=== PATIENT | female | born 1960 | race Caucasian/White ===

== ENCOUNTER 2020-03-07 19:37 | Emergency (ER) | payer MEDICAID, SELFPAY ==
[2020-03-07 19:43] VITALS: BP 114/60; PULSE 74; RESP 16; TEMP 37; O2SAT 99; BMI 37.4
--- NOTE | 2020-03-07 20:03 | ED_ITS ---
HPI - General Adult General Chief complaint: General Medical Stated complaint: SOB,HOT FLASHES,BACK PAIN Time Seen by Provider: 03/07/20 20:02 Source: patient Mode of arrival: ambulatory Limitations: no limitations History of Present Illness HPI narrative: patient with no significant past medical history no recent COVID exposure history of mild asthma and fibromyalgia without any cardiac issues complaining of shortness of breath for last Lovenox shortness of breath is very subjective saturating 98% at room air on arrival also complaining of upper back pain. Patient was in not any distress patient denies any cough /fever/chills Related Data Allergies Allergy/AdvReac Type Severity Reaction Status Date / Time morphine [MORPHINE] Allergy Intermediate PALPITATIONS, Unverified 01/27/20 16:39 tachicardia quetiapine [Seroquel] Allergy Unknown Verified 04/21/19 00:00 orphenadrine [ORPHENADRINE] AdvReac Intermediate RAPID Unverified 01/27/20 16:39 HEART RATE From SEROQUEL Allergy Intermediate ANXIOUS Uncoded 01/27/20 16:39 Pt states no food allergies Allergy Unknown Uncoded 09/29/18 00:00 Review of Systems Review of Systems: REVIEW OF SYSTEMS: Pertinent positives and negatives are stated above in the history. GEN: no fevers, chills, fatigue HEENT: no nasal congestion, sore throat, ear pain NEURO: no headache no focal weakness CV: no chest pain, palpitations, LE edema ABD: no abdominal pain, nausea, vomiting, diarrhea : no dysuria, urgency, frequency SKIN: no rash ROS otherwise negative x 10 PMFSH Past Medical History Medical History Asthma Depression Diabetes 1.5, managed as type 2 Fibromyalgia Surgical History Gastric bypass status for obesity Social History Social History Advance Directives: No Advance Directives Information Provided: No Physical Exam Vital Signs: Vital Signs: Vital Signs Temp Pulse Resp BP Pulse Ox 03/07/20 19:43 98.6 F 74 16 114/60 99 Body Mass Index 37.4 VITAL SIGNS: Reviewed. GENERAL: Well developed, well nourished, in no acute distress. HEAD: Normocephalic/atraumatic, Posterior oropharynx was without edema, erythema or exudate. EYES: PERRLA, EOMI intact without pain, no nystagmus/pallor/icterus noted EARS: Ext canals without abnormality, TMs non-bulging and non-erythematous NOSE: Nares patent bilateral OROPHARYNX: no oral lesions noted, posterior pharynx clear and non-erythematous without noted tonsillar enlargement/erythema/exudates NECK: Supple, no adenopathy LUNGS: Normal breath sounds. No adventitious sounds or accessory muscle use CARDIOVASCULAR: Regular rate and rhythm without noted murmurs, no JVD or lower extremity edema. ABDOMEN: Soft, non-tender, non-distended with bowel sounds. No rigidity. No guarding. No palpable masses or hernias noted MUSCULOSKELETAL: No tenderness, deformities, or effusions noted on gross inspection. EXTREMITIES: No cyanosis, clubbing or edema. SKIN: Inspection of the skin reveals no rashes, ulcerations, jaundice, pallor, or petechiae NEUROLOGIC: Alert and oriented x 3. Strength and sensation to light touch were grossly intact x 4. Course Course Course Narrative: patient lungs clear workup is negative chest x-ray negative for any fluid or infiltrate. COVID-19 was done will discharge patient home likely stable asthma with anxiety Medical Decision Making Lab Data Result diagrams: 03/07/20 21:26 03/07/20 21:26 Labs: Lab Results 03/07/20 03/07/20 03/07/20 Range/Units 21:26 21:26 21:27 WBC 7.6 (4.8-10.8) X10*3/uL RBC 4.14 L (4.20-5.50) X10*6/uL Hgb 11.1 L (12.0-16.0) g/dl Hct 35.8 L (37-47) % MCV 86.5 (80-98) fL MCH 26.8 L (27.0-33.0) pg MCHC 31.0 (31.0-35.0) g/dl RDW 15.3 (11.0-16.0) % Plt Count 209 (160-400) X10*3/uL MPV 10.3 (9.4-12.3) fL Immature Gran % (Auto) 0.7 H (0.0-0.4) % Neut % (Auto) 56.9 (45-73) % Lymph % (Auto) 32.9 (20-40) % [place] % (Auto) 7.7 (2-11) % Eos % (Auto) 1.5 (0-4) % Baso % (Auto) 0.3 (0-2) % Lymph # (Auto) 2.5 (1.2-4.9) X10*3/uL [place] # (Auto) 0.6 (0.1-1.2) X10*3/uL Eos # (Auto) 0.1 (0.0-0.4) X10*3/uL Baso # (Auto) 0.0 (0.0-0.2) X10*3/uL Abs Immat Gran (auto) 0.05 H (0.00-0.03) X10*3/uL Absolute Neuts (auto) 4.3 (2.0-8.3) X10*3/uL Absolute Nucleated RBC 0.000 (0.0-0.012) X10*3/uL Nucleated RBC % (auto) 0.0 (0.0-0.2) /100WBC Sodium 140 (135-145) mmol/L Potassium 4.8 (3.3-5.1) mmol/l Chloride 103 (96-108) mmol/L Carbon Dioxide 28 (22-29) mmol/L Anion Gap 14 (12-20) BUN 16 (9-16) mg/dL Creatinine 0.81 (0.5-1.4) mg/dL Estim Creat Clear Calc 89.6 Estimated GFR > 60 Random Glucose 85 (60-115) mg/dL Calcium 8.2 L (8.4-10.2) mg/dL B-Natriuretic Peptide < 10 (<100) pg/mL Discharge Plan Discharge Clinical Impression: Asthma Patient Disposition: Home, Self-Care Instructions: Asthma (ED) Additional Instructions: continue your inhaler and rest at home. We did COVID-19 testing new report will come and 2-3 days and will inform you, keep social distancing for now Interventions: ED Discharge Assessment Last Done: 03/07/20 22:18 Discharge Date/Time: 03/07/20 22:19
--- NOTE | 2020-03-07 20:11 | XR_ITS ---
EXAMINATION: XR CHEST CLINICAL INFORMATION: Shortness of breath COMPARISON: 02/08/2020 TECHNIQUE: Frontal view of the chest was obtained. FINDINGS: Again seen is some minimal atelectasis left lung base along with anterior cervical fusion. No other significant abnormality is noted involving the heart, lungs, mediastinum, bony thorax or soft tissues. XR/XR chest 1V IMPRESSION: No acute intrathoracic disease
[2020-03-07 21:34] LABS: MANUAL DIFF FLAG NO
[2020-03-07 21:35] LABS: Basophils Percent Auto 0.3 % (0-2); Eosinophils Absolute Auto 0.1 X10*3/uL (0.0-0.4); Eosinophils Percent Auto 1.5 % (0-4); Hematocrit 35.8 % (37-47); Hemoglobin 11.1 g/dl (12.0-16.0); Imm Gran Abs Auto 0.05 X10*3/uL (0.00-0.03); Imm Gran Pct Auto 0.7 % (0.0-0.4); Lymphocytes Absolute Auto 2.5 X10*3/uL (1.2-4.9); Lymphocytes Percent Auto 32.9 % (20-40); Mean Corpuscular Hemoglobin 26.8 pg (27.0-33.0); Mean Corpuscular Volume 86.5 fL (80-98); Mean Platelet Volume 10.3 fL (9.4-12.3); Monocytes Absolute Auto 0.6 X10*3/uL (0.1-1.2); Monocytes Percent Auto 7.7 % (2-11); Neutrophils Absolute Auto 4.3 X10*3/uL (2.0-8.3); Neutrophils Percent Auto 56.9 % (45-73); Platelet Count 209 X10*3/uL (160-400); Red Blood Count 4.14 X10*6/uL (4.20-5.50); Red Cell Distribution Width 15.3 % (11.0-16.0); White Blood Count 7.6 X10*3/uL (4.8-10.8)
[2020-03-07 21:59] LABS: Anion Gap 14 (12-20); Blood Urea Nitrogen 16 mg/dL (9-16); Calcium 8.2 mg/dL (8.4-10.2); Carbon Dioxide 28 mmol/L (22-29); Chloride 103 mmol/L (96-108); Creatinine Clr Calc Pharmacy 89.6; Estimated Glomerular Filt Rate > 60; Glucose Random 85 mg/dL (60-115); Potassium 4.8 mmol/l (3.3-5.1); Sodium 140 mmol/L (135-145)
[2020-03-07 22:08] LABS: B Type Natriuretic Peptide < 10 pg/mL (<100)
== END 2020-03-07 22:19 | disposition home or self-care (01) ==
PROVIDERS: Emergency Provider Internal Medicine
DX: J45.909 Unspecified asthma, uncomplicated (principal); M54.5 Low back pain; M79.7 Fibromyalgia; Z20.828 Contact with and (suspected) exposure to other viral communicable diseases; Z79.899 Other long term (current) drug therapy
CPT/HCPCS: 36415; 71045; 80048; 83880; 85025; 87635; 99283

== ENCOUNTER 2020-03-21 15:41 | Outpatient (REF) | payer MEDICAID, SELFPAY ==
--- NOTE | 2020-03-21 15:47 | MM_ITS ---
EXAMINATION: MM SCREENING DIGITAL BREAST TOMOSYNTHESIS, BILATERAL CLINICAL INFORMATION: Screening. Asymptomatic. The lifetime risk of breast cancer based on the Tyrer-Cuzick Model is 7%. COMPARISON: Mammography: 02/11/2019, 01/20/2018 TECHNIQUE: Digital breast tomosynthesis is performed in both the craniocaudal and mediolateral oblique views along with computer-aided detection (CAD). Synthesized 2D images are generated from the tomosynthesis. FINDINGS: The breasts are almost entirely fatty (ACR BI-RADS breast composition Category a). There are no significant masses, abnormal calcifications, or other abnormalities. The axilla and skin contours are unremarkable. No significant changes. MM/MM tomosynthesis screening BI IMPRESSION: No mammographic evidence of malignancy. ASSESSMENT: BI-RADS 1: Negative RECOMMENDATION: Routine annual mammography screening. This patient's information was entered into a reminder system with a target due date for their next mammogram.
== END 2020-03-21 15:42 | disposition home or self-care (01) ==
LOC: HO.MAMMO 15:41
PROVIDERS: PCP Internal Medicine; Visit Provider Internal Medicine
DX: Z12.31 Encounter for screening mammogram for malignant neoplasm of breast (principal)
CPT/HCPCS: 77063; 77067

== ENCOUNTER 2020-05-10 17:06 | Emergency (ER) | payer MEDICAID, SELFPAY ==
--- NOTE | 2020-05-10 19:22 | ED.GENADULT ---
HPI - General Adult General Chief complaint: Urogenital-Female Stated complaint: ?UTI Time Seen by Provider: 05/10/20 19:19 Source: patient Mode of arrival: ambulatory Limitations: no limitations History of Present Illness HPI narrative: 60-year-old female with past medical history of asthma, depression, diabetes, fibromyalgia here with urinary urgency and hesitancy for the last 2 weeks. Patient denies any fevers, chills, nausea, vomiting. She has some low back pain and some suprapubic pressure. No frequency or dysuria or hematuria. No vaginal discharge. Onset (ago): week(s) (2) Location: back Radiation: non-radiation Severity: mild Quality: other (pressure ) Pain Consistency: constant Relieving factors: other (urinating ) Associated symptoms: denies other symptoms Treatments prior to arrival: none Related Data Allergies Allergy/AdvReac Type Severity Reaction Status Date / Time morphine [MORPHINE] Allergy Intermediate PALPITATIONS, Verified 05/10/20 19:31 tachicardia quetiapine [Seroquel] Allergy Unknown Unknown Verified 05/10/20 19:31 orphenadrine [ORPHENADRINE] AdvReac Intermediate RAPID Verified 05/10/20 19:31 HEART RATE From SEROQUEL Allergy Intermediate ANXIOUS Uncoded 01/27/20 16:39 Review of Systems Review of Systems: Yes all other systems are reviewed and are negative Constitutional: Constitutional: Reports no additional constitutional complaints, Denies body ache(s), Denies chills, Denies fever(s), Denies headache(s) and Denies weakness Eyes: Eyes: Reports no additional eye complaints and Denies change in vision ENT: Reports system reviewed and no additional complaints, except as documented, Denies dizziness, Denies headache(s), Denies nasal congestion, Denies nasal discharge and Denies neck pain Cardiovascular: Cardiovascular: Reports no additional cardiovascular complaints, Denies chest pain, Denies leg edema and Denies dyspnea Respiratory: Respiratory: Reports no additional respiratory complaints, Denies cough and Denies dyspnea Gastrointestinal: Gastrointestinal: Reports no additional gastrointestinal complaints, Denies abdominal pain, Denies diarrhea, Denies nausea and Denies vomiting Genitourinary: Genitourinary: Reports no additional female genitourinary complaints, Denies dysuria, Denies pelvic pain, Denies flank pain, Denies urinary incontinence, Reports urinary hesitancy, Reports urinary urgency, Denies vaginal discharge, Denies vaginal odor and Denies vaginal pruritus Musculoskeletal: Musculoskeletal: Reports no additional musculoskeletal complaints, Reports back pain, Denies arthralgias, Denies joint swelling, Denies neck pain, Denies numbness and Denies tingling Integumentary/Breasts: Skin/Breast: Reports system reviewed and no additional complaints, except as docu and Denies rash Neurologic: Reports system reviewed and no additional complaints, except as documented, Denies Abnormal speech present, Denies dizziness, Denies headache(s), Denies numbness, Denies tingling and Denies weakness [facility] Past Medical History Attestation statement: The following information was validated with the patient. Source: old records reviewed and nursing notes reviewed Medical History Asthma Depression Diabetes 1.5, managed as type 2 Fibromyalgia Surgical History Gastric bypass status for obesity Social History Social History Alcohol intake: never Smoked in Last 30 Days: No Use of substances other than those prescribed or required for medical reasons: No Advance Directives: No Advance Directives Information Provided: Yes Physical Exam Vital Signs: Vital Signs: Last Vital Signs Temp 98.7 F 05/10/20 19:28 Pulse 81 05/10/20 19:28 Resp 18 05/10/20 19:28 BP 128/79 05/10/20 19:28 Pulse Ox 98 05/10/20 19:28 Body Mass Index 36.3 Const: General: cooperative, healthy appearing, comfortable and no acute distress Orientation/consciousness: patient oriented x3 Limitations: no limitations HENMT: Head: Yes normal to inspection Ears: hearing grossly normal bilaterally General nose exam: Normal external nose present Face and sinus: Yes normal facial exam Mouth: Normal oral and palatal mucosa present Throat: Yes posterior oropharynx normal Eyes: General: appearance normal, both eyes and all related structures Pupils: Equal, round and reactive pupils present Neck: Neck: Yes normal visual inspection Chest: Chest palpation & inspection: normal inspection of the chest Resp: Effort & Inspection: normal respiratory effort Auscultation: clear to auscultation bilaterally Cardio: Rate: regular rate Rhythm: regular rhythm Peripheral pulses: Peripheral pulses 2+ throughout GI: Inspection: Yes normal to inspection Palpation (GI): Soft to palpation and Tenderness to palpation present (GI) (Mild) suprapubicly Auscultation: normal bowel sounds Back/Spine/Pelvis: Other: Lower lumbar soft tissue tenderness. No midline tenderness, step-offs or deformities Thoracic/Lumbar Spine: thoracic and lumbar spine normal to inspection Skin: General skin exam: no rashes or lesions noted Neuro: General: patient oriented x3, no focal motor deficits and normal sensation to monofilament Cranial nerves: Yes Equal, round and reactive pupils present Cognition (Neuro): normal cognition Speech: No Abnormal speech present Gait exam (Neuro): Normal gait present Motor exam (neuro): 5/5 motor strength present throughout Extrem: General: Yes normal to inspection Course Course Course Narrative: 60-year-old female here with urinary urgency and hesitancy for the last 2 weeks with associated suprapubic pressure and low back pain. Will check UA, PVR. 1950-UA unremarkable. Discussed findings with patient. May be from weakened pelvic floor muscles, recommended f/u with [facility] outpatient. Reviewed worrisome signs and symptoms of when to return to the emergency department. Comfortable discharge home. Medical Decision Making Medical Records Medical records reviewed: Yes I reviewed the patient's medical records. Lab Data Lab results reviewed: Yes I reviewed the patient's lab results. Labs: Lab Results 05/10/20 Range/Units 19:32 Urine Color YELLOW Urine Appearance CLEAR Urine pH 8.0 (5.0-8.0) Ur Specific [place] 1.020 (1.005-1.025) Urine Protein NEG (NEG-TRACE) MG/DL Urine Glucose (UA) NEG (NEG) MG/DL Urine Ketones NEG (NEG) MG/DL Urine Blood NEG (NEG) Urine Nitrite NEG (NEG) Ur Leukocyte Esterase NEG (NEG) Discharge Plan Discharge Clinical Impression: Encounter for medical screening examination Patient Disposition: Home, Self-Care Instructions: Normal Exam (ED) Additional Instructions: Your urine did not show any signs of infection. Sometimes woman get older their pelvic muscles are not as strong and they can have a urinary symptoms of urgency and frequency and hesitancy. You should follow-up with your logistics lead doctor for further evaluation and you may need to see a specialist for this. Referrals: Elizabeth Dunn MD [Primary Care Provider] - 2 days Interventions: ED Discharge Assessment Last Done: 05/10/20 20:02 Discharge Date/Time: 05/10/20 20:03
[2020-05-10 19:28] VITALS: BP 128/79; PULSE 81; RESP 18; TEMP 37.1; O2SAT 98; BMI 36.3
[2020-05-10 19:41] LABS: Glucose Urine UA NEG (NEG); Leukocyte Esterase Urine NEG (NEG); Nitrite Urine NEG (NEG); Urine Blood NEG (NEG); Urine Ketones NEG (NEG); Urine Protein NEG (NEG-TRACE)
[2020-05-10 19:42] LABS: Appearance Urine CLEAR; Color Urine YELLOW
[2020-05-11 00:20] LABS: Glucose, Whole Blood 86 mg/dL (60-115)
== END 2020-05-10 20:03 | disposition home or self-care (01) ==
PROVIDERS: Nurse Practitioner Family; Emergency Provider Emergency Medicine; PCP Internal Medicine
DX: Z71.1 Person with feared health complaint in whom no diagnosis is made (principal); M54.5 Low back pain; E11.9 Type 2 diabetes mellitus without complications
CPT/HCPCS: 81003; 82947; 99283; 99284

== ENCOUNTER 2020-05-13 14:57 | Emergency (ER) | payer MEDICAID, SELFPAY ==
[2020-05-13 15:26] VITALS: BP 119/72; PULSE 95; RESP 20; TEMP 36.8; O2SAT 95; BMI 37.4
--- NOTE | 2020-05-13 17:45 | ED_ITS ---
HPI - Female Genitourinary General Chief complaint: Urogenital-Female Stated complaint: urinary problem Time Seen by Provider: 05/13/20 16:44 Source: patient Mode of arrival: ambulatory History of Present Illness HPI Narrative: 60-year-old female with past medical history of asthma, depression, diabetes, fibromyalgia presenting to ED c/o dysuria, lower abdominal/suprapubic discomfort and low back apin x2 weeks. Reports feels like she is unable to completely empty bladder and is only urinating a few drops. Was seen in ED on 05/10 for similar sx and had negative UA. Denies fever, N/V/D/C, hematuria, D/C, vaginal bleeding/discharge Related Data Previous Rx's Medication Instructions Recorded phenazopyridine [Pyridium] 200 mg PO TID #6 tab 05/13/20 Allergies Allergy/AdvReac Type Severity Reaction Status Date / Time morphine [MORPHINE] Allergy Intermediate PALPITATIONS, Verified 05/13/20 15:28 tachicardia quetiapine [Seroquel] Allergy Unknown Unknown Verified 05/13/20 15:28 orphenadrine [ORPHENADRINE] AdvReac Intermediate RAPID Verified 05/13/20 15:28 HEART RATE From SEROQUEL Allergy Intermediate ANXIOUS Uncoded 05/13/20 15:28 Review of Systems Review of Systems: Constitutional: No Weight loss, No Fever, + Chills Cardiovascular: No Chest Pain, No SOB Respiratory: No Cough, No Sputum Gastrointestinal: No Nausea, No Vomiting, No Diarrhea, No Constipation, + Abdominal pain Genitourinary: No irregular bleeding, No Dysuria, No Urinary Frequency, No Hematuria, + Flank Pain, + Urinary Flow Changes, No Hesitancy Musculoskeletal: No joint pain, No Myalgias, No Joint Swelling Skin: No Skin Lesions, No rash Yes all other systems are reviewed and are negative [facility] Past Medical History Attestation statement: The following information was validated with the patient. Medical History Asthma Depression Diabetes 1.5, managed as type 2 Fibromyalgia Surgical History Gastric bypass status for obesity Social History Social History Alcohol intake: never Smoking Status: Never smoker Use of substances other than those prescribed or required for medical reasons: No Advance Directives: No Advance Directives Information Provided: Yes Physical Exam Vital Signs: Vital Signs: Last Vital Signs Temp 98.3 F 05/13/20 18:00 Pulse 71 05/13/20 18:00 Resp 18 05/13/20 18:00 BP 111/72 05/13/20 18:00 Pulse Ox 96 05/13/20 18:00 Body Mass Index 37.4 Const: General: cooperative and healthy appearing Orientation/consciousness: patient oriented x3 Limitations: no limitations HENMT: Head: Yes normal to inspection Ears: hearing grossly normal bilaterally General nose exam: Normal external nose present Face and sinus: Yes normal facial exam Eyes: General: appearance normal, both eyes and all related structures EOM: EOMs intact bilaterally Neck: Neck: Yes normal visual inspection Resp: Effort & Inspection: normal respiratory effort Cardio: Rate: regular rate GI: Inspection: Yes normal to inspection Palpation (GI): Soft to palpation, nontender, no guarding and not rigid : General: Yes CVA tenderness on the right Skin: Rashes: no rashes Wounds: no wounds Neuro: General: patient oriented x3 Gait exam (Neuro): Normal gait present Extrem: General: Yes normal to inspection Course Course Course Narrative: * K+ 5.5 but slightly hemolyzed > will give 15gm Kayexalate * Labs otherwise unremarkable, UA negative * 2026--. Mild bilateral renal cortical thinning. No hydro. No renal, ureteral or urinary bladder calculi. Normal appendix. > lab results discussed with patient. Likely cystitis. Will initiate pyridium and have patient follow-up with PCP. Worrisome signs and symptoms discussed. She verbalized understanding and feels safe for discharge home MDM - Female Genitourinary Lab Data Result diagrams: 05/13/20 18:24 05/13/20 18:24 Labs: Lab Results 05/13/20 05/13/20 05/13/20 Range/Units 18:24 18:24 18:24 WBC 7.7 (4.8-10.8) X10*3/uL RBC 4.47 (4.20-5.50) X10*6/uL Hgb 12.1 (12.0-16.0) g/dl Hct 38.6 (37-47) % MCV 86.4 (80-98) fL MCH 27.1 (27.0-33.0) pg MCHC 31.3 (31.0-35.0) g/dl RDW 15.5 (11.0-16.0) % Plt Count 264 D (160-400) X10*3/uL MPV 10.8 (9.4-12.3) fL Immature Gran % (Auto) 0.7 H (0.0-0.4) % Neut % (Auto) 61.5 (45-73) % Lymph % (Auto) 28.9 (20-40) % [place] % (Auto) 7.6 (2-11) % Eos % (Auto) 1.0 (0-4) % Baso % (Auto) 0.3 (0-2) % Lymph # (Auto) 2.2 (1.2-4.9) X10*3/uL [place] # (Auto) 0.6 (0.1-1.2) X10*3/uL Eos # (Auto) 0.1 (0.0-0.4) X10*3/uL Baso # (Auto) 0.0 (0.0-0.2) X10*3/uL Abs Immat Gran (auto) 0.05 H (0.00-0.03) X10*3/uL Absolute Neuts (auto) 4.7 (2.0-8.3) X10*3/uL Absolute Nucleated RBC 0.000 (0.0-0.012) X10*3/uL Nucleated RBC % (auto) 0.0 (0.0-0.2) /100WBC Hold Blue Top SEE NOTE Sodium 138 (135-145) mmol/L Potassium 5.5 H (3.3-5.1) mmol/l Chloride 104 (96-108) mmol/L Carbon Dioxide 23 (22-29) mmol/L Anion Gap 17 (12-20) BUN 18 H (9-16) mg/dL Creatinine 0.86 (0.5-1.4) mg/dL Estim Creat Clear Calc 84.4 Estimated GFR > 60 Random Glucose 91 (60-115) mg/dL Calcium 8.5 (8.4-10.2) mg/dL Magnesium 2.3 (1.6-2.6) mg/dL Total Bilirubin < 0.2 (0.0-1.0) mg/dL Direct Bilirubin < 0.2 (0.0-0.5) mg/dL AST 20 (5-31) U/L ALT 16 (0-31) U/L Alkaline Phosphatase 53 (39-117) U/L Total Protein 7.3 (6.5-8.0) g/dL Albumin 4.2 (3.5-5.0) g/dL Lipase 30 (8-78) U/L Urine Color Urine Appearance Urine pH (5.0-8.0) Ur Specific [place] (1.005-1.025) Urine Protein (NEG-TRACE) MG/DL Urine Glucose (UA) (NEG) MG/DL Urine Ketones (NEG) MG/DL Urine Blood (NEG) Urine Nitrite (NEG) Ur Leukocyte Esterase (NEG) 05/13/20 05/13/20 Range/Units 18:24 19:21 WBC (4.8-10.8) X10*3/uL RBC (4.20-5.50) X10*6/uL Hgb (12.0-16.0) g/dl Hct (37-47) % MCV (80-98) fL MCH (27.0-33.0) pg MCHC (31.0-35.0) g/dl RDW (11.0-16.0) % Plt Count (160-400) X10*3/uL MPV (9.4-12.3) fL Immature Gran % (Auto) (0.0-0.4) % Neut % (Auto) (45-73) % Lymph % (Auto) (20-40) % [place] % (Auto) (2-11) % Eos % (Auto) (0-4) % Baso % (Auto) (0-2) % Lymph # (Auto) (1.2-4.9) X10*3/uL [place] # (Auto) (0.1-1.2) X10*3/uL Eos # (Auto) (0.0-0.4) X10*3/uL Baso # (Auto) (0.0-0.2) X10*3/uL Abs Immat Gran (auto) (0.00-0.03) X10*3/uL Absolute Neuts (auto) (2.0-8.3) X10*3/uL Absolute Nucleated RBC (0.0-0.012) X10*3/uL Nucleated RBC % (auto) (0.0-0.2) /100WBC Hold Blue Top Sodium (135-145) mmol/L Potassium (3.3-5.1) mmol/l Chloride (96-108) mmol/L Carbon Dioxide (22-29) mmol/L Anion Gap (12-20) BUN (9-16) mg/dL Creatinine (0.5-1.4) mg/dL Estim Creat Clear Calc Estimated GFR Random Glucose (60-115) mg/dL Calcium (8.4-10.2) mg/dL Magnesium (1.6-2.6) mg/dL Total Bilirubin (0.0-1.0) mg/dL Direct Bilirubin (0.0-0.5) mg/dL AST (5-31) U/L ALT (0-31) U/L Alkaline Phosphatase (39-117) U/L Total Protein (6.5-8.0) g/dL Albumin (3.5-5.0) g/dL Lipase Cancelled (8-78) U/L Urine Color YELLOW Urine Appearance CLEAR Urine pH 8.0 (5.0-8.0) Ur Specific [place] 1.020 (1.005-1.025) Urine Protein NEG (NEG-TRACE) MG/DL Urine Glucose (UA) NEG (NEG) MG/DL Urine Ketones NEG (NEG) MG/DL Urine Blood NEG (NEG) Urine Nitrite NEG (NEG) Ur Leukocyte Esterase NEG (NEG) Discharge Plan Discharge Clinical Impression: Cystitis Patient Disposition: Home, Self-Care Instructions: Interstitial Cystitis (ED) Additional Instructions: Your blood work, urine, and CT scan were reassuring You likely have cystitis Pyridium will help with the pain Follow-up with her doctor Pain persists or worsens, becomes unbearable, your unable to urinate, develops fever, nausea, or vomiting return to the ED Prescriptions: New phenazopyridine [Pyridium] 200 mg tablet 200 mg PO TID Qty: 6 RF: 0 Referrals: Elizabeth Dunn MD [Primary Care Provider] - 2 days
[2020-05-13 18:00] VITALS: BP 111/72; PULSE 71; RESP 18; TEMP 36.8; O2SAT 96
--- NOTE | 2020-05-13 18:27 | PC.NURSE ---
IV INSERTED, LABS DRAWN, PT REQ PAIN MEDICATION-WILL NOTIFY PROVIDER
[2020-05-13 18:32] LABS: Basophils Percent Auto 0.3 % (0-2); Eosinophils Absolute Auto 0.1 X10*3/uL (0.0-0.4); Hematocrit 38.6 % (37-47); Hemoglobin 12.1 g/dl (12.0-16.0); Imm Gran Abs Auto 0.05 X10*3/uL (0.00-0.03); Imm Gran Pct Auto 0.7 % (0.0-0.4); Lymphocytes Absolute Auto 2.2 X10*3/uL (1.2-4.9); Lymphocytes Percent Auto 28.9 % (20-40); MANUAL DIFF FLAG NO; Mean Corpuscular HGB Conc 31.3 g/dl (31.0-35.0); Mean Corpuscular Hemoglobin 27.1 pg (27.0-33.0); Mean Corpuscular Volume 86.4 fL (80-98); Mean Platelet Volume 10.8 fL (9.4-12.3); Monocytes Absolute Auto 0.6 X10*3/uL (0.1-1.2); Monocytes Percent Auto 7.6 % (2-11); Neutrophils Absolute Auto 4.7 X10*3/uL (2.0-8.3); Neutrophils Percent Auto 61.5 % (45-73); Platelet Count 264 X10*3/uL (160-400); Red Blood Count 4.47 X10*6/uL (4.20-5.50); Red Cell Distribution Width 15.5 % (11.0-16.0); White Blood Count 7.7 X10*3/uL (4.8-10.8)
[2020-05-13 18:57] LABS: Alanine Aminotransferase 16 U/L (0-31); Albumin Level 4.2 g/dL (3.5-5.0); Alkaline Phosphatase 53 U/L (39-117); Anion Gap 17 (12-20); Aspartate Amino Transferase 20 U/L (5-31); Bilirubin Direct < 0.2 mg/dL (0.0-0.5); Bilirubin Total < 0.2 mg/dL (0.0-1.0); Blood Urea Nitrogen 18 mg/dL (9-16); Calcium 8.5 mg/dL (8.4-10.2); Carbon Dioxide 23 mmol/L (22-29); Chloride 104 mmol/L (96-108); Creatinine Clr Calc Pharmacy 84.4; Estimated Glomerular Filt Rate > 60; Glucose Random 91 mg/dL (60-115); Lipase 30 U/L (8-78); Magnesium 2.3 mg/dL (1.6-2.6); Potassium 5.5 mmol/l (3.3-5.1); Sodium 138 mmol/L (135-145); Total Protein 7.3 g/dL (6.5-8.0)
--- NOTE | 2020-05-13 19:14 | CT_ITS ---
EXAMINATION: CT ABDOMEN AND PELVIS WITHOUT CONTRAST CLINICAL INFORMATION: Right flank pain and dysuria. COMPARISON: CT of the abdomen and pelvis dated 05/30/2016. TECHNIQUE: Multidetector volumetric imaging was performed from the superior aspect of the liver through the pubic symphysis. Sagittal and coronal reformatted images were obtained on the technologist's workstation. This CT examination was performed using dose optimization techniques as appropriate, variously including the following: *Automated exposure control *Adjustment of mA and/or kV according to patient size (this includes techniques or standardized protocols for targeted exams where dose is matched to indication/reason for exam; i.e. extremities or head) *Use of iterative reconstruction technique DLP: 744 mGy-cm FINDINGS: LINES AND TUBES: None. LOWER THORAX: Lung bases are clear. Heart is normal size. No pericardial effusion or thickening. HEPATOBILIARY: Liver is top normal in size measuring up to 18.5 cm craniocaudal.. Hepatic steatosis noted. Fatty sparing around the gallbladder. No focal hepatic lesions. The gallbladder is present and otherwise unremarkable. No biliary dilatation. SPLEEN: Punctate granulomata noted. PANCREAS: Mildly atrophic otherwise unremarkable. ADRENALS: Normal. KIDNEYS/URETERS: Mild bilateral cortical thinning. BLADDER: Normal.. PELVIC ORGANS: Uterus is absent. Vaginal cuff is normal. No adnexal mass. GI TRACT: Sequela of prior gastric bypass. No dilated or thick walled loops of bowel. The appendix is normal (3:54/89). PERITONEUM/RETROPERITONEUM AND MESENTERY: No free air or fluid. LYMPH NODES: No pathologically enlarged lymph nodes. VESSELS: Normal in caliber. BONES AND SOFT TISSUES: No aggressive osseous lesions. L2 level degenerative changes of the thoracal lumbar spine. L5-S1 degenerative disc disease. Right anterior thigh soft tissue nodule, nonspecific (3:81/89) measures up to 1.[address]/CT abdomen pelvis wo con IMPRESSION: Hepatic steatosis. Mild bilateral renal cortical thinning. No hydronephrosis. No renal, ureteral, or urinary bladder calculi. Normal appendix. Postsurgical changes of gastric bypass. Normal caliber small and large bowel.
[2020-05-13] MEDS: 0.9 % Sodium Chloride 1,000 ML 999 ML IVCONT (19:28)
[2020-05-13] MEDS: Acetaminophen 325 MG TABLET 650 MG PO (19:28)
[2020-05-13] MEDS: Sodium Polystyrene Sulfon/Sorb 15 GM/60 ML ORAL.SUSP PO (19:28)
--- NOTE | 2020-05-13 19:30 | PC.NURSE ---
pt medicated per order, urine obtained, pt requesting something to eat- per provider patient is to not eat- pt to go for ct scan- pt aware she is unable to eat at this time, will continue to monitor.
[2020-05-13 19:32] LABS: Glucose Urine UA NEG (NEG); Leukocyte Esterase Urine NEG (NEG); Nitrite Urine NEG (NEG); Urine Blood NEG (NEG); Urine Ketones NEG (NEG); Urine Protein NEG (NEG-TRACE)
[2020-05-13 19:33] LABS: Appearance Urine CLEAR; Color Urine YELLOW
--- NOTE | 2020-05-13 19:45 | PC.NURSE ---
pt to radiology
[2020-05-13 20:00] VITALS: BP 110/78; PULSE 74; RESP 18; TEMP 36.7; O2SAT 96
== END 2020-05-13 20:47 | disposition home or self-care (01) ==
PROVIDERS: Physician Assistant; Emergency Provider Emergency Medicine; PCP Internal Medicine
DX: N30.10 Interstitial cystitis (chronic) without hematuria (principal); E11.9 Type 2 diabetes mellitus without complications
CPT/HCPCS: 36415; 51798; 74176; 80048; 80076; 81003; 83690; 83735; 85025; 96360; 99284

== ENCOUNTER 2020-05-23 15:14 | Emergency (ER) | payer MEDICAID, SELFPAY ==
--- NOTE | 2020-05-23 17:58 | PC.NURSE ---
pt called x 2 in waiting room.
== END 2020-05-23 20:10 | disposition left against medical advice (07) ==
PROVIDERS: Emergency Provider Emergency Medicine
DX: G89.29 Other chronic pain (principal)
CPT/HCPCS: 99281

== ENCOUNTER 2020-06-26 07:12 | Outpatient (REF) | payer MEDICAID, SELFPAY ==
--- NOTE | ~2020-06-26 | MR_ITS ---
EXAMINATION: MR LUMBAR SPINE WITHOUT CONTRAST CLINICAL INFORMATION: Low back pain and left leg pain. COMPARISON: MRI scan of the lumbar spine 04/13/2014. TECHNIQUE: MRI of the lumbar spine was obtained using routine sequences without contrast. FINDINGS: VERTEBRAL BODIES AND PARASPINAL STRUCTURES: There is a mild levoscoliosis. There is a mild retrolisthesis of L5 on S1. There is narrowing of intervertebral disc height at L5-S1, which is worse compared to the prior study. There is loss of signal from this disc as well as from the disc at L4-L5. Vertebral body heights are maintained. No fractures are demonstrated. Overall, marrow signal is homogenous. The visualized retroperitoneal and pelvic structures are unremarkable. CONUS MEDULLARIS AND CAUDA EQUINA: Normal, terminating at the level of L1. The lower thoracic spinal cord appears normal. The cauda equina nerve roots and filum terminale appear normal. SPINAL LEVELS: L1-L2: There is moderate bilateral facet arthropathy. The study redemonstrates a small left paracentral disc protrusion which there is not significantly changed compared to prior imaging. There is mild distortion of the ventral thecal sac to the left of midline. There is no central stenosis. The neural foramina are patent bilaterally. L2-L3: There is moderate bilateral facet arthropathy. Disc contour is normal. There is no central stenosis or foraminal narrowing. L3-L4: There is moderate bilateral facet arthropathy. There is a diffuse disc bulge with inferior foraminal disc protrusions, without exiting nerve root impingement. There is no central stenosis. L4-L5: There is moderate bilateral facet arthropathy with ligamenta flava hypertrophy. There is a broad-based posterior disc protrusion extending into the inferior neural foramina bilaterally but without definite exiting nerve root impingement. The protrusion is slightly more prominent to the right of midline. The findings appear stable. L5-S1: There is moderate to severe bilateral facet arthropathy with ligamenta flava hypertrophy and facet joint effusions. There is a posterior disc protrusion extending into the neural foramina bilaterally, and there is impingement on the exiting right L5 nerve root, similar compared to prior imaging. There is a broad-based protruded component diffusely, slightly more prominent on the left and there is narrowing of the bilateral subarticular recesses. There is impingement on the traversing S1 nerve roots bilaterally. The protrusion is not as prominent compared to the prior study. There is no central stenosis. MR/MR lumbar spine wo con IMPRESSION: 1. There is facet arthropathy at L5-S1 is a posterior disc protrusion/extrusion. The protrusion extends into the right neural foramen and there is impingement on the exiting right L5 nerve root. The extruded component on the left is decreased compared to the prior study, the distal impingement on the traversing S1 nerve roots bilaterally. There is no central stenosis. 2. At L1-L2 there has been interval change in the small left paracentral disc protrusion. There is no central stenosis or foraminal narrowing. 3. Stable facet arthropathy and spondylosis at L4-L5 with a small right paracentral disc protrusion.
== END 2020-06-26 07:13 | disposition home or self-care (01) ==
LOC: HO.MRI 07:12
PROVIDERS: Visit Provider Nurse Practitioner Women's Health
DX: M54.16 Radiculopathy, lumbar region (principal)
CPT/HCPCS: 72148

== ENCOUNTER 2020-07-10 08:45 | Outpatient (REF) | payer MEDICAID, SELFPAY ==
--- NOTE | ~2020-07-10 | XR_ITS ---
EXAMINATION: XR HIP, LEFT CLINICAL INFORMATION: Pain left hip and groin region. COMPARISON: None TECHNIQUE: Two views of the left hip. FINDINGS: There is normal symmetry of SI joints and bilateral hip joints. No visible fracture involving the pelvic bones seen. There are multiple phleboliths in the left pelvis. AP and frog-leg views of left hip reveal no visible fracture, dislocation or subluxation. No bony erosive changes or loose bodies seen. The soft tissues are normal. XR/XR hip LT w PEL1V IMPRESSION: Unremarkable AP pelvis. Unremarkable left hip joint exam.
== END 2020-07-10 08:46 | disposition home or self-care (01) ==
LOC: HO.XRAY 08:45
PROVIDERS: Visit Provider Nurse Practitioner Women's Health
DX: M25.552 Pain in left hip (principal)
CPT/HCPCS: 73502

== ENCOUNTER → 2020-07-17 11:26 | Outpatient (BNVA) | payer MEDICAID, SELFPAY | PROVIDERS: Visit Provider Obstetrics & Gynecology | DX: R10.32 Left lower quadrant pain (principal) | CPT/HCPCS: 99212 ==

== ENCOUNTER 2020-10-07 13:24 | Emergency (ER) | payer MEDICAID, SELFPAY ==
[2020-10-07 13:29] VITALS: BP 124/61; PULSE 86; RESP 18; TEMP 36.1; O2SAT 97; BMI 30.4
--- NOTE | 2020-10-07 13:45 | PC.NURSE ---
speaks in full sentences. holding oral secretions without any issues.
--- NOTE | 2020-10-07 15:15 | ED_ITS ---
HPI - General Adult General Chief complaint: General Medical Stated complaint: REACTION TO COVID VACINE THROAT BURNING ITCHY Time Seen by Provider: 10/07/20 15:10 Source: patient Mode of arrival: ambulatory Limitations: no limitations History of Present Illness HPI narrative: 60-year-old female with a past medical history of, depression, diabetes here with itching rash since she received her COVID vaccine on September 15. Patient told me after she received the 1st vaccine she had no symptoms. She tells me since receiving the 2nd vaccine she feels like she has a rash on her arms and legs and general region which is very itchy. No pain. No fevers or chills. No difficulty breathing, sore throat, vomiting, diarrhea, abdominal cramping. Related Data Previous Rx's Medication Instructions Recorded phenazopyridine [Pyridium] 200 mg PO TID #6 tab 05/13/20 cetirizine 10 mg PO DAILY #30 tab 10/07/20 hydroxyzine HCl 25 mg PO TID PRN #10 tab 10/07/20 prednisone 40 mg PO DAILY #10 tab 10/07/20 Allergies Allergy/AdvReac Type Severity Reaction Status Date / Time morphine [MORPHINE] Allergy Intermediate PALPITATIONS, Verified 07/17/20 11:27 tachicardia quetiapine [Seroquel] Allergy Unknown Unknown Verified 07/17/20 11:27 orphenadrine [ORPHENADRINE] AdvReac Intermediate RAPID Verified 07/17/20 11:27 HEART RATE From SEROQUEL Allergy Intermediate ANXIOUS Uncoded 07/17/20 11:27 Review of Systems Review of Systems: Yes all other systems are reviewed and are negative Constitutional: Constitutional: Reports no additional constitutional complaints, Denies body ache(s), Denies chills, Denies fever(s), Denies headache (s) and Denies weakness Eyes: Eyes: Reports no additional eye complaints and Denies change in vision ENT: Reports system reviewed and no additional complaints, except as documented, Denies dizziness, Denies headache(s), Denies nasal congestion, Denies nasal discharge and Denies neck pain Cardiovascular: Cardiovascular: Reports no additional cardiovascular complaints, Denies chest pain, Denies leg edema and Denies dyspnea Respiratory: Respiratory: Reports no additional respiratory complaints, Denies cough and Denies dyspnea Gastrointestinal: Gastrointestinal: Reports no additional gastrointestinal complaints, Denies abdominal pain, Denies diarrhea, Denies nausea and Denies vomiting Genitourinary: Genitourinary: Reports no additional female genitourinary complaints and Denies urinary incontinence Musculoskeletal: Musculoskeletal: Reports no additional musculoskeletal complaints, Denies back pain, Denies arthralgias, Denies joint swelling, Denies neck pain, Denies numbness and Denies tingling Integumentary/Breasts: Skin/Breast: Reports system reviewed and no additional complaints, except as docu and Reports rash Neurologic: Reports system reviewed and no additional complaints, except as documented, Denies Abnormal speech present, Denies dizziness, Denies headache(s), Denies numbness, Denies tingling and Denies weakness PMFSH Past Medical History Attestation statement: The following information was validated with the patient. Source: old records reviewed and nursing notes reviewed Medical History Asthma Depression Diabetes 1.5, managed as type 2 Fibromyalgia Surgical History Gastric bypass status for obesity Social History Social History Alcohol intake: never Advance Directives: Yes Advance Directives Information Provided: Yes Advance Directives on File: No Gender identity: female Physical Exam Vital Signs: Vital Signs: Last Vital Signs Temp 96.9 F 10/07/20 13:29 Pulse 86 10/07/20 13:29 Resp 18 10/07/20 13:29 BP 124/61 10/07/20 13:29 Pulse Ox 97 10/07/20 13:29 Body Mass Index 30.4 Const: General: cooperative, healthy appearing, comfortable and no acute distress Orientation/consciousness: patient oriented x3 Limitations: no limitations HENMT: Head: Yes normal to inspection Ears: hearing grossly normal bilaterally and TM's normal bilaterally General nose exam: Normal external nose present Face and sinus: Yes normal facial exam Mouth: Normal oral and palatal mucosa present Throat: Yes posterior oropharynx normal, Yes tonsils normal and Yes uvula midline Eyes: General: appearance normal, both eyes and all related structures Pupils: Equal, round and reactive pupils present Neck: Neck: Yes normal visual inspection Chest: Chest palpation & inspection: normal inspection of the chest Resp: Effort & Inspection: normal respiratory effort Auscultation: clear to auscultation bilaterally Cardio: Rate: regular rate Rhythm: regular rhythm Peripheral pulses: Peripheral pulses 2+ throughout GI: Inspection: Yes normal to inspection Palpation (GI): Soft to palpation and nontender Auscultation: normal bowel sounds Back/Spine/Pelvis: Thoracic/Lumbar Spine: thoracic and lumbar spine normal to inspection Skin: Other: Urticarial rash noted over the forearms, thighs, genital region and over the cheeks. No angioedema. No stridor. General skin exam: no rashes or lesions noted Neuro: General: patient oriented x3, no focal motor deficits and normal sensation to monofilament Cranial nerves: Yes Equal, round and reactive pupils present Cognition (Neuro): normal cognition Speech: No Abnormal speech present Gait exam (Neuro): Normal gait present Motor exam (neuro): 5/5 motor strength present throughout Extrem: General: Yes normal to inspection Course Course Course Narrative: 60-year-old female here with urticarial rash x2 weeks. Patient tells me this began after receiving her 2nd COVID vaccine. She has no airway involvement. She appears well. Given p.o. prednisone, Pepcid and Benadryl with improvement. Will send home with course Reviewed worrisome signs and symptoms of when to return to the emergency department. Comfortable discharge home. Discharge Plan Discharge Clinical Impression: Allergic reaction Qualifiers: Encounter type: initial encounter Qualified Code(s): T78.40XA - Allergy, unspecified, initial encounter Patient Disposition: Home, Self-Care Instructions: Urticaria (ED) Prescriptions: New prednisone 20 mg tablet 40 mg PO DAILY Qty: 10 RF: 0 hydroxyzine HCl 25 mg tablet 25 mg PO TID PRN (Reason: itching) Qty: 10 RF: 0 cetirizine 10 mg tablet 10 mg PO DAILY Qty: 30 RF: 0 No Action phenazopyridine [Pyridium] 200 mg tablet 200 mg PO TID Qty: 6 RF: 0 Referrals: Elizabeth Dunn MD [Primary Care Provider] - 2 days
[2020-10-07] MEDS: Famotidine 20 MG TABLET PO (15:39)
[2020-10-07] MEDS: predniSONE 20 MG TABLET 60 MG PO (15:39)
[2020-10-07] MEDS: diphenhydrAMINE HCL 25 MG TABLET PO (15:39)
[2020-10-07 16:09] VITALS: BP 95/62; PULSE 75; RESP 18; TEMP 36.4; O2SAT 100
== END 2020-10-07 17:20 | disposition home or self-care (01) ==
PROVIDERS: Emergency Provider Emergency Medicine Emergency Medical Services; PCP Internal Medicine
DX: L25.1 Unspecified contact dermatitis due to drugs in contact with skin (principal); T88.1XXA Other complications following immunization, not elsewhere classified, initial encounter; T50.B95A Adverse effect of other viral vaccines, initial encounter; Y92.9 Unspecified place or not applicable; Z79.899 Other long term (current) drug therapy
CPT/HCPCS: 99283; Q0163

== ENCOUNTER 2020-10-12 10:45 | Outpatient (REF) | payer MEDICAID, SELFPAY ==
[2020-10-12 12:35] LABS: Blood Urea Nitrogen 53 mg/dL (9-16); Estimated Glomerular Filt Rate 38
== END 2020-10-12 10:46 | disposition home or self-care (01) ==
LOC: HO.LAB 10:45
PROVIDERS: PCP Internal Medicine; Visit Provider Nurse Practitioner Women's Health
DX: M48.02 Spinal stenosis, cervical region (principal)
CPT/HCPCS: 36415; 82565; 84520

== ENCOUNTER 2020-10-13 13:33 | Emergency (ER) | payer MEDICAID, SELFPAY ==
--- NOTE | ~2020-10-13 | XR_ITS ---
EXAMINATION: XR CHEST CLINICAL INFORMATION: Shortness of breath. COMPARISON: 03/07/2020 portable chest radiograph. TECHNIQUE: Frontal view of the chest was obtained. FINDINGS: No significant abnormality is noted involving the heart, lungs, mediastinum, bony thorax or soft tissues. XR/XR chest 1V IMPRESSION: No acute cardiopulmonary process.
[2020-10-13 13:44] VITALS: BP 103/65; BP 128/78; PULSE 88; PULSE 89; RESP 16; TEMP 37.1; O2SAT 100; O2SAT 97; BMI 31.4
--- NOTE | 2020-10-13 14:37 | ED.GENADULT ---
HPI - General Adult General Chief complaint: General Medical Stated complaint: NOT FEELING WELL SINCE THIS AM Time Seen by Provider: 10/13/20 14:37 Source: patient and EMS Mode of arrival: EMS Limitations: no limitations History of Present Illness HPI narrative: 60 y/o female with history of fibromyalgia, depression, diabetes who presents to the ED from home via EMS with reports of not feeling well. She states when she woke up this morning she had headache, intermittent blurred vision, upset stomach and hurting all over. Pain is mostly in her head and neck. Feels like her fibromyalgia flaring up as well as a migraine headache however she also reports fatigue. She has photophobia and dry mouth. She reports some mild MATUTE and fatgiue in her chest when she walks. She denies SOB, difficulty breathing, cough, fever, chills, vomiting or diarrhea. She usually takes oxycodne for her fibromylagia which is prescribed by [facility]. She had them at home but her stomach was upset so she didn't take it today. No sick contacts. MD complaint: headache and muscle pain Onset (ago): hour(s) Location: head, neck, chest, back and lower extremity Radiation: non-radiation Severity: moderate Severity scale (1-10): 8 Quality: aching Pain Consistency: constant Relieving factors: none Exacerbating factors: movement Associated symptoms: headaches, loss of appetite, malaise and weakness Treatments prior to arrival: none Related Data Previous Rx's Medication Instructions Recorded phenazopyridine [Pyridium] 200 mg PO TID #6 tab 05/13/20 cetirizine 10 mg PO DAILY #30 tab 10/07/20 hydroxyzine HCl 25 mg PO TID PRN #10 tab 10/07/20 prednisone 40 mg PO DAILY #10 tab 10/07/20 Allergies Allergy/AdvReac Type Severity Reaction Status Date / Time morphine [MORPHINE] Allergy Intermediate PALPITATIONS, Verified 07/17/20 11:27 tachicardia quetiapine [Seroquel] Allergy Unknown Unknown Verified 07/17/20 11:27 orphenadrine [ORPHENADRINE] AdvReac Intermediate RAPID Verified 07/17/20 11:27 HEART RATE From SEROQUEL Allergy Intermediate ANXIOUS Uncoded 07/17/20 11:27 Review of Systems Review of Systems: Constitutional: No Fever, No Chills ENT/Mouth: No sore throat, No Rhinorrhea, No Swallowing Difficulty Cardiovascular: + Chest Pain, No SOB, No Orthopnea, No Edema Respiratory: No Cough, No Sputum, No Wheezing, + dyspnea Gastrointestinal: + Nausea, No Vomiting, No Diarrhea, No abdominal Pain Genitourinary: No Dysuria, No Urinary Frequency, No Hematuria Musculoskeletal: No joint pain, No Myalgias Skin: No Skin Lesions, No rash Neuro: + Weakness, No Numbness, No Dizziness, + Headache Psych: No Anxiety/Panic, + Depression Heme/Lymph: No Bruising, No Lymphadenopathy Endocrine: No Polyuria, No Polydipsia PMFSH Past Medical History Attestation statement: The following information was validated with the patient. Medical History Asthma Depression Diabetes 1.5, managed as type 2 Fibromyalgia Surgical History Gastric bypass status for obesity Social History Social History Alcohol intake: never Patient Tobacco Use Status: Never used Tobacco Use of substances other than those prescribed or required for medical reasons: No Advance Directives: No Advance Directives Information Provided: Yes Patient : No Gender identity: female Physical Exam Vital Signs: Vital Signs: Last Vital Signs Temp 98.8 F 10/13/20 13:44 Pulse 88 10/13/20 13:44 Resp 16 10/13/20 13:44 BP 103/65 10/13/20 13:44 Pulse Ox 97 10/13/20 13:44 Body Mass Index 31.4 Appearance: Alert. Oriented X3. No acute distress. Eyes: Pupils equal, round and reactive to light. ENT: Pharynx normal. Neck: Normal inspection. Neck supple. CVS: Normal heart rate and rhythm. Pulses normal. Respiratory: No respiratory distress. Breath sounds normal. Abdomen: Soft and nontender. +BS x4. No CVA tenderness. Skin: Skin warm and dry. Normal skin color. Normal skin turgor. No rashes. Extremities: No lower extremity edema. Neuro: Oriented X 3. No motor deficit. No sensory deficit. Course Course Course Narrative: 60 y/o female with history of fibromyalgia, migraines, presenting with multiple complaints including headache, neck pain, blurry vision w/ photophobia, upset stomach, body aches and pains. Most likely migraine headache with fibromyalgia flare - will treat with IV reglan, benadryl and toradol for migraine. Will get basic labs, EKG and CXR given reports of mild MATUTE today and fatigue Reevaluation(s) Reevaluation #1: Her headache and body aches are improved. She is drinking hyacinth able without nausea. CXR negative. Lab work showing normal H/H with WBC 13K. No source of infection identified at this time. Showing MITALI with BUN/Cr 47/1.46 (53/1.41 yesterday). Her baseline BUN/Cr 18/0.86 back in May. She does not know why she had blood work done yesterday. UA is still pending. She denies back pain and denies any urinary symptoms. She reports eating and drinking normally. Will plan to hydrate with IVF and repeat chemistry after IVF resuscitation. Patient agreeable with plan. Signed out to Reanna AMOS who will f/u repeat labs. Medical Decision Making Lab Data Result diagrams: 10/13/20 15:00 10/13/20 16:05 Labs: Lab Results 10/13/20 10/13/20 10/13/20 Range/Units 15:00 15:00 15:00 WBC 13.1 H (4.8-10.8) X10*3/uL RBC 4.78 (4.20-5.50) X10*6/uL Hgb 13.1 (12.0-16.0) g/dl Hct 40.9 (37-47) % MCV 85.6 (80-98) fL MCH 27.4 (27.0-33.0) pg MCHC 32.0 (31.0-35.0) g/dl RDW 14.0 (11.0-16.0) % Plt Count 306 (160-400) X10*3/uL MPV 10.6 (9.4-12.3) fL Immature Gran % (Auto) 1.5 H (0.0-0.4) % Neut % (Auto) 57.5 (45-73) % Lymph % (Auto) 30.5 (20-40) % [place] % (Auto) 9.0 (2-11) % Eos % (Auto) 1.2 (0-4) % Baso % (Auto) 0.3 (0-2) % Lymph # (Auto) 4.0 (1.2-4.9) X10*3/uL [place] # (Auto) 1.2 (0.1-1.2) X10*3/uL Eos # (Auto) 0.2 (0.0-0.4) X10*3/uL Baso # (Auto) 0.0 (0.0-0.2) X10*3/uL Abs Immat Gran (auto) 0.19 H (0.00-0.03) X10*3/uL Absolute Neuts (auto) 7.5 (2.0-8.3) X10*3/uL Absolute Nucleated RBC 0.000 (0.0-0.012) X10*3/uL Nucleated RBC % (auto) 0.0 (0.0-0.2) /100WBC Hold Blue Top SEE NOTE Sodium (135-145) mmol/L Potassium (3.3-5.1) mmol/L Chloride (96-108) mmol/L Carbon Dioxide (22-29) mmol/L Anion Gap (12-20) BUN (9-16) mg/dL Creatinine (0.5-1.4) mg/dL Estim Creat Clear Calc Estimated GFR Random Glucose (60-115) mg/dL Calcium (8.4-10.2) mg/dL Magnesium (1.6-2.6) mg/dL Troponin I High Sens < 3.5 (<3.5-17.0) ng/L 10/13/20 Range/Units 16:05 WBC (4.8-10.8) X10*3/uL RBC (4.20-5.50) X10*6/uL Hgb (12.0-16.0) g/dl Hct (37-47) % MCV (80-98) fL MCH (27.0-33.0) pg MCHC (31.0-35.0) g/dl RDW (11.0-16.0) % Plt Count (160-400) X10*3/uL MPV (9.4-12.3) fL Immature Gran % (Auto) (0.0-0.4) % Neut % (Auto) (45-73) % Lymph % (Auto) (20-40) % [place] % (Auto) (2-11) % Eos % (Auto) (0-4) % Baso % (Auto) (0-2) % Lymph # (Auto) (1.2-4.9) X10*3/uL [place] # (Auto) (0.1-1.2) X10*3/uL Eos # (Auto) (0.0-0.4) X10*3/uL Baso # (Auto) (0.0-0.2) X10*3/uL Abs Immat Gran (auto) (0.00-0.03) X10*3/uL Absolute Neuts (auto) (2.0-8.3) X10*3/uL Absolute Nucleated RBC (0.0-0.012) X10*3/uL Nucleated RBC % (auto) (0.0-0.2) /100WBC Hold Blue Top Sodium 141 (135-145) mmol/L Potassium 5.0 (3.3-5.1) mmol/L Chloride 103 (96-108) mmol/L Carbon Dioxide 28 (22-29) mmol/L Anion Gap 15 (12-20) BUN 47 H (9-16) mg/dL Creatinine 1.46 H (0.5-1.4) mg/dL Estim Creat Clear Calc 45.4 Estimated GFR 37 Random Glucose 74 (60-115) mg/dL Calcium 9.9 D (8.4-10.2) mg/dL Magnesium 2.7 H (1.6-2.6) mg/dL Troponin I High Sens (<3.5-17.0) ng/L Discharge Plan Discharge Clinical Impression: MITALI (acute kidney injury) Prescriptions: No Action phenazopyridine [Pyridium] 200 mg tablet 200 mg PO TID Qty: 6 RF: 0 prednisone 20 mg tablet 40 mg PO DAILY Qty: 10 RF: 0 hydroxyzine HCl 25 mg tablet 25 mg PO TID PRN (Reason: itching) Qty: 10 RF: 0 cetirizine 10 mg tablet 10 mg PO DAILY Qty: 30 RF: 0
--- NOTE | 2020-10-13 14:48 | ECG_ITS ---
Test Reason : WEAKNESS Blood Pressure : / mmHG Vent. Rate : 079 BPM Atrial Rate : 079 BPM P-R Int : 164 ms QRS Dur : 088 ms QT Int : 382 ms P-R-T Axes : 062 -18 043 degrees QTc Int : 438 ms Normal sinus rhythm Minimal voltage criteria for LVH, may be normal variant Cannot rule out Anterior infarct , age undetermined Abnormal ECG When compared with ECG of 08-FEB-2020 13:20, No significant change was found Referred By: Lala Johnson Electronically Signed By:Kristofer Pitts
[2020-10-13 15:05] LABS: MANUAL DIFF FLAG NO
--- NOTE | 2020-10-13 15:06 | PC.NURSE ---
labs sent tadeo rn at bedside for iv attempt
[2020-10-13 15:07] LABS: Basophils Percent Auto 0.3 % (0-2); Eosinophils Absolute Auto 0.2 X10*3/uL (0.0-0.4); Eosinophils Percent Auto 1.2 % (0-4); Hematocrit 40.9 % (37-47); Hemoglobin 13.1 g/dl (12.0-16.0); Imm Gran Abs Auto 0.19 X10*3/uL (0.00-0.03); Imm Gran Pct Auto 1.5 % (0.0-0.4); Lymphocytes Percent Auto 30.5 % (20-40); Mean Corpuscular Hemoglobin 27.4 pg (27.0-33.0); Mean Corpuscular Volume 85.6 fL (80-98); Mean Platelet Volume 10.6 fL (9.4-12.3); Monocytes Absolute Auto 1.2 X10*3/uL (0.1-1.2); Neutrophils Absolute Auto 7.5 X10*3/uL (2.0-8.3); Neutrophils Percent Auto 57.5 % (45-73); Platelet Count 306 X10*3/uL (160-400); Red Blood Count 4.78 X10*6/uL (4.20-5.50); White Blood Count 13.1 X10*3/uL (4.8-10.8)
[2020-10-13] MEDS: 0.9 % Sodium Chloride 1,000 ML 999 ML IVCONT ×2 (15:34→16:51)
[2020-10-13] MEDS: Ketorolac Tromethamine 30 MG/ML VIAL IVPUSH (15:34)
[2020-10-13] MEDS: diphenhydrAMINE HCL 50 MG/ML VIAL 25 MG IVPUSH (15:34)
[2020-10-13] MEDS: Metoclopramide HCl 10 MG/2 ML VIAL IVPUSH (15:34)
[2020-10-13 15:40] LABS: Troponin-I High Sensitivity < 3.5 ng/L (<3.5-17.0)
[2020-10-13 16:34] LABS: Anion Gap 15 (12-20); Blood Urea Nitrogen 47 mg/dL (9-16); Calcium 9.9 mg/dL (8.4-10.2); Carbon Dioxide 28 mmol/L (22-29); Chloride 103 mmol/L (96-108); Creatinine Clr Calc Pharmacy 45.4; Estimated Glomerular Filt Rate 37; Glucose Random 74 mg/dL (60-115); Magnesium 2.7 mg/dL (1.6-2.6); Sodium 141 mmol/L (135-145)
[2020-10-13 18:23] LABS: COVID-19 Test Negative (Negative); IDNOW Serial# 9DD0AD1C
[2020-10-13 19:28] LABS: Glucose Urine UA NEG (NEG); Leukocyte Esterase Urine NEG (NEG); Nitrite Urine NEG (NEG); PH 5.5 (5.0-8.0); Specific Gravity - Urine >= 1.030 (1.005-1.025); Urine Blood NEG (NEG); Urine Ketones 15 MG/DL (NEG); Urine Protein NEG (NEG-TRACE)
[2020-10-13 19:37] LABS: Appearance Urine CLEAR; Color Urine YELLOW
[2020-10-13 20:13] LABS: Anion Gap 15 (12-20); Blood Urea Nitrogen 46 mg/dL (9-16); Calcium 9.2 mg/dL (8.4-10.2); Carbon Dioxide 25 mmol/L (22-29); Chloride 105 mmol/L (96-108); Estimated Glomerular Filt Rate 40; Glucose Random 73 mg/dL (60-115); Potassium 4.5 mmol/L (3.3-5.1); Sodium 140 mmol/L (135-145)
[2020-10-13 21:12] VITALS: BP 110/68; PULSE 74; RESP 16; O2SAT 97
== END 2020-10-13 22:13 | disposition home or self-care (01) ==
PROVIDERS: Physician Assistant; Emergency Provider Emergency Medicine Emergency Medical Services
DX: N17.9 Acute kidney failure, unspecified (principal); Z20.822 Contact with and (suspected) exposure to COVID-19; R07.9 Chest pain, unspecified; R51.9 Headache, unspecified; R53.83 Other fatigue; E11.9 Type 2 diabetes mellitus without complications
CPT/HCPCS: 36415; 71045; 80048; 81003; 83735; 84484; 85025; 87635; 93005; 96361; 96374; 96375; 99283; 99285; J1200; J1885; J2765

== ENCOUNTER 2020-10-15 11:22 | Emergency (ER) | payer MEDICAID, SELFPAY ==
--- NOTE | ~2020-10-15 | CT_ITS ---
EXAMINATION: CT HEAD WITHOUT CONTRAST CLINICAL INFORMATION: Headache. Dizziness. Rule out intracranial hemorrhage. COMPARISON: MRI brain 11/28/2017. TECHNIQUE: Contiguous axial imaging was performed from the skull base to vertex without intravenous administration of contrast. This CT examination was performed using dose optimization techniques as appropriate, variously including the following: *Automated exposure control *Adjustment of mA and/or kV according to patient size (this includes techniques or standardized protocols for targeted exams where dose is matched to indication/reason for exam; i.e. extremities or head) *Use of iterative reconstruction technique DLP: 629 mGy-cm FINDINGS: Mild diffuse commensurate prominence of ventricles and sulci is noted. No intracranial hemorrhage, tumors or acute infarcts are noted. Minimal periventricular and subcortical white matter patchy hypodensities are identified. The orbits and globes are normal in appearance. Mild hyperostosis frontalis interna is identified. No significant opacification of the visualized paranasal sinuses, mastoid air cells and middle ear cavities is identified. A possible subcentimeter mucosal retention cysts identified within the right frontal sinus. CT/CT head/brain wo con IMPRESSION: 1. No acute intracranial abnormalities. 2. Minimal white matter chronic small vessel ischemic changes grossly stable compared with MRI of the brain 11/28/2017.
[2020-10-15 11:25] VITALS: BP 105/65; BP 140/85; PULSE 112; PULSE 95; RESP 18; TEMP 36.6; O2SAT 97; O2SAT 98; BMI 30.4
--- NOTE | 2020-10-15 11:56 | ECG_ITS ---
Test Reason : HEADACHE Blood Pressure : / mmHG Vent. Rate : 078 BPM Atrial Rate : 078 BPM P-R Int : 172 ms QRS Dur : 090 ms QT Int : 396 ms P-R-T Axes : 062 -09 035 degrees QTc Int : 451 ms Normal sinus rhythm Normal ECG When compared with ECG of 13-OCT-2020 15:02, No significant change was found Referred By: Carmelita Rich Electronically Signed By:Kristofer Pitts
--- NOTE | 2020-10-15 11:56 | ED_ITS ---
HPI - Headache General Chief Complaint: Headache Stated Complaint: FREEMAN,ALL OVER BODYACHES,KIDNEY ISSUES Time Seen by Provider: 10/15/20 11:36 Source: patient and EMS Mode of arrival: EMS Limitations: no limitations History of Present Illness HPI Narrative: 60 y/o female with history of fibromyalgia, depression, diabetes, chronic migraines who presents to the ED from home via EMS with reports of not feeling well. She states when she woke up this morning she had an acute on chronic generalized FREEMAN, photophobia, generalized weakness, and low back pain. Feels like her fibromyalgia flaring up as well as a migraine headache. She usually takes oxycodone for her fibromylagia which is prescribed by [facility]. Takes topamax for migraines. Patient denies any nausea, vomiting, diarrhea, abdominal pain, chest pain, shortness of breath. She tells me she was seen here 2 days ago for similar complaints and felt improved on discharge. On review of the notes the patient received treatment for her migraine (reglan, benadryl, toradol, IV fluids). Patient has been she had some imaging done of her chest as well as labs. She tells me she was dehydrated and received IV fluids and was discharged home. Related Data Previous Rx's Medication Instructions Recorded phenazopyridine [Pyridium] 200 mg PO TID #6 tab 05/13/20 cetirizine 10 mg PO DAILY #30 tab 10/07/20 hydroxyzine HCl 25 mg PO TID PRN #10 tab 10/07/20 prednisone 40 mg PO DAILY #10 tab 10/07/20 Allergies Allergy/AdvReac Type Severity Reaction Status Date / Time morphine [MORPHINE] Allergy Intermediate PALPITATIONS, Verified 07/17/20 11:27 tachicardia quetiapine [Seroquel] Allergy Unknown Unknown Verified 07/17/20 11:27 orphenadrine [ORPHENADRINE] AdvReac Intermediate RAPID Verified 07/17/20 11:27 HEART RATE From SEROQUEL Allergy Intermediate ANXIOUS Uncoded 07/17/20 11:27 Review of Systems Review of Systems: Yes all other systems are reviewed and are negative Constitutional: Constitutional: Reports no additional constitutional complaints, Denies body ache(s), Denies chills, Reports fatigue, Denies fever(s), Reports headache(s) and Reports weakness Eyes: Eyes: Reports no additional eye complaints and Denies change in vision ENT: Reports system reviewed and no additional complaints, except as documented, Denies dizziness, Reports headache(s), Denies nasal congestion, Denies nasal discharge and Denies neck pain Comments: Photophobia Cardiovascular: Cardiovascular: Reports no additional cardiovascular complaints, Denies chest pain, Denies leg edema and Denies dyspnea Respiratory: Respiratory: Reports no additional respiratory complaints, Denies cough and Denies dyspnea Gastrointestinal: Gastrointestinal: Reports no additional gastrointestinal complaints, Denies abdominal pain, Denies diarrhea, Denies nausea and Denies vomiting Genitourinary: Genitourinary: Reports no additional female genitourinary complaints and Denies urinary incontinence Musculoskeletal: Musculoskeletal: Reports no additional musculoskeletal complaints, Reports back pain, Denies arthralgias, Denies joint swelling, Denies neck pain, Denies numbness and Denies tingling Integumentary/Breasts: Skin/Breast: Reports system reviewed and no additional complaints, except as docu and Denies rash Neurologic: Reports system reviewed and no additional complaints, except as documented, Denies Abnormal speech present, Denies dizziness, Reports headache(s), Denies numbness, Denies tingling and Reports weakness Endocrine: Endocrine: Reports fatigue PMFSH Past Medical History Attestation statement: The following information was validated with the patient. Source: old records reviewed and nursing notes reviewed Medical History Asthma Depression Diabetes 1.5, managed as type 2 Fibromyalgia Surgical History Gastric bypass status for obesity Social History Social History Alcohol intake: never Patient Tobacco Use Status: Never used Tobacco Advance Directives: No Advance Directives Information Provided: No Gender identity: female Physical Exam Vital Signs: Vital Signs: Last Vital Signs Temp 98 F 10/15/20 11:25 Pulse 95 10/15/20 11:25 Resp 18 10/15/20 11:25 BP 105/65 10/15/20 11:25 Pulse Ox 98 10/15/20 11:25 Body Mass Index 30.4 Const: General: cooperative, healthy appearing, comfortable and no acute distress Orientation/consciousness: patient oriented x3 Limitations: no li mitations HENMT: Head: Yes normal to inspection Ears: hearing grossly normal bilaterally and TM's normal bilaterally General nose exam: Normal external nose present Face and sinus: Yes normal facial exam Mouth: Normal oral and palatal mucosa present Throat: Yes posterior oropharynx normal, Yes tonsils normal and Yes uvula midline Eyes: General: appearance normal, both eyes and all related structures Pupils: Equal, round and reactive pupils present Neck: Neck: Yes normal visual inspection, Yes full ROM, Yes no lymphadenopathy and Yes no meningeal signs Chest: Chest palpation & inspection: normal inspection of the chest Resp: Effort & Inspection: normal respiratory effort Auscultation: clear to auscultation bilaterally Cardio: Rate: regular rate Rhythm: regular rhythm Peripheral pulses: Peripheral pulses 2+ throughout GI: Inspection: Yes normal to inspection Palpation (GI): Soft to palpation and nontender Auscultation: normal bowel sounds Back/Spine/Pelvis: Other: No lumbar tenderness, step-offs or deformities Thoracic/Lumbar Spine: thoracic and lumbar spine normal to inspection Sacroiliac joints: on the left (Mild) tender to palpation and by compression of iliac crest Skin: General skin exam: no rashes or lesions noted Neuro: General: patient oriented x3, no meningeal signs, no focal motor deficits and normal sensation to monofilament Cranial nerves: Yes CN's II-XII intact bilaterally, Yes Equal, round and reactive pupils present, Yes Bilaterally intact EOM present, Yes Nystagmus not present, Yes Normal facial strength present and Yes Midline tongue present Cognition (Neuro): normal cognition Speech: No Abnormal speech present Gait exam (Neuro): Normal gait present Motor exam (neuro): 5/5 motor strength present throughout Sensory Exam: Normal double simultaneous stimulation for sensation Extrem: General: Yes normal to inspection, Yes no pedal edema and Yes no calf tenderness Course Course Course Narrative: 60 y/o female with history of fibromyalgia, migraines, present ing with multiple complaints including headache w/ photophobia which feels like her migraine, generalized weakness/fatigue and low back pain which feels like her fibromyalgia flare despite home oxycodone. Most likely migraine headache with fibromyalgia flare - will treat with IV reglan, benadryl and toradol for migraine. Will get basic labs, EKG and CT head d/t recent visit in last 48 hrs. 1500-CT head negative, labs unremarkable. Urine negative for infection. Patient is feeling improved and is tolerating p.o. she was able to ambulate to the bathroom with no difficulty. Recommended she follow-up with her specialist. Reviewed worrisome signs and symptoms of when to return to the emergency department. Comfortable discharge home. MDM - Headache MDM Narrative Medical decision making narrative: Headache improved after receiving IV medications for migraine. Likely migraine with fibromyalgia flare. Differential Diagnosis Differential diagnosis: Likely migraine, tension headache and headache Medical Records Attestation: I reviewed the patient's medical records. Lab Data Attestation: I reviewed the patient's lab results. Result diagrams: 10/15/20 12:06 10/15/20 12:06 Labs: Lab Results 10/15/20 10/15/20 10/15/20 Range/Units 12:06 12:06 15:05 WBC 7.8 (4.8-10.8) X10*3/uL RBC 4.16 L (4.20-5.50) X10*6/uL Hgb 11.4 L (12.0-16.0) g/dl Hct 35.7 L (37-47) % MCV 85.8 (80-98) fL MCH 27.4 (27.0-33.0) pg MCHC 31.9 (31.0-35.0) g/dl RDW 14.0 (11.0-16.0) % Plt Count 266 (160-400) X10*3/uL MPV 10.6 (9.4-12.3) fL Immature Gran % (Auto) 1.4 H (0.0-0.4) % Neut % (Auto) 66.0 (45-73) % Lymph % (Auto) 21.2 (20-40) % [place] % (Auto) 9.3 (2-11) % Eos % (Auto) 1.8 (0-4) % Baso % (Auto) 0.3 (0-2) % Lymph # (Auto) 1.7 (1.2-4.9) X10*3/uL [place] # (Auto) 0.7 (0.1-1.2) X10*3/uL Eos # (Auto) 0.1 (0.0-0.4) X10*3/uL Baso # (Auto) 0.0 (0.0-0.2) X10*3/uL Abs Immat Gran (auto) 0.11 H (0.00-0.03) X10*3/uL Absolute Neuts (auto) 5.1 (2.0-8.3) X10*3/uL Absolute Nucleated RBC 0.000 (0.0-0.012) X10*3/uL Nucleated RBC % (auto) 0.0 (0.0-0.2) /100WBC Sodium 136 (135-145) mmol/L Potassium 4.8 (3.3-5.1) mmol/L Chloride 104 (96-108) mmol/L Carbon Dioxide 20 L (22-29) mmol/L Anion Gap 17 (12-20) BUN 31 H (9-16) mg/dL Creatinine 1.16 (0.5-1.4) mg/dL Estim Creat Clear Calc 56.2 Estimated GFR 48 Random Glucose 116 H D (60-115) mg/dL Calcium 8.7 (8.4-10.2) mg/dL Urine Color YELLOW Urine Appearance CLEAR Urine pH 6.0 (5.0-8.0) Ur Specific [place] 1.020 (1.005-1.025) Urine Protein NEG (NEG-TRACE) MG/DL Urine Glucose (UA) NEG (NEG) MG/DL Urine Ketones 15 (NEG) MG/DL Urine Blood NEG (NEG) Urine Nitrite NEG (NEG) Ur Leukocyte Esterase NEG (NEG) Imaging Data CT scan - head: Attestation: I personally reviewed and interpreted this imaging study as follows: Radiologist's impression: EXAMINATION: CT HEAD WITHOUT CONTRAST CLINICAL INFORMATION: Headache. Dizziness. Rule out intracranial hemorrhage. COMPARISON: MRI brain 11/28/2017. TECHNIQUE: Contiguous axial imaging was performed from the skull base to vertex without intravenous administration of contrast. This CT examination was performed using dose optimization techniques as appropriate, variously including the following: *Automated exposure control *Adjustment of mA and/or kV according to patient size (this includes techniques or standardized protocols for targeted exams where dose is matched to indication/reason for exam; i.e. extremities or head) *Use of iterative reconstruction technique DLP: 629 mGy-cm FINDINGS: Mild diffuse commensurate prominence of ventricles and sulci is noted. No intracranial hemorrhage, tumors or acute infarcts are noted. Minimal periventricular and subcortical white matter patchy hypodensities are identified. The orbits and globes are normal in appearance. Mild hyperostosis frontalis interna is identified. No significant opacification of the visualized paranasal sinuses, mastoid air cells and middle ear cavities is identified. A possible subcentimeter mucosal retention cysts identified within the right frontal sinus. CT/CT head/brain wo con IMPRESSION: 1. No acute intracranial abnormalities. 2. Minimal white matter chronic small vessel ischemic changes grossly stable compared with MRI of the brain 11/28/2017. ECG Data Attestation: I personally reviewed and interpreted this ECG as follows: ECG interpretation date: 10/15/20 ECG interpretation time: 12:38 Interpretation: Normal sinus rhythm with a rate of 78, normal MN, normal QRS, normal QTC Discharge Plan Discharge Clinical Impression: Migraine, Fibromyalgia Patient Disposition: Home, Self-Care Instructions: Migraine Headache (ED), Fibromyalgia (ED) Additional Instructions: Increase fluids, rest Follow-up with your neurologist, primary care doctor and fibromyalgia physician Your blood work, urine and CT head looked normal Prescriptions: No Action phenazopyridine [Pyridium] 200 mg tablet 200 mg PO TID Qty: 6 RF: 0 prednisone 20 mg tablet 40 mg PO DAILY Qty: 10 RF: 0 hydroxyzine HCl 25 mg tablet 25 mg PO TID PRN (Reason: itching) Qty: 10 RF: 0 cetirizine 10 mg tablet 10 mg PO DAILY Qty: 30 RF: 0 Referrals: [place] [Primary Care Provider] - 2 days Interventions: ED Discharge Assessment Last Done: 10/15/20 15:24 Discharge Date/Time: 10/15/20 15:41
[2020-10-15 12:10] LABS: MANUAL DIFF FLAG NO
[2020-10-15 12:11] LABS: Basophils Percent Auto 0.3 % (0-2); Eosinophils Absolute Auto 0.1 X10*3/uL (0.0-0.4); Eosinophils Percent Auto 1.8 % (0-4); Hematocrit 35.7 % (37-47); Hemoglobin 11.4 g/dl (12.0-16.0); Imm Gran Abs Auto 0.11 X10*3/uL (0.00-0.03); Imm Gran Pct Auto 1.4 % (0.0-0.4); Lymphocytes Absolute Auto 1.7 X10*3/uL (1.2-4.9); Lymphocytes Percent Auto 21.2 % (20-40); Mean Corpuscular HGB Conc 31.9 g/dl (31.0-35.0); Mean Corpuscular Hemoglobin 27.4 pg (27.0-33.0); Mean Corpuscular Volume 85.8 fL (80-98); Mean Platelet Volume 10.6 fL (9.4-12.3); Monocytes Absolute Auto 0.7 X10*3/uL (0.1-1.2); Monocytes Percent Auto 9.3 % (2-11); Neutrophils Absolute Auto 5.1 X10*3/uL (2.0-8.3); Platelet Count 266 X10*3/uL (160-400); Red Blood Count 4.16 X10*6/uL (4.20-5.50); White Blood Count 7.8 X10*3/uL (4.8-10.8)
[2020-10-15] MEDS: 0.9 % Sodium Chloride 1,000 ML 999 ML IV (12:15)
[2020-10-15] MEDS: diphenhydrAMINE HCL 50 MG/ML VIAL 25 MG IVPUSH (12:15)
[2020-10-15] MEDS: Metoclopramide HCl 10 MG/2 ML VIAL IVPUSH (12:15)
[2020-10-15] MEDS: Ketorolac Tromethamine 30 MG/ML VIAL IVPUSH (12:15)
[2020-10-15 12:34] LABS: Anion Gap 17 (12-20); Blood Urea Nitrogen 31 mg/dL (9-16); Calcium 8.7 mg/dL (8.4-10.2); Carbon Dioxide 20 mmol/L (22-29); Chloride 104 mmol/L (96-108); Creatinine Clr Calc Pharmacy 56.2; Estimated Glomerular Filt Rate 48; Glucose Random 116 mg/dL (60-115); Potassium 4.8 mmol/L (3.3-5.1); Sodium 136 mmol/L (135-145)
[2020-10-15 15:10] LABS: Glucose Urine UA NEG (NEG); Leukocyte Esterase Urine NEG (NEG); Nitrite Urine NEG (NEG); Urine Blood NEG (NEG); Urine Ketones 15 MG/DL (NEG); Urine Protein NEG (NEG-TRACE)
[2020-10-15 15:13] LABS: Appearance Urine CLEAR; Color Urine YELLOW
== END 2020-10-15 15:41 | disposition home or self-care (01) ==
PROVIDERS: Nurse Practitioner Family; Emergency Provider Emergency Medicine Emergency Medical Services
DX: G43.909 Migraine, unspecified, not intractable, without status migrainosus (principal); M79.7 Fibromyalgia; E13.9 Other specified diabetes mellitus without complications; J45.909 Unspecified asthma, uncomplicated; F32.9 Major depressive disorder, single episode, unspecified; Z79.891 Long term (current) use of opiate analgesic; Z79.899 Other long term (current) drug therapy
CPT/HCPCS: 36415; 70450; 80048; 81003; 85025; 93005; 96361; 96374; 96375; 99284; J1200; J1885; J2765

== ENCOUNTER 2020-10-15 23:34 | Emergency (ER) | payer MEDICAID, SELFPAY ==
[2020-10-16 01:16] VITALS: BMI 31.6
--- NOTE | 2020-10-16 01:26 | ED.HA ---
HPI - Headache General Chief Complaint: Headache Stated Complaint: MIGRAINE HEADACHE, SEEN TODAY FOR SAME Time Seen by Provider: 10/16/20 00:59 Source: patient Mode of arrival: ambulatory History of Present Illness HPI Narrative: 60-year-old female presents with complaints of persistent right-sided headache that is not associated with photosensitivity, fevers, chills, nausea and states that the pain that she feels on the right side of her head is preceded by a pulsing sensation in her ear and then followed by the pain. She denies any difficulty with opening or closing her mouth, denies visual disturbances, changes in medication, but states that both of her feet feel numb and her face feels swollen. Related Data Previous Rx's Medication Instructions Recorded phenazopyridine [Pyridium] 200 mg PO TID #6 tab 05/13/20 cetirizine 10 mg PO DAILY #30 tab 10/07/20 hydroxyzine HCl 25 mg PO TID PRN #10 tab 10/07/20 prednisone 40 mg PO DAILY #10 tab 10/07/20 Allergies Allergy/AdvReac Type Severity Reaction Status Date / Time morphine [MORPHINE] Allergy Intermediate PALPITATIONS, Verified 07/17/20 11:27 tachicardia quetiapine [Seroquel] Allergy Unknown Unknown Verified 07/17/20 11:27 orphenadrine [ORPHENADRINE] AdvReac Intermediate RAPID Verified 07/17/20 11:27 HEART RATE From SEROQUEL Allergy Intermediate ANXIOUS Uncoded 07/17/20 11:27 Review of Systems Review of Systems: Pertinent positives and negatives as stated in HPI 10 point review of systems is otherwise negative. [facility] Past Medical History Source: nursing notes reviewed Medical History Asthma Depression Diabetes 1.5, managed as type 2 Fibromyalgia Surgical History Gastric bypass status for obesity Social History Social History Alcohol intake: never Patient Tobacco Use Status: Never used Tobacco Use of substances other than those prescribed or required for medical reasons: No Advance Directives: No Advance Directives Information Provided: Yes Gender identity: female Physical Exam Vital Signs: Vital Signs: Last Vital Signs Temp 98.4 F 10/16/20 01:27 Pulse 68 10/16/20 01:27 Resp 16 10/16/20 01:27 BP 118/72 10/16/20 01:27 Pulse Ox 97 10/16/20 01:27 Body Mass Index 31.6 VITAL SIGNS: Reviewed. GENERAL: Well developed, well nourished, in no acute distress. HEAD: Normocephalic/atraumatic EYES: PERRLA, EOMI intact without pain, no nystagmus EARS: Ext canals without abnormality, TMs non-bulging and non-erythematous NOSE: Nares patent bilateral OROPHARYNX: no oral lesions noted, posterior pharynx clear and non-erythematous without noted tonsillar enlargement/erythema/exudates, no dental caries noted no gingival swelling NECK: Supple, no adenopathy LUNGS: Normal breath sounds. No adventitious sounds or accessory muscle use. SpO2<97> CARDIOVASCULAR: Regular rate and rhythm without noted murmurs, no JVD or lower extremity edema. ABDOMEN: Obese, Soft, non-tender, non-distended with bowel sounds. MUSCULOSKELETAL: No tenderness, deformities, or effusions noted on gross inspection. EXTREMITIES: No cyanosis, clubbing or edema. SKIN: Inspection of the skin reveals no rashes, jaundice, pallor, or petechiae. NEUROLOGIC: Alert and oriented x 4. Tremulous, Strength and sensation to light touch were grossly intact x 4, no pronator drift, no facial asymmetry. Course Course Course Narrative: This is a 60-year-old female who is presenting for the 3rd time since 10/13 with similar complaints and review of all lab work only significant for persistent BUN elevation, but there is a noted decrease in hemoglobin from 13.1-11.4. Taken in conjunction with patient's history of gastric bypass, a stool guaiac was sent although patient denies any obstructive like symptoms or abdominal pain. In addition, CT of the head from 10/15 was reviewed without acute findings. Given the nature of bilateral lower extremity numbness this is inconsistent with a focal neurologic deficit and would speak more to electrolyte/metabolic etiology. Patient does have a significant history of depression and fibromyalgia. There is a possibility this may be a trigeminal neuralgia versus less likely shingles, will consider ESR if administration of migraine cocktail does not result in improvement. Review of additional investigations negative for any acute findings to suggest giant cell arteritis and guaiac of stool to evaluate for noted drop in hemoglobin was guaiac-negative. Glucose point of care is within normal limits and on re-evaluation patient has had resolution of her headache. All labs and imaging since 10/13 were reviewed. She was discharged home in stable condition. MDM - Headache Lab Data Labs: Lab Results 10/16/20 10/16/20 10/16/20 Range/Units 01:25 01:42 02:04 ESR 12 (0-20) MM/HR POC Glucose 78 (60-115) mg/dL Stool Occult Blood NEGATIVE (NEGATIVE) Discharge Plan Discharge Clinical Impression: Headache Patient Disposition: Home, Self-Care Instructions: Acute Headache (ED) Additional Instructions: Resume all home medications as prescribed. Follow-up with your primary care provider in the morning for re-evaluation. Return to the ER for any worsening of symptoms. Prescriptions: No Action phenazopyridine [Pyridium] 200 mg tablet 200 mg PO TID Qty: 6 RF: 0 prednisone 20 mg tablet 40 mg PO DAILY Qty: 10 RF: 0 hydroxyzine HCl 25 mg tablet 25 mg PO TID PRN (Reason: itching) Qty: 10 RF: 0 cetirizine 10 mg tablet 10 mg PO DAILY Qty: 30 RF: 0 Referrals: Physician,Unknown [Primary Care Provider] - 2 days
[2020-10-16 01:27] VITALS: BP 118/72; PULSE 68; RESP 16; TEMP 36.9; O2SAT 97
[2020-10-16 01:28] LABS: Glucose, Whole Blood 78 mg/dL (60-115)
[2020-10-16 01:52] LABS: OBS Int Ctl Valid YES; OBS1 NEGATIVE (NEGATIVE)
[2020-10-16] MEDS: Metoclopramide HCl 10 MG/2 ML VIAL IVPUSH (01:53)
[2020-10-16] MEDS: Ketorolac Tromethamine 15 MG/ML VIAL IVPUSH (01:53)
[2020-10-16] MEDS: diphenhydrAMINE HCL 50 MG/ML VIAL 25 MG IVPUSH (01:54)
[2020-10-16] MEDS: 0.9 % Sodium Chloride 1,000 ML 999 ML IV (01:54)
[2020-10-16] MEDS: Acetaminophen 325 MG TABLET 975 MG PO (01:54)
[2020-10-16 02:44] LABS: Erythrocyte Sedimentation Rate 12 MM/HR (0-20)
== END 2020-10-16 04:09 | disposition home or self-care (01) ==
PROVIDERS: Emergency Provider Student in an Organized Health Care Education/Training Program
DX: R51.9 Headache, unspecified (principal); E13.9 Other specified diabetes mellitus without complications; R20.0 Anesthesia of skin; M79.7 Fibromyalgia; Z98.84 Bariatric surgery status
CPT/HCPCS: 36415; 82272; 82947; 85652; 96365; 96375; 99284; J1200; J1885; J2765

== ENCOUNTER 2020-10-20 10:16 | Emergency (ER) | payer MEDICAID, SELFPAY ==
[2020-10-20 10:19] VITALS: BP 122/77; PULSE 75; RESP 18; TEMP 36.6; O2SAT 98; BMI 32.1
--- NOTE | 2020-10-20 10:20 | ED_ITS ---
HPI - Headache General Chief Complaint: Headache Stated Complaint: headache Time Seen by Provider: 10/20/20 10:19 Source: patient, EMS and old records reviewed Mode of arrival: EMS Limitations: no limitations History of Present Illness HPI Narrative: 60 yo female with DM, asthma depression fibromyalgia is here with her 4th visit this month for headaches, negative head CT on 10/15, ESR 12 comes in again today with c/o persistent pain in that area and feeling chronic tingling in her extremities, I dont feel well states her topiramate for headaches is not improving MD elicited complaint: headache Pertinent past history: migraines Onset (ago): week(s) Onset description: gradually and while at rest Location: right and temporal Severity: severe Quality & Timing: throbbing Exacerbating factors: light, noise and other (touching area, chewing) Context: occurred at rest Associated symptoms: photophobia, rash (feels her face is swollen and she has small red bumps on her face) and tingling Treatments prior to arrival: none Related Data Previous Rx's Medication Instructions Recorded phenazopyridine [Pyridium] 200 mg PO TID #6 tab 05/13/20 cetirizine 10 mg PO DAILY #30 tab 10/07/20 hydroxyzine HCl 25 mg PO TID PRN #10 tab 10/07/20 prednisone 40 mg PO DAILY #10 tab 10/07/20 alodbpnvsa-srxdafkfbvudt-rvtt 1 tab PO Q6H PRN #20 tab 10/20/20 cyclobenzaprine 10 mg PO TID PRN #14 tab 10/20/20 ondansetron 4 mg PO Q8H PRN #20 tab 10/20/20 prednisone 40 mg PO DAILY 5 Days #10 tab 10/20/20 Allergies Allergy/AdvReac Type Severity Reaction Status Date / Time morphine [MORPHINE] Allergy Intermediate PALPITATIONS, Verified 07/17/20 11:27 tachicardia quetiapine [Seroquel] Allergy Unknown Unknown Verified 07/17/20 11:27 orphenadrine [ORPHENADRINE] AdvReac Intermediate RAPID Verified 07/17/20 11:27 HEART RATE From SEROQUEL Allergy Intermediate ANXIOUS Uncoded 07/17/20 11:27 Review of Systems Review of Systems: Constitutional : No Fever, No Chills, No Fatigue ENT/Mouth : No sore throat, No Rhinorrhea Eyes: No Eye Pain, pos Swelling, No Redness Cardiovascular : No Chest Pain, No SOB, No Dyspnea on Exertion Respiratory : No Cough, No Sputum Gastrointestinal : No Nausea, No Vomiting, No Diarrhea, No abdominal Pain Genitourinary : No Dysuria, No Urinary Frequency, No Hematuria, Musculoskeletal : No joint pain, No Myalgias, No Joint Swelling Skin : No Skin Lesions, pos rash Neuro : No Weakness, No Numbness, No Dizziness, positive Headache Psych : No Anxiety/Panic, No Depression Heme/Lymph: No Bruising, No Bleeding,No Lymphadenopathy Endocrine : No Polyuria, No Polydipsia All other systems reviewed and are negative [facility] Past Medical History Attestation statement: The following information was validated with the patient. Medical History Asthma Depression Diabetes 1.5, managed as type 2 Fibromyalgia Migraine Surgical History Gastric bypass status for obesity Social History Social History Alcohol intake: never Patient Tobacco Use Status: Never used Tobacco Advance Directives: No Advance Directives Information Provided: No Patient : No Gender identity: female Physical Exam Vital Signs: Vital Signs: Last Vital Signs Temp 98 F 10/20/20 10:19 Pulse 75 10/20/20 10:19 Resp 18 10/20/20 10:19 BP 122/77 10/20/20 10:19 Pulse Ox 98 10/20/20 10:19 Body Mass Index 32.1 Appearance: Alert. Oriented X3. No acute distress. Eyes: Pupils equal, round and reactive to light. ENT: Pharynx normal. R ear normal, small red bumps on R side of face, mild swelling noted on R upper cheek no erythema/warmth, ttp along R temporal artery Neck: Normal inspection. Neck supple. CVS: Normal heart rate and rhythm. Pulses normal. no meningeal signs Respiratory: No respiratory distress. Breath sounds normal. Abdomen: Soft and nontender. Skin: Skin warm and dry. Normal skin color. Normal skin turgor. Extremities: No lower extremity edema. No calf ttp Neuro: Oriented X 3. No motor deficit. No sensory deficit. Course Course Course Narrative: patient does feel a little better will DC home, labs stable MDM - Headache MDM Narrative Medical decision making narrative: 60 yo female with DM, asthma depression fibromyalgia is here with her 4th visit this month for headaches, negative head CT on 10/15, ESR 12 comes in again today with c/o persistent pain in that area and feeling chronic tingling in her extremities, I dont feel well states her topiramate for headaches is not improving at this time the patient will need labs, does not need repeat imaging just had unchanged CT scan of head, will attempt IV medications for pain, possible GCA will start on steroids and refer to gen surgery and PCP, dispo per results and improvement Lab Data Result diagrams: 10/20/20 10:35 10/20/20 10:35 Labs: Lab Results 10/20/20 10/20/20 Range/Units 10:35 10:35 WBC 10.1 (4.8-10.8) X10*3/uL RBC 4.22 (4.20-5.50) X10*6/uL Hgb 11.7 L (12.0-16.0) g/dl Hct 36.2 L (37-47) % MCV 85.8 (80-98) fL MCH 27.7 (27.0-33.0) pg MCHC 32.3 (31.0-35.0) g/dl RDW 14.6 (11.0-16.0) % Plt Count 276 (160-400) X10*3/uL MPV 10.6 (9.4-12.3) fL Immature Gran % (Auto) 1.0 H (0.0-0.4) % Neut % (Auto) 69.0 (45-73) % Lymph % (Auto) 20.7 (20-40) % Isabella % (Auto) 7.6 (2-11) % Eos % (Auto) 1.5 (0-4) % Baso % (Auto) 0.2 (0-2) % Lymph # (Auto) 2.1 (1.2-4.9) X10*3/uL Isabella # (Auto) 0.8 (0.1-1.2) X10*3/uL Eos # (Auto) 0.2 (0.0-0.4) X10*3/uL Baso # (Auto) 0.0 (0.0-0.2) X10*3/uL Abs Immat Gran (auto) 0.10 H (0.00-0.03) X10*3/uL Absolute Neuts (auto) 7.0 (2.0-8.3) X10*3/uL Absolute Nucleated RBC 0.000 (0.0-0.012) X10*3/uL Nucleated RBC % (auto) 0.0 (0.0-0.2) /100WBC Sodium 141 (135-145) mmol/L Potassium 4.3 (3.3-5.1) mmol/L Chloride 107 (96-108) mmol/L Carbon Dioxide 22 (22-29) mmol/L Anion Gap 16 (12-20) BUN 23 H (9-16) mg/dL Creatinine 1.07 (0.5-1.4) mg/dL Estim Creat Clear Calc 60.4 Estimated GFR 53 Random Glucose 91 (60-115) mg/dL Calcium 8.9 (8.4-10.2) mg/dL Magnesium 2.6 (1.6-2.6) mg/dL Discharge Plan Discharge Clinical Impression: Headache Qualifiers: Headache type: tension-type Headache chronicity pattern: acute headache Intractability: not intractable Qualified Code(s): G44.209 - Tension-type headache, unspecified, not intractable Patient Disposition: Home, Self-Care Instructions: Acute Headache (ED) Additional Instructions: return to ED for any worsening symptoms or concerns YOU NEED TO FOLLOW UP WITH YOUR DOCTOR ON FRIDAY TO MAKE SURE THIS ISN'T A BLOOD VESSEL THAT IS INFLAMMED Prescriptions: New cyclobenzaprine 10 mg tablet 10 mg PO TID PRN (Reason: muscle spasm) Qty: 14 RF: 0 prednisone 20 mg tablet 40 mg PO DAILY 5 Days Qty: 10 RF: 0 zfpkbndqye-eyekmakefjrpr-bmxr 50-325-40 mg tablet 1 tab PO Q6H PRN (Reason: pain) Qty: 20 RF: 0 ondansetron 4 mg tablet,disintegrating 4 mg PO Q8H PRN (Reason: nausea and vomiting) Qty: 20 RF: 0 No Action phenazopyridine [Pyridium] 200 mg tablet 200 mg PO TID Qty: 6 RF: 0 prednisone 20 mg tablet 40 mg PO DAILY Qty: 10 RF: 0 hydroxyzine HCl 25 mg tablet 25 mg PO TID PRN (Reason: itching) Qty: 10 RF: 0 cetirizine 10 mg tablet 10 mg PO DAILY Qty: 30 RF: 0 Referrals: [facility] [Primary Care Provider] - 2 days (FRIDAY)
[2020-10-20 10:42] LABS: MANUAL DIFF FLAG NO
[2020-10-20 10:44] LABS: Basophils Percent Auto 0.2 % (0-2); Eosinophils Absolute Auto 0.2 X10*3/uL (0.0-0.4); Eosinophils Percent Auto 1.5 % (0-4); Hematocrit 36.2 % (37-47); Hemoglobin 11.7 g/dl (12.0-16.0); Lymphocytes Absolute Auto 2.1 X10*3/uL (1.2-4.9); Lymphocytes Percent Auto 20.7 % (20-40); Mean Corpuscular HGB Conc 32.3 g/dl (31.0-35.0); Mean Corpuscular Hemoglobin 27.7 pg (27.0-33.0); Mean Corpuscular Volume 85.8 fL (80-98); Mean Platelet Volume 10.6 fL (9.4-12.3); Monocytes Absolute Auto 0.8 X10*3/uL (0.1-1.2); Monocytes Percent Auto 7.6 % (2-11); Platelet Count 276 X10*3/uL (160-400); Red Blood Count 4.22 X10*6/uL (4.20-5.50); Red Cell Distribution Width 14.6 % (11.0-16.0); White Blood Count 10.1 X10*3/uL (4.8-10.8)
[2020-10-20] MEDS: Metoclopramide HCl 10 MG/2 ML VIAL 5 MG IVPUSH (10:46)
[2020-10-20] MEDS: dexAMETHasone sod phosphate 4 MG/ML VIAL 6 MG IVPUSH (10:46)
[2020-10-20] MEDS: Magnesium Sulfate/H2O 2 GM/50 ML PIGGYBACK IV (10:47)
[2020-10-20] MEDS: diphenhydrAMINE HCL 50 MG/ML VIAL 25 MG IVPUSH (10:47)
[2020-10-20] MEDS: 0.9 % Sodium Chloride 1,000 ML 999 ML IVCONT (10:48)
[2020-10-20 11:33] LABS: Anion Gap 16 (12-20); Blood Urea Nitrogen 23 mg/dL (9-16); Calcium 8.9 mg/dL (8.4-10.2); Carbon Dioxide 22 mmol/L (22-29); Chloride 107 mmol/L (96-108); Creatinine Clr Calc Pharmacy 60.4; Estimated Glomerular Filt Rate 53; Glucose Random 91 mg/dL (60-115); Magnesium 2.6 mg/dL (1.6-2.6); Potassium 4.3 mmol/L (3.3-5.1); Sodium 141 mmol/L (135-145)
[2020-10-20 11:40] VITALS: BP 134/76; PULSE 70; RESP 18; O2SAT 98
== END 2020-10-20 11:46 | disposition home or self-care (01) ==
PROVIDERS: Emergency Provider Emergency Medicine
DX: G44.209 Tension-type headache, unspecified, not intractable (principal); R21 Rash and other nonspecific skin eruption; E11.9 Type 2 diabetes mellitus without complications; J45.909 Unspecified asthma, uncomplicated; Z98.84 Bariatric surgery status
CPT/HCPCS: 36415; 80048; 83735; 85025; 96361; 96365; 96366; 96375; 99283; 99284; J1100; J1200; J2765; J3475

== ENCOUNTER 2020-10-20 20:26 | Emergency (ER) | payer MEDICAID, SELFPAY ==
--- NOTE | 2020-10-20 | ECG_ITS ---
Test Reason : CHEST PAIN Blood Pressure : / mmHG Vent. Rate : 075 BPM Atrial Rate : 075 BPM P-R Int : 168 ms QRS Dur : 086 ms QT Int : 400 ms P-R-T Axes : 045 -12 038 degrees QTc Int : 446 ms Normal sinus rhythm Normal ECG When compared with ECG of 15-OCT-2020 12:38, No significant change was found Referred By: Generic ED Physician Electronically Signed By:JULIO C FULTON MD
[2020-10-20 20:28] VITALS: BMI 45.1
[2020-10-20 20:35] VITALS: BP 133/87; PULSE 95; RESP 18; TEMP 36.8; O2SAT 99
--- NOTE | 2020-10-20 20:44 | ED_ITS ---
HPI - Chest Pain General Chief Complaint: Chest Pain Stated Complaint: chest pain Time Seen by Provider: 10/20/20 20:44 Source: patient and EMS Mode of arrival: EMS Limitations: no limitations History of Present Illness HPI narrative: Patient been here 5 times in last 1 week for multiple complaints with history of fibromyalgia migraine comes by ambulance for chest pain which just started prior to arrival 1 nitro and 3424 mg of aspirin was given in a patient complaining of headache upper back pain patient also has seen her PCP in 2 times this week and was here last night for migraine headache. Chest pain is sharp feel like gas bubble no nausea no vomiting no radiation of pain to the shoulder or jaw patient had similar pain in the past with anxiety Related Data Previous Rx's Medication Instructions Recorded phenazopyridine [Pyridium] 200 mg PO TID #6 tab 05/13/20 cetirizine 10 mg PO DAILY #30 tab 10/07/20 hydroxyzine HCl 25 mg PO TID PRN #10 tab 10/07/20 prednisone 40 mg PO DAILY #10 tab 10/07/20 wkccrzdpuy-jarcgrhanwnxw-ktgy 1 tab PO Q6H PRN #20 tab 10/20/20 cyclobenzaprine 10 mg PO TID PRN #14 tab 10/20/20 ondansetron 4 mg PO Q8H PRN #20 tab 10/20/20 prednisone 40 mg PO DAILY 5 Days #10 tab 10/20/20 Allergies Allergy/AdvReac Type Severity Reaction Status Date / Time morphine [MORPHINE] Allergy Intermediate PALPITATIONS, Verified 07/17/20 11:27 tachicardia quetiapine [Seroquel] Allergy Unknown Unknown Verified 07/17/20 11:27 orphenadrine [ORPHENADRINE] AdvReac Intermediate RAPID Verified 07/17/20 11:27 HEART RATE From SEROQUEL Allergy Intermediate ANXIOUS Uncoded 07/17/20 11:27 Review of Systems Review of Systems: Constitutional : No Weight loss, No Fever, No Chills ENT/Mouth : No sore throat, No Rhinorrhea Eyes: No Eye Pain, No Swelling Cardiovascular :+Chest Pain, no palpitations Respiratory : No Cough, No Sputum, no shortness of breath Gastrointestinal : no Nausea, No Vomiting, No Diarrhea, No abdominal Pain, no black stools Genitourinary : No Dysuria, No Urinary Frequency Musculoskeletal : No joint pain, No Myalgias, No Joint Swelling Skin : No Skin Lesions, No rash Neuro : No Weakness, No Numbness, No Dizziness, + Headache Psych : No Anxiety/Panic, No Depression Heme/Lymph: No Bruising, No Lymphadenopathy Endocrine : No Polyuria, No Polydipsia All other systems reviewed and are negative [facility] Past Medical History Medical History Asthma Depression Diabetes 1.5, managed as type 2 Fibromyalgia Migraine Surgical History Gastric bypass status for obesity Social History Social History Alcohol intake: current Patient Tobacco Use Status: Never used Tobacco Use of substances other than those prescribed or required for medical reasons: No Any prior treatment program specific to substance use: No Advance Directives: No Advance Directives Information Provided: No Patient : No Gender identity: female Physical Exam Vital Signs: Vital Signs: Last Vital Signs Temp 98.2 F 10/20/20 22:11 Pulse 82 10/20/20 22:11 Resp 18 10/20/20 22:11 BP 137/79 10/20/20 22:11 Pulse Ox 98 10/20/20 22:11 Body Mass Index 45.1 Appearance: Alert. Oriented X3. . Anxious with multiple complaints Eyes: PERRLA, No Nystagmus ENT: Pharynx normal. Oral Mucosa moist Neck: Normal inspection. Neck supple. CVS: Normal heart rate and rhythm. Pulses normal. Respiratory: No respiratory distress. Equal air entry bilateral, no wheezing/rales/rhonchi chest wall tenderness+ Abdomen: Soft and nontender. Bowel sounds are present, no mass palpable, no CVA tenderness Skin: Skin warm and dry. Normal skin color. Normal skin turgor. Extremities: No lower extremity edema. No calf tenderness Neuro: Oriented X 3. No motor deficit. No sensory deficit.No cerebellar signs , cranial nerves II-XII intact MDM - Chest Pain MDM Narrative Medical decision making narrative: Patient with atypical chest pain with fibromyalgia with history of similar pains in the past with workup negative EKG and normal . Patient's symptoms likely from anxiety and fibromyalgia no indication for further workup as the pain is very atypical and has been here 5 times in last 1 week. Will discharge patient home advised to follow with PCP Lab Data Attestation: I reviewed the patient's lab results. ECG Data ECG #1: Attestation: I personally reviewed and interpreted this ECG as follows: Interpretation: Normal sinus rhythm heart rate 75 beats per minute normal intervals normal axis no acute ST-T changes in impression normal EKG Scores Heart Score History: -0- slightly suspicious ECG: -0- normal Age: -1- >45 - <65 Risk factory: -0- no risk factors known Troponin: -0- < or = normal limit Score: 1 Risk: 1.7% Discharge Plan Discharge Clinical Impression: Atypical chest pain, Headache, Anxiety Patient Disposition: Home, Self-Care Instructions: Chest Pain (ED), Anxiety (ED), General Headache (ED) Additional Instructions: Follow with PCP/neurologist as scheduled Prescriptions: No Action cyclobenzaprine 10 mg tablet 10 mg PO TID PRN (Reason: muscle spasm) Qty: 14 RF: 0 prednisone 20 mg tablet 40 mg PO DAILY 5 Days Qty: 10 RF: 0 mwmvffcizl-quonufupwkihz-fbfc 50-325-40 mg tablet 1 tab PO Q6H PRN (Reason: pain) Qty: 20 RF: 0 ondansetron 4 mg tablet,disintegrating 4 mg PO Q8H PRN (Reason: nausea and vomiting) Qty: 20 RF: 0 phenazopyridine [Pyridium] 200 mg tablet 200 mg PO TID Qty: 6 RF: 0 prednisone 20 mg tablet 40 mg PO DAILY Qty: 10 RF: 0 hydroxyzine HCl 25 mg tablet 25 mg PO TID PRN (Reason: itching) Qty: 10 RF: 0 cetirizine 10 mg tablet 10 mg PO DAILY Qty: 30 RF: 0 Interventions: ED Discharge Assessment Last Done: 10/20/20 22:18 Discharge Date/Time: 10/20/20 22:19
[2020-10-20] MEDS: Magnesium Hydrox/Alum Hydrox 30 ML ORAL.SUSP PO (21:26)
--- NOTE | 2020-10-20 21:44 | PC.NURSE ---
coffee given per md order, pt stated 'i dont need this i'm not shaking =
[2020-10-20 22:11] VITALS: BP 137/79; PULSE 82; RESP 18; TEMP 36.8; O2SAT 98
== END 2020-10-20 22:19 | disposition home or self-care (01) ==
PROVIDERS: Emergency Provider Internal Medicine
DX: R07.89 Other chest pain (principal); R51.9 Headache, unspecified; F41.9 Anxiety disorder, unspecified; M79.7 Fibromyalgia; E13.9 Other specified diabetes mellitus without complications; Z79.899 Other long term (current) drug therapy; Z98.84 Bariatric surgery status
CPT/HCPCS: 93005; 96374; 99284; 99285; J3030

== ENCOUNTER 2020-10-25 10:59 | Emergency (ER) | payer MEDICAID, SELFPAY ==
[2020-10-25 11:05] VITALS: BP 129/73; PULSE 87; RESP 20; O2SAT 96; BMI 31.8
[2020-10-25] MEDS: diphenhydrAMINE HCL 50 MG/ML VIAL IVPUSH (12:37)
[2020-10-25] MEDS: Ketorolac Tromethamine 30 MG/ML VIAL IVPUSH (12:38)
[2020-10-25] MEDS: 0.9 % Sodium Chloride 1,000 ML 999 ML IVCONT (12:41)
[2020-10-25] MEDS: Metoclopramide HCl 10 MG/2 ML VIAL IVPUSH (12:46)
[2020-10-25 12:50] VITALS: BP 134/80; PULSE 76; RESP 17; O2SAT 98
--- NOTE | 2020-10-25 12:51 | ED_ITS ---
HPI - Headache General Chief Complaint: Headache Stated Complaint: HEADACHE FOR WEEKS Time Seen by Provider: 10/25/20 11:14 Source: patient Mode of arrival: ambulatory Limitations: no limitations History of Present Illness HPI Narrative: 60-year-old female with a past medical history of diabetes, asthma, fibromyalgia and Depression presenting to the ED with complaints of a right-sided headache that is throbbing in sensation with associated photophobia that started on 10/13/2020 and has been persistent since then despite multiple ER visits. She had a negative CT scan on 10/15/2020. Her ESR was 12. This will be the patient's 5th visit since 10/13/2020 this month. She has been taking the prescribed medication fear a set and she denies any symptomatic relief. She was also prescribed topiramate and reported that also was not helping. MD elicited complaint: headache Onset (ago): day(s) (10 days) Onset description: gradually and while at rest Location: right Severity: severe Pain scale (0-10): 10 Quality & Timing: throbbing Exacerbating factors: light, noise and other (Touching area of headache on r side and chewing) Relieving factors: nothing Context: occurred at rest Associated symptoms: nausea, photophobia and other (She also reports she feels like her face/anterior neck is swollen) Treatments prior to arrival: other (Fioricet no symptomatic relief) Related Data Previous Rx's Medication Instructions Recorded phenazopyridine [Pyridium] 200 mg PO TID #6 tab 05/13/20 cetirizine 10 mg PO DAILY #30 tab 10/07/20 hydroxyzine HCl 25 mg PO TID PRN #10 tab 10/07/20 prednisone 40 mg PO DAILY #10 tab 10/07/20 cafpvtazbf-cqmkhgkqfdzcc-sknn 1 tab PO Q6H PRN #20 tab 10/20/20 cyclobenzaprine 10 mg PO TID PRN #14 tab 10/20/20 ondansetron 4 mg PO Q8H PRN #20 tab 10/20/20 prednisone 40 mg PO DAILY 5 Days #10 tab 10/20/20 diphenhydramine HCl [Benadryl] 50 mg PO Q6-8H PRN #14 cap 10/25/20 metoclopramide HCl [Reglan] 10 mg PO Q6H PRN #30 tab 10/25/20 Allergies Allergy/AdvReac Type Severity Reaction Status Date / Time morphine [MORPHINE] Allergy Intermediate PALPITATIONS, Verified 07/17/20 11:27 tachicardia quetiapine [Seroquel] Allergy Unknown Unknown Verified 07/17/20 11:27 orphenadrine [ORPHENADRINE] AdvReac Intermediate RAPID Verified 07/17/20 11:27 HEART RATE From SEROQUEL Allergy Intermediate ANXIOUS Uncoded 07/17/20 11:27 Review of Systems Review of Systems: Constitutional : No changes in activity, No lethargy, No recent prior head injury, No agitation, No increased fussiness ENT/Mouth : No Ear Pain, No Nasal discharge/drainage Eyes: No Eye Pain, No Swelling, No Redness, No Foreign Body, No Vision Changes Cardiovascular : No Chest Pain, No SOB Respiratory : No Cough Gastrointestinal : Positive Nausea, No Vomiting, No abdominal Pain Genitourinary : No Dysuria, No Urinary Frequency, No Urinary Incontinence, No Urgency, No Flank Pain Musculoskeletal : No joint pain, No neck stiffness, No back pain/injury Skin : No lacerations Neuro : Positive headache, No unsteady gait, No Paresthesias, No Loss of Consciousness, No altered mental status, No dizziness Denies past medical history of HIV, recent trauma, coagulopathy, recent spinal/ epidural procedure, new medication, URI symptoms, close contacts with similar symptoms, tick bite, or known CO2 exposure. Yes all other systems are reviewed and are negative PMFSH Past Medical History Attestation statement: The following information was validated with the patient. Medical History Asthma Depression Diabetes 1.5, managed as type 2 Fibromyalgia Migraine Surgical History Gastric bypass status for obesity Social History Social History Alcohol intake: never Patient Tobacco Use Status: Never used Tobacco Use of substances other than those prescribed or required for medical reasons: No Advance Directives: No Advance Directives Information Provided: No Gender identity: female Physical Exam Vital Signs: Vital Signs: Last Vital Signs Pulse 76 10/25/20 12:50 Resp 17 10/25/20 12:50 BP 134/80 10/25/20 12:50 Pulse Ox 98 10/25/20 12:50 Body Mass Index 31.8 Vital signs have been reviewed as normal and appeared to be correct. Blood pressure normal. Heart rate normal. Respiration rate normal. Temperature normal. Oxygen saturation normal. Appearance: Alert. Oriented X3. No acute distress. Head: Normal external exam. Normocephalic. Atraumatic. Able to rotate head bilaterally. Eyes: PERRLA. EOMI. No nystagmus noted. Conjunctiva and sclera normal. Eyelids normal. Corneal reflex normal. ENT: EAC normal. TM's Normal. Hearing normal. Pharynx normal. Uvula midline. tongue midline. Moist mucous membranes. No trismus noted. No drooling noted. No muffled voice noted. Neck: Normal inspection. Neck supple. FROM. No adenopathy. Thyroid Normal. No meningeal signs. No neck mass noted. CVS: Normal heart rate and rhythm. Heart sound normal. No murmurs noted. Pulses normal throughout. Respiratory: No respiratory distress. Painless inspiration. Breath sounds normal. No wheezes/rales/rhonchi noted. Chest nontender. No accessory muscle usage noted or decreased air movement noted. Back: Full range of motion noted. Skin: Skin warm and dry. Normal skin color. Normal skin turgor. No rashes/lesions/lacerations noted. Extremities: Extremities exhibit normal range of motion. Extremities nontender. Able to shrug shoulders bilaterally and keep up against resistance. Neuro: Oriented X 3. No motor deficit. No sensory deficit. Reflexes normal. Moving all extremities. No focal motor deficits. Cranial nerves II-XI intact bilaterally. Facial strength normal. Normal cognition. Speech normal. Gait normal. Strength 5/5 throughout. No pronator drift. No tremor noted. No fasciculations noted. Muscle tone normal throughout. No asterixis noted. Gcnuiv-re-exei test normal. Heel to rosenberg test normal. Tandem gait normal. Does not sway with eyes open. Romberg test negative. Rapid alternating movement upper extremity normal. Rapid alternating movement lower extremity normal. Hand drop from overhead-Mrs. face. No rigidity noted. NIHSS score 0. Course Course Course Narrative: - Patient afebrile, resting comfortably in no distress. Non- toxic appearing. Patient denies any recent trauma/injury to head. Neurological exam shows no deficits. BP WNL. Denies any changes in vision. Patient ambulates without difficulty. Given the history, and physical - most likely diagnosis: Migraine FREEMAN. Therefore no imaging indicated at this time and patient had a negative CT on 10/15/2020. Will treat pain, and nausea. Will d/c with migraine medicaiton and advised to follow - up with PCP. Patient demonstrated good understanding of signs and symptoms to return to ED for further testing should sx worsen. gradual onset FREEMAN with photo/phonophobia, nausea. Pt states classic of previous migraine HAs. SAH: unlikely given gradual onset and similar to previous episodes Intracranial bleed: unlikely given neg trauma, neg anticoagulation Meningitis: unlikely given pt afebrile, neg stiff neck, no immune compromise. Exam without signs of meningismus Temporal arteritis: Unlikely given Neg jaw claudication, no temporal tenderness or nodularity on exam. Cerebral venous thrombosis: unlikely given no h/o hypercoaguable state, no chronic head/neck infection. MDM - Headache Medical Records Attestation: I reviewed the patient's medical records. Lab Data Attestation: I reviewed the patient's lab results. Result diagrams: 10/25/20 12:34 10/25/20 12:34 Labs: Lab Results 10/25/20 10/25/20 10/25/20 Range/Units 12:34 12:34 12:34 WBC 13.5 H (4.8-10.8) X10*3/uL RBC 4.15 L (4.20-5.50) X10*6/uL Hgb 11.6 L (12.0-16.0) g/dl Hct 35.2 L (37-47) % MCV 84.8 (80-98) fL MCH 28.0 (27.0-33.0) pg MCHC 33.0 (31.0-35.0) g/dl RDW 15.0 (11.0-16.0) % Plt Count 265 (160-400) X10*3/uL MPV 10.5 (9.4-12.3) fL Immature Gran % (Auto) 0.7 H (0.0-0.4) % Neut % (Auto) 69.8 (45-73) % Lymph % (Auto) 21.7 (20-40) % [place] % (Auto) 6.5 (2-11) % Eos % (Auto) 1.1 (0-4) % Baso % (Auto) 0.2 (0-2) % Lymph # (Auto) 2.9 (1.2-4.9) X10*3/uL [place] # (Auto) 0.9 (0.1-1.2) X10*3/uL Eos # (Auto) 0.2 (0.0-0.4) X10*3/uL Baso # (Auto) 0.0 (0.0-0.2) X10*3/uL Abs Immat Gran (auto) 0.09 H (0.00-0.03) X10*3/uL Absolute Neuts (auto) 9.4 H (2.0-8.3) X10*3/uL Absolute Nucleated RBC 0.000 (0.0-0.012) X10*3/uL Nucleated RBC % (auto) 0.0 (0.0-0.2) /100WBC ESR 13 (0-20) MM/HR PT (10.8-13.0) SEC INR (0.9-1.1) Sodium 139 (135-145) mmol/L Potassium 4.0 (3.3-5.1) mmol/L Chloride 105 (96-108) mmol/L Carbon Dioxide 23 (22-29) mmol/L Anion Gap 15 (12-20) BUN 29 H (9-16) mg/dL Creatinine 1.00 (0.5-1.4) mg/dL Estim Creat Clear Calc 66.7 Estimated GFR 57 Random Glucose 78 (60-115) mg/dL Calcium 9.3 (8.4-10.2) mg/dL Magnesium 2.4 (1.6-2.6) mg/dL Total Bilirubin 0.4 (0.0-1.0) mg/dL AST 31 D (5-31) U/L ALT 29 (0-31) U/L Alkaline Phosphatase 57 (39-117) U/L C-Reactive Protein 0.62 H (< or = 0.50) mg/dL Total Protein 6.8 (6.5-8.0) g/dL Albumin 4.2 (3.5-5.0) g/dL Ethyl Alcohol mg/dL 10/25/20 10/25/20 Range/Units 12:34 12:36 WBC (4.8-10.8) X10*3/uL RBC (4.20-5.50) X10*6/uL Hgb (12.0-16.0) g/dl Hct (37-47) % MCV (80-98) fL MCH (27.0-33.0) pg MCHC (31.0-35.0) g/dl RDW (11.0-16.0) % Plt Count (160-400) X10*3/uL MPV (9.4-12.3) fL Immature Gran % (Auto) (0.0-0.4) % Neut % (Auto) (45-73) % Lymph % (Auto) (20-40) % [place] % (Auto) (2-11) % Eos % (Auto) (0-4) % Baso % (Auto) (0-2) % Lymph # (Auto) (1.2-4.9) X10*3/uL [place] # (Auto) (0.1-1.2) X10*3/uL Eos # (Auto) (0.0-0.4) X10*3/uL Baso # (Auto) (0.0-0.2) X10*3/uL Abs Immat Gran (auto) (0.00-0.03) X10*3/uL Absolute Neuts (auto) (2.0-8.3) X10*3/uL Absolute Nucleated RBC (0.0-0.012) X10*3/uL Nucleated RBC % (auto) (0.0-0.2) /100WBC ESR (0-20) MM/HR PT 11.7 (10.8-13.0) SEC INR 1.0 (0.9-1.1) Sodium (135-145) mmol/L Potassium (3.3-5.1) mmol/L Chloride (96-108) mmol/L Carbon Dioxide (22-29) mmol/L Anion Gap (12-20) BUN (9-16) mg/dL Creatinine (0.5-1.4) mg/dL Estim Creat Clear Calc Estimated GFR Random Glucose (60-115) mg/dL Calcium (8.4-10.2) mg/dL Magnesium (1.6-2.6) mg/dL Total Bilirubin (0.0-1.0) mg/dL AST (5-31) U/L ALT (0-31) U/L Alkaline Phosphatase (39-117) U/L C-Reactive Protein (< or = 0.50) mg/dL Total Protein (6.5-8.0) g/dL Albumin (3.5-5.0) g/dL Ethyl Alcohol < 10 mg/dL Discharge Plan Discharge Clinical Impression: Migraine Patient Disposition: Home, Self-Care Instructions: Migraine Headache (ED) Prescriptions: New metoclopramide HCl [Reglan] 10 mg tablet 10 mg PO Q6H PRN (Reason: nausea and vomiting) Qty: 30 RF: 0 diphenhydramine HCl [Benadryl] 25 mg capsule 50 mg PO Q6-8H PRN (Reason: sleep) Qty: 14 RF: 0 No Action cyclobenzaprine 10 mg tablet 10 mg PO TID PRN (Reason: muscle spasm) Qty: 14 RF: 0 prednisone 20 mg tablet 40 mg PO DAILY 5 Days Qty: 10 RF: 0 jufjejwezh-ktwblxxayhylh-yvku 50-325-40 mg tablet 1 tab PO Q6H PRN (Reason: pain) Qty: 20 RF: 0 ondansetron 4 mg tablet,disintegrating 4 mg PO Q8H PRN (Reason: nausea and vomiting) Qty: 20 RF: 0 phenazopyridine [Pyridium] 200 mg tablet 200 mg PO TID Qty: 6 RF: 0 prednisone 20 mg tablet 40 mg PO DAILY Qty: 10 RF: 0 hydroxyzine HCl 25 mg tablet 25 mg PO TID PRN (Reason: itching) Qty: 10 RF: 0 cetirizine 10 mg tablet 10 mg PO DAILY Qty: 30 RF: 0 Referrals: [facility] [Primary Care Provider] - 2 days Print Language: Zambian
[2020-10-25 12:55] LABS: MANUAL DIFF FLAG NO
[2020-10-25 13:00] LABS: Basophils Percent Auto 0.2 % (0-2); Eosinophils Absolute Auto 0.2 X10*3/uL (0.0-0.4); Eosinophils Percent Auto 1.1 % (0-4); Hematocrit 35.2 % (37-47); Hemoglobin 11.6 g/dl (12.0-16.0); Imm Gran Abs Auto 0.09 X10*3/uL (0.00-0.03); Imm Gran Pct Auto 0.7 % (0.0-0.4); Lymphocytes Absolute Auto 2.9 X10*3/uL (1.2-4.9); Lymphocytes Percent Auto 21.7 % (20-40); Mean Corpuscular Volume 84.8 fL (80-98); Mean Platelet Volume 10.5 fL (9.4-12.3); Monocytes Absolute Auto 0.9 X10*3/uL (0.1-1.2); Monocytes Percent Auto 6.5 % (2-11); Neutrophils Absolute Auto 9.4 X10*3/uL (2.0-8.3); Neutrophils Percent Auto 69.8 % (45-73); Platelet Count 265 X10*3/uL (160-400); Red Blood Count 4.15 X10*6/uL (4.20-5.50); White Blood Count 13.5 X10*3/uL (4.8-10.8)
[2020-10-25 13:08] LABS: Prothrombin Time 11.7 SEC (10.8-13.0)
[2020-10-25 13:32] LABS: Ethanol < 10 mg/dL
[2020-10-25 13:34] LABS: Alanine Aminotransferase 29 U/L (0-31); Albumin Level 4.2 g/dL (3.5-5.0); Alkaline Phosphatase 57 U/L (39-117); Anion Gap 15 (12-20); Aspartate Amino Transferase 31 U/L (5-31); Bilirubin Total 0.4 mg/dL (0.0-1.0); Blood Urea Nitrogen 29 mg/dL (9-16); C Reactive Protein 0.62 mg/dL (< or = 0.50); Calcium 9.3 mg/dL (8.4-10.2); Carbon Dioxide 23 mmol/L (22-29); Chloride 105 mmol/L (96-108); Creatinine Clr Calc Pharmacy 66.7; Estimated Glomerular Filt Rate 57; Glucose Random 78 mg/dL (60-115); Magnesium 2.4 mg/dL (1.6-2.6); Sodium 139 mmol/L (135-145); Total Protein 6.8 g/dL (6.5-8.0)
[2020-10-25 13:41] LABS: Erythrocyte Sedimentation Rate 13 MM/HR (0-20)
[2020-10-25 13:47] LABS: Influenza A PCR NEGATIVE (Negative); Influenza B PCR NEGATIVE (Negative); Resp Syncy Virus RNA Qual PCR NEGATIVE (Negative); SARS COV2 PCR INHOUSE NEGATIVE (Negative)
== END 2020-10-25 14:11 | disposition home or self-care (01) ==
PROVIDERS: Physician Assistant Medical; Emergency Provider Emergency Medicine
DX: G43.009 Migraine without aura, not intractable, without status migrainosus (principal); E13.9 Other specified diabetes mellitus without complications; J45.909 Unspecified asthma, uncomplicated; Z79.899 Other long term (current) drug therapy; Z20.822 Contact with and (suspected) exposure to COVID-19; Z98.84 Bariatric surgery status
CPT/HCPCS: 0241U; 36415; 80053; 82077; 83735; 85025; 85610; 85652; 86140; 96361; 96374; 96375; 99284; 99285; J1100; J1200; J1885; J2765

== ENCOUNTER 2020-10-31 14:40 | Outpatient (REF) | payer MEDICAID, SELFPAY ==
--- NOTE | ~2020-10-31 | MR_ITS ---
EXAMINATION: MR CERVICAL SPINE WITHOUT CONTRAST CLINICAL INFORMATION: Headaches. Neck pain. Bilateral arm numbness with finger numbness. Prior surgery. COMPARISON: Most recent cervical spine radiographs dated 06/28/2015. Cervical spine MRI dated 02/10/2015. TECHNIQUE: MRI of the cervical spine was obtained using routine sequences without contrast. FINDINGS: VERTEBRAL BODIES AND PARASPINAL SOFT TISSUES: Anterior stabilization hardware with associated metallic artifact at C6-C7. No significant marrow edema to suggest hardware complication. Evaluation of the immediately adjacent osseous structures somewhat limited due to metallic artifact. Mild straightening of the normal cervical lordosis, which may be positional or related to muscular spasm. No acute fracture or subluxation. No loss of vertebral body height. No abnormal marrow edema to suggest acute osseous injury. No abnormal signal within the visualized cord. The paraspinal soft tissues are unremarkable. CERVICOMEDULLARY JUNCTION AND VISUALIZED POSTERIOR FOSSA: Unremarkable. SPINAL LEVELS: C2-C3: Shallow posterior central disc protrusion. No significant neural foraminal stenosis. C3-C4: Posterior central disc protrusion which nearly completely effaces the ventral thecal sac. No significant neural foraminal stenosis. Findings are unchanged. C4-C5: Broad-based disc-osteophyte complex with a shallow posterior central disc protrusion which completely effaces the ventral thecal sac. Bilateral facet arthropathy with no neural foraminal stenosis. Findings are unchanged. C5-C6: Broad-based disc-osteophyte complex which completely effaces the ventral thecal sac and minimally indents the adjacent cord. Bilateral facet arthropathy without significant neural foraminal stenosis. Disc bulge has slightly increased when compared to the prior examination. C6-C7: No significant disc bulge. No central canal or neural foraminal stenosis. C7-T1: No significant disc bulge. No central canal or neural foraminal stenosis. MR/MR cervical spine wo con IMPRESSION: 1. Anterior stabilization hardware at C6-C7 without evidence of hardware complication. Previously seen disc bulge has resolved. 2. Broad-based disc-osteophyte complex at C5-C6 which has increased in prominence when compared to the prior examination. This completely effaces the ventral thecal sac and minimally indents the adjacent cord. Bilateral facet arthropathy without significant neural foraminal stenosis. 3. Broad-based disc-osteophyte complex at C4-C5 with a shallow posterior central disc protrusion which completely effaces the ventral thecal sac. Bilateral facet arthropathy without significant central canal stenosis. Findings are unchanged. 4. Posterior central disc protrusion at C3-C4 which nearly completely effaces the ventral thecal sac. No significant neural foraminal stenosis. Findings are unchanged when compared to the prior examination.
== END 2020-10-31 14:41 | disposition home or self-care (01) ==
LOC: HO.MRI 14:40
PROVIDERS: PCP Internal Medicine; Visit Provider Nurse Practitioner Women's Health
DX: M48.02 Spinal stenosis, cervical region (principal)
CPT/HCPCS: 72141

== ENCOUNTER 2020-11-10 16:35 | Emergency (ER) | payer MEDICAID, SELFPAY ==
[2020-11-10 16:51] VITALS: BP 164/78; PULSE 83; RESP 16; TEMP 36.8; O2SAT 99; BMI 31.1
--- NOTE | 2020-11-10 18:27 | ED.GENADULT ---
HPI - General Adult General Chief complaint: General Medical Stated complaint: rash Time Seen by Provider: 11/10/20 17:27 Source: patient Mode of arrival: ambulatory Limitations: no limitations History of Present Illness HPI narrative: 60 y/o female with history of fibromyalgia, asthma, depression presenting with ongoing itchy red rash that has been present all over her body for about 1-2 weeks along with new onset small bruising all over that she noticed yesterday. She reports small scattered bruises on her arms and legs and does not recall any trauma. She is not on anticoagulation or aspirin. She denies any new soaps, detergents, lotions or creams. She has been taking benadryl without improvement in the rash or the itching. No wheezing, SOB or facial swelling. She reports her cheeks are newly reddened and flushed. She denies fever, chills, N/V/D, joint pain, muscle pain. MD complaint: rash and ecchymosis Onset (ago): day(s) Location: head, face, left, right, upper extremity and lower extremity Radiation: non-radiation Severity: moderate Quality: aching and other (itchy) Pain Consistency: intermittent Relieving factors: cold therapy and medication Exacerbating factors: none Treatments prior to arrival: none Related Data Previous Rx's Medication Instructions Recorded phenazopyridine [Pyridium] 200 mg PO TID #6 tab 05/13/20 cetirizine 10 mg PO DAILY #30 tab 10/07/20 hydroxyzine HCl 25 mg PO TID PRN #10 tab 10/07/20 prednisone 40 mg PO DAILY #10 tab 10/07/20 dsrhcdbumr-gfftoiozccnuj-zwnz 1 tab PO Q6H PRN #20 tab 10/20/20 cyclobenzaprine 10 mg PO TID PRN #14 tab 10/20/20 ondansetron 4 mg PO Q8H PRN #20 tab 10/20/20 prednisone 40 mg PO DAILY 5 Days #10 tab 10/20/20 diphenhydramine HCl [Benadryl] 50 mg PO Q6-8H PRN #14 cap 10/25/20 metoclopramide HCl [Reglan] 10 mg PO Q6H PRN #30 tab 10/25/20 prednisone 10 mg PO PER PKG DIR #48 ea 11/10/20 Allergies Allergy/AdvReac Type Severity Reaction Status Date / Time morphine [MORPHINE] Allergy Intermediate PALPITATIONS, Verified 07/17/20 11:27 tachicardia quetiapine [Seroquel] Allergy Unknown Unknown Verified 07/17/20 11:27 orphenadrine [ORPHENADRINE] AdvReac Intermediate RAPID Verified 07/17/20 11:27 HEART RATE From SEROQUEL Allergy Intermediate ANXIOUS Uncoded 07/17/20 11:27 Review of Systems Review of Systems: Constitutional: No Fever, No Chills ENT/Mouth: No sore throat, No Rhinorrhea, No Swallowing Difficulty Eyes: No Eye Pain, No Swelling, No Redness Cardiovascular: No Chest Pain, No SOB Respiratory: No Cough, No Sputum Gastrointestinal: No Nausea, No Vomiting, No Diarrhea, No abdominal Pain Musculoskeletal: No joint pain, No Myalgias Skin: No Skin Lesions, + rash Neuro: No Weakness, No Numbness, No Dizziness, No Headache Psych: + Anxiety/Panic, No Depression Heme/Lymph: No Bruising, No Lymphadenopathy PMFSH Past Medical History Attestation statement: The following information was validated with the patient. Medical History Asthma Depression Diabetes 1.5, managed as type 2 Fibromyalgia Migraine Surgical History Gastric bypass status for obesity Social History Social History Alcohol intake: never Patient Tobacco Use Status: Never used Tobacco Advance Directives: No Advance Directives Information Provided: Yes Gender identity: female Physical Exam Vital Signs: Vital Signs: Last Vital Signs Temp 98.2 F 11/10/20 16:51 Pulse 83 11/10/20 16:51 Resp 16 11/10/20 16:51 BP 164/78 H 11/10/20 16:51 Pulse Ox 99 11/10/20 16:51 Body Mass Index 31.1 Appearance: Alert. Oriented X3. No acute distress. Eyes: Pupils equal, round and reactive to light. ENT: Pharynx normal. Neck: Normal inspection. Neck supple. CVS: Normal heart rate and rhythm. Pulses normal. Respiratory: No respiratory distress. Breath sounds normal. Abdomen: Soft and nontender. +BS x4 Skin: Skin warm and dry. Normal skin color. Normal skin turgor. scattered erythematous maclopapular rash on right forearm, left inner thigh, left knee, bilateral cheeks, right neck. no purpura. Extremities: scattered small ecchymosis on bilateral upper and lower extremities in various stages of healing. Neuro: Oriented X 3. No motor deficit. No sensory deficit. Course Course Course Narrative: 60 y/o female presenting with pruritic rash x1-2 weeks unclear etiology. No relief with Benadryl. Ecchymosis is small, scattered and appears to be various ages. No palpable purpura. Does not appear to be vasculitis. Will check coags, plaetlets and basic labs. Prednisone ordered for rash. Reevaluation(s) Reevaluation #1: Labs are normal. Unclear etiology of ecchymosis but all areas are very small and do not seem to be clinically significant. Will prescribe prednisone taper and have her f/u with her PCP on Friday. Patient agrees with plan. Medical Decision Making Lab Data Result diagrams: 11/10/20 18:34 11/10/20 18:34 Labs: Lab Results 11/10/20 11/10/20 11/10/20 Range/Units 18:34 18:34 18:34 WBC 8.1 (4.8-10.8) X10*3/uL RBC 4.14 L (4.20-5.50) X10*6/uL Hgb 11.6 L (12.0-16.0) g/dl Hct 35.7 L (37-47) % MCV 86.2 (80-98) fL MCH 28.0 (27.0-33.0) pg MCHC 32.5 (31.0-35.0) g/dl RDW 15.6 (11.0-16.0) % Plt Count 280 (160-400) X10*3/uL MPV 10.4 (9.4-12.3) fL Immature Gran % (Auto) 0.5 H (0.0-0.4) % Neut % (Auto) 60.5 (45-73) % Lymph % (Auto) 29.5 (20-40) % [place] % (Auto) 7.4 (2-11) % Eos % (Auto) 1.9 (0-4) % Baso % (Auto) 0.2 (0-2) % Lymph # (Auto) 2.4 (1.2-4.9) X10*3/uL [place] # (Auto) 0.6 (0.1-1.2) X10*3/uL Eos # (Auto) 0.2 (0.0-0.4) X10*3/uL Baso # (Auto) 0.0 (0.0-0.2) X10*3/uL Abs Immat Gran (auto) 0.04 H (0.00-0.03) X10*3/uL Absolute Neuts (auto) 4.9 (2.0-8.3) X10*3/uL Absolute Nucleated RBC 0.000 (0.0-0.012) X10*3/uL Nucleated RBC % (auto) 0.0 (0.0-0.2) /100WBC PT 11.8 (9.9-13.0) SEC INR 1.0 (0.9-1.1) APTT 33.1 (24.1-38.0) SEC Sodium 142 (135-145) mmol/L Potassium 4.2 (3.3-5.1) mmol/L Chloride 109 H (96-108) mmol/L Carbon Dioxide 23 (22-29) mmol/L Anion Gap 14 (12-20) BUN 23 H (9-16) mg/dL Creatinine 1.05 (0.5-1.4) mg/dL Estim Creat Clear Calc 62.7 Estimated GFR 54 Random Glucose 94 (60-115) mg/dL Calcium 9.5 (8.4-10.2) mg/dL Discharge Plan Discharge Clinical Impression: Rash, Ecchymosis Patient Disposition: Home, Self-Care Instructions: Dermatitis (ED), Ecchymosis (ED) Additional Instructions: Your lab workup was unremarkable. Take the prescribed prednisone taper as directed starting tomorrow. Take Benadryl 50 mg every 6 hours as needed for itching. Follow up with your doctor on Friday. If you develop new or worsening symptoms call 911 or come back to the ER for further evaluation. Prescriptions: New prednisone 10 mg tablets,dose pack 10 mg PO PER PKG DIR Qty: 48 RF: 0 No Action cyclobenzaprine 10 mg tablet 10 mg PO TID PRN (Reason: muscle spasm) Qty: 14 RF: 0 prednisone 20 mg tablet 40 mg PO DAILY 5 Days Qty: 10 RF: 0 avyxlurbpd-zakwmyzykadfb-muey 50-325-40 mg tablet 1 tab PO Q6H PRN (Reason: pain) Qty: 20 RF: 0 ondansetron 4 mg tablet,disintegrating 4 mg PO Q8H PRN (Reason: nausea and vomiting) Qty: 20 RF: 0 phenazopyridine [Pyridium] 200 mg tablet 200 mg PO TID Qty: 6 RF: 0 prednisone 20 mg tablet 40 mg PO DAILY Qty: 10 RF: 0 hydroxyzine HCl 25 mg tablet 25 mg PO TID PRN (Reason: itching) Qty: 10 RF: 0 cetirizine 10 mg tablet 10 mg PO DAILY Qty: 30 RF: 0 metoclopramide HCl [Reglan] 10 mg tablet 10 mg PO Q6H PRN (Reason: nausea and vomiting) Qty: 30 RF: 0 diphenhydramine HCl [Benadryl] 25 mg capsule 50 mg PO Q6-8H PRN (Reason: sleep) Qty: 14 RF: 0
[2020-11-10 18:42] LABS: MANUAL DIFF FLAG NO
[2020-11-10 18:48] LABS: Basophils Percent Auto 0.2 % (0-2); Eosinophils Absolute Auto 0.2 X10*3/uL (0.0-0.4); Eosinophils Percent Auto 1.9 % (0-4); Hematocrit 35.7 % (37-47); Hemoglobin 11.6 g/dl (12.0-16.0); Imm Gran Abs Auto 0.04 X10*3/uL (0.00-0.03); Imm Gran Pct Auto 0.5 % (0.0-0.4); Lymphocytes Absolute Auto 2.4 X10*3/uL (1.2-4.9); Lymphocytes Percent Auto 29.5 % (20-40); Mean Corpuscular HGB Conc 32.5 g/dl (31.0-35.0); Mean Corpuscular Volume 86.2 fL (80-98); Mean Platelet Volume 10.4 fL (9.4-12.3); Monocytes Absolute Auto 0.6 X10*3/uL (0.1-1.2); Monocytes Percent Auto 7.4 % (2-11); Neutrophils Absolute Auto 4.9 X10*3/uL (2.0-8.3); Neutrophils Percent Auto 60.5 % (45-73); Platelet Count 280 X10*3/uL (160-400); Red Blood Count 4.14 X10*6/uL (4.20-5.50); Red Cell Distribution Width 15.6 % (11.0-16.0); White Blood Count 8.1 X10*3/uL (4.8-10.8)
[2020-11-10 18:57] LABS: Prothrombin Time 11.8 SEC (9.9-13.0)
[2020-11-10 19:00] LABS: Partial Thromboplastin Time 33.1 SEC (24.1-38.0)
[2020-11-10 19:04] LABS: Anion Gap 14 (12-20); Blood Urea Nitrogen 23 mg/dL (9-16); Calcium 9.5 mg/dL (8.4-10.2); Carbon Dioxide 23 mmol/L (22-29); Chloride 109 mmol/L (96-108); Creatinine Clr Calc Pharmacy 62.7; Estimated Glomerular Filt Rate 54; Glucose Random 94 mg/dL (60-115); Potassium 4.2 mmol/L (3.3-5.1); Sodium 142 mmol/L (135-145)
[2020-11-10] MEDS: diphenhydrAMINE HCL 25 MG TABLET 50 MG PO (19:11)
[2020-11-10] MEDS: predniSONE 20 MG TABLET 60 MG PO (19:11)
== END 2020-11-10 20:05 | disposition home or self-care (01) ==
PROVIDERS: Physician Assistant; Emergency Provider Internal Medicine; PCP Internal Medicine
DX: R21 Rash and other nonspecific skin eruption (principal); S40.022A Contusion of left upper arm, initial encounter; S40.021A Contusion of right upper arm, initial encounter; S80.12XA Contusion of left lower leg, initial encounter; S80.11XA Contusion of right lower leg, initial encounter; X58.XXXA Exposure to other specified factors, initial encounter; E11.9 Type 2 diabetes mellitus without complications; Y93.9 Activity, unspecified; Y92.9 Unspecified place or not applicable; Y99.9 Unspecified external cause status; Z98.84 Bariatric surgery status
CPT/HCPCS: 36415; 80048; 85025; 85610; 85730; 99283; 99284; Q0163

== ENCOUNTER 2020-11-15 11:50 | Outpatient (REF) | payer MEDICAID, SELFPAY ==
[2020-11-15 14:10] LABS: Alanine Aminotransferase 25 U/L (0-31); Albumin Level 4.2 g/dL (3.5-5.0); Alkaline Phosphatase 68 U/L (39-117); Anion Gap 17 (12-20); Aspartate Amino Transferase 28 U/L (5-31); Bilirubin Total 0.4 mg/dL (0.0-1.0); Blood Urea Nitrogen 15 mg/dL (9-16); Calcium 9.2 mg/dL (8.4-10.2); Carbon Dioxide 23 mmol/L (22-29); Chloride 106 mmol/L (96-108); Estimated Glomerular Filt Rate > 60; Glucose Random 81 mg/dL (60-115); Potassium 4.6 mmol/L (3.3-5.1); Sodium 141 mmol/L (135-145); Total Protein 6.8 g/dL (6.5-8.0)
[2020-11-15 14:34] LABS: Free T4 (Free Thyroxine) 0.91 ng/dL (0.71-1.85); Thyroid Stimulating Hormone 0.81 uIU/mL (0.32-4.0)
== END 2020-11-15 11:51 | disposition home or self-care (01) ==
LOC: HO.LAB 11:50
PROVIDERS: PCP Internal Medicine; Visit Provider Nurse Practitioner Women's Health
DX: G89.4 Chronic pain syndrome (principal)
CPT/HCPCS: 36415; 80053; 84439; 84443

== ENCOUNTER → 2020-12-11 09:49 | Outpatient (BNVA) | payer MEDICAID, SELFPAY | PROVIDERS: PCP Internal Medicine; Referring Provider Internal Medicine; Visit Provider Nurse Practitioner Family | DX: Z12.11 Encounter for screening for malignant neoplasm of colon (principal) | CPT/HCPCS: 99202 ==

== ENCOUNTER 2020-12-28 18:38 | Emergency (ER) | payer MEDICAID, SELFPAY | END 2020-12-28 22:24 | disposition left against medical advice (07) | PROVIDERS: Emergency Provider Emergency Medicine | DX: R51.9 Headache, unspecified (principal) ==

== ENCOUNTER 2021-01-03 10:05 | Outpatient (REF) | payer MEDICAID, SELFPAY ==
--- NOTE | ~2021-01-03 | MR_ITS ---
EXAMINATION: MR ANGIOGRAPHY BRAIN WITHOUT CONTRAST CLINICAL INFORMATION: Cerebral aneurysm. Right-sided headache. Pulsatile symptoms on the right side. COMPARISON: Brain MRI from 11/28/2017. TECHNIQUE: 3D [id number] MR angiography was performed through the brain without the use of intravenous gadolinium and axial source images were reviewed along with rotating MIPs. FINDINGS: Normal flow-related signal within the anterior circulation without evidence of focal stenosis or occlusion of the intradural internal carotid, middle cerebral, or anterior cerebral arteries. The A1 segment of the right anterior cerebral artery is diminutive. Normal flow-related signal within the posterior circulation without evidence of focal stenosis or occlusion of the intradural vertebral, basilar, superior cerebellar, or posterior cerebral arteries. The P1 segment of the left posterior cerebral artery is diminutive. Robust flow across the left-sided posterior communicating artery consistent with origin of the left posterior cerebral artery. No demonstrated intradural aneurysms. Mild chronic white matter disease. No additional significant abnormalities on limited evaluation of the intracranial structures. MR/MR angio head wo con IMPRESSION: MRA of the head without proximal occlusion or flow-limiting stenosis. No demonstrated intracranial aneurysm.
== END 2021-01-03 10:06 | disposition home or self-care (01) ==
LOC: HO.MRI 10:05
PROVIDERS: Visit Provider Psychiatry & Neurology Neurology
DX: I67.1 Cerebral aneurysm, nonruptured (principal)
CPT/HCPCS: 70544

== ENCOUNTER 2021-01-05 11:50 | Day surgery (SDC) | payer MEDICAID, SELFPAY ==
[2021-01-01 11:20] VITALS: BMI 29.6
--- NOTE | 2021-01-04 08:52 | HO.ANESPROP2 ---
HPI - Anesthesia Eval Consult details Narrative: 60yo F for Colonoscopy ? daily prednisone PMFSH Active Problems Active Problems: All Active Problems (Updated 11/11/20 @ 00:01 by Raymon Alaniz) Migraine (Acute) Fibromyalgia (Acute) Diabetes 1.5, managed as type 2 (Acute) Depression (Acute) Asthma (Acute) Past Medical History Medical History Asthma Depression Diabetes 1.5, managed as type 2 Fibromyalgia Migraine Surgical History Surgical History (Updated 01/01/21 @ 11:12 by Kaitlynn Ford RN) Gastric bypass status for obesity H/O colonoscopy History of pubovaginal sling Hx of bilateral breast reduction surgery Hx of oophorectomy Social History Social History Alcohol intake: never Patient Tobacco Use Status: Never used Tobacco Use of substances other than those prescribed or required for medical reasons: No Are you DNR?: No Advance Directives: No Advance Directives Information Provided: Yes Recently lost weight without trying: No Nutrition Risks: No Nutritional Risk Gender identity: Female Meds Allergies Allergy/AdvReac Type Severity Reaction Status Date / Time morphine [MORPHINE] Allergy Intermediate PALPITATIONS, Verified 12/11/20 10:10 tachicardia quetiapine [Seroquel] Allergy Unknown Unknown Verified 12/11/20 10:10 orphenadrine [ORPHENADRINE] AdvReac Intermediate RAPID Verified 12/11/20 10:10 HEART RATE Home Medications Medication Instructions Recorded Confirmed Last Taken Type albuterol sulfate 90 mcg/actuation 2 PO Q4-6H PRN 01/01/21 Unknown History aerosol inhaler amlodipine 5 mg tablet 1 tab PO DAILY 01/01/21 01/01/21 01/05/21 History aripiprazole 20 mg tablet 1 tab PO DAILY 01/01/21 01/01/21 Unknown History clonazepam 1 mg tablet (Klonopin) 1 tab PO TID PRN 01/01/21 01/01/21 Unknown History fluticasone propionate 110 2 PO BID 01/01/21 Unknown History mcg/actuation HFA aerosol inhaler (Flovent HFA) fluticasone propionate 50 1 - 2 spray INTRANASAL DAILY PRN 01/01/21 01/01/21 Unknown History mcg/actuation nasal spray,suspension gabapentin 300 mg capsule 1 cap PO BEDTIME 01/01/21 01/01/21 Unknown History hydrochlorothiazide 12.5 mg tablet 1 tab PO DAILY 01/01/21 01/01/21 Unknown History lisinopril 30 mg tablet 1 tab PO DAILY 01/01/21 01/01/21 Unknown History metformin 500 mg tablet,extended 1 tab PO BID 01/01/21 01/01/21 Unknown History release 24 hr topiramate 25 mg tablet 1 tab PO BID 01/01/21 01/01/21 01/05/21 History trazodone 100 mg tablet 3 tab PO BEDTIME 01/01/21 01/01/21 Unknown History venlafaxine 150 mg 2 cap PO QAM 01/01/21 01/01/21 01/05/21 History capsule,extended release 24 hr Exam Exam Date and Time: January 04, 2021 0878 Height,Weight and Vital Signs: Height 5 ft 5 in Weight 80.796 kg Pertinent Lab Results Pertinent Lab Results: Laboratory Tests 11/10/20 11/15/20 18:34 12:04 WBC 8.1 Hgb 11.6 L Hct 35.7 L Plt Count 280 Sodium 141 Potassium 4.6 Chloride 106 Carbon Dioxide 23 BUN 15 Creatinine 0.85 Assessment and Plan Assessment Anesthesia Assessment: Chart Reviewed
[2021-01-05 13:08] VITALS: BMI 28.9
[2021-01-05 13:17] VITALS: BP 111/74; PULSE 71; RESP 16; TEMP 36.2; O2SAT 98
[2021-01-05 13:28] LABS: Glucose, Whole Blood 80 mg/dL (60-115)
[2021-01-05] MEDS: Lactated Ringers 1,000 ML 100 ML IVCONT (13:42)
--- NOTE | 2021-01-05 14:19 | MHC.SHP ---
Pre-Procedural Eval Section A Date of Service: 01/05/21 The patient is an INPATIENT: No Changes since office visit: Yes Patient answered all questions; No Cold of Flu in the past 2 weeks, No New Medical Problems and No Changes in Medication The History & Physical has been completed within 30 days and I have reviewed it.: Yes Section B Chief Complaint: screening Allergies: Allergies Allergy/AdvReac Type Severity Reaction Status Date / Time morphine [MORPHINE] Allergy Intermediate PALPITATIONS, Verified 12/11/20 10:10 tachicardia quetiapine [Seroquel] Allergy Unknown Unknown Verified 12/11/20 10:10 orphenadrine [ORPHENADRINE] AdvReac Intermediate RAPID Verified 12/11/20 10:10 HEART RATE Plan I have reviewed the history and physical and performed a pertinent physical examination on my patient. No changes have occurred unless specified.
--- NOTE | 2021-01-05 14:23 | P.BOP_ITS ---
Brief Operative Note Date of Service: 01/05/21 Pre-op diagnosis: Colon cancer screening, chronic constipation Post-op diagnosis: other (Diverticulosis, fair prep) Procedure: COLONOSCOPY TILL CECUM Consent: Indications for the procedure and potential complications of bleeding, perforation, reaction to medications and missed diagnosis were discussed with the patient and informed consent was obtained. Instrument: Olympus PCF H 190 L variable stiffness pediatric colonoscope Monitoring: Vital signs and clinical assessment, intermittent blood pressure monitoring, continuous EKG monitoring, Pulse oximetry and Carbon Dioxide monitoring were done throughout the procedure. Colon withdrawl time was 18 minutes. Procedure: The patient was placed in the left lateral decubitis position and pre-procedure medications were administered. After a digital rectal examination of the ano-rectum, the video colonoscope was inserted into the rectum and advanced through the colon to the cecum. The colonoscope was slowly withdrawn in a retrograde panoramic fashion and the colon mucosa was carefully examined including a retroflexed view of the rectum. Findings and interventions are described below. Procedure Difficulty: LLQ pressure applied to intubate the cecum Findings: Terminal Ileum: Not evaluated Cecum: Normal Ascending Colon: Normal Transverse Colon: Normal Descending Colon: Normal Sigmoid Colon: Moderate diverticulosis Rectum: Normal Ano-rectum: Hypertrophied anal papillae Colon preparation: Fair despite copious irrigation Impression and Post Procedure Diagnosis: Colonoscopy Findings: No polyps were detected. Prep was fair with scattered semi-solid stool wich could not be suctioned Moderate diverticulosis seen in the sigmoid colon Plan: Patient has an appointment on 01/22/21 in the GI Clinic with Ernestina Garza FNP-BC . Repeat Colonoscopy in 1-2 yrs due to fair prep. Adult colonoscope for future colonoscopies. Above findings were reviewed with the patient and diverticulosis handouts were given in the discharge area Surgeon: nÁgel Lopez MD Anesthesia: MAC (Cyndi Reed CRNA) Was an Television Announcer used for this Procedure?: Yes Television Announcer: Elsa Breen Estimated blood loss (mL): 0 Pathology: none sent Condition: stable Disposition: PACU
[2021-01-05 15:11] VITALS: BP 106/69; PULSE 68; RESP 16; TEMP 36.9; O2SAT 96
[2021-01-05 15:26] VITALS: BP 136/90; PULSE 70; RESP 18; TEMP 36.9; O2SAT 98
--- NOTE | 2021-01-06 14:51 | W.PM.OPN ---
Operative Note Operative Note Date of Service: 01/05/21 Narrative: Pre-op diagnosis:?Colon cancer screening, chronic constipation Post-op diagnosis:?other (Diverticulosis, fair prep) Procedure:? COLONOSCOPY TILL CECUM Consent: Indications for the procedure and potential complications of bleeding, perforation, reaction to medications and missed diagnosis were discussed with the patient and informed consent was obtained. Instrument: Olympus PCF H 190 L variable stiffness pediatric colonoscope Monitoring: Vital signs and clinical assessment, intermittent blood pressure monitoring, continuous EKG monitoring, Pulse oximetry and Carbon Dioxide monitoring were done throughout the procedure. Colon withdrawl time was 18? minutes. Procedure: The patient was placed in the left lateral decubitis position and pre-procedure medications were administered. After a digital rectal examination of the ano-rectum, the video colonoscope was inserted into the rectum and advanced through the colon to the cecum. The colonoscope was slowly withdrawn in a retrograde panoramic fashion and the colon mucosa was carefully examined including a retroflexed view of the rectum. Findings and interventions are described below. Procedure Difficulty:? LLQ pressure applied to intubate the cecum Findings: Terminal Ileum: Not evaluated Cecum:? Normal Ascending Colon:? Normal Transverse Colon:? Normal Descending Colon:? Normal Sigmoid Colon:? Moderate diverticulosis Rectum:? Normal Ano-rectum:? Hypertrophied anal papillae Colon preparation: ? Fair despite copious irrigation Impression and Post Procedure Diagnosis: Colonoscopy Findings: No polyps were detected. Prep was fair with scattered semi-solid stool wich could not be suctioned Moderate diverticulosis seen in the sigmoid colon Plan: Patient has an appointment on 01/22/21 in the GI Clinic with ? Ernestina Garza, DRILL[employer] ENGINEER[employer]STA . Repeat Colonoscopy in 1-2 yrs due to fair prep.? Adult colonoscope for future colonoscopies. Above findings were reviewed with the patient and? diverticulosis handouts were given in the discharge area Surgeon:?Ángel Lopez MD Anesthesia:?MAC (Cyndi Reed CRNA) Was an Control Systems Specialist used for this Procedure?:?Yes Control Systems Specialist:?Elsa Breen Estimated blood loss (mL):?0 Pathology:?none sent Condition:?stable Disposition:?PACU
== END 2021-01-05 16:10 | disposition home or self-care (01) ==
PROVIDERS: PCP Internal Medicine; Visit Provider Internal Medicine Gastroenterology
PROC: 0DJD8ZZ Inspection of Lower Intestinal Tract, Via Natural or Artificial Opening Endoscopic (ICD-10-PCS; CPT 45378; principal; 2021-01-05 13:30)
DX: Z12.11 Encounter for screening for malignant neoplasm of colon (principal); K57.30 Diverticulosis of large intestine without perforation or abscess without bleeding; K59.09 Other constipation; E13.9 Other specified diabetes mellitus without complications
CPT/HCPCS: 45378; 82947

== ENCOUNTER → 2021-01-22 11:26 | Outpatient (BNVA) | payer MEDICAID, SELFPAY | PROVIDERS: Visit Provider Nurse Practitioner Family ==

== ENCOUNTER 2021-01-28 16:21 | Emergency (ER) | payer MEDICAID, SELFPAY ==
[2021-01-28 16:28] VITALS: BP 132/82; PULSE 75; O2SAT 95
[2021-01-28 16:33] VITALS: BP 126/78; PULSE 69; RESP 16; TEMP 36.5; O2SAT 98; BMI 27.3
--- NOTE | 2021-01-28 18:24 | ED.HA ---
HPI - Headache General Chief Complaint: Headache Stated Complaint: headache Time Seen by Provider: 01/28/21 18:09 Source: patient Mode of arrival: ambulatory Limitations: no limitations History of Present Illness HPI Narrative: 60-year-old female with a past medical history of diabetes, asthma, fibromyalgia and Depression presenting to the ED with complaints of a generalized headache that is throbbing in sensation with associated photophobia that started on 01/22/2021. h/o multiple ED visits for same. Normally treated with IV medication with improvement of symptoms. Negative CT scan on 10/15/2020.? No reports of new injury or fall or trauma. She is on Topamax. With Fioricet p.r.n.. Followed by Neurology. No nausea, vomiting, dizziness, vision changes. Feels very typical to her previous migraines Related Data Home Medications Medication Instructions Recorded Confirmed albuterol sulfate 90 mcg/actuation 2 PO Q4-6H PRN 01/01/21 aerosol inhaler amlodipine 5 mg tablet 1 tab PO DAILY 01/01/21 01/01/21 aripiprazole 20 mg tablet 1 tab PO DAILY 01/01/21 01/01/21 clonazepam 1 mg tablet (Klonopin) 1 tab PO TID PRN 01/01/21 01/01/21 fluticasone propionate 110 2 PO BID 01/01/21 mcg/actuation HFA aerosol inhaler (Flovent HFA) fluticasone propionate 50 1 - 2 spray INTRANASAL DAILY PRN 01/01/21 01/01/21 mcg/actuation nasal spray,suspension gabapentin 300 mg capsule 1 cap PO BEDTIME 01/01/21 01/01/21 hydrochlorothiazide 12.5 mg tablet 1 tab PO DAILY 01/01/21 01/01/21 lisinopril 30 mg tablet 1 tab PO DAILY 01/01/21 01/01/21 metformin 500 mg tablet,extended 1 tab PO BID 01/01/21 01/01/21 release 24 hr topiramate 25 mg tablet 1 tab PO BID 01/01/21 01/01/21 trazodone 100 mg tablet 3 tab PO BEDTIME 01/01/21 01/01/21 venlafaxine 150 mg 2 cap PO QAM 01/01/21 01/01/21 capsule,extended release 24 hr Previous Rx's Medication Instructions Recorded phenazopyridine 200 mg tablet 200 mg PO TID #6 tab 05/13/20 (Pyridium) cetirizine 10 mg tablet 10 mg PO DAILY #30 tab 10/07/20 hydroxyzine HCl 25 mg tablet 25 mg PO TID PRN #10 tab 10/07/20 prednisone 20 mg tablet 40 mg PO DAILY #10 tab 10/07/20 hjhjbobtcw-mlgyexmabfdxk-ihelcetx 1 tab PO Q6H PRN #20 tab 10/20/20 50 mg-325 mg-40 mg tablet cyclobenzaprine 10 mg tablet 10 mg PO TID PRN #14 tab 10/20/20 ondansetron 4 mg disintegrating 4 mg PO Q8H PRN #20 tab 10/20/20 tablet prednisone 20 mg tablet 40 mg PO DAILY 5 Days #10 tab 10/20/20 diphenhydramine HCl 25 mg capsule 50 mg PO Q6-8H PRN #14 cap 10/25/20 (Benadryl) metoclopramide HCl 10 mg tablet 10 mg PO Q6H PRN #30 tab 10/25/20 (Reglan) prednisone 10 mg tablets in a dose 10 mg PO PER PKG DIR #48 ea 11/10/20 pack sennosides 8.6 mg tablet (Natural 8.6 mg PO BEDTIME #30 tab 01/22/21 Senna Laxative) Allergies Allergy/AdvReac Type Severity Reaction Status Date / Time morphine [MORPHINE] Allergy Intermediate PALPITATIONS, Verified 01/22/21 11:28 tachicardia quetiapine [Seroquel] Allergy Unknown Unknown Verified 01/22/21 11:28 orphenadrine [ORPHENADRINE] AdvReac Intermediate RAPID Verified 01/22/21 11:28 HEART RATE Review of Systems Review of Systems: Yes all other systems are reviewed and are negative Constitutional: Constitutional: Reports no additional constitutional complaints, Denies body ache(s), Denies chills, Denies fever(s), Reports headache(s) and Denies weakness Eyes: Eyes: Reports no additional eye complaints, Denies change in vision and Reports photophobia ENT: Reports system reviewed and no additional complaints, except as documented, Denies dizziness, Reports headache(s), Denies nasal congestion, Denies nasal discharge and Denies neck pain Cardiovascular: Cardiovascular: Reports no additional cardiovascular complaints, Denies chest pain, Denies leg edema and Denies dyspnea Respiratory: Respiratory: Reports no additional respiratory complaints, Denies cough and Denies dyspnea Gastrointestinal: Gastrointestinal: Reports no additional gastrointestinal complaints, Denies abdominal pain, Denies diarrhea, Denies nausea and Denies vomiting Genitourinary: Genitourinary: Reports no additional female genitourinary complaints and Denies urinary incontinence Musculoskeletal: Musculoskeletal: Reports no additional musculoskeletal complaints, Denies back pain, Denies arthralgias, Denies joint swelling, Denies neck pain, Denies numbness and Denies tingling Integumentary/Breasts: Skin/Breast: Reports system reviewed and no additional complaints, except as docu and Denies rash Neurologic: Reports system reviewed and no additional complaints, except as documented, Denies Abnormal speech present, Denies dizziness, Reports headache(s), Denies numbness, Denies tingling and Denies weakness PMFSH Past Medical History Attestation statement: The following information was validated with the patient. Source: old records reviewed and nursing notes reviewed Medical History Asthma Chronic idiopathic constipation Depression Diabetes 1.5, managed as type 2 Diverticulosis Fibromyalgia Migraine Surgical History Gastric bypass status for obesity H/O colonoscopy History of pubovaginal sling Hx of bilateral breast reduction surgery Hx of oophorectomy Social History Social History Alcohol intake: never Patient Tobacco Use Status: Never used Tobacco Advance Directives: No Advance Directives Information Provided: No Gender identity: Female Physical Exam Vital Signs: Vital Signs: Last Vital Signs Temp 97 F 01/28/21 19:02 Pulse 82 01/28/21 19:02 Resp 18 01/28/21 19:02 BP 107/64 01/28/21 19:02 Pulse Ox 98 01/28/21 19:02 Body Mass Index 27.3 Const: General: cooperative, healthy appearing, comfortable and no acute distress Orientation/consciousness: patient oriented x3 Limitations: no limitations HENMT: Head: Yes normal to inspection Ears: hearing grossly normal bilaterally General nose exam: Normal external nose present Face and sinus: Yes normal facial exam Mouth: Normal oral and palatal mucosa present Throat: Yes posterior oropharynx normal Eyes: General: appearance normal, both eyes and all related structures Pupils: Equal, round and reactive pupils present Direct Ophthalmoscopy: photophobia Neck: Neck: Yes normal visual inspection Chest: Chest palpation & inspection: normal inspection of the chest Resp: Effort & Inspection: normal respiratory effort Auscultation: clear to auscultation bilaterally Cardio: Rate: regular rate Rhythm: regular rhythm Peripheral pulses: Peripheral pulses 2+ throughout GI: Inspection: Yes normal to inspection Palpation (GI): Soft to palpation and nontender Auscultation: normal bowel sounds Back/Spine/Pelvis: Thoracic/Lumbar Spine: thoracic and lumbar spine normal to inspection Skin: General skin exam: no rashes or lesions noted Neuro: General: patient oriented x3, no focal motor deficits and normal sensation to monofilament Cranial nerves: Yes CN's II-XII intact bilaterally, Yes Equal, round and reactive pupils present, Yes Bilaterally intact EOM present, Yes Nystagmus not present, Yes Normal facial strength present and Yes Midline tongue present Cognition (Neuro): normal cognition Speech: No Abnormal speech present Gait exam (Neuro): Normal gait present Motor exam (neuro): 5/5 motor strength present throughout Sensory Exam: Normal double simultaneous stimulation for sensation Coordination: [id number] test normal, jhjl-qn-[id number] test normal and tandem gait normal Extrem: General: Yes normal to inspection, Yes no pedal edema and Yes no calf tenderness Course Course Course Narrative: Generalized headache with photophobia x6 days with history of migraine and feels similar. Normal neuro exam. Hemodynamically stable. Patient tells me normally she has improvement with IV medications. Will give normal saline bolus, IV Reglan and Benadryl. 2000-headache resolved. Patient tolerating p.o.. Recommend she follow up with her neurologist as she has been here in the ER multiple times for the same thing. Reviewed worrisome signs and symptoms of when to return to the emergency department. Comfortable discharge home. MDM - Headache MDM Narrative Medical decision making narrative: gradual onset FREEMAN with photo/phonophobia, nausea. Pt states classic of previous migraine HAs. SAH: unlikely given gradual onset and similar to previous episodes Intracranial bleed: unlikely given neg trauma, neg anticoagulation Meningitis: unlikely given pt afebrile, neg stiff neck, no immune compromise. Exam without signs of meningismus Temporal arteritis: Unlikely given Neg jaw claudication, no temporal tenderness or nodularity on exam. Cerebral venous thrombosis: unlikely given no h/o hypercoaguable state, no chronic head/neck infection. Differential Diagnosis Differential diagnosis: Likely migraine Medical Records Attestation: I reviewed the patient's medical records. Lab Data Attestation: I reviewed the patient's lab results. Discharge Plan Discharge Clinical Impression: Migraine Patient Disposition: Home, Self-Care Instructions: Migraine Headache (ED) Additional Instructions: You have had multiple visits for migraine headaches. You should call your neurologist tomorrow for follow-up appointment Prescriptions: No Action cyclobenzaprine 10 mg tablet 10 mg PO TID PRN (Reason: muscle spasm) Qty: 14 RF: 0 prednisone 20 mg tablet 40 mg PO DAILY 5 Days Qty: 10 RF: 0 qolryixyux-ghvwqoauvaknh-hnhz 50-325-40 mg tablet 1 tab PO Q6H PRN (Reason: pain) Qty: 20 RF: 0 ondansetron 4 mg tablet,disintegrating 4 mg PO Q8H PRN (Reason: nausea and vomiting) Qty: 20 RF: 0 metformin 500 mg tablet extended release 24 hr 1 tab PO BID RF: 0 clonazepam [Klonopin] 1 mg tablet 1 tab PO TID PRN (Reason: Anxiety) RF: 0 venlafaxine 150 mg capsule,extended release 24hr 2 cap PO QAM RF: 0 topiramate 25 mg tablet 1 tab PO BID RF: 0 amlodipine 5 mg tablet 1 tab PO DAILY RF: 0 trazodone 100 mg tablet 3 tab PO BEDTIME RF: 0 lisinopril 30 mg tablet 1 tab PO DAILY RF: 0 gabapentin 300 mg capsule 1 cap PO BEDTIME RF: 0 albuterol sulfate 90 mcg/actuation HFA aerosol inhaler 2 PO Q4-6H PRN (Reason: Wheezing) RF: 0 fluticasone propionate 50 mcg/actuation spray,suspension 1 - 2 spray intranasal DAILY PRN (Reason: Nasal Congestion) RF: 0 Flovent HFA 110 mcg/actuation HFA aerosol inhaler 2 PO BID RF: 0 aripiprazole 20 mg tablet 1 tab PO DAILY RF: 0 hydrochlorothiazide 12.5 mg tablet 1 tab PO DAILY RF: 0 phenazopyridine [Pyridium] 200 mg tablet 200 mg PO TID Qty: 6 RF: 0 prednisone 20 mg tablet 40 mg PO DAILY Qty: 10 RF: 0 hydroxyzine HCl 25 mg tablet 25 mg PO TID PRN (Reason: itching) Qty: 10 RF: 0 cetirizine 10 mg tablet 10 mg PO DAILY Qty: 30 RF: 0 metoclopramide HCl [Reglan] 10 mg tablet 10 mg PO Q6H PRN (Reason: nausea and vomiting) Qty: 30 RF: 0 diphenhydramine HCl [Benadryl] 25 mg capsule 50 mg PO Q6-8H PRN (Reason: sleep) Qty: 14 RF: 0 prednisone 10 mg tablets,dose pack 10 mg PO PER PKG DIR Qty: 48 RF: 0 sennosides [Natural Senna Laxative] 8.6 mg tablet 8.6 mg PO BEDTIME Qty: 30 RF: 3 Referrals: Yuli Gottlieb MD [Physician] - 2 days
[2021-01-28] MEDS: 0.9 % Sodium Chloride 2,000 ML 999 ML IV (18:57)
[2021-01-28] MEDS: diphenhydrAMINE HCL 50 MG/ML VIAL 25 MG IVPUSH (18:59)
[2021-01-28] MEDS: Metoclopramide HCl 10 MG/2 ML VIAL IVPUSH (19:00)
[2021-01-28 19:02] VITALS: BP 107/64; PULSE 82; RESP 18; TEMP 36.1; O2SAT 98
== END 2021-01-28 20:15 | disposition home or self-care (01) ==
PROVIDERS: Emergency Provider Internal Medicine
DX: G43.909 Migraine, unspecified, not intractable, without status migrainosus (principal); M79.7 Fibromyalgia; Z79.899 Other long term (current) drug therapy
CPT/HCPCS: 96361; 96374; 96375; 99283; 99284; J1200; J2765

== ENCOUNTER 2021-01-30 12:36 | Emergency (ER) | payer MEDICAID, SELFPAY ==
--- NOTE | ~2021-01-30 | CT_ITS ---
EXAMINATION: CT HEAD WITHOUT CONTRAST CLINICAL INFORMATION: Headache COMPARISON: CT head October 2020 TECHNIQUE: Contiguous axial imaging was performed from the skull base to vertex without intravenous administration of contrast. This CT examination was performed using dose optimization techniques as appropriate, variously including the following: *Automated exposure control *Adjustment of mA and/or kV according to patient size (this includes techniques or standardized protocols for targeted exams where dose is matched to indication/reason for exam; i.e. extremities or head) *Use of iterative reconstruction technique DLP: 636 mGy-cm FINDINGS: There is no evidence of acute intracranial hemorrhage or territorial infarction. No abnormal mass effect or midline shift is seen. [place] to white matter differentiation is well preserved. No extra-axial fluid collections are identified. The ventricles are normal in size. There is no abnormal attenuation within the brain parenchyma. The osseous structures and soft tissues are normal. Small left maxillary polyp measuring 5 mm. This is unchanged. CT/CT head/brain wo con IMPRESSION: No acute intracranial pathology.
[2021-01-30 12:46] VITALS: BP 128/59; BP 134/69; PULSE 86; PULSE 89; RESP 20; TEMP 36.8; O2SAT 98; O2SAT 99; BMI 26.6
[2021-01-30 13:01] LABS: Hematocrit 37.3 % (37-47); Hemoglobin 12.3 g/dl (12.0-16.0); Mean Corpuscular Volume 84.8 fL (80-98); Mean Platelet Volume 10.4 fL (9.4-12.3); Platelet Count 252 X10*3/uL (160-400); Red Cell Distribution Width 13.9 % (11.0-16.0)
[2021-01-30 13:29] LABS: Anion Gap 17 (12-20); Blood Urea Nitrogen 16 mg/dL (9-16); Carbon Dioxide 19 mmol/L (22-29); Chloride 109 mmol/L (96-108); Creatinine Clr Calc Pharmacy 68.8; Estimated Glomerular Filt Rate > 60; Glucose Random 117 mg/dL (60-115); Potassium 4.9 mmol/L (3.3-5.1); Sodium 140 mmol/L (135-145)
[2021-01-30] MEDS: Ketorolac Tromethamine 15 MG/ML VIAL 30 MG IVPUSH (15:54)
[2021-01-30] MEDS: diphenhydrAMINE HCL 50 MG/ML VIAL IVPUSH (15:54)
[2021-01-30] MEDS: Metoclopramide HCl 10 MG/2 ML VIAL IVPUSH (15:54)
[2021-01-30] MEDS: dexAMETHasone sod phosphate 4 MG/ML VIAL 8 MG IVPUSH (15:54)
[2021-01-30] MEDS: Butalb/Acetamin/Caff 50/325/40 TABLET 2 TAB PO (15:55)
[2021-01-30] MEDS: Magnesium Sulfate/D5W 1 GM/100 ML PIGGYBACK IV (15:55)
--- NOTE | 2021-01-30 16:14 | ED.HA ---
HPI - Headache General Chief Complaint: Headache Stated Complaint: TENSION HEADACHE X'S 1 WEEK Time Seen by Provider: 01/30/21 15:24 Source: patient Mode of arrival: ambulatory Limitations: no limitations History of Present Illness HPI Narrative: Patient presents to the ED for migraine exacerbation. Patient states headache with photophobia. Patient states having these symptoms for weeks. Patient states she has migraines exacerbation on and off every week. Patient denies any recent head trauma or any blood thinners. Patient has been to the ER multiple times for same complaint. Patient has had normal CT scan in October. Also on January 03 patient had a normal MRA all having similar symptoms she had today. Patient denies any chest pain or shortness of breath. Patient states any slurred speech, loss of vision, or paralysis of extremities. Patient states having these headaches for months. Patient being follow-up with neurology who diagnosed as migraine. Patient was prescribed prednisone by her neruologist she states does not help. Related Data Home Medications Medication Instructions Recorded Confirmed albuterol sulfate 90 mcg/actuation 2 PO Q4-6H PRN 01/01/21 aerosol inhaler amlodipine 5 mg tablet 1 tab PO DAILY 01/01/21 01/01/21 aripiprazole 20 mg tablet 1 tab PO DAILY 01/01/21 01/01/21 clonazepam 1 mg tablet (Klonopin) 1 tab PO TID PRN 01/01/21 01/01/21 fluticasone propionate 110 2 PO BID 01/01/21 mcg/actuation HFA aerosol inhaler (Flovent HFA) fluticasone propionate 50 1 - 2 spray INTRANASAL DAILY PRN 01/01/21 01/01/21 mcg/actuation nasal spray,suspension gabapentin 300 mg capsule 1 cap PO BEDTIME 01/01/21 01/01/21 hydrochlorothiazide 12.5 mg tablet 1 tab PO DAILY 01/01/21 01/01/21 lisinopril 30 mg tablet 1 tab PO DAILY 01/01/21 01/01/21 metformin 500 mg tablet,extended 1 tab PO BID 01/01/21 01/01/21 release 24 hr topiramate 25 mg tablet 1 tab PO BID 01/01/21 01/01/21 trazodone 100 mg tablet 3 tab PO BEDTIME 01/01/21 01/01/21 venlafaxine 150 mg 2 cap PO QAM 01/01/21 01/01/21 capsule,extended release 24 hr Previous Rx's Medication Instructions Recorded phenazopyridine 200 mg tablet 200 mg PO TID #6 tab 05/13/20 (Pyridium) cetirizine 10 mg tablet 10 mg PO DAILY #30 tab 10/07/20 hydroxyzine HCl 25 mg tablet 25 mg PO TID PRN #10 tab 10/07/20 prednisone 20 mg tablet 40 mg PO DAILY #10 tab 10/07/20 bpwxzgpdth-opkfhzhjxkcew-lpymhwir 1 tab PO Q6H PRN #20 tab 10/20/20 50 mg-325 mg-40 mg tablet cyclobenzaprine 10 mg tablet 10 mg PO TID PRN #14 tab 10/20/20 ondansetron 4 mg disintegrating 4 mg PO Q8H PRN #20 tab 10/20/20 tablet prednisone 20 mg tablet 40 mg PO DAILY 5 Days #10 tab 10/20/20 diphenhydramine HCl 25 mg capsule 50 mg PO Q6-8H PRN #14 cap 10/25/20 (Benadryl) metoclopramide HCl 10 mg tablet 10 mg PO Q6H PRN #30 tab 10/25/20 (Reglan) prednisone 10 mg tablets in a dose 10 mg PO PER PKG DIR #48 ea 11/10/20 pack sennosides 8.6 mg tablet (Natural 8.6 mg PO BEDTIME #30 tab 01/22/21 Senna Laxative) Allergies Allergy/AdvReac Type Severity Reaction Status Date / Time morphine [MORPHINE] Allergy Intermediate PALPITATIONS, Verified 01/22/21 11:28 tachicardia quetiapine [Seroquel] Allergy Unknown Unknown Verified 01/22/21 11:28 orphenadrine [ORPHENADRINE] AdvReac Intermediate RAPID Verified 01/22/21 11:28 HEART RATE Review of Systems Constitutional: Constitutional: Reports as per HPI, Reports no additional constitutional complaints and Reports headache(s) Eyes: Eyes: Reports as per HPI and Reports no additional eye complaints Comments: Photophobia ENT: Reports system reviewed and no additional complaints, except as documented, Reports as per HPI and Reports headache(s) Cardiovascular: Cardiovascular: Reports as per HPI and Reports no additional cardiovascular complaints Respiratory: Respiratory: Reports as per HPI and Reports no additional respiratory complaints Gastrointestinal: Gastrointestinal: Reports as per HPI and Reports no additional gastrointestinal complaints Genitourinary: Genitourinary: Reports no additional female genitourinary complaints and Reports as per HPI Musculoskeletal: Musculoskeletal: Reports no additional musculoskeletal complaints and Reports as per HPI Neurologic: Reports system reviewed and no additional complaints, except as documented, Reports as per HPI and Reports headache(s) Psychiatric: Psychiatric: Reports no additional psychiatric complaints and Reports as per HPI [facility] Past Medical History Medical History Asthma Chronic idiopathic constipation Depression Diabetes 1.5, managed as type 2 Diverticulosis Fibromyalgia Migraine Surgical History Gastric bypass status for obesity H/O colonoscopy History of pubovaginal sling Hx of bilateral breast reduction surgery Hx of oophorectomy Social History Social History Alcohol intake: never Patient Tobacco Use Status: Never used Tobacco Advance Directives: No Advance Directives Information Provided: No Patient : No Gender identity: Female Physical Exam Vital Signs: Vital Signs: Last Vital Signs Temp 98.2 F 01/30/21 12:46 Pulse 76 01/30/21 16:16 Resp 15 01/30/21 19:42 BP 139/82 01/30/21 16:16 Pulse Ox 100 01/30/21 16:16 Body Mass Index 26.6 Const: General: cooperative and healthy appearing Orientation/consciousness: patient oriented x3 HENMT: Head: Yes normal to inspection, Yes No palpable skull fracture present, Yes normocephalic, Yes atraumatic and No abrasion Eyes: Other: Photophobia General: appearance normal, both eyes and all related structures Neck: Neck: Yes normal visual inspection, Yes full ROM, Yes no lymphadenopathy, Yes no meningeal signs, Yes trachea midline, Yes supple and No tender Chest: Chest palpation & inspection: normal inspection of the chest and normal palpation of entire chest wall Resp: Effort & Inspection: normal respiratory effort and able to speak in complete sentences Auscultation: clear to auscultation bilaterally Cardio: Jugular venous distension: no JVD Heart sounds: S1 normal heart sound present and S2 normal heart sound present GI: Inspection: Yes normal to inspection and No abdominal wall ecchymosis Palpation (GI): Soft to palpation, not firm, nontender, no guarding and not rigid : General: No CVA tenderness and Yes no CVA tenderness Back/Spine/Pelvis: Back: no CVA tenderness, No CVA tenderness, No ecchymosis and No back tenderness Skin: General skin exam: no rashes or lesions noted and elasticity normal Neuro: Other: Negative facial droop. Negative slurred speech. All extremities equal strength 5+. Negative pronator drift. Gdxwgp-wn-twvg or rapid hand movement intact. Negative Romberg General: patient oriented x3, gait normal, moves all extremities, Normal light touch and pain sensation, no meningeal signs and CN's II-XI intact bilaterally Cranial nerves: Yes CN's II-XII intact bilaterally Extrem: General: Yes normal to inspection and Yes full ROM Psych: Appearance: grossly normal, well kempt and not disheveled Course Course Course Narrative: Labs are normal. . Will give migraine cocktail. Patient has upcoming appointment with neurologist. Reevaluation(s) Reevaluation #1: Patient labs negative for elevated white blood cell count. Patient still having headache after migraine cocktail was sent for repeat head CT scan. Time: 17:30 Reevaluation #2: Head CT scan came back normal. After Imitrex and Dilaudid patient's migraine improved and resolved. Patient to be discharged and follow-up with Neurology. Do Not suspect a meningitis. Not suspecting cavernous sinus thrombosis. Not suspecting temporal arthritis. Case discussed with Isauro messina who agree with plan. Time: 21:22 MDM - Headache MDM Narrative Medical decision making narrative: Intractable migraine exacerbation Lab Data Result diagrams: 01/30/21 12:55 01/30/21 12:55 Labs: Lab Results 01/30/21 01/30/21 Range/Units 12:55 12:55 WBC 10.0 (4.8-10.8) X10*3/uL RBC 4.40 (4.20-5.50) X10*6/uL Hgb 12.3 (12.0-16.0) g/dl Hct 37.3 (37-47) % MCV 84.8 (80-98) fL MCH 28.0 (27.0-33.0) pg MCHC 33.0 (31.0-35.0) g/dl RDW 13.9 (11.0-16.0) % Plt Count 252 (160-400) X10*3/uL MPV 10.4 (9.4-12.3) fL Absolute Nucleated RBC 0.000 (0.0-0.012) X10*3/uL Nucleated RBC % (auto) 0.0 (0.0-0.2) /100WBC Sodium 140 (135-145) mmol/L Potassium 4.9 (3.3-5.1) mmol/L Chloride 109 H (96-108) mmol/L Carbon Dioxide 19 L (22-29) mmol/L Anion Gap 17 (12-20) BUN 16 (9-16) mg/dL Creatinine 0.89 (0.5-1.4) mg/dL Estim Creat Clear Calc 68.8 Estimated GFR > 60 Random Glucose 117 H (60-115) mg/dL Calcium 9.0 (8.4-10.2) mg/dL Discharge Plan Discharge Clinical Impression: Migraine Patient Disposition: Home, Self-Care Instructions: Migraine Headache (ED) Additional Instructions: Please follow-up with your neurologist for better control of your migraine. Return to ED for any chest pain, shortness of breath, neck stiffness, slurred speech, loss of vision, paralysis of extremities, worsening headache, or any other concerning symptoms. Prescriptions: No Action cyclobenzaprine 10 mg tablet 10 mg PO TID PRN (Reason: muscle spasm) Qty: 14 RF: 0 prednisone 20 mg tablet 40 mg PO DAILY 5 Days Qty: 10 RF: 0 vkjxpimeeb-ellstqucljzgf-xqwt 50-325-40 mg tablet 1 tab PO Q6H PRN (Reason: pain) Qty: 20 RF: 0 ondansetron 4 mg tablet,disintegrating 4 mg PO Q8H PRN (Reason: nausea and vomiting) Qty: 20 RF: 0 metformin 500 mg tablet extended release 24 hr 1 tab PO BID RF: 0 clonazepam [Klonopin] 1 mg tablet 1 tab PO TID PRN (Reason: Anxiety) RF: 0 venlafaxine 150 mg capsule,extended release 24hr 2 cap PO QAM RF: 0 topiramate 25 mg tablet 1 tab PO BID RF: 0 amlodipine 5 mg tablet 1 tab PO DAILY RF: 0 trazodone 100 mg tablet 3 tab PO BEDTIME RF: 0 lisinopril 30 mg tablet 1 tab PO DAILY RF: 0 gabapentin 300 mg capsule 1 cap PO BEDTIME RF: 0 albuterol sulfate 90 mcg/actuation HFA aerosol inhaler 2 PO Q4-6H PRN (Reason: Wheezing) RF: 0 fluticasone propionate 50 mcg/actuation spray,suspension 1 - 2 spray intranasal DAILY PRN (Reason: Nasal Congestion) RF: 0 Flovent HFA 110 mcg/actuation HFA aerosol inhaler 2 PO BID RF: 0 aripiprazole 20 mg tablet 1 tab PO DAILY RF: 0 hydrochlorothiazide 12.5 mg tablet 1 tab PO DAILY RF: 0 phenazopyridine [Pyridium] 200 mg tablet 200 mg PO TID Qty: 6 RF: 0 prednisone 20 mg tablet 40 mg PO DAILY Qty: 10 RF: 0 hydroxyzine HCl 25 mg tablet 25 mg PO TID PRN (Reason: itching) Qty: 10 RF: 0 cetirizine 10 mg tablet 10 mg PO DAILY Qty: 30 RF: 0 metoclopramide HCl [Reglan] 10 mg tablet 10 mg PO Q6H PRN (Reason: nausea and vomiting) Qty: 30 RF: 0 diphenhydramine HCl [Benadryl] 25 mg capsule 50 mg PO Q6-8H PRN (Reason: sleep) Qty: 14 RF: 0 prednisone 10 mg tablets,dose pack 10 mg PO PER PKG DIR Qty: 48 RF: 0 sennosides [Natural Senna Laxative] 8.6 mg tablet 8.6 mg PO BEDTIME Qty: 30 RF: 3 Referrals: Elizabeth Dunn MD [Primary Care Provider] - 2 days (Intractable migraine.) Interventions: ED Discharge Assessment Last Done: 01/30/21 21:32 Discharge Date/Time: 01/30/21 21:33 Print Language: Guatemalan
[2021-01-30 16:16] VITALS: BP 139/82; PULSE 76; RESP 18; O2SAT 100
[2021-01-30 19:42] VITALS: RESP 15
[2021-01-30] MEDS: HYDROmorphone HCl 0.5 MG/0.5 ML SYRINGE IVPUSH (19:42)
[2021-01-30] MEDS: diphenhydrAMINE HCL 50 MG/ML VIAL 25 MG IVPUSH (21:04)
== END 2021-01-30 21:33 | disposition home or self-care (01) ==
PROVIDERS: Emergency Provider Emergency Medicine Emergency Medical Services; PCP Internal Medicine
DX: G43.909 Migraine, unspecified, not intractable, without status migrainosus (principal); Z79.899 Other long term (current) drug therapy
CPT/HCPCS: 36415; 70450; 80048; 85027; 96365; 96366; 96372; 96375; 96376; 99284; J1100; J1170; J1200; J1885; J2765; J3030; J3475

== ENCOUNTER 2021-02-19 15:04 | Emergency (ER) | payer MEDICAID, SELFPAY ==
[2021-02-19 15:18] VITALS: BP 100/51; PULSE 84; RESP 18; TEMP 36.9; O2SAT 100; BMI 28.3
[2021-02-19 15:35] LABS: Appearance Urine HAZY; Color Urine DK YELLOW; Glucose Urine UA NEG (NEG); Leukocyte Esterase Urine NEG (NEG); Nitrite Urine NEG (NEG); PH 5.5 (5.0-8.0); Specific Gravity - Urine >= 1.030 (1.005-1.025); Urine Blood NEG (NEG); Urine Ketones 5 MG/DL (NEG); Urine Protein NEG (NEG-TRACE)
== END 2021-02-19 20:40 | disposition left against medical advice (07) ==
PROVIDERS: Emergency Provider Emergency Medicine; PCP Internal Medicine
DX: R10.9 Unspecified abdominal pain (principal)
CPT/HCPCS: 81003; 99283

== ENCOUNTER 2021-02-21 09:00 | Outpatient (REF) | payer MEDICAID, SELFPAY | END 2021-02-21 09:01 | disposition home or self-care (01) | LOC: HO.LAB 09:00 | PROVIDERS: PCP Internal Medicine; Visit Provider Internal Medicine Nephrology | DX: N39.0 Urinary tract infection, site not specified (principal) | CPT/HCPCS: 87086 ==

== ENCOUNTER 2021-02-21 12:20 | Emergency (ER) | payer MEDICAID, SELFPAY ==
--- NOTE | ~2021-02-21 | CT_ITS ---
EXAMINATION: CT ABDOMEN AND PELVIS WITHOUT CONTRAST CLINICAL INFORMATION: Right flank pain and history of kidney stones COMPARISON: Previous CT of the abdomen and pelvis May 2019 TECHNIQUE: Multidetector volumetric imaging was performed from the superior aspect of the liver through the pubic symphysis. Sagittal and coronal reformatted images were obtained on the technologist's workstation. This CT examination was performed using dose optimization techniques as appropriate, variously including the following: *Automated exposure control *Adjustment of mA and/or kV according to patient size (this includes techniques or standardized protocols for targeted exams where dose is matched to indication/reason for exam; i.e. extremities or head) *Use of iterative reconstruction technique DLP: 598 mGy-cm FINDINGS: LUNG BASES: There is scarring or subsegmental atelectasis at the left lung base. LIVER, GALLBLADDER, AND BILIARY TREE: The liver is normal in size, shape, and attenuation. No focal hepatic lesion or biliary ductal dilatation is present. The gallbladder is unremarkable with no evidence of radiopaque gallstones, gallbladder wall thickening, or obvious pericholecystic inflammatory changes. PANCREAS: Unremarkable. SPLEEN: There are small calcifications in the spleen probably related to old granulomatous disease. ADRENAL GLANDS: Unremarkable. KIDNEYS AND URETERS: The kidneys are normal in size, shape, and attenuation. No hydronephrosis, hydroureter, or calculi seen. No perinephric stranding. BLADDER: Unremarkable. GASTROINTESTINAL TRACT: There are postsurgical changes to the stomach following gastric bypass. There is stool throughout the colon suggestive of constipation. Small and large bowel is otherwise unremarkable. The appendix is unremarkable. ABDOMINAL WALL: No significant hernia is appreciated. LYMPH NODES: Normal. VASCULAR: Unremarkable. PELVIC VISCERA: The uterus appears to have been removed. No pelvic mass is seen. OSSEOUS STRUCTURES: There are degenerative changes of the spine. CT/CT abdomen pelvis wo con IMPRESSION: No renal stone or hydronephrosis is seen. Stool throughout the colon suggestive of constipation. Postsurgical changes from gastric bypass.
[2021-02-21 12:31] VITALS: BP 121/74; BP 130/76; PULSE 75; PULSE 91; TEMP 36.5; O2SAT 100; O2SAT 99; BMI 28.3
[2021-02-21 12:59] LABS: MANUAL DIFF FLAG NO
[2021-02-21 13:03] LABS: Appearance Urine CLEAR; Color Urine YELLOW; Glucose Urine UA NEG (NEG); Leukocyte Esterase Urine NEG (NEG); Nitrite Urine NEG (NEG); PH 7.5 (5.0-8.0); Urine Blood NEG (NEG); Urine Ketones NEG (NEG); Urine Protein NEG (NEG-TRACE)
[2021-02-21 13:06] LABS: Basophils Percent Auto 0.1 % (0-2); Eosinophils Absolute Auto 0.1 X10*3/uL (0.0-0.4); Hematocrit 34.6 % (37-47); Hemoglobin 11.2 g/dl (12.0-16.0); Imm Gran Abs Auto 0.06 X10*3/uL (0.00-0.03); Imm Gran Pct Auto 0.8 % (0.0-0.4); Lymphocytes Absolute Auto 2.3 X10*3/uL (1.2-4.9); Lymphocytes Percent Auto 28.5 % (20-40); Mean Corpuscular HGB Conc 32.4 g/dl (31.0-35.0); Mean Corpuscular Hemoglobin 27.4 pg (27.0-33.0); Mean Corpuscular Volume 84.6 fL (80-98); Mean Platelet Volume 10.8 fL (9.4-12.3); Monocytes Absolute Auto 0.7 X10*3/uL (0.1-1.2); Neutrophils Absolute Auto 4.8 X10*3/uL (2.0-8.3); Neutrophils Percent Auto 60.6 % (45-73); Platelet Count 260 X10*3/uL (160-400); Red Blood Count 4.09 X10*6/uL (4.20-5.50); Red Cell Distribution Width 14.7 % (11.0-16.0); White Blood Count 7.9 X10*3/uL (4.8-10.8)
--- NOTE | 2021-02-21 13:37 | ED.ABDPAIN ---
HPI - Abdominal Pain General Chief Complaint: Abdominal Pain Stated Complaint: LOW BACK PAIN THIS AM,NO INJURY Time Seen by Provider: 02/21/21 12:34 Source: patient Mode of arrival: ambulatory Limitations: no limitations History of Present Illness HPI narrative: Patient history of chronic back pain nonobstructive kidney stone comes here by ambulance for 5 days of right-sided back pain got worse today patient moaning in pain when arrived in the ER slightly nauseated no vomiting no hematuria no dysuria no fever or chills no abdominal pain no diarrhea, patient is on Percocet 10/325 for as long time for chronic back pain Related Data Home Medications Medication Instructions Recorded Confirmed albuterol sulfate 90 mcg/actuation 2 PO Q4-6H PRN 01/01/21 aerosol inhaler amlodipine 5 mg tablet 1 tab PO DAILY 01/01/21 01/01/21 aripiprazole 20 mg tablet 1 tab PO DAILY 01/01/21 01/01/21 clonazepam 1 mg tablet (Klonopin) 1 tab PO TID PRN 01/01/21 01/01/21 fluticasone propionate 110 2 PO BID 01/01/21 mcg/actuation HFA aerosol inhaler (Flovent HFA) fluticasone propionate 50 1 - 2 spray INTRANASAL DAILY PRN 01/01/21 01/01/21 mcg/actuation nasal spray,suspension gabapentin 300 mg capsule 1 cap PO BEDTIME 01/01/21 01/01/21 hydrochlorothiazide 12.5 mg tablet 1 tab PO DAILY 01/01/21 01/01/21 lisinopril 30 mg tablet 1 tab PO DAILY 01/01/21 01/01/21 metformin 500 mg tablet,extended 1 tab PO BID 01/01/21 01/01/21 release 24 hr topiramate 25 mg tablet 1 tab PO BID 01/01/21 01/01/21 trazodone 100 mg tablet 3 tab PO BEDTIME 01/01/21 01/01/21 venlafaxine 150 mg 2 cap PO QAM 01/01/21 01/01/21 capsule,extended release 24 hr Previous Rx's Medication Instructions Recorded phenazopyridine 200 mg tablet 200 mg PO TID #6 tab 05/13/20 (Pyridium) cetirizine 10 mg tablet 10 mg PO DAILY #30 tab 10/07/20 hydroxyzine HCl 25 mg tablet 25 mg PO TID PRN #10 tab 10/07/20 prednisone 20 mg tablet 40 mg PO DAILY #10 tab 10/07/20 eumtebnovx-wpppddtvarzfb-ftxumnxg 1 tab PO Q6H PRN #20 tab 10/20/20 50 mg-325 mg-40 mg tablet cyclobenzaprine 10 mg tablet 10 mg PO TID PRN #14 tab 10/20/20 ondansetron 4 mg disintegrating 4 mg PO Q8H PRN #20 tab 10/20/20 tablet prednisone 20 mg tablet 40 mg PO DAILY 5 Days #10 tab 10/20/20 diphenhydramine HCl 25 mg capsule 50 mg PO Q6-8H PRN #14 cap 10/25/20 (Benadryl) metoclopramide HCl 10 mg tablet 10 mg PO Q6H PRN #30 tab 10/25/20 (Reglan) prednisone 10 mg tablets in a dose 10 mg PO PER PKG DIR #48 ea 11/10/20 pack sennosides 8.6 mg tablet (Natural 8.6 mg PO BEDTIME #30 tab 01/22/21 Senna Laxative) Allergies Allergy/AdvReac Type Severity Reaction Status Date / Time morphine [MORPHINE] Allergy Intermediate PALPITATIONS, Verified 01/22/21 11:28 tachicardia quetiapine [Seroquel] Allergy Unknown Unknown Verified 01/22/21 11:28 orphenadrine [ORPHENADRINE] AdvReac Intermediate RAPID Verified 01/22/21 11:28 HEART RATE Review of Systems Review of Systems Yes all other systems are reviewed and are negative Physical Exam Vital Signs: Vital Signs: Last Vital Signs Temp 97.7 F 02/21/21 12:31 Pulse 75 02/21/21 12:31 Resp 18 02/21/21 13:45 BP 130/76 02/21/21 12:31 Pulse Ox 100 02/21/21 12:31 Body Mass Index 28.3 Appearance: Alert. Oriented X3. In moderate distress ENT: Pharynx normal. Oral Mucosa moist Neck: Normal inspection. Neck supple. CVS: Normal heart rate and rhythm. Pulses normal. Respiratory: No respiratory distress. Equal air entry bilateral, no wheezing/rales/rhonchi Abdomen: Soft and nontender. Bowel sounds are present, no mass palpable, diffuse tenderness right lower back no midline tenderness Skin: Skin warm and dry. Normal skin color. Normal skin turgor. Extremities: No lower extremity edema. No calf tenderness Neuro: Oriented X 3. MDM - Abdominal Pain MDM Narrative Medical decision making narrative: Patient has diffuse right-sided back pain workup is negative for kidney stone or infection patient does have history of fibromyalgia and chronic pain from feeling much better after the larger will discharge patient home Patient on Percocet 10/08496 tablets a month and has a pain contract with his PCP patient advised not to take any other pain medication when she is on contract Lab Data Attestation: I reviewed the patient's lab results. Result diagrams: 02/21/21 12:56 02/21/21 12:56 Labs: Lab Results 02/21/21 02/21/21 02/21/21 Range/Units 12:56 12:56 12:56 WBC 7.9 (4.8-10.8) X10*3/uL RBC 4.09 L (4.20-5.50) X10*6/uL Hgb 11.2 L (12.0-16.0) g/dl Hct 34.6 L (37-47) % MCV 84.6 (80-98) fL MCH 27.4 (27.0-33.0) pg MCHC 32.4 (31.0-35.0) g/dl RDW 14.7 (11.0-16.0) % Plt Count 260 (160-400) X10*3/uL MPV 10.8 (9.4-12.3) fL Immature Gran % (Auto) 0.8 H (0.0-0.4) % Neut % (Auto) 60.6 (45-73) % Lymph % (Auto) 28.5 (20-40) % [place] % (Auto) 9.0 (2-11) % Eos % (Auto) 1.0 (0-4) % Baso % (Auto) 0.1 (0-2) % Lymph # (Auto) 2.3 (1.2-4.9) X10*3/uL [place] # (Auto) 0.7 (0.1-1.2) X10*3/uL Eos # (Auto) 0.1 (0.0-0.4) X10*3/uL Baso # (Auto) 0.0 (0.0-0.2) X10*3/uL Abs Immat Gran (auto) 0.06 H (0.00-0.03) X10*3/uL Absolute Neuts (auto) 4.8 (2.0-8.3) X10*3/uL Absolute Nucleated RBC 0.000 (0.0-0.012) X10*3/uL Nucleated RBC % (auto) 0.0 (0.0-0.2) /100WBC Sodium Cancelled Potassium Cancelled Chloride Cancelled Carbon Dioxide Cancelled Anion Gap Cancelled BUN Cancelled Creatinine Cancelled Estim Creat Clear Calc Cancelled Estimated GFR Cancelled Random Glucose Cancelled Calcium Cancelled Urine Color YELLOW Urine Appearance CLEAR Urine pH 7.5 (5.0-8.0) Ur Specific [place] 1.010 (1.005-1.025) Urine Protein NEG (NEG-TRACE) MG/DL Urine Glucose (UA) NEG (NEG) MG/DL Urine Ketones NEG (NEG) MG/DL Urine Blood NEG (NEG) Urine Nitrite NEG (NEG) Ur Leukocyte Esterase NEG (NEG) Discharge Plan Discharge Clinical Impression: Back pain Qualifiers: Back pain location: low back pain Chronicity: acute Back pain laterality: right Sciatica presence: without sciatica Qualified Code(s): M54.50 - Low back pain, unspecified Patient Disposition: Home, Self-Care Instructions: Back Pain (ED) Additional Instructions: You have pain medication contract with your PCP take your Percocet as prescribed by him Prescriptions: No Action cyclobenzaprine 10 mg tablet 10 mg PO TID PRN (Reason: muscle spasm) Qty: 14 RF: 0 prednisone 20 mg tablet 40 mg PO DAILY 5 Days Qty: 10 RF: 0 ovhqtrgubh-vawznhgfrhdmi-oqat 50-325-40 mg tablet 1 tab PO Q6H PRN (Reason: pain) Qty: 20 RF: 0 ondansetron 4 mg tablet,disintegrating 4 mg PO Q8H PRN (Reason: nausea and vomiting) Qty: 20 RF: 0 metformin 500 mg tablet extended release 24 hr 1 tab PO BID RF: 0 clonazepam [Klonopin] 1 mg tablet 1 tab PO TID PRN (Reason: Anxiety) RF: 0 venlafaxine 150 mg capsule,extended release 24hr 2 cap PO QAM RF: 0 topiramate 25 mg tablet 1 tab PO BID RF: 0 amlodipine 5 mg tablet 1 tab PO DAILY RF: 0 trazodone 100 mg tablet 3 tab PO BEDTIME RF: 0 lisinopril 30 mg tablet 1 tab PO DAILY RF: 0 gabapentin 300 mg capsule 1 cap PO BEDTIME RF: 0 albuterol sulfate 90 mcg/actuation HFA aerosol inhaler 2 PO Q4-6H PRN (Reason: Wheezing) RF: 0 fluticasone propionate 50 mcg/actuation spray,suspension 1 - 2 spray intranasal DAILY PRN (Reason: Nasal Congestion) RF: 0 Flovent HFA 110 mcg/actuation HFA aerosol inhaler 2 PO BID RF: 0 aripiprazole 20 mg tablet 1 tab PO DAILY RF: 0 hydrochlorothiazide 12.5 mg tablet 1 tab PO DAILY RF: 0 phenazopyridine [Pyridium] 200 mg tablet 200 mg PO TID Qty: 6 RF: 0 prednisone 20 mg tablet 40 mg PO DAILY Qty: 10 RF: 0 hydroxyzine HCl 25 mg tablet 25 mg PO TID PRN (Reason: itching) Qty: 10 RF: 0 cetirizine 10 mg tablet 10 mg PO DAILY Qty: 30 RF: 0 metoclopramide HCl [Reglan] 10 mg tablet 10 mg PO Q6H PRN (Reason: nausea and vomiting) Qty: 30 RF: 0 diphenhydramine HCl [Benadryl] 25 mg capsule 50 mg PO Q6-8H PRN (Reason: sleep) Qty: 14 RF: 0 prednisone 10 mg tablets,dose pack 10 mg PO PER PKG DIR Qty: 48 RF: 0 sennosides [Natural Senna Laxative] 8.6 mg tablet 8.6 mg PO BEDTIME Qty: 30 RF: 3 PMFSH Past Medical History Medical History Asthma Chronic idiopathic constipation Depression Diabetes 1.5, managed as type 2 Diverticulosis Fibromyalgia Migraine Surgical History Gastric bypass status for obesity H/O colonoscopy History of pubovaginal sling Hx of bilateral breast reduction surgery Hx of oophorectomy Social History Social History Alcohol intake: current Alcohol intake frequency: holidays/special occasions only Patient Tobacco Use Status: Never used Tobacco Use of substances other than those prescribed or required for medical reasons: No Advance Directives: No Advance Directives Information Provided: Yes Patient : No Gender identity: Female
[2021-02-21 13:45] VITALS: RESP 18
[2021-02-21] MEDS: 0.9 % Sodium Chloride 1,000 ML 999 ML IVCONT (13:45)
[2021-02-21] MEDS: ondansetron HCL 4 MG/2 ML VIAL IVPUSH (13:45)
[2021-02-21] MEDS: HYDROmorphone HCl 2 MG/ML VIAL IVPUSH (13:45)
== END 2021-02-21 14:38 | disposition home or self-care (01) ==
PROVIDERS: Emergency Provider Internal Medicine
DX: M54.50 Low back pain, unspecified (principal); G89.29 Other chronic pain; Z79.891 Long term (current) use of opiate analgesic; Z87.442 Personal history of urinary calculi
CPT/HCPCS: 36415; 74176; 80048; 81003; 85025; 96361; 96374; 96375; 99284; J1170; J2405

== ENCOUNTER 2021-03-10 22:04 | Emergency (ER) | payer MEDICAID, SELFPAY ==
[2021-03-10 22:22] VITALS: BP 124/77; PULSE 68; RESP 16; TEMP 36.4; O2SAT 99; BMI 28.3
--- NOTE | 2021-03-10 23:26 | ED.FEMALEGU ---
HPI - Female Genitourinary General Chief complaint: Urogenital-Female Stated complaint: unable to urinate Time Seen by Provider: 03/10/21 23:07 Source: patient Mode of arrival: ambulatory History of Present Illness HPI Narrative: 61-year-old female presents with history of kidney stones and states that since he has seen last she has had increasing difficulty with urine passage that has not been associated with fever, chills, abdominal pain/diarrhea and denies any pain/burning in states she not had a bowel movement in several days. Patient denies saddle anesthesia, lower extremity numbness/weakness/tingling. Related Data Home Medications Medication Instructions Recorded Confirmed albuterol sulfate 90 mcg/actuation 2 PO Q4-6H PRN 01/01/21 aerosol inhaler amlodipine 5 mg tablet 1 tab PO DAILY 01/01/21 01/01/21 aripiprazole 20 mg tablet 1 tab PO DAILY 01/01/21 01/01/21 clonazepam 1 mg tablet (Klonopin) 1 tab PO TID PRN 01/01/21 01/01/21 fluticasone propionate 110 2 PO BID 01/01/21 mcg/actuation HFA aerosol inhaler (Flovent HFA) fluticasone propionate 50 1 - 2 spray INTRANASAL DAILY PRN 01/01/21 01/01/21 mcg/actuation nasal spray,suspension gabapentin 300 mg capsule 1 cap PO BEDTIME 01/01/21 01/01/21 hydrochlorothiazide 12.5 mg tablet 1 tab PO DAILY 01/01/21 01/01/21 lisinopril 30 mg tablet 1 tab PO DAILY 01/01/21 01/01/21 metformin 500 mg tablet,extended 1 tab PO BID 01/01/21 01/01/21 release 24 hr topiramate 25 mg tablet 1 tab PO BID 01/01/21 01/01/21 trazodone 100 mg tablet 3 tab PO BEDTIME 01/01/21 01/01/21 venlafaxine 150 mg 2 cap PO QAM 01/01/21 01/01/21 capsule,extended release 24 hr Previous Rx's Medication Instructions Recorded phenazopyridine 200 mg tablet 200 mg PO TID #6 tab 05/13/20 (Pyridium) cetirizine 10 mg tablet 10 mg PO DAILY #30 tab 10/07/20 hydroxyzine HCl 25 mg tablet 25 mg PO TID PRN #10 tab 10/07/20 prednisone 20 mg tablet 40 mg PO DAILY #10 tab 10/07/20 pcyslcozqf-vsshjjltbvhps-ttqzpokc 1 tab PO Q6H PRN #20 tab 10/20/20 50 mg-325 mg-40 mg tablet cyclobenzaprine 10 mg tablet 10 mg PO TID PRN #14 tab 10/20/20 ondansetron 4 mg disintegrating 4 mg PO Q8H PRN #20 tab 10/20/20 tablet prednisone 20 mg tablet 40 mg PO DAILY 5 Days #10 tab 10/20/20 diphenhydramine HCl 25 mg capsule 50 mg PO Q6-8H PRN #14 cap 10/25/20 (Benadryl) metoclopramide HCl 10 mg tablet 10 mg PO Q6H PRN #30 tab 10/25/20 (Reglan) prednisone 10 mg tablets in a dose 10 mg PO PER PKG DIR #48 ea 11/10/20 pack sennosides 8.6 mg tablet (Natural 8.6 mg PO BEDTIME #30 tab 01/22/21 Senna Laxative) nitrofurantoin 100 mg PO Q12H 5 Days #10 cap 03/11/21 monohydrate/macrocrystals 100 mg capsule (Macrobid) Allergies Allergy/AdvReac Type Severity Reaction Status Date / Time morphine [MORPHINE] Allergy Intermediate PALPITATIONS, Verified 01/22/21 11:28 tachicardia quetiapine [Seroquel] Allergy Unknown Unknown Verified 01/22/21 11:28 orphenadrine [ORPHENADRINE] AdvReac Intermediate RAPID Verified 01/22/21 11:28 HEART RATE Review of Systems Review of Systems: Pertinent positives and negatives as stated in HPI 10 point review of symptoms is negative. [facility] Past Medical History Source: nursing notes reviewed Medical History Asthma Chronic idiopathic constipation Depression Diabetes 1.5, managed as type 2 Diverticulosis Fibromyalgia Migraine Surgical History Gastric bypass status for obesity H/O colonoscopy History of pubovaginal sling Hx of bilateral breast reduction surgery Hx of oophorectomy Social History Social History Alcohol intake: current Alcohol intake frequency: holidays/special occasions only Patient Tobacco Use Status: Never used Tobacco Advance Directives: No Advance Directives Information Provided: Yes Patient : No Gender identity: Female Physical Exam Vital Signs: Vital Signs: Last Vital Signs Temp 97.5 F 03/10/21 22:22 Pulse 68 03/11/21 00:43 Resp 16 03/11/21 00:43 BP 129/73 03/11/21 00:43 Pulse Ox 99 03/11/21 00:43 Body Mass Index 28.3 VITAL SIGNS: Reviewed. GENERAL: Well developed, well nourished, in no acute distress. HEAD: Normocephalic/atraumatic EYES: PERRLA, EOMI OROPHARYNX: no oral lesions noted, posterior pharynx clear LUNGS: Normal breath sounds. No adventitious sounds or accessory muscle use. SpO2<99> CARDIOVASCULAR: Regular rate and rhythm without noted murmurs ABDOMEN: Soft, suprapubic discomfort,, non-distended with bowel sounds, no CVA tenderness SKIN: Inspection of the skin reveals no rashes NEUROLOGIC: Alert and oriented x 4. Strength and sensation to light touch were grossly intact x 4. Course Course Course Narrative: This is a 61-year-old female with history and clinical presentation suggestive of possible constipation affecting bladder elimination, however on bladder scan patient is noted to have only 50 see ease of urine which contradicts her reports of adequate oral intake in the setting of inability to urinate. Will evaluate with basic labs, urinalysis, and facilitate the process with IV fluid resuscitation. On review of all investigations since patient has a UTI and received initial antibiotics here in the emergency room and will be discharged with remaining course. MDM - Female Genitourinary Lab Data Result diagrams: 03/10/21 23:50 03/10/21 23:50 Labs: Lab Results 03/10/21 03/10/21 03/11/21 Range/Units 23:50 23:50 00:44 WBC 8.6 (4.8-10.8) X10*3/uL RBC 3.84 L (4.20-5.50) X10*6/uL Hgb 10.6 L (12.0-16.0) g/dl Hct 33.5 L (37.0-47.0) % MCV 87.2 (80.0-98.0) fL MCH 27.6 (27.0-33.0) pg MCHC 31.6 (31.0-35.0) g/dl RDW 14.9 (11.0-16.0) % Plt Count 277 (160-400) X10*3/uL MPV 10.3 (9.4-12.3) fL Immature Gran % (Auto) 1.0 H (0.0-0.4) % Neut % (Auto) 61.3 (45-73) % Lymph % (Auto) 27.2 (20-40) % Perkins % (Auto) 9.0 (2-11) % Eos % (Auto) 1.4 (0-4) % Baso % (Auto) 0.1 (0-2) % Lymph # (Auto) 2.3 (1.2-4.9) X10*3/uL Perkins # (Auto) 0.8 (0.1-1.2) X10*3/uL Eos # (Auto) 0.1 (0.0-0.4) X10*3/uL Baso # (Auto) 0.0 (0.0-0.2) X10*3/uL Abs Immat Gran (auto) 0.09 H (0.00-0.03) X10*3/uL Absolute Neuts (auto) 5.26 (2.0-8.3) x10*3/uL Absolute Nucleated RBC 0.000 (0.0-0.012) X10*3/uL Nucleated RBC % (auto) 0.0 (0.0-0.2) /100WBC Sodium 137 (135-145) mmol/L Potassium 4.7 (3.3-5.1) mmol/L Chloride 105 (96-108) mmol/L Carbon Dioxide 22 (22-29) mmol/L Anion Gap 15 (12-20) BUN 21 H (9-16) mg/dL Creatinine 0.77 (0.5-1.4) mg/dL Estim Creat Clear Calc 80.8 Estimated GFR > 60 Random Glucose 62 (60-115) mg/dL Calcium 8.4 D (8.4-10.2) mg/dL Total Bilirubin < 0.2 (0.0-1.0) mg/dL AST 20 (5-31) U/L ALT 12 (0-31) U/L Alkaline Phosphatase 56 (39-117) U/L Total Protein 6.4 L (6.5-8.0) g/dL Albumin 3.8 (3.5-5.0) g/dL Urine Color YELLOW Urine Appearance CLEAR Urine pH 6.0 (5.0-8.0) Ur Specific [place] >= 1.030 H (1.005-1.025) Urine Protein NEG (NEG-TRACE) MG/DL Urine Glucose (UA) NEG (NEG) MG/DL Urine Ketones 5 (NEG) MG/DL Urine Blood NEG (NEG) Urine Nitrite NEG (NEG) Ur Leukocyte Esterase 1+ H (NEG) Urine RBC 1-4 (0) /HPF Urine WBC 10-14 H (0-4) /HPF Ur Squamous Epith Cells 1+ /LPF Urine Bacteria 2+ /LPF Discharge Plan Discharge Clinical Impression: Dysuria, UTI (urinary tract infection) Patient Disposition: Home, Self-Care Instructions: Urinary Tract Infection in Women (ED) Additional Instructions: 1. Complete entire course of antibiotics. 2. Follow-up with your primary care provider on Friday morning for re-evaluation further outpatient management. Return to the ER for acute worsening of symptoms. Prescriptions: New nitrofurantoin monohyd/m-cryst [Macrobid] 100 mg capsule 100 mg PO Q12H 5 Days Qty: 10 RF: 0 No Action cyclobenzaprine 10 mg tablet 10 mg PO TID PRN (Reason: muscle spasm) Qty: 14 RF: 0 prednisone 20 mg tablet 40 mg PO DAILY 5 Days Qty: 10 RF: 0 ogzfhofcdm-uvayuuzvtargp-zdge 50-325-40 mg tablet 1 tab PO Q6H PRN (Reason: pain) Qty: 20 RF: 0 ondansetron 4 mg tablet,disintegrating 4 mg PO Q8H PRN (Reason: nausea and vomiting) Qty: 20 RF: 0 metformin 500 mg tablet extended release 24 hr 1 tab PO BID RF: 0 clonazepam [Klonopin] 1 mg tablet 1 tab PO TID PRN (Reason: Anxiety) RF: 0 venlafaxine 150 mg capsule,extended release 24hr 2 cap PO QAM RF: 0 topiramate 25 mg tablet 1 tab PO BID RF: 0 amlodipine 5 mg tablet 1 tab PO DAILY RF: 0 trazodone 100 mg tablet 3 tab PO BEDTIME RF: 0 lisinopril 30 mg tablet 1 tab PO DAILY RF: 0 gabapentin 300 mg capsule 1 cap PO BEDTIME RF: 0 albuterol sulfate 90 mcg/actuation HFA aerosol inhaler 2 PO Q4-6H PRN (Reason: Wheezing) RF: 0 fluticasone propionate 50 mcg/actuation spray,suspension 1 - 2 spray intranasal DAILY PRN (Reason: Nasal Congestion) RF: 0 Flovent HFA 110 mcg/actuation HFA aerosol inhaler 2 PO BID RF: 0 aripiprazole 20 mg tablet 1 tab PO DAILY RF: 0 hydrochlorothiazide 12.5 mg tablet 1 tab PO DAILY RF: 0 phenazopyridine [Pyridium] 200 mg tablet 200 mg PO TID Qty: 6 RF: 0 prednisone 20 mg tablet 40 mg PO DAILY Qty: 10 RF: 0 hydroxyzine HCl 25 mg tablet 25 mg PO TID PRN (Reason: itching) Qty: 10 RF: 0 cetirizine 10 mg tablet 10 mg PO DAILY Qty: 30 RF: 0 metoclopramide HCl [Reglan] 10 mg tablet 10 mg PO Q6H PRN (Reason: nausea and vomiting) Qty: 30 RF: 0 diphenhydramine HCl [Benadryl] 25 mg capsule 50 mg PO Q6-8H PRN (Reason: sleep) Qty: 14 RF: 0 prednisone 10 mg tablets,dose pack 10 mg PO PER PKG DIR Qty: 48 RF: 0 sennosides [Natural Senna Laxative] 8.6 mg tablet 8.6 mg PO BEDTIME Qty: 30 RF: 3 Referrals: [facility] [Primary Care Provider] - 2 days
[2021-03-10] MEDS: 0.9 % Sodium Chloride 1,000 ML 999 ML IV (23:53)
[2021-03-11 00:02] LABS: MANUAL DIFF FLAG NO
[2021-03-11 00:03] LABS: Basophils Percent Auto 0.1 % (0-2); Eosinophils Absolute Auto 0.1 X10*3/uL (0.0-0.4); Eosinophils Percent Auto 1.4 % (0-4); Hematocrit 33.5 % (37.0-47.0); Hemoglobin 10.6 g/dl (12.0-16.0); Imm Gran Abs Auto 0.09 X10*3/uL (0.00-0.03); Lymphocytes Absolute Auto 2.3 X10*3/uL (1.2-4.9); Lymphocytes Percent Auto 27.2 % (20-40); Mean Corpuscular HGB Conc 31.6 g/dl (31.0-35.0); Mean Corpuscular Hemoglobin 27.6 pg (27.0-33.0); Mean Corpuscular Volume 87.2 fL (80.0-98.0); Mean Platelet Volume 10.3 fL (9.4-12.3); Monocytes Absolute Auto 0.8 X10*3/uL (0.1-1.2); Neutrophils Absolute Auto 5.26 x10*3/uL (2.0-8.3); Neutrophils Percent Auto 61.3 % (45-73); Platelet Count 277 X10*3/uL (160-400); Red Blood Count 3.84 X10*6/uL (4.20-5.50); Red Cell Distribution Width 14.9 % (11.0-16.0); White Blood Count 8.6 X10*3/uL (4.8-10.8)
--- NOTE | 2021-03-11 00:06 | PC.NURSE ---
Iv placed, labs drawn and sent. medicated per Jul.
[2021-03-11 00:24] LABS: Potassium 4.7 mmol/L (3.3-5.1)
[2021-03-11 00:25] LABS: Alanine Aminotransferase 12 U/L (0-31); Albumin Level 3.8 g/dL (3.5-5.0); Alkaline Phosphatase 56 U/L (39-117); Anion Gap 15 (12-20); Aspartate Amino Transferase 20 U/L (5-31); Bilirubin Total < 0.2 mg/dL (0.0-1.0); Blood Urea Nitrogen 21 mg/dL (9-16); Calcium 8.4 mg/dL (8.4-10.2); Carbon Dioxide 22 mmol/L (22-29); Chloride 105 mmol/L (96-108); Creatinine Clr Calc Pharmacy 80.8; Estimated Glomerular Filt Rate > 60; Glucose Random 62 mg/dL (60-115); Sodium 137 mmol/L (135-145); Total Protein 6.4 g/dL (6.5-8.0)
[2021-03-11 00:43] VITALS: BP 129/73; PULSE 68; RESP 16; O2SAT 99
[2021-03-11 00:52] LABS: Appearance Urine CLEAR; Color Urine YELLOW; Glucose Urine UA NEG (NEG); Leukocyte Esterase Urine 1+ (NEG); Nitrite Urine NEG (NEG); Specific Gravity - Urine >= 1.030 (1.005-1.025); UACC Culture Trigger YES; Urine Blood NEG (NEG); Urine Ketones 5 MG/DL (NEG); Urine Protein NEG (NEG-TRACE)
[2021-03-11 00:58] LABS: Bacteria Urine 2+ /LPF; Squamous Epithelial Cell Urine 1+ /LPF
[2021-03-11] MEDS: cefTRIAXone sodium 1 GM in 0.9 % Sodium Chloride 50 ML IV (02:07)
--- NOTE | 2021-03-11 03:14 | PC.NURSE ---
pt was a&O, denies any sob or chest pain. ua collected and sent. pt medicated per jul. reviewed discharge instruction and medication at discharge. Iv removed.
== END 2021-03-11 03:16 | disposition home or self-care (01) ==
PROVIDERS: Emergency Provider Student in an Organized Health Care Education/Training Program
DX: R30.0 Dysuria (principal); N39.0 Urinary tract infection, site not specified; Z79.899 Other long term (current) drug therapy
CPT/HCPCS: 36415; 51798; 80053; 81001; 85025; 87086; 96361; 96365; 99285; J0696

== ENCOUNTER 2021-03-21 10:24 | Emergency (ER) | payer MEDICAID, SELFPAY ==
--- NOTE | ~2021-03-21 | CT_ITS ---
EXAMINATION: CT HEAD WITHOUT CONTRAST CLINICAL INFORMATION: Right ear pain. Evaluate for mastoiditis. COMPARISON: 10/15/2020 and 01/30/2021 TECHNIQUE: Contiguous axial imaging was performed from the skull base to vertex without intravenous administration of contrast. This CT examination was performed using dose optimization techniques as appropriate, variously including the following: *Automated exposure control *Adjustment of mA and/or kV according to patient size (this includes techniques or standardized protocols for targeted exams where dose is matched to indication/reason for exam; i.e. extremities or head) *Use of iterative reconstruction technique DLP: 653 mGy-cm FINDINGS: The brain parenchyma has normal attenuation. The hitchcock-white matter differentiation is well preserved. No evidence of an acute major vascular territory infarction. No intracranial hemorrhage, extra-axial fluid collection, focal mass effect or midline shift. The ventricles have normal size and configuration; no hydrocephalus. The brainstem and cerebellum have a normal appearance. The cerebellar tonsils are in normal position. The calvarium is intact. There is hyperostosis frontalis interna. A small mucus retention cyst or polyp of the left maxillary sinus is unchanged compared to 10/15/2020 and 01/30/2021. Small amount of mucus is present in the right frontal sinus. Otherwise, the visualized paranasal sinuses, mastoid air cells and middle ear cavities are well aerated. There is no mastoid erosion or overlying soft tissue swelling. The internal and external auditory canals are unremarkable. The orbits and globes are normal. The temporomandibular joints are normal. CT/CT head/brain wo con IMPRESSION: * No acute intracranial pathology compared to 01/30/2021. * The mastoid air cells are normal. No mastoid effusion or erosion. No evidence of mastoiditis.
[2021-03-21 10:46] VITALS: BP 114/62; PULSE 72; RESP 20; TEMP 36.2; O2SAT 99; BMI 27.4
--- NOTE | 2021-03-21 11:18 | ED.EAR ---
HPI - Ear Problem General Chief complaint: Ear Problems Stated complaint: ear pain Time Seen by Provider: 03/21/21 11:10 Source: patient and family (Spouse) Mode of arrival: ambulatory Limitations: no limitations History of Present Illness HPI Narrative: 61-year-old female came in for evaluation of right ear pain and sore throat. 61-year-old female with history of fibromyalgia and migraine came in for acute on chronic right ear pain, patient was seen and evaluated by a neurologist had a recent MRI of the brain which showed no intracranial aneurysm he common today for evaluation of acute on chronic right ear pain, pain is dull aching, intermittent, severe 02/18, causing patient to feel dizzy, associated with sore throat, patient declined any fever or chills, no sick contact. Patient declined any photophobia, no fever, no neck stiffness. Related Data Home Medications Medication Instructions Recorded Confirmed albuterol sulfate 90 mcg/actuation 2 PO Q4-6H PRN 01/01/21 aerosol inhaler amlodipine 5 mg tablet 1 tab PO DAILY 01/01/21 01/01/21 aripiprazole 20 mg tablet 1 tab PO DAILY 01/01/21 01/01/21 clonazepam 1 mg tablet (Klonopin) 1 tab PO TID PRN 01/01/21 01/01/21 fluticasone propionate 110 2 PO BID 01/01/21 mcg/actuation HFA aerosol inhaler (Flovent HFA) fluticasone propionate 50 1 - 2 spray INTRANASAL DAILY PRN 01/01/21 01/01/21 mcg/actuation nasal spray,suspension gabapentin 300 mg capsule 1 cap PO BEDTIME 01/01/21 01/01/21 hydrochlorothiazide 12.5 mg tablet 1 tab PO DAILY 01/01/21 01/01/21 lisinopril 30 mg tablet 1 tab PO DAILY 01/01/21 01/01/21 metformin 500 mg tablet,extended 1 tab PO BID 01/01/21 01/01/21 release 24 hr topiramate 25 mg tablet 1 tab PO BID 01/01/21 01/01/21 trazodone 100 mg tablet 3 tab PO BEDTIME 01/01/21 01/01/21 venlafaxine 150 mg 2 cap PO QAM 01/01/21 01/01/21 capsule,extended release 24 hr Previous Rx's Medication Instructions Recorded phenazopyridine 200 mg tablet 200 mg PO TID #6 tab 05/13/20 (Pyridium) cetirizine 10 mg tablet 10 mg PO DAILY #30 tab 10/07/20 hydroxyzine HCl 25 mg tablet 25 mg PO TID PRN #10 tab 10/07/20 prednisone 20 mg tablet 40 mg PO DAILY #10 tab 10/07/20 dfznjxnyqr-ikugfainmiyxd-ohrrroor 1 tab PO Q6H PRN #20 tab 10/20/20 50 mg-325 mg-40 mg tablet cyclobenzaprine 10 mg tablet 10 mg PO TID PRN #14 tab 10/20/20 ondansetron 4 mg disintegrating 4 mg PO Q8H PRN #20 tab 10/20/20 tablet prednisone 20 mg tablet 40 mg PO DAILY 5 Days #10 tab 10/20/20 diphenhydramine HCl 25 mg capsule 50 mg PO Q6-8H PRN #14 cap 10/25/20 (Benadryl) metoclopramide HCl 10 mg tablet 10 mg PO Q6H PRN #30 tab 10/25/20 (Reglan) prednisone 10 mg tablets in a dose 10 mg PO PER PKG DIR #48 ea 11/10/20 pack sennosides 8.6 mg tablet (Natural 8.6 mg PO BEDTIME #30 tab 01/22/21 Senna Laxative) nitrofurantoin 100 mg PO Q12H 5 Days #10 cap 03/11/21 monohydrate/macrocrystals 100 mg capsule (Macrobid) Allergies Allergy/AdvReac Type Severity Reaction Status Date / Time morphine [MORPHINE] Allergy Intermediate PALPITATIONS, Verified 01/22/21 11:28 tachicardia quetiapine [Seroquel] Allergy Unknown Unknown Verified 01/22/21 11:28 orphenadrine [ORPHENADRINE] AdvReac Intermediate RAPID Verified 01/22/21 11:28 HEART RATE Review of Systems Review of Systems: All other systems are reviewed and are negative Constitutional: Reports as per HPI and Reports no additional constitutional complaints Eyes: Reports as per HPI and Reports no additional eye complaints Reports system reviewed and no additional complaints, except as documented Cardiovascular: Reports as per HPI and Reports no additional cardiovascular complaints Respiratory: Reports as per HPI and Reports no additional respiratory complaints Gastrointestinal: Reports as per HPI and Reports no additional gastrointestinal complaints Genitourinary: Reports no additional female genitourinary complaints Musculoskeletal: Reports no additional musculoskeletal complaints Skin/Breast: Reports system reviewed and no additional complaints, except as docu Psychiatric: Reports no additional psychiatric complaints Endocrine: Reports no additional endocrine complaints Hematologic/Lymphatic: Reports no additional hematologic/lymphatic complaints Allergic/Immunologic: Reports no additional allergic/immunologic complaints Reports system reviewed and no additional complaints, except as documented and Reports Abnormal speech present [facility] Past Medical History Medical History Asthma Chronic idiopathic constipation Depression Diabetes 1.5, managed as type 2 Diverticulosis Fibromyalgia Migraine Surgical History Gastric bypass status for obesity H/O colonoscopy History of pubovaginal sling Hx of bilateral breast reduction surgery Hx of oophorectomy Social History Social History Alcohol intake: current Alcohol intake frequency: does not drink Patient Tobacco Use Status: Never used Tobacco Advance Directives: No Gender identity: Female Physical Exam Vital Signs: Vital Signs: Last Vital Signs Temp 97.9 F 03/21/21 12:58 Pulse 65 03/21/21 12:58 Resp 18 03/21/21 12:58 BP 152/79 H 03/21/21 12:58 Pulse Ox 100 03/21/21 12:58 Body Mass Index 27.4 Vital signs have been reviewed as appeared to be correct. Blood pressure normal. Heart rate normal. Respiration rate normal. Temperature normal. Oxygen saturation normal. Appearance: Alert. Oriented X3. Mild acute distress due to right ear pain. Head: Normal external exam. Normocephalic. Atraumatic. No Ortega signs noted. No raccoon eyes noted Eyes: PERRLA. EOMI. Conjunctiva and sclera normal. Eyelids normal. ENT: TM's Normal. Pharynx normal. Uvula midline. Moist mucous membranes. No trismus noted. No drooling noted. No muffled voice noted. Neck: Normal inspection. Neck supple. FROM. No adenopathy. Thyroid Normal. No meningeal signs. No neck mass noted. CVS: Normal heart rate and rhythm. Heart sound normal. No murmurs noted. Pulses normal throughout. Respiratory: No respiratory distress. Painless inspiration. Breath sounds normal. No wheezes/rales/rhonchi noted. Chest nontender. No accessory muscle usage noted or decreased air movement noted. Abdomen: Soft and nontender. Bowel sounds normal in all 4 quadrants. No distention noted. No organomegaly noted. No visible injury noted. Back: No CVA tenderness. Full range of motion noted. Skin: Skin warm and dry. Normal skin color. Normal skin turgor. No rashes/lesions/lacerations noted. Extremities: No lower extremity edema. Extremities exhibit normal range of motion. Extremities nontender. Neuro: Oriented X 3. Cranial nerve exam: II-XII are grossly intact No motor deficit. No sensory deficit. Reflexes normal. Course Course Course Narrative: Assessment and plan. 61 years old female came in for evaluation of her right ear pain, patient been having acute on chronic right ear pain, exam no obvious infection, no trauma, pain under better control with Toradol/Dilaudid. Patient was instructed to follow up with her neurologist and see her PCP for ENT referral. MDM - Ear Medical Records Attestation: I reviewed the patient's medical records. Lab Data Attestation: I reviewed the patient's lab results. Labs: Lab Results 03/21/21 Range/Units 11:48 Influenza Type A (PCR) NEGATIVE (Negative) Influenza Type B (PCR) NEGATIVE (Negative) RSV RNA Qual (PCR) NEGATIVE (Negative) SARS-CoV-2 RNA (RT-PCR) NEGATIVE (Negative) Imaging Data head ct: Radiologist's impression: *? No acute intracranial pathology compared to 01/30/2021. *? The mastoid air cells are normal. No mastoid effusion or erosion. No evidence of mastoiditis. Discharge Plan Discharge Clinical Impression: Acute ear pain Patient Disposition: Home, Self-Care Instructions: Earache (ED) Additional Instructions: Ask your doctor to get an ENT doctor referral. Prescriptions: No Action cyclobenzaprine 10 mg tablet 10 mg PO TID PRN (Reason: muscle spasm) Qty: 14 RF: 0 prednisone 20 mg tablet 40 mg PO DAILY 5 Days Qty: 10 RF: 0 iwecvizqxd-ofpsiynimghjk-akff 50-325-40 mg tablet 1 tab PO Q6H PRN (Reason: pain) Qty: 20 RF: 0 ondansetron 4 mg tablet,disintegrating 4 mg PO Q8H PRN (Reason: nausea and vomiting) Qty: 20 RF: 0 metformin 500 mg tablet extended release 24 hr 1 tab PO BID RF: 0 clonazepam [Klonopin] 1 mg tablet 1 tab PO TID PRN (Reason: Anxiety) RF: 0 venlafaxine 150 mg capsule,extended release 24hr 2 cap PO QAM RF: 0 topiramate 25 mg tablet 1 tab PO BID RF: 0 amlodipine 5 mg tablet 1 tab PO DAILY RF: 0 trazodone 100 mg tablet 3 tab PO BEDTIME RF: 0 lisinopril 30 mg tablet 1 tab PO DAILY RF: 0 gabapentin 300 mg capsule 1 cap PO BEDTIME RF: 0 albuterol sulfate 90 mcg/actuation HFA aerosol inhaler 2 PO Q4-6H PRN (Reason: Wheezing) RF: 0 fluticasone propionate 50 mcg/actuation spray,suspension 1 - 2 spray intranasal DAILY PRN (Reason: Nasal Congestion) RF: 0 Flovent HFA 110 mcg/actuation HFA aerosol inhaler 2 PO BID RF: 0 aripiprazole 20 mg tablet 1 tab PO DAILY RF: 0 hydrochlorothiazide 12.5 mg tablet 1 tab PO DAILY RF: 0 phenazopyridine [Pyridium] 200 mg tablet 200 mg PO TID Qty: 6 RF: 0 prednisone 20 mg tablet 40 mg PO DAILY Qty: 10 RF: 0 hydroxyzine HCl 25 mg tablet 25 mg PO TID PRN (Reason: itching) Qty: 10 RF: 0 cetirizine 10 mg tablet 10 mg PO DAILY Qty: 30 RF: 0 metoclopramide HCl [Reglan] 10 mg tablet 10 mg PO Q6H PRN (Reason: nausea and vomiting) Qty: 30 RF: 0 diphenhydramine HCl [Benadryl] 25 mg capsule 50 mg PO Q6-8H PRN (Reason: sleep) Qty: 14 RF: 0 prednisone 10 mg tablets,dose pack 10 mg PO PER PKG DIR Qty: 48 RF: 0 nitrofurantoin monohyd/m-cryst [Macrobid] 100 mg capsule 100 mg PO Q12H 5 Days Qty: 10 RF: 0 sennosides [Natural Senna Laxative] 8.6 mg tablet 8.6 mg PO BEDTIME Qty: 30 RF: 3 Referrals: Elizabeth Dunn MD [Primary Care Provider] - 2 days
[2021-03-21 11:30] VITALS: RESP 16
[2021-03-21] MEDS: HYDROmorphone HCl 1 MG/ML SYRINGE IM (11:30)
[2021-03-21] MEDS: Meclizine HCl 25 MG TABLET PO (11:36)
[2021-03-21] MEDS: Ketorolac Tromethamine 60 MG/2 ML VIAL IM (11:36)
[2021-03-21 12:41] LABS: Influenza A PCR NEGATIVE (Negative); Influenza B PCR NEGATIVE (Negative); Resp Syncy Virus RNA Qual PCR NEGATIVE (Negative); SARS COV2 PCR INHOUSE NEGATIVE (Negative)
[2021-03-21 12:58] VITALS: BP 152/79; PULSE 65; RESP 18; TEMP 36.6; O2SAT 100
== END 2021-03-21 13:32 | disposition home or self-care (01) ==
PROVIDERS: Emergency Provider Emergency Medicine; PCP Internal Medicine
DX: H92.01 Otalgia, right ear (principal); E13.9 Other specified diabetes mellitus without complications; Z20.822 Contact with and (suspected) exposure to COVID-19
CPT/HCPCS: 0241U; 36415; 70450; 96372; 99284; J1170; J1885

== ENCOUNTER 2021-04-14 21:43 | Emergency (ER) | payer MEDICAID, SELFPAY ==
--- NOTE | ~2021-04-14 | XR_ITS ---
EXAMINATION: XR CHEST CLINICAL INFORMATION: COVID COMPARISON: 10/13/2020 TECHNIQUE: Frontal view of the chest was obtained. FINDINGS: Normal symmetric lung volumes. No parenchymal consolidation. No pleural effusion. No pneumothorax. Cardiomediastinal silhouette and pulmonary vascularity are within normal limits. Aorta is atherosclerotic. No acute osseous abnormalities. XR/XR chest 1V IMPRESSION: No acute pulmonary parenchymal abnormalities.
[2021-04-14 21:57] VITALS: BP 126/77; PULSE 66; RESP 16; TEMP 36.8; O2SAT 100; BMI 26.2
[2021-04-14 22:18] LABS: COVID-19 Test Positive (Negative)
--- NOTE | 2021-04-15 00:04 | ED.GENADULT ---
HPI - General Adult General Chief complaint: Abdominal Pain Stated complaint: home Time Seen by Provider: 04/15/21 00:04 Source: patient Mode of arrival: ambulatory Limitations: no limitations History of Present Illness HPI narrative: Patient already been vaccinated with 2 shots of COVID complaining of congestion headache body ache for last 1 week multiple complaining coughing not feel sick saturating 100% on room air Related Data Home Medications Medication Instructions Recorded Confirmed albuterol sulfate 90 mcg/actuation 2 PO Q4-6H PRN 01/01/21 aerosol inhaler amlodipine 5 mg tablet 1 tab PO DAILY 01/01/21 01/01/21 aripiprazole 20 mg tablet 1 tab PO DAILY 01/01/21 01/01/21 clonazepam 1 mg tablet (Klonopin) 1 tab PO TID PRN 01/01/21 01/01/21 fluticasone propionate 110 2 PO BID 01/01/21 mcg/actuation HFA aerosol inhaler (Flovent HFA) fluticasone propionate 50 1 - 2 spray INTRANASAL DAILY PRN 01/01/21 01/01/21 mcg/actuation nasal spray,suspension gabapentin 300 mg capsule 1 cap PO BEDTIME 01/01/21 01/01/21 hydrochlorothiazide 12.5 mg tablet 1 tab PO DAILY 01/01/21 01/01/21 lisinopril 30 mg tablet 1 tab PO DAILY 01/01/21 01/01/21 metformin 500 mg tablet,extended 1 tab PO BID 01/01/21 01/01/21 release 24 hr topiramate 25 mg tablet 1 tab PO BID 01/01/21 01/01/21 trazodone 100 mg tablet 3 tab PO BEDTIME 01/01/21 01/01/21 venlafaxine 150 mg 2 cap PO QAM 01/01/21 01/01/21 capsule,extended release 24 hr Previous Rx's Medication Instructions Recorded phenazopyridine 200 mg tablet 200 mg PO TID #6 tab 05/13/20 (Pyridium) cetirizine 10 mg tablet 10 mg PO DAILY #30 tab 10/07/20 hydroxyzine HCl 25 mg tablet 25 mg PO TID PRN #10 tab 10/07/20 prednisone 20 mg tablet 40 mg PO DAILY #10 tab 10/07/20 tuygnfzgaw-cnmerfynhzuue-jfukllkj 1 tab PO Q6H PRN #20 tab 10/20/20 50 mg-325 mg-40 mg tablet cyclobenzaprine 10 mg tablet 10 mg PO TID PRN #14 tab 10/20/20 ondansetron 4 mg disintegrating 4 mg PO Q8H PRN #20 tab 10/20/20 tablet prednisone 20 mg tablet 40 mg PO DAILY 5 Days #10 tab 10/20/20 diphenhydramine HCl 25 mg capsule 50 mg PO Q6-8H PRN #14 cap 10/25/20 (Benadryl) metoclopramide HCl 10 mg tablet 10 mg PO Q6H PRN #30 tab 10/25/20 (Reglan) prednisone 10 mg tablets in a dose 10 mg PO PER PKG DIR #48 ea 11/10/20 pack sennosides 8.6 mg tablet (Natural 8.6 mg PO BEDTIME #30 tab 01/22/21 Senna Laxative) nitrofurantoin 100 mg PO Q12H 5 Days #10 cap 03/11/21 monohydrate/macrocrystals 100 mg capsule (Macrobid) codeine 10 mg-guaifenesin 100 mg/5 10 ml PO Q4-6H PRN #237 ml 04/15/21 mL oral liquid dexamethasone 6 mg tablet 6 mg PO DAILY #7 tab 04/15/21 (Decadron) Allergies Allergy/AdvReac Type Severity Reaction Status Date / Time morphine [MORPHINE] Allergy Intermediate PALPITATIONS, Verified 01/22/21 11:28 tachicardia quetiapine [Seroquel] Allergy Unknown Unknown Verified 01/22/21 11:28 orphenadrine [ORPHENADRINE] AdvReac Intermediate RAPID Verified 01/22/21 11:28 HEART RATE Review of Systems Review of Systems: Yes all other systems are reviewed and are negative [facility] Past Medical History Medical History Asthma Chronic idiopathic constipation Depression Diabetes 1.5, managed as type 2 Diverticulosis Fibromyalgia Migraine Surgical History Gastric bypass status for obesity H/O colonoscopy History of pubovaginal sling Hx of bilateral breast reduction surgery Hx of oophorectomy Social History Social History Alcohol intake: current Alcohol intake frequency: does not drink Patient Tobacco Use Status: Never used Tobacco Advance Directives: No Advance Directives Information Provided: Yes Patient : No Gender identity: Female Physical Exam Vital Signs: Vital Signs: Last Vital Signs Temp 98.8 F 04/15/21 01:08 Pulse 96 04/15/21 01:08 Resp 18 04/15/21 01:08 BP 134/78 04/15/21 01:08 Pulse Ox 98 04/15/21 01:08 BMI result Body Mass Index 26.2 Appearance: Alert. Oriented X3. No acute distress. Occasional cough Eyes: No pallor icterus ENT: Pharynx normal. Oral Mucosa moist Neck: Normal inspection. Neck supple. CVS: Normal heart rate and rhythm. Pulses normal. Respiratory: No respiratory distress. Equal air entry bilateral, no wheezing/rales/rhonchi Abdomen: Soft and nontender. Bowel sounds are present, no mass palpable, no CVA tenderness Skin: Skin warm and dry. Normal skin color. Normal skin turgor. Extremities: No lower extremity edema. No calf tenderness Neuro: Oriented X 3. Medical Decision Making MDM Narrative Medical decision making narrative: Patient post vaccinated against COVID COVID test came positive chest x-ray negative for infiltrate will give patient Decadron cough syrup advised to follow with PCP saturating 100% at room air Lab Data Lab results reviewed: Yes I reviewed the patient's lab results. Labs: Lab Results 04/14/21 Range/Units 22:01 COVID-19 (IGOR) Positive A (Negative) COVID-19 Clin Com See Note Discharge Plan Discharge Clinical Impression: COVID-19 Patient Disposition: Home, Self-Care Instructions: COVID-19 (Coronavirus Disease 2019) (ED) Additional Instructions: Keep social distancing and isolation as advised Medication is prescribed Tylenol/Motrin for fever body aches Report to ER/PCP if increased shortness of breath Prescriptions: New dexamethasone [Decadron] 6 mg tablet 6 mg PO DAILY Qty: 7 RF: 0 codeine-guaifenesin 10-100 mg/5 mL liquid 10 ml PO Q4-6H PRN (Reason: cough) Qty: 237 RF: 0 No Action cyclobenzaprine 10 mg tablet 10 mg PO TID PRN (Reason: muscle spasm) Qty: 14 RF: 0 prednisone 20 mg tablet 40 mg PO DAILY 5 Days Qty: 10 RF: 0 ougudckeds-yeffbmjvnxhjk-ubaa 50-325-40 mg tablet 1 tab PO Q6H PRN (Reason: pain) Qty: 20 RF: 0 ondansetron 4 mg tablet,disintegrating 4 mg PO Q8H PRN (Reason: nausea and vomiting) Qty: 20 RF: 0 metformin 500 mg tablet extended release 24 hr 1 tab PO BID RF: 0 clonazepam [Klonopin] 1 mg tablet 1 tab PO TID PRN (Reason: Anxiety) RF: 0 venlafaxine 150 mg capsule,extended release 24hr 2 cap PO QAM RF: 0 topiramate 25 mg tablet 1 tab PO BID RF: 0 amlodipine 5 mg tablet 1 tab PO DAILY RF: 0 trazodone 100 mg tablet 3 tab PO BEDTIME RF: 0 lisinopril 30 mg tablet 1 tab PO DAILY RF: 0 gabapentin 300 mg capsule 1 cap PO BEDTIME RF: 0 albuterol sulfate 90 mcg/actuation HFA aerosol inhaler 2 PO Q4-6H PRN (Reason: Wheezing) RF: 0 fluticasone propionate 50 mcg/actuation spray,suspension 1 - 2 spray intranasal DAILY PRN (Reason: Nasal Congestion) RF: 0 Flovent HFA 110 mcg/actuation HFA aerosol inhaler 2 PO BID RF: 0 aripiprazole 20 mg tablet 1 tab PO DAILY RF: 0 hydrochlorothiazide 12.5 mg tablet 1 tab PO DAILY RF: 0 phenazopyridine [Pyridium] 200 mg tablet 200 mg PO TID Qty: 6 RF: 0 prednisone 20 mg tablet 40 mg PO DAILY Qty: 10 RF: 0 hydroxyzine HCl 25 mg tablet 25 mg PO TID PRN (Reason: itching) Qty: 10 RF: 0 cetirizine 10 mg tablet 10 mg PO DAILY Qty: 30 RF: 0 metoclopramide HCl [Reglan] 10 mg tablet 10 mg PO Q6H PRN (Reason: nausea and vomiting) Qty: 30 RF: 0 diphenhydramine HCl [Benadryl] 25 mg capsule 50 mg PO Q6-8H PRN (Reason: sleep) Qty: 14 RF: 0 prednisone 10 mg tablets,dose pack 10 mg PO PER PKG DIR Qty: 48 RF: 0 nitrofurantoin monohyd/m-cryst [Macrobid] 100 mg capsule 100 mg PO Q12H 5 Days Qty: 10 RF: 0 sennosides [Natural Senna Laxative] 8.6 mg tablet 8.6 mg PO BEDTIME Qty: 30 RF: 3 Interventions: ED Discharge Assessment Last Done: 04/15/21 01:06 Discharge Date/Time: 04/15/21 01:36
[2021-04-15] MEDS: dexAMETHasone 2 MG TABLET 10 MG PO (00:25)
[2021-04-15] MEDS: guaiFEN/Codeine SF 200/20/10ML 10 ML LIQUID PO (01:05)
[2021-04-15 01:08] VITALS: BP 134/78; PULSE 96; RESP 18; TEMP 37.1; O2SAT 98
== END 2021-04-15 01:36 | disposition home or self-care (01) ==
PROVIDERS: Emergency Provider Internal Medicine
DX: U07.1 COVID-19 (principal); R51.9 Headache, unspecified; E13.9 Other specified diabetes mellitus without complications
CPT/HCPCS: 36415; 71045; 87635; 99283; J8540

== ENCOUNTER 2021-04-20 19:40 | Emergency (ER) | payer MEDICAID, SELFPAY ==
[2021-04-20 20:05] VITALS: BP 114/68; BP 122/80; PULSE 71; PULSE 82; RESP 20; TEMP 36.6; O2SAT 98; BMI 26.1
--- NOTE | 2021-04-20 22:00 | PC.NURSE ---
I assumed care of this patient upon her arrival via EMS. per EMS the pt was awake, alert, ambulatory independently and safely and was able to ambulate down many steps at her residence. On my initial assessment the pt was reluctant to open her eyes to talk to me, reluctant to participate in an initial interview and assessment in order to gauge why she is in the E.D. stating that she was too weak. However, shortly after I witnessed the pt standing up and walking to a bathroom seemingly without any difficulty or weakness. Her gait was steady. Respirations non-labored, RR 16, no cyanosis, speaking in full sentences, room air sat 98%, no distress. I did not witness, but the pt was witnessed by other staff leaving the E.D.
== END 2021-04-20 21:52 | disposition left against medical advice (07) ==
PROVIDERS: Emergency Provider Emergency Medicine Emergency Medical Services
DX: U07.1 COVID-19 (principal); R06.02 Shortness of breath
CPT/HCPCS: 99282

== ENCOUNTER 2021-05-09 11:55 | Outpatient (REF) | payer MEDICAID, SELFPAY ==
--- NOTE | ~2021-05-09 | MM_ITS ---
EXAMINATION: MM SCREENING DIGITAL BREAST TOMOSYNTHESIS, BILATERAL CLINICAL INFORMATION: Screening. Asymptomatic. The lifetime risk of breast cancer based on the Tyrer-Cuzick Model is 4%. COMPARISON: Mammography: 03/21/2020, 02/11/2019, 01/20/2018 TECHNIQUE: Digital breast tomosynthesis is performed in both the craniocaudal and mediolateral oblique views along with computer-aided detection (CAD). Synthesized 2D images are generated from the tomosynthesis. FINDINGS: The breasts are almost entirely fatty (ACR BI-RADS breast composition Category a). There are no significant masses, abnormal calcifications, or other abnormalities. Background stromal markings are stable. The axilla and skin contours are unremarkable. MM/MM tomosynthesis screening BI IMPRESSION: No mammographic evidence of malignancy. ASSESSMENT: BI-RADS 1: Negative RECOMMENDATION: Routine annual mammography screening. This patient's information was entered into a reminder system with a target due date for their next mammogram.
== END 2021-05-09 11:56 | disposition home or self-care (01) ==
LOC: HO.MAMMO 11:55
PROVIDERS: Visit Provider Internal Medicine
DX: Z12.31 Encounter for screening mammogram for malignant neoplasm of breast (principal)
CPT/HCPCS: 77063; 77067

== ENCOUNTER 2021-05-14 13:51 | Emergency (ER) | payer MEDICAID, SELFPAY ==
--- NOTE | ~2021-05-14 | XR_ITS ---
EXAMINATION: XR CHEST CLINICAL INFORMATION: Dyspnea. COMPARISON: Chest x-ray 04/15/2021 TECHNIQUE: Frontal portable view of the chest was obtained. 5:38 PM FINDINGS: Lung volume is low. Lungs are clear. No pulmonary vascular congestion. There is no pleural effusion. The heart size is normal. The cardiac and mediastinal contours are normal. There are multilevel degenerative changes of dorsal spine. Orthopedic plate and screw at lower cervical spine. Large degenerative spur of the left humeral head at the glenohumeral joint XR/XR chest 1V IMPRESSION: No acute abnormality of chest.
[2021-05-14 15:11] VITALS: BP 125/76; PULSE 74; RESP 14; TEMP 36.6; O2SAT 100; BMI 26.6
--- NOTE | 2021-05-14 15:15 | ECG_ITS ---
Test Reason : DIZZINESS Blood Pressure : / mmHG Vent. Rate : 067 BPM Atrial Rate : 067 BPM P-R Int : 178 ms QRS Dur : 090 ms QT Int : 418 ms P-R-T Axes : 052 -12 052 degrees QTc Int : 441 ms Normal sinus rhythm Low voltage QRS Cannot rule out Anterior infarct , age undetermined Abnormal ECG When compared with ECG of 20-OCT-2020 20:43, No significant change was found Referred By: Generic ED Physician Electronically Signed By:JULIO C FULTON MD
--- NOTE | 2021-05-14 17:29 | ED_ITS ---
HPI - Dizziness General Chief Complaint: Dizziness Stated Complaint: cough,sob Time Seen by Provider: 05/14/21 17:27 Source: patient Mode of arrival: ambulatory Limitations: no limitations History of Present Illness MD elicited complaint: dizziness (body aches, feels short of breath, chills) Pertinent past history: other (chronic headaches) Onset (ago): hour(s) (started this AM several hours ago) Timing: gradual onset Severity: moderate Description: lightheadedness Context: recent illness (dx with COVID / vaccinated x 2 overall notes she does not feel well) History of similar symptoms: Yes Exacerbating factors: movement/ambulation Relieving factors: nothing Associated symptoms: nausea, malaise, weakness and chills Related Data Home Medications Medication Instructions Recorded Confirmed albuterol sulfate 90 mcg/actuation 2 PO Q4-6H PRN 01/01/21 aerosol inhaler amlodipine 5 mg tablet 1 tab PO DAILY 01/01/21 01/01/21 aripiprazole 20 mg tablet 1 tab PO DAILY 01/01/21 01/01/21 clonazepam 1 mg tablet (Klonopin) 1 tab PO TID PRN 01/01/21 01/01/21 fluticasone propionate 110 2 PO BID 01/01/21 mcg/actuation HFA aerosol inhaler (Flovent HFA) fluticasone propionate 50 1 - 2 spray INTRANASAL DAILY PRN 01/01/21 01/01/21 mcg/actuation nasal spray,suspension gabapentin 300 mg capsule 1 cap PO BEDTIME 01/01/21 01/01/21 hydrochlorothiazide 12.5 mg tablet 1 tab PO DAILY 01/01/21 01/01/21 lisinopril 30 mg tablet 1 tab PO DAILY 01/01/21 01/01/21 metformin 500 mg tablet,extended 1 tab PO BID 01/01/21 01/01/21 release 24 hr topiramate 25 mg tablet 1 tab PO BID 01/01/21 01/01/21 trazodone 100 mg tablet 3 tab PO BEDTIME 01/01/21 01/01/21 venlafaxine 150 mg 2 cap PO QAM 01/01/21 01/01/21 capsule,extended release 24 hr Previous Rx's Medication Instructions Recorded phenazopyridine 200 mg tablet 200 mg PO TID #6 tab 05/13/20 (Pyridium) cetirizine 10 mg tablet 10 mg PO DAILY #30 tab 10/07/20 hydroxyzine HCl 25 mg tablet 25 mg PO TID PRN #10 tab 10/07/20 prednisone 20 mg tablet 40 mg PO DAILY #10 tab 10/07/20 ojnycjcdff-errlmgrisjzcd-yogheiuu 1 tab PO Q6H PRN #20 tab 10/20/20 50 mg-325 mg-40 mg tablet cyclobenzaprine 10 mg tablet 10 mg PO TID PRN #14 tab 10/20/20 ondansetron 4 mg disintegrating 4 mg PO Q8H PRN #20 tab 10/20/20 tablet prednisone 20 mg tablet 40 mg PO DAILY 5 Days #10 tab 10/20/20 diphenhydramine HCl 25 mg capsule 50 mg PO Q6-8H PRN #14 cap 10/25/20 (Benadryl) metoclopramide HCl 10 mg tablet 10 mg PO Q6H PRN #30 tab 10/25/20 (Reglan) prednisone 10 mg tablets in a dose 10 mg PO PER PKG DIR #48 ea 11/10/20 pack sennosides 8.6 mg tablet (Natural 8.6 mg PO BEDTIME #30 tab 01/22/21 Senna Laxative) nitrofurantoin 100 mg PO Q12H 5 Days #10 cap 03/11/21 monohydrate/macrocrystals 100 mg capsule (Macrobid) codeine 10 mg-guaifenesin 100 mg/5 10 ml PO Q4-6H PRN #237 ml 04/15/21 mL oral liquid dexamethasone 6 mg tablet 6 mg PO DAILY #7 tab 04/15/21 (Decadron) Allergies Allergy/AdvReac Type Severity Reaction Status Date / Time morphine [MORPHINE] Allergy Intermediate PALPITATIONS, Verified 01/22/21 11:28 tachicardia quetiapine [Seroquel] Allergy Unknown Unknown Verified 01/22/21 11:28 orphenadrine [ORPHENADRINE] AdvReac Intermediate RAPID Verified 01/22/21 11:28 HEART RATE Review of Systems Review of Systems: Constitutional : No Fever, pos Chills, pos Fatigue ENT/Mouth : No sore throat, No Rhinorrhea Eyes: No Eye Pain, No Swelling, No Redness Cardiovascular : No Chest Pain, pos SOB, No Dyspnea on Exertion Respiratory : pos Cough, No Sputum Gastrointestinal : pos Nausea, No Vomiting, No Diarrhea, No abdominal Pain Genitourinary : No Dysuria, No Urinary Frequency, No Hematuria, Musculoskeletal : No joint pain, No Myalgias, No Joint Swelling Skin : No Skin Lesions, No rash Neuro : pos Weakness, No Numbness, pos Dizziness, positive Headache Psych : No Anxiety/Panic, No Depression Heme/Lymph: No Bruising, No Bleeding,No Lymphadenopathy Endocrine : No Polyuria, No Polydipsia All other systems reviewed and are negative REPLACED BY [facility] Past Medical History Medical History Asthma Chronic idiopathic constipation Depression Diabetes 1.5, managed as type 2 Diverticulosis Fibromyalgia Migraine Surgical History Gastric bypass status for obesity H/O colonoscopy History of pubovaginal sling Hx of bilateral breast reduction surgery Hx of oophorectomy Social History Social History Alcohol intake: current Alcohol intake frequency: does not drink Patient Tobacco Use Status: Never used Tobacco Advance Directives: No Advance Directives Information Provided: No Gender identity: Female Physical Exam Vital Signs: Vital Signs: Last Vital Signs Temp 97.9 F 05/14/21 15:11 Pulse 74 05/14/21 15:11 Resp 14 05/14/21 15:11 BP 125/76 05/14/21 15:11 Pulse Ox 100 05/14/21 15:11 BMI result Body Mass Index 26.6 Appearance: Alert. Oriented X3. No acute distress. Eyes: Pupils equal, round and reactive to light. ENT: Pharynx normal. Neck: Normal inspection. Neck supple. CVS: Normal heart rate and rhythm. Pulses normal. Respiratory: No respiratory distress. Breath sounds normal. Chest: ttp along chest wall Abdomen: Soft and nontender. Skin: Skin warm and dry. Normal skin color. Normal skin turgor. Extremities: trace pitting 1+ lower extremity edema. No calf ttp Neuro: Oriented X 3. No motor deficit. No sensory deficit. Course Course Course Narrative: no acute findings, stable for DC at this time MDM - Dizziness MDM Narrative Medical decision making narrative: 61 yo female wtih hx of migraines, COVID 19 - vaccine x 2 + test on 04/14 comes in with multiple symptoms including chills, cough, her whole body hurts at this time will obtain labs, treat symptoms, typical migraine for the patient no hypoxia/tachycardia to suggest VTE no signs of DVT doubt PE at this time Lab Data Result diagrams: 05/14/21 17:52 05/14/21 17:52 Labs: Lab Results 05/14/21 05/14/21 05/14/21 Range/Units 17:52 17:52 17:52 WBC 6.8 (4.8-10.8) X10*3/uL RBC 3.61 L (4.20-5.50) X10*6/uL Hgb 10.2 L (12.0-16.0) g/dl Hct 32.2 L (37.0-47.0) % MCV 89.2 (80.0-98.0) fL MCH 28.3 (27.0-33.0) pg MCHC 31.7 (31.0-35.0) g/dl RDW 15.5 (11.0-16.0) % Plt Count 289 (160-400) X10*3/uL MPV 9.2 L (9.4-12.3) fL Immature Gran % (Auto) 0.4 (0.0-0.4) % Neut % (Auto) 46.4 (45-73) % Lymph % (Auto) 41.4 H (20-40) % [place] % (Auto) 9.4 (2-11) % Eos % (Auto) 2.3 (0-4) % Baso % (Auto) 0.1 (0-2) % Lymph # (Auto) 2.8 (1.2-4.9) X10*3/uL [place] # (Auto) 0.6 (0.1-1.2) X10*3/uL Eos # (Auto) 0.2 (0.0-0.4) X10*3/uL Baso # (Auto) 0.0 (0.0-0.2) X10*3/uL Abs Immat Gran (auto) 0.03 (0.00-0.03) X10*3/uL Absolute Neuts (auto) 3.2 (2.0-8.3) x10*3/uL Absolute Nucleated RBC 0.000 (0.0-0.012) X10*3/uL Nucleated RBC % (auto) 0.0 (0.0-0.2) /100WBC Sodium 143 (135-145) mmol/L Potassium 5.1 (3.3-5.1) mmol/L Chloride 107 (96-108) mmol/L Carbon Dioxide 29 (22-29) mmol/L Anion Gap 12 (12-20) BUN 17 H (9-16) mg/dL Creatinine 0.77 (0.5-1.4) mg/dL Estim Creat Clear Calc 78.5 Estimated GFR > 60 Random Glucose 77 (60-115) mg/dL Calcium 9.6 D 9.6 (8.4-10.2) mg/dL Magnesium 2.1 (1.6-2.6) mg/dL Total Bilirubin 0.2 (0.0-1.0) mg/dL Direct Bilirubin < 0.2 (0.0-0.5) mg/dL AST 19 (5-31) U/L ALT 14 (0-31) U/L Alkaline Phosphatase 56 (39-117) U/L Total Creatine Kinase 120 (26-140) U/L Troponin I High Sens (<3.5-17.0) ng/L B-Natriuretic Peptide (<100) pg/mL Total Protein 6.7 (6.5-8.0) g/dL Albumin 4.0 (3.5-5.0) g/dL Lipase 30 (8-78) U/L COVID-19 (IGOR) (Negative) COVID-19 Clin Com 05/14/21 05/14/21 Range/Units 17:52 17:52 WBC (4.8-10.8) X10*3/uL RBC (4.20-5.50) X10*6/uL Hgb (12.0-16.0) g/dl Hct (37.0-47.0) % MCV (80.0-98.0) fL MCH (27.0-33.0) pg MCHC (31.0-35.0) g/dl RDW (11.0-16.0) % Plt Count (160-400) X10*3/uL MPV (9.4-12.3) fL Immature Gran % (Auto) (0.0-0.4) % Neut % (Auto) (45-73) % Lymph % (Auto) (20-40) % [place] % (Auto) (2-11) % Eos % (Auto) (0-4) % Baso % (Auto) (0-2) % Lymph # (Auto) (1.2-4.9) X10*3/uL [place] # (Auto) (0.1-1.2) X10*3/uL Eos # (Auto) (0.0-0.4) X10*3/uL Baso # (Auto) (0.0-0.2) X10*3/uL Abs Immat Gran (auto) (0.00-0.03) X10*3/uL Absolute Neuts (auto) (2.0-8.3) x10*3/uL Absolute Nucleated RBC (0.0-0.012) X10*3/uL Nucleated RBC % (auto) (0.0-0.2) /100WBC Sodium (135-145) mmol/L Potassium (3.3-5.1) mmol/L Chloride (96-108) mmol/L Carbon Dioxide (22-29) mmol/L Anion Gap (12-20) BUN (9-16) mg/dL Creatinine (0.5-1.4) mg/dL Estim Creat Clear Calc Estimated GFR Random Glucose (60-115) mg/dL Calcium (8.4-10.2) mg/dL Magnesium (1.6-2.6) mg/dL Total Bilirubin (0.0-1.0) mg/dL Direct Bilirubin (0.0-0.5) mg/dL AST (5-31) U/L ALT (0-31) U/L Alkaline Phosphatase (39-117) U/L Total Creatine Kinase (26-140) U/L Troponin I High Sens < 3.5 (<3.5-17.0) ng/L B-Natriuretic Peptide 39 (<100) pg/mL Total Protein (6.5-8.0) g/dL Albumin (3.5-5.0) g/dL Lipase (8-78) U/L COVID-19 (IGOR) Negative (Negative) COVID-19 Clin Com See Note ECG Data Attestation: I personally reviewed and interpreted this ECG as follows: ECG interpretation date: 05/14/21 ECG interpretation time: 17:30 Interpretation: Rate: 67 Rhythm: NSR [place]: left Normal P waves. Normal JOEL. Normal QRS complex. Poor R wave progression ST T wave : normal no JEMMA qTC: normal prior studies: no acute ischemia The study has been interpreted contemporaneously by me. . Discharge Plan Discharge Clinical Impression: Migraine, Myalgia Patient Disposition: Home, Self-Care Instructions: Migraine Headache (ED), Musculoskeletal Pain (ED) Additional Instructions: return to ED for any worsening symptoms or concerns COVID test negative today labs, EKG, CXR normal Prescriptions: No Action cyclobenzaprine 10 mg tablet 10 mg PO TID PRN (Reason: muscle spasm) Qty: 14 RF: 0 prednisone 20 mg tablet 40 mg PO DAILY 5 Days Qty: 10 RF: 0 eqnfgvqhuk-nkctthyjykdzc-aenj 50-325-40 mg tablet 1 tab PO Q6H PRN (Reason: pain) Qty: 20 RF: 0 ondansetron 4 mg tablet,disintegrating 4 mg PO Q8H PRN (Reason: nausea and vomiting) Qty: 20 RF: 0 metformin 500 mg tablet extended release 24 hr 1 tab PO BID RF: 0 clonazepam [Klonopin] 1 mg tablet 1 tab PO TID PRN (Reason: Anxiety) RF: 0 venlafaxine 150 mg capsule,extended release 24hr 2 cap PO QAM RF: 0 topiramate 25 mg tablet 1 tab PO BID RF: 0 amlodipine 5 mg tablet 1 tab PO DAILY RF: 0 trazodone 100 mg tablet 3 tab PO BEDTIME RF: 0 lisinopril 30 mg tablet 1 tab PO DAILY RF: 0 gabapentin 300 mg capsule 1 cap PO BEDTIME RF: 0 albuterol sulfate 90 mcg/actuation HFA aerosol inhaler 2 PO Q4-6H PRN (Reason: Wheezing) RF: 0 fluticasone propionate 50 mcg/actuation spray,suspension 1 - 2 spray intranasal DAILY PRN (Reason: Nasal Congestion) RF: 0 Flovent HFA 110 mcg/actuation HFA aerosol inhaler 2 PO BID RF: 0 aripiprazole 20 mg tablet 1 tab PO DAILY RF: 0 hydrochlorothiazide 12.5 mg tablet 1 tab PO DAILY RF: 0 phenazopyridine [Pyridium] 200 mg tablet 200 mg PO TID Qty: 6 RF: 0 prednisone 20 mg tablet 40 mg PO DAILY Qty: 10 RF: 0 hydroxyzine HCl 25 mg tablet 25 mg PO TID PRN (Reason: itching) Qty: 10 RF: 0 cetirizine 10 mg tablet 10 mg PO DAILY Qty: 30 RF: 0 metoclopramide HCl [Reglan] 10 mg tablet 10 mg PO Q6H PRN (Reason: nausea and vomiting) Qty: 30 RF: 0 diphenhydramine HCl [Benadryl] 25 mg capsule 50 mg PO Q6-8H PRN (Reason: sleep) Qty: 14 RF: 0 prednisone 10 mg tablets,dose pack 10 mg PO PER PKG DIR Qty: 48 RF: 0 nitrofurantoin monohyd/m-cryst [Macrobid] 100 mg capsule 100 mg PO Q12H 5 Days Qty: 10 RF: 0 dexamethasone [Decadron] 6 mg tablet 6 mg PO DAILY Qty: 7 RF: 0 codeine-guaifenesin 10-100 mg/5 mL liquid 10 ml PO Q4-6H PRN (Reason: cough) Qty: 237 RF: 0 sennosides [Natural Senna Laxative] 8.6 mg tablet 8.6 mg PO BEDTIME Qty: 30 RF: 3 Referrals: Elizabeth Dunn MD [Primary Care Provider] - 2 days (if not better)
[2021-05-14 17:58] LABS: Basophils Percent Auto 0.1 % (0-2); Eosinophils Absolute Auto 0.2 X10*3/uL (0.0-0.4); Eosinophils Percent Auto 2.3 % (0-4); Hematocrit 32.2 % (37.0-47.0); Hemoglobin 10.2 g/dl (12.0-16.0); Imm Gran Abs Auto 0.03 X10*3/uL (0.00-0.03); Imm Gran Pct Auto 0.4 % (0.0-0.4); Lymphocytes Absolute Auto 2.8 X10*3/uL (1.2-4.9); Lymphocytes Percent Auto 41.4 % (20-40); MANUAL DIFF FLAG NO; Mean Corpuscular HGB Conc 31.7 g/dl (31.0-35.0); Mean Corpuscular Hemoglobin 28.3 pg (27.0-33.0); Mean Corpuscular Volume 89.2 fL (80.0-98.0); Mean Platelet Volume 9.2 fL (9.4-12.3); Monocytes Absolute Auto 0.6 X10*3/uL (0.1-1.2); Monocytes Percent Auto 9.4 % (2-11); Neutrophils Absolute Auto 3.2 x10*3/uL (2.0-8.3); Neutrophils Percent Auto 46.4 % (45-73); Platelet Count 289 X10*3/uL (160-400); Red Blood Count 3.61 X10*6/uL (4.20-5.50); Red Cell Distribution Width 15.5 % (11.0-16.0); White Blood Count 6.8 X10*3/uL (4.8-10.8)
[2021-05-14] MEDS: Metoclopramide HCl 10 MG/2 ML VIAL 5 MG IVPUSH (18:13)
[2021-05-14] MEDS: diphenhydrAMINE HCL 50 MG/ML VIAL 25 MG IVPUSH (18:13)
[2021-05-14 18:17] LABS: Calcium 9.6 mg/dL (8.4-10.2)
[2021-05-14 18:18] LABS: COVID-19 Test Negative (Negative)
[2021-05-14 18:22] LABS: Alanine Aminotransferase 14 U/L (0-31); Alkaline Phosphatase 56 U/L (39-117); Anion Gap 12 (12-20); Aspartate Amino Transferase 19 U/L (5-31); Bilirubin Direct < 0.2 mg/dL (0.0-0.5); Bilirubin Total 0.2 mg/dL (0.0-1.0); Blood Urea Nitrogen 17 mg/dL (9-16); Calcium 9.6 mg/dL (8.4-10.2); Carbon Dioxide 29 mmol/L (22-29); Chloride 107 mmol/L (96-108); Creatinine Clr Calc Pharmacy 78.5; Estimated Glomerular Filt Rate > 60; Glucose Random 77 mg/dL (60-115); Lipase 30 U/L (8-78); Magnesium 2.1 mg/dL (1.6-2.6); Potassium 5.1 mmol/L (3.3-5.1); Sodium 143 mmol/L (135-145); Total Protein 6.7 g/dL (6.5-8.0)
[2021-05-14 18:26] LABS: B Type Natriuretic Peptide 39 pg/mL (<100); Troponin-I High Sensitivity < 3.5 ng/L (<3.5-17.0)
[2021-05-14 19:05] VITALS: BP 135/74; PULSE 66; RESP 16; O2SAT 98
== END 2021-05-14 19:07 | disposition home or self-care (01) ==
PROVIDERS: Emergency Provider Emergency Medicine; PCP Internal Medicine
DX: G43.909 Migraine, unspecified, not intractable, without status migrainosus (principal); M79.10 Myalgia, unspecified site; Z20.822 Contact with and (suspected) exposure to COVID-19; R06.02 Shortness of breath; E13.9 Other specified diabetes mellitus without complications
CPT/HCPCS: 36415; 71045; 80048; 80076; 82310; 82550; 83690; 83735; 83880; 84484; 85025; 87635; 93005; 96374; 96375; 99283; 99284; J1200; J2765

== ENCOUNTER 2021-05-23 09:41 | Emergency (ER) | payer MEDICAID, SELFPAY ==
--- NOTE | 2021-05-23 | ECG_ITS ---
Test Reason : chest pain / falls Blood Pressure : / mmHG Vent. Rate : 071 BPM Atrial Rate : 071 BPM P-R Int : 166 ms QRS Dur : 086 ms QT Int : 428 ms P-R-T Axes : 058 -18 035 degrees QTc Int : 465 ms Normal sinus rhythm Septal infarct (cited on or before 14-MAY-2021) Abnormal ECG When compared with ECG of 14-MAY-2021 15:19, Questionable change in initial forces of Septal leads Referred By: Generic ED Physician Electronically Signed By:GEOFFREY BISHOP
--- NOTE | ~2021-05-23 | CT_ITS ---
EXAMINATION: CT HEAD WITHOUT CONTRAST CLINICAL INFORMATION: Dizziness and fall COMPARISON: 03/21/2021 TECHNIQUE: Contiguous axial imaging was performed from the skull base to vertex without intravenous administration of contrast. This CT examination was performed using dose optimization techniques as appropriate, variously including the following: *Automated exposure control *Adjustment of mA and/or kV according to patient size (this includes techniques or standardized protocols for targeted exams where dose is matched to indication/reason for exam; i.e. extremities or head) *Use of iterative reconstruction technique DLP: 641 mGy-cm FINDINGS: There is no evidence of acute intracranial hemorrhage or territorial infarction. No abnormal mass effect or midline shift is seen. [place] to white matter differentiation is well preserved. No extra-axial fluid collections are identified. The ventricles are normal in size. There is no abnormal attenuation within the brain parenchyma. Cavernous carotid calcifications. The osseous structures and soft tissues are normal. The mastoid air cells and visualized portions of the paranasal sinuses are well aerated. CT/CT head/brain wo con IMPRESSION: No acute intracranial pathology.
[2021-05-23 10:07] VITALS: BP 140/76; PULSE 88; RESP 19; TEMP 36.1; O2SAT 99; BMI 26.6
[2021-05-23 20:46] VITALS: BP 144/85; PULSE 73; RESP 16; TEMP 36.7; O2SAT 98
--- NOTE | 2021-05-23 22:52 | PC.NURSE ---
patient now complaining of chest pain, will order ekg
[2021-05-23 23:27] VITALS: BP 156/86; PULSE 70; RESP 24; O2SAT 100
[2021-05-23 23:30] LABS: Basophils Percent Auto 0.3 % (0-2); Eosinophils Absolute Auto 0.1 X10*3/uL (0.0-0.4); Eosinophils Percent Auto 1.4 % (0-4); Hematocrit 35.6 % (37.0-47.0); Hemoglobin 11.6 g/dl (12.0-16.0); Imm Gran Abs Auto 0.05 X10*3/uL (0.00-0.03); Imm Gran Pct Auto 0.6 % (0.0-0.4); Lymphocytes Absolute Auto 2.9 X10*3/uL (1.2-4.9); Lymphocytes Percent Auto 36.7 % (20-40); MANUAL DIFF FLAG NO; Mean Corpuscular HGB Conc 32.6 g/dl (31.0-35.0); Mean Corpuscular Hemoglobin 28.4 pg (27.0-33.0); Mean Platelet Volume 9.6 fL (9.4-12.3); Monocytes Absolute Auto 0.8 X10*3/uL (0.1-1.2); Monocytes Percent Auto 9.5 % (2-11); Neutrophils Absolute Auto 4.1 x10*3/uL (2.0-8.3); Neutrophils Percent Auto 51.5 % (45-73); Platelet Count 286 X10*3/uL (160-400); Red Blood Count 4.09 X10*6/uL (4.20-5.50); Red Cell Distribution Width 14.9 % (11.0-16.0); White Blood Count 7.9 X10*3/uL (4.8-10.8)
[2021-05-23 23:50] LABS: COVID-19 Test Negative (Negative); IDNOW Serial# 9DD0AD1C
[2021-05-23 23:53] LABS: Alanine Aminotransferase 24 U/L (0-31); Albumin Level 4.1 g/dL (3.5-5.0); Alkaline Phosphatase 67 U/L (39-117); Anion Gap 13 (12-20); Aspartate Amino Transferase 27 U/L (5-31); Bilirubin Total 0.4 mg/dL (0.0-1.0); Blood Urea Nitrogen 21 mg/dL (9-16); Calcium 9.6 mg/dL (8.4-10.2); Carbon Dioxide 23 mmol/L (22-29); Chloride 106 mmol/L (96-108); Creatinine Clr Calc Pharmacy 80.6; Estimated Glomerular Filt Rate > 60; Glucose Random 89 mg/dL (60-115); Sodium 138 mmol/L (135-145); Total Protein 7.3 g/dL (6.5-8.0)
[2021-05-23 23:59] LABS: Troponin-I High Sensitivity < 3.5 ng/L (<3.5-17.0)
--- NOTE | 2021-05-24 00:20 | PC.NURSE ---
Pt in [place] complaining i can't breath . checked her O2 100 on RA.
--- NOTE | 2021-05-24 02:27 | ED.FALL ---
HPI - Fall General Chief Complaint: Fall Stated Complaint: fall head neck shoulder inj Time Seen by Provider: 05/24/21 02:27 Source: patient Mode of arrival: ambulatory Limitations: no limitations History of Present Illness HPI Narrative: Patient with recent falls and hit her head, so she was sent in by her primary. Patient fell yesterday. she states she is feeling dizzy MD complaint: fall Onset (ago): week(s) Fall from: standing Place fall occurred: home Loss of consciousness: none Severity: mild Related Data Home Medications Medication Instructions Recorded Confirmed albuterol sulfate 90 mcg/actuation 2 PO Q4-6H PRN 01/01/21 aerosol inhaler amlodipine 5 mg tablet 1 tab PO DAILY 01/01/21 01/01/21 aripiprazole 20 mg tablet 1 tab PO DAILY 01/01/21 01/01/21 clonazepam 1 mg tablet (Klonopin) 1 tab PO TID PRN 01/01/21 01/01/21 fluticasone propionate 110 2 PO BID 01/01/21 mcg/actuation HFA aerosol inhaler (Flovent HFA) fluticasone propionate 50 1 - 2 spray INTRANASAL DAILY PRN 01/01/21 01/01/21 mcg/actuation nasal spray,suspension gabapentin 300 mg capsule 1 cap PO BEDTIME 01/01/21 01/01/21 hydrochlorothiazide 12.5 mg tablet 1 tab PO DAILY 01/01/21 01/01/21 lisinopril 30 mg tablet 1 tab PO DAILY 01/01/21 01/01/21 metformin 500 mg tablet,extended 1 tab PO BID 01/01/21 01/01/21 release 24 hr topiramate 25 mg tablet 1 tab PO BID 01/01/21 01/01/21 trazodone 100 mg tablet 3 tab PO BEDTIME 01/01/21 01/01/21 venlafaxine 150 mg 2 cap PO QAM 01/01/21 01/01/21 capsule,extended release 24 hr Previous Rx's Medication Instructions Recorded phenazopyridine 200 mg tablet 200 mg PO TID #6 tab 05/13/20 (Pyridium) cetirizine 10 mg tablet 10 mg PO DAILY #30 tab 10/07/20 hydroxyzine HCl 25 mg tablet 25 mg PO TID PRN #10 tab 10/07/20 prednisone 20 mg tablet 40 mg PO DAILY #10 tab 10/07/20 ljrjtjopug-cglvfgbiayhvs-mcvvwwhl 1 tab PO Q6H PRN #20 tab 10/20/20 50 mg-325 mg-40 mg tablet cyclobenzaprine 10 mg tablet 10 mg PO TID PRN #14 tab 10/20/20 ondansetron 4 mg disintegrating 4 mg PO Q8H PRN #20 tab 10/20/20 tablet prednisone 20 mg tablet 40 mg PO DAILY 5 Days #10 tab 10/20/20 diphenhydramine HCl 25 mg capsule 50 mg PO Q6-8H PRN #14 cap 10/25/20 (Benadryl) metoclopramide HCl 10 mg tablet 10 mg PO Q6H PRN #30 tab 10/25/20 (Reglan) prednisone 10 mg tablets in a dose 10 mg PO PER PKG DIR #48 ea 11/10/20 pack sennosides 8.6 mg tablet (Natural 8.6 mg PO BEDTIME #30 tab 01/22/21 Senna Laxative) nitrofurantoin 100 mg PO Q12H 5 Days #10 cap 03/11/21 monohydrate/macrocrystals 100 mg capsule (Macrobid) codeine 10 mg-guaifenesin 100 mg/5 10 ml PO Q4-6H PRN #237 ml 04/15/21 mL oral liquid dexamethasone 6 mg tablet 6 mg PO DAILY #7 tab 04/15/21 (Decadron) acetaminophen 500 mg tablet 1,000 mg PO Q6H PRN #30 tab 05/24/21 (Tylenol Extra Strength) gabapentin 300 mg capsule 300 mg PO BID #30 cap 05/24/21 Allergies Allergy/AdvReac Type Severity Reaction Status Date / Time morphine [MORPHINE] Allergy Intermediate PALPITATIONS, Verified 01/22/21 11:28 tachicardia quetiapine [Seroquel] Allergy Unknown Unknown Verified 01/22/21 11:28 orphenadrine [ORPHENADRINE] AdvReac Intermediate RAPID Verified 01/22/21 11:28 HEART RATE Review of Systems Neurologic: Denies Sensory deficit (Neuro) [facility] Past Medical History Medical History Asthma Chronic idiopathic constipation Depression Diabetes 1.5, managed as type 2 Diverticulosis Fibromyalgia Migraine Surgical History Gastric bypass status for obesity H/O colonoscopy History of pubovaginal sling Hx of bilateral breast reduction surgery Hx of oophorectomy Social History Social History Alcohol intake: current Alcohol intake frequency: does not drink Patient Tobacco Use Status: Never used Tobacco Advance Directives: No Gender identity: Female Physical Exam Vital Signs: Vital Signs: Last Vital Signs Temp 98.1 F 05/23/21 20:46 Pulse 70 05/23/21 23:27 Resp 24 H 05/23/21 23:27 BP 156/86 H 05/23/21 23:27 Pulse Ox 100 05/23/21 23:27 BMI result Body Mass Index 26.6 Const: Other: anxious tearful with pain out of proportion to physical findings Nutritional Appearance: average body habitus Orientation/consciousness: oriented to person and patient oriented x3 Limitations: no limitations HENMT: Head: Yes normal to inspection Ears: external ears normal General nose exam: Normal external nose present Mouth: Normal oral and palatal mucosa present and oropharynx normal Throat: Yes posterior oropharynx normal Eyes: General: appearance normal, both eyes and all related structures Neck: Other: supple Neck: Yes normal visual inspection Chest: Chest palpation & inspection: normal inspection of the chest Resp: Auscultation: clear to auscultation bilaterally Cardio: Jugular venous distension: no JVD Rate: regular rate Rhythm: regular rhythm Heart sounds: S1 normal heart sound present and S2 normal heart sound present GI: Inspection: Yes normal to inspection Palpation (GI): Soft to palpation, nontender and No hepatosplenomegaly present Auscultation: normal bowel sounds : General: Yes no CVA tenderness Back/Spine/Pelvis: Back: no CVA tenderness Skin: General skin exam: no rashes or lesions noted Neuro: General: oriented to person and patient oriented x3 Cranial nerves: Yes CN's II-XII intact bilaterally Motor exam (neuro): 5/5 motor strength present throughout Sensory Exam: No Sensory deficit (Neuro) Extrem: General: Yes normal to inspection Psych: Other: extremely anxious Course Reevaluation(s) Reevaluation #1: patient with pain out of proportion to physical findings will increase gabapentin to 300mg twice a day. Patient also to take tylenol for her head contusion Time: 03:29 MDM - Fall Lab Data Result diagrams: 05/23/21 23:24 05/23/21 23:24 Labs: Lab Results 05/23/21 05/23/21 05/23/21 Range/Units 23:24 23:24 23:24 WBC 7.9 (4.8-10.8) X10*3/uL RBC 4.09 L (4.20-5.50) X10*6/uL Hgb 11.6 L (12.0-16.0) g/dl Hct 35.6 L (37.0-47.0) % MCV 87.0 (80.0-98.0) fL MCH 28.4 (27.0-33.0) pg MCHC 32.6 (31.0-35.0) g/dl RDW 14.9 (11.0-16.0) % Plt Count 286 (160-400) X10*3/uL MPV 9.6 (9.4-12.3) fL Immature Gran % (Auto) 0.6 H (0.0-0.4) % Neut % (Auto) 51.5 (45-73) % Lymph % (Auto) 36.7 (20-40) % [place] % (Auto) 9.5 (2-11) % Eos % (Auto) 1.4 (0-4) % Baso % (Auto) 0.3 (0-2) % Lymph # (Auto) 2.9 (1.2-4.9) X10*3/uL [place] # (Auto) 0.8 (0.1-1.2) X10*3/uL Eos # (Auto) 0.1 (0.0-0.4) X10*3/uL Baso # (Auto) 0.0 (0.0-0.2) X10*3/uL Abs Immat Gran (auto) 0.05 H (0.00-0.03) X10*3/uL Absolute Neuts (auto) 4.1 (2.0-8.3) x10*3/uL Absolute Nucleated RBC 0.000 (0.0-0.012) X10*3/uL Nucleated RBC % (auto) 0.0 (0.0-0.2) /100WBC Sodium 138 (135-145) mmol/L Potassium 4.0 D (3.3-5.1) mmol/L Chloride 106 (96-108) mmol/L Carbon Dioxide 23 (22-29) mmol/L Anion Gap 13 (12-20) BUN 21 H (9-16) mg/dL Creatinine 0.75 (0.5-1.4) mg/dL Estim Creat Clear Calc 80.6 Estimated GFR > 60 Random Glucose 89 (60-115) mg/dL Calcium 9.6 (8.4-10.2) mg/dL Total Bilirubin 0.4 (0.0-1.0) mg/dL AST 27 D (5-31) U/L ALT 24 (0-31) U/L Alkaline Phosphatase 67 (39-117) U/L Troponin I High Sens < 3.5 (<3.5-17.0) ng/L Total Protein 7.3 (6.5-8.0) g/dL Albumin 4.1 (3.5-5.0) g/dL COVID-19 ([facility]) (Negative) COVID-19 Clin Com 05/23/21 Range/Units 23:30 WBC (4.8-10.8) X10*3/uL RBC (4.20-5.50) X10*6/uL Hgb (12.0-16.0) g/dl Hct (37.0-47.0) % MCV (80.0-98.0) fL MCH (27.0-33.0) pg MCHC (31.0-35.0) g/dl RDW (11.0-16.0) % Plt Count (160-400) X10*3/uL MPV (9.4-12.3) fL Immature Gran % (Auto) (0.0-0.4) % Neut % (Auto) (45-73) % Lymph % (Auto) (20-40) % [place] % (Auto) (2-11) % Eos % (Auto) (0-4) % Baso % (Auto) (0-2) % Lymph # (Auto) (1.2-4.9) X10*3/uL [place] # (Auto) (0.1-1.2) X10*3/uL Eos # (Auto) (0.0-0.4) X10*3/uL Baso # (Auto) (0.0-0.2) X10*3/uL Abs Immat Gran (auto) (0.00-0.03) X10*3/uL Absolute Neuts (auto) (2.0-8.3) x10*3/uL Absolute Nucleated RBC (0.0-0.012) X10*3/uL Nucleated RBC % (auto) (0.0-0.2) /100WBC Sodium (135-145) mmol/L Potassium (3.3-5.1) mmol/L Chloride (96-108) mmol/L Carbon Dioxide (22-29) mmol/L Anion Gap (12-20) BUN (9-16) mg/dL Creatinine (0.5-1.4) mg/dL Estim Creat Clear Calc Estimated GFR Random Glucose (60-115) mg/dL Calcium (8.4-10.2) mg/dL Total Bilirubin (0.0-1.0) mg/dL AST (5-31) U/L ALT (0-31) U/L Alkaline Phosphatase (39-117) U/L Troponin I High Sens (<3.5-17.0) ng/L Total Protein (6.5-8.0) g/dL Albumin (3.5-5.0) g/dL COVID-19 ([facility]) Negative (Negative) COVID-19 Clin Com See Note Imaging Data CT scan - head: Radiologist's impression: FINDINGS: There is no evidence of acute intracranial hemorrhage or territorial infarction. No abnormal mass effect or midline shift is seen. [place] to white matter differentiation is well preserved. No extra-axial fluid collections are identified. The ventricles are normal in size. There is no abnormal attenuation within the brain parenchyma. Cavernous carotid calcifications. The osseous structures and soft tissues are normal. The mastoid air cells and visualized portions of the paranasal sinuses are well aerated. ? CT/CT head/brain wo con IMPRESSION: No acute intracranial pathology. Discharge Plan Discharge Clinical Impression: Contusion of head Qualifiers: Encounter type: initial encounter Contusion of head detail: scalp Qualified Code(s): S00.03XA - Contusion of scalp, initial encounter Patient Disposition: Home, Self-Care Instructions: Contusion in Adults (ED) Prescriptions: New gabapentin 300 mg capsule 300 mg PO BID Qty: 30 RF: 0 acetaminophen [Tylenol Extra Strength] 500 mg tablet 1,000 mg PO Q6H PRN (Reason: pain) Qty: 30 RF: 0 No Action cyclobenzaprine 10 mg tablet 10 mg PO TID PRN (Reason: muscle spasm) Qty: 14 RF: 0 prednisone 20 mg tablet 40 mg PO DAILY 5 Days Qty: 10 RF: 0 fplqgmwlcd-oxuhdsxrilzuc-epfo 50-325-40 mg tablet 1 tab PO Q6H PRN (Reason: pain) Qty: 20 RF: 0 ondansetron 4 mg tablet,disintegrating 4 mg PO Q8H PRN (Reason: nausea and vomiting) Qty: 20 RF: 0 metformin 500 mg tablet extended release 24 hr 1 tab PO BID RF: 0 clonazepam [Klonopin] 1 mg tablet 1 tab PO TID PRN (Reason: Anxiety) RF: 0 venlafaxine 150 mg capsule,extended release 24hr 2 cap PO QAM RF: 0 topiramate 25 mg tablet 1 tab PO BID RF: 0 amlodipine 5 mg tablet 1 tab PO DAILY RF: 0 trazodone 100 mg tablet 3 tab PO BEDTIME RF: 0 lisinopril 30 mg tablet 1 tab PO DAILY RF: 0 gabapentin 300 mg capsule 1 cap PO BEDTIME RF: 0 albuterol sulfate 90 mcg/actuation HFA aerosol inhaler 2 PO Q4-6H PRN (Reason: Wheezing) RF: 0 fluticasone propionate 50 mcg/actuation spray,suspension 1 - 2 spray intranasal DAILY PRN (Reason: Nasal Congestion) RF: 0 Flovent HFA 110 mcg/actuation HFA aerosol inhaler 2 PO BID RF: 0 aripiprazole 20 mg tablet 1 tab PO DAILY RF: 0 hydrochlorothiazide 12.5 mg tablet 1 tab PO DAILY RF: 0 phenazopyridine [Pyridium] 200 mg tablet 200 mg PO TID Qty: 6 RF: 0 prednisone 20 mg tablet 40 mg PO DAILY Qty: 10 RF: 0 hydroxyzine HCl 25 mg tablet 25 mg PO TID PRN (Reason: itching) Qty: 10 RF: 0 cetirizine 10 mg tablet 10 mg PO DAILY Qty: 30 RF: 0 metoclopramide HCl [Reglan] 10 mg tablet 10 mg PO Q6H PRN (Reason: nausea and vomiting) Qty: 30 RF: 0 diphenhydramine HCl [Benadryl] 25 mg capsule 50 mg PO Q6-8H PRN (Reason: sleep) Qty: 14 RF: 0 prednisone 10 mg tablets,dose pack 10 mg PO PER PKG DIR Qty: 48 RF: 0 nitrofurantoin monohyd/m-cryst [Macrobid] 100 mg capsule 100 mg PO Q12H 5 Days Qty: 10 RF: 0 dexamethasone [Decadron] 6 mg tablet 6 mg PO DAILY Qty: 7 RF: 0 codeine-guaifenesin 10-100 mg/5 mL liquid 10 ml PO Q4-6H PRN (Reason: cough) Qty: 237 RF: 0 sennosides [Natural Senna Laxative] 8.6 mg tablet 8.6 mg PO BEDTIME Qty: 30 RF: 3 Referrals: Elizabeth Dunn MD [Primary Care Provider] - 5 days
[2021-05-24] MEDS: Ketorolac Tromethamine 60 MG/2 ML VIAL IM (02:56)
--- NOTE | 2021-05-24 02:57 | PC.NURSE ---
pt arrived in the ed by wheelchair, once in bed pt was moaning and covering her head with her hands. pt has been medicated for the pain to the right side of her head. pt is alert oriented and follows commands.
[2021-05-24] MEDS: Acetaminophen 325 MG TABLET 975 MG PO (03:41)
[2021-05-24] MEDS: Gabapentin 300 MG CAPSULE PO (03:41)
[2021-05-24 03:46] VITALS: BP 147/81; PULSE 72; RESP 20; O2SAT 100
== END 2021-05-24 03:49 | disposition home or self-care (01) ==
PROVIDERS: Emergency Provider Emergency Medicine; PCP Internal Medicine
DX: S00.03XA Contusion of scalp, initial encounter (principal); W17.89XA Other fall from one level to another, initial encounter; Z20.822 Contact with and (suspected) exposure to COVID-19; E13.9 Other specified diabetes mellitus without complications; J45.909 Unspecified asthma, uncomplicated; Y93.9 Activity, unspecified; Y92.039 Unspecified place in apartment as the place of occurrence of the external cause; Y99.9 Unspecified external cause status
CPT/HCPCS: 36415; 70450; 80053; 84484; 85025; 87635; 93005; 96372; 99284; J1885

== ENCOUNTER 2021-06-04 18:28 | Emergency (ER) | payer MEDICAID, SELFPAY ==
--- NOTE | ~2021-06-04 | US_ITS ---
EXAMINATION: US VENOUS ULTRASOUND WITH DOPPLER LOWER EXTREMITY, BILATERAL CLINICAL INFORMATION: Bilateral lower extremity pain COMPARISON: None TECHNIQUE: Ultrasound of the deep veins is performed from the hip to the calf with compression sonography and color and pulse Doppler assessment. Spectral analysis with color-flow imaging is performed. FINDINGS: RIGHT: There is normal venous compression and respiratory variation and augmented flow. The visualized common femoral vein, superficial femoral vein, profunda femoral vein, popliteal vein, and the trifurcation region shows no evidence of deep venous thrombosis. There is no significant popliteal fossa cyst. LEFT: There is normal venous compression and respiratory variation and augmented flow. The visualized common femoral vein, superficial femoral vein, profunda femoral vein, popliteal vein, and the trifurcation region shows no evidence of deep venous thrombosis. There is no significant popliteal fossa cyst. If the patient's symptoms persist, followup ultrasound in 5 days 7 days might be of value to exclude proximal propagation from a non-visualized calf vein. US/US venous duplex LE BI IMPRESSION: No DVT demonstrated in either lower extremity.
--- NOTE | ~2021-06-04 | CT_ITS ---
EXAMINATION: CT ABDOMEN AND PELVIS WITHOUT CONTRAST CLINICAL INFORMATION: Left flank pain. COMPARISON: 02/21/2021 TECHNIQUE: Multidetector volumetric imaging was performed from the superior aspect of the liver through the pubic symphysis. Sagittal and coronal reformatted images were obtained on the technologist's workstation. This CT examination was performed using dose optimization techniques as appropriate, variously including the following: *Automated exposure control *Adjustment of mA and/or kV according to patient size (this includes techniques or standardized protocols for targeted exams where dose is matched to indication/reason for exam; i.e. extremities or head) *Use of iterative reconstruction technique DLP: 589 mGy-cm FINDINGS: LUNG BASES: There is dependent atelectasis in the lower lobes with linear pleural brachial scarring at the left lung base. LIVER, GALLBLADDER, AND BILIARY TREE: The liver is normal in size, shape, and attenuation. No focal hepatic lesion or biliary ductal dilatation is present. The gallbladder is unremarkable with no evidence of radiopaque gallstones, gallbladder wall thickening, or obvious pericholecystic inflammatory changes. PANCREAS: Unremarkable. SPLEEN: Punctate calcifications in the splenic parenchyma are consistent with granulomas. ADRENAL GLANDS: Unremarkable. KIDNEYS AND URETERS: The kidneys are normal in size, shape, and attenuation. No hydronephrosis, hydroureter, or calculi seen. Multiple small subcentimeter cystic foci are present in the parapelvic regions bilaterally, left side greater than right, favored to correspond to parapelvic cysts. No follow-up imaging recommendation. Mild perinephric stranding bilaterally. BLADDER: Unremarkable. GASTROINTESTINAL TRACT: Postsurgical changes of prior antecolic, antigastric Sanket-en-Y gastric bypass. There is bowel wall thickening and surrounding fat stranding at the gastrojejunal anastomosis anteriorly, concerning for local inflammation. Ulceration is possible. No surrounding fluid collections or extraluminal gas to indicate full-thickness perforation. There is a small rounded 1.2 cm structure in this region which may correspond to a reactive lymph node. The excluded stomach is decompressed. Small bowel is normal in caliber. There is a moderate to large volume of stool throughout the colon. ABDOMINAL WALL: No significant hernia is appreciated. LYMPH NODES: As noted above, there is a borderline enlarged lymph node adjacent to the gastrojejunal anastomosis. This was present on the prior study and may correspond to a reactive node. No additional adenopathy. VASCULAR: Minimal calcific atherosclerosis in the abdominal aorta. No aneurysmal dilatation. PELVIC VISCERA: Unremarkable. OSSEOUS STRUCTURES: Severe degenerative disc disease at L5-S1. Diffuse eval skeletal hyperostosis in the thoracic spine. Mild to moderate osteoarthritis in the hips and SI joints. CT/CT abdomen pelvis wo con IMPRESSION: 1. Inflammation around the jejunal portion of the gastrojejunal anastomosis, possibly due to ulceration. No evidence of perforation or abscess formation. 2. Moderate to large volume of stool throughout the colon as can be seen with constipation. Fleischner guidelines were followed.
[2021-06-04 18:55] VITALS: BP 120/69; BP 126/70; PULSE 58; PULSE 65; RESP 20; TEMP 36.6; O2SAT 100; BMI 28.3
--- NOTE | 2021-06-04 19:31 | ED_ITS ---
HPI - General Adult General Chief complaint: Abdominal Pain Stated complaint: bilat LL edema, back pain, urine problems Time Seen by Provider: 06/04/21 19:07 Source: patient Mode of arrival: ambulatory Limitations: no limitations History of Present Illness HPI narrative: patient comes to the emergency room complaining of left flank pain, mild left-sided abdominal pain, and bilateral leg swelling. Patient also complaining of urinary retention. On arrival, bladder scan was done in triage, shows 128 mL of urine. Patient states that it feels that she has her bladder completely full. Also, patient complaining of bilateral leg swelling that started yesterday, bilateral leg pain. Related Data Home Medications Medication Instructions Recorded Confirmed albuterol sulfate 90 mcg/actuation 2 PO Q4-6H PRN 01/01/21 aerosol inhaler amlodipine 5 mg tablet 1 tab PO DAILY 01/01/21 01/01/21 aripiprazole 20 mg tablet 1 tab PO DAILY 01/01/21 01/01/21 clonazepam 1 mg tablet (Klonopin) 1 tab PO TID PRN 01/01/21 01/01/21 fluticasone propionate 110 2 PO BID 01/01/21 mcg/actuation HFA aerosol inhaler (Flovent HFA) fluticasone propionate 50 1 - 2 spray INTRANASAL DAILY PRN 01/01/21 01/01/21 mcg/actuation nasal spray,suspension gabapentin 300 mg capsule 1 cap PO BEDTIME 01/01/21 01/01/21 hydrochlorothiazide 12.5 mg tablet 1 tab PO DAILY 01/01/21 01/01/21 lisinopril 30 mg tablet 1 tab PO DAILY 01/01/21 01/01/21 metformin 500 mg tablet,extended 1 tab PO BID 01/01/21 01/01/21 release 24 hr topiramate 25 mg tablet 1 tab PO BID 01/01/21 01/01/21 trazodone 100 mg tablet 3 tab PO BEDTIME 01/01/21 01/01/21 venlafaxine 150 mg 2 cap PO QAM 01/01/21 01/01/21 capsule,extended release 24 hr Previous Rx's Medication Instructions Recorded phenazopyridine 200 mg tablet 200 mg PO TID #6 tab 05/13/20 (Pyridium) cetirizine 10 mg tablet 10 mg PO DAILY #30 tab 05/29/21 hydroxyzine HCl 25 mg tablet 25 mg PO TID PRN #10 tab 10/07/20 prednisone 20 mg tablet 40 mg PO DAILY #10 tab 10/07/20 gmvswtoptr-eybwhibnfhrdd-nuglsyzv 1 tab PO Q6H PRN #20 tab 10/20/20 50 mg-325 mg-40 mg tablet cyclobenzaprine 10 mg tablet 10 mg PO TID PRN #14 tab 10/20/20 ondansetron 4 mg disintegrating 4 mg PO Q8H PRN #20 tab 10/20/20 tablet prednisone 20 mg tablet 40 mg PO DAILY 5 Days #10 tab 10/20/20 diphenhydramine HCl 25 mg capsule 50 mg PO Q6-8H PRN #14 cap 10/25/20 (Benadryl) metoclopramide HCl 10 mg tablet 10 mg PO Q6H PRN #30 tab 10/25/20 (Reglan) prednisone 10 mg tablets in a dose 10 mg PO PER PKG DIR #48 ea 11/10/20 pack sennosides 8.6 mg tablet (Natural 8.6 mg PO BEDTIME #30 tab 01/22/21 Senna Laxative) nitrofurantoin 100 mg PO Q12H 5 Days #10 cap 03/11/21 monohydrate/macrocrystals 100 mg capsule (Macrobid) codeine 10 mg-guaifenesin 100 mg/5 10 ml PO Q4-6H PRN #237 ml 04/15/21 mL oral liquid dexamethasone 6 mg tablet 6 mg PO DAILY #7 tab 04/15/21 (Decadron) acetaminophen 500 mg tablet 1,000 mg PO Q6H PRN #30 tab 05/24/21 (Tylenol Extra Strength) gabapentin 300 mg capsule 300 mg PO BID #30 cap 05/24/21 furosemide 20 mg tablet (Lasix) 10 mg PO BID #8 tab 06/04/21 Allergies Allergy/AdvReac Type Severity Reaction Status Date / Time morphine [MORPHINE] Allergy Intermediate PALPITATIONS, Verified 01/22/21 11:28 tachicardia quetiapine [Seroquel] Allergy Unknown Unknown Verified 01/22/21 11:28 orphenadrine [ORPHENADRINE] AdvReac Intermediate RAPID Verified 01/22/21 11:28 HEART RATE PMFSH Past Medical History Medical History Anxiety Asthma Chronic idiopathic constipation Depression Diabetes 1.5, managed as type 2 Diverticulosis Fibromyalgia Migraine Surgical History Gastric bypass status for obesity H/O colonoscopy History of pubovaginal sling Hx of bilateral breast reduction surgery Hx of oophorectomy Social History Social History Alcohol intake: current Alcohol intake frequency: does not drink Patient Tobacco Use Status: Never used Tobacco Advance Directives: No Advance Directives Information Provided: Yes Patient : No Gender identity: Female Physical Exam Vital Signs: Vital Signs: Last Vital Signs Temp 97.8 F 06/04/21 18:55 Pulse 58 06/04/21 18:55 Resp 20 06/04/21 18:55 BP 120/69 06/04/21 18:55 Pulse Ox 100 06/04/21 18:55 BMI result Body Mass Index 28.3 Const: Other: Appearance: Alert. Oriented X3. Very anxious Eyes: Pupils equal, round and reactive to light. ENT: Pharynx normal. Neck: Normal inspection. Neck supple. No lymph nodes noted. No crepitus CVS: Normal heart rate and rhythm. Pulses normal. Normal S1 and S2 Respiratory: No respiratory distress. Breath sounds normal. No Wheezing. No rales Abdomen: Soft , very mild discomfort on palpation over the left upper and lower quadrant. Back: Pain to palpation in upper back, middle and lower back. Positive CVA tenderness and the left side. Skin: Skin warm and dry. Normal skin color. Normal skin turgor. Extremities: No lower extremity edema. No lower extremity edema. No Lacerations. No Rash Neuro: Oriented X 3. No motor deficit. No sensory deficit. Moving all extermities. No slurred speech. Course Course Course Narrative: US negative for DVT Abdominal CT pending, UA pending S/o given to Dr. Strong Medical Decision Making Lab Data Result diagrams: 06/04/21 19:49 06/04/21 19:49 Labs: Lab Results 06/04/21 06/04/21 06/04/21 Range/Units 19:49 19:49 19:49 WBC 9.0 (4.8-10.8) X10*3/uL RBC 3.32 L (4.20-5.50) X10*6/uL Hgb 9.4 L (12.0-16.0) g/dl Hct 29.2 L (37.0-47.0) % MCV 88.0 (80.0-98.0) fL MCH 28.3 (27.0-33.0) pg MCHC 32.2 (31.0-35.0) g/dl RDW 14.6 (11.0-16.0) % Plt Count 297 (160-400) X10*3/uL MPV 9.7 (9.4-12.3) fL Immature Gran % (Auto) 0.6 H (0.0-0.4) % Neut % (Auto) 54.3 (45-73) % Lymph % (Auto) 35.6 (20-40) % [place] % (Auto) 8.1 (2-11) % Eos % (Auto) 1.3 (0-4) % Baso % (Auto) 0.1 (0-2) % Lymph # (Auto) 3.2 (1.2-4.9) X10*3/uL [place] # (Auto) 0.7 (0.1-1.2) X10*3/uL Eos # (Auto) 0.1 (0.0-0.4) X10*3/uL Baso # (Auto) 0.0 (0.0-0.2) X10*3/uL Abs Immat Gran (auto) 0.05 H (0.00-0.03) X10*3/uL Absolute Neuts (auto) 4.9 (2.0-8.3) x10*3/uL Absolute Nucleated RBC 0.000 (0.0-0.012) X10*3/uL Nucleated RBC % (auto) 0.0 (0.0-0.2) /100WBC Sodium 141 (135-145) mmol/L Potassium 4.2 (3.3-5.1) mmol/L Chloride 108 (96-108) mmol/L Carbon Dioxide 25 (22-29) mmol/L Anion Gap 12 (12-20) BUN 19 H (9-16) mg/dL Creatinine 0.74 (0.5-1.4) mg/dL Estim Creat Clear Calc 84.1 Estimated GFR > 60 Random Glucose 71 (60-115) mg/dL Calcium 9.1 (8.4-10.2) mg/dL Total Bilirubin 0.2 (0.0-1.0) mg/dL Direct Bilirubin < 0.2 (0.0-0.5) mg/dL AST 19 (5-31) U/L ALT 13 (0-31) U/L Alkaline Phosphatase 57 (39-117) U/L B-Natriuretic Peptide 42 (<100) pg/mL Total Protein 6.4 L (6.5-8.0) g/dL Albumin 3.7 (3.5-5.0) g/dL Imaging Data Venous US: Radiologist's impression: RIGHT: There is normal venous compression and respiratory variation and augmented flow. The visualized common femoral vein, superficial femoral vein, profunda femoral vein, popliteal vein, and the trifurcation region shows no evidence of deep venous thrombosis. ? There is no significant popliteal fossa cyst. LEFT: There is normal venous compression and respiratory variation and augmented flow. The visualized common femoral vein, superficial femoral vein, profunda femoral vein, popliteal vein, and the trifurcation region shows no evidence of deep venous thrombosis. ? There is no significant popliteal fossa cyst. If the patient's symptoms persist, followup ultrasound in 5 days 7 days might be of value to exclude proximal propagation from a non-visualized calf vein. US/US venous duplex LE BI IMPRESSION: No DVT demonstrated in either lower extremity. Discharge Plan Discharge Clinical Impression: Leg edema, Acute flank pain Patient Disposition: Still a Patient Prescriptions: New furosemide [Lasix] 20 mg tablet 10 mg PO BID Qty: 8 RF: 0 No Action cyclobenzaprine 10 mg tablet 10 mg PO TID PRN (Reason: muscle spasm) Qty: 14 RF: 0 prednisone 20 mg tablet 40 mg PO DAILY 5 Days Qty: 10 RF: 0 jtksgwhcjd-qizlttvqjllvb-qocu 50-325-40 mg tablet 1 tab PO Q6H PRN (Reason: pain) Qty: 20 RF: 0 ondansetron 4 mg tablet,disintegrating 4 mg PO Q8H PRN (Reason: nausea and vomiting) Qty: 20 RF: 0 metformin 500 mg tablet extended release 24 hr 1 tab PO BID RF: 0 clonazepam [Klonopin] 1 mg tablet 1 tab PO TID PRN (Reason: Anxiety) RF: 0 venlafaxine 150 mg capsule,extended release 24hr 2 cap PO QAM RF: 0 topiramate 25 mg tablet 1 tab PO BID RF: 0 amlodipine 5 mg tablet 1 tab PO DAILY RF: 0 trazodone 100 mg tablet 3 tab PO BEDTIME RF: 0 lisinopril 30 mg tablet 1 tab PO DAILY RF: 0 gabapentin 300 mg capsule 1 cap PO BEDTIME RF: 0 albuterol sulfate 90 mcg/actuation HFA aerosol inhaler 2 PO Q4-6H PRN (Reason: Wheezing) RF: 0 fluticasone propionate 50 mcg/actuation spray,suspension 1 - 2 spray intranasal DAILY PRN (Reason: Nasal Congestion) RF: 0 Flovent HFA 110 mcg/actuation HFA aerosol inhaler 2 PO BID RF: 0 aripiprazole 20 mg tablet 1 tab PO DAILY RF: 0 hydrochlorothiazide 12.5 mg tablet 1 tab PO DAILY RF: 0 phenazopyridine [Pyridium] 200 mg tablet 200 mg PO TID Qty: 6 RF: 0 prednisone 20 mg tablet 40 mg PO DAILY Qty: 10 RF: 0 hydroxyzine HCl 25 mg tablet 25 mg PO TID PRN (Reason: itching) Qty: 10 RF: 0 cetirizine 10 mg tablet 10 mg PO DAILY Qty: 30 RF: 0 metoclopramide HCl [Reglan] 10 mg tablet 10 mg PO Q6H PRN (Reason: nausea and vomiting) Qty: 30 RF: 0 diphenhydramine HCl [Benadryl] 25 mg capsule 50 mg PO Q6-8H PRN (Reason: sleep) Qty: 14 RF: 0 prednisone 10 mg tablets,dose pack 10 mg PO PER PKG DIR Qty: 48 RF: 0 nitrofurantoin monohyd/m-cryst [Macrobid] 100 mg capsule 100 mg PO Q12H 5 Days Qty: 10 RF: 0 dexamethasone [Decadron] 6 mg tablet 6 mg PO DAILY Qty: 7 RF: 0 codeine-guaifenesin 10-100 mg/5 mL liquid 10 ml PO Q4-6H PRN (Reason: cough) Qty: 237 RF: 0 gabapentin 300 mg capsule 300 mg PO BID Qty: 30 RF: 0 acetaminophen [Tylenol Extra Strength] 500 mg tablet 1,000 mg PO Q6H PRN (Reason: pain) Qty: 30 RF: 0 sennosides [Natural Senna Laxative] 8.6 mg tablet 8.6 mg PO BEDTIME Qty: 30 RF: 3
--- NOTE | 2021-06-04 19:45 | PC.NURSE ---
iv inserted, labs drawn, ivf started, pt medicated for pain, will continue to monitor
[2021-06-04] MEDS: 0.9 % Sodium Chloride 1,000 ML 999 ML IVCONT (19:51)
[2021-06-04] MEDS: traMADoL HCL 50 MG TABLET PO (19:55)
[2021-06-04 19:58] LABS: MANUAL DIFF FLAG NO
[2021-06-04 20:01] LABS: Basophils Percent Auto 0.1 % (0-2); Eosinophils Absolute Auto 0.1 X10*3/uL (0.0-0.4); Eosinophils Percent Auto 1.3 % (0-4); Hematocrit 29.2 % (37.0-47.0); Hemoglobin 9.4 g/dl (12.0-16.0); Imm Gran Abs Auto 0.05 X10*3/uL (0.00-0.03); Imm Gran Pct Auto 0.6 % (0.0-0.4); Lymphocytes Absolute Auto 3.2 X10*3/uL (1.2-4.9); Lymphocytes Percent Auto 35.6 % (20-40); Mean Corpuscular HGB Conc 32.2 g/dl (31.0-35.0); Mean Corpuscular Hemoglobin 28.3 pg (27.0-33.0); Mean Platelet Volume 9.7 fL (9.4-12.3); Monocytes Absolute Auto 0.7 X10*3/uL (0.1-1.2); Monocytes Percent Auto 8.1 % (2-11); Neutrophils Absolute Auto 4.9 x10*3/uL (2.0-8.3); Neutrophils Percent Auto 54.3 % (45-73); Platelet Count 297 X10*3/uL (160-400); Red Blood Count 3.32 X10*6/uL (4.20-5.50); Red Cell Distribution Width 14.6 % (11.0-16.0)
[2021-06-04 20:18] LABS: Alanine Aminotransferase 13 U/L (0-31); Albumin Level 3.7 g/dL (3.5-5.0); Alkaline Phosphatase 57 U/L (39-117); Anion Gap 12 (12-20); Aspartate Amino Transferase 19 U/L (5-31); Bilirubin Direct < 0.2 mg/dL (0.0-0.5); Bilirubin Total 0.2 mg/dL (0.0-1.0); Blood Urea Nitrogen 19 mg/dL (9-16); Calcium 9.1 mg/dL (8.4-10.2); Carbon Dioxide 25 mmol/L (22-29); Chloride 108 mmol/L (96-108); Creatinine Clr Calc Pharmacy 84.1; Estimated Glomerular Filt Rate > 60; Glucose Random 71 mg/dL (60-115); Potassium 4.2 mmol/L (3.3-5.1); Sodium 141 mmol/L (135-145); Total Protein 6.4 g/dL (6.5-8.0)
[2021-06-04 20:21] LABS: B Type Natriuretic Peptide 42 pg/mL (<100)
[2021-06-04 21:08] VITALS: BP 119/75; PULSE 69; RESP 20; TEMP 36.6; O2SAT 99
[2021-06-04 21:29] LABS: Appearance Urine CLEAR; Color Urine YELLOW; Glucose Urine UA NEG (NEG); Leukocyte Esterase Urine NEG (NEG); Nitrite Urine NEG (NEG); Specific Gravity - Urine <= 1.005 (1.005-1.025); Urine Blood NEG (NEG); Urine Ketones NEG (NEG); Urine Protein NEG (NEG-TRACE)
[2021-06-04 21:31] LABS: Amphetamine Screen Urine Not Detected (Not Detect); Barbiturates, Urine Not Detected (Not Detect); Benzodiazepines Screen Urine Not Detected (Not Detect); Cannabinoid Screen Urine Not Detected (Not Detect); Cocaine Screen Urine Not Detected (Not Detect); Fentanyl, urine Not Detected (Not Detect); Opiate Screen Urine Not Detected (Not Detect); Phencyclidine Screen Urine Not Detected (Not Detect)
--- NOTE | 2021-06-04 22:01 | PC.NURSE ---
patient a&ox3, pt continues to c/o 02/18 pain, urine obtained
[2021-06-04] MEDS: Lidocaine 4 % Patch ADH..PATCH 1 PATCH TRANSDERMA (22:27)
== END 2021-06-04 23:10 | disposition home or self-care (01) ==
PROVIDERS: Emergency Medicine; Emergency Provider Student in an Organized Health Care Education/Training Program
DX: R10.9 Unspecified abdominal pain (principal); R60.0 Localized edema; M79.662 Pain in left lower leg; M79.661 Pain in right lower leg; E13.9 Other specified diabetes mellitus without complications; J45.909 Unspecified asthma, uncomplicated
CPT/HCPCS: 36415; 51798; 74176; 80048; 80076; 80307; 81003; 83880; 85025; 93970; 96360; 99284; 99285

== ENCOUNTER → 2021-06-13 12:23 | Outpatient (BNVA) | payer MEDICAID, SELFPAY | PROVIDERS: PCP Internal Medicine; Referring Provider Internal Medicine; Visit Provider Nurse Practitioner Family | DX: K59.04 Chronic idiopathic constipation (principal); K57.90 Diverticulosis of intestine, part unspecified, without perforation or abscess without bleeding; R10.10 Upper abdominal pain, unspecified | CPT/HCPCS: 99212 ==

== ENCOUNTER 2021-06-26 13:05 | Outpatient (REF) | payer MEDICAID, SELFPAY ==
--- NOTE | ~2021-06-26 | MR_ITS ---
EXAMINATION: MR ANGIOGRAPHY BRAIN WITHOUT CONTRAST CLINICAL INFORMATION: 61-year-old with right-sided tinnitus and bilateral sensorineural hearing loss. COMPARISON: 01/03/2021 MRA. TECHNIQUE: 3-D [id number] MR angiography of the intracranial circulation was done with multiplanar reformatted reconstructions. FINDINGS: There is normal flow-related enhancement within the anterior circulation with normal caliber and configuration to the intracranial internal carotid arteries bilaterally stable in appearance from previous exam. Redemonstrated is a hypoplastic right A1 segment with a normal caliber to the left A1 segment and both A2 segments. The anterior communicating artery is unremarkable and unchanged. The M1 segments are normal in caliber and the M2 branches demonstrate normal caliber and configuration. The intradural vertebral arteries demonstrate normal flow-related enhancement and a relatively codominant. The left posterior inferior cerebellar artery is visualized and appears normal in caliber. The basilar artery is normal in caliber and configuration. The posterior cerebral arteries and the superior cerebellar arteries are patent and normal in caliber with a origin of the left NURSING ADMINISTRATOR noted with a hypoplastic left P1 segment, which is an anatomic variant unchanged in appearance. Right posterior communicating artery is not visualized. No intracranial aneurysms or high flow vascular malformations are identified. Note that noncontrast MRA is not sensitive for the detection of dural arteriovenous fistulas. MR/MR angio head wo con IMPRESSION: 1. No intracranial aneurysm or high flow arteriovenous malformation. No interval change from previous study. 2. Consider CT angiography for better assessment to exclude dural arteriovenous fistula if clinically warranted.
== END 2021-06-26 13:06 | disposition home or self-care (01) ==
LOC: HO.MRI 13:05
PROVIDERS: Visit Provider Otolaryngology
DX: H93.11 Tinnitus, right ear (principal)
CPT/HCPCS: 70544

== ENCOUNTER 2021-07-06 14:52 | Outpatient (REF) | payer MEDICAID, SELFPAY ==
--- NOTE | ~2021-07-06 | US_ITS ---
EXAMINATION: US EXTRACRANIAL CAROTID DUPLEX, BILATERAL CLINICAL INFORMATION: Tinnitus right ear COMPARISON: MRA head on 06/26/21 TECHNIQUE: Real-time ultrasound and Doppler techniques (integrating B-mode 2-D vascular images, Doppler spectral analysis and color-flow Doppler imaging) were utilized to interrogate the extracranial carotid arteries, the vertebral arteries and proximal subclavian arteries bilaterally. The degree of stenosis is determined by criteria similar to NASCET. FINDINGS: Right Side: 1. There is no significant atherosclerotic plaque seen in the bifurcation/proximal ICA region. 2. The common carotid artery PSV proximally is 73 cm/s and distally 76 cm/s. 3. The proximal internal carotid artery velocities are 44 cm/s systolic and 10 cm/s diastolic. 4. The proximal external carotid artery PSV is 108 cm/s. 5. The vertebral artery shows antegrade flow. 6. The subclavian artery waveforms are normal. Left Side: 1. There is no significant atherosclerotic plaque seen in the bifurcation/proximal ICA region. 2. The common carotid artery PSV proximally is 117 cm/s and distally 91 cm/s. 3. The proximal internal carotid artery velocities are 46 cm/s systolic and 14 cm/s diastolic. 4. The proximal external carotid artery PSV is 87 cm/s. 5. The vertebral artery shows antegrade flow. 6. The subclavian artery waveforms are normal. US/US carotid duplex BI IMPRESSION: 1. RIGHT: Normal right internal carotid artery without atherosclerotic plaque or hemodynamically significant stenosis. 2. LEFT: Normal left internal carotid artery without atherosclerotic plaque or hemodynamically significant stenosis.
== END 2021-07-06 14:53 | disposition home or self-care (01) ==
LOC: HO.US 14:52
PROVIDERS: PCP Internal Medicine; Visit Provider Otolaryngology
DX: H90.3 Sensorineural hearing loss, bilateral (principal); H93.11 Tinnitus, right ear
CPT/HCPCS: 93880

== ENCOUNTER 2021-07-18 12:49 | Emergency (ER) | payer MEDICAID, SELFPAY ==
--- NOTE | 2021-07-18 | ECG_ITS ---
Test Reason : dizziness Blood Pressure : / mmHG Vent. Rate : 061 BPM Atrial Rate : 061 BPM P-R Int : 196 ms QRS Dur : 100 ms QT Int : 432 ms P-R-T Axes : 060 -20 031 degrees QTc Int : 434 ms Normal sinus rhythm Incomplete right bundle branch block Cannot rule out Anterior infarct (cited on or before 14-MAY-2021) Abnormal ECG When compared with ECG of 23-MAY-2021 23:02, Incomplete right bundle branch block is now Present Questionable change in initial forces of Anteroseptal leads Referred By: Kaden Felton Electronically Signed By:JULIO C FULTON MD
[2021-07-18 13:04] VITALS: BP 128/76; BP 140/87; PULSE 59; PULSE 62; RESP 16; TEMP 36.6; O2SAT 100; O2SAT 98; BMI 31.4
--- NOTE | 2021-07-18 13:37 | ED.HA ---
HPI - Headache General Chief Complaint: Dizziness Stated Complaint: DIZZY,R WEAKNESS,FREEMAN X'S 2 WEEKS PER EMS Time Seen by Provider: 07/18/21 13:19 Source: patient Mode of arrival: EMS Limitations: altered mental status History of Present Illness HPI Narrative: 61-year-old female history of migraines presents emergency room complaining of right-sided headache pain behind her right eye and facial pain for the past day. Patient had MRI and CT scans last year for the same thing. Patient was placed on prednisone by her neurologist with resolution of her symptoms patient was seen here got Reglan Benadryl and Tylenol with resolution of her symptoms as well. Patient was supposed to see a specialist today and was sent here. Patient denies fevers chills neck stiffness nausea vomiting or diarrhea. Patient states she is sleepy. Related Data Home Medications Medication Instructions Recorded Confirmed albuterol sulfate 90 mcg/actuation 2 PO Q4-6H PRN 01/01/21 aerosol inhaler amlodipine 5 mg tablet 1 tab PO DAILY 01/01/21 01/01/21 aripiprazole 20 mg tablet 1 tab PO DAILY 01/01/21 01/01/21 clonazepam 1 mg tablet (Klonopin) 1 tab PO TID PRN 01/01/21 01/01/21 fluticasone propionate 50 1 - 2 spray INTRANASAL DAILY PRN 01/01/21 01/01/21 mcg/actuation nasal spray,suspension gabapentin 300 mg capsule 1 cap PO BEDTIME 01/01/21 01/01/21 hydrochlorothiazide 12.5 mg tablet 1 tab PO DAILY 01/01/21 01/01/21 lisinopril 30 mg tablet 1 tab PO DAILY 01/01/21 01/01/21 metformin 500 mg tablet,extended 1 tab PO BID 01/01/21 01/01/21 release 24 hr trazodone 100 mg tablet 3 tab PO BEDTIME 01/01/21 01/01/21 venlafaxine 150 mg 2 cap PO QAM 01/01/21 01/01/21 capsule,extended release 24 hr amitriptyline 100 mg tablet 100 mg PO BEDTIME 06/13/21 oxycodone-acetaminophen 10 mg-325 1 tab PO 06/13/21 mg tablet Previous Rx's Medication Instructions Recorded acetaminophen 500 mg tablet 1,000 mg PO Q6H PRN #30 tab 05/24/21 (Tylenol Extra Strength) gabapentin 300 mg capsule 300 mg PO BID #30 cap 05/24/21 linaclotide 145 mcg capsule 145 mcg PO DAILY #30 cap 06/13/21 (Linzess) methylcellulose (laxative) 500 mg 500 mg PO DAILY #30 tab 06/13/21 tablet (Citrucel) Allergies Allergy/AdvReac Type Severity Reaction Status Date / Time morphine [MORPHINE] Allergy Intermediate PALPITATIONS, Verified 06/13/21 12:28 tachicardia quetiapine [Seroquel] Allergy Unknown Unknown Verified 06/13/21 12:28 orphenadrine [ORPHENADRINE] AdvReac Intermediate RAPID Verified 06/13/21 12:28 HEART RATE Review of Systems Review of Systems: Review of systems: General: Patient denies any fever chills recent illness or falls Musculoskeletal: Denies back pain or body aches or other injuries HEENT: denies headache, runny nose, ear pain Respiratory: denies shortness of breath, cough Cardiovascular: no chest pain or palpitations : denies dysuria, frequency Abdomen: no nausea vomiting denies abdominal pain Extremities: no swelling, no pain Skin: no diaphoresis Yes all other systems are reviewed and are negative PMFSH Past Medical History Medical History Anxiety Asthma Chronic idiopathic constipation Depression Diabetes 1.5, managed as type 2 Diverticulosis Fibromyalgia Migraine Surgical History Gastric bypass status for obesity H/O colonoscopy History of pubovaginal sling Hx of bilateral breast reduction surgery Hx of oophorectomy Social History Social History Alcohol intake: current Alcohol intake frequency: does not drink Patient Tobacco Use Status: Never used Tobacco Use of substances other than those prescribed or required for medical reasons: No Advance Directives: No Patient : No Gender identity: Female Physical Exam Vital Signs: Vital Signs: Last Vital Signs Temp 97.8 F 07/18/21 13:04 Pulse 68 07/18/21 14:04 Resp 17 07/18/21 14:04 BP 158/89 H 07/18/21 14:04 Pulse Ox 99 07/18/21 14:04 BMI result Body Mass Index 31.4 Neurological exam: CN II- XII tested. Patient is alert and oriented to person place and time. Patient has no dysphagia or dysarthia, denies good vision in all four vision castro no nystagmus on exam, good strength to upper and lower extremities with normal reflexes to brachioradialis, wrist, patella and achilles. Negative romberg, good finger to nose and heel to rosenberg. General: Well-appearing well-nourished in no signs of distress HEENT: Normocephalic atraumatic Neck: No signs of JVD, no masses no tenderness or lymphadenopathy Cardiovascular: Regular rate and rhythm Respiratory: Clear to auscultation bilaterally Abdomen: Soft nontender no masses Extremities: Normal pedal pulses no signs of edema Skin: Dry warm no rashes Back: No tenderness full ROM MDM - Headache MDM Narrative Medical decision making narrative: Migraine patient's history migraine sounds exactly like her previous migraines she is a very poor historian and states this is different some weight but review of her records shows that this exam is a previous headaches she has not taken anything for her headaches and has not followed up with a neurologist for long time. Patient did have MRI and CT scans last year. I will treat the patient with Reglan Benadryl and Decadron as well as Tylenol. Patient was placed on prednisone by her neurologist in the past. 1434 patient is not feeling better patient did tolerate orally I will discharge the patient home. Per the daughter who is not in the room states that she has been not eating or drinking much I feel comfortable seeing the patient on patients have a planned follow-up with her doctor. ECG Data Attestation: I personally reviewed and interpreted this ECG as follows: ECG interpretation date: 07/18/21 ECG interpretation time: 13:37 Prior ECG tracings: not available for review Interpretation: Rate 61 normal size with normal overall as QTC is 432. Discharge Plan Discharge Clinical Impression: Migraine Patient Disposition: Home, Self-Care Instructions: Migraine Headache (ED) Additional Instructions: Please remember to eat and drink sufficiently if you have any other concerns please do not hesitate to come back to the emergency department. Prescriptions: No Action metformin 500 mg tablet extended release 24 hr 1 tab PO BID 0RF clonazepam [Klonopin] 1 mg tablet 1 tab PO TID PRN (Reason: Anxiety) 0RF venlafaxine 150 mg capsule,extended release 24hr 2 cap PO QAM 0RF amlodipine 5 mg tablet 1 tab PO DAILY 0RF trazodone 100 mg tablet 3 tab PO BEDTIME 0RF lisinopril 30 mg tablet 1 tab PO DAILY 0RF gabapentin 300 mg capsule 1 cap PO BEDTIME 0RF albuterol sulfate 90 mcg/actuation HFA aerosol inhaler 2 PO Q4-6H PRN (Reason: Wheezing) 0RF fluticasone propionate 50 mcg/actuation spray,suspension 1 - 2 spray intranasal DAILY PRN (Reason: Nasal Congestion) 0RF aripiprazole 20 mg tablet 1 tab PO DAILY 0RF hydrochlorothiazide 12.5 mg tablet 1 tab PO DAILY 0RF gabapentin 300 mg capsule 300 mg PO BID Qty: 30 0RF acetaminophen [Tylenol Extra Strength] 500 mg tablet 1,000 mg PO Q6H PRN (Reason: pain) Qty: 30 0RF oxycodone-acetaminophen 10-325 mg tablet 1 tab PO 0RF amitriptyline 100 mg tablet 100 mg PO BEDTIME 0RF Linzess 145 mcg capsule 145 mcg PO DAILY Qty: 30 2RF Citrucel 500 mg tablet 500 mg PO DAILY Qty: 30 2RF Rx Instructions: take it with full glass of water
[2021-07-18] MEDS: dexAMETHasone sod phosphate 10 MG/ML VIAL IVPUSH (13:59)
[2021-07-18] MEDS: 0.9 % Sodium Chloride 1,000 ML 999 ML IV (13:59)
[2021-07-18] MEDS: diphenhydrAMINE HCL 50 MG/ML VIAL 25 MG IVPUSH (13:59)
[2021-07-18] MEDS: Metoclopramide HCl 10 MG/2 ML VIAL IVPUSH (13:59)
[2021-07-18] MEDS: Acetaminophen 325 MG TABLET 975 MG PO (13:59)
[2021-07-18 14:04] VITALS: BP 158/89; PULSE 68; RESP 17; O2SAT 99
== END 2021-07-18 15:05 | disposition home or self-care (01) ==
PROVIDERS: Emergency Provider Student in an Organized Health Care Education/Training Program
DX: G43.909 Migraine, unspecified, not intractable, without status migrainosus (principal); R42 Dizziness and giddiness; Z79.899 Other long term (current) drug therapy
CPT/HCPCS: 93005; 96361; 96374; 96375; 99284; 99285; J1100; J1200; J2765

== ENCOUNTER 2021-08-10 22:21 | Emergency (ER) | payer MEDICAID, SELFPAY ==
--- NOTE | ~2021-08-10 | XR_ITS ---
EXAMINATION: XR FOOT, LEFT CLINICAL INFORMATION: Great toe swelling. COMPARISON: None TECHNIQUE: AP, lateral, and oblique views of the left foot. XR/XR foot LT 2V FINDINGS/IMPRESSION: There is a minimally displaced acute fracture involving the lateral base of the great toe distal phalanx without intra-articular extension. No additional acute fractures. Small tibiotalar marginal osteophytes. Small plantar posterior calcaneal enthesophytes.
[2021-08-11 00:08] VITALS: BP 139/80; PULSE 70; RESP 16; TEMP 36.5; O2SAT 100; BMI 26.8
--- NOTE | 2021-08-11 05:13 | ED.GENADULT ---
HPI - General Adult General Chief complaint: General Medical Stated complaint: Toe pain and swelling Time Seen by Provider: 08/11/21 05:11 Source: patient Mode of arrival: ambulatory History of Present Illness HPI narrative: 61-year-old female diabetic, fibromyalgia, depression, asthma presents with left great toe swelling, redness, warmth and patient reports subjective fevers and chills. She states that approximately 1 week ago after leaving [employer] she noticed that her left great toe is discolored but otherwise denies any traumatic injury to her knowledge to include no skin breaks. Related Data Home Medications Medication Instructions Recorded Confirmed albuterol sulfate 90 mcg/actuation 2 PO Q4-6H PRN 01/01/21 aerosol inhaler amlodipine 5 mg tablet 1 tab PO DAILY 01/01/21 01/01/21 aripiprazole 20 mg tablet 1 tab PO DAILY 01/01/21 01/01/21 clonazepam 1 mg tablet (Klonopin) 1 tab PO TID PRN 01/01/21 01/01/21 fluticasone propionate 50 1 - 2 spray INTRANASAL DAILY PRN 01/01/21 01/01/21 mcg/actuation nasal spray,suspension gabapentin 300 mg capsule 1 cap PO BEDTIME 01/01/21 01/01/21 hydrochlorothiazide 12.5 mg tablet 1 tab PO DAILY 01/01/21 01/01/21 lisinopril 30 mg tablet 1 tab PO DAILY 01/01/21 01/01/21 metformin 500 mg tablet,extended 1 tab PO BID 01/01/21 01/01/21 release 24 hr trazodone 100 mg tablet 3 tab PO BEDTIME 01/01/21 01/01/21 venlafaxine 150 mg 2 cap PO QAM 01/01/21 01/01/21 capsule,extended release 24 hr amitriptyline 100 mg tablet 100 mg PO BEDTIME 06/13/21 oxycodone-acetaminophen 10 mg-325 1 tab PO 06/13/21 mg tablet Previous Rx's Medication Instructions Recorded acetaminophen 500 mg tablet 1,000 mg PO Q6H PRN #30 tab 05/24/21 (Tylenol Extra Strength) gabapentin 300 mg capsule 300 mg PO BID #30 cap 05/24/21 linaclotide 145 mcg capsule 145 mcg PO DAILY #30 cap 06/13/21 (Linzess) methylcellulose (laxative) 500 mg 500 mg PO DAILY #30 tab 02/02/22 tablet (Citrucel) Allergies Allergy/AdvReac Type Severity Reaction Status Date / Time morphine [MORPHINE] Allergy Intermediate PALPITATIONS, Verified 06/13/21 12:28 tachicardia quetiapine [Seroquel] Allergy Unknown Unknown Verified 06/13/21 12:28 orphenadrine [ORPHENADRINE] AdvReac Intermediate RAPID Verified 06/13/21 12:28 HEART RATE Review of Systems Review of Systems: Pertinent positives and negatives as stated in HPI 10 point review of systems is otherwise negative. [facility] Past Medical History Source: nursing notes reviewed Medical History Anxiety Asthma Chronic idiopathic constipation Depression Diabetes 1.5, managed as type 2 Diverticulosis Fibromyalgia Migraine Surgical History Gastric bypass status for obesity H/O colonoscopy History of pubovaginal sling Hx of bilateral breast reduction surgery Hx of oophorectomy Social History Social History Alcohol intake: never Patient Tobacco Use Status: Never used Tobacco Use of substances other than those prescribed or required for medical reasons: No Advance Directives: No Advance Directives Information Provided: No Gender identity: Female Physical Exam ED Vital Signs: Vital Signs - 24 hr 08/11/21 00:08 08/11/21 05:20 08/11/21 06:17 Temperature 97.7 F Pulse Rate 70 64 63 Respiratory Rate 16 18 20 Blood Pressure 139/80 135/70 125/73 Pulse Oximetry 100 100 100 BMI result Body Mass Index 26.8 VITAL SIGNS: Reviewed. GENERAL: Well developed, well nourished, in no acute distress. HEAD: Normocephalic/atraumatic EYES: PERRLA, EOMI EARS: Ext canals without abnormality OROPHARYNX: no oral lesions noted, posterior pharynx clear LUNGS: Normal breath sounds. No adventitious sounds or accessory muscle use. SpO2<100> CARDIOVASCULAR: Regular rate and rhythm without noted murmurs, no JVD or lower extremity edema. ABDOMEN: Soft, non-tender, non-distended with bowel sounds. MUSCULOSKELETAL: No tenderness, deformities, or effusions noted on gross inspection. EXTREMITIES: No cyanosis, clubbing or edema; LEFT GREAT TOE: There is noted significant swelling, erythema, warmth to the toe without obvious abscess and no history of gout, palpable DP/PT with good capillary refill SKIN: Inspection of the skin reveals no rashes NEUROLOGIC: Alert and oriented x 4. Strength and sensation to light touch were grossly intact x 4. Course Course Course Narrative: 61-year-old female with history and clinical presentation consistent with infection of the left great toe especially given patient's history of diabetes and doubt gout. Review of all investigations consistent with fracture of the toe. All results shared with the patient at bedside, she was placed in a postop shoe and on re-evaluation his pain has improved. Medical Decision Making Lab Data Result diagrams: 08/11/21 05:29 08/11/21 05:29 Labs: Lab Results 08/11/21 08/11/21 08/11/21 Range/Units 05:29 05:29 05:29 WBC 7.3 (4.8-10.8) X10*3/uL RBC 3.88 L (4.20-5.50) X10*6/uL Hgb 10.6 L (12.0-16.0) g/dl Hct 33.9 L (37.0-47.0) % MCV 87.4 (80.0-98.0) fL MCH 27.3 (27.0-33.0) pg MCHC 31.3 (31.0-35.0) g/dl RDW 14.0 (11.0-16.0) % Plt Count 236 (160-400) X10*3/uL MPV 10.4 (9.4-12.3) fL Immature Gran % (Auto) 0.4 (0.0-0.4) % Neut % (Auto) 59.1 (45-73) % Lymph % (Auto) 28.1 (20-40) % [place] % (Auto) 10.4 (2-11) % Eos % (Auto) 1.9 (0-4) % Baso % (Auto) 0.1 (0-2) % Lymph # (Auto) 2.1 (1.2-4.9) X10*3/uL [place] # (Auto) 0.8 (0.1-1.2) X10*3/uL Eos # (Auto) 0.1 (0.0-0.4) X10*3/uL Baso # (Auto) 0.0 (0.0-0.2) X10*3/uL Abs Immat Gran (auto) 0.03 (0.00-0.03) X10*3/uL Absolute Neuts (auto) 4.3 (2.0-8.3) x10*3/uL Absolute Nucleated RBC 0.000 (0.0-0.012) X10*3/uL Nucleated RBC % (auto) 0.0 (0.0-0.2) /100WBC Sodium 138 (135-145) mmol/L Potassium 4.4 (3.3-5.1) mmol/L Chloride 103 (96-108) mmol/L Carbon Dioxide 27 (22-29) mmol/L Anion Gap 12 (12-20) BUN 21 H (9-16) mg/dL Creatinine 0.84 (0.5-1.4) mg/dL Estim Creat Clear Calc 72.2 Estimated GFR > 60 Random Glucose 87 (60-115) mg/dL Lactic Acid 1.0 (0.5-2.0) mmol/L Calcium 9.1 (8.4-10.2) mg/dL Total Bilirubin 0.3 (0.0-1.0) mg/dL AST 21 (5-31) U/L ALT 21 (0-31) U/L Alkaline Phosphatase 64 (39-117) U/L C-Reactive Protein 0.31 (< or = 0.50) mg/dL Total Protein 7.1 (6.5-8.0) g/dL Albumin 4.1 (3.5-5.0) g/dL Discharge Plan Discharge Clinical Impression: Closed fracture of left great toe Patient Disposition: Home, Self-Care Instructions: Toe Fracture (ED) Additional Instructions: 1. Tylenol 1000 mg, orally, every 6 hours as needed for pain control. Do not exceed 4000 mg within 24 hours. 2. Keep foot elevated when possible and apply ice to unexposed skin for 10-15 minutes, 3 to 4 times a day. 3. Please follow-up with your primary care provider on Friday morning for re-evaluation. Return to the ER for worsening symptoms. Prescriptions: No Action metformin 500 mg tablet extended release 24 hr 1 tab PO BID 0RF clonazepam [Klonopin] 1 mg tablet 1 tab PO TID PRN (Reason: Anxiety) 0RF venlafaxine 150 mg capsule,extended release 24hr 2 cap PO QAM 0RF amlodipine 5 mg tablet 1 tab PO DAILY 0RF trazodone 100 mg tablet 3 tab PO BEDTIME 0RF lisinopril 30 mg tablet 1 tab PO DAILY 0RF gabapentin 300 mg capsule 1 cap PO BEDTIME 0RF albuterol sulfate 90 mcg/actuation HFA aerosol inhaler 2 PO Q4-6H PRN (Reason: Wheezing) 0RF fluticasone propionate 50 mcg/actuation spray,suspension 1 - 2 spray intranasal DAILY PRN (Reason: Nasal Congestion) 0RF aripiprazole 20 mg tablet 1 tab PO DAILY 0RF hydrochlorothiazide 12.5 mg tablet 1 tab PO DAILY 0RF gabapentin 300 mg capsule 300 mg PO BID Qty: 30 0RF acetaminophen [Tylenol Extra Strength] 500 mg tablet 1,000 mg PO Q6H PRN (Reason: pain) Qty: 30 0RF oxycodone-acetaminophen 10-325 mg tablet 1 tab PO 0RF amitriptyline 100 mg tablet 100 mg PO BEDTIME 0RF Linzess 145 mcg capsule 145 mcg PO DAILY Qty: 30 2RF Citrucel 500 mg tablet 500 mg PO DAILY Qty: 30 2RF Rx Instructions: take it with full glass of water Referrals: Elizabeth Dunn MD [Primary Care Provider] - 2 days (Left great toe fracture)
[2021-08-11 05:20] VITALS: BP 135/70; PULSE 64; RESP 18; O2SAT 100
[2021-08-11 05:39] LABS: Basophils Percent Auto 0.1 % (0-2); Eosinophils Absolute Auto 0.1 X10*3/uL (0.0-0.4); Eosinophils Percent Auto 1.9 % (0-4); Hematocrit 33.9 % (37.0-47.0); Hemoglobin 10.6 g/dl (12.0-16.0); Imm Gran Abs Auto 0.03 X10*3/uL (0.00-0.03); Imm Gran Pct Auto 0.4 % (0.0-0.4); Lymphocytes Absolute Auto 2.1 X10*3/uL (1.2-4.9); Lymphocytes Percent Auto 28.1 % (20-40); MANUAL DIFF FLAG NO; Mean Corpuscular HGB Conc 31.3 g/dl (31.0-35.0); Mean Corpuscular Hemoglobin 27.3 pg (27.0-33.0); Mean Corpuscular Volume 87.4 fL (80.0-98.0); Mean Platelet Volume 10.4 fL (9.4-12.3); Monocytes Absolute Auto 0.8 X10*3/uL (0.1-1.2); Monocytes Percent Auto 10.4 % (2-11); Neutrophils Absolute Auto 4.3 x10*3/uL (2.0-8.3); Neutrophils Percent Auto 59.1 % (45-73); Platelet Count 236 X10*3/uL (160-400); Red Blood Count 3.88 X10*6/uL (4.20-5.50); White Blood Count 7.3 X10*3/uL (4.8-10.8)
[2021-08-11] MEDS: Ketorolac Tromethamine 30 MG/ML VIAL 15 MG IVPUSH (05:43)
[2021-08-11] MEDS: Acetaminophen 325 MG TABLET 975 MG PO (05:43)
[2021-08-11 05:58] LABS: Alanine Aminotransferase 21 U/L (0-31); Albumin Level 4.1 g/dL (3.5-5.0); Alkaline Phosphatase 64 U/L (39-117); Anion Gap 12 (12-20); Aspartate Amino Transferase 21 U/L (5-31); Bilirubin Total 0.3 mg/dL (0.0-1.0); Blood Urea Nitrogen 21 mg/dL (9-16); C Reactive Protein 0.31 mg/dL (< or = 0.50); Calcium 9.1 mg/dL (8.4-10.2); Carbon Dioxide 27 mmol/L (22-29); Chloride 103 mmol/L (96-108); Creatinine Clr Calc Pharmacy 72.2; Estimated Glomerular Filt Rate > 60; Glucose Random 87 mg/dL (60-115); Potassium 4.4 mmol/L (3.3-5.1); Sodium 138 mmol/L (135-145); Total Protein 7.1 g/dL (6.5-8.0)
[2021-08-11 06:17] VITALS: BP 125/73; PULSE 63; RESP 20; O2SAT 100
--- NOTE | 2021-08-11 06:34 | PC.NURSE ---
I assumed nursing care of Lelo on her arrival to bed 6 from the waiting room. She presents for evaluation of L foot redness/pain/swelling x 2-3 days. She is alert, oriented x 3, calm and cooperative and makes eye contact with RN. Respirations are non-labored, speech clear and appropriate, room air sat's WNL, RR WNL. There is obvious redness and mild swelling noted to left foot, mostly in the area of her L great toe. She denies any injury. She denies Hx of these symptoms. IV access/labs have been obtained. Pt has been administered ordered Tylenol and Toradol, Xray has been obtained of LLE and the pt is awaiting MD dispo. She verbalizes an understanding of this. Will continue to monitor Lelo.
== END 2021-08-11 07:42 | disposition home or self-care (01) ==
PROVIDERS: Emergency Provider Student in an Organized Health Care Education/Training Program; PCP Internal Medicine
DX: S92.422A Displaced fracture of distal phalanx of left great toe, initial encounter for closed fracture (principal); X58.XXXA Exposure to other specified factors, initial encounter; E13.9 Other specified diabetes mellitus without complications; Y93.9 Activity, unspecified; Y92.9 Unspecified place or not applicable; Y99.9 Unspecified external cause status
CPT/HCPCS: 36415; 73620; 80053; 83605; 85025; 86140; 87040; 96374; 99284; J1885

== ENCOUNTER 2021-09-03 08:36 | Outpatient (REF) | payer MEDICAID, SELFPAY ==
--- NOTE | ~2021-09-03 | XR_ITS ---
EXAMINATION: XR FOOT, LEFT CLINICAL INFORMATION: Left foot pain. COMPARISON: 08/11/2021 TECHNIQUE: 3 views of the left foot. FINDINGS: There is osteopenia of visualized bones. There is again noted to be some interval healing of a nondisplaced fracture base of the 1st distal phalanx. No new fractures appreciated. Calcaneal spurs at sites of insertion of the Achilles and plantar tendons evident. XR/XR foot LT min 3V IMPRESSION: Evidence for some degree of healing without change in alignment of fracture base of the 1st distal phalanx. Diffuse osteopenia. Calcaneal spurs.
== END 2021-09-03 08:37 | disposition home or self-care (01) ==
LOC: HO.HOSX 08:36
PROVIDERS: Visit Provider Physician Assistant
DX: M79.605 Pain in left leg (principal); S92.402A Displaced unspecified fracture of left great toe, initial encounter for closed fracture
CPT/HCPCS: 73630; 99202

== ENCOUNTER → 2021-09-05 12:47 | Outpatient (BNVA) | payer MEDICAID, SELFPAY | PROVIDERS: PCP Internal Medicine; Referring Provider Internal Medicine; Visit Provider Nurse Practitioner Family | DX: K59.04 Chronic idiopathic constipation (principal); K57.90 Diverticulosis of intestine, part unspecified, without perforation or abscess without bleeding; Z79.899 Other long term (current) drug therapy | CPT/HCPCS: 99212 ==

== ENCOUNTER 2021-10-21 16:45 | Emergency (ER) | payer MEDICAID, SELFPAY ==
[2021-10-21 16:50] VITALS: BP 125/69; PULSE 79; RESP 20; TEMP 36; O2SAT 100; BMI 26.6
[2021-10-21 17:12] LABS: MANUAL DIFF FLAG NO
[2021-10-21 17:13] LABS: Appearance Urine CLEAR; Color Urine YELLOW; Glucose Urine UA NEG (NEG); Leukocyte Esterase Urine NEG (NEG); Nitrite Urine NEG (NEG); PH 5.5 (5.0-8.0); Specific Gravity - Urine >= 1.030 (1.005-1.025); Urine Blood NEG (NEG); Urine Ketones 5 MG/DL (NEG); Urine Protein NEG (NEG-TRACE)
[2021-10-21 17:14] LABS: Basophils Percent Auto 0.3 % (0-2); Eosinophils Absolute Auto 0.2 X10*3/uL (0.0-0.4); Eosinophils Percent Auto 2.3 % (0-4); Hematocrit 34.4 % (37.0-47.0); Hemoglobin 10.9 g/dl (12.0-16.0); Imm Gran Abs Auto 0.04 X10*3/uL (0.00-0.03); Imm Gran Pct Auto 0.5 % (0.0-0.4); Lymphocytes Absolute Auto 2.5 X10*3/uL (1.2-4.9); Lymphocytes Percent Auto 31.9 % (20-40); Mean Corpuscular HGB Conc 31.7 g/dl (31.0-35.0); Mean Corpuscular Hemoglobin 27.5 pg (27.0-33.0); Mean Corpuscular Volume 86.9 fL (80.0-98.0); Monocytes Absolute Auto 0.6 X10*3/uL (0.1-1.2); Monocytes Percent Auto 7.2 % (2-11); Neutrophils Absolute Auto 4.6 x10*3/uL (2.0-8.3); Neutrophils Percent Auto 57.8 % (45-73); Platelet Count 254 X10*3/uL (160-400); Red Blood Count 3.96 X10*6/uL (4.20-5.50); Red Cell Distribution Width 15.2 % (11.0-16.0); White Blood Count 7.9 X10*3/uL (4.8-10.8)
[2021-10-21 17:20] LABS: Amorphous Sediment Urine TRACE /LPF; Bacteria Urine TRACE /LPF; RBC Urine 0-2 /HPF (0); Squamous Epithelial Cell Urine 1+ /LPF
[2021-10-21 17:27] LABS: Anion Gap 14 (12-20); Blood Urea Nitrogen 23 mg/dL (9-16); Carbon Dioxide 24 mmol/L (22-29); Chloride 107 mmol/L (96-108); Creatinine Clr Calc Pharmacy 54.9; Estimated Glomerular Filt Rate 51; Glucose Random 107 mg/dL (60-115); Potassium 4.3 mmol/L (3.3-5.1); Sodium 141 mmol/L (135-145)
[2021-10-21 19:59] VITALS: BP 123/74; PULSE 67; RESP 18; TEMP 36.6; O2SAT 99
--- NOTE | 2021-10-21 21:01 | ED.FEMALEGU ---
HPI - Female Genitourinary General Chief complaint: Urogenital-Female Stated complaint: Trouble Urinating Swollen Feet Time Seen by Provider: 10/21/21 21:01 Source: patient Mode of arrival: ambulatory Limitations: no limitations History of Present Illness HPI Narrative: Patient has history of fibromyalgia multiple complaints been to ER multiple times for leg swellings previous BNP was normal complaining of increased swelling of the legs specially in the evening no shortness of breath also complaining of difficulty urination without any pain or fever or chills no nausea no vomiting no chest pain Related Data Home Medications Medication Instructions Recorded Confirmed albuterol sulfate 90 mcg/actuation 2 PO Q4-6H PRN Wheezing 01/01/21 09/03/21 aerosol inhaler amlodipine 5 mg tablet 1 tab PO DAILY 01/01/21 09/03/21 aripiprazole 20 mg tablet 1 tab PO DAILY 01/01/21 09/03/21 clonazepam 1 mg tablet (Klonopin) 1 tab PO TID PRN Anxiety 01/01/21 09/03/21 fluticasone propionate 50 1 - 2 spray intranasal DAILY PRN 01/01/21 09/03/21 mcg/actuation nasal Nasal Congestion spray,suspension gabapentin 300 mg capsule 1 cap PO BEDTIME 01/01/21 09/03/21 hydrochlorothiazide 12.5 mg tablet 1 tab PO DAILY 01/01/21 09/03/21 lisinopril 30 mg tablet 1 tab PO DAILY 01/01/21 09/03/21 metformin 500 mg tablet,extended 1 tab PO BID 01/01/21 09/03/21 release 24 hr trazodone 100 mg tablet 3 tab PO BEDTIME 01/01/21 09/03/21 venlafaxine 150 mg 2 cap PO QAM 01/01/21 09/03/21 capsule,extended release 24 hr oxycodone-acetaminophen 10 mg-325 1 tab PO 06/13/21 09/03/21 mg tablet Previous Rx's Medication Instructions Recorded acetaminophen 500 mg tablet 1,000 mg PO Q6H PRN pain #30 tabs 05/24/21 (Tylenol Extra Strength) gabapentin 300 mg capsule 300 mg PO BID #30 caps 05/24/21 docusate sodium 100 mg capsule 100 mg PO BEDTIME #90 caps 09/05/21 linaclotide 290 mcg capsule 290 mcg PO QAM #30 caps 09/05/21 (Linzescatracho) hydrochlorothiazide 25 mg tablet 25 mg PO QAM #30 tabs 10/21/21 oxycodone 5 mg tablet 5 mg PO Q6H PRN Pain (Scale Score 10/21/21 7-10) #20 tabs Allergies Allergy/AdvReac Type Severity Reaction Status Date / Time morphine [MORPHINE] Allergy Intermediate PALPITATIONS, Verified 09/05/21 12:54 tachicardia quetiapine [Seroquel] Allergy Unknown Unknown Verified 09/05/21 12:54 orphenadrine [ORPHENADRINE] AdvReac Intermediate RAPID Verified 09/05/21 12:54 HEART RATE Review of Systems Review of Systems: Yes all other systems are reviewed and are negative PMFSH Past Medical History Medical History Anxiety Asthma Chronic idiopathic constipation Depression Diabetes 1.5, managed as type 2 Diverticulosis Fibromyalgia Migraine Surgical History Gastric bypass status for obesity H/O colonoscopy History of pubovaginal sling Hx of bilateral breast reduction surgery Hx of oophorectomy Social History Social History Alcohol intake: never Patient Tobacco Use Status: Never used Tobacco Advance Directives: No Gender identity: Female Physical Exam Vital Signs: Vital Signs: Last Vital Signs Temp 98 F 10/21/21 19:59 Pulse 67 10/21/21 19:59 Resp 18 10/21/21 19:59 BP 123/74 10/21/21 19:59 Pulse Ox 99 10/21/21 19:59 O2 Del Method 10/21/21 19:59 BMI result Body Mass Index 26.6 Appearance: Alert. Oriented X3. No acute distress. Eyes: PERRLA, No Nystagmus ENT: Pharynx normal. Oral Mucosa moist Neck: Normal inspection. Neck supple. CVS: Normal heart rate and rhythm. Pulses normal. Respiratory: No respiratory distress. Equal air entry bilateral, no wheezing/rales/rhonchi Abdomen: Soft and nontender. Bowel sounds are present, no mass palpable, no CVA tenderness Skin: Skin warm and dry. Normal skin color. Normal skin turgor. Extremities: 2+ pitting lower extremity edema. No calf tenderness left sciatic notch tenderness Neuro: Oriented X 3. No motor deficit. No sensory deficit.No cerebellar signs , cranial nerves II-XII intact MDM - Female Genitourinary MDM Narrative Medical decision making narrative: Patient dependent leg edema lungs clear discharge patient home on hydrochlorothiazide and oxycodone for the pain Lab Data Attestation: I reviewed the patient's lab results. Result diagrams: 10/21/21 17:07 10/21/21 17:07 Labs: Lab Results 10/21/21 10/21/21 10/21/21 Range/Units 17:07 17:07 17:07 WBC 7.9 (4.8-10.8) X10*3/uL RBC 3.96 L (4.20-5.50) X10*6/uL Hgb 10.9 L (12.0-16.0) g/dl Hct 34.4 L (37.0-47.0) % MCV 86.9 (80.0-98.0) fL MCH 27.5 (27.0-33.0) pg MCHC 31.7 (31.0-35.0) g/dl RDW 15.2 (11.0-16.0) % Plt Count 254 (160-400) X10*3/uL MPV 10.0 (9.4-12.3) fL Immature Gran % (Auto) 0.5 H (0.0-0.4) % Neut % (Auto) 57.8 (45-73) % Lymph % (Auto) 31.9 (20-40) % [place] % (Auto) 7.2 (2-11) % Eos % (Auto) 2.3 (0-4) % Baso % (Auto) 0.3 (0-2) % Lymph # (Auto) 2.5 (1.2-4.9) X10*3/uL [place] # (Auto) 0.6 (0.1-1.2) X10*3/uL Eos # (Auto) 0.2 (0.0-0.4) X10*3/uL Baso # (Auto) 0.0 (0.0-0.2) X10*3/uL Abs Immat Gran (auto) 0.04 H (0.00-0.03) X10*3/uL Absolute Neuts (auto) 4.6 (2.0-8.3) x10*3/uL Absolute Nucleated RBC 0.000 (0.0-0.012) X10*3/uL Nucleated RBC % (auto) 0.0 (0.0-0.2) /100WBC Sodium 141 (135-145) mmol/L Potassium 4.3 (3.3-5.1) mmol/L Chloride 107 (96-108) mmol/L Carbon Dioxide 24 (22-29) mmol/L Anion Gap 14 (12-20) BUN 23 H (9-16) mg/dL Creatinine 1.10 (0.5-1.4) mg/dL Estim Creat Clear Calc 54.9 Estimated GFR 51 Random Glucose 107 (60-115) mg/dL Calcium 9.0 (8.4-10.2) mg/dL Urine Color YELLOW Urine Appearance CLEAR Urine pH 5.5 (5.0-8.0) Ur Specific [place] >= 1.030 H (1.005-1.025) Urine Protein NEG (NEG-TRACE) MG/DL Urine Glucose (UA) NEG (NEG) MG/DL Urine Ketones 5 (NEG) MG/DL Urine Blood NEG (NEG) Urine Nitrite NEG (NEG) Ur Leukocyte Esterase NEG (NEG) Urine RBC 0-2 (0) /HPF Urine WBC 1-4 (0-4) /HPF Ur Squamous Epith Cells 1+ /LPF Amorphous Sediment TRACE /LPF Urine Bacteria TRACE /LPF Discharge Plan Discharge Clinical Impression: Edema, Sciatica of left side Patient Disposition: Home, Self-Care Instructions: Sciatica (ED), Leg Edema (ED) Additional Instructions: Take pain medications prescribed Water pill every day in the morning for leg swelling Keep your leg elevated Follow with PCP Prescriptions: New oxycodone 5 mg tablet 5 mg PO Q6H PRN (Reason: Pain (Scale Score 7-10)) Qty: 20 0RF Rx Instructions: Partial Fill upon patient request. hydrochlorothiazide 25 mg tablet 25 mg PO QAM Qty: 30 0RF No Action metformin 500 mg tablet extended release 24 hr 1 tab PO BID clonazepam [Klonopin] 1 mg tablet 1 tab PO TID PRN (Reason: Anxiety) venlafaxine 150 mg capsule,extended release 24hr 2 cap PO QAM amlodipine 5 mg tablet 1 tab PO DAILY trazodone 100 mg tablet 3 tab PO BEDTIME lisinopril 30 mg tablet 1 tab PO DAILY gabapentin 300 mg capsule 1 cap PO BEDTIME albuterol sulfate 90 mcg/actuation HFA aerosol inhaler 2 PO Q4-6H PRN (Reason: Wheezing) fluticasone propionate 50 mcg/actuation spray,suspension 1 - 2 spray intranasal DAILY PRN (Reason: Nasal Congestion) aripiprazole 20 mg tablet 1 tab PO DAILY hydrochlorothiazide 12.5 mg tablet 1 tab PO DAILY gabapentin 300 mg capsule 300 mg PO BID Qty: 30 0RF acetaminophen [Tylenol Extra Strength] 500 mg tablet 1,000 mg PO Q6H PRN (Reason: pain) Qty: 30 0RF oxycodone-acetaminophen 10-325 mg tablet 1 tab PO docusate sodium 100 mg capsule 100 mg PO BEDTIME Qty: 90 3RF Linzess 290 mcg capsule 290 mcg PO QAM Qty: 30 4RF
[2021-10-21 21:27] VITALS: BP 128/66; PULSE 78; RESP 18; TEMP 36.6; O2SAT 99
[2021-10-21] MEDS: oxyCODONE HCl Immed Release 5 MG TABLET PO (21:36)
== END 2021-10-21 21:40 | disposition home or self-care (01) ==
PROVIDERS: Emergency Provider Internal Medicine; PCP Internal Medicine
DX: R60.0 Localized edema (principal); M54.32 Sciatica, left side; E13.9 Other specified diabetes mellitus without complications; J45.909 Unspecified asthma, uncomplicated
CPT/HCPCS: 36415; 80048; 81001; 85025; 99283; 99284

== ENCOUNTER 2021-10-31 18:26 | Emergency (ER) | payer MEDICAID, SELFPAY ==
--- NOTE | ~2021-10-31 | CT_ITS ---
EXAMINATION: CT HEAD WITHOUT CONTRAST CLINICAL INFORMATION: Aphasia. COMPARISON: CT head from 05/24/2021. TECHNIQUE: Contiguous axial imaging was performed from the skull base to vertex without intravenous administration of contrast. This CT examination was performed using dose optimization techniques as appropriate, variously including the following: *Automated exposure control. *Adjustment of mA and/or kV according to patient size (this includes techniques or standardized protocols for targeted exams where dose is matched to indication/reason for exam; i.e. extremities or head). *Use of iterative reconstruction technique. DLP: 598 mGy-cm FINDINGS: There is no evidence of acute intracranial hemorrhage or edematous territorial infarction. A few foci of hypoattenuation in the periventricular and deep white matter are consistent with mild microangiopathy. Nation-white matter differentiation is preserved. The ventricles are normal in size and configuration. No evidence for obstructive hydrocephalus. No abnormal mass effect or midline shift. No extra-axial fluid collections. Calcific atherosclerotic disease of the intracranial internal carotid arteries. No hyperdense vessel sign. No acute soft tissue or osseous abnormalities. Mild mucosal thickening of the paranasal sinuses. The mastoid air cells and middle ear cavities are clear. CT/CT head/brain wo con IMPRESSION: No evidence of acute intracranial hemorrhage or edematous territorial infarction.
[2021-10-31 18:52] VITALS: BP 128/68; PULSE 75; RESP 14; O2SAT 100; BMI 25.4
[2021-10-31 19:13] VITALS: BP 128/70; PULSE 90; RESP 22; O2SAT 99
--- NOTE | 2021-10-31 19:14 | ED.AMS ---
HPI - Altered Mental Status General Chief Complaint: Altered Mental Status Stated Complaint: AMS Time Seen by Provider: 10/31/21 18:49 Source: EMS and old records reviewed Mode of arrival: EMS Limitations: altered mental status History of Present Illness HPI narrative: 61-year-old female with a history of depression, fibromyalgia, migraines who presents to the ER via EMS with altered mental status. Patient is unable to provide any history at this time. Per EMS patient's neighbors went over to borrow a can consumer sales representative and found her sitting on the couch, nonverbal and staring off into space. She would not respond to them. 911 was called and on EMS arrival patient again was not verbal or responding to them. She was awake and staring at the ground or up into the air. She is brought to the hospital for further evaluation. Patient's neighbors denied any history of substance abuse or mental illness other than depression. they reported to EMS that at baseline she is a fully functional person, alert and oriented. MD complaint: altered mental status Onset (ago): unknown Timing confirmed by: other ( Neighbor) Severity: severe Consistency of symptoms: constant Related Data Home Medications Medication Instructions Recorded Confirmed albuterol sulfate 90 mcg/actuation 2 PO Q4-6H PRN Wheezing 01/01/21 09/03/21 aerosol inhaler amlodipine 5 mg tablet 1 tab PO DAILY 01/01/21 09/03/21 aripiprazole 20 mg tablet 1 tab PO DAILY 01/01/21 09/03/21 clonazepam 1 mg tablet (Klonopin) 1 tab PO TID PRN Anxiety 01/01/21 09/03/21 fluticasone propionate 50 1 - 2 spray intranasal DAILY PRN 01/01/21 09/03/21 mcg/actuation nasal Nasal Congestion spray,suspension gabapentin 300 mg capsule 1 cap PO BEDTIME 01/01/21 09/03/21 hydrochlorothiazide 12.5 mg tablet 1 tab PO DAILY 01/01/21 09/03/21 lisinopril 30 mg tablet 1 tab PO DAILY 01/01/21 09/03/21 metformin 500 mg tablet,extended 1 tab PO BID 01/01/21 09/03/21 release 24 hr trazodone 100 mg tablet 3 tab PO BEDTIME 01/01/21 09/03/21 venlafaxine 150 mg 2 cap PO QAM 01/01/21 09/03/21 capsule,extended release 24 hr oxycodone-acetaminophen 10 mg-325 1 tab PO 06/13/21 09/03/21 mg tablet Previous Rx's Medication Instructions Recorded acetaminophen 500 mg tablet 1,000 mg PO Q6H PRN pain #30 tabs 05/24/21 (Tylenol Extra Strength) gabapentin 300 mg capsule 300 mg PO BID #30 caps 05/24/21 docusate sodium 100 mg capsule 100 mg PO BEDTIME #90 caps 09/05/21 linaclotide 290 mcg capsule 290 mcg PO QAM #30 caps 09/05/21 (Linzess) hydrochlorothiazide 25 mg tablet 25 mg PO QAM #30 tabs 10/21/21 oxycodone 5 mg tablet 5 mg PO Q6H PRN Pain (Scale Score 10/21/21 7-10) #20 tabs Allergies Allergy/AdvReac Type Severity Reaction Status Date / Time morphine [MORPHINE] Allergy Intermediate PALPITATIONS, Verified 09/05/21 12:54 tachicardia quetiapine [Seroquel] Allergy Unknown Unknown Verified 09/05/21 12:54 orphenadrine [ORPHENADRINE] AdvReac Intermediate RAPID Verified 09/05/21 12:54 HEART RATE Review of Systems Review of Systems: Yes Unobtainable due to mental status PMFSH Past Medical History Medical History Anxiety Asthma Chronic idiopathic constipation Depression Diabetes 1.5, managed as type 2 Diverticulosis Fibromyalgia Migraine Surgical History Gastric bypass status for obesity H/O colonoscopy History of pubovaginal sling Hx of bilateral breast reduction surgery Hx of oophorectomy Social History Social History Alcohol intake: never Patient Tobacco Use Status: Never used Tobacco Advance Directives: No Advance Directives Information Provided: Yes Gender identity: Female Physical Exam ED Vital Signs: Vital Signs - 24 hr 10/31/21 18:52 10/31/21 19:13 10/31/21 20:28 Temperature 98.6 F Pulse Rate 75 90 68 Respiratory Rate 14 22 H 16 Blood Pressure 128/68 128/70 106/60 Pulse Oximetry 100 99 100 Oxygen Delivery Method Room Air Room Air Room Air BMI result Body Mass Index 25.4 Appearance: middle-aged female sitting on the stretcher awake, staring up to the ceiling. Does not respond to verbal stimuli. Eyes: Pupils equal, round and reactive to light. ENT: Pharynx normal. Neck: Normal inspection. Neck supple. CVS: Normal heart rate and rhythm. Pulses normal. Respiratory: No respiratory distress. Breath sounds normal. Abdomen: Soft and nontender. +BS x4 Skin: Skin warm and dry. Normal skin color. Normal skin turgor. No rashes. Extremities: Atraumatic x4, lower extremity edema, no evidence of track gauthier. Neuro: awake, responds to noxious stimuli, does not follow commands, moves all 4 extremities spontaneously. yells and grunts but does not speak words Course Course Course Narrative: 61-year-old female with a history of fibromyalgia, depression, asthma who presents to the ER with altered mentation. She was found by her neighbors to be not responding. On arrival to the ER she is awake and alert but not responding to verbal stimuli. To noxious stimuli she hollers and curls up into a ball. She moves all extremities and appears to be nonfocal. She has been cooperative. She is not verbalizing anything. Will get CT head, metabolic workup and U tox. Reevaluation(s) Reevaluation #1: CT head is unremarkable. After her initial combative behavior patient became more calm and cooperative. On re-evaluation she is suddenly conversant in speaking. She reports that her daughter no longer wants her. she would not elaborate. Suspect stress as a major trigger to her altered mentation today. Patient's glucose was also noted to be 55 on serum chemistry. She is awake and alert and eating crackers and drinking juice. Repeat fingerstick pending. Reevaluation #2: Fingerstick 115. She is talking with her significant other, smiling and happy. She is stable for discharge home. MDM - Altered Mental Status Lab Data Result diagrams: 10/31/21 20:03 10/31/21 19:57 Labs: Lab Results 10/31/21 10/31/21 10/31/21 Range/Units 19:57 19:58 20:03 WBC 7.2 (4.8-10.8) X10*3/uL RBC 3.91 L (4.20-5.50) X10*6/uL Hgb 10.7 L (12.0-16.0) g/dl Hct 33.2 L (37.0-47.0) % MCV 84.9 (80.0-98.0) fL MCH 27.4 (27.0-33.0) pg MCHC 32.2 (31.0-35.0) g/dl RDW 15.1 (11.0-16.0) % Plt Count 282 (160-400) X10*3/uL MPV 9.8 (9.4-12.3) fL Immature Gran % (Auto) 0.4 (0.0-0.4) % Neut % (Auto) 49.7 (45-73) % Lymph % (Auto) 37.5 (20-40) % Boyd % (Auto) 8.8 (2-11) % Eos % (Auto) 3.2 (0-4) % Baso % (Auto) 0.4 (0-2) % Lymph # (Auto) 2.7 (1.2-4.9) X10*3/uL Boyd # (Auto) 0.6 (0.1-1.2) X10*3/uL Eos # (Auto) 0.2 (0.0-0.4) X10*3/uL Baso # (Auto) 0.0 (0.0-0.2) X10*3/uL Abs Immat Gran (auto) 0.03 (0.00-0.03) X10*3/uL Absolute Neuts (auto) 3.6 (2.0-8.3) x10*3/uL Absolute Nucleated RBC 0.000 (0.0-0.012) X10*3/uL Nucleated RBC % (auto) 0.0 (0.0-0.2) /100WBC VBG pH (7.32-7.43) VBG pCO2 mmHg VBG pO2 mmHg VBG HCO3 (22-26) mmol/L VBG O2 Saturation % VBG Base Excess mmol/L Sodium 137 (135-145) mmol/L Potassium 4.6 (3.3-5.1) mmol/L Chloride 105 (96-108) mmol/L Carbon Dioxide 21 L (22-29) mmol/L Anion Gap 16 (12-20) BUN 22 H (9-16) mg/dL Creatinine 0.78 (0.5-1.4) mg/dL Estim Creat Clear Calc 78.6 Estimated GFR > 60 POC Glucose (60-115) mg/dL Random Glucose 55 L* (60-115) mg/dL Calcium 8.8 (8.4-10.2) mg/dL Magnesium 2.3 (1.6-2.6) mg/dL Total Bilirubin 0.2 (0.0-1.0) mg/dL Direct Bilirubin < 0.2 (0.0-0.5) mg/dL AST 26 (5-31) U/L ALT 20 (0-31) U/L Alkaline Phosphatase 67 (39-117) U/L Ammonia (13-55) umol/L Total Protein 7.3 (6.5-8.0) g/dL Albumin 4.0 (3.5-5.0) g/dL TSH (0.32-4.0) uIU/mL Urine Color Urine Appearance Urine pH (5.0-8.0) Ur Specific [place] (1.005-1.025) Urine Protein (NEG-TRACE) MG/DL Urine Glucose (UA) (NEG) MG/DL Urine Ketones (NEG) MG/DL Urine Blood (NEG) Urine Nitrite (NEG) Ur Leukocyte Esterase (NEG) Urine Opiates Screen (Not Detect) Urine Fentanyl Screen (Not Detect) Ur Barbiturates Screen (Not Detect) Ur Phencyclidine Scrn (Not Detect) Ur Amphetamines Screen (Not Detect) U Benzodiazepines Scrn (Not Detect) Urine Cocaine Screen (Not Detect) U Marijuana (THC) Screen (Not Detect) Ethyl Alcohol < 10 mg/dL COVID-19 ([facility]OR) (Negative) COVID-19 Clin Com 10/31/21 10/31/21 10/31/21 Range/Units 20:03 20:03 20:03 WBC (4.8-10.8) X10*3/uL RBC (4.20-5.50) X10*6/uL Hgb (12.0-16.0) g/dl Hct (37.0-47.0) % MCV (80.0-98.0) fL MCH (27.0-33.0) pg MCHC (31.0-35.0) g/dl RDW (11.0-16.0) % Plt Count (160-400) X10*3/uL MPV (9.4-12.3) fL Immature Gran % (Auto) (0.0-0.4) % Neut % (Auto) (45-73) % Lymph % (Auto) (20-40) % Boyd % (Auto) (2-11) % Eos % (Auto) (0-4) % Baso % (Auto) (0-2) % Lymph # (Auto) (1.2-4.9) X10*3/uL Boyd # (Auto) (0.1-1.2) X10*3/uL Eos # (Auto) (0.0-0.4) X10*3/uL Baso # (Auto) (0.0-0.2) X10*3/uL Abs Immat Gran (auto) (0.00-0.03) X10*3/uL Absolute Neuts (auto) (2.0-8.3) x10*3/uL Absolute Nucleated RBC (0.0-0.012) X10*3/uL Nucleated RBC % (auto) (0.0-0.2) /100WBC VBG pH (7.32-7.43) VBG pCO2 mmHg VBG pO2 mmHg VBG HCO3 (22-26) mmol/L VBG O2 Saturation % VBG Base Excess mmol/L Sodium (135-145) mmol/L Potassium (3.3-5.1) mmol/L Chloride (96-108) mmol/L Carbon Dioxide (22-29) mmol/L Anion Gap (12-20) BUN (9-16) mg/dL Creatinine (0.5-1.4) mg/dL Estim Creat Clear Calc Estimated GFR POC Glucose (60-115) mg/dL Random Glucose (60-115) mg/dL Calcium (8.4-10.2) mg/dL Magnesium (1.6-2.6) mg/dL Total Bilirubin (0.0-1.0) mg/dL Direct Bilirubin (0.0-0.5) mg/dL AST (5-31) U/L ALT (0-31) U/L Alkaline Phosphatase (39-117) U/L Ammonia 19 (13-55) umol/L Total Protein (6.5-8.0) g/dL Albumin (3.5-5.0) g/dL TSH 1.94 (0.32-4.0) uIU/mL Urine Color Urine Appearance Urine pH (5.0-8.0) Ur Specific [place] (1.005-1.025) Urine Protein (NEG-TRACE) MG/DL Urine Glucose (UA) (NEG) MG/DL Urine Ketones (NEG) MG/DL Urine Blood (NEG) Urine Nitrite (NEG) Ur Leukocyte Esterase (NEG) Urine Opiates Screen (Not Detect) Urine Fentanyl Screen (Not Detect) Ur Barbiturates Screen (Not Detect) Ur Phencyclidine Scrn (Not Detect) Ur Amphetamines Screen (Not Detect) U Benzodiazepines Scrn (Not Detect) Urine Cocaine Screen (Not Detect) U Marijuana (THC) Screen (Not Detect) Ethyl Alcohol mg/dL COVID-19 ([facility]OR) Negative (Negative) COVID-19 Clin Com See Note 10/31/21 10/31/21 10/31/21 Range/Units 20:10 20:41 21:24 WBC (4.8-10.8) X10*3/uL RBC (4.20-5.50) X10*6/uL Hgb (12.0-16.0) g/dl Hct (37.0-47.0) % MCV (80.0-98.0) fL MCH (27.0-33.0) pg MCHC (31.0-35.0) g/dl RDW (11.0-16.0) % Plt Count (160-400) X10*3/uL MPV (9.4-12.3) fL Immature Gran % (Auto) (0.0-0.4) % Neut % (Auto) (45-73) % Lymph % (Auto) (20-40) % Boyd % (Auto) (2-11) % Eos % (Auto) (0-4) % Baso % (Auto) (0-2) % Lymph # (Auto) (1.2-4.9) X10*3/uL Boyd # (Auto) (0.1-1.2) X10*3/uL Eos # (Auto) (0.0-0.4) X10*3/uL Baso # (Auto) (0.0-0.2) X10*3/uL Abs Immat Gran (auto) (0.00-0.03) X10*3/uL Absolute Neuts (auto) (2.0-8.3) x10*3/uL Absolute Nucleated RBC (0.0-0.012) X10*3/uL Nucleated RBC % (auto) (0.0-0.2) /100WBC VBG pH 7.43 (7.32-7.43) VBG pCO2 36 mmHg VBG pO2 56 mmHg VBG HCO3 24 (22-26) mmol/L VBG O2 Saturation 85.0 % VBG Base Excess 0.6 mmol/L Sodium (135-145) mmol/L Potassium (3.3-5.1) mmol/L Chloride (96-108) mmol/L Carbon Dioxide (22-29) mmol/L Anion Gap (12-20) BUN (9-16) mg/dL Creatinine (0.5-1.4) mg/dL Estim Creat Clear Calc Estimated GFR POC Glucose 47 L* 115 (60-115) mg/dL Random Glucose (60-115) mg/dL Calcium (8.4-10.2) mg/dL Magnesium (1.6-2.6) mg/dL Total Bilirubin (0.0-1.0) mg/dL Direct Bilirubin (0.0-0.5) mg/dL AST (5-31) U/L ALT (0-31) U/L Alkaline Phosphatase (39-117) U/L Ammonia (13-55) umol/L Total Protein (6.5-8.0) g/dL Albumin (3.5-5.0) g/dL TSH (0.32-4.0) uIU/mL Urine Color Urine Appearance Urine pH (5.0-8.0) Ur Specific [place] (1.005-1.025) Urine Protein (NEG-TRACE) MG/DL Urine Glucose (UA) (NEG) MG/DL Urine Ketones (NEG) MG/DL Urine Blood (NEG) Urine Nitrite (NEG) Ur Leukocyte Esterase (NEG) Urine Opiates Screen (Not Detect) Urine Fentanyl Screen (Not Detect) Ur Barbiturates Screen (Not Detect) Ur Phencyclidine Scrn (Not Detect) Ur Amphetamines Screen (Not Detect) U Benzodiazepines Scrn (Not Detect) Urine Cocaine Screen (Not Detect) U Marijuana (THC) Screen (Not Detect) Ethyl Alcohol mg/dL COVID-19 ([facility]OR) (Negative) COVID-19 Clin Com 10/31/21 10/31/21 Range/Units 21:39 21:39 WBC (4.8-10.8) X10*3/uL RBC (4.20-5.50) X10*6/uL Hgb (12.0-16.0) g/dl Hct (37.0-47.0) % MCV (80.0-98.0) fL MCH (27.0-33.0) pg MCHC (31.0-35.0) g/dl RDW (11.0-16.0) % Plt Count (160-400) X10*3/uL MPV (9.4-12.3) fL Immature Gran % (Auto) (0.0-0.4) % Neut % (Auto) (45-73) % Lymph % (Auto) (20-40) % Boyd % (Auto) (2-11) % Eos % (Auto) (0-4) % Baso % (Auto) (0-2) % Lymph # (Auto) (1.2-4.9) X10*3/uL Boyd # (Auto) (0.1-1.2) X10*3/uL Eos # (Auto) (0.0-0.4) X10*3/uL Baso # (Auto) (0.0-0.2) X10*3/uL Abs Immat Gran (auto) (0.00-0.03) X10*3/uL Absolute Neuts (auto) (2.0-8.3) x10*3/uL Absolute Nucleated RBC (0.0-0.012) X10*3/uL Nucleated RBC % (auto) (0.0-0.2) /100WBC VBG pH (7.32-7.43) VBG pCO2 mmHg VBG pO2 mmHg VBG HCO3 (22-26) mmol/L VBG O2 Saturation % VBG Base Excess mmol/L Sodium (135-145) mmol/L Potassium (3.3-5.1) mmol/L Chloride (96-108) mmol/L Carbon Dioxide (22-29) mmol/L Anion Gap (12-20) BUN (9-16) mg/dL Creatinine (0.5-1.4) mg/dL Estim Creat Clear Calc Estimated GFR POC Glucose (60-115) mg/dL Random Glucose (60-115) mg/dL Calcium (8.4-10.2) mg/dL Magnesium (1.6-2.6) mg/dL Total Bilirubin (0.0-1.0) mg/dL Direct Bilirubin (0.0-0.5) mg/dL AST (5-31) U/L ALT (0-31) U/L Alkaline Phosphatase (39-117) U/L Ammonia (13-55) umol/L Total Protein (6.5-8.0) g/dL Albumin (3.5-5.0) g/dL TSH (0.32-4.0) uIU/mL Urine Color YELLOW Urine Appearance CLEAR Urine pH 5.5 (5.0-8.0) Ur Specific [place] 1.020 (1.005-1.025) Urine Protein NEG (NEG-TRACE) MG/DL Urine Glucose (UA) NEG (NEG) MG/DL Urine Ketones NEG (NEG) MG/DL Urine Blood NEG (NEG) Urine Nitrite NEG (NEG) Ur Leukocyte Esterase NEG (NEG) Urine Opiates Screen Not Detected (Not Detect) Urine Fentanyl Screen Not Detected (Not Detect) Ur Barbiturates Screen Not Detected (Not Detect) Ur Phencyclidine Scrn Not Detected (Not Detect) Ur Amphetamines Screen Not Detected (Not Detect) U Benzodiazepines Scrn Not Detected (Not Detect) Urine Cocaine Screen Not Detected (Not Detect) U Marijuana (THC) Screen Not Detected (Not Detect) Ethyl Alcohol mg/dL COVID-19 ([facility]) (Negative) COVID-19 Clin Com Critical Care Time Critical Care Time Critical Care Time: Yes Total Critical Care Time: 35 Attestation: I have personally provided critical care time exclusive of time spent on separately billable procedures. Time includes review of lab data, radiology results, frequent bedside reassessments, and monitoring for potential decompensation. Intervention performed as documented. Discharge Plan Discharge Clinical Impression: Hypoglycemia, Depression Patient Disposition: Home, Self-Care Instructions: Stress (ED), Hypoglycemia in a Person with Diabetes (ED) Additional Instructions: Your lab workup today showed you had a glucose in the 40-50 range. Make sure that your eating and drinking appropriately and taking her medications as prescribed. Monitor your glucose 4 times a day, before meals and at bedtime. Follow-up with your doctor this week. If you develop new or worsening symptoms call 911 or come back to the ER for further evaluation. Prescriptions: No Action metformin 500 mg tablet extended release 24 hr 1 tab PO BID clonazepam [Klonopin] 1 mg tablet 1 tab PO TID PRN (Reason: Anxiety) venlafaxine 150 mg capsule,extended release 24hr 2 cap PO QAM amlodipine 5 mg tablet 1 tab PO DAILY trazodone 100 mg tablet 3 tab PO BEDTIME lisinopril 30 mg tablet 1 tab PO DAILY gabapentin 300 mg capsule 1 cap PO BEDTIME albuterol sulfate 90 mcg/actuation HFA aerosol inhaler 2 PO Q4-6H PRN (Reason: Wheezing) fluticasone propionate 50 mcg/actuation spray,suspension 1 - 2 spray intranasal DAILY PRN (Reason: Nasal Congestion) aripiprazole 20 mg tablet 1 tab PO DAILY hydrochlorothiazide 12.5 mg tablet 1 tab PO DAILY oxycodone 5 mg tablet 5 mg PO Q6H PRN (Reason: Pain (Scale Score 7-10)) Qty: 20 0RF Rx Instructions: Partial Fill upon patient request. hydrochlorothiazide 25 mg tablet 25 mg PO QAM Qty: 30 0RF gabapentin 300 mg capsule 300 mg PO BID Qty: 30 0RF acetaminophen [Tylenol Extra Strength] 500 mg tablet 1,000 mg PO Q6H PRN (Reason: pain) Qty: 30 0RF oxycodone-acetaminophen 10-325 mg tablet 1 tab PO docusate sodium 100 mg capsule 100 mg PO BEDTIME Qty: 90 3RF Linzess 290 mcg capsule 290 mcg PO QAM Qty: 30 4RF Print Language: [place] Citizen
--- NOTE | 2021-10-31 19:25 | PC.NURSE ---
pt lying on bed moving extremities vigorously, pt crying and refusing to answer questions at this time.
[2021-10-31 20:09] LABS: Venous Blood Gas Refer to POC result
[2021-10-31 20:11] LABS: Basophils Percent Auto 0.4 % (0-2); Eosinophils Absolute Auto 0.2 X10*3/uL (0.0-0.4); Eosinophils Percent Auto 3.2 % (0-4); Hematocrit 33.2 % (37.0-47.0); Hemoglobin 10.7 g/dl (12.0-16.0); Imm Gran Abs Auto 0.03 X10*3/uL (0.00-0.03); Imm Gran Pct Auto 0.4 % (0.0-0.4); Lymphocytes Absolute Auto 2.7 X10*3/uL (1.2-4.9); Lymphocytes Percent Auto 37.5 % (20-40); MANUAL DIFF FLAG NO; Mean Corpuscular HGB Conc 32.2 g/dl (31.0-35.0); Mean Corpuscular Hemoglobin 27.4 pg (27.0-33.0); Mean Corpuscular Volume 84.9 fL (80.0-98.0); Mean Platelet Volume 9.8 fL (9.4-12.3); Monocytes Absolute Auto 0.6 X10*3/uL (0.1-1.2); Monocytes Percent Auto 8.8 % (2-11); Neutrophils Absolute Auto 3.6 x10*3/uL (2.0-8.3); Neutrophils Percent Auto 49.7 % (45-73); Platelet Count 282 X10*3/uL (160-400); Red Blood Count 3.91 X10*6/uL (4.20-5.50); Red Cell Distribution Width 15.1 % (11.0-16.0); White Blood Count 7.2 X10*3/uL (4.8-10.8)
[2021-10-31 20:14] LABS: VBG Base Excess 0.6 mmol/L; VBG HCO3 24 mmol/L (22-26); VBG pCO2 36 mmHg; VBG pH 7.43 (7.32-7.43); VBG pO2 56 mmHg
[2021-10-31 20:25] LABS: Ammonia 19 umol/L (13-55)
[2021-10-31 20:28] VITALS: BP 106/60; PULSE 68; RESP 16; TEMP 37; O2SAT 100
[2021-10-31 20:28] LABS: COVID-19 Test Negative (Negative); IDNOW Serial# 55D5AD1C
[2021-10-31 20:32] LABS: Ethanol < 10 mg/dL
[2021-10-31 20:36] LABS: Alanine Aminotransferase 20 U/L (0-31); Alkaline Phosphatase 67 U/L (39-117); Anion Gap 16 (12-20); Aspartate Amino Transferase 26 U/L (5-31); Bilirubin Direct < 0.2 mg/dL (0.0-0.5); Bilirubin Total 0.2 mg/dL (0.0-1.0); Blood Urea Nitrogen 22 mg/dL (9-16); Calcium 8.8 mg/dL (8.4-10.2); Carbon Dioxide 21 mmol/L (22-29); Chloride 105 mmol/L (96-108); Creatinine Clr Calc Pharmacy 78.6; Estimated Glomerular Filt Rate > 60; Glucose Random 55 mg/dL (60-115); Magnesium 2.3 mg/dL (1.6-2.6); Potassium 4.6 mmol/L (3.3-5.1); Sodium 137 mmol/L (135-145); Total Protein 7.3 g/dL (6.5-8.0)
[2021-10-31 20:46] LABS: TSH reflex Free T4 1.94 uIU/mL (0.32-4.0)
[2021-10-31 20:49] LABS: Glucose, Whole Blood 47 mg/dL (60-115)
--- NOTE | 2021-10-31 21:31 | PC.NURSE ---
pt awake, able to tolerate food & drink, pt informs MD that she was upset earlier because her daughter said, she didn't want her and that's why she wasn't responding to anyone
[2021-10-31 21:43] LABS: Glucose, Whole Blood 115 mg/dL (60-115)
[2021-10-31 21:47] LABS: Appearance Urine CLEAR; Color Urine YELLOW; Glucose Urine UA NEG (NEG); Leukocyte Esterase Urine NEG (NEG); Nitrite Urine NEG (NEG); PH 5.5 (5.0-8.0); Urine Blood NEG (NEG); Urine Ketones NEG (NEG); Urine Protein NEG (NEG-TRACE)
[2021-10-31 22:02] LABS: Amphetamine Screen Urine Not Detected (Not Detect); Barbiturates, Urine Not Detected (Not Detect); Benzodiazepines Screen Urine Not Detected (Not Detect); Cannabinoid Screen Urine Not Detected (Not Detect); Cocaine Screen Urine Not Detected (Not Detect); Fentanyl, urine Not Detected (Not Detect); Opiate Screen Urine Not Detected (Not Detect); Phencyclidine Screen Urine Not Detected (Not Detect)
[2021-10-31 22:12] LABS: Glucose, Whole Blood 206 mg/dL (60-115)
== END 2021-10-31 22:14 | disposition home or self-care (01) ==
PROVIDERS: Physician Assistant; Emergency Provider Internal Medicine
DX: E13.649 Other specified diabetes mellitus with hypoglycemia without coma (principal); R41.82 Altered mental status, unspecified; G43.909 Migraine, unspecified, not intractable, without status migrainosus; F33.1 Major depressive disorder, recurrent, moderate; Z79.899 Other long term (current) drug therapy; Z20.822 Contact with and (suspected) exposure to COVID-19
CPT/HCPCS: 36415; 70450; 80048; 80076; 80307; 81003; 82077; 82140; 82803; 82947; 83735; 84443; 85025; 87635; 99284

== ENCOUNTER 2021-11-05 09:59 | Outpatient (REF) | payer MEDICAID, SELFPAY ==
--- NOTE | ~2021-11-05 | XR_ITS ---
EXAMINATION: XR SHOULDER, RIGHT CLINICAL INFORMATION: Pain following arthritis injection 2 weeks ago COMPARISON: Previous x-ray June 2014 TECHNIQUE: AP external rotation, Grashey, scapular Y, and axillary views of the right shoulder. FINDINGS: Bone alignment is normal. No fracture or dislocation is seen. 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 Soft tissues are unremarkable. There are postsurgical changes to the cervical spine. XR/XR shoulder RT min 2V IMPRESSION: Degenerative changes.
== END 2021-11-05 10:00 | disposition home or self-care (01) ==
LOC: HO.XRAY 09:59
PROVIDERS: PCP Internal Medicine; Visit Provider Nurse Practitioner Women's Health
DX: M25.511 Pain in right shoulder (principal)
CPT/HCPCS: 73030

== ENCOUNTER 2021-11-10 11:30 | Emergency (ER) | payer MEDICAID, SELFPAY ==
[2021-11-10 11:37] VITALS: BP 114/75; PULSE 79; RESP 18; TEMP 36.6; O2SAT 98; BMI 25.7
--- NOTE | 2021-11-10 11:52 | ED_ITS ---
HPI - Female Genitourinary General Chief complaint: Urogenital-Female Stated complaint: itchiness all over body Time Seen by Provider: 11/10/21 11:52 Source: patient Mode of arrival: ambulatory Limitations: no limitations History of Present Illness HPI Narrative: Patient is a 61 year old female presenting to the emergency department today with itching all over, anxiety, and some pain with urination. Patient states that she is feeling itchy all over and she is very anxious about it. Patient states that she also had a moment when her urination hurt but feels OK now. Patient denies any dizziness, lightheadedness, abdominal pain, nausea, vomiting, fever, chills, blurry vision, double vision, loss of vision, chest pain, difficulty breathing, shortness of breath, back pain, night sweats, pain with u rination, increased urinary frequency, increased urinary urgency, blood in her urine or stool, syncope or a near syncopal episode, recent trauma or falls, bowel incontinence, bladder incontinence, bowel retention, bladder retention, or any other complaints at this time. MD elicited complaint: dysuria Onset (ago): day(s) Severity: mild Severity scale (1-10): 1 Vaginal discharge: none Vaginal bleeding: none Urinary symptoms: Dysuria Exacerbating factors: none Relieving factors: none Associated symptoms: denies other symptoms Treatment prior to arrival: none Related Data Home Medications Medication Instructions Recorded Confirmed albuterol sulfate 90 mcg/actuation 2 PO Q4-6H PRN Wheezing 01/01/21 09/03/21 aerosol inhaler amlodipine 5 mg tablet 1 tab PO DAILY 01/01/21 09/03/21 aripiprazole 20 mg tablet 1 tab PO DAILY 01/01/21 09/03/21 clonazepam 1 mg tablet (Klonopin) 1 tab PO TID PRN Anxiety 01/01/21 09/03/21 fluticasone propionate 50 1 - 2 spray intranasal DAILY PRN 01/01/21 09/03/21 mcg/actuation nasal Nasal Congestion spray,suspension gabapentin 300 mg capsule 1 cap PO BEDTIME 01/01/21 09/03/21 hydrochlorothiazide 12.5 mg tablet 1 tab PO DAILY 01/01/21 09/03/21 lisinopril 30 mg tablet 1 tab PO DAILY 01/01/21 09/03/21 metformin 500 mg tablet,extended 1 tab PO BID 01/01/21 09/03/21 release 24 hr trazodone 100 mg tablet 3 tab PO BEDTIME 01/01/21 09/03/21 venlafaxine 150 mg 2 cap PO QAM 01/01/21 09/03/21 capsule,extended release 24 hr oxycodone-acetaminophen 10 mg-325 1 tab PO 06/13/21 09/03/21 mg tablet Previous Rx's Medication Instructions Recorded acetaminophen 500 mg tablet 1,000 mg PO Q6H PRN pain #30 tabs 05/24/21 (Tylenol Extra Strength) gabapentin 300 mg capsule 300 mg PO BID #30 caps 05/24/21 docusate sodium 100 mg capsule 100 mg PO BEDTIME #90 caps 09/05/21 linaclotide 290 mcg capsule 290 mcg PO QAM #30 caps 09/05/21 (Linzess) hydrochlorothiazide 25 mg tablet 25 mg PO QAM #30 tabs 10/21/21 oxycodone 5 mg tablet 5 mg PO Q6H PRN Pain (Scale Score 10/21/21 7-10) #20 tabs Allergies Allergy/AdvReac Type Severity Reaction Status Date / Time morphine [MORPHINE] Allergy Intermediate PALPITATIONS, Verified 09/05/21 12:54 tachicardia quetiapine [Seroquel] Allergy Unknown Unknown Verified 09/05/21 12:54 orphenadrine [ORPHENADRINE] AdvReac Intermediate RAPID Verified 09/05/21 12:54 HEART RATE Review of Systems Constitutional: Constitutional: Reports no additional constitutional co mplaints, Denies chills, Denies fever(s) and Denies night sweats Eyes: Eyes: Reports no additional eye complaints, Denies blurry vision, Denies change in vision, Denies diplopia, Denies eye discharge, Denies loss of vision and Denies eye pain ENT: Denies dizziness Cardiovascular: Cardiovascular: Reports no additional cardiovascular complaints, Denies chest pain, Denies lightheadedness, Denies Loss of Consciousness and Denies dyspnea Respiratory: Respiratory: Reports no additional respiratory complaints and Denies dyspnea Gastrointestinal: Gastrointestinal: Reports no additional gastrointestinal complaints, Denies abdominal pain, Denies melena, Denies hematochezia, Denies change in bowel habits and Denies change in stool character Genitourinary: Genitourinary: Denies hematuria, Denies urinary frequency, Reports dysuria, Denies urinary incontinence, Denies urinary hesitancy and Denies urinary urgency Musculoskeletal: Musculoskeletal: Reports no additional musculoskeletal complaints, Denies numbness and Denies tingling Neurologic: Denies dizziness, Denies loss of vision, Denies numbness and Denies tingling Psychiatric: Psychiatric: Reports no additional psychiatric complaints Endocrine: Endocrine: Reports no additional endocrine complaints Hematologic/Lymphatic: Hematologic/Lymphatic: Reports no additional hematologic/lymphatic complaints Allergic/Immunologic: Allergic/Immunologic: Reports no additional allergic/immunologic complaints [facility] Past Medical History Attestation statement: The following information was validated with the patient. Source: old records reviewed Medical History Anxiety Asthma Chronic idiopathic constipation Depression Diabetes 1.5, managed as type 2 Diverticulosis Fibromyalgia Migraine Surgical History Gastric bypass status for obesity H/O colonoscopy History of pubovaginal sling Hx of bilateral breast reduction surgery Hx of oophorectomy Social History Social History Alcohol intake: never Patient Tobacco Use Status: Never used Tobacco Advance Directives: No Advance Directives Information Provided: No Gender identity: Female Physical Exam Vital Signs: Vital Signs: Last Vital Signs Temp 98 F 11/10/21 11:37 Pulse 79 11/10/21 11:37 Resp 18 11/10/21 11:37 BP 114/75 11/10/21 11:37 Pulse Ox 98 11/10/21 11:37 O2 Del Method 11/10/21 11:37 BMI result Body Mass Index 25.7 Const: General: cooperative, no acute distress, alert and awake Nutritional Appearance: well nourished Orientation/consciousness: patient oriented x3 Limitations: no limitations HEENT: Head: Yes normal to inspection and Yes atraumatic Ears: hearing grossly normal bilaterally and external ears normal General nose exam: Normal external nose present, no nasal discharge noted and no epistaxis Face and sinus: Yes normal facial exam, No abrasion and No laceration Mouth: Normal oral and palatal mucosa present, no drooling and no muffled voice Eyes: General: appearance normal, both eyes and all related structures Periorbital: periorbital findings normal Eyelids: Yes eyelids normal Conjunctivae: conjunctivae normal Pupils: Equal, round and reactive pupils present EOM: EOMs intact bilaterally Neck: Neck: Yes normal visual inspection, Yes full ROM and Yes no lymphadenopathy Chest: Chest palpation & inspection: normal inspection of the chest Resp: Effort & Inspection: normal respiratory effort and able to speak in complete sentences Auscultation: clear to auscultation bilaterally Cardio: Rate: regular rate Rhythm: regular rhythm GI: Inspection: Yes normal to inspection Neuro: General: patient oriented x3 and moves all extremities Cranial nerves: Yes Equal, round and reactive pupils present Cognition (Neuro): normal cognition Motor exam (neuro): 5/5 motor strength present throughout Sensory Exam: Normal double simultaneous stimulation for sensation Coordination: [id number] test normal Extrem: General: Yes normal to inspection, Yes full ROM and Yes capillary refill normal Psych: Appearance: grossly normal Mental Status: mental status grossly normal Affect: Anxious affect present Attitude: cooperative Thought process: Normal thought process present Thought content: Normal thought content present Insight: Good insight present (Psych) MDM - Female Genitourinary MDM Narrative Medical decision making narrative: Patient is a 61 year old female presenting to the emergency department today with dysuria, itching all over, and anxiety. Patient's physical exam showed an anxious individual. Patient's blood work was unremarkable. Patient's urine showed no acute process. explained my physical exam findings as well as all test results to the patient. I answered all questions asked by the patient. Patient received IM Solu-Medrol and PO Ativan which she stated helped her symptoms significantly. I stressed the importance of the patient taking her medication as prescribed. I stressed the importance of the patient following up with her primary care provider. I stressed the importance of the patient retur bell to the emergency department immediately if her symptoms were to worsen or if she were to develop any dizziness, shortness of breath, difficulty breathing, chest pain, blurry vision, loss of vision, nausea, vomiting, abdominal pain, fever, chills, back pain, or any other complaints. Patient verbalized agreement and understanding with this treatment plan and discharge. Differential Diagnosis Differential diagnosis: Likely urinary tract infection Medical Records Attestation: I reviewed the patient's medical records. Lab Data Attestation: I reviewed the patient's lab results. Result diagrams: 11/10/21 12:31 07/02/22 12:31 Labs: Lab Results 11/10/21 11/10/21 11/10/21 Range/Units 11:58 11:58 12:31 WBC 7.3 (4.8-10.8) X10*3/uL RBC 3.78 L (4.20-5.50) X10*6/uL Hgb 10.4 L (12.0-16.0) g/dl Hct 31.7 L (37.0-47.0) % MCV 83.9 (80.0-98.0) fL MCH 27.5 (27.0-33.0) pg MCHC 32.8 (31.0-35.0) g/dl RDW 14.8 (11.0-16.0) % Plt Count 274 (160-400) X10*3/uL MPV 10.2 (9.4-12.3) fL Immature Gran % (Auto) 0.4 (0.0-0.4) % Neut % (Auto) 53.0 (45-73) % Lymph % (Auto) 35.5 (20-40) % [place] % (Auto) 9.3 (2-11) % Eos % (Auto) 1.4 (0-4) % Baso % (Auto) 0.4 (0-2) % Lymph # (Auto) 2.6 (1.2-4.9) X10*3/uL [place] # (Auto) 0.7 (0.1-1.2) X10*3/uL Eos # (Auto) 0.1 (0.0-0.4) X10*3/uL Baso # (Auto) 0.0 (0.0-0.2) X10*3/uL Abs Immat Gran (auto) 0.03 (0.00-0.03) X10*3/uL Absolute Neuts (auto) 3.9 (2.0-8.3) x10*3/uL Absolute Nucleated RBC 0.000 (0.0-0.012) X10*3/uL Nucleated RBC % (auto) 0.0 (0.0-0.2) /100WBC Sodium (135-145) mmol/L Potassium (3.3-5.1) mmol/L Chloride (96-108) mmol/L Carbon Dioxide (22-29) mmol/L Anion Gap (12-20) BUN (9-16) mg/dL Creatinine (0.5-1.4) mg/dL Estim Creat Clear Calc Estimated GFR Random Glucose (60-115) mg/dL Uric Acid (2.4-5.7) mg/dL Calcium (8.4-10.2) mg/dL Total Bilirubin (0.0-1.0) mg/dL AST (5-31) U/L ALT (0-31) U/L Alkaline Phosphatase (39-117) U/L Total Creatine Kinase (26-140) U/L Total Protein (6.5-8.0) g/dL Albumin (3.5-5.0) g/dL Urine Color YELLOW Urine Appearance HAZY Urine pH 5.5 (5.0-8.0) Ur Specific [place] >= 1.030 H (1.005-1.025) Urine Protein NEG (NEG-TRACE) MG/DL Urine Glucose (UA) NEG (NEG) MG/DL Urine Ketones 5 (NEG) MG/DL Urine Blood NEG (NEG) Urine Nitrite NEG (NEG) Ur Leukocyte Esterase NEG (NEG) Urine Opiates Screen Not Detected (Not Detect) Urine Fentanyl Screen POSITIVE H (Not Detect) Ur Barbiturates Screen POSITIVE H (Not Detect) Ur Phencyclidine Scrn Not Detected (Not Detect) Ur Amphetamines Screen POSITIVE H (Not Detect) U Benzodiazepines Scrn Not Detected (Not Detect) Urine Cocaine Screen Not Detected (Not Detect) U Marijuana (THC) Screen Not Detected (Not Detect) 11/10/21 Range/Units 12:31 WBC (4.8-10.8) X10*3/uL RBC (4.20-5.50) X10*6/uL Hgb (12.0-16.0) g/dl Hct (37.0-47.0) % MCV (80.0-98.0) fL MCH (27.0-33.0) pg MCHC (31.0-35.0) g/dl RDW (11.0-16.0) % Plt Count (160-400) X10*3/uL MPV (9.4-12.3) fL Immature Gran % (Auto) (0.0-0.4) % Neut % (Auto) (45-73) % Lymph % (Auto) (20-40) % [place] % (Auto) (2-11) % Eos % (Auto) (0-4) % Baso % (Auto) (0-2) % Lymph # (Auto) (1.2-4.9) X10*3/uL [place] # (Auto) (0.1-1.2) X10*3/uL Eos # (Auto) (0.0-0.4) X10*3/uL Baso # (Auto) (0.0-0.2) X10*3/uL Abs Immat Gran (auto) (0.00-0.03) X10*3/uL Absolute Neuts (auto) (2.0-8.3) x10*3/uL Absolute Nucleated RBC (0.0-0.012) X10*3/uL Nucleated RBC % (auto) (0.0-0.2) /100WBC Sodium 138 (135-145) mmol/L Potassium 4.3 (3.3-5.1) mmol/L Chloride 106 (96-108) mmol/L Carbon Dioxide 20 L (22-29) mmol/L Anion Gap 16 (12-20) BUN 28 H (9-16) mg/dL Creatinine 0.92 (0.5-1.4) mg/dL Estim Creat Clear Calc 64.8 Estimated GFR > 60 Random Glucose 63 (60-115) mg/dL Uric Acid 4.7 (2.4-5.7) mg/dL Calcium 9.2 (8.4-10.2) mg/dL Total Bilirubin 0.3 (0.0-1.0) mg/dL AST 3 L D (5-31) U/L ALT 15 (0-31) U/L Alkaline Phosphatase 61 (39-117) U/L Total Creatine Kinase 127 (26-140) U/L Total Protein 6.8 (6.5-8.0) g/dL Albumin 4.1 (3.5-5.0) g/dL Urine Color Urine Appearance Urine pH (5.0-8.0) Ur Specific [place] (1.005-1.025) Urine Protein (NEG-TRACE) MG/DL Urine Glucose (UA) (NEG) MG/DL Urine Ketones (NEG) MG/DL Urine Blood (NEG) Urine Nitrite (NEG) Ur Leukocyte Esterase (NEG) Urine Opiates Screen (Not Detect) Urine Fentanyl Screen (Not Detect) Ur Barbiturates Screen (Not Detect) Ur Phencyclidine Scrn (Not Detect) Ur Amphetamines Screen (Not Detect) U Benzodiazepines Scrn (Not Detect) Urine Cocaine Screen (Not Detect) U Marijuana (THC) Screen (Not Detect) Discharge Plan Discharge Clinical Impression: Itching Patient Disposition: Home, Self-Care Instructions: Itchy Skin (ED) Additional Instructions: Follow up with your primary care provider. Return to the emergency department immediately if your symptoms worsen or if you develop any dizziness, shortness of breath, difficulty breathing, chest pain, blurry vision, loss of vision, nausea, vomiting, abdominal pain, fever, chills, back pain, or any other complaints. Prescriptions: No Action metformin 500 mg tablet extended release 24 hr 1 tab PO BID clonazepam [Klonopin] 1 mg tablet 1 tab PO TID PRN (Reason: Anxiety) venlafaxine 150 mg capsule,extended release 24hr 2 cap PO QAM amlodipine 5 mg tablet 1 tab PO DAILY trazodone 100 mg tablet 3 tab PO BEDTIME lisinopril 30 mg tablet 1 tab PO DAILY gabapentin 300 mg capsule 1 cap PO BEDTIME albuterol sulfate 90 mcg/actuation HFA aerosol inhaler 2 PO Q4-6H PRN (Reason: Wheezing) fluticasone propionate 50 mcg/actuation spray,suspension 1 - 2 spray intranasal DAILY PRN (Reason: Nasal Congestion) aripiprazole 20 mg tablet 1 tab PO DAILY hydrochlorothiazide 12.5 mg tablet 1 tab PO DAILY oxycodone 5 mg tablet 5 mg PO Q6H PRN (Reason: Pain (Scale Score 7-10)) Qty: 20 0RF Rx Instructions: Partial Fill upon patient request. hydrochlorothiazide 25 mg tablet 25 mg PO QAM Qty: 30 0RF gabapentin 300 mg capsule 300 mg PO BID Qty: 30 0RF acetaminophen [Tylenol Extra Strength] 500 mg tablet 1,000 mg PO Q6H PRN (Reason: pain) Qty: 30 0RF oxycodone-acetaminophen 10-325 mg tablet 1 tab PO docusate sodium 100 mg capsule 100 mg PO BEDTIME Qty: 90 3RF Linzess 290 mcg capsule 290 mcg PO QAM Qty: 30 4RF Referrals: Elizabeth Dunn MD [Primary Care Provider] - Interventions: ED Discharge Assessment Last Done: 11/10/21 15:26 Discharge Date/Time: 11/10/21 14:25 Print Language: Gibraltarian
[2021-11-10] MEDS: methylPREDNISolone Sod Succ 125 MG/2 ML VIAL 60 MG IM (12:03)
[2021-11-10 12:07] LABS: Appearance Urine HAZY; Color Urine YELLOW; Glucose Urine UA NEG (NEG); Leukocyte Esterase Urine NEG (NEG); Nitrite Urine NEG (NEG); PH 5.5 (5.0-8.0); Specific Gravity - Urine >= 1.030 (1.005-1.025); Urine Blood NEG (NEG); Urine Ketones 5 MG/DL (NEG); Urine Protein NEG (NEG-TRACE)
[2021-11-10] MEDS: LORazepam 1 MG TABLET 2 MG PO (12:11)
[2021-11-10 12:40] LABS: Amphetamine Screen Urine POSITIVE (Not Detect); Barbiturates, Urine POSITIVE (Not Detect); Benzodiazepines Screen Urine Not Detected (Not Detect); Cannabinoid Screen Urine Not Detected (Not Detect); Cocaine Screen Urine Not Detected (Not Detect); Fentanyl, urine POSITIVE (Not Detect); Opiate Screen Urine Not Detected (Not Detect); Phencyclidine Screen Urine Not Detected (Not Detect)
[2021-11-10 12:40] LABS: MANUAL DIFF FLAG NO
[2021-11-10 12:41] LABS: Basophils Percent Auto 0.4 % (0-2); Eosinophils Absolute Auto 0.1 X10*3/uL (0.0-0.4); Eosinophils Percent Auto 1.4 % (0-4); Hematocrit 31.7 % (37.0-47.0); Hemoglobin 10.4 g/dl (12.0-16.0); Imm Gran Abs Auto 0.03 X10*3/uL (0.00-0.03); Imm Gran Pct Auto 0.4 % (0.0-0.4); Lymphocytes Absolute Auto 2.6 X10*3/uL (1.2-4.9); Lymphocytes Percent Auto 35.5 % (20-40); Mean Corpuscular HGB Conc 32.8 g/dl (31.0-35.0); Mean Corpuscular Hemoglobin 27.5 pg (27.0-33.0); Mean Corpuscular Volume 83.9 fL (80.0-98.0); Mean Platelet Volume 10.2 fL (9.4-12.3); Monocytes Absolute Auto 0.7 X10*3/uL (0.1-1.2); Monocytes Percent Auto 9.3 % (2-11); Neutrophils Absolute Auto 3.9 x10*3/uL (2.0-8.3); Platelet Count 274 X10*3/uL (160-400); Red Blood Count 3.78 X10*6/uL (4.20-5.50); Red Cell Distribution Width 14.8 % (11.0-16.0); White Blood Count 7.3 X10*3/uL (4.8-10.8)
[2021-11-10 13:04] LABS: Alanine Aminotransferase 15 U/L (0-31); Albumin Level 4.1 g/dL (3.5-5.0); Alkaline Phosphatase 61 U/L (39-117); Anion Gap 16 (12-20); Aspartate Amino Transferase 3 U/L (5-31); Bilirubin Total 0.3 mg/dL (0.0-1.0); Blood Urea Nitrogen 28 mg/dL (9-16); Calcium 9.2 mg/dL (8.4-10.2); Carbon Dioxide 20 mmol/L (22-29); Chloride 106 mmol/L (96-108); Creatinine Clr Calc Pharmacy 64.8; Estimated Glomerular Filt Rate > 60; Glucose Random 63 mg/dL (60-115); Potassium 4.3 mmol/L (3.3-5.1); Sodium 138 mmol/L (135-145); Total Protein 6.8 g/dL (6.5-8.0); Uric Acid 4.7 mg/dL (2.4-5.7)
== END 2021-11-10 14:25 | disposition home or self-care (01) ==
PROVIDERS: Physician Assistant Medical; Emergency Provider Emergency Medicine Emergency Medical Services; PCP Internal Medicine
DX: L29.9 Pruritus, unspecified (principal); F41.9 Anxiety disorder, unspecified; E13.9 Other specified diabetes mellitus without complications; Z79.899 Other long term (current) drug therapy
CPT/HCPCS: 36415; 80053; 80307; 81003; 82550; 84550; 85025; 96372; 99281; 99283; 99284; J2930

== ENCOUNTER 2021-11-10 18:42 | Emergency (ER) | payer MEDICAID, SELFPAY ==
[2021-11-10 19:06] VITALS: BP 119/90; PULSE 86; RESP 18; TEMP 36.5; O2SAT 97; BMI 25.7
== END 2021-11-11 00:15 | disposition left against medical advice (07) ==
PROVIDERS: Emergency Provider Emergency Medicine; PCP Internal Medicine
DX: L29.9 Pruritus, unspecified (principal); E13.9 Other specified diabetes mellitus without complications
CPT/HCPCS: 99281

== ENCOUNTER 2021-11-12 13:44 | Emergency (ER) | payer MEDICAID, SELFPAY ==
[2021-11-12 16:00] VITALS: BP 95/54; PULSE 80; RESP 18; TEMP 36.7; O2SAT 100; BMI 25.7
--- NOTE | 2021-11-12 16:29 | ED.GENADULT ---
HPI - General Adult General Chief complaint: General Medical Stated complaint: full body itch Time Seen by Provider: 11/12/21 13:45 Source: patient Mode of arrival: ambulatory Limitations: no limitations History of Present Illness HPI narrative: 61 yold female with pmh DM, Migraine, Depression, Asthma, Substance abuse presents to the ED for generalized itchiness with no rash. Patient was seen in the ED two days ago and recieved treatment in the ED, but was not discharged with any meds. patient states no rash, tongue swelling, lip swelling, sensation of throat closing, fever, chills, flank pain, weakness, chest pain or, shortness of breath. Related Data Home Medications Medication Instructions Recorded Confirmed albuterol sulfate 90 mcg/actuation 2 PO Q4-6H PRN Wheezing 01/01/21 09/03/21 aerosol inhaler amlodipine 5 mg tablet 1 tab PO DAILY 01/01/21 09/03/21 aripiprazole 20 mg tablet 1 tab PO DAILY 01/01/21 09/03/21 clonazepam 1 mg tablet (Klonopin) 1 tab PO TID PRN Anxiety 01/01/21 09/03/21 fluticasone propionate 50 1 - 2 spray intranasal DAILY PRN 01/01/21 09/03/21 mcg/actuation nasal Nasal Congestion spray,suspension gabapentin 300 mg capsule 1 cap PO BEDTIME 01/01/21 09/03/21 hydrochlorothiazide 12.5 mg tablet 1 tab PO DAILY 01/01/21 09/03/21 lisinopril 30 mg tablet 1 tab PO DAILY 01/01/21 09/03/21 metformin 500 mg tablet,extended 1 tab PO BID 01/01/21 09/03/21 release 24 hr trazodone 100 mg tablet 3 tab PO BEDTIME 01/01/21 09/03/21 venlafaxine 150 mg 2 cap PO QAM 01/01/21 09/03/21 capsule,extended release 24 hr oxycodone-acetaminophen 10 mg-325 1 tab PO 06/13/21 09/03/21 mg tablet Previous Rx's Medication Instructions Recorded acetaminophen 500 mg tablet 1,000 mg PO Q6H PRN pain #30 tabs 05/24/21 (Tylenol Extra Strength) gabapentin 300 mg capsule 300 mg PO BID #30 caps 05/24/21 docusate sodium 100 mg capsule 100 mg PO BEDTIME #90 caps 09/05/21 linaclotide 290 mcg capsule 290 mcg PO QAM #30 caps 09/05/21 (Linzess) hydrochlorothiazide 25 mg tablet 25 mg PO QAM #30 tabs 10/21/21 oxycodone 5 mg tablet 5 mg PO Q6H PRN Pain (Scale Score 10/21/21 7-10) #20 tabs famotidine 20 mg tablet (Pepcid) 20 mg PO BID 7 days #14 tabs 11/12/21 hydroxyzine HCl 25 mg tablet 25 mg PO TID PRN itching 7 days 11/12/21 #21 tabs prednisone 20 mg tablet 40 mg PO DAILY 5 days #10 tabs 11/12/21 Allergies Allergy/AdvReac Type Severity Reaction Status Date / Time morphine [MORPHINE] Allergy Intermediate PALPITATIONS, Verified 11/12/21 15:59 tachicardia quetiapine [Seroquel] Allergy Unknown Unknown Verified 11/12/21 15:59 orphenadrine [ORPHENADRINE] AdvReac Intermediate RAPID Verified 11/12/21 15:59 HEART RATE Review of Systems Review of Systems: generalized pruritis Yes all other systems are reviewed and are negative [facility] Past Medical History Medical History Anxiety Asthma Chronic idiopathic constipation Depression Diabetes 1.5, managed as type 2 Diverticulosis Fibromyalgia Migraine Surgical History Gastric bypass status for obesity H/O colonoscopy History of pubovaginal sling Hx of bilateral breast reduction surgery Hx of oophorectomy Social History Social History Alcohol intake: never Patient Tobacco Use Status: Never used Tobacco Advance Directives: No Advance Directives Information Provided: No Gender identity: Female Physical Exam ED Vital Signs: Vital Signs - 24 hr 11/12/21 16:00 11/12/21 17:07 Temperature 98.1 F Pulse Rate 80 62 Respiratory Rate 18 16 Blood Pressure 95/54 L 102/58 L Pulse Oximetry 100 97 Oxygen Delivery Method Room Air Room Air BMI result Body Mass Index 25.7 Const General: cooperative, healthy appearing, comfortable, no acute distress, well developed, alert, awake and Physically active Orientation/consciousness: oriented to time and patient oriented x3 [facility] Head: Yes normal to inspection, Yes No palpable skull fracture present, Yes normocephalic, Yes atraumatic and No abrasion Face and sinus: Yes normal facial exam, Yes sinuses nontender and Yes face symmetric Throat: Yes posterior oropharynx normal, Yes tonsils normal and Yes uvula midline Eyes General: appearance normal, both eyes and all related structures Neck Neck: Yes normal visual inspection, Yes full ROM, Yes no lymphadenopathy, Yes no meningeal signs, Yes trachea midline, Yes supple, No anterior neck swelling and No tender Chest Chest palpation & inspection: normal inspection of the chest and normal palpation of entire chest wall Resp Effort & Inspection: normal respiratory effort and able to speak in complete sentences Auscultation: clear to auscultation bilaterally Cardio Jugular venous distension: no JVD Heart sounds: S1 normal heart sound present and S2 normal heart sound present GI Inspection: Yes normal to inspection and No abdominal wall ecchymosis Palpation (GI): Soft to palpation, not firm, nontender, no guarding and not rigid General: No CVA tenderness and Yes no CVA tenderness Back/Spine/Pelvis Back: no CVA tenderness, No CVA tenderness and No back tenderness Skin Other: negative for any rash General skin exam: no rashes or lesions noted and elasticity normal Neuro General: oriented to time, patient oriented x3, gait normal, tone normal, no meningeal signs and CN's II-XI intact bilaterally Cranial nerves: Yes CN's II-XII intact bilaterally Extrem General: Yes normal to inspection and Yes full ROM Psych Appearance: grossly normal, well kempt and not disheveled Course Course Course Narrative: Negative for any rash Reevaluation(s) Reevaluation #1: Patient was seen her two days ago with normal labs. Patient was not prescribed wtih any meds. patient discharged with presnidone, atarax, and pepcid. Patient may be suffering from formication due to drug abuse ( methamphetmine, heroin, and cocoaine. Physical exam negative for any facial swelling, lip swelling, tongue swelling, or body rash. Time: 16:36 Medical Decision Making MDM Narrative Medical decision making narrative: pruritis Discharge Plan Discharge Clinical Impression: Itching Patient Disposition: Home, Self-Care Instructions: Itchy Skin (ED) Additional Instructions: Please follow up with PCP. Return to the ED for any throat swelling, lip swelling, tongue swelling, fever, rash, chest pain, shortness of breath, or any other concerning symptoms. Prescriptions: New prednisone 20 mg tablet 40 mg PO DAILY 5 Days Qty: 10 0RF famotidine [Pepcid] 20 mg tablet 20 mg PO BID 7 Days Qty: 14 0RF hydroxyzine HCl 25 mg tablet 25 mg PO TID PRN (Reason: itching) 7 Days Qty: 21 0RF No Action metformin 500 mg tablet extended release 24 hr 1 tab PO BID clonazepam [Klonopin] 1 mg tablet 1 tab PO TID PRN (Reason: Anxiety) venlafaxine 150 mg capsule,extended release 24hr 2 cap PO QAM amlodipine 5 mg tablet 1 tab PO DAILY trazodone 100 mg tablet 3 tab PO BEDTIME lisinopril 30 mg tablet 1 tab PO DAILY gabapentin 300 mg capsule 1 cap PO BEDTIME albuterol sulfate 90 mcg/actuation HFA aerosol inhaler 2 PO Q4-6H PRN (Reason: Wheezing) fluticasone propionate 50 mcg/actuation spray,suspension 1 - 2 spray intranasal DAILY PRN (Reason: Nasal Congestion) aripiprazole 20 mg tablet 1 tab PO DAILY hydrochlorothiazide 12.5 mg tablet 1 tab PO DAILY oxycodone 5 mg tablet 5 mg PO Q6H PRN (Reason: Pain (Scale Score 7-10)) Qty: 20 0RF Rx Instructions: Partial Fill upon patient request. hydrochlorothiazide 25 mg tablet 25 mg PO QAM Qty: 30 0RF gabapentin 300 mg capsule 300 mg PO BID Qty: 30 0RF acetaminophen [Tylenol Extra Strength] 500 mg tablet 1,000 mg PO Q6H PRN (Reason: pain) Qty: 30 0RF oxycodone-acetaminophen 10-325 mg tablet 1 tab PO docusate sodium 100 mg capsule 100 mg PO BEDTIME Qty: 90 3RF Linzess 290 mcg capsule 290 mcg PO QAM Qty: 30 4RF Interventions: ED Discharge Assessment Last Done: 11/12/21 17:10 Discharge Date/Time: 11/12/21 17:11 Print Language: Vietnamese
[2021-11-12 17:07] VITALS: BP 102/58; PULSE 62; RESP 16; O2SAT 97
== END 2021-11-12 17:11 | disposition home or self-care (01) ==
PROVIDERS: Emergency Provider Emergency Medicine; PCP Internal Medicine
DX: L29.9 Pruritus, unspecified (principal); E11.9 Type 2 diabetes mellitus without complications; F19.10 Other psychoactive substance abuse, uncomplicated
CPT/HCPCS: 99283

== ENCOUNTER 2021-11-24 02:48 | Emergency (ER) | payer MEDICAID, SELFPAY ==
[2021-11-24 02:53] VITALS: BP 127/72; PULSE 73; RESP 16; TEMP 36.9; O2SAT 100; BMI 25.7
[2021-11-24 05:18] VITALS: BP 134/79; PULSE 69; RESP 18; O2SAT 100
[2021-11-24 07:26] LABS: Glucose, Whole Blood 68 mg/dL (60-115)
--- NOTE | 2021-11-24 07:26 | PC.NURSE ---
Pt POC checked in triage at request of pt, POC 68, orange juice given. Pt appears anxious, had emesis bag and attempted to make herself vomit. Pt taken back to main ED at this time.
--- NOTE | 2021-11-24 07:48 | ED.GENADULT ---
HPI - General Adult General Chief complaint: Skin/Abscess/Foreign Body Stated complaint: itching all over body Time Seen by Provider: 11/24/21 07:48 Source: patient Mode of arrival: ambulatory Limitations: no limitations History of Present Illness HPI narrative: 61-year-old female presented to the emergency department for itching all over, patient appears very anxious, patient declined any new change in her daily routine no new medication was started decline using any drugs recently, patient was seen and evaluated for similar presentation twice in the last week. Declined any rash. Patient during the exam is speaking in full sentence appear very anxious. Patient declined any SI or HI or hallucination. Related Data Home Medications Medication Instructions Recorded Confirmed albuterol sulfate 90 mcg/actuation 2 PO Q4-6H PRN Wheezing 01/01/21 09/03/21 aerosol inhaler amlodipine 5 mg tablet 1 tab PO DAILY 01/01/21 09/03/21 aripiprazole 20 mg tablet 1 tab PO DAILY 01/01/21 09/03/21 clonazepam 1 mg tablet (Klonopin) 1 tab PO TID PRN Anxiety 01/01/21 09/03/21 fluticasone propionate 50 1 - 2 spray intranasal DAILY PRN 01/01/21 09/03/21 mcg/actuation nasal Nasal Congestion spray,suspension gabapentin 300 mg capsule 1 cap PO BEDTIME 01/01/21 09/03/21 hydrochlorothiazide 12.5 mg tablet 1 tab PO DAILY 01/01/21 09/03/21 lisinopril 30 mg tablet 1 tab PO DAILY 01/01/21 09/03/21 metformin 500 mg tablet,extended 1 tab PO BID 01/01/21 09/03/21 release 24 hr trazodone 100 mg tablet 3 tab PO BEDTIME 01/01/21 09/03/21 venlafaxine 150 mg 2 cap PO QAM 01/01/21 09/03/21 capsule,extended release 24 hr oxycodone-acetaminophen 10 mg-325 1 tab PO 06/13/21 09/03/21 mg tablet Previous Rx's Medication Instructions Recorded acetaminophen 500 mg tablet 1,000 mg PO Q6H PRN pain #30 tabs 05/24/21 (Tylenol Extra Strength) gabapentin 300 mg capsule 300 mg PO BID #30 caps 05/24/21 docusate sodium 100 mg capsule 100 mg PO BEDTIME #90 caps 09/05/21 linaclotide 290 mcg capsule 290 mcg PO QAM #30 caps 09/05/21 (Linzess) hydrochlorothiazide 25 mg tablet 25 mg PO QAM #30 tabs 10/21/21 oxycodone 5 mg tablet 5 mg PO Q6H PRN Pain (Scale Score 10/21/21 7-10) #20 tabs famotidine 20 mg tablet (Pepcid) 20 mg PO BID 7 days #14 tabs 11/12/21 hydroxyzine HCl 25 mg tablet 25 mg PO TID PRN itching 7 days 11/12/21 #21 tabs prednisone 20 mg tablet 40 mg PO DAILY 5 days #10 tabs 11/12/21 Allergies Allergy/AdvReac Type Severity Reaction Status Date / Time morphine [MORPHINE] Allergy Intermediate PALPITATIONS, Verified 11/12/21 15:59 tachicardia quetiapine [Seroquel] Allergy Unknown Unknown Verified 11/12/21 15:59 orphenadrine [ORPHENADRINE] AdvReac Intermediate RAPID Verified 11/12/21 15:59 HEART RATE Review of Systems Review of Systems: All other systems are reviewed and are negative Constitutional: Reports as per HPI and Reports no additional constitutional complaints Eyes: Reports as per HPI and Reports no additional eye complaints Reports system reviewed and no additional complaints, except as documented Cardiovascular: Reports as per HPI and Reports no additional cardiovascular complaints Respiratory: Reports as per HPI and Reports no additional respiratory complaints Gastrointestinal: Reports as per HPI and Reports no additional gastrointestinal complaints Genitourinary: Reports no additional female genitourinary complaints Musculoskeletal: Reports no additional musculoskeletal complaints Skin/Breast: Reports system reviewed and no additional complaints, except as docu Psychiatric: Reports no additional psychiatric complaints Endocrine: Reports no additional endocrine complaints Hematologic/Lymphatic: Reports no additional hematologic/lymphatic complaints Allergic/Immunologic: Reports no additional allergic/immunologic complaints Reports system reviewed and no additional complaints, except as documented and Reports Abnormal speech present [facility] Past Medical History Medical History Anxiety Asthma Chronic idiopathic constipation Depression Diabetes 1.5, managed as type 2 Diverticulosis Fibromyalgia Migraine Surgical History Gastric bypass status for obesity H/O colonoscopy History of pubovaginal sling Hx of bilateral breast reduction surgery Hx of oophorectomy Social History Social History Alcohol intake: never Patient Tobacco Use Status: Never used Tobacco Smoked in Last 30 Days: No Use of substances other than those prescribed or required for medical reasons: No Advance Directives: No Advance Directives Information Provided: Yes Gender identity: Female Physical Exam ED Vital Signs: Vital Signs - 24 hr 11/24/21 02:53 11/24/21 05:18 11/24/21 07:56 Temperature 98.4 F 98.1 F Pulse Rate 73 69 67 Respiratory Rate 16 18 24 H Blood Pressure 127/72 134/79 128/72 Pulse Oximetry 100 100 100 Oxygen Delivery Method Room Air Room Air Room Air 11/24/21 08:57 Temperature Pulse Rate 70 Respiratory Rate 30 H Blood Pressure 114/67 Pulse Oximetry 100 Oxygen Delivery Method Room Air BMI result Body Mass Index 25.7 Vital signs have been reviewed as appeared to be correct. Blood pressure normal. Heart rate normal. Respiration rate normal. Temperature normal. Oxygen saturation normal. Appearance: Alert. Anxious. No acute distress. Head: Normal external exam. Normocephalic. Atraumatic. No Ortega signs noted. No raccoon eyes noted Eyes: PERRLA. EOMI. Conjunctiva and sclera normal. Eyelids normal. ENT: TM's Normal. Pharynx normal. Uvula midline. Moist mucous membranes. No trismus noted. No drooling noted. No muffled voice noted. Neck: Normal inspection. Neck supple. FROM. No adenopathy. Thyroid Normal. No meningeal signs. No neck mass noted. CVS: Normal heart rate and rhythm. Heart sound normal. No murmurs noted. Pulses normal throughout. Respiratory: No respiratory distress. Painless inspiration. Breath sounds normal. No wheezes/rales/rhonchi noted. Chest nontender. No accessory muscle usage noted or decreased air movement noted. Abdomen: Soft and nontender. Bowel sounds normal in all 4 quadrants. No distention noted. No organomegaly noted. No visible injury noted. Back: No CVA tenderness. Full range of motion noted. Skin: Skin warm and dry. Normal skin color. Normal skin turgor. No rashes/lesions/lacerations noted. Extremities: No lower extremity edema. Extremities exhibit normal range of motion. Extremities nontender. Neuro: Oriented X 3. Anxious Cranial nerve exam: II-XII are grossly intact No motor deficit. No sensory deficit. Reflexes normal. Course Course Course Narrative: 61-year-old female appear very anxious came in complaining of itching, patient has no psychiatric symptoms at this point no SI or HI or hallucination, patient's symptoms improved after was given Ativan in the ED. Her reassessing the patient has a patent airway, no stridor, no rash or hives. Patient now is asking for foods with good appetite will discharge the patient to follow-up with PCP. Medical Decision Making Lab Data Lab results reviewed: Yes I reviewed the patient's lab results. Result diagrams: 11/24/21 08:01 11/24/21 08:01 Labs: Lab Results 11/24/21 11/24/21 11/24/21 Range/Units 07: 08:01 08:01 WBC 10.6 (4.8-10.8) X10*3/uL RBC 4.04 L (4.20-5.50) X10*6/uL Hgb 11.0 L (12.0-16.0) g/dl Hct 33.9 L (37.0-47.0) % MCV 83.9 (80.0-98.0) fL MCH 27.2 (27.0-33.0) pg MCHC 32.4 (31.0-35.0) g/dl RDW 14.7 (11.0-16.0) % Plt Count 268 (160-400) X10*3/uL MPV 9.7 (9.4-12.3) fL Immature Gran % (Auto) 0.7 H (0.0-0.4) % Neut % (Auto) 56.9 (45-73) % Lymph % (Auto) 31.4 (20-40) % Mills % (Auto) 9.0 (2-11) % Eos % (Auto) 1.8 (0-4) % Baso % (Auto) 0.2 (0-2) % Lymph # (Auto) 3.3 (1.2-4.9) X10*3/uL Mills # (Auto) 1.0 (0.1-1.2) X10*3/uL Eos # (Auto) 0.2 (0.0-0.4) X10*3/uL Baso # (Auto) 0.0 (0.0-0.2) X10*3/uL Abs Immat Gran (auto) 0.07 H (0.00-0.03) X10*3/uL Absolute Neuts (auto) 6.0 (2.0-8.3) x10*3/uL Absolute Nucleated RBC 0.000 (0.0-0.012) X10*3/uL Nucleated RBC % (auto) 0.0 (0.0-0.2) /100WBC Sodium 135 (135-145) mmol/L Potassium 4.6 (3.3-5.1) mmol/L Chloride 104 (96-108) mmol/L Carbon Dioxide 23 (22-29) mmol/L Anion Gap 13 (12-20) BUN 21 H (9-16) mg/dL Creatinine 0.79 (0.5-1.4) mg/dL Estim Creat Clear Calc 75.4 Estimated GFR > 60 POC Glucose 68 (60-115) mg/dL Random Glucose 89 (60-115) mg/dL Calcium 9.0 (8.4-10.2) mg/dL Total Bilirubin 0.3 (0.0-1.0) mg/dL Direct Bilirubin < 0.2 (0.0-0.5) mg/dL AST 19 D (5-31) U/L ALT 19 (0-31) U/L Alkaline Phosphatase 59 (39-117) U/L Total Protein 6.8 (6.5-8.0) g/dL Albumin 4.2 (3.5-5.0) g/dL Lipase 31 (8-78) U/L Discharge Plan Discharge Clinical Impression: Anxiety Patient Disposition: Home, Self-Care Prescriptions: No Action metformin 500 mg tablet extended release 24 hr 1 tab PO BID clonazepam [Klonopin] 1 mg tablet 1 tab PO TID PRN (Reason: Anxiety) venlafaxine 150 mg capsule,extended release 24hr 2 cap PO QAM amlodipine 5 mg tablet 1 tab PO DAILY trazodone 100 mg tablet 3 tab PO BEDTIME lisinopril 30 mg tablet 1 tab PO DAILY gabapentin 300 mg capsule 1 cap PO BEDTIME albuterol sulfate 90 mcg/actuation HFA aerosol inhaler 2 PO Q4-6H PRN (Reason: Wheezing) fluticasone propionate 50 mcg/actuation spray,suspension 1 - 2 spray intranasal DAILY PRN (Reason: Nasal Congestion) aripiprazole 20 mg tablet 1 tab PO DAILY hydrochlorothiazide 12.5 mg tablet 1 tab PO DAILY oxycodone 5 mg tablet 5 mg PO Q6H PRN (Reason: Pain (Scale Score 7-10)) Qty: 20 0RF Rx Instructions: Partial Fill upon patient request. hydrochlorothiazide 25 mg tablet 25 mg PO QAM Qty: 30 0RF gabapentin 300 mg capsule 300 mg PO BID Qty: 30 0RF acetaminophen [Tylenol Extra Strength] 500 mg tablet 1,000 mg PO Q6H PRN (Reason: pain) Qty: 30 0RF prednisone 20 mg tablet 40 mg PO DAILY 5 Days Qty: 10 0RF famotidine [Pepcid] 20 mg tablet 20 mg PO BID 7 Days Qty: 14 0RF hydroxyzine HCl 25 mg tablet 25 mg PO TID PRN (Reason: itching) 7 Days Qty: 21 0RF oxycodone-acetaminophen 10-325 mg tablet 1 tab PO docusate sodium 100 mg capsule 100 mg PO BEDTIME Qty: 90 3RF Linzess 290 mcg capsule 290 mcg PO QAM Qty: 30 4RF Referrals: Elizabeth Dunn MD [Primary Care Provider] -
[2021-11-24] MEDS: diphenhydrAMINE HCL 25 MG TABLET 50 MG PO (07:54)
[2021-11-24 07:56] VITALS: BP 128/72; PULSE 67; RESP 24; TEMP 36.7; O2SAT 100
[2021-11-24 08:04] LABS: MANUAL DIFF FLAG NO
[2021-11-24 08:05] LABS: Basophils Percent Auto 0.2 % (0-2); Eosinophils Absolute Auto 0.2 X10*3/uL (0.0-0.4); Eosinophils Percent Auto 1.8 % (0-4); Hematocrit 33.9 % (37.0-47.0); Imm Gran Abs Auto 0.07 X10*3/uL (0.00-0.03); Imm Gran Pct Auto 0.7 % (0.0-0.4); Lymphocytes Absolute Auto 3.3 X10*3/uL (1.2-4.9); Lymphocytes Percent Auto 31.4 % (20-40); Mean Corpuscular HGB Conc 32.4 g/dl (31.0-35.0); Mean Corpuscular Hemoglobin 27.2 pg (27.0-33.0); Mean Corpuscular Volume 83.9 fL (80.0-98.0); Mean Platelet Volume 9.7 fL (9.4-12.3); Neutrophils Percent Auto 56.9 % (45-73); Platelet Count 268 X10*3/uL (160-400); Red Blood Count 4.04 X10*6/uL (4.20-5.50); Red Cell Distribution Width 14.7 % (11.0-16.0); White Blood Count 10.6 X10*3/uL (4.8-10.8)
[2021-11-24 08:27] LABS: Alanine Aminotransferase 19 U/L (0-31); Albumin Level 4.2 g/dL (3.5-5.0); Alkaline Phosphatase 59 U/L (39-117); Anion Gap 13 (12-20); Aspartate Amino Transferase 19 U/L (5-31); Bilirubin Direct < 0.2 mg/dL (0.0-0.5); Bilirubin Total 0.3 mg/dL (0.0-1.0); Blood Urea Nitrogen 21 mg/dL (9-16); Carbon Dioxide 23 mmol/L (22-29); Chloride 104 mmol/L (96-108); Creatinine Clr Calc Pharmacy 75.4; Estimated Glomerular Filt Rate > 60; Glucose Random 89 mg/dL (60-115); Lipase 31 U/L (8-78); Potassium 4.6 mmol/L (3.3-5.1); Sodium 135 mmol/L (135-145); Total Protein 6.8 g/dL (6.5-8.0)
[2021-11-24] MEDS: LORazepam 1 MG TABLET PO (08:56)
[2021-11-24 08:57] VITALS: BP 114/67; PULSE 70; RESP 30; O2SAT 100
--- NOTE | 2021-11-24 09:10 | PC.NURSE ---
patient came out of room yelling I cant breathe . patient assisted back to bed, vitals updated, o2 sating at 100%. patient hyperventilating. MD made aware. order for Ativan PO. patient able to swallow without difficulty. Md in to see patient. Patient resting at this time. able to somewhat calm down, encouraged patient to try and slow her breathing.
[2021-11-24 11:23] LABS: Appearance Urine CLEAR; Color Urine YELLOW; Glucose Urine UA NEG (NEG); Leukocyte Esterase Urine NEG (NEG); Nitrite Urine NEG (NEG); Urine Blood NEG (NEG); Urine Ketones NEG (NEG); Urine Protein NEG (NEG-TRACE)
[2021-11-24 11:25] LABS: UPreg QC Valid YES; Urine Pregnancy NEGATIVE (NEGATIVE)
[2021-11-24 11:34] LABS: Amphetamine Screen Urine Not Detected (Not Detect); Barbiturates, Urine Not Detected (Not Detect); Benzodiazepines Screen Urine Not Detected (Not Detect); Cannabinoid Screen Urine Not Detected (Not Detect); Cocaine Screen Urine Not Detected (Not Detect); Fentanyl, urine Not Detected (Not Detect); Opiate Screen Urine Not Detected (Not Detect); Phencyclidine Screen Urine Not Detected (Not Detect)
== END 2021-11-24 10:57 | disposition home or self-care (01) ==
PROVIDERS: Emergency Provider Emergency Medicine; PCP Internal Medicine
DX: F41.9 Anxiety disorder, unspecified (principal); E13.9 Other specified diabetes mellitus without complications; Z79.899 Other long term (current) drug therapy
CPT/HCPCS: 36415; 80048; 80076; 80307; 81003; 81025; 82947; 83690; 85025; 99283; 99284; Q0163

== ENCOUNTER → 2021-12-04 09:53 | Outpatient (BNVA) | payer MEDICAID, SELFPAY | PROVIDERS: PCP Internal Medicine; Visit Provider Internal Medicine Rheumatology | DX: M25.511 Pain in right shoulder (principal); M79.7 Fibromyalgia; M79.89 Other specified soft tissue disorders; M19.011 Primary osteoarthritis, right shoulder | CPT/HCPCS: 99202 ==

== ENCOUNTER → 2021-12-05 12:53 | Outpatient (BNVA) | payer MEDICAID, SELFPAY | PROVIDERS: PCP Internal Medicine; Visit Provider Nurse Practitioner Family | DX: K59.04 Chronic idiopathic constipation (principal); R10.12 Left upper quadrant pain; Z79.899 Other long term (current) drug therapy | CPT/HCPCS: 99212 ==

== ENCOUNTER → 2021-12-27 10:45 | Outpatient (BNVA) | payer MEDICAID, SELFPAY | PROVIDERS: PCP Internal Medicine | DX: R39.14 Feeling of incomplete bladder emptying (principal) | CPT/HCPCS: 51798; 99202 ==

== ENCOUNTER → 2022-01-07 12:34 | Outpatient (BNVA) | payer MEDICAID, SELFPAY | PROVIDERS: PCP Internal Medicine; Visit Provider Orthopaedic Surgery | DX: M19.011 Primary osteoarthritis, right shoulder (principal); M79.7 Fibromyalgia | CPT/HCPCS: 99212 ==

== ENCOUNTER 2022-01-23 14:55 | Emergency (ER) | payer MEDICAID, SELFPAY ==
[2022-01-23 15:08] VITALS: BP 96/68; PULSE 66; RESP 18; TEMP 36.8; O2SAT 100; BMI 22.7
--- NOTE | 2022-01-23 15:11 | ECG_ITS ---
Test Reason : dizziness Blood Pressure : / mmHG Vent. Rate : 072 BPM Atrial Rate : 072 BPM P-R Int : 198 ms QRS Dur : 104 ms QT Int : 428 ms P-R-T Axes : 049 -21 041 degrees QTc Int : 468 ms Normal sinus rhythm Low voltage QRS Incomplete right bundle branch block Cannot rule out Anterior infarct (cited on or before 14-MAY-2021) Abnormal ECG When compared with ECG of 18-JUL-2021 13:26, No significant change was found Referred By: Generic ED Physician Electronically Signed By:KALYANI PANDA
[2022-01-23 16:00] LABS: Hematocrit 32.6 % (37.0-47.0); Hemoglobin 10.3 g/dl (12.0-16.0); Mean Corpuscular HGB Conc 31.6 g/dl (31.0-35.0); Mean Corpuscular Hemoglobin 27.4 pg (27.0-33.0); Mean Corpuscular Volume 86.7 fL (80.0-98.0); Platelet Count 263 X10*3/uL (160-400); Red Blood Count 3.76 X10*6/uL (4.20-5.50); Red Cell Distribution Width 14.5 % (11.0-16.0)
[2022-01-23 16:15] LABS: Anion Gap 16 (12-20); Blood Urea Nitrogen 25 mg/dL (9-16); Calcium 9.1 mg/dL (8.4-10.2); Carbon Dioxide 26 mmol/L (22-29); Chloride 103 mmol/L (96-108); Creatinine Clr Calc Pharmacy 74.5; Estimated Glomerular Filt Rate > 60; Glucose Random 128 mg/dL (60-115); Potassium 4.7 mmol/L (3.3-5.1); Sodium 140 mmol/L (135-145)
[2022-01-23 16:24] LABS: Troponin-I High Sensitivity < 3.5 ng/L (<3.5-17.0)
[2022-01-23 20:03] VITALS: BP 107/71; PULSE 62; RESP 17; O2SAT 100
--- NOTE | 2022-01-23 21:09 | ED_ITS ---
HPI - Recheck/Abnormal Lab/Rx General Chief Complaint: Recheck/Abnormal Lab/Rx Stated Complaint: Low Blood Pressure Low Sugar Time Seen by Provider: 01/23/22 20:55 History of Present Illness HPI narrative: Patient is a 61-year-old female with a history migraine headache fibromyalgia depression. Presented today feeling weak generalized malaise. Patient denies any new medication denies taking overdose of any of her medications. There has been no bloody stool. No coughing or congestion or upper respiratory symptoms. Noted to have a low blood pressure. Patient denies any focal weakness. Patient from home. Positive decreased p.o. intake. Positive headache similar to previous bouts of migraine. Related Data Home Medications Medication Instructions Recorded Confirmed albuterol sulfate 90 mcg/actuation 2 PO Q4-6H PRN Wheezing 01/01/21 12/04/21 aerosol inhaler amlodipine 5 mg tablet 1 tab PO DAILY 01/01/21 12/04/21 aripiprazole 20 mg tablet 1 tab PO DAILY 01/01/21 12/04/21 clonazepam 1 mg tablet (Klonopin) 1 tab PO TID PRN Anxiety 01/01/21 12/04/21 fluticasone propionate 50 1 - 2 spray intranasal DAILY PRN 01/01/21 12/04/21 mcg/actuation nasal Nasal Congestion spray,suspension hydrochlorothiazide 12.5 mg tablet 1 tab PO DAILY 01/01/21 09/03/21 lisinopril 30 mg tablet 1 tab PO DAILY 01/01/21 12/04/21 metformin 500 mg tablet,extended 1 tab PO BID 01/01/21 12/04/21 release 24 hr trazodone 100 mg tablet 3 tab PO BEDTIME 01/01/21 12/04/21 venlafaxine 150 mg 2 cap PO QAM 01/01/21 12/04/21 capsule,extended release 24 hr oxycodone-acetaminophen 10 mg-325 1 tab PO 06/13/21 09/03/21 mg tablet amitriptyline 100 mg tablet 100 mg PO BEDTIME 12/05/21 gabapentin 100 mg capsule 100 mg PO BEDTIME itch 12/05/21 melatonin 5 mg tablet 5 mg PO BEDTIME PRN 12/05/21 triamcinolone acetonide 0.1 % appl topical BID 12/05/21 topical cream acetaminophen 650 mg 650 mg PO Q6H PRN fever 12/27/21 tablet,extended release blood sugar diagnostic (FreeStyle #10 ea 12/27/21 Lite Strips) [id number] 1 cap PO Q6H PRN 12/27/21 50 mg-325 mg-40 mg capsule cyclobenzaprine 10 mg tablet 10 mg PO BID 12/27/21 linaclotide 290 mcg capsule 290 mcg PO QAM 12/27/21 (Linzess) Previous Rx's Medication Instructions Recorded acetaminophen 500 mg tablet 1,000 mg PO Q6H PRN pain #30 tabs 05/24/21 (Tylenol Extra Strength) gabapentin 300 mg capsule 300 mg PO BID #30 caps 05/24/21 docusate sodium 100 mg capsule 100 mg PO BEDTIME #90 caps 09/05/21 oxycodone 5 mg tablet 5 mg PO Q6H PRN Pain (Scale Score 10/21/21 7-10) #20 tabs famotidine 20 mg tablet (Pepcid) 20 mg PO BID 7 days #14 tabs 11/12/21 hydroxyzine HCl 25 mg tablet 25 mg PO TID PRN itching 7 days 11/12/21 #21 tabs prucalopride 2 mg tablet 2 mg PO DAILY 30 days #30 tabs 12/25/21 Allergies Allergy/AdvReac Type Severity Reaction Status Date / Time morphine [MORPHINE] Allergy Intermediate PALPITATIONS, Verified 01/07/22 13:02 tachicardia quetiapine [Seroquel] Allergy Unknown Unknown Verified 01/07/22 13:02 orphenadrine [ORPHENADRINE] AdvReac Intermediate RAPID Verified 01/07/22 13:02 HEART RATE Review of Systems Review of Systems: No coughing or congestion or respiratory symptoms. No diaphoresis. All system reviewed otherwise negative Yes all other systems are reviewed and are negative PMFSH Past Medical History Attestation statement: The following information was validated with the patient. Medical History Anxiety Asthma Chronic idiopathic constipation Depression Diabetes 1.5, managed as type 2 Diverticulosis Fibromyalgia Migraine Surgical History Gastric bypass status for obesity H/O colonoscopy History of pubovaginal sling Hx of bilateral breast reduction surgery Hx of oophorectomy Social History Social History Household Members Other:: lives alone Housing: Condominium Alcohol intake: never Patient Tobacco Use Status: Never used Tobacco Advance Directives: No Advance Directives Information Provided: No service: No Current occupational status: disabled Gender identity: Female Physical Exam Vital Signs: Vital Signs: Last Vital Signs Temp 97.7 F 01/23/22 21:58 Pulse 57 01/23/22 22:12 Resp 16 01/23/22 21:58 BP 102/68 01/23/22 22:12 Pulse Ox 98 01/23/22 21:58 O2 Del Method 01/23/22 21:58 BMI result Body Mass Index 22.7 Appearance: Alert. Oriented X3. No acute distress. Eyes: Pupils equal, round and reactive to light. ENT: Pharynx normal. Neck: Normal inspection. Neck supple. No lymph nodes noted. No crepitus CVS: Normal heart rate and rhythm. Pulses normal. Normal S1 and S2 Respiratory: No respiratory distress. Breath sounds normal. No Wheezing. No rales Abdomen: Soft and nontender. No rigidity. No distention. good BS x4 Skin: Skin warm and dry. Normal skin color. Normal skin turgor. Extremities: No lower extremity edema. Neurovascular intact to all extremities. No Lacerations. No Rash Neuro: Oriented X 3. No motor deficit. No sensory deficit. Moving all extermities. No slurred speech MDM - Recheck/Abnormal Lab/Rx MDM Narrative Medical decision making narrative: Patient's symptoms improved with IV fluids. Electrolytes unremarkable. Hemoglobin normal. Headache resolved after NSAIDs. Will discharge patient h ome. In stable condition. Medical Records Attestation: I reviewed the patient's medical records. Lab Data Attestation: I reviewed the patient's lab results. Result diagrams: 01/23/22 15:55 01/23/22 15:55 Labs: Lab Results 01/23/22 01/23/22 01/23/22 Range/Units 15:54 15:55 15:55 WBC 8.0 (4.8-10.8) X10*3/uL RBC 3.76 L (4.20-5.50) X10*6/uL Hgb 10.3 L (12.0-16.0) g/dl Hct 32.6 L (37.0-47.0) % MCV 86.7 (80.0-98.0) fL MCH 27.4 (27.0-33.0) pg MCHC 31.6 (31.0-35.0) g/dl RDW 14.5 (11.0-16.0) % Plt Count 263 (160-400) X10*3/uL MPV 10.0 (9.4-12.3) fL Absolute Nucleated RBC 0.000 (0.0-0.012) X10*3/uL Nucleated RBC % (auto) 0.0 (0.0-0.2) /100WBC Sodium 140 (135-145) mmol/L Potassium 4.7 (3.3-5.1) mmol/L Chloride 103 (96-108) mmol/L Carbon Dioxide 26 (22-29) mmol/L Anion Gap 16 (12-20) BUN 25 H (9-16) mg/dL Creatinine 0.85 (0.5-1.4) mg/dL Estim Creat Clear Calc 74.5 Estimated GFR > 60 Random Glucose 128 H (60-115) mg/dL Calcium 9.1 (8.4-10.2) mg/dL Troponin I High Sens < 3.5 (<3.5-17.0) ng/L Discharge Plan Discharge Clinical Impression: Migraine, Acute dehydration Patient Disposition: Home, Self-Care Instructions: Migraine Headache (ED), Dehydration (ED) Prescriptions: No Action Motegrity 2 mg tablet 2 mg PO DAILY 30 Days Qty: 30 3RF metformin 500 mg tablet extended release 24 hr 1 tab PO BID clonazepam [Klonopin] 1 mg tablet 1 tab PO TID PRN (Reason: Anxiety) venlafaxine 150 mg capsule,extended release 24hr 2 cap PO QAM amlodipine 5 mg tablet 1 tab PO DAILY trazodone 100 mg tablet 3 tab PO BEDTIME lisinopril 30 mg tablet 1 tab PO DAILY albuterol sulfate 90 mcg/actuation HFA aerosol inhaler 2 PO Q4-6H PRN (Reason: Wheezing) fluticasone propionate 50 mcg/actuation spray,suspension 1 - 2 spray intranasal DAILY PRN (Reason: Nasal Congestion) aripiprazole 20 mg tablet 1 tab PO DAILY hydrochlorothiazide 12.5 mg tablet 1 tab PO DAILY oxycodone 5 mg tablet 5 mg PO Q6H PRN (Reason: Pain (Scale Score 7-10)) Qty: 20 0RF Rx Instructions: Partial Fill upon patient request. gabapentin 300 mg capsule 300 mg PO BID Qty: 30 0RF acetaminophen [Tylenol Extra Strength] 500 mg tablet 1,000 mg PO Q6H PRN (Reason: pain) Qty: 30 0RF famotidine [Pepcid] 20 mg tablet 20 mg PO BID 7 Days Qty: 14 0RF hydroxyzine HCl 25 mg tablet 25 mg PO TID PRN (Reason: itching) 7 Days Qty: 21 0RF gabapentin 100 mg capsule 100 mg PO BEDTIME amitriptyline 100 mg tablet 100 mg PO BEDTIME triamcinolone acetonide 0.1 % cream topical BID melatonin 5 mg tablet 5 mg PO BEDTIME PRN oxycodone-acetaminophen 10-325 mg tablet 1 tab PO docusate sodium 100 mg capsule 100 mg PO BEDTIME Qty: 90 3RF acetaminophen 650 mg tablet extended release 650 mg PO Q6H PRN (Reason: fever) cyclobenzaprine 10 mg tablet 10 mg PO BID piilurxehb-plvtttbkrylle-tham 50-325-40 mg capsule 1 cap PO Q6H PRN Linzess 290 mcg capsule 290 mcg PO QAM (DME) FreeStyle Lite Strips Strip See Rx Instructions Not Applicable BID Qty: 10 Rx Instructions: As directed Referrals: Elizabeth Dunn MD [Primary Care Provider] -
[2022-01-23] MEDS: Ketorolac Tromethamine 30 MG/ML VIAL IVPUSH (21:44)
[2022-01-23] MEDS: 0.9 % Sodium Chloride 1,000 ML 999 ML IV (21:45)
[2022-01-23 21:58] VITALS: BP 111/62; PULSE 55; RESP 16; TEMP 36.5; O2SAT 98
[2022-01-23 22:10] VITALS: BP 115/70; PULSE 53
[2022-01-23 22:11] VITALS: BP 122/70; PULSE 52
[2022-01-23 22:12] VITALS: BP 102/68; PULSE 57
[2022-01-24] VITALS: BP 104/57; PULSE 64; RESP 16; TEMP 36.6; O2SAT 98
== END 2022-01-24 00:13 | disposition home or self-care (01) ==
PROVIDERS: Emergency Provider Emergency Medicine Emergency Medical Services; PCP Internal Medicine
DX: G43.909 Migraine, unspecified, not intractable, without status migrainosus (principal); E86.0 Dehydration; R42 Dizziness and giddiness; R79.89 Other specified abnormal findings of blood chemistry; Z79.899 Other long term (current) drug therapy
CPT/HCPCS: 36415; 80048; 84484; 85027; 93005; 96374; 99284; J1885

== ENCOUNTER 2022-01-24 11:31 | Emergency (ER) | payer MEDICAID, SELFPAY ==
[2022-01-24 11:36] VITALS: BP 112/70; PULSE 66; RESP 18; TEMP 36.8; O2SAT 98; BMI 25.6
[2022-01-24 13:02] LABS: MANUAL DIFF FLAG NO
[2022-01-24 13:03] LABS: Basophils Percent Auto 0.4 % (0-2); Eosinophils Absolute Auto 0.2 X10*3/uL (0.0-0.4); Eosinophils Percent Auto 2.7 % (0-4); Hematocrit 32.8 % (37.0-47.0); Hemoglobin 10.1 g/dl (12.0-16.0); Imm Gran Abs Auto 0.06 X10*3/uL (0.00-0.03); Imm Gran Pct Auto 0.8 % (0.0-0.4); Lymphocytes Absolute Auto 2.1 X10*3/uL (1.2-4.9); Lymphocytes Percent Auto 28.2 % (20-40); Mean Corpuscular HGB Conc 30.8 g/dl (31.0-35.0); Mean Corpuscular Hemoglobin 26.9 pg (27.0-33.0); Mean Corpuscular Volume 87.2 fL (80.0-98.0); Mean Platelet Volume 9.8 fL (9.4-12.3); Monocytes Absolute Auto 0.8 X10*3/uL (0.1-1.2); Monocytes Percent Auto 10.6 % (2-11); Neutrophils Absolute Auto 4.2 x10*3/uL (2.0-8.3); Neutrophils Percent Auto 57.3 % (45-73); Platelet Count 248 X10*3/uL (160-400); Red Blood Count 3.76 X10*6/uL (4.20-5.50); Red Cell Distribution Width 14.4 % (11.0-16.0); White Blood Count 7.3 X10*3/uL (4.8-10.8)
[2022-01-24 13:07] LABS: Appearance Urine Clear; Color Urine Yellow; Glucose Urine UA Negative (Negative); Leukocyte Esterase Urine Large (3+) (Negative); Nitrite Urine Negative (Negative); PH 5.5 (5.0-9.0); Specific Gravity - Urine 1.015 (1.005-1.025); UMIC TRIGGER UACC YES; Urine Blood Negative (Negative); Urine Ketones Negative (Negative); Urine Protein Negative (Neg-Trace)
[2022-01-24 13:11] LABS: Bacteria Urine None Seen (None Seen); Hyaline Casts Urine 0-2 /LPF (0-2); RBC Urine 0-2 /HPF (0-2); UACC Culture Trigger YES
[2022-01-24 13:17] LABS: Anion Gap 14 (12-20); Blood Urea Nitrogen 28 mg/dL (9-16); Calcium 8.9 mg/dL (8.4-10.2); Carbon Dioxide 27 mmol/L (22-29); Chloride 103 mmol/L (96-108); Creatinine Clr Calc Pharmacy 75.1; Estimated Glomerular Filt Rate > 60; Glucose Random 81 mg/dL (60-115); Potassium 5.6 mmol/L (3.3-5.1); Sodium 138 mmol/L (135-145)
[2022-01-24 18:49] VITALS: BP 120/65; PULSE 59; RESP 16; TEMP 36.4; O2SAT 100
== END 2022-01-24 21:44 | disposition left against medical advice (07) ==
LOC: HO.ED 21:36
PROVIDERS: Emergency Provider Emergency Medicine; PCP Internal Medicine
DX: R42 Dizziness and giddiness (principal); Z79.899 Other long term (current) drug therapy
CPT/HCPCS: 36415; 80048; 81001; 85025; 87086; 87147; 99282; 99283

== ENCOUNTER → 2022-01-31 13:09 | Outpatient (BNVA) | payer MEDICAID, SELFPAY | PROVIDERS: PCP Internal Medicine; Visit Provider Surgery Vascular Surgery | DX: I83.11 Varicose veins of right lower extremity with inflammation (principal) | CPT/HCPCS: 99202 ==

== ENCOUNTER 2022-02-04 09:35 | Outpatient (REF) | payer MEDICAID, SELFPAY ==
[2022-02-04 10:24] LABS: Anion Gap 16 (12-20); Blood Urea Nitrogen 23 mg/dL (9-16); Carbon Dioxide 26 mmol/L (22-29); Chloride 103 mmol/L (96-108); Estimated Glomerular Filt Rate > 60; Potassium 4.9 mmol/L (3.3-5.1); Sodium 140 mmol/L (135-145)
[2022-02-12 11:51] LABS: Cortisol, Free 0.15 mcg/dL
== END 2022-02-04 09:36 | disposition home or self-care (01) ==
LOC: HO.LAB 09:35
PROVIDERS: PCP Internal Medicine; Visit Provider Internal Medicine Nephrology
DX: I10 Essential (primary) hypertension (principal)
CPT/HCPCS: 36415; 80051; 82310; 82530; 82565; 84520

== ENCOUNTER 2022-02-13 05:29 | Emergency (ER) | payer MEDICAID, SELFPAY ==
--- NOTE | ~2022-02-13 | XR_ITS ---
EXAMINATION: 1. RADIOGRAPHS RIGHT SHOULDER 2. RADIOGRAPHS RIGHT ELBOW CLINICAL INFORMATION: Pain COMPARISON: Right shoulder x-rays 11/05/2021 TECHNIQUE: 4 views of the right shoulder and 3 views of the right elbow were obtained. FINDINGS: Right shoulder: Visualized portion of proximal right humerus demonstrate no fracture. Humeral head demonstrates good articulation with the glenoid fossa. Mild to moderate degenerative changes of the glenohumeral and acromioclavicular joint. Visualized right-sided ribs and lung parenchyma are unremarkable. Degenerative and postsurgical changes of the visualized spine. Right elbow: No fracture or dislocation of the right elbow. No gross elbow joint effusion. Soft tissue swelling overlies the olecranon process. There is a small osteophyte off the olecranon process. No radiopaque foreign body. XR/XR elbow RT min 3V IMPRESSION: -Degenerative changes of the right shoulder and elbow without fracture or dislocation. -Soft tissue swelling overlying the olecranon process, nonspecific and possibly partially related to patient body habitus.
--- NOTE | ~2022-02-13 | XR_ITS ---
EXAMINATION: 1. RADIOGRAPHS RIGHT SHOULDER 2. RADIOGRAPHS RIGHT ELBOW CLINICAL INFORMATION: Pain COMPARISON: Right shoulder x-rays 11/05/2021 TECHNIQUE: 4 views of the right shoulder and 3 views of the right elbow were obtained. FINDINGS: Right shoulder: Visualized portion of proximal right humerus demonstrate no fracture. Humeral head demonstrates good articulation with the glenoid fossa. Mild to moderate degenerative changes of the glenohumeral and acromioclavicular joint. Visualized right-sided ribs and lung parenchyma are unremarkable. Degenerative and postsurgical changes of the visualized spine. Right elbow: No fracture or dislocation of the right elbow. No gross elbow joint effusion. Soft tissue swelling overlies the olecranon process. There is a small osteophyte off the olecranon process. No radiopaque foreign body. XR/XR shoulder RT min 2V IMPRESSION: -Degenerative changes of the right shoulder and elbow without fracture or dislocation. -Soft tissue swelling overlying the olecranon process, nonspecific and possibly partially related to patient body habitus.
[2022-02-13 05:46] VITALS: BP 115/59; PULSE 64; RESP 20; TEMP 36.8; O2SAT 96; BMI 25.4
--- NOTE | 2022-02-13 07:32 | ED.EXTPRO ---
HPI - Extremity Problem General Chief complaint: Extremity Injury, Upper Stated complaint: shoulder pain, arm swelling, got injection from dr Time Seen by Provider: 02/13/22 07:32 Source: patient and old records reviewed Mode of arrival: ambulatory Limitations: no limitations History of Present Illness HPI Narrative: 61 yo female with hx of fibromyalgia, depression, asthma, migraines here with c/o R shoulder pain that is chronic and she normally receives shots in the joint. Comes to the ED with c/o pain in the shoulder since injection 2 months ago - requesting xrays of R arm. Also requesting pain medications because the 7.5mg of oxycodone she is on is not helping. She notes no new injuries but it is getting harder for her to put her clothes on as well as doing chores around the house. She has appointment with pain management in 6 days on 02/19 Complaint: extremity pain Onset (ago): month(s) (2) Pain Consistency: constant Location: right and upper extremity Quality: aching and constant Radiation: distal Relieving factors: immobilization Exacerbating factors: range of motion and palpation Associated symptoms: denies other symptoms Context: other (after procedure 2 months ago) Related Data Home Medications Medication Instructions Recorded Confirmed albuterol sulfate 90 mcg/actuation 2 PO Q4-6H PRN Wheezing 01/01/21 12/04/21 aerosol inhaler amlodipine 5 mg tablet 1 tab PO DAILY 01/01/21 12/04/21 aripiprazole 20 mg tablet 1 tab PO DAILY 01/01/21 12/04/21 clonazepam 1 mg tablet (Klonopin) 1 tab PO TID PRN Anxiety 01/01/21 12/04/21 fluticasone propionate 50 1 - 2 spray intranasal DAILY PRN 01/01/21 12/04/21 mcg/actuation nasal Nasal Congestion spray,suspension hydrochlorothiazide 12.5 mg tablet 1 tab PO DAILY 01/01/21 09/03/21 lisinopril 30 mg tablet 1 tab PO DAILY 01/01/21 12/04/21 metformin 500 mg tablet,extended 1 tab PO BID 01/01/21 12/04/21 release 24 hr trazodone 100 mg tablet 3 tab PO BEDTIME 01/01/21 12/04/21 venlafaxine 150 mg 2 cap PO QAM 01/01/21 12/04/21 capsule,extended release 24 hr oxycodone-acetaminophen 10 mg-325 1 tab PO 06/13/21 09/03/21 mg tablet amitriptyline 100 mg tablet 100 mg PO BEDTIME 12/05/21 gabapentin 100 mg capsule 100 mg PO BEDTIME itch 12/05/21 melatonin 5 mg tablet 5 mg PO BEDTIME PRN 12/05/21 triamcinolone acetonide 0.1 % appl topical BID 12/05/21 topical cream acetaminophen 650 mg 650 mg PO Q6H PRN fever 12/27/21 tablet,extended release blood sugar diagnostic (FreeStyle #10 ea 12/27/21 Lite Strips) dkycrgrdrt-apmlojzjsarav-hdgesxts 1 cap PO Q6H PRN 12/27/21 50 mg-325 mg-40 mg capsule cyclobenzaprine 10 mg tablet 10 mg PO BID 12/27/21 linaclotide 290 mcg capsule 290 mcg PO QAM 12/27/21 (Linzess) Previous Rx's Medication Instructions Recorded acetaminophen 500 mg tablet 1,000 mg PO Q6H PRN pain #30 tabs 05/24/21 (Tylenol Extra Strength) gabapentin 300 mg capsule 300 mg PO BID #30 caps 05/24/21 docusate sodium 100 mg capsule 100 mg PO BEDTIME #90 caps 09/05/21 oxycodone 5 mg tablet 5 mg PO Q6H PRN Pain (Scale Score 10/21/21 7-10) #20 tabs famotidine 20 mg tablet (Pepcid) 20 mg PO BID 7 days #14 tabs 11/12/21 hydroxyzine HCl 25 mg tablet 25 mg PO TID PRN itching 7 days 11/12/21 #21 tabs prucalopride 2 mg tablet 2 mg PO DAILY 30 days #30 tabs 12/25/21 diclofenac sodium 1 % topical gel 2 g topical QID #100 grams 02/13/22 (Voltaren Arthritis Pain) lidocaine 5 % topical patch 1 patch topical DAILY #30 ea 02/13/22 Allergies Allergy/AdvReac Type Severity Reaction Status Date / Time morphine [MORPHINE] Allergy Intermediate PALPITATIONS, Verified 02/13/22 05:46 tachicardia quetiapine [Seroquel] Allergy Unknown Unknown Verified 02/13/22 05:46 orphenadrine [ORPHENADRINE] AdvReac Intermediate RAPID Verified 02/13/22 05:46 HEART RATE Review of Systems Review of Systems: Constitutional : No Fever, No Chills ENT/Mouth : No Ear Pain, No Hoarseness, No sore throat Eyes: No Eye Pain, No Swelling, No Redness, No Foreign Body Cardiovascular : No Chest Pain, No SOB Respiratory : No Cough, No Dyspnea Gastrointestinal : No Nausea, No Vomiting, No Diarrhea, No abdominal Pain Genitourinary : No Dysuria, No Hematuria Musculoskeletal : positive joint pain, pos Myalgias, No Joint Swelling Skin : No Skin lacerations, No rash Neuro : No Weakness, No Numbness, No Loss of Consciousness, No Dizziness, No Headache PMFSH Past Medical History Attestation statement: The following information was validated with the patient. Medical History Anxiety Asthma Chronic idiopathic constipation Depression Diabetes 1.5, managed as type 2 Diverticulosis Fibromyalgia Migraine Surgical History Gastric bypass status for obesity H/O colonoscopy History of pubovaginal sling Hx of bilateral breast reduction surgery Hx of oophorectomy Social History Social History Household Members Other:: lives alone Housing: Condominium Alcohol intake: never Patient Tobacco Use Status: Never used Tobacco Advance Directives: No Advance Directives Information Provided: No service: No Current occupational status: disabled Gender identity: Female Physical Exam Vital Signs: Vital Signs: Last Vital Signs Temp 98.2 F 02/13/22 05:46 Pulse 64 02/13/22 05:46 Resp 20 02/13/22 05:46 BP 115/59 L 02/13/22 05:46 Pulse Ox 96 02/13/22 05:46 O2 Del Method 02/13/22 05:46 BMI result Body Mass Index 25.4 Appearance: Alert. Oriented X3. No acute distress. Eyes: Pupils equal, round and reactive to light. ENT: Pharynx normal. Neck: Normal inspection. Neck supple. CVS: Pulses normal. Respiratory: No respiratory distress. Abdomen: atraumatic Skin: Skin warm and dry. Normal skin color. Extremities: No lower extremity edema. R shoulder elbow ttp no swelling / erythema/ warmth distal NV intact Neuro: Oriented X 3. No motor deficit. No sensory deficit. Course Course Course Narrative: xrays no acute findings stable for DC MDM - Extremity (Nontraumatic) MDM Narrative Medical decision making narrative: 61 yo female with hx of fibromyalgia, depression, asthma, migraines here with c/o R shoulder pain that is chronic here without signs of infection and she is NV intact - patinet requesting xrays though low suspicion for fracture. Requesting injections of pain medications though I am going to stick with oral pain medications here but no Rx. She is on chronic oxycodone. She has pain clinic appointment on 02/19. Discharge Plan Discharge Clinical Impression: Arthralgia Qualifiers: Joint pain location: shoulder Laterality: right Qualified Code(s): M25.511 - Pain in right shoulder Patient Disposition: Home, Self-Care Instructions: Arthralgia (ED), Arm Pain (ED) Additional Instructions: return to ED for any worsening symptoms or concerns PLEASE FOLLOW UP WITH YOUR PAIN DOCTOR ON 02/19 SCHEDULED Right shoulder: Visualized portion of proximal right humerus demonstrate no fracture. Humeral head demonstrates good articulation with the glenoid fossa. Mild to moderate degenerative changes of the glenohumeral and acromioclavicular joint. Visualized right-sided ribs and lung parenchyma are unremarkable. Degenerative and postsurgical changes of the visualized spine. Right elbow: No fracture or dislocation of the right elbow. No gross elbow joint effusion. Soft tissue swelling overlies the olecranon process. There is a small osteophyte off the olecranon process. No radiopaque foreign body. XR/XR elbow RT min 3V IMPRESSION: -Degenerative changes of the right shoulder and elbow without fracture or dislocation. -Soft tissue swelling overlying the olecranon process, nonspecific and possibly partially related to patient body habitus. Prescriptions: New lidocaine 5 % adhesive patch,medicated 1 patch topical DAILY Qty: 30 0RF Rx Instructions: leave on most painful area for up to 12 hrs diclofenac sodium [Voltaren Arthritis Pain] 1 % gel 2 g topical QID Qty: 100 0RF Rx Instructions: apply to single elbow, wrist or hand; for hand includes palm/fingers/back of hand No Action Motegrity 2 mg tablet 2 mg PO DAILY 30 Days Qty: 30 3RF metformin 500 mg tablet extended release 24 hr 1 tab PO BID clonazepam [Klonopin] 1 mg tablet 1 tab PO TID PRN (Reason: Anxiety) venlafaxine 150 mg capsule,extended release 24hr 2 cap PO QAM amlodipine 5 mg tablet 1 tab PO DAILY trazodone 100 mg tablet 3 tab PO BEDTIME lisinopril 30 mg tablet 1 tab PO DAILY albuterol sulfate 90 mcg/actuation HFA aerosol inhaler 2 PO Q4-6H PRN (Reason: Wheezing) fluticasone propionate 50 mcg/actuation spray,suspension 1 - 2 spray intranasal DAILY PRN (Reason: Nasal Congestion) aripiprazole 20 mg tablet 1 tab PO DAILY hydrochlorothiazide 12.5 mg tablet 1 tab PO DAILY oxycodone 5 mg tablet 5 mg PO Q6H PRN (Reason: Pain (Scale Score 7-10)) Qty: 20 0RF Rx Instructions: Partial Fill upon patient request. gabapentin 300 mg capsule 300 mg PO BID Qty: 30 0RF acetaminophen [Tylenol Extra Strength] 500 mg tablet 1,000 mg PO Q6H PRN (Reason: pain) Qty: 30 0RF famotidine [Pepcid] 20 mg tablet 20 mg PO BID 7 Days Qty: 14 0RF hydroxyzine HCl 25 mg tablet 25 mg PO TID PRN (Reason: itching) 7 Days Qty: 21 0RF gabapentin 100 mg capsule 100 mg PO BEDTIME amitriptyline 100 mg tablet 100 mg PO BEDTIME triamcinolone acetonide 0.1 % cream topical BID melatonin 5 mg tablet 5 mg PO BEDTIME PRN oxycodone-acetaminophen 10-325 mg tablet 1 tab PO docusate sodium 100 mg capsule 100 mg PO BEDTIME Qty: 90 3RF acetaminophen 650 mg tablet extended release 650 mg PO Q6H PRN (Reason: fever) cyclobenzaprine 10 mg tablet 10 mg PO BID iapsluaupl-hmrnvvlmxzdsy-dxup 50-325-40 mg capsule 1 cap PO Q6H PRN Linzess 290 mcg capsule 290 mcg PO QAM (DME) FreeStyle Lite Strips Strip See Rx Instructions Not Applicable BID Qty: 10 Rx Instructions: As directed
--- OUTSIDE RECORDS SUMMARY | 2022-02-13 07:32 | XMS_ITS | Continuity of Care Document ---
:1960 Author Organization [facility] Address [address] [place] [address]- Care Team Providers Name Role Phone Not on Staff, PCP Primary Care Physician Unavailable [place] [facility] [place] 10[place]25/20 [facility] [address] [place] [id number]- Discharge Disposition: A-D/C Walkout Attending Physician: Not on Staff, Attending MD Admitting Physician: Not on Staff, Admitting MD Referring Physician: Not on Staff, Referring MD Allergies, Adverse Reactions, Alerts Substance Reaction Severity Status morphine Active Immunizations Given and Recorded Vaccine Date Status Refusal Reason Diphth-Tetanus Toxoids Adsorbed(oldterm) 07/20/08 Given Medications albuterol 90 mcg/inh inhalation aerosol with adapter 2, puffs, Inhalation, 4 times a day, Scheduled / PRN, 0, 0, 09/30/05 20:47:25, as needed for wheezing, 65 Start Date: 09/30/05 Status: Orderedcalcium and vitamin D combination 600 mg-125 u oral tablet 1, tablet, By Mouth, 3 times a day, 0, 0, 08/20/07 3:18:34, Print SHADI Number, 68, Constant Indicator Start Date: 08/20/07 Status: OrderedColace sodium 100 mg oral capsule 1 capsule = 100 mg, By Mouth, 2 times a day, PRN Constipation, # 20 capsule, 0 Refills, Maintenance,Capsule Start Date: 11/19/11 Stop Date: 11/29/11 Status: OrderedColace sodium 100 mg oral capsule 100, mg, 1, capsule, By Mouth, 2 times a day, 42, capsule, 3, 3, 12/31/07 14:17:02, Print SHADI Number, ADS OPPTHS, [facility] [address] [place] [address], [id number], Constant Indicator Start Date: 12/31/07 Stop Date: 03/24/08 Status: OrderedDarvocet N 100 napsylate 650 mg-100 mg oral tablet See Instructions, Scheduled / PRN, 40, 0, 0, 08/21/07 14:03:20, as needed for pain, one to two tab By Mouth Every 4-6 hours, Print SHADI Number Start Date: 08/21/07 Status: OrderedDiazepam Tablet See Instructions, Scheduled / PRN, 0, 0, 08/20/07 3:12:38, as needed for anxiety, 5 mg By Mouth q 8 hrs, Print SHADI Number Start Date: 08/20/07 Status: OrderedEffexor XR 150 mg oral capsule, extended release 150, mg, 1, capsule, By Mouth, Daily, 0, 0, 09/30/05 20:42:57, [id number], Constant Indicator Start Date: 09/30/05 Status: OrderedKeflex monohydrate 500 mg oral capsule 500, mg, 1, capsule, By Mouth, 4 times a day, 6, days, 24, capsule, 0, 0, 08/21/07 14:04:31, Print SHADI Number, 08/27/07 14:04:31, 65, Constant Indicator Start Date: 08/21/07 Stop Date: 08/27/07 Status: OrderedLidoderm 5% film 1 patch, Topically, Daily, # 7 patch, 0 Refills, Maintenance, 04/05/14 19:46:53 Start Date: 04/05/14 Stop Date: 04/12/14 Status: Orderedmagnesium citrate 8.85% oral liquid 150 mL, By Mouth, Once, Drink 150 mL and may repeat if necessary, # 300 mL, 0 Refills, Maintenance, Liquid Start Date: 11/19/11 Status: Orderedmultivitamin Multiple Vitamins oral tablet 1, tablet, By Mouth, Daily, 0, 0, 08/20/07 3:17:30, Print SHADI Number, [id number], Constant Indicator Start Date: 08/20/07 Status: OrderedNexium Capsule 40, mg, By Mouth, Daily, 30, 2, 2, 12/31/07 14:16:35, Print SHADI Number, ADS OPPTHS, [facility] [address] [address], [id number], Constant Indicator Start Date: 12/31/07 Stop Date: 03/30/08 Status: OrderedPrilosec OTC 20 mg oral enteric coated tablet 20, mg, 1, tablet, By Mouth, 2 times a day, 56, 2, 2, 01/01/08 15:12:16, Print SHADI Number, ADS OPPT, [address] [address], [id number], Constant Indicator Start Date: 01/01/08 Status: Orderedsenna 600 mg oral tablet See Instructions, 30, 0, 0, 12/31/07 14:17:32, 1 tab PO daily as needed for constipation/bloating, Print SHADI Number, ADS OPPT, [address] [id number], Constant Indicator Start Date: 12/31/07 Status: OrderedTylenol with Codeine #3 300 mg-30 mg oral tablet 1, tablet, By Mouth, Every 6 hours, Scheduled / PRN, 12, tablet, 0, 0, 12/31/07 14:18:57, as needed for pain, Print SHADI Number, ADS OPPT, [address], [id number], 54 Start Date: 12/31/07 Stop Date: 01/03/08 Status: OrderedVicodin ES 750 mg-7.5 mg oral tablet 1, tablet, By Mouth, 2 times a day, Scheduled / PRN, 20, tablet, 0, 0, 12/31/07 15:21:40, as needed for pain, Print SHADI Number, ADS OPPT, [address], [id number], [id number] Start Date: 12/31/07 Stop Date: 01/10/08 Status: Ordered Problem List Condition Effective Dates Status Health Status Informant Panniculectomy(Confirmed) 08/13/07 Active ; Results Radiology Reports Exam Date Time Procedure Performing Provider Status 10/24/20 5:00 PM Chest 2 Views Frontal and Lat Valery Montes; Auth (Verified) Notes:(Chest 2 Views Frontal and Lat) Reason For Exam: Chest Pain;Other:RESULT: Chest 2 Views Frontal and Lat Chest 2 Views Frontal and Lat Hx of Present Illness: pt sts I have been having problems with my head for two years, since the beginning of this monthn I feel cracking in my head, I feel a heart beat in my head and my eyes are blurry sts she has gone to multiple times and sts she gets treated for; Reason: Other:; Chest Pain; Clinical Question(s): Other: COMPARISON: None. FINDINGS: LINES AND TUBES: None. LUNGS AND PLEURA: Improved aeration of left lung. No remaining opacity. Clear lungs. Normal pulmonary vascularity. No pleural effusion. No pneumothorax. HEART, MEDIASTINUM AND [place]ER[place]: Heart is normal in size. Normal upper mediastinal and hilar contour. BONES AND SOFT TISSUES: No acute abnormality. Lower cervical fusion hardware is noted. IMPRESSION: No acute abnormality. WSN: [id number] Ordering Physician: Kelvin Chicas Dictated By: Ryan Moss MD Dictated Date/Time: 10/24/20 5:01 pm Reviewed By: Ryan Moss MD Signed By: Ryan Moss MD Signed Date/Time: 10/24/20 5:01 pm Transcribed By: TATYANA Transcribed Date/Time: 10/24/20 5:01 pm Vital Signs Most recent to oldest 1 2 3 [Reference Range]: Oxygen Saturation [94-100 %] 98 % 100 % 100 % (10/25/20 6:23 AM) (10/25/20 3:41 AM) (10/25/20 12: 41 AM) Pulse Rate [55-90 bpm] 78 bpm 76 bpm 78 bpm (10/25/20 6:23 AM) (10/25/20 3:41 AM) (10/25/20 12: 41 AM) Blood Pressure [90-138/55-84 152/94 mm Hg 151/104 mm Hg 131 /92 mm Hg mm Hg] *H* *H* (10/25/20 12:41 A M) (10/25/20 6:23 AM) (10/25/20 3:41 AM) Respiratory Rate [16-30 18 br/min 18 br/min 18 br/mi n br/min] (10/25/20 6:23 AM) (10/25/20 3:41 AM) (10/25/20 12: 41 AM) Temperature [96.8-100.4 DegF] 97.3 DegF 98.4 DegF 98 .5 DegF (10/25/20 6:23 AM) (10/25/20 3:41 AM) (10/25/20 12: 41 AM) Mode of Delivery (Oxygen) Room air Room air Room a ir (10/25/20 6:23 AM) (10/25/20 3:41 AM) (10/25/20 12: 41 AM) Blood pressure sites Arm, left Arm, left Arm, left (10/25/20 3:41 AM) (10/25/20 12:41 AM) (10/24/20 9: 38 PM) Temperature Route Oral Oral Oral (10/25/20 6:23 AM) (10/25/20 3:41 AM) (10/25/20 12: 41 AM) Social History Social History Type Response Smoking Status Never smoker; Tobacco user i n household: Yes entered on: 04/05/14 Sex
[2022-02-13] MEDS: diazePAM 2 MG TABLET PO (08:05)
[2022-02-13] MEDS: oxyCODONE HCl Immed Release 5 MG TABLET PO (08:05)
[2022-02-13] MEDS: Lidocaine 4 % Patch ADH..PATCH 1 PATCH TRANSDERMA (08:06)
== END 2022-02-13 09:00 | disposition home or self-care (01) ==
PROVIDERS: Emergency Provider Emergency Medicine
DX: M25.511 Pain in right shoulder (principal)
CPT/HCPCS: 73030; 73080; 99283

== ENCOUNTER 2022-02-21 11:16 | Outpatient (REF) | payer MEDICAID, SELFPAY ==
[2022-02-21 11:38] LABS: MANUAL DIFF FLAG NO
[2022-02-21 12:06] LABS: Basophils Percent Auto 0.2 % (0-2); Eosinophils Absolute Auto 0.1 X10*3/uL (0.0-0.4); Eosinophils Percent Auto 0.8 % (0-4); Hematocrit 33.5 % (37.0-47.0); Hemoglobin 10.5 g/dl (12.0-16.0); Imm Gran Abs Auto 0.04 X10*3/uL (0.00-0.03); Imm Gran Pct Auto 0.4 % (0.0-0.4); Lymphocytes Absolute Auto 2.1 X10*3/uL (1.2-4.9); Lymphocytes Percent Auto 19.8 % (20-40); Mean Corpuscular HGB Conc 31.3 g/dl (31.0-35.0); Mean Corpuscular Hemoglobin 26.9 pg (27.0-33.0); Mean Corpuscular Volume 85.9 fL (80.0-98.0); Mean Platelet Volume 10.2 fL (9.4-12.3); Monocytes Absolute Auto 0.9 X10*3/uL (0.1-1.2); Monocytes Percent Auto 8.7 % (2-11); Neutrophils Absolute Auto 7.5 x10*3/uL (2.0-8.3); Neutrophils Percent Auto 70.1 % (45-73); Platelet Count 255 X10*3/uL (160-400); Red Cell Distribution Width 14.4 % (11.0-16.0); White Blood Count 10.7 X10*3/uL (4.8-10.8)
[2022-02-21 12:20] LABS: Anion Gap 15 (12-20); Blood Urea Nitrogen 26 mg/dL (9-16); Calcium 9.1 mg/dL (8.4-10.2); Carbon Dioxide 26 mmol/L (22-29); Chloride 107 mmol/L (96-108); Estimated Glomerular Filt Rate > 60; Potassium 4.7 mmol/L (3.3-5.1); Sodium 143 mmol/L (135-145)
[2022-02-21 13:32] LABS: Appearance Urine Clear; Color Urine Dark Yellow; Glucose Urine UA Negative (Negative); Leukocyte Esterase Urine Trace (Negative); Nitrite Urine Negative (Negative); Specific Gravity - Urine >= 1.030 (1.005-1.025); UMIC TRIGGER UA YES; Urine Blood Negative (Negative); Urine Ketones Trace mg/dL (Negative); Urine Protein Trace mg/dL (Neg-Trace)
[2022-02-21 13:36] LABS: Bacteria Urine None Seen (None Seen); Hyaline Casts Urine 0-2 /LPF (0-2); RBC Urine 0-2 /HPF (0-2)
[2022-02-21 14:02] LABS: Creatinine Urine 299.61 mg/dL; Protein/Creatinine Ratio, Ur 0.07 (<0.2); Total Protein Urine Random 20 mg/dL (<12)
== END 2022-02-21 11:17 | disposition home or self-care (01) ==
LOC: HO.LAB 11:16
PROVIDERS: Absent Provider Internal Medicine Hypertension Specialist; PCP Internal Medicine; Visit Provider Internal Medicine Nephrology
DX: N39.0 Urinary tract infection, site not specified (principal); N17.9 Acute kidney failure, unspecified
CPT/HCPCS: 36415; 80051; 81001; 82310; 82565; 84156; 84520; 85025; 87086

== ENCOUNTER → 2022-03-11 14:11 | Outpatient (BNVA) | payer MEDICAID, SELFPAY | PROVIDERS: PCP Internal Medicine; Visit Provider Nurse Practitioner Family | DX: K59.04 Chronic idiopathic constipation (principal); K57.90 Diverticulosis of intestine, part unspecified, without perforation or abscess without bleeding; R10.32 Left lower quadrant pain | CPT/HCPCS: 99212 ==

== ENCOUNTER 2022-03-20 08:49 | Outpatient (REF) | payer MEDICAID, SELFPAY ==
--- NOTE | ~2022-03-20 | CT_ITS ---
EXAMINATION: CT ABDOMEN AND PELVIS WITH CONTRAST CLINICAL INFORMATION: Unspecified abdominal pain. COMPARISON: CT abdomen and pelvis 06/04/2021. TECHNIQUE: Multidetector volumetric images were obtained from the superior aspect of the liver through the pubic symphysis following administration 85 mL of Omnipaque 350 intravenous contrast. Sagittal and coronal reformatted images were obtained on the technologist's workstation. Oral contrast: No This CT examination was performed using dose optimization techniques as appropriate, variously including the following: *Automated exposure control *Adjustment of mA and/or kV according to patient size (this includes techniques or standardized protocols for targeted exams where dose is matched to indication/reason for exam; i.e. extremities or head) *Use of iterative reconstruction technique DLP: 404 mGy-cm. FINDINGS: LUNG BASES: There are atelectatic changes or scarring both lung bases. Heart size is normal. LIVER, GALLBLADDER, AND BILIARY TREE: The liver is normal in size, shape, and attenuation. No focal hepatic lesion or biliary ductal dilatation is present. The gallbladder is unremarkable with no evidence of radiopaque gallstones, gallbladder wall thickening, or obvious pericholecystic inflammatory changes. PANCREAS: Unremarkable. SPLEEN: Unremarkable. ADRENAL GLANDS: Unremarkable. KIDNEYS AND URETERS: The kidneys are normal in size, shape, and attenuation. No hydronephrosis, hydroureter, or calculi seen. No perinephric stranding. BLADDER: Unremarkable. GASTROINTESTINAL TRACT: There is moderate stool seen in the colon consistent with constipation. In the left upper quadrant, there is a small bowel loop within the small bowel loops suggestive of intussusception on axial image 38/3 and coronal image 24/4 through 28/4. ABDOMINAL WALL: No significant hernia is appreciated. LYMPH NODES: Normal. VASCULAR: Unremarkable. PELVIC VISCERA: Unremarkable. OSSEOUS STRUCTURES: There are degenerative disc changes L5-S1 disc level with vacuum disc phenomena. There is ventral and posterior spondylosis throughout lumbar and lower dorsal spine There is no aggressive lytic or sclerotic process seen. CT/CT abdomen pelvis w IV con IMPRESSION: 1. Left upper quadrant small bowel intussusception. No proximal bowel obstruction. 2. Moderate constipation. 3. No acute intra-abdominal process seen. 4. Degenerative disc changes L5-S1 disc level with vacuum disc phenomena and ventral and posterior spondylosis throughout lumbar and lower dorsal spine. Fleischner guidelines were followed.
[2022-03-20] MEDS: iohexoL 350 MG/ML 100 ML INFUS..BTL 85 ML IV (11:23)
[2022-03-20] MEDS: Barium Sulfate Oral (Mocha) 450 ML ORAL.SUSP 900 ML PO (11:23)
== END 2022-03-20 08:50 | disposition home or self-care (01) ==
LOC: HO.CT 08:49
PROVIDERS: PCP Internal Medicine; Visit Provider Nurse Practitioner Family
DX: R10.9 Unspecified abdominal pain (principal)
CPT/HCPCS: 74177; Q9967

== ENCOUNTER 2022-03-29 03:10 | Emergency (ER) | payer MEDICAID, SELFPAY ==
--- NOTE | ~2022-03-29 | XR_ITS ---
EXAMINATION: XR CHEST, 2 VIEWS CLINICAL INFORMATION: productive cough COMPARISON: 05/14/2021 TECHNIQUE: PA and lateral views of the chest were obtained. FINDINGS: Lungs are clear. No consolidation, pneumothorax, or pleural effusion. Cardiac and mediastinal contours are normal. Pulmonary vasculature is unremarkable. Trachea is midline. Marked degenerative disc disease in the thoracic spine. Osteoarthritis is present in the acromioclavicular and glenohumeral joints. ACDF hardware in the cervical spine. XR/XR chest 2V IMPRESSION: No acute cardiopulmonary findings.
[2022-03-29 03:17] VITALS: BP 130/87; PULSE 73; RESP 16; TEMP 36.7; O2SAT 97; BMI 26.1
--- NOTE | 2022-03-29 04:11 | ED.URI ---
HPI - URI/Sore Throat General Chief Complaint: Upper Respiratory Symptoms Stated Complaint: Cough Time Seen by Provider: 03/29/22 03:43 Source: patient Mode of arrival: ambulatory Limitations: no limitations History of Present Illness HPI Narrative: Patient with history of asthma having coughing last 3 - 4 days with mucopurulent phlegm no fever no chills pain in the right side of the chest taking deep breath Related Data Home Medications Medication Instructions Recorded Confirmed albuterol sulfate 90 mcg/actuation 2 PO Q4-6H PRN Wheezing 01/01/21 12/04/21 aerosol inhaler clonazepam 1 mg tablet (Klonopin) 1 tab PO TID PRN Anxiety 01/01/21 12/04/21 fluticasone propionate 50 1 - 2 spray intranasal DAILY PRN 01/01/21 12/04/21 mcg/actuation nasal Nasal Congestion spray,suspension hydrochlorothiazide 12.5 mg tablet 1 tab PO DAILY 01/01/21 09/03/21 metformin 500 mg tablet,extended 1 tab PO BID 01/01/21 12/04/21 release 24 hr venlafaxine 150 mg 2 cap PO QAM 01/01/21 12/04/21 capsule,extended release 24 hr melatonin 5 mg tablet 5 mg PO BEDTIME PRN 12/05/21 triamcinolone acetonide 0.1 % appl topical BID 12/05/21 topical cream acetaminophen 650 mg 650 mg PO Q6H PRN fever 12/27/21 tablet,extended release blood sugar diagnostic (FreeStyle #10 ea 12/27/21 Lite Strips) hzxidfooge-uqbsiyrkxgkhy-rptstlkl 1 cap PO Q6H PRN 12/27/21 50 mg-325 mg-40 mg capsule ferrous sulfate 325 mg (65 mg 325 mg PO Q OTHER DAY 03/11/22 iron) tablet,delayed release gabapentin 300 mg capsule 600 mg PO BEDTIME 03/11/22 oxycodone-acetaminophen 7.5 mg-325 1 tab PO severe pain 03/11/22 mg tablet trazodone 100 mg tablet 200 mg PO BEDTIME 03/11/22 Previous Rx's Medication Instructions Recorded famotidine 20 mg tablet (Pepcid) 20 mg PO BID 7 days #14 tabs 11/12/21 prucalopride 2 mg tablet 2 mg PO DAILY 30 days #30 tabs 12/25/21 diclofenac sodium 1 % topical gel 2 g topical QID #100 grams 02/13/22 (Voltaren Arthritis Pain) lidocaine 5 % topical patch 1 patch topical DAILY #30 ea 02/13/22 bisacodyl 5 mg tablet,delayed 10 mg PO BEDTIME #180 tabs 03/11/22 release (Dulcolax (bisacodyl)) docusate sodium 100 mg capsule 100 mg PO BEDTIME #90 caps 03/11/22 polyethylene glycol 3350 17 17 g PO DAILY #510 grams 03/11/22 gram/dose oral powder (Miralax) benzonatate 200 mg capsule 200 mg PO TID PRN cough #30 caps 03/29/22 doxycycline hyclate 100 mg tablet 100 mg PO BID #20 tabs 03/29/22 tramadol 50 mg tablet 50 mg PO Q6H PRN pain #20 tabs 03/29/22 Allergies Allergy/AdvReac Type Severity Reaction Status Date / Time morphine [MORPHINE] Allergy Intermediate PALPITATIONS, Verified 03/29/22 03:17 tachicardia quetiapine [Seroquel] Allergy Unknown Unknown Verified 03/29/22 03:17 orphenadrine [ORPHENADRINE] AdvReac Intermediate RAPID Verified 03/29/22 03:17 HEART RATE Review of Systems Review of Systems: Yes all other systems are reviewed and are negative PMFSH Past Medical History Medical History Anxiety Asthma Chronic idiopathic constipation Depression Diabetes 1.5, managed as type 2 Diverticulosis Fibromyalgia Migraine Surgical History Gastric bypass status for obesity H/O colonoscopy History of pubovaginal sling Hx of bilateral breast reduction surgery Hx of oophorectomy Family History Family History Mother Colon cancer Social History Social History Household Members Other:: lives alone Housing: Condominium Alcohol intake: never Patient Tobacco Use Status: Never used Tobacco Advance Directives: No Advance Directives Information Provided: Yes service: No Current occupational status: disabled Gender identity: Female Physical Exam Vital Signs: Vital Signs: Last Vital Signs Temp 98.1 F 03/29/22 03:17 Pulse 73 03/29/22 03:17 Resp 16 03/29/22 03:17 BP 130/87 03/29/22 03:17 Pulse Ox 97 03/29/22 03:17 O2 Del Method 03/29/22 03:17 BMI result Body Mass Index 26.1 Appearance: Alert. Oriented X3. No acute distress. ENT: Pharynx normal. Oral Mucosa moist Neck: Normal inspection. Neck supple. CVS: Normal heart rate and rhythm. Pulses normal. Respiratory: No respiratory distress. Equal air entry bilateral, no wheezing/rales/rhonchi prolonged expiration dry cough Abdomen: Soft and nontender. Bowel sounds are present, no mass palpable, no CVA tenderness Skin: Skin warm and dry. Normal skin color. Normal skin turgor. Extremities: No lower extremity edema. No calf tenderness Neuro: Oriented X 3. Medications Administered Discontinued Medications Generic Name Dose Route Start Last Admin Trade Name Freq PRN Reason Stop Dose Admin Benzonatate 200 mg 03/29/22 04:14 03/29/22 04:20 Benzonatate 100 Mg Capsule PO 03/29/22 04:15 200 mg ONCE ONE Administration Doxycycline Monohydrate 100 mg 03/29/22 04:14 03/29/22 04:20 Doxycycline Monohydrate 100 Mg Capsule PO 03/29/22 04:15 100 mg ONCE ONE Administration Tramadol HCl 50 mg 03/29/22 04:14 03/29/22 04:20 Tramadol Hcl 50 Mg Tablet PO 03/29/22 04:15 50 mg ONCE ONE Administration MDM - URI/Sore Throat MDM Narrative Medical decision making narrative: Patient likely with bronchitis no wheezing noticed saturating 98% at room air chest x-ray negative, will give doxycycline Differential Diagnosis Differential diagnosis: Likely upper respiratory infection Lab Data Attestation: I reviewed the patient's lab results. Labs: Lab Results 03/29/22 Range/Units 04:20 COVID-19 (IGOR) Negative (Negative) COVID-19 Clin Com See Note Discharge Plan Discharge Clinical Impression: Bronchitis Patient Disposition: Home, Self-Care Instructions: Acute Bronchitis (ED) Additional Instructions: Take antibiotic as prescribed Follow-up with PCP as needed Pain medication as prescribed Use your inhaler every 4-6 hours as needed Prescriptions: New benzonatate 200 mg capsule 200 mg PO TID PRN (Reason: cough) Qty: 30 0RF tramadol 50 mg tablet 50 mg PO Q6H PRN (Reason: pain) Qty: 20 0RF doxycycline hyclate 100 mg tablet 100 mg PO BID Qty: 20 0RF No Action Motegrity 2 mg tablet 2 mg PO DAILY 30 Days Qty: 30 3RF metformin 500 mg tablet extended release 24 hr 1 tab PO BID clonazepam [Klonopin] 1 mg tablet 1 tab PO TID PRN (Reason: Anxiety) venlafaxine 150 mg capsule,extended release 24hr 2 cap PO QAM albuterol sulfate 90 mcg/actuation HFA aerosol inhaler 2 PO Q4-6H PRN (Reason: Wheezing) fluticasone propionate 50 mcg/actuation spray,suspension 1 - 2 spray intranasal DAILY PRN (Reason: Nasal Congestion) hydrochlorothiazide 12.5 mg tablet 1 tab PO DAILY trazodone 100 mg tablet 200 mg PO BEDTIME lidocaine 5 % adhesive patch,medicated 1 patch topical DAILY Qty: 30 0RF Rx Instructions: leave on most painful area for up to 12 hrs diclofenac sodium [Voltaren Arthritis Pain] 1 % gel 2 g topical QID Qty: 100 0RF Rx Instructions: apply to single elbow, wrist or hand; for hand includes palm/fingers/back of hand famotidine [Pepcid] 20 mg tablet 20 mg PO BID 7 Days Qty: 14 0RF triamcinolone acetonide 0.1 % cream topical BID melatonin 5 mg tablet 5 mg PO BEDTIME PRN acetaminophen 650 mg tablet extended release 650 mg PO Q6H PRN (Reason: fever) cztiztomsa-fctgncbujvrqu-higg 50-325-40 mg capsule 1 cap PO Q6H PRN (DME) FreeStyle Lite Strips Strip See Rx Instructions Not Applicable BID Qty: 10 Rx Instructions: As directed gabapentin 300 mg capsule 600 mg PO BEDTIME oxycodone-acetaminophen 7.5-325 mg tablet 1 tab PO ferrous sulfate 325 mg (65 mg iron) tablet,delayed release (DR/EC) 325 mg PO Q OTHER DAY docusate sodium 100 mg capsule 100 mg PO BEDTIME Qty: 90 3RF bisacodyl [Dulcolax (bisacodyl)] 5 mg tablet,delayed release (DR/EC) 10 mg PO BEDTIME Qty: 180 4RF polyethylene glycol 3350 [Miralax] 17 gram/dose powder 17 g PO DAILY Qty: 510 2RF
[2022-03-29] MEDS: Doxycycline Monohydrate 100 MG CAPSULE PO (04:20)
[2022-03-29] MEDS: Benzonatate 100 MG CAPSULE 200 MG PO (04:20)
[2022-03-29] MEDS: traMADoL HCL 50 MG TABLET PO (04:20)
[2022-03-29 04:44] LABS: COVID-19 Test Negative (Negative); IDNOW Serial# 16C4AD1C
== END 2022-03-29 05:51 | disposition home or self-care (01) ==
PROVIDERS: Emergency Provider Internal Medicine; PCP Internal Medicine
DX: J40 Bronchitis, not specified as acute or chronic (principal); J45.909 Unspecified asthma, uncomplicated; R05.9 Cough, unspecified; Z20.822 Contact with and (suspected) exposure to COVID-19; Z79.899 Other long term (current) drug therapy
CPT/HCPCS: 71046; 87635; 99283

== ENCOUNTER 2022-04-16 12:50 | Emergency (ER) | payer MEDICAID, SELFPAY ==
--- NOTE | ~2022-04-16 | XR_ITS ---
EXAMINATION: XR ABDOMEN KUB CLINICAL INDICATION: Left abdominal pain COMPARISON: CT dated 03/20/2022 TECHNIQUE: 2 views of the abdomen. FINDINGS: The bowel gas pattern is normal with no evidence of ileus or obstruction. Moderate stool throughout the colon No unusual soft tissue calcifications are noted. The bones are unremarkable. XR/XR KUB IMPRESSION: No obstruction. Moderate constipation.
--- NOTE | ~2022-04-16 | CT_ITS ---
EXAMINATION: CT ABDOMEN AND PELVIS WITH CONTRAST CLINICAL INFORMATION: Diffuse abdominal pain COMPARISON: Multiple prior CT scans of the abdomen and pelvis the most recent of which was 03/20/2022 TECHNIQUE: Multidetector volumetric images were obtained from the superior aspect of the liver through the pubic symphysis following administration 85 mL of Omnipaque 350 intravenous contrast. Sagittal and coronal reformatted images were obtained on the technologist's workstation. Oral contrast: No This CT examination was performed using dose optimization techniques as appropriate, variously including the following: *Automated exposure control *Adjustment of mA and/or kV according to patient size (this includes techniques or standardized protocols for targeted exams where dose is matched to indication/reason for exam; i.e. extremities or head) *Use of iterative reconstruction technique DLP: 596 mGy-cm FINDINGS: LUNG BASES: Groundglass changes and atelectasis are seen. A worrisome mass, consolidation or pleural effusion is not seen. LIVER, GALLBLADDER, AND BILIARY TREE: The liver is normal in size, shape, and attenuation. Minimally prominent bile ducts noted in the liver. No focal hepatic lesion or gross biliary ductal dilatation is present. The gallbladder is contracted compared to the prior study but otherwise unremarkable with no evidence of radiopaque gallstones, gallbladder wall thickening, or obvious pericholecystic inflammatory changes. PANCREAS: Unremarkable. SPLEEN: Calcified splenic granulomas are seen. ADRENAL GLANDS: Unremarkable. KIDNEYS AND URETERS: The kidneys are normal in size and attenuation. There is lobulation. No hydronephrosis, hydroureter, or calculi seen. No perinephric stranding. BLADDER: Unremarkable. GASTROINTESTINAL TRACT: Prior bariatric surgery with bypass . Some moderate stool burden is present in the colon unchanged. The small and large bowel are otherwise unremarkable without evidence of obstruction. The previously seen intussusception in March is no longer present. The appendix is unremarkable. ABDOMINAL WALL: No significant hernia is appreciated. LYMPH NODES: Normal. VASCULAR: Unremarkable. PELVIC VISCERA: Unremarkable. OSSEOUS STRUCTURES: Unremarkable. CT/CT abdomen pelvis w IV con IMPRESSION: A cause for the patient's diffuse abdominal pain has not been found. Fleischner guidelines were followed.
[2022-04-16 13:57] VITALS: BP 143/70; PULSE 70; RESP 16; O2SAT 100; BMI 28.0
--- NOTE | 2022-04-16 13:58 | ED_ITS ---
HPI - General Adult General Chief complaint: Abdominal Pain <Haley Strong MD - Last Filed: 04/16/22 14:00> Stated complaint: abd pain <Haley Strong MD - Last Filed: 04/16/22 14:00> Time Seen by Provider: 04/16/22 18:42 <Haley Strong MD - Last Filed: 04/16/22 14:00> Source: patient <CAMELIA Lucas - Last Filed: 04/16/22 21:37> Mode of arrival: ambulatory <CAMELIA Lucas - Last Filed: 04/16/22 21:37> Limitations: no limitations <CAMELIA Lucas Last Filed: 04/16/22 21:37> History of Present Illness HPI narrative: This is a 62-year-old female history of anxiety, asthma, chronic idiopathic constipation, depression, diabetes, diverticulosis, fibromyalgia and migraines presenting to the emergency department complaints of abdominal pain and constipation x2 weeks.? Patient reports that she has not had a bowel movement for 2 weeks and she has been eating and drinking per usual.? She reports she is passing gas however.? She tells me that she went to see her GI doctor today who advised her to come in to be evaluated.? Patient reporting abdominal pain diffuse in nature worse in the left lower quadrant.? Patient reports she thinks she had a fever yesterday however unsure.? Patient denies chest pain, shortness of breath, nausea, vomiting, headache, vision changes, difficulties with urination.? Patient does have a history of gastric bypass as well as pubovaginal sling and oophorectomy <CAMELIA Lucas - Last Filed: 04/16/22 21:37> Related Data Home medications: Home Medications Medication Instructions Recorded Confirmed albuterol sulfate 90 mcg/actuation 2 PO Q4-6H PRN Wheezing 01/01/21 12/04/21 aerosol inhaler clonazepam 1 mg tablet (Klonopin) 1 tab PO TID PRN Anxiety 01/01/21 12/04/21 fluticasone propionate 50 1 - 2 spray intranasal DAILY PRN 01/01/21 12/04/21 mcg/actuation nasal Nasal Congestion spray,suspension hydrochlorothiazide 12.5 mg tablet 1 tab PO DAILY 01/01/21 09/03/21 metformin 500 mg tablet,extended 1 tab PO BID 01/01/21 12/04/21 release 24 hr venlafaxine 150 mg 2 cap PO QAM 01/01/21 12/04/21 capsule,extended release 24 hr melatonin 5 mg tablet 5 mg PO BEDTIME PRN 12/05/21 triamcinolone acetonide 0.1 % appl topical BID 12/05/21 topical cream acetaminophen 650 mg 650 mg PO Q6H PRN fever 12/27/21 tablet,extended release blood sugar diagnostic (FreeStyle #10 ea 12/27/21 Lite Strips) npmbdkfsrz-lfbkyrnrqgeaj-xomliews 1 cap PO Q6H PRN 12/27/21 50 mg-325 mg-40 mg capsule ferrous sulfate 325 mg (65 mg 325 mg PO Q OTHER DAY 03/11/22 iron) tablet,delayed release gabapentin 300 mg capsule 600 mg PO BEDTIME 03/11/22 oxycodone-acetaminophen 7.5 mg-325 1 tab PO severe pain 03/11/22 mg tablet trazodone 100 mg tablet 200 mg PO BEDTIME 03/11/22 Previous Rx's Medication Instructions Recorded famotidine 20 mg tablet (Pepcid) 20 mg PO BID 7 days #14 tabs 11/12/21 prucalopride 2 mg tablet 2 mg PO DAILY 30 days #30 tabs 12/25/21 diclofenac sodium 1 % topical gel 2 g topical QID #100 grams 02/13/22 (Voltaren Arthritis Pain) lidocaine 5 % topical patch 1 patch topical DAILY #30 ea 02/13/22 bisacodyl 5 mg tablet,delayed 10 mg PO BEDTIME #180 tabs 03/11/22 release (Dulcolax (bisacodyl)) docusate sodium 100 mg capsule 100 mg PO BEDTIME #90 caps 03/11/22 polyethylene glycol 3350 17 17 g PO DAILY #510 grams 03/11/22 gram/dose oral powder (Miralax) benzonatate 200 mg capsule 200 mg PO TID PRN cough #30 caps 03/29/22 doxycycline hyclate 100 mg tablet 100 mg PO BID #20 tabs 03/29/22 tramadol 50 mg tablet 50 mg PO Q6H PRN pain #20 tabs 03/29/22 lactulose 10 gram/15 mL oral 20 g (30 mL) PO BID #473 mL 04/09/22 solution <Haley Strong MD - Last Filed: 04/16/22 14:00> Allergies/adverse reactions: Allergies Allergy/AdvReac Type Severity Reaction Status Date / Time morphine [MORPHINE] Allergy Intermediate PALPITATIONS, Verified 03/29/22 03:17 tachicardia quetiapine [Seroquel] Allergy Unknown Unknown Verified 03/29/22 03:17 orphenadrine [ORPHENADRINE] AdvReac Intermediate RAPID Verified 03/29/22 03:17 HEART RATE <Hlaey Strong MD - Last Filed: 04/16/22 14:00> Review of Systems Review of Systems: Constitutional : No Weight loss, No Fever, No Chills, No Fatigue, No Malaise ENT/Mouth : No sore throat, No Rhinorrhea Eyes: No Eye Pain, No Swelling, No Redness Cardiovascular : No Chest Pain, No SOB, No Dyspnea on Exertion, No Orthopnea, No Edema, No Palpitations Respiratory : No Cough, No Sputum, No Wheezing Gastrointestinal : No Nausea, No Vomiting, No Diarrhea, + Constipation, + abdominal Pain, No Hematochezia, No Melena Genitourinary : No Dysuria, No Urinary Frequency, No Hematuria, Musculoskeletal : No joint pain, No Myalgias, No Joint Swelling Skin : No Skin Lesions, No rash Neuro : No Weakness, No Numbness, No Dizziness, No Headache Psych : No Anxiety/Panic, No Depression <CAMELIA Lucas - Last Filed: 04/16/22 21:37> Yes all other systems are reviewed and are negative <CAMELIA Lucas - Last Filed: 04/16/22 21:37> [facility] Past Medical History Attestation statement: The following information was validated with the patient. <CAMELIA Lucas - Last Filed: 04/16/22 21:37> Source: old records reviewed and nursing notes reviewed <CAMELIA Lucas - Last Filed: 04/16/22 21:37> Medical History: Medical History Anxiety Asthma Chronic idiopathic constipation Depression Diabetes 1.5, managed as type 2 Diverticulosis Fibromyalgia Migraine <Haley Strong MD - Last Filed: 04/16/22 14:00> Surgical History: Surgical History Gastric bypass status for obesity H/O colonoscopy History of pubovaginal sling Hx of bilateral breast reduction surgery Hx of oophorectomy <Haley Strong MD - Last Filed: 04/16/22 14:00> Family History Family History: Family History Mother Colon cancer <Haley Strong MD - Last Filed: 04/16/22 14:00> Social History Social History: Social History Household Members Other:: lives alone Housing: Condominium Alcohol intake: never Patient Tobacco Use Status: Never used Tobacco Advance Directives: No Advance Directives Information Provided: No service: No Current occupational status: disabled Gender identity: Female <Haley Strong MD - Last Filed: 04/16/22 14:00> Physical Exam ED Vital Signs: Vital Signs - 24 hr 04/16/22 13:57 04/16/22 19:23 Temperature 98.1 F Pulse Rate 70 79 Respiratory Rate 16 16 Blood Pressure 143/70 H 126/70 Pulse Oximetry 100 99 Oxygen Delivery Method Room Air Room Air BMI result Body Mass Index 28.0 <Haley Strong MD - Last Filed: 04/16/22 14:00> Vital Signs - 24 hr 04/16/22 13:57 04/16/22 19:23 Temperature 98.1 F Pulse Rate 70 79 Respiratory Rate 16 16 Blood Pressure 143/70 H 126/70 Pulse Oximetry 100 99 Oxygen Delivery Method Room Air Room Air BMI result Body Mass Index 28.0 <CAMELIA Lucas - Last Filed: 04/16/22 21:37> Appearance: Alert.? Oriented X3.? No acute distress.? Head:? Normocephalic, atraumatic, no step-offs or deformities Eyes: Pupils equal, round and reactive to light.? ENT: Pharynx normal.? Neck: Normal inspection.? Neck supple.? CVS: Normal heart rate and rhythm.? Pulses normal.? Respiratory: No respiratory distress.? Breath sounds normal.? Abdomen: Soft and diffusely tender abdomen with normoactive bowel sounds.? Skin: Skin warm and dry.? Normal skin color.? Normal skin turgor.? Extremities: No lower extremity edema.? No calf ttp.? 5/5 strength to bilateral upper and lower extremities Back:? No midline tenderness, no C-spine tenderness, full range of motion, no CVA tenderness bilaterally Neuro: Oriented X 3.? No motor deficit.? No sensory deficit. CN 2-12 intact <CAMELIA Lucas - Last Filed: 04/16/22 21:37> Course Course Course Narrative: 62F 2 weeks left sided abd pain without dysuria/diarrhea/vomiting/fevers/chills but has had nausea. VS Reviewed GEN: NAD EARS: wnl THROAT: wnl LUNGS: CTAB CVS: RRR ABD: left sided abd pain without rebound/ND <Haley Strong MD - Last Filed: 04/16/22 14:00> Reevaluation(s) Reevaluation #1: CBC demonstrating a normocytic anemia which is patient's baseline.? No leukocytosis.? Chemistry with no acute findings requiring intervention.? UA clean.? KUB revealed no obstruction with moderate constipation.? Colace and senna ordered at this time.? CT of the abdomen pelvis with no acute findings to explain patient's diffuse abdominal pain. <CAMELIA Lucas - Last Filed: 04/16/22 21:37> Time: 21:33 <CAMELIA Lucas - Last Filed: 04/16/22 21:37> Medications Administered Discontinued Medications Generic Name Dose Route Start Last Admin Trade Name Freq PRN Reason Stop Dose Admin Iohexol 100 ml 04/16/22 19:45 04/16/22 19:45 Iohexol 350 Mg/Ml 100 Ml Infus..Btl IV 04/16/22 19:46 85 ml ONCE ONE Administration <Haley Strong MD - Last Filed: 04/16/22 14:00> Medications Administered Discontinued Medications Generic Name Dose Route Start Last Admin Trade Name Freq PRN Reason Stop Dose Admin Iohexol 100 ml 04/16/22 19:45 04/16/22 19:45 Iohexol 350 Mg/Ml 100 Ml Infus..Btl IV 04/16/22 19:46 85 ml ONCE ONE Administration <CAMELIA Lucas - Last Filed: 04/16/22 21:37> Medical Decision Making Medical Decision Making [facility] Narrative: 62-year-old female presents with constipation, abdominal pain worse in the left lower quadrant. Physical examination with diffuse abdominal tenderness with normoactive bowel sounds, pain worse in the left lower quadrant.? Regular rate and rhythm.? Lungs clear.? Abdomen soft.? Neuro nonfocal.? Vital signs stable. Likely chronic constipation.? Other differentials include small-bowel obstruction, diverticulitis.? Unlikely acute abdomen, large bowel obstruction. Plan labs, imaging, urine. <CAMELIA Lucas - Last Filed: 04/16/22 21:37> Critical Care Time Critical Care Time Critical Care Time: No <CAMELIA Lucas - Last Filed: 04/16/22 21:37> Discharge Plan Discharge Clinical Impression: Chronic idiopathic constipation <Haley Strong MD - Last Filed: 04/16/22 14:00> Patient Disposition: Home, Self-Care <Haley Strong MD - Last Filed: 04/16/22 14:00> Instructions: Constipation (ED), High Fiber Diet (ED) <Haley Strong MD - Last Filed: 04/16/22 14:00> Additional Instructions: Take your medications as prescribed. If you were prescribed antibiotics today, it is important that you take your medication to their entirety, do not skip any doses, do not finish them early. Follow-up with your primary care provider this week. Return to the emergency department with new or worsening symptoms. Such as fevers, chills, chest pain, shortness of breath, nausea, vomiting, dizziness, headache, vision changes, lethargy In case of emergency call 911 Take medications that were prescribed to by her GI doctor. <Haley Strong MD - Last Filed: 04/16/22 14:00> Prescriptions: No Action Motegrity 2 mg tablet 2 mg PO DAILY 30 Days Qty: 30 3RF lactulose 10 gram/15 mL solution 20 g PO BID Qty: 473 2RF metformin 500 mg tablet extended release 24 hr 1 tab PO BID clonazepam [Klonopin] 1 mg tablet 1 tab PO TID PRN (Reason: Anxiety) venlafaxine 150 mg capsule,extended release 24hr 2 cap PO QAM albuterol sulfate 90 mcg/actuation HFA aerosol inhaler 2 PO Q4-6H PRN (Reason: Wheezing) fluticasone propionate 50 mcg/actuation spray,suspension 1 - 2 spray intranasal DAILY PRN (Reason: Nasal Congestion) hydrochlorothiazide 12.5 mg tablet 1 tab PO DAILY trazodone 100 mg tablet 200 mg PO BEDTIME lidocaine 5 % adhesive patch,medicated 1 patch topical DAILY Qty: 30 0RF Rx Instructions: leave on most painful area for up to 12 hrs diclofenac sodium [Voltaren Arthritis Pain] 1 % gel 2 g topical QID Qty: 100 0RF Rx Instructions: apply to single elbow, wrist or hand; for hand includes palm/fingers/back of hand benzonatate 200 mg capsule 200 mg PO TID PRN (Reason: cough) Qty: 30 0RF tramadol 50 mg tablet 50 mg PO Q6H PRN (Reason: pain) Qty: 20 0RF doxycycline hyclate 100 mg tablet 100 mg PO BID Qty: 20 0RF famotidine [Pepcid] 20 mg tablet 20 mg PO BID 7 Days Qty: 14 0RF triamcinolone acetonide 0.1 % cream topical BID melatonin 5 mg tablet 5 mg PO BEDTIME PRN acetaminophen 650 mg tablet extended release 650 mg PO Q6H PRN (Reason: fever) hfgbvywwmp-zvkkklayubdzu-ivih 50-325-40 mg capsule 1 cap PO Q6H PRN (DME) FreeStyle Lite Strips Strip See Rx Instructions Not Applicable BID Qty: 10 Rx Instructions: As directed gabapentin 300 mg capsule 600 mg PO BEDTIME oxycodone-acetaminophen 7.5-325 mg tablet 1 tab PO ferrous sulfate 325 mg (65 mg iron) tablet,delayed release (DR/EC) 325 mg PO Q OTHER DAY docusate sodium 100 mg capsule 100 mg PO BEDTIME Qty: 90 3RF bisacodyl [Dulcolax (bisacodyl)] 5 mg tablet,delayed release (DR/EC) 10 mg PO BEDTIME Qty: 180 4RF polyethylene glycol 3350 [Miralax] 17 gram/dose powder 17 g PO DAILY Qty: 510 2RF <Haley Strong MD - Last Filed: 04/16/22 14:00> Referrals: [facility] [place] [facility] [Provider Group] - 1 day lEizabeth Dunn MD [Primary Care Provider] - 2 days <Haley Strong MD - Last Filed: 04/16/22 14:00> Stand Alone Forms: Work/School Release <Haley Strong MD - Last Filed: 04/16/22 14:00>
[2022-04-16 14:29] LABS: MANUAL DIFF FLAG NO
[2022-04-16 14:31] LABS: Basophils Percent Auto 0.3 % (0-2); Eosinophils Absolute Auto 0.2 X10*3/uL (0.0-0.4); Eosinophils Percent Auto 2.2 % (0-4); Hematocrit 33.4 % (37.0-47.0); Hemoglobin 10.5 g/dl (12.0-16.0); Imm Gran Abs Auto 0.04 X10*3/uL (0.00-0.03); Imm Gran Pct Auto 0.5 % (0.0-0.4); Lymphocytes Absolute Auto 2.6 X10*3/uL (1.2-4.9); Lymphocytes Percent Auto 29.5 % (20-40); Mean Corpuscular HGB Conc 31.4 g/dl (31.0-35.0); Mean Corpuscular Volume 85.9 fL (80.0-98.0); Mean Platelet Volume 10.2 fL (9.4-12.3); Monocytes Absolute Auto 0.8 X10*3/uL (0.1-1.2); Monocytes Percent Auto 8.7 % (2-11); Neutrophils Absolute Auto 5.2 x10*3/uL (2.0-8.3); Neutrophils Percent Auto 58.8 % (45-73); Platelet Count 270 X10*3/uL (160-400); Red Blood Count 3.89 X10*6/uL (4.20-5.50); Red Cell Distribution Width 14.8 % (11.0-16.0); White Blood Count 8.8 X10*3/uL (4.8-10.8)
[2022-04-16 14:45] LABS: Alanine Aminotransferase 18 U/L (0-31); Albumin Level 3.9 g/dL (3.5-5.0); Alkaline Phosphatase 69 U/L (39-117); Anion Gap 13 (12-20); Aspartate Amino Transferase 23 U/L (5-31); Bilirubin Total < 0.2 mg/dL (0.0-1.0); Blood Urea Nitrogen 18 mg/dL (9-16); Calcium 8.7 mg/dL (8.4-10.2); Carbon Dioxide 27 mmol/L (22-29); Chloride 106 mmol/L (96-108); Creatinine Clr Calc Pharmacy 70.9; Estimated Glomerular Filt Rate > 60; Glucose Random 151 mg/dL (60-115); Potassium 4.5 mmol/L (3.3-5.1); Sodium 141 mmol/L (135-145); Total Protein 6.7 g/dL (6.5-8.0)
[2022-04-16 14:54] LABS: Appearance Urine Clear; Color Urine Yellow; Glucose Urine UA Negative (Negative); Leukocyte Esterase Urine Trace (Negative); Nitrite Urine Negative (Negative); UMIC TRIGGER UACC YES; Urine Blood Negative (Negative); Urine Ketones Negative (Negative); Urine Protein Negative (Neg-Trace)
[2022-04-16 14:58] LABS: Bacteria Urine None Seen (None Seen); Hyaline Casts Urine 0-2 /LPF (0-2); RBC Urine 0-2 /HPF (0-2); Squamous Epithelial Cell Urine 0-2 /HPF (0-2); WBC Urine 0-5 /HPF (0-5)
--- NOTE | 2022-04-16 19:17 | ED.ABDPAIN ---
HPI - Abdominal Pain General Chief Complaint: Abdominal Pain Stated Complaint: abd pain Time Seen by Provider: 04/16/22 18:42 Source: patient Mode of arrival: ambulatory Limitations: no limitations History of Present Illness HPI narrative: This is a 62-year-old female history of anxiety, asthma, chronic idiopathic constipation, depression, diabetes, diverticulosis, fibromyalgia and migraines presenting to the emergency department complaints of abdominal pain and constipation x2 weeks. Patient reports that she has not had a bowel movement for 2 weeks and she has been eating and drinking per usual. She reports she is passing gas however. She tells me that she went to see her GI doctor today who advised her to come in to be evaluated. Patient reporting abdominal pain diffuse in nature worse in the left lower quadrant. Patient reports she thinks she had a fever yesterday however unsure. Patient denies chest pain, shortness of breath, nausea, vomiting, headache, vision changes, difficulties with urination. Patient does have a history of gastric bypass as well as pubovaginal sling and oophorectomy Related Data Home Medications Medication Instructions Recorded Confirmed albuterol sulfate 90 mcg/actuation 2 PO Q4-6H PRN Wheezing 01/01/21 12/04/21 aerosol inhaler clonazepam 1 mg tablet (Klonopin) 1 tab PO TID PRN Anxiety 01/01/21 12/04/21 fluticasone propionate 50 1 - 2 spray intranasal DAILY PRN 01/01/21 12/04/21 mcg/actuation nasal Nasal Congestion spray,suspension hydrochlorothiazide 12.5 mg tablet 1 tab PO DAILY 01/01/21 09/03/21 metformin 500 mg tablet,extended 1 tab PO BID 01/01/21 12/04/21 release 24 hr venlafaxine 150 mg 2 cap PO QAM 01/01/21 12/04/21 capsule,extended release 24 hr melatonin 5 mg tablet 5 mg PO BEDTIME PRN 12/05/21 triamcinolone acetonide 0.1 % appl topical BID 12/05/21 topical cream acetaminophen 650 mg 650 mg PO Q6H PRN fever 12/27/21 tablet,extended release blood sugar diagnostic (FreeStyle #10 ea 12/27/21 Lite Strips) emnmmyiauc-rvkfqhoklehym-yrtnohep 1 cap PO Q6H PRN 12/27/21 50 mg-325 mg-40 mg capsule ferrous sulfate 325 mg (65 mg 325 mg PO Q OTHER DAY 03/11/22 iron) tablet,delayed release gabapentin 300 mg capsule 600 mg PO BEDTIME 03/11/22 oxycodone-acetaminophen 7.5 mg-325 1 tab PO severe pain 03/11/22 mg tablet trazodone 100 mg tablet 200 mg PO BEDTIME 03/11/22 Previous Rx's Medication Instructions Recorded famotidine 20 mg tablet (Pepcid) 20 mg PO BID 7 days #14 tabs 11/12/21 prucalopride 2 mg tablet 2 mg PO DAILY 30 days #30 tabs 12/25/21 diclofenac sodium 1 % topical gel 2 g topical QID #100 grams 02/13/22 (Voltaren Arthritis Pain) lidocaine 5 % topical patch 1 patch topical DAILY #30 ea 02/13/22 bisacodyl 5 mg tablet,delayed 10 mg PO BEDTIME #180 tabs 03/11/22 release (Dulcolax (bisacodyl)) docusate sodium 100 mg capsule 100 mg PO BEDTIME #90 caps 03/11/22 polyethylene glycol 3350 17 17 g PO DAILY #510 grams 03/11/22 gram/dose oral powder (Miralax) benzonatate 200 mg capsule 200 mg PO TID PRN cough #30 caps 03/29/22 doxycycline hyclate 100 mg tablet 100 mg PO BID #20 tabs 03/29/22 tramadol 50 mg tablet 50 mg PO Q6H PRN pain #20 tabs 03/29/22 lactulose 10 gram/15 mL oral 20 g (30 mL) PO BID #473 mL 04/09/22 solution Allergies Allergy/AdvReac Type Severity Reaction Status Date / Time morphine [MORPHINE] Allergy Intermediate PALPITATIONS, Verified 03/29/22 03:17 tachicardia quetiapine [Seroquel] Allergy Unknown Unknown Verified 03/29/22 03:17 orphenadrine [ORPHENADRINE] AdvReac Intermediate RAPID Verified 03/29/22 03:17 HEART RATE Review of Systems Review of Systems Constitutional : No Weight loss, No Fever, No Chills, No Fatigue, No Malaise ENT/Mouth : No sore throat, No Rhinorrhea Eyes: No Eye Pain, No Swelling, No Redness Cardiovascular : No Chest Pain, No SOB, No Dyspnea on Exertion, No Orthopnea, No Edema, No Palpitations Respiratory : No Cough, No Sputum, No Wheezing Gastrointestinal : No Nausea, No Vomiting, No Diarrhea, + Constipation, + abdominal Pain, No Hematochezia, No Melena Genitourinary : No Dysuria, No Urinary Frequency, No Hematuria, Musculoskeletal : No joint pain, No Myalgias, No Joint Swelling Skin : No Skin Lesions, No rash Neuro : No Weakness, No Numbness, No Dizziness, No Headache Psych : No Anxiety/Panic, No Depression All other systems reviewed and are negative Yes all other systems are reviewed and are negative [facility] Past Medical History Attestation statement: The following information was validated with the patient. Source: old records reviewed and nursing notes reviewed Medical History Anxiety Asthma Chronic idiopathic constipation Depression Diabetes 1.5, managed as type 2 Diverticulosis Fibromyalgia Migraine Surgical History Gastric bypass status for obesity H/O colonoscopy History of pubovaginal sling Hx of bilateral breast reduction surgery Hx of oophorectomy Family History Family History Mother Colon cancer Social History Social History Household Members Other:: lives alone Housing: Condominium Alcohol intake: never Patient Tobacco Use Status: Never used Tobacco Advance Directives: No Advance Directives Information Provided: No service: No Current occupational status: disabled Gender identity: Female Physical Exam ED Vital Signs: Vital Signs - 24 hr 04/16/22 13:57 04/16/22 19:23 Temperature 98.1 F Pulse Rate 70 79 Respiratory Rate 16 16 Blood Pressure 143/70 H 126/70 Pulse Oximetry 100 99 Oxygen Delivery Method Room Air Room Air BMI result Body Mass Index 28.0 vss Appearance: Alert.? Oriented X3.? No acute distress.? Head: Normocephalic, atraumatic, no step-offs or deformities Eyes: Pupils equal, round and reactive to light.? ENT: Pharynx normal.? Neck: Normal inspection.? Neck supple.? CVS: Normal heart rate and rhythm.? Pulses normal.? Respiratory: No respiratory distress.? Breath sounds normal.? Abdomen: Soft and diffusely tender abdomen with normoactive bowel sounds.? Skin: Skin warm and dry.? Normal skin color.? Normal skin turgor.? Extremities: No lower extremity edema.? No calf ttp. 5/5 strength to bilateral upper and lower extremities Back: No midline tenderness, no C-spine tenderness, full range of motion, no CVA tenderness bilaterally Neuro: Oriented X 3.? No motor deficit.? No sensory deficit. CN 2-12 intact Course Reevaluation(s) Reevaluation #1: CBC demonstrating a normocytic anemia which is patient's baseline. No leukocytosis. Chemistry with no acute findings requiring intervention. UA clean. KUB revealed no obstruction with moderate constipation. Colace and senna ordered at this time. CT of the abdomen pelvis with no acute findings to explain patient's diffuse abdominal pain. Time: 21:33 Medical Decision Making Medical Decision Making [facility] Narrative: 190 62-year-old female presents with constipation, abdominal pain worse in the left lower quadrant. Physical examination with diffuse abdominal tenderness with normoactive bowel sounds, pain worse in the left lower quadrant. Regular rate and rhythm. Lungs clear. Abdomen soft. Neuro nonfocal. Vital signs stable. Likely chronic constipation. Other differentials include small-bowel obstruction, diverticulitis. Unlikely acute abdomen, large bowel obstruction. Plan labs, imaging, urine. Medications Administered Discontinued Medications Generic Name Dose Route Start Last Admin Trade Name Freq PRN Reason Stop Dose Admin Iohexol 100 ml 04/16/22 19:45 04/16/22 19:45 Iohexol 350 Mg/Ml 100 Ml Infus..Btl IV 04/16/22 19:46 85 ml ONCE ONE Administration Critical Care Time Critical Care Time Critical Care Time: No Discharge Plan Discharge Clinical Impression: Chronic idiopathic constipation Patient Disposition: Home, Self-Care Additional Instructions: Take your medications as prescribed. If you were prescribed antibiotics today, it is important that you take your medication to their entirety, do not skip any doses, do not finish them early. Follow-up with your primary care provider this week. Return to the emergency department with new or worsening symptoms. Such as fevers, chills, chest pain, shortness of breath, nausea, vomiting, dizziness, headache, vision changes, lethargy In case of emergency call 911 Take medications that were prescribed to by her GI doctor. Prescriptions: No Action Motegrity 2 mg tablet 2 mg PO DAILY 30 Days Qty: 30 3RF lactulose 10 gram/15 mL solution 20 g PO BID Qty: 473 2RF metformin 500 mg tablet extended release 24 hr 1 tab PO BID clonazepam [Klonopin] 1 mg tablet 1 tab PO TID PRN (Reason: Anxiety) venlafaxine 150 mg capsule,extended release 24hr 2 cap PO QAM albuterol sulfate 90 mcg/actuation HFA aerosol inhaler 2 PO Q4-6H PRN (Reason: Wheezing) fluticasone propionate 50 mcg/actuation spray,suspension 1 - 2 spray intranasal DAILY PRN (Reason: Nasal Congestion) hydrochlorothiazide 12.5 mg tablet 1 tab PO DAILY trazodone 100 mg tablet 200 mg PO BEDTIME lidocaine 5 % adhesive patch,medicated 1 patch topical DAILY Qty: 30 0RF Rx Instructions: leave on most painful area for up to 12 hrs diclofenac sodium [Voltaren Arthritis Pain] 1 % gel 2 g topical QID Qty: 100 0RF Rx Instructions: apply to single elbow, wrist or hand; for hand includes palm/fingers/back of hand benzonatate 200 mg capsule 200 mg PO TID PRN (Reason: cough) Qty: 30 0RF tramadol 50 mg tablet 50 mg PO Q6H PRN (Reason: pain) Qty: 20 0RF doxycycline hyclate 100 mg tablet 100 mg PO BID Qty: 20 0RF famotidine [Pepcid] 20 mg tablet 20 mg PO BID 7 Days Qty: 14 0RF triamcinolone acetonide 0.1 % cream topical BID melatonin 5 mg tablet 5 mg PO BEDTIME PRN acetaminophen 650 mg tablet extended release 650 mg PO Q6H PRN (Reason: fever) tlxrtymhob-hvhbfhqykydpe-yshk 50-325-40 mg capsule 1 cap PO Q6H PRN (DME) FreeStyle Lite Strips Strip See Rx Instructions Not Applicable BID Qty: 10 Rx Instructions: As directed gabapentin 300 mg capsule 600 mg PO BEDTIME oxycodone-acetaminophen 7.5-325 mg tablet 1 tab PO ferrous sulfate 325 mg (65 mg iron) tablet,delayed release (DR/EC) 325 mg PO Q OTHER DAY docusate sodium 100 mg capsule 100 mg PO BEDTIME Qty: 90 3RF bisacodyl [Dulcolax (bisacodyl)] 5 mg tablet,delayed release (DR/EC) 10 mg PO BEDTIME Qty: 180 4RF polyethylene glycol 3350 [Miralax] 17 gram/dose powder 17 g PO DAILY Qty: 510 2RF Referrals: [facility] – [place] [facility] [Provider Group] - 1 day Elizabeth Dunn MD [Primary Care Provider] - 2 days Stand Alone Forms: Work/School Release
[2022-04-16 19:23] VITALS: BP 126/70; PULSE 79; RESP 16; TEMP 36.7; O2SAT 99
[2022-04-16] MEDS: iohexoL 350 MG/ML 100 ML INFUS..BTL IV (19:45)
[2022-04-16] MEDS: Simethicone 80 MG TAB.CHEW 160 MG PO (21:47)
[2022-04-16 22:04] LABS: Lipase 32 U/L (8-78)
== END 2022-04-16 21:59 | disposition home or self-care (01) ==
PROVIDERS: Physician Assistant; Student in an Organized Health Care Education/Training Program; Emergency Provider Internal Medicine; PCP Internal Medicine
DX: K59.00 Constipation, unspecified (principal); R10.13 Epigastric pain; Z79.899 Other long term (current) drug therapy
CPT/HCPCS: 36415; 74018; 74177; 80053; 81001; 83690; 85025; 99283; 99284; Q9967

== ENCOUNTER → 2022-04-17 13:00 | Outpatient (BNVA) | payer MEDICAID, SELFPAY | PROVIDERS: PCP Internal Medicine; Visit Provider Nurse Practitioner Family | DX: K59.04 Chronic idiopathic constipation (principal); K57.90 Diverticulosis of intestine, part unspecified, without perforation or abscess without bleeding; R10.32 Left lower quadrant pain; Z98.84 Bariatric surgery status | CPT/HCPCS: 99212 ==

== ENCOUNTER 2022-05-03 10:18 | Outpatient (REF) | payer MEDICAID, SELFPAY | END 2022-05-03 10:19 | disposition home or self-care (01) | LOC: HO.US 10:18 | PROVIDERS: Visit Provider Internal Medicine Hypertension Specialist | DX: N39.0 Urinary tract infection, site not specified (principal) | CPT/HCPCS: 76775 ==

== ENCOUNTER 2022-05-10 10:02 | Outpatient (REF) | payer MEDICAID, SELFPAY ==
--- NOTE | ~2022-05-10 | MM_ITS ---
EXAMINATION: MM SCREENING DIGITAL BREAST TOMOSYNTHESIS, BILATERAL CLINICAL INFORMATION: Screening. Asymptomatic. The lifetime risk of breast cancer based on the Tyrer-Cuzick Model is 4%. COMPARISON: Mammography: 05/09/2021, 03/21/2020, 02/11/2019 TECHNIQUE: Digital breast tomosynthesis is performed in both the craniocaudal and mediolateral oblique views along with computer-aided detection (CAD). Synthesized 2D images are generated from the tomosynthesis. FINDINGS: There are scattered areas of fibroglandular density (ACR BI-RADS breast composition Category b). There are no significant masses, abnormal calcifications, or other abnormalities. Parenchymal pattern is similar to prior studies. There is no developing density or architectural abnormality. The axilla and skin contours are unremarkable. No significant changes. MM/MM tomosynthesis screening BI IMPRESSION: No mammographic evidence of malignancy. ASSESSMENT: BI-RADS 1: Negative RECOMMENDATION: Routine annual mammography screening. This patient's information was entered into a reminder system with a target due date for their next mammogram.
--- NOTE | ~2022-05-10 | US_ITS ---
EXAMINATION: US LOWER EXTREMITY VENOUS (REFLUX EXAM), BILATERAL CLINICAL INDICATION: Varicose veins COMPARISON: Bilateral lower extremity duplex on 06/04/2021 TECHNIQUE: Color flow triplex imaging and compression Doppler was performed to evaluate both the deep and the superficial systems bilaterally. To evaluate the superficial system, the examination was performed in the upright position. Color-flow Doppler ultrasound and compression ultrasound were utilized. In addition, maneuvers were utilized to demonstrate reflux. FINDINGS: 1. DEEP VENOUS ULTRASOUND OF THE RIGHT LOWER EXTREMITY: Common Femoral Vein: Compressible, normal respiratory variation and augmented flow. Femoral Vein: Compressible, normal color flow and augmentation. Popliteal Vein: Compressible, normal augmentation. Deep Reflux: There is no evidence of reflux in the deep system in either the common femoral vein or the popliteal vein. There is no evidence of a Watts's cyst. 2. SUPERFICIAL ULTRASOUND WITH DOPPLER OF RIGHT LOWER EXTREMITY: GREAT SAPHENOUS VEIN: Saphenofemoral Junction: 0.8 cm; Reflux: 0 ms Proximal Thigh: 0.6 cm; Reflux: 0 ms Mid Thigh: 0.2 cm; Reflux: 0 ms Above Knee: 0.3 cm; Reflux: 0 ms At Knee: 0.4 cm; Reflux: 0 ms Below Knee: 0.3 cm; Reflux: 0 ms Mid Calf: 0.2 cm; Reflux: 0 ms Ankle: 0.3 cm; Reflux: 0 ms DUPLICATED MEDIAL GREAT SAPHENOUS VEIN: Diameter: None Imaged Reflux: NA DUPLICATED LATERAL GREAT SAPHENOUS VEIN: Diameter: 0.3 cm at the saphenofemoral junction Reflux: NA Diameter: 0.2 at the mid thigh Reflux: NA SMALL SAPHENOUS VEIN: Proximal: 0.2 cm; Reflux: 0 ms Distal: 0.3 cm; Reflux: 0 ms VEIN OF GIACOMINI: None Imaged. PERFORATORS: Location: None Imaged Size: NA Reflux: NA VARICOSITIES: Location: None Imaged Size: NA Reflux: NA 3. DEEP VENOUS ULTRASOUND OF THE LEFT LOWER EXTREMITY: Common Femoral Vein: Compressible, normal respiratory variation and augmented flow. Femoral Vein: Compressible, normal color flow and augmentation. Popliteal Vein: Compressible, normal augmentation. Deep Reflux: There is no evidence of reflux in the deep system in either the common femoral vein or the popliteal vein. There is no evidence of a Watts's cyst. 4. SUPERFICIAL ULTRASOUND WITH DOPPLER OF LEFT LOWER EXTREMITY: GREAT SAPHENOUS VEIN: Saphenofemoral Junction: 0.7 cm; Reflux: 0 ms Proximal Thigh: 0.4 cm; Reflux: 0 ms Mid Thigh: 0.2 cm; Reflux: 0 ms Above Knee: 0.3 cm; Reflux: 0 ms At Knee: 0.3 cm; Reflux: 0 ms Below Knee: 0.2 cm; Reflux: 0 ms Mid Calf: 0.3 cm; Reflux: 0 ms Ankle: 0.2 cm; Reflux: 0 ms DUPLICATED MEDIAL GREAT SAPHENOUS VEIN: Diameter: 0.4cm at the saphenofemoral junction Reflux: NA Diameter: 0.2cm at the mid thigh Reflux: NA DUPLICATED LATERAL GREAT SAPHENOUS VEIN: Diameter: None Imaged Reflux: NA SMALL SAPHENOUS VEIN: Proximal: 0.2 cm; Reflux: 0 ms Distal: 0.3 cm; Reflux: 0 ms VEIN OF GIACOMINI: None Imaged. PERFORATORS: Location: None Imaged Size: NA Reflux: NA VARICOSITIES: Location: None Imaged Size: NA Reflux: NA US/US venous duplex LE BI IMPRESSION: 1. No evidence of DVT or deep venous reflux. 2. No significant reflux in the bilateral great saphenous veins or small saphenous veins.
== END 2022-05-10 10:03 | disposition home or self-care (01) ==
LOC: HO.US 10:02
PROVIDERS: Visit Provider Surgery Vascular Surgery
DX: I83.11 Varicose veins of right lower extremity with inflammation (principal); Z12.31 Encounter for screening mammogram for malignant neoplasm of breast
CPT/HCPCS: 77063; 77067; 93970

== ENCOUNTER → 2022-05-14 10:43 | Outpatient (BNVA) | payer MEDICAID, SELFPAY | PROVIDERS: PCP Internal Medicine; Visit Provider Surgery Vascular Surgery | DX: M79.606 Pain in leg, unspecified (principal); E11.9 Type 2 diabetes mellitus without complications | CPT/HCPCS: 99212 ==

== ENCOUNTER → 2022-05-15 12:56 | Outpatient (BNVA) | payer MEDICAID, SELFPAY | PROVIDERS: PCP Internal Medicine; Visit Provider Urology | DX: R39.11 Hesitancy of micturition (principal); G89.29 Other chronic pain; Z96.0 Presence of urogenital implants | CPT/HCPCS: 51798; 99212 ==

== ENCOUNTER 2022-05-15 21:02 | Emergency (ER) | payer MEDICAID, SELFPAY ==
[2022-05-15 21:25] VITALS: BP 143/67; PULSE 68; RESP 20; TEMP 36.6; O2SAT 98; BMI 26.2
[2022-05-15 21:48] LABS: MANUAL DIFF FLAG NO
[2022-05-15 21:55] LABS: Basophils Percent Auto 0.3 % (0-2); Eosinophils Absolute Auto 0.3 X10*3/uL (0.0-0.4); Eosinophils Percent Auto 3.7 % (0-4); Hematocrit 32.4 % (37.0-47.0); Hemoglobin 10.5 g/dl (12.0-16.0); Imm Gran Abs Auto 0.04 X10*3/uL (0.00-0.03); Imm Gran Pct Auto 0.6 % (0.0-0.4); Lymphocytes Absolute Auto 2.2 X10*3/uL (1.2-4.9); Lymphocytes Percent Auto 30.4 % (20-40); Mean Corpuscular HGB Conc 32.4 g/dl (31.0-35.0); Mean Corpuscular Hemoglobin 26.4 pg (27.0-33.0); Mean Corpuscular Volume 81.6 fL (80.0-98.0); Monocytes Absolute Auto 0.7 X10*3/uL (0.1-1.2); Monocytes Percent Auto 9.8 % (2-11); Neutrophils Percent Auto 55.2 % (45-73); Platelet Count 300 X10*3/uL (160-400); Red Blood Count 3.97 X10*6/uL (4.20-5.50); Red Cell Distribution Width 14.2 % (11.0-16.0); White Blood Count 7.2 X10*3/uL (4.8-10.8)
[2022-05-15 22:24] LABS: Anion Gap 16 (12-20); Blood Urea Nitrogen 22 mg/dL (9-16); Calcium 9.2 mg/dL (8.4-10.2); Carbon Dioxide 24 mmol/L (22-29); Chloride 103 mmol/L (96-108); Creatinine Clr Calc Pharmacy 78.1; Estimated Glomerular Filt Rate > 60; Glucose Random 79 mg/dL (60-115); Potassium 4.8 mmol/L (3.3-5.1); Sodium 138 mmol/L (135-145)
[2022-05-16 02:07] VITALS: BP 122/69; PULSE 65; RESP 19; TEMP 36.8; O2SAT 98
[2022-05-16 02:09] VITALS: BP 122/69; PULSE 65; RESP 19; TEMP 36.7; O2SAT 98
--- NOTE | 2022-05-16 02:59 | ED.EXTPRO ---
HPI - Extremity Problem General Chief complaint: Extremity Problem Stated complaint: diabetic, feet swollen, severe pain Time Seen by Provider: 05/16/22 02:50 Source: patient Mode of arrival: ambulatory Limitations: no limitations History of Present Illness HPI Narrative: 62 year old female known history of diabetes and fibromyalgia presented with bilateral feet pain for the past 2 days patient feels like pins and needle in both feet up to both ankles patient did not take her fibromyalgia medication for the past 3 days. No trauma, no fever, no chills, no SOB, no chest pain. Related Data Home Medications Medication Instructions Recorded Confirmed albuterol sulfate 90 mcg/actuation 2 PO Q4-6H PRN Wheezing 01/01/21 05/15/22 aerosol inhaler clonazepam 1 mg tablet (Klonopin) 1 tab PO TID PRN Anxiety 01/01/21 05/15/22 fluticasone propionate 50 1 - 2 spray intranasal DAILY PRN 01/01/21 05/15/22 mcg/actuation nasal Nasal Congestion spray,suspension hydrochlorothiazide 12.5 mg tablet 1 tab PO DAILY 01/01/21 05/15/22 metformin 500 mg tablet,extended 1 tab PO BID 01/01/21 05/15/22 release 24 hr venlafaxine 150 mg 2 cap PO QAM 01/01/21 05/15/22 capsule,extended release 24 hr melatonin 5 mg tablet 5 mg PO BEDTIME PRN 12/05/21 05/15/22 triamcinolone acetonide 0.1 % appl topical BID 12/05/21 05/15/22 topical cream acetaminophen 650 mg 650 mg PO Q6H PRN fever 12/27/21 05/15/22 tablet,extended release blood sugar diagnostic (FreeStyle #10 ea 12/27/21 05/15/22 Lite Strips) [id number]-zyiyndxygfbub-vahezfxx 1 cap PO Q6H PRN 12/27/21 05/15/22 50 mg-325 mg-40 mg capsule ferrous sulfate 325 mg (65 mg 325 mg PO Q OTHER DAY 03/11/22 05/15/22 iron) tablet,delayed release gabapentin 300 mg capsule 600 mg PO BEDTIME 03/11/22 05/15/22 oxycodone-acetaminophen 7.5 mg-325 1 tab PO severe pain 03/11/22 05/15/22 mg tablet trazodone 100 mg tablet 200 mg PO BEDTIME 03/11/22 05/15/22 Previous Rx's Medication Instructions Recorded famotidine 20 mg tablet (Pepcid) 20 mg PO BID 7 days #14 tabs 11/12/21 diclofenac sodium 1 % topical gel 2 g topical QID #100 grams 02/13/22 (Voltaren Arthritis Pain) lidocaine 5 % topical patch 1 patch topical DAILY #30 ea 02/13/22 bisacodyl 5 mg tablet,delayed 10 mg PO BEDTIME #180 tabs 03/11/22 release (Dulcolax (bisacodyl)) docusate sodium 100 mg capsule 100 mg PO BEDTIME #90 caps 03/11/22 polyethylene glycol 3350 17 17 g PO DAILY #510 grams 03/11/22 gram/dose oral powder (Miralax) benzonatate 200 mg capsule 200 mg PO TID PRN cough #30 caps 03/29/22 doxycycline hyclate 100 mg tablet 100 mg PO BID #20 tabs 03/29/22 tramadol 50 mg tablet 50 mg PO Q6H PRN pain #20 tabs 03/29/22 lactulose 10 gram/15 mL oral 20 g (30 mL) PO BID #473 mL 04/09/22 solution prucalopride 2 mg tablet 2 mg PO DAILY 30 days #30 tabs 04/17/22 simethicone 125 mg capsule (Gas 125 mg PO TID-QID PRN abdominal 04/17/22 Relief (simethicone)) distention #120 caps gabapentin 600 mg tablet 600 mg PO DAILY #14 tabs 05/16/22 (Neurontin) Allergies Allergy/AdvReac Type Severity Reaction Status Date / Time morphine [MORPHINE] Allergy Intermediate PALPITATIONS, Verified 05/15/22 21:27 tachicardia quetiapine [Seroquel] Allergy Unknown Unknown Verified 05/15/22 21:27 orphenadrine [ORPHENADRINE] AdvReac Intermediate RAPID Verified 05/15/22 21:27 HEART RATE Review of Systems Review of Systems: All other systems are reviewed and are negative Constitutional: Reports as per HPI and Reports no additional constitutional complaints Eyes: Reports as per HPI and Reports no additional eye complaints Reports system reviewed and no additional complaints, except as documented Cardiovascular: Reports as per HPI and Reports no additional cardiovascular complaints Respiratory: Reports as per HPI and Reports no additional respiratory complaints Gastrointestinal: Reports as per HPI and Reports no additional gastrointestinal complaints Genitourinary: Reports no additional female genitourinary complaints Musculoskeletal: Reports no additional musculoskeletal complaints Skin/Breast: Reports system reviewed and no additional complaints, except as docu Psychiatric: Reports no additional psychiatric complaints Endocrine: Reports no additional endocrine complaints Hematologic/Lymphatic: Reports no additional hematologic/lymphatic complaints Allergic/Immunologic: Reports no additional allergic/immunologic complaints Reports system reviewed and no additional complaints, except as documented and Reports Abnormal speech present [facility] Past Medical History Medical History Anxiety Asthma Chronic idiopathic constipation Depression Diabetes 1.5, managed as type 2 Diverticulosis Fibromyalgia Migraine Surgical History Gastric bypass status for obesity H/O colonoscopy History of pubovaginal sling Hx of bilateral breast reduction surgery Hx of oophorectomy Family History Family History Mother Colon cancer Social History Social History Household Members Other:: lives alone Housing: Condominium Alcohol intake: never Patient Tobacco Use Status: Never used Tobacco Smoked in Last 30 Days: No Use of substances other than those prescribed or required for medical reasons: No Advance Directives: No Advance Directives Information Provided: Yes Patient : No service: No Current occupational status: disabled Gender identity: Female Physical Exam Vital Signs: Vital Signs: Last Vital Signs Temp 98.1 F 05/16/22 04:57 Pulse 66 05/16/22 04:57 Resp 18 05/16/22 04:57 BP 125/72 05/16/22 04:57 Pulse Ox 99 05/16/22 04:57 O2 Del Method 05/16/22 04:57 BMI result Body Mass Index 26.2 vital signs have been reviewed as appeared to be correct. Blood pressure normal. Heart rate normal. Respiration rate normal. Temperature normal. Oxygen saturation normal. Appearance: Alert. Oriented X3. No acute distress. Head: Normal external exam. Normocephalic. Atraumatic. No Ortega signs noted. No raccoon eyes noted Eyes: PERRLA. EOMI. Conjunctiva and sclera normal. Eyelids normal. ENT: TM's Normal. Pharynx normal. Uvula midline. Moist mucous membranes. No trismus noted. No drooling noted. No muffled voice noted. Neck: Normal inspection. Neck supple. FROM. No adenopathy. Thyroid Normal. No meningeal signs. No neck mass noted. CVS: Normal heart rate and rhythm. Heart sound normal. No murmurs noted. Pulses normal throughout. Respiratory: No respiratory distress. Painless inspiration. Breath sounds normal. No wheezes/rales/rhonchi noted. Chest nontender. No accessory muscle usage noted or decreased air movement noted. Abdomen: Soft and nontender. Bowel sounds normal in all 4 quadrants. No distention noted. No organomegaly noted. No visible injury noted. Back: No CVA tenderness. Full range of motion noted. Skin: Skin warm and dry. Normal skin color. Normal skin turgor. No rashes/lesions/lacerations noted. Extremities: No lower extremity edema. Extremities exhibit normal range of motion. Extremities nontender. Neurovascularly intact, no ischemic change, increase pencil needle feeling with touching both feet, intact DP/PT pulses Neuro: Oriented X 3. Cranial nerve exam: II-XII are grossly intact No motor deficit. No sensory deficit. Reflexes normal. Course Course Course Narrative: Longstanding diabetes and fibromyalgia presented with bilateral feet pain due to max of fibromyalgia and peripheral neuropathy will try Neurontin/ oxycodone while in the ED. clinical scenario do not indicate DVT. Reevaluation(s) Reevaluation #1: patient feels better after given Dilaudid/Toradol IM, repeat neurovascular exam to both feet is unremarkable feet are both warm no ischemic change good DP/ PT pulsation. Time: 06:22 Medications Administered Discontinued Medications Generic Name Dose Route Start Last Admin Trade Name Freq PRN Reason Stop Dose Admin Gabapentin 600 mg 05/16/22 02:58 05/16/22 03:04 Gabapentin 600 Mg Tablet PO 05/16/22 02:59 600 mg ONCE ONE Administration Hydromorphone HCl 2 mg 05/16/22 05:53 05/16/22 06:03 Hydromorphone Hcl 2 Mg/Ml Vial IM 05/16/22 05:54 2 mg ONCE ONE Administration Protocol Ketorolac Tromethamine 60 mg 05/16/22 05:53 05/16/22 06:03 Ketorolac Tromethamine 60 Mg/2 Ml Vial IM 05/16/22 05:54 60 mg ONCE ONE Administration Oxycodone HCl 5 mg 05/16/22 02:58 05/16/22 03:04 Oxycodone Hcl Immed Release 5 Mg Tablet PO 05/16/22 02:59 5 mg ONCE ONE Administration Medical Decision Making Differential Diagnosis Differential Diagnoses: The differential diagnosis associated with the presentation includes ( Diabetic peripheral neuropathy, fibromyalgia, trauma, fracture or dislocation) Lab Data MDM Lab Attestation statement: I reviewed the patient's lab results. Result Diagrams: 05/15/22 21:44 05/15/22 21:44 Labs: Lab Results 05/15/22 05/15/22 Range/Units 21:44 21:44 WBC 7.2 (4.8-10.8) X10*3/uL RBC 3.97 L (4.20-5.50) X10*6/uL Hgb 10.5 L (12.0-16.0) g/dl Hct 32.4 L (37.0-47.0) % MCV 81.6 (80.0-98.0) fL MCH 26.4 L (27.0-33.0) pg MCHC 32.4 (31.0-35.0) g/dl RDW 14.2 (11.0-16.0) % Plt Count 300 (160-400) X10*3/uL MPV 10.0 (9.4-12.3) fL Immature Gran % (Auto) 0.6 H (0.0-0.4) % Neut % (Auto) 55.2 (45-73) % Lymph % (Auto) 30.4 (20-40) % [place] % (Auto) 9.8 (2-11) % Eos % (Auto) 3.7 (0-4) % Baso % (Auto) 0.3 (0-2) % Lymph # (Auto) 2.2 (1.2-4.9) X10*3/uL [place] # (Auto) 0.7 (0.1-1.2) X10*3/uL Eos # (Auto) 0.3 (0.0-0.4) X10*3/uL Baso # (Auto) 0.0 (0.0-0.2) X10*3/uL Abs Immat Gran (auto) 0.04 H (0.00-0.03) X10*3/uL Absolute Neuts (auto) 4.0 (2.0-8.3) x10*3/uL Absolute Nucleated RBC 0.000 (0.0-0.012) X10*3/uL Nucleated RBC % (auto) 0.0 (0.0-0.2) /100WBC Sodium 138 (135-145) mmol/L Potassium 4.8 (3.3-5.1) mmol/L Chloride 103 (96-108) mmol/L Carbon Dioxide 24 (22-29) mmol/L Anion Gap 16 (12-20) BUN 22 H (9-16) mg/dL Creatinine 0.76 (0.5-1.4) mg/dL Estim Creat Clear Calc 78.1 Estimated GFR > 60 Random Glucose 79 (60-115) mg/dL Calcium 9.2 (8.4-10.2) mg/dL Discharge Plan Discharge Clinical Impression: Fibromyalgia, Diabetes mellitus with peripheral autonomic neuropathy Patient Disposition: Home, Self-Care Instructions: Diabetic Peripheral Neuropathy (ED) Prescriptions: New gabapentin [Neurontin] 600 mg tablet 600 mg PO DAILY Qty: 14 0RF No Action lactulose 10 gram/15 mL solution 20 g PO BID Qty: 473 2RF metformin 500 mg tablet extended release 24 hr 1 tab PO BID clonazepam [Klonopin] 1 mg tablet 1 tab PO TID PRN (Reason: Anxiety) venlafaxine 150 mg capsule,extended release 24hr 2 cap PO QAM albuterol sulfate 90 mcg/actuation HFA aerosol inhaler 2 PO Q4-6H PRN (Reason: Wheezing) fluticasone propionate 50 mcg/actuation spray,suspension 1 - 2 spray intranasal DAILY PRN (Reason: Nasal Congestion) hydrochlorothiazide 12.5 mg tablet 1 tab PO DAILY trazodone 100 mg tablet 200 mg PO BEDTIME lidocaine 5 % adhesive patch,medicated 1 patch topical DAILY Qty: 30 0RF Rx Instructions: leave on most painful area for up to 12 hrs diclofenac sodium [Voltaren Arthritis Pain] 1 % gel 2 g topical QID Qty: 100 0RF Rx Instructions: apply to single elbow, wrist or hand; for hand includes palm/fingers/back of hand benzonatate 200 mg capsule 200 mg PO TID PRN (Reason: cough) Qty: 30 0RF tramadol 50 mg tablet 50 mg PO Q6H PRN (Reason: pain) Qty: 20 0RF doxycycline hyclate 100 mg tablet 100 mg PO BID Qty: 20 0RF famotidine [Pepcid] 20 mg tablet 20 mg PO BID 7 Days Qty: 14 0RF triamcinolone acetonide 0.1 % cream topical BID melatonin 5 mg tablet 5 mg PO BEDTIME PRN acetaminophen 650 mg tablet extended release 650 mg PO Q6H PRN (Reason: fever) aqmosikyeo-wbdlkrhabifvi-zejr 50-325-40 mg capsule 1 cap PO Q6H PRN (DME) FreeStyle Lite Strips Strip See Rx Instructions Not Applicable BID Qty: 10 Rx Instructions: As directed gabapentin 300 mg capsule 600 mg PO BEDTIME oxycodone-acetaminophen 7.5-325 mg tablet 1 tab PO ferrous sulfate 325 mg (65 mg iron) tablet,delayed release (DR/EC) 325 mg PO Q OTHER DAY docusate sodium 100 mg capsule 100 mg PO BEDTIME Qty: 90 3RF bisacodyl [Dulcolax (bisacodyl)] 5 mg tablet,delayed release (DR/EC) 10 mg PO BEDTIME Qty: 180 4RF polyethylene glycol 3350 [Miralax] 17 gram/dose powder 17 g PO DAILY Qty: 510 2RF simethicone [Gas Relief (simethicone)] 125 mg capsule 125 mg PO TID-QID PRN (Reason: abdominal distention) Qty: 120 2RF prucalopride 2 mg tablet 2 mg PO DAILY 30 Days Qty: 30 3RF Referrals: Elizabeth Dunn MD [Primary Care Provider] -
[2022-05-16] MEDS: Gabapentin 600 MG TABLET PO (03:04)
[2022-05-16] MEDS: oxyCODONE HCl Immed Release 5 MG TABLET PO (03:04)
--- NOTE | 2022-05-16 03:06 | PC.NURSE ---
pt medicated according to mar. pt reports 02/18 ain at this time. pt provided with warm blanket as she reports being very cold at this time. pt also requested lights in room be turned down. pt states no additional requests at this time
[2022-05-16 04:57] VITALS: BP 125/72; PULSE 66; RESP 18; TEMP 36.7; O2SAT 99
[2022-05-16] MEDS: HYDROmorphone HCl 2 MG/ML VIAL IM (06:03)
[2022-05-16] MEDS: Ketorolac Tromethamine 60 MG/2 ML VIAL IM (06:03)
--- NOTE | 2022-05-16 07:08 | PC.NURSE ---
pt discharged via wheelchair to husbands car by this rn. pt reportsdecreased pain 6/10 at this time. pt provided with discharge packet. pt verbalized understanding of discharge plan
== END 2022-05-16 07:10 | disposition home or self-care (01) ==
PROVIDERS: Emergency Provider Emergency Medicine; PCP Internal Medicine
DX: M79.7 Fibromyalgia (principal); E13.43 Other specified diabetes mellitus with diabetic autonomic (poly)neuropathy; Z79.84 Long term (current) use of oral hypoglycemic drugs; Z79.899 Other long term (current) drug therapy
CPT/HCPCS: 36415; 80048; 85025; 96372; 99284; J1170; J1885

== ENCOUNTER 2022-05-18 15:51 | Emergency (ER) | payer MEDICAID, SELFPAY ==
[2022-05-18 16:00] VITALS: BP 124/74; PULSE 74; O2SAT 99
[2022-05-18 16:11] VITALS: BP 115/84; PULSE 71; RESP 18; TEMP 37.2; O2SAT 98; BMI 26.6
--- NOTE | 2022-05-18 16:11 | ED.GENADULT ---
HPI - General Adult General Chief complaint: General Medical <CAMELIA Garcia - Last Filed: 05/18/22 16:13> Stated complaint: body aches <CAMELIA Garcia - Last Filed: 05/18/22 16:13> Time Seen by Provider: 05/18/22 17:09 <CAMELIA Garcia - Last Filed: 05/18/22 16:13> Source: patient and EMS <CAMELIA Mcgowan - Last Filed: 05/18/22 18:39> Mode of arrival: EMS <CAMELIA Mcgowan - Last Filed: 05/18/22 18:39> History of Present Illness HPI narrative: 62-year-old female with a past medical history of anxiety, asthma, chronic constipation, depression, diabetes, diverticulosis, migraines, fibromyalgia, presenting to the ED complaining of diffuse chills. Reports her hands, feet, chest, and mouth feel cold. Admits to similar symptoms was evaluated in our ED 2 days ago, taking gabapentin without relief. Denies chest pain, shortness of breath, abdominal pain, nausea/vomiting, fever <CAMELIA Mcgowan - Last Filed: 05/18/22 18:39> Onset (ago): day(s) <CAMELIA Mcgowan - Last Filed: 05/18/22 18:39> Related Data Home medications: Home Medications Medication Instructions Recorded Confirmed albuterol sulfate 90 mcg/actuation 2 PO Q4-6H PRN Wheezing 01/01/21 05/15/22 aerosol inhaler clonazepam 1 mg tablet (Klonopin) 1 tab PO TID PRN Anxiety 01/01/21 05/15/22 fluticasone propionate 50 1 - 2 spray intranasal DAILY PRN 01/01/21 05/15/22 mcg/actuation nasal Nasal Congestion spray,suspension hydrochlorothiazide 12.5 mg tablet 1 tab PO DAILY 01/01/21 05/15/22 metformin 500 mg tablet,extended 1 tab PO BID 01/01/21 05/15/22 release 24 hr venlafaxine 150 mg 2 cap PO QAM 01/01/21 05/15/22 capsule,extended release 24 hr melatonin 5 mg tablet 5 mg PO BEDTIME PRN 12/05/21 05/15/22 triamcinolone acetonide 0.1 % appl topical BID 12/05/21 05/15/22 topical cream acetaminophen 650 mg 650 mg PO Q6H PRN fever 12/27/21 05/15/22 tablet,extended release blood sugar diagnostic (FreeStyle #10 ea 12/27/21 05/15/22 Lite Strips) ysbvaopbmo-ezzoegiitujzu-mrbkrqer 1 cap PO Q6H PRN 12/27/21 05/15/22 50 mg-325 mg-40 mg capsule ferrous sulfate 325 mg (65 mg 325 mg PO Q OTHER DAY 03/11/22 05/15/22 iron) tablet,delayed release gabapentin 300 mg capsule 600 mg PO BEDTIME 03/11/22 05/15/22 oxycodone-acetaminophen 7.5 mg-325 1 tab PO severe pain 03/11/22 05/15/22 mg tablet trazodone 100 mg tablet 200 mg PO BEDTIME 03/11/22 05/15/22 Previous Rx's Medication Instructions Recorded famotidine 20 mg tablet (Pepcid) 20 mg PO BID 7 days #14 tabs 11/12/21 diclofenac sodium 1 % topical gel 2 g topical QID #100 grams 02/13/22 (Voltaren Arthritis Pain) lidocaine 5 % topical patch 1 patch topical DAILY #30 ea 02/13/22 bisacodyl 5 mg tablet,delayed 10 mg PO BEDTIME #180 tabs 03/11/22 release (Dulcolax (bisacodyl)) docusate sodium 100 mg capsule 100 mg PO BEDTIME #90 caps 03/11/22 polyethylene glycol 3350 17 17 g PO DAILY #510 grams 03/11/22 gram/dose oral powder (Miralax) benzonatate 200 mg capsule 200 mg PO TID PRN cough #30 caps 03/29/22 doxycycline hyclate 100 mg tablet 100 mg PO BID #20 tabs 03/29/22 tramadol 50 mg tablet 50 mg PO Q6H PRN pain #20 tabs 03/29/22 lactulose 10 gram/15 mL oral 20 g (30 mL) PO BID #473 mL 04/09/22 solution prucalopride 2 mg tablet 2 mg PO DAILY 30 days #30 tabs 04/17/22 simethicone 125 mg capsule (Gas 125 mg PO TID-QID PRN abdominal 04/17/22 Relief (simethicone)) distention #120 caps gabapentin 600 mg tablet 600 mg PO DAILY #14 tabs 05/16/22 (Neurontin) diclofenac sodium 1 % topical gel 2 g topical QID #100 grams 05/18/22 (Arthritis Pain (diclofenac)) <CAMELIA Garcia - Last Filed: 05/18/22 16:13> Allergies/adverse reactions: Allergies Allergy/AdvReac Type Severity Reaction Status Date / Time morphine [MORPHINE] Allergy Intermediate PALPITATIONS, Verified 05/15/22 21:27 tachicardia quetiapine [Seroquel] Allergy Unknown Unknown Verified 05/15/22 21:27 orphenadrine [ORPHENADRINE] AdvReac Intermediate RAPID Verified 05/15/22 21:27 HEART RATE <CAMELIA Garcia - Last Filed: 05/18/22 16:13> Review of Systems Review of Systems: Constitutional: No Fever, + Chills ENT/Mouth: No Ear Pain, No Nasal Congestion, No sore throat, No Rhinorrhea, No Swallowing Difficulty Cardiovascular: No Chest Pain, No SOB Respiratory: No Cough, No Sputum, No Wheezing Gastrointestinal: No Nausea, No Vomiting, No Diarrhea, No Constipation, No Abdominal pain Genitourinary: No Dysuria, No Urinary Frequency, No Hematuria, No Flank Pain Musculoskeletal: No joint pain, No Myalgias, No Joint Swelling Skin: No Skin Lesions, No rash Neuro: No Weakness, No Numbness, No Paresthesias <CAMELIA Mcgowan - Last Filed: 05/18/22 18:39> Yes all other systems are reviewed and are negative <CAMELIA Mcgowan - Last Filed: 05/18/22 18:39> Constitutional: Constitutional: Reports as per HPI <CAMELIA Mcgowan Last Filed: 05/18/22 18:39> PMFSH Past Medical History Attestation statement: The following information was validated with the patient. <CAMELIA Mcgowan - Last Filed: 05/18/22 18:39> Medical History: Medical History Anxiety Asthma Chronic idiopathic constipation Depression Diabetes 1.5, managed as type 2 Diverticulosis Fibromyalgia Migraine <CAMELIA Garcia Last Filed: 05/18/22 16:13> Surgical History: Surgical History Gastric bypass status for obesity H/O colonoscopy History of pubovaginal sling Hx of bilateral breast reduction surgery Hx of oophorectomy <CAMELIA Garcia - Last Filed: 05/18/22 16:13> Family History Family History: Family History Mother Colon cancer <CAMELIA Garcia - Last Filed: 05/18/22 16:13> Social History Social History: Social History Household Members Other:: lives alone Housing: Condominium Alcohol intake: never Patient Tobacco Use Status: Never used Tobacco Advance Directives: No Advance Directives Information Provided: No service: No Current occupational status: disabled Gender identity: Female <CAMELIA Garcia - Last Filed: 05/18/22 16:13> Physical Exam ED Vital Signs: Vital Signs - 24 hr 05/18/22 16:11 Temperature 98.9 F Pulse Rate 71 Respiratory Rate 18 Blood Pressure 115/84 Pulse Oximetry 98 Oxygen Delivery Method Room Air BMI result Body Mass Index 26.6 <CAMELIA Garcia - Last Filed: 05/18/22 16:13> Vital Signs - 24 hr 05/18/22 16:11 Temperature 98.9 F Pulse Rate 71 Respiratory Rate 18 Blood Pressure 115/84 Pulse Oximetry 98 Oxygen Delivery Method Room Air BMI result Body Mass Index 26.6 <CAMELIA Mcgowan - Last Filed: 05/18/22 18:39> Const General: cooperative, healthy appearing, no acute distress, alert and awake <CAMELIA Mcgowan - Last Filed: 05/18/22 18:39> Orientation/consciousness: patient oriented x3 <CAMELIA Mcgowan - Last Filed: 05/18/22 18:39> Limitations: no limitations <CAMELIA Mcgowan Last Filed: 05/18/22 18:39> HENMT Head: Yes normal to inspection and Yes atraumatic <CAMELIA Mcgowan - Last Filed: 05/18/22 18:39> Ears: hearing grossly normal bilaterally <CAMELIA Mcgowan - Last Filed: 05/18/22 18:39> General nose exam: Normal external nose present <CAMELIA Mcgowan - Last Filed: 05/18/22 18:39> Face and sinus: Yes normal facial exam <CAMELIA Mcgowan - Last Filed: 05/18/22 18:39> Eyes General: appearance normal, both eyes and all related structures <CAMELIA Mcgowan - Last Filed: 05/18/22 18:39> Pupils: Equal, round and reactive pupils present <CAMELIA Mcgowan - Last Filed: 05/18/22 18:39> EOM: EOMs intact bilaterally <CAMELIA Mcgowan - Last Filed: 05/18/22 18:39> Neck Neck: Yes normal visual inspection and Yes no meningeal signs <CAMELIA Mcgowan - Last Filed: 05/18/22 18:39> Resp Effort & Inspection: normal respiratory effort and no respiratory distress <CAMELIA Mcgowan - Last Filed: 05/18/22 18:39> Auscultation: clear to auscultation bilaterally, no rales, no rhonchi and no wheezes <CAMELIA Mcgowan - Last Filed: 05/18/22 18:39> Cardio Rate: regular rate <CAMELIA Mcgowan - Last Filed: 05/18/22 18:39> Heart sounds: S1 normal heart sound present and S2 normal heart sound present <CAMELIA Mcgowan - Last Filed: 05/18/22 18:39> GI Inspection: Yes normal to inspection <CAMELIA Mcgowan - Last Filed: 05/18/22 18:39> Palpation (GI): Soft to palpation, nontender, no guarding and not rigid <CAMELIA Mcgowan - Last Filed: 05/18/22 18:39> Skin Rashes: no rashes <CAMELIA Mcgowan - Last Filed: 05/18/22 18:39> Wounds: no wounds <CAMELIA Mcgowan - Last Filed: 05/18/22 18:39> Neuro General: patient oriented x3, tone normal, moves all extremities, no meningeal signs, no focal motor deficits and CN's II-XI intact bilaterally <CAMELIA Mcgowan Last Filed: 05/18/22 18:39> Cranial nerves: Yes Equal, round and reactive pupils present <CAMELIA Mcgowan Last Filed: 05/18/22 18:39> Gait exam (Neuro): Normal gait present <CAMELIA Mcgowan Last Filed: 05/18/22 18:39> Extrem General: Yes normal to inspection <CAMELIA Mcgowan Last Filed: 05/18/22 18:39> Course Course Course Narrative: RME performed by Jaylene Bailon PA-C. Patient is a 62 year old female presenting to the emergency department with the feeling of coldness everywhere. Patient states that everything hurts. Patient states that she was feeling this same way and was here just a few days ago, filled her Gabapentin prescription, but that isn't helping. Labs ordered. Patient placed back in waiting room pending room availability and results. <CAMELIA Garcia Last Filed: 05/18/22 16:13> RME performed by Jaylene Bailon PA-C. Patient is a 62 year old female presenting to the emergency department with the feeling of coldness everywhere. Patient states that everything hurts. Patient states that she was feeling this same way and was here just a few days ago, filled her Gabapentin prescription, but that isn't helping. Labs ordered. Patient placed back in waiting room pending room availability and results. -[id number]--no leukocytosis. H&H stable. Labs otherwise reassuring -UA not infected -COVID-19/influenza/RSV negative Results discussed with patient including worrisome signs and symptoms and strict return precautions, and when to return to the emergency department. They verbalized understanding and feel safe for discharge at this time. <CAMELIA Mcgowan Last Filed: 05/18/22 18:39> Medications Administered Discontinued Medications Generic Name Dose Route Start Last Admin Trade Name Freq PRN Reason Stop Dose Admin Ketorolac Tromethamine 30 mg 05/18/22 17:27 05/18/22 17:39 Ketorolac Tromethamine 30 Mg/Ml Vial IM 05/18/22 17:28 30 mg ONCE ONE Administration <CAMELIA Garcia Last Filed: 05/18/22 16:13> Medications Administered Discontinued Medications Generic Name Dose Route Start Last Admin Trade Name Bola PRN Reason Stop Dose Admin Ketorolac Tromethamine 30 mg 05/18/22 17:27 05/18/22 17:39 Ketorolac Tromethamine 30 Mg/Ml Vial IM 05/18/22 17:28 30 mg ONCE ONE Administration <CAMELIA Mcgowan - Last Filed: 05/18/22 18:39> Medical Decision Making Medical Decision Making MDM Narrative: 62-year-old female with a past medical history of anxiety, asthma, chronic constipation, depression, diabetes, diverticulosis, migraines, fibromyalgia, presenting to the ED complaining of diffuse chills. On exam vital signs stable, NAD, nontoxic appearing, ambulating with steady gait, abdomen soft/nontender. Concern for fibromyalgia flare vs viral syndrome vs arthralgia/neuropathy. Low suspicion for ACS/PE, vasculitis or infectious etiology Plan: Labs, UA, COVID-19/influenza/RSV testing, IM Toradol Please refer to course for remaining clinical decision making, interpretation of labs/imaging results, and discussions with consultants and/or family members. <CAMELIA Mcgowan - Last Filed: 05/18/22 18:39> Differential Diagnosis Differential Diagnoses: The differential diagnosis associated with the presentation includes <CAMELIA Mcgowan - Last Filed: 05/18/22 18:39> as above <CAMELIA Mcgowan - Last Filed: 05/18/22 18:39> Lab Data [facility] Lab Attestation statement: I reviewed the patient's lab results. <CAMELIA Mcgowan - Last Filed: 05/18/22 18:39> Result Diagrams: 05/18/22 16:46 05/18/22 16:46 <CAMELIA Garcia - Last Filed: 05/18/22 16:13> Labs: Lab Results 05/18/22 05/18/22 05/18/22 Range/Units 16:46 16:46 16:46 WBC 7.0 (4.8-10.8) X10*3/uL RBC 4.04 L (4.20-5.50) X10*6/uL Hgb 10.6 L (12.0-16.0) g/dl Hct 34.0 L (37.0-47.0) % MCV 84.2 (80.0-98.0) fL MCH 26.2 L (27.0-33.0) pg MCHC 31.2 (31.0-35.0) g/dl RDW 14.4 (11.0-16.0) % Plt Count 275 (160-400) X10*3/uL MPV 9.8 (9.4-12.3) fL Immature Gran % (Auto) 0.4 (0.0-0.4) % Neut % (Auto) 60.8 (45-73) % Lymph % (Auto) 25.4 (20-40) % [place] % (Auto) 8.5 (2-11) % Eos % (Auto) 4.6 H (0-4) % Baso % (Auto) 0.3 (0-2) % Lymph # (Auto) 1.8 (1.2-4.9) X10*3/uL [place] # (Auto) 0.6 (0.1-1.2) X10*3/uL Eos # (Auto) 0.3 (0.0-0.4) X10*3/uL Baso # (Auto) 0.0 (0.0-0.2) X10*3/uL Abs Immat Gran (auto) 0.03 (0.00-0.03) X10*3/uL Absolute Neuts (auto) 4.2 (2.0-8.3) x10*3/uL Absolute Nucleated RBC 0.000 (0.0-0.012) X10*3/uL Nucleated RBC % (auto) 0.0 (0.0-0.2) /100WBC Sodium 140 (135-145) mmol/L Potassium 4.7 (3.3-5.1) mmol/L Chloride 107 (96-108) mmol/L Carbon Dioxide 25 (22-29) mmol/L Anion Gap 13 (12-20) BUN 16 (9-16) mg/dL Creatinine 0.79 (0.5-1.4) mg/dL Estim Creat Clear Calc 75.6 Estimated GFR > 60 Random Glucose 155 H (60-115) mg/dL Calcium 9.0 (8.4-10.2) mg/dL Magnesium 1.9 (1.6-2.6) mg/dL Total Bilirubin < 0.2 (0.0-1.0) mg/dL AST 21 (5-31) U/L ALT 16 (0-31) U/L Alkaline Phosphatase 69 (39-117) U/L Total Protein 6.3 L (6.5-8.0) g/dL Albumin 3.7 (3.5-5.0) g/dL Urine Color Urine Appearance Urine pH (5.0-9.0) Ur Specific [place] (1.005-1.025) Urine Protein (Neg-Trace) mg/dL Urine Glucose (UA) (Negative) mg/dL Urine Ketones (Negative) mg/dL Urine Blood (Negative) Urine Nitrite (Negative) Ur Leukocyte Esterase (Negative) Urine RBC (0-2) /HPF Urine WBC (0-5) /HPF Ur Squamous Epith Cells (0-2) /HPF Urine Bacteria (None Seen) Hyaline Casts (0-2) /LPF Influenza Type A (PCR) NEGATIVE (Negative) Influenza Type B (PCR) NEGATIVE (Negative) RSV RNA Qual (PCR) NEGATIVE (Negative) SARS-CoV-2 RNA (RT-PCR) NEGATIVE (Negative) 05/18/22 Range/Units 17:27 WBC (4.8-10.8) X10*3/uL RBC (4.20-5.50) X10*6/uL Hgb (12.0-16.0) g/dl Hct (37.0-47.0) % MCV (80.0-98.0) fL MCH (27.0-33.0) pg MCHC (31.0-35.0) g/dl RDW (11.0-16.0) % Plt Count (160-400) X10*3/uL MPV (9.4-12.3) fL Immature Gran % (Auto) (0.0-0.4) % Neut % (Auto) (45-73) % Lymph % (Auto) (20-40) % [place] % (Auto) (2-11) % Eos % (Auto) (0-4) % Baso % (Auto) (0-2) % Lymph # (Auto) (1.2-4.9) X10*3/uL [place] # (Auto) (0.1-1.2) X10*3/uL Eos # (Auto) (0.0-0.4) X10*3/uL Baso # (Auto) (0.0-0.2) X10*3/uL Abs Immat Gran (auto) (0.00-0.03) X10*3/uL Absolute Neuts (auto) (2.0-8.3) x10*3/uL Absolute Nucleated RBC (0.0-0.012) X10*3/uL Nucleated RBC % (auto) (0.0-0.2) /100WBC Sodium (135-145) mmol/L Potassium (3.3-5.1) mmol/L Chloride (96-108) mmol/L Carbon Dioxide (22-29) mmol/L Anion Gap (12-20) BUN (9-16) mg/dL Creatinine (0.5-1.4) mg/dL Estim Creat Clear Calc Estimated GFR Random Glucose (60-115) mg/dL Calcium (8.4-10.2) mg/dL Magnesium (1.6-2.6) mg/dL Total Bilirubin (0.0-1.0) mg/dL AST (5-31) U/L ALT (0-31) U/L Alkaline Phosphatase (39-117) U/L Total Protein (6.5-8.0) g/dL Albumin (3.5-5.0) g/dL Urine Color Yellow Urine Appearance Clear Urine pH 5.0 (5.0-9.0) Ur Specific [place] 1.020 (1.005-1.025) Urine Protein Negative (Neg-Trace) mg/dL Urine Glucose (UA) Negative (Negative) mg/dL Urine Ketones Negative (Negative) mg/dL Urine Blood Negative (Negative) Urine Nitrite Negative (Negative) Ur Leukocyte Esterase Trace H (Negative) Urine RBC 0-2 (0-2) /HPF Urine WBC 0-5 (0-5) /HPF Ur Squamous Epith Cells 0-2 (0-2) /HPF Urine Bacteria None Seen (None Seen) Hyaline Casts 0-2 (0-2) /LPF Influenza Type A (PCR) (Negative) Influenza Type B (PCR) (Negative) RSV RNA Qual (PCR) (Negative) SARS-CoV-2 RNA (RT-PCR) (Negative) <CAMELIA Garcia - Last Filed: 05/18/22 16:13> Lab Results 05/18/22 05/18/22 05/18/22 Range/Units 16:46 16:46 16:46 WBC 7.0 (4.8-10.8) X10*3/uL RBC 4.04 L (4.20-5.50) X10*6/uL Hgb 10.6 L (12.0-16.0) g/dl Hct 34.0 L (37.0-47.0) % MCV 84.2 (80.0-98.0) fL MCH 26.2 L (27.0-33.0) pg MCHC 31.2 (31.0-35.0) g/dl RDW 14.4 (11.0-16.0) % Plt Count 275 (160-400) X10*3/uL MPV 9.8 (9.4-12.3) fL Immature Gran % (Auto) 0.4 (0.0-0.4) % Neut % (Auto) 60.8 (45-73) % Lymph % (Auto) 25.4 (20-40) % [place] % (Auto) 8.5 (2-11) % Eos % (Auto) 4.6 H (0-4) % Baso % (Auto) 0.3 (0-2) % Lymph # (Auto) 1.8 (1.2-4.9) X10*3/uL [place] # (Auto) 0.6 (0.1-1.2) X10*3/uL Eos # (Auto) 0.3 (0.0-0.4) X10*3/uL Baso # (Auto) 0.0 (0.0-0.2) X10*3/uL Abs Immat Gran (auto) 0.03 (0.00-0.03) X10*3/uL Absolute Neuts (auto) 4.2 (2.0-8.3) x10*3/uL Absolute Nucleated RBC 0.000 (0.0-0.012) X10*3/uL Nucleated RBC % (auto) 0.0 (0.0-0.2) /100WBC Sodium 140 (135-145) mmol/L Potassium 4.7 (3.3-5.1) mmol/L Chloride 107 (96-108) mmol/L Carbon Dioxide 25 (22-29) mmol/L Anion Gap 13 (12-20) BUN 16 (9-16) mg/dL Creatinine 0.79 (0.5-1.4) mg/dL Estim Creat Clear Calc 75.6 Estimated GFR > 60 Random Glucose 155 H (60-115) mg/dL Calcium 9.0 (8.4-10.2) mg/dL Magnesium 1.9 (1.6-2.6) mg/dL Total Bilirubin < 0.2 (0.0-1.0) mg/dL AST 21 (5-31) U/L ALT 16 (0-31) U/L Alkaline Phosphatase 69 (39-117) U/L Total Protein 6.3 L (6.5-8.0) g/dL Albumin 3.7 (3.5-5.0) g/dL Urine Color Urine Appearance Urine pH (5.0-9.0) Ur Specific [place] (1.005-1.025) Urine Protein (Neg-Trace) mg/dL Urine Glucose (UA) (Negative) mg/dL Urine Ketones (Negative) mg/dL Urine Blood (Negative) Urine Nitrite (Negative) Ur Leukocyte Esterase (Negative) Urine RBC (0-2) /HPF Urine WBC (0-5) /HPF Ur Squamous Epith Cells (0-2) /HPF Urine Bacteria (None Seen) Hyaline Casts (0-2) /LPF Influenza Type A (PCR) NEGATIVE (Negative) Influenza Type B (PCR) NEGATIVE (Negative) RSV RNA Qual (PCR) NEGATIVE (Negative) SARS-CoV-2 RNA (RT-PCR) NEGATIVE (Negative) 05/18/22 Range/Units 17:27 WBC (4.8-10.8) X10*3/uL RBC (4.20-5.50) X10*6/uL Hgb (12.0-16.0) g/dl Hct (37.0-47.0) % MCV (80.0-98.0) fL MCH (27.0-33.0) pg MCHC (31.0-35.0) g/dl RDW (11.0-16.0) % Plt Count (160-400) X10*3/uL MPV (9.4-12.3) fL Immature Gran % (Auto) (0.0-0.4) % Neut % (Auto) (45-73) % Lymph % (Auto) (20-40) % [place] % (Auto) (2-11) % Eos % (Auto) (0-4) % Baso % (Auto) (0-2) % Lymph # (Auto) (1.2-4.9) X10*3/uL [place] # (Auto) (0.1-1.2) X10*3/uL Eos # (Auto) (0.0-0.4) X10*3/uL Baso # (Auto) (0.0-0.2) X10*3/uL Abs Immat Gran (auto) (0.00-0.03) X10*3/uL Absolute Neuts (auto) (2.0-8.3) x10*3/uL Absolute Nucleated RBC (0.0-0.012) X10*3/uL Nucleated RBC % (auto) (0.0-0.2) /100WBC Sodium (135-145) mmol/L Potassium (3.3-5.1) mmol/L Chloride (96-108) mmol/L Carbon Dioxide (22-29) mmol/L Anion Gap (12-20) BUN (9-16) mg/dL Creatinine (0.5-1.4) mg/dL Estim Creat Clear Calc Estimated GFR Random Glucose (60-115) mg/dL Calcium (8.4-10.2) mg/dL Magnesium (1.6-2.6) mg/dL Total Bilirubin (0.0-1.0) mg/dL AST (5-31) U/L ALT (0-31) U/L Alkaline Phosphatase (39-117) U/L Total Protein (6.5-8.0) g/dL Albumin (3.5-5.0) g/dL Urine Color Yellow Urine Appearance Clear Urine pH 5.0 (5.0-9.0) Ur Specific [place] 1.020 (1.005-1.025) Urine Protein Negative (Neg-Trace) mg/dL Urine Glucose (UA) Negative (Negative) mg/dL Urine Ketones Negative (Negative) mg/dL Urine Blood Negative (Negative) Urine Nitrite Negative (Negative) Ur Leukocyte Esterase Trace H (Negative) Urine RBC 0-2 (0-2) /HPF Urine WBC 0-5 (0-5) /HPF Ur Squamous Epith Cells 0-2 (0-2) /HPF Urine Bacteria None Seen (None Seen) Hyaline Casts 0-2 (0-2) /LPF Influenza Type A (PCR) (Negative) Influenza Type B (PCR) (Negative) RSV RNA Qual (PCR) (Negative) SARS-CoV-2 RNA (RT-PCR) (Negative) <CAMELIA Mcgowan - Last Filed: 05/18/22 18:39> Discharge Plan Discharge Clinical Impression: Chills, Arthralgia <CAMELIA Garcia - Last Filed: 05/18/22 16:13> Patient Disposition: Home, Self-Care <CAMELIA Garcia - Last Filed: 05/18/22 16:13> Instructions: Arthralgia (ED) <CAMELIA Garcia - Last Filed: 05/18/22 16:13> Additional Instructions: Your blood work was reassuring. Her urine is not infected. Continue home prescribed medications including newly prescribed gabapentin. In addition take ibuprofen and Tylenol as needed Diclofenac as a topical anti-inflammatory cream, use as needed to painful areas Follow-up with her doctors If symptoms persist or worsen return to the emergency department Millan an?lisis de gabby fue tranquilizador. Millan orina no est? infectada. Contin?e con los medicamentos recetados en el hogar, incluida la gabapentina reci?n recetada. Adem?s, tome ibuprofeno y Tylenol seg?n sea necesario. Diclofenaco harper crema antiinflamatoria t?pica, ?selo seg?n sea necesario en las ?reas doloridas Seguimiento con salvador m?dicos. Si los s?ntomas persisten o empeoran, regrese al servicio de urgencias. <CAMELIA Garcia - Last Filed: 05/18/22 16:13> Prescriptions: New diclofenac sodium [Arthritis Pain (diclofenac)] 1 % gel 2 g topical QID Qty: 100 0RF Rx Instructions: apply to single elbow, wrist or hand; for hand includes palm/fingers/back of hand No Action lactulose 10 gram/15 mL solution 20 g PO BID Qty: 473 2RF metformin 500 mg tablet extended release 24 hr 1 tab PO BID clonazepam [Klonopin] 1 mg tablet 1 tab PO TID PRN (Reason: Anxiety) venlafaxine 150 mg capsule,extended release 24hr 2 cap PO QAM albuterol sulfate 90 mcg/actuation HFA aerosol inhaler 2 PO Q4-6H PRN (Reason: Wheezing) fluticasone propionate 50 mcg/actuation spray,suspension 1 - 2 spray intranasal DAILY PRN (Reason: Nasal Congestion) hydrochlorothiazide 12.5 mg tablet 1 tab PO DAILY trazodone 100 mg tablet 200 mg PO BEDTIME lidocaine 5 % adhesive patch,medicated 1 patch topical DAILY Qty: 30 0RF Rx Instructions: leave on most painful area for up to 12 hrs diclofenac sodium [Voltaren Arthritis Pain] 1 % gel 2 g topical QID Qty: 100 0RF Rx Instructions: apply to single elbow, wrist or hand; for hand includes palm/fingers/back of hand benzonatate 200 mg capsule 200 mg PO TID PRN (Reason: cough) Qty: 30 0RF tramadol 50 mg tablet 50 mg PO Q6H PRN (Reason: pain) Qty: 20 0RF doxycycline hyclate 100 mg tablet 100 mg PO BID Qty: 20 0RF famotidine [Pepcid] 20 mg tablet 20 mg PO BID 7 Days Qty: 14 0RF gabapentin [Neurontin] 600 mg tablet 600 mg PO DAILY Qty: 14 0RF triamcinolone acetonide 0.1 % cream topical BID melatonin 5 mg tablet 5 mg PO BEDTIME PRN acetaminophen 650 mg tablet extended release 650 mg PO Q6H PRN (Reason: fever) [id number]-[id number] 50-325-40 mg capsule 1 cap PO Q6H PRN (DME) FreeStyle Lite Strips Strip See Rx Instructions Not Applicable BID Qty: 10 Rx Instructions: As directed gabapentin 300 mg capsule 600 mg PO BEDTIME oxycodone-acetaminophen 7.5-325 mg tablet 1 tab PO ferrous sulfate 325 mg (65 mg iron) tablet,delayed release (DR/EC) 325 mg PO Q OTHER DAY docusate sodium 100 mg capsule 100 mg PO BEDTIME Qty: 90 3RF bisacodyl [Dulcolax (bisacodyl)] 5 mg tablet,delayed release (DR/EC) 10 mg PO BEDTIME Qty: 180 4RF polyethylene glycol 3350 [Miralax] 17 gram/dose powder 17 g PO DAILY Qty: 510 2RF simethicone [Gas Relief (simethicone)] 125 mg capsule 125 mg PO TID-QID PRN (Reason: abdominal distention) Qty: 120 2RF prucalopride 2 mg tablet 2 mg PO DAILY 30 Days Qty: 30 3RF <CAMELIA Garcia - Last Filed: 05/18/22 16:13> Referrals: [facility] [Primary Care Provider] - <CAMELIA Garcia - Last Filed: 05/18/22 16:13> Interventions: ED Discharge Assessment Last Done: 05/18/22 18:02 <CAMELIA Garcia - Last Filed: 05/18/22 16:13> Discharge Date/Time: 05/18/22 18:04 <CAMELIA Garcia - Last Filed: 05/18/22 16:13> Print Language: Uzbek <CAMELIA Garcia - Last Filed: 05/18/22 16:13>
[2022-05-18 16:51] LABS: MANUAL DIFF FLAG NO
[2022-05-18 16:54] LABS: Basophils Percent Auto 0.3 % (0-2); Eosinophils Absolute Auto 0.3 X10*3/uL (0.0-0.4); Eosinophils Percent Auto 4.6 % (0-4); Hemoglobin 10.6 g/dl (12.0-16.0); Imm Gran Abs Auto 0.03 X10*3/uL (0.00-0.03); Imm Gran Pct Auto 0.4 % (0.0-0.4); Lymphocytes Absolute Auto 1.8 X10*3/uL (1.2-4.9); Lymphocytes Percent Auto 25.4 % (20-40); Mean Corpuscular HGB Conc 31.2 g/dl (31.0-35.0); Mean Corpuscular Hemoglobin 26.2 pg (27.0-33.0); Mean Corpuscular Volume 84.2 fL (80.0-98.0); Mean Platelet Volume 9.8 fL (9.4-12.3); Monocytes Absolute Auto 0.6 X10*3/uL (0.1-1.2); Monocytes Percent Auto 8.5 % (2-11); Neutrophils Absolute Auto 4.2 x10*3/uL (2.0-8.3); Neutrophils Percent Auto 60.8 % (45-73); Platelet Count 275 X10*3/uL (160-400); Red Blood Count 4.04 X10*6/uL (4.20-5.50); Red Cell Distribution Width 14.4 % (11.0-16.0)
[2022-05-18 17:11] LABS: Alanine Aminotransferase 16 U/L (0-31); Albumin Level 3.7 g/dL (3.5-5.0); Alkaline Phosphatase 69 U/L (39-117); Anion Gap 13 (12-20); Aspartate Amino Transferase 21 U/L (5-31); Bilirubin Total < 0.2 mg/dL (0.0-1.0); Blood Urea Nitrogen 16 mg/dL (9-16); Carbon Dioxide 25 mmol/L (22-29); Chloride 107 mmol/L (96-108); Creatinine Clr Calc Pharmacy 75.6; Estimated Glomerular Filt Rate > 60; Glucose Random 155 mg/dL (60-115); Magnesium 1.9 mg/dL (1.6-2.6); Potassium 4.7 mmol/L (3.3-5.1); Sodium 140 mmol/L (135-145); Total Protein 6.3 g/dL (6.5-8.0)
[2022-05-18 17:29] LABS: Influenza A PCR NEGATIVE (Negative); Influenza B PCR NEGATIVE (Negative); Resp Syncy Virus RNA Qual PCR NEGATIVE (Negative); SARS COV2 PCR INHOUSE NEGATIVE (Negative)
[2022-05-18 17:34] LABS: Appearance Urine Clear; Color Urine Yellow; Glucose Urine UA Negative (Negative); Leukocyte Esterase Urine Trace (Negative); Nitrite Urine Negative (Negative); UMIC TRIGGER UACC YES; Urine Blood Negative (Negative); Urine Ketones Negative (Negative); Urine Protein Negative (Neg-Trace)
[2022-05-18 17:39] LABS: Bacteria Urine None Seen (None Seen); Hyaline Casts Urine 0-2 /LPF (0-2); RBC Urine 0-2 /HPF (0-2); Squamous Epithelial Cell Urine 0-2 /HPF (0-2); WBC Urine 0-5 /HPF (0-5)
[2022-05-18] MEDS: Ketorolac Tromethamine 30 MG/ML VIAL IM (17:39)
== END 2022-05-18 18:04 | disposition home or self-care (01) ==
PROVIDERS: Physician Assistant; Physician Assistant Medical; Emergency Provider Emergency Medicine
DX: R68.83 Chills (without fever) (principal); M25.50 Pain in unspecified joint; M79.10 Myalgia, unspecified site; Z20.822 Contact with and (suspected) exposure to COVID-19; Z20.828 Contact with and (suspected) exposure to other viral communicable diseases
CPT/HCPCS: 0241U; 80053; 81001; 83735; 85025; 96372; 99283; 99284; J1885

== ENCOUNTER 2022-05-27 15:57 | Emergency (ER) | payer MEDICAID, SELFPAY ==
--- NOTE | ~2022-05-27 | CT_ITS ---
EXAMINATION: CT ABDOMEN AND PELVIS WITH CONTRAST CLINICAL INFORMATION: LLQ pain, bloody stool, hx diverticulosis COMPARISON: 04/16/2022 TECHNIQUE: Multidetector volumetric imaging was performed from the superior aspect of the liver through the pubic symphysis following administration of 85 mL Omnipaque 300 intravenous contrast. Sagittal and coronal reformatted images were obtained on the technologist workstation.. This CT examination was performed using dose optimization techniques as appropriate, variously including the following: *Automated exposure control *Adjustment of mA and/or kV according to patient size (this includes techniques or standardized protocols for targeted exams where dose is matched to indication/reason for exam; i.e. extremities or head) *Use of iterative reconstruction technique DLP: 572 mGy-cm FINDINGS: LUNG BASES: Minimal dependent atelectasis. LIVER, GALLBLADDER, AND BILIARY TREE: The liver is normal in size, shape, and attenuation. No focal hepatic lesion or biliary ductal dilatation is present. The gallbladder is unremarkable with no evidence of radiopaque gallstones, gallbladder wall thickening, or obvious pericholecystic inflammatory changes. PANCREAS: Unremarkable. SPLEEN: Incidental tiny splenic granulomas incidentally noted ADRENAL GLANDS: Unremarkable. KIDNEYS AND URETERS: The kidneys are normal in size, shape, and attenuation. No hydronephrosis, hydroureter, or calculi seen. No perinephric stranding. BLADDER: Unremarkable. GASTROINTESTINAL TRACT: Moderate amount stool seen throughout the colon but no colonic wall thickening or pericolonic inflammatory changes. Normal-appearing appendix in the right lower quadrant. Patient status post Sanket-en-Y gastric bypass. The excluded portion of stomach is decompressed and unremarkable. ABDOMINAL WALL: No significant hernia is appreciated. LYMPHOVASCULAR STRUCTURES: No lymphadenopathy. The aorta is unremarkable. PELVIC VISCERA: Surgically absent OSSEOUS STRUCTURES: Degenerative changes in the spine and hips. CT/CT abdomen pelvis w IV con IMPRESSION: Chronic appearing and postoperative changes as described. I do not appreciate any acute intra-abdominal process when compared to 04/16/2022 study.
[2022-05-27 16:03] VITALS: BP 119/58; PULSE 60; RESP 18; TEMP 36.8; O2SAT 100; BMI 26.6
--- NOTE | 2022-05-27 16:17 | ED.ABDPAIN ---
HPI - Abdominal Pain General Chief Complaint: Abdominal Pain Stated Complaint: Blood in Stool/Abd Pain Time Seen by Provider: 05/27/22 16:06 Source: patient Mode of arrival: EMS Limitations: no limitations History of Present Illness HPI narrative: Patient is a 62-year-old female who presents to the emergency department for evaluation of abdominal pain. She reports left upper left lower quadrant abdominal pain with onset of symptoms approximately 1 week ago. She has had associated nausea with this without vomiting. Reports history of chronic constipation; last bowel movement was 2 days ago. During this time she noticed bright red blood with her bowel movement, has not had any bleeding since then. Denies fevers, chills, diarrhea. Denies hematuria, urinary frequency, dysuria. Related Data Home Medications Medication Instructions Recorded Confirmed albuterol sulfate 90 mcg/actuation 2 PO Q4-6H PRN Wheezing 01/01/21 05/15/22 aerosol inhaler clonazepam 1 mg tablet (Klonopin) 1 tab PO TID PRN Anxiety 01/01/21 05/15/22 fluticasone propionate 50 1 - 2 spray intranasal DAILY PRN 01/01/21 05/15/22 mcg/actuation nasal Nasal Congestion spray,suspension hydrochlorothiazide 12.5 mg tablet 1 tab PO DAILY 01/01/21 05/15/22 metformin 500 mg tablet,extended 1 tab PO BID 01/01/21 05/15/22 release 24 hr venlafaxine 150 mg 2 cap PO QAM 01/01/21 05/15/22 capsule,extended release 24 hr melatonin 5 mg tablet 5 mg PO BEDTIME PRN 12/05/21 05/15/22 triamcinolone acetonide 0.1 % appl topical BID 12/05/21 05/15/22 topical cream acetaminophen 650 mg 650 mg PO Q6H PRN fever 12/27/21 05/15/22 tablet,extended release blood sugar diagnostic (FreeStyle #10 ea 12/27/21 05/15/22 Lite Strips) jrtyvwzyrp-eaxzyzqatacjv-waszzflp 1 cap PO Q6H PRN 12/27/21 05/15/22 50 mg-325 mg-40 mg capsule ferrous sulfate 325 mg (65 mg 325 mg PO Q OTHER DAY 03/11/22 05/15/22 iron) tablet,delayed release gabapentin 300 mg capsule 600 mg PO BEDTIME 03/11/22 05/15/22 oxycodone-acetaminophen 7.5 mg-325 1 tab PO severe pain 03/11/22 05/15/22 mg tablet trazodone 100 mg tablet 200 mg PO BEDTIME 03/11/22 05/15/22 Previous Rx's Medication Instructions Recorded famotidine 20 mg tablet (Pepcid) 20 mg PO BID 7 days #14 tabs 11/12/21 diclofenac sodium 1 % topical gel 2 g topical QID #100 grams 02/13/22 (Voltaren Arthritis Pain) lidocaine 5 % topical patch 1 patch topical DAILY #30 ea 02/13/22 bisacodyl 5 mg tablet,delayed 10 mg PO BEDTIME #180 tabs 03/11/22 release (Dulcolax (bisacodyl)) docusate sodium 100 mg capsule 100 mg PO BEDTIME #90 caps 03/11/22 polyethylene glycol 3350 17 17 g PO DAILY #510 grams 03/11/22 gram/dose oral powder (Miralax) benzonatate 200 mg capsule 200 mg PO TID PRN cough #30 caps 03/29/22 doxycycline hyclate 100 mg tablet 100 mg PO BID #20 tabs 03/29/22 tramadol 50 mg tablet 50 mg PO Q6H PRN pain #20 tabs 03/29/22 lactulose 10 gram/15 mL oral 20 g (30 mL) PO BID #473 mL 04/09/22 solution prucalopride 2 mg tablet 2 mg PO DAILY 30 days #30 tabs 04/17/22 simethicone 125 mg capsule (Gas 125 mg PO TID-QID PRN abdominal 04/17/22 Relief (simethicone)) distention #120 caps gabapentin 600 mg tablet 600 mg PO DAILY #14 tabs 05/16/22 (Neurontin) diclofenac sodium 1 % topical gel 2 g topical QID #100 grams 05/18/22 (Arthritis Pain (diclofenac)) Allergies Allergy/AdvReac Type Severity Reaction Status Date / Time morphine [MORPHINE] Allergy Intermediate PALPITATIONS, Verified 05/15/22 21:27 tachicardia quetiapine [Seroquel] Allergy Unknown Unknown Verified 05/15/22 21:27 orphenadrine [ORPHENADRINE] AdvReac Intermediate RAPID Verified 05/15/22 21:27 HEART RATE Review of Systems Review of Systems Constitutional : No Weight loss, No Fever, No Chills ENT/Mouth :? No sore throat, No Rhinorrhea Eyes: No Swelling, No Redness Cardiovascular : No Chest Pain, No SOB, No Edema Respiratory : No Cough, No Sputum, No Wheezing Gastrointestinal : Positive Nausea, no Vomiting, no Diarrhea, positive abdominal pain, positive Hematochezia, No Melena Genitourinary : No Dysuria, No Urinary Frequency, No Hematuria, No Urgency? Musculoskeletal : No joint pain, No Myalgias, No Joint Swelling Skin : No Skin Lesions, No rash Neuro : No Weakness, No Numbness, No Dizziness, No Headache Psych : No Anxiety/Panic, No Depression Heme/Lymph: No Bruising, No Lymphadenopathy Endocrine : No Polyuria, No Polydipsia Yes all other systems are reviewed and are negative [facility] Past Medical History Attestation statement: The following information was validated with the patient. Source: old records reviewed Medical History Anxiety Asthma Chronic idiopathic constipation Depression Diabetes 1.5, managed as type 2 Diverticulosis Fibromyalgia Migraine Surgical History Gastric bypass status for obesity H/O colonoscopy History of pubovaginal sling Hx of bilateral breast reduction surgery Hx of oophorectomy Family History Family History Mother Colon cancer Social History Social History Household Members Other:: lives alone Housing: Condominium Alcohol intake: unknown Patient Tobacco Use Status: Never used Tobacco Smoked in Last 30 Days: No Use of substances other than those prescribed or required for medical reasons: Unknown Advance Directives: No Advance Directives Information Provided: No Patient : No service: No Current occupational status: disabled Gender identity: Female Physical Exam ED Vital Signs: Vital Signs - 24 hr 05/27/22 16:03 Temperature 98.2 F Pulse Rate 60 Respiratory Rate 18 Blood Pressure 119/58 L Pulse Oximetry 100 Oxygen Delivery Method Room Air BMI result Body Mass Index 26.6 Appearance: Alert.?Oriented to person, place and time. No acute distress.?Normal affect. Eyes: Pupils equal, round and reactive to light.? ENT: Pharynx normal.?? Neck: Normal inspection.? Neck supple.?? CVS: Heart sounds normal. Normal heart rate and rhythm.? Pulses normal.?? Respiratory: No respiratory distress.? Lung sounds clear to auscultation bilaterally?? Abdomen: Soft with left upper and left lower quadrant abdominal tenderness upon palpation. No rigidity. No guarding. No rebound tenderness.. Normoactive bowel sounds. ?? Skin: Skin warm and dry.? Normal skin color.? Extremities: No lower extremity edema.? Neuro: Moves all extremities spontaneously. Sensation intact bilaterally. Ambulates with normal steady gait. Course Reevaluation(s) Reevaluation #1: CBC is without leukocytosis, a microcytic anemia consistent with baseline not needing transfusion criteria, Unchanged when compared to prior results from 10 days ago. CMP is overall unremarkable, lipase within normal limits, No abnormal renal function, not consistent with hepatic or biliary dysfunction. Urinalysis without evidence of infection or microscopic hematuria. CT of the abdomen and pelvis without acute intra-abdominal pathology, there is however at a moderate amount of stool throughout the colon without any thickening or pericolonic inflammatory changes. Not consistent with acute diverticulitis. Rectal examination without evidence of hemorrhoids or anal fissures. Declines digital rectal examination. Reviewed notes from Gastroenterology, last seen by Estefany Garza April 2022 for chronic idiopathic constipation, at the time patient had been non compliant with bowel regimen, receive new prescription for simethicone and improved callus pried. At this time, advised increased fluid intake, increased fiber, compliance with bowel regimen as indicated by Gastroenterology, and outpatient follow-up for persistent constipation. Reviewed worrisome signs and symptoms that would warrant re-evaluation in the emergency department. Patient is stable for discharge home. Time: 17:41 Medical Decision Making Medical Decision Making MDM Narrative: Patient is a 62-year-old female with a past medical history of anxiety, depression, asthma, constipation, diabetes, diverticulosis, fibromyalgia, migraines who presents emergency department for evaluation of abdominal pain. Reports a single episode of hematochezia that occurred 2 days ago while straining with bowel movement, has not had any episodes since then. Reports history of chronic constipation for which she is [place] [facility] [place]. abdominal examination was notable for tenderness to the left upper and lower quadrant upon palpation, there is however no rigidity or guarding, low suspicion for acute abdomen. Given history of diverticulosis will obtain CT of the abdomen and pelvis to evaluate for diverticulitis, colitis, bowel obstruction. Low suspicion for appendicitis. Will obtain CBC to evaluate for leukocytosis/ anemia, CMP and lipase to evaluate for abnormal electrolytes /abnormal renal function/ abnormal hepatic/biliary function, and Urinalysis. Patient to receive 1 L normal saline IV fluid, ondansetron IV for nausea, ketorolac IV for abdominal pain. Disposition pending results. Differential Diagnosis Differential Diagnoses: The differential diagnosis associated with the presentation includes ( As noted above) Lab Data MDM Lab Attestation statement: I reviewed the patient's lab results. 05/27/22 16:38 05/27/22 16:37 Labs: Lab Results 05/27/22 05/27/22 05/27/22 Range/Units 16:36 16:36 16:37 WBC (4.8-10.8) X10*3/uL RBC (4.20-5.50) X10*6/uL Hgb (12.0-16.0) g/dl Hct (37.0-47.0) % MCV (80.0-98.0) fL MCH (27.0-33.0) pg MCHC (31.0-35.0) g/dl RDW (11.0-16.0) % Plt Count (160-400) X10*3/uL MPV (9.4-12.3) fL Immature Gran % (Auto) (0.0-0.4) % Neut % (Auto) (45-73) % Lymph % (Auto) (20-40) % Mcmullen % (Auto) (2-11) % Eos % (Auto) (0-4) % Baso % (Auto) (0-2) % Lymph # (Auto) (1.2-4.9) X10*3/uL [place]ullen # (Auto) (0.1-1.2) X10*3/uL Eos # (Auto) (0.0-0.4) X10*3/uL Baso # (Auto) (0.0-0.2) X10*3/uL Abs Immat Gran (auto) (0.00-0.03) X10*3/uL Absolute Neuts (auto) (2.0-8.3) x10*3/uL Absolute Nucleated RBC (0.0-0.012) X10*3/uL Nucleated RBC % (auto) (0.0-0.2) /100WBC Sodium 140 (135-145) mmol/L Potassium 4.6 (3.3-5.1) mmol/L Chloride 103 (96-108) mmol/L Carbon Dioxide 27 (22-29) mmol/L Anion Gap 15 (12-20) BUN 20 H (9-16) mg/dL Creatinine 0.73 (0.5-1.4) mg/dL Estim Creat Clear Calc 81.8 Estimated GFR > 60 Random Glucose 80 (60-115) mg/dL Calcium 9.0 (8.4-10.2) mg/dL Total Bilirubin < 0.2 (0.0-1.0) mg/dL AST 33 H (5-31) U/L ALT 23 (0-31) U/L Alkaline Phosphatase 62 (39-117) U/L Total Protein 6.6 (6.5-8.0) g/dL Albumin 3.7 (3.5-5.0) g/dL Lipase 49 (8-78) U/L Urine Color Yellow Urine Appearance Clear Urine pH 8.0 (5.0-9.0) Ur Specific [place] 1.025 (1.005-1.025) Urine Protein Negative (Neg-Trace) mg/dL Urine Glucose (UA) Negative (Negative) mg/dL Urine Ketones Negative (Negative) mg/dL Urine Blood Negative (Negative) Urine Nitrite Negative (Negative) Ur Leukocyte Esterase Negative (Negative) COVID-19 (IGOR) Negative (Negative) COVID-19 Clin Com See Note 05/27/22 Range/Units 16:38 WBC 8.9 (4.8-10.8) X10*3/uL RBC 4.09 L (4.20-5.50) X10*6/uL Hgb 10.6 L (12.0-16.0) g/dl Hct 33.6 L (37.0-47.0) % MCV 82.2 (80.0-98.0) fL MCH 25.9 L (27.0-33.0) pg MCHC 31.5 (31.0-35.0) g/dl RDW 14.6 (11.0-16.0) % Plt Count 288 (160-400) X10*3/uL MPV 9.5 (9.4-12.3) fL Immature Gran % (Auto) 0.9 H (0.0-0.4) % Neut % (Auto) 54.1 (45-73) % Lymph % (Auto) 32.8 (20-40) % [place]ullen % (Auto) 9.3 (2-11) % Eos % (Auto) 2.7 (0-4) % Baso % (Auto) 0.2 (0-2) % Lymph # (Auto) 2.9 (1.2-4.9) X10*3/uL [place] # (Auto) 0.8 (0.1-1.2) X10*3/uL Eos # (Auto) 0.2 (0.0-0.4) X10*3/uL Baso # (Auto) 0.0 (0.0-0.2) X10*3/uL Abs Immat Gran (auto) 0.08 H (0.00-0.03) X10*3/uL Absolute Neuts (auto) 4.8 (2.0-8.3) x10*3/uL Absolute Nucleated RBC 0.000 (0.0-0.012) X10*3/uL Nucleated RBC % (auto) 0.0 (0.0-0.2) /100WBC Sodium (135-145) mmol/L Potassium (3.3-5.1) mmol/L Chloride (96-108) mmol/L Carbon Dioxide (22-29) mmol/L Anion Gap (12-20) BUN (9-16) mg/dL Creatinine (0.5-1.4) mg/dL Estim Creat Clear Calc Estimated GFR Random Glucose (60-115) mg/dL Calcium (8.4-10.2) mg/dL Total Bilirubin (0.0-1.0) mg/dL AST (5-31) U/L ALT (0-31) U/L Alkaline Phosphatase (39-117) U/L Total Protein (6.5-8.0) g/dL Albumin (3.5-5.0) g/dL Lipase (8-78) U/L Urine Color Urine Appearance Urine pH (5.0-9.0) Ur Specific [place] (1.005-1.025) Urine Protein (Neg-Trace) mg/dL Urine Glucose (UA) (Negative) mg/dL Urine Ketones (Negative) mg/dL Urine Blood (Negative) Urine Nitrite (Negative) Ur Leukocyte Esterase (Negative) COVID-19 (IGOR) (Negative) COVID-19 Clin Com Radiology Impression Discussion of test interpretation with radiology: I have reviewed the radiologist's reading. Radiologist Impression: CT/CT abdomen pelvis w IV con IMPRESSION: Chronic appearing and postoperative changes as described. I do not appreciate any acute intra-abdominal process when compared to 04/16/2022 study. External Record Review External record reviewed: Outpatient record ( Gastroenterology as noted in course) Prescription Management I considered prescription management with: Antibiotic ( considered antibiotics for management of acute diverticulitis, however serum labs and CT of the abdomen and pelvis not consistent, no antibiotics indicated at this time.) Medications Administered Discontinued Medications Generic Name Dose Route Start Last Admin Trade Name Freq PRN Reason Stop Dose Admin Sodium Chloride 1,000 mls @ 999 mls/hr 05/27/22 16:30 05/27/22 17:36 Ns IV 05/27/22 17:30 Infused .Q1H1M HARLEY Infusion Iohexol 100 ml 05/27/22 17:14 05/27/22 17:15 Iohexol 350 Mg/Ml 100 Ml Infus..Btl IV 05/27/22 17:15 85 ml ONCE ONE Administration Ketorolac Tromethamine 30 mg 05/27/22 16:23 05/27/22 16:43 Ketorolac Tromethamine 30 Mg/Ml Vial IVPUSH 05/27/22 16:24 30 mg ONCE ONE Administration Ondansetron HCl 4 mg 05/27/22 16:23 05/27/22 16:43 Ondansetron Hcl 4 Mg/2 Ml Vial IVPUSH 05/27/22 16:24 4 mg ONCE ONE Administration Discharge Plan Discharge Clinical Impression: Chronic idiopathic constipation Patient Disposition: Home, Self-Care Instructions: Constipation (ED) Additional Instructions: Your blood work today was overall normal, the CT of your abdomen does not reveal any abnormalities. Continue taking simethicone and prucalopride as advised by your waybill clerk. You should contact their office to arrange for follow-up visit regarding chronic constipation. You may return back to emergency department with any new or worsening symptoms or concerns. Prescriptions: No Action lactulose 10 gram/15 mL solution 20 g PO BID Qty: 473 2RF metformin 500 mg tablet extended release 24 hr 1 tab PO BID clonazepam [Klonopin] 1 mg tablet 1 tab PO TID PRN (Reason: Anxiety) venlafaxine 150 mg capsule,extended release 24hr 2 cap PO QAM albuterol sulfate 90 mcg/actuation HFA aerosol inhaler 2 PO Q4-6H PRN (Reason: Wheezing) fluticasone propionate 50 mcg/actuation spray,suspension 1 - 2 spray intranasal DAILY PRN (Reason: Nasal Congestion) hydrochlorothiazide 12.5 mg tablet 1 tab PO DAILY trazodone 100 mg tablet 200 mg PO BEDTIME lidocaine 5 % adhesive patch,medicated 1 patch topical DAILY Qty: 30 0RF Rx Instructions: leave on most painful area for up to 12 hrs diclofenac sodium [Voltaren Arthritis Pain] 1 % gel 2 g topical QID Qty: 100 0RF Rx Instructions: apply to single elbow, wrist or hand; for hand includes palm/fingers/back of hand benzonatate 200 mg capsule 200 mg PO TID PRN (Reason: cough) Qty: 30 0RF tramadol 50 mg tablet 50 mg PO Q6H PRN (Reason: pain) Qty: 20 0RF doxycycline hyclate 100 mg tablet 100 mg PO BID Qty: 20 0RF diclofenac sodium [Arthritis Pain (diclofenac)] 1 % gel 2 g topical QID Qty: 100 0RF Rx Instructions: apply to single elbow, wrist or hand; for hand includes palm/fingers/back of hand famotidine [Pepcid] 20 mg tablet 20 mg PO BID 7 Days Qty: 14 0RF gabapentin [Neurontin] 600 mg tablet 600 mg PO DAILY Qty: 14 0RF triamcinolone acetonide 0.1 % cream topical BID melatonin 5 mg tablet 5 mg PO BEDTIME PRN acetaminophen 650 mg tablet extended release 650 mg PO Q6H PRN (Reason: fever) ddoidjcwof-taskxmvxjlage-wujs 50-325-40 mg capsule 1 cap PO Q6H PRN (DME) FreeStyle Lite Strips Strip See Rx Instructions Not Applicable BID Qty: 10 Rx Instructions: As directed gabapentin 300 mg capsule 600 mg PO BEDTIME oxycodone-acetaminophen 7.5-325 mg tablet 1 tab PO ferrous sulfate 325 mg (65 mg iron) tablet,delayed release (DR/EC) 325 mg PO Q OTHER DAY docusate sodium 100 mg capsule 100 mg PO BEDTIME Qty: 90 3RF bisacodyl [Dulcolax (bisacodyl)] 5 mg tablet,delayed release (DR/EC) 10 mg PO BEDTIME Qty: 180 4RF polyethylene glycol 3350 [Miralax] 17 gram/dose powder 17 g PO DAILY Qty: 510 2RF simethicone [Gas Relief (simethicone)] 125 mg capsule 125 mg PO TID-QID PRN (Reason: abdominal distention) Qty: 120 2RF prucalopride 2 mg tablet 2 mg PO DAILY 30 Days Qty: 30 3RF Referrals: [facility] [Primary Care Provider] - Ernestina Garza, CRITICAL CARE PHYSICIAN ASSISTANT-BC [Nurse Practitioner] - Interventions: ED Discharge Assessment Last Done: 05/27/22 17:55 Discharge Date/Time: 05/27/22 18:02
--- NOTE | 2022-05-27 16:18 | PC.NURSE ---
Provider at bedside for eval.
[2022-05-27] MEDS: 0.9 % Sodium Chloride 1,000 ML 999 ML IV (16:40)
[2022-05-27 16:43] LABS: MANUAL DIFF FLAG NO
[2022-05-27] MEDS: ondansetron HCL 4 MG/2 ML VIAL IVPUSH (16:43)
[2022-05-27] MEDS: Ketorolac Tromethamine 30 MG/ML VIAL IVPUSH (16:43)
[2022-05-27 16:45] LABS: Basophils Percent Auto 0.2 % (0-2); Eosinophils Absolute Auto 0.2 X10*3/uL (0.0-0.4); Eosinophils Percent Auto 2.7 % (0-4); Hematocrit 33.6 % (37.0-47.0); Hemoglobin 10.6 g/dl (12.0-16.0); Imm Gran Abs Auto 0.08 X10*3/uL (0.00-0.03); Imm Gran Pct Auto 0.9 % (0.0-0.4); Lymphocytes Absolute Auto 2.9 X10*3/uL (1.2-4.9); Lymphocytes Percent Auto 32.8 % (20-40); Mean Corpuscular HGB Conc 31.5 g/dl (31.0-35.0); Mean Corpuscular Hemoglobin 25.9 pg (27.0-33.0); Mean Corpuscular Volume 82.2 fL (80.0-98.0); Mean Platelet Volume 9.5 fL (9.4-12.3); Monocytes Absolute Auto 0.8 X10*3/uL (0.1-1.2); Monocytes Percent Auto 9.3 % (2-11); Neutrophils Absolute Auto 4.8 x10*3/uL (2.0-8.3); Neutrophils Percent Auto 54.1 % (45-73); Platelet Count 288 X10*3/uL (160-400); Red Blood Count 4.09 X10*6/uL (4.20-5.50); Red Cell Distribution Width 14.6 % (11.0-16.0); White Blood Count 8.9 X10*3/uL (4.8-10.8)
[2022-05-27 16:46] LABS: Appearance Urine Clear; Color Urine Yellow; Glucose Urine UA Negative (Negative); Leukocyte Esterase Urine Negative (Negative); Nitrite Urine Negative (Negative); Specific Gravity - Urine 1.025 (1.005-1.025); Urine Blood Negative (Negative); Urine Ketones Negative (Negative); Urine Protein Negative (Neg-Trace)
[2022-05-27 17:01] LABS: Alanine Aminotransferase 23 U/L (0-31); Albumin Level 3.7 g/dL (3.5-5.0); Alkaline Phosphatase 62 U/L (39-117); Anion Gap 15 (12-20); Aspartate Amino Transferase 33 U/L (5-31); Bilirubin Total < 0.2 mg/dL (0.0-1.0); Blood Urea Nitrogen 20 mg/dL (9-16); Carbon Dioxide 27 mmol/L (22-29); Chloride 103 mmol/L (96-108); Creatinine Clr Calc Pharmacy 81.8; Estimated Glomerular Filt Rate > 60; Glucose Random 80 mg/dL (60-115); Lipase 49 U/L (8-78); Potassium 4.6 mmol/L (3.3-5.1); Sodium 140 mmol/L (135-145); Total Protein 6.6 g/dL (6.5-8.0)
[2022-05-27 17:05] LABS: COVID-19 Test Negative (Negative); IDNOW Serial# 16C4AD1C
[2022-05-27] MEDS: iohexoL 350 MG/ML 100 ML INFUS..BTL IV (17:15)
== END 2022-05-27 18:02 | disposition home or self-care (01) ==
PROVIDERS: Nurse Practitioner Family; Emergency Provider Emergency Medicine Emergency Medical Services
DX: K59.04 Chronic idiopathic constipation (principal); R10.12 Left upper quadrant pain; R10.32 Left lower quadrant pain; K92.1 Melena; D50.9 Iron deficiency anemia, unspecified; Z20.822 Contact with and (suspected) exposure to COVID-19; E13.9 Other specified diabetes mellitus without complications; Z98.84 Bariatric surgery status; Z79.84 Long term (current) use of oral hypoglycemic drugs; Z79.899 Other long term (current) drug therapy
CPT/HCPCS: 74177; 80053; 81003; 83690; 85025; 87635; 96361; 96374; 96375; 99284; J1885; J2405; Q9967

== ENCOUNTER 2022-06-06 18:32 | Outpatient (REF) | payer MEDICAID, SELFPAY ==
--- NOTE | ~2022-06-06 | MR_ITS ---
EXAMINATION: MR LUMBAR SPINE WITHOUT CONTRAST CLINICAL INFORMATION: 62-year-old with lumbar radiculopathy. Self-reported low back and bilateral leg pain with pitching of the left buttock. COMPARISON: 06/26/2020 MRI. TECHNIQUE: MRI of the lumbar spine was obtained using routine sequences without contrast. FINDINGS: CORONAL ALIGNMENT: Trace upper lumbar levocurvature noted stable in appearance. SAGITTAL ALIGNMENT: Mild retrolisthesis at L5-S1 is stable. Otherwise normal lumbar lordotic curvature. LUMBOSACRAL JUNCTION: Normal. There are 5 afh-kur-ewluhpa lumbar-type vertebral bodies. There are 5 vdw-xuw-tpyttpe lumbar-type vertebral bodies. VERTEBRAL BODIES: Stable vertebral body heights. No interval compression fractures. DISC SPACES AND ENDPLATES: Severe disc space height loss at L5-S1, with disc desiccation, Schmorl's nodes and spondylosis stable in appearance. Remaining lumbar intervertebral discs demonstrate normal height and signal stable in appearance, with mild anterolateral spondylosis at multiple levels between T11-T12 and L5-S1 inclusive unchanged. SPINAL CANAL: No abnormal developmental findings. BONE MARROW: Minor type I degenerative marrow signal changes are noted along the endplates at L5-S1 since the previous exam. No suspicious marrow-replacing process or other bone marrow edema. CONUS MEDULLARIS: Terminates at L1. Morphology and signal is normal. INTRADURAL NERVE ROOTS: Within normal limits. L5-S1: Retrolisthesis, diffuse disc bulging and a central extruded disc herniation with mild caudal migration stable in appearance. There is encroachment on the ventral thecal sac asymmetric to the left unchanged in appearance. There is ligamentum flavum thickening and mild left-sided facet arthropathy stable in appearance. There is narrowing of the subarticular zones, left more than right with encroachment on the traversing S1 nerve roots, left more than right stable in appearance. Mild central canal stenosis is stable. Mild foraminal narrowing is noted bilaterally stable in appearance, with disc bulging and right lateral disc osteophyte complex contacting the exiting L5 nerve roots bilaterally, right more than left unchanged in appearance. L4-L5: There is disc bulging and a superimposed small central disc protrusion stable in appearance, with mild flattening of the ventral dural sac. There is mild ligamentum flavum thickening and mild facet arthropathy without significant spinal canal stenosis. No significant neural foraminal stenosis and no neural impingement. L3-L4: Minor annular bulging and a superimposed tiny central disc protrusion are stable with mild facet arthrosis unchanged in appearance without significant canal or neural foraminal stenosis. L2-L3: Very small inferior foraminal disc protrusion noted on the left stable in appearance without neural impingement. Mild facet arthropathy noted bilaterally unchanged with no significant canal or neural foraminal stenosis. L1-L2: Central to left paramedian disc protrusion noted with mild indentation of the ventral thecal sac asymmetric to the left largely unchanged in appearance with mild ligamentum flavum thickening without significant canal or neural foraminal stenosis unchanged. Small central disc protrusion at T12-L1 stable in appearance without cord impingement or significant canal stenosis. PARAVERTEBRAL AND INCLUDED EXTRASPINAL SOFT TISSUES: The visualized paravertebral soft tissues and included retroperitoneal structures are unremarkable within the limitations of the exam. MR/MR lumbar spine wo con IMPRESSION: 1. Stable mild retrolisthesis at L5-S1 with stable discogenic degenerative changes and spondylosis at this level with stable disc bulging and central extruded disc herniation with stable narrowing of the subarticular zones, left more than right with encroachment on the traversing S1 nerve roots, left more than right stable in appearance. 2. Stable disc bulging and small central disc protrusion at L4-L5 without significant spinal canal or neural foraminal stenosis. 3. Stable minor disc bulging and tiny central disc protrusion at L3-L4 and stable central to left paramedian disc protrusion at L1-L2. Stable small inferior foraminal disc protrusion on the left at L2-L3 and stable small central disc protrusion at T12-L1 without cord impingement. 4. Stable multilevel bilateral facet arthropathy with stable mild central canal stenosis at L5-S1. Stable mild foraminal narrowing bilaterally at L5-S1 with disc-osteophyte complex and disc bulging contacting the exiting L5 nerve roots bilaterally, right more than left stable in appearance.
== END 2022-06-06 18:33 | disposition home or self-care (01) ==
LOC: HO.MRI 18:32
PROVIDERS: Visit Provider Nurse Practitioner Women's Health
DX: M54.16 Radiculopathy, lumbar region (principal)
CPT/HCPCS: 72148

== ENCOUNTER 2022-06-21 10:16 | Outpatient (REF) | payer MEDICAID, SELFPAY ==
[2022-06-21 10:37] LABS: MANUAL DIFF FLAG NO
[2022-06-21 11:49] LABS: Basophils Percent Auto 0.2 % (0-2); Eosinophils Absolute Auto 0.2 X10*3/uL (0.0-0.4); Hematocrit 31.1 % (37.0-47.0); Hemoglobin 9.7 g/dl (12.0-16.0); Imm Gran Abs Auto 0.06 X10*3/uL (0.00-0.03); Imm Gran Pct Auto 0.7 % (0.0-0.4); Lymphocytes Absolute Auto 1.8 X10*3/uL (1.2-4.9); Lymphocytes Percent Auto 22.5 % (20-40); Mean Corpuscular HGB Conc 31.2 g/dl (31.0-35.0); Mean Corpuscular Volume 83.4 fL (80.0-98.0); Mean Platelet Volume 10.5 fL (9.4-12.3); Monocytes Absolute Auto 0.8 X10*3/uL (0.1-1.2); Monocytes Percent Auto 10.3 % (2-11); Neutrophils Absolute Auto 5.1 x10*3/uL (2.0-8.3); Neutrophils Percent Auto 63.3 % (45-73); Platelet Count 261 X10*3/uL (160-400); Red Blood Count 3.73 X10*6/uL (4.20-5.50); Red Cell Distribution Width 15.7 % (11.0-16.0); White Blood Count 8.1 X10*3/uL (4.8-10.8)
[2022-06-21 12:29] LABS: Alanine Aminotransferase 16 U/L (0-31); Alkaline Phosphatase 71 U/L (39-117); Anion Gap 17 (12-20); Aspartate Amino Transferase 21 U/L (5-31); Bilirubin Direct < 0.2 mg/dL (0.0-0.5); Bilirubin Total 0.2 mg/dL (0.0-1.0); Blood Urea Nitrogen 30 mg/dL (9-16); C Reactive Protein 0.13 mg/dL (< or = 0.50); Calcium 9.2 mg/dL (8.4-10.2); Carbon Dioxide 24 mmol/L (22-29); Chloride 104 mmol/L (96-108); Estimated Glomerular Filt Rate > 60; Glucose Random 66 mg/dL (60-115); Potassium 4.7 mmol/L (3.3-5.1); Sodium 140 mmol/L (135-145); Total Protein 6.8 g/dL (6.5-8.0)
[2022-06-21 12:33] LABS: Erythrocyte Sedimentation Rate 14 MM/HR (0-20)
[2022-06-25 15:48] LABS: Anti Nuclear Antibody Screen NEGATIVE (NEGATIVE)
== END 2022-06-21 10:17 | disposition home or self-care (01) ==
LOC: HO.LAB 10:16
PROVIDERS: PCP Internal Medicine; Visit Provider Nurse Practitioner Women's Health
DX: R21 Rash and other nonspecific skin eruption (principal)
CPT/HCPCS: 36415; 80053; 82248; 85025; 85652; 86038; 86039; 86140

== ENCOUNTER 2022-07-26 11:02 | Outpatient (REF) | payer MEDICAID, SELFPAY ==
[2022-07-26 11:28] LABS: MANUAL DIFF FLAG NO
[2022-07-26 11:53] LABS: Basophils Percent Auto 0.5 % (0-2); Eosinophils Absolute Auto 0.2 X10*3/uL (0.0-0.4); Eosinophils Percent Auto 3.3 % (0-4); Hematocrit 31.7 % (37.0-47.0); Hemoglobin 9.8 g/dl (12.0-16.0); Imm Gran Abs Auto 0.08 X10*3/uL (0.00-0.03); Imm Gran Pct Auto 1.2 % (0.0-0.4); Lymphocytes Absolute Auto 1.9 X10*3/uL (1.2-4.9); Lymphocytes Percent Auto 27.9 % (20-40); Mean Corpuscular HGB Conc 30.9 g/dl (31.0-35.0); Mean Corpuscular Hemoglobin 25.5 pg (27.0-33.0); Mean Corpuscular Volume 82.6 fL (80.0-98.0); Mean Platelet Volume 10.2 fL (9.4-12.3); Monocytes Absolute Auto 0.6 X10*3/uL (0.1-1.2); Monocytes Percent Auto 8.7 % (2-11); Neutrophils Absolute Auto 3.9 x10*3/uL (2.0-8.3); Neutrophils Percent Auto 58.4 % (45-73); Platelet Count 310 X10*3/uL (160-400); Red Blood Count 3.84 X10*6/uL (4.20-5.50); Red Cell Distribution Width 15.5 % (11.0-16.0); White Blood Count 6.7 X10*3/uL (4.8-10.8)
[2022-07-26 12:32] LABS: Alanine Aminotransferase 16 U/L (0-31); Albumin Level 4.1 g/dL (3.5-5.0); Alkaline Phosphatase 79 U/L (39-117); Anion Gap 12 (12-20); Aspartate Amino Transferase 24 U/L (5-31); Bilirubin Direct < 0.2 mg/dL (0.0-0.5); Bilirubin Total 0.2 mg/dL (0.0-1.0); Blood Urea Nitrogen 20 mg/dL (9-16); Calcium 8.7 mg/dL (8.4-10.2); Carbon Dioxide 26 mmol/L (22-29); Chloride 105 mmol/L (96-108); Estimated Glomerular Filt Rate > 60; Glucose Random 73 mg/dL (60-115); Rheumatoid Factor < 13.0 IU/mL (<15.0); Sodium 138 mmol/L (135-145); Total Protein 6.9 g/dL (6.5-8.0)
[2022-07-26 12:41] LABS: Erythrocyte Sedimentation Rate 23 MM/HR (0-20)
[2022-07-30 13:54] LABS: Cyclic Citrullinated Peptide <16 UNITS
[2022-07-30 14:39] LABS: Anti Nuclear Antibody Screen NEGATIVE (NEGATIVE)
== END 2022-07-26 11:03 | disposition home or self-care (01) ==
LOC: HO.LAB 11:02
PROVIDERS: PCP Internal Medicine; Visit Provider Nurse Practitioner Women's Health
DX: R21 Rash and other nonspecific skin eruption (principal)
CPT/HCPCS: 36415; 80053; 82248; 85025; 85652; 86038; 86039; 86200; 86431

== ENCOUNTER 2022-08-27 09:29 | Outpatient (REF) | payer MEDICAID, SELFPAY ==
--- NOTE | ~2022-08-27 | MR_ITS ---
EXAMINATION: MR CERVICAL SPINE WITHOUT CONTRAST CLINICAL INFORMATION: Radiculopathy. COMPARISON: MRI scan of the cervical spine 10/31/2020. TECHNIQUE: MRI of the cervical spine was obtained using routine sequences without contrast. FINDINGS: VERTEBRAL BODIES AND PARASPINAL SOFT TISSUES: There is a mild dextroscoliosis. The study redemonstrates the sequelae of the ACDF at C6-C7. There is slight reversal of the cervical lordosis in the upper cervical region. There is narrowing of intervertebral disc height at C3-C4. There is loss of signal from the disc at C5-C6, demonstrated on prior imaging. Vertebral body heights are maintained, and no fractures are demonstrated. Overall, marrow signal is homogenous. The paravertebral structures are unremarkable. CERVICOMEDULLARY JUNCTION AND VISUALIZED POSTERIOR FOSSA: The craniocervical and posterior fossa structures are normal. Accounting for artifact, spinal cord signal appears normal. SPINAL LEVELS: C2-C3: There is mild right facet arthropathy. There is a small disc protrusion posteriorly in the midline. There is no cord compression or central stenosis. The neural foramina are patent bilaterally. C3-C4: The facet joints appear normal bilaterally. There is a moderate posterior soft disc protrusion which distorts the ventral thecal sac, not significantly changed compared to prior imaging. There is mild effacement of CSF ventral to the spinal cord but there is no cord compression or central stenosis. The neural foramina are patent bilaterally. C4-C5: The facet joints appear normal. There is a central and right paracentral soft disc protrusion which is slightly more prominent compared to prior imaging with flattening of the ventral spinal cord and effacement of CSF around the cord. There is mild central stenosis. There are uncovertebral osteophytes and there is mild bilateral foraminal narrowing. C5-C6: The facet joints appear normal. There is a central and right-sided disc protrusion, which is slightly more prominent compared to prior imaging, with effacement of CSF ventral to the cord. There is no cord compression or central stenosis. There is mild bilateral foraminal narrowing. C6-C7: The facet joints appear normal. Posterior vertebral body contours appear uniform and there is no significant mass effect on the thecal sac there is no cord compression or central stenosis., And there is no central stenosis or cord compression. The neural foramina appear patent bilaterally. C7-T1: The facet joints appear normal. There is a small disc protrusion posteriorly in the midline, slightly more prominent compared to prior imaging. There is no cord compression or central stenosis. The neural foramina are patent bilaterally. T1-T2: On the sagittal images there is a small posterior disc protrusion centrally and to the left of midline without mass effect on the thecal sac. The neural foramina are patent bilaterally. MR/MR cervical spine wo con IMPRESSION: 1. The study redemonstrates the sequelae of the ACDF at C6-C7. 2. At C4-C5 there is a central and right paracentral soft disc protrusion which is slightly more prominent compared to prior imaging. There is mild central stenosis. There is mild bilateral foraminal narrowing. 3. At C5-C6 there is a central and right-sided disc protrusion, slightly more prominent compared to prior imaging. There is no cord compression or central stenosis. There is mild bilateral foraminal narrowing. 4. At C3-C4 there is a moderate posterior soft disc protrusion without cord compression or central stenosis. The neural foramina are patent bilaterally. 5. At C7-T1 there is a small disc protrusion posteriorly in the midline, slightly more prominent compared to prior imaging. There is no cord compression or central stenosis and the neural foramina are patent bilaterally.
== END 2022-08-27 09:30 | disposition home or self-care (01) ==
LOC: HO.MRI 09:29
PROVIDERS: PCP Internal Medicine; Visit Provider Nurse Practitioner Women's Health
DX: M54.12 Radiculopathy, cervical region (principal)
CPT/HCPCS: 72141

== ENCOUNTER 2022-09-19 14:52 | Emergency (ER) | payer MEDICAID, SELFPAY ==
[2022-09-19 15:37] VITALS: BP 131/77; PULSE 69; RESP 18; TEMP 36.3; O2SAT 94; BMI 26.6
--- NOTE | 2022-09-19 15:38 | ED_ITS ---
HPI - General Adult General Chief complaint: Extremity Problem Stated complaint: leg pain in both legs Time Seen by Provider: 09/19/22 18:23 Source: patient Mode of arrival: ambulatory Limitations: no limitations History of Present Illness HPI narrative: 62-year-old female who presents emergency department for evaluation of bilateral lower extremity pain, weakness feeling hot and cold and sciatic pain. The patie nt states that she has been feeling weak and tired for approximately 1 month. She states that she has fibromyalgia and she is having increased pain in all of her extremities. She also has sciatica has increased pain in her left leg for the past 3 days. She states that her lower extremities are swollen and painful. The patient denies chest pain, shortness of breath, nausea, vomiting, dark sto ols, black stools, diarrhea. The patient states she has had a hysterectomy and does not have menstrual bleeding. The patient states that her mother of colon cancer and was diagnosed with colon cancer at age 56. Patient states she had a colonoscopy 2 years prior but this was nondiagnostic since she did not have a good prep. Related Data Home Medications Medication Instructions Recorded Confirmed albuterol sulfate 90 mcg/actuation 2 PO Q4-6H PRN Wheezing 01/01/21 05/15/22 aerosol inhaler clonazepam 1 mg tablet (Klonopin) 1 tab PO TID PRN Anxiety 01/01/21 05/15/22 fluticasone propionate 50 1 - 2 spray intranasal DAILY PRN 01/01/21 05/15/22 mcg/actuation nasal Nasal Congestion spray,suspension hydrochlorothiazide 12.5 mg tablet 1 tab PO DAILY 01/01/21 05/15/22 metformin 500 mg tablet,extended 1 tab PO BID 01/01/21 05/15/22 release 24 hr venlafaxine 150 mg 2 cap PO QAM 01/01/21 05/15/22 capsule,extended release 24 hr melatonin 5 mg tablet 5 mg PO BEDTIME PRN 12/05/21 05/15/22 triamcinolone acetonide 0.1 % appl topical BID 12/05/21 05/15/22 topical cream acetaminophen 650 mg 650 mg PO Q6H PRN fever 12/27/21 05/15/22 tablet,extended release blood sugar diagnostic (FreeStyle #10 ea 12/27/21 05/15/22 Lite Strips) [id number]-bpmgsbeebxvbo-[id number] 1 cap PO Q6H PRN 12/27/21 05/15/22 50 mg-325 mg-40 mg capsule ferrous sulfate 325 mg (65 mg 325 mg PO Q OTHER DAY 03/11/22 05/15/22 iron) tablet,delayed release gabapentin 300 mg capsule 600 mg PO BEDTIME 03/11/22 05/15/22 oxycodone-acetaminophen 7.5 mg-325 1 tab PO severe pain 03/11/22 05/15/22 mg tablet trazodone 100 mg tablet 200 mg PO BEDTIME 03/11/22 05/15/22 Previous Rx's Medication Instructions Recorded famotidine 20 mg tablet (Pepcid) 20 mg PO BID 7 days #14 tabs 11/12/21 diclofenac sodium 1 % topical gel 2 g topical QID #100 grams 02/13/22 (Voltaren Arthritis Pain) lidocaine 5 % topical patch 1 patch topical DAILY #30 ea 02/13/22 bisacodyl 5 mg tablet,delayed 10 mg PO BEDTIME #180 tabs 03/11/22 release (Dulcolax (bisacodyl)) docusate sodium 100 mg capsule 100 mg PO BEDTIME #90 caps 03/11/22 polyethylene glycol 3350 17 17 g PO DAILY #510 grams 03/11/22 gram/dose oral powder (Miralax) benzonatate 200 mg capsule 200 mg PO TID PRN cough #30 caps 03/29/22 doxycycline hyclate 100 mg tablet 100 mg PO BID #20 tabs 03/29/22 tramadol 50 mg tablet 50 mg PO Q6H PRN pain #20 tabs 03/29/22 lactulose 10 gram/15 mL oral 20 g (30 mL) PO BID #473 mL 04/09/22 solution prucalopride 2 mg tablet 2 mg PO DAILY 30 days #30 tabs 04/17/22 simethicone 125 mg capsule (Gas 125 mg PO TID-QID PRN abdominal 04/17/22 Relief (simethicone)) distention #120 caps gabapentin 600 mg tablet 600 mg PO DAILY #14 tabs 05/16/22 (Neurontin) diclofenac sodium 1 % topical gel 2 g topical QID #100 grams 05/18/22 (Arthritis Pain (diclofenac)) ferrous sulfate 325 mg (65 mg 325 mg PO TID #90 tabs 09/19/22 iron) tablet oxycodone 5 mg tablet 5 mg PO Q6H PRN pain #14 tabs 09/19/22 Allergies Allergy/AdvReac Type Severity Reaction Status Date / Time morphine [MORPHINE] Allergy Intermediate PALPITATIONS, Verified 09/19/22 15:41 tachicardia quetiapine [Seroquel] Allergy Unknown Unknown Verified 09/19/22 15:41 orphenadrine [ORPHENADRINE] AdvReac Intermediate RAPID Verified 09/19/22 15:41 HEART RATE Review of Systems Review of Systems: Yes all other systems are reviewed and are negative [facility] Past Medical History Medical History Anxiety Asthma Chronic idiopathic constipation Depression Diabetes 1.5, managed as type 2 Diverticulosis Fibromyalgia Migraine Surgical History Gastric bypass status for obesity H/O colonoscopy History of pubovaginal sling Hx of bilateral breast reduction surgery Hx of oophorectomy Family History Family History Mother Colon cancer Social History Social History Household Members Other:: lives alone Housing: Condominium Alcohol intake: unknown Patient Tobacco Use Status: Never used Tobacco Advance Directives: No Advance Directives Information Provided: No service: No Current occupational status: disabled Gender identity: Female Physical Exam ED Vital Signs: Vital Signs - 24 hr 09/19/22 15:37 Temperature 97.3 F Pulse Rate 69 Respiratory Rate 18 Blood Pressure 131/77 Pulse Oximetry 94 Oxygen Delivery Method Room Air BMI result Body Mass Index 26.6 Const General: cooperative and no acute distress Orientation/consciousness: oriented to person and oriented to place Limitations: no limitations HENMT Head: Yes normal to inspection, Yes normocephalic and Yes atraumatic Ears: external ears normal General nose exam: Normal external nose present Face and sinus: Yes normal facial exam Mouth: Normal oral and palatal mucosa present Throat: Yes posterior oropharynx normal Eyes General: appearance normal, both eyes and all related structures Pupils: Equal, round and reactive pupils present Neck Neck: Yes normal visual inspection, Yes no lymphadenopathy, Yes trachea midline and Yes supple Chest Chest palpation & inspection: normal inspection of the chest and normal palpation of entire chest wall Resp Effort & Inspection: normal respiratory effort and able to speak in complete sentences Auscultation: clear to auscultation bilaterally Cardio Rate: regular rate Rhythm: regular rhythm Heart sounds: S1 normal heart sound present, S2 normal heart sound present and no murmurs GI Inspection: Yes normal to inspection Palpation (GI): Soft to palpation, nontender and no guarding Auscultation: normal bowel sounds General: Yes no CVA tenderness Back/Spine/Pelvis Back: no CVA tenderness Skin General skin exam: no rashes or lesions noted Neuro General: oriented to person and oriented to place Cranial nerves: Yes CN's II-XII intact bilaterally and Yes Equal, round and reactive pupils present Cognition (Neuro): normal cognition Motor exam (neuro): 5/5 motor strength present throughout Extrem General: Yes normal to inspection Psych Appearance: grossly normal Speech and movement: Normal speech and movement present Affect: normal affect Attitude: cooperative Thought process: Normal thought process present Thought content: Normal thought content present Course Course Course Narrative: This is an RME: Additional HPI, ROS, PE not included below will be deferred to primary provider. 62 year old, female with PMH of chronic pain, varicose veins, fibromyalgia, type 2 diabetes and leg edema presents to the ED wit bilateral painful leg swelling X 3 days. Patient reports bilatearl legs feel heavy. Denies trauma, CP, SOB, dyspnea. PE: Bilateral non-pitting edema Plan: Basic labs Medical Decision Making Medical Decision Making MDM Narrative: 62-year-old female who presents emergency department for evaluation of fatigue x1 month, lower extremity swelling, feeling hot and cold and left sided sciatica pain x3 days. Patient's vital signs were normal. Physical examination was unremarkable, the patient does not have pitting edema. 1926: My independent interpretation of patient's Laboratory evaluation did reveal microcytic anemia with an H&H of 9.7 and 31.1-patient has had anemia in the past but she is now microcytic which is new. Patient's CMP was unremarkable. At this time I believe the patient's swelling and pain is chronic pain. I will give the patient a limited prescription for oxycodone for her sciatic pain. The patient will be started on ferrous sulfate 325 3 times a day for 1 month. Given her mother's history of colon cancer at 54 years old, the patient needs to follow-up with her PCP to get by a workup for her microcytic anemia and I did discuss this with her. Differential Diagnosis Differential Diagnoses: The differential diagnosis associated with the presentat ion includes Differential diagnosis includes was not limited to pitting edema, nonpitting edema, liver failure, kidney failure, chronic pain, fibromyalgia flare up, sciatica, electrolyte abnormality, anemia, colon cancer Admission/Observation Consideration of admission/observation: Escalation of care including admission/observation considered Lab Data [facility] Lab Attestation statement: I reviewed the patient's lab results. See MDM 09/19/22 15:54 09/19/22 15:54 Labs: Lab Results 09/19/22 09/19/22 09/19/22 Range/Units 15:54 15:54 15:54 WBC 7.3 (4.8-10.8) X10*3/uL RBC 3.90 L (4.20-5.50) X10*6/uL Hgb 9.7 L (12.0-16.0) g/dl Hct 31.1 L (37.0-47.0) % MCV 79.7 L (80.0-98.0) fL MCH 24.9 L (27.0-33.0) pg MCHC 31.2 (31.0-35.0) g/dl RDW 15.8 (11.0-16.0) % Plt Count 281 (160-400) X10*3/uL MPV 10.1 (9.4-12.3) fL Immature Gran % (Auto) 0.7 H (0.0-0.4) % Neut % (Auto) 55.3 (45-73) % Lymph % (Auto) 30.3 (20-40) % Kaufman % (Auto) 9.4 (2-11) % Eos % (Auto) 3.7 (0-4) % Baso % (Auto) 0.6 (0-2) % Lymph # (Auto) 2.2 (1.2-4.9) X10*3/uL Kaufman # (Auto) 0.7 (0.1-1.2) X10*3/uL Eos # (Auto) 0.3 (0.0-0.4) X10*3/uL Baso # (Auto) 0.0 (0.0-0.2) X10*3/uL Abs Immat Gran (auto) 0.05 H (0.00-0.03) X10*3/uL Absolute Neuts (auto) 4.0 (2.0-8.3) x10*3/uL Absolute Nucleated RBC 0.000 (0.0-0.012) X10*3/uL Nucleated RBC % (auto) 0.0 (0.0-0.2) /100WBC Sodium 141 (135-145) mmol/L Potassium 5.1 (3.3-5.1) mmol/L Chloride 105 (96-108) mmol/L Carbon Dioxide 28 (22-29) mmol/L Anion Gap 13 (12-20) BUN 16 (9-16) mg/dL Creatinine 0.79 (0.5-1.4) mg/dL Estim Creat Clear Calc 75.6 Estimated GFR > 60 Random Glucose 78 (60-115) mg/dL Calcium 9.1 (8.4-10.2) mg/dL Magnesium 2.5 (1.6-2.6) mg/dL Total Bilirubin 0.2 (0.0-1.0) mg/dL AST 23 (5-31) U/L ALT 14 (0-31) U/L Alkaline Phosphatase 82 (39-117) U/L B-Natriuretic Peptide 85 (<100) pg/mL Total Protein 7.1 (6.5-8.0) g/dL Albumin 4.0 (3.5-5.0) g/dL Discharge Plan Discharge Clinical Impression: Sciatica of left side, Fibromyalgia syndrome, Microcytic anemia, Non-pitting edema Patient Disposition: Home, Self-Care Instructions: Sciatica (ED), Iron Deficiency Anemia (ED) Additional Instructions: Your blood work showed a microcytic anemia suggesting that you may have iron deficiency is the cause of your anemia I did add an iron profile to her blood work. This will not come back today need to check this with your provider. I am starting you on ferrous sulfate 325 mg 3 times a day for 1 month. You will need to get a refill of this prescription from your provider you may need to be on it for 3-6 months. Given your mother's history of colon cancer at age 54, you need to get a colonoscopy to make sure that you do not have colon cancer as the cause of your iron deficient anemia. You may also need an endoscopy but you can discuss this with GI provider. Take Tylenol (acetaminophen) 500 mg pills, 2 pills every 4-6 hours as needed for pain. For pain not relieved by Tylenol, take oxycodone 5 mg pills, 1 pill every 4 hours as needed for pain. Do not drive or work while taking this medication since they can cause sleepiness. Oxycodone is a narcotic medication that can be addicting. If you are concerned about addiction you can ask the pharmacist for less pills or do not get this prescription filled. Follow-up with your doctor in 2 days. Please return to the emergency department if your symptoms get worse or if you develop any symptoms that are concerning to you. Prescriptions: New oxycodone 5 mg tablet 5 mg PO Q6H PRN (Reason: pain) Qty: 14 0RF Rx Instructions: Patient may request partial refill; Partial Fill upon patient request. ferrous sulfate 325 mg (65 mg iron) tablet 325 mg PO TID Qty: 90 0RF No Action lactulose 10 gram/15 mL solution 20 g PO BID Qty: 473 2RF metformin 500 mg tablet extended release 24 hr 1 tab PO BID clonazepam [Klonopin] 1 mg tablet 1 tab PO TID PRN (Reason: Anxiety) venlafaxine 150 mg capsule,extended release 24hr 2 cap PO QAM albuterol sulfate 90 mcg/actuation HFA aerosol inhaler 2 PO Q4-6H PRN (Reason: Wheezing) fluticasone propionate 50 mcg/actuation spray,suspension 1 - 2 spray intranasal DAILY PRN (Reason: Nasal Congestion) hydrochlorothiazide 12.5 mg tablet 1 tab PO DAILY trazodone 100 mg tablet 200 mg PO BEDTIME lidocaine 5 % adhesive patch,medicated 1 patch topical DAILY Qty: 30 0RF Rx Instructions: leave on most painful area for up to 12 hrs diclofenac sodium [Voltaren Arthritis Pain] 1 % gel 2 g topical QID Qty: 100 0RF Rx Instructions: apply to single elbow, wrist or hand; for hand includes palm/fingers/back of hand benzonatate 200 mg capsule 200 mg PO TID PRN (Reason: cough) Qty: 30 0RF tramadol 50 mg tablet 50 mg PO Q6H PRN (Reason: pain) Qty: 20 0RF doxycycline hyclate 100 mg tablet 100 mg PO BID Qty: 20 0RF diclofenac sodium [Arthritis Pain (diclofenac)] 1 % gel 2 g topical QID Qty: 100 0RF Rx Instructions: apply to single elbow, wrist or hand; for hand includes palm/fingers/back of hand famotidine [Pepcid] 20 mg tablet 20 mg PO BID 7 Days Qty: 14 0RF gabapentin [Neurontin] 600 mg tablet 600 mg PO DAILY Qty: 14 0RF triamcinolone acetonide 0.1 % cream topical BID melatonin 5 mg tablet 5 mg PO BEDTIME PRN acetaminophen 650 mg tablet extended release 650 mg PO Q6H PRN (Reason: fever) [id number]-fviwpzilafrnk-tarp 50-325-40 mg capsule 1 cap PO Q6H PRN (DME) FreeStyle Lite Strips Strip See Rx Instructions Not Applicable BID Qty: 10 Rx Instructions: As directed gabapentin 300 mg capsule 600 mg PO BEDTIME oxycodone-acetaminophen 7.5-325 mg tablet 1 tab PO ferrous sulfate 325 mg (65 mg iron) tablet,delayed release (DR/EC) 325 mg PO Q OTHER DAY docusate sodium 100 mg capsule 100 mg PO BEDTIME Qty: 90 3RF bisacodyl [Dulcolax (bisacodyl)] 5 mg tablet,delayed release (DR/EC) 10 mg PO BEDTIME Qty: 180 4RF polyethylene glycol 3350 [Miralax] 17 gram/dose powder 17 g PO DAILY Qty: 510 2RF simethicone [Gas Relief (simethicone)] 125 mg capsule 125 mg PO TID-QID PRN (Reason: abdominal distention) Qty: 120 2RF prucalopride 2 mg tablet 2 mg PO DAILY 30 Days Qty: 30 3RF
[2022-09-19 16:26] LABS: MANUAL DIFF FLAG NO
[2022-09-19 16:28] LABS: Basophils Percent Auto 0.6 % (0-2); Eosinophils Absolute Auto 0.3 X10*3/uL (0.0-0.4); Eosinophils Percent Auto 3.7 % (0-4); Hematocrit 31.1 % (37.0-47.0); Hemoglobin 9.7 g/dl (12.0-16.0); Imm Gran Abs Auto 0.05 X10*3/uL (0.00-0.03); Imm Gran Pct Auto 0.7 % (0.0-0.4); Lymphocytes Absolute Auto 2.2 X10*3/uL (1.2-4.9); Lymphocytes Percent Auto 30.3 % (20-40); Mean Corpuscular HGB Conc 31.2 g/dl (31.0-35.0); Mean Corpuscular Hemoglobin 24.9 pg (27.0-33.0); Mean Corpuscular Volume 79.7 fL (80.0-98.0); Mean Platelet Volume 10.1 fL (9.4-12.3); Monocytes Absolute Auto 0.7 X10*3/uL (0.1-1.2); Monocytes Percent Auto 9.4 % (2-11); Neutrophils Percent Auto 55.3 % (45-73); Platelet Count 281 X10*3/uL (160-400); Red Cell Distribution Width 15.8 % (11.0-16.0); White Blood Count 7.3 X10*3/uL (4.8-10.8)
[2022-09-19 16:45] LABS: Alanine Aminotransferase 14 U/L (0-31); Alkaline Phosphatase 82 U/L (39-117); Anion Gap 13 (12-20); Aspartate Amino Transferase 23 U/L (5-31); Bilirubin Total 0.2 mg/dL (0.0-1.0); Blood Urea Nitrogen 16 mg/dL (9-16); Calcium 9.1 mg/dL (8.4-10.2); Carbon Dioxide 28 mmol/L (22-29); Chloride 105 mmol/L (96-108); Creatinine Clr Calc Pharmacy 75.6; Estimated Glomerular Filt Rate > 60; Glucose Random 78 mg/dL (60-115); Magnesium 2.5 mg/dL (1.6-2.6); Potassium 5.1 mmol/L (3.3-5.1); Sodium 141 mmol/L (135-145); Total Protein 7.1 g/dL (6.5-8.0)
[2022-09-19 16:50] LABS: B Type Natriuretic Peptide 85 pg/mL (<100)
[2022-09-19 19:43] VITALS: BP 171/94; PULSE 70; RESP 18; TEMP 36.7; O2SAT 98
--- NOTE | 2022-09-19 19:52 | PC.NURSE ---
pt ambulatory at discharge. skin pwd. pt provided with discharge packet. pt verbalized understanding of discharge plan. pt denied need for bridal service sales and management
[2022-09-19 20:06] LABS: Iron 54 mcg/dL (30-160); Percent Iron Saturation 15 % (15-50); Total Iron Binding Capacity 362 mcg/dL (228-428); Unsaturated Iron Binding 308 ug/dL
== END 2022-09-19 19:53 | disposition home or self-care (01) ==
PROVIDERS: Physician Assistant; Emergency Provider Emergency Medicine Emergency Medical Services; PCP Internal Medicine
DX: M54.42 Lumbago with sciatica, left side (principal); M79.7 Fibromyalgia; D50.9 Iron deficiency anemia, unspecified; R60.0 Localized edema; R06.02 Shortness of breath; Z79.899 Other long term (current) drug therapy
CPT/HCPCS: 36415; 80053; 83540; 83735; 83880; 85025; 99283; 99284

== ENCOUNTER 2022-10-01 21:32 | Emergency (ER) | payer MEDICAID, SELFPAY ==
--- NOTE | ~2022-10-01 | XR_ITS ---
EXAMINATION: XR FOOT, LEFT CLINICAL INFORMATION: Pain. COMPARISON: Left leg 09/03/2021 TECHNIQUE: AP, lateral, and oblique views of the left foot. FINDINGS: There is osteopenia. No acute abnormality. No fracture or dislocation. No focal bone lesion or abnormal periosteal reaction. Small plantar calcaneal spur. Small spur at the posterior calcaneus XR/XR foot LT min 3V IMPRESSION: 1. No acute abnormality. 2. Osteopenia. 3. Small plantar calcaneal spur.
[2022-10-01 21:41] VITALS: BP 149/78; PULSE 73; RESP 20; TEMP 37; O2SAT 99; BMI 29.6
== END 2022-10-02 04:39 | disposition left against medical advice (07) ==
LOC: HO.ED 10-02 04:41
PROVIDERS: Emergency Provider Emergency Medicine
DX: M79.672 Pain in left foot (principal)
CPT/HCPCS: 73630; 99281; 99283

== ENCOUNTER → 2022-10-29 09:30 | Outpatient (BNVA) | payer MEDICAID, SELFPAY | PROVIDERS: PCP Internal Medicine; Visit Provider Nurse Practitioner Family | DX: K59.04 Chronic idiopathic constipation (principal); K57.90 Diverticulosis of intestine, part unspecified, without perforation or abscess without bleeding; R10.13 Epigastric pain | CPT/HCPCS: 99212 ==

== ENCOUNTER 2022-10-29 14:39 | Emergency (ER) | payer MEDICAID, SELFPAY ==
--- NOTE | ~2022-10-29 | CT_ITS ---
EXAMINATION: CT ABDOMEN AND PELVIS WITH CONTRAST CLINICAL INFORMATION: Obstruction. COMPARISON: CT scan abdomen pelvis 05/27/2022 TECHNIQUE: Multidetector volumetric images were obtained from the superior aspect of the liver through the pubic symphysis following administration 85 mL of Omnipaque 350 intravenous contrast. Sagittal and coronal reformatted images were obtained on the technologist's workstation. Oral contrast: No This CT examination was performed using dose optimization techniques as appropriate, variously including the following: *Automated exposure control *Adjustment of mA and/or kV according to patient size (this includes techniques or standardized protocols for targeted exams where dose is matched to indication/reason for exam; i.e. extremities or head) *Use of iterative reconstruction technique DLP: 1139 mGy-cm FINDINGS: LUNG BASES: The visualized lung bases are unremarkable. LIVER, GALLBLADDER, AND BILIARY TREE: The liver is normal in size, shape, and attenuation. No focal hepatic lesion or biliary ductal dilatation is present. The gallbladder is unremarkable with no evidence of radiopaque gallstones, gallbladder wall thickening, or obvious pericholecystic inflammatory changes. PANCREAS: Unremarkable. SPLEEN: Unremarkable. ADRENAL GLANDS: Unremarkable. KIDNEYS AND URETERS: The kidneys are normal in size, shape, and attenuation. No hydronephrosis, hydroureter, or calculi seen. No perinephric stranding. BLADDER: Unremarkable. GASTROINTESTINAL TRACT: Status post gastric bypass surgery. There is no acute abnormality of the bowel. No bowel obstruction. No bowel wall thickening or edema. Large volume of stool in the colon. Stool present from cecum through the pelvis. The appendix is normal. The small bowel loops are normal. ABDOMINAL WALL: No significant hernia is appreciated. LYMPH NODES: Normal. VASCULAR: Unremarkable. PELVIC VISCERA: Status post hysterectomy. OSSEOUS STRUCTURES: Multilevel degenerative spondylosis spine. No acute osseous abnormality. CT/CT abdomen pelvis w IV con IMPRESSION: No acute abnormality CT scan abdomen pelvis. Large volume of stool in the colon. No acute abnormality of the bowel. Fleischner guidelines were followed.
[2022-10-29 14:48] VITALS: BP 140/83; PULSE 78; RESP 18; TEMP 36.4; O2SAT 98; BMI 29.6
--- NOTE | 2022-10-29 14:50 | ED_ITS ---
HPI - General Adult General Chief complaint: Abdominal Pain Stated complaint: sent by gastro, constipated Time Seen by Provider: 10/29/22 18:24 Source: patient Mode of arrival: ambulatory Limitations: no limitations History of Present Illness HPI narrative: Patient comes in the emergency room from Gastroenterology. Patient complaining of diffuse abdominal pain, distention, constipation for 2 weeks. Patient also complaining of nausea, no vomiting. Patient states the constipation is chronic. Denies fever chills, no URI or UTI symptoms. Reviewing patient's medications, patient takes oxycodone and iron sulfate Related Data Home Medications Medication Instructions Recorded Confirmed albuterol sulfate 90 mcg/actuation 2 PO Q4-6H PRN Wheezing 01/01/21 05/15/22 aerosol inhaler clonazepam 1 mg tablet (Klonopin) 1 tab PO TID PRN Anxiety 01/01/21 05/15/22 fluticasone propionate 50 1 - 2 spray intranasal DAILY PRN 01/01/21 05/15/22 mcg/actuation nasal Nasal Congestion spray,suspension hydrochlorothiazide 12.5 mg tablet 1 tab PO DAILY 01/01/21 05/15/22 metformin 500 mg tablet,extended 1 tab PO BID 01/01/21 05/15/22 release 24 hr venlafaxine 150 mg 2 cap PO QAM 01/01/21 05/15/22 capsule,extended release 24 hr melatonin 5 mg tablet 5 mg PO BEDTIME PRN 12/05/21 05/15/22 triamcinolone acetonide 0.1 % appl topical BID 12/05/21 05/15/22 topical cream acetaminophen 650 mg 650 mg PO Q6H PRN fever 12/27/21 05/15/22 tablet,extended release blood sugar diagnostic (FreeStyle #10 ea 12/27/21 05/15/22 Lite Strips) drzwbdadwe-lredptdlmzdmo-pjxnfxrs 1 cap PO Q6H PRN 12/27/21 05/15/22 50 mg-325 mg-40 mg capsule gabapentin 300 mg capsule 600 mg PO BEDTIME 03/11/22 05/15/22 oxycodone-acetaminophen 7.5 mg-325 1 tab PO severe pain 03/11/22 05/15/22 mg tablet trazodone 100 mg tablet 200 mg PO BEDTIME 03/11/22 05/15/22 Previous Rx's Medication Instructions Recorded diclofenac sodium 1 % topical gel 2 g topical QID #100 grams 02/13/22 (Voltaren Arthritis Pain) lidocaine 5 % topical patch 1 patch topical DAILY #30 ea 02/13/22 polyethylene glycol 3350 17 17 g PO DAILY #510 grams 03/11/22 gram/dose oral powder (Miralax) benzonatate 200 mg capsule 200 mg PO TID PRN cough #30 caps 03/29/22 lactulose 10 gram/15 mL oral 20 g (30 mL) PO BID #473 mL 04/09/22 solution simethicone 125 mg capsule (Gas 125 mg PO TID-QID PRN abdominal 04/17/22 Relief (simethicone)) distention #120 caps gabapentin 600 mg tablet 600 mg PO DAILY #14 tabs 05/16/22 (Neurontin) diclofenac sodium 1 % topical gel 2 g topical QID #100 grams 05/18/22 (Arthritis Pain (diclofenac)) diphenhydramine HCl 25 mg tablet 50 mg PO QID PRN Itchiness #30 tabs 09/19/22 (Benadryl Allergy) ferrous sulfate 325 mg (65 mg 325 mg PO TID #90 tabs 09/19/22 iron) tablet oxycodone 5 mg tablet 5 mg PO Q6H PRN pain #14 tabs 09/19/22 linaclotide 145 mcg capsule 145 mcg PO DAILY #30 caps 10/29/22 (Linzess) sodium phosphates 19 gram-7 118 ml CA DAILY PRN constipation 10/29/22 gram/118 mL enema (Fleet Enema) #133 mL Allergies Allergy/AdvReac Type Severity Reaction Status Date / Time morphine [MORPHINE] Allergy Intermediate PALPITATIONS, Verified 10/29/22 14:51 tachicardia quetiapine [Seroquel] Allergy Unknown Unknown Verified 10/29/22 14:51 orphenadrine [ORPHENADRINE] AdvReac Intermediate RAPID Verified 10/29/22 14:51 HEART RATE Review of Systems Review of Systems: Constitutional : No Weight loss, No Fever, No Chills, No Night Sweats, No Fatigue, No Malaise ENT/Mouth : No Hearing loss, No Ear Pain, No Nasal Congestion, No Sinus Pain, No Hoarseness, No sore throat, No Rhinorrhea, No Swallowing Difficulty Eyes: No Eye Pain, No Swelling, No Redness, No Foreign Body, No Discharge, No Vision Changes Cardiovascular : No Chest Pain, No SOB, No Dyspnea on Exertion, No Orthopnea, No Edema, No Palpitations Respiratory : No Cough, No Sputum, No Wheezing, No Smoke Exposure, No Dyspnea Gastrointestinal : Complaining of nausea, no vomiting or diarrhea, complaining of constipation and abdominal distension Genitourinary : no irregular bleeding, No Dysuria, No Urinary Frequency, No Hematuria, No Urinary Incontinence, No Urgency, No Flank Pain, No Urinary Flow Changes, No Hesitancy Musculoskeletal : No joint pain, No Myalgias, No Joint Swelling Skin : No Skin Lesions, No rash Neuro : No Weakness, No Numbness, No Paresthesias, No Loss of Consciousness, No Dizziness, No Headache Psych : No Anxiety/Panic, No Depression, No SI/HI/AH/VH, No Social Issues, Heme/Lymph: No Bruising, No Bleeding,No Lymphadenopathy Endocrine : No Polyuria, No Polydipsia, No Temperature Intolerance PMFSH Past Medical History Medical History Anxiety Asthma Chronic idiopathic constipation Depression Diabetes 1.5, managed as type 2 Diverticulosis Fibromyalgia Migraine Surgical History Gastric bypass status for obesity H/O colonoscopy History of pubovaginal sling Hx of bilateral breast reduction surgery Hx of oophorectomy Family History Family History Mother Colon cancer Social History Social History Household Members Other:: lives alone Housing: Condominium Alcohol intake: unknown Patient Tobacco Use Status: Never used Tobacco Advance Directives: No Advance Directives Information Provided: No service: No Current occupational status: disabled Gender identity: Female Physical Exam ED Vital Signs: Vital Signs - 24 hr 10/29/22 14:48 10/29/22 17:11 10/29/22 18:07 Temperature 97.6 F 98 F Pulse Rate 78 69 85 Respiratory Rate 18 18 18 Blood Pressure 140/83 H 131/79 130/72 Pulse Oximetry 98 97 100 Oxygen Delivery Method Room Air Room Air Room Air 10/29/22 20:03 Temperature 98.4 F Pulse Rate 74 Respiratory Rate 12 Blood Pressure 136/81 Pulse Oximetry 99 Oxygen Delivery Method Room Air BMI result Body Mass Index 29.6 Const Other: Appearance: Alert. Oriented X3. No acute distress. Well-appearing Eyes: Pupils equal, round and reactive to light. ENT: Pharynx normal. Neck: Normal inspection. Neck supple. No lymph nodes noted. No crepitus CVS: Normal heart rate and rhythm. Pulses normal. Normal S1 and S2 Respiratory: No respiratory distress. Breath sounds normal. No Wheezing. No rales Abdomen: Soft and nontender. Mild distension, no rebound, no guarding Skin: Skin warm and dry. Normal skin color. Normal skin turgor. Extremities: No lower extremity edema. No Lacerations. No Rash Neuro: Oriented X 3. No motor deficit. No sensory deficit. Moving all extremities. No slurred speech. CN 2 through 12 grossly intact Psych: calm, cooperative, normal affect Course Course Course Narrative: RME- 62 year old female presnts for evaluation for constipation x 2 weeks. She has no had a bowel movement in 2 weeks. She reports was sent here by gastroenterology however we did not receive an expect and has a history of chronic constipation. Per GI notes, the patient is noncompliant with bowel regimine. Plan for labs and CT, UA Medications Administered Discontinued Medications Generic Name Dose Route Start Last Admin Trade Name Freq PRN Reason Stop Dose Admin Sodium Chloride 1,000 mls @ 999 mls/hr 10/29/22 18:47 10/29/22 18:57 Ns IVCONT 10/29/22 19:47 999 mls/hr .Q1H1M ONE Administration Iohexol 100 ml 10/29/22 18:57 10/29/22 18:58 Iohexol 350 Mg/Ml 100 Ml Infus..Btl IV 10/29/22 18:58 85 ml ONCE ONE Administration Ondansetron HCl 4 mg 10/29/22 18:47 10/29/22 18:57 Ondansetron Hcl 4 Mg/2 Ml Vial IVPUSH 10/29/22 18:48 Not Given ONCE ONE Medical Decision Making Medical Decision Making [facility] Narrative: -patient's labs and imaging pending -patient likely constipated secondary to p.o. intake of oxycodone and iron sulfate -patient's lactic acid improved with fluids, sepsis not suspected. -I discussed the CT scan with the patient, no acute findings, patient ready for discharge. 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 10/29/22 16:04 10/29/22 16:04 Labs: Lab Results 10/29/22 10/29/22 10/29/22 Range/Units 15:59 16:03 16:04 WBC 9.8 (4.8-10.8) X10*3/uL RBC 4.29 (4.20-5.50) X10*6/uL Hgb 10.5 L (12.0-16.0) g/dl Hct 34.4 L (37.0-47.0) % MCV 80.2 (80.0-98.0) fL MCH 24.5 L (27.0-33.0) pg MCHC 30.5 L (31.0-35.0) g/dl RDW 16.9 H (11.0-16.0) % Plt Count 338 (160-400) X10*3/uL MPV 9.7 (9.4-12.3) fL Immature Gran % (Auto) 1.0 H (0.0-0.4) % Neut % (Auto) 69.1 (45-73) % Lymph % (Auto) 20.5 (20-40) % [place] % (Auto) 7.4 (2-11) % Eos % (Auto) 1.8 (0-4) % Baso % (Auto) 0.2 (0-2) % Lymph # (Auto) 2.0 (1.2-4.9) X10*3/uL [place] # (Auto) 0.7 (0.1-1.2) X10*3/uL Eos # (Auto) 0.2 (0.0-0.4) X10*3/uL Baso # (Auto) 0.0 (0.0-0.2) X10*3/uL Abs Immat Gran (auto) 0.10 H (0.00-0.03) X10*3/uL Absolute Neuts (auto) 6.8 (2.0-8.3) x10*3/uL Absolute Nucleated RBC 0.000 (0.0-0.012) X10*3/uL Nucleated RBC % (auto) 0.0 (0.0-0.2) /100WBC PT (10.0-13.1) SEC INR (0.9-1.1) APTT (26.0-36.4) SEC Sodium (135-145) mmol/L Potassium (3.3-5.1) mmol/L Chloride (96-108) mmol/L Carbon Dioxide (22-29) mmol/L Anion Gap (12-20) BUN (9-16) mg/dL Creatinine (0.5-1.4) mg/dL Estim Creat Clear Calc Estimated GFR Random Glucose (60-115) mg/dL Lactic Acid 2.8 H* (0.5-2.0) mmol/L Lactic Acid F/U @ 2Hr (0.5-2.0) mmol/L Lactic Acid F/U @ 4Hr (0.5-2.0) mmol/L Calcium (8.4-10.2) mg/dL Total Bilirubin (0.0-1.0) mg/dL Direct Bilirubin (0.0-0.5) mg/dL AST (5-31) U/L ALT (0-31) U/L Alkaline Phosphatase (39-117) U/L Total Protein (6.5-8.0) g/dL Albumin (3.5-5.0) g/dL Lipase (8-78) U/L Urine Color Yellow Urine Appearance Clear Urine pH 5.0 (5.0-9.0) Ur Specific [place] 1.025 (1.005-1.025) Urine Protein Negative (Neg-Trace) mg/dL Urine Glucose (UA) Negative (Negative) mg/dL Urine Ketones Negative (Negative) mg/dL Urine Blood Negative (Negative) Urine Nitrite Negative (Negative) Ur Leukocyte Esterase Small (1+) H (Negative) Urine RBC 0-2 (0-2) /HPF Urine WBC 0-5 (0-5) /HPF Ur Squamous Epith Cells 0-2 (0-2) /HPF Urine Bacteria None Seen (None Seen) Hyaline Casts 3-5 (0-2) /LPF 06/10/29/22 10/29/22 Range/Units 16:04 16:04 18:37 WBC (4.8-10.8) X10*3/uL RBC (4.20-5.50) X10*6/uL Hgb (12.0-16.0) g/dl Hct (37.0-47.0) % MCV (80.0-98.0) fL MCH (27.0-33.0) pg MCHC (31.0-35.0) g/dl RDW (11.0-16.0) % Plt Count (160-400) X10*3/uL MPV (9.4-12.3) fL Immature Gran % (Auto) (0.0-0.4) % Neut % (Auto) (45-73) % Lymph % (Auto) (20-40) % [place] % (Auto) (2-11) % Eos % (Auto) (0-4) % Baso % (Auto) (0-2) % Lymph # (Auto) (1.2-4.9) X10*3/uL [place] # (Auto) (0.1-1.2) X10*3/uL Eos # (Auto) (0.0-0.4) X10*3/uL Baso # (Auto) (0.0-0.2) X10*3/uL Abs Immat Gran (auto) (0.00-0.03) X10*3/uL Absolute Neuts (auto) (2.0-8.3) x10*3/uL Absolute Nucleated RBC (0.0-0.012) X10*3/uL Nucleated RBC % (auto) (0.0-0.2) /100WBC PT 9.4 L (10.0-13.1) SEC INR 0.8 L (0.9-1.1) APTT 28.3 (26.0-36.4) SEC Sodium 139 (135-145) mmol/L Potassium 4.6 (3.3-5.1) mmol/L Chloride 103 (96-108) mmol/L Carbon Dioxide 26 (22-29) mmol/L Anion Gap 15 (12-20) BUN 26 H (9-16) mg/dL Creatinine 0.82 (0.5-1.4) mg/dL Estim Creat Clear Calc 76.6 Estimated GFR > 60 Random Glucose 93 (60-115) mg/dL Lactic Acid (0.5-2.0) mmol/L Lactic Acid F/U @ 2Hr 3.2 H* (0.5-2.0) mmol/L Lactic Acid F/U @ 4Hr (0.5-2.0) mmol/L Calcium 9.4 (8.4-10.2) mg/dL Total Bilirubin 0.2 (0.0-1.0) mg/dL Direct Bilirubin (0.0-0.5) mg/dL AST 20 (5-31) U/L ALT 15 (0-31) U/L Alkaline Phosphatase 86 (39-117) U/L Total Protein 7.7 (6.5-8.0) g/dL Albumin 4.2 (3.5-5.0) g/dL Lipase 26 (8-78) U/L Urine Color Urine Appearance Urine pH (5.0-9.0) Ur Specific [place] (1.005-1.025) Urine Protein (Neg-Trace) mg/dL Urine Glucose (UA) (Negative) mg/dL Urine Ketones (Negative) mg/dL Urine Blood (Negative) Urine Nitrite (Negative) Ur Leukocyte Esterase (Negative) Urine RBC (0-2) /HPF Urine WBC (0-5) /HPF Ur Squamous Epith Cells (0-2) /HPF Urine Bacteria (None Seen) Hyaline Casts (0-2) /LPF 10/29/22 10/29/22 10/29/22 Range/Units 19:42 19:42 20:56 WBC 8.2 (4.8-10.8) X10*3/uL RBC 3.96 L (4.20-5.50) X10*6/uL Hgb 9.8 L (12.0-16.0) g/dl Hct 31.2 L (37.0-47.0) % MCV 78.8 L (80.0-98.0) fL MCH 24.7 L (27.0-33.0) pg MCHC 31.4 (31.0-35.0) g/dl RDW 16.8 H (11.0-16.0) % Plt Count 315 (160-400) X10*3/uL MPV 9.6 (9.4-12.3) fL Immature Gran % (Auto) 1.1 H (0.0-0.4) % Neut % (Auto) 60.3 (45-73) % Lymph % (Auto) 27.4 (20-40) % [place] % (Auto) 8.3 (2-11) % Eos % (Auto) 2.5 (0-4) % Baso % (Auto) 0.4 (0-2) % Lymph # (Auto) 2.2 (1.2-4.9) X10*3/uL [place] # (Auto) 0.7 (0.1-1.2) X10*3/uL Eos # (Auto) 0.2 (0.0-0.4) X10*3/uL Baso # (Auto) 0.0 (0.0-0.2) X10*3/uL Abs Immat Gran (auto) 0.09 H (0.00-0.03) X10*3/uL Absolute Neuts (auto) 4.9 (2.0-8.3) x10*3/uL Absolute Nucleated RBC 0.000 (0.0-0.012) X10*3/uL Nucleated RBC % (auto) 0.0 (0.0-0.2) /100WBC PT (10.0-13.1) SEC INR (0.9-1.1) APTT (26.0-36.4) SEC Sodium 140 (135-145) mmol/L Potassium 4.4 (3.3-5.1) mmol/L Chloride 103 (96-108) mmol/L Carbon Dioxide 26 (22-29) mmol/L Anion Gap 15 (12-20) BUN 24 H (9-16) mg/dL Creatinine 0.76 (0.5-1.4) mg/dL Estim Creat Clear Calc 82.6 Estimated GFR > 60 Random Glucose 73 (60-115) mg/dL Lactic Acid (0.5-2.0) mmol/L Lactic Acid F/U @ 2Hr (0.5-2.0) mmol/L Lactic Acid F/U @ 4Hr 1.3 (0.5-2.0) mmol/L Calcium 9.1 (8.4-10.2) mg/dL Total Bilirubin 0.2 (0.0-1.0) mg/dL Direct Bilirubin < 0.2 (0.0-0.5) mg/dL AST 16 (5-31) U/L ALT 12 (0-31) U/L Alkaline Phosphatase 75 (39-117) U/L Total Protein 6.9 (6.5-8.0) g/dL Albumin 3.7 (3.5-5.0) g/dL Lipase 25 (8-78) U/L Urine Color Urine Appearance Urine pH (5.0-9.0) Ur Specific [place] (1.005-1.025) Urine Protein (Neg-Trace) mg/dL Urine Glucose (UA) (Negative) mg/dL Urine Ketones (Negative) mg/dL Urine Blood (Negative) Urine Nitrite (Negative) Ur Leukocyte Esterase (Negative) Urine RBC (0-2) /HPF Urine WBC (0-5) /HPF Ur Squamous Epith Cells (0-2) /HPF Urine Bacteria (None Seen) Hyaline Casts (0-2) /LPF Radiology Impression Discussion of test interpretation with radiology: I have reviewed the radiologist's reading. Radiologist Impression: FINDINGS: LUNG BASES: The visualized lung bases are unremarkable.? LIVER, GALLBLADDER, AND BILIARY TREE: The liver is normal in size, shape, and attenuation. No focal hepatic lesion or biliary ductal dilatation is present. The gallbladder is unremarkable with no evidence of radiopaque gallstones, gallbladder wall thickening, or obvious pericholecystic inflammatory changes.? PANCREAS: Unremarkable.? SPLEEN: Unremarkable.? ADRENAL GLANDS: Unremarkable.? KIDNEYS AND URETERS: The kidneys are normal in size, shape, and attenuation. No hydronephrosis, hydroureter, or calculi seen. No perinephric stranding. ? BLADDER: Unremarkable.? GASTROINTESTINAL TRACT: Status post gastric bypass surgery. There is no acute abnormality of the bowel. No bowel obstruction. No bowel wall thickening or edema. Large volume of stool in the colon. Stool present from cecum through the pelvis. The appendix is normal. The small bowel loops are normal.? ABDOMINAL WALL: No significant hernia is appreciated.? LYMPH NODES: Normal. VASCULAR: Unremarkable. PELVIC VISCERA: Status post hysterectomy.? OSSEOUS STRUCTURES: Multilevel degenerative spondylosis spine. No acute osseous abnormality.? CT/CT abdomen pelvis w IV con IMPRESSION: No acute abnormality CT scan abdomen pelvis. Large volume of stool in the colon. No acute abnormality of the bowel. ? Fleischner guidelines were followed. Discharge Plan Discharge Clinical Impression: Constipation Patient Disposition: Home, Self-Care Instructions: Constipation (ED) Additional Instructions: Please follow-up with your primary care physician tomorrow. If you have any worsening or new symptoms, please return to the emergency room or call 911 Prescriptions: [place] Enema 19-7 gram/118 mL enema 118 ml CA DAILY PRN (Reason: constipation) Qty: 133 2RF No Action lactulose 10 gram/15 mL solution 20 g PO BID Qty: 473 2RF metformin 500 mg tablet extended release 24 hr 1 tab PO BID clonazepam [Klonopin] 1 mg tablet 1 tab PO TID PRN (Reason: Anxiety) venlafaxine 150 mg capsule,extended release 24hr 2 cap PO QAM albuterol sulfate 90 mcg/actuation HFA aerosol inhaler 2 PO Q4-6H PRN (Reason: Wheezing) fluticasone propionate 50 mcg/actuation spray,suspension 1 - 2 spray intranasal DAILY PRN (Reason: Nasal Congestion) hydrochlorothiazide 12.5 mg tablet 1 tab PO DAILY trazodone 100 mg tablet 200 mg PO BEDTIME lidocaine 5 % adhesive patch,medicated 1 patch topical DAILY Qty: 30 0RF Rx Instructions: leave on most painful area for up to 12 hrs diclofenac sodium [Voltaren Arthritis Pain] 1 % gel 2 g topical QID Qty: 100 0RF Rx Instructions: apply to single elbow, wrist or hand; for hand includes palm/fingers/back of hand benzonatate 200 mg capsule 200 mg PO TID PRN (Reason: cough) Qty: 30 0RF diclofenac sodium [Arthritis Pain (diclofenac)] 1 % gel 2 g topical QID Qty: 100 0RF Rx Instructions: apply to single elbow, wrist or hand; for hand includes palm/fingers/back of hand gabapentin [Neurontin] 600 mg tablet 600 mg PO DAILY Qty: 14 0RF oxycodone 5 mg tablet 5 mg PO Q6H PRN (Reason: pain) Qty: 14 0RF Rx Instructions: Patient may request partial refill; Partial Fill upon patient request. ferrous sulfate 325 mg (65 mg iron) tablet 325 mg PO TID Qty: 90 0RF diphenhydramine HCl [Benadryl Allergy] 25 mg tablet 50 mg PO QID PRN (Reason: Itchiness) Qty: 30 0RF triamcinolone acetonide 0.1 % cream topical BID melatonin 5 mg tablet 5 mg PO BEDTIME PRN acetaminophen 650 mg tablet extended release 650 mg PO Q6H PRN (Reason: fever) cxkdbahjjn-joytlmtsjipzq-fghb 50-325-40 mg capsule 1 cap PO Q6H PRN (DME) FreeStyle Lite Strips Strip See Rx Instructions Not Applicable BID Qty: 10 Rx Instructions: As directed gabapentin 300 mg capsule 600 mg PO BEDTIME oxycodone-acetaminophen 7.5-325 mg tablet 1 tab PO polyethylene glycol 3350 [Miralax] 17 gram/dose powder 17 g PO DAILY Qty: 510 2RF simethicone [Gas Relief (simethicone)] 125 mg capsule 125 mg PO TID-QID PRN (Reason: abdominal distention) Qty: 120 2RF Linzess 145 mcg capsule 145 mcg PO DAILY Qty: 30 2RF
--- NOTE | 2022-10-29 16:08 | MHC.EDTECH ---
PATIENT BLOOD DRAWN AND URINE SAMPLE COLLECTED AND SENT TO LAB .
[2022-10-29 16:23] LABS: MANUAL DIFF FLAG NO
[2022-10-29 16:25] LABS: Basophils Percent Auto 0.2 % (0-2); Eosinophils Absolute Auto 0.2 X10*3/uL (0.0-0.4); Eosinophils Percent Auto 1.8 % (0-4); Hematocrit 34.4 % (37.0-47.0); Hemoglobin 10.5 g/dl (12.0-16.0); Lymphocytes Percent Auto 20.5 % (20-40); Mean Corpuscular HGB Conc 30.5 g/dl (31.0-35.0); Mean Corpuscular Hemoglobin 24.5 pg (27.0-33.0); Mean Corpuscular Volume 80.2 fL (80.0-98.0); Mean Platelet Volume 9.7 fL (9.4-12.3); Monocytes Absolute Auto 0.7 X10*3/uL (0.1-1.2); Monocytes Percent Auto 7.4 % (2-11); Neutrophils Absolute Auto 6.8 x10*3/uL (2.0-8.3); Neutrophils Percent Auto 69.1 % (45-73); Platelet Count 338 X10*3/uL (160-400); Red Blood Count 4.29 X10*6/uL (4.20-5.50); Red Cell Distribution Width 16.9 % (11.0-16.0); White Blood Count 9.8 X10*3/uL (4.8-10.8)
[2022-10-29 16:26] LABS: Appearance Urine Clear; Color Urine Yellow; Glucose Urine UA Negative (Negative); Leukocyte Esterase Urine Small (1+) (Negative); Nitrite Urine Negative (Negative); Specific Gravity - Urine 1.025 (1.005-1.025); UMIC TRIGGER UACC YES; Urine Blood Negative (Negative); Urine Ketones Negative (Negative); Urine Protein Negative (Neg-Trace)
[2022-10-29 16:38] LABS: Bacteria Urine None Seen (None Seen); RBC Urine 0-2 /HPF (0-2); Squamous Epithelial Cell Urine 0-2 /HPF (0-2); UACC Culture Trigger YES; WBC Urine 0-5 /HPF (0-5)
[2022-10-29 16:39] LABS: INTERNATIONAL NORM RATIO 0.8 (0.9-1.1); Prothrombin Time 9.4 SEC (10.0-13.1)
[2022-10-29 16:41] LABS: Partial Thromboplastin Time 28.3 SEC (26.0-36.4)
[2022-10-29 16:43] LABS: Lactic Acid 2.8 mmol/L (0.5-2.0)
[2022-10-29 16:44] LABS: Alanine Aminotransferase 15 U/L (0-31); Albumin Level 4.2 g/dL (3.5-5.0); Alkaline Phosphatase 86 U/L (39-117); Anion Gap 15 (12-20); Aspartate Amino Transferase 20 U/L (5-31); Bilirubin Total 0.2 mg/dL (0.0-1.0); Blood Urea Nitrogen 26 mg/dL (9-16); Calcium 9.4 mg/dL (8.4-10.2); Carbon Dioxide 26 mmol/L (22-29); Chloride 103 mmol/L (96-108); Creatinine Clr Calc Pharmacy 76.6; Estimated Glomerular Filt Rate > 60; Glucose Random 93 mg/dL (60-115); Lipase 26 U/L (8-78); Potassium 4.6 mmol/L (3.3-5.1); Sodium 139 mmol/L (135-145); Total Protein 7.7 g/dL (6.5-8.0)
[2022-10-29 17:11] VITALS: BP 131/79; PULSE 69; RESP 18; TEMP 36.6; O2SAT 97
[2022-10-29 18:07] VITALS: BP 130/72; PULSE 85; RESP 18; O2SAT 100
[2022-10-29 18:17] LABS: Reflex Lactate? Lactic Acid Added
[2022-10-29 18:55] LABS: ~Lactic Acid-LAB USE ONLY 3.2 mmol/L (0.5-2.0)
[2022-10-29] MEDS: 0.9 % Sodium Chloride 1,000 ML 999 ML IVCONT (18:57)
[2022-10-29] MEDS: iohexoL 350 MG/ML 100 ML INFUS..BTL IV (18:58)
[2022-10-29 19:47] LABS: MANUAL DIFF FLAG NO
[2022-10-29 19:54] LABS: Basophils Percent Auto 0.4 % (0-2); Eosinophils Absolute Auto 0.2 X10*3/uL (0.0-0.4); Eosinophils Percent Auto 2.5 % (0-4); Hematocrit 31.2 % (37.0-47.0); Hemoglobin 9.8 g/dl (12.0-16.0); Imm Gran Abs Auto 0.09 X10*3/uL (0.00-0.03); Imm Gran Pct Auto 1.1 % (0.0-0.4); Lymphocytes Absolute Auto 2.2 X10*3/uL (1.2-4.9); Lymphocytes Percent Auto 27.4 % (20-40); Mean Corpuscular HGB Conc 31.4 g/dl (31.0-35.0); Mean Corpuscular Hemoglobin 24.7 pg (27.0-33.0); Mean Corpuscular Volume 78.8 fL (80.0-98.0); Mean Platelet Volume 9.6 fL (9.4-12.3); Monocytes Absolute Auto 0.7 X10*3/uL (0.1-1.2); Monocytes Percent Auto 8.3 % (2-11); Neutrophils Absolute Auto 4.9 x10*3/uL (2.0-8.3); Neutrophils Percent Auto 60.3 % (45-73); Platelet Count 315 X10*3/uL (160-400); Red Blood Count 3.96 X10*6/uL (4.20-5.50); Red Cell Distribution Width 16.8 % (11.0-16.0); White Blood Count 8.2 X10*3/uL (4.8-10.8)
[2022-10-29 20:03] VITALS: BP 136/81; PULSE 74; RESP 12; TEMP 36.9; O2SAT 99
[2022-10-29 20:04] LABS: Alanine Aminotransferase 12 U/L (0-31); Albumin Level 3.7 g/dL (3.5-5.0); Alkaline Phosphatase 75 U/L (39-117); Anion Gap 15 (12-20); Aspartate Amino Transferase 16 U/L (5-31); Bilirubin Direct < 0.2 mg/dL (0.0-0.5); Bilirubin Total 0.2 mg/dL (0.0-1.0); Blood Urea Nitrogen 24 mg/dL (9-16); Calcium 9.1 mg/dL (8.4-10.2); Carbon Dioxide 26 mmol/L (22-29); Chloride 103 mmol/L (96-108); Creatinine Clr Calc Pharmacy 82.6; Estimated Glomerular Filt Rate > 60; Glucose Random 73 mg/dL (60-115); Lipase 25 U/L (8-78); Potassium 4.4 mmol/L (3.3-5.1); Sodium 140 mmol/L (135-145); Total Protein 6.9 g/dL (6.5-8.0)
[2022-10-29 20:39] LABS: Reflex Lactate? 2 Y
[2022-10-29 21:14] LABS: ~Lactic Acid-LAB USE ONLY 1.3 mmol/L (0.5-2.0)
== END 2022-10-29 21:47 | disposition home or self-care (01) ==
PROVIDERS: Physician Assistant; Emergency Provider Emergency Medicine; PCP Internal Medicine
DX: K59.00 Constipation, unspecified (principal); Z98.84 Bariatric surgery status; Z79.899 Other long term (current) drug therapy
CPT/HCPCS: 36415; 74177; 80048; 80053; 80076; 81001; 83605; 83690; 85025; 85610; 85730; 87086; 99284; Q9967

== ENCOUNTER 2022-12-09 11:02 | Day surgery (SDC) | payer MEDICAID, SELFPAY ==
[2022-12-05 12:16] VITALS: BMI 29.3
--- NOTE | 2022-12-06 10:51 | P.CONAN_ITS ---
Documented by User: Bri Arita NP 12/06/22 10:52 HPI - Anesthesia Eval Consult details Narrative: 62yo F for Upper Endoscopy and Colonoscopy PMF Active Problems Active Problems: All Active Problems (Updated 10/30/22 @ 00:02 by Raymon Alaniz) History of pubovaginal sling (Acute) Chronic pain (Acute) Hesitancy of micturition (Acute) Leg pain (Acute) Varicose veins of right lower extremity with inflammation (Acute) Feeling of incomplete bladder emptying (Acute) Symptom of leg swelling (Acute) Shoulder pain, right (Acute) Osteoarthritis of right glenohumeral joint (Acute) COVID-19 (Acute) Diverticulosis (Acute) Chronic idiopathic constipation (Acute) Migraine (Acute) Fibromyalgia (Acute) Diabetes 1.5, managed as type 2 (Acute) Depression (Acute) Asthma (Acute) Past Medical History Medical History Anxiety Asthma Chronic idiopathic constipation Depression Diabetes 1.5, managed as type 2 Diverticulosis Fibromyalgia Migraine Family History Family History Mother Colon cancer Surgical History Surgical History Gastric bypass status for obesity H/O colonoscopy History of pubovaginal sling Hx of bilateral breast reduction surgery Hx of oophorectomy Social History Social History Household Members Other:: lives alone Housing: Condominium Alcohol intake: unknown Patient Tobacco Use Status: Never used Tobacco Are you DNR?: No Advance Directives: No Advance Directives Information Provided: Yes Nutrition Risks: No Nutritional Risk service: No Current occupational status: disabled Gender identity: Female Meds Allergies Allergy/AdvReac Type Severity Reaction Status Date / Time morphine [MORPHINE] Allergy Intermediate PALPITATIONS, Verified 10/29/22 14:51 tachicardia quetiapine [Seroquel] Allergy Unknown Unknown Verified 10/29/22 14:51 orphenadrine [ORPHENADRINE] AdvReac Intermediate RAPID Verified 10/29/22 14:51 HEART RATE Home Medications Medication Instructions Recorded Confirmed Last Taken Type albuterol sulfate 90 mcg/actuation 2 PO Q4-6H PRN Wheezing 01/01/21 05/15/22 Unknown History aerosol inhaler clonazepam 1 mg tablet (Klonopin) 1 tab PO TID PRN Anxiety 01/01/21 05/15/22 Unknown History fluticasone propionate 50 1 - 2 spray intranasal DAILY PRN 01/01/21 05/15/22 Unknown History mcg/actuation nasal Nasal Congestion spray,suspension hydrochlorothiazide 12.5 mg tablet 1 tab PO DAILY 01/01/21 05/15/22 Unknown History metformin 500 mg tablet,extended 1 tab PO BID 01/01/21 05/15/22 Unknown History release 24 hr venlafaxine 150 mg 2 cap PO QAM 01/01/21 05/15/22 01/05/21 History capsule,extended release 24 hr melatonin 5 mg tablet 5 mg PO BEDTIME PRN 12/05/21 05/15/22 Unknown History triamcinolone acetonide 0.1 % appl topical BID 12/05/21 05/15/22 Unknown History topical cream acetaminophen 650 mg 650 mg PO Q6H PRN fever 12/27/21 05/15/22 Unknown History tablet,extended release blood sugar diagnostic (FreeStyle #10 ea 12/27/21 05/15/22 Unknown History Lite Strips) [id number] 1 cap PO Q6H PRN 12/27/21 05/15/22 Unknown History 50 mg-325 mg-40 mg capsule gabapentin 300 mg capsule 600 mg PO BEDTIME 03/11/22 05/15/22 Unknown History oxycodone-acetaminophen 7.5 mg-325 1 tab PO severe pain 03/11/22 05/15/22 Unknown History mg tablet trazodone 100 mg tablet 200 mg PO BEDTIME 03/11/22 05/15/22 Unknown History Exam Exam Date and Time: December 06, 2022 1051 Height,Weight and Vital Signs: Height 5 ft 5 in Weight 79.832 kg Pertinent Lab Results Pertinent Lab Results: Laboratory Tests 10/29/22 10/29/22 19:42 19:42 WBC 8.2 Hgb 9.8 L Hct 31.2 L Plt Count 315 Sodium 140 Potassium 4.4 Chloride 103 Carbon Dioxide 26 BUN 24 H Creatinine 0.76 Narrative Narrative: EKG 01/2022 Vent. Rate : 072 BPM ? ? Atrial Rate : 072 BPM ?? P-R Int : 198 ms? QRS Dur : 104 ms ? ? QT Int : 428 ms ? ? ? P-R-T Axes : 049 -21 041 degrees ?? QTc Int : 468 ms ? Normal sinus rhythm Low voltage QRS Incomplete right bundle branch block Cannot rule out Anterior infarct (cited on or before 14-MAY-2021) Abnormal ECG When compared with ECG of 18-JUL-2021 13:26, No significant change was found Assessment and Plan Assessment Anesthesia Assessment: Chart Reviewed Documented by User: Fernanda Mitchell MD 12/09/22 13:30 [facility] Past Medical History Medical History Anxiety Asthma Chronic idiopathic constipation Depression Diabetes 1.5, managed as type 2 Diverticulosis Fibromyalgia Migraine Family History Family History Mother Colon cancer Family history of problems with anesthesia: No Surgical History Surgical History Gastric bypass status for obesity H/O colonoscopy History of pubovaginal sling Hx of bilateral breast reduction surgery Hx of oophorectomy History of Problems with Anesthesia: No Social History Social History Household Members Other:: lives alone Housing: Condominium Alcohol intake: unknown Patient Tobacco Use Status: Never used Tobacco Are you DNR?: No Advance Directives: No Advance Directives Information Provided: Yes Nutrition Risks: No Nutritional Risk service: No Current occupational status: disabled Gender identity: Female Meds Allergies Allergy/AdvReac Type Severity Reaction Status Date / Time morphine [MORPHINE] Allergy Intermediate PALPITATIONS, Verified 10/29/22 14:51 tachicardia quetiapine [Seroquel] Allergy Unknown Unknown Verified 10/29/22 14:51 orphenadrine [ORPHENADRINE] AdvReac Intermediate RAPID Verified 10/29/22 14:51 HEART RATE Home Medications Medication Instructions Recorded Confirmed Last Taken Type albuterol sulfate 90 mcg/actuation 2 PO Q4-6H PRN Wheezing 01/01/21 05/15/22 Unknown History aerosol inhaler clonazepam 1 mg tablet (Klonopin) 1 tab PO TID PRN Anxiety 01/01/21 05/15/22 Unknown History fluticasone propionate 50 1 - 2 spray intranasal DAILY PRN 01/01/21 05/15/22 Unknown History mcg/actuation nasal Nasal Congestion spray,suspension hydrochlorothiazide 12.5 mg tablet 1 tab PO DAILY 01/01/21 05/15/22 Unknown History metformin 500 mg tablet,extended 1 tab PO BID 01/01/21 05/15/22 Unknown History release 24 hr venlafaxine 150 mg 2 cap PO QAM 01/01/21 05/15/22 01/05/21 History capsule,extended release 24 hr melatonin 5 mg tablet 5 mg PO BEDTIME PRN 12/05/21 05/15/22 Unknown History triamcinolone acetonide 0.1 % appl topical BID 12/05/21 05/15/22 Unknown History topical cream acetaminophen 650 mg 650 mg PO Q6H PRN fever 12/27/21 05/15/22 Unknown History tablet,extended release blood sugar diagnostic (FreeStyle #10 ea 12/27/21 05/15/22 Unknown History Lite Strips) [id number]-kqeacvkipfdsu-pivcyolw 1 cap PO Q6H PRN 12/27/21 05/15/22 Unknown History 50 mg-325 mg-40 mg capsule gabapentin 300 mg capsule 600 mg PO BEDTIME 03/11/22 05/15/22 Unknown History oxycodone-acetaminophen 7.5 mg-325 1 tab PO severe pain 03/11/22 05/15/22 Unknown History mg tablet trazodone 100 mg tablet 200 mg PO BEDTIME 03/11/22 05/15/22 Unknown History Exam Airway Mallampati Class: II TM Dist: >3cm Neck ROM: Full Heart: rrr Lungs: cta Assessment and Plan Assessment Anesthesia Assessment: Anesthesia Plan Discussed Final Anesthetic Review Family History of Problems with Anesthesia: No History of Problems with Anesthesia: No NPO: Yes ASA Class: III Final Preanesthetic Review: No Changes in Pt Med Stat, Meds/Allgs Chart Reviewed and Consent Obtained/Reviewed Patient Risk: Intermediate Procedure Risk: Intermediate Anesthetic Plan Anesthetic Plan: MAC: Disposition: Standard PACU
[2022-12-09] MEDS: Lactated Ringers 1,000 ML 100 ML IVCONT (12:48)
[2022-12-09 13:08] VITALS: BP 122/69; PULSE 64; RESP 18; TEMP 36.8; O2SAT 97
[2022-12-09 13:25] LABS: Glucose, Whole Blood 70 mg/dL (60-115)
--- NOTE | 2022-12-09 13:31 | MHC.SHP ---
Pre-Procedural Eval Section A Date of Service: 12/09/22 The patient is an INPATIENT: No The History & Physical has been completed within 30 days and I have reviewed it.: No Section B Chief Complaint: screening, const, abd pain, FH of colon cancer Relevant Family History (Specify if Yes): Yes Relevant Social History: None Present Medications: see Short Stay Collaborative assessment Medical History: Significant History (Asthma Chronic idiopathic constipation Depression Diabetes 1.5, managed as type 2 Diverticulosis Fibromyalgia Migraine) History of Previous Operations: Relevant previous surgery/procedure and date(s) (Gastric bypass status for obesity H/O colonoscopy History of pubovaginal sling Hx of bilateral breast reduction surgery Hx of oophorectomy) Allergies: Allergies Allergy/AdvReac Type Severity Reaction Status Date / Time morphine [MORPHINE] Allergy Intermediate PALPITATIONS, Verified 10/29/22 14:51 tachicardia quetiapine [Seroquel] Allergy Unknown Unknown Verified 10/29/22 14:51 orphenadrine [ORPHENADRINE] AdvReac Intermediate RAPID Verified 10/29/22 14:51 HEART RATE Review of Systems Sugical H&P ROS: Negative: Constitution, Cardiovascular and Respiratory and Yes, Specify: Gastrointestinal (abd pain, constipation) Exam Surgical H&P Exam: Normal: Heart, Normal: Lungs, Normal: Extremities and Normal: Abdomen Plan Diagnosis/Plan: Unchanged I have reviewed the history and physical and performed a pertinent physical examination on my patient. No changes have occurred unless specified. Time Spent With Patient Time: Total time managing care of this patient today ____ minutes.
--- NOTE | 2022-12-09 13:34 | PC.NURSE ---
Addendum entered by Phillip Real 12/09/22 15:35: Patient POC [address] Hastings made aware. Patient eating muffin and zoey crackers as well as drinking juice. Dr. Hastings at bedside. States no need to check patient POC prior to discharge. Original Note: patient POC was 70. patient c/o headache and feeling a little tired. states lowest poc at home has been 80. Dr. Mitchell ordered 5% dextrose 50ml piggy back. will re-assess poc
[2022-12-09 14:02] LABS: Glucose, Whole Blood 88 mg/dL (60-115)
--- NOTE | 2022-12-09 14:14 | P.OP_ITS ---
Operative Note Operative Note Date of Service: 12/09/22 Narrative: FLEXIBLE TRANSORAL UPPER GASTROINTESTINAL ENDOSCOPY WITH BIOPSIES AND COLONOSCOPY TILL CECUM WITH SNARE POLYPECTOMY Pre-op diagnosis: screening, constipation, abd pain, anemia, hx of gastric bypass surgery Post-op diagnosis:?gastric bypass surgery status, gastritis, colon polyps, diverticulosis, hemorrhoids Endoscopist:? Ángel Lopez MD Anesthesia:?MAC UPPER ENDOSCOPY Consent: Indications for the procedure and potential complications of bleeding, perforation, reaction to medications and missed diagnosis were discussed with the patient and informed consent was obtained. Instrument: Olympus GIF H 190 mid size upper endoscope Monitoring: Vital signs and clinical assessment, continuous EKG monitoring, Pulse oximetry, Carbon Dioxide monitoring and blood pressure monitoring were done throughout the procedure. Procedure: The patient was placed in the left lateral decubitis position and pre-procedure medications were administered and a bite block was placed. The endoscope was inserted into the mouth and advanced under direct vision to the third part of duodenum. A careful inspection was made as the upper endoscope was withdrawn including a retroflexed examination of the proximal stomach; Findings and interventions are described below. Findings: Larynx: Normal Esophagus: GE junction at 35 cms. No esophagitis or Cruz's. Stomach: Mild gastric erythema in the gastric pouch. Biopsies were obtained. Normal anastomosis at 38 cms with some anca and a suture. The suture was removed with the help of a biopsy forcep. Grade 2 flap valve on retroflexed examination of the cardia. Duodenum: Normal bulb and descending duodenum Intervention: Biopsies as noted above COLONOSCOPY PROCEDURE NOTE Consent: Indications for the procedure and potential complications of bleeding, perforation, reaction to medications and missed diagnosis were discussed with the patient and informed consent was obtained. Instrument: Olympus PCF H 190 L variable stiffness pediatric colonoscope Monitoring: Vital signs and clinical assessment, intermittent blood pressure monitoring, continuous EKG monitoring, Pulse oximetry and Carbon Dioxide monitoring were done throughout the procedure. Colon withdrawl time was 22 minutes. Procedure: The patient was placed in the left lateral decubitis position and pre-procedure medications were administered. After a digital rectal examination of the ano-rectum, the video colonoscope was inserted into the rectum and advanced through the colon to the cecum. The colonoscope was slowly withdrawn in a retrograde panoramic fashion and the colon mucosa was carefully examined including a retroflexed view of the rectum. Findings and interventions are described below. Procedure Difficulty: : Colon was long and tortuous, there was spasm and recurrent loop formation. LLQ pressure was applied to intubate the cecum Findings: Terminal Ileum: Not evaluated Cecum: Normal Ascending Colon: A 10 mm sessile polyp in the proximal AC - removed with a hot snare Transverse Colon: Two 15 to 18 mm sessile polyps - removed with a hot snare Descending Colon: Normal Sigmoid Colon: Moderate diverticulosis Rectum: Normal Ano-rectum: Small internal hemorrhoids Colon preparation: Good after some irrigation Impression and Post Procedure Diagnosis: Endoscopy Findings: STOMACH: Mild gastric erythema in the gastric pouch. Biopsies were obtained. Normal anastomosis at 38 cms with some anca and a suture. The suture was removed with the help of a biopsy forcep. Colonoscopy Findings: Three medium sized polyps removed Moderate diverticulosis seen in the sigmoid colon Small hemorrhoids on retroflexed exam. Plan: Await pathology results Patient has an appointment on 12/24/22 in the [facility] with Ernestina Garza FNP- [facility]. Repeat Colonoscopy interval based on path results - in 3 years if polyps are adenomatous and 10 years if polyps are hyperplastic. Above findings were reviewed with the patient and colon polyps and diverticulosis handouts were given in the discharge area BIOPSIES SHOWED: A.? Small bowel, biopsy:? Small intestinal mucosa within normal limits. B.? Stomach, polyps, biopsy:? Oxyntic mucosa with mild chronic inactive inflammation; no Helicobacter organisms seen. C.? Colon, ascending, polypectomy:? Fragments of sessile serrated lesion/polyp; negative for cytologic dysplasia. D.? Colon, transverse, polypectomies (2):? Fragments of tubular adenomata; negative for high-grade dysplasia or carcinoma.
[2022-12-09 15:09] VITALS: BP 145/81; PULSE 67; RESP 16; TEMP 36.1; O2SAT 100
[2022-12-09 15:24] VITALS: BP 134/60; PULSE 62; RESP 14; O2SAT 97
[2022-12-09 15:29] LABS: Glucose, Whole Blood 63 mg/dL (60-115)
[2022-12-09 15:39] VITALS: BP 155/70; PULSE 78; RESP 13; O2SAT 98
[2022-12-09 15:54] VITALS: BP 119/60; PULSE 62; RESP 14; TEMP 36.1; O2SAT 98
== END 2022-12-09 16:00 | disposition home or self-care (01) ==
PROVIDERS: PCP Internal Medicine; Visit Provider Internal Medicine Gastroenterology
PROC: (CPT 45385; principal; 2022-12-09 13:50)
DX: K59.04 Chronic idiopathic constipation (principal); D12.2 Benign neoplasm of ascending colon; D12.3 Benign neoplasm of transverse colon; K57.30 Diverticulosis of large intestine without perforation or abscess without bleeding; K64.8 Other hemorrhoids; K29.70 Gastritis, unspecified, without bleeding; Z98.84 Bariatric surgery status; R10.13 Epigastric pain; E11.9 Type 2 diabetes mellitus without complications; M79.7 Fibromyalgia; Z79.891 Long term (current) use of opiate analgesic; Z79.899 Other long term (current) drug therapy; Z79.84 Long term (current) use of oral hypoglycemic drugs
CPT/HCPCS: 45385; 43239; 82947; 88305; 88342

== ENCOUNTER → 2022-12-09 11:02 | Outpatient (BNV) | payer MEDICAID, SELFPAY | PROVIDERS: PCP Internal Medicine; Visit Provider Internal Medicine Gastroenterology | DX: Z12.11 Encounter for screening for malignant neoplasm of colon (principal); K59.04 Chronic idiopathic constipation; Z98.84 Bariatric surgery status; K29.70 Gastritis, unspecified, without bleeding; K57.30 Diverticulosis of large intestine without perforation or abscess without bleeding; K64.8 Other hemorrhoids; D12.2 Benign neoplasm of ascending colon; D12.3 Benign neoplasm of transverse colon | CPT/HCPCS: 43239; 45385 ==

== ENCOUNTER 2022-12-10 23:15 | Inpatient (IN) | payer OTHER, MEDICAID, SELFPAY ==
[2022-12-10 23:20] VITALS: BP 146/77; BP 163/90; PULSE 68; PULSE 80; RESP 20; TEMP 36.8; O2SAT 100; O2SAT 98; BMI 32.8
--- NOTE | 2022-12-10 23:56 | PC.NURSE ---
Poison Control contacted. Per Poison Control, to obtain labs and EKG and once completed, to monitor for 6 hours.
--- NOTE | 2022-12-11 | ECG_ITS ---
Test Reason : OD Blood Pressure : / mmHG Vent. Rate : 065 BPM Atrial Rate : 065 BPM P-R Int : 198 ms QRS Dur : 090 ms QT Int : 420 ms P-R-T Axes : 065 -02 042 degrees QTc Int : 436 ms Normal sinus rhythm Normal ECG No significant changes when compared with the previous EKG of 23 jan 2022 Referred By: Martín Shah Electronically Signed By:GEOFFREY BISHOP
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
[2022-12-11 00:56] LABS: Basophils Percent Auto 0.3 % (0-2); Eosinophils Absolute Auto 0.2 X10*3/uL (0.0-0.4); Eosinophils Percent Auto 2.3 % (0-4); Hematocrit 29.2 % (37.0-47.0); Hemoglobin 8.9 g/dl (12.0-16.0); Imm Gran Abs Auto 0.05 X10*3/uL (0.00-0.03); Imm Gran Pct Auto 0.7 % (0.0-0.4); Lymphocytes Absolute Auto 2.4 X10*3/uL (1.2-4.9); Lymphocytes Percent Auto 35.2 % (20-40); MANUAL DIFF FLAG NO; Mean Corpuscular HGB Conc 30.5 g/dl (31.0-35.0); Mean Corpuscular Hemoglobin 24.5 pg (27.0-33.0); Mean Corpuscular Volume 80.2 fL (80.0-98.0); Mean Platelet Volume 9.5 fL (9.4-12.3); Monocytes Absolute Auto 0.8 X10*3/uL (0.1-1.2); Monocytes Percent Auto 11.3 % (2-11); Neutrophils Absolute Auto 3.5 x10*3/uL (2.0-8.3); Neutrophils Percent Auto 50.2 % (45-73); Platelet Count 238 X10*3/uL (160-400); Red Blood Count 3.64 X10*6/uL (4.20-5.50); Red Cell Distribution Width 16.6 % (11.0-16.0); White Blood Count 6.9 X10*3/uL (4.8-10.8)
--- NOTE | 2022-12-11 00:58 | MHC.EDTECH ---
Patient was changed into hospital attire, Patient was placed on the monitoring coordinator EKG was taken and labs were drawn and sent to lab. Security at bedside,belongings list done, All valuables locked up Security counted 190.00 dollars Luna,this tech witnessed and is in purse and locked in locker 8 in the pod. RN aware
[2022-12-11 01:09] VITALS: BP 137/70; PULSE 61; RESP 16; TEMP 36.4; O2SAT 99
--- NOTE | 2022-12-11 01:10 | MHC.EDTECH ---
Patient was assisted to commode,Patient had a xlg amount of soft brown stool, Urine was obtained and sent to lab. Patient was cleaned and placed back into [facility]. 1-1 sitter at bedside for safety
[2022-12-11 01:15] LABS: Acetaminophen LAB < 17 mcg/mL (<30); Alanine Aminotransferase 19 U/L (0-31); Albumin Level 3.6 g/dL (3.5-5.0); Alkaline Phosphatase 67 U/L (39-117); Anion Gap 15 (12-20); Aspartate Amino Transferase 31 U/L (5-31); Bilirubin Total 0.1 mg/dL (0.0-1.0); Blood Urea Nitrogen 16 mg/dL (9-16); Calcium 8.6 mg/dL (8.4-10.2); Carbon Dioxide 25 mmol/L (22-29); Chloride 107 mmol/L (96-108); Creatinine Clr Calc Pharmacy 90.5; Estimated Glomerular Filt Rate > 60; Ethanol < 10 mg/dL; Glucose Random 88 mg/dL (60-115); Potassium 4.9 mmol/L (3.3-5.1); Salicylate < 5.0 mg/dL (15-30); Sodium 142 mmol/L (135-145); Total Protein 6.6 g/dL (6.5-8.0)
[2022-12-11 01:31] LABS: Amphetamine Screen Urine Not Detected (Not Detect); Barbiturates, Urine Not Detected (Not Detect); Benzodiazepines Screen Urine POSITIVE (Not Detect); Cannabinoid Screen Urine Not Detected (Not Detect); Cocaine Screen Urine Not Detected (Not Detect); Fentanyl, urine Not Detected (Not Detect); Opiate Screen Urine Not Detected (Not Detect); Phencyclidine Screen Urine Not Detected (Not Detect)
[2022-12-11 02:08] VITALS: BP 144/67; PULSE 63; RESP 16; TEMP 36.4; O2SAT 98
--- NOTE | 2022-12-11 02:59 | PC.NURSE ---
hitesh from care team informed this rn that pt admits to both SI and HI. pt reports HI towards would not elaborate on plan. per careteam staff pt reports seeing imaginary 7 year old girl in room
--- NOTE | 2022-12-11 03:39 | MHC.EDTECH ---
Patient told this race and sports book writer that she couldn't sleep. RN aware. She was offered the TV remote which she accepted and is currently laying in bed 6, watching TV
--- NOTE | 2022-12-11 04:02 | MHC.EDTECH ---
T/W went into pt's room to get the remote and the patient was sleeping.
[2022-12-11 06:00] VITALS: BP 119/63; PULSE 64; TEMP 36.1; O2SAT 97
--- NOTE | 2022-12-11 06:08 | PC.NURSE ---
Patient was up most part of the night, watching TV in room and common area, behavior non concerning, poison control cleared patient, EKG negative, med rec completed/pending provider's approval, asymptomatic of Benzo withdrawal at this time, disposition per care team section 12 inpatient bed search, labs completed/resulted, VSS, will continue to monitor.
[2022-12-11 06:49] LABS: COVID-19 Test Negative (Negative); IDNOW Serial# BCCEAD1C
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
[2022-12-11 10:37] LABS: Appearance Urine Clear; Color Urine Yellow; Glucose Urine UA Negative (Negative); Leukocyte Esterase Urine Small (1+) (Negative); Nitrite Urine Negative (Negative); Specific Gravity - Urine <= 1.005 (1.005-1.025); UMIC TRIGGER UACC YES; Urine Blood Negative (Negative); Urine Ketones Negative (Negative); Urine Protein Negative (Neg-Trace)
[2022-12-11 10:47] LABS: Bacteria Urine None Seen (None Seen); Hyaline Casts Urine 0-2 /LPF (0-2); RBC Urine 0-2 /HPF (0-2); Squamous Epithelial Cell Urine 0-2 /HPF (0-2); UACC Culture Trigger YES; WBC Urine 0-5 /HPF (0-5)
[2022-12-11] MEDS: Ondansetron ODT 4 MG TAB.RAPDIS TRANSLINGU (14:08)
--- NOTE | 2022-12-11 14:09 | PC.NURSE ---
Patient signed a 3 day on admission, provider notified
[2022-12-11 14:11] VITALS: BMI 32.0
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
[2022-12-11 20:30] VITALS: BP 150/68; PULSE 76; RESP 16; TEMP 36.3; O2SAT 98
[2022-12-11] MEDS: oxyCODONE HCl Immed Release 5 MG TABLET 10 MG PO (21:20)
[2022-12-11] MEDS: clonazePAM 1 MG TABLET PO (21:20)
[2022-12-11] MEDS: metFORMIN HCl ER 500 MG TAB.ER.24H PO (21:20)
[2022-12-11] MEDS: traZODone HCL 100 MG TABLET 300 MG PO (21:20)
[2022-12-11 22:44] LABS: Glucose, Whole Blood 110 mg/dL (60-115)
[2022-12-11] MEDS: Albuterol Sulfate 90 MCG 8 GM INHALER 2 PUFF INHALE (22:50)
[2022-12-12 07:00] VITALS: BMI 32.2
[2022-12-12 08:15] VITALS: BP 123/58; PULSE 85; RESP 18; TEMP 36.3; O2SAT 100
[2022-12-12] MEDS: clonazePAM 1 MG TABLET PO ×2 (08:25→21:25)
[2022-12-12] MEDS: Ferrous Sulfate 324 MG TABLET.DR PO (08:25)
[2022-12-12] MEDS: Albuterol Sulfate 90 MCG 8 GM INHALER 2 PUFF INHALE ×2 (08:25→21:25)
[2022-12-12] MEDS: Acetaminophen 325 MG TABLET 650 MG PO (08:25)
[2022-12-12] MEDS: metFORMIN HCl ER 500 MG TAB.ER.24H PO ×2 (08:26→21:37)
[2022-12-12] MEDS: Lidocaine 4 % Patch ADH..PATCH 1 PATCH TRANSDERMA (08:28)
[2022-12-12 09:15] LABS: MANUAL DIFF FLAG NO
[2022-12-12 09:24] LABS: Basophils Percent Auto 0.3 % (0-2); Eosinophils Absolute Auto 0.2 X10*3/uL (0.0-0.4); Eosinophils Percent Auto 2.3 % (0-4); Hematocrit 32.1 % (37.0-47.0); Hemoglobin 9.6 g/dl (12.0-16.0); Imm Gran Abs Auto 0.05 X10*3/uL (0.00-0.03); Imm Gran Pct Auto 0.7 % (0.0-0.4); Lymphocytes Absolute Auto 1.7 X10*3/uL (1.2-4.9); Lymphocytes Percent Auto 24.2 % (20-40); Mean Corpuscular HGB Conc 29.9 g/dl (31.0-35.0); Mean Corpuscular Hemoglobin 24.4 pg (27.0-33.0); Mean Corpuscular Volume 81.7 fL (80.0-98.0); Mean Platelet Volume 10.2 fL (9.4-12.3); Monocytes Absolute Auto 0.5 X10*3/uL (0.1-1.2); Monocytes Percent Auto 7.5 % (2-11); Neutrophils Absolute Auto 4.5 x10*3/uL (2.0-8.3); Platelet Count 276 X10*3/uL (160-400); Red Blood Count 3.93 X10*6/uL (4.20-5.50); Red Cell Distribution Width 16.7 % (11.0-16.0); White Blood Count 6.9 X10*3/uL (4.8-10.8)
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
[2022-12-12] MEDS: oxyCODONE HCl Immed Release 5 MG TABLET 10 MG PO ×2 (09:37→21:25)
[2022-12-12 09:41] LABS: Estimated Average Glucose 117 mg/dL; Hemoglobin A1c % 5.7 %
[2022-12-12 09:48] LABS: Alanine Aminotransferase 19 U/L (0-31); Albumin Level 3.9 g/dL (3.5-5.0); Alkaline Phosphatase 71 U/L (39-117); Anion Gap 15 (12-20); Aspartate Amino Transferase 19 U/L (5-31); Bilirubin Total 0.2 mg/dL (0.0-1.0); Blood Urea Nitrogen 19 mg/dL (9-16); Calcium 8.8 mg/dL (8.4-10.2); Carbon Dioxide 25 mmol/L (22-29); Chloride 106 mmol/L (96-108); Cholesterol 240 mg/dL; Creatinine Clr Calc Pharmacy 79.7; Estimated Glomerular Filt Rate > 60; Glucose Fasting 178 mg/dL (60-99); HDL Cholesterol 104 mg/dL; LDL Cholesterol Calculated 109 mg/dl; Potassium 4.6 mmol/L (3.3-5.1); Sodium 141 mmol/L (135-145); Triglycerides 135 mg/dL
[2022-12-12 10:13] LABS: Folate 15.4 ng/mL (> or = 4.0); Vitamin B12 267 pg/mL (200-900)
[2022-12-12] MEDS: Omeprazole 20 MG CAPSULE.DR PO (15:22)
[2022-12-12] MEDS: Venlafaxine HCl ER 75 MG CAP.ER.24H PO (15:22)
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
[2022-12-12] MEDS: hydrOXYzine HCL 25 MG TABLET PO (17:22)
[2022-12-12 21:07] VITALS: BP 159/78; PULSE 73; RESP 18; TEMP 36.9; O2SAT 95
[2022-12-12] MEDS: Milk of Magnesia 30 ML ORAL.SUSP PO (21:24)
[2022-12-12] MEDS: traZODone HCL 100 MG TABLET 300 MG PO (21:25)
[2022-12-12] MEDS: ARIPiprazole 10 MG TABLET PO (21:25)
[2022-12-13 08:00] VITALS: BP 135/63; PULSE 73; RESP 18; TEMP 36.8; O2SAT 94
[2022-12-13] MEDS: Omeprazole 20 MG CAPSULE.DR PO ×2 (08:38→15:48)
[2022-12-13] MEDS: Ferrous Sulfate 324 MG TABLET.DR PO (08:39)
[2022-12-13] MEDS: clonazePAM 1 MG TABLET PO ×2 (08:39→21:53)
[2022-12-13] MEDS: Venlafaxine HCl ER 75 MG CAP.ER.24H PO (08:39)
[2022-12-13] MEDS: metFORMIN HCl ER 500 MG TAB.ER.24H PO ×2 (08:39→21:53)
[2022-12-13] MEDS: Milk of Magnesia 30 ML ORAL.SUSP PO (13:21)
[2022-12-13] MEDS: oxyCODONE HCl Immed Release 5 MG TABLET 10 MG PO (14:21)
[2022-12-13] MEDS: Acetaminophen 325 MG TABLET 650 MG PO (14:21)
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
[2022-12-13 21:35] VITALS: BP 143/62; PULSE 83; RESP 16; TEMP 36.4; O2SAT 96
[2022-12-13] MEDS: traZODone HCL 100 MG TABLET 300 MG PO (21:53)
[2022-12-13] MEDS: ARIPiprazole 10 MG TABLET PO (21:53)
[2022-12-14] MEDS: hydrOXYzine HCL 25 MG TABLET PO ×2 (02:00→16:23)
[2022-12-14 08:15] VITALS: BP 128/60; PULSE 73; RESP 18; TEMP 36.6; O2SAT 94
[2022-12-14] MEDS: Omeprazole 20 MG CAPSULE.DR PO ×2 (08:43→16:03)
[2022-12-14] MEDS: Venlafaxine HCl ER 75 MG CAP.ER.24H PO (08:43)
[2022-12-14] MEDS: clonazePAM 1 MG TABLET PO ×2 (08:43→21:52)
[2022-12-14] MEDS: metFORMIN HCl ER 500 MG TAB.ER.24H PO ×2 (08:43→21:52)
[2022-12-14] MEDS: Ferrous Sulfate 324 MG TABLET.DR PO (08:44)
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
[2022-12-14 21:41] VITALS: BP 136/84; PULSE 80; RESP 16; TEMP 36.3; O2SAT 97
[2022-12-14] MEDS: traZODone HCL 100 MG TABLET 300 MG PO (21:51)
[2022-12-14] MEDS: oxyCODONE HCl Immed Release 5 MG TABLET 10 MG PO (21:52)
[2022-12-14] MEDS: ARIPiprazole 10 MG TABLET PO (21:52)
[2022-12-14] MEDS: Acetaminophen 325 MG TABLET 650 MG PO (21:53)
[2022-12-14] MEDS: Milk of Magnesia 30 ML ORAL.SUSP PO (21:57)
[2022-12-15 08:00] VITALS: BP 127/60; PULSE 77; RESP 18; TEMP 36.4; O2SAT 97
[2022-12-15 08:16] LABS: Glucose, Whole Blood 231 mg/dL (60-115)
[2022-12-15] MEDS: clonazePAM 1 MG TABLET PO ×2 (08:58→20:49)
[2022-12-15] MEDS: Omeprazole 20 MG CAPSULE.DR PO ×2 (08:58→16:57)
[2022-12-15] MEDS: Ferrous Sulfate 324 MG TABLET.DR PO (08:59)
[2022-12-15] MEDS: metFORMIN HCl ER 500 MG TAB.ER.24H PO ×2 (08:59→20:48)
[2022-12-15] MEDS: Venlafaxine HCl ER 75 MG CAP.ER.24H PO (08:59)
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
[2022-12-15] MEDS: Lactulose 20 GM/30 ML SOLUTION 30 GM PO (11:22)
[2022-12-15] MEDS: Milk of Magnesia 30 ML ORAL.SUSP PO (16:53)
[2022-12-15 20:10] VITALS: BP 144/66; PULSE 87; RESP 18; TEMP 36.6; O2SAT 98
[2022-12-15] MEDS: traZODone HCL 100 MG TABLET 300 MG PO (20:45)
[2022-12-15] MEDS: oxyCODONE HCl Immed Release 5 MG TABLET 10 MG PO (20:46)
[2022-12-15] MEDS: ARIPiprazole 10 MG TABLET PO (20:47)
[2022-12-16] MEDS: Omeprazole 20 MG CAPSULE.DR PO ×2 (06:50→16:14)
[2022-12-16 08:02] LABS: Glucose, Whole Blood 187 mg/dL (60-115)
[2022-12-16] MEDS: clonazePAM 1 MG TABLET PO (08:17)
[2022-12-16] MEDS: Ferrous Sulfate 324 MG TABLET.DR PO (08:17)
[2022-12-16] MEDS: Venlafaxine HCl ER 75 MG CAP.ER.24H PO (08:17)
[2022-12-16] MEDS: Lidocaine 4 % Patch ADH..PATCH 1 PATCH TRANSDERMA (08:17)
[2022-12-16] MEDS: Lactulose 20 GM/30 ML SOLUTION 30 GM PO (08:17)
[2022-12-16] MEDS: metFORMIN HCl ER 500 MG TAB.ER.24H PO ×2 (08:17→21:46)
[2022-12-16 08:25] VITALS: BP 136/64; PULSE 79; RESP 18; TEMP 36.4; O2SAT 95
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
[2022-12-16] MEDS: oxyCODONE HCl Immed Release 5 MG TABLET 10 MG PO (14:30)
[2022-12-16 20:00] VITALS: BP 130/82; PULSE 78; RESP 16; TEMP 36.6; O2SAT 99
[2022-12-16] MEDS: traZODone HCL 100 MG TABLET 300 MG PO (21:46)
[2022-12-16] MEDS: ARIPiprazole 10 MG TABLET PO (21:47)
[2022-12-16] MEDS: hydrOXYzine HCL 25 MG TABLET PO (21:47)
[2022-12-17] MEDS: Omeprazole 20 MG CAPSULE.DR PO (06:33)
[2022-12-17 08:20] LABS: Glucose, Whole Blood 174 mg/dL (60-115)
[2022-12-17 08:34] VITALS: BP 123/61; PULSE 100; RESP 18; TEMP 36.4; O2SAT 100
[2022-12-17] MEDS: metFORMIN HCl ER 500 MG TAB.ER.24H PO (08:36)
[2022-12-17] MEDS: Venlafaxine HCl ER 37.5 MG CAP.ER.24H 112.5 MG PO (08:36)
[2022-12-17] MEDS: Lidocaine 4 % Patch ADH..PATCH 1 PATCH TRANSDERMA (08:36)
[2022-12-17] MEDS: Ferrous Sulfate 324 MG TABLET.DR PO (08:36)
[2022-12-17] MEDS: Lactulose 20 GM/30 ML SOLUTION 30 GM PO (08:36)
== END 2022-12-17 12:03 | disposition home or self-care (01) | DRG 751 ==
LOC: HO.ED 12-11 09:18 → HO.PADLT16 12-11 12:29
PROVIDERS: Internal Medicine; Admitting Provider Social Worker; Emergency Provider Emergency Medicine; PCP Internal Medicine; Visit Provider Psychiatry & Neurology Psychiatry
DX: F33.1 Major depressive disorder, recurrent, moderate (principal); R45.851 Suicidal ideations; R45.850 Homicidal ideations; K59.04 Chronic idiopathic constipation; E13.9 Other specified diabetes mellitus without complications; M79.7 Fibromyalgia; Z20.822 Contact with and (suspected) exposure to COVID-19; Z98.84 Bariatric surgery status; Z79.84 Long term (current) use of oral hypoglycemic drugs; Z79.899 Other long term (current) drug therapy
CPT/HCPCS: 36415; 80053; 80061; 80143; 80179; 80307; 81001; 82607; 82746; 82947; 83036; 84443; 85025; 87086; 87635; 93005; 99285; S9485

== ENCOUNTER → 2022-12-11 00:40 | Outpatient (BNV) | payer MEDICAID, SELFPAY | PROVIDERS: Admitting Provider Social Worker; Emergency Provider Emergency Medicine; PCP Internal Medicine; Visit Provider Internal Medicine | DX: F33.1 Major depressive disorder, recurrent, moderate (principal) | CPT/HCPCS: 93010 ==

== ENCOUNTER → 2022-12-11 12:19 | Outpatient (BNV) | payer MEDICAID, SELFPAY | PROVIDERS: Admitting Provider Social Worker; Emergency Provider Emergency Medicine; PCP Internal Medicine; Visit Provider Internal Medicine Gastroenterology | DX: K59.04 Chronic idiopathic constipation (principal); R11.2 Nausea with vomiting, unspecified | CPT/HCPCS: 99222; 99232 ==

== ENCOUNTER → 2022-12-11 12:19 | Outpatient (BNV) | payer OTHER, SELFPAY | PROVIDERS: Admitting Provider Social Worker; Emergency Provider Emergency Medicine; PCP Internal Medicine; Visit Provider Social Worker | DX: F33.1 Major depressive disorder, recurrent, moderate (principal) | CPT/HCPCS: 99231; 99232; 99233 ==

== ENCOUNTER 2023-01-02 09:32 | Outpatient (REF) | payer MEDICAID, SELFPAY ==
--- NOTE | ~2023-01-02 | XR_ITS ---
EXAMINATION: XR LUMBOSACRAL SPINE WITH OBLIQUES CLINICAL INFORMATION: Lumbar intervertebral disc degeneration. COMPARISON: Portions of the MRI lumbar spine dated 06/06/2022; lumbar spine radiographs dated 02/18/2009. TECHNIQUE: AP, both oblique, and lateral views of the lumbar spine. Lateral view of the lumbosacral junction. FINDINGS: There is bony demineralization. Vertebral body heights are normal. At L5-S1, there is marked disc space narrowing, with a 5 mm retrolisthesis. The remaining disc spaces are well-maintained. No acute fracture or spondylolisthesis is seen. There is multi-level thoracolumbar spondylosis. The posterior elements are intact. There is facet arthropathy at L5-S1. No spondylolysis defect is seen on the oblique views. Pelvic phleboliths and surgical clips are noted. XR/XR lumbar spine 4V min IMPRESSION: 1. At L5-S1, there is marked degenerative disc disease and bilateral facet arthropathy. 2. There is multi-level thoracolumbar spondylosis.
== END 2023-01-02 09:33 | disposition home or self-care (01) ==
LOC: HO.XRAY 09:32
PROVIDERS: PCP Internal Medicine; Visit Provider Nurse Practitioner Family
DX: M96.1 Postlaminectomy syndrome, not elsewhere classified (principal); G89.4 Chronic pain syndrome; M51.36 Other intervertebral disc degeneration, lumbar region; M54.16 Radiculopathy, lumbar region
CPT/HCPCS: 72110; 99204

== ENCOUNTER 2023-01-02 09:35 | Outpatient (AMB) | payer MEDICAID, SELFPAY ==
--- NOTE | 2023-01-02 09:33 | A.OFFVIS_ITS ---
Intake Vital Signs 01/02/23 09:38 Height 5 ft 5 in Weight 203 lb BMI 33.8 BP 137/84 Blood Pressure Location Rt brachial Position Sitting Pulse 75 Pulse Source Pulse Oximeter Pulse Oximetry (%) 95 Oxygen Delivery Method Room Air Intake Visit Reasons: Chronic Pain - Procedures Only Intake Note: Pain today 8/10. 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 Accompanied by: Self / Same As Patient Allergies morphine [MORPHINE] Allergy (Intermediate, Verified 01/02/23 09:38) PALPITATIONS, tachicardia quetiapine [Seroquel] Allergy (Unknown, Verified 01/02/23 09:38) Unknown orphenadrine [ORPHENADRINE] Adverse Reaction (Intermediate, Verified 01/02/23 09:38) RAPID HEART RATE HPI Chronic Pain - Procedures Only HPI Details Patient is a pleasant 62 years old female with prior history of fibromyalgia, lumbar degenerative disc disease, history of ACDF at C6-C7, chronic pain syndrome, osteoarthritis, depression, anxiety, migraine, presents today with widespread body pain, lower back, bilateral legs and hands pain. Her main concern is low back pain with radiation to both legs and feet posteriorly with numbness and tingling but no weakness. Denies any recent trauma, injury or falls. She has been followed by [facility] in the past for injections. Pain affects her daily activities, functioning, mobility, sleep, mood and quality of life. Pain is worse in the morning with intensity rated at 8-10/10 and average pain in the past 2 weeks rated at 8/10. Her diabetes is well managed with most recent A1C 5.7. She lives alone. Denies any fever, weight loss, abdominal or groin pain, foot drop, bladder or bowel incontinence or saddle anesthesia. Location Lower back that radiates down bilateral legs Duration Chronic pain syndrome, multiple pain generators, many years Characteristics of symptom or complaint Aching, sharp, pressure, stabbing, numbness and tingling, shooting Aggravating or associated factors Prolonged walking, sitting, standing, bending, stairs, changing positions Relieving factors Oxycodone, activity modifications, goes to ER frequently for pain Treatment PT- made pain worse, shoulder cortisone injections PFSH Medical History Anxiety Asthma Chronic idiopathic constipation Depression Diabetes 1.5, managed as type 2 Diverticulosis Fibromyalgia Migraine Surgical History Gastric bypass status for obesity H/O colonoscopy History of pubovaginal sling Hx of bilateral breast reduction surgery Hx of oophorectomy Family History Mother Colon cancer Social History Household Members: Spouse and Children Household Members Other:: lives alone Housing: Apartment Do you presently have visiting nurse or other home services: No Alcohol intake: unknown Patient Tobacco Use Status: Never used Tobacco service: No Current occupational status: disabled Sexual orientation: Straight/Heterosexual Gender identity: Female Review of Systems Const All systems reviewed & are unremarkable except as noted in HPI and below Physical Exam Vital Signs: Last Vital Signs Pulse 75 01/02/23 09:38 BP 137/84 01/02/23 09:38 Pulse Ox 95 01/02/23 09:38 Oxygen Delivery Method Room Air 01/02/23 09:38 BMI result Body Mass Index 33.8 General: Appears afebrile. Alert and oriented. Anxious. Mood and affect appropriate. Fully engaged in exam. Follows and participates in conversation appropriately. Respiratory effort is unlabored. Able to transition from sit to stand unassisted. Back/Spine/Pelvis Other: Patient is able to walk and stand on heels and tip toes with mild difficulties standing due to increase in pain. Antalgic gait. No limping. Can flex forward to 70-80 degrees and extend to 5-10 degrees before experiencing lumbar pain. Demonstrates 5/5 strength of quadriceps bilaterally as well as flexion/dorsiflexion of bilateral feet against resistance. 2+ pedal pulses bilaterally. Seated straight leg rise with dorsiflexion positive bilaterally, right>left. +1 patellar and achilles reflexes bilaterally. Facet loading test positive bilaterally. Madison sign, Tarun?s tests reproduce stretching pain in lateral hip, but not in lower back or groin. No groin pain with I/E hip rotations. Valsalva maneuver negative. Multiple tender points 16/16 upper and lower extremities and torso consistent with fibromyalgia. Cervical Spine: cervical ROM normal, Cervical spine scars present and No Cervical spine tenderness Thoracic/Lumbar Spine: thoracic and lumbar spine normal to inspection, No Thoracic/lumbar spine scar(s), Lasegue's sign positive bilateral and diffuse, pain with thoraco-lumbar ROM, paraspinal muscle tenderness, thoraco-lumbar ROM limited, No thoracic spinal tenderness, lumbar spinal tenderness (L4-S1) and straight leg raise positive bilateral at 50 degrees Pelvis: buttock tenderness bilaterally Sacroiliac joints: bilaterally tender to palpation Psych Appearance: grossly normal and well kempt Mental Status: mental status grossly normal Speech and movement: Normal speech and movement present Affect: normal affect Attitude: cooperative Thought process: Circumstantial thought process present Thought content: Normal thought content present, suicidality (none), no h allucinations and Depressive thoughts present Results Reviewed Results Reviewed: XR LUMBOSACRAL SPINE WITH OBLIQUES 01/02/23 CLINICAL INFORMATION: Lumbar intervertebral disc degeneration. COMPARISON: Portions of the MRI lumbar spine dated 06/06/2022; lumbar spine radiographs dated 02/18/2009. FINDINGS: There is bony demineralization. Vertebral body heights are normal. At L5-S1, there is marked disc space narrowing, with a 5 mm retrolisthesis. The remaining disc spaces are well-maintained. No acute fracture or spondylolisthesis is seen. There is multi-level thoracolumbar spondylosis. The posterior elements are intact. There is facet arthropathy at L5-S1. No spondylolysis defect is seen on the oblique views. Pelvic phleboliths and surgical clips are noted. IMPRESSION: 1. At L5-S1, there is marked degenerative disc disease and bilateral facet arthropathy. 2. There is multi-level thoracolumbar spondylosis. MR LUMBAR SPINE WITHOUT CONTRAST 06/06/22 CLINICAL INFORMATION: 62-year-old with lumbar radiculopathy. Self-reported low back and bilateral leg pain with pitching of the left buttock. COMPARISON: 06/26/2020 MRI. FINDINGS: CORONAL ALIGNMENT: Trace upper lumbar levocurvature noted stable in appearance. SAGITTAL ALIGNMENT: Mild retrolisthesis at L5-S1 is stable. Otherwise normal lumbar lordotic curvature. LUMBOSACRAL JUNCTION: Normal. There are 5 [id number] lumbar-type vertebral bodies. There are 5 [id number] lumbar-type vertebral bodies. VERTEBRAL BODIES: Stable vertebral body heights. No interval compression fractures. DISC SPACES AND ENDPLATES: Severe disc space height loss at L5-S1, with disc desiccation, Schmorl's nodes and spondylosis stable in appearance. Remaining lumbar intervertebral discs demonstrate normal height and signal stable in appearance, with mild anterolateral spondylosis at multiple levels between T11-T12 and L5-S1 inclusive unchanged. SPINAL CANAL: No abnormal developmental findings. BONE MARROW: Minor type I degenerative marrow signal changes are noted along the endplates at L5-S1 since the previous exam. No suspicious marrow-replacing process or other bone marrow edema. CONUS MEDULLARIS: Terminates at L1. Morphology and signal is normal. INTRADURAL NERVE ROOTS: Within normal limits. L5-S1: Retrolisthesis, diffuse disc bulging and a central extruded disc herniation with mild caudal migration stable in appearance. There is encroachment on the ventral thecal sac asymmetric to the left unchanged in appearance. There is ligamentum flavum thickening and mild left-sided facet arthropathy stable in appearance. There is narrowing of the subarticular zones, left more than right with encroachment on the traversing S1 nerve roots, left more than right stable in appearance. Mild central canal stenosis is stable. Mild foraminal narrowing is noted bilaterally stable in appearance, with disc bulging and right lateral disc osteophyte complex contacting the exiting L5 nerve roots bilaterally, right more than left unchanged in appearance. L4-L5: There is disc bulging and a superimposed small central disc protrusion stable in appearance, with mild flattening of the ventral dural sac. There is mild ligamentum flavum thickening and mild facet arthropathy without significant spinal canal stenosis. No significant neural foraminal stenosis and no neural impingement. L3-L4: Minor annular bulging and a superimposed tiny central disc protrusion are stable with mild facet arthrosis unchanged in appearance without significant canal or neural foraminal stenosis. L2-L3: Very small inferior foraminal disc protrusion noted on the left stable in appearance without neural impingement. Mild facet arthropathy noted bilaterally unchanged with no significant canal or neural foraminal stenosis. L1-L2: Central to left paramedian disc protrusion noted with mild indentation of the ventral thecal sac asymmetric to the left largely unchanged in appearance with mild ligamentum flavum thickening without significant canal or neural foraminal stenosis unchanged. Small central disc protrusion at T12-L1 stable in appearance without cord impingement or significant canal stenosis. PARAVERTEBRAL AND INCLUDED EXTRASPINAL SOFT TISSUES: The visualized paravertebral soft tissues and included retroperitoneal structures are unremarkable within the limitations of the exam. IMPRESSION: 1. Stable mild retrolisthesis at L5-S1 with stable discogenic degenerative changes and spondylosis at this level with stable disc bulging and central extruded disc herniation with stable narrowing of the subarticular zones, left more than right with encroachment on the traversing S1 nerve roots, left more than right stable in appearance. 2. Stable disc bulging and small central disc protrusion at L4-L5 without significant spinal canal or neural foraminal stenosis. 3. Stable minor disc bulging and tiny central disc protrusion at L3-L4 and stable central to left paramedian disc protrusion at L1-L2. Stable small inferior foraminal disc protrusion on the left at L2-L3 and stable small central disc protrusion at T12-L1 without cord impingement. 4. Stable multilevel bilateral facet arthropathy with stable mild central canal stenosis at L5-S1. Stable mild foraminal narrowing bilaterally at L5-S1 with disc-osteophyte complex and disc bulging contacting the exiting L5 nerve roots bilaterally, right more than left stable in appearance. Assessment & Plan Assessment & Plan (1) Post laminectomy syndrome: Code(s): M96.1 - Postlaminectomy syndrome, not elsewhere classified (2) Chronic pain syndrome: Code(s): G89.4 - Chronic pain syndrome (3) Lumbar degenerative disc disease: Code(s): M51.36 - Other intervertebral disc degeneration, lumbar region (4) Lumbar radiculopathy: Code(s): M54.16 - Radiculopathy, lumbar region Plan 1. Lumbar spine imaging was obtained after visit and noted above. 2. Discussed treatment options for both her axial low back as well as radicular pain. For ongoing radicular pain, will proceed with Bilateral L5-S1 TFESI with local and fluoroscopy. Counseled patient on vigilance in checking and treatment of hyperglycemia following steroid injection. For axial low back pain will tentatively plan for Diagnostic bilateral L3-L4 DR L5 medial branch blocks with local and fluoroscopy. If she has significant relief from the diagnostic blocks for her axial low back pain, will consider either therapeutic injections or RFA depending on her preference. Patient declined PNS trial with Sprint. The risks, consequences, alternatives, and benefits of various treatment options were discussed with the patient in great detail, including conservative management, injections and procedures. Patient is aware she will be contacted to schedule this procedure. 3. Script provided for gabapentin 300 mg at bedtime. Side effects and precautions were reviewed with patient. All questions were answered and the patient is in agreement of plan. Follow-up after injections and sooner as needed. Orders: Orders XR lumbar spine 4V min 01/02/23 M51.36 - Other intervertebral disc degeneration, lumbar region, M54.16 - Radiculopathy, lumbar region, M96.1 - Postlaminectomy syndrome, not elsewhere classified Medications: New gabapentin 300 mg PO BEDTIME 30 days 30 caps 0RF pain G89.4 - Chronic pain syndrome, M51.36 - Other intervertebral disc degeneration, lumbar region, M54.16 - Radiculopathy, lumbar region, M96.1 - Postlaminectomy syndrome, not elsewhere classified Coding Level of Care Code New Pt Level 4 (13263) Diagnoses Post laminectomy syndrome M96.1 Chronic pain syndrome G89.4 Lumbar degenerative disc disease M51.36 Lumbar radiculopathy M54.16
[2023-01-02 09:38] VITALS: BP 137/84; PULSE 75; O2SAT 95; BMI 33.8
== END 2023-01-02 10:07 | disposition home or self-care (01) ==
PROVIDERS: PCP Internal Medicine; Visit Provider Nurse Practitioner Family
DX: M96.1 Postlaminectomy syndrome, not elsewhere classified (principal); G89.4 Chronic pain syndrome; M51.36 Other intervertebral disc degeneration, lumbar region; M54.16 Radiculopathy, lumbar region
CPT/HCPCS: 99204

== ENCOUNTER 2023-01-05 11:17 | Emergency (ER) | payer MEDICAID, SELFPAY ==
[2023-01-05 11:33] VITALS: BP 137/74; PULSE 76; RESP 16; TEMP 37.4; O2SAT 94; BMI 33.9
--- NOTE | 2023-01-05 11:35 | ED_ITS ---
HPI - Back Pain/Injury General Chief Complaint: Back Pain/Injury Stated Complaint: Lower back pain Time Seen by Provider: 01/05/23 11:42 Source: patient Mode of arrival: ambulatory Limitations: no limitations History of Present Illness HPI Narrative: Patient is a 62-year-old female with history of chronic back pain presenting to the emergency department with complaint of worsening pain since yesterday. States that she had an x-ray several days ago but does not know the results. Denies any recent fall or other trauma. Denies fevers. Denies any urinary symptoms. Denies abdominal pain. Denies saddle anesthesia or bowel or bladder incontinence. Reports pain radiates down bilateral legs and has intermittent numbness/tingling to right leg. States that she recently saw pain management and was told that she would be getting injections to help manage her pain but does not have the appointment scheduled yet. She was recently prescribed both Percocets and gabapentin. She states that she is out of the Percocet and is currently taking the gabapentin. Is not taking any Tylenol. MD elicited complaint: back pain Pertinent past history: prior back pain Onset (ago): hour(s) Timing: constant Severity: severe Similar Symptoms Previously: Yes Quality: aching Radiation: left upper leg Exacerbating factors: walking Relieving factors: supine Associated symptoms: numbness Treatments prior to arrival: other medications Work related injury: No Related Data Home Medications Medication Instructions Recorded Confirmed ferrous sulfate 325 mg (65 mg 325 mg PO DAILY 12/11/22 12/11/22 iron) tablet,delayed release hydrochlorothiazide 12.5 mg tablet 12.5 mg PO DAILY 12/11/22 12/11/22 lidocaine 5 % topical patch 1 patch topical DAILY 12/11/22 12/11/22 melatonin 5 mg tablet 5 mg PO BEDTIME PRN Insomnia 12/11/22 12/11/22 metformin 500 mg tablet,extended 500 mg PO BID 12/11/22 12/11/22 release 24 hr trazodone 100 mg tablet 300 mg PO BEDTIME 12/11/22 12/11/22 oxycodone-acetaminophen 10 mg-325 0 tab PO 01/02/23 mg tablet Previous Rx's Medication Instructions Recorded albuterol sulfate 90 mcg/actuation 2 puff PO Q4-6H PRN Wheezing 30 12/16/22 aerosol inhaler days #1 inhaler aripiprazole 10 mg tablet 10 mg PO DAILY 30 days #30 tabs 12/16/22 clonazepam 1 mg tablet 1 mg PO BID 30 days #60 tabs 12/16/22 lidocaine 5 % topical cream 1 appl topical BID PRN chronic 12/16/22 pain 30 days #15 grams linaclotide 145 mcg capsule 145 mcg PO DAILY 30 days #30 caps 12/16/22 (Linzess) omeprazole 20 mg capsule,delayed 20 mg PO BID@0630,1630 30 days #60 12/16/22 release caps venlafaxine 37.5 mg 112.5 mg PO DAILY 30 days #90 caps 12/16/22 capsule,extended release 24 hr (Effexor XR) gabapentin 300 mg capsule 300 mg PO BEDTIME pain 30 days #30 01/02/23 caps Allergies Allergy/AdvReac Type Severity Reaction Status Date / Time morphine [MORPHINE] Allergy Intermediate PALPITATIONS, Verified 01/05/23 11:39 tachicardia quetiapine [Seroquel] Allergy Unknown Unknown Verified 01/05/23 11:39 orphenadrine [ORPHENADRINE] AdvReac Intermediate RAPID Verified 01/05/23 11:39 HEART RATE Review of Systems Review of Systems: As per HPI. Yes all other systems are reviewed and are negative Constitutional: Constitutional: Reports as per HPI PMF Past Medical History Medical History Anxiety Asthma Chronic idiopathic constipation Depression Diabetes 1.5, managed as type 2 Diverticulosis Fibromyalgia Migraine Surgical History Gastric bypass status for obesity H/O colonoscopy History of pubovaginal sling Hx of bilateral breast reduction surgery Hx of oophorectomy Family History Family History Mother Colon cancer Social History Social History Household Members: Spouse and Children Household Members Other:: lives alone Housing: Apartment Do you presently have visiting nurse or other home services: No Alcohol intake: unknown Patient Tobacco Use Status: Never used Tobacco Advance Directives: No Advance Directives Information Provided: No service: No Current occupational status: disabled Sexual orientation: Straight/Heterosexual Gender identity: Female Physical Exam Vital Signs: Vital Signs: Last Vital Signs Temp 99.3 F 01/05/23 11:33 Pulse 76 01/05/23 11:33 Resp 16 01/05/23 11:33 BP 137/74 01/05/23 11:33 Pulse Ox 94 01/05/23 11:33 O2 Del Method Room Air 01/05/23 11:33 BMI result Body Mass Index 33.9 Vital signs have been reviewed and appear to be correct. Blood pressure normal. Heart rate normal. Respiratory rate normal. Temperature normal. Oxygen saturation normal. Const: General: cooperative, healthy appearing and no acute distress Orientation/consciousness: oriented to person, oriented to place, oriented to time and patient oriented x3 Limitations: no limitations HEENT: Head: Yes normocephalic and Yes atraumatic Ears: external ears normal General nose exam: Normal external nose present Face and sinus: Yes face symmetric Mouth: oropharynx normal and moist mucous membranes Throat: Yes uvula midline Eyes: Pupils: Equal, round and reactive pupils present Neck: Neck: Yes normal visual inspection, Yes no meningeal signs and Yes supple Resp: Effort & Inspection: normal respiratory effort and able to speak in complete sentences Auscultation: clear to auscultation bilaterally Cardio: Rate: regular rate Rhythm: regular rhythm Heart sounds: S1 normal heart sound present and S2 normal heart sound present GI: Palpation (GI): Soft to palpation and nontender Auscultation: normoactive bowel sounds : General: Yes no CVA tenderness Back/Spine/Pelvis: Back: no CVA tenderness Cervical Spine: cervical ROM normal, Cervical spine scars present and No Cervical spine tenderness Thoracic/Lumbar Spine: thoracic and lumbar spine normal to inspection, No thoraco-lumbar ROM normal (limited), No Lasegue's sign negative, pain with thoraco-lumbar ROM, paraspinal muscle tenderness, No thoracic spinal tenderness, lumbar spinal tenderness at L4 and at L5 and straight leg raise positive bilateral Sacroiliac joints: bilaterally tender to palpation Skin: General skin exam: elasticity normal and turgor normal Neuro: General: oriented to person, oriented to place, oriented to time, patient oriented x3, gait normal, tone normal, moves all extremities, Normal light touch and pain sensation, no meningeal signs, no focal motor deficits and CN's II-XI intact bilaterally Cranial nerves: Yes Equal, round and reactive pupils present Cognition (Neuro): normal cognition Gait exam (Neuro): Normal gait present Motor exam (neuro): 5/5 motor strength present throughout Sensory Exam: Normal double simultaneous stimulation for sensation Extrem: General: Yes full ROM, Yes no pedal edema and Yes no calf tenderness Psych: Mental Status: mental status grossly normal Affect: normal affect Thought process: Normal thought process present Course Course Course Narrative: This is an RME: Additional HPI, ROS, PE not included below will be deferred to primary provider. Patient is a 62-year-old female who presents to the emergency department for evaluation of acute on chronic lower back pain. Right more than left-sided lower extremity numbness/weakness which she has experienced in the past with exacerbation of her pain. Severe pain this morning upon awakening without any precipitating injury. Denies bladder bowel dysfunction. Reporting rashes advised Percocet to manage her pain, reports approximately 1 month ago th is dosage was decreased, she has since ran out and therefore did not have it available to take today. She is awaiting an appointment with pain management to be scheduled for injections. Plan: Urinalysis, placed in [facility] pending bed availability for pain management Medical Decision Making Medical Decision Making MDM Narrative: Patient is a 62-year-old female with history of chronic back pain presenting to the emergency department with complaint of worsening pain since yesterday. On exam patient is awake, A+Ox3, VS WNL, afebrile, normal neurological exam without focal deficits, lumbar tenderness at L4/5 and bilateral SI joint tenderness,5/5 strength bilateral lower extremities, DTRs 2+ throughout, ambulating with steady gait. Given reported symptoms and physical exam findings, initial differential includes lumbar strain, lumbar radiculopathy, degenerative disc disease. No red flag findings concerning for cauda equina, cord compression, spinal epidural abscess. Discussed results of recent lumbar x-ray with patient. Do not feel repeat imaging is indicated at this time as patient denies any fall or other trauma since that x-ray. Discussed with patient that she should be communicating with pain management regarding her symptoms, advised patient use Tylenol in addition to her prescribed gabapentin as well as apply ice to the affected areas for 10-15 minutes at a time several times daily. Advised patient to contact pain management to discuss possible increase of gabapentin dose. Discussed with patient that additional prescribing of opiate pain medications will be avoided at this time. Patient verbalized understanding of and agreement with plan. Return precautions discussed at bedside. Differential Diagnosis Differential Diagnoses: The differential diagnosis associated with the presentation includes As per MDM. External Record Review External record reviewed: Inpatient record, Office record and Outpatient record Chronic Conditions Patient?s care impacted by: Diabetes Discharge Plan Discharge Clinical Impression: Chronic low back pain Patient Disposition: Home, Self-Care Instructions: Chronic Pain (ED) Additional Instructions: You were evaluated in the emergency department today for chronic back pain. Your evaluation did not show signs of medical conditions requiring emergent intervention at this time. We recommended that you use Tylenol in addition to the gabapentin you were recently prescribed. You can also apply ice to the affected area for 10-15 minutes at a time several times daily, using caution not to apply ice directly to skin. Please contact your pain management doctor to discuss possibility of increasing your gabapentin dose. Return to the emergency department if you experience worsening back pain, difficulty walking, fevers, numbness, tingling, incontinence, groin numbness or tingling, or any other concerning symptoms. Prescriptions: No Action metformin 500 mg tablet extended release 24 hr 500 mg PO BID melatonin 5 mg tablet 5 mg PO BEDTIME PRN (Reason: Insomnia) trazodone 100 mg tablet 300 mg PO BEDTIME lidocaine 5 % adhesive patch,medicated 1 patch topical DAILY Rx Instructions: ON FOR 12 HOURS THEN REMOVE FOR 12 HOURS hydrochlorothiazide 12.5 mg tablet 12.5 mg PO DAILY ferrous sulfate 325 mg (65 mg iron) tablet,delayed release (DR/EC) 325 mg PO DAILY omeprazole 20 mg Capsule,Delayed Release(Dr/Ec) 20 mg PO BID@0630,1630 30 Days Qty: 60 0RF venlafaxine [Effexor XR] 37.5 mg capsule,extended release 24hr 112.5 mg PO DAILY 30 Days Qty: 90 0RF lidocaine 5 % cream 1 appl topical BID PRN (Reason: chronic pain) 30 Days Qty: 15 0RF clonazepam 1 mg tablet 1 mg PO BID 30 Days Qty: 60 0RF albuterol sulfate 90 mcg/actuation HFA aerosol inhaler 2 puff PO Q4-6H PRN (Reason: Wheezing) 30 Days Qty: 1 0RF aripiprazole 10 mg tablet 10 mg PO DAILY 30 Days Qty: 30 0RF Linzess 145 mcg capsule 145 mcg PO DAILY 30 Days Qty: 30 0RF oxycodone-acetaminophen 10-325 mg tablet 0 tab PO gabapentin 300 mg capsule 300 mg PO BEDTIME 30 Days Qty: 30 0RF
== END 2023-01-05 12:52 | disposition home or self-care (01) ==
PROVIDERS: Emergency Provider Emergency Medicine; PCP Internal Medicine
DX: G89.29 Other chronic pain (principal); M54.50 Low back pain, unspecified
CPT/HCPCS: 99282

== ENCOUNTER 2023-01-08 13:13 | Outpatient (AMB) | payer MEDICAID, SELFPAY ==
--- NOTE | 2023-01-08 13:45 | A.OFFVIS_ITS ---
Intake Vital Signs 01/08/23 13:46 Height 5 ft 5 in Weight 195 lb 12.328 oz BMI 32.6 BP 109/68 Blood Pressure Location Lt brachial Position Sitting Pulse 69 Intake Visit Reasons: follow up Intake Note: Lelo presents in office as a est.patient for a f/u PT CC: pt reports having no concerns pt denies any other GI Issues Anesthesiologist Attending Required: No Accompanied by: Self / Same As Patient Allergies morphine [MORPHINE] Allergy (Intermediate, Verified 01/08/23 13:45) PALPITATIONS, tachicardia quetiapine [Seroquel] Allergy (Unknown, Verified 01/08/23 13:45) Unknown orphenadrine [ORPHENADRINE] Adverse Reaction (Intermediate, Verified 01/08/23 13:45) RAPID HEART RATE HPI follow up HPI Details LAST VISIT Chronic idiopathic constipation Long discussion with patient about good bowel habits. Patient has not been taking any medications and she has a long history of constipation and using medication that slows down her bowel. Discussed with patient that she needs to be on permanent and daily medication therapy to help her evacuate better. Discussed with her the importance of doing so in order to prevent diverticulitis or bowel obstruction Diverticulosis History of diverticulosis patient was instructed to move her bowels better and take the medication prescribed to her. Epigastric discomfort Patient reports epigastric discomfort after meals. Patient denies acid reflux. Occasional burning without dyspepsia, dysphagia or odynophagia. Will send patient for upper endoscopy. Screen for colon cancer Discussed with patient the importance of moving her bowels. I will see her in 4 weeks before she goes for colonoscopy to make sure that her prep will be done correctly. Patient is agreeable to this plan and verbalizes understanding of instructions. She was given the opportunity to ask questions and all questions answered. ? Thank you for allowing me to participate in her care Plan Medications New linaclotide (Linzess) 145 mcg PO DAILY 30 caps 2RF Discontinued doxycycline hyclate Discontinued Reason: Patient no longer taking 100 mg PO BID 20 tabs 0RF tramadol Discontinued Reason: Patient no longer taking 50 mg PO Q6H PRN 20 tabs 0RF pain famotidine (Pepcid) Discontinued Reason: Patient no longer taking 20 mg PO BID 7 days 14 tabs 0RF bisacodyl (Dulcolax (bisacodyl)) Discontinued Reason: Patient no longer taking 10 mg (2 x 5 mg) PO BEDTIME 180 tabs 4RF prucalopride Discontinued Reason: Patient no longer taking 2 mg PO DAILY 30 days 30 tabs 3RF docusate sodium Discontinued Reason: Patient no longer taking 100 mg PO BEDTIME 90 caps 3RF K59.00 UPPER ENDOSCOPY COLONOSCOPY Findings: Larynx:? Normal Esophagus:?GE junction at 35 cms. No esophagitis or Cruz's. Stomach:?Mild gastric erythema in the gastric pouch.? Biopsies were obtained. Normal anastomosis at 38 cms with some anca and a suture. The suture was removed with the help of a biopsy forcep. Grade 2 flap valve on retroflexed examination of the cardia. Duodenum:?Normal bulb and descending duodenum Intervention:?Biopsies as noted above Findings: Terminal Ileum: Not evaluated Cecum:? Normal Ascending Colon:??A 10 mm sessile polyp in the proximal AC - removed with a hot snare Transverse Colon:??Two 15 to 18 mm sessile polyps - removed with a hot snare Descending Colon:? Normal Sigmoid Colon:??Moderate diverticulosis Rectum:??Normal Ano-rectum:??Small internal hemorrhoids Colon preparation:? Good after some irrigation Impression and Post Procedure Diagnosis: Endoscopy Findings: STOMACH: Mild gastric erythema in the gastric pouch.? Biopsies were obtained. Normal anastomosis at 38 cms with some anca and a suture. The suture was removed with the help of a biopsy forcep. Colonoscopy Findings: Three medium sized polyps removed Moderate diverticulosis seen in the sigmoid colon Small hemorrhoids on retroflexed exam. Plan: Repeat Colonoscopy interval based on path results - in 3 years if polyps are adenomatous and 10 years if polyps are hyperplastic. Above findings were reviewed with the patient and colon polyps and diverticulosis handouts were given in the discharge area BIOPSIES SHOWED: A.? Small bowel, biopsy:? Small intestinal mucosa within normal limits. B.? Stomach, polyps, biopsy:? Oxyntic mucosa with mild chronic inactive inflammation; no Helicobacter organisms seen. C.? Colon, ascending, polypectomy:? Fragments of sessile serrated lesion/polyp; negative for cytologic dysplasia. D.? Colon, transverse, polypectomies (2):? Fragments of tubular adenomata; negative for high-grade dysplasia or carcinoma. TODAY'S VISIT: Patient is here today for follow-up and to discuss colonoscopy and upper endoscopy results. Patient denies any ill effects from the prep, anesthesia procedure itself. Patient reports to be feeling better. Patient is taking Linzess every day and is moving her bowels better. Patient recently admitted with overdose to hospital. GI provider consult recommend that PPI. Patient has been taking PPI only while she was in the hospital and not after discharge.. Patient denies any dyspepsia, dysphagia or odynophagia. Denies any melena, hematochezia, unintentional weight loss or ribbon like stools. Patient reports to be feeling better. Reports that she is going to pain management to help with lower back pain. [facility] Medical History Anxiety Asthma Chronic idiopathic constipation Depression Diabetes 1.5, managed as type 2 Diverticulosis Fibromyalgia Migraine Surgical History Gastric bypass status for obesity H/O colonoscopy History of pubovaginal sling Hx of bilateral breast reduction surgery Hx of oophorectomy Family History Mother Colon cancer Social History Household Members: Spouse and Children Household Members Other:: lives alone Housing: Apartment Do you presently have visiting nurse or other home services: No Alcohol intake: unknown Patient Tobacco Use Status: Never used Tobacco service: No Current occupational status: disabled Sexual orientation: Straight/Heterosexual Gender identity: Female Review of Systems Const Denies weight gain and Denies weight loss ENT Reports no additional complaints, Denies dysphagia and Denies odynophagia Card Reports no additional complaints Resp Reports no additional complaints GI Denies abdominal pain, Denies belching, Denies melena, Denies bloating, Denies change in bowel habits, Denies dysphagia, Denies excessive flatus, Denies dyspepsia, Denies heartburn, Denies diarrhea, Denies loose stools, Denies nausea, Denies odynophagia and Denies vomiting Reports no additional complaints Musc Reports no additional complaints and Reports back pain Neuro Reports no additional complaints Psych Reports no additional complaints Endo Reports no additional complaints Physical Exam Vital Signs: Last Vital Signs Pulse 69 01/08/23 13:46 BP 109/68 01/08/23 13:46 BMI result Body Mass Index 32.6 Const General: healthy appearing, no acute distress and well developed Nutritional Appearance: obese Orientation/consciousness: patient oriented x3 HEENT Head: Yes normal to inspection, Yes normocephalic and Yes atraumatic Face and sinus: Yes normal facial exam Mouth: Normal oral and palatal mucosa present Throat: Yes posterior oropharynx normal, Yes tonsils normal and Yes uvula midline Eyes General: appearance normal, both eyes and all related structures Neck Neck: Yes normal visual inspection, Yes full ROM and Yes trachea midline Thyroid: Thyroid normal Resp Effort & Inspection: normal respiratory effort, able to speak in complete sentences, no tracheal deviation and symmetric chest movement Auscultation: clear to auscultation bilaterally Cardio Rate: regular rate Heart sounds: S1 normal heart sound present and S2 normal heart sound present GI Inspection: Yes normal to inspection, No distended and Yes obesity Palpation (GI): Soft to palpation, not firm, nontender and No hepatosplenomegaly present Auscultation: normal bowel sounds General: Yes no CVA tenderness Back/Spine/Pelvis Back: no CVA tenderness Skin General skin exam: elasticity normal, turgor normal and dry skin Neuro General: patient oriented x3 Psych Appearance: grossly normal Mental Status: mental status grossly normal Speech and movement: Normal speech and movement present Assessment & Plan Assessment & Plan (1) Chronic idiopathic constipation: Code(s): K59.04 - Chronic idiopathic constipation Plan: Continue Linzess. Patient was encouraged to increase fluid intake and activity to promote better bowel motility. (2) GERD (gastroesophageal reflux disease): Code(s): K21.9 - Gastro-esophageal reflux disease without esophagitis Qualifiers: Esophagitis presence: without esophagitis Qualified Code(s): K21.9 - Gastro-esophageal reflux disease without esophagitis Plan: Upper endoscopy showed gastric irritation no esophagitis or varices. Patient can continue taking her PPI twice a day. Avoid dietary triggers and late night snacking. Staying upright for minimum 3 hours after meals discussed with patient (3) Tubular adenoma: Code(s): D36.9 - Benign neoplasm, unspecified site Plan: Tubular adenoma found without high-grade dysplasia or carcinoma. Colonoscopy in 3 years, sooner if clinically necessary (4) Status post colonoscopy: Code(s): Z98.890 - Other specified postprocedural states Plan: Patient denies any ill effects from the prep, anesthesia or procedure itself. Reports that she is doing well. Moving her bowels well. Tubular adenoma found without high-grade dysplasia or carcinoma. Moderate diverticulosis to sigmoid colon. Patient was encouraged to keep taking her Linzess. High-fiber diet discussed with patient. List of food high in fiber given to patient. I will see her in 4 months, sooner on as needed basis. Patient is agreeable to this plan and verbalizes understanding of instructions. She was given the opportunity to ask questions and all questions answered. Thank you for allowing me to participate in her care Medications: Changed From omeprazole 20 mg PO BID@0630,1630 30 days 60 caps 0RF To omeprazole 20 mg PO BID 180 caps 3RF 90 days From linaclotide 145 mcg PO DAILY 30 days 30 caps 0RF To linaclotide (Linzess) 145 mcg PO DAILY 90 caps 3RF 90 days Coding Level of Care Code Est Pt Level 4 (58637) Diagnoses Chronic idiopathic constipation K59.04 Gastroesophageal reflux disease without esophagitis K21.9 Esophagitis presence: without esophagitis Tubular adenoma D36.9 Status post colonoscopy Z98.890 Time Spent (min) 35 Comment 20 minutes spent with patient and additional 15 minutes spent reviewing her records
[2023-01-08 13:46] VITALS: BP 109/68; PULSE 69; BMI 32.6
== END 2023-01-08 14:06 | disposition home or self-care (01) ==
PROVIDERS: PCP Internal Medicine; Visit Provider Nurse Practitioner Family
DX: K59.04 Chronic idiopathic constipation (principal); K21.9 Gastro-esophageal reflux disease without esophagitis; D36.9 Benign neoplasm, unspecified site; Z98.890 Other specified postprocedural states
CPT/HCPCS: 99214

== ENCOUNTER → 2023-01-08 13:13 | Outpatient (BNVA) | payer MEDICAID, SELFPAY | PROVIDERS: PCP Internal Medicine; Visit Provider Nurse Practitioner Family | DX: K59.04 Chronic idiopathic constipation (principal); K21.9 Gastro-esophageal reflux disease without esophagitis; K57.30 Diverticulosis of large intestine without perforation or abscess without bleeding; Z98.890 Other specified postprocedural states | CPT/HCPCS: 99212 ==

== ENCOUNTER 2023-01-28 06:14 | Outpatient (REF) | payer MEDICAID, SELFPAY ==
--- NOTE | ~2023-01-28 | FL_ITS ---
EXAMINATION: XR FLUOROSCOPY WITH IMAGES CLINICAL INFORMATION: Radiculopathy, lumbar region. COMPARISON: None available. TECHNIQUE: Fluoroscopy Supervised By: Dr. Joao Valentine. Fluoroscopy Time: 0.5 minutes. Cumulative Dose: 8.31 mGy. DAP: 0.144 Gycm2. Images: 3. FINDINGS: Images demonstrate needle placement and contrast injection adjacent to the bilateral lateral L5 vertebrae. FL/FL guidance in treatment room IMPRESSION: Fluoroscopy guidance for pain management procedure
== END 2023-01-28 06:15 | disposition home or self-care (01) ==
LOC: CF 06:14
PROVIDERS: Visit Provider Anesthesiology
DX: M54.16 Radiculopathy, lumbar region (principal); M96.1 Postlaminectomy syndrome, not elsewhere classified; M51.36 Other intervertebral disc degeneration, lumbar region; G89.4 Chronic pain syndrome
CPT/HCPCS: 64483; J3301

== ENCOUNTER 2023-01-28 09:56 | Outpatient (AMB) | payer MEDICAID, SELFPAY ==
[2023-01-28 10:03] VITALS: BP 118/82; PULSE 92; RESP 16; O2SAT 96; BMI 32.4
--- NOTE | 2023-01-28 10:03 | A.OFFVIS_ITS ---
Intake Vital Signs 01/28/23 10:03 01/28/23 10:58 Height 5 ft 5 in 5 ft 5 in Weight 195 lb 195 lb BMI 32.4 32.4 BP 118/82 126/86 Blood Pressure Location Lt brachial Lt brachial Position Sitting Sitting Respiration 16 16 Pulse 92 85 Pulse Source Pulse Oximeter Pulse Oximeter Pulse Oximetry (%) 96 96 Oxygen Delivery Method Room Air Room Air Comment pre-op post-op Intake Visit Reasons: Bilateral L5-S1 TFESI/ LOCAL Allergies morphine [MORPHINE] Allergy (Intermediate, Verified 01/28/23 10:05) PALPITATIONS, tachicardia quetiapine [Seroquel] Allergy (Unknown, Verified 01/28/23 10:05) Unknown orphenadrine [ORPHENADRINE] Adverse Reaction (Intermediate, Verified 01/28/23 10:05) RAPID HEART RATE PFSH Medical History Anxiety Asthma Chronic idiopathic constipation Depression Diabetes 1.5, managed as type 2 Diverticulosis Fibromyalgia Migraine Surgical History Gastric bypass status for obesity H/O colonoscopy History of pubovaginal sling Hx of bilateral breast reduction surgery Hx of oophorectomy Family History Mother Colon cancer Social History Household Members: Spouse and Children Household Members Other:: lives alone Housing: Apartment Do you presently have visiting nurse or other home services: No Alcohol intake: unknown Patient Tobacco Use Status: Never used Tobacco service: No Current occupational status: disabled Sexual orientation: Straight/Heterosexual Gender identity: Female Physical Exam Vital Signs: Last Vital Signs Pulse 85 01/28/23 10:58 Resp 16 01/28/23 10:58 BP 126/86 01/28/23 10:58 Pulse Ox 96 01/28/23 10:58 Oxygen Delivery Method Room Air 01/28/23 10:58 BMI result Body Mass Index 32.4 Assessment & Plan Assessment & Plan (1) Post laminectomy syndrome: Code(s): M96.1 - Postlaminectomy syndrome, not elsewhere classified (2) Chronic pain syndrome: Code(s): G89.4 - Chronic pain syndrome (3) Lumbar degenerative disc disease: Code(s): M51.36 - Other intervertebral disc degeneration, lumbar region (4) Lumbar radiculopathy: Code(s): M54.16 - Radiculopathy, lumbar region Plan: Bilateral L5- S1 Transforaminal epidural steroid injection Informed consent was thoroughly explained to the patient before the procedure. The patient came to the operating room. She was positioned prone on operating table with a pillow under her abdomen. Time-out was performed delineating correct site and side of the procedure, nature of the injection, name and date of of the patient. The lower back of the patient was prepped with ChloraPrep and draped with sterile utility towels. C-arm was brought over the operating field and sq picture of L5 vertebra was demonstrated on the screen. First the left side was chosen as the side of the injection. Tilting machine ipsilateral to the left at the level of L5 the most prominent picture of the left S1 superior articular process was obtained on the screen. At the projection of the lateral border of the SAP S1 to the skin small amount of lidocaine 1% 3-4 cc was injected to anesthetize the skin and s/q tissues. After that 5 in 22 gauge Quincke point needle was inserted through the skin wheal and was advanced to were the L5-S1 foramina on anterior posterior and oblique views intermittently.When needle tip contacted the bone the needle was deviated laterally and after that medially to advance it below the SAP and into the L5- S1 foramina. When tip of the needle entered foramina projection on AP view injection of the contrast was performed demonstrating epidural and perineural spread of the contrast. After that injection of the treatment medicine 2 cc of preservative-free lidocaine 1% mixed with Kenalog 40 mg was injected into the foramina. Injection of the contrast and injection of the treatment medicine was observed live on the screen. No intrathecal and no intravascular spread of the contrast was noted. The needle was removed and the procedure was repeated on the right side in the mirroring fashion. After completion of the procedure the needle was removed bandaid was applied the patient tolerated procedure well. Plan 1. Lumbar spine imaging was obtained after visit and noted above. 2. Discussed treatment options for both her axial low back as well as radicular pain. For ongoing radicular pain, will proceed with Bilateral L5-S1 TFESI with local and fluoroscopy. Counseled patient on vigilance in checking and treatment of hyperglycemia following steroid injection. For axial low back pain will tentatively plan for Diagnostic bilateral L3-L4 DR L5 medial branch blocks with local and fluoroscopy. If she has significant relief from the diagnostic blocks for her axial low back pain, will consider either therapeutic injections or RFA depending on her preference. Patient dec lined PNS trial with Sprint. The risks, consequences, alternatives, and benefits of various treatment options were discussed with the patient in great detail, including conservative management, injections and procedures. Patient is aware she will be contacted to schedule this procedure. 3. Script provided for gabapentin 300 mg at bedtime. Side effects and precautions were reviewed with patient. All questions were answered and the patient is in agreement of plan. Follow-up after injections and sooner as needed. Orders: Orders FL guidance in treatment room Today M54.16 - Radiculopathy, lumbar region Coding Level of Care Code Procedure Only Diagnoses Post laminectomy syndrome M96.1 Chronic pain syndrome G89.4 Lumbar degenerative disc disease M51.36 Lumbar radiculopathy M54.16
[2023-01-28 10:58] VITALS: BP 126/86; PULSE 85; RESP 16; O2SAT 96; BMI 32.4
== END 2023-01-28 10:59 | disposition home or self-care (01) ==
LOC: HO.PMCPRC 09:56
PROVIDERS: PCP Internal Medicine; Visit Provider Anesthesiology
DX: G89.4 Chronic pain syndrome (principal); M96.1 Postlaminectomy syndrome, not elsewhere classified; M54.16 Radiculopathy, lumbar region; M51.36 Other intervertebral disc degeneration, lumbar region
CPT/HCPCS: 64483

== ENCOUNTER 2023-02-27 13:18 | Outpatient (AMB) | payer MEDICAID, SELFPAY ==
[2023-02-27 13:33] VITALS: BP 140/70; PULSE 86; O2SAT 99; BMI 32.4
--- NOTE | 2023-02-27 13:33 | MHC.OFFVIS ---
Intake Vital Signs 02/27/23 13:33 Height 5 ft 5 in Weight 195 lb BMI 32.4 BP 140/70 H Blood Pressure Location Lt brachial Position Sitting Pulse 86 Pulse Source Pulse Oximeter Pulse Oximetry (%) 99 Oxygen Delivery Method Room Air Intake Visit Reasons: Bilateral L5-S1 TFESI 01/28/23/CONF Intake Note: Pain today 02/18 [employer] Required: No Accompanied by: Self / Same As Patient Allergies morphine [MORPHINE] Allergy (Intermediate, Verified 02/27/23 13:33) PALPITATIONS, tachicardia quetiapine [Seroquel] Allergy (Unknown, Verified 02/27/23 13:33) Unknown orphenadrine [ORPHENADRINE] Adverse Reaction (Intermediate, Verified 02/27/23 13:33) RAPID HEART RATE HPI HPI Comments History of Present Illness Details Patient presents today to assess response to Bilateral L5-S1 TFESI on 01/28/[address] Valentine. Patient reports 0% pain relief since injections without any improvement in her functioning, mobility or better sleep. She reports worsening low back pain with radiation to both of her legs (worse on the right) with weakness, numbness and tingling. Pain spreads across her lumbar and sacral regions. Bending, lifting and walking aggravates her pain. She continues to take gabapentin, lidocaine patches, Tylenol, and ice/heat therapy with minimal benefit. Resting and repositioning also temporarily alleviate her symptoms. Patient reports it has been painful to look after herself. Pain prevents her from doing lifting, vacuuming, standing to cook meals or wash dishes or other usual homeking chores. She is interested to proceed with Neurosurgical evaluation. We will update her lumbar spine MRIs. Patient is not interested to proceed with lumbar medial branch blocks at this time due to significant pain. Denies any fever, weight loss, abdominal or groin pain, bladder or bowel dysfunction or saddle anesthesia. Past Procedures: 01/28/23: Bilateral L5-S1 TFESI-0% pain relief PRIOR: Patient is a pleasant 62 years old female with prior history of fibromyalgia, lumbar degenerative disc disease, history of ACDF at C6-C7, chronic pain syndrome, osteoarthritis, depression, anxiety, migraine, presents today with widespread body pain, lower back, bilateral legs and hands pain. Her main concern is low back pain with radiation to both legs and feet posteriorly with numbness and tingling but no weakness. Denies any recent trauma, injury or falls. She has been followed by [facility] in the past for injections. Pain affects her daily activities, functioning, mobility, sleep, mood and quality of life. Pain is worse in the morning with intensity rated at 8-10/10 and average pain in the past 2 weeks rated at 8/10. Her diabetes is well managed with most recent A1C 5.7. She lives alone. Denies any fever, weight loss, abdominal or groin pain, foot drop, bladder or bowel incontinence or saddle anesthesia. Location Lower back that radiates down bilateral legs Duration Chronic pain syndrome, multiple pain generators, many years Characteristics of symptom or complaint Aching, sharp, pressure, stabbing, numbness and tingling, shooting Aggravating or associated factors Prolonged walking, sitting, standing, bending, stairs, changing positions Relieving factors Oxycodone, activity modifications, goes to ER frequently for pain Treatment PT- made pain worse, shoulder cortisone injections PFSH Medical History Anxiety Diverticulosis Chronic idiopathic constipation Migraine Asthma Depression Diabetes 1.5, managed as type 2 Fibromyalgia Surgical History Hx of oophorectomy Hx of bilateral breast reduction surgery H/O colonoscopy History of pubovaginal sling Gastric bypass status for obesity Family History Mother Colon cancer Social History Household Members: Spouse and Children Household Members Other:: lives alone Housing: Apartment Do you presently have visiting nurse or other home services: No Alcohol intake: unknown Patient Tobacco Use Status: Never used Tobacco service: No Current occupational status: disabled Sexual orientation: Straight/Heterosexual Gender identity: Female Review of Systems Const All systems reviewed & are unremarkable except as noted in HPI and below Physical Exam Vital Signs: Last Vital Signs Pulse 86 02/27/23 13:33 BP 140/70 H 02/27/23 13:33 Pulse Ox 99 02/27/23 13:33 Oxygen Delivery Method Room Air 02/27/23 13:33 BMI result Body Mass Index 32.4 General: Appears afebrile. Alert and oriented. Anxious. Mood and affect appropriate. Follows and participates in conversation appropriately. Respiratory effort is unlabored. No cough. Able to transition from sit to stand unassisted. Slow, antalgic gait. Does not use assistive devices. Back/Spine/Pelvis Other: Limited lumbar ROM due to pain. Lumbar flexion and extension reproduce significant pain. Seated straight leg rise with dorsiflexion positive bilaterally, right>left. +1 patellar and diminished achilles reflexes bilaterally. Multiple tender points 16/16 upper and lower extremities. Cervical Spine: cervical muscular tenderness, pain with cervical ROM, Cervical spine scars present and No Cervical spine tenderness Thoracic/Lumbar Spine: thoracic and lumbar spine normal to inspection, No Thoracic/lumbar spine scar(s), Lasegue's sign positive bilateral and diffuse, pain with thoraco-lumbar ROM, paraspinal muscle tenderness, thoraco-lumbar ROM limited, No thoracic spinal tenderness and lumbar spinal tenderness (L4-S1) Pelvis: buttock tenderness bilaterally Sacroiliac joints: bilaterally tender to palpation Results Reviewed Results Reviewed: XR LUMBOSACRAL SPINE WITH OBLIQUES 01/02/23 CLINICAL INFORMATION: Lumbar intervertebral disc degeneration. COMPARISON: Portions of the MRI lumbar spine dated 06/06/2022; lumbar spine radiographs dated 02/18/2009. FINDINGS: There is bony demineralization. Vertebral body heights are normal. At L5-S1, there is marked disc space narrowing, with a 5 mm retrolisthesis. The remaining disc spaces are well-maintained. No acute fracture or spondylolisthesis is seen. There is multi-level thoracolumbar spondylosis. The posterior elements are intact. There is facet arthropathy at L5-S1. No spondylolysis defect is seen on the oblique views. Pelvic phleboliths and surgical clips are noted. IMPRESSION: 1. At L5-S1, there is marked degenerative disc disease and bilateral facet arthropathy. 2. There is multi-level thoracolumbar spondylosis. MR LUMBAR SPINE WITHOUT CONTRAST 06/06/22 CLINICAL INFORMATION: 62-year-old with lumbar radiculopathy. Self-reported low back and bilateral leg pain with pitching of the left buttock. COMPARISON: 06/26/2020 MRI. FINDINGS: CORONAL ALIGNMENT: Trace upper lumbar levocurvature noted stable in appearance. SAGITTAL ALIGNMENT: Mild retrolisthesis at L5-S1 is stable. Otherwise normal lumbar lordotic curvature. LUMBOSACRAL JUNCTION: Normal. There are 5 [id number]-xtdvaht lumbar-type vertebral bodies. There are 5 [id number]-swhbdhc lumbar-type vertebral bodies. VERTEBRAL BODIES: Stable vertebral body heights. No interval compression fractures. DISC SPACES AND ENDPLATES: Severe disc space height loss at L5-S1, with disc desiccation, Schmorl's nodes and spondylosis stable in appearance. Remaining lumbar intervertebral discs demonstrate normal height and signal stable in appearance, with mild anterolateral spondylosis at multiple levels between T11-T12 and L5-S1 inclusive unchanged. SPINAL CANAL: No abnormal developmental findings. BONE MARROW: Minor type I degenerative marrow signal changes are noted along the endplates at L5-S1 since the previous exam. No suspicious marrow-replacing process or other bone marrow edema. CONUS MEDULLARIS: Terminates at L1. Morphology and signal is normal. INTRADURAL NERVE ROOTS: Within normal limits. L5-S1: Retrolisthesis, diffuse disc bulging and a central extruded disc herniation with mild caudal migration stable in appearance. There is encroachment on the ventral thecal sac asymmetric to the left unchanged in appearance. There is ligamentum flavum thickening and mild left-sided facet arthropathy stable in appearance. There is narrowing of the subarticular zones, left more than right with encroachment on the traversing S1 nerve roots, left more than right stable in appearance. Mild central canal stenosis is stable. Mild foraminal narrowing is noted bilaterally stable in appearance, with disc bulging and right lateral disc osteophyte complex contacting the exiting L5 nerve roots bilaterally, right more than left unchanged in appearance. L4-L5: There is disc bulging and a superimposed small central disc protrusion stable in appearance, with mild flattening of the ventral dural sac. There is mild ligamentum flavum thickening and mild facet arthropathy without significant spinal canal stenosis. No significant neural foraminal stenosis and no neural impingement. L3-L4: Minor annular bulging and a superimposed tiny central disc protrusion are stable with mild facet arthrosis unchanged in appearance without significant canal or neural foraminal stenosis. L2-L3: Very small inferior foraminal disc protrusion noted on the left stable in appearance without neural impingement. Mild facet arthropathy noted bilaterally unchanged with no significant canal or neural foraminal stenosis. L1-L2: Central to left paramedian disc protrusion noted with mild indentation of the ventral thecal sac asymmetric to the left largely unchanged in appearance with mild ligamentum flavum thickening without significant canal or neural foraminal stenosis unchanged. Small central disc protrusion at T12-L1 stable in appearance without cord impingement or significant canal stenosis. PARAVERTEBRAL AND INCLUDED EXTRASPINAL SOFT TISSUES: The visualized paravertebral soft tissues and included retroperitoneal structures are unremarkable within the limitations of the exam. IMPRESSION: 1. Stable mild retrolisthesis at L5-S1 with stable discogenic degenerative changes and spondylosis at this level with stable disc bulging and central extruded disc herniation with stable narrowing of the subarticular zones, left more than right with encroachment on the traversing S1 nerve roots, left more than right stable in appearance. 2. Stable disc bulging and small central disc protrusion at L4-L5 without significant spinal canal or neural foraminal stenosis. 3. Stable minor disc bulging and tiny central disc protrusion at L3-L4 and stable central to left paramedian disc protrusion at L1-L2. Stable small inferior foraminal disc protrusion on the left at L2-L3 and stable small central disc protrusion at T12-L1 without cord impingement. 4. Stable multilevel bilateral facet arthropathy with stable mild central canal stenosis at L5-S1. Stable mild foraminal narrowing bilaterally at L5-S1 with disc-osteophyte complex and disc bulging contacting the exiting L5 nerve roots bilaterally, right more than left stable in appearance. Assessment & Plan Assessment & Plan (1) Lumbar radiculopathy: Code(s): M54.16 - Radiculopathy, lumbar region (2) Lumbar degenerative disc disease: Code(s): M51.36 - Other intervertebral disc degeneration, lumbar region (3) Lumbar spinal stenosis: Code(s): M48.061 - Spinal stenosis, lumbar region without neurogenic claudication (4) Muscle spasm of back: Code(s): M62.830 - Muscle spasm of back (5) Chronic pain syndrome: Code(s): G89.4 - Chronic pain syndrome Plan Patient is status post Bilateral L5-S1 TFESI on 01/28/23 with no pain relief and worsening of low back pain with bilateral radiculopathy, worse on the right. Due to significant pain, she would like to pause further interventional treatments for axial low back pain at this time. We will update her MRI of the lumbar spine to assess for neural integrity and compression and follow up on previous lumbar spine MRI findings as noted above and proceed with Neurosurgical Evaluation. Scripts provided for Medrol Joe and methocarbamol for significant pain, side effects and precautions, including closely monitoring her blood sugars with oral steroid were discussed with patient. All questions were answered and the patient is in agreement of plan. Follow-up after Neurosurgical evaluation and sooner as needed. Orders: Orders MR lumbar spine wo con Today M48.061 - Spinal stenosis, lumbar region without neurogenic claudication, M51.36 - Other intervertebral disc degeneration, lumbar region, M54.16 - Radiculopathy, lumbar region Referrals Neurosurgery Referral M48.061 - Spinal stenosis, lumbar region without neurogenic claudication, M51.36 - Other intervertebral disc degeneration, lumbar region, M54.16 - Radiculopathy, lumbar region Medications: New methocarbamol 750 mg PO BID PRN 60 tabs 0RF muscle spasm M48.061 - Spinal stenosis, lumbar region without neurogenic claudication, M51.36 - Other intervertebral disc degeneration, lumbar region, M62.830 - Muscle spasm of back methylprednisolone (Medrol (Joe)) PO PER PKG DIR 21 ea 0RF lidocaine 5% ON FOR 12 HOURS THEN REMOVE FOR 12 HOURS 1 patch topical DAILY 30 ea 0RF pain M48.061 - Spinal stenosis, lumbar region without neurogenic claudication, M51.36 - Other intervertebral disc degeneration, lumbar region, M54.16 - Radiculopathy, lumbar region Coding Level of Care Code Est Pt Level 4 (52262) Diagnoses Lumbar radiculopathy M54.16 Lumbar degenerative disc disease M51.36 Lumbar spinal stenosis M48.061 Muscle spasm of back M62.830 Chronic pain syndrome G89.4
== END 2023-02-27 13:46 | disposition home or self-care (01) ==
PROVIDERS: PCP Internal Medicine; Visit Provider Nurse Practitioner Family
DX: M54.16 Radiculopathy, lumbar region (principal); M51.36 Other intervertebral disc degeneration, lumbar region; M48.061 Spinal stenosis, lumbar region without neurogenic claudication; M62.830 Muscle spasm of back; G89.4 Chronic pain syndrome
CPT/HCPCS: 99214

== ENCOUNTER → 2023-02-27 13:18 | Outpatient (BNVA) | payer MEDICAID, SELFPAY | PROVIDERS: PCP Internal Medicine; Visit Provider Nurse Practitioner Family | DX: M54.16 Radiculopathy, lumbar region (principal); M51.36 Other intervertebral disc degeneration, lumbar region; M48.061 Spinal stenosis, lumbar region without neurogenic claudication; M62.830 Muscle spasm of back; G89.4 Chronic pain syndrome | CPT/HCPCS: 99212 ==

== ENCOUNTER 2023-04-04 15:58 | Outpatient (REF) | payer MEDICAID, SELFPAY ==
--- NOTE | ~2023-04-04 | MR_ITS ---
EXAMINATION: MR LUMBAR SPINE WITHOUT CONTRAST CLINICAL INFORMATION: Spinal stenosis, lumbar region without neurogenic claudication COMPARISON: MRI lumbar spine on 06/06/2022 TECHNIQUE: MRI of the lumbar spine was obtained using routine sequences without contrast. FINDINGS: Mild retrolisthesis at L5-S1 no abnormal bone marrow signal. The vertebral body heights are preserved. Multilevel disc desiccation with moderate to severe disc height loss at L5-S1. The visualized spinal cord is normal in caliber. No abnormal cord signal. The conus medullaris terminates at L1. T12-L1: Diffuse disc bulge. No significant spinal canal or neural foraminal narrowing. L1-L2: Left paracentral disc protrusion. No significant spinal canal or foraminal narrowing. L2-L3: No significant spinal canal or neural foraminal narrowing. L3-L4: Tiny disc bulge. No significant spinal canal or neural foraminal narrowing. L4-L5: Diffuse disc bulge with superimposed central disc protrusion. Ligamentum flavum hypertrophy and bilateral facet arthrosis. No significant spinal canal or neural foraminal narrowing. The disc however abuts the exiting left L4 nerve roots. L5-S1: Diffuse disc bulge with superimposed central disc extrusion which migrates inferiorly along the S1 superior endplate, unchanged from prior. Bilateral facet arthrosis. Mild spinal canal stenosis, similar to prior. Mild bilateral neural foraminal narrowing with the disc abutting the exiting L5 nerve roots bilaterally. The paravertebral soft tissues are unremarkable. MR/MR lumbar spine wo con IMPRESSION: 1. Multilevel lumbar spondylosis as described above which has not significantly progressed compared to MRI from 06/06/2022. 2. At L4-L5, the disc abuts the exiting left L4 nerve root. 3. At L5-S1, there is a central disc extrusion causing mild spinal canal stenosis and mild bilateral neural foraminal narrowing with the disc abutting the exiting L5 nerve roots bilaterally.
== END 2023-04-04 15:59 | disposition home or self-care (01) ==
LOC: HO.MRI 15:58
PROVIDERS: PCP Internal Medicine; Visit Provider Nurse Practitioner Family
DX: M48.061 Spinal stenosis, lumbar region without neurogenic claudication (principal); M51.36 Other intervertebral disc degeneration, lumbar region; M54.16 Radiculopathy, lumbar region
CPT/HCPCS: 72148

== ENCOUNTER 2023-04-09 09:10 | Outpatient (AMB) | payer MEDICAID, SELFPAY ==
--- NOTE | 2023-04-09 09:27 | A.SPINEOV_ITS ---
Intake Intake Visit Reasons: Low back pain Intake Note: Mr. Rob Santiago is here today c/o low back pain. [place] done @ [facility] [place] 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: No Allergies morphine [MORPHINE] Allergy (Intermediate, Verified 02/27/23 13:33) PALPITATIONS, tachicardia quetiapine [Seroquel] Allergy (Unknown, Verified 02/27/23 13:33) Unknown orphenadrine [ORPHENADRINE] Adverse Reaction (Intermediate, Verified 02/27/23 13:33) RAPID HEART RATE Assessment & Plan Assessment & Plan (1) Lumbar degenerative disc disease: Code(s): M51.36 - Other intervertebral disc degeneration, lumbar region (2) Lumbar radiculopathy: Code(s): M54.16 - Radiculopathy, lumbar region Plan Dear colleague Thank you for referring Lelo Santiago to the office today with a chief complaint of intractable low back pain and bilateral lumbar radiculopathy. HPI: This 63-year-old female is suffering from progressive intractable low back pain and radiating pain down both legs with the right side is more affected than the left side. The pain has been going on for more than a year and progressive in the last 6 months. Pain is located across the lumbar sacral spine and radiates into her buttocks down to the front of her legs into her feet. She tried physical therapy and cortisone injections without effect. [id number] medications provided no relief. The best position is laying down. Changing positions walking standing or prolonged sitting aggravates her symptoms. PMH: Depression, hypertension, well-controlled diabetes Medications: Albuterol, aripiprazole, clonazepam, gabapentin, hydrochlorothiazide, lidocaine patch, metformin, methocarbamol, omeprazole, oxycodone, trazodone, Effexor Allergies: Morphine, Seroquel, orphenadrine Social history: . Lives with the . Nonsmoker. Disabled from depression Physical Exam: Pleasant female in obvious agony. She ambulates with a cane. Change position is painful. There is pain on palpation in the lumbosacral area. Flexion-extension is restricted and painful. Straight leg raise produces pain in the lower spine. There are no motor or sensory deficits. Radiological Studies: MRI done at [facility] shows normal anatomy of the lumbar spine with the exception of the L5-S1 segment that shows severe degenerative disc disease with severe bilateral L5 foraminal stenosis and compression of the left S1 nerve root due to a disc bulge. Impression/Plan: This 63-year-old female suffering from intractable low back pain not responding to conservative management. The MRI shows severe degenerative disc disease L5-S1 which could be the source of her pain. The pain is disabling and limiting her function. Therefore I offered her a lumbar fusion. The best approach would be an anterior lumbar interbody fusion or an alternative the oblique lumbar interbody fusion. The approach will be decided by , the approach surgeon. She is tentatively scheduled for 07/01/2023. She will get preoperative clearance by a prior care physician. Thank you for allowing me to participate in your patients care. total time spent was 50 minutes in counseling ,coordination of plan, personal review of imaging, surgical decision making and subsequent plan Andrés Leon MD, PhD Spine Fellowship Trained Neurosurgeon Director, [facility] Coding Level of Care Code New Pt Level 4 (12094) Diagnoses Lumbar degenerative disc disease M51.36 Lumbar radiculopathy M54.16
== END 2023-04-09 09:52 | disposition home or self-care (01) ==
PROVIDERS: PCP Internal Medicine; Referring Provider Nurse Practitioner Family; Visit Provider Neurological Surgery
DX: M51.36 Other intervertebral disc degeneration, lumbar region (principal); M54.16 Radiculopathy, lumbar region
CPT/HCPCS: 99204

== ENCOUNTER → 2023-04-09 09:10 | Outpatient (BNVA) | payer MEDICAID, SELFPAY | PROVIDERS: PCP Internal Medicine; Referring Provider Nurse Practitioner Family; Visit Provider Neurological Surgery | DX: M51.36 Other intervertebral disc degeneration, lumbar region (principal); M54.16 Radiculopathy, lumbar region | CPT/HCPCS: 99202 ==

== ENCOUNTER → 2023-07-21 12:30 | Outpatient (BNV) | payer MEDICAID, SELFPAY | PROVIDERS: PCP Internal Medicine; Visit Provider Physician Assistant | DX: Z48.89 Encounter for other specified surgical aftercare (principal) | CPT/HCPCS: 99024 ==

== ENCOUNTER → 2023-07-21 12:30 | Day surgery (SDC) | payer MEDICAID, SELFPAY ==
[2023-07-09 12:38] VITALS: BP 160/79; PULSE 79; RESP 18; O2SAT 97; BMI 37.6
--- NOTE | 2023-07-09 13:07 | HO.ANESPROP2 ---
HPI - Anesthesia Eval Consult details Narrative: 63yo F for L5-S1 Oblique Lumbar Interbody Fusion, L5-S1 Ant Lumbar Interbody Fusion, 07/21/23 No recent illness Asthma stable. Flovent daily. Albuterol ~ 1 x monthly DM. FBS ~ 95 HTN. BP up DOS. Pt did not take HCTZ. Educated on daily rx PMFSH Active Problems Active Problems: All Active Problems (Updated 07/09/23 @ 12:22 by Tonya Yao RN) Muscle spasm of back (Acute) Lumbar spinal stenosis (Acute) Lumbar degenerative disc disease (Acute) Lumbar radiculopathy (Acute) Post laminectomy syndrome (Acute) Chronic pain syndrome (Acute) MDD (major depressive disorder), recurrent episode, moderate (Acute) Chronic pain (Acute) Hesitancy of micturition (Acute) Leg pain (Acute) Varicose veins of right lower extremity with inflammation (Acute) Feeling of incomplete bladder emptying (Acute) Symptom of leg swelling (Acute) Shoulder pain, right (Acute) Osteoarthritis of right glenohumeral joint (Acute) COVID-19 (Acute) History of pubovaginal sling (Acute) Diverticulosis (Acute) Chronic idiopathic constipation (Acute) Migraine (Acute) Fibromyalgia (Acute) Diabetes 1.5, managed as type 2 (Acute) Depression (Acute) Asthma (Acute) Past Medical History Medical History (Updated 07/09/23 @ 12:22 by Tonya Yao RN) Weakness Arthritis History of brain inflammation Protrusion of lumbar intervertebral disc Tinnitus Venous insufficiency Osteoarthritis Loss of hair History of headache Fibromyositis Fatigue Hyperlipidemia HTN (hypertension) Continuous opioid dependence Sinusitis Anemia Anxiety Diverticulosis Chronic idiopathic constipation Migraine Asthma Depression Diabetes 1.5, managed as type 2 Fibromyalgia Family History Family History Mother Colon cancer Family history of problems with anesthesia: No Surgical History Surgical History (Updated 07/09/23 @ 12:05 by Tonya Yao RN) S/P panniculectomy Hx of hysterectomy Hx of oophorectomy Hx of bilateral breast reduction surgery H/O colonoscopy History of pubovaginal sling Gastric bypass status for obesity History of Problems with Anesthesia: No Social History Social History Household Members: Spouse and Children Household Members Other:: lives alone Housing: Apartment Are you a primary care director rn to a significant other at home: No Do you presently have 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 If so, by whom?: No Advance Directives: No Advance Directives Information Provided: No Advance Directives on File: No Recently lost weight without trying: No Eating poorly because of decreased appetite: No Nutrition Risks: No Nutritional Risk Patient : No : No Poor oral hygiene: No service: No Current occupational status: disabled Sexual orientation: Straight/Heterosexual Gender identity: Female Meds Allergies Allergy/AdvReac Type Severity Reaction Status Date / Time morphine [MORPHINE] Allergy Intermediate PALPITATIONS, Verified 02/27/23 13:33 tachicardia quetiapine [Seroquel] Allergy Unknown Unknown Verified 02/27/23 13:33 orphenadrine [ORPHENADRINE] AdvReac Intermediate RAPID Verified 02/27/23 13:33 HEART RATE Home Medications Medication Instructions Recorded Confirmed Last Taken Type ferrous sulfate 325 mg (65 mg 325 mg PO QWEEK 12/11/22 07/09/23 Unknown History iron) tablet,delayed release hydrochlorothiazide 12.5 mg tablet 12.5 mg PO DAILY 12/11/22 07/09/23 Unknown History melatonin 5 mg tablet 5 mg PO BEDTIME PRN Insomnia 12/11/22 07/09/23 Unknown History metformin 500 mg tablet,extended 500 mg PO BID 12/11/22 07/09/23 Unknown History release 24 hr trazodone 100 mg tablet 300 mg PO BEDTIME 12/11/22 07/09/23 Unknown History fluticasone propionate 110 2 puff inhalation BID 07/09/23 07/09/23 Unknown History mcg/actuation HFA aerosol inhaler gabapentin 300 mg capsule 300 mg PO TID pain 07/09/23 07/09/23 Unknown History venlafaxine 37.5 mg 75 mg PO DAILY 07/09/23 07/09/23 Unknown History capsule,extended release 24 hr (Effexor XR) Exam Height,Weight and Vital Signs: Height 5 ft 5 in Weight 102.512 kg Last Vital Signs Pulse 79 07/09/23 12:38 Resp 18 07/09/23 12:38 BP 160/79 H 07/09/23 12:38 Pulse Ox 97 07/09/23 12:38 O2 Del Method Room Air 07/09/23 12:38 Pertinent Lab Results Pertinent Lab Results: Lab Results 07/09/23 07/09/23 Range/Units 13:38 13:56 WBC 9.1 (4.8-10.8) X10*3/uL RBC 4.23 (4.20-5.50) X10*6/uL Hgb 10.6 L (12.0-16.0) g/dl Hct 34.2 L (37.0-47.0) % MCV 80.9 (80.0-98.0) fL MCH 25.1 L (27.0-33.0) pg MCHC 31.0 (31.0-35.0) g/dl RDW 16.0 (11.0-16.0) % Plt Count 272 (160-400) X10*3/uL MPV 10.3 (9.4-12.3) fL Absolute Nucleated RBC 0.000 (0.0-0.012) X10*3/uL Nucleated RBC % (auto) 0.0 (0.0-0.2) /100WBC Sodium 140 (135-145) mmol/L Potassium 4.6 (3.3-5.1) mmol/L Chloride 105 (96-108) mmol/L Carbon Dioxide 28 (22-29) mmol/L Anion Gap 12 (12-20) BUN 25 H (9-16) mg/dL Creatinine 0.78 (0.5-1.4) mg/dL Estim Creat Clear Calc 89.8 Estimated GFR > 60 Random Glucose 91 (60-115) mg/dL Calcium 9.4 D (8.4-10.2) mg/dL Blood Type B Positive Antibody Screen NEGATIVE Narrative Narrative: EKG 07/2023 from outside facility NSR @ 80 Airway Mallampati Class: III TM Dist: >3cm Neck ROM: Full Loose/Missing/Broken Teeth: Yes (1 x missing upper left) Heart: RRR Lungs: CTAB Assessment and Plan Assessment Anesthesia Assessment: Anesthesia Plan Discussed and PAT Visit Final Anesthetic Review Family History of Problems with Anesthesia: No History of Problems with Anesthesia: No
[2023-07-09 15:12] LABS: Hematocrit 34.2 % (37.0-47.0); Hemoglobin 10.6 g/dl (12.0-16.0); Mean Corpuscular Hemoglobin 25.1 pg (27.0-33.0); Mean Corpuscular Volume 80.9 fL (80.0-98.0); Mean Platelet Volume 10.3 fL (9.4-12.3); Platelet Count 272 X10*3/uL (160-400); Red Blood Count 4.23 X10*6/uL (4.20-5.50); White Blood Count 9.1 X10*3/uL (4.8-10.8)
[2023-07-09 17:38] LABS: Anion Gap 12 (12-20); Blood Urea Nitrogen 25 mg/dL (9-16); Calcium 9.4 mg/dL (8.4-10.2); Carbon Dioxide 28 mmol/L (22-29); Chloride 105 mmol/L (96-108); Creatinine Clr Calc Pharmacy 89.8; Estimated Glomerular Filt Rate > 60; Glucose Random 91 mg/dL (60-115); Potassium 4.6 mmol/L (3.3-5.1); Sodium 140 mmol/L (135-145)
--- NOTE | 2023-07-21 07:09 | P.HPSUR_ITS ---
Pre-Procedural Eval Section A - 24 Hr Update-Section A only Date of Service: 07/21/23 The patient is an INPATIENT: No Changes since office visit: No Cold of Flu in the past 2 weeks, No New Medical Problems, No Changes in Medication and No Patient answered all questions The patient has been examined within 24 hours of the surgical procedure. The History & Physical has been completed within 30 days and I have reviewed it.: No Section B - Complete if H&P > 30 days Chief Complaint: Radiculopathy, lumbar region,intervertebral disc Allergies: Allergies Allergy/AdvReac Type Severity Reaction Status Date / Time morphine [MORPHINE] Allergy Intermediate PALPITATIONS, Verified 02/27/23 13:33 tachicardia quetiapine [Seroquel] Allergy Unknown Unknown Verified 02/27/23 13:33 orphenadrine [ORPHENADRINE] AdvReac Intermediate RAPID Verified 02/27/23 13:33 HEART RATE Review of Systems Sugical H&P ROS: Negative: Constitution, Cardiovascular, Respiratory, Neurological, Psychiatric, Hem-Onc, Allergic/Immunologic, Gastrointestinal, Genitourinary, Musculoskeletal, Integumentary, Endocrine and Eyes/E ars/Nose/Throat Exam Surgical H&P Exam: Not Evaluated: HEENT, Not Evaluated: Heart, Not Evaluated: Lungs, Not Evaluated: Extremities, Not Evaluated: Abdomen, Not Evaluated: Skin and Not Evaluated: Neurological Plan Diagnosis/Plan: Unchanged L5-S1 transkambin oblique lateral lumbar interbody fusion Time Spent With Patient Time: Total time managing care of this patient today _6___ minutes.
[2023-07-21 12:46] VITALS: BMI 37.3
[2023-07-21] MEDS: Lactated Ringers 1,000 ML 100 ML IVCONT (12:59)
[2023-07-21] MEDS: methocarbamoL 750 MG TABLET PO (12:59)
[2023-07-21] MEDS: Gabapentin 300 MG CAPSULE PO (13:00)
--- NOTE | 2023-07-21 13:10 | PHA.MEDREC ---
Pharmacy Consult ? Medication Reconciliation Pharmacy has reviewed the medication reconciliation completed by nursing.
[2023-07-21 14:30] LABS: Glucose, Whole Blood 88 mg/dL (60-115)
--- NOTE | 2023-07-21 14:52 | PC.NURSE ---
pt told by CAMELIA that case is cancelled due to extended case in or and to reschedule for 0800 tomorrow morning.. given applejuice and zoey crackers x 4 with resolution of feeling shakey with blood sugar 88. tolerated 100%. iv removed and dsd applied with no oozing. pt going to coffee shop and denies dizziness/lightheadedness. iitially reported to dr. Cabrera, with orders received. for replacement of dextrose, but then made aware of pt OR cancellation. returned acetaminophen iv and cefazolin.
[2023-07-22 07:43] LABS: Glucose, Whole Blood 107 mg/dL (60-115)
--- NOTE | 2023-07-31 15:58 | HO.NEURO.PN ---
Neurosurgery Operative Note Date of Service: 07/31/23 Narrative: Lelo is a 63-year-old female who is s/p L4-5 transkambin lumbar interbody fusion on 07/22/23. She was discharged from the hospital to a acute inpatient rehab facility, however left against medical advice because she reports not receiving pain medication despite being sent there with a prescription of oxycodone. She has presented to the emergency department twice this week, without reaching out to our office or attempting to make an appointment with our service. She reports that she feels neurologically the same as she did before surgery. He has some increased low back pain which she reports she has not been able to manage with at home medications. No new weakness or numbness reported. On exam she was sitting upright in bed, A&OX4 in NAD. Patient is afebrile, vitals are stable, no leukocytosis. She continues to vocalize significant low back pain. Her incision sites have some swelling but look great. No notable ecchymosis, erythema, or flutuance. Posterior incisions are without dressings, far lateral incision has surgical dressing till in place. No active serosanguineous drainage. No signs of hematoma. 63 y/o female with a Hx of intractable low back pain presents to the ED after she failed acute rehabilitation post-surgery. She has no new neurological deficits. She is neurologically at her baseline. She complains of symptoms that are very similar to those she had prior to surgery. Her wound looks fine. I called in oxycodone 5 mg to the [facility] pharmacy alongside Tylenol 1000 mg q.i.d. and related to the PA her attending her care that we would like her to picker feeder these medications prior to her discharge. I also had our surgical services assistant add Lelo to my schedule for 10:00 tomorrow. We will continue our evaluation of her in clinic and obtain x-rays at her visit. This was discussed with Dr. Leon who understands this assessment and is in agreement with the plan outlined in this note. Pj Leon MD,PhD [facility]
== END ==
LOC: HO.SSSA 15:32 → HO.SSS 07-22 08:01
PROVIDERS: Nurse Practitioner; PCP Internal Medicine; Visit Provider Neurological Surgery
DX: M51.36 Other intervertebral disc degeneration, lumbar region (principal); M54.16 Radiculopathy, lumbar region; Z53.8 Procedure and treatment not carried out for other reasons
CPT/HCPCS: 36415; 80048; 82947; 85027; 86850; 86900; 86901; J0131; J0690; J1100; J1170; J1885; J2704; J3010

== ENCOUNTER 2023-07-22 09:11 | Inpatient (IN) | payer MEDICAID, SELFPAY ==
[2023-07-22] VITALS (15 sets, daily range): BP systolic 115–166; BP diastolic 59–104; PULSE 71–107; RESP 12–21; TEMP 36.1–36.3; O2SAT 93–97; BMI 38.3; BMI 41.3
--- NOTE | ~2023-07-22 | FL_ITS ---
EXAMINATION: XR FLUOROSCOPY WITH IMAGES CLINICAL INFORMATION: L5-S1 Trans-Kambin lumbar interbody fusion. COMPARISON: MRI lumbar spine 04/04/2023. TECHNIQUE: Fluoroscopy Supervised By: Dr. Leon. Fluoroscopy Time: 1.85 minutes. Cumulative Dose: 194.43 mGy. DAP: 59 Gycm2. Images: 3. FINDINGS: Images show sequential placement of posterior pedicular screws at L5-S1 with an interbody device. FL/FL guidance in OR IMPRESSION: Fluoroscopy and spot films provided during L5-S1 fusion.
--- NOTE | 2023-07-22 06:59 | P.HPSUR_ITS ---
Pre-Procedural Eval Section A - 24 Hr Update-Section A only Date of Service: 07/22/23 The patient is an INPATIENT: No Changes since office visit: No Cold of Flu in the past 2 weeks, No New Medical Problems, No Changes in Medication and No Patient answered all questions The patient has been examined within 24 hours of the surgical procedure. The History & Physical has been completed within 30 days and I have reviewed it.: No Section B - Complete if H&P > 30 days Chief Complaint: Other intervertebral disc degeneration, lumbar reg Allergies: Allergies Allergy/AdvReac Type Severity Reaction Status Date / Time morphine [MORPHINE] Allergy Intermediate PALPITATIONS, Verified 02/27/23 13:33 tachicardia quetiapine [Seroquel] Allergy Unknown Unknown Verified 02/27/23 13:33 orphenadrine [ORPHENADRINE] AdvReac Intermediate RAPID Verified 02/27/23 13:33 HEART RATE Review of Systems Sugical H&P ROS: Negative: Constitution, Cardiovascular, Respiratory, Neurological, Psychiatric, Hem-Onc, Allergic/Immunologic, Gastrointestinal, Genitourinary, Musculoskeletal, Integumentary, Endocrine and Eyes /Ears/Nose/Throat Exam Surgical H&P Exam: Not Evaluated: HEENT, Not Evaluated: Heart, Not Evaluated: Lungs, Not Evaluated: Extremities, Not Evaluated: Abdomen, Not Evaluated: Skin and Not Evaluated: Neurological Plan Diagnosis/Plan: Unchanged L5-S1 transkambin obliquelateral lumbar interbody fusion Time Spent With Patient Time: Total time managing care of this patient today __2_ minutes.
[2023-07-22 08:39] LABS: Glucose, Whole Blood 117 mg/dL (60-115)
--- NOTE | 2023-07-22 09:25 | HO.ANESPROP2 ---
[facility] Active Problems Active Problems: All Active Problems (Updated 07/09/23 @ 12:22 by Tonya Yao RN) Muscle spasm of back (Acute) Lumbar spinal stenosis (Acute) Lumbar degenerative disc disease (Acute) Lumbar radiculopathy (Acute) Post laminectomy syndrome (Acute) Chronic pain syndrome (Acute) MDD (major depressive disorder), recurrent episode, moderate (Acute) Chronic pain (Acute) Hesitancy of micturition (Acute) Leg pain (Acute) Varicose veins of right lower extremity with inflammation (Acute) Feeling of incomplete bladder emptying (Acute) Symptom of leg swelling (Acute) Shoulder pain, right (Acute) Osteoarthritis of right glenohumeral joint (Acute) COVID-19 (Acute) History of pubovaginal sling (Acute) Diverticulosis (Acute) Chronic idiopathic constipation (Acute) Migraine (Acute) Fibromyalgia (Acute) Diabetes 1.5, managed as type 2 (Acute) Depression (Acute) Asthma (Acute) Past Medical History Medical History (Updated 07/09/23 @ 12:22 by Tonya Yao RN) Weakness Arthritis History of brain inflammation Protrusion of lumbar intervertebral disc Tinnitus Venous insufficiency Osteoarthritis Loss of hair History of headache Fibromyositis Fatigue Hyperlipidemia HTN (hypertension) Continuous opioid dependence Sinusitis Anemia Anxiety Diverticulosis Chronic idiopathic constipation Migraine Asthma Depression Diabetes 1.5, managed as type 2 Fibromyalgia Family History Family History Mother Colon cancer Family history of problems with anesthesia: No Surgical History Surgical History S/P panniculectomy Hx of hysterectomy Hx of oophorectomy Hx of bilateral breast reduction surgery H/O colonoscopy History of pubovaginal sling Gastric bypass status for obesity History of Problems with Anesthesia: No Social History Social History Household Members: Spouse and Children Household Members Other:: lives alone Housing: Apartment Are you a primary care management associate to a significant other at home: No 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) Alcohol intake: unknown Comment: IV infiltrated Patient Tobacco Use Status: Never used Tobacco Use of substances other than those prescribed or required for medical reasons: No Are you DNR?: No Advance Directives: No Advance Directives Information Provided: No service: No Current occupational status: disabled Sexual orientation: Straight/Heterosexual Gender identity: Female Meds Allergies Allergy/AdvReac Type Severity Reaction Status Date / Time morphine [MORPHINE] Allergy Intermediate PALPITATIONS, Verified 07/22/23 08:08 tachicardia quetiapine [Seroquel] Allergy Intermediate Aggitation Verified 07/22/23 08:08 orphenadrine [ORPHENADRINE] AdvReac Intermediate RAPID Verified 07/22/23 08:08 HEART RATE Active Medications: Current Medications Cefazolin Sodium/Dextrose (Ancef) 2 gm in 50 mls @ 100 mls/hr IV PREOP ONE Stop: 07/22/23 09:39 Home Medications Medication Instructions Recorded Confirmed Last Taken Type ferrous sulfate 325 mg (65 mg 325 mg PO QWEEK 12/11/22 07/22/23 06/23/23 History iron) tablet,delayed release melatonin 5 mg tablet 5 mg PO BEDTIME PRN Insomnia 12/11/22 07/22/23 07/08/23 History metformin 500 mg tablet,extended 500 mg PO BID 12/11/22 07/22/23 07/22/23 History release 24 hr trazodone 100 mg tablet 300 mg PO BEDTIME 12/11/22 07/22/23 07/21/23 History fluticasone propionate 110 2 puff inhalation BID 07/09/23 07/22/23 07/15/23 History mcg/actuation HFA aerosol inhaler gabapentin 300 mg capsule 300 mg PO TID pain 07/09/23 07/22/23 07/21/23 History hydrochlorothiazide 50 mg tablet 50 mg QAM 07/21/23 07/22/23 07/22/23 History venlafaxine 150 mg 300 mg PO DAILY 07/21/23 07/22/23 07/22/23 History capsule,extended release 24 hr Exam Height,Weight and Vital Signs: Height 5 ft 5 in Weight 104.417 kg Last Vital Signs Temp 97.4 F 07/22/23 08:16 Pulse 73 07/22/23 08:16 Resp 16 07/22/23 08:16 BP 143/91 H 07/22/23 08:16 Pulse Ox 96 07/22/23 08:16 O2 Del Method Room Air 07/22/23 08:16 Pertinent Lab Results Pertinent Lab Results: Laboratory Tests 07/22/23 08:28 POC Glucose 117 H Airway Mallampati Class: III TM Dist: <=3cm Neck ROM: Full Loose/Missing/Broken Teeth: No Heart: rrr Lungs: cta b/l Assessment and Plan Final Anesthetic Review Family History of Problems with Anesthesia: No History of Problems with Anesthesia: No NPO: Yes ASA Class: III Final Preanesthetic Review: No Changes in Pt Med Stat, Meds/Allgs Chart Reviewed, Consent Obtained/Reviewed and Anes Risks/Benef Reviewed Patient Risk: Intermediate Procedure Risk: Intermediate Anesthetic Plan Anesthetic Plan: GA (with neuro monitoring) Disposition: Standard PACU
[2023-07-22] MEDS: Gabapentin 300 MG CAPSULE PO ×3 (09:26→20:08)
[2023-07-22] MEDS: methocarbamoL 750 MG TABLET PO (09:26)
--- NOTE | 2023-07-22 12:01 | W.PM.OPN ---
Operative Note Operative Note Date of Service: 07/22/23 Narrative: Preoperative diagnosis: 1) L5-S1 degenerative disc disease;; back pain lumbar radiculopathy Postprocedure diagnosis: 1) same as above Procedure: 1) L5-S1 oblique lateral lumbar interbody fusion with discectomy, preparation of the endplates and placement of a titanium bullet cage packed with allograft, anterior to the transverse process in modified prone position, with intraoperative biplanar fluoroscopy imaging and electrophysiological monitoring 2) L5-S1 posterior minimally invasive pedicle screw placement and posterior lateral instrumentation and fusion with intraoperative biplanar fluoroscopic imaging and electrophysiological monitoring 3 injection of 10 cc for erector spinae block bilaterally Consent Informed Consent was obtained for this operation. I have explained the nature, purpose and benefits of the operation. I have discussed the risks and benefit of the operation including possible complications or adverse events with patient/family. Alternative(s) were discussed with the patient with their relative benefits and risks as well as the consequences of not accepting the operation were included in obtaining consent. Surgeon: GREGORY ALVAREZ MD, PHD Procedure Assisted By: des King Description of Procedure: This is a complex surgery on the lumbar spine and an occupational therapy assistant as needed for safety of the surgery for setup of instrumentation, retraction and closing. History: This 63-year-old obese female is suffering from intractable low back and lumbar radiculopathy due to L5-S1 degenerative disc disease with bilateral foraminal narrowing. The patient was offered an oblique lumbar lateral interbody fusion followed by a posterior lateral instrumented fusion L5-S1. The procedure and complications were explained and the patient was consented. Procedure: The patient was brought to the operating room and endotracheally intubated. The patient was positioned on the Franky spine table in a modified prone position for ease of access from the left side.. 2C arms were installed for fluoroscopy. Prepping and draping was done followed by timeout. The landmarks, including spinal processes, transverse processes, disc space, endplates and pedicles are identified and marked. The following steps are taken for each specified level: L5-S1 level: Cage size 10 mm high and 30 mm long titanium . The patient was turned using the rotation of the surgical table so a near direct anterior lateral approach to the lumbar spine could be achieved. A small incision was then made superior to the mid iliac crest and then using biplanar fluoroscopy visualization, under electrophysiological monitoring and stimulation, we introduced an electrophysiological probe through the retroperitoneal space into the desired disc anterior to the transverse process and then passed it into the disc space after finding a silent window. The sleeve was retained and the probe was removed, then the K wire was passed sequentially into the disc space. A dilating tube was then passed along the same route. Following this, a working channel, a working channel was then passed sequentially into the disc space. The working channel was manually held in position while a series of disc cleaning tools were passed through the channel to remove the affected disc under clear and direct biplanar fluoroscopic visualization, decompress the nerve roots and equal corticated vertebral endplates at this segment. Arthrodesis of the intervertebral space via an anterior retroperitoneal exposure was achieved through Kambin's Beecher and lateral extraforaminal space. Allograft was added into the anterior disc space. The working channel was then removed. A titanium interbody cage tightly packed with allograft was then inserted into the midportion of the intervertebral disc space over a K-wire under biplanar fluoroscopic visualization and intraoperative neuro monitoring. The inter pedicular and intradiscal space was significantly enlarged and disc height was restored to worked normal anatomy there for releasing pressure on the nerve roots visual largely the spinal canal and lateral recess as well as foramen were bilateral decompressed and all bones were confined to the borders of the disc space . The following steps are then taken for each specified level: L5 S1 level: Bilateral L5 screws screws with a diameter of 6.5 x 45 mm and bilateral S1 screws with a diameter of 6.5 x 40 mm. The posterolateral fusion is initiated after the patient is rotated to a true prone position. The entry point to the pedicle is identified in the AP and lateral views and then the skin incision is injected with local anesthetic. We entered the pedicle with the pediguard tap after which a K-wire was introduced into the vertebral body. Additionally, I used a small periosteal decorticator along the screws to refresh the surface of the bone and facet and I put some amount of allograft for additional stability for the posterolateral fusion. Over the K-wire we insert pedicle screws bilaterally. After the screws were placed, we put the champ in place and under fluoroscopic imaging, we locked the champ in place and removed the screw tops and then each incision has been closed with 0 Vicryl for the fascia and a 3-0 Vicryl for the subdermal layer. Steri-Strips were used to approximate the incisions. An OpSite with Tegaderm was used to cover the incision. Final x-rays and AP and lateral projection showed good position of the interbody device and instrumentation. All sponge and needle counts were correct. The patient was extubated and transported in a stable condition to the recovery room. 2-0 Vicryl This procedure was done with the aid of a physician occupational therapy assistant as a qualified resident was not available. Anesthesia: General Estimated Blood Loss (ml): 10 mL Specimen: None Duration of Surgery: 45 minutes Postoperative Plan: Admit to inpatient
--- NOTE | 2023-07-22 14:25 | HO.POSTANES ---
Post Anesthesia Evaluation Post Anesthesia Evaluation Date of Service: 07/22/23 Vital Signs: Vital Signs Temp Pulse Resp BP Pulse Ox O2 Del Method O2 Flow Rate 07/22/23 13:15 88 17 165/90 H 97 Simple Mask 6 07/22/23 13:05 85 17 166/86 H 97 Simple Mask 07/22/23 13:00 77 18 145/77 H 97 Simple Mask 6 07/22/23 12:45 79 21 H 135/74 96 Simple Mask 15 07/22/23 12:40 82 21 H 115/71 95 Simple Mask 15 07/22/23 12:35 83 21 H 122/75 95 Simple Mask 15 07/22/23 12:34 97 F 71 21 H 135/79 95 Simple Mask 15 07/22/23 08:16 97.4 F 73 16 143/91 H 96 Room Air Anesthesia: General Endotracheal-GETA Mental Status: Awake Pain Control: Satisfactory (pain difficult to control) Nausea/Vomiting: None Hydration: Adequate Anesthesia-Related Issues: No Anes. Related Issues
[2023-07-22] MEDS: 0.9 % Sodium Chloride 1,000 ML 75 ML IVCONT (15:58)
[2023-07-22] MEDS: Omeprazole 20 MG CAPSULE.DR PO (16:00)
[2023-07-22] MEDS: ceFAZolin Sodium/Dextrose,Iso 2 GM/50 ML PIGGYBACK IV ×2 (16:01→23:26)
[2023-07-22 16:13] LABS: Glucose, Whole Blood 148 mg/dL (60-115)
[2023-07-22] MEDS: Acetaminophen 1,000 MG/100 ML PIGGYBACK 400 MG IV ×2 (17:39→23:38)
[2023-07-22] MEDS: Fluticasone Propionate 100 MCG BLST.W.DEV 2 PUFF INHALE (19:37)
[2023-07-22 20:00] LABS: Glucose, Whole Blood 261 mg/dL (60-115)
[2023-07-22] MEDS: clonazePAM 1 MG TABLET PO (20:08)
[2023-07-22] MEDS: traZODone HCL 100 MG TABLET 300 MG PO (20:09)
[2023-07-22] MEDS: metFORMIN HCl ER 500 MG TAB.ER.24H PO (20:09)
[2023-07-22] MEDS: Docusate Sodium 100 MG CAPSULE PO (20:09)
[2023-07-22] MEDS: oxyCODONE HCl Immed Release 5 MG TABLET 10 MG PO (20:09)
[2023-07-23] MEDS: 0.9 % Sodium Chloride 1,000 ML 75 ML IVCONT (02:55)
[2023-07-23 03:21] VITALS: BP 119/65; PULSE 81; RESP 18; TEMP 36.3; O2SAT 96
[2023-07-23] MEDS: oxyCODONE HCl Immed Release 5 MG TABLET 10 MG PO ×4 (04:10→14:39)
[2023-07-23] MEDS: ceFAZolin Sodium/Dextrose,Iso 2 GM/50 ML PIGGYBACK IV (04:42)
[2023-07-23] MEDS: Acetaminophen 1,000 MG/100 ML PIGGYBACK 400 MG IV ×2 (05:58→11:02)
[2023-07-23] MEDS: Omeprazole 20 MG CAPSULE.DR PO (05:58)
--- NOTE | 2023-07-23 07:07 | PC.NURSE ---
pt is still c/o left leg mild weakness
[2023-07-23 07:14] VITALS: BP 129/73; PULSE 79; RESP 18; TEMP 36; O2SAT 94
[2023-07-23 07:21] LABS: Glucose, Whole Blood 79 mg/dL (60-115)
[2023-07-23] MEDS: clonazePAM 1 MG TABLET PO (07:27)
[2023-07-23] MEDS: Gabapentin 300 MG CAPSULE PO ×2 (07:27→14:40)
[2023-07-23] MEDS: Docusate Sodium 100 MG CAPSULE PO (07:27)
[2023-07-23] MEDS: Venlafaxine HCl ER 150 MG CAP.ER.24H 300 MG PO (07:27)
[2023-07-23] MEDS: ARIPiprazole 10 MG TABLET PO (07:27)
[2023-07-23] MEDS: hydroCHLOROthiazide 50 MG TABLET PO (07:27)
[2023-07-23] MEDS: metFORMIN HCl ER 500 MG TAB.ER.24H PO (07:28)
[2023-07-23] MEDS: Fluticasone Propionate 100 MCG BLST.W.DEV 2 PUFF INHALE (07:50)
[2023-07-23 07:52] VITALS: PULSE 84; RESP 18; O2SAT 98
--- NOTE | 2023-07-23 09:00 | HO.POSTANES ---
Post Anesthesia Evaluation Post Anesthesia Evaluation Date of Service: 07/23/23 Vital Signs: Vital Signs Temp Pulse Resp BP Pulse Ox O2 Del Method 07/23/23 07:52 84 18 07/23/23 07:14 96.8 F 79 18 129/73 94 Room Air 07/23/23 03:21 97.3 F 81 18 119/65 96 Room Air 07/22/23 23:26 96.9 F 83 18 115/59 L 93 Room Air Anesthesia: General Endotracheal-GETA Mental Status: Awake Pain Control: Satisfactory (Pain still difficult to control) Nausea/Vomiting: None Hydration: Adequate Anesthesia-Related Issues: No Anes. Related Issues
--- NOTE | 2023-07-23 09:06 | PM.DS ---
DS: Providers Provider Date of Service: 07/23/23 Date of admission: 07/22/23 09:11 Primary care physician: Elizabeth Goncalves MD DS: Summary Time Attestation Discharge Coordination Time (in mins): 25 Quality: Safe Use of Opioids Does Pt have an Active Cancer Diagnosis on the Problem List?: No Quality: Stroke Does the patient have a stroke diagnosis?: No Physical Exam Vital Signs: Vital Signs: Last Vital Signs Temp 96.8 F 07/23/23 07:14 Pulse 84 07/23/23 07:52 Resp 18 07/23/23 07:52 BP 129/73 07/23/23 07:14 Pulse Ox 94 07/23/23 07:14 O2 Del Method Room Air 07/23/23 07:14 O2 Flow Rate 2 07/22/23 19:02 BMI result Body Mass Index 41.3 DS: Data Data Completed and Pending Labs on day of discharge: Laboratory Results - last 24 hr 07/22/23 07/22/23 07/23/23 16:09 19:52 07:08 POC Glucose 148 H 261 H 79 Discharge Plan Discharge Anticipated Discharge Date/Time: 07/23/23 09:06 Patient Disposition: Xfer Inpatient Rehab Fac Discharge Diagnosis: S/P L4-5 Transkambin Referrals: Elizabeth Dunn MD [Primary Care Provider] - 1 Week Discharge Medications: Continued metformin 500 mg tablet extended release 24 hr 500 mg PO BID melatonin 5 mg tablet 5 mg PO BEDTIME PRN (Reason: Insomnia) trazodone 100 mg tablet 300 mg PO BEDTIME ferrous sulfate 325 mg (65 mg iron) tablet,delayed release (DR/EC) 325 mg PO QWEEK lidocaine 5 % cream 1 appl topical BID PRN (Reason: chronic pain) 30 Days Qty: 15 0RF clonazepam 1 mg tablet 1 mg PO BID 30 Days Qty: 60 0RF albuterol sulfate 90 mcg/actuation HFA aerosol inhaler 2 puff PO Q4-6H PRN (Reason: Wheezing) 30 Days Qty: 1 0RF aripiprazole 10 mg tablet 10 mg PO DAILY 30 Days Qty: 30 0RF gabapentin 300 mg capsule 300 mg PO TID fluticasone propionate 110 mcg/actuation Hfa Aerosol Inhaler 2 puff INHALATION BID hydrochlorothiazide 50 mg tablet 50 mg QAM venlafaxine 150 mg capsule,extended release 24hr 300 mg PO DAILY omeprazole 20 mg capsule,delayed release(DR/EC) 20 mg PO BID 90 Days Qty: 180 3RF Linzess 145 mcg capsule 145 mcg PO DAILY 90 Days Qty: 90 3RF methocarbamol 750 mg tablet 750 mg PO BID PRN (Reason: muscle spasm) Qty: 60 0RF lidocaine 5 % adhesive patch,medicated 1 patch topical DAILY Qty: 30 0RF Rx Instructions: ON FOR 12 HOURS THEN REMOVE FOR 12 HOURS Discharge Orders: Discharge Order (Routine); Ordered 07/23/23 Ordered By: Pj Jacobson Diet: Advance to usual diet Activity on Discharge: As tolerated Stand Alone Forms: Patient Portal Discharge page Activity Restrictions/Additional Instructions: After your spinal surgery we ask you to observe the following restrictions/guidelines: Activity: With lumbar fusion surgery it is normal to have days in the first couple of weeks where you have increased leg pain. This usually lasts 1-2 days and self resolves with the continuation of medication. Attempt to stay mobile and continue activity as tolerated. It is normal to feel some discomfort as you increase your activity, but that will improve with time. We ask you avoid heavy lifting or activities that cause pain. As a general rule, 8lbs is a safe limit for lifting right after surgery. Walk as much as you feel comfortable but not to exhaustion. You will feel extra tired the first few days after surgery. Stay well hydrated. It is OK to walk up and down stairs You may return to driving when you are off narcotics (such as vicodin, oxycodone, dilaudid, etc), and you are back to normal functional capacity. If you have any concerns please check with office before driving. Return to work is specific to each patient and each surgery, so please speak with your doctor/PA at first follow up. Please bring paperwork such as FMLA at that time if you need it filled out. Medications: It is recommended that you take Tylenol 500 mg every 4 hours for the 1st week postoperatively, ?alongside ibuprofen 600 mg every 8 hours. We will give you a short supply of narcotics after surgery (usually one weeks worth). ??Please use this for breakthrough pain that is refractory to the Tylenol / ibuprofen. If you need more please call the office but do not use more than prescribed. You will need to give our office 48 hours notice if you need narcotics refilled and we do not fill narcotics on weekends or evenings. If you are on a narcotic, it is a good idea to take a stool softener such as colace or senna to avoid constipation If you take blood thinner such as aspirin, Plavix, Coumadin, Effient, Eliquis etc for conditions such as Afib, DVT, Pulmonary embolus, coronary disease, stents etc please speak with your surgeon about specific details as to when you can resume these medications. You can resume NSAIDs on post op day 1 (eg: Motrin, Naproxen, etc). Follow up: Please call the office, , after surgery to arrange a 3 week follow up for wound check. Wound Care: You may remove your dressing on the first day after surgery. ?You may ?leave open to air. Please do not remove the steri strips underneath. they will fall off on their own in one week. IT IS NORMAL FOR THE WOUND TO OOZE OR BE BLOODY FOR A FEW DAYS AFTER SURGERY. ?IF THIS HAPPENS JUST PLACE NEW DRESSING OVER IT TO AVOID STAINING CLOTHES. You may shower on post op day # 1 We ask that you do not let the water soak the wound. If it does get wet, just towel dry lightly. Please do not scrub your incision or place any type of chemical/ointment on the wound. No tub baths, pools or jacuzzis for one month. If you have any leaking or redness from your wound, or fevers, please call office Care Plan Goals: Return to normal activity as tolerated Health Concerns: None Plan of Treatment: Discharged to inpatient rehabilitation facility per Physical therapy recommendations. Follow-up in clinic in 2-3 weeks. Assessment: POD: 1 Procedure: L5-S1 Transkambin Lumbar Fusion Patient reports she has been up out of bed but only was able to make it to her bedside commode. She feels her symptoms are much better than pre-operatively. She still reports mild-moderate pain radiating into her L lower extremity / foot, which was a pre-operative finding. She has good relief with pain medication. She is otherwise doing well ans is tolerating diet. Afebrile, vital signs stable. No new neurological deficits. Lelo has 4/5 strength with dorsiflexion / plantar flexion on the L side, but this is likely pain limiting. She is able to engage her bilateral feet and perform passive ROM. The rest of her lower extremity testing was 5/5. Back dressings have some staining without signs of hematoma. No active sanguineous drainage. Area is dry. Plan: PT evalauted the patient today and recommended rehab transfer. I discussed this with the attending neurosurgeon who is agreeable with this. I wrote Lelo a paper Rx for Oxycodone and provided it to her nurse to take with her to Rehab.
[2023-07-23 09:29] LABS: Estimated Glomerular Filt Rate > 60
--- NOTE | 2023-07-23 10:18 | MHC.CM.PN ---
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
[2023-07-23 11:23] LABS: Glucose, Whole Blood 86 mg/dL (60-115)
[2023-07-23] MEDS: methocarbamoL 750 MG TABLET PO (11:59)
[2023-07-23 12:00] VITALS: BP 137/63; PULSE 85; RESP 18; TEMP 36; O2SAT 96
--- NOTE | 2023-07-23 12:54 | HO.NEUROPN_ITS ---
Neurosurgery Operative Note Date of Service: 07/23/23 Narrative: POD: 1 Procedure: L5-S1 Transkambin Lumbar Fusion Patient reports she has been up out of bed but only was able to make it to her bedside commode. She feels her symptoms are much better than pre-operatively. She still reports mild-moderate pain radiating into her L lower extremity / foot, which was a pre-operative finding. She has good relief with pain medication. She is otherwise doing well ans is tolerating diet. Afebrile, vital signs stable. No new neurological deficits. Lelo has 4/5 strength with dorsiflexion / plantar flexion on the L side, but this is likely pain limiting. She is able to engage her bilateral feet and perform passive ROM. The rest of her lower extremity testing was 5/5. Back dressings have some staining without signs of hematoma. No active sanguineous drainage. Area is dry. Plan: PT evalauted the patient today and recommended rehab transfer. I discussed this with the attending neurosurgeon who is agreeable with this. I wrote Lelo a paper Rx for Oxycodone and provided it to her nurse to take with her to Rehab. Expected rehab stay <30 days for postoperative healing. Pj Leon MD,PhD [facility]
[2023-07-23 15:00] VITALS: BP 147/78; PULSE 86; RESP 17; TEMP 36.3; O2SAT 96
== END 2023-07-23 16:07 | DRG 304 ==
LOC: HO.SSSA 09:23 → HO.S3 13:24
PROVIDERS: Neurological Surgery; Physician Assistant; Admitting Provider Physician Assistant; PCP Internal Medicine; Visit Provider Physician Assistant
PROC: 0SG30A0 Fusion of Lumbosacral Joint with Interbody Fusion Device, Anterior Approach, Anterior Column, Open Approach (ICD-10-PCS; principal; 2023-07-22 10:50)
DX: M51.16 Intervertebral disc disorders with radiculopathy, lumbar region (principal); F11.20 Opioid dependence, uncomplicated; Z98.84 Bariatric surgery status; Z79.51 Long term (current) use of inhaled steroids; Z79.84 Long term (current) use of oral hypoglycemic drugs; Z79.899 Other long term (current) drug therapy
CPT/HCPCS: 36415; 82565; 82947; 97162; C1713; C9290; J0131; J0665; J0690; L8699

== ENCOUNTER → 2023-07-22 09:11 | Outpatient (BNV) | payer MEDICAID, SELFPAY | PROVIDERS: Admitting Provider Physician Assistant; PCP Internal Medicine; Visit Provider Neurological Surgery | DX: M51.16 Intervertebral disc disorders with radiculopathy, lumbar region (principal) | CPT/HCPCS: 20930; 22558; 22612; 22840; 22853; 63056; 99024; 99499 ==

== ENCOUNTER 2023-07-29 16:47 | Emergency (ER) | payer MEDICAID, SELFPAY ==
--- NOTE | ~2023-07-29 | XR_ITS ---
EXAMINATION: XR ABDOMEN KUB CLINICAL INDICATION: Constipation COMPARISON: CT abdomen pelvis 10/29/2022 and KUB 04/16/2022 TECHNIQUE: AP view of the abdomen. FINDINGS: The bowel gas pattern is normal with no evidence of ileus or obstruction. Moderate stool is present and is present in the colon, but less than on 04/16/2022. No unusual soft tissue calcifications are noted. The bones are unremarkable. XR/XR KUB IMPRESSION: Unremarkable examination.
[2023-07-29 16:59] VITALS: BP 172/98; PULSE 88; O2SAT 96
[2023-07-29 17:06] VITALS: BP 122/68; PULSE 83; RESP 16; TEMP 36.7; O2SAT 95; BMI 38.6
--- NOTE | 2023-07-29 17:30 | ED.GENADULT ---
HPI - General Adult General Chief complaint: Back Pain/Injury Stated complaint: back pain since rehab from 1 week ago Time Seen by Provider: 07/29/23 16:56 Source: patient, RN notes reviewed and old records reviewed Mode of arrival: EMS Limitations: no limitations History of Present Illness HPI narrative: 63-year-old female past medical history significant for chronic back pain, depression, fibromyalgia, diabetes, asthma presents for evaluation of back pain Patient had an L5-S1 fusion on 07/22/[address] Leon She states that she has had worsening pain to the surgical sites ever since then She was in the hospital for 1 day then discharged to rehab She was discharged home yesterday She reports that she has been taking Tylenol which has not been helping her pain Denies any fevers, chills She states that her pain radiates down her left side and leg Denies any numbness, tingling, bladder or bowel incontinence She reports that she is able to walk with a walker No other complaints or concerns at this time Related Data Home Medications Medication Instructions Recorded Confirmed ferrous sulfate 325 mg (65 mg 325 mg PO QWEEK 12/11/22 07/22/23 iron) tablet,delayed release melatonin 5 mg tablet 5 mg PO BEDTIME PRN Insomnia 12/11/22 07/22/23 metformin 500 mg tablet,extended 500 mg PO BID 12/11/22 07/22/23 release 24 hr trazodone 100 mg tablet 300 mg PO BEDTIME 12/11/22 07/22/23 fluticasone propionate 110 2 puff inhalation BID 07/09/23 07/22/23 mcg/actuation HFA aerosol inhaler gabapentin 300 mg capsule 300 mg PO TID pain 07/09/23 07/22/23 hydrochlorothiazide 50 mg tablet 50 mg QAM 07/21/23 07/22/23 venlafaxine 150 mg 300 mg PO DAILY 07/21/23 07/22/23 capsule,extended release 24 hr Previous Rx's Medication Instructions Recorded albuterol sulfate 90 mcg/actuation 2 puff PO Q4-6H PRN Wheezing 30 12/16/22 aerosol inhaler days #1 inhaler aripiprazole 10 mg tablet 10 mg PO DAILY 30 days #30 tabs 12/16/22 clonazepam 1 mg tablet 1 mg PO BID 30 days #60 tabs 12/16/22 lidocaine 5 % topical cream 1 appl topical BID PRN chronic 12/16/22 pain 30 days #15 grams linaclotide 145 mcg capsule 145 mcg PO DAILY 90 days #90 caps 01/08/23 (Linzess) omeprazole 20 mg capsule,delayed 20 mg PO BID 90 days #180 caps 01/08/23 release lidocaine 5 % topical patch 1 patch topical DAILY pain #30 ea 02/27/23 methocarbamol 750 mg tablet 750 mg PO BID PRN muscle spasm #60 02/27/23 tabs polyethylene glycol 3350 17 17 g PO DAILY #238 grams 07/29/23 gram/dose oral powder (Miralax) tramadol 50 mg tablet 50 mg PO Q6H PRN pain #12 tabs 07/29/23 Allergies Allergy/AdvReac Type Severity Reaction Status Date / Time morphine [MORPHINE] Allergy Intermediate PALPITATIONS, Verified 07/22/23 08:08 tachicardia quetiapine [Seroquel] Allergy Intermediate Aggitation Verified 07/22/23 08:08 orphenadrine [ORPHENADRINE] AdvReac Intermediate RAPID Verified 07/22/23 08:08 HEART RATE Review of Systems Constitutional: Constitutional: Denies body ache(s), Denies chills, Denies fever(s) and Denies headache(s) Eyes: Eyes: Denies blurry vision ENT: Denies headache(s) and Denies sore throat Cardiovascular: Cardiovascular: Denies chest pain and Denies dyspnea Respiratory: Respiratory: Denies cough and Denies dyspnea Gastrointestinal: Gastrointestinal: Denies abdominal pain, Denies nausea and Denies vomiting Musculoskeletal: Musculoskeletal: Reports back pain and Denies tingling Integumentary/Breasts: Skin/Breast: Denies rash Neurologic: Denies headache(s), Reports radicular pain and Denies tingling PMFSH Past Medical History Medical History (Updated 07/29/23 @ 17:35 by Tylor Covarrubias) Weakness Arthritis History of brain inflammation Protrusion of lumbar intervertebral disc Tinnitus Venous insufficiency Osteoarthritis Loss of hair History of headache Fibromyositis Fatigue Hyperlipidemia HTN (hypertension) Continuous opioid dependence Sinusitis Anemia Anxiety Diverticulosis Chronic idiopathic constipation Migraine Asthma Depression Diabetes 1.5, managed as type 2 Fibromyalgia Surgical History S/P panniculectomy Hx of hysterectomy Hx of oophorectomy Hx of bilateral breast reduction surgery H/O colonoscopy History of pubovaginal sling Gastric bypass status for obesity Family History Family History Mother Colon cancer Social History Social History Household Members: Spouse Household Members Other:: lives alone Housing: House Are you a primary child care centre director to a significant other at home: No Do you presently have visiting nurse or other home services: No Alcohol intake: unknown Comment: IV infiltrated Patient Tobacco Use Status: Never used Tobacco Smoked in Last 30 Days: No Second Hand Smoke Exposure: No Use of substances other than those prescribed or required for medical reasons: No Advance Directives: No Advance Directives Information Provided: No service: No Current occupational status: disabled Sexual orientation: Straight/Heterosexual Gender identity: Female Physical Exam ED Vital Signs: Vital Signs - 24 hr 07/29/23 17:06 Temperature 98.1 F Pulse Rate 83 Respiratory Rate 16 Blood Pressure 122/68 Pulse Oximetry 95 Oxygen Delivery Method Room Air BMI result Body Mass Index 38.6 Const General: healthy appearing, comfortable, no acute distress, alert and awake Nutritional Appearance: well nourished Orientation/consciousness: patient oriented x3 HENMT Head: Yes normocephalic and Yes atraumatic Eyes Eyelids: Yes eyelids normal Conjunctivae: conjunctivae normal Sclerae: sclerae normal Corneas: corneas normal Pupils: Equal, round and reactive pupils present EOM: EOMs intact bilaterally Neck Neck: Yes full ROM Resp Effort & Inspection: normal respiratory effort, able to speak in complete sentences and not labored GI Inspection: No distended Palpation (GI): Soft to palpation, not firm, nontender, no guarding and not rigid Back/Spine/Pelvis Other: Surgical sites to the lower back to lab Steri-Strips in place. There is no surrounding erythema, no drainage from the wounds. The area is tender to palpation without any edema or evidence of hematoma/abscess. Patient is able to flex and extend the lower extremities bilaterally. Skin General skin exam: elasticity normal Neuro General: patient oriented x3 Cranial nerves: Yes Equal, round and reactive pupils present and Yes Bilaterally intact EOM present Cognition (Neuro): normal cognition Motor exam (neuro): 5/5 motor strength present throughout and no tremor noted Extrem Other: Moving all extremities well without any obvious deformities Course Reevaluation(s) Reevaluation #1: Patient's workup largely unremarkable, no white count, slight elevation of inflammatory markers likely related to a recent surgery. I have low suspicion for infectious process. I did reach out to the patient's neuro spine team, Pj Jacobson as she was operated on 1 week ago the patient will likely remain a case management patient for physical therapy evaluation Time: 19:00 Reevaluation #2: Discussed with neurosurgery PA Pj Jacobson who feels no further workup is indicated as there is a low suspicion for infection. No further workup necessary for pain alone. He would like the patient to call the office tomorrow to schedule an appointment which I discussed with the patient. In the meantime, the patient in the ED overnight for consideration of rehab placement. Physician observation has started. The patient was prescribed Tylenol q.6 hours for pain. She can not take ibuprofen due to history of bariatric surgery Time: 19:25 Reevaluation #3: The patient met with the the case management team and would like to be discharged home. I agreed to give her a short course of tramadol to take in addition to her Tylenol but will not prescribe any other narcotics. I encouraged her to take MiraLax daily to help with her discomfort. Again, the patient will follow-up with her neurosurgical team Time: 19:51 Medications Administered Discontinued Medications Generic Name Dose Route Start Last Admin Trade Name Freq PRN Reason Stop Dose Admin Oxycodone HCl 5 mg 07/29/23 17:20 07/29/23 17:31 Oxycodone Hcl Immed Release 5 Mg Tablet PO 07/29/23 17:21 5 mg ONCE ONE Administration Medical Decision Making Medical Decision Making [facility] Narrative: 63-year-old female with history of chronic back pain presents for evaluation of worsening back pain postprocedure. Her exam is reassuring, the surgical sites do not appear infected. She has no fevers or chills to suggest spinal abscess. Plan for basic labs. Consider advanced imaging if the patient has a significantly elevated white count. Her vital signs are stable, low suspicion for infection. If medically cleared, the patient can be referred to physical therapy/case management. Differential Diagnosis Differential Diagnoses: The differential diagnosis associated with the presentation includes Chronic back pain Postop pain Radiculopathy Spinal abscess less likely Lab Data MDM Lab Attestation statement: I reviewed the patient's lab results. Patient has no leukocytosis. A mild anemia consistent with a baseline. She has a very slight elevation of her inflammatory markers consistent with a recent surgery. Not consistent with infection as the patient has no fever, no leukocytosis and vitals are otherwise stable. 07/29/23 17:36 07/29/23 17:36 Labs: Lab Results 07/29/23 Range/Units 17:36 WBC 8.8 (4.8-10.8) X10*3/uL RBC 3.88 L (4.20-5.50) X10*6/uL Hgb 9.8 L (12.0-16.0) g/dl Hct 31.1 L (37.0-47.0) % MCV 80.2 (80.0-98.0) fL MCH 25.3 L (27.0-33.0) pg MCHC 31.5 (31.0-35.0) g/dl RDW 16.1 H (11.0-16.0) % Plt Count 241 (160-400) X10*3/uL MPV 9.8 (9.4-12.3) fL Immature Gran % (Auto) 2.5 H (0.0-0.4) % Neut % (Auto) 63.8 (45-73) % Lymph % (Auto) 23.0 (20-40) % [place] % (Auto) 8.6 (2-11) % Eos % (Auto) 1.9 (0-4) % Baso % (Auto) 0.2 (0-2) % Lymph # (Auto) 2.0 (1.2-4.9) X10*3/uL [place] # (Auto) 0.8 (0.1-1.2) X10*3/uL Eos # (Auto) 0.2 (0.0-0.4) X10*3/uL Baso # (Auto) 0.0 (0.0-0.2) X10*3/uL Abs Immat Gran (auto) 0.22 H (0.00-0.03) X10*3/uL Absolute Neuts (auto) 5.6 (2.0-8.3) x10*3/uL Absolute Nucleated RBC 0.020 H (0.0-0.012) X10*3/uL Nucleated RBC % (auto) 0.2 (0.0-0.2) /100WBC ESR 42 H (0-20) MM/HR Sodium 139 (135-145) mmol/L Potassium 4.2 (3.3-5.1) mmol/L Chloride 104 (96-108) mmol/L Carbon Dioxide 27 (22-29) mmol/L Anion Gap 12 (12-20) BUN 18 H (9-16) mg/dL Creatinine 0.83 (0.5-1.4) mg/dL Estim Creat Clear Calc 85.7 Estimated GFR > 60 Random Glucose 142 H (60-115) mg/dL Calcium 9.1 (8.4-10.2) mg/dL Total Bilirubin 0.1 (0.0-1.0) mg/dL AST 12 (5-31) U/L ALT 8 (0-31) U/L Alkaline Phosphatase 76 (39-117) U/L C-Reactive Protein 1.64 H (< or = 0.50) mg/dL Total Protein 7.0 (6.5-8.0) g/dL Albumin 3.7 (3.5-5.0) g/dL Lipase 24 (8-78) U/L Discharge Plan Discharge Clinical Impression: Chronic back pain Patient Disposition: Home, Self-Care Instructions: Acute Low Back Pain (ED) Additional Instructions: It is expected to have continued pain for up to a few weeks after surgery Take Tylenol every 6 hours for your pain. You may use tramadol as needed for severe or breakthrough pain I recommend that you get up and walk using a walker at least every 4 hours Return for new or worsening symptoms, especially develop a fever Call the office of Dr. Leon tomorrow morning to schedule an appointment for later this week Make sure when you call tomorrow tell them that you were seen in the ER today Prescriptions: New tramadol 50 mg tablet 50 mg PO Q6H PRN (Reason: pain) Qty: 12 0RF polyethylene glycol 3350 [Miralax] 17 gram/dose powder 17 g PO DAILY Qty: 238 0RF No Action metformin 500 mg tablet extended release 24 hr 500 mg PO BID melatonin 5 mg tablet 5 mg PO BEDTIME PRN (Reason: Insomnia) trazodone 100 mg tablet 300 mg PO BEDTIME ferrous sulfate 325 mg (65 mg iron) tablet,delayed release (DR/EC) 325 mg PO QWEEK lidocaine 5 % cream 1 appl topical BID PRN (Reason: chronic pain) 30 Days Qty: 15 0RF clonazepam 1 mg tablet 1 mg PO BID 30 Days Qty: 60 0RF albuterol sulfate 90 mcg/actuation HFA aerosol inhaler 2 puff PO Q4-6H PRN (Reason: Wheezing) 30 Days Qty: 1 0RF aripiprazole 10 mg tablet 10 mg PO DAILY 30 Days Qty: 30 0RF gabapentin 300 mg capsule 300 mg PO TID fluticasone propionate 110 mcg/actuation Hfa Aerosol Inhaler 2 puff INHALATION BID hydrochlorothiazide 50 mg tablet 50 mg QAM venlafaxine 150 mg capsule,extended release 24hr 300 mg PO DAILY omeprazole 20 mg capsule,delayed release(DR/EC) 20 mg PO BID 90 Days Qty: 180 3RF Linzess 145 mcg capsule 145 mcg PO DAILY 90 Days Qty: 90 3RF methocarbamol 750 mg tablet 750 mg PO BID PRN (Reason: muscle spasm) Qty: 60 0RF lidocaine 5 % adhesive patch,medicated 1 patch topical DAILY Qty: 30 0RF Rx Instructions: ON FOR 12 HOURS THEN REMOVE FOR 12 HOURS Referrals: Andrés Leon MD, PhD [Physician] - (post op pain after fusion 07/22/23)
[2023-07-29] MEDS: oxyCODONE HCl Immed Release 5 MG TABLET PO (17:31)
[2023-07-29 17:44] LABS: MANUAL DIFF FLAG NO
[2023-07-29 17:47] LABS: Basophils Percent Auto 0.2 % (0-2); Eosinophils Absolute Auto 0.2 X10*3/uL (0.0-0.4); Eosinophils Percent Auto 1.9 % (0-4); Hematocrit 31.1 % (37.0-47.0); Hemoglobin 9.8 g/dl (12.0-16.0); Imm Gran Abs Auto 0.22 X10*3/uL (0.00-0.03); Imm Gran Pct Auto 2.5 % (0.0-0.4); Mean Corpuscular HGB Conc 31.5 g/dl (31.0-35.0); Mean Corpuscular Hemoglobin 25.3 pg (27.0-33.0); Mean Corpuscular Volume 80.2 fL (80.0-98.0); Mean Platelet Volume 9.8 fL (9.4-12.3); Monocytes Absolute Auto 0.8 X10*3/uL (0.1-1.2); Monocytes Percent Auto 8.6 % (2-11); NRBC Pct Auto 0.2 /100WBC (0.0-0.2); Neutrophils Absolute Auto 5.6 x10*3/uL (2.0-8.3); Neutrophils Percent Auto 63.8 % (45-73); Platelet Count 241 X10*3/uL (160-400); Red Blood Count 3.88 X10*6/uL (4.20-5.50); Red Cell Distribution Width 16.1 % (11.0-16.0); White Blood Count 8.8 X10*3/uL (4.8-10.8)
[2023-07-29 18:00] LABS: Alanine Aminotransferase 8 U/L (0-31); Albumin Level 3.7 g/dL (3.5-5.0); Alkaline Phosphatase 76 U/L (39-117); Anion Gap 12 (12-20); Aspartate Amino Transferase 12 U/L (5-31); Bilirubin Total 0.1 mg/dL (0.0-1.0); Blood Urea Nitrogen 18 mg/dL (9-16); C Reactive Protein 1.64 mg/dL (< or = 0.50); Calcium 9.1 mg/dL (8.4-10.2); Carbon Dioxide 27 mmol/L (22-29); Chloride 104 mmol/L (96-108); Creatinine Clr Calc Pharmacy 85.7; Estimated Glomerular Filt Rate > 60; Glucose Random 142 mg/dL (60-115); Lipase 24 U/L (8-78); Potassium 4.2 mmol/L (3.3-5.1); Sodium 139 mmol/L (135-145)
[2023-07-29 18:19] LABS: Erythrocyte Sedimentation Rate 42 MM/HR (0-20)
--- NOTE | 2023-07-29 18:29 | PC.NURSE ---
Patient intermittently restless on the stretcher, continued c/o pain, patient informed she has to give some time for pain medication to work.
[2023-07-29] MEDS: traMADoL HCL 50 MG TABLET PO (20:06)
[2023-07-29 20:28] VITALS: BP 153/80; PULSE 91; RESP 18; TEMP -17.7; TEMP 0; O2SAT 94
--- NOTE | 2023-07-29 20:42 | MHC.CM.ED ---
CM met with patient at the request of Kishore DENISE. Pt had recent lumbar fusion on 07/[address] Leon and was discharged on 07/22 to [facility]. Pt was discharged home yesterday. A&Ox4. Lives with family. Has walker. Pt has [employer] 3 hours/day daily. Lives with her . Pt is agreeable to calling tomorrow for f/u appointment on or Friday. Is agreeable to trying tramadol every 6 hours and tylenol around the clock. Encouraged patient to both ambulate and rest, alternating. Pt is agreeable to going home. Pt did not think rehab was much help, stating that she was doing most of the rehab herself. Provider aware of patient decision.
== END 2023-07-29 20:30 | disposition home or self-care (01) ==
PROVIDERS: Physician Assistant; Emergency Provider Internal Medicine
DX: M54.59 Other low back pain (principal); M79.7 Fibromyalgia; M79.605 Pain in left leg; R10.32 Left lower quadrant pain; Z79.899 Other long term (current) drug therapy
CPT/HCPCS: 36415; 74018; 80053; 83690; 85025; 85652; 86140; 99284

== ENCOUNTER 2023-07-31 13:23 | Emergency (ER) | payer MEDICAID, SELFPAY ==
[2023-07-31 13:36] VITALS: BP 120/47; BP 152/96; PULSE 84; PULSE 85; RESP 20; TEMP 36.8; O2SAT 95; O2SAT 96; BMI 37.4
--- NOTE | 2023-07-31 13:46 | ED.BACK ---
HPI - Back Pain/Injury General Chief Complaint: Back Pain/Injury Stated Complaint: BACK PAIN Time Seen by Provider: 07/31/23 13:43 Source: patient and EMS Mode of arrival: EMS Limitations: no limitations History of Present Illness HPI Narrative: 63 yo female with history of lumbar DDD, lumbar radiculopathy, chronic pain syndrome, s/p L5-S1 Transkambin Lumbar Fusion on07/21 who was discharged to rehab w/ oxycodone presents back to the ER today for ongoing back pain. It is 02/18 and no medications are working. She was seen here in the ER on 07/28 and was discharged with tramadol. She states it does not work, last took it this morning. She states the oxycodone she was prescribed also did not help her pain. She does not know when she has a follow up appointment with Dr. Leon. The pain is severe, sharp and in her lower back. It is radiating down her left leg which is new since surgery. She is able to walk. No weakness. No numbness or tingling. MD elicited complaint: back pain Pertinent past history: prior back pain and back surgery Onset (ago): week(s) Timing: constant Severity: severe Pain scale (0-10): 10 Quality: sharp Location: lumbar spine Radiation: right upper leg Exacerbating factors: movement Relieving factors: none Associated symptoms: difficulty walking Treatments prior to arrival: acetaminophen and prescription analgesics Work related injury: No Related Data Home Medications Medication Instructions Recorded Confirmed ferrous sulfate 325 mg (65 mg 325 mg PO QWEEK 12/11/22 07/22/23 iron) tablet,delayed release melatonin 5 mg tablet 5 mg PO BEDTIME PRN Insomnia 12/11/22 07/22/23 metformin 500 mg tablet,extended 500 mg PO BID 12/11/22 07/22/23 release 24 hr trazodone 100 mg tablet 300 mg PO BEDTIME 12/11/22 07/22/23 fluticasone propionate 110 2 puff inhalation BID 07/09/23 07/22/23 mcg/actuation HFA aerosol inhaler gabapentin 300 mg capsule 300 mg PO TID pain 07/09/23 07/22/23 hydrochlorothiazide 50 mg tablet 50 mg QAM 07/21/23 07/22/23 venlafaxine 150 mg 300 mg PO DAILY 07/21/23 07/22/23 capsule,extended release 24 hr Previous Rx's Medication Instructions Recorded albuterol sulfate 90 mcg/actuation 2 puff PO Q4-6H PRN Wheezing 30 12/16/22 aerosol inhaler days #1 inhaler aripiprazole 10 mg tablet 10 mg PO DAILY 30 days #30 tabs 12/16/22 clonazepam 1 mg tablet 1 mg PO BID 30 days #60 tabs 12/16/22 lidocaine 5 % topical cream 1 appl topical BID PRN chronic 12/16/22 pain 30 days #15 grams linaclotide 145 mcg capsule 145 mcg PO DAILY 90 days #90 caps 01/08/23 (Linzess) omeprazole 20 mg capsule,delayed 20 mg PO BID 90 days #180 caps 01/08/23 release lidocaine 5 % topical patch 1 patch topical DAILY pain #30 ea 02/27/23 methocarbamol 750 mg tablet 750 mg PO BID PRN muscle spasm #60 02/27/23 tabs polyethylene glycol 3350 17 17 g PO DAILY #238 grams 07/29/23 gram/dose oral powder (Miralax) tramadol 50 mg tablet 50 mg PO Q6H PRN pain #12 tabs 07/29/23 acetaminophen 500 mg tablet 1,000 mg (2 x 500 mg) PO Q6H PRN 07/31/23 moderate pain (scale score 5-6) #60 tabs oxycodone 5 mg tablet 5 mg PO Q6H PRN severe pain (scale 07/31/23 score 7-10) #30 tabs Allergies Allergy/AdvReac Type Severity Reaction Status Date / Time morphine [MORPHINE] Allergy Intermediate PALPITATIONS, Verified 07/31/23 13:36 tachicardia quetiapine [Seroquel] Allergy Intermediate Aggitation Verified 07/31/23 13:36 orphenadrine [ORPHENADRINE] AdvReac Intermediate RAPID Verified 07/31/23 13:36 HEART RATE Review of Systems Review of Systems: Yes all other systems are reviewed and are negative [facility] Past Medical History Medical History (Updated 07/31/23 @ 15:44 by CAMELIA Camarillo) Weakness Arthritis History of brain inflammation Protrusion of lumbar intervertebral disc Tinnitus Venous insufficiency Osteoarthritis Loss of hair History of headache Fibromyositis Fatigue Hyperlipidemia HTN (hypertension) Continuous opioid dependence Sinusitis Anemia Anxiety Diverticulosis Chronic idiopathic constipation Migraine Asthma Depression Diabetes 1.5, managed as type 2 Fibromyalgia Surgical History S/P panniculectomy Hx of hysterectomy Hx of oophorectomy Hx of bilateral breast reduction surgery H/O colonoscopy History of pubovaginal sling Gastric bypass status for obesity Family History Family History Mother Colon cancer Social History Social History Household Members: Spouse Household Members Other:: lives alone Housing: House Are you a primary technical healthcare consultant to a significant other at home: No Do you presently have visiting nurse or other home services: No Alcohol intake: unknown Comment: IV infiltrated Patient Tobacco Use Status: Never used Tobacco Second Hand Smoke Exposure: No service: No Current occupational status: disabled Sexual orientation: Straight/Heterosexual Gender identity: Female Physical Exam Vital Signs: Vital Signs: Last Vital Signs Temp 98.1 F 07/31/23 15:57 Pulse 88 07/31/23 15:57 Resp 20 07/31/23 15:57 BP 124/53 L 07/31/23 15:57 Pulse Ox 97 07/31/23 15:57 O2 Del Method Room Air 07/31/23 15:57 BMI result Body Mass Index 37.4 Appearance: Alert. Oriented X3. moaning in pain Head: normocephalic, atraumatic. Eyes: Pupils equal, round and reactive to light. ENT: Pharynx normal. No tonsillar swelling or exudate. Neck: Normal inspection. Neck supple. CVS: Normal heart rate and rhythm. Pulses normal. Respiratory: No respiratory distress. Breath sounds normal. Abdomen: Soft and nontender. +BS x4 Back: surgical scars lumbar area c/w recent surgery, no surrounding erythema or warmth, no drainage. tender throughout. Skin: Skin warm and dry. Normal skin color. Normal skin turgor. No rashes. Extremities: No lower extremity edema. No joint swelling. small area of ecchymosis in left calf Neuro/psych: Oriented X 3. slow but steady gait. Course Reevaluation(s) Reevaluation #1: pain improved. VSS. tolerated dilaudid well stable for d/c Time: 15:40 Medications Administered Discontinued Medications Generic Name Dose Route Start Last Admin Trade Name Nathanielq PRN Reason Stop Dose Admin Hydromorphone HCl 2 mg 07/31/23 14:57 07/31/23 15:19 Hydromorphone Hcl 2 Mg/Ml Vial IM 07/31/23 14:58 2 mg ONCE ONE Administration Protocol Medical Decision Making Medical Decision Making MDM Narrative: 63 yo female with history of lumbar DDD, lumbar radiculopathy, chronic pain syndrome, s/p L5-S1 Transkambin Lumbar Fusion on 07/21 who was discharged to rehab w/ oxycodone presents back to the ER today for ongoing back pain, 02/18 and refractory to oxycodone and tramadol. no improvement with tylenol. patient moaning in pain and appeared very uncomfortable. case d/w Dr. Holder - NAVID wynne given with improvement in pain. case d/w Pj DENISE who came to evaluate the patient in the ER. he discussed at length pain management plan and made an appointment with her in the clinic tomorrow at 10am. meds sent to [facility] pharmacy for bead picker today. patient will pick them up before going home. Differential Diagnosis Differential Diagnoses: The differential diagnosis associated with the presentation includes post op pain, infection, hardware malfunction Admission/Observation Consideration of admission/observation: Escalation of care including admission/observation considered 2nd visit for poor pain control. Consult Healthcare Provider Management of the patient was discussed with: Energy Conservation Technician Dr. Carolyn paganted for recommendations - CAMELIA Oliva came to see the patient in the ER Independent Historian Clinical information obtained from an independent historian. History obtained from or confirmed by: EMS External Record Review External record reviewed: Inpatient record, Outpatient record and Prior outpatient labs Tests considered The following testing was considered but not selected: considered xray to assess hardware Prescription Management I considered prescription management with: Pain Medication Chronic Conditions Patient?s care impacted by: Other (chronic pain syndrome) Critical Care Time Critical Care Time Critical Care Time: Yes Total Critical Care Time: 31 Attestation: I have personally provided critical care time exclusive of time spent on separately billable procedures. Time includes review of inpatient stay, radiology results, discussion with consultants, and monitoring for potential decompensation. Intervention performed as documented. Discharge Plan Discharge Clinical Impression: Postoperative back pain Patient Disposition: Home, Self-Care Instructions: Pain Management After Surgery (DC) Additional Instructions: Follow up with Neurosurgery Clinic tomorrow at 10AM! Take the medications as prescribed Prescriptions: No Action oxycodone 5 mg tablet 5 mg PO Q6H PRN (Reason: severe pain (scale score 7-10)) Qty: 30 0RF Rx Instructions: Partial Fill upon patient request. acetaminophen 500 mg tablet 1,000 mg PO Q6H PRN (Reason: moderate pain (scale score 5-6)) Qty: 60 0RF metformin 500 mg tablet extended release 24 hr 500 mg PO BID melatonin 5 mg tablet 5 mg PO BEDTIME PRN (Reason: Insomnia) trazodone 100 mg tablet 300 mg PO BEDTIME ferrous sulfate 325 mg (65 mg iron) tablet,delayed release (DR/EC) 325 mg PO QWEEK lidocaine 5 % cream 1 appl topical BID PRN (Reason: chronic pain) 30 Days Qty: 15 0RF clonazepam 1 mg tablet 1 mg PO BID 30 Days Qty: 60 0RF albuterol sulfate 90 mcg/actuation HFA aerosol inhaler 2 puff PO Q4-6H PRN (Reason: Wheezing) 30 Days Qty: 1 0RF aripiprazole 10 mg tablet 10 mg PO DAILY 30 Days Qty: 30 0RF gabapentin 300 mg capsule 300 mg PO TID fluticasone propionate 110 mcg/actuation Hfa Aerosol Inhaler 2 puff INHALATION BID hydrochlorothiazide 50 mg tablet 50 mg QAM venlafaxine 150 mg capsule,extended release 24hr 300 mg PO DAILY tramadol 50 mg tablet 50 mg PO Q6H PRN (Reason: pain) Qty: 12 0RF polyethylene glycol 3350 [Miralax] 17 gram/dose powder 17 g PO DAILY Qty: 238 0RF omeprazole 20 mg capsule,delayed release(DR/EC) 20 mg PO BID 90 Days Qty: 180 3RF Linzess 145 mcg capsule 145 mcg PO DAILY 90 Days Qty: 90 3RF methocarbamol 750 mg tablet 750 mg PO BID PRN (Reason: muscle spasm) Qty: 60 0RF lidocaine 5 % adhesive patch,medicated 1 patch topical DAILY Qty: 30 0RF Rx Instructions: ON FOR 12 HOURS THEN REMOVE FOR 12 HOURS Referrals: Andrés Leon MD, PhD [Physician] - Interventions: ED Discharge Assessment Last Done: 07/31/23 15:57 Discharge Date/Time: 07/31/23 15:57
--- NOTE | 2023-07-31 14:54 | PC.NURSE ---
patient c/o feeling like she is suffocating, this nurse obtained O2 sat which was 96%, pt speaking in full sentences and ambulating in room.
[2023-07-31 14:55] VITALS: RESP 20; O2SAT 96
[2023-07-31] MEDS: HYDROmorphone HCl 2 MG/ML VIAL IM (15:19)
--- NOTE | 2023-07-31 15:21 | PC.NURSE ---
patient medicated for 10/10 back pain
--- NOTE | 2023-07-31 15:56 | PC.NURSE ---
patient a&ox3, neurosurgery office came to see pt and pt will go to clinic tom at 10 am, pt states she feels more comfortable but her pain is 9/10, vss, pt to discharge home
[2023-07-31 15:57] VITALS: BP 124/53; PULSE 88; RESP 20; TEMP 36.7; O2SAT 97
== END 2023-07-31 15:57 | disposition home or self-care (01) ==
PROVIDERS: Emergency Provider Emergency Medicine; PCP Internal Medicine
DX: M54.50 Low back pain, unspecified (principal); R26.2 Difficulty in walking, not elsewhere classified; Z79.899 Other long term (current) drug therapy
CPT/HCPCS: 96372; 99282; 99284; J1170

== ENCOUNTER 2023-08-01 09:07 | Outpatient (AMB) | payer MEDICAID, SELFPAY ==
--- NOTE | 2023-08-01 09:31 | A.SPINEOV_ITS ---
Intake Intake Visit Reasons: Per Pj Intake Note: Ms. Rivas is here today for ER F/u Paddock Judge Required: No Allergies morphine [MORPHINE] Allergy (Intermediate, Verified 07/31/23 13:36) PALPITATIONS, tachicardia quetiapine [Seroquel] Allergy (Intermediate, Verified 07/31/23 13:36) Aggitation orphenadrine [ORPHENADRINE] Adverse Reaction (Intermediate, Verified 07/31/23 13:36) RAPID HEART RATE Assessment & Plan Assessment & Plan (1) Postoperative back pain: Code(s): G89.18 - Other acute postprocedural pain; M54.9 - Dorsalgia, unspecified Plan Lelo comes in today for an evaluation post emergency department. Yesterday after I evaluated her in the emergency department I had her added to my schedule for this morning. She returned home last night and unfortunately did not brain picker her medications that were called into [facility] [place] [facility] pharmacy. I informed her that the medications were at [facility] [facility] pharmacy, and also wrote down on a piece of paper that the medications were at this pharmacy to be picked up as soon as she left the emergency department. She states she has been in pain since yesterday. I explained to the patient that her medications were at the pharmacy across the street that she needs to go and pick them up immediately after this appointment and begin taking them. I also had one of our macanese speaking staff relay this information to the individual who accompanied her to this visit today, whom only spoke macanese. He relayed understanding of how important this is in order for her to have pain control and not need to seek emergency services. I ordered a set of standing x-rays for Lelo today and reviewed them/compared them to fluoroscopy from surgery. She has stable instrumentation that shows no changes from surgery. I strongly recommend that Lelo follow up with her primary care physician regarding her recent episodes of forgetfulness since her surgery. It seems that she has been relayed information by both this telegraphic typewriter repairer and emergency department staff multiple times, and has had a difficult time retaining the information and executing the plans. She left acute rehab after 3 days which she should have been inpatient at for 3-4 weeks, she never picked up any pain medications post- operatively, and she has been to the emergency department x 2 in the last few days via EMS. I will be cc'ing her primary care physician to this office note. Lelo is otherwise doing well and reports low back pain is her only concern. She has no new neurological deficits and her incision sites are healing well. I relayed this plan to the attending neurosurgeon Dr. Leon who is in agreement. Pj Leon MD,PhD [facility] Orders: Orders XR lumbar spine 4V min Today G89.18 - Other acute postprocedural pain, M54.9 - Dorsalgia, unspecified Coding Level of Care Code Global (13365) Diagnoses Postoperative back pain G89.18; M54.9
== END 2023-08-01 09:46 | disposition home or self-care (01) ==
PROVIDERS: PCP Internal Medicine; Visit Provider Physician Assistant
DX: G89.18 Other acute postprocedural pain (principal); M54.9 Dorsalgia, unspecified
CPT/HCPCS: 99024

== ENCOUNTER 2023-08-01 09:07 | Outpatient (REF) | payer MEDICAID, SELFPAY ==
--- NOTE | ~2023-08-01 | XR_ITS ---
EXAMINATION: XR LUMBOSACRAL SPINE WITH OBLIQUES CLINICAL INFORMATION: Postprocedural pain COMPARISON: 07/22/2023 TECHNIQUE: AP, both oblique, and lateral views of the lumbar spine. Lateral view of the lumbosacral junction. FINDINGS: Surgical hardware present and secures L5-S1. Hardware intact. Alignment is preserved. Flexion and extension views are obtained which show no subluxation or instability. XR/XR lumbar spine 4V min IMPRESSION: Postsurgical appearance as described. Hardware is intact.
== END 2023-08-01 09:08 | disposition home or self-care (01) ==
LOC: HO.HOSX 09:07
PROVIDERS: PCP Internal Medicine; Visit Provider Physician Assistant
DX: G89.18 Other acute postprocedural pain (principal); M54.9 Dorsalgia, unspecified
CPT/HCPCS: 72110; 99212

== ENCOUNTER 2023-08-04 17:12 | Inpatient (IN) | payer MEDICAID, OTHER, SELFPAY ==
--- NOTE | ~2023-08-04 | US_ITS ---
EXAMINATION: US VENOUS ULTRASOUND WITH DOPPLER LOWER EXTREMITY, LEFT CLINICAL INFORMATION: Back surgery 2 weeks ago. Left calf pain and tenderness COMPARISON: Bilateral lower leg ultrasound venous study 05/10/2022 TECHNIQUE: Ultrasound of the deep veins is performed from the hip to the calf with compression sonography and color and pulse Doppler assessment. Spectral analysis with color-flow imaging is performed. FINDINGS: There is normal venous compression and respiratory variation and augmented flow. The visualized common femoral vein, superficial femoral vein, profunda femoral vein, popliteal vein, and the trifurcation region shows no evidence of deep venous thrombosis. There is no significant popliteal fossa cyst. If the patient's symptoms persist, followup ultrasound in 5 days 7 days might be of value to exclude proximal propagation from a non-visualized calf vein. US/US venous duplex LE IMPRESSION: No DVT demonstrated in the left lower extremity.
[2023-08-04 17:55] VITALS: BP 142/88; PULSE 82; RESP 18; TEMP 36.6; O2SAT 97; BMI 33.3
--- NOTE | 2023-08-04 18:15 | ED.GENADULT ---
HPI - General Adult General Chief complaint: Psychiatric Symptoms Stated complaint: BACK & L KNEE PAIN S/P BACK SYRGERY,HALLUCINATIONS Time Seen by Provider: 08/04/23 18:13 Source: patient Mode of arrival: EMS Limitations: no limitations History of Present Illness HPI narrative: Patient is a 63-year-old female who presents emergency department for evaluation of acute on chronic lower back pain radiating to her left leg predominantly below the left knee and into the foot. Reports her pain is 10/10. She last took oxycodone yesterday afternoon 16:30 reports no improvement in pain. She was also recently seen in the emergency department received prescription for tramadol which she stated did not help her pain. She reports that she has not yet called her back surgeon to discuss this, she reports that she presented to her primary care doctor's office today without any scheduled appointment and was upset that they would not see her despite her severe pain. She reports that prior to surgery she did not have pain to the lateral leg. Denies fevers, chills, numbness or tingling to extremities, bladder bowel dysfunction, inability to ambulate, chest pain, shortness of breath denies personal history of DVT PE. She reports that she had her granddaughter look her leg today expresses concern that her left foot was swollen when compared to the right. Additionally, she is having auditory and visual hallucinations. She states that this has happened once before she believes this was a little over 6 months ago and she was seen in the hospital at that time does not recall why this was happening. She reports she is hearing voices that ?are trying to come through me like you are at a parking lot of people are talking? she then states she is having visual hallucinations of people trying to shove her and then they just disappear . She denies any command component to these hallucinations. She denies SI/HI. She denies any recreational drug or alcohol usage. Related Data Home Medications Medication Instructions Recorded Confirmed metformin 500 mg tablet,extended 500 mg PO BID 12/11/22 08/05/23 release 24 hr trazodone 100 mg tablet 300 mg PO BEDTIME 12/11/22 08/05/23 gabapentin 300 mg capsule 300 mg PO TID pain 07/09/23 08/05/23 hydrochlorothiazide 50 mg tablet 50 mg QAM 07/21/23 08/05/23 venlafaxine 150 mg 225 mg PO DAILY 07/21/23 08/05/23 capsule,extended release 24 hr Previous Rx's Medication Instructions Recorded albuterol sulfate 90 mcg/actuation 2 puff PO Q4-6H PRN Wheezing 30 12/16/22 aerosol inhaler days #1 inhaler aripiprazole 10 mg tablet 10 mg PO DAILY 30 days #30 tabs 12/16/22 clonazepam 1 mg tablet 1 mg PO BID 30 days #60 tabs 12/16/22 polyethylene glycol 3350 17 17 g PO DAILY #238 grams 07/29/23 gram/dose oral powder (Miralax) Allergies Allergy/AdvReac Type Severity Reaction Status Date / Time morphine [MORPHINE] Allergy Intermediate PALPITATIONS, Verified 07/31/23 13:36 tachicardia quetiapine [Seroquel] Allergy Intermediate Aggitation Verified 07/31/23 13:36 orphenadrine [ORPHENADRINE] AdvReac Intermediate RAPID Verified 07/31/23 13:36 HEART RATE Review of Systems Review of Systems: Yes all other systems are reviewed and are negative PMFSH Past Medical History Attestation statement: The following information was validated with the patient. Source: old records reviewed Medical History Weakness Arthritis History of brain inflammation Protrusion of lumbar intervertebral disc Tinnitus Venous insufficiency Osteoarthritis Loss of hair History of headache Fibromyositis Fatigue Hyperlipidemia HTN (hypertension) Continuous opioid dependence Sinusitis Anemia Anxiety Diverticulosis Chronic idiopathic constipation Migraine Asthma Depression Diabetes 1.5, managed as type 2 Fibromyalgia Surgical History S/P panniculectomy Hx of hysterectomy Hx of oophorectomy Hx of bilateral breast reduction surgery H/O colonoscopy History of pubovaginal sling Gastric bypass status for obesity Family History Family History Mother Colon cancer Social History Social History Household Members: Spouse Household Members Other:: lives alone Housing: House Are you a primary veterinarian laboratory animal care to a significant other at home: No Do you presently have visiting nurse or other home services: No Alcohol intake: unknown Comment: IV infiltrated Patient Tobacco Use Status: Never used Tobacco Second Hand Smoke Exposure: No Advance Directives: No Advance Directives Information Provided: No service: No Current occupational status: disabled Sexual orientation: Straight/Heterosexual Gender identity: Female Physical Exam ED Vital Signs: Vital Signs - 24 hr 08/04/23 17:55 08/04/23 21:51 Temperature 97.8 F 98.6 F Pulse Rate 82 82 Respiratory Rate 18 16 Blood Pressure 142/88 H 144/58 H Pulse Oximetry 97 94 Oxygen Delivery Method Room Air Room Air BMI result Body Mass Index 33.3 Appearance: Alert.?Oriented to person, place and time. Yelling in pain. Eyes: Pupils equal, round and reactive to light.? ENT: Pharynx normal.?? Neck: Normal inspection.? Neck supple.?? CVS: Heart sounds normal. Normal heart rate and rhythm.? Pulses normal.?? Respiratory: No respiratory distress.? Lung sounds clear to auscultation bilaterally?? Abdomen: Soft and non-tender. Normoactive bowel sounds. Back: Healing surgical scar with the lumbar region consistent with recent surgery. No warmth, active drainage, erythema, edema. Tenderness upon palpation throughout the lower lumbar region. Skin: Skin warm and dry.? Normal skin color.? Normal skin turgor.?? Extremities: No lower extremity edema.? Left calf tenderness upon palpation. 2+ DP/PT pulse bilaterally. Neuro: Moves all extremities spontaneously. Sensation intact bilaterally. No focal neuro deficits. Ambulates with slow but steady gait. Course Reevaluation(s) Reevaluation #1: CBC is without leukocytosis, microcytic anemia consistent with baseline. No electrolyte derangement, no MITALI. Urinalysis is without evidence of infection. Ultrasound is without evidence of DVT. Pain is currently 3/10. Resting on stretcher without complication. No focal neurological deficits upon examination, clinically have low suspicion for cauda equina syndrome. Suspect pain secondary to lumbar radiculopathy versus chronic pain syndrome versus anticipated postoperative pain. She will be referred for evaluation to care team for evaluation of her auditory hallucinations and delusions. She is stable at this time. Time: 21:54 Reevaluation #2: Physician observation continued. Uneventful night. Vital signs stable. No complaints from nursing overnight. Med reconciliation reviewed and done. Pending disposition. Will continue to monitor. Medications Administered Generic Name Dose Route Start Last Admin Trade Name Freq PRN Reason Stop Dose Admin Gabapentin 300 mg 08/05/23 00:00 08/05/23 00:21 Gabapentin 300 Mg Capsule PO 300 mg BID HARLEY Administration Oxycodone HCl 5 mg 08/04/23 23:55 08/05/23 00:21 Oxycodone Hcl Immed Release 5 Mg Tablet PO 5 mg Q6H PRN Administration Pain, Severe (Pain Scale 7-10) Trazodone HCl 300 mg 08/05/23 21:00 08/05/23 01:24 Trazodone Hcl 100 Mg Tablet PO 300 mg BEDTIME HARLEY Administration Discontinued Medications Generic Name Dose Route Start Last Admin Trade Name Freq PRN Reason Stop Dose Admin Hydromorphone HCl 2 mg 08/04/23 18:46 08/04/23 19:56 Hydromorphone Hcl 2 Mg/Ml Vial IM 08/04/23 18:47 2 mg ONCE ONE Administration Protocol Medical Decision Making Medical Decision Making MDM Narrative: Patient is a 63-year-old female with past medical history of lumbar DDD, lumbar radiculopathy, chronic pain syndrome, s/p L5-S1 Lumbar Fusion on 07/22/23. 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 Unfortunately she left inpatient rehab early, only completed 3 days rather than the recommended 3-4 weeks postoperatively. Upon review of clinic note, she was having episodes of forgetfulness since her surgery was advised to follow-up with her primary care provider. She is responded previously well to hydromorphone IM will trial a single dose here and re-evaluate. She will likely require to be placed in physician observation so that care team evaluation can ensue regarding her auditory hallucinations and delusions. Differential Diagnosis Differential Diagnoses: The differential diagnosis associated with the presentation includes (Postoperative pain, hardware malfunction, DVT) Admission/Observation Consideration of admission/observation: Escalation of care including admission/observation considered (Multiple prior visits for poor pain control) Consult Healthcare Provider Management of the patient was discussed with: Financial Representative (Spoke with neuro spine surgeon Dr. Leon - his office will reach out to patient directly to discuss further management) and Behavioral Health Provider (See narrative above) Lab Data MDM Lab Attestation statement: I reviewed the patient's lab results. (See course narrative) 08/04/23 19:51 08/04/23 19:51 Labs: Lab Results 08/04/23 08/04/23 Range/Units 18:29 19:51 WBC 8.2 (4.8-10.8) X10*3/uL RBC 3.64 L (4.20-5.50) X10*6/uL Hgb 9.1 L (12.0-16.0) g/dl Hct 29.8 L (37.0-47.0) % MCV 81.9 (80.0-98.0) fL MCH 25.0 L (27.0-33.0) pg MCHC 30.5 L (31.0-35.0) g/dl RDW 16.1 H (11.0-16.0) % Plt Count 261 (160-400) X10*3/uL MPV 9.6 (9.4-12.3) fL Immature Gran % (Auto) 0.9 H (0.0-0.4) % Neut % (Auto) 66.2 (45-73) % Lymph % (Auto) 23.6 (20-40) % [place] % (Auto) 6.8 (2-11) % Eos % (Auto) 2.3 (0-4) % Baso % (Auto) 0.2 (0-2) % Lymph # (Auto) 1.9 (1.2-4.9) X10*3/uL [place] # (Auto) 0.6 (0.1-1.2) X10*3/uL Eos # (Auto) 0.2 (0.0-0.4) X10*3/uL Baso # (Auto) 0.0 (0.0-0.2) X10*3/uL Abs Immat Gran (auto) 0.07 H (0.00-0.03) X10*3/uL Absolute Neuts (auto) 5.5 (2.0-8.3) x10*3/uL Absolute Nucleated RBC 0.000 (0.0-0.012) X10*3/uL Nucleated RBC % (auto) 0.0 (0.0-0.2) /100WBC PT 11.0 L (11.1-13.3) SEC INR 0.9 (0.9-1.1) Sodium 140 (135-145) mmol/L Potassium 3.9 (3.3-5.1) mmol/L Chloride 101 (96-108) mmol/L Carbon Dioxide 30 H (22-29) mmol/L Anion Gap 13 (12-20) BUN 17 H (9-16) mg/dL Creatinine 0.79 (0.5-1.4) mg/dL Estim Creat Clear Calc 83.1 Estimated GFR > 60 Random Glucose 99 (60-115) mg/dL Calcium 8.8 (8.4-10.2) mg/dL Total Bilirubin 0.2 (0.0-1.0) mg/dL AST 12 (5-31) U/L ALT 9 (0-31) U/L Alkaline Phosphatase 113 (39-117) U/L Total Protein 6.9 (6.5-8.0) g/dL Albumin 3.8 (3.5-5.0) g/dL Urine Color Yellow Urine Appearance Clear Urine pH 5.0 (5.0-9.0) Ur Specific [place] 1.025 (1.005-1.025) Urine Protein Negative (Neg-Trace) mg/dL Urine Glucose (UA) Negative (Negative) mg/dL Urine Ketones Negative (Negative) mg/dL Urine Blood Negative (Negative) Urine Nitrite Negative (Negative) Ur Leukocyte Esterase Negative (Negative) Urine RBC 0-2 (0-2) /HPF Urine WBC 0-5 (0-5) /HPF Ur Squamous Epith Cells 0-2 (0-2) /HPF Urine Bacteria None Seen (None Seen) Hyaline Casts 3-5 (0-2) /LPF Urine Opiates Screen POSITIVE H (Not Detect) Urine Fentanyl Screen Not Detected (Not Detect) Ur Barbiturates Screen Not Detected (Not Detect) Ur Phencyclidine Scrn Not Detected (Not Detect) Ur Amphetamines Screen Not Detected (Not Detect) U Benzodiazepines Scrn Not Detected (Not Detect) Urine Cocaine Screen Not Detected (Not Detect) U Marijuana (THC) Screen Not Detected (Not Detect) Independent Interpretation I performed an independent interpretation of an: Ultrasound (No DVT) Radiology Impression Discussion of test interpretation with radiology: I have reviewed the radiologist's reading. Radiologist Impression: US/US venous duplex LE LT IMPRESSION: No DVT demonstrated in the left lower extremity. Independent Historian Clinical information obtained from an independent historian. History obtained from or confirmed by: EMS External Record Review External record reviewed: Inpatient record, Outpatient record and Prior outpatient radiology Critical Care Time Critical Care Time Critical Care Time: Yes Total Critical Care Time: 40 Attestation: I personally attest to this critical care time spent taking care of the patient exclusive of all other billable procedures was approximately 40 minutes including initial evaluation of patient, ordering tests, IV pain medications and orders, medical consultation, documentation, re-evaluation. Discharge Plan Discharge Clinical Impression: Postoperative back pain, Lumbar radiculopathy, Auditory hallucinations Patient Disposition: Still a Patient Prescriptions: No Action metformin 500 mg tablet extended release 24 hr 500 mg PO BID trazodone 100 mg tablet 300 mg PO BEDTIME clonazepam 1 mg tablet 1 mg PO BID 30 Days Qty: 60 0RF albuterol sulfate 90 mcg/actuation HFA aerosol inhaler 2 puff PO Q4-6H PRN (Reason: Wheezing) 30 Days Qty: 1 0RF aripiprazole 10 mg tablet 10 mg PO DAILY 30 Days Qty: 30 0RF gabapentin 300 mg capsule 300 mg PO TID hydrochlorothiazide 50 mg tablet 50 mg QAM venlafaxine 150 mg capsule,extended release 24hr 225 mg PO DAILY polyethylene glycol 3350 [Miralax] 17 gram/dose powder 17 g PO DAILY Qty: 238 0RF Interventions: [place]-Suicide Risk Severity Scale Last Done: 08/05/23 00:28
[2023-08-04 18:49] LABS: Appearance Urine Clear; Color Urine Yellow; Glucose Urine UA Negative (Negative); Leukocyte Esterase Urine Negative (Negative); Nitrite Urine Negative (Negative); Specific Gravity - Urine 1.025 (1.005-1.025); Urine Blood Negative (Negative); Urine Ketones Negative (Negative); Urine Protein Negative (Neg-Trace)
[2023-08-04 18:54] LABS: Bacteria Urine None Seen (None Seen); RBC Urine 0-2 /HPF (0-2); Squamous Epithelial Cell Urine 0-2 /HPF (0-2); WBC Urine 0-5 /HPF (0-5)
[2023-08-04 18:58] LABS: Amphetamine Screen Urine Not Detected (Not Detect); Barbiturates, Urine Not Detected (Not Detect); Benzodiazepines Screen Urine Not Detected (Not Detect); Cannabinoid Screen Urine Not Detected (Not Detect); Cocaine Screen Urine Not Detected (Not Detect); Fentanyl, urine Not Detected (Not Detect); Opiate Screen Urine POSITIVE (Not Detect); Phencyclidine Screen Urine Not Detected (Not Detect)
[2023-08-04] MEDS: HYDROmorphone HCl 2 MG/ML VIAL IM (19:56)
[2023-08-04 19:57] LABS: MANUAL DIFF FLAG NO
[2023-08-04 20:05] LABS: Basophils Percent Auto 0.2 % (0-2); Eosinophils Absolute Auto 0.2 X10*3/uL (0.0-0.4); Eosinophils Percent Auto 2.3 % (0-4); Hematocrit 29.8 % (37.0-47.0); Hemoglobin 9.1 g/dl (12.0-16.0); INTERNATIONAL NORM RATIO 0.9 (0.9-1.1); Imm Gran Abs Auto 0.07 X10*3/uL (0.00-0.03); Imm Gran Pct Auto 0.9 % (0.0-0.4); Lymphocytes Absolute Auto 1.9 X10*3/uL (1.2-4.9); Lymphocytes Percent Auto 23.6 % (20-40); Mean Corpuscular HGB Conc 30.5 g/dl (31.0-35.0); Mean Corpuscular Volume 81.9 fL (80.0-98.0); Mean Platelet Volume 9.6 fL (9.4-12.3); Monocytes Absolute Auto 0.6 X10*3/uL (0.1-1.2); Monocytes Percent Auto 6.8 % (2-11); Neutrophils Absolute Auto 5.5 x10*3/uL (2.0-8.3); Neutrophils Percent Auto 66.2 % (45-73); Platelet Count 261 X10*3/uL (160-400); Red Blood Count 3.64 X10*6/uL (4.20-5.50); Red Cell Distribution Width 16.1 % (11.0-16.0); White Blood Count 8.2 X10*3/uL (4.8-10.8)
[2023-08-04 20:12] LABS: Alanine Aminotransferase 9 U/L (0-31); Albumin Level 3.8 g/dL (3.5-5.0); Alkaline Phosphatase 113 U/L (39-117); Anion Gap 13 (12-20); Aspartate Amino Transferase 12 U/L (5-31); Bilirubin Total 0.2 mg/dL (0.0-1.0); Blood Urea Nitrogen 17 mg/dL (9-16); Calcium 8.8 mg/dL (8.4-10.2); Carbon Dioxide 30 mmol/L (22-29); Chloride 101 mmol/L (96-108); Creatinine Clr Calc Pharmacy 83.1; Estimated Glomerular Filt Rate > 60; Glucose Random 99 mg/dL (60-115); Potassium 3.9 mmol/L (3.3-5.1); Sodium 140 mmol/L (135-145); Total Protein 6.9 g/dL (6.5-8.0)
[2023-08-04 21:51] VITALS: BP 144/58; PULSE 82; RESP 16; TEMP 37; O2SAT 94
[2023-08-05] MEDS: oxyCODONE HCl Immed Release 5 MG TABLET PO ×4 (00:21→20:23)
[2023-08-05] MEDS: Gabapentin 300 MG CAPSULE PO ×3 (00:21→20:23)
[2023-08-05] MEDS: traZODone HCL 100 MG TABLET 300 MG PO ×2 (01:24→20:19)
[2023-08-05 08:04] VITALS: BP 149/70; PULSE 83; RESP 17; TEMP 36.6; O2SAT 96
[2023-08-05] MEDS: Albuterol Sulfate 90 MCG 8 GM INHALER 2 PUFF INHALE (08:05)
[2023-08-05] MEDS: polyethylene glycoL 3350 17 GM POWD.PACK PO (08:05)
[2023-08-05] MEDS: Venlafaxine HCl ER 75 MG CAP.ER.24H 225 MG PO (08:11)
[2023-08-05] MEDS: clonazePAM 1 MG TABLET PO ×2 (08:11→20:23)
[2023-08-05] MEDS: ARIPiprazole 10 MG TABLET PO (08:11)
[2023-08-05] MEDS: hydroCHLOROthiazide 25 MG TABLET 50 MG PO (08:11)
[2023-08-05] MEDS: metFORMIN HCl ER 500 MG TAB.ER.24H PO ×2 (08:11→17:05)
--- NOTE | 2023-08-05 10:37 | PC.NURSE ---
Patient assisted to bathroom to shower/brush teeth and change clothes. Following ED RN prompts appropriately at this time.
[2023-08-05 15:31] VITALS: BP 141/86; PULSE 81; RESP 18; TEMP 36.7; O2SAT 97
--- NOTE | 2023-08-05 15:50 | PM.PSYCN ---
History of Present Illness Date of Service: 08/05/23 Chief Complaint: BACK & L KNEE PAIN S/P BACK SYRGERY,HALLUCINATIONS Reason for Consult: CTSP due to recent onset AVH HPI Narrative: [place] [facility] [place]/o back pain radiating down her leg; she was s/p L5-S1 fusion earlier this month. during medical eval she reported AVH and once medically cleared was transferred to the pod for psych eval. she informed CARE team staff that she had not slept much to speak of for 6-7 nights and that she has not been eating. she has had severe leg pain since the surgery and has been unable to get satisfaction from her PCP (after having left rehab after 3-4 days rather than the recommended 3-4 weeks. she reported her pain was very inadequately treated at the rehab). she reports AVH happen only when she is trying to sleep at night. they are scary, but she is clearly aware they are hallucinations, at least in retrospect. she reported these phenomena occurring once previously in her life for a brief period, also after having had a surgery. on interview with MD, pt repeated the above. she added her insomnia is due largely to depression rather than pain, although pain is a component. she is requesting admission for help with her mood and sleep. she believes she is depressed, but she does note that prior to her recent surgery, when she was not in pain, her mood was fine. only since she began to experience severe pain has her mood worsened and her insomnia developed. informs pt on a mental health unit her pain will not be aggressively managed, which she says she understands. she is looking for some relief through sleep and help with her depression. suggests a brief hospital stay to manage her HS meds for sleep may be reasonable under the circumstances, but that it should be kept short due to the pain's appearing to be the driving factor in her mental health and insomnia concerns. Past Psychiatric History: has outpt care with med prescriber. h/o M3 stay in 2022 for depression. [facility] Medical History Weakness Arthritis History of brain inflammation Protrusion of lumbar intervertebral disc Tinnitus Venous insufficiency Osteoarthritis Loss of hair History of headache Fibromyositis Fatigue Hyperlipidemia HTN (hypertension) Continuous opioid dependence Sinusitis Anemia Anxiety Diverticulosis Chronic idiopathic constipation Migraine Asthma Depression Diabetes 1.5, managed as type 2 Fibromyalgia Surgical History S/P panniculectomy Hx of hysterectomy Hx of oophorectomy Hx of bilateral breast reduction surgery H/O colonoscopy History of pubovaginal sling Gastric bypass status for obesity Family History: deferred Social History: Pt originally from [place]. She has been for more than 40 years. She has two adult children- son and daughter. Pt receives social security. lives in a townhouse with her in [place]. Substance History: opiates - utox POS, but Rxed opiates. utox otherwise NEG no other reported substance use. Trauma History: not disclosed. Diagnostics Vital Signs (24Hr): Vital Signs - 24 hr 08/04/23 17:55 08/04/23 21:51 08/05/23 08:04 Temperature 97.8 F 98.6 F 98 F Pulse Rate 82 82 83 Respiratory Rate 18 16 17 Blood Pressure 142/88 H 144/58 H 149/70 H Pulse Oximetry 97 94 96 Oxygen Delivery Method Room Air Room Air Room Air 08/05/23 15:31 Temperature 98.1 F Pulse Rate 81 Respiratory Rate 18 Blood Pressure 141/86 H Pulse Oximetry 97 Oxygen Delivery Method Room Air BMI result Body Mass Index 33.3 Labs 08/04/23 19:51 08/04/23 19:51 Labs: Laboratory Results - last 48 hr 08/04/23 08/04/23 18:29 19:51 WBC 8.2 RBC 3.64 L Hgb 9.1 L Hct 29.8 L MCV 81.9 MCH 25.0 L MCHC 30.5 L RDW 16.1 H Plt Count 261 MPV 9.6 Immature Gran % (Auto) 0.9 H Neut % (Auto) 66.2 Lymph % (Auto) 23.6 [place] % (Auto) 6.8 Eos % (Auto) 2.3 Baso % (Auto) 0.2 Lymph # (Auto) 1.9 [place] # (Auto) 0.6 Eos # (Auto) 0.2 Baso # (Auto) 0.0 Abs Immat Gran (auto) 0.07 H Absolute Neuts (auto) 5.5 Absolute Nucleated RBC 0.000 Nucleated RBC % (auto) 0.0 PT 11.0 L INR 0.9 Sodium 140 Potassium 3.9 Chloride 101 Carbon Dioxide 30 H Anion Gap 13 BUN 17 H Creatinine 0.79 Estim Creat Clear Calc 83.1 Estimated GFR > 60 Random Glucose 99 Calcium 8.8 Total Bilirubin 0.2 AST 12 ALT 9 Alkaline Phosphatase 113 Total Protein 6.9 Albumin 3.8 Urine Color Yellow Urine Appearance Clear Urine pH 5.0 Ur Specific [place] 1.025 Urine Protein Negative Urine Glucose (UA) Negative Urine Ketones Negative Urine Blood Negative Urine Nitrite Negative Ur Leukocyte Esterase Negative Urine RBC 0-2 Urine WBC 0-5 Ur Squamous Epith Cells 0-2 Urine Bacteria None Seen Hyaline Casts 3-5 Urine Opiates Screen POSITIVE H Urine Fentanyl Screen Not Detected Ur Barbiturates Screen Not Detected Ur Phencyclidine Scrn Not Detected Ur Amphetamines Screen Not Detected U Benzodiazepines Scrn Not Detected Urine Cocaine Screen Not Detected U Marijuana (THC) Screen Not Detected Imaging Radiology Impressions: ITS Impressions Venous Duplex 08/04/23 18:58 IMPRESSION: No DVT demonstrated in the left lower extremity. Mental Status Exam Mental Status Exam Narrative: In today's visit she is alert, pleasant and interactive. Speech is normal. Good eye contact. Appropriate affect/constricted. No psychosis. No SI. Cognitively is grossly intact. Judgment is intact. Medications Medications Current Medications Albuterol Sulfate (Albuterol Sulfate 90 Mcg 8 Gm Inhaler) 2 puff INHALE Q4H PRN PRN Reason: Wheezing Last Admin: 08/05/23 08:05 Dose: 2 puff Aripiprazole (Aripiprazole 10 Mg Tablet) 10 mg PO DAILY [facility] Last Admin: 08/05/23 08:11 Dose: 10 mg Clonazepam (Clonazepam 1 Mg Tablet) 1 mg PO BID [facility] Last Admin: 08/05/23 08:11 Dose: 1 mg Gabapentin (Gabapentin 300 Mg Capsule) 300 mg PO BID [facility] Last Admin: 08/05/23 08:11 Dose: 300 mg Hydrochlorothiazide (Hydrochlorothiazide 25 Mg Tablet) 50 mg PO DAILY [facility]; Protocol Last Admin: 08/05/23 08:11 Dose: 50 mg Metformin HCl (Metformin Hcl Er 500 Mg Tab.Er.24h) 500 mg PO BIDWM [facility] Last Admin: 08/05/23 08:11 Dose: 500 mg Oxycodone HCl (Oxycodone Hcl Immed Release 5 Mg Tablet) 5 mg PO Q6H PRN PRN Reason: Pain, Severe (Pain Scale 7-10) Last Admin: 08/05/23 14:12 Dose: 5 mg Polyethylene Glycol (Polyethylene Glycol 3350 17 Gm Powd.Pack) 17 gm PO DAILY [facility] Last Admin: 08/05/23 08:05 Dose: 17 gm Trazodone HCl (Trazodone Hcl 100 Mg Tablet) 300 mg PO BEDTIME [facility] Last Admin: 08/05/23 01:24 Dose: 300 mg Venlafaxine HCl (Venlafaxine Hcl Er 75 Mg Cap.Er.24h) 225 mg PO DAILY [facility] Last Admin: 08/05/23 08:11 Dose: 225 mg Allergies Allergies Allergy/AdvReac Type Severity Reaction Status Date / Time morphine [MORPHINE] Allergy Intermediate PALPITATIONS, Verified 07/31/23 13:36 tachicardia quetiapine [Seroquel] Allergy Intermediate Aggitation Verified 07/31/23 13:36 orphenadrine [ORPHENADRINE] AdvReac Intermediate RAPID Verified 07/31/23 13:36 HEART RATE Assessment & Plan Assessment & Plan (1) MDD (major depressive disorder), recurrent episode, moderate: Status: Acute Code(s): F33.1 - Major depressive disorder, recurrent, moderate (2) Auditory hallucinations: Status: Acute Code(s): R44.0 - Auditory hallucinations (3) Postoperative back pain: Status: Acute Code(s): G89.18 - Other acute postprocedural pain; M54.9 - Dorsalgia, unspecified Plan pt's AVH at night when trying to fall asleep may be related to pain, exhaustion from lack of sleep for a week, depression with psychotic Fx, or overuse of opioid pain medications. she is requesting admission for help with sleep and mood, which is not unreasonable to the extent her insomnia is related to depression as opposed to pain; she reports she cannot sleep mostly due to depression. plan to admit pt for help with insomnia/mood. brief stay is recommended as pt's main issue appears to be post-operative pain, which will not be aggressively managed on the inpatient mental health unit. Total time managing care of this patient today __55__ minutes.
[2023-08-05 18:39] LABS: Glucose, Whole Blood 179 mg/dL (60-115)
[2023-08-05] MEDS: Acetaminophen 325 MG TABLET 975 MG PO (18:40)
[2023-08-05] MEDS: Cyclobenzaprine HCl 10 MG TABLET PO (18:42)
[2023-08-05 19:32] VITALS: BP 121/66; PULSE 86; RESP 17; TEMP 36.9; O2SAT 96
[2023-08-06 00:18] VITALS: BP 149/79; PULSE 81; RESP 17; TEMP 36.6; O2SAT 93
[2023-08-06] MEDS: oxyCODONE HCl Immed Release 5 MG TABLET PO ×4 (04:09→22:12)
--- NOTE | 2023-08-06 06:30 | PC.NURSE ---
Patient slept through the night, no distress observed/reported at this time but reports left leg pain 12/19 which is managed by Oxy 5 mg every six hours, medication compliant, no behavior issues, disposition per care team is voluntary inpatient bed search, VSS, will continue to monitor
--- NOTE | 2023-08-06 07:58 | ECG_ITS ---
Test Reason : qtc check Blood Pressure : / mmHG Vent. Rate : 075 BPM Atrial Rate : 075 BPM P-R Int : 182 ms QRS Dur : 086 ms QT Int : 390 ms P-R-T Axes : 048 -12 023 degrees QTc Int : 435 ms Normal sinus rhythm Minimal voltage criteria for LVH, may be normal variant ( R in aVL ) Borderline ECG When compared with ECG of 11-DEC-2022 00:40, No significant change was found Referred By: Ata Roman Electronically Signed By:Kristofer Pitts
[2023-08-06 07:59] VITALS: BP 128/71; PULSE 82; RESP 18; TEMP 36.4; O2SAT 94
[2023-08-06] MEDS: Gabapentin 300 MG CAPSULE PO (08:33)
[2023-08-06] MEDS: hydroCHLOROthiazide 25 MG TABLET 50 MG PO (08:33)
[2023-08-06] MEDS: metFORMIN HCl ER 500 MG TAB.ER.24H PO ×2 (08:33→16:20)
[2023-08-06] MEDS: Venlafaxine HCl ER 75 MG CAP.ER.24H 225 MG PO (08:33)
[2023-08-06] MEDS: Acetaminophen 325 MG TABLET 975 MG PO (08:33)
[2023-08-06] MEDS: ARIPiprazole 10 MG TABLET PO (08:33)
[2023-08-06] MEDS: clonazePAM 1 MG TABLET PO ×2 (08:33→21:20)
[2023-08-06] MEDS: polyethylene glycoL 3350 17 GM POWD.PACK PO (08:33)
[2023-08-06 09:11] LABS: COVID-19 Test Negative (Negative); IDNOW Serial# 152EDE1D
[2023-08-06] MEDS: Lidocaine 4 % Patch ADH..PATCH 1 PATCH TRANSDERMA (10:45)
[2023-08-06 12:50] VITALS: BP 133/63; PULSE 81; RESP 18; TEMP 36.4; O2SAT 96
--- NOTE | 2023-08-06 13:44 | HO.PSYADMNOT ---
HPI Date of Service: 08/06/23 Chief Complaint: Depression Sources of Information: patient interviewed, chart reviewed and crisis/core team assessment reviewed HPI Subjective Notes: [place] Warning and Conditional Voluntary Narrative: Mrs. Rivas is a 63 year-old woman with hx of MDD who self presented to [facility] reporting increase pain lower back pain radiating to left leg. She reports pain worse after back surgery. Note that pt was sent to short term rehab after surgery and left AMA due to her complaining of uncontrollable pain. Per ortho provider, CAMELIA on 07/30- he recommended tylenol 1000mg po QID, oxycodone 5mg qid. On the unit, pt reports she has not slept for several days. She reports increase anxious and depressed mood secondary to lack of sleep and pain radiating to left leg after surgery. She denies SI/HI. No VH/AH. She had reported seeing some faces at night after surgery but reports she has not seen things that other's can't see. Past Psychiatric History: OP: Dr. Slaas, [facility] h/o stay in 2022 for depression. Medical Evaluation Reviewed: Yes [facility] Medical History Weakness Arthritis History of brain inflammation Protrusion of lumbar intervertebral disc Tinnitus Venous insufficiency Osteoarthritis Loss of hair History of headache Fibromyositis Fatigue Hyperlipidemia HTN (hypertension) Continuous opioid dependence Sinusitis Anemia Anxiety Diverticulosis Chronic idiopathic constipation Migraine Asthma Depression Diabetes 1.5, managed as type 2 Fibromyalgia Surgical History S/P panniculectomy Hx of hysterectomy Hx of oophorectomy Hx of bilateral breast reduction surgery H/O colonoscopy History of pubovaginal sling Gastric bypass status for obesity Family History: deferred Social History: Pt originally from [place]. She has been for more than 40 years. She has two adult children- son and daughter. Pt receives social security. lives in a townhouse with her in [place]. Trauma History: not disclosed. Diagnostics Vital Signs (24Hr): Vital Signs - 24 hr 08/05/23 15:31 08/05/23 19:32 08/06/23 00:18 Temperature 98.1 F 98.4 F 97.9 F Pulse Rate 81 86 81 Respiratory Rate 18 17 17 Blood Pressure 141/86 H 121/66 149/79 H Pulse Oximetry 97 96 93 Oxygen Delivery Method Room Air Room Air Room Air 08/06/23 07:59 Temperature 97.5 F Pulse Rate 82 Respiratory Rate 18 Blood Pressure 128/71 Pulse Oximetry 94 Oxygen Delivery Method Room Air BMI result Body Mass Index 33.3 Labs 08/04/23 19:51 08/07/23 07:57 Labs: Laboratory Results - last 48 hr 08/04/23 08/04/23 08/05/23 18:29 19:51 18:36 WBC 8.2 RBC 3.64 L Hgb 9.1 L Hct 29.8 L MCV 81.9 MCH 25.0 L MCHC 30.5 L RDW 16.1 H Plt Count 261 MPV 9.6 Immature Gran % (Auto) 0.9 H Neut % (Auto) 66.2 Lymph % (Auto) 23.6 [place] % (Auto) 6.8 Eos % (Auto) 2.3 Baso % (Auto) 0.2 Lymph # (Auto) 1.9 [place] # (Auto) 0.6 Eos # (Auto) 0.2 Baso # (Auto) 0.0 Abs Immat Gran (auto) 0.07 H Absolute Neuts (auto) 5.5 Absolute Nucleated RBC 0.000 Nucleated RBC % (auto) 0.0 PT 11.0 L INR 0.9 Sodium 140 Potassium 3.9 Chloride 101 Carbon Dioxide 30 H Anion Gap 13 BUN 17 H Creatinine 0.79 Estim Creat Clear Calc 83.1 Estimated GFR > 60 POC Glucose 179 H Random Glucose 99 Calcium 8.8 Total Bilirubin 0.2 AST 12 ALT 9 Alkaline Phosphatase 113 Total Protein 6.9 Albumin 3.8 Urine Color Yellow Urine Appearance Clear Urine pH 5.0 Ur Specific [place] 1.025 Urine Protein Negative Urine Glucose (UA) Negative Urine Ketones Negative Urine Blood Negative Urine Nitrite Negative Ur Leukocyte Esterase Negative Urine RBC 0-2 Urine WBC 0-5 Ur Squamous Epith Cells 0-2 Urine Bacteria None Seen Hyaline Casts 3-5 Urine Opiates Screen POSITIVE H Urine Fentanyl Screen Not Detected Ur Barbiturates Screen Not Detected Ur Phencyclidine Scrn Not Detected Ur Amphetamines Screen Not Detected U Benzodiazepines Scrn Not Detected Urine Cocaine Screen Not Detected U Marijuana (THC) Screen Not Detected COVID-19 (IGOR) COVID-19 Clin Com 08/06/23 08:20 WBC RBC Hgb Hct MCV MCH MCHC RDW Plt Count MPV Immature Gran % (Auto) Neut % (Auto) Lymph % (Auto) [place] % (Auto) Eos % (Auto) Baso % (Auto) Lymph # (Auto) [place] # (Auto) Eos # (Auto) Baso # (Auto) Abs Immat Gran (auto) Absolute Neuts (auto) Absolute Nucleated RBC Nucleated RBC % (auto) PT INR Sodium Potassium Chloride Carbon Dioxide Anion Gap BUN Creatinine Estim Creat Clear Calc Estimated GFR POC Glucose Random Glucose Calcium Total Bilirubin AST ALT Alkaline Phosphatase Total Protein Albumin Urine Color Urine Appearance Urine pH Ur Specific [place] Urine Protein Urine Glucose (UA) Urine Ketones Urine Blood Urine Nitrite Ur Leukocyte Esterase Urine RBC Urine WBC Ur Squamous Epith Cells Urine Bacteria Hyaline Casts Urine Opiates Screen Urine Fentanyl Screen Ur Barbiturates Screen Ur Phencyclidine Scrn Ur Amphetamines Screen U Benzodiazepines Scrn Urine Cocaine Screen U Marijuana (THC) Screen COVID-19 (IGOR) Negative COVID-19 Clin Com See Note Imaging Radiology Impressions: ITS Impressions Venous Duplex 08/04/23 18:58 IMPRESSION: No DVT demonstrated in the left lower extremity. Meds/Allergies Meds Home Medications Medication Instructions Recorded Confirmed Type metformin 500 mg tablet,extended 500 mg PO BID 12/11/22 08/05/23 History release 24 hr trazodone 100 mg tablet 300 mg PO BEDTIME 12/11/22 08/05/23 History gabapentin 300 mg capsule 300 mg PO TID pain 07/09/23 08/05/23 History hydrochlorothiazide 50 mg tablet 50 mg QAM 07/21/23 08/05/23 History venlafaxine 150 mg 225 mg PO DAILY 07/21/23 08/05/23 History capsule,extended release 24 hr Allergies Allergies Allergy/AdvReac Type Severity Reaction Status Date / Time morphine [MORPHINE] Allergy Intermediate PALPITATIONS, Verified 07/31/23 13:36 tachicardia quetiapine [Seroquel] Allergy Intermediate Aggitation Verified 07/31/23 13:36 orphenadrine [ORPHENADRINE] AdvReac Intermediate RAPID Verified 07/31/23 13:36 HEART RATE Mental Status Exam Mental Status Exam Narrative: Appearance: wearing hospital gown, fair hygiene, in NAD Behavior: cooperative Psychomotor: no agitation or retardation noted Speech: clear, normal rate/rhythm/volume, spontaneous TP: linear TC: feeling overwhelmed about leg pain Mood: depressed SI: denies HI: denies VH/AH: none Delusions: none Insight/judgment: fair x 2. Memory/cog: alert, oriented x 3. Assessment & Plan Assessment & Plan (1) MDD (major depressive disorder), recurrent episode, moderate: Status: Acute Code(s): F33.1 - Major depressive disorder, recurrent, moderate Plan Mrs. Rivas is a 63 year-old woman with hx of MDD who initially self presented to [facility] reporting increase pain on back pain radiating to left leg. Pt had back surgery recently and was sent to short term rehab which she left AMA. She was seen on 07/30 by ortho PA, who recommended tylenol 1000mg po QID and oxycodone 5mg po qid. We discussed risks, benefits and alternative treatment options, increase gabapentin at night 600mg po qhs and 300mg po daily. continue effexor. No signs of psychosis. PLAN 1. Admit to S1, CV, 15 minutes checks 2. increase gabapentin 600mg po qhs, 300mg po daily. continue effexor 225mg po daily 3. obtain collateral information 4. aftercare planning. Patient educated on: diagnosis Reason for continued inpatient stay Substantial Risk for: inability to function Statement Statement: I have reviewed the history and physical and performed a pertinent examination on my patient. No changes have occurred unless specified. If the History and Physical was not performed prior to admission, the Hospitalist's service will be consulted for completing the admission physical. Time Spent With Patient Time: Total time managing care of this patient today ____ minutes.
[2023-08-06 14:05] VITALS: BMI 36.5
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
[2023-08-06 18:00] VITALS: BP 139/79; PULSE 84; RESP 18; TEMP 36.6; O2SAT 96
[2023-08-06] MEDS: traZODone HCL 100 MG TABLET 150 MG PO (21:21)
[2023-08-06] MEDS: Gabapentin 300 MG CAPSULE 600 MG PO (21:21)
[2023-08-07] MEDS: traZODone HCL 50 MG TABLET PO (01:25)
[2023-08-07] MEDS: Acetaminophen 325 MG TABLET 975 MG PO ×3 (01:30→17:56)
[2023-08-07] MEDS: oxyCODONE HCl Immed Release 5 MG TABLET PO ×4 (04:50→23:59)
[2023-08-07 07:00] VITALS: BMI 36.8
[2023-08-07 07:41] VITALS: BP 144/76; PULSE 77; RESP 18; TEMP 36.3; O2SAT 95
[2023-08-07] MEDS: Gabapentin 300 MG CAPSULE PO (08:08)
[2023-08-07] MEDS: hydroCHLOROthiazide 25 MG TABLET 50 MG PO (08:08)
[2023-08-07] MEDS: polyethylene glycoL 3350 17 GM POWD.PACK PO (08:08)
[2023-08-07] MEDS: Venlafaxine HCl ER 75 MG CAP.ER.24H 225 MG PO (08:08)
[2023-08-07] MEDS: ARIPiprazole 10 MG TABLET PO (08:09)
[2023-08-07] MEDS: metFORMIN HCl ER 500 MG TAB.ER.24H PO ×2 (08:09→16:29)
[2023-08-07] MEDS: clonazePAM 1 MG TABLET PO ×2 (08:09→20:41)
[2023-08-07 08:16] LABS: Estimated Average Glucose 148 mg/dL; Hemoglobin A1c % 6.8 % (<6.0)
[2023-08-07 08:33] LABS: Alanine Aminotransferase 9 U/L (0-31); Albumin Level 3.8 g/dL (3.5-5.0); Alkaline Phosphatase 118 U/L (39-117); Anion Gap 14 (12-20); Aspartate Amino Transferase 12 U/L (5-31); Bilirubin Total 0.3 mg/dL (0.0-1.0); Blood Urea Nitrogen 18 mg/dL (9-16); Calcium 8.9 mg/dL (8.4-10.2); Carbon Dioxide 29 mmol/L (22-29); Chloride 100 mmol/L (96-108); Cholesterol 200 mg/dL (<200); Creatinine Clr Calc Pharmacy 75.1; Estimated Glomerular Filt Rate > 60; Glucose Fasting 147 mg/dL (60-99); HDL Cholesterol 62 mg/dL (>40); LDL Cholesterol Calculated 113 mg/dL (<100); Potassium 4.3 mmol/L (3.3-5.1); Sodium 139 mmol/L (135-145); Total Protein 6.9 g/dL (6.5-8.0); Triglycerides 128 mg/dL (<150)
[2023-08-07 08:48] LABS: Thyroid Stimulating Hormone 2.56 uIU/mL (0.32-4.0)
[2023-08-07 08:54] LABS: Vitamin B12 362 pg/mL (200-900)
--- NOTE | 2023-08-07 12:25 | PC.NURSE ---
Reported no BM > 1 week. Michelle Chavira NP notified.
--- NOTE | 2023-08-07 13:10 | PC.NURSE ---
Lelo reported no BM > 1 week, milk of magnesia offered and Lelo declined. Michelle Chavira NP notified. Reports severe pain (01/19) despite Tylenol 975mg and Oxycodone 5mg; Michelle Chavira NP notified.
--- NOTE | 2023-08-07 13:46 | MHC.CLN ---
PT REPORTED 14-23# WT LOSS ON NURSING ADMISSION ASSESSMENT REVIEW OF PREVIOUS WT HX REVEALS 99.6KG (08/06/23 89.5KG (12/10/22) PT WITH 11 % SIGNIFICANT WT GAIN X 6 MONTHS PT IS OBESE FOR HT CONTINUE CURRENT CARE PLAN
[2023-08-07] MEDS: Sennosides/Docusate Sodium TABLET 2 TAB PO ×2 (14:04→20:40)
[2023-08-07] MEDS: Lactulose 20 GM/30 ML SOLUTION PO ×2 (14:04→20:41)
[2023-08-07 20:25] VITALS: BP 161/74; PULSE 81; RESP 18; TEMP 36.2; O2SAT 96
[2023-08-07] MEDS: Gabapentin 300 MG CAPSULE 600 MG PO (20:40)
[2023-08-07] MEDS: traZODone HCL 100 MG TABLET 150 MG PO (20:41)
[2023-08-08] MEDS: Acetaminophen 325 MG TABLET 975 MG PO ×2 (02:22→13:38)
[2023-08-08] MEDS: oxyCODONE HCl Immed Release 5 MG TABLET PO ×3 (05:59→18:41)
--- NOTE | 2023-08-08 06:32 | PC.NURSE ---
Patient reported constipation and last Bowel movement was on 07/21/23 two days before her back surgery. Lactulose 30 mg BID initiated yesterday received two dose already. Abdomen soft and non-tender on palpation, bowel sounds positive in all four quadrants, the bowel movement issue may be due to Oxycodone intake for pain management and poor appetite. Will continue to monitor
[2023-08-08 08:45] VITALS: BP 134/73; PULSE 82; RESP 18; TEMP 36.4; O2SAT 95
[2023-08-08] MEDS: Venlafaxine HCl ER 75 MG CAP.ER.24H 225 MG PO (08:53)
[2023-08-08] MEDS: Gabapentin 300 MG CAPSULE PO (08:54)
[2023-08-08] MEDS: hydroCHLOROthiazide 25 MG TABLET 50 MG PO (08:55)
[2023-08-08] MEDS: polyethylene glycoL 3350 17 GM POWD.PACK PO (08:55)
[2023-08-08] MEDS: ARIPiprazole 10 MG TABLET PO (08:55)
[2023-08-08] MEDS: Sennosides/Docusate Sodium TABLET 2 TAB PO ×2 (08:55→21:23)
[2023-08-08] MEDS: Lactulose 20 GM/30 ML SOLUTION PO (08:55)
[2023-08-08] MEDS: metFORMIN HCl ER 500 MG TAB.ER.24H PO ×2 (08:55→17:07)
[2023-08-08] MEDS: clonazePAM 1 MG TABLET PO ×2 (08:55→21:23)
--- NOTE | 2023-08-08 09:14 | HO.PSYCHPN ---
Subjective Subjective Date of Service: 08/07/23 Reason For Visit: Depression Subjective Notes: Conditional Voluntary Interim History: Nursing reports pt slept 8hrs. She reports her sleep was not as restful. Pt asked to let staff know at night that she is having difficulty sleeping otherwise report will not be accurate. She reports less depressed mood. She also reports her main concern is back pain radiating left leg. She has been visible on the unit. social with select peers. Review of Systems Review of Systems Yes all other systems are reviewed and are negative Mental Status Exam Mental Status Exam Narrative: Appearance: wearing hospital gown, fair hygiene, in NAD Behavior: cooperative Psychomotor: no agitation or retardation noted Speech: clear, normal rate/rhythm/volume, spontaneous TP: linear TC: feeling overwhelmed about leg pain Mood: depressed SI: denies HI: denies VH/AH: none Delusions: none Insight/judgment: fair x 2. Memory/cog: alert, oriented x 3. Diagnostics Vital Signs (24Hr): Vital Signs - 24 hr 08/07/23 20:25 08/08/23 08:45 Temperature 97.1 F 97.5 F Pulse Rate 81 82 Respiratory Rate 18 18 Blood Pressure 161/74 H 134/73 Pulse Oximetry 96 95 Oxygen Delivery Method Room Air Room Air BMI result Body Mass Index 36.8 Labs 08/04/23 19:51 08/07/23 07:57 Labs: Laboratory Results - last 48 hr 08/07/23 07:57 Sodium 139 Potassium 4.3 Chloride 100 Carbon Dioxide 29 Anion Gap 14 BUN 18 H Creatinine 0.92 Estim Creat Clear Calc 75.1 Estimated GFR > 60 Fasting Glucose 147 H Estimat Average Glucose 148 Hemoglobin A1c % 6.8 H Calcium 8.9 Total Bilirubin 0.3 AST 12 ALT 9 Alkaline Phosphatase 118 H Total Protein 6.9 Albumin 3.8 Triglycerides 128 Cholesterol 200 H LDL Cholesterol, Calc 113 H HDL Cholesterol 62 Vitamin B12 362 TSH 2.56 Imaging Radiology Impressions: ITS Impressions Venous Duplex 08/04/23 18:58 IMPRESSION: No DVT demonstrated in the left lower extremity. Medications Medications Current Medications Acetaminophen (Acetaminophen 325 Mg Tablet) 975 mg PO Q8H PRN PRN Reason: Pain, Moderate(Pain Scale 4-6) Last Admin: 08/08/23 02:22 Dose: 975 mg Al Hydroxide/Mg Hydroxide (Magnesium Hydrox/Alum Hydrox 30 Ml Oral.Susp) 30 ml PO Q6H PRN PRN Reason: Heartburn/Nausea Albuterol Sulfate (Albuterol Sulfate 90 Mcg 8 Gm Inhaler) 2 puff INHALE Q4H PRN PRN Reason: Wheezing Last Admin: 08/05/23 08:05 Dose: 2 puff Aripiprazole (Aripiprazole 10 Mg Tablet) 10 mg PO DAILY [facility] Last Admin: 08/08/23 08:55 Dose: 10 mg Clonazepam (Clonazepam 1 Mg Tablet) 1 mg PO BID [facility] Last Admin: 08/08/23 08:55 Dose: 1 mg Gabapentin (Gabapentin 300 Mg Capsule) 600 mg PO BEDTIME [facility] Last Admin: 08/07/23 20:40 Dose: 600 mg Gabapentin (Gabapentin 300 Mg Capsule) 300 mg PO DAILY [facility] Last Admin: 08/08/23 08:54 Dose: 300 mg Hydrochlorothiazide (Hydrochlorothiazide 25 Mg Tablet) 50 mg PO DAILY [facility]; Protocol Last Admin: 08/08/23 08:55 Dose: 50 mg Lactulose (Lactulose 20 Gm/30 Ml Solution) 20 gm PO BID [facility] Last Admin: 08/08/23 08:55 Dose: 20 gm Magnesium Hydroxide (Milk Of Magnesia 30 Ml Oral.Susp) 30 ml PO DAILY PRN PRN Reason: Constipation Metformin HCl (Metformin Hcl Er 500 Mg Tab.Er.24h) 500 mg PO BIDWM [facility] Last Admin: 08/08/23 08:55 Dose: 500 mg Oxycodone HCl (Oxycodone Hcl Immed Release 5 Mg Tablet) 5 mg PO Q6H PRN PRN Reason: Pain, Severe (Pain Scale 7-10) Last Admin: 08/08/23 05:59 Dose: 5 mg Polyethylene Glycol (Polyethylene Glycol 3350 17 Gm Powd.Pack) 17 gm PO DAILY [facility] Last Admin: 08/08/23 08:55 Dose: 17 gm Senna/Docusate Sodium (Sennosides/Docusate Sodium Tablet) 2 tab PO BID [facility] Last Admin: 08/08/23 08:55 Dose: 2 tab Trazodone HCl (Trazodone Hcl 100 Mg Tablet) 150 mg PO BEDTIME [facility] Last Admin: 08/07/23 20:41 Dose: 150 mg Trazodone HCl (Trazodone Hcl 50 Mg Tablet) 50 mg PO BEDTIME PRN PRN Reason: Insomnia Last Admin: 08/07/23 01:25 Dose: 50 mg Venlafaxine HCl (Venlafaxine Hcl Er 75 Mg Cap.Er.24h) 225 mg PO DAILY [facility] Last Admin: 08/08/23 08:53 Dose: 225 mg Allergies Allergies Allergy/AdvReac Type Severity Reaction Status Date / Time morphine [MORPHINE] Allergy Intermediate PALPITATIONS, Verified 07/31/23 13:36 tachicardia quetiapine [Seroquel] Allergy Intermediate Aggitation Verified 07/31/23 13:36 orphenadrine [ORPHENADRINE] AdvReac Intermediate RAPID Verified 07/31/23 13:36 HEART RATE Assessment & Plan Assessment & Plan (1) MDD (major depressive disorder), recurrent episode, moderate: Status: Acute Code(s): F33.1 - Major depressive disorder, recurrent, moderate Plan Mrs. Rivas is a 63 year-old woman with hx of MDD who initially self presented to [facility] ED reporting increase pain on back pain radiating to left leg. Pt had back surgery recently and was sent to short term rehab which she left AMA. She was seen on 07/30 by ortho PA, who recommended tylenol 1000mg po QID and oxycodone 5mg po qid. We discussed risks, benefits and alternative treatment options, increase gabapentin at night 600mg po qhs and 300mg po daily. continue effexor. No signs of psychosis. PLAN 1. Admit to S1, CV, 15 minutes checks 2. continue gabapentin 600mg po qhs, 300mg po daily. continue effexor 225mg po daily 3. obtain collateral information 4. aftercare planning. Reason for continued inpatient stay Substantial Risk for: inability to function Time Spent With Patient Time: Total time managing care of this patient today ____ minutes.
--- NOTE | 2023-08-08 09:21 | HO.PSYCHPN ---
Subjective Subjective Date of Service: 08/08/23 Reason For Visit: Depression Subjective Notes: Conditional Voluntary Interim History: Pt reports poor sleep last night. She reports she can't sleep as pain is unmanageable. She denies SI/HI. Pt informed that she has upcoming appointment with ortho for follow up. She asks this automobile and property underwriter if I could order MRI which I told her her ortho provider will decide on type of image. She was last seen by them on 07/30 after surgery. Review of Systems Review of Systems Yes all other systems are reviewed and are negative Mental Status Exam Mental Status Exam Narrative: Appearance: wearing hospital gown, fair hygiene, in NAD Behavior: cooperative Psychomotor: no agitation or retardation noted Speech: clear, normal rate/rhythm/volume, spontaneous TP: linear TC: feeling overwhelmed about leg pain Mood: depressed SI: denies HI: denies VH/AH: none Delusions: none Insight/judgment: fair x 2. Memory/cog: alert, oriented x 3. Diagnostics Vital Signs (24Hr): Vital Signs - 24 hr 08/07/23 20:25 08/08/23 08:45 Temperature 97.1 F 97.5 F Pulse Rate 81 82 Respiratory Rate 18 18 Blood Pressure 161/74 H 134/73 Pulse Oximetry 96 95 Oxygen Delivery Method Room Air Room Air BMI result Body Mass Index 36.8 Labs 08/04/23 19:51 08/07/23 07:57 Labs: Laboratory Results - last 48 hr 08/07/23 07:57 Sodium 139 Potassium 4.3 Chloride 100 Carbon Dioxide 29 Anion Gap 14 BUN 18 H Creatinine 0.92 Estim Creat Clear Calc 75.1 Estimated GFR > 60 Fasting Glucose 147 H Estimat Average Glucose 148 Hemoglobin A1c % 6.8 H Calcium 8.9 Total Bilirubin 0.3 AST 12 ALT 9 Alkaline Phosphatase 118 H Total Protein 6.9 Albumin 3.8 Triglycerides 128 Cholesterol 200 H LDL Cholesterol, Calc 113 H HDL Cholesterol 62 Vitamin B12 362 TSH 2.56 Imaging Radiology Impressions: ITS Impressions Venous Duplex 08/04/23 18:58 IMPRESSION: No DVT demonstrated in the left lower extremity. Medications Medications Current Medications Acetaminophen (Acetaminophen 325 Mg Tablet) 975 mg PO Q8H PRN PRN Reason: Pain, Moderate(Pain Scale 4-6) Last Admin: 08/08/23 02:22 Dose: 975 mg Al Hydroxide/Mg Hydroxide (Magnesium Hydrox/Alum Hydrox 30 Ml Oral.Susp) 30 ml PO Q6H PRN PRN Reason: Heartburn/Nausea Albuterol Sulfate (Albuterol Sulfate 90 Mcg 8 Gm Inhaler) 2 puff INHALE Q4H PRN PRN Reason: Wheezing Last Admin: 08/05/23 08:05 Dose: 2 puff Aripiprazole (Aripiprazole 10 Mg Tablet) 10 mg PO DAILY [facility] Last Admin: 08/08/23 08:55 Dose: 10 mg Clonazepam (Clonazepam 1 Mg Tablet) 1 mg PO BID [facility] Last Admin: 08/08/23 08:55 Dose: 1 mg Gabapentin (Gabapentin 300 Mg Capsule) 600 mg PO BEDTIME [facility] Last Admin: 08/07/23 20:40 Dose: 600 mg Gabapentin (Gabapentin 300 Mg Capsule) 300 mg PO DAILY [facility] Last Admin: 08/08/23 08:54 Dose: 300 mg Hydrochlorothiazide (Hydrochlorothiazide 25 Mg Tablet) 50 mg PO DAILY [facility]; Protocol Last Admin: 08/08/23 08:55 Dose: 50 mg Lactulose (Lactulose 20 Gm/30 Ml Solution) 20 gm PO BID [facility] Last Admin: 08/08/23 08:55 Dose: 20 gm Magnesium Hydroxide (Milk Of Magnesia 30 Ml Oral.Susp) 30 ml PO DAILY PRN PRN Reason: Constipation Metformin HCl (Metformin Hcl Er 500 Mg Tab.Er.24h) 500 mg PO BIDWM [facility] Last Admin: 08/08/23 08:55 Dose: 500 mg Oxycodone HCl (Oxycodone Hcl Immed Release 5 Mg Tablet) 5 mg PO Q6H PRN PRN Reason: Pain, Severe (Pain Scale 7-10) Last Admin: 08/08/23 05:59 Dose: 5 mg Polyethylene Glycol (Polyethylene Glycol 3350 17 Gm Powd.Pack) 17 gm PO DAILY [facility] Last Admin: 08/08/23 08:55 Dose: 17 gm Senna/Docusate Sodium (Sennosides/Docusate Sodium Tablet) 2 tab PO BID [facility] Last Admin: 08/08/23 08:55 Dose: 2 tab Trazodone HCl (Trazodone Hcl 100 Mg Tablet) 150 mg PO BEDTIME [facility] Last Admin: 08/07/23 20:41 Dose: 150 mg Trazodone HCl (Trazodone Hcl 50 Mg Tablet) 50 mg PO BEDTIME PRN PRN Reason: Insomnia Last Admin: 08/07/23 01:25 Dose: 50 mg Venlafaxine HCl (Venlafaxine Hcl Er 75 Mg Cap.Er.24h) 225 mg PO DAILY [facility] Last Admin: 08/08/23 08:53 Dose: 225 mg Allergies Allergies Allergy/AdvReac Type Severity Reaction Status Date / Time morphine [MORPHINE] Allergy Intermediate PALPITATIONS, Verified 07/31/23 13:36 tachicardia quetiapine [Seroquel] Allergy Intermediate Aggitation Verified 07/31/23 13:36 orphenadrine [ORPHENADRINE] AdvReac Intermediate RAPID Verified 07/31/23 13:36 HEART RATE Assessment & Plan Assessment & Plan (1) MDD (major depressive disorder), recurrent episode, moderate: Status: Acute Code(s): F33.1 - Major depressive disorder, recurrent, moderate Plan Mrs. Rivas is a 63 year-old woman with hx of MDD who initially self presented to [facility] reporting increase pain on back pain radiating to left leg. Pt had back surgery recently and was sent to short term rehab which she left AMA. She was seen on 07/30 by ortho PA, who recommended tylenol 1000mg po QID and oxycodone 5mg po qid. We discussed risks, benefits and alternative treatment options, increase gabapentin at night 600mg po qhs and 300mg po daily. continue effexor. No signs of psychosis. PLAN 1. Admit to S1, CV, 15 minutes checks 2. continue gabapentin 600mg po qhs, 300mg po daily. continue effexor 225mg po daily 3. obtain collateral information 4. aftercare planning. Reason for continued inpatient stay Substantial Risk for: inability to function Time Spent With Patient Time: Total time managing care of this patient today ____ minutes.
[2023-08-08 18:00] VITALS: BP 128/57; PULSE 85; RESP 18; TEMP 37; O2SAT 95
[2023-08-08] MEDS: Gabapentin 300 MG CAPSULE 600 MG PO (21:23)
[2023-08-08] MEDS: traZODone HCL 100 MG TABLET 150 MG PO (21:24)
[2023-08-09] MEDS: Acetaminophen 325 MG TABLET 975 MG PO ×2 (02:13→20:01)
[2023-08-09] MEDS: oxyCODONE HCl Immed Release 5 MG TABLET PO ×3 (02:14→20:01)
[2023-08-09] MEDS: traZODone HCL 50 MG TABLET PO (02:15)
[2023-08-09 08:00] VITALS: BP 132/65; PULSE 84; RESP 18; TEMP 36.8; O2SAT 99
[2023-08-09] MEDS: metFORMIN HCl ER 500 MG TAB.ER.24H PO ×2 (08:40→16:37)
[2023-08-09] MEDS: Sennosides/Docusate Sodium TABLET 2 TAB PO ×2 (08:40→19:59)
[2023-08-09] MEDS: hydroCHLOROthiazide 25 MG TABLET 50 MG PO (08:40)
[2023-08-09] MEDS: Venlafaxine HCl ER 75 MG CAP.ER.24H 225 MG PO (08:41)
[2023-08-09] MEDS: polyethylene glycoL 3350 17 GM POWD.PACK PO (08:41)
[2023-08-09] MEDS: ARIPiprazole 10 MG TABLET PO (08:41)
[2023-08-09] MEDS: Gabapentin 300 MG CAPSULE PO (08:41)
[2023-08-09] MEDS: clonazePAM 1 MG TABLET PO ×2 (08:41→19:59)
--- NOTE | 2023-08-09 09:06 | HO.PSYCHPN ---
Subjective Subjective Date of Service: 08/09/23 Reason For Visit: Depression Subjective Notes: Conditional Voluntary Interim History: The nursing staff reported the patient slept for 5 hours she slept well asking for pain medication. She denies auditory hallucinations. On interview the patient denies new symptoms, redirectable. Complaints of chronic back pain. Mental Status Exam Mental Status Exam Patient Appearance: Appropriate Patient Orientation: Person Level of Consciousness: Awake Patient Behavior: Guarded and Passive Mood Description: Calm Affect Description: Constricted Patient Cognition Impaired: Yes Ability to Follow Directions: Good Speech Pattern: Clear Hallucinations: None Delusions: Not Present Thought Process: Distracted Thought Content: positive for [place] and positive for Circumstantial Judgement: Fair Diagnostics Vital Signs (24Hr): Vital Signs - 24 hr 08/08/23 18:00 Temperature 98.6 F Pulse Rate 85 Respiratory Rate 18 Blood Pressure 128/57 L Pulse Oximetry 95 Oxygen Delivery Method Room Air BMI result Body Mass Index 36.8 Labs 08/04/23 19:51 08/07/23 07:57 Imaging Radiology Impressions: ITS Impressions Venous Duplex 08/04/23 18:58 IMPRESSION: No DVT demonstrated in the left lower extremity. Medications Medications Current Medications Acetaminophen (Acetaminophen 325 Mg Tablet) 975 mg PO Q8H PRN PRN Reason: Pain, Moderate(Pain Scale 4-6) Last Admin: 08/09/23 02:13 Dose: 975 mg Al Hydroxide/Mg Hydroxide (Magnesium Hydrox/Alum Hydrox 30 Ml Oral.Susp) 30 ml PO Q6H PRN PRN Reason: Heartburn/Nausea Albuterol Sulfate (Albuterol Sulfate 90 Mcg 8 Gm Inhaler) 2 puff INHALE Q4H PRN PRN Reason: Wheezing Last Admin: 08/05/23 08:05 Dose: 2 puff Aripiprazole (Aripiprazole 10 Mg Tablet) 10 mg PO DAILY [facility] Last Admin: 08/09/23 08:41 Dose: 10 mg Clonazepam (Clonazepam 1 Mg Tablet) 1 mg PO BID [facility] Last Admin: 08/09/23 08:41 Dose: 1 mg Gabapentin (Gabapentin 300 Mg Capsule) 600 mg PO BEDTIME [facility] Last Admin: 08/08/23 21:23 Dose: 600 mg Gabapentin (Gabapentin 300 Mg Capsule) 300 mg PO DAILY [facility] Last Admin: 08/09/23 08:41 Dose: 300 mg Hydrochlorothiazide (Hydrochlorothiazide 25 Mg Tablet) 50 mg PO DAILY [facility]; Protocol Last Admin: 08/09/23 08:40 Dose: 50 mg Magnesium Hydroxide (Milk Of Magnesia 30 Ml Oral.Susp) 30 ml PO DAILY PRN PRN Reason: Constipation Metformin HCl (Metformin Hcl Er 500 Mg Tab.Er.24h) 500 mg PO BIDWM [facility] Last Admin: 08/09/23 08:40 Dose: 500 mg Oxycodone HCl (Oxycodone Hcl Immed Release 5 Mg Tablet) 5 mg PO Q6H PRN PRN Reason: Pain, Severe (Pain Scale 7-10) Last Admin: 08/09/23 02:14 Dose: 5 mg Polyethylene Glycol (Polyethylene Glycol 3350 17 Gm Powd.Pack) 17 gm PO DAILY [facility] Last Admin: 08/09/23 08:41 Dose: 17 gm Senna/Docusate Sodium (Sennosides/Docusate Sodium Tablet) 2 tab PO BID [facility] Last Admin: 08/09/23 08:40 Dose: 2 tab Trazodone HCl (Trazodone Hcl 100 Mg Tablet) 150 mg PO BEDTIME [facility] Last Admin: 08/08/23 21:24 Dose: 150 mg Trazodone HCl (Trazodone Hcl 50 Mg Tablet) 50 mg PO BEDTIME PRN PRN Reason: Insomnia Last Admin: 08/09/23 02:15 Dose: 50 mg Venlafaxine HCl (Venlafaxine Hcl Er 75 Mg Cap.Er.24h) 225 mg PO DAILY [facility] Last Admin: 08/09/23 08:41 Dose: 225 mg Allergies Allergies Allergy/AdvReac Type Severity Reaction Status Date / Time morphine [MORPHINE] Allergy Intermediate PALPITATIONS, Verified 07/31/23 13:36 tachicardia quetiapine [Seroquel] Allergy Intermediate Aggitation Verified 07/31/23 13:36 orphenadrine [ORPHENADRINE] AdvReac Intermediate RAPID Verified 07/31/23 13:36 HEART RATE Assessment & Plan Assessment & Plan (1) MDD (major depressive disorder), recurrent episode, moderate: Status: Acute Code(s): F33.1 - Major depressive disorder, recurrent, moderate Plan Mrs. Rivas is a 63 year-old woman with hx of MDD who initially self presented to [facility] reporting increase pain on back pain radiating to left leg. Pt had back surgery recently and was sent to short term rehab which she left AMA. She was seen on 07/30 by vania DENISE, who recommended tylenol 1000mg po QID and oxycodone 5mg po qid. We discussed risks, benefits and alternative treatment options, increase gabapentin at night 600mg po qhs and 300mg po daily. continue effexor. No signs of psychosis. PLAN 1. Admit to S1, CV, 15 minutes checks 2. continue gabapentin 600mg po qhs, 300mg po daily. continue effexor 225mg po daily 3. obtain collateral information 4. aftercare planning. Reason for continued inpatient stay Substantial Risk for: inability to function, rapid decompensation and med/psych decompensation Time Spent With Patient Time: Total time managing care of this patient today __20__ minutes.
--- NOTE | 2023-08-09 13:04 | HO.PM.IMCN ---
History of Present Illness Data of Consult Service Date: 08/09/23 Requesting physician: Teto Osborn Primary Care Provider: Unknown Physician HPI Reason for consult: back pain 63-year-old female who is s/p L4-5 transkambin lumbar interbody fusion on 07/22/23. She was discharged from the hospital to a acute inpatient rehab facility, however left against medical advice because she reports not receiving pain medication despite being sent there with a prescription of oxycodone. She has presented to the emergency department twice and has since been seen by neurosurgery in clinic. Per neuro spine note, patient has been forgetful since surgery and never picked up her pain medications. She is now admitted to geriatic psychiatry with consult placed to hospitalist service for evaluation of low back pain. On review of chart/STORY TELLER it appears she should be taking tylenol/ibuprofen and using oxycodone 5mg prn per general surgery. Today she is reporting severe low back pain rated as a 10/10, improved to an 8/10 following narcotic administration. The pain radiates into the LLE, similar to symptoms prior to surgery. No weakness/paresthesias. Ambulates with a walker. No saddle anesthesia, acute bowel/bladder dysfunction. Review of Systems Review of Systems: Yes all other systems are reviewed and are negative [facility] Medical History Weakness Arthritis History of brain inflammation Protrusion of lumbar intervertebral disc Tinnitus Venous insufficiency Osteoarthritis Loss of hair History of headache Fibromyositis Fatigue Hyperlipidemia HTN (hypertension) Continuous opioid dependence Sinusitis Anemia Anxiety Diverticulosis Chronic idiopathic constipation Migraine Asthma Depression Diabetes 1.5, managed as type 2 Fibromyalgia Family History Mother Colon cancer Surgical History S/P panniculectomy Hx of hysterectomy Hx of oophorectomy Hx of bilateral breast reduction surgery H/O colonoscopy History of pubovaginal sling Gastric bypass status for obesity Social History Household Members: Spouse and Children Household Members Other:: lives alone Housing: House Are you a primary family day care provider to a significant other at home: No Do you presently have visiting nurse or other home services: Yes ([employer]) Alcohol intake: unknown Comment: IV infiltrated Patient Tobacco Use Status: Never used Tobacco Smoked in Last 30 Days: No Second Hand Smoke Exposure: No Use of substances other than those prescribed or required for medical reasons: No Currently Displaying Signs/Symptoms of Drug Intoxication Withdrawal: No Any prior treatment program specific to substance use: No Have you been hit, kicked, punched, or otherwise hurt by someone within the past year? If so, by whom?: No Do you feel safe in your current relationship?: Yes Is there a partner from a previous relationship who is making you feel unsafe now?: No Are you made to feel afraid or neglected: No Jehov[employer] Witness Healthcare Practices: Holiness Zoroastrianism Advance Directives: No Advance Directives Information Provided: No Do you have thoughts of harming others: None Do you have a plan to hurt others: No Plan Recently lost weight without trying: Yes How much weight loss: 14-23 pounds Eating poorly because of decreased appetite: Yes Nutrition screen score: 5 Nutrition Risks: No Nutritional Risk Patient : No : No Poor oral hygiene: No service: No Current occupational status: disabled Sexual orientation: Straight/Heterosexual Gender identity: Female Meds Allergies Allergy/AdvReac Type Severity Reaction Status Date / Time morphine [MORPHINE] Allergy Intermediate PALPITATIONS, Verified 07/31/23 13:36 tachicardia quetiapine [Seroquel] Allergy Intermediate Aggitation Verified 07/31/23 13:36 orphenadrine [ORPHENADRINE] AdvReac Intermediate RAPID Verified 07/31/23 13:36 HEART RATE Active Medications: Current Medications Acetaminophen (Acetaminophen 325 Mg Tablet) 975 mg PO Q8H PRN PRN Reason: Pain, Moderate(Pain Scale 4-6) Last Admin: 08/09/23 02:13 Dose: 975 mg Al Hydroxide/Mg Hydroxide (Magnesium Hydrox/Alum Hydrox 30 Ml Oral.Susp) 30 ml PO Q6H PRN PRN Reason: Heartburn/Nausea Albuterol Sulfate (Albuterol Sulfate 90 Mcg 8 Gm Inhaler) 2 puff INHALE Q4H PRN PRN Reason: Wheezing Last Admin: 08/05/23 08:05 Dose: 2 puff Aripiprazole (Aripiprazole 10 Mg Tablet) 10 mg PO DAILY [facility] Last Admin: 08/09/23 08:41 Dose: 10 mg Clonazepam (Clonazepam 1 Mg Tablet) 1 mg PO BID [facility] Last Admin: 08/09/23 08:41 Dose: 1 mg Gabapentin (Gabapentin 300 Mg Capsule) 600 mg PO BEDTIME [facility] Last Admin: 08/08/23 21:23 Dose: 600 mg Gabapentin (Gabapentin 300 Mg Capsule) 300 mg PO DAILY [facility] Last Admin: 08/09/23 08:41 Dose: 300 mg Hydrochlorothiazide (Hydrochlorothiazide 25 Mg Tablet) 50 mg PO DAILY [facility]; Protocol Last Admin: 08/09/23 08:40 Dose: 50 mg Magnesium Hydroxide (Milk Of Magnesia 30 Ml Oral.Susp) 30 ml PO DAILY PRN PRN Reason: Constipation Metformin HCl (Metformin Hcl Er 500 Mg Tab.Er.24h) 500 mg PO BIDWM [facility] Last Admin: 08/09/23 08:40 Dose: 500 mg Oxycodone HCl (Oxycodone Hcl Immed Release 5 Mg Tablet) 5 mg PO Q6H PRN PRN Reason: Pain, Severe (Pain Scale 7-10) Last Admin: 08/09/23 10:16 Dose: 5 mg Polyethylene Glycol (Polyethylene Glycol 3350 17 Gm Powd.Pack) 17 gm PO DAILY [facility] Last Admin: 08/09/23 08:41 Dose: 17 gm Senna/Docusate Sodium (Sennosides/Docusate Sodium Tablet) 2 tab PO BID [facility] Last Admin: 08/09/23 08:40 Dose: 2 tab Trazodone HCl (Trazodone Hcl 100 Mg Tablet) 150 mg PO BEDTIME [facility] Last Admin: 08/08/23 21:24 Dose: 150 mg Trazodone HCl (Trazodone Hcl 50 Mg Tablet) 50 mg PO BEDTIME PRN PRN Reason: Insomnia Last Admin: 08/09/23 02:15 Dose: 50 mg Venlafaxine HCl (Venlafaxine Hcl Er 75 Mg Cap.Er.24h) 225 mg PO DAILY [facility] Last Admin: 08/09/23 08:41 Dose: 225 mg Home Medications Medication Instructions Recorded Confirmed Last Taken Type metformin 500 mg tablet,extended 500 mg PO BID 12/11/22 08/05/23 08/04/23 08:00 History release 24 hr trazodone 100 mg tablet 300 mg PO BEDTIME 12/11/22 08/05/23 08/03/23 20:00 History gabapentin 300 mg capsule 300 mg PO TID pain 07/09/23 08/05/23 08/04/23 08:00 History hydrochlorothiazide 50 mg tablet 50 mg QAM 07/21/23 08/05/23 08/04/23 08:00 History venlafaxine 150 mg 225 mg PO DAILY 07/21/23 08/05/23 08/04/23 08:00 History capsule,extended release 24 hr Physical Exam Vital Signs and Narrative: Vital Signs: Last Vital Signs Temp 98.2 F 08/09/23 08:00 Pulse 84 08/09/23 08:00 Resp 18 08/09/23 08:00 BP 132/65 08/09/23 08:00 Pulse Ox 99 08/09/23 08:00 O2 Del Method Room Air 08/09/23 08:00 BMI result Body Mass Index 36.8 Constitutional - Awake and Alert, No apparent distress, resting comfortably in bed Extremities - no calf tenderness bilaterally, no swelling Skin - Warm/Dry MSK - no midline tenderness to palpation, no paraspinal ttp. There is tenderness over the left buttock/si joint. Negative straight leg raises. Neurological - Alert & oriented x3, 5/5 strength BUE and BLE, sensation in tact, symmetric patellar reflexes Psychological - Appropriate affect Results Labs 08/04/23 19:51 08/07/23 07:57 Assessment and Plan (1) Lumbar radiculopathy: Status: Acute Plan 63-year-old female who is s/p L4-5 transkambin lumbar interbody fusion on 07/22/23. She was discharged from the hospital to a acute inpatient rehab facility, however left against medical advice because she reports not receiving pain medication despite being sent there with a prescription of oxycodone. She has presented to the emergency department twice this week, without reaching out to our office or attempting to make an appointment with our service. #Low back pain with LLE radiculopathy -no alarm symptoms to warrant urgent imaging -Continue with plan as outlined by neurosurgery including tylenol/ibuprofen and oxycodone 5mg prn -Recommned reaching out to Dr. Leon/Reilly for further recommendations including if prednisone taper (in place of ibuprofen) would be appropropriate for patient. Would not administer ibuprofen and prednisone at the same time. Would defer administration/adjustment of narcotic medications to psychiatry/neurosurgery -hear/ice. encourage oob Thank you for allowing me to participate in this consult. Signing off at this time. Please do not hesitate to call for further questions or for any acute medical issues
[2023-08-09 18:00] VITALS: BP 152/70; PULSE 79; RESP 18; TEMP 36.4; O2SAT 96
[2023-08-09] MEDS: traZODone HCL 100 MG TABLET 150 MG PO (19:59)
[2023-08-09] MEDS: Gabapentin 300 MG CAPSULE 600 MG PO (19:59)
[2023-08-10] MEDS: traZODone HCL 50 MG TABLET PO ×2 (00:34→21:41)
[2023-08-10] MEDS: oxyCODONE HCl Immed Release 5 MG TABLET PO ×5 (03:21→21:41)
[2023-08-10] MEDS: Acetaminophen 325 MG TABLET 975 MG PO ×3 (03:21→21:41)
[2023-08-10 05:57] VITALS: BP 140/79; PULSE 70; RESP 18; TEMP 36.6; O2SAT 93
[2023-08-10 08:00] VITALS: BP 138/84; PULSE 76; RESP 16; TEMP 36; O2SAT 96
[2023-08-10] MEDS: clonazePAM 1 MG TABLET PO ×2 (08:12→20:39)
[2023-08-10] MEDS: Venlafaxine HCl ER 75 MG CAP.ER.24H 225 MG PO (08:12)
[2023-08-10] MEDS: Gabapentin 300 MG CAPSULE PO (08:12)
[2023-08-10] MEDS: ARIPiprazole 10 MG TABLET PO (08:13)
[2023-08-10] MEDS: hydroCHLOROthiazide 25 MG TABLET 50 MG PO (08:13)
[2023-08-10] MEDS: metFORMIN HCl ER 500 MG TAB.ER.24H PO ×2 (08:13→16:45)
[2023-08-10] MEDS: Sennosides/Docusate Sodium TABLET 2 TAB PO ×2 (08:13→20:40)
--- NOTE | 2023-08-10 11:48 | HO.PSYCHPN ---
Subjective Subjective Date of Service: 08/10/23 Reason For Visit: Depression Subjective Notes: Conditional Voluntary Interim History: The nursing staff reported the patient had been complaining of pain. The hospitalist rechecked and given some extra oxycodone last night. She slept 7 hours. On interview the patient reports that she has pain in her back. No new symptoms no evidence of psychosis at this moment. Mental Status Exam Mental Status Exam Patient Appearance: Appropriate Patient Orientation: Person Level of Consciousness: Awake Patient Behavior: Guarded and Passive Mood Description: Withdrawn Affect Description: Constricted Patient Cognition Impaired: Yes Ability to Follow Directions: Good Speech Pattern: Clear Hallucinations: None Delusions: Not Present Thought Process: Distracted and Slowed Thinking Thought Content: positive for [place] and positive for Poverty of Content Judgement: Fair Diagnostics Vital Signs (24Hr): Vital Signs - 24 hr 08/09/23 18:00 08/10/23 05:57 08/10/23 08:00 Temperature 97.6 F 97.9 F 96.8 F Pulse Rate 79 70 76 Respiratory Rate 18 18 16 Blood Pressure 152/70 H 140/79 H 138/84 Pulse Oximetry 96 93 96 Oxygen Delivery Method Room Air Room Air Room Air BMI result Body Mass Index 36.8 Labs 08/04/23 19:51 08/07/23 07:57 Imaging Radiology Impressions: ITS Impressions Venous Duplex 08/04/23 18:58 IMPRESSION: No DVT demonstrated in the left lower extremity. Medications Medications Current Medications Acetaminophen (Acetaminophen 325 Mg Tablet) 975 mg PO Q8H PRN PRN Reason: Pain, Moderate(Pain Scale 4-6) Last Admin: 08/10/23 03:21 Dose: 975 mg Al Hydroxide/Mg Hydroxide (Magnesium Hydrox/Alum Hydrox 30 Ml Oral.Susp) 30 ml PO Q6H PRN PRN Reason: Heartburn/Nausea Albuterol Sulfate (Albuterol Sulfate 90 Mcg 8 Gm Inhaler) 2 puff INHALE Q4H PRN PRN Reason: Wheezing Last Admin: 08/05/23 08:05 Dose: 2 puff Aripiprazole (Aripiprazole 10 Mg Tablet) 10 mg PO DAILY [facility] Last Admin: 08/10/23 08:13 Dose: 10 mg Clonazepam (Clonazepam 1 Mg Tablet) 1 mg PO BID [facility] Last Admin: 08/10/23 08:12 Dose: 1 mg Gabapentin (Gabapentin 300 Mg Capsule) 600 mg PO BEDTIME [facility] Last Admin: 08/09/23 19:59 Dose: 600 mg Gabapentin (Gabapentin 300 Mg Capsule) 300 mg PO DAILY [facility] Last Admin: 08/10/23 08:12 Dose: 300 mg Hydrochlorothiazide (Hydrochlorothiazide 25 Mg Tablet) 50 mg PO DAILY [facility]; Protocol Last Admin: 08/10/23 08:13 Dose: 50 mg Magnesium Hydroxide (Milk Of Magnesia 30 Ml Oral.Susp) 30 ml PO DAILY PRN PRN Reason: Constipation Metformin HCl (Metformin Hcl Er 500 Mg Tab.Er.24h) 500 mg PO BIDWM [facility] Last Admin: 08/10/23 08:13 Dose: 500 mg Oxycodone HCl (Oxycodone Hcl Immed Release 5 Mg Tablet) 5 mg PO Q6H PRN PRN Reason: Pain, Severe (Pain Scale 7-10) Last Admin: 08/10/23 09:21 Dose: 5 mg Polyethylene Glycol (Polyethylene Glycol 3350 17 Gm Powd.Pack) 17 gm PO DAILY [facility] Last Admin: 08/10/23 08:18 Dose: Not Given Senna/Docusate Sodium (Sennosides/Docusate Sodium Tablet) 2 tab PO BID [facility] Last Admin: 08/10/23 08:13 Dose: 2 tab Trazodone HCl (Trazodone Hcl 100 Mg Tablet) 150 mg PO BEDTIME [facility] Last Admin: 08/09/23 19:59 Dose: 150 mg Trazodone HCl (Trazodone Hcl 50 Mg Tablet) 50 mg PO BEDTIME PRN PRN Reason: Insomnia Last Admin: 08/10/23 00:34 Dose: 50 mg Venlafaxine HCl (Venlafaxine Hcl Er 75 Mg Cap.Er.24h) 225 mg PO DAILY [facility] Last Admin: 08/10/23 08:12 Dose: 225 mg Allergies Allergies Allergy/AdvReac Type Severity Reaction Status Date / Time morphine [MORPHINE] Allergy Intermediate PALPITATIONS, Verified 07/31/23 13:36 tachicardia quetiapine [Seroquel] Allergy Intermediate Aggitation Verified 07/31/23 13:36 orphenadrine [ORPHENADRINE] AdvReac Intermediate RAPID Verified 07/31/23 13:36 HEART RATE Assessment & Plan Assessment & Plan (1) Lumbar radiculopathy: Status: Acute Code(s): M54.16 - Radiculopathy, lumbar region Plan 63-year-old female who is s/p L4-5 transkambin lumbar interbody fusion on 07/22/23. She was discharged from the hospital to a acute inpatient rehab facility, however left against medical advice because she reports not receiving pain medication despite being sent there with a prescription of oxycodone. She has presented to the emergency department twice this week, without reaching out to our office or attempting to make an appointment with our service. #Low back pain with LLE radiculopathy -no alarm symptoms to warrant urgent imaging -Continue with plan as outlined by neurosurgery including tylenol/ibuprofen and oxycodone 5mg prn -Recommned reaching out to Dr. Leon/Reilly for further recommendations including if prednisone taper (in place of ibuprofen) would be appropropriate for patient. Would not administer ibuprofen and prednisone at the same time. Would defer administration/adjustment of narcotic medications to psychiatry/neurosurgery -hear/ice. encourage oob Plan 1. Continue with same treatment. 2. We will try to contact his surgeon during the week and figure it out aftercare. Reason for continued inpatient stay Substantial Risk for: inability to function, rapid decompensation and med/psych decompensation Time Spent With Patient Time: Total time managing care of this patient today _20___ minutes.
[2023-08-10 18:00] VITALS: BP 140/70; PULSE 81; RESP 18; TEMP 37; O2SAT 96
[2023-08-10] MEDS: Gabapentin 300 MG CAPSULE 600 MG PO (20:40)
[2023-08-10] MEDS: traZODone HCL 100 MG TABLET 150 MG PO (20:40)
[2023-08-10] MEDS: Magnesium Hydrox/Alum Hydrox 30 ML ORAL.SUSP PO (21:13)
[2023-08-11] MEDS: oxyCODONE HCl Immed Release 5 MG TABLET PO ×3 (04:34→21:18)
[2023-08-11] MEDS: Acetaminophen 325 MG TABLET 975 MG PO ×2 (06:35→16:23)
[2023-08-11 07:45] VITALS: BP 147/65; PULSE 78; RESP 18; TEMP 36.4; O2SAT 96
[2023-08-11] MEDS: hydroCHLOROthiazide 25 MG TABLET 50 MG PO (08:53)
[2023-08-11] MEDS: Venlafaxine HCl ER 75 MG CAP.ER.24H 225 MG PO (08:53)
[2023-08-11] MEDS: ARIPiprazole 10 MG TABLET PO (08:54)
[2023-08-11] MEDS: Sennosides/Docusate Sodium TABLET 2 TAB PO ×2 (08:54→20:34)
[2023-08-11] MEDS: metFORMIN HCl ER 500 MG TAB.ER.24H PO ×2 (08:54→16:33)
[2023-08-11] MEDS: polyethylene glycoL 3350 17 GM POWD.PACK PO (08:55)
[2023-08-11] MEDS: clonazePAM 1 MG TABLET PO ×2 (08:55→20:34)
[2023-08-11] MEDS: Gabapentin 300 MG CAPSULE PO (08:55)
--- NOTE | 2023-08-11 09:48 | HO.PSYCHPN ---
Subjective Subjective Date of Service: 08/11/23 Reason For Visit: Depression Subjective Notes: Conditional Voluntary Interim History: Pt reports some difficulty sleeping related to leg pain. Seen by hospitalist who recommends following up with ortho. Pt denies SI/HI. She is taking medications as prescribed. She has been visible on the unit and social with select peers. No behavioral concerns Plan to d/c tomorrow. follow up appointments with psych, ortho have been done. [facility] referral. Mental Status Exam Mental Status Exam Narrative: Appearance: wearing hospital gown, fair hygiene, in NAD Behavior: cooperative Psychomotor: no agitation or retardation noted Speech: clear, normal rate/rhythm/volume, spontaneous TP: linear TC: feeling overwhelmed about leg pain Mood: better SI: denies HI: denies VH/AH: none Delusions: none Insight/judgment: fair x 2. Memory/cog: alert, oriented x 3. Diagnostics Vital Signs (24Hr): Vital Signs - 24 hr 08/10/23 18:00 08/11/23 07:45 Temperature 98.6 F 97.6 F Pulse Rate 81 78 Respiratory Rate 18 18 Blood Pressure 140/70 H 147/65 H Pulse Oximetry 96 96 Oxygen Delivery Method Room Air Room Air BMI result Body Mass Index 36.8 Labs 08/04/23 19:51 08/07/23 07:57 Imaging Radiology Impressions: ITS Impressions Venous Duplex 08/04/23 18:58 IMPRESSION: No DVT demonstrated in the left lower extremity. Medications Medications Current Medications Acetaminophen (Acetaminophen 325 Mg Tablet) 975 mg PO Q8H PRN PRN Reason: Pain, Moderate(Pain Scale 4-6) Last Admin: 08/11/23 06:35 Dose: 975 mg Al Hydroxide/Mg Hydroxide (Magnesium Hydrox/Alum Hydrox 30 Ml Oral.Susp) 30 ml PO Q6H PRN PRN Reason: Heartburn/Nausea Last Admin: 08/10/23 21:13 Dose: 30 ml Albuterol Sulfate (Albuterol Sulfate 90 Mcg 8 Gm Inhaler) 2 puff INHALE Q4H PRN PRN Reason: Wheezing Last Admin: 08/05/23 08:05 Dose: 2 puff Aripiprazole (Aripiprazole 10 Mg Tablet) 10 mg PO DAILY [facility] Last Admin: 08/11/23 08:54 Dose: 10 mg Clonazepam (Clonazepam 1 Mg Tablet) 1 mg PO BID [facility] Last Admin: 08/11/23 08:55 Dose: 1 mg Gabapentin (Gabapentin 300 Mg Capsule) 600 mg PO BEDTIME [facility] Last Admin: 08/10/23 20:40 Dose: 600 mg Gabapentin (Gabapentin 300 Mg Capsule) 300 mg PO DAILY [facility] Last Admin: 08/11/23 08:55 Dose: 300 mg Hydrochlorothiazide (Hydrochlorothiazide 25 Mg Tablet) 50 mg PO DAILY [facility]; Protocol Last Admin: 08/11/23 08:53 Dose: 50 mg Magnesium Hydroxide (Milk Of Magnesia 30 Ml Oral.Susp) 30 ml PO DAILY PRN PRN Reason: Constipation Metformin HCl (Metformin Hcl Er 500 Mg Tab.Er.24h) 500 mg PO BIDWM [facility] Last Admin: 08/11/23 08:54 Dose: 500 mg Oxycodone HCl (Oxycodone Hcl Immed Release 5 Mg Tablet) 5 mg PO Q6H PRN PRN Reason: Pain, Severe (Pain Scale 7-10) Last Admin: 08/11/23 04:34 Dose: 5 mg Polyethylene Glycol (Polyethylene Glycol 3350 17 Gm Powd.Pack) 17 gm PO DAILY [facility] Last Admin: 08/11/23 08:55 Dose: 17 gm Senna/Docusate Sodium (Sennosides/Docusate Sodium Tablet) 2 tab PO BID [facility] Last Admin: 08/11/23 08:54 Dose: 2 tab Trazodone HCl (Trazodone Hcl 100 Mg Tablet) 150 mg PO BEDTIME [facility] Last Admin: 08/10/23 20:40 Dose: 150 mg Trazodone HCl (Trazodone Hcl 50 Mg Tablet) 50 mg PO BEDTIME PRN PRN Reason: Insomnia Last Admin: 08/10/23 21:41 Dose: 50 mg Venlafaxine HCl (Venlafaxine Hcl Er 75 Mg Cap.Er.24h) 225 mg PO DAILY [facility] Last Admin: 08/11/23 08:53 Dose: 225 mg Allergies Allergies Allergy/AdvReac Type Severity Reaction Status Date / Time morphine [MORPHINE] Allergy Intermediate PALPITATIONS, Verified 07/31/23 13:36 tachicardia quetiapine [Seroquel] Allergy Intermediate Aggitation Verified 07/31/23 13:36 orphenadrine [ORPHENADRINE] AdvReac Intermediate RAPID Verified 07/31/23 13:36 HEART RATE Assessment & Plan Assessment & Plan (1) MDD (major depressive disorder), recurrent episode, moderate: Status: Acute Code(s): F33.1 - Major depressive disorder, recurrent, moderate Plan 63-year-old female who is s/p L4-5 transkambin lumbar interbody fusion on 07/22/23. She was discharged from the hospital to a acute inpatient rehab facility, however left against medical advice because she reports not receiving pain medication despite being sent there with a prescription of oxycodone. She has presented to the emergency department twice this week, without reaching out to our office or attempting to make an appointment with our service. #Low back pain with LLE radiculopathy -no alarm symptoms to warrant urgent imaging -Continue with plan as outlined by neurosurgery including tylenol/ibuprofen and oxycodone 5mg prn -Recommned reaching out to Dr. Leon/Reilly for further recommendations including if prednisone taper (in place of ibuprofen) would be appropropriate for patient. Would not administer ibuprofen and prednisone at the same time. Would defer administration/adjustment of narcotic medications to psychiatry/neurosurgery -hear/ice. encourage oob PSYCH 1. plan to d/c tomorrow. Reason for continued inpatient stay Substantial Risk for: inability to function Time Spent With Patient Time: Total time managing care of this patient today ____ minutes.
[2023-08-11] MEDS: Gabapentin 300 MG CAPSULE 600 MG PO (20:34)
[2023-08-11 20:37] VITALS: BP 150/65; PULSE 78; RESP 16; TEMP 36.5; O2SAT 97
[2023-08-11] MEDS: traZODone HCL 100 MG TABLET 150 MG PO (21:19)
[2023-08-11] MEDS: Albuterol Sulfate 90 MCG 8 GM INHALER 2 PUFF INHALE (22:27)
[2023-08-11] MEDS: traZODone HCL 50 MG TABLET PO (22:27)
[2023-08-12] MEDS: Acetaminophen 325 MG TABLET 975 MG PO ×2 (02:52→11:23)
[2023-08-12] MEDS: traZODone HCL 50 MG TABLET PO (02:52)
[2023-08-12] MEDS: oxyCODONE HCl Immed Release 5 MG TABLET PO ×2 (03:42→11:22)
[2023-08-12 08:33] VITALS: BP 151/68; PULSE 73; RESP 18; TEMP 35.9
[2023-08-12] MEDS: Venlafaxine HCl ER 75 MG CAP.ER.24H 225 MG PO (08:36)
[2023-08-12] MEDS: clonazePAM 1 MG TABLET PO (08:37)
[2023-08-12] MEDS: Gabapentin 300 MG CAPSULE PO (08:37)
[2023-08-12] MEDS: hydroCHLOROthiazide 25 MG TABLET 50 MG PO (08:37)
[2023-08-12] MEDS: metFORMIN HCl ER 500 MG TAB.ER.24H PO (08:37)
[2023-08-12] MEDS: Sennosides/Docusate Sodium TABLET 2 TAB PO (08:37)
[2023-08-12] MEDS: polyethylene glycoL 3350 17 GM POWD.PACK PO (08:37)
--- NOTE | 2023-08-12 08:51 | P.DS_ITS ---
DS: Providers Provider Date of Service: 08/12/23 Date of admission: 08/06/23 12:07 Date of discharge: 08/12/23 Primary care physician: Unknown Physician Consults: 08/09/23 10:40 Consult to Hospitalist Routine Comment: Consulting Provider: Hospitalist Reason For Exam: severe back pain, surgery 2 days ago DS: Diagnosis Discharge Diagnosis (1) MDD (major depressive disorder), recurrent episode, moderate: Status: Acute DS: Medications Discharge Medications Home Medications: Previous Rx's Medication Instructions Recorded clonazepam 1 mg tablet 1 mg PO BID 30 days #60 tabs 12/16/22 acetaminophen 500 mg capsule 1,000 mg (2 x 500 mg) PO TID PRN 08/12/23 pain #90 caps albuterol sulfate 90 mcg/actuation 1 inh inhalation QID PRN shortness 08/12/23 aerosol inhaler of breath or wheezing #6.7 grams gabapentin 300 mg capsule 300 mg PO DAILY #30 caps 08/12/23 gabapentin 600 mg tablet 600 mg PO BEDTIME #30 tabs 08/12/23 hydrochlorothiazide 50 mg tablet 50 mg PO DAILY #30 tabs 08/12/23 metformin 500 mg tablet,extended 500 mg PO BIDWM #60 tabs 08/12/23 release 24 hr oxycodone 5 mg tablet 5 mg PO Q6H PRN Pain, Severe (Pain 08/12/23 Scale 7-10) #0 tabs polyethylene glycol 3350 17 gram 17 g PO DAILY #30 ea 08/12/23 oral powder packet sennosides 8.6 mg-docusate sodium 2 tab PO BID #120 tabs 08/12/23 50 mg tablet (Senna Plus) trazodone 150 mg tablet 150 mg PO BEDTIME #30 tabs 08/12/23 venlafaxine 225 mg tablet,extended 225 mg PO DAILY #30 tabs 08/12/23 release 24 hr Mental Status Exam Mental Status Exam Narrative: Appearance: wearing hospital gown, fair hygiene, in NAD Behavior: cooperative Psychomotor: no agitation or retardation noted Speech: clear, normal rate/rhythm/volume, spontaneous TP: linear TC: feeling overwhelmed about leg pain Mood: better SI: denies HI: denies VH/AH: none Delusions: none Insight/judgment: fair x 2. Memory/cog: alert, oriented x 3. Data Data Completed and Pending Completed studies during hospitalization [Text1]: 08/05/23 08/06/23 08/07/23 18:36 08:20 07:57 Sodium 139 Potassium 4.3 Chloride 100 Carbon Dioxide 29 Anion Gap 14 BUN 18 H Creatinine 0.92 Estim Creat Clear Calc 75.1 Estimated GFR > 60 POC Glucose 179 H Fasting Glucose 147 H Estimat Average Glucose 148 Hemoglobin A1c % 6.8 H Calcium 8.9 Total Bilirubin 0.3 AST 12 ALT 9 Alkaline Phosphatase 118 H Total Protein 6.9 Albumin 3.8 Triglycerides 128 Cholesterol 200 H LDL Cholesterol, Calc 113 H HDL Cholesterol 62 Vitamin B12 362 TSH 2.56 COVID-19 (IGOR) Negative COVID-19 Clin Com See Note Imaging Diagnostic Imaging Impressions Venous Duplex 08/04/23 18:58 IMPRESSION: No DVT demonstrated in the left lower extremity. DS: Summary Hospital Course Hospital Course: Mrs. Rivas is a 63 year-old woman with hx of MDD who self presented to [facility] reporting increase pain lower back pain radiating to left leg. She reports pain worse after back surgery. Note that pt was sent to short term rehab after surgery and left AMA due to her complaining of uncontrollable pain. Per ortho provider, PA on 07/30- he recommended tylenol 1000mg po QID, oxycodone 5mg qid. On the unit, pt reports she has not slept for several days. She reports increase anxious and depressed mood secondary to lack of sleep and pain radiating to left leg after surgery. She denies SI/HI. No VH/AH. She had reported seeing some faces at night after surgery but reports she has not seen things that other's can't see. Past Psychiatric History: OP: Dr. Salas, [facility] h/o M3 stay in 2022 for depression. Medical Evaluation Reviewed: Yes HOSPITAL COURSE On the unit, Mrs. Rivas was admitted on a CV and placed on 15 minutes checks for safety. Pt reported main concern was related to pain radiating to left leg after surgery. Pt was last seen by ortho PA on 07/30 recommendation to continue oxycodone 5mg po qid, tylenol 1000mg TID, NSAID. Pt reported pain continued to be high. She was seen by hospitalist who did not consider additional imaging at this time was warranted. She denied SI/HI. She did not show any signs of psychosis or delusions while on the unit. Her sleep was intermittent. No behavioral concerns. Pt adviced to follow up with Ortho, next appointment is scheduled for 08/12. She is also adviced to follow up with PCP. Status at Discharge Functional status at discharge: uses cane/walker Overall status at discharge: patient is progressing back to baseline Time Spent with Patient Time attestation: Total time managing care of this patient today _35___ minutes. Time spent: Greater than 30 minutes Discharge Plan Discharge Anticipated Discharge Date/Time: 08/12/23 08:35 Patient Disposition: Home, Self-Care Discharge Diagnosis: MDD, recurrent, moderate Referrals: Dr. Frazier: [facility] [Other] - 08/28/23 12:00 pm (Hospital Discharge Appointment Scheduled appointment with psychiatric medication provider.) Andrew Marquezafane: [facility] [Other] - 08/14/23 12:00 pm (Hospital Discharge Appointment with Therapist Appointment is by telephone ) [facility] [Other] - 1 Week (Patient should follow-up with telephonic nurse case manager from [facility] for evaluation for services in home Home care services ) [facility] [Other] - 1 Week (Nurse will reach out to you tomorrow 4.324 to set up intake.) Orthopedic follow up [Other] - 08/13/23 10:00 am Physician,Dinah J [Primary Care Provider] - 08/20/23 2:15 pm (Your follow up has been scheduled for Friday08/20/23 at 2:15pm at the [facility] ) Discharge Medications: New albuterol sulfate 90 mcg/actuation HFA aerosol inhaler 1 inh inhalation QID PRN (Reason: shortness of breath or wheezing) Qty: 6.7 0RF trazodone 150 mg tablet 150 mg PO BEDTIME Qty: 30 0RF venlafaxine 225 mg tablet extended release 24hr 225 mg PO DAILY Qty: 30 0RF acetaminophen 500 mg capsule 1,000 mg PO TID PRN (Reason: pain) Qty: 90 0RF gabapentin 600 mg tablet 600 mg PO BEDTIME Qty: 30 0RF gabapentin 300 mg Capsule 300 mg PO DAILY Qty: 30 0RF oxycodone 5 mg Tablet 5 mg PO Q6H PRN (Reason: Pain, Severe (Pain Scale 7-10)) Qty: 0 0RF Rx Instructions: Partial Fill upon patient request. hydrochlorothiazide 50 mg tablet 50 mg PO DAILY Qty: 30 0RF polyethylene glycol 3350 17 gram powder in packet 17 g PO DAILY Qty: 30 0RF sennosides-docusate sodium [Senna Plus] 8.6-50 mg Tablet 2 tab PO BID Qty: 120 0RF metformin 500 mg Tablet Extended Release 24 Hr 500 mg PO BIDWM Qty: 60 0RF Continued clonazepam 1 mg tablet 1 mg PO BID 30 Days Qty: 60 0RF Discontinued metformin 500 mg tablet extended release 24 hr 500 mg PO BID trazodone 100 mg tablet 300 mg PO BEDTIME albuterol sulfate 90 mcg/actuation HFA aerosol inhaler 2 puff PO Q4-6H PRN (Reason: Wheezing) 30 Days Qty: 1 0RF aripiprazole 10 mg tablet 10 mg PO DAILY 30 Days Qty: 30 0RF gabapentin 300 mg capsule 300 mg PO TID hydrochlorothiazide 50 mg tablet 50 mg QAM venlafaxine 150 mg capsule,extended release 24hr 225 mg PO DAILY polyethylene glycol 3350 [Miralax] 17 gram/dose powder 17 g PO DAILY Qty: 238 0RF Discharge Orders: Discharge Order (Routine); Ordered 08/12/23 Ordered By: Michelle Chavira Diet: Diabetic diet Activity on Discharge: Walk with crutches Stand Alone Forms: Patient Portal Discharge page, Community Support Care Plan Goals: 1. Maintain mood 2. No SI/HI 3. no aggression towards self or others Health Concerns: Follow up with Ortho Follow up with PCP Plan of Treatment: 1. Take medications as prescribed 2. Go to nearest ED or call 911 in event of mergency Assessment: Pt's affect brighten's at times. No SI/HI. No signs of psychosis or delusions. S leep disrupted at times due to pain. Visible, social with peers. No behavioral concerns. Discharge Date/Time: 08/12/23 11:30
--- NOTE | 2023-08-12 11:56 | PC.NURSE ---
Pt. A & O X 4. Reports she has depression related to her pain, which she consistently reports as 9/10, but denies all other psych sx. Discharge instructions and medications reviewed with pt., who verbalized understanding. Pt. medicated with APAP and roxicodone prior to discharge. Pt. escorted off unit accompanied by this RN via WC and to [facility] awaiting at [facility] at 11:30.
== END 2023-08-12 11:30 | disposition home or self-care (01) | DRG 751 ==
LOC: HO.ED 08-05 01:33 → HO.PGERI 08-06 12:14
PROVIDERS: Nurse Practitioner Family; Admitting Provider Social Worker; Emergency Provider Emergency Medicine Emergency Medical Services; Visit Provider Social Worker
DX: F33.1 Major depressive disorder, recurrent, moderate (principal); E13.9 Other specified diabetes mellitus without complications; F11.20 Opioid dependence, uncomplicated; G89.18 Other acute postprocedural pain; Z20.822 Contact with and (suspected) exposure to COVID-19; Z98.84 Bariatric surgery status; Z23 Encounter for immunization; Z98.1 Arthrodesis status; Z91.199 Patient's noncompliance with other medical treatment and regimen due to unspecified reason; Z79.84 Long term (current) use of oral hypoglycemic drugs; Z79.899 Other long term (current) drug therapy
CPT/HCPCS: 36415; 80053; 80061; 80307; 81001; 82607; 82947; 83036; 84443; 85025; 85610; 87635; 90686; 93005; 93971; 99285; J1170; S9485

== ENCOUNTER → 2023-08-04 18:03 | Outpatient (BNV) | payer OTHER, SELFPAY | PROVIDERS: Emergency Provider Emergency Medicine Emergency Medical Services; Visit Provider Psychiatry & Neurology Psychiatry | DX: F33.3 Major depressive disorder, recurrent, severe with psychotic symptoms (principal); M54.16 Radiculopathy, lumbar region | CPT/HCPCS: 99231; 99232; 99283 ==

== ENCOUNTER → 2023-08-06 07:58 | Outpatient (BNV) | payer MEDICAID, SELFPAY | PROVIDERS: Admitting Provider Social Worker; Emergency Provider Emergency Medicine Emergency Medical Services; Visit Provider Internal Medicine Cardiovascular Disease | DX: R94.31 Abnormal electrocardiogram [ECG] [EKG] (principal) | CPT/HCPCS: 93010 ==

== ENCOUNTER → 2023-08-06 12:07 | Outpatient (BNV) | payer MEDICAID, SELFPAY | PROVIDERS: Admitting Provider Social Worker; Emergency Provider Emergency Medicine Emergency Medical Services; Visit Provider Physician Assistant | DX: M54.16 Radiculopathy, lumbar region (principal) | CPT/HCPCS: 99222 ==

== ENCOUNTER 2023-08-13 09:41 | Outpatient (AMB) | payer MEDICAID, SELFPAY ==
--- NOTE | 2023-08-13 09:57 | A.SPINEOV_ITS ---
Intake Intake Visit Reasons: 1st post op Intake Note: Ms. Rivas is here today for 1sy post-op. Customer Solutions Supervisor Required: No Allergies morphine [MORPHINE] Allergy (Intermediate, Verified 07/31/23 13:36) PALPITATIONS, tachicardia quetiapine [Seroquel] Allergy (Intermediate, Verified 07/31/23 13:36) Aggitation orphenadrine [ORPHENADRINE] Adverse Reaction (Intermediate, Verified 07/31/23 13:36) RAPID HEART RATE Do you need a note to return to daycare/school/sports/work: No Assessment & Plan Assessment & Plan (1) Lumbar radiculopathy: Code(s): M54.16 - Radiculopathy, lumbar region Plan Lelo is a 63-year-old female who is s/p L4-5 transkambin lumbar interbody fu [place] on 07/22/23. To recap, she had a complicated postoperative course but has been doing much better. Last time I saw her she was in a significant amount of pain, and had not picked up any of her postoperative pain medications from her pharmacy. After our visit she went directly over to the pharmacy at [facility] and picked up her pain medications. Since then, she has been doing much better but is still experiencing quite a bit of pain. She again is accompanied by her significant other today who helps her complete her ADLs. She is walking much better and is now utilizing a cane instead of a wheelchair. Overall she looks like she is in good spirits and doing better than she was when I previously saw her. She has been to see her primary care physician who is managing her other medical comorbidities. No new neurologic deficits. The patient is able to ambulate well with the assistance of a cane. Her incision sites appear dry, clean, and well healing. I refilled Lelo's oxycodone, and also prescribed her a course of Robaxin in order to help achieve better pain control. I informed her that all she needs to do is call the office in order to obtain refills on her medications. We will see the patient again in 6 weeks for a follow-up visit with x-rays. Pj Leon MD,PhD [facility] Medications: New methocarbamol 750 mg PO TID 30 tabs 0RF moderate pain & muscle spasms methocarbamol 750 mg PO TID 30 tabs 0RF moderate pain & muscle spasms Coding Level of Care Code Global (04069) Diagnoses Lumbar radiculopathy M54.16
== END 2023-08-13 10:25 | disposition home or self-care (01) ==
PROVIDERS: PCP Internal Medicine; Visit Provider Physician Assistant
DX: M54.16 Radiculopathy, lumbar region (principal)
CPT/HCPCS: 99024

== ENCOUNTER → 2023-08-13 09:41 | Outpatient (BNVA) | payer MEDICAID, SELFPAY | PROVIDERS: PCP Internal Medicine; Visit Provider Physician Assistant | DX: Z47.89 Encounter for other orthopedic aftercare (principal); M54.16 Radiculopathy, lumbar region; Z98.890 Other specified postprocedural states | CPT/HCPCS: 99212 ==

== ENCOUNTER 2023-09-25 08:48 | Outpatient (REF) | payer MEDICAID, SELFPAY ==
--- NOTE | ~2023-09-25 | XR_ITS ---
EXAMINATION: XR LUMBOSACRAL SPINE CLINICAL INFORMATION: Radiculopathy, lumbar region COMPARISON: Lumbar spine 08/01/2023 TECHNIQUE: 4 views of the lumbar spine, inclusive of flexion and extension views, were obtained. FINDINGS: There 5 nonrib-bearing lumbar-type vertebral bodies. The height of vertebral bodies is well-maintained. Surgical hardware is present and secures L5-S1. There are bilateral transpedicular screws and metallic interbody spacer at L5-S1. Hardware is intact. Alignment is preserved. Flexion and extension views show no subluxation or instability. XR/XR lumbar spine 4V min IMPRESSION: Postsurgical appearance as described. Hardware is intact.
== END 2023-09-25 08:49 | disposition home or self-care (01) ==
LOC: HO.HOSX 08:48
PROVIDERS: Visit Provider Physician Assistant
DX: Z48.89 Encounter for other specified surgical aftercare (principal); M54.16 Radiculopathy, lumbar region; Z98.1 Arthrodesis status
CPT/HCPCS: 72110; 99212

== ENCOUNTER 2023-09-25 09:01 | Outpatient (AMB) | payer MEDICAID, SELFPAY ==
--- NOTE | 2023-09-25 09:21 | HO.SPINEOV ---
Intake Visit Reasons: 2nd post op with Xrays Intake Note: Ms. Rivas is here today for 2nd post-op appointment with x-rays. Plastic Surgery Technician Required: Yes Plastic Surgery Technician Name: Tablet Allergies morphine [MORPHINE] Allergy (Intermediate, Verified 09/25/23 09:22) PALPITATIONS, tachicardia quetiapine [Seroquel] Allergy (Intermediate, Verified 09/25/23 09:22) Aggitation orphenadrine [ORPHENADRINE] Adverse Reaction (Intermediate, Verified 09/25/23 09:22) RAPID HEART RATE Assessment & Plan Assessment & Plan (1) S/P lumbar fusion: Code(s): Z98.1 - Arthrodesis status Category: Medical Plan Procedure: L4-5 transkambin lumbar interbody fusion Lelo comes in today for her 2nd postoperative visit. She states she is finally starting to feel better since the surgery. She is able to ambulate on her own with the assistance of a cane, and is not accompanied by anyone assisting her with ambulation today. She appears well put together, and states she feels much better overall. She is able to ambulate around her home, and do stairs although does still have some difficulty. She states she is still taking the muscle relaxer and Tylenol that were prescribed to her. She asked for additional refills on this medication, and it as it is helping her with her muscle spasms and the continued mild left-sided radiculopathy which he states is still shooting down towards her left foot. Her x-ray imaging was reviewed with her which shows stable placement of surgical construct with no changes from fluoroscopy. No new neurological deficits. Patient is able to ambulate well with assistance of a cane, rises from a seated position without difficulty. I would like to send Lelo for a course of 6 weeks of physical therapy as she continues to have some difficulties with ambulation despite her gradual progress. I refilled her Tylenol and methocarbamol at her request as she is benefitting from these medications and their nonnarcotic. I would like to follow up with her again after physical therapy. Pj Leon MD,PhD [facility] Orders: Orders XR lumbar spine 4V min Today M54.16 - Radiculopathy, lumbar region PT Evaluation and Treatment Today Z98.1 - Arthrodesis status Medications: Refilled methocarbamol 750 mg PO TID 30 tabs 0RF moderate pain & muscle spasms acetaminophen 1,000 mg (2 x 500 mg) PO TID PRN 90 caps 0RF pain Coding Level of Care Code Global (61694) Diagnoses S/P lumbar fusion Z98.1
== END 2023-09-25 10:03 | disposition home or self-care (01) ==
PROVIDERS: PCP Internal Medicine; Visit Provider Physician Assistant
DX: Z98.1 Arthrodesis status (principal)
CPT/HCPCS: 99024

== ENCOUNTER 2023-11-01 18:10 | Emergency (ER) | payer MEDICAID, SELFPAY ==
[2023-11-01 18:22] VITALS: BP 173/99; PULSE 100; RESP 19; TEMP 36.6; O2SAT 98; BMI 33.3
--- NOTE | 2023-11-01 18:23 | ED_ITS ---
HPI - General Adult General Chief complaint: Extremity Injury, Lower Stated complaint: left leg swelling,numbness since surgery 08/02 Time Seen by Provider: 11/01/23 19:03 Source: patient and outpatient therapist Mode of arrival: ambulatory Limitations: language barrier History of Present Illness ED Provider: becca HPI narrative: Patient is a 63-year-old Ivorian speaking female with history of chronic pain syndrome, arthritis, HTN, HLD, DM, fibromyalgia presenting to the ED with complaint of left leg pain, swelling and tingling since lumbar fusion in July of this year. Was previously told it was a pinched nerve. PCP has been attempting to get a referral to a specialist for the past month and a half but patient does not have an appointment with specialist yet. Had lumbar x-ray on 09/24 which showed hardware intact. Denies any fall or other trauma. Denies saddle anesthesia or bowel/bladder incontinence or urinary retention. Denies fevers. Has been taking oxycodone and Tylenol at home with little relief. States she was referred for physical therapy but did not go because she was in pain. MD complaint: left leg pain Onset (ago): month(s) Location: back, left and lower extremity Radiation: distal Severity: severe Quality: burning Pain Consistency: constant Relieving factors: none Associated symptoms: other (numbness/tingling) Treatments prior to arrival: other Related Data Previous Rx's ?Medication ?Instructions ?Recorded clonazepam 1 mg tablet 1 mg PO BID 30 days #60 tabs 12/16/22 albuterol sulfate 90 mcg/actuation 1 inh inhalation QID PRN shortness 08/12/23 aerosol inhaler of breath or wheezing #6.7 grams gabapentin 300 mg capsule 300 mg PO DAILY #30 caps 08/12/23 gabapentin 600 mg tablet 600 mg PO BEDTIME #30 tabs 08/12/23 hydrochlorothiazide 50 mg tablet 50 mg PO DAILY #30 tabs 08/12/23 metformin 500 mg tablet,extended 500 mg PO BIDWM #60 tabs 08/12/23 release 24 hr polyethylene glycol 3350 17 gram 17 g PO DAILY #30 ea 08/12/23 oral powder packet sennosides 8.6 mg-docusate sodium 2 tab PO BID #120 tabs 08/12/23 50 mg tablet (Senna Plus) trazodone 150 mg tablet 150 mg PO BEDTIME #30 tabs 08/12/23 venlafaxine 225 mg tablet,extended 225 mg PO DAILY #30 tabs 08/12/23 release 24 hr lidocaine 5 % topical patch 1 patch topical DAILY #30 ea 09/02/23 acetaminophen 500 mg capsule 1,000 mg (2 x 500 mg) PO TID PRN 09/25/23 pain #90 caps methocarbamol 750 mg tablet 750 mg PO TID moderate pain & 09/25/23 muscle spasms #30 tabs prednisone 20 mg tablet 40 mg (2 x 20 mg) PO DAILY #10 tabs 11/01/23 Allergies Allergy/AdvReac Type Severity Reaction Status Date / Time morphine [MORPHINE] Allergy Intermediate PALPITATIONS, Verified 11/01/23 18:25 tachicardia quetiapine [Seroquel] Allergy Intermediate Aggitation Verified 11/01/23 18:25 orphenadrine [ORPHENADRINE] AdvReac Intermediate RAPID Verified 11/01/23 18:25 HEART RATE Review of Systems Review of Systems: As per HPI. Yes all other systems are reviewed and are negative Constitutional: Constitutional: Reports as per HPI PMFSH Past Medical History Medical History Weakness Arthritis History of brain inflammation Protrusion of lumbar intervertebral disc Tinnitus Venous insufficiency Osteoarthritis Loss of hair History of headache Fibromyositis Fatigue Hyperlipidemia HTN (hypertension) Continuous opioid dependence Sinusitis Anemia Anxiety Diverticulosis Chronic idiopathic constipation Migraine Asthma Depression Diabetes 1.5, managed as type 2 Fibromyalgia Surgical History S/P panniculectomy Hx of hysterectomy Hx of oophorectomy Hx of bilateral breast reduction surgery H/O colonoscopy History of pubovaginal sling Gastric bypass status for obesity Family History Family History Mother Colon cancer Social History Social History Household Members: Spouse and Children Household Members Other:: lives alone Housing: House Are you a primary rn home care to a significant other at home: No Do you presently have visiting nurse or other home services: Yes ([employer]) Alcohol intake: never Comment: IV infiltrated Patient Tobacco Use Status: Never used Tobacco Smoked in Last 30 Days: No Second Hand Smoke Exposure: No Use of substances other than those prescribed or required for medical reasons: No Advance Directives: No Advance Directives Information Provided: No Do you have a plan to hurt others: No Plan Patient : No service: No Current occupational status: disabled Sexual orientation: Straight/Heterosexual Gender identity: Female Physical Exam ED Vital Signs: Vital Signs - 24 hr 11/01/23 18:22 11/01/23 20:20 Temperature 98 F 98.1 F Pulse Rate 100 80 Respiratory Rate 19 18 Blood Pressure 173/99 H 139/80 Pulse Oximetry 98 97 Oxygen Delivery Method Room Air Room Air BMI result Body Mass Index 33.3 Vital signs have been reviewed and appear to be correct. Blood pressure elevat ed. Heart rate normal. Respiratory rate normal. Temperature normal. Oxygen saturation normal. Const General: cooperative, healthy appearing and no acute distress Orientation/consciousness: oriented to person, oriented to place, oriented to time and patient oriented x3 Limitations: no limitations HENMT Head: Yes normocephalic and Yes atraumatic Ears: external ears normal General nose exam: Normal external nose present Face and sinus: Yes face symmetric Mouth: oropharynx normal and moist mucous membranes Throat: Yes uvula midline Eyes Pupils: Equal, round and reactive pupils present Neck Neck: Yes normal visual inspection, Yes no meningeal signs and Yes supple Resp Effort & Inspection: normal respiratory effort and able to speak in complete sentences Auscultation: clear to auscultation bilaterally Cardio Rate: regular rate Rhythm: regular rhythm Heart sounds: S1 normal heart sound present and S2 normal heart sound present GI Palpation (GI): Soft to palpation and nontender Auscultation: normoactive bowel sounds General: Yes no CVA tenderness Back/Spine/Pelvis Back: no CVA tenderness Thoracic/Lumbar Spine: Thoracic/lumbar spine scar(s), thoraco-lumbar ROM normal, straight leg raise negative bilaterally, No thoracic spinal tenderness and No lumbar spinal tenderness Skin General skin exam: elasticity normal and turgor normal Neuro General: oriented to person, oriented to place, oriented to time, patient oriented x3, gait normal, tone normal, moves all extremities, Normal light touch and pain sensation, no meningeal signs, no focal motor deficits, CN's II-XI intact bilaterally and deep tendon reflexes 2+ bilaterally Cranial nerves: Yes Equal, round and reactive pupils present Cognition (Neuro): normal cognition Motor exam (neuro): 5/5 motor strength present throughout, no tremor noted, Normal motor muscle tone present throughout and Motor abnormalities not present Sensory Exam: Normal double simultaneous stimulation for sensation Extrem General: Yes full ROM, Yes no pedal edema and Yes no calf tenderness Psych Mental Status: mental status grossly normal Affect: normal affect Thought process: Normal thought process present Medications Administered Discontinued Medications Generic Name Dose Route Start Last Admin Trade Name Bola PRN Reason Stop Dose Admin Ketorolac Tromethamine 30 mg 11/01/23 20:01 11/01/23 20:32 Ketorolac Tromethamine 30 Mg/Ml Vial IM 11/01/23 20:02 30 mg ONCE ONE Administration Prednisone 50 mg 11/01/23 20:01 11/01/23 20:33 Prednisone 10 Mg Tablet PO 11/01/23 20:02 50 mg ONCE ONE Administration Medical Decision Making Medical Decision Making [facility] Narrative: Patient is a 63-year-old Ivorian speaking female with history of chronic pain syndrome, arthritis, HTN, HLD, DM, fibromyalgia presenting to the ED with complaint of left leg pain, swelling and tingling since lumbar fusion in July of this year. On exam patient is awake, A+Ox3, BP elevated, VS otherwise WNL, afebrile, normal neurological exam without focal deficits, physical exam findings as above. Given reported symptoms and physical exam findings, initial differential includes lumbar radiculopathy, chronic back pain. No red flag findings concerning for SEA, cauda equina, cord compression. X-ray of lumbar spine from 09/24 notable for postsurgical changes, hardware intact. Discussed with patient that her PCP ordered outpatient PT to improve her pain and functioning, so she should attempt to schedule an appointment there. Offered PT eval and case management involvement here but patient states she would not be willing to go to short term rehab. Given that symptoms have been ongoing since her surgery and she does not have any new symptoms, do not feel additional imaging is indicated at this time. Discussed with patient that we can try a short course of steroids to decrease inflammation but that she will need to monitor her blood glucose levels closely as this can elevate her levels. Ronnie ibrahim is agreeable to this. Will medicate with Toradol and prednisone in the ED. Will discharge home on short course of prednisone and instructed patient to follow-up with her primary care provider and schedule her physical therapy treatment as ordered by her PCP. Return precautions discussed at bedside. Patient verbalized understanding of and agreement with plan. Differential Diagnosis Differential Diagnoses: The differential diagnosis associated with the presentation includes As per MDM. External Record Review External record reviewed: Inpatient record, Office record and Outpatient record Prescription Management I considered prescription management with: Other Discharge Plan Discharge Clinical Impression: Chronic pain Patient Disposition: Home, Self-Care Instructions: Pain Management (ED), Chronic Pain (ED), Lumbar Radiculopathy (ED) Additional Instructions: You were evaluated in the emergency department for lower back and leg pain which has been ongoing since your surgery in July. You are being treated with a short course of steroids to decrease inflammation. This medication can increase your blood sugar level, you should monitor this closely. We recommend that you schedule your physical therapy as ordered by your primary care provider. Follow up with your primary care provider this week. Return to the emergency department if you develop worsening pain, fever, if you accidentally go to the bathroom on yourself, or if you have numbness/tingling to your groin. Prescriptions: New prednisone 20 mg tablet 40 mg PO DAILY Qty: 10 0RF No Action lidocaine 5 % adhesive patch,medicated 1 patch topical DAILY Qty: 30 0RF Rx Instructions: leave on most painful area for up to 12 hrs, do not put directly over incisions clonazepam 1 mg tablet 1 mg PO BID 30 Days Qty: 60 0RF albuterol sulfate 90 mcg/actuation HFA aerosol inhaler 1 inh inhalation QID PRN (Reason: shortness of breath or wheezing) Qty: 6.7 0RF trazodone 150 mg tablet 150 mg PO BEDTIME Qty: 30 0RF venlafaxine 225 mg tablet extended release 24hr 225 mg PO DAILY Qty: 30 0RF gabapentin 600 mg tablet 600 mg PO BEDTIME Qty: 30 0RF gabapentin 300 mg Capsule 300 mg PO DAILY Qty: 30 0RF hydrochlorothiazide 50 mg tablet 50 mg PO DAILY Qty: 30 0RF polyethylene glycol 3350 17 gram powder in packet 17 g PO DAILY Qty: 30 0RF sennosides-docusate sodium [Senna Plus] 8.6-50 mg Tablet 2 tab PO BID Qty: 120 0RF metformin 500 mg Tablet Extended Release 24 Hr 500 mg PO BIDWM Qty: 60 0RF methocarbamol 750 mg tablet 750 mg PO TID Qty: 30 0RF acetaminophen 500 mg capsule 1,000 mg PO TID PRN (Reason: pain) Qty: 90 0RF Print Language: Ivorian
[2023-11-01 20:20] VITALS: BP 139/80; PULSE 80; RESP 18; TEMP 36.7; O2SAT 97
[2023-11-01] MEDS: Ketorolac Tromethamine 30 MG/ML VIAL IM (20:32)
[2023-11-01] MEDS: predniSONE 10 MG TABLET 50 MG PO (20:33)
[2023-11-01 21:00] VITALS: BP 139/80; PULSE 80; RESP 18; TEMP 36.7; O2SAT 97
== END 2023-11-01 21:01 | disposition home or self-care (01) ==
PROVIDERS: Emergency Provider Student in an Organized Health Care Education/Training Program
DX: G89.29 Other chronic pain (principal); M54.16 Radiculopathy, lumbar region; M79.605 Pain in left leg; E11.9 Type 2 diabetes mellitus without complications; E78.5 Hyperlipidemia, unspecified; Z79.84 Long term (current) use of oral hypoglycemic drugs
CPT/HCPCS: 96372; 99284; J1885

== ENCOUNTER 2023-11-12 17:35 | Emergency (ER) | payer MEDICAID, SELFPAY ==
--- NOTE | ~2023-11-12 | US_ITS ---
EXAMINATION: US VENOUS ULTRASOUND WITH DOPPLER LOWER EXTREMITY, LEFT CLINICAL INFORMATION: Leg pain. COMPARISON: Venous duplex Doppler left lower extremity August 04, 2023 TECHNIQUE: Ultrasound of the deep veins is performed from the hip to the calf with compression sonography and color and pulse Doppler assessment. Spectral analysis with color-flow imaging is performed. FINDINGS: There is normal venous compression and respiratory variation and augmented flow. The visualized common femoral vein, superficial femoral vein, profunda femoral vein, popliteal vein, and the trifurcation region shows no evidence of deep venous thrombosis. There is no significant popliteal fossa cyst. If the patient's symptoms persist, followup ultrasound in 5 days 7 days might be of value to exclude proximal propagation from a non-visualized calf vein. US/US venous duplex LE IMPRESSION: No DVT demonstrated in the left lower extremity.
--- NOTE | ~2023-11-12 | US_ITS ---
EXAMINATION: NONINVASIVE ASSESSMENT OF THE ARTERIES OF THE LEFT LOWER EXTREMITY Neftali Moncada MD CLINICAL INFORMATION: Left lower extremity numbness, pain and discoloration TECHNIQUE: Left lower extremity duplex ultrasound was performed with velocity measurements and waveform analysis in the common femoral arteries, profunda femoris arteries, proximal mid and distal superficial femoral arteries, popliteal arteries and tibial vessels. This study was performed only at rest. COMPARISON: None FINDINGS: Velocities in cm/sec and phasicity as well as the presence of plaque are reported below. LEFT LEG: Minimal plaque is seen. Triphasic flow is noted throughout with the exception of the profunda femoris where flow was biphasic. No stenoses are seen. Common Femoral: 100 Profunda Femoris: 67 Proximal SFA: 140 Mid SFA: 1:15 Distal SFA: 87 Popliteal: 75 Standard tibial: 76 Anterior tibial: 62 Dorsalis pedis: 37 Peroneal: 22 US/US arterial duplex LE LT IMPRESSION: No evidence of hemodynamically significant lower extremity arterial disease by waveform or duplex Doppler criteria at rest.
[2023-11-12 17:43] VITALS: BP 126/80; BP 144/87; PULSE 93; PULSE 94; RESP 16; TEMP 36.7; O2SAT 96; BMI 33.3
--- NOTE | 2023-11-12 17:47 | ED_ITS ---
HPI - General Adult General Chief complaint: Extremity Problem Stated complaint: left leg pain x3 months following back surgery Time Seen by Provider: 11/12/23 21:16 Source: patient, RN notes reviewed and animal nurse Mode of arrival: ambulatory Limitations: language barrier History of Present Illness ED Provider: Sailaja Cameron PA-C HPI narrative: This is a 63-year-old Emirati-speaking female, with a history of chronic pain syndrome, arthritis, HTN, HLD, DM, fibromyalgia, who presents emergency department with complaints of chronic left leg pain x3 months. She has had no recent trauma or injury. She states that she is currently being managed by the transportation maintenance specialist, seen several weeks ago and was referred to physical therapy. She states that she has had ongoing left leg pain without any relief despite using prescribed muscle relaxants, and Tylenol. She denies any recent trauma or injury to her back or leg. She denies any urinary or bowel incontinence or retention. No saddle anesthesia. Denies any fevers, chills, chest pain, shortness of breath, abdominal pain, nausea, vomiting or diarrhea. No urinary symptoms. No other complaints or concerns at this time. MD complaint: Left leg pain Onset (ago): year(s) Relieving factors: none Exacerbating factors: none Associated symptoms: denies other symptoms Treatments prior to arrival: none Related Data Previous Rx's ?Medication ?Instructions ?Recorded clonazepam 1 mg tablet 1 mg PO BID 30 days #60 tabs 12/16/22 albuterol sulfate 90 mcg/actuation 1 inh inhalation QID PRN shortness 08/12/23 aerosol inhaler of breath or wheezing #6.7 grams gabapentin 300 mg capsule 300 mg PO DAILY #30 caps 08/12/23 gabapentin 600 mg tablet 600 mg PO BEDTIME #30 tabs 08/12/23 hydrochlorothiazide 50 mg tablet 50 mg PO DAILY #30 tabs 08/12/23 metformin 500 mg tablet,extended 500 mg PO BIDWM #60 tabs 08/12/23 release 24 hr polyethylene glycol 3350 17 gram 17 g PO DAILY #30 ea 08/12/23 oral powder packet sennosides 8.6 mg-docusate sodium 2 tab PO BID #120 tabs 08/12/23 50 mg tablet (Senna Plus) trazodone 150 mg tablet 150 mg PO BEDTIME #30 tabs 08/12/23 venlafaxine 225 mg tablet,extended 225 mg PO DAILY #30 tabs 08/12/23 release 24 hr lidocaine 5 % topical patch 1 patch topical DAILY #30 ea 09/02/23 acetaminophen 500 mg capsule 1,000 mg (2 x 500 mg) PO TID PRN 09/25/23 pain #90 caps methocarbamol 750 mg tablet 750 mg PO TID moderate pain & 09/25/23 muscle spasms #30 tabs prednisone 20 mg tablet 40 mg (2 x 20 mg) PO DAILY #10 tabs 11/01/23 lidocaine 5 % topical patch 1 patch topical DAILY #30 ea 11/13/23 oxycodone 5 mg tablet 5 mg PO Q6H PRN pain #7 tabs 11/13/23 Allergies Allergy/AdvReac Type Severity Reaction Status Date / Time morphine [MORPHINE] Allergy Intermediate PALPITATIONS, Verified 11/12/23 17:47 tachicardia quetiapine [Seroquel] Allergy Intermediate Aggitation Verified 11/12/23 17:47 orphenadrine [ORPHENADRINE] AdvReac Intermediate RAPID Verified 11/12/23 17:47 HEART RATE Review of Systems Review of Systems: Yes all other systems are reviewed and are negative Constitutional: Constitutional: Reports as per HPI [facility] Past Medical History Medical History Weakness Arthritis History of brain inflammation Protrusion of lumbar intervertebral disc Tinnitus Venous insufficiency Osteoarthritis Loss of hair History of headache Fibromyositis Fatigue Hyperlipidemia HTN (hypertension) Continuous opioid dependence Sinusitis Anemia Anxiety Diverticulosis Chronic idiopathic constipation Migraine Asthma Depression Diabetes 1.5, managed as type 2 Fibromyalgia Surgical History S/P panniculectomy Hx of hysterectomy Hx of oophorectomy Hx of bilateral breast reduction surgery H/O colonoscopy History of pubovaginal sling Gastric bypass status for obesity Family History Family History Mother Colon cancer Social History Social History Household Members: Spouse and Children Household Members Other:: lives alone Housing: House Are you a primary child care centre manager to a significant other at home: No Do you presently have visiting nurse or other home services: Yes (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) Alcohol intake: never Comment: IV infiltrated Patient Tobacco Use Status: Never used Tobacco Second Hand Smoke Exposure: No Advance Directives: No Advance Directives Information Provided: No service: No Current occupational status: disabled Sexual orientation: Straight/Heterosexual Gender identity: Female Physical Exam ED Vital Signs: Vital Signs - 24 hr 11/12/23 17:43 11/12/23 20:53 11/13/23 00:00 Temperature 98.1 F 98.1 F 97.9 F Pulse Rate 93 78 74 Respiratory Rate 16 18 18 Blood Pressure 144/87 H 124/76 135/75 Pulse Oximetry 96 97 95 Oxygen Delivery Method Room Air Room Air Room Air 11/13/23 01:31 Temperature 97.9 F Pulse Rate 74 Respiratory Rate 18 Blood Pressure 135/75 Pulse Oximetry 95 Oxygen Delivery Method BMI result Body Mass Index 33.3 Const General: cooperative, comfortable and no acute distress Orientation/consciousness: patient oriented x3 Limitations: no limitations HENMT Head: Yes normal to inspection, Yes normocephalic and Yes atraumatic Ears: hearing grossly normal bilaterally General nose exam: Normal external nose present Face and sinus: Yes normal facial exam Mouth: Normal oral and palatal mucosa present, oropharynx normal and moist mucous membranes Throat: Yes posterior oropharynx normal Eyes General: appearance normal, both eyes and all related structures Eyelids: Yes eyelids normal Conjunctivae: conjunctivae normal Sclerae: sclerae normal Pupils: Equal, round and reactive pupils present EOM: EOMs intact bilaterally Neck Neck: Yes normal visual inspection, Yes full ROM and Yes no lymphadenopathy Lymphatic: no lymphadenopathy noted Chest Chest palpation & inspection: normal inspection of the chest Resp Effort & Inspection: normal respiratory effort and able to speak in complete sentences Auscultation: clear to auscultation bilaterally, no crackles, no rales, no rhonchi and no wheezes Cardio Rate: regular rate Rhythm: regular rhythm Heart sounds: S1 normal heart sound present and S2 normal heart sound present GI Inspection: Yes normal to inspection Back/Spine/Pelvis Other: No midline spine tenderness, no overlying skin changes or warmth. Left SI joint, nontender. She does have tenderness palpation along the left anterior thigh, no obvious swelling, hematoma or edema noted. Strong DP pulse. Skin General skin exam: no rashes or lesions noted Trauma: no lacerations or abrasions Wounds: no wounds Neuro General: patient oriented x3 and moves all extremities Cranial nerves: Yes Equal, round and reactive pupils present Extrem Other: Mild left calf tenderness palpation. No overlying skin changes. Strong DP pulse. General: Yes normal to inspection Right upper extremity: normal to inspection Left upper extremity: normal to inspection Right lower extremity: normal to inspection Left lower extremity: normal to inspection Course Course Course Narrative: This is an RME done by CAMELIA Damon: Additional HPI, ROS, PE not included below will be deferred to primary provider. 63 yo f presents w/ LLE pain, numbness, swelling X 3 months s/p surgery of spine. Appearance: Alert.? Oriented X3.? No acute cardiopulmonary distress distress.? Head: Normocephalic, atraumatic, no step-offs or deformities CVS: Pulses normal.? Respiratory: No respiratory distress.? Abdomen: Soft and nontender.? Skin: ? Normal skin color. Extremities: 5/5 strength to bilateral upper and lower extremities 1+ non pitting edema to LLE no edema to RLE Back: No midline tenderness, no C-spine tenderness, full range of motion, No CVA tenderness bilaterally Neuro: Oriented X 3.? No motor deficit.? No sensory deficit. Medications Administered Discontinued Medications Generic Name Dose Route Start Last Admin Trade Name Freq PRN Reason Stop Dose Admin Lidocaine 1 patch 11/13/23 01:00 11/13/23 01:29 Lidocaine 4 % Patch Adh..Patch TRANSDERMA 11/13/23 01:01 1 patch ONCE ONE Administration Protocol Oxycodone HCl 5 mg 11/12/23 22:33 11/12/23 22:37 Oxycodone Hcl Immed Release 5 Mg Tablet PO 11/12/23 22:34 5 mg ONCE ONE Administration Medical Decision Making Medical Decision Making [facility] Narrative: This is a 63-year-old Emirati-speaking female, with a history of chronic pain syndrome, arthritis, HTN, HLD, DM, fibromyalgia, who presents emergency department with complaints of chronic left leg pain x3 months. On arrival, clair ent nontoxic appearing, vital signs within normal limits. She appears to be under no acute distress. She has mild tenderness palpation along the left anterior thigh. This is similar presentation to what she has had in the past. Patient has been seen numerous x4 back pain, and leg pain. She has also been followed by the transportation maintenance specialist, last seen on September 25, 2023 and was referred to physical therapy, discharged on muscle relaxants and Tylenol. She has been using these modalities of pain control however this has not been managing her pain. She states that the pain has only worsened. She was seen several weeks ago in the emergency department and was treated with a course of prednisone. She states that this provided her good relief however given that she has a history of diabetes, as well as recent steroid use, I am deferring to another repeat steroid pack as this is ill advised. She has no red flag back symptoms on examination. Ultrasound of the left lower extremity arterial and venous duplex was obtained, ordered out in triage, these were unremarkable. Discussed this with patient. Given strict return precautions. She was medicated with oxycodone 5 mg by mouth, which provided her with good relief. She is comfortable for discharge home she is ambulatory in the emergency department with steady gait. At this time I feel it is appropriate for discharge home with close follow-up with the transportation maintenance specialist. She is agreeable. Discharged with only short prescription of oxycodone, also Lidoderm patches. Capillary return precautions. Patient stable for discharge. Differential Diagnosis Differential Diagnoses: The differential diagnosis associated with the presentation includes Chronic pain, sciatica, lumbar radiculopathy, degenerative disc disease, DVT Admission/Observation Consideration of admission/observation: Escalation of care including admission/observation considered Lab Data MDM Lab Attestation statement: I reviewed the patient's lab results. Labs: Lab Results 11/12/23 Range/Units 20:15 POC Glucose 88 (60-115) mg/dL Radiology Impression Discussion of test interpretation with radiology: I have reviewed the radiologist's reading. Radiologist Impression: US/US venous duplex LE LT IMPRESSION: No DVT demonstrated in the left lower extremity. Dictated By: Rick Denny MD US/US arterial duplex LE LT IMPRESSION: No evidence of hemodynamically significant lower extremity arterial disease by waveform or duplex Doppler criteria at rest. Dictated By: Neftali Moncada MD Discharge Plan Discharge Clinical Impression: Chronic back pain Patient Disposition: Home, Self-Care Instructions: Chronic Pain (ED), Narcotic Safety (ED), Chronic Back Pain (DC) Additional Instructions: You were seen in the emergency department due to chronic back pain. You need to follow-up with your transportation maintenance specialist for better management of your pain. Call on Friday to make an appointment. I can only prescribed you several tablets stronger pain medication to better manage her pain. Continue using your muscle relaxants and Tylenol as prescribed. Oxycodone only for severe pain only. Your ultrasound did not show any abnormalities. If any new or worsening symptoms occur including but not limited to worsening pain, shortness breath, chest pain, please return for re-evaluation. Prescriptions: New lidocaine 5 % adhesive patch,medicated 1 patch topical DAILY Qty: 30 0RF Rx Instructions: leave on most painful area for up to 12 hrs oxycodone 5 mg tablet 5 mg PO Q6H PRN (Reason: pain) Qty: 7 0RF Rx Instructions: Partial Fill upon patient request. No Action lidocaine 5 % adhesive patch,medicated 1 patch topical DAILY Qty: 30 0RF Rx Instructions: leave on most painful area for up to 12 hrs, do not put directly over incisions clonazepam 1 mg tablet 1 mg PO BID 30 Days Qty: 60 0RF albuterol sulfate 90 mcg/actuation HFA aerosol inhaler 1 inh inhalation QID PRN (Reason: shortness of breath or wheezing) Qty: 6.7 0RF trazodone 150 mg tablet 150 mg PO BEDTIME Qty: 30 0RF venlafaxine 225 mg tablet extended release 24hr 225 mg PO DAILY Qty: 30 0RF gabapentin 600 mg tablet 600 mg PO BEDTIME Qty: 30 0RF gabapentin 300 mg Capsule 300 mg PO DAILY Qty: 30 0RF hydrochlorothiazide 50 mg tablet 50 mg PO DAILY Qty: 30 0RF polyethylene glycol 3350 17 gram powder in packet 17 g PO DAILY Qty: 30 0RF sennosides-docusate sodium [Senna Plus] 8.6-50 mg Tablet 2 tab PO BID Qty: 120 0RF metformin 500 mg Tablet Extended Release 24 Hr 500 mg PO BIDWM Qty: 60 0RF prednisone 20 mg tablet 40 mg PO DAILY Qty: 10 0RF methocarbamol 750 mg tablet 750 mg PO TID Qty: 30 0RF acetaminophen 500 mg capsule 1,000 mg PO TID PRN (Reason: pain) Qty: 90 0RF Interventions: ED Discharge Assessment Last Done: 11/13/23 01:31 Discharge Date/Time: 11/13/23 01:36 Print Language: Emirati
[2023-11-12 20:19] LABS: Glucose, Whole Blood 88 mg/dL (60-115)
[2023-11-12 20:53] VITALS: BP 124/76; PULSE 78; RESP 18; TEMP 36.7; O2SAT 97
[2023-11-12] MEDS: oxyCODONE HCl Immed Release 5 MG TABLET PO (22:37)
[2023-11-13] VITALS: BP 135/75; PULSE 74; RESP 18; TEMP 36.6; O2SAT 95
[2023-11-13] MEDS: Lidocaine 4 % Patch ADH..PATCH 1 PATCH TRANSDERMA (01:29)
[2023-11-13 01:31] VITALS: BP 135/75; PULSE 74; RESP 18; TEMP 36.6; O2SAT 95
== END 2023-11-13 01:36 | disposition home or self-care (01) ==
PROVIDERS: Emergency Provider Emergency Medicine; PCP Internal Medicine
DX: M79.606 Pain in leg, unspecified (principal); G89.4 Chronic pain syndrome; M54.9 Dorsalgia, unspecified; I10 Essential (primary) hypertension; E13.9 Other specified diabetes mellitus without complications; J45.909 Unspecified asthma, uncomplicated; Z79.899 Other long term (current) drug therapy
CPT/HCPCS: 82947; 93926; 93971; 99283; 99284

== ENCOUNTER 2023-12-22 13:00 | Outpatient (RCR) | payer MEDICAID, SELFPAY ==
--- NOTE | 2023-11-20 13:01 | MHC.PT.EP ---
[facility] [place] Office [place] Office [place] [facility] [address] [place] [address] [phone] F: [phone] F: [phone] F: [phone] F: [phone] Physical Therapy Plan of Care Date of Evaluation: 11/19/23 Date of Surgery: 07/22/23 Diagnosis: Arthrodesis status s/p L5-S1 lumbar fusion on 07/22/23 Assessment: Pt is a pleasant 63yo F who is s/p L5-S1 fusion with Dr. Leon on 07/22/23. Pt presents to PT with current impairments in pain, decreased ROM, posterior chain tightness, decreased LE strength L>R, decreased balance/proprioception, and impaired gait. She is limited functionally by prolonged standing, walking, sleeping (unable to lay on left side), and stair navigation. She is an excellent candidate for skilled PT in order to address current impairments to facilitate return to PLOF. She is recommended to be seen 2x/week for 5 weeks and will be reassessed at that time Frequency and Duration: The patient will be seen 2x/week for 5 weeks Short Term Goals: Pt will be I with HEP to promote self management of symptoms Pt will improve L quad strength to at least 4/5 Nursing Home Goals: Pt will ambulate > 200' independently without AD on multidirectional path with safe, steady gait Pt will ascend/descend 1 flight of stairs independently with reciprocal pattern safely Treatment Plan: Modalities to reduce pain, spasms and effusion. Manual therapy to restore motion and function. Therapeutic exercise to improve strength and flexibility. Neuromuscular re-education for posture and balance. Therapeutic activities to return to functional activities of daily living. Electronically signed by: Geovanna Rueda, PT, DPT Please sign and return to therapist. Thank you for your referral.
--- NOTE | 2024-03-01 09:32 | MHC.PT.DC ---
[facility] [place] Office [place] Office [place] Office [address] Jerson [place] [address] [phone] F: [phone] F: [phone] F: [phone] F: [phone] Physical Therapy Discharge Report Diagnosis: Arthrodesis status s/p L5-S1 lumbar fusion on 07/22/23 Date of Surgery: 07/22/23 Date of Evaluation: 11/19/23 Date of Discharge: 03/01/24 Treatments to Date: 5 Cancellations to Date: 4 No Shows to Date: 3 Discharge Status: Visit Non-compliance Discharge Summary: Pt was seen for PT from 11/19/23-12/22/23. Her last attended appointment was 12/22/23. She had multiple cancellations and 3 no-show appointments since SOC. She is being D/C from skilled PT per [facility] attendance policy and visit non-compliance. Pt current level of function unknown at this time Electronically signed by: Geovanna Rueda, PT, DPT Please sign and return to therapist. Thank you for your referral.
== END 2024-03-01 09:32 | disposition home or self-care (01) ==
LOC: HO.PT 13:00
PROVIDERS: PCP Internal Medicine; Visit Provider Physician Assistant
DX: Z98.1 Arthrodesis status (principal)
CPT/HCPCS: 97110; 97162; 97530

== ENCOUNTER 2023-12-25 15:10 | Outpatient (REF) | payer MEDICAID, SELFPAY | END 2023-12-25 15:11 | disposition home or self-care (01) | LOC: HO.MAMMO 15:10 | PROVIDERS: PCP Internal Medicine; Visit Provider Internal Medicine | DX: Z13.89 Encounter for screening for other disorder (principal) ==

== ENCOUNTER 2024-01-05 08:13 | Outpatient (REF) | payer MEDICAID, SELFPAY ==
[2024-01-05 11:56] LABS: MANUAL DIFF FLAG NO
[2024-01-05 12:07] LABS: Basophils Percent Auto 0.1 % (0-2); Eosinophils Absolute Auto 0.2 X10*3/uL (0.0-0.4); Eosinophils Percent Auto 2.3 % (0-4); Hematocrit 34.1 % (37.0-47.0); Hemoglobin 10.4 g/dl (12.0-16.0); Imm Gran Abs Auto 0.06 X10*3/uL (0.00-0.03); Imm Gran Pct Auto 0.8 % (0.0-0.4); Lymphocytes Percent Auto 28.6 % (20-40); Mean Corpuscular HGB Conc 30.5 g/dl (31.0-35.0); Mean Corpuscular Hemoglobin 24.6 pg (27.0-33.0); Mean Corpuscular Volume 80.6 fL (80.0-98.0); Mean Platelet Volume 10.8 fL (9.4-12.3); Monocytes Absolute Auto 0.4 X10*3/uL (0.1-1.2); Monocytes Percent Auto 5.9 % (2-11); Neutrophils Absolute Auto 4.4 x10*3/uL (2.0-8.3); Neutrophils Percent Auto 62.3 % (45-73); Platelet Count 239 X10*3/uL (160-400); Red Blood Count 4.23 X10*6/uL (4.20-5.50); Red Cell Distribution Width 17.5 % (11.0-16.0); White Blood Count 7.1 X10*3/uL (4.8-10.8)
[2024-01-05 12:42] LABS: Creatinine Urine 223.33 mg/dL
[2024-01-05 12:43] LABS: Alanine Aminotransferase 17 U/L (0-31); Albumin Level 3.9 g/dL (3.5-5.0); Alkaline Phosphatase 77 U/L (39-117); Anion Gap 17 (12-20); Aspartate Amino Transferase 21 U/L (5-31); Bilirubin Total 0.2 mg/dL (0.0-1.0); Blood Urea Nitrogen 17 mg/dL (9-16); Calcium 8.8 mg/dL (8.4-10.2); Carbon Dioxide 24 mmol/L (22-29); Chloride 102 mmol/L (96-108); Cholesterol 240 mg/dL (<200); Estimated Glomerular Filt Rate 55; Glucose Random 223 mg/dL (60-115); HDL Cholesterol 66 mg/dL (>40); LDL Cholesterol Calculated 138 mg/dL (<100); Potassium 3.5 mmol/L (3.3-5.1); Sodium 139 mmol/L (135-145); TSH reflex Free T4 5.05 uIU/mL (0.32-4.0); Total Protein 7.3 g/dL (6.5-8.0); Triglycerides 180 mg/dL (<150)
[2024-01-05 13:52] LABS: Reflex LDLD? No
[2024-01-05 14:28] LABS: Free T4 (Free Thyroxine) 0.77 ng/dL (0.71-1.85)
== END 2024-01-05 08:14 | disposition home or self-care (01) ==
LOC: HO.HHCL 08:13
PROVIDERS: Visit Provider Internal Medicine
DX: Z01.818 Encounter for other preprocedural examination (principal); E11.9 Type 2 diabetes mellitus without complications
CPT/HCPCS: 36415; 80053; 80061; 82043; 82570; 84439; 84443; 85025

== ENCOUNTER 2024-01-23 14:09 | Outpatient (AMB) | payer MEDICAID, SELFPAY ==
--- NOTE | 2024-01-23 14:12 | A.OFFVIS_ITS ---
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 She was last seen in our office in 2022 and underwent L4-5 transkambin lumbar interbody f usion on 07/22/[address] Leon. Patient was seen by Neurosurgeon in September and was referred for physical therapy. Patient reports she had to stopped PT on 12/22/23 due to increased pain. She reports low back pain radiating to her left buttock and into left lower extremity. Patient reports left toes numbness since surgery with associated swelling. She has not followed up with Dr. Leon since September. Reports increased low back pain and left knee pain with walking, climbing stairs, bending or changing positions. She has been managing symptoms with Tylenol, lidocaine patches, methocarbamol and gabapentin with continued symptoms. Denies any fever or chills, weight loss, weakness, bladder or bowel dysfunction or saddle anesthesia. PRIOR 02/27/23: Patient presents today to assess response to Bilateral L5-S1 TFESI on 01/28/[address] Valentine. Patient reports 0% pain relief since injections without any improvement in her functioning, mobility or better sleep. She reports worsening low back pain with radiation to both of her legs (worse on the right) with weakness, numbness and tingling. Pain spreads across her lumbar and sacral regions. Bending, lifting and walking aggravates her pain. She continues to take gabapentin, lidocaine patches, Tylenol, and ice/heat therapy with minimal benefit. Resting and repositioning also temporarily alleviate her symptoms. Patient reports it has been painful to look after herself. Pain prevents her from doing lifting, vacuuming, standing to cook meals or wash dishes or other usual homeking chores. She is interested to proceed with Neurosurgical evaluation. We will update her lumbar spine MRIs. Patient is not interested to proceed with lumbar medial branch blocks at this time due to significant pain. Denies any fever, weight loss, abdominal or groin pain, bladder or bowel dysfunction or saddle anesthesia. Past Procedures: 01/28/23: Bilateral L5-S1 TFESI-0% pain relief PRIOR: Patient is a pleasant 62 years old female with prior history of fibromyalgia, lumbar degenerative disc disease, history of ACDF at C6-C7, chronic pain syndrome, osteoarthritis, depression, anxiety, migraine, presents today with widespread body pain, lower back, bilateral legs and hands pain. Her main concern is low back pain with radiation to both legs and feet posteriorly with numbness and tingling but no weakness. Denies any recent trauma, injury or falls. She has been followed by [facility] in the past for injections. Pain affects her daily activities, functioning, mobility, sleep, mood and quality of life. Pain is worse in the morning with intensity rated at 8-10/10 and average pain in the past 2 weeks rated at 8/10. Her diabetes is well managed with most recent A1C 5.7. She lives alone. Denies any fever, weight loss, abdominal or groin pain, foot drop, bladder or bowel incontinence or saddle anesthesia. Location Lower back that radiates down bilateral legs Duration Chronic pain syndrome, multiple pain generators, many years Characteristics of symptom or complaint Aching, sharp, pressure, stabbing, numbness and tingling, shooting Aggravating or associated factors Prolonged walking, sitting, standing, bending, stairs, changing positions Relieving factors Oxycodone, activity modifications, goes to ER frequently for pain Treatment PT- made pain worse, shoulder cortisone injections [facility] Medical History Weakness Arthritis History of brain inflammation Protrusion of lumbar intervertebral disc Tinnitus Venous insufficiency Osteoarthritis Loss of hair History of headache Fibromyositis Fatigue Hyperlipidemia HTN (hypertension) Continuous opioid dependence Sinusitis Anemia Anxiety Diverticulosis Chronic idiopathic constipation Migraine Asthma Depression Diabetes 1.5, managed as type 2 Fibromyalgia Surgical History S/P panniculectomy Hx of hysterectomy Hx of oophorectomy Hx of bilateral breast reduction surgery H/O colonoscopy History of pubovaginal sling Gastric bypass status for obesity Family History Mother Colon cancer Social History Household Members: Spouse and Children Household Members Other:: lives alone Housing: House Are you a primary managed care coordinator to a significant other at home: No Do you presently have visiting nurse or other home services: Yes ([employer]) Alcohol intake: never Comment: IV infiltrated Patient Tobacco Use Status: Never used Tobacco Second Hand Smoke Exposure: No Advance Directives: No Advance Directives Information Provided: No Do you have a plan to hurt others: No Plan Patient : No service: No Current occupational status: disabled Sexual orientation: Straight/Heterosexual Gender identity: Female Review of Systems Const All systems reviewed & are unremarkable except as noted in HPI and below Physical Exam Vital Signs: Last Vital Signs Pulse 86 01/23/24 14:15 BP 138/84 01/23/24 14:15 Pulse Ox 99 01/23/24 14:15 Oxygen Delivery Method Room Air 01/23/24 14:15 BMI result Body Mass Index 33.3 General: Appears afebrile. Alert and oriented. Mood and affect appropriate. Follows and participates in conversation appropriately. Respiratory effort is unlabored. No cough. Able to transition from sit to stand unassisted. Mildly antalgic gait. Uses cane with ambulation. General: Yes no CVA tenderness Back/Spine/Pelvis Other: Limited lumbar ROM due to pain. Lumbar flexion and extension reproduce significant pain. Well healed lumbar spine scars. Seated straight leg rise with dorsiflexion negative bilaterally. TTP over paraspinals from L4-S1. +1 patellar and diminished achilles reflexes bilaterally. +Moderate TTP in projection of SIJ areas. +Tarun?s, Stinchfield, Pelvic Compression and Gaenslen?s test positive on the left. Multiple tender points 16/16 upper and lower extremities. Back: no CVA tenderness Cervical Spine: cervical muscular tenderness, pain with cervical ROM, Cervical spine scars present and No Cervical spine tenderness Thoracic/Lumbar Spine: thoracic and lumbar spine normal to inspection, Thoracic/lumbar spine scar(s), Lasegue's sign negative, straight leg raise negative bilaterally, pain with thoraco-lumbar ROM, paraspinal muscle tenderness, thoraco-lumbar ROM limited, No thoracic spinal tenderness and lumbar spinal tenderness (L4-S1) Pelvis: buttock tenderness on the left Sacroiliac joints: bilaterally (left>right) tender to palpation Results Reviewed Results Reviewed: US venous duplex LE LT 11/12/23 IMPRESSION: No DVT demonstrated in the left lower extremity. XR LUMBOSACRAL SPINE 09/25/23 CLINICAL INFORMATION: Radiculopathy, lumbar region COMPARISON: Lumbar spine 08/01/2023 FINDINGS: There 5 nonrib-bearing lumbar-type vertebral bodies. The height of vertebral bodies is well-maintained. Surgical hardware is present and secures L5-S1. There are bilateral transpedicular screws and metallic interbody spacer at L5-S1. Hardware is intact. Alignment is preserved. Flexion and extension views show no subluxation or instability. IMPRESSION: Postsurgical appearance as described. Hardware is intact. XR LUMBOSACRAL SPINE WITH OBLIQUES 01/02/23 CLINICAL INFORMATION: Lumbar intervertebral disc degeneration. COMPARISON: Portions of the MRI lumbar spine dated 06/06/2022; lumbar spine radiographs dated 02/18/2009. FINDINGS: There is bony demineralization. Vertebral body heights are normal. At L5-S1, there is marked disc space narrowing, with a 5 mm retrolisthesis. The remaining disc spaces are well-maintained. No acute fracture or spondylolisthesis is seen. There is multi-level thoracolumbar spondylosis. The posterior elements are intact. There is facet arthropathy at L5-S1. No spondylolysis defect is seen on the oblique views. Pelvic phleboliths and surgical clips are noted. IMPRESSION: 1. At L5-S1, there is marked degenerative disc disease and bilateral facet arthropathy. 2. There is multi-level thoracolumbar spondylosis. MR LUMBAR SPINE WITHOUT CONTRAST 06/06/22 CLINICAL INFORMATION: 62-year-old with lumbar radiculopathy. Self-reported low back and bilateral leg pain with pitching of the left buttock. COMPARISON: 06/26/2020 MRI. FINDINGS: CORONAL ALIGNMENT: Trace upper lumbar levocurvature noted stable in appearance. SAGITTAL ALIGNMENT: Mild retrolisthesis at L5-S1 is stable. Otherwise normal lumbar lordotic curvature. LUMBOSACRAL JUNCTION: Normal. There are 5 [id number]-[id number] lumbar-type vertebral bodies. There are 5 [id number]-odedpyr lumbar-type vertebral bodies. VERTEBRAL BODIES: Stable vertebral body heights. No interval compression fractures. DISC SPACES AND ENDPLATES: Severe disc space height loss at L5-S1, with disc desiccation, Schmorl's nodes and spondylosis stable in appearance. Remaining lumbar intervertebral discs demonstrate normal height and signal stable in appearance, with mild anterolateral spondylosis at multiple levels between T11-T12 and L5-S1 inclusive unchanged. SPINAL CANAL: No abnormal developmental findings. BONE MARROW: Minor type I degenerative marrow signal changes are noted along the endplates at L5-S1 since the previous exam. No suspicious marrow-replacing process or other bone marrow edema. CONUS MEDULLARIS: Terminates at L1. Morphology and signal is normal. INTRADURAL NERVE ROOTS: Within normal limits. L5-S1: Retrolisthesis, diffuse disc bulging and a central extruded disc herniation with mild caudal migration stable in appearance. There is encroachment on the ventral thecal sac asymmetric to the left unchanged in appearance. There is ligamentum flavum thickening and mild left-sided facet arthropathy stable in appearance. There is narrowing of the subarticular zones, left more than right with encroachment on the traversing S1 nerve roots, left more than right stable in appearance. Mild central canal stenosis is stable. Mild foraminal narrowing is noted bilaterally stable in appearance, with disc bulging and right lateral disc osteophyte complex contacting the exiting L5 nerve roots bilaterally, right more than left unchanged in appearance. L4-L5: There is disc bulging and a superimposed small central disc protrusion stable in appearance, with mild flattening of the ventral dural sac. There is mild ligamentum flavum thickening and mild facet arthropathy without significant spinal canal stenosis. No significant neural foraminal stenosis and no neural impingement. L3-L4: Minor annular bulging and a superimposed tiny central disc protrusion are stable with mild facet arthrosis unchanged in appearance without significant canal or neural foraminal stenosis. L2-L3: Very small inferior foraminal disc protrusion noted on the left stable in appearance without neural impingement. Mild facet arthropathy noted bilaterally unchanged with no significant canal or neural foraminal stenosis. L1-L2: Central to left paramedian disc protrusion noted with mild indentation of the ventral thecal sac asymmetric to the left largely unchanged in appearance with mild ligamentum flavum thickening without significant canal or neural foraminal stenosis unchanged. Small central disc protrusion at T12-L1 stable in appearance without cord impingement or significant canal stenosis. PARAVERTEBRAL AND INCLUDED EXTRASPINAL SOFT TISSUES: The visualized paravertebral soft tissues and included retroperitoneal structures are unremarkable within the limitations of the exam. IMPRESSION: 1. Stable mild retrolisthesis at L5-S1 with stable discogenic degenerative changes and spondylosis at this level with stable disc bulging and central extruded disc herniation with stable narrowing of the subarticular zones, left more than right with encroachment on the traversing S1 nerve roots, left more than right stable in appearance. 2. Stable disc bulging and small central disc protrusion at L4-L5 without significant spinal canal or neural foraminal stenosis. 3. Stable minor disc bulging and tiny central disc protrusion at L3-L4 and stable central to left paramedian disc protrusion at L1-L2. Stable small inferior foraminal disc protrusion on the left at L2-L3 and stable small central disc protrusion at T12-L1 without cord impingement. 4. Stable multilevel bilateral facet arthropathy with stable mild central canal stenosis at L5-S1. Stable mild foraminal narrowing bilaterally at L5-S1 with disc-osteophyte complex and disc bulging contacting the exiting L5 nerve roots bilaterally, right more than left stable in appearance. Assessment & Plan Assessment & Plan (1) S/P lumbar fusion: Code(s): Z98.1 - Arthrodesis status Category: Surgical (2) Post laminectomy syndrome: Code(s): M96.1 - Postlaminectomy syndrome, not elsewhere classified Category: Medical (3) Low back pain with left-sided sciatica: Code(s): M54.42 - Lumbago with sciatica, left side Category: Medical (4) Lumbar degenerative disc disease: Code(s): M51.36 - Other intervertebral disc degeneration, lumbar region Category: Medical Plan MRI of the cervical and lumbar spine to assess for hardware status s/p L5-S1 fusion in July, assess for neural integrity and compression and follow up on previous MRI findings. Patient recently completed physical therapy with worsening of her symptoms. She is encouraged to follow-up with Dr. Leon office as well. Short script for oxycodone provided for [id number] pain only while patient awaits MRI. Reviewed side effects and precautions with patient. All questions and concerns have Sprint patient agreed with this. Follow-up for MRI results and sooner as needed. Orders: Orders MR lumbar spine wo/w con 01/23/24 M51.36 - Other intervertebral disc degeneration, lumbar region, M54.42 - Lumbago with sciatica, left side, M96.1 - Postlaminectomy syndrome, not elsewhere classified, Z98.1 - Arthrodesis status Medications: Changed From oxycodone Partial Fill upon patient request. 5 mg PO Q6H PRN 7 tabs 0RF pain M51.36 - Other intervertebral disc degeneration, lumbar region, M54.42 - Lumbago with sciatica, left side, M96.1 - Postlaminectomy syndrome, not elsewhere classified, Z98.1 - Arthrodesis status To oxycodone Partial Fill upon patient request. 5 mg PO Q8H 7 days PRN 20 tabs 0RF pain (scale score 7-10) M51.36 - Other intervertebral disc degeneration, lumbar region, M54.42 - Lumbago with sciatica, left side, M96.1 - Postlaminectomy syndrome, not elsewhere classified, Z98.1 - Arthrodesis status Coding Level of Care Code Est Pt Level 4 (87191) Complex EM visit Add On G2211 Diagnoses S/P lumbar fusion Z98.1 Post laminectomy syndrome M96.1 Low back pain with left-sided sciatica M54.42 Lumbar degenerative disc disease M51.36
[2024-01-23 14:15] VITALS: BP 138/84; PULSE 86; O2SAT 99; BMI 33.3
== END 2024-01-23 14:37 | disposition home or self-care (01) ==
PROVIDERS: PCP Internal Medicine; Visit Provider Nurse Practitioner Family
DX: Z98.1 Arthrodesis status (principal); M96.1 Postlaminectomy syndrome, not elsewhere classified; M54.42 Lumbago with sciatica, left side; M51.36 Other intervertebral disc degeneration, lumbar region
CPT/HCPCS: 99214

== ENCOUNTER → 2024-01-23 14:09 | Outpatient (BNVA) | payer MEDICAID, SELFPAY | PROVIDERS: PCP Internal Medicine; Visit Provider Nurse Practitioner Family | DX: M96.1 Postlaminectomy syndrome, not elsewhere classified (principal); M54.42 Lumbago with sciatica, left side; M51.36 Other intervertebral disc degeneration, lumbar region; Z98.1 Arthrodesis status | CPT/HCPCS: 99212 ==

== ENCOUNTER 2024-01-25 21:05 | Emergency (ER) | payer MEDICAID, SELFPAY ==
--- NOTE | 2024-01-25 | ECG_ITS ---
Test Reason : CHEST TIGHTNESS Blood Pressure : / mmHG Vent. Rate : 088 BPM Atrial Rate : 088 BPM P-R Int : 180 ms QRS Dur : 092 ms QT Int : 380 ms P-R-T Axes : 060 -16 048 degrees QTc Int : 459 ms Normal sinus rhythm Minimal voltage criteria for LVH, may be normal variant ( R in aVL ) Cannot rule out Anterior infarct , age undetermined Abnormal ECG When compared with ECG of 06-AUG-2023 15:12, Anterior infarct is now Present Referred By: Martín Shah Electronically Signed By:KALYANI PANDA
[2024-01-25 21:30] VITALS: BP 143/74; PULSE 89; RESP 18; TEMP 36.6; O2SAT 99; BMI 33.3
[2024-01-25 21:36] LABS: MANUAL DIFF FLAG NO
[2024-01-25 21:38] LABS: Basophils Percent Auto 0.2 % (0-2); Eosinophils Absolute Auto 0.1 X10*3/uL (0.0-0.4); Eosinophils Percent Auto 1.3 % (0-4); Hematocrit 31.6 % (37.0-47.0); Hemoglobin 9.9 g/dl (12.0-16.0); Imm Gran Abs Auto 0.06 X10*3/uL (0.00-0.03); Imm Gran Pct Auto 0.6 % (0.0-0.4); Lymphocytes Percent Auto 21.8 % (20-40); Mean Corpuscular HGB Conc 31.3 g/dl (31.0-35.0); Mean Corpuscular Hemoglobin 24.6 pg (27.0-33.0); Mean Corpuscular Volume 78.4 fL (80.0-98.0); Mean Platelet Volume 10.3 fL (9.4-12.3); Monocytes Absolute Auto 0.6 X10*3/uL (0.1-1.2); Neutrophils Absolute Auto 6.5 x10*3/uL (2.0-8.3); Neutrophils Percent Auto 70.1 % (45-73); Platelet Count 257 X10*3/uL (160-400); Red Blood Count 4.03 X10*6/uL (4.20-5.50); Red Cell Distribution Width 16.7 % (11.0-16.0); White Blood Count 9.3 X10*3/uL (4.8-10.8)
[2024-01-25 21:56] LABS: Alanine Aminotransferase 15 U/L (0-31); Albumin Level 3.9 g/dL (3.5-5.0); Alkaline Phosphatase 79 U/L (39-117); Anion Gap 17 (12-20); Aspartate Amino Transferase 18 U/L (5-31); Bilirubin Total 0.1 mg/dL (0.0-1.0); Blood Urea Nitrogen 17 mg/dL (9-16); Carbon Dioxide 25 mmol/L (22-29); Chloride 102 mmol/L (96-108); Creatinine Clr Calc Pharmacy 76.4; Estimated Glomerular Filt Rate > 60; Glucose Random 248 mg/dL (60-115); Magnesium 1.9 mg/dL (1.6-2.6); Sodium 140 mmol/L (135-145); Total Protein 7.3 g/dL (6.5-8.0)
[2024-01-25 22:07] LABS: Troponin-I High Sensitivity < 2.7 ng/L (<3.5-17.0)
--- NOTE | 2024-01-25 22:59 | ED_ITS ---
HPI - Chest Pain General Chief Complaint: Chest Pain Stated Complaint: Chest tightness Time Seen by Provider: 01/25/24 22:53 Source: patient Mode of arrival: ambulatory Limitations: no limitations History of Present Illness ED Provider: jason RODGERS narrative: Patient's history of anxiety been here multiple times comes here for off and on chest pain for a month got worse 18:00 today no radiation of the pain no shortness a breath patient ambulating steady gait and saturating 99% at room air Related Data Home Medications ?Medication ?Instructions ?Recorded ?Confirmed aripiprazole 10 mg tablet 10 mg PO DAILY 01/23/24 ferrous sulfate 325 mg (65 mg 325 mg PO DAILY 01/23/24 iron) tablet,delayed release trazodone 100 mg tablet 300 mg PO BEDTIME 01/23/24 venlafaxine 150 mg 300 mg PO QAM 01/23/24 capsule,extended release 24 hr Previous Rx's ?Medication ?Instructions ?Recorded clonazepam 1 mg tablet 1 mg PO BID 30 days #60 tabs 12/16/22 albuterol sulfate 90 mcg/actuation 1 inh inhalation QID PRN shortness 08/12/23 aerosol inhaler of breath or wheezing #6.7 grams gabapentin 300 mg capsule 300 mg PO DAILY #30 caps 08/12/23 gabapentin 600 mg tablet 600 mg PO BEDTIME #30 tabs 08/12/23 hydrochlorothiazide 50 mg tablet 50 mg PO DAILY #30 tabs 08/12/23 metformin 500 mg tablet,extended 500 mg PO BIDWM #60 tabs 08/12/23 release 24 hr polyethylene glycol 3350 17 gram 17 g PO DAILY #30 ea 08/12/23 oral powder packet sennosides 8.6 mg-docusate sodium 2 tab PO BID #120 tabs 08/12/23 50 mg tablet (Senna Plus) lidocaine 5 % topical patch 1 patch topical DAILY #30 ea 09/02/23 acetaminophen 500 mg capsule 1,000 mg (2 x 500 mg) PO TID PRN 09/25/23 pain #90 caps methocarbamol 750 mg tablet 750 mg PO TID moderate pain & 09/25/23 muscle spasms #30 tabs prednisone 20 mg tablet 40 mg (2 x 20 mg) PO DAILY #10 tabs 11/01/23 lidocaine 5 % topical patch 1 patch topical DAILY #30 ea 11/13/23 oxycodone 5 mg tablet 5 mg PO Q8H PRN pain (scale score 01/23/24 7-10) 7 days #20 tabs Allergies Allergy/AdvReac Type Severity Reaction Status Date / Time morphine [MORPHINE] Allergy Intermediate PALPITATIONS, Verified 01/25/24 21:31 tachicardia quetiapine [Seroquel] Allergy Intermediate Aggitation Verified 01/25/24 21:31 orphenadrine [ORPHENADRINE] AdvReac Intermediate RAPID Verified 01/25/24 21:31 HEART RATE Review of Systems 2 Review of Systems: Yes all other systems are reviewed and are negative [facility] Past Medical History Medical History Weakness Arthritis History of brain inflammation Protrusion of lumbar intervertebral disc Tinnitus Venous insufficiency Osteoarthritis Loss of hair History of headache Fibromyositis Fatigue Hyperlipidemia HTN (hypertension) Continuous opioid dependence Sinusitis Anemia Anxiety Diverticulosis Chronic idiopathic constipation Migraine Asthma Depression Diabetes 1.5, managed as type 2 Fibromyalgia Surgical History S/P panniculectomy Hx of hysterectomy Hx of oophorectomy Hx of bilateral breast reduction surgery H/O colonoscopy History of pubovaginal sling Gastric bypass status for obesity Family History Family History Mother Colon cancer Social History Social History Household Members: Spouse and Children Household Members Other:: lives alone Housing: House Are you a primary sub acute care nurse to a significant other at home: No Do you presently have visiting nurse or other home services: Yes ([employer]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) Alcohol intake: never Comment: IV infiltrated Patient Tobacco Use Status: Never used Tobacco Second Hand Smoke Exposure: No Advance Directives: No Advance Directives Information Provided: No Do you have a plan to hurt others: No Plan Patient : No service: No Current occupational status: disabled Sexual orientation: Straight/Heterosexual Gender identity: Female Physical Exam 2 Vital Signs: Vital Signs: Last Vital Signs Temp 98.2 F 01/26/24 00:18 Pulse 89 01/26/24 00:18 Resp 18 01/26/24 00:18 BP 148/82 H 01/26/24 00:18 Pulse Ox 96 01/26/24 00:18 O2 Del Method Room Air 01/25/24 21:30 BMI result Body Mass Index 33.3 Appearance: Alert. Oriented X3. No acute distress. Anxious Eyes: No pallor ENT: Pharynx normal. Oral Mucosa moist Neck: Normal inspection. Neck supple. CVS: Normal heart rate and rhythm. Pulses normal. Respiratory: No respiratory distress. Equal air entry bilateral, no wheezing/rales/rhonchi Abdomen: Soft and nontender. Bowel sounds are present, no mass palpable, no CVA tenderness Skin: Skin warm and dry. Normal skin color. Normal skin turgor. Extremities: No lower extremity edema. No calf tenderness Neuro: Oriented X 3. No motor deficit. No sensory deficit.No cerebellar signs , cranial nerves II-XII intact Medications Administered Discontinued Medications Generic Name Dose Route Start Last Admin Trade Name Freq PRN Reason Stop Dose Admin Oxycodone HCl 5 mg 01/25/24 23:31 01/25/24 23:48 Oxycodone Hcl Immed Release 5 Mg Tablet PO 01/25/24 23:32 5 mg ONCE ONE Administration Medical Decision Making Medical Decision Making [facility] Narrative: Patient's history of fibromyalgia with a typical chest pain for over a month with normal cardiac enzymes no acute ischemic changes in the EKG will discharge patient home 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 01/25/24 21:30 01/25/24 21:30 Labs: Lab Results 01/25/24 Range/Units 21:30 WBC 9.3 (4.8-10.8) X10*3/uL RBC 4.03 L (4.20-5.50) X10*6/uL Hgb 9.9 L (12.0-16.0) g/dl Hct 31.6 L (37.0-47.0) % MCV 78.4 L (80.0-98.0) fL MCH 24.6 L (27.0-33.0) pg MCHC 31.3 (31.0-35.0) g/dl RDW 16.7 H (11.0-16.0) % Plt Count 257 (160-400) X10*3/uL MPV 10.3 (9.4-12.3) fL Immature Gran % (Auto) 0.6 H (0.0-0.4) % Neut % (Auto) 70.1 (45-73) % Lymph % (Auto) 21.8 (20-40) % [place] % (Auto) 6.0 (2-11) % Eos % (Auto) 1.3 (0-4) % Baso % (Auto) 0.2 (0-2) % Lymph # (Auto) 2.0 (1.2-4.9) X10*3/uL [place] # (Auto) 0.6 (0.1-1.2) X10*3/uL Eos # (Auto) 0.1 (0.0-0.4) X10*3/uL Baso # (Auto) 0.0 (0.0-0.2) X10*3/uL Abs Immat Gran (auto) 0.06 H (0.00-0.03) X10*3/uL Absolute Neuts (auto) 6.5 (2.0-8.3) x10*3/uL Absolute Nucleated RBC 0.000 (0.0-0.012) X10*3/uL Nucleated RBC % (auto) 0.0 (0.0-0.2) /100WBC Sodium 140 (135-145) mmol/L Potassium 4.0 (3.3-5.1) mmol/L Chloride 102 (96-108) mmol/L Carbon Dioxide 25 (22-29) mmol/L Anion Gap 17 (12-20) BUN 17 H (9-16) mg/dL Creatinine 0.86 (0.5-1.4) mg/dL Estim Creat Clear Calc 76.4 Estimated GFR > 60 Random Glucose 248 H (60-115) mg/dL Calcium 9.0 (8.4-10.2) mg/dL Magnesium 1.9 (1.6-2.6) mg/dL Total Bilirubin 0.1 (0.0-1.0) mg/dL AST 18 (5-31) U/L ALT 15 (0-31) U/L Alkaline Phosphatase 79 (39-117) U/L Troponin I High Sens < 2.7 (<3.5-17.0) ng/L Total Protein 7.3 (6.5-8.0) g/dL Albumin 3.9 (3.5-5.0) g/dL Independent Interpretation I performed an independent interpretation of an: EKG Interpretation: Normal sinus rhythm heart rate 88 beats per minute LVH poor progression of R- wave no acute STT wave changes no acute ischemia Discharge Plan Discharge Clinical Impression: Fibromyalgia, Chest pain Patient Disposition: Home, Self-Care Instructions: Chest Pain (ED), Fibromyalgia (ED) Additional Instructions: Take pain medication as prescribed by your PCP yesterday Your chest pain is not from heart likely musculoskeletal and from fibromyalgia Prescriptions: No Action lidocaine 5 % adhesive patch,medicated 1 patch topical DAILY Qty: 30 0RF Rx Instructions: leave on most painful area for up to 12 hrs, do not put directly over incisions clonazepam 1 mg tablet 1 mg PO BID 30 Days Qty: 60 0RF albuterol sulfate 90 mcg/actuation HFA aerosol inhaler 1 inh inhalation QID PRN (Reason: shortness of breath or wheezing) Qty: 6.7 0RF gabapentin 600 mg tablet 600 mg PO BEDTIME Qty: 30 0RF gabapentin 300 mg Capsule 300 mg PO DAILY Qty: 30 0RF hydrochlorothiazide 50 mg tablet 50 mg PO DAILY Qty: 30 0RF polyethylene glycol 3350 17 gram powder in packet 17 g PO DAILY Qty: 30 0RF sennosides-docusate sodium [Senna Plus] 8.6-50 mg Tablet 2 tab PO BID Qty: 120 0RF metformin 500 mg Tablet Extended Release 24 Hr 500 mg PO BIDWM Qty: 60 0RF prednisone 20 mg tablet 40 mg PO DAILY Qty: 10 0RF lidocaine 5 % adhesive patch,medicated 1 patch topical DAILY Qty: 30 0RF Rx Instructions: leave on most painful area for up to 12 hrs methocarbamol 750 mg tablet 750 mg PO TID Qty: 30 0RF acetaminophen 500 mg capsule 1,000 mg PO TID PRN (Reason: pain) Qty: 90 0RF aripiprazole 10 mg tablet 10 mg PO DAILY venlafaxine 150 mg capsule,extended release 24hr 300 mg PO QAM trazodone 100 mg tablet 300 mg PO BEDTIME ferrous sulfate 325 mg (65 mg iron) tablet,delayed release (DR/EC) 325 mg PO DAILY oxycodone 5 mg tablet 5 mg PO Q8H PRN (Reason: pain (scale score 7-10)) 7 Days Qty: 20 0RF Rx Instructions: Partial Fill upon patient request. Interventions: ED Discharge Assessment Last Done: 01/26/24 00:18 Discharge Date/Time: 01/25/24 23:51 Print Language: Bulgarian
[2024-01-25] MEDS: oxyCODONE HCl Immed Release 5 MG TABLET PO (23:48)
[2024-01-25 23:49] VITALS: BP 148/82; PULSE 89; RESP 18; TEMP 36.8; O2SAT 96
[2024-01-26 00:18] VITALS: BP 148/82; PULSE 89; RESP 18; TEMP 36.8; O2SAT 96
== END 2024-01-25 23:51 | disposition home or self-care (01) ==
PROVIDERS: Emergency Provider Internal Medicine; PCP Internal Medicine
DX: R07.89 Other chest pain (principal); M79.7 Fibromyalgia; Z79.899 Other long term (current) drug therapy
CPT/HCPCS: 36415; 80053; 83735; 84484; 85025; 93005; 99284

== ENCOUNTER 2024-01-27 14:21 | Outpatient (AMB) | payer MEDICAID, SELFPAY ==
--- NOTE | 2024-01-27 14:27 | A.SPINEOV_ITS ---
Intake Visit Reasons: follow up after PT Intake Note: Mrs. Rob Santiago is here today to f/u after PT. 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 She reports that she recently quit physical therapy as she felt it was not particularly helpful and was only causing her pain. She has been reportedly doing the exercises at home. In addition to this she has been following up with our colleagues in pain management whom she reports have sent her for a repeat MRI and are considering cortisone injections in the lumbar spine. I encouraged her to continue pursuing this with our service as I do not believe there are any subsequent surgeries that could help relieve her pain. We discussed postoperative healing course and realistic outcomes of surgery. It is well documented that it can take up to a year to completely heal from this type of surgery. She was encouraged to continue working with pain management, doing her physical therapy exercises, and working with her primary care provider as needed. I do not believe there is any surgical intervention that is warranted or required at this time. Pj Leon MD,PhD [facility] Coding Level of Care Code Global (25987) Diagnoses S/P lumbar fusion Z98.1
== END 2024-01-27 14:40 | disposition home or self-care (01) ==
PROVIDERS: PCP Internal Medicine; Visit Provider Physician Assistant
DX: Z98.1 Arthrodesis status (principal)
CPT/HCPCS: 99213

== ENCOUNTER → 2024-01-27 14:21 | Outpatient (BNVA) | payer MEDICAID, SELFPAY | PROVIDERS: PCP Internal Medicine; Visit Provider Physician Assistant | DX: Z47.89 Encounter for other orthopedic aftercare (principal); Z98.1 Arthrodesis status | CPT/HCPCS: 99212 ==

== ENCOUNTER 2024-02-10 13:47 | Outpatient (REF) | payer MEDICAID, SELFPAY ==
--- NOTE | ~2024-02-10 | US_ITS ---
EXAMINATION: MM DIAGNOSTIC DIGITAL BREAST TOMOSYNTHESIS, BILATERAL US BREAST LIMITED, RIGHT MAMMOGRAPHY: CLINICAL INFORMATION: Diagnostic exam the right breast pain lower outer quadrant radiating to nipple. Patient also due for yearly. COMPARISON: Mammography: 05/10/2022, 05/09/2021 03/21/2020, and more remote exams. TECHNIQUE: Digital breast tomosynthesis is performed in both the craniocaudal and mediolateral oblique views along with computer-aided detection (CAD). Synthesized 2D images are generated from the tomosynthesis. FINDINGS: The breasts are almost entirely fatty (ACR BI-RADS breast composition Category a). There are no suspicious masses, suspicious grouped calcifications, or areas of architectural distortion in either breast. The parenchymal pattern is stable from prior exams. There is no skin or axillary abnormality. There is no mammographic correlate to the region of breast pain lower outer quadrant. ULTRASOUND: CLINICAL INFORMATION: As above. COMPARISON: None relevant. TECHNIQUE: Targeted sonographic evaluation right breast was performed using a high frequency linear transducer. Attention was given to the lower outer quadrant, to include the area of breast pain. Selected archived documentation. FINDINGS: RIGHT BREAST: There is predominantly fatty breast tissue. No suspicious mass is seen. There is no pathologic acoustic shadowing. No cystic abnormalities. No architectural abnormality. There is no sonographic correlate to the region of right breast pain lower outer quadrant. US/US breast RT limited mamm only IMPRESSION: There are no findings suspicious for malignancy in either breast. Region of right breast pain lower outer quadrant shows no mammographic or sonographic correlate. Recommend clinical management and follow-up. Otherwise, recommend the patient return to routine annual screening. OVERALL ASSESSMENT: Mammography: BI-RADS 1 - Negative Ultrasound: BI-RADS 1 - Negative RECOMMENDATION: 1. Patient should be managed based on the clinical impression. 2. Otherwise, routine annual screening mammography. This patient's information was entered into a reminder system with a target due date for their next mammogram. Electronically signed by: Kory Johnson MD 02/10/2024 05:24 PM EDT
== END 2024-02-10 13:48 | disposition home or self-care (01) ==
LOC: HO.MAMMO 13:47
PROVIDERS: PCP Internal Medicine; Visit Provider Internal Medicine
DX: N64.4 Mastodynia (principal)
CPT/HCPCS: 76642; 77062; 77066

== ENCOUNTER → 2024-02-10 14:30 | Outpatient (BNV) | payer MEDICAID, SELFPAY | PROVIDERS: PCP Internal Medicine; Visit Provider Radiology Diagnostic Radiology | DX: N64.4 Mastodynia (principal) | CPT/HCPCS: 76642; 77062; 77066 ==

== ENCOUNTER 2024-02-28 15:14 | Outpatient (REF) | payer MEDICAID, SELFPAY ==
--- NOTE | ~2024-02-28 | MR_ITS ---
EXAMINATION: MR LUMBAR SPINE WITHOUT AND WITH CONTRAST CLINICAL INFORMATION: Arthrodesis status COMPARISON: MRI lumbar spine on 04/04/2023 TECHNIQUE: MRI of the lumbar spine was obtained using routine sequences with and without contrast. Intravenous contrast: Gadavist 10 mL FINDINGS: Mild retrolisthesis at L5-S1. Sequelae of posterior spinal fusion at L5/S1. Otherwise, no acute bone marrow abnormality or suspicious enhancement. The vertebral body heights are otherwise preserved. Multilevel disc desiccation without significant disc height loss. Multilevel endplate osteophytosis. The visualized spinal cord is normal in caliber. No abnormal cord signal or enhancement. The conus medullaris terminates at L1-2. T12-L1: Diffuse disc bulge and bilateral facet arthrosis. No significant spinal canal or neural foraminal narrowing. L1-2: Diffuse disc bulge and bilateral facet arthrosis. No significant spinal canal or neural foraminal narrowing. L2-3: Bilateral facet arthrosis. No significant spinal canal or neural foraminal narrowing. L3-4: Shallow disc bulge. No significant spinal canal or neural foraminal narrowing. L4-5: Diffuse disc bulge with superimposed central disc protrusion. Annular fissure, ligamentum flavum hypertrophy, and bilateral facet arthrosis. No significant spinal canal or neural foraminal narrowing however the disc abuts the exiting L4 nerve roots bilaterally, unchanged. L5-S1: Postsurgical changes. There is a residual central/left paracentral disc protrusion. No significant residual spinal canal stenosis. The left neural foramen is patent. Evaluation of the right neural foramen is significantly obscured by artifact however there is suggestion of persistent mild neural foraminal narrowing. The paravertebral soft tissues are unremarkable. MR/MR lumbar spine wo/w con IMPRESSION: -Postsurgical changes from posterior spinal fusion at L5-S1. There is a residual central/left paracentral disc protrusion at this level without significant residual spinal canal stenosis. Suggestion of persistent mild right neural foraminal narrowing that evaluation is limited by artifact. -At L4-L5, there is a disc bulge with superimposed central disc protrusion which abuts the exiting L4 nerve roots bilaterally, unchanged compared to MRI from 04/04/2023. Electronically signed by: Jason Hatch MD 02/29/2024 10:03 AM EDT
[2024-02-28] MEDS: gadobutroL 10 ML VIAL IVPUSH (16:43)
== END 2024-02-28 15:15 | disposition home or self-care (01) ==
LOC: HO.MRI 15:14
PROVIDERS: PCP Internal Medicine; Visit Provider Nurse Practitioner Family
DX: M96.1 Postlaminectomy syndrome, not elsewhere classified (principal); M54.42 Lumbago with sciatica, left side; Z98.1 Arthrodesis status; M51.369 Other intervertebral disc degeneration, lumbar region without mention of lumbar back pain or lower extremity pain
CPT/HCPCS: 72158; A9585

== ENCOUNTER 2024-03-01 06:12 | Emergency (ER) | payer MEDICAID, SELFPAY ==
[2024-03-01 06:16] VITALS: BP 155/68; PULSE 98; RESP 18; TEMP 36.1; O2SAT 95; BMI 34.9
--- NOTE | 2024-03-01 06:57 | ED.BACK ---
HPI - Back Pain/Injury General Chief Complaint: Back Pain/Injury Stated Complaint: lower back and bilateral leg pain Time Seen by Provider: 03/01/24 06:27 Source: patient and RN notes reviewed Mode of arrival: ambulatory Limitations: no limitations History of Present Illness ED Provider: Sailaja Cameron PA-C HPI Narrative: This is a 64-year-old female, with a history of chronic pain syndrome, arthritis, hypertension, hyperlipidemia, diabetes, fibromyalgia, who presents emergency department with complaints of chronic left-sided back pain and leg pain. Patient reports no recent trauma or injury. She has been seen by the culinary specialist in the past has utilize physical therapy which she is no longer doing. She also states that she is currently being followed by the plate painter apprentice. She states that she had an MRI on Friday that was ordered by her plate painter apprentice and is awaiting the results. She is unsure when she has another appointment with a plate painter apprentice. She states that oxycodone helps with her pain however states that she ran out of this medication and has been taking ibuprofen/naproxen for her symptoms which has provided her with little relief. She denies any urinary or bowel retention or incontinence. No saddle anesthesia. Pain worsens with movement of her left leg and back. No history of IVDA. She denies any fevers, chills, chest pain, shortness of breath, abdominal pain, nausea, vomiting or diarrhea. No urinary frequency, urgency, dysuria. Denies any other complaints or concerns at this time. MD elicited complaint: back pain Pertinent past history: prior back pain Onset (ago): year(s) Timing: constant Severity: moderate Similar Symptoms Previously: Yes Quality: burning and aching Location: lumbar spine and left lower back Radiation: left leg below the knee Exacerbating factors: movement and walking Relieving factors: immobilization and medication Associated symptoms: denies other symptoms Related Data Home Medications ?Medication ?Instructions ?Recorded ?Confirmed aripiprazole 10 mg tablet 10 mg PO DAILY 01/23/24 ferrous sulfate 325 mg (65 mg 325 mg PO DAILY 01/23/24 iron) tablet,delayed release trazodone 100 mg tablet 300 mg PO BEDTIME 01/23/24 venlafaxine 150 mg 300 mg PO QAM 01/23/24 capsule,extended release 24 hr Previous Rx's ?Medication ?Instructions ?Recorded clonazepam 1 mg tablet 1 mg PO BID 30 days #60 tabs 12/16/22 albuterol sulfate 90 mcg/actuation 1 inh inhalation QID PRN shortness 08/12/23 aerosol inhaler of breath or wheezing #6.7 grams gabapentin 300 mg capsule 300 mg PO DAILY #30 caps 08/12/23 gabapentin 600 mg tablet 600 mg PO BEDTIME #30 tabs 08/12/23 hydrochlorothiazide 50 mg tablet 50 mg PO DAILY #30 tabs 08/12/23 metformin 500 mg tablet,extended 500 mg PO BIDWM #60 tabs 08/12/23 release 24 hr polyethylene glycol 3350 17 gram 17 g PO DAILY #30 ea 08/12/23 oral powder packet sennosides 8.6 mg-docusate sodium 2 tab PO BID #120 tabs 08/12/23 50 mg tablet (Senna Plus) lidocaine 5 % topical patch 1 patch topical DAILY #30 ea 09/02/23 acetaminophen 500 mg capsule 1,000 mg (2 x 500 mg) PO TID PRN 09/25/23 pain #90 caps methocarbamol 750 mg tablet 750 mg PO TID moderate pain & 09/25/23 muscle spasms #30 tabs prednisone 20 mg tablet 40 mg (2 x 20 mg) PO DAILY #10 tabs 11/01/23 lidocaine 5 % topical patch 1 patch topical DAILY #30 ea 11/13/23 oxycodone 5 mg tablet 5 mg PO Q8H PRN pain (scale score 01/23/24 7-10) 7 days #20 tabs ketorolac 10 mg tablet 10 mg PO Q8H 3 days #9 tabs 03/01/24 lidocaine 5 % topical patch 1 patch topical DAILY #30 ea 03/01/24 (Lidoderm) Allergies Allergy/AdvReac Type Severity Reaction Status Date / Time morphine [MORPHINE] Allergy Intermediate PALPITATIONS, Verified 03/01/24 06:19 tachicardia quetiapine [Seroquel] Allergy Intermediate Aggitation Verified 03/01/24 06:19 orphenadrine [ORPHENADRINE] AdvReac Intermediate RAPID Verified 03/01/24 06:19 HEART RATE Review of Systems Review of Systems: Yes all other systems are reviewed and are negative Constitutional: Constitutional: Reports as per [facility] Past Medical History Medical History Weakness Arthritis History of brain inflammation Protrusion of lumbar intervertebral disc Tinnitus Venous insufficiency Osteoarthritis Loss of hair History of headache Fibromyositis Fatigue Hyperlipidemia HTN (hypertension) Continuous opioid dependence Sinusitis Anemia Anxiety Diverticulosis Chronic idiopathic constipation Migraine Asthma Depression Diabetes 1.5, managed as type 2 Fibromyalgia Surgical History S/P panniculectomy Hx of hysterectomy Hx of oophorectomy Hx of bilateral breast reduction surgery H/O colonoscopy History of pubovaginal sling Gastric bypass status for obesity Family History Family History Mother Colon cancer Social History Social History Household Members: Spouse and Children Household Members Other:: lives alone Housing: House Are you a primary rn acute care to a significant other at home: No Do you presently have 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) Alcohol intake: never Comment: IV infiltrated Patient Tobacco Use Status: Never used Tobacco Smoked in Last 30 Days: No Second Hand Smoke Exposure: No Use of substances other than those prescribed or required for medical reasons: No Advance Directives: No Advance Directives Information Provided: Yes Patient : No service: No Current occupational status: disabled Sexual orientation: Straight/Heterosexual Gender identity: Female Physical Exam Vital Signs: Vital Signs: Last Vital Signs Temp 96.9 F 03/01/24 06:16 Pulse 98 03/01/24 06:16 Resp 18 03/01/24 06:16 BP 155/68 H 03/01/24 06:16 Pulse Ox 95 03/01/24 06:16 O2 Del Method Room Air 03/01/24 06:16 BMI result Body Mass Index 34.9 Const: General: cooperative, comfortable and no acute distress Orientation/consciousness: patient oriented x3 Limitations: no limitations HEENT: Head: Yes normal to inspection, Yes normocephalic and Yes atraumatic Ears: hearing grossly normal bilaterally General nose exam: Normal external nose present Face and sinus: Yes normal facial exam Mouth: Normal oral and palatal mucosa present, oropharynx normal and moist mucous membranes Throat: Yes posterior oropharynx normal Eyes: General: appearance normal, both eyes and all related structures Eyelids: Yes eyelids normal Conjunctivae: conjunctivae normal Sclerae: sclerae normal Pupils: Equal, round and reactive pupils present EOM: EOMs intact bilaterally Neck: Neck: Yes normal visual inspection, Yes full ROM and Yes no lymphadenopathy Lymphatic: no lymphadenopathy noted Chest: Chest palpation & inspection: normal inspection of the chest Resp: Effort & Inspection: normal respiratory effort and able to speak in complete sentences Auscultation: clear to auscultation bilaterally, no crackles, no rales, no rhonchi and no wheezes Cardio: Rate: regular rate Rhythm: regular rhythm Heart sounds: S1 normal heart sound present and S2 normal heart sound present GI: Inspection: Yes normal to inspection Back/Spine/Pelvis: Other: No midline spine tenderness, she has tenderness palpation along the left low back, extending down into the left leg. No calf tenderness. No swelling. Distal sensation circulation intact DTRs are 2+. Strong DP pulse. Extremity is well perfused. Skin: General skin exam: no rashes or lesions noted Trauma: no lacerations or abrasions Wounds: no wounds Neuro: General: patient oriented x3 and moves all extremities Cranial nerves: Yes Equal, round and reactive pupils present Extrem: General: Yes normal to inspection Right upper extremity: normal to inspection Left upper extremity: normal to inspection Right lower extremity: normal to inspection Left lower extremity: normal to inspection Course Reevaluation(s) Reevaluation #1: Patient re-evaluated, feeling better after receiving Toradol injection. Patient will follow-up with her plate painter apprentice. Advised to call today. Time: 08:53 Medications Administered Discontinued Medications Generic Name Dose Route Start Last Admin Trade Name Freq PRN Reason Stop Dose Admin Ketorolac Tromethamine 30 mg 03/01/24 07:01 03/01/24 07:13 Ketorolac Tromethamine 30 Mg/Ml Vial IM 03/01/24 07:02 30 mg ONCE ONE Administration Lidocaine 1 patch 03/01/24 07:01 03/01/24 07:13 Lidocaine 4 % Patch Adh..Patch TRANSDERMA 03/01/24 07:02 1 patch ONCE ONE Administration Protocol Medical Decision Making Medical Decision Making MDM Narrative: This is a 64-year-old female presents emergency department with complaints of chronic left low back pain. She had lumbar spine surgery in July 30, 2023 and has had ongoing pain and symptoms in her low back and leg. She is followed up with Dr. Sanchez, as well as the plate painter apprentice. She had an MRI performed on Friday in his awaiting the test results. She ran out of her oxycodone and reports that she has had no improvement of her symptoms. This patient presents with back pain most consistent with chronic low back pain with associated left-sided lumbar radiculopathy.. Differential diagnoses includes lumbago versus musculoskeletal spasm / strain versus sciatica. No back pain red flags on history or physical. Presentation not consistent with malignancy (lack of history of malignancy, lack of B symptoms), fracture (no trauma, no bony tenderness to palpation), cauda equina syndrome (no bowel or urinary incontinence/retention, no saddle anesthesia, no distal weakness), pulmonary embolism, renal colic, pyelonephritis (afebrile, no CVAT, no urinary symptoms). She has had no new trauma or injury. Given that she has no red flag back symptoms or changes in her chronic pain, repeat of diagnostic imaging not indicated at this time. MRI revealing postsurgical changes from posterior spinal fusion and L5-S1. There is residual central/left paracentral disc protrusion at this level without significant residual spinal canal stenosis. This is suggested to have persistent mild right neural foraminal narrowing that evaluation is limited by artifact. L4-L5 disc bulging with superimposed central disc protrusion which abuts the exiting L4 nerve roots bilaterally. Unchanged compared to MRI from 04/04/2023. Patient will be medicated with Toradol and Lidoderm patches. We will continue to monitor for symptomatic improvement. Stressed the importance of following up with her pain management and culinary specialist. We will continue to closely monitor Differential Diagnosis Differential Diagnoses: The differential diagnosis associated with the presentation includes See above Radiology Impression Radiologist Impression: MR report from 02/27 MR/MR lumbar spine wo/w con IMPRESSION: -Postsurgical changes from posterior spinal fusion at L5-S1. There is a residual central/left paracentral disc protrusion at this level without significant residual spinal canal stenosis. Suggestion of persistent mild right neural foraminal narrowing that evaluation is limited by artifact. -At L4-L5, there is a disc bulge with superimposed central disc protrusion which abuts the exiting L4 nerve roots bilaterally, unchanged compared to MRI from 04/04/2023. Electronically signed by: Jason Hatch MD 02/29/2024 10:03 AM EDT RP Dictated By: Jason Hatch MD Signed By: <Electronically signed by External Record Review External record reviewed: Prior outpatient radiology See above Prescription Management I considered prescription management with: Pain Medication Discharge Plan Discharge Clinical Impression: Chronic back pain Patient Disposition: Home, Self-Care Instructions: Chronic Pain (ED), Chronic Back Pain (DC) Additional Instructions: You were seen in the emergency department due to chronic back pain. You need to follow-up with your plate painter apprentice, call today to make an appointment. You may take Toradol as needed for pain. Please do not mix this was naproxen or ibuprofen. If you develop any abdominal pain, discontinued Toradol. Use Lidoderm patches as needed for pain. If any new or worsening symptoms occur including but not limited to worsening pain, numbness/tingling into your groin, chest pain, shortness breath, please seek emergent care. Prescriptions: New ketorolac 10 mg tablet 10 mg PO Q8H 3 Days Qty: 9 0RF lidocaine [Lidoderm] 5 % adhesive patch,medicated 1 patch topical DAILY Qty: 30 0RF Rx Instructions: leave on most painful area for up to 12 hrs No Action lidocaine 5 % adhesive patch,medicated 1 patch topical DAILY Qty: 30 0RF Rx Instructions: leave on most painful area for up to 12 hrs, do not put directly over incisions clonazepam 1 mg tablet 1 mg PO BID 30 Days Qty: 60 0RF albuterol sulfate 90 mcg/actuation HFA aerosol inhaler 1 inh inhalation QID PRN (Reason: shortness of breath or wheezing) Qty: 6.7 0RF gabapentin 600 mg tablet 600 mg PO BEDTIME Qty: 30 0RF gabapentin 300 mg Capsule 300 mg PO DAILY Qty: 30 0RF hydrochlorothiazide 50 mg tablet 50 mg PO DAILY Qty: 30 0RF polyethylene glycol 3350 17 gram powder in packet 17 g PO DAILY Qty: 30 0RF sennosides-docusate sodium [Senna Plus] 8.6-50 mg Tablet 2 tab PO BID Qty: 120 0RF metformin 500 mg Tablet Extended Release 24 Hr 500 mg PO BIDWM Qty: 60 0RF prednisone 20 mg tablet 40 mg PO DAILY Qty: 10 0RF lidocaine 5 % adhesive patch,medicated 1 patch topical DAILY Qty: 30 0RF Rx Instructions: leave on most painful area for up to 12 hrs methocarbamol 750 mg tablet 750 mg PO TID Qty: 30 0RF acetaminophen 500 mg capsule 1,000 mg PO TID PRN (Reason: pain) Qty: 90 0RF aripiprazole 10 mg tablet 10 mg PO DAILY venlafaxine 150 mg capsule,extended release 24hr 300 mg PO QAM trazodone 100 mg tablet 300 mg PO BEDTIME ferrous sulfate 325 mg (65 mg iron) tablet,delayed release (DR/EC) 325 mg PO DAILY oxycodone 5 mg tablet 5 mg PO Q8H PRN (Reason: pain (scale score 7-10)) 7 Days Qty: 20 0RF Rx Instructions: Partial Fill upon patient request. Print Language: Japanese
[2024-03-01] MEDS: Ketorolac Tromethamine 30 MG/ML VIAL IM (07:13)
[2024-03-01] MEDS: Lidocaine 4 % Patch ADH..PATCH 1 PATCH TRANSDERMA (07:13)
[2024-03-01 09:16] VITALS: BP 129/78; PULSE 80; RESP 20; TEMP 36.5; O2SAT 95
== END 2024-03-01 09:17 | disposition home or self-care (01) ==
PROVIDERS: Emergency Provider Emergency Medicine; PCP Internal Medicine
DX: M79.605 Pain in left leg (principal); M54.9 Dorsalgia, unspecified; G89.29 Other chronic pain; E13.9 Other specified diabetes mellitus without complications; I10 Essential (primary) hypertension
CPT/HCPCS: 96372; 99284; J1885

== ENCOUNTER 2024-03-15 10:15 | Outpatient (AMB) | payer MEDICAID, SELFPAY ==
--- NOTE | 2024-03-15 10:37 | MHC.OFFVIS ---
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 Denies any recent cough, cold, infection, fever or other significant changes in medical history since last office visit. PRIOR: Patient presents today for follow-up for chronic low back pain. She was last seen in our office in 2022 and underwent L4-5 transkambin lumbar interbody fusion on 07/22/[address] Leon. Patient was seen by Neurosurgeon in September and was referred for physical therapy. Patient reports she had to stopped PT on 12/22/23 due to increased pain. She reports low back pain radiating to her left buttock and into left lower extremity. Patient reports left toes numbness since surgery with associated swelling. She has not followed up with Dr. Leon since September. Reports increased low back pain and left knee pain with walking, climbing stairs, bending or changing positions. She has been managing symptoms with Tylenol, lidocaine patches, methocarbamol and gabapentin with continued symptoms. Denies any fever or chills, weight loss, weakness, bladder or bowel dysfunction or saddle anesthesia. PRIOR 02/27/23: Patient presents today to assess response to Bilateral L5-S1 TFESI on 01/28/[address] Valentine. Patient reports 0% pain relief since injections without any improvement in her functioning, mobility or better sleep. She reports worsening low back pain with radiation to both of her legs (worse on the right) with weakness, numbness and tingling. Pain spreads across her lumbar and sacral regions. Bending, lifting and walking aggravates her pain. She continues to take gabapentin, lidocaine patches, Tylenol, and ice/heat therapy with minimal benefit. Resting and repositioning also temporarily alleviate her symptoms. Patient reports it has been painful to look after herself. Pain prevents her from doing lifting, vacuuming, standing to cook meals or wash dishes or other usual homeking chores. She is interested to proceed with Neurosurgical evaluation. We will update her lumbar spine MRIs. Patient is not interested to proceed with lumbar medial branch blocks at this time due to significant pain. Denies any fever, weight loss, abdominal or groin pain, bladder or bowel dysfunction or saddle anesthesia. Past Procedures: 01/28/23: Bilateral L5-S1 TFESI-0% pain relief PRIOR: Patient is a pleasant 62 years old female with prior history of fibromyalgia, lumbar degenerative disc disease, history of ACDF at C6-C7, chronic pain syndrome, osteoarthritis, depression, anxiety, migraine, presents today with widespread body pain, lower back, bilateral legs and hands pain. Her main concern is low back pain with radiation to both legs and feet posteriorly with numbness and tingling but no weakness. Denies any recent trauma, injury or falls. She has been followed by [facility] in the past for injections. Pain affects her daily activities, functioning, mobility, sleep, mood and quality of life. Pain is worse in the morning with intensity rated at 8-10/10 and average pain in the past 2 weeks rated at 8/10. Her diabetes is well managed with most recent A1C 5.7. She lives alone. Denies any fever, weight loss, abdominal or groin pain, foot drop, bladder or bowel incontinence or saddle anesthesia. Location Lower back that radiates down bilateral legs Duration Chronic pain syndrome, multiple pain generators, many years Characteristics of symptom or complaint Aching, sharp, pressure, stabbing, numbness and tingling, shooting Aggravating or associated factors Prolonged walking, sitting, standing, bending, stairs, changing positions Relieving factors Oxycodone, activity modifications, goes to ER frequently for pain Treatment PT- made pain worse, shoulder cortisone injections [facility] Medical History Weakness Arthritis History of brain inflammation Protrusion of lumbar intervertebral disc Tinnitus Venous insufficiency Osteoarthritis Loss of hair History of headache Fibromyositis Fatigue Hyperlipidemia HTN (hypertension) Continuous opioid dependence Sinusitis Anemia Anxiety Diverticulosis Chronic idiopathic constipation Migraine Asthma Depression Diabetes 1.5, managed as type 2 Fibromyalgia Surgical History S/P panniculectomy Hx of hysterectomy Hx of oophorectomy Hx of bilateral breast reduction surgery H/O colonoscopy History of pubovaginal sling Gastric bypass status for obesity Family History Mother Colon cancer Social History Household Members: Spouse and Children Household Members Other:: lives alone Housing: House Are you a primary healthcare sales representative to a significant other at home: No Do you presently have visiting 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 Alert and oriented. Mood and affect appropriate. Follows and participates in conversation appropriately. Respiratory effort is unlabored. No cough. Able to transition from sit to stand unassisted. Mildly antalgic gait. Uses cane with ambulation. General: Yes no CVA tenderness Back/Spine/Pelvis Other: Limited lumbar ROM due to pain. Lumbar flexion and extension reproduce significant pain. Well healed lumbar spine scars. Straight leg rise with dorsiflexion positive bilaterally. TTP over paraspinals from L4-S1. +1 patellar and diminished achilles reflexes bilaterally. +Moderate TTP in projection of SIJ areas. +Tarun?s, Stinchfield, Pelvic Compression and Gaenslen?s test positive on the left. Multiple tender points 16/16 upper and lower extremities. Back: no CVA tenderness Cervical Spine: cervical muscular tenderness, pain with cervical ROM, Cervical spine scars present and No Cervical spine tenderness Thoracic/Lumbar Spine: thoracic and lumbar spine normal to inspection, Thoracic/lumbar spine scar(s), Lasegue's sign positive bilateral and diffuse, pain with thoraco-lumbar ROM, paraspinal muscle tenderness, thoraco-lumbar ROM limited, No thoracic spinal tenderness, lumbar spinal tenderness (L4-S1) and straight leg raise positive bilateral at 60 degrees Pelvis: buttock tenderness on the left Sacroiliac joints: bilaterally (left>right) tender to palpation Extrem General: Yes capillary refill normal, Yes no clubbing, cyanosis or edema and Yes no calf tenderness Results Reviewed Results Reviewed: MR LUMBAR SPINE WITHOUT AND WITH CONTRAST 02/28/24 CLINICAL INFORMATION: Arthrodesis status COMPARISON: MRI lumbar spine on 04/04/2023 TECHNIQUE: MRI of the lumbar spine was obtained using routine sequences with and without contrast. Intravenous contrast: Gadavist 10 mL FINDINGS: Mild retrolisthesis at L5-S1. Sequelae of posterior spinal fusion at L5/S1. Otherwise, no acute bone marrow abnormality or suspicious enhancement. The vertebral body heights are otherwise preserved. Multilevel disc desiccation without significant disc height loss. Multilevel endplate osteophytosis. The visualized spinal cord is normal in caliber. No abnormal cord signal or enhancement. The conus medullaris terminates at L1-2. T12-L1: Diffuse disc bulge and bilateral facet arthrosis. No significant spinal canal or neural foraminal narrowing. L1-2: Diffuse disc bulge and bilateral facet arthrosis. No significant spinal canal or neural foraminal narrowing. L2-3: Bilateral facet arthrosis. No significant spinal canal or neural foraminal narrowing. L3-4: Shallow disc bulge. No significant spinal canal or neural foraminal narrowing. L4-5: Diffuse disc bulge with superimposed central disc protrusion. Annular fissure, ligamentum flavum hypertrophy, and bilateral facet arthrosis. No significant spinal canal or neural foraminal narrowing however the disc abuts the exiting L4 nerve roots bilaterally, unchanged. L5-S1: Postsurgical changes. There is a residual central/left paracentral disc protrusion. No significant residual spinal canal stenosis. The left neural foramen is patent. Evaluation of the right neural foramen is significantly obscured by artifact however there is suggestion of persistent mild neural foraminal narrowing. The paravertebral soft tissues are unremarkable. IMPRESSION: -Postsurgical changes from posterior spinal fusion at L5-S1. There is a residual central/left paracentral disc protrusion at this level without significant residual spinal canal stenosis. Suggestion of persistent mild right neural foraminal narrowing that evaluation is limited by artifact. -At L4-L5, there is a disc bulge with superimposed central disc protrusion which abuts the exiting L4 nerve roots bilaterally, unchanged compared to MRI from 04/04/2023. Assessment & Plan Assessment & Plan (1) S/P lumbar fusion: Code(s): Z98.1 - Arthrodesis status Category: Surgical (2) Post laminectomy syndrome: Code(s): M96.1 - Postlaminectomy syndrome, not elsewhere classified Category: Medical (3) Low back pain with left-sided sciatica: Code(s): M54.42 - Lumbago with sciatica, left side Category: Medical (4) Lumbar degenerative disc disease: Code(s): M51.36 - Other intervertebral disc degeneration, lumbar region Category: Medical Plan Patient is s/p L5-S1 fusion in July 2023 and recently attempted physical therapy but had to stop due to increase in pain. Lumbar spine MRI results were discussed with patient today. She continues to suffer with low back pain with bilateral radiculopathy, worse on the left. We will proceed with Caudal KEVIN with catheter under sedation and fluoroscopy. Expectations, risks and benefits were reviewed. Patient is aware she will be contacted to schedule this procedure. She is aware of hyperglycemic effects of steroids. Short script for oxycodone renewed today for severe pain only while patient awaits injections. Continue to monitor for any side effects. All questions and concerns have been answered and patient agreed with the treatment plan. Follow-up after injections and sooner as needed. Medications: Changed From oxycodone Partial Fill upon patient request. 5 mg PO Q8H 10 days PRN 30 tabs 0RF pain (scale score 7-10) M51.36 - Other intervertebral disc degeneration, lumbar region, M54.42 - Lumbago with sciatica, left side, M96.1 - Postlaminectomy syndrome, not elsewhere classified, Z98.1 - Arthrodesis status To oxycodone Partial Fill upon patient request. 5 mg PO Q8H PRN 21 tabs 0RF pain (scale score 7-10) 7 days M51.36 - Other intervertebral disc degeneration, lumbar region, M54.42 - Lumbago with sciatica, left side, M96.1 - Postlaminectomy syndrome, not elsewhere classified, Z98.1 - Arthrodesis status Coding Level of Care Code Est Pt Level 4 (03726) Complex EM visit Add On G2211 Diagnoses S/P lumbar fusion Z98.1 Post laminectomy syndrome M96.1 Low back pain with left-sided sciatica M54.42 Lumbar degenerative disc disease M51.36
[2024-03-15 10:44] VITALS: BP 134/70; PULSE 83; O2SAT 98; BMI 35.5
== END 2024-03-15 11:10 | disposition home or self-care (01) ==
LOC: HO.PMC 10:15
PROVIDERS: PCP Internal Medicine; Visit Provider Nurse Practitioner Family
DX: Z98.1 Arthrodesis status (principal); M96.1 Postlaminectomy syndrome, not elsewhere classified; M54.42 Lumbago with sciatica, left side; M51.369 Other intervertebral disc degeneration, lumbar region without mention of lumbar back pain or lower extremity pain
CPT/HCPCS: 99214

== ENCOUNTER → 2024-03-15 10:15 | Outpatient (BNVA) | payer MEDICAID, SELFPAY | PROVIDERS: PCP Internal Medicine; Visit Provider Nurse Practitioner Family | DX: M96.1 Postlaminectomy syndrome, not elsewhere classified (principal); M54.42 Lumbago with sciatica, left side; M51.360 Other intervertebral disc degeneration, lumbar region with discogenic back pain only; Z98.1 Arthrodesis status | CPT/HCPCS: 99212 ==

== ENCOUNTER 2024-04-12 09:19 | Outpatient (AMB) | payer MEDICAID, SELFPAY ==
--- NOTE | 2024-04-12 09:40 | MHC.OFFVIS ---
Intake Visit Reasons: Pelvic pain Public Works Inspector Required: Yes Public Works Inspector Language: Assembly Instructions Writer Services: Public Works Inspector Present (in person) Public Works Inspector Name: Graciela Devine RA Information Interpreted: non-clinical & clinical Caterpillar Operator: Caterpillar Operator Present (MILAGROS Enriquez) Accompanied by: Self / Same As Patient Allergies morphine [MORPHINE] Allergy (Intermediate, Verified 04/12/24 09:45) PALPITATIONS, tachicardia quetiapine [Seroquel] Allergy (Intermediate, Verified 04/12/24 09:45) Aggitation orphenadrine [ORPHENADRINE] Adverse Reaction (Intermediate, Verified 04/12/24 09:45) RAPID HEART RATE HPI Comments Details: The patient is presenting with bilateral lower quadrant pain started few months ago. It's intermittent in nature lasting few seconds and occurs 3x/day. it is not associated with any vaginal discharge or bleeding, no constipation, dysuria, frequency incontinence, no n/v, no feverishness PFSH Medical History Weakness Arthritis History of brain inflammation Protrusion of lumbar intervertebral disc Tinnitus Venous insufficiency Osteoarthritis Loss of hair History of headache Fibromyositis Fatigue Hyperlipidemia HTN (hypertension) Continuous opioid dependence Sinusitis Anemia Anxiety Diverticulosis Chronic idiopathic constipation Migraine Asthma Depression Diabetes 1.5, managed as type 2 Fibromyalgia Surgical History S/P panniculectomy Hx of hysterectomy Hx of oophorectomy Hx of bilateral breast reduction surgery H/O colonoscopy History of pubovaginal sling Gastric bypass status for obesity Family History Mother Colon cancer Social History Household Members: Spouse and Children Household Members Other:: lives alone Housing: House Are you a primary healthcare interpreter to a significant other at home: No Do you presently have visiting nurse or 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) Alcohol intake: never Comment: IV infiltrated Patient Tobacco Use Status: Never used Tobacco Second Hand Smoke Exposure: No service: No Current occupational status: disabled Sexual orientation: Straight/Heterosexual Gender identity: Female Review of Systems Const All systems reviewed & are unremarkable except as noted in HPI and below Physical Exam General: Yes no CVA tenderness External Female Exam: normal external appearance and normal appearance of the urethra Speculum Exam - Vagina: other (Suboptimal exam, difficult vaginal exam because of long-term abstinence) Speculum Exam - Cervix: normal appearance of the cervix, normal palpation, no lesions, no masses and nontender Bimanual exam- vagina & uterus: normal bimanual exam, uterine size normal, normal palpation, uterine shape normal, No Cervical tenderness present and non-tender Bimanual Exam- Adnexa, other: normal adnexae Back/Spine/Pelvis Back: no CVA tenderness Assessment & Plan Assessment & Plan (1) Pelvic pain: Code(s): R10.2 - Pelvic and perineal pain Category: Medical Plan: Urine dip done in the office showed trace of microscopic hematuria. pelvic ultrasound ordered. Discussed with the patient the differential diagnosis of pelvic pain including but not limited to adnexal, uterine masses, pelvic infections (PID), GI the (Irritable bowel syndrome, diverticulitis, others), musculoskeletal, myofascial pain abdominal wall , adhesions, endometriosis, psychological and others causes. Will check results and treat accordingly. All questions answered, the patient verbalized understanding. Instructed the patient to schedule follow-up appointment in 2 weeks (2) Microscopic hematuria: Code(s): R31.29 - Other microscopic hematuria Category: Medical Plan: Urine dip showed microscopic hematuria, urine culture sent. Will repeat urine dip in 2 weeks. Discussed with the patient the possible causes of microscopic hematuria including but not limited to: interstitial cystitis, polyps, stones, masses, urethral inflammatory processes and others. If Urine Culture is negative and repeat urine dip in 2 weeks shows persistent microscopic hematuria, will proceed with CT abdomen/pelvis and urology referral. Instructions given the patient to schedule a 2 week urine dip follow-up appointment. All questions answered and the patient verbalized understanding. Orders: Orders US pelvic and transvaginal Today R10.2 - Pelvic and perineal pain Coding Level of Care Code New Pt Level 3 (35341) Diagnoses Pelvic pain R10.2 Microscopic hematuria R31.29
== END 2024-04-12 10:42 | disposition home or self-care (01) ==
LOC: HO.HWS 09:19
PROVIDERS: PCP Internal Medicine; Visit Provider Obstetrics & Gynecology
DX: R10.2 Pelvic and perineal pain (principal); R31.29 Other microscopic hematuria
CPT/HCPCS: 99203

== ENCOUNTER 2024-04-12 09:19 | Outpatient (REF) | payer MEDICAID, SELFPAY | END 2024-04-12 09:20 | disposition home or self-care (01) | LOC: HO.LNP 09:19 | PROVIDERS: PCP Internal Medicine; Visit Provider Obstetrics & Gynecology | DX: R10.2 Pelvic and perineal pain (principal); R31.29 Other microscopic hematuria | CPT/HCPCS: 81002; 87086; 99202 ==

== ENCOUNTER 2024-04-16 12:53 | Outpatient (REF) | payer MEDICAID, SELFPAY ==
--- NOTE | ~2024-04-16 | US_ITS ---
EXAMINATION: US PELVIS CLINICAL INFORMATION: Pelvic and perineal pain, question cystectomy RIGHT, per patient half of RIGHT ovary removed, status post hysterectomy per prior report of 02/14/2016. COMPARISON: Pelvic ultrasound February 14, 2016. TECHNIQUE: Ultrasound of the pelvis is performed using both transabdominal and transvaginal transducers along with Doppler. Transvaginal imaging is performed due to inadequate visualization transabdominally. FINDINGS: Limited visualization due to bowel gas and body habitus. The uterus is surgically absent. 0.5 x 0.4 cm echogenic focus with shadowing in the vaginal cuff area. Ultrasound of 11/15/2014 demonstrated a 0.5 x 0.2 x 0.4 cm echogenic focus in the vaginal cuff region. Bilateral ovaries were not visualized. No significant free fluid. US/US pelvic and transvaginal IMPRESSION: 1. Uterus surgically absent. Long vaginal stripe is visualized. 2. A 0.5 x 0.4 cm echogenic focus with shadowing in the vaginal cuff area. Ultrasound of 11/15/2014 demonstrated a 0.5 x 0.2 x 0.4 cm echogenic focus in the vaginal cuff region. 3. Bilateral ovaries were not visualized. Limited visualization due to bowel gas and body habitus. Electronically signed by: Hali Heredia MD 05/17/2024 07:31 AM DIEUDONNE
== END 2024-04-16 12:54 | disposition home or self-care (01) ==
LOC: HO.US 12:53
PROVIDERS: PCP Internal Medicine; Visit Provider Obstetrics & Gynecology
DX: R10.2 Pelvic and perineal pain (principal)
CPT/HCPCS: 76830; 76856

== ENCOUNTER 2024-04-23 05:43 | Day surgery (SDC) | payer MEDICAID, SELFPAY ==
--- NOTE | 2024-04-21 12:29 | P.CONAN_ITS ---
Documented by User: Bri Arita NP 04/22/24 10:25 HPI - Anesthesia Eval Consult details Narrative: 64yo F for Caudal Epidural Steroid Injection with Catheter s/p TLIF 07/2023 with GA-ETT 7.5 01/[place] [facility] [place] [facility] [place]. ED report states multiple visits with CP r/t anxiety. EKG reviewed by Normal sinus rhythm heart rate 88 beats per minute LVH poor progression of R-wave no acute STT wave changes no acute ischemia D/C instructions: Your chest pain is not from heart likely musculoskeletal and from fibromyalgia PMFSH Active Problems Active Problems: All Active Problems Microscopic hematuria (Acute) Pelvic pain (Acute) Low back pain with left-sided sciatica (Acute) S/P lumbar fusion (Acute) Muscle spasm of back (Acute) Lumbar spinal stenosis (Acute) Lumbar degenerative disc disease (Acute) Lumbar radiculopathy (Acute) Post laminectomy syndrome (Acute) Chronic pain syndrome (Acute) MDD (major depressive disorder), recurrent episode, moderate (Acute) Chronic pain (Acute) Hesitancy of micturition (Acute) Leg pain (Acute) Varicose veins of right lower extremity with inflammation (Acute) Feeling of incomplete bladder emptying (Acute) Symptom of leg swelling (Acute) Shoulder pain, right (Acute) Osteoarthritis of right glenohumeral joint (Acute) COVID-19 (Acute) History of pubovaginal sling (Acute) Diverticulosis (Acute) Chronic idiopathic constipation (Acute) Migraine (Acute) Fibromyalgia (Acute) Diabetes 1.5, managed as type 2 (Acute) Depression (Acute) Asthma (Acute) Past Medical History Medical History (Updated 04/12/24 @ 10:13 by Reynaldo Jeffers MD) Weakness Arthritis History of brain inflammation Protrusion of lumbar intervertebral disc Tinnitus Venous insufficiency Osteoarthritis Loss of hair History of headache Fibromyositis Fatigue Hyperlipidemia HTN (hypertension) Continuous opioid dependence Sinusitis Anemia Anxiety Diverticulosis Chronic idiopathic constipation Migraine Asthma Depression Diabetes 1.5, managed as type 2 Fibromyalgia Family History Family History Mother Colon cancer Family history of problems with anesthesia: No Surgical History Surgical History (Updated 04/21/24 @ 12:29 by Kaitlynn Ford RN) History of back surgery History of esophagogastroduodenoscopy (EGD) S/P panniculectomy Hx of hysterectomy Hx of oophorectomy Hx of bilateral breast reduction surgery H/O colonoscopy History of pubovaginal sling Gastric bypass status for obesity History of Problems with Anesthesia: No Social History Social History Household Members: Spouse and Children Household Members Other:: lives alone Housing: House Are you a primary career technical education instructor to a significant other at home: No Do you presently have 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) Alcohol intake: never Comment: IV infiltrated Patient Tobacco Use Status: Never used Tobacco Second Hand Smoke Exposure: No Use of substances other than those prescribed or required for medical reasons: No Are you DNR?: No Advance Directives: No Advance Directives Information Provided: Yes service: No Current occupational status: disabled Sexual orientation: Straight/Heterosexual Gender identity: Female Meds Allergies Allergy/AdvReac Type Severity Reaction Status Date / Time morphine [MORPHINE] Allergy Intermediate PALPITATIONS, Verified 04/23/24 06:24 tachicardia quetiapine [Seroquel] Allergy Intermediate Aggitation Verified 04/23/24 06:24 orphenadrine [ORPHENADRINE] AdvReac Intermediate RAPID Verified 04/23/24 06:24 HEART RATE Home Medications ?Medication ?Instructions ?Recorded ?Confirmed ?Last Taken ?Type aripiprazole 10 mg tablet 10 mg PO DAILY 01/23/24 04/23/24 Unknown History ferrous sulfate 325 mg (65 mg 325 mg PO DAILY 01/23/24 04/23/24 Unknown History iron) tablet,delayed release trazodone 100 mg tablet 300 mg PO BEDTIME 01/23/24 04/23/24 Unknown History venlafaxine 150 mg 300 mg PO QAM 01/23/24 04/23/24 Unknown History capsule,extended release 24 hr Exam Pertinent Lab Results Pertinent Lab Results: Laboratory Tests 01/25/24 21:30 WBC 9.3 Hgb 9.9 L Hct 31.6 L Plt Count 257 Sodium 140 Potassium 4.0 Chloride 102 Carbon Dioxide 25 BUN 17 H Creatinine 0.86 Narrative Narrative: EKG 01/2024 Vent. Rate : 088 BPM Atrial Rate : 088 BPM P-R Int : 180 ms QRS Dur : 092 ms QT Int : 380 ms P-R-T Axes : 060 -16 048 degrees QTc Int : 459 ms Normal sinus rhythm Minimal voltage criteria for LVH, may be normal variant ( R in aVL ) Cannot rule out Anterior infarct , age undetermined Abnormal ECG When compared with ECG of 06-AUG-2023 15:12, Anterior infarct is now Present Assessment and Plan Assessment Anesthesia Assessment: Chart Reviewed Final Anesthetic Review Family History of Problems with Anesthesia: No History of Problems with Anesthesia: No Documented by User: Fernanda Mitchell MD 04/23/24 07:19 [facility] Past Medical History Medical History (Updated 04/12/24 @ 10:13 by Reynaldo Jeffers MD) Weakness Arthritis History of brain inflammation Protrusion of lumbar intervertebral disc Tinnitus Venous insufficiency Osteoarthritis Loss of hair History of headache Fibromyositis Fatigue Hyperlipidemia HTN (hypertension) Continuous opioid dependence Sinusitis Anemia Anxiety Diverticulosis Chronic idiopathic constipation Migraine Asthma Depression Diabetes 1.5, managed as type 2 Fibromyalgia Family History Family History Mother Colon cancer Surgical History Surgical History (Updated 04/21/24 @ 12:29 by Kaitlynn Ford RN) History of back surgery History of esophagogastroduodenoscopy (EGD) S/P panniculectomy Hx of hysterectomy Hx of oophorectomy Hx of bilateral breast reduction surgery H/O colonoscopy History of pubovaginal sling Gastric bypass status for obesity Social History Social History Household Members: Spouse and Children Household Members Other:: lives alone Housing: House Are you a primary career technical education instructor to a significant other at home: No Do you presently have 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) Alcohol intake: never Comment: IV infiltrated Patient Tobacco Use Status: Never used Tobacco Second Hand Smoke Exposure: No Use of substances other than those prescribed or required for medical reasons: No Are you DNR?: No Advance Directives: No Advance Directives Information Provided: Yes service: No Current occupational status: disabled Sexual orientation: Straight/Heterosexual Gender identity: Female Meds Allergies Allergy/AdvReac Type Severity Reaction Status Date / Time morphine [MORPHINE] Allergy Intermediate PALPITATIONS, Verified 04/23/24 06:24 tachicardia quetiapine [Seroquel] Allergy Intermediate Aggitation Verified 04/23/24 06:24 orphenadrine [ORPHENADRINE] AdvReac Intermediate RAPID Verified 04/23/24 06:24 HEART RATE Home Medications ?Medication ?Instructions ?Recorded ?Confirmed ?Last Taken ?Type aripiprazole 10 mg tablet 10 mg PO DAILY 01/23/24 04/23/24 Unknown History ferrous sulfate 325 mg (65 mg 325 mg PO DAILY 01/23/24 04/23/24 Unknown History iron) tablet,delayed release trazodone 100 mg tablet 300 mg PO BEDTIME 01/23/24 04/23/24 Unknown History venlafaxine 150 mg 300 mg PO QAM 01/23/24 04/23/24 Unknown History capsule,extended release 24 hr Exam Airway Mallampati Class: II (small mouth opening ) TM Dist: >3cm Neck ROM: Full Heart: rrr Lungs: cta Assessment and Plan Assessment Anesthesia Assessment: Anesthesia Plan Discussed Final Anesthetic Review NPO: Yes ASA Class: II Final Preanesthetic Review: No Changes in Pt Med Stat, Meds/Allgs Chart Reviewed and Consent Obtained/Reviewed Patient Risk: Low Procedure Risk: Low Anesthetic Plan Anesthetic Plan: MAC: Disposition: Standard PACU
[2024-04-21 12:35] VITALS: BMI 35.5
[2024-04-23 06:21] VITALS: BMI 33.9
[2024-04-23 06:42] VITALS: BP 128/85; PULSE 66; RESP 16; TEMP 36.1; O2SAT 96
[2024-04-23 06:44] LABS: Glucose, Whole Blood 107 mg/dL (60-115)
[2024-04-23] MEDS: Lactated Ringers 1,000 ML 100 ML IVCONT (06:51)
--- NOTE | 2024-04-23 07:26 | MHC.SHP ---
Pre-Procedural Eval Section A - 24 Hr Update-Section A only Date of Service: 04/23/24 The patient is an INPATIENT: No Changes since office visit: Yes Patient answered all questions The patient has been examined within 24 hours of the surgical procedure. The History & Physical has been completed within 30 days and I have reviewed it.: No Section B - Complete if H&P > 30 days Chief Complaint: Other intervertebral disc degeneration, lumbar Details of Present Illness: postlaminectomy syndrome, radiculopathy lumbar Relevant Family History (Specify if Yes): No Relevant Social History: None Present Medications: see Short Stay Collaborative assessment Medical History: Significant History History of Previous Operations: Relevant previous surgery/procedure and date(s) Allergies: Allergies Allergy/AdvReac Type Severity Reaction Status Date / Time morphine [MORPHINE] Allergy Intermediate PALPITATIONS, Verified 04/23/24 06:24 tachicardia quetiapine [Seroquel] Allergy Intermediate Aggitation Verified 04/23/24 06:24 orphenadrine [ORPHENADRINE] AdvReac Intermediate RAPID Verified 04/23/24 06:24 HEART RATE Review of Systems Sugical H&P ROS: Negative: Cardiovascular, Respiratory, Neurological, Psychiatric, Hem-Onc, Allergic/Immunologic, Gastrointestinal, Genitourinary, Musculoskeletal, Integumentary, Endocrine and Eyes/Ears/Nose/Throat and Yes, Specify: Constitution (trivial obesity) Exam Surgical H&P Exam: Normal: HEENT, Normal: Heart, Normal: Lungs, Normal: Extremities, Normal: Abdomen, Normal: Skin and Normal: Neurological Plan Diagnosis/Plan: Unchanged I have reviewed the history and physical and performed a pertinent physical examination on my patient. No changes have occurred unless specified. Time Spent With Patient Time: Total time managing care of this patient today ____ minutes.
[2024-04-23 08:03] VITALS: BP 120/71; PULSE 73; RESP 16; TEMP 36.7; O2SAT 94
[2024-04-23 08:08] VITALS: BP 132/74; PULSE 72; RESP 16; O2SAT 94
--- NOTE | 2024-04-23 08:10 | PM.OP ---
Brief Operative Note Date of Service: 04/23/24 Pre-op diagnosis: Postlaminectomy syndrome, radiculopathy lumbar. Post-op diagnosis: same Procedure: Caudal epidural steroid injection with catheter. Implants: None Surgeon: Joao Valentine MD Anesthesia: MAC Was an Technical Support Intern used for this Procedure?: No Estimated blood loss (mL): 0 Condition: stable Disposition: PACU
--- NOTE | 2024-04-23 08:11 | W.PM.OPN ---
Operative Note Operative Note Date of Service: 04/23/24 Narrative: caudal epidural steroid injection with catheter. Informed consent was thoroughly explained to the patient before the procedure. The patient came to the operating room. She was positioned prone on operating table with a pillow under her abdomen. Time-out was performed delineating correct site and side of the procedure, nature of the injection, name and date of of the patient. [employer] monitors were applied and patient was moderately to deeply sedated. The lower back of the patient was prepped with ChloraPrep and draped with sterile utility towels. C-arm was brought over the operating field and sq picture of Sacral bone was demonstrated on the screen. the sacral hiatus was chosen the side of the injection. 3 cm below the level of the sacral hiatus on AP view injection of the local anesthetic lidocaine 2% was performed forming skin wheal. After that 18 gauge 10 cm Touhy needle was inserted through the skin and advanced to were the sacral hiatus on anterior posterior and lateral views. When tip of the needle was demonstrated inside the caudal canal on lateral view injection of the contrast was performed demonstrating epidurogram. After that 22 gauge epidural catheter was inserted through the needle and advanced cranially until resistance was met. Injection of the contrast into the epidural catheter showed spread of the contrast in S1-S2 area. After that 30 cc of the preservative-free normal saline was performed into the catheter. After that 4 cc of lidocaine 2% mixed with Kenalog 30 mg was injected into the epidural catheter. Upon completion of the injection epidural catheter and epidural needle were removed en-mass, the tip of the catheter was intact. The patient tolerated procedure well. She was taken outside of the operating room to recovery room where she recovered uneventfully.
[2024-04-23 08:13] VITALS: BP 126/66; PULSE 72; RESP 16; O2SAT 94
[2024-04-23 08:18] VITALS: BP 124/69; PULSE 67; RESP 16; TEMP 36.1; O2SAT 97
--- NOTE | 2024-04-23 08:18 | W.PM.OPN ---
Operative Note Operative Note Date of Service: 04/23/24
[2024-04-23 08:33] VITALS: BP 119/69; PULSE 66; RESP 16; TEMP 36.1; O2SAT 97
== END 2024-04-23 09:00 | disposition home or self-care (01) ==
PROVIDERS: PCP Internal Medicine; Visit Provider Anesthesiology
PROC: 3E0R3GC Introduction of Other Therapeutic Substance into Spinal Canal, Percutaneous Approach (ICD-10-PCS; CPT 62322; principal; 2024-04-23 07:30)
DX: M51.360 Other intervertebral disc degeneration, lumbar region with discogenic back pain only (principal); M96.1 Postlaminectomy syndrome, not elsewhere classified; M54.16 Radiculopathy, lumbar region; G89.4 Chronic pain syndrome; R20.0 Anesthesia of skin; M79.7 Fibromyalgia; I10 Essential (primary) hypertension; F32.A Depression, unspecified; F41.9 Anxiety disorder, unspecified; E13.9 Other specified diabetes mellitus without complications; Z79.84 Long term (current) use of oral hypoglycemic drugs; Z79.891 Long term (current) use of opiate analgesic; Z99.89 Dependence on other enabling machines and devices; Z88.5 Allergy status to narcotic agent; Z88.8 Allergy status to other drugs, medicaments and biological substances; Z98.84 Bariatric surgery status; Z98.890 Other specified postprocedural states
CPT/HCPCS: 62323; 82947; J2003; J2250; J2704; J2795; J3010; J3301; Q9967

== ENCOUNTER → 2024-04-23 05:43 | Outpatient (BNV) | payer MEDICAID, SELFPAY | PROVIDERS: PCP Internal Medicine; Visit Provider Anesthesiology | DX: M96.1 Postlaminectomy syndrome, not elsewhere classified (principal) | CPT/HCPCS: 62323 ==

== ENCOUNTER 2024-04-26 13:03 | Outpatient (AMB) | payer MEDICAID, SELFPAY ==
--- NOTE | 2024-04-26 13:27 | A.OFFVIS_ITS ---
Intake Visit Reasons: urine dip Service Tech/Welder Required: Yes Service Tech/Welder Language: Pouring Crane Operator Services: Service Tech/Welder Present (in person) Service Tech/Welder Name: MILAGROS Enriquez Filter Cleaner: Filter Cleaner Present (Graciela MILAGROS Devine) Accompanied by: Self / Same As Patient Allergies morphine [MORPHINE] Allergy (Intermediate, Verified 04/26/24 13:27) PALPITATIONS, tachicardia quetiapine [Seroquel] Allergy (Intermediate, Verified 04/26/24 13:27) Aggitation orphenadrine [ORPHENADRINE] Adverse Reaction (Intermediate, Verified 04/26/24 13:27) RAPID HEART RATE HPI Comments Details: Presenting for repeat urine dip. Last visit urine dip was positive urine culture was negative. The patient is complaining of incontinence for the last 3 months. Ultrasound done, no report available yet [facility] Medical History Weakness Arthritis History of brain inflammation Protrusion of lumbar intervertebral disc Tinnitus Venous insufficiency Osteoarthritis Loss of hair History of headache Fibromyositis Fatigue Hyperlipidemia HTN (hypertension) Continuous opioid dependence Sinusitis Anemia Anxiety Diverticulosis Chronic idiopathic constipation Migraine Asthma Depression Diabetes 1.5, managed as type 2 Fibromyalgia Surgical History History of back surgery History of esophagogastroduodenoscopy (EGD) S/P panniculectomy Hx of hysterectomy Hx of oophorectomy Hx of bilateral breast reduction surgery H/O colonoscopy History of pubovaginal sling Gastric bypass status for obesity Family History Mother Colon cancer Social History Household Members: Spouse and Children Household Members Other:: lives alone Housing: House Are you a primary personal carer to a significant other at home: No Do you presently have visiting nurse 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) Alcohol intake: never Comment: IV infiltrated Patient Tobacco Use Status: Never used Tobacco Second Hand Smoke Exposure: No service: No Current occupational status: disabled Sexual orientation: Straight/Heterosexual Gender identity: Female Review of Systems Const All systems reviewed & are unremarkable except as noted in HPI and below Reports as per HPI and Reports no additional complaints GI Reports no additional complaints Reports no additional complaints Assessment & Plan Assessment & Plan (1) Microscopic hematuria: Code(s): R31.29 - Other microscopic hematuria Category: Medical Plan: Repeat urine dip showed no evidence of urine microscopic hematuria, the patient was reassured. All questions answered, the patient verbalized understanding (2) Urinary incontinence: Code(s): R32 - Unspecified urinary incontinence Category: Medical Plan: Discussed with the patient the different types of Urine incontinence, stress urinary incontinence, intrinsic sphincter deficiency, overactive bladder and its work up. We will refer to Urology. All questions answered, the patient verbalized understanding. (3) Pelvic pain: Code(s): R10.2 - Pelvic and perineal pain Category: Medical Plan: Explained to the patient the pelvic ultrasound report is not available yet, Instructions given the patient to schedule ultrasound follow-up appointment within 2 weeks. All questions answered, the patient verbalized understanding Orders: Referrals Urology Referral R32 - Unspecified urinary incontinence Coding Level of Care Code Est Pt Level 3 (22557) Diagnoses Microscopic hematuria R31.29 Urinary incontinence R32 Pelvic pain R10.2
== END 2024-04-26 13:32 | disposition home or self-care (01) ==
LOC: HO.HWS 13:03
PROVIDERS: PCP Internal Medicine; Visit Provider Obstetrics & Gynecology
DX: R31.29 Other microscopic hematuria (principal); R32 Unspecified urinary incontinence; R10.2 Pelvic and perineal pain
CPT/HCPCS: 99213

== ENCOUNTER → 2024-04-26 13:03 | Outpatient (BNVA) | payer MEDICAID, SELFPAY | PROVIDERS: PCP Internal Medicine; Visit Provider Obstetrics & Gynecology | DX: R31.29 Other microscopic hematuria (principal); R32 Unspecified urinary incontinence; R10.2 Pelvic and perineal pain | CPT/HCPCS: 99212 ==

== ENCOUNTER 2024-05-13 16:23 | Emergency (ER) | payer MEDICAID, SELFPAY ==
[2024-05-13 16:37] VITALS: BP 149/83; PULSE 77; RESP 19; TEMP 36.6; O2SAT 99; BMI 34.9
--- NOTE | 2024-05-13 16:44 | ED_ITS ---
HPI - General Adult General Chief complaint: General Medical Stated complaint: ?uti History of Present Illness HPI narrative: Patient left before completion of treatment by ED provider. Related Data Home Medications ?Medication ?Instructions ?Recorded ?Confirmed aripiprazole 10 mg tablet 10 mg PO DAILY 01/23/24 04/23/24 ferrous sulfate 325 mg (65 mg 325 mg PO DAILY 01/23/24 04/23/24 iron) tablet,delayed release trazodone 100 mg tablet 300 mg PO BEDTIME 01/23/24 04/23/24 venlafaxine 150 mg 300 mg PO QAM 01/23/24 04/23/24 capsule,extended release 24 hr Previous Rx's ?Medication ?Instructions ?Recorded clonazepam 1 mg tablet 1 mg PO BID 30 days #60 tabs 12/16/22 albuterol sulfate 90 mcg/actuation 1 inh inhalation QID PRN shortness 08/12/23 aerosol inhaler of breath or wheezing #6.7 grams gabapentin 300 mg capsule 300 mg PO DAILY #30 caps 08/12/23 gabapentin 600 mg tablet 600 mg PO BEDTIME #30 tabs 08/12/23 hydrochlorothiazide 50 mg tablet 50 mg PO DAILY #30 tabs 08/12/23 metformin 500 mg tablet,extended 500 mg PO BIDWM #60 tabs 08/12/23 release 24 hr polyethylene glycol 3350 17 gram 17 g PO DAILY #30 ea 08/12/23 oral powder packet sennosides 8.6 mg-docusate sodium 2 tab PO BID #120 tabs 08/12/23 50 mg tablet (Senna Plus) acetaminophen 500 mg capsule 1,000 mg (2 x 500 mg) PO TID PRN 09/25/23 pain #90 caps methocarbamol 750 mg tablet 750 mg PO TID moderate pain & 09/25/23 muscle spasms #30 tabs lidocaine 5 % topical patch 1 patch topical DAILY #30 ea 11/13/23 ketorolac 10 mg tablet 10 mg PO Q8H 3 days #9 tabs 03/01/24 lidocaine 5 % topical patch 1 patch topical DAILY #30 ea 03/01/24 (Lidoderm) Allergies Allergy/AdvReac Type Severity Reaction Status Date / Time morphine [MORPHINE] Allergy Intermediate PALPITATIONS, Verified 05/13/24 16:39 tachicardia quetiapine [Seroquel] Allergy Intermediate Aggitation Verified 05/13/24 16:39 orphenadrine [ORPHENADRINE] AdvReac Intermediate RAPID Verified 05/13/24 16:39 HEART RATE [facility] Past Medical History Medical History Weakness Arthritis History of brain inflammation Protrusion of lumbar intervertebral disc Tinnitus Venous insufficiency Osteoarthritis Loss of hair History of headache Fibromyositis Fatigue Hyperlipidemia HTN (hypertension) Continuous opioid dependence Sinusitis Anemia Anxiety Diverticulosis Chronic idiopathic constipation Migraine Asthma Depression Diabetes 1.5, managed as type 2 Fibromyalgia Surgical History History of back surgery History of esophagogastroduodenoscopy (EGD) S/P panniculectomy Hx of hysterectomy Hx of oophorectomy Hx of bilateral breast reduction surgery H/O colonoscopy History of pubovaginal sling Gastric bypass status for obesity Family History Family History Mother Colon cancer Social History Social History Household Members: Spouse and Children Household Members Other:: lives alone Housing: House Are you a primary insurance healthcare consultant to a significant other at home: No Do you 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) Alcohol intake: never Comment: IV infiltrated Patient Tobacco Use Status: Never used Tobacco Second Hand Smoke Exposure: No Advance Directives: No Advance Directives Information Provided: No Do you have a plan to hurt others: No Plan service: No Current occupational status: disabled Sexual orientation: Straight/Heterosexual Gender identity: Female Physical Exam ED Vital Signs: Vital Signs - 24 hr 05/13/24 16:37 Temperature 98 F Pulse Rate 77 Respiratory Rate 19 Blood Pressure 149/83 H Pulse Oximetry 99 Oxygen Delivery Method Room Air BMI result Body Mass Index 34.9 Course Course Course Narrative: RME: 64 yold female presents to the ED for low back pain, increase urinary frequency, and headache for one month. Patient denies any slurred speech, facial droop, paralysis of extremities, nausea, or vomiting. NIH score is 0. Labs UA ordered. Medical Decision Making Lab Data 05/13/24 17:28 05/13/24 17:28 Labs: Lab Results 05/13/24 Range/Units 17:28 WBC 10.2 (4.8-10.8) X10*3/uL RBC 4.64 (4.20-5.50) X10*6/uL Hgb 11.3 L (12.0-16.0) g/dl Hct 36.1 L (37.0-47.0) % MCV 77.8 L (80.0-98.0) fL MCH 24.4 L (27.0-33.0) pg MCHC 31.3 (31.0-35.0) g/dl RDW 18.3 H (11.0-16.0) % Plt Count 294 (160-400) X10*3/uL MPV 9.8 (9.4-12.3) fL Immature Gran % (Auto) 0.6 H (0.0-0.4) % Neut % (Auto) 67.0 (45-73) % Lymph % (Auto) 23.3 (20-40) % [place] % (Auto) 7.2 (2-11) % Eos % (Auto) 1.7 (0-4) % Baso % (Auto) 0.2 (0-2) % Lymph # (Auto) 2.4 (1.2-4.9) X10*3/uL [place] # (Auto) 0.7 (0.1-1.2) X10*3/uL Eos # (Auto) 0.2 (0.0-0.4) X10*3/uL Baso # (Auto) 0.0 (0.0-0.2) X10*3/uL Abs Immat Gran (auto) 0.06 H (0.00-0.03) X10*3/uL Absolute Neuts (auto) 6.8 (2.0-8.3) x10*3/uL Absolute Nucleated RBC 0.000 (0.0-0.012) X10*3/uL Nucleated RBC % (auto) 0.0 (0.0-0.2) /100WBC Sodium 138 (135-145) mmol/L Potassium 4.4 (3.3-5.1) mmol/L Chloride 104 (96-108) mmol/L Carbon Dioxide 26 (22-29) mmol/L Anion Gap 12 (12-20) BUN 21 H (9-16) mg/dL Creatinine 1.01 (0.5-1.4) mg/dL Estim Creat Clear Calc 65.9 Estimated GFR 56 Random Glucose 84 (60-115) mg/dL Calcium 8.7 (8.4-10.2) mg/dL Total Bilirubin 0.1 (0.0-1.0) mg/dL Direct Bilirubin < 0.2 (0.0-0.5) mg/dL AST 22 (5-31) U/L ALT 13 (0-31) U/L Alkaline Phosphatase 84 (39-117) U/L Total Protein 7.5 (6.5-8.0) g/dL Albumin 3.9 (3.5-5.0) g/dL Lipase 34 (8-78) U/L Urine Color Yellow Urine Appearance Clear Urine pH 5.0 (5.0-9.0) Ur Specific [place] >= 1.030 H (1.005-1.025) Urine Protein Negative (Neg-Trace) mg/dL Urine Glucose (UA) Negative (Negative) mg/dL Urine Ketones Trace (Negative) mg/dL Urine Blood Negative (Negative) Urine Nitrite Negative (Negative) Ur Leukocyte Esterase Trace H (Negative) Urine RBC 0-2 (0-2) /HPF Urine WBC 6-10 H (0-5) /HPF Ur Squamous Epith Cells 6-10 (0-2) /HPF Urine Bacteria Trace (None Seen) Hyaline Casts 0-2 (0-2) /LPF Discharge Plan Discharge Clinical Impression: Low back pain with left-sided sciatica Patient Disposition: Left W/O Completing Treatment Prescriptions: No Action clonazepam 1 mg tablet 1 mg PO BID 30 Days Qty: 60 0RF albuterol sulfate 90 mcg/actuation HFA aerosol inhaler 1 inh inhalation QID PRN (Reason: shortness of breath or wheezing) Qty: 6.7 0RF gabapentin 600 mg tablet 600 mg PO BEDTIME Qty: 30 0RF gabapentin 300 mg Capsule 300 mg PO DAILY Qty: 30 0RF hydrochlorothiazide 50 mg tablet 50 mg PO DAILY Qty: 30 0RF polyethylene glycol 3350 17 gram powder in packet 17 g PO DAILY Qty: 30 0RF sennosides-docusate sodium [Senna Plus] 8.6-50 mg Tablet 2 tab PO BID Qty: 120 0RF metformin 500 mg Tablet Extended Release 24 Hr 500 mg PO BIDWM Qty: 60 0RF lidocaine 5 % adhesive patch,medicated 1 patch topical DAILY Qty: 30 0RF Rx Instructions: leave on most painful area for up to 12 hrs ketorolac 10 mg tablet 10 mg PO Q8H 3 Days Qty: 9 0RF lidocaine [Lidoderm] 5 % adhesive patch,medicated 1 patch topical DAILY Qty: 30 0RF Rx Instructions: leave on most painful area for up to 12 hrs methocarbamol 750 mg tablet 750 mg PO TID Qty: 30 0RF acetaminophen 500 mg capsule 1,000 mg PO TID PRN (Reason: pain) Qty: 90 0RF aripiprazole 10 mg tablet 10 mg PO DAILY venlafaxine 150 mg capsule,extended release 24hr 300 mg PO QAM trazodone 100 mg tablet 300 mg PO BEDTIME ferrous sulfate 325 mg (65 mg iron) tablet,delayed release (DR/EC) 325 mg PO DAILY Discharge Date/Time: 05/13/24 20:56
[2024-05-13 17:33] LABS: MANUAL DIFF FLAG NO
[2024-05-13 17:34] LABS: Basophils Percent Auto 0.2 % (0-2); Eosinophils Absolute Auto 0.2 X10*3/uL (0.0-0.4); Eosinophils Percent Auto 1.7 % (0-4); Hematocrit 36.1 % (37.0-47.0); Hemoglobin 11.3 g/dl (12.0-16.0); Imm Gran Abs Auto 0.06 X10*3/uL (0.00-0.03); Imm Gran Pct Auto 0.6 % (0.0-0.4); Lymphocytes Absolute Auto 2.4 X10*3/uL (1.2-4.9); Lymphocytes Percent Auto 23.3 % (20-40); Mean Corpuscular HGB Conc 31.3 g/dl (31.0-35.0); Mean Corpuscular Hemoglobin 24.4 pg (27.0-33.0); Mean Corpuscular Volume 77.8 fL (80.0-98.0); Mean Platelet Volume 9.8 fL (9.4-12.3); Monocytes Absolute Auto 0.7 X10*3/uL (0.1-1.2); Monocytes Percent Auto 7.2 % (2-11); Neutrophils Absolute Auto 6.8 x10*3/uL (2.0-8.3); Platelet Count 294 X10*3/uL (160-400); Red Blood Count 4.64 X10*6/uL (4.20-5.50); Red Cell Distribution Width 18.3 % (11.0-16.0); White Blood Count 10.2 X10*3/uL (4.8-10.8)
[2024-05-13 17:36] LABS: Appearance Urine Clear; Color Urine Yellow; Glucose Urine UA Negative (Negative); Leukocyte Esterase Urine Trace (Negative); Nitrite Urine Negative (Negative); Specific Gravity - Urine >= 1.030 (1.005-1.025); UMIC TRIGGER UACC YES; Urine Blood Negative (Negative); Urine Ketones Trace mg/dL (Negative); Urine Protein Negative (Neg-Trace)
[2024-05-13 17:49] LABS: Alanine Aminotransferase 13 U/L (0-31); Albumin Level 3.9 g/dL (3.5-5.0); Alkaline Phosphatase 84 U/L (39-117); Anion Gap 12 (12-20); Aspartate Amino Transferase 22 U/L (5-31); Bilirubin Direct < 0.2 mg/dL (0.0-0.5); Bilirubin Total 0.1 mg/dL (0.0-1.0); Blood Urea Nitrogen 21 mg/dL (9-16); Calcium 8.7 mg/dL (8.4-10.2); Carbon Dioxide 26 mmol/L (22-29); Chloride 104 mmol/L (96-108); Creatinine Clr Calc Pharmacy 65.9; Estimated Glomerular Filt Rate 56; Glucose Random 84 mg/dL (60-115); Lipase 34 U/L (8-78); Potassium 4.4 mmol/L (3.3-5.1); Sodium 138 mmol/L (135-145); Total Protein 7.5 g/dL (6.5-8.0)
[2024-05-13 18:14] LABS: Bacteria Urine Trace (None Seen); Hyaline Casts Urine 0-2 /LPF (0-2); RBC Urine 0-2 /HPF (0-2); UACC Culture Trigger YES
--- NOTE | 2024-05-13 20:55 | PC.NURSE ---
charge gang weigher called patient multiple times without answer since 1899
== END 2024-05-13 20:56 | disposition left against medical advice (07) ==
PROVIDERS: Emergency Provider Emergency Medicine; PCP Internal Medicine
DX: M54.42 Lumbago with sciatica, left side (principal); Z79.899 Other long term (current) drug therapy
CPT/HCPCS: 36415; 80048; 80076; 81001; 83690; 85025; 87086; 99282; 99283

== ENCOUNTER 2024-05-28 10:11 | Outpatient (REF) | payer MEDICAID, SELFPAY ==
--- NOTE | ~2024-05-28 | XR_ITS ---
EXAMINATION: XR FOOT 3 OR MORE VIEWS LEFT HISTORY: M79.672 - Pain in left foot COMPARISON: Comparison is made with the prior examination dated 10/01/2022. FINDINGS: Three views of the left foot are submitted. The bones are osteopenic. There is no fracture or dislocation. There is mild narrowing of the DIP and PIP joints. There is a small plantar calcaneal spur. The soft tissues are unremarkable. XR/XR foot LT min 3V IMPRESSION: Mild narrowing of the DIP and PIP joints. Small plantar calcaneal spur. Electronically signed by: Fracisco Dockery MD 05/31/2024 03:32 PM [facility]NE
== END 2024-05-28 10:12 | disposition home or self-care (01) ==
LOC: HO.XRAY 10:11
PROVIDERS: PCP Internal Medicine; Visit Provider Nurse Practitioner Family
DX: M79.672 Pain in left foot (principal); M96.1 Postlaminectomy syndrome, not elsewhere classified; R20.0 Anesthesia of skin; R20.2 Paresthesia of skin; M54.16 Radiculopathy, lumbar region; Z98.1 Arthrodesis status; M54.42 Lumbago with sciatica, left side; M51.369 Other intervertebral disc degeneration, lumbar region without mention of lumbar back pain or lower extremity pain
CPT/HCPCS: 73630; 99212

== ENCOUNTER 2024-05-28 10:11 | Outpatient (AMB) | payer MEDICAID, SELFPAY ==
--- NOTE | 2024-05-28 10:16 | MHC.OFFVIS ---
Vital Signs 05/28/24 10:19 Height 5 ft 5 in Weight 218 lb 4 oz BMI 36.3 BP 145/73 H Blood Pressure Location Lt brachial Position Sitting Pulse 79 Pulse Source Pulse Oximeter Pulse Oximetry (%) 97 Oxygen Delivery Method Room Air Intake Visit Reasons: S/p Caudal KEVIN w/ Catheter 04/23/24 Intake Note: Pain 9/10 Mri Technologist Required: Yes Mri Technologist Language: Dental Amalgam Processor Name: Nasreen Accompanied by: Self / Same As Patient Allergies morphine [MORPHINE] Allergy (Intermediate, Verified 05/28/24 10:20) PALPITATIONS, tachicardia quetiapine [Seroquel] Allergy (Intermediate, Verified 05/28/24 10:20) Aggitation orphenadrine [ORPHENADRINE] Adverse Reaction (Intermediate, Verified 05/28/24 10:20) RAPID HEART RATE HPI Comments Details: Patient presents today for follow-up to assess response to Caudal KEVIN with catheter on 04/23/[address] Valentine. Patient reports % pain relief since procedure lower back and partial lower extremity with improvement daily activities, mobility and sleep. She continues to report radicular symptoms in the left side extending from her left buttock into her collateral cuff significant foot pain with numbness and tingling and swelling in the ankle and pedal areas. Denies any recent trauma, injury or falls. EMR review noted ER visit on 05/13/24 for UTI, low back pain and headache however patient left without treatment. Pain in the left foot is rated 9/10 and back pain is 0/10. Denies any recent cough, cold, infection, fever, headache, bladder or bowel dysfunction, saddle anesthesia or other significant changes in medical history since last office visit. PRIOR: Patient presents today for follow-up for chronic low back pain. She was last seen in our office in 2022 and underwent L4-5 transkambin lumbar interbody fusion on 07/22/[address] Leon. Patient was seen by Neurosurgeon in September and was referred for physical therapy. Patient reports she had to stopped PT on 12/22/23 due to increased pain. She reports low back pain radiating to her left buttock and into left lower extremity. Patient reports left toes numbness since surgery with associated swelling. She has not followed up with Dr. Leon since September. Reports increased low back pain and left knee pain with walking, climbing stairs, bending or changing positions. She has been managing symptoms with Tylenol, lidocaine patches, methocarbamol and gabapentin with continued symptoms. Denies any fever or chills, weight loss, weakness, bladder or bowel dysfunction or saddle anesthesia. PRIOR 02/27/23: Patient presents today to assess response to Bilateral L5-S1 TFESI on 01/28/[address] Valentine. Patient reports 0% pain relief since injections without any improvement in her functioning, mobility or better sleep. She reports worsening low back pain with radiation to both of her legs (worse on the right) with weakness, numbness and tingling. Pain spreads across her lumbar and sacral regions. Bending, lifting and walking aggravates her pain. She continues to take gabapentin, lidocaine patches, Tylenol, and ice/heat therapy with minimal benefit. Resting and repositioning also temporarily alleviate her symptoms. Patient reports it has been painful to look after herself. Pain prevents her from doing lifting, vacuuming, standing to cook meals or wash dishes or other usual homeking chores. She is interested to proceed with Neurosurgical evaluation. We will update her lumbar spine MRIs. Patient is not interested to proceed with lumbar medial branch blocks at this time due to significant pain. Denies any fever, weight loss, abdominal or groin pain, bladder or bowel dysfunction or saddle anesthesia. Past Procedures: 01/28/23: Bilateral L5-S1 TFESI-0% pain relief PRIOR: Patient is a pleasant 62 years old female with prior history of fibromyalgia, lumbar degenerative disc disease, history of ACDF at C6-C7, chronic pain syndrome, osteoarthritis, depression, anxiety, migraine, presents today with widespread body pain, lower back, bilateral legs and hands pain. Her main concern is low back pain with radiation to both legs and feet posteriorly with numbness and tingling but no weakness. Denies any recent trauma, injury or falls. She has been followed by [facility] in the past for injections. Pain affects her daily activities, functioning, mobility, sleep, mood and quality of life. Pain is worse in the morning with intensity rated at 8-10/10 and average pain in the past 2 weeks rated at 8/10. Her diabetes is well managed with most recent A1C 5.7. She lives alone. Denies any fever, weight loss, abdominal or groin pain, foot drop, bladder or bowel incontinence or saddle anesthesia. Location Lower back that radiates down bilateral legs Duration Chronic pain syndrome, multiple pain generators, many years Characteristics of symptom or complaint Aching, sharp, pressure, stabbing, numbness and tingling, shooting Aggravating or associated factors Prolonged walking, sitting, standing, bending, stairs, changing positions Relieving factors Oxycodone, activity modifications, goes to ER frequently for pain Treatment PT- made pain worse, shoulder cortisone injections PFSH Medical History Weakness Arthritis History of brain inflammation Protrusion of lumbar intervertebral disc Tinnitus Venous insufficiency Osteoarthritis Loss of hair History of headache Fibromyositis Fatigue Hyperlipidemia HTN (hypertension) Continuous opioid dependence Sinusitis Anemia Anxiety Diverticulosis Chronic idiopathic constipation Migraine Asthma Depression Diabetes 1.5, managed as type 2 Fibromyalgia Surgical History History of back surgery History of esophagogastroduodenoscopy (EGD) S/P panniculectomy Hx of hysterectomy Hx of oophorectomy Hx of bilateral breast reduction surgery H/O colonoscopy History of pubovaginal sling Gastric bypass status for obesity Family History Mother Colon cancer Social History Household Members: Spouse and Children Household Members Other:: lives alone Housing: House Are you a primary memory care program resident to a significant other at home: No Do you presently have visiting nurse or other home services: Yes ([employer]) Alcohol intake: never Comment: IV infiltrated Patient Tobacco Use Status: Never used Tobacco Second Hand Smoke Exposure: No service: No Current occupational status: disabled Sexual orientation: Straight/Heterosexual Gender identity: Female Review of Systems Const All systems reviewed & are unremarkable except as noted in HPI and below Physical Exam Vital Signs: Last Vital Signs Pulse 79 05/28/24 10:19 BP 145/73 H 05/28/24 10:19 Pulse Ox 97 05/28/24 10:19 Oxygen Delivery Method Room Air 05/28/24 10:19 BMI result Body Mass Index 36.3 General: Appears afebrile. Alert and oriented. Mood and affect appropriate. Follows and participates in conversation appropriately. Respiratory effort is unlabored. No cough. Able to transition from sit to stand unassisted. Mildly antalgic gait. Uses cane with ambulation. General: Yes no CVA tenderness Back/Spine/Pelvis Other: Lumbar flexion and extension reproduce mild pain. Well healed lumbar spine scars. Straight leg rise with dorsiflexion positive on the left. TTP over paraspinals from L4-S1. +1 patellar and diminished achilles reflexes bilaterally. +Moderate TTP in projection of SIJ areas. +Tarun?s, Stinchfield, Pelvic Compression and Gaenslen?s test positive on the left. Multiple tender points 16/16 upper and lower extremities. Back: no CVA tenderness Cervical Spine: cervical muscular tenderness, pain with cervical ROM, Cervical spine scars present and No Cervical spine tenderness Thoracic/Lumbar Spine: thoracic and lumbar spine normal to inspection, Thoracic/lumbar spine scar(s), Lasegue's sign positive on the left and localized, paraspinal muscle tenderness, thoraco-lumbar ROM limited, No thoracic spinal tenderness, lumbar spinal tenderness (L4-S1) and straight leg raise positive bilateral at 60 degrees Pelvis: buttock tenderness on the left Sacroiliac joints: bilaterally (left>right) tender to palpation Extrem General: Yes capillary refill normal, Yes no calf tenderness, No clubbing, No cyanosis and Yes pedal edema (left foot ankle and pedal nonpitting +1 edema) Left lower extremity: foot Details: normal capillary refill, normal to inspection, tenderness Location: of the dorsal foot, toes with normal ROM and edema Location: diffusely; no unusual warmth, no ecchymosis and no crepitus Results Reviewed Results Reviewed: MR LUMBAR SPINE WITHOUT AND WITH CONTRAST 02/28/24 CLINICAL INFORMATION: Arthrodesis status COMPARISON: MRI lumbar spine on 04/04/2023 TECHNIQUE: MRI of the lumbar spine was obtained using routine sequences with and without contrast. Intravenous contrast: Gadavist 10 mL FINDINGS: Mild retrolisthesis at L5-S1. Sequelae of posterior spinal fusion at L5/S1. Otherwise, no acute bone marrow abnormality or suspicious enhancement. The vertebral body heights are otherwise preserved. Multilevel disc desiccation without significant disc height loss. Multilevel endplate osteophytosis. The visualized spinal cord is normal in caliber. No abnormal cord signal or enhancement. The conus medullaris terminates at L1-2. T12-L1: Diffuse disc bulge and bilateral facet arthrosis. No significant spinal canal or neural foraminal narrowing. L1-2: Diffuse disc bulge and bilateral facet arthrosis. No significant spinal canal or neural foraminal narrowing. L2-3: Bilateral facet arthrosis. No significant spinal canal or neural foraminal narrowing. L3-4: Shallow disc bulge. No significant spinal canal or neural foraminal narrowing. L4-5: Diffuse disc bulge with superimposed central disc protrusion. Annular fissure, ligamentum flavum hypertrophy, and bilateral facet arthrosis. No significant spinal canal or neural foraminal narrowing however the disc abuts the exiting L4 nerve roots bilaterally, unchanged. L5-S1: Postsurgical changes. There is a residual central/left paracentral disc protrusion. No significant residual spinal canal stenosis. The left neural foramen is patent. Evaluation of the right neural foramen is significantly obscured by artifact however there is suggestion of persistent mild neural foraminal narrowing. The paravertebral soft tissues are unremarkable. IMPRESSION: -Postsurgical changes from posterior spinal fusion at L5-S1. There is a residual central/left paracentral disc protrusion at this level without significant residual spinal canal stenosis. Suggestion of persistent mild right neural foraminal narrowing that evaluation is limited by artifact. -At L4-L5, there is a disc bulge with superimposed central disc protrusion which abuts the exiting L4 nerve roots bilaterally, unchanged compared to MRI from 04/04/2023. Assessment & Plan Assessment & Plan (1) Left foot pain: Code(s): M79.672 - Pain in left foot Category: Medical (2) Post laminectomy syndrome: Code(s): M96.1 - Postlaminectomy syndrome, not elsewhere classified Category: Medical (3) Numbness and tingling of left lower extremity: Code(s): R20.0 - Anesthesia of skin; R20.2 - Paresthesia of skin Category: Medical (4) Lumbar radiculopathy: Code(s): M54.16 - Radiculopathy, lumbar region Category: Medical (5) S/P lumbar fusion: Code(s): Z98.1 - Arthrodesis status Category: Surgical (6) Low back pain with left-sided sciatica: Code(s): M54.42 - Lumbago with sciatica, left side Category: Medical (7) Lumbar degenerative disc disease: Code(s): M51.36 - Other intervertebral disc degeneration, lumbar region Category: Medical Plan Patient 1 month status post caudal KEVIN with catheter with significant improvement in her back symptoms but continues to experience radicular symptoms in the left lower extremity and significant left foot pain with swelling. We will proceed with left foot x-ray and neurodiagnostic studies to further evaluate this. Patient reports left foot numbness since L5-S1 fusion in July 2023. Short script for oxycodone sent today for severe pain only. Continue to monitor for any side effects. All questions and concerns have been answered and patient agreed with the treatment plan. Follow-up for xray/EMG results and sooner as needed. Orders: Orders XR foot LT min 3V Today M79.672 - Pain in left foot NE nerve conduction velocity Today M54.16 - Radiculopathy, lumbar region, M96.1 - Postlaminectomy syndrome, not elsewhere classified, R20.0 - Anesthesia of skin, R20.2 - Paresthesia of skin NE electromyogram (EMG) Today M79.672 - Pain in left foot, M96.1 - Postlaminectomy syndrome, not elsewhere classified, R20.0 - Anesthesia of skin, R20.2 - Paresthesia of skin Medications: New oxycodone Partial Fill upon patient request. 5 mg PO Q8H 3 days PRN 20 tabs 0RF pain M54.16 - Radiculopathy, lumbar region, M79.672 - Pain in left foot, M96.1 - Postlaminectomy syndrome, not elsewhere classified Coding Level of Care Code Est Pt Level 4 (70894) Complex EM visit Add On G2211 Diagnoses Left foot pain M79.672 Post laminectomy syndrome M96.1 Numbness and tingling of left lower extremity R20.0; R20.2 Lumbar radiculopathy M54.16 S/P lumbar fusion Z98.1 Low back pain with left-sided sciatica M54.42 Lumbar degenerative disc disease M51.36
[2024-05-28 10:19] VITALS: BP 145/73; PULSE 79; O2SAT 97; BMI 36.3
== END 2024-05-28 10:31 | disposition home or self-care (01) ==
PROVIDERS: PCP Internal Medicine; Visit Provider Nurse Practitioner Family
DX: M79.672 Pain in left foot (principal); M96.1 Postlaminectomy syndrome, not elsewhere classified; R20.0 Anesthesia of skin; R20.2 Paresthesia of skin; M54.16 Radiculopathy, lumbar region; Z98.1 Arthrodesis status; M54.42 Lumbago with sciatica, left side; M51.369 Other intervertebral disc degeneration, lumbar region without mention of lumbar back pain or lower extremity pain
CPT/HCPCS: 99214

== ENCOUNTER → 2024-05-28 11:00 | Outpatient (BNV) | payer MEDICAID, SELFPAY | PROVIDERS: PCP Internal Medicine; Visit Provider Radiology Diagnostic Radiology | DX: M77.32 Calcaneal spur, left foot (principal) | CPT/HCPCS: 73630 ==

== ENCOUNTER 2024-07-01 14:28 | Emergency (ER) | payer MEDICAID, SELFPAY ==
--- NOTE | ~2024-07-01 | XR_ITS ---
EXAMINATION: XR CHEST CLINICAL INFORMATION: cough x 2 weeks COMPARISON: None available. TECHNIQUE: 2 views of the chest were obtained. FINDINGS: The cardiac, hilar, and mediastinal contours are normal. The lungs demonstrating mild linear atelectasis or scarring right midlung. Lungs otherwise clear. There is no pneumothorax or pleural effusion. There is no focal osseous or soft tissue abnormality. Cervical fusion device noted. Degenerative changes in the spine left greater than right shoulder joints. XR/XR chest 2V IMPRESSION: No active disease. Electronically signed by: Kory Johnson MD 07/01/2024 04:15 PM EST
[2024-07-01 14:34] VITALS: BP 167/86; PULSE 79; O2SAT 98
[2024-07-01 15:25] VITALS: BP 149/74; PULSE 83; RESP 18; TEMP 36.1; O2SAT 93; BMI 35.1
--- NOTE | 2024-07-01 15:27 | ED_ITS ---
HPI - General Adult General Chief complaint: Upper Respiratory Symptoms Stated complaint: FLU-LIKE X 2 WEEKS Related Data Home Medications ?Medication ?Instructions ?Recorded ?Confirmed aripiprazole 10 mg tablet 10 mg PO DAILY 01/23/24 04/23/24 ferrous sulfate 325 mg (65 mg 325 mg PO DAILY 01/23/24 04/23/24 iron) tablet,delayed release trazodone 100 mg tablet 300 mg PO BEDTIME 01/23/24 04/23/24 venlafaxine 150 mg 300 mg PO QAM 01/23/24 04/23/24 capsule,extended release 24 hr semaglutide (weight loss) 0.25 0.25 mg subcut QWEEK 05/28/24 mg/0.5 mL subcutaneous pen injector (Charles) Previous Rx's ?Medication ?Instructions ?Recorded clonazepam 1 mg tablet 1 mg PO BID 30 days #60 tabs 12/16/22 albuterol sulfate 90 mcg/actuation 1 inh inhalation QID PRN shortness 08/12/23 aerosol inhaler of breath or wheezing #6.7 grams gabapentin 300 mg capsule 300 mg PO DAILY #30 caps 08/12/23 gabapentin 600 mg tablet 600 mg PO BEDTIME #30 tabs 08/12/23 hydrochlorothiazide 50 mg tablet 50 mg PO DAILY #30 tabs 08/12/23 metformin 500 mg tablet,extended 500 mg PO BIDWM #60 tabs 08/12/23 release 24 hr polyethylene glycol 3350 17 gram 17 g PO DAILY #30 ea 08/12/23 oral powder packet sennosides 8.6 mg-docusate sodium 2 tab PO BID #120 tabs 08/12/23 50 mg tablet (Senna Plus) acetaminophen 500 mg capsule 1,000 mg (2 x 500 mg) PO TID PRN 09/25/23 pain #90 caps methocarbamol 750 mg tablet 750 mg PO TID moderate pain & 09/25/23 muscle spasms #30 tabs lidocaine 5 % topical patch 1 patch topical DAILY #30 ea 11/13/23 ketorolac 10 mg tablet 10 mg PO Q8H 3 days #9 tabs 03/01/24 lidocaine 5 % topical patch 1 patch topical DAILY #30 ea 03/01/24 (Lidoderm) oxycodone 5 mg tablet 5 mg PO Q8H PRN pain 3 days #20 05/28/24 tabs Allergies Allergy/AdvReac Type Severity Reaction Status Date / Time morphine [MORPHINE] Allergy Intermediate PALPITATIONS, Verified 07/01/24 15:30 tachicardia quetiapine [Seroquel] Allergy Intermediate Aggitation Verified 07/01/24 15:30 orphenadrine [ORPHENADRINE] AdvReac Intermediate RAPID Verified 07/01/24 15:30 HEART RATE PMFSH Past Medical History Medical History Weakness Arthritis History of brain inflammation Protrusion of lumbar intervertebral disc Tinnitus Venous insufficiency Osteoarthritis Loss of hair History of headache Fibromyositis Fatigue Hyperlipidemia HTN (hypertension) Continuous opioid dependence Sinusitis Anemia Anxiety Diverticulosis Chronic idiopathic constipation Migraine Asthma Depression Diabetes 1.5, managed as type 2 Fibromyalgia Surgical History History of back surgery History of esophagogastroduodenoscopy (EGD) S/P panniculectomy Hx of hysterectomy Hx of oophorectomy Hx of bilateral breast reduction surgery H/O colonoscopy History of pubovaginal sling Gastric bypass status for obesity Family History Family History Mother Colon cancer Social History Social History Household Members: Spouse and Children Household Members Other:: lives alone Housing: House Are you a primary veterinarian laboratory animal care to a significant other at home: No Do you presently have visiting nurse or other home services: Yes ([employer] OFFICER) Alcohol intake: never Comment: IV infiltrated Patient Tobacco Use Status: Never used Tobacco Second Hand Smoke Exposure: No Advance Directives: Yes Advance Directives on File: Yes Advance Directives Date on File: 07/24/23 service: No Current occupational status: disabled Sexual orientation: Straight/Heterosexual Gender identity: Female Physical Exam ED Vital Signs: BMI result Body Mass Index 35.1 Course Course Course Narrative: This is a rapid medical exam performed by Roberto Michael NP: Additional HPI, ROS, PE not included below will be deferred to primary provider. Patient is a 64-year-old female with history of HTN, HLD, fibromyositis, anemia, asthma, migraines, fibromyalgia, DM presenting wiht 16 days of productive cough, fatigue, body aches, chills, headaches, dizziness. Plan: viral swabs, labs, CXR Medical Decision Making Lab Data 07/01/24 15:34 07/01/24 15:34 Labs: Lab Results 07/01/24 Range/Units 15:34 WBC 8.4 (4.8-10.8) X10*3/uL RBC 4.40 (4.20-5.50) X10*6/uL Hgb 10.7 L (12.0-16.0) g/dl Hct 34.6 L (37.0-47.0) % MCV 78.6 L (80.0-98.0) fL MCH 24.3 L (27.0-33.0) pg MCHC 30.9 L (31.0-35.0) g/dl RDW 17.4 H (11.0-16.0) % Plt Count 227 (160-400) X10*3/uL MPV 9.8 (9.4-12.3) fL Immature Gran % (Auto) 3.6 H (0.0-0.4) % Neut % (Auto) 59.5 (45-73) % Lymph % (Auto) 27.2 (20-40) % [place] % (Auto) 7.5 (2-11) % Eos % (Auto) 1.8 (0-4) % Baso % (Auto) 0.4 (0-2) % Lymph # (Auto) 2.3 (1.2-4.9) X10*3/uL [place] # (Auto) 0.6 (0.1-1.2) X10*3/uL Eos # (Auto) 0.2 (0.0-0.4) X10*3/uL Baso # (Auto) 0.0 (0.0-0.2) X10*3/uL Abs Immat Gran (auto) 0.30 H (0.00-0.03) X10*3/uL Absolute Neuts (auto) 5.0 (2.0-8.3) x10*3/uL Absolute Nucleated RBC 0.000 (0.0-0.012) X10*3/uL Nucleated RBC % (auto) 0.0 (0.0-0.2) /100WBC Sodium 144 (135-145) mmol/L Potassium 4.7 (3.3-5.1) mmol/L Chloride 105 (96-108) mmol/L Carbon Dioxide 30 H (22-29) mmol/L Anion Gap 14 (12-20) BUN 15 (9-16) mg/dL Creatinine 0.83 (0.5-1.4) mg/dL Estim Creat Clear Calc 80.3 Estimated GFR > 60 Random Glucose 98 (60-115) mg/dL Calcium 8.9 (8.4-10.2) mg/dL Total Bilirubin 0.1 (0.0-1.0) mg/dL AST 36 H (5-31) U/L ALT 26 (0-31) U/L Alkaline Phosphatase 78 (39-117) U/L Total Protein 8.0 (6.5-8.0) g/dL Albumin 3.9 (3.5-5.0) g/dL Influenza Type A (PCR) NEGATIVE (Negative) Influenza Type B (PCR) NEGATIVE (Negative) RSV RNA Qual (PCR) POSITIVE A (Negative) SARS-CoV-2 RNA (RT-PCR) NEGATIVE (Negative) Discharge Plan Discharge Clinical Impression: Cough, RSV infection Patient Disposition: Left W/O Completing Treatment Prescriptions: No Action clonazepam 1 mg tablet 1 mg PO BID 30 Days Qty: 60 0RF albuterol sulfate 90 mcg/actuation HFA aerosol inhaler 1 inh inhalation QID PRN (Reason: shortness of breath or wheezing) Qty: 6.7 0RF gabapentin 600 mg tablet 600 mg PO BEDTIME Qty: 30 0RF gabapentin 300 mg Capsule 300 mg PO DAILY Qty: 30 0RF hydrochlorothiazide 50 mg tablet 50 mg PO DAILY Qty: 30 0RF polyethylene glycol 3350 17 gram powder in packet 17 g PO DAILY Qty: 30 0RF sennosides-docusate sodium [Senna Plus] 8.6-50 mg Tablet 2 tab PO BID Qty: 120 0RF metformin 500 mg Tablet Extended Release 24 Hr 500 mg PO BIDWM Qty: 60 0RF lidocaine 5 % adhesive patch,medicated 1 patch topical DAILY Qty: 30 0RF Rx Instructions: leave on most painful area for up to 12 hrs ketorolac 10 mg tablet 10 mg PO Q8H 3 Days Qty: 9 0RF lidocaine [Lidoderm] 5 % adhesive patch,medicated 1 patch topical DAILY Qty: 30 0RF Rx Instructions: leave on most painful area for up to 12 hrs Wegovy 0.25 mg/0.5 mL pen injector 0.25 mg subcut QWEEK oxycodone 5 mg tablet 5 mg PO Q8H PRN (Reason: pain) 3 Days Qty: 20 0RF Rx Instructions: Partial Fill upon patient request. methocarbamol 750 mg tablet 750 mg PO TID Qty: 30 0RF acetaminophen 500 mg capsule 1,000 mg PO TID PRN (Reason: pain) Qty: 90 0RF aripiprazole 10 mg tablet 10 mg PO DAILY venlafaxine 150 mg capsule,extended release 24hr 300 mg PO QAM trazodone 100 mg tablet 300 mg PO BEDTIME ferrous sulfate 325 mg (65 mg iron) tablet,delayed release (DR/EC) 325 mg PO DAILY Discharge Date/Time: 07/01/24 20:28
[2024-07-01 15:38] LABS: MANUAL DIFF FLAG NO
[2024-07-01 15:45] LABS: Basophils Percent Auto 0.4 % (0-2); Eosinophils Absolute Auto 0.2 X10*3/uL (0.0-0.4); Eosinophils Percent Auto 1.8 % (0-4); Hematocrit 34.6 % (37.0-47.0); Hemoglobin 10.7 g/dl (12.0-16.0); Imm Gran Pct Auto 3.6 % (0.0-0.4); Lymphocytes Absolute Auto 2.3 X10*3/uL (1.2-4.9); Lymphocytes Percent Auto 27.2 % (20-40); Mean Corpuscular HGB Conc 30.9 g/dl (31.0-35.0); Mean Corpuscular Hemoglobin 24.3 pg (27.0-33.0); Mean Corpuscular Volume 78.6 fL (80.0-98.0); Mean Platelet Volume 9.8 fL (9.4-12.3); Monocytes Absolute Auto 0.6 X10*3/uL (0.1-1.2); Monocytes Percent Auto 7.5 % (2-11); Neutrophils Percent Auto 59.5 % (45-73); Platelet Count 227 X10*3/uL (160-400); Red Cell Distribution Width 17.4 % (11.0-16.0); White Blood Count 8.4 X10*3/uL (4.8-10.8)
[2024-07-01 16:01] LABS: Alanine Aminotransferase 26 U/L (0-31); Albumin Level 3.9 g/dL (3.5-5.0); Anion Gap 14 (12-20); Aspartate Amino Transferase 36 U/L (5-31); Bilirubin Total 0.1 mg/dL (0.0-1.0); Blood Urea Nitrogen 15 mg/dL (9-16); Calcium 8.9 mg/dL (8.4-10.2); Carbon Dioxide 30 mmol/L (22-29); Chloride 105 mmol/L (96-108); Creatinine Clr Calc Pharmacy 80.3; Estimated Glomerular Filt Rate > 60; Glucose Random 98 mg/dL (60-115); Potassium 4.7 mmol/L (3.3-5.1); Sodium 144 mmol/L (135-145)
[2024-07-01 16:26] LABS: Influenza A PCR NEGATIVE (Negative); Influenza B PCR NEGATIVE (Negative); Resp Syncy Virus RNA Qual PCR POSITIVE (Negative); SARS COV2 PCR INHOUSE NEGATIVE (Negative)
[2024-07-01 16:37] LABS: Alkaline Phosphatase 78 U/L (39-117)
--- OUTSIDE RECORDS SUMMARY | 2024-07-01 20:28 | XMS_ITS | Encounter Summary ---
Author Organization [employer] [facility] Address [address] [place] [address] [address] [place] [address] Care Team Providers Care Sprayer Insecticide Name Role Phone Elizabeth Dunn MD Primary Care Provide r Encounter Details Date Type Department Care Team (Late st Contact Info) Description 05/17/[address] [facility] [address] [place] [address] Linda Romero, EnaD [address] [place] [address] Social History Tobacco Use Types Packs/Day Years Used Date Smoking Tobacco: Never Assessed Comments Unknown Sex and Gender Information Value Date Recorded Sex Assigned at Female 03/11/2022 10:14 AM EDT Legal Sex Female 10:14 AM EDT Gender Identity Female 03/11/2022 10:14 AM EDT Sexual Orientation Straight 03/11/2022 10 :14 AM EDT documented as of this encounter Plan of Treatment Upcoming Encounters Date Type Department Care Team (Late st Contact Info) Description 07/15/2024 2:[address] [facility] [address] [place] [address] Elizabeth Dunn MD [address] [place] [address] documented as of this encounter Visit Diagnoses Not on filedocumented in this encounter Care Teams Sprayer Insecticide Relationship Specialty Start Date End Date Elizabeth Dunn MD [address] [place] [address] PCP - General Family Medicine 03/17/18 Thao Barnhart [employer] Mechanical Instrument Maker 02/07/23 documented as of this encounter
--- OUTSIDE RECORDS SUMMARY | 2024-07-01 20:28 | XMS_ITS | Clinical Summary ---
Author Organization [facility], Address [address] [place] [address] Phone Care Team Providers Care Telecommunication Equipment Repairer Name Role Phone Elizabeth Dunn MD Primary Care Provide r Allergies Active Allergy Reactions Criticality Noted Date Comments Barium Iodid 04/25/2017 Pt unsure Morphine Other (see comments) 01/17/2021 Orphenadrine High 10/29/2022 Other reaction(s): RAPID HEART RATE Quetiapine 01/18/2021 Medications clonazePAM (KlonoPIN) 1 MG dispersible tablet Take 1 tablet by mouth 1 (one) time each day Active traZODone (DESYREL) 100 MG tablet Take 200 mg by mouth 1 (one) time each day Active venlafaxine XR (EFFEXOR-XR) 150 MG 24 hr capsule Take 2 capsules by mouth 1 (one) time each day Active cyclobenzaprine (FLEXERIL) 5 MG tablet Take 5 mg by mouth 3 (three) times a day if needed for muscle spasms Active fluticasone HFA (FLOVENT HFA) 110 MCG/ACT inhaler Inhale 1 puff 2 (two) times a day Rinse mouth with water after use to reduce aftertaste and incidence of candidiasis. Do not swallow. Active metFORMIN (GLUCOPHAGE) 500 MG tablet Take 500 mg by mouth 2 (two) times a day with meals Active albuterol HFA (PROVENTIL HFA;VENTOLIN HFA) 108 (90 Base) MCG/ACT inhaler Inhale 2 puffs every 6 (six) hours if needed for wheezing Active Melatonin 5 MG tablet Take 1 tablet by mouth at night if needed Active hydroCHLOROthiaz uzair 12.5 MG tablet Take 1 tablet by mouth 1 (one) time each day 2 Active gabapentin (NEURONTIN) 300 MG capsule Take 1 capsule by mouth in the morning and 1 capsule in the evening and 1 capsule before bedtime. 2 Active amitriptyline (ELAVIL) 150 MG tablet TOME NEVAEH TABLETA TODOS LOS D AL ACOSTARSE FOR 30 DAYS Active ARIPiprazole (ABILIFY) 10 MG tablet TOME NEVAEH TABLETA TODOS LOS D Active Butrans 5 MCG/HR patch weekly PLACE 1 PATCH ON THE SKIN 1 (ONE) TIME PER WEEK. FOR CHRONIC PAIN. APPLY TO UPPER OR LOWER BACK Active Diclofenac Sodium 1 % gel Apply on affected area twice a day 3 Active lidocaine (LIDODERM) 5 % patch APLIQUE UN PARCHE EN LA MA JESSICA REMOVE AND DISARD PATCH WITHIN 12 HOURS OR SEG N LO INDICADO Active linaCLOtide (Linzess) 145 MCG capsule Take 1 capsule by mouth in the morning. 3 Active Active Problems Problem Noted Date Diagnosed Date Hypotension, not otherwise specified 01/23/2022 Hypertension 01/18/2021 Acute nontraumatic kidney injury 01/17/2021 Resolved Problems Problem Noted Date Diagnosed Date Resolved Date Chronic back pain 01/17/2021 01/17/2021 Fibromyalgia 01/17/2021 01/17/2021 Depressive disorder 01/17/2021 01/18/20 21 Diabetes mellitus 01/17/2021 01/17/2021 Edema 01/17/2021 01/17/2021 Hyperlipidemia 01/17/2021 01/17/2021 Obesity 01/17/2021 01/17/2021 Osteoarthritis 01/17/2021 01/17/2021 Posttraumatic stress disorder 01/17/2021 01/17/2021 Immunizations Name Administration Dates Next Due DT 07/20/2008 Family History Medical History Relation Comments Diabetes Father Heart disease Father Hypertension Father Cancer Mother Hypertension Mother Relation Status Comments Father Mother Social History Tobacco Use Types Packs/Day Years Used Date Smoking Tobacco: Never Smokeless Tobacco: Never Tobacco Cessation:Counseling Given: Not Answered Alcohol Use Standard Drinks/Week Comments No 0 (1 standard drink = 0.6 oz pur e alcohol) Comments Unknown Sex and Gender Information Value Date Recorded Sex Assigned at Not on file Legal Sex Female 4:49 PM EST Gender Identity Not on file Sexual Orientation Not on file Last Filed Vital Signs Vital Sign Reading Time Taken Comments Blood Pressure 137/88 07/15/2023 2:36 PM EST Pulse 77 07/15/2023 2:36 PM EST Temperature 36.1 ??C (97 ??F) 07/15/2023 2:36 PM EST Respiratory Rate - - Oxygen Saturation 96% 07/15/2023 2:36 PM EST Inhaled Oxygen Concentration - - Weight 95.3 kg (210 lb) 07/15/2023 2:36 PM EST Height 165.1 cm (5' 5 ) 07/15/2023 2:36 PM EST Body Mass Index 34.95 07/15/2023 2:36 PM EST Plan of Treatment Health Maintenance Due Date Last Done Comments Breast Cancer Screening 1962 Colorectal Cancer Screening: Annual FOBT 2011 Colorectal Cancer Screening: Colonoscopy 2011 Colorectal Cancer Screening: Sigmoidoscopy 2011 Pneumococcal Vaccine: Pediatrics (0 to 5 Years) and At-Risk Patients (6 to 64 Years) (3 of 3 - PCV) 04/14/2015 04/14/2014, 03/12/2000 Diabetes: Ophthalmology Exam 07/15/2023 Diabetes: Pedal Pulse Checked 07/15/2023 Diabetes: Sensory Foot Exam 07/15/2023 Diabetes: Visual Foot Exam 07/15/2023 Diabetes: Hemoglobin A1C 07/21/2023 04/21/2023, 05/13 Influenza Vaccine (#1) 2024 , 03/14/2021, 03/02/2020, Additional history exists Hepatitis B Vaccine Aged Out No longe r eligible based on patient's age to complete this topic Procedures Procedure Name Priority Date/Time Associated Diagnosis Comments EXT RESULT ENTRY Routine 05/31/2020 from Last 3 Months or Most Recently Relevant to Health Maintenance Results * (ABNORMAL) EXT RESULT ENTRY (05/31/2020) WBC 8.2 3.3 - 10.0 10*3/ML Red Blood Cell Count 4.23 Hemoglobin 11.7(A) 12.0 - 16.0 Hematocrit 36.5 36.0 - 46.0 Platelets 221 150 - 399 10*3/UL MCV 86.3 82.0 - 108.0 Vitamin D, 25-OH, Total 13 ng/mL Hemoglobin A1C 5.7 4.0 - 6.0 Triglycerides 270(A) 40 - 160 Cholesterol 229(A) 0 - 200 HDL 61 35 - 70 MG/DL LDL Calculated 126 0 - 160 mg/dL 05/31/2020 us Historical Provider LAB BLOOD ORDERABLES Sandy l Result from Last 3 Months or Most Recently Relevant to Health Maintenance Insurance [place]ICAID [place] Member Subscriber Plan / Payer (Ef fective 2020-Present) Name:Rob, Lelo Relation to Subscriber:Self Name:Lelo Rivas Payer ID:Not on file Group ID:Not on file Type:Not on file Address: [place] [id number] MEDICAID [place] Care Teams Telecommunication Equipment Repairer Relationship Specialty Start Date End Date Elizabeth Dunn MD [address] [place] [phone] PCP - General Internal Medicine 11/17/20
--- OUTSIDE RECORDS SUMMARY | 2024-07-01 20:28 | XMS_ITS | Encounter Summary ---
Author Organization [employer] Address [address] [facility] [address] [place] [address] Care Team Providers Care Nurse Case Management Name Role Phone Elizabeth Dunn MD Primary Care Provide r Encounter Details Date Type Department Care Team (Late st Contact Info) Description 03/26/2024 Orders Only [facility] [address] [place] [address] Elizabeth Dunn MD [address] [place] [address] Social History Tobacco Use Types Packs/Day Years Used Date Smoking Tobacco: Never Passive Smoke Exposure: Never Smokeless Tobacco: Never Alcohol Use Standard Drinks/Week Comments Never 0 (1 standard drink = 0.6 oz pur e alcohol) Depression Answer Date Recorded Patient Health Questionnaire-9 Score 0 08/20/2023 Patient Health Questionnaire-9 Score 0 08/20/2023 Last PHQ-9: Questionnaire Data Not on file 0 08/20/2023 Housing Stability Answer Date Recorded What is your housing situation today? I have katia manriquez 08/20/[address] you li ve. Do you have problems with any of the following? None of the above 08/20/2023 Food Insecurity Answer Date Recorded Within the past 12 months, y ou worried that your food would run out before you got money to buy more: Never True 08/20/2023 Within the past 12 months,th e food you bought just didn't last and you didn't have enough money to get more: Never True 02/2024 Transportation Answer Date Recorded In the past 12 months, has l ack of transportation kept you from medical appts, meetings, work or from getting things needed for daily living? No 08/20/2023 Utilities Answer Date Recorded In the past 12 months, has t he electric, gas, oil or water company threatened to shut off services in your home? No 08/20/2023 Depression Answer Date Recorded Patient Health Questionnaire-2 Score 0 08/20/2023 Comments Unknown Sex and Gender Information Value Date Recorded Sex Assigned at Female 03/11/2022 10:14 AM EDT Legal Sex Female 10:14 AM EDT Gender Identity Female 03/11/2022 10:14 AM EDT Sexual Orientation Straight 03/11/2022 10 :14 AM EDT documented as of this encounter Plan of Treatment Upcoming Encounters Date Type Department Care Team (Late st Contact Info) Description 07/15/2024 2:30 PM EST Telemedicine [facility] [address] [place] [id number] Elizabeth Dunn MD [address] [place] [phone] documented as of this encounter Visit Diagnoses Not on filedocumented in this encounter Additional Health Concerns Assessment Noted Time PHQ-9 Depression Total Score: 0 08/20/19 24 2:32 PM EDT documented as of this encounter Care Teams Nurse Case Management Relationship Specialty Start Date End Date Elizabeth Dunn MD [address] [place] [phone] PCP - General Family Medicine 03/17/18 Thao Barnhart Flare StitcherTeacher 02/07/23 documented as of this encounter
--- OUTSIDE RECORDS SUMMARY | 2024-07-01 20:28 | XMS_ITS | Clinical Summary ---
Author Organization [address] [facility] Address [address] [place] [address] Phone Care Team Providers Care Airplane Gastank Liner Assembler Name Role Phone Elizabeth Dunn MD Primary Care Provide r Allergies No known active allergies Medications hydroCHLOROthia zide (HYDRODIURIL) 50 mg tablet Take 1 tablet (50 mg total) by mouth 1 (one) time each day. Active lidocaine (LIDODERM) 5 % patch Apply 1 patch topically 1 (one) time each day. Remove & discard patch within 12 hours or as directed by MD. Active venlafaxine XR (EFFEXOR-XR) 150 mg 24 hr capsule Take 1 capsule (150 mg total) by mouth 1 (one) time each day. Do not crush or chew. Active traZODone (DESYREL) 150 mg tablet Take 1 tablet (150 mg total) by mouth at bedtime. Active metFORMIN (GLUCOPHAGE) 500 mg tablet Take 1 tablet (500 mg total) by mouth 2 (two) times a day with meals. Active melatonin 3 mg tablet Take by mouth. Activ e linaCLOtide (Linzess) 145 mcg capsule Take 1 capsule (145 mcg total) by mouth 1 (one) time each day. 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 Hypertension 03/18/2024 Hyperlipidemia 03/18/2024 Fatigue 03/18/2024 Dizziness 03/18/2024 Chronic left-sided low back pain with left-sided sciatica 03/18/2024 Social History Tobacco Use Types Packs/Day Years Used Date Smoking Tobacco: Never Assessed Comments Unknown Sex and Gender Information Value Date Recorded Sex Assigned at Not on file Legal Sex Female 3:12 PM EST Gender Identity Not on file Sexual Orientation Not on file Last Filed Vital Signs Vital Sign Reading Time Taken Comments Blood Pressure - - Pulse - - Temperature - - Respiratory Rate - - Oxygen Saturation - - Inhaled Oxygen Concentration - - Weight 99.9 kg (220 lb 3.2 oz) 03/23/2024 2:22 P M EST Height 165.1 cm (5' 5 ) 03/23/2024 2:22 PM EST Body Mass Index 36.64 03/23/2024 2:22 PM EST Plan of Treatment Health Maintenance Due Date Last Done Comments Breast Cancer Screening 1962 Diabetes: Annual Foot Exam 02/15/1972 Diabetes: Annual Retina Eye Exam 02/15/1972 Cervical Cancer Screening: Pap Smear 1983 Pneumococcal Vaccine: 50+ Years (2 of 2 - PCV) 04/14/2015 04/14/2014, 03/12/2000 Pneumococcal Vaccine: Pediatrics (0 to 5 Years) and At-Risk Patients (6 to 64 Years) (2 of 2 - PCV) 04/14/2015 04/14/2014, 03/12/2000 RSV Immunization Patients 60+ Years Old (1 - Risk 60-74 years 1-dose series) 2022 COVID-19 Vaccine ( season) 2024 08/02/2022, 12/07/2021, 05/25/2021, Additional history exists Influenza Vaccine (#1) 2024 , 04/21/2023, 03/14/2021, Additional history exists Cholesterol Screening (Lipid Panel) 02/13/2024 Colorectal Cancer Screening: Colonoscopy 02/13/2024 Hepatitis C Screening 02/13/2024 Social Influencers of Health Screening 02/13/2024 Diabetes: Annual Urine Albumin-Creatinine Ratio (uACR) 03/18/2024 Diabetes: Blood Sugar Control Test (HGBA1C) 06/10/2024 12/09/2023 Depression Screening 08/19/2024 08/20/2023 Diabetes: Annual GFR (Glomerular Filtration Rate) 01/24/2025 01/25/2024, 01/05/2024 Hypertension/CHF/CAD Annual BMP Blood Test 01/24/2025 01/25/2024, 01/05/2024 DTaP,Tdap,and Td Vaccines (5 - Td or Tdap) 12/23/2032 12/23/2022, 06/20/2011, 07/20/2008, Additional history exists HIV Screening Completed 10/23/2020 Zoster Vaccines Completed 02/24/2023, 12/23/2022 HIB Vaccines Aged Out No longer eligi ble based on patient's age to complete this topic HPV Vaccines Aged Out No longer eligi ble based on patient's age to complete this topic Hepatitis A Vaccines Aged Out No long er eligible based on patient's age to complete this topic Hepatitis B Vaccines Aged Out No long er eligible based on patient's age to complete this topic IPV Vaccines Aged Out No longer eligi ble based on patient's age to complete this topic MMR Vaccines Aged Out No longer eligi ble based on patient's age to complete this topic Meningococcal ACWY Vaccine Aged Out N o longer eligible based on patient's age to complete this topic Meningococcal B Vacine Aged Out No lo nger eligible based on patient's age to complete this topic RSV Immunization Patients Under 20 months Aged Out No longer eligible based on patient's age to complete this topic Varicella Vaccines Aged Out No longer eligible based on patient's age to complete this topic [place] Care Teams Airplane Gastank Liner Assembler Relationship Specialty Start Date End Date Elizabeth Dunn MD [address] [place] [phone] PCP - General Internal Medicine 02/12/24
--- OUTSIDE RECORDS SUMMARY | 2024-07-01 20:29 | XMS_ITS | Encounter Summary ---
Author Organization [employer] Address [address] [facility] [address] [place] [address] Care Team Providers Care Gm Mobile Name Role Phone Elizabeth Dunn MD Primary Care Provide r Reason for Visit * Reason Onset Date Comments Nurse Triage 11/26/2023 Encounter Details Date Type Department Care Team ([facility] st Contact Info) Description 11/26/2023 Telephone [facility] [address] [place] [address] Elizabeth Dunn MD [address] [place] [address] Nurse Triage Social History Tobacco Use Types Packs/Day Years [...] AM EDT documented as of this encounter Miscellaneous Notes * Telephone Encounter - Carmen Henley RN - 11/26/2023 3:12 PM EDT Call returned to Lelo Rivas to triage below. Per pt having chronic back pain and currently in PT and having severe pain. Per pt using Ibuprofen and lidocaine patches. Per pt no new injury or fall. Per pt believes pain related to PT. Per pt has not called online merchandising specialist to notify of increased pain with PT. Pt advised to contact their office for their recommendations as well Lelo Rivas advised should sx worsen tonight to seek ER again. Will forward to PCP to review note and ER visit notes from 11/11/23 and advise team if any recommendations for pain management until upcoming follow up appt. Nothing sooner to book with PCP. Reviewed home care advise, ER precautions and reasons tocall back. Protocol Used: Back Pain (Adult) Protocol-Based Disposition: See in Office or Video Visit Today Override (Final) Disposition: Discuss with PCP and Callback by Nurse Today Override Reason: Nurse judgment Video visit offer not recorded Positive Triage Question: * Severe back pain (e.g., excruciating, unable to do any normal activities) and not improved after pain medicine and Care Advice * All higher-acuity triage questions were negative Care Advice Discussed: * Reassurance and Education - Back Pain * Cold or Heat * Activity * Pain Medicines * Reasons To Call Back - Fever occurs - Numbness or weakness occurs, or bowel/bladder problems - Pain begins to shoot into the leg - You become worse * Telephone Encounter - Abraham Crespo - 11/26/2023 2:59 PM EDT Symptom: Back Pain - Not From Injury Outcome: Talk to a nurse or provider within 15 minutes Reason: Can't walk (unless normally can't walk) documented in this encounter Plan of Treatment Upcoming Encounters Date Type Department Care Team (Late st Contact Info) Description 07/15/2024 2:30 PM EST Telemedicine [facility] [address] [place] [address] Elizabeth Dunn MD [address] [place], [place] [phone] documented as of this encounter Visit Diagnoses Not on filedocumented in this encounter Additional Health Concerns Assessment Noted Time PHQ-9 Depression Total Score: 0 08/20/19 24 2:32 PM EDT documented as of this encounter Care Teams Gm Mobile Relationship Specialty Start Date End Date Elizabeth Dunn MD [address] [place] [address] PCP - General Family Medicine 03/17/18 Thao Barnhart Branch Account ExecutiveMilk Processing Worker 02/07/23 documented as of this encounter
--- OUTSIDE RECORDS SUMMARY | 2024-07-01 20:29 | XMS_ITS | Clinical Summary ---
Author Organization [facility] Address [address] [facility] [address] [place] [address] Care Team Providers Care Wreath Inspector Name Role Phone Elizabeth Dunn MD Primary Care Provide r Allergies Active Allergy Reactions Criticality Noted Date Comments Barium Iodid 04/25/2017 Pt unsure Morphine Unknown High 02/25/2012 Other reaction(s): PALPITATIONS, tachicardia Orphenadrine High 10/29/2022 Other reaction(s): RAPID HEART RATE Quetiapine Palpitations Low 04/24/2017 Other reaction(s): Unknown Medications * This document contains information received from the source organization and may not represent a complete record from that organization. fluticasone (Flovent) 110 MCG/ACT inhaler Inhale 2 puffs every 12 (twelve) hours. 04/28/20 20 Active clonazePAM (KlonoPIN) 1 MG tablet Take 1 tablet by mouth twice daily & take 1/2 tablet by mouth daily as needed Active albuterol 108 (90 Base) MCG/ACT inhaler Inhale 1 puff every 6 (six) hours if needed. 05/31/19 21 Active melatonin 5 MG tablet Take 1 tablet by mouth if needed at bedtime. 05/15/19 23 Active Diclofenac Sodium 1 % gelIndications:Fi bromyalgia Apply on affected area twice a day 350 g 3 08/03/19 23 Active glucose blood (FREESTYLE LITE) test strip Test blood sugar twice a day 50 each 11 08/09/19 23 Active Linzess 145 MCG capsule Take 1 capsule by mouth 1 (one) time each day. 10/30/19 23 Active amitriptyline (Elavil) 150 MG tablet TOME NEVAEH TABLETA TOELO LOS D AL ACOSTARSE FOR 30 DAYS 03/30/20 23 Active venlafaxine XR (Effexor XR) 150 MG 24 hr capsule TOME 2 C PSULAS POR V A ORAL TODOS LOS D EN LA MA JESSICA 04/08/20 23 Active lidocaine (Lidoderm) 5 % patchIndications: Protrusion of lumbar intervertebral disc Apply 1 patch topically in the morning. Remove & discard patch within 12 hours or as directed by MD. 30 patch 1 05/13/19 24 Active hydroCHLOROthiazi de (HYDRODiuril) 50 MG tabletIndications :Primary hypertension Take 1 tablet (50 mg) by mouth in the morning. 30 tablet 11 07/15/19 24 025 Active oxyCODONE (Roxicodone) 5 MG immediate release tablet Take 5 mg by mouth every 6 (six) hours if needed for severe pain. Active senna-docusate (Chayo-Colace) 8.6-50 MG tablet Take 2 tablets by mouth 2 times daily. Active polyethylene glycol, PEG, 3350 (Miralax) 17 g packet Take 17 g by mouth in the morning. Active traZODone (Desyrel) 150 MG tablet Take 150 mg by mouth at bedtime. Active metFORMIN XR (Glucophage-XR) 500 MG 24 hr tabletIndications :Type 2 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 (CMS/HCC) TOME NEVAEH TABLETA DOS VECES AL ARACELI 180 tablet 1 01/07/20 24 Active lidocaine (Lidoderm) 5 % patchIndications: Chronic bilateral low back pain with left-sided sciatica Apply 1 patch topically Once per day. Remove & discard patch within 12 hours or as directed by MD. 30 patch 1 01/07/20 24 Active acetaminophen (Tylenol) 500 MG tabletIndications :Chronic midline low back pain with left-sided sciatica Take 2 tablets (1,000 mg) by mouth every 8 (eight) hours if needed for mild pain. 60 tablet 04/07/20 24 Active Semaglutide-Weigh t Management (Wegovy) 0.25 MG/0.5ML solution auto-injectorIndi cations:Class 2 obesity without serious comorbidity with body mass index (BMI) of 35.0 to 35.9 in adult, unspecified obesity type Inject 0.5 mL (0.25 mg) under the skin 1 (one) time per week. 0.5 mL 04/07/20 24 Active ferrous sulfate 325 (65 Fe) MG EC tabletIndications :Microcytic anemia TAKE 1 TABLET BY MOUTH EVERY DAY. DO NOT CRUSH, CHEW OR SPLIT. 90 tablet 04/20/20 24 Active Tirzepatide-Weigh t Management (Zepbound) 2.5 MG/0.5ML solution auto-injectorIndi cations:Class 2 severe obesity with serious comorbidity and body mass index (BMI) of 35.0 to 35.9 in adult, unspecified obesity type (CMS/HCC) Inject 0.5 mL (2.5 mg) under the skin 1 (one) time per week. 2 mL 05/27/19 25 Active gabapentin (Neurontin) 600 MG tabletIndications :S/P lumbar fusion,Chronic bilateral low back pain with left-sided sciatica TAKE 1 TABLET BY MOUTH 3 TIMES DAILY. 90 tablet 2 06/21/19 25 Active methocarbamol (Robaxin) 500 MG tabletIndications :Chronic midline low back pain with left-sided sciatica TAKE 2 TABLETS (1,000 MG) BY MOUTH EVERY 8 (EIGHT) HOURS IF NEEDED FOR MUSCLE SPASMS 168 tablet 06/21/19 25 Active gabapentin (Neurontin) 600 MG tabletIndications :S/P lumbar fusion,Chronic bilateral low back pain with left-sided sciatica Take 1 tablet (600 mg) by mouth 3 times daily. 90 tablet 2 01/07/20 24 025 Discontinued methocarbamol (Robaxin) 500 MG tabletIndications :Chronic midline low back pain with left-sided sciatica Take 2 tablets (1,000 mg) by mouth every 8 (eight) hours if needed for muscle spasms for up to 28 days. 168 tablet 04/07/20 24 025 Discontinued acetaminophen (Tylenol 8 Hour) 650 MG ER tabletIndications :Status post lumbar spinal fusion Take 2 tablets (1,300 mg) by mouth every 8 (eight) hours if needed for mild pain for up to 20 days. Do not crush, chew, or split. 40 tablet 2 05/27/19 25 025 Active Problems Problem Noted Date Diagnosed Date Class 2 severe obesity with serious comorbidity and body mass index (BMI) of 35.0 to 35.9 in adult 04/07/2024 Assessment & Plan (04/07/2024 1:23 PM EST): Extensive discussion done today I will prescribe for patient wegovy 0.25mg and f/u to monitor weight and side effects Breast pain 01/07/2024 S/P lumbar fusion 01/07/2024 Chronic midline low back pain with left-sided sc iatica 01/07/2024 Assessment & Plan (04/07/2024 1:21 PM EST): Patient is waiting for medication for procedure that will be done by pain management, if its approved for insurance she will be probably be schedule for procedure on 04/23/24 Meanwhile c/w gabapentin 600mg TID I went up on methocarbamol to 1000mg Q 8hrs C/w acetaminophen PRN Primary insomnia 01/07/2024 Encounter for screening mamm ogram for malignant neoplasm of breast 12/09/2023 Lower extremity pain, left 10/20/2023 Status post lumbar spinal fusion 08/20/2023 Assessment & Plan (08/21/2023 12:22 PM EDT): Patient overall looks better she tells me she has pain coming from her lower back to her left foot, she is being manage by pain/hr specialist (medications prescribed by specialist only) Chronic bilateral low back pain with left-sided sciatica 08/20/2023 Assessment & Plan (01/07/2024 2:12 PM EDT): I will increase gabapentin to 600mg TID and refer her back to pain management Pelvic pain 08/20/2023 Assessment & Plan (08/21/2023 12:20 PM EDT): PROGRAM PROFESSIONAL referral as per patient's request Preop examination 07/15/2023 Assessment & Plan (07/15/2023 12:16 PM EST): RCRI score is 0 meaning its 3.9% Patient is a low risk for procedure, surgery should proceed as schedule I advise NPO after midnight the day of the procedure I advise to take her blood pressure and anxiety medication the day of the procedure with small sip of water EKG done at the office shows NSR, no ST segment changes and normal HR Protrusion of lumbar intervertebral disc 023 Assessment & Plan (05/13/2023 1:11 PM EST): Patient is schedule for lumbar fusion surgery, schedule by pain management for 07/01/23 Again I explain to her I can no longer prescribe opioids for her I send gabapentin prescription 300mg BID Cyclobenzaprine 5mg TID (patient is aware of side effect somnolence and not to mis it with benzodiazepines) Lidocaine patch daily Assessment & Plan (04/22/2023 10:05 AM EST): Pt with 10+ years of continuous opioid use with recent discontinuation/taper due to potential overdose and misuse risk. She is reporting significant pain and lack of function without opioids, likely due to hyperalgesia and rapid taper - counseled not to use other people's medication, street drugs, or to buy medications, including all forms of opioids - discussed partial agonist, buprenorphine for pain. She mentions something about trying Tramadol (not in PDMP) and is not sure where she got this medication, so I am hesitant to prescribe Suboxone due to risk of interaction with other opioid containing medications. Although this is her preference, I think she should try Butrans first - I made a list of all pharmaceutical and street opioids, per her request, as things to avoid - avoid taking more than prescribed dose of benzodiazepine, Klonopin 1mg two to three times daily - start Butrans 5mcg once weekly for chronic pain - follow-up with PCP in 1-2 months to discuss this initiation as well as planning for medication adjustment around time of back surgery, need for mental health support Asthma 04/21/2023 04/21/2023 COVID-19 04/21/2023 04/21/2023 Diabetes 1.5, managed as type 2 04/21/2023 04/21/2023 Diverticulosis 04/21/2023 04/21/2023 Feeling of incomplete bladder emptying 04/21/2023 Hesitancy of micturition 04/21/2023 023 Leg pain 04/21/2023 04/21/2023 Migraine 04/21/2023 04/21/2023 Shoulder pain, right 04/21/2023 04/21/2023 Symptom of leg swelling 04/21/2023 04/21/20 23 Varicose veins of right lower extremity with inf lammation 04/21/2023 04/21/2023 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 order 12/23/2022 Assessment & Plan (12/23/2022 2:02 PM EDT): Counseling done She has an upcoming appointment with her psychiatrist next month, I advise not to miss her appointment and to follow up also with her therapist I will increase for now her venlafaxine to 225mg until she is re-evelauted by her psychiatrist Chronic pain 10/15/2022 Excess skin of upper extremity 08/02/2022 Assessment & Plan (08/02/2022 3:47 PM EDT): I will refer her to plastic surgery Fibromyalgia 08/02/2022 Assessment & Plan (01/11/2023 10:44 AM EDT): I explained to patient that she may need to increase physical activity slowly, maybe restart PT once LBP is improved. Advised about healthy food choices, quit smoking and avoid any drug use. I told her it is important to treat MH issues and avoid habit forming meds including benzodiazepines as tolerance to those can be manifested as pain and weakness. Advised about proper sleeping, remain hydrated, favor water instead of sweetened drinks and daily outdoor exercise/walk. We discussed about the limited role of med in FM, to relieve pain itself. She will continue Effexor. I will increase gabapentin to bid and add Flexeril at bedtime FU w PCP as reccommended Assessment & Plan (08/02/2022 3:50 PM EDT): Patient was educated about multidisciplinary approach for her condition, it was advise cardiovascular exercise, maintain hydration, treat anxiety/depression and take medications as directed Acute maxillary sinusitis 05/20/2022 Microcytic anemia 05/20/2022 Assessment & Plan (10/15/2022 4:37 PM EDT): Patient has an appointment with GI for possible EGD and colonoscopy on 11/08/22 Ferrous sulfate prescription given Blurring of visual image 05/20/2022 Disorder of joint of spine 05/20/2022 Assessment & Plan (01/11/2023 10:40 AM EDT): Recommended to fu with Pain clinic for epidural injection. We'll call Pain clinic to check on her appt date. Continue Meloxicam Add Flexeril at bedtime, can take it with Tylenol Declined PT referral, I recommended to come to walk in acupuncture clinic. And fu closely with MH provider. I advised against taking opiates for chronic pain control. Dizziness 05/20/2022 Fatigue 05/20/2022 Headache 05/20/2022 Inflammatory dermatosis 05/20/2022 Loss of hair 05/20/2022 Osteoarthritis of right glenohumeral joint 05/20 Sebaceous cyst 05/20/2022 Suspected COVID-19 virus infection 05/20/2022 Venous insufficiency 05/20/2022 Assessment & Plan (10/15/2022 4:39 PM EDT): Patient has left ankle swelling likely 2/2 venous insufficiency I refer her back to vascular and advise to use her compression stockings Urinary tract infectious disease 05/20/2022 Tinnitus 05/20/2022 Injury of kidney 05/20/2022 Hypertension 01/18/2021 Assessment & Plan (08/21/2023 12:26 PM EDT): Today blood pressure is high, she tells me it is because of the pain, I advise to take medications as prescribed, to be adherent to low Na diet and to take her pain medications also as prescribe Ia advise to monitor BP at home and come back for nurse visit in 2 weeks if BP not at goal I will start her on lisinopril 10mg Assessment & Plan (07/15/2023 12:12 PM EST): I notice her blood pressure was a little high today, I went up on her medication hydrochlorothiazide to 50mg daily, I advise not to skin any dose and low Na diet Assessment & Plan (05/13/2023 1:13 PM EST): -hydrochlorothiazide increase to 25mg daily - Aerobic exercise to reduce BP. Initial goal of 30 min walk 3-5x/week. Increase as tolerated. - low-sodium diet (goal: <2g/day) and heart healthy diet such as DASH to reduce BP and prevent ASCVD. - Home BP monitoring 1-2 x day with goal of <140/90. - Seek immediate medical attention for chest pain, palpitations, SOB, syncope, or sudden changes in mental status. - Do not change or discontinue current prescriptions without first consulting health care provider Assessment & Plan (08/02/2022 3:47 PM EDT): Maintenance: BMP: recently done Lipid Panel: ordered today ASCVD Risk: Calculate pending updated labs - Aerobic exercise to reduce BP. Initial goal of 30 min walk 3-5x/week. Increase as tolerated. - low-sodium diet (goal: <2g/day) and heart healthy diet such as DASH to reduce BP and prevent ASCVD. - Home BP monitoring 1-2 x day with goal of <140/90. - Seek immediate medical attention for chest pain, palpitations, SOB, syncope, or sudden changes in mental status. - Do not change or discontinue current prescriptions without first consulting health care provider Benzodiazepine dependence 10/14/2017 Chronic idiopathic constipation 04/08/2017 Chronic left-sided low back pain with left-sided sciatica 04/08/2017 Assessment & Plan (12/23/2022 2:06 PM EDT): Patient will schedule her appointment with pain management Extensive discussion done today, I explain to her unfortunately I will have to taper down her oxycodone and then completely discontinue, I explain I don't believe she is a candidate for opioids several reasons (mental health problems, possible recent suicide attempt, at home with substance abuse problem, utox done at the hospital no opioids only benoz), patient understands and agrees with plan Assessment & Plan (10/15/2022 4:38 PM EDT): I will give her a 7 days supply for percocet 10/325mg she ask to be referred to pain management for further management Continuous opioid dependence 04/08/2017 History of hysterectomy for benign disease 04/08 Hyperlipidemia 04/08/2017 Depression 04/08/2017 Multiple somatic complaints 04/08/2017 Peripheral edema 04/08/2017 Type 2 diabetes mellitus without ophthalmic andrew festations 10/11/2011 Assessment & Plan (04/07/2024 1:19 PM EST): - Lab Results Component Value Date HGBA1C 6.6 (A) 04/07/2024 HGBA1C 6.8 (A) 12/09/2023 HGBA1C 6.3 (A) 04/21/2023 - Lab Results Component Value Date MICROALBUR 9.0 01/05/2024 CREATININE 0.86 01/25/2024 -Changes: I will prescribed for patient for patient charles, it would help also to achieve A1c goal - Diabetic eye exam:pending - Diabetic foot exam:referral placed - Continue lifestyle modifications - Continue current medications - Follow up: 3 months Assessment & Plan (01/07/2024 2:11 PM EDT): Diabetes is: controlled - Lab Results Component Value Date HGBA1C 6.8 (A) 12/09/2023 HGBA1C 6.3 (A) 04/21/2023 HGBA1C 6.0 10/15/2022 - Lab Results Component Value Date MICROALBUR 9.0 01/05/2024 CREATININE 1.02 01/05/2024 -Changes: none - Diabetic eye exam:up to date - Diabetic foot exam:up to date - Continue lifestyle modifications - Continue current medications - Follow up: 3 months Assessment & Plan (12/09/2023 5:09 PM EDT): Diabetes is: controlled - Lab Results Component Value Date HGBA1C 6.8 (A) 12/09/2023 HGBA1C 6.3 (A) 04/21/2023 HGBA1C 6.0 10/15/2022 - Lab Results Component Value Date MICROALBUR <0.2 05/31/2020 CREATININE 0.73 12/11/2022 -Changes: none - Diabetic eye exam:pending - Diabetic foot exam:pending - Continue lifestyle modifications - Continue current medications - Follow up: 3 months Assessment & Plan (07/15/2023 12:12 PM EST): Diabetes is: controlled - Lab Results Component Value Date HGBA1C 6.3 (A) 04/21/2023 HGBA1C 6.0 10/15/2022 HGBA1C 5.7 (H) 05/31/2020 - Lab Results Component Value Date MICROALBUR <0.2 05/31/2020 CREATININE 0.73 12/11/2022 -Changes: none - Diabetic eye exam:pending - Diabetic foot exam:pending - Continue lifestyle modifications - Continue current medications - Follow up: 3 months Assessment & Plan (05/13/2023 1:12 PM EST): - Lab Results Component Value Date HGBA1C 6.3 (A) 04/21/2023 HGBA1C 6.0 10/15/2022 HGBA1C 5.7 (H) 05/31/2020 - Lab Results Component Value Date MICROALBUR <0.2 05/31/2020 CREATININE 0.73 12/11/2022 - Continue lifestyle modifications - Continue current medications Assessment & Plan (10/15/2022 4:36 PM EDT): Continue with current interventions Fibromyositis 06/20/2011 Status post panniculectomy 08/13/200704/21 Encounters Date Type Department Care Team Description 06/21/2024 Telephone [facility] [address] [place] [id number] Elizabeth Dunn MD Med Refill 06/21/[address] [address] Elizabeth Dunn MD S/P lumbar fusion; Chronic bilateral low back pain with left-sided sciatica; Chronic midline low back pain with left-sided sciatica 05/27/2024 2:30 PM EST Telemedicine [address] [address] Elizabeth Dunn MD Class 2 severe obesity with serious comorbidity and body mass index (BMI) of 35.0 to 35.9 in adult, unspecified obesity type (CMS/HCC) (Primary Dx); Status post lumbar spinal fusion 05/27/2024 Travel 05/13/2024 Orders Only GENERIC EXTERNAL DATA DEPARTMENT Provider, Generic External Data 05/07/2024 Telephone [facility] [address] [place] [address] Elizabeth Dunn MD Med Refill 04/23/2024 Orders Only GENERIC EXTERNAL DATA DEPARTMENT Provider, Generic External Data 04/19/2024 Refill [facility] [address] [place] [address] Jessica Schafer MD Microcytic anemia 04/16/2024 Orders Only [facility] External Provider, [facility] 04/12/2024 Orders Only GENERIC EXTERNAL DATA DEPARTMENT Provider, Generic External Data 04/12/2024 Telephone [facility] [address] [place] [address] Elizabeth Dunn MD Prior Authorization ( PA: Charles) 04/07/2024 10:30 AM EST Office Visit [address] [id number] Elizabeth Dunn MD Chronic midline low back pain with left-sided sciatica (Primary Dx); Type 2 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 (CMS/HCC); Dietary counseling; Exercise counseling; Class 2 obesity without serious comorbidity with body mass index (BMI) of 35.0 to 35.9 in adult, unspecified obesity type; Encounter for immunization; Class 2 severe obesity with serious comorbidity and body mass index (BMI) of 35.0 to 35.9 in adult, unspecified obesity type (CMS/HCC) 04/07/2024 Travel from Last 3 Months Immunizations Name Administration Dates Next Due DT (pediatric) 07/20/2008 INFLUENZA VACCINE QUADRIVALE NT RECOMBINANT PRESERVATIVE FREE RIV4 03/02/2020 Influenza injectable quadriv alent IIV4 with preservative 03/31/2018,04/08/2017,02/27/2016 Influenza injectable quadriv alent preservative free 08/06/2023,04/21/2023,03/14/2021,06/14 Influenza, Split (incl. ray fied surface antigen) 03/11/2012 Influenza, seasonal, injecta ble, preservative free 04/07/2024,04/14/2014,02/27/2012 Moderna Covid-19 Vaccine 12+ 12/07/2021, 05/25/2021,09/15/2020,08/18 Moderna Covid-19 Vaccine 6+ Bivalent 08/02/2022 Pfizer Covid-19 Vaccine 12+ 04/07/2024 Pneumococcal Polysaccharide PPSV23 04/14/2014, TD (adult), 2 Lf tetanus tox oid, preservative free, adsorbed 06/09/2001 Tdap 12/23/2022,06/20/2011 Zoster, Recombinant 02/24/2023,12/23/2022 Social History Tobacco Use Types Packs/Day Years Used Date Smoking Tobacco: Never Passive Smoke Exposure: Never Smokeless Tobacco: Never Tobacco Cessation:Counseling Given: Not Answered Alcohol Use Standard Drinks/Week Comments Never 0 [...] Orientation Straight 03/11/2022 10 :14 AM EDT Last Filed Vital Signs Vital Sign Reading Time Taken Comments Blood Pressure 134/91 04/07/2024 10:30 AM EST Pulse 82 04/07/2024 10:30 AM EST Temperature 35.6 ??C (96.1 ??F) 04/07/2024 10:[address] Respiratory Rate 16 04/07/2024 10:30 AM EST Oxygen Saturation 93% 04/07/2024 10:30 AM EST Inhaled Oxygen Concentration - - Weight 98 kg (216 lb) 04/07/2024 10:30 AM EST Height 165.1 cm (5' 5 ) 04/07/2024 10:30 AM EST Body Mass Index 35.94 04/07/2024 10:30 AM EST Plan of Treatment Upcoming Encounters Date Type Department Care Team (Late st Contact Info) Description 07/15/2024 2:30 PM EST Telemedicine [facility] [address] [place] [address] Elizabeth Dunn MD [address] [place] [address] Health Maintenance Due Date Last Done Comments CT Colonography 1962 FIT DNA/Cologuard 1962 FIT 1962 FOBT 1962 Sigmoidoscopy 1962 Diabetes: Foot Exam 02/15/1972 Eye Exam 02/15/1972 Pap Smear 1983 Cervical Cancer Screening 02/15/1992 HPV/Cotest 02/15/1992 Pneumococcal Vaccine: 50+ Years (2 of 2 - PCV) 04/14/2015 04/14/2014, 03/12/2000 RSV Patients and Patients Aged 60 years or older (1 - Risk 60-74 years 1-dose series) 2022 Diabetes: Hemoglobin A1C 07/08/2024 024, 12/09/2023, 04/21/2023, Additional history exists Alcohol/Substance Use Screening 08/19/2024 08/20/2023 Depression Screening 08/19/2024 08/20/2023, 08/20/19 SDOH Screening 08/19/2024 08/20/2023 Diabetes: Urine Protein Screening 01/04/2025 01/05/2024, 05/31/2020 Lipid Panel 01/04/2025 01/05/2024, 05/31/2020 Mammogram 02/09/2025 02/10/2024, 1005/2023, 05/10/2022, Additional history exists Tobacco Screening 04/07/2025 04/07/2024 Colonoscopy 12/10/2025 12/10/2022 Colorectal Cancer Screening 12/10/2025 DTaP/Tdap/Td Vaccines (3 - Td or Tdap) 12/23/2032 12/23/2022, 06/20/2011, 06/09/2001 HIV Screening Completed 10/23/2020 Hepatitis C Screening Completed 10/23/2020 Zoster Vaccines Completed 02/24/2023, 12/23/2022 COVID-19 Vaccine Completed 04/07/2024, , 12/07/2021, Additional history exists Influenza Vaccine Completed 04/07/2024, , 04/21/2023, Additional history exists HIB Vaccines Aged Out No longer eligi [...] patient's age to complete this topic Meningococcal Vaccine Aged Out No hermelinda monica eligible based on patient's age to complete this topic RSV under 20 months Aged Out No longe r eligible based on patient's age to complete this topic Rotavirus Vaccines Aged Out No longer eligible based on patient's age to complete this topic Procedures Procedure Name Priority Date/Time Associated Diagnosis Comments XR FOOT 3+ VIEWS LEFT Routine 05/28/2024 11:00 AM EST CULTURE, URINE, ROUTINE Routine 05/13/2024 6:18 PM EST LIPASE Routine 05/13/2024 5:28 PM EST BASIC METABOLIC PANEL Routine 05/13/2024 5:28 PM EST HEPATIC FUNCTION PANEL Routine 05/13/2024 5:28 PM EST URINALYSIS, COMPLETE, WITH REFLEX TO CULTURE Routine 05/13/2024 5:28 PM EST CBC WITH AUTO DIFFERENTIAL Routine 05/13/2024 5:28 PM EST FL GUIDANCE IN OR Routine 04/23/2024 7:3 5 AM EST GLUCOSE, WHOLE BLOOD Routine 04/23/2024 6:40 AM EST US PELVIS TRANSVAGINAL Routine 04/16/2024 1:23 PM EST CULTURE, URINE, ROUTINE Routine 04/12/2024 9:19 AM EST POCT GLYCATED HEMOGLOBIN, TOTAL Routine 04/07/2024 10:35 AM EST Type 2 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 (CMS/HCC) POCT GLUCOSE Routine 04/07/2024 10:33 AM EST Type 2 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 (CMS/HCC) BI MAMMOGRAM DIAGNOSTIC TOMOSYNTHESIS BILATERAL Routine 02/10/2024 2:00 PM EDT ALBUMIN, RANDOM URINE W/CREATININE Routine 01/05/2024 8:25 AM EDT Type 2 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 (CMS/HCC) LIPID PANEL WITH REFLEX TO DIRECT LDL Routine 01/05/2024 8:22 AM EDT Type 2 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 (CMS/HCC) HM COLONOSCOPY Routine 12/10/2022 ZZZ HISTORICAL HEPATITIS C AB W/REFL TO HCV RNA, QN, PCR Routine 10/23/2020 10:08 AM EDT HIV 1/2 ANTIGEN/ANTIBODY, FOURTH GENERATION W/RFL Routine 10/23/2020 10:08 AM EDT from Last 3 Months or Most Recently Relevant to Health Maintenance Results * XR Foot 3+ Views Left (05/28/2024 11:00 AM EST) Anatomical Region Laterality Modality Lower Extremities, Foot Left Radiogra phic Imaging 05/28/2024 11:0 0 AM EST Narrative 05/31/2024 3:35 PM EST ? [facility] ?[address] ?[place] [address] ?XRay Report ? Signed ? Patient: Lelo Plata ?MR# ?? : [id number] ? : 1960 ?Acct:[id number] ? Age/Sex: 64 / F ?ADM Date: 05/28/24 ? Loc: HO.XRAY ? Attending Dr: Kimberly DELCID ? Ordering Physician: Kimberly Castrejon ?? Date of Service: 05/28/24 ?? Procedure(s): XR foot LT min 3V ?? Accession Number(s): [id number] ? cc: Elizabeth Dunn MD; Kimberly Castrejon ? EXAMINATION: ??XR FOOT 3 OR MORE VIEWS LEFT ? HISTORY: M79.672 - Pain in left foot ? COMPARISON: Comparison is made with the prior examination dated ?? 10/01/2022. ? FINDINGS: ? Three views of the left foot are submitted. ??The bones are osteopenic. ? There is no fracture or dislocation. ??There is mild narrowing of the ?? DIP and PIP joints. There is a small plantar calcaneal spur. ??The soft ?? tissues are unremarkable. ? XR/XR foot LT min 3V ?? IMPRESSION: ? Mild narrowing of the DIP and PIP joints. Small plantar calcaneal spur. ? Electronically signed by: ??Fracisco Dockery MD ??05/31/2024 03:32 PM EST ?? RP ? Dictated By: ?Fracisco Dockery MD ? Signed By: ?<Electronically signed by Fracisco Dockery MD in OV> ?05/31/24 1532 ? DD/ 1100 ? TD/TT: 05/28/24 1112 ? Manganese Wheeler: ? Procedure Note Donotuseinterpreter, Image - 05/31/[address] [address] XRay Report Signed Patient: Lelo Plata RMR# : [id number] : 1960cct:[id number] Age/Sex: 64 / FADM Date: 05/28/24 Loc: HO.XRAY Attending Dr: Kimberly DELCID Ordering Physician: Kimberly Castrejon Date of Service: 05/28/24 Procedure(s): XR foot LT min 3V Accession Number(s): [id number] cc: Elizabeth Dunn MD; Kimberly Castrejon EXAMINATION: XR FOOT 3 OR MORE VIEWS LEFT HISTORY: M79.672 - Pain in left foot COMPARISON: Comparison is made with the prior examination dated 10/01/2022. FINDINGS: Three views of the left foot are submitted. The bones are osteopenic. There is no fracture or dislocation. There is mild narrowing of the DIP and PIP joints. There is a small plantar calcaneal spur. The soft tissues are unremarkable. XR/XR foot LT min 3V IMPRESSION: Mild narrowing of the DIP and PIP joints. Small plantar calcaneal spur. Electronically signed by: Fracisco Dockery MD 05/31/2024 03:32 PM EST Dictated By: Fracisco Dockery MD Signed By: <Electronically signed by Fracisco Dockery MD in OV> 05/31/24 1532 DD/ 1100 TD/TT: 05/28/24 1112 Manganese Wheeler: [facility] External Provider IMG XR PROCEDURES Final Result * Culture, Urine, Routine (05/13/2024 6:18 PM EST) Only the most recent of2 resultswithin the time period is included. Urine Urine specimen obtained by clean catch procedure / Unknown 05/13/2024 6:18 PM EST 05/13/2024 6:20 PM EST Comment:UACC Narrative [facility] - 05/15/2024 9:56 AM EST Urine Culture Report Result Urine Culture 10,000 to 50,000 cfu/ml Urine Culture Mixed bacterial tri characteristic of Urine Culture urogenital contamination. Specimen Source: Urine clean catch us Generic External Data Provider LAB MICROBIOLOGY - GENERAL ORDERABLES Final Result Performing Organization Address City/[facility]/ZIP Co de Phone Number [facility] [address] [place] [phone] * (ABNORMAL) Urinalysis, Complete, with Reflex to Culture (05/13/2024 5:28 PM EST) Color Urine Yellow [facility] Appearance Urine Clear [facility] PH 5.0 5.0 - 9.0 [facility] Glucose Urine UA Negative Negative mg/dL [facility] Urine Blood Negative Negative [facility] Specific Severy - Urine >=1.030(H) 1.005 - 1.025 [facility] Urine Protein Negative Neg-Trace mg/dL [facility] Urine Ketones Trace Negative mg/dL [facility] Nitrite Urine Negative Negative [facility] Leukocyte Esterase Urine Trace(A) Negative [facility] RBC Urine 0-2 0 - 2 /HPF [facility] Urine WBC 6-10(A) 0 - 5 /HPF [facility] Urine Squamous Epithelial Cell 6-10 0 - 2 /HPF [facility] Urine Bacteria Trace None Seen [facility] Hyaline Casts, Urine 0-2 0 - 2 /LPF [facility] 05/13/2024 5:28 PM EST 05/13/2024 5:31 PM EST Narrative [facility] - 05/13/2024 6:14 PM EST [id number], Clean Catch us Generic External Data Provider LAB URINE ORDERAB LES Final Result [facility] [address] [place] [phone] * (ABNORMAL) CBC auto differential (05/13/2024 5:28 PM EST) White Blood Count 10.2 4.8 - 10.8 X10*3/uL [facility] Red Blood Count 4.64 4.20 - 5.50 X10*6/uL [facility] Hemoglobin 11.3(L) 12.0 - 16.0 g/dl [facility] Hematocrit 36.1(L) 37.0 - 47.0 % [facility] Mean Corpuscular Volume 77.8(L) 80.0 - 98.0 fL [facility] Mean Corpuscular Hemoglobin 24.4(L) 27.0 - 33.0 pg [facility] Mean Corpuscular HGB Conc 31.3 31.0 - 35.0 g/dl [facility] Red Cell Distribution Width 18.3(H) 11.0 - 16.0 % [facility] Platelet Count 294 160 - 400 X10*3/uL [facility] Mean Platelet Volume 9.8 9.4 - 12.3 fL [facility] Neutrophils Percent Auto 67.0 45 - 73 % [facility] Imm Gran Pct Auto 0.6(H) 0.0 - 0.4 % [facility] Lymphocytes Percent Auto 23.3 20 - 40 % [facility] Monocytes Percent Auto 7.2 2 - 11 % [facility] Eosinophils Percent Auto 1.7 0 - 4 % [facility] Basophils Percent Auto 0.2 0 - 2 % [facility] NRBC Pct Auto 0.0 0.0 - 0.2 /100WBC [facility] Neutrophils Absolute Auto 6.8 2.0 - 8.3 x10*3/uL [facility] Imm Gran Abs Auto 0.06(H) 0.00 - 0.03 X10*3/uL [facility] Lymphocytes Absolute Auto 2.4 1.2 - 4.9 X10*3/uL [facility] Monocytes Absolute Auto 0.7 0.1 - 1.2 X10*3/uL [facility] Eosinophils Absolute Auto 0.2 0.0 - 0.4 X10*3/uL [facility] Basophils Absolute Auto 0.0 0.0 - 0.2 X10*3/uL [facility] NRBC Abs Auto 0.000 0.0 - 0.012 X10*3/uL [facility] 05/13/2024 5:28 PM EST 05/13/2024 5:31 PM EST Generic External Data Provider LAB BLOOD ORDERAB LES Final Result Performing Organization Address [facility]/ZIP Co de Phone Number [facility] [address] [place] [phone] * Lipase (05/13/2024 5:28 PM EST) Lipase 34 8 - 78 U/L [facility] 05/13/2024 5:28 PM EST 05/13/2024 5:31 PM EST Generic External Data Provider LAB BLOOD ORDERAB LES Final Result Performing Organization Address [facility] Number [facility] [address] [place] [phone] * Hepatic Function Panel (05/13/2024 5:28 PM EST) Bilirubin, Total 0.1 0.0 - 1.0 mg/dL [facility] Bilirubin, Direct <0.2 0.0 - 0.5 mg/dL [facility] Aspartate Amino Transferase 22 5 - 31 U/L [facility] Comment:Slight Hemolysis.Int erpret result with caution. Alanine Aminotransferase 13 0 - 31 U/L [facility] Total Protein 7.5 6.5 - 8.0 g/dL [facility] Albumin Level 3.9 3.5 - 5.0 g/dL [facility] Alkaline Phosphatase 84 39 - 117 U/L [facility] 05/13/2024 5:28 PM EST 05/13/2024 5:31 PM EST us Generic External Data Provider LAB BLOOD ORDERAB LES Final Result [facility] [address] [place] [phone] [phone] * (ABNORMAL) Basic Metabolic Panel (05/13/2024 5:28 PM EST) Sodium 138 135 - 145 mmol/L [facility] Potassium 4.4 3.3 - 5.1 mmol/L [facility] Comment:Slight Hemolysis.Int erpret result with caution. Chloride 104 96 - 108 mmol/L [facility] Carbon Dioxide 26 22 - 29 mmol/L [facility] Anion Gap 12 12 - 20 [facility] Urea Nitrogen (BUN) 21(H) 9 - 16 mg/dL [facility] Creatinine, Serum 1.01 0.5 - 1.4 mg/dL [facility] Creatinine Clr Calc Pharmacy 65.9 [facility] Comment:Provided height and weight: 165.1 cm,95.254 kg.eGFR (calculated from the MDRD study equation) and eCrCl(calculated from the Cockcroft-Gault equation) are based ondifferent parameters and may not yield comparable results.If eCrCl result is absurd, please check patient'sheight/weight. Estimated Glomerular Filt Rate 56 [facility] Comment:Chronic Kidney Disea se: Estimated GFR < 60 mL/min/1.33f7Tdmeck Kidney Disease: Estimated GFR < 15 mL/min/1.73m2 Glucose 84 60 - 115 mg/dL [facility] Calcium 8.7 8.4 - 10.2 mg/dL [facility] 05/13/2024 5:28 PM EST 05/13/2024 5:31 PM EST us Generic External Data Provider LAB BLOOD ORDERAB LES Final Result [facility] [address] [place] [phone] * FL Guidance in OR (04/23/2024 7:35 AM EST) Anatomical Region Laterality Modality X-Ray Angiograph y 04/23/2024 7:35 AM EST Narrative 06/10/2024 7:43 AM EST ? [facility] ?[address] ?[place] [address] ? Fluoroscopy Report ? Signed ? Patient: Lelo Plata ?MR# ?? : [id number] ? : 1960 ?Acct:[id number] ? Age/Sex: 64 / F ?ADM Date: 04/23/24 ? Loc: HO.SSS ? Attending Dr: Joao Valentine MD ? Ordering Physician: Joao Valentine MD ?? Date of Service: 04/23/24 ?? Procedure(s): FL guidance in OR ?? Accession Number(s): [id number] ? cc: Elizabeth Dunn MD; Joao Valentine MD ? EXAMINATION: ?? FLUORO GUIDANCE IN OR ? CLINICAL INFORMATION: ?? Caudal epidural steroid injection. ? COMPARISON: ?? None available. ? TECHNIQUE: ?? Fluoroscopy supervised by: Dr. Joao Valentine. ?? Fluoroscopy time: 20 seconds. ?? Cumulative Dose: 7.5612 mGy. ?? DAP: 1.7207 Gy-cm2 (hitchcock-centimeter squared). ?? Images: 4. ? FINDINGS: ?? A needle overlies the sacrum and contrast is injected which appears to ?? be in the epidural space. Posterior pedicular screws and interbody ?? device present in the lower lumbosacral spine. ? FL/FL guidance in OR ?? IMPRESSION: ?? Fluoroscopy during procedure. Please see procedure report for ?? additional information. ? Electronically signed by: ??Neftali Moncada MD ??06/10/2024 07:41 AM EST ?? RP ? Dictated By: ?Neftali Moncada MD ? Signed By: ?<Electronically signed by Neftali Moncada MD in OV> ? 06/10/24 0741 ? DD/ 0735 ? TD/TT: 04/23/24 0758 ? Manganese Wheeler: SS ? Procedure Note Donotuseinterpreter, Image - 06/10/[address] [address] Fluoroscopy Report Signed Patient: Lelo Plata RMR# : [id number] : 1960cct:[id number] Age/Sex: 64 / FADM Date: 04/23/24 Loc: HO.SSS Attending Dr: Joao Valentine MD Ordering Physician: Joao Valentine MD Date of Service: 04/23/24 Procedure(s): FL guidance in OR Accession Number(s): [id number] cc: Elizabeth Dunn MD; Joao Valentine MD EXAMINATION: FLUORO GUIDANCE IN OR CLINICAL INFORMATION: Caudal epidural steroid injection. COMPARISON: None available. TECHNIQUE: Fluoroscopy supervised by: Dr. Joao Valentine. Fluoroscopy time: 20 seconds. Cumulative Dose: 7.5612 mGy. DAP: 1.7207 Gy-cm2 (hitchcock-centimeter squared). Images: 4. FINDINGS: A needle overlies the sacrum and contrast is injected which appears to be in the epidural space. Posterior pedicular screws and interbody device present in the lower lumbosacral spine. FL/FL guidance in OR IMPRESSION: Fluoroscopy during procedure. Please see procedure report for additional information. Electronically signed by: Neftali Moncada MD 06/10/2024 07:41 AM EST Dictated By: Neftali Moncada MD Signed By: <Electronically signed by Neftali Moncada MD in OV> 06/10/24 0741 DD/ 0735 TD/TT: 04/23/24 0758 Manganese Wheeler: [facility] External Provider IMG IR PROCEDURES Edited Result - Final * Glucose, Whole Blood (04/23/2024 6:40 AM EST) Glucose, Whole Blood 107 60 - 115 mg/dL [facility] Comment:METER #: [id number] 04/23/2024 6:40 AM EST 04/23/2024 6:43 AM EST us Generic External Data Provider LAB BLOOD ORDERAB LES Final Result [facility] [address] [facility] [place] [address] [phone] * US Pelvis Transvaginal (04/16/2024 1:23 PM EST) Anatomical Region Laterality Modality Pelvis Ultrasound 04/16/2024 1:23 PM EST Narrative 05/17/2024 7:34 AM EST ? [facility] ?[address] ?[place] [address] ? Ultrasound Report ? Signed ? Patient: Lelo Plata ?MR# ?? : [id number] ? : 1960 ?Acct:[id number] ? Age/Sex: 64 / F ?ADM Date: 04/16/24 ? Loc: HO.US ? Attending Dr: Reynaldo Jeffers MD ? Ordering Physician: Reynaldo Jeffers MD ?? Date of Service: 04/16/24 ?? Procedure(s): US pelvic and transvaginal ?? Accession Number(s): [id number] ? cc: Elizabeth Dunn MD; Reynaldo Jeffers MD ? EXAMINATION: ? US PELVIS ? CLINICAL INFORMATION: ? Pelvic and perineal pain, question cystectomy RIGHT, per patient half ?? of RIGHT ovary removed, status post hysterectomy per prior report of ?? 2016. ? COMPARISON: ?? Pelvic ultrasound 2016. ? TECHNIQUE: ?? Ultrasound of the pelvis is performed using both transabdominal and ?? transvaginal transducers along with Doppler. Transvaginal imaging is ?? performed due to inadequate visualization transabdominally. ? FINDINGS: ?? Limited visualization due to bowel gas and body habitus. ? The uterus is surgically absent. 0.5 x 0.4 cm echogenic focus with ?? shadowing in the vaginal cuff area. Ultrasound of 11/15/2014 ?? demonstrated a 0.5 x 0.2 x 0.4 cm echogenic focus in the vaginal cuff ?? region. ? Bilateral ovaries were not visualized. No significant free fluid. ? US/US pelvic and transvaginal ?? IMPRESSION: ? 1. Uterus surgically absent. Long vaginal stripe is visualized. ? 2. A 0.5 x 0.4 cm echogenic focus with shadowing in the vaginal cuff ?? area. Ultrasound of 11/15/2014 demonstrated a 0.5 x 0.2 x 0.4 cm ?? echogenic focus in the vaginal cuff region. ? 3. Bilateral ovaries were not visualized. ? Limited visualization due to bowel gas and body habitus. ? Electronically signed by: ??Hali Heredia MD ??05/17/2024 07:31 AM EST ? Dictated By: ?Hali Heredia MD ? Signed By: ?<Electronically signed by Hali Heredia MD in OV> ? 05/17/24 0731 ? DD/ 1323 ? TD/TT: 04/16/24 1343 ? Manganese Wheeler: ? Procedure Note Donchantel, Image - 05/17/2024 [place] [address] Ultrasound Report Signed Patient: Lelo Plata RMR# : [id number] : 2Acct:[id number] Age/Sex: 64 / FADM Date: 04/16/24 Loc: HO.US Attending Dr: Reynaldo Jeffers MD Ordering Physician: Reynaldo Jeffers MD Date of Service: 04/16/24 Procedure(s): US pelvic and transvaginal Accession Number(s): [id number] cc: Elizabeth Dunn MD; Reynaldo Jeffers MD EXAMINATION: US PELVIS CLINICAL INFORMATION: Pelvic and perineal pain, question cystectomy RIGHT, per patient half of RIGHT ovary removed, status post hysterectomy per prior report of 2016. COMPARISON: Pelvic ultrasound 2016. TECHNIQUE: Ultrasound of the pelvis is performed using both transabdominal and transvaginal transducers along with Doppler. Transvaginal imaging is performed due to inadequate visualization transabdominally. FINDINGS: Limited visualization due to bowel gas and body habitus. The uterus is surgically absent. 0.5 x 0.4 cm echogenic focus with shadowing in the vaginal cuff area. Ultrasound of 11/15/2014 demonstrated a 0.5 x 0.2 x 0.4 cm echogenic focus in the vaginal cuff region. Bilateral ovaries were not visualized. No significant free fluid. US/US pelvic and transvaginal IMPRESSION: 1. Uterus surgically absent. Long vaginal stripe is visualized. 2. A 0.5 x 0.4 cm echogenic focus with shadowing in the vaginal cuff area. Ultrasound of 11/15/2014 demonstrated a 0.5 x 0.2 x 0.4 cm echogenic focus in the vaginal cuff region. 3. Bilateral ovaries were not visualized. Limited visualization due to bowel gas and body habitus. Electronically signed by: Hali Heredia MD 05/17/2024 07:31 AM EST Dictated By: Hali Heredia MD Signed By: <Electronically signed by Hali Heredia MD in OV> 05/17/24 0731 DD/ 1323 TD/TT: 04/16/24 1343 Manganese Wheeler: [facility] External Provider IMG US PROCEDURES Edited Result - Final * (ABNORMAL) POCT HGB A1C (04/07/2024 10:35 AM EST) Hemoglobin A1C 6.6(A) 4.0 - 6.0 % QC Media Lot # [id number] Lot# Expiration Date 882,026 Blood 04/07/2024 10:3 5 AM EST Elizabeth Goncalves MD POINT OF CARE TEST EN TER/EDIT ORDERABLES Final Result * POCT Glucose (04/07/2024 10:33 AM EST) Glucose Blood, POC 106 60 - 200 mg/dL QC Media Lot # [id number] Lot# Expiration Date [id number] Blood Capillary blood specimen / Unknown 04/07/2024 10:33 AM EST us Elizabeth Goncalves MD POINT OF CARE TEST EN TER/EDIT ORDERABLES Final Result * BI Mammogram Diagnostic Tomosynthesis Bilateral (02/10/2024 2:00 PM EDT) Anatomical Region Laterality Modality Breast Bilateral Mammography 02/10/2024 2:00 PM EDT Narrative 02/10/2024 5:26 PM EDT ? [facility] ? [address] ?[place], [place] [address] ? Mammography Report ? Signed ? Patient: Lelo Watters ?MR#: ?? [id number] ? : 1960 ?Acct:[id number] ? Age/Sex: 63 / F ?ADM Date: 02/10/24 ? Loc: HO.MAMMO ? Attending Dr: Elizabeth Goncalves MD ? Ordering Physician: Elizabeth Dunn MD ?Results: ?? 1Negative ? Date of Service: 02/10/24 ?Follow Up: 1 Year From Orig ?? inal Mammogram ? Procedure(s): MM tomosynthesis diagnostic BI ?? Accession Number(s): [id number] ? cc: Elizabeth Dunn MD ? EXAMINATION: ?? MM DIAGNOSTIC DIGITAL BREAST TOMOSYNTHESIS, BILATERAL ?? US BREAST LIMITED, RIGHT ? MAMMOGRAPHY: ?? CLINICAL INFORMATION: ? Diagnostic exam the right breast pain lower outer quadrant radiating to ?? nipple. Patient also due for yearly. ? COMPARISON: ?? Mammography: 05/10/2022, 05/09/2021 03/21/2020, and more remote exams. ? TECHNIQUE: ?? Digital breast tomosynthesis is performed in both the craniocaudal and ?? mediolateral oblique views along with computer-aided detection (CAD). ?? Synthesized 2D images are generated from the tomosynthesis. ? FINDINGS: ?? The breasts are almost entirely fatty (ACR BI-RADS breast composition ?? Category a). ? There are no suspicious masses, suspicious grouped calcifications, or ?? areas of architectural distortion in either breast. The parenchymal ?? pattern is stable from prior exams. There is no skin or axillary ?? abnormality. ? There is no mammographic correlate to the region of breast pain lower ?? outer quadrant. ? ULTRASOUND: ?? CLINICAL INFORMATION: ?? As above. ? COMPARISON: ?? None relevant. ? TECHNIQUE: ?? Targeted sonographic evaluation right breast was performed using a high ?? frequency linear transducer. ??Attention was given to the lower outer ?? quadrant, to include the area of breast pain. Selected archived ?? documentation. ? FINDINGS: ? RIGHT BREAST: There is predominantly fatty breast tissue. No suspicious ?? mass is seen. ??There is no pathologic acoustic shadowing. No cystic ?? abnormalities. No architectural abnormality. ? There is no sonographic correlate to the region of right breast pain ?? lower outer quadrant. ? MM/MM tomosynthesis diagnostic BI ?? IMPRESSION: ?? There are no findings suspicious for malignancy in either breast. ? Region of right breast pain lower outer quadrant shows no mammographic ?? or sonographic correlate. Recommend clinical management and follow-up. ? Otherwise, recommend the patient return to routine annual screening. ? OVERALL ASSESSMENT: ?? Mammography: BI-RADS 1 - Negative ?? Ultrasound: BI-RADS 1 - Negative ? RECOMMENDATION: ?? 1. Patient should be managed based on the clinical impression. ?2. ?? Otherwise, routine annual screening mammography. ? This patient's information was entered into a reminder system with a ?? target due date for their next mammogram. ? Electronically signed by: ??Kory Johnson MD ??02/10/2024 05:24 PM EDT RP ? Dictated By: ?Kory Johnson MD ? Signed By: ?<Electronically signed by Kory Johnson MD in OV> ?02/10/244 ? DD/ 1400 ? TD/TT: 02/10/24 1410 ? Manganese Wheeler: ? Procedure Note Donotuseinterpreter, Image - 02/10/2024 [place] [facility] [address] [place] [address] Mammography Report Signed Patient: Lelo Watters RMR#: [id number] : 1960cct:[id number] Age/Sex: 63 / FADM Date: 02/10/24 Loc: HO.MAMMO Attending Dr: Elizabeth Goncalves MD Ordering Physician: Elizabeth Dunn MDResults: 1Negative Date of Service: 02/10/24Follow Up: 1 Year From Orig ina Mammogram Procedure(s): MM tomosynthesis diagnostic BI Accession Number(s): [id number] cc: Elizabeth Dunn MD EXAMINATION: MM DIAGNOSTIC DIGITAL BREAST TOMOSYNTHESIS, BILATERAL US BREAST LIMITED, RIGHT MAMMOGRAPHY: CLINICAL INFORMATION: Diagnostic exam the right breast pain lower outer quadrant radiating to nipple. Patient also due for yearly. COMPARISON: Mammography: 05/10/2022, 05/09/2021 03/21/2020, and more remote exams. TECHNIQUE: Digital breast tomosynthesis is performed in both the craniocaudal and mediolateral oblique views along with computer-aided detection (CAD). Synthesized 2D images are generated from the tomosynthesis. FINDINGS: The breasts are almost entirely fatty (ACR BI-RADS breast composition Category a). There are no suspicious masses, suspicious grouped calcifications, or areas of architectural distortion in either breast. The parenchymal pattern is stable from prior exams. There is no skin or axillary abnormality. There is no mammographic correlate to the region of breast pain lower outer quadrant. ULTRASOUND: CLINICAL INFORMATION: As above. COMPARISON: None relevant. TECHNIQUE: Targeted sonographic evaluation right breast was performed using a high frequency linear transducer. Attention was given to the lower outer quadrant, to include the area of breast pain. Selected archived documentation. FINDINGS: RIGHT BREAST: There is predominantly fatty breast tissue. No suspicious mass is seen. There is no pathologic acoustic shadowing. No cystic abnormalities. No architectural abnormality. There is no sonographic correlate to the region of right breast pain lower outer quadrant. MM/MM tomosynthesis diagnostic BI IMPRESSION: There are no findings suspicious for malignancy in either breast. Region of right breast pain lower outer quadrant shows no mammographic or sonographic correlate. Recommend clinical management and follow-up. Otherwise, recommend the patient return to routine annual screening. OVERALL ASSESSMENT: Mammography: BI-RADS 1 - Negative Ultrasound: BI-RADS 1 - Negative RECOMMENDATION: 1. Patient should be managed based on the clinical impression. 2. Otherwise, routine annual screening mammography. This patient's information was entered into a reminder system with a target due date for their next mammogram. Electronically signed by: Kory Johnson MD 02/10/2024 05:24 PM EDT Dictated By: Kory Johnson MD Signed By: <Electronically signed by Kory Johnson MD in OV> 02/10/24 1724 DD/ 1400 TD/TT: 02/10/24 1410 Manganese Wheeler: Elizabeth Goncalves MD IMG BI PROCEDURES Patrick wendie Result - Final * Albumin, Random Urine W/Creatinine (01/05/2024 8:25 AM EDT) Creatinine, Urine 223.33 mg/dL [facility] Microalbumin Urine 9.0 mg/L [facility] Microalbum Creatinine Ratio Ur 4.0 <30 ug/mg cr [facility] Comment:Albumin/Creatinine R atio Reference Ranges: Normal: < 30 ug/mg creatinine Microalbuminuria: 30 - 300 ug/mg creatinineClinical Albuminuria: > 300 ug/mg creatinine Urine (Urine, Random) 01/05/2024 8:25 AM EDT 01/05/2024 11:48 AM EDT us Elizabeth Goncalves MD LAB URINE ORDERABLES Final Result Performing Organization Address [facility] Co de Phone Number [facility] [address] [place] [phone] [phone] * (ABNORMAL) Lipid Panel with Reflex to Direct LDL (01/05/2024 8:22 AM EDT) Triglycerides 180(H) <150 mg/dL [facility] Comment:Desirable Triglyceri de: less than 150 mg/dLBorderline High Triglyceride 150-199 mg/dLHigh Triglyceride: 200-499 mg/dLVery High Triglyceride: greater than or equal to 5OO mg/dL Cholesterol 240(H) <200 mg/dL [facility] Comment:Desirable Cholestero l: less than 200 mg/dLBorderline High Cholesterol: 200-239 mg/dLHigh Cholesterol: greater than 239 mg/dL LDL Cholesterol Calculated 138(H) <100 mg/dL [facility] Comment:Desirable LDL: less than 100 mg/dLNear Optimal/Above Optimal LDL: 110- 129 mg/dLBorderline High LDL: 130-159 mg/dLHigh LDL: 160-189 mg/dLVery High LDL: greater than or equal to 190 mg/dL HDL Cholesterol 66 >40 mg/dL [facility] Comment:Desirable HDL: great er than 40 mg/dL Note: This HDL assay may give artificially low results in patients with liver disease. Blood 01/05/2024 8:22 AM EDT 01/05/2024 11:52 AM EDT us Elizabeth Goncalves MD LAB BLOOD ORDERABLES Final Result Performing Organization Address [facility] Co de Phone Number [facility] [address] [place] [address] [phone] * Hm Colonoscopy (12/10/2022) Historical Provider HEALTH MAINTENANCE Final Result * HEPATITIS C AB W/REFL TO HCV RNA, QN, PCR (10/23/2020 10:08 AM EDT) HEPATITIS C ANTIBODY NON-REACT JOSE NON-REACT JOSE [facility] INDEX 0.01 <1.00 [facility] Comment: ?? HCV antibody was non-reactive. There is no laboratory ?? evidence of HCV infection. ?? In most cases, no further action is required. However, if recent HCV exposure is suspected, a test for HCV RNA (test code 82981) is suggested. ?? For additional information please refer to http://[employer]/faq/BNE63n4 (This link is being provided for informational/ educational purposes only.) ?? 10/23/2020 10:0 8 AM EDT Elizabeth Goncalves MD HISTORICAL/NON ORDERA BLE LABS Final Result [facility] [address] * HIV 1/2 ANTIGEN/ANTIBODY,FOURTH GENERATION W/RFL (10/23/2020 10:08 AM EDT) Pathologist [facility] HIV-1/2 ANTIGEN AND ANTIBODIES, 4TH GENERATION W/ REFLEX NON-REACT JOSE NON-REACT JOSE [facility] Comment: HIV-1 antigen and HIV-1/HIV-2 antibodies were not detected. There is no laboratory evidence of HIV infection. ?? PLEASE NOTE: This information has been disclosed to you from records whose confidentiality may be protected by state law. ??If your state requires such protection, then the state law prohibits you from making any further disclosure of the information without the specific written consent of the person to whom it pertains, or as otherwise permitted by law. A general authorization for the release of medical or other information is NOT sufficient for this purpose. ? For additional information please refer to http://[employer]/faq/TCG469 (This link is being provided for informational/ educational purposes only.) ? The performance of this assay has not been clinically validated in patients less than 2 years old. ?? 10/23/2020 10:0 8 AM EDT Elizabeth Goncalves MD LAB BLOOD ORDERABLES Final Result [facility] [address] from Last 3 Months or Most Recently Relevant to Health Maintenance [place] [address] [place] [address] C3 Care Teams Wreath Inspector Relationship Specialty Start Date End Date Elizabeth Dunn MD [address] [place] [address] PCP - General Family Medicine 03/17/18 Thao Barnhart Gas Welder ApprenticeField Technical Support Consultant 02/07/23
--- OUTSIDE RECORDS SUMMARY | 2024-07-01 20:29 | XMS_ITS | Encounter Summary ---
Author Organization [employer] [facility] Address [address] [place] [address] 7t [place] [address] Care Team Providers Care Psychiatric Aide Name Role Phone Elizabeth Dunn MD Primary Care Provide r Encounter Details Date Type Department Care Team (Late Contact Info) Description 01/29/2023 Orders Only [facility] MEDICINE [address] [place] [address] [phone] Provider, MD Hector Social History Tobacco Use Types Packs/Day Years Used Date Smoking Tobacco: Never Passive Smoke Exposure: Never Smokeless Tobacco: Never Alcohol Use Standard Drinks/Week Comments Never 0 (1 standard drink = 0.6 oz pur e alcohol) Depression Answer Date Recorded Patient Health Questionnaire-9 Score 0 08/02/2022 Depression Answer Date Recorded Patient Health Questionnaire-2 Score 0 08/02/2022 Comments Unknown Sex and Gender Information Value Date Recorded Sex Assigned at Female 03/11/2022 10:14 AM EDT Legal Sex Female 10:14 AM EDT Gender Identity Female 03/11/2022 10:14 AM EDT Sexual Orientation Straight 03/11/2022 10 :14 AM EDT documented as of this encounter Plan of Treatment Upcoming Encounters Date Type Department Care Team (Late Contact Info) Description 07/15/2024 2:30 PM EST Telemedicine [facility] MEDICINE [address] [place] [address] [phone] Elizabeth Dunn MD [address] [place] [address] [phone] documented as of this encounter Procedures Procedure Name Priority Date/Time Associated Diagnosis Comments COLONOSCOPY Routine 12/10/2022 documented in this encounter Results * Colonoscopy (12/10/2022) us Historical Provider HEALTH MAINTENANCE Final Result documented in this encounter Visit Diagnoses Not on filedocumented in this encounter Additional Health Concerns Assessment Noted Time PHQ-9 Depression Total Score: 0 08/03/19 23 3:13 PM EDT documented as of this encounter Care Teams Psychiatric Aide Relationship Specialty Start Date End Date Elizabeth Dunn MD [address] [place] [address] PCP - General Family Medicine 03/17/18 Thao Barnhart Color Maker FormulatorCryptologic Support Specialist 02/07/23 documented as of this encounter
--- OUTSIDE RECORDS SUMMARY | 2024-07-01 20:29 | XMS_ITS | Encounter Summary ---
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 Next appointment 07/15/24. 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
--- OUTSIDE RECORDS SUMMARY | 2024-07-01 20:29 | XMS_ITS | Encounter Summary ---
Author Organization [employer] Address [address] [facility] 7t [place] [address] Care Team Providers Care Hydraulic Rubbish Compactor Mechanic Name Role Phone Elizabeth Dunn MD Primary Care Provide r Reason for Visit * Reason Onset Date Comments Med Refill 05/07/2024 Encounter Details Date Type Department Care Team ([facility] st Contact Info) Description 05/07/2024 Telephone [facility]INE [address] [place] [address] Elizabeth Dunn MD [address] [place] [address] Med Refill Social History Tobacco Use Types Packs/Day Years [...] Telephone Encounter - Sol Marinelli LPN - 05/07/2024 2:02 PM EST CARD FILER checked 05/07/24 patient should have 1 refill left. * Telephone Encounter - Carmella Jonas - 05/07/2024 1:54 PM EST TC from pt requesting medication refill. Medications needing refill : gabapentin (Neurontin) 600 MG tablet To be sent to: [facility]/pharmacy #[id number] documented in this encounter Plan of Treatment Upcoming Encounters Date Type Department Care Team (Late st Contact Info) Description 07/15/2024 2:30 PM EST Telemedicine [facility] MEDICINE [address] [place] [address] Elizabeth Dunn MD [address] [place] [address] documented as of this encounter Visit Diagnoses Not on filedocumented in this encounter Additional Health Concerns Assessment Noted Time PHQ-9 Depression Total Score: 0 08/20/19 24 2:32 PM EDT documented as of this encounter Care Teams Hydraulic Rubbish Compactor Mechanic Relationship Specialty Start Date End Date Elizabeth Dunn MD [address] [place] [address] PCP - General Family Medicine 03/17/18 Thao Barnhart Chilling Hood OperatorFabric Finisher 02/07/23 documented as of this encounter
--- OUTSIDE RECORDS SUMMARY | 2024-07-01 20:29 | XMS_ITS | Encounter Summary ---
Author Organization [employer] Address 75 [facility] 7t [place] [address] Care Team Providers Care Pediatric Physician Name Role Phone Elizabeth Dunn MD Primary Care Provide r Reason for Visit * Reason Onset Date Comments Med Refill 06/21/2024 Encounter Details Date Type Department Care Team ([facility] st Contact Info) Description 06/21/2024 Telephone [facility] MEDICINE [address] [place] [address] Elizabeth Dunn MD [address] [place] [address] Med Refill Social History Tobacco Use Types [...] Marinelli LPN - 06/21/2024 11:13 AM EST Medication pended to PCP. * Telephone Encounter - Wander Ruiz - 06/21/2024 11:05 AM EST TC from pt requesting medication refill. Medications needing refill : gabapentin (Neurontin) 600 MG tablet methocarbamol (Robaxin) 500 MG tablet To be sent to: [facility]/pharmacy #[id number] documented in this encounter Plan of Treatment Upcoming Encounters Date Type Department Care Team (Late st Contact Info) Description 07/15/2024 2:30 PM EST Telemedicine [facility] MEDICINE [address] [place] [address] Elizabeth Dunn MD [address] [place] [address] documented as of this encounter Visit Diagnoses Not on filedocumented in this encounter Additional Health Concerns Assessment Noted Time PHQ-9 Depression Total Score: 0 08/20/19 24 2:32 PM EDT documented as of this encounter Care Teams Pediatric Physician Relationship Specialty Start Date End Date Elizabeth Dunn MD [address] [place] [address] PCP - General Family Medicine 03/17/18 Thao Barnhart Sports Equipment RepairerCath Lab Radiological Technologist 02/07/23 documented as of this encounter
--- OUTSIDE RECORDS SUMMARY | 2024-07-01 20:29 | XMS_ITS | Encounter Summary ---
Author Organization [employer] Address [address] [place] [address] 7 [place] [address] Care Team Providers Care Etymology Teacher Name Role Phone Elizabeth Dunn MD Primary Care Provide r Reason for Visit * Reason Onset Date Comments Med Refill 12/17/2022 Encounter Details Date Type Department Care Team ([facility] st Contact Info) Description 12/17/2022 Telephone [facility] MEDICINE [address] [place] [address] Elizabeth Dunn MD [address] [place] [address] Med Refill Social History Tobacco Use Types [...] encounter Miscellaneous Notes * Telephone Encounter - Sayda Melendez - 12/17/2022 1:18 PM EDT Tc from pt requesting medication refill on oxyCODONE-acetaminophen (Percocet) 10-325 MG tablet documented in this encounter Plan of Treatment Upcoming Encounters Date Type Department Care Team (Late st Contact Info) Description 07/15/2024 2:30 PM EST Telemedicine [facility] MEDICINE [address] [place], [place] [phone] Elizabeth Dunn MD [address] [place], [place] [phone] documented as of this encounter Visit Diagnoses Not on filedocumented in this encounter Additional Health Concerns Assessment Noted Time PHQ-9 Depression Total Score: 0 08/03/19 23 3:13 PM EDT documented as of this encounter Care Teams Etymology Teacher Relationship Specialty Start Date End Date Elizabeth Dunn MD [address] [place] [address] PCP - General Family Medicine 03/17/18 Thao Barnhart Order Picker/AssemblerTechnical Internship 02/07/23 documented as of this encounter
--- OUTSIDE RECORDS SUMMARY | 2024-07-01 20:29 | XMS_ITS | Encounter Summary ---
Author Organization [employer] Address [address] [place] [address] 7t [place] [address] Care Team Providers Care Combined Rail Operator Name Role Phone Elizabeth Dunn MD Primary Care Provide r Reason for Visit * Reason Onset Date Comments Med Refill 12/04/2022 Encounter Details Date Type Department Care Team ([facility] st Contact Info) Description 12/04/2022 Telephone [facility] MEDICINE [address] [place] [address] Elizabeth Dunn MD [address] [place] [address] Med Refill Social History Tobacco Use Types [...] * Telephone Encounter - Sayda Melendez - 12/04/2022 9:55 AM EDT Tc from pt requesting medication refill on oxyCODONE-acetaminophen (Percocet) 10-325 MG tablet documented in this encounter Plan of Treatment Upcoming Encounters Date Type Department Care Team (Late st Contact Info) Description 07/15/2024 2:30 PM EST Telemedicine [facility] MEDICINE [address] [place], [place] [phone] Elizabeth Dunn MD [address] [place], [place] [phone] documented as of this encounter Visit Diagnoses Not on filedocumented in this encounter Additional Health Concerns Assessment Noted Time PHQ-9 Depression Total Score: 0 08/03/19 23 3:13 PM EDT documented as of this encounter Care Teams Combined Rail Operator Relationship Specialty Start Date End Date Elizabeth Dunn MD [address] [place] [address] PCP - General Family Medicine 03/17/18 Thao Barnhart Farmworker GeneralWeb Applications Programmer 02/07/23 documented as of this encounter
--- OUTSIDE RECORDS SUMMARY | 2024-07-01 20:29 | XMS_ITS | Encounter Summary ---
Author Organization [employer] Address [address] [facility] 7t [place] [address] Care Team Providers Care Vector Control Assistant Name Role Phone Elizabeth Dunn MD Primary Care Provide r Encounter Details Date Type Department Care Team ([facility] st Contact Info) Description 08/29/2023 Telephone [facility] MEDICINE [address] [place] [address] Elizabeth Dunn MD [address] [place] [address] Social History Tobacco Use Types Packs/Day Years [...] encounter Miscellaneous Notes * Telephone Encounter - Iva Pisano RN - 09/04/2023 10:30 AM EDT Referral faxed to [facility] requesting increase in MANAGER OF OPERATIONS hours due to change in condition. * Telephone Encounter - Iva Pisano RN - 08/29/2023 4:18 PM EDT Paperwork sent to Provider for signature to increase MANAGER OF OPERATIONS hours due to patient's condition change after Lumbar fusion procedure. Needs more assistance with ADL's. Once provider signs form I will fax to [employer]. documented in this encounter Plan of Treatment Upcoming Encounters Date Type Department Care Team (Late st Contact Info) Description 07/15/2024 2:30 PM EST Telemedicine [facility] MEDICINE [address] [place], [place] [phone] Elizabeth Dunn MD [address] [place] [address] documented as of this encounter Visit Diagnoses Not on filedocumented in this encounter Additional Health Concerns Assessment Noted Time PHQ-9 Depression Total Score: 0 08/20/19 24 2:32 PM EDT documented as of this encounter Care Teams Vector Control Assistant Relationship Specialty Start Date End Date Elizabeth Dunn MD [address] [place] [address] PCP - General Family Medicine 03/17/18 Thao Barnhart Income Tax ManagerAuto Hauler 02/07/23 documented as of this encounter
--- OUTSIDE RECORDS SUMMARY | 2024-07-01 20:29 | XMS_ITS | Encounter Summary ---
Author Organization [employer] Address [address] [facility] 7t [place] [address] Care Team Providers Care Abstract Checker Name Role Phone Elizabeth Dunn MD Primary Care Provide r Reason for Visit * Reason Onset Date Comments Med Refill 11/20/2022 Encounter Details Date Type Department Care Team ([facility] st Contact Info) Description 11/20/2022 Telephone [facility] MEDICINE [address] [place] [address] Elizabeth Dunn MD [address] [place] [address] Med Refill Social History Tobacco Use Types [...] encounter Miscellaneous Notes * Telephone Encounter - Sorin Chaudhry - 11/20/2022 8:28 AM EDT Tc from pt requesting a refill for oxycodone 10 mg documented in this encounter Plan of Treatment Upcoming Encounters Date Type Department Care Team (Late st Contact Info) Description 07/15/2024 2:30 PM EST Telemedicine [facility] MEDICINE [address] [place] [address] Elizabeth Dunn MD [address] [place] [address] documented as of this encounter Visit Diagnoses Not on filedocumented in this encounter Additional Health Concerns Assessment Noted Time PHQ-9 Depression Total Score: 0 08/03/19 23 3:13 PM EDT documented as of this encounter Care Teams Abstract Checker Relationship Specialty Start Date End Date Elizabeth Dunn MD [address] [place], [place] [phone] PCP - General Family Medicine 03/17/18 Thao Barnhart Network ArchitectLong Wall Shear Operator 02/07/23 documented as of this encounter
--- OUTSIDE RECORDS SUMMARY | 2024-07-01 20:29 | XMS_ITS | Encounter Summary ---
Author Organization [employer] Address [address] [facility] 7t [place] [address] Care Team Providers Care Barrel Repairer Name Role Phone Elizabeth Dunn MD Primary Care Provide r Reason for Visit * Reason Onset Date Comments Med Refill 01/07/2023 Encounter Details Date Type Department Care Team ([facility] st Contact Info) Description 01/07/2023 Telephone [facility] MEDICINE [address] [place] [address] Elizabeth Dunn MD [address] [place] [address] Med Refill Social History Tobacco Use Types [...] encounter Miscellaneous Notes * Telephone Encounter - Tami Waters RN - 01/07/2023 9:11 AM EDT Per provider, this medication is discontinued. Pcp reports this has been discussed with patient. * Telephone Encounter - Sorin Chaudhry - 01/07/2023 8:42 AM EDT Tc from pt requesting a refill for oxyCODONE-acetaminophen (Percocet) 10-325 MG tablet documented in this encounter Plan of Treatment Upcoming Encounters Date Type Department Care Team (Late st Contact Info) Description 07/15/2024 2:30 PM EST Telemedicine [facility] MEDICINE [address] [place] [address] Elizabeth Dunn MD [address] [place] [address] documented as of this encounter Visit Diagnoses Not on filedocumented in this encounter Additional Health Concerns Assessment Noted Time PHQ-9 Depression Total Score: 0 08/03/19 23 3:13 PM EDT documented as of this encounter Care Teams Barrel Repairer Relationship Specialty Start Date End Date Elizabeth Dunn MD [address] [place] [address] PCP - General Family Medicine 03/17/18 Thao Barnhart Press LoaderNews Copy Editor 02/07/23 documented as of this encounter
== END 2024-07-01 20:28 | disposition left against medical advice (07) ==
PROVIDERS: Registered Nurse Emergency; Emergency Provider Emergency Medicine
DX: R05.9 Cough, unspecified (principal); B97.4 Respiratory syncytial virus as the cause of diseases classified elsewhere; Z03.818 Encounter for observation for suspected exposure to other biological agents ruled out
CPT/HCPCS: 0241U; 71046; 80053; 85025; 99281; 99283

== ENCOUNTER → 2024-07-01 15:27 | Outpatient (BNV) | payer MEDICAID, SELFPAY | PROVIDERS: Visit Provider Radiology Diagnostic Radiology | DX: R05.9 Cough, unspecified (principal) | CPT/HCPCS: 71046 ==

== ENCOUNTER 2024-07-08 07:48 | Outpatient (AMB) | payer MEDICAID, SELFPAY ==
--- OUTSIDE RECORDS SUMMARY | 2024-07-08 07:50 | XMS_ITS | Encounter Summary ---
Author Organization [employer] Address [address] [facility] 7t [place] [address] Care Team Providers Care Ships Or Barges Loader Name Role Phone Elizabeth Dunn MD Primary Care Provide r Encounter Details Date Type Department Care Team (Late st Contact Info) Description 03/26/2024 Orders Only [facility] MEDICINE [address] [place] [address] Elizabeth Dunn MD [address] [place] [address] Social History Tobacco Use Types Packs/Day Years [...] Contact Info) Description 07/15/2024 2:30 PM EST Office Visit [facility] MEDICINE [address] [place] [address] Elizabeth Dunn MD [address] [place] [address] documented as of this encounter Visit Diagnoses Not on filedocumented in this encounter Additional Health Concerns Assessment Noted Time PHQ-9 Depression Total Score: 0 08/20/19 24 2:32 PM EDT documented as of this encounter Care Teams Ships Or Barges Loader Relationship Specialty Start Date End Date Elizabeth Dunn MD [address] [place] [address] PCP - General Family Medicine 03/17/18 Thao Barnhart Swimming Pool ServicerCommunication Instructor 02/07/23 documented as of this encounter
--- OUTSIDE RECORDS SUMMARY | 2024-07-08 07:50 | XMS_ITS | Encounter Summary ---
Author Organization [employer] Address [address] [facility] 7t [place] [address] Care Team Providers Care Tree Fruit And Nut Crops Farmer Name Role Phone Elizabeth Dunn MD Primary Care Provide r Reason for Visit * Reason Onset Date Comments Med Refill 07/05/2024 Encounter Details Date Type Department Care Team ([facility] st Contact Info) Description 07/05/2024 Refill [facility] MEDICINE [address] [place] [address] Elizabeth Dunn MD [address] [place] [address] Class 2 severe obesity with serious comorbidity and body mass index (BMI) of 35.0 to 35.9 in adult, unspecified obesity type (CMS/HCC) Social History Tobacco Use Types Packs/Day Years [...] as of this encounter Miscellaneous Notes * Addendum Note - Dorothy Londono RN - 07/05/2024 10:23 AM ESTAddended by: DOROTHY LONDONO on: 07/05/2024 10:23 AM Modules accepted: Orders * Telephone Encounter - Trish Buenrostro - 07/05/2024 10:07 AM EST Pt walked in requesting refill be sent mike for zepbound as she is due for it tmr and does not haveany left. documented in this encounter Plan of Treatment Upcoming Encounters Date Type Department Care Team (Late st Contact Info) Description 07/15/2024 2:30 PM EST Office Visit [facility] MEDICINE [address] [place] [address] Elizabeth Dunn MD [address] [place] [address] documented as of this encounter Visit Diagnoses Diagnosis Class 2 severe obesity with serious comorbidity and body mass index (BMI) of 35.0 to 35.9 in adult, unspecified obesity type (CMS/HCC) documented in this encounter Additional Health Concerns Assessment Noted Time PHQ-9 Depression Total Score: 0 08/20/19 24 2:32 PM EDT documented as of this encounter Care Teams Tree Fruit And Nut Crops Farmer Relationship Specialty Start Date End Date Elizabeth Dunn MD [address] [place] [address] PCP - General Family Medicine 03/17/18 Thao Barnhart Wafer Machine OperatorWad Impregnator 02/07/23 documented as of this encounter
--- OUTSIDE RECORDS SUMMARY | 2024-07-08 07:50 | XMS_ITS | Clinical Summary ---
Author Organization [facility], Address [address] [place] [address] Phone Care Team Providers Care Refinish Technician Name Role Phone Elizabeth Dunn MD Primary [...] ID:Not on file Type:Not on file Address: [place] [phone] MEDICAID [place] Care Teams Refinish Technician Relationship Specialty Start Date End Date Elizabeth Dunn MD [address] [place] [phone] PCP - General Internal Medicine 11/17/20
--- OUTSIDE RECORDS SUMMARY | 2024-07-08 07:50 | XMS_ITS | Clinical Summary ---
Author Organization [employer] Address [address] [facility] [facility] [address] [place] [address] Care Team Providers Care Turbogenerator Operator Name Role Phone Elizabeth Dunn MD [...] the morning. 30 tablet 11 07/15/19 24 2024 Active oxyCODONE (Roxicodone) 5 MG immediate release [...] within 12 hours or as directed by . 30 patch 1 01/07/20 24 Active acetaminophen [...] OR SPLIT. 90 tablet 04/20/20 24 Active gabapentin (Neurontin) 600 MG tabletIndications :S/P [...] MUSCLE SPASMS 168 tablet 06/21/19 25 Active Tirzepatide-Weigh t Management (Zepbound) 2.5 MG/0.5ML solution auto-injectorIndi cations:Class 2 severe obesity with serious comorbidity and body mass index (BMI) of 35.0 to 35.9 in adult, unspecified obesity type (CMS/HCC) Inject 0.5 mL (2.5 mg) under the skin 1 (one) time per week. 2 mL 07/05/19 25 Active gabapentin (Neurontin) 600 MG tabletIndications :S/P lumbar fusion,Chronic bilateral low back pain with left-sided sciatica Take 1 tablet (600 mg) by mouth 3 times daily. 90 tablet 2 01/07/20 24 2024 Discontinued methocarbamol (Robaxin) 500 MG tabletIndications :Chronic midline low back pain with left-sided sciatica Take 2 tablets (1,000 mg) by mouth every 8 (eight) hours if needed for muscle spasms for up to 28 days. 168 tablet 04/07/20 24 2024 Discontinued acetaminophen (Tylenol 8 Hour) 650 MG ER tabletIndications :Status post lumbar spinal fusion Take 2 tablets (1,300 mg) by mouth every 8 (eight) hours if needed for mild pain for up to 20 days. Do not crush, chew, or split. 40 tablet 2 05/27/19 25 2024 Tirzepatide-Weigh t Management (Zepbound) 2.5 MG/0.5ML solution auto-injectorIndi cations:Class 2 severe obesity with serious comorbidity and body mass index (BMI) of 35.0 to 35.9 in adult, unspecified obesity type (CMS/HCC) Inject 0.5 mL (2.5 mg) under the skin 1 (one) time per week. 2 mL 05/27/19 25 2024 Discontinued(R eorder (will not trigger notification to Pharmacy)) Active Problems Problem Noted Date Diagnosed Date [...] left foot, she is being manage by pain/pet nutrition specialist (medications prescribed by specialist only) Chronic bilateral low back pain with left-sided sciatica 08/20/2023 Assessment & Plan (01/07/2024 2:12 PM EDT): I will increase gabapentin to 600mg TID and refer her back to pain management Pelvic pain 08/20/2023 Assessment & Plan (08/21/2023 12:20 PM EDT): NATURAL SCIENCE MANAGER referral as per patient's request Preop examination [...] Encounters Date Type Department Care Team Description 07/05/2024 Refill [facility] MEDICINE [address] [place] [address] Elizabeth Dunn MD Class 2 severe obesity with serious comorbidity and body mass index (BMI) of 35.0 to 35.9 in adult, unspecified obesity type ([facility]) 06/21/2024 Telephone [facility] MEDICINE [address] [place] [address] Elizabeth Dunn MD Med Refill 06/21/[address] [address] Elizabeth Dunn MD S/P lumbar fusion; Chronic bilateral low back pain with left-sided sciatica; Chronic midline low back pain with left-sided sciatica 05/27/2024 2:30 PM EST Telemedicine [address] [address] Elizabeth Dunn MD Class 2 severe obesity with serious comorbidity and body mass index (BMI) of 35.0 to 35.9 in adult, unspecified obesity type (CMS/HCC) (Primary Dx); Status post lumbar spinal fusion 05/27/2024 Travel 05/13/2024 Orders Only GENERIC EXTERNAL DATA DEPARTMENT Provider, Generic External Data 05/07/[address] [address] Elizabeth Dunn MD Med Refill 04/23/2024 Orders Only GENERIC EXTERNAL DATA DEPARTMENT Provider, Generic External Data 04/19/[address] [address] Jessica Schafer MD Microcytic anemia 04/16/2024 Orders Only [facility] External Provider, [facility] 04/12/2024 Orders Only GENERIC EXTERNAL DATA DEPARTMENT Provider, Generic External Data 04/12/[address] [address] Elizabeth Dunn MD Prior Authorization ( PA: Charles) 04/07/2024 10:30 AM EST Office Visit [address] [address] Elizabeth Dunn MD Chronic midline low back [...] to 35.9 in adult, unspecified obesity type ([facility]) 04/07/2024 Travel from Last 3 Months Immunizations [...] the past 12 months, has t he [employer], gas, oil or water company threatened to [...] [facility] [address] [place] [address] Elizabeth Dunn MD [address] [place] [address] Health Maintenance Due Date Last Done Comments [...] Panel 01/04/2025 01/05/2024, 05/31/2020 Mammogram 02/09/2025 02/10/2024, 10/0 05/2023, 05/10/2022, Additional history exists Tobacco Screening 04/07/2025 [...] Laterality Modality Lower Extremities, Foot Left [facility] 05/28/2024 11:0 0 AM EST Narrative 05/31/2024 3:35 PM EST ? [facility] ?[address] ?[place] [address] ?XRay Report ? Signed ? Patient: Plata,Lelo R ?MR# ?? : [id number] ? : 1960 ?Acct:[id number] ? Age/Sex: 64 / F ?ADM Date: /17/25 ? Loc: HO.XRAY ? Attending Dr: Kimberly Castrejon HOTEL AND DINING ROOM CASHIER ? Ordering Physician: Kimberly Castrejon ?? Date of Service: 05/28/24 ?? Procedure(s): XR foot LT min 3V ?? Accession Number(s): [id number] ? cc: Elizabeth Dunn MD; Kimberly Castrejon [...] ??Fracisco Dockery MD ??05/31/2024 03:32 PM EST ? Dictated By: ?Fracisco Dockery MD ? Signed By: ?<Electronically signed by Fracisco Dockery MD in OV> ?05/31/24 1532 ? DD/ 1100 ? TD/TT: 05/28/24 1112 ? Newspaper Copy Editor: ? Procedure Note Kiera, Noah - 05/31/[address] [address] XRay Report Signed Patient: Lelo Plata RMR# : [id number] : 1960cct:[id number] Age/Sex: 64 / FADM Date: 05/28/24 Loc: [facility] Attending Dr: Kimberly DELCID Ordering Physician: Kimberly Castrejon Date of Service: 05/28/24 Procedure(s): XR foot LT min 3V Accession Number(s): [id number] cc: Elizabeth Dunn MD; Kimberly Castrejon EXAMINATION: [...] Fracisco Dockery MD 05/31/2024 03:32 PM EST RP Dictated By: Fracisco Dockery MD Signed By: <Electronically signed by Fracisco Dockery MD in OV> 05/31/24 1532 DD/ 1100 TD/TT: 05/28/24 1112 Newspaper Copy Editor: [facility] External Provider IMG XR PROCEDURES Final Result * Culture, Urine, Routine (05/13/2024 6:18 PM EST) Only the most recent of2 resultswithin the time period is included. Urine Urine specimen obtained by clean catch procedure / Unknown 05/13/2024 6:18 PM EST 05/13/2024 6:20 PM EST Comment:UACC Narrative [facility] - 05/15/2024 9:56 AM EST Urine Culture Report Result Urine Culture 10,000 to 50,000 cfu/ml Urine Culture Mixed bacterial tri characteristic of Urine Culture urogenital contamination. Specimen Source: Urine clean catch Generic External Data Provider LAB MICROBIOLOGY - GENERAL ORDERABLES Final Result [facility] [address] [place] [phone] * (ABNORMAL) Urinalysis, Complete, with Reflex to Culture (05/13/2024 5:28 PM EST) Color Urine Yellow [facility] Appearance Urine Clear [facility] PH 5.0 5.0 - 9.0 [facility] Glucose Urine UA Negative Negative mg/dL [facility] Urine Blood Negative Negative [facility] Specific [place] - Urine >=1.030(H) 1.005 - 1.025 [facility] Urine Protein Negative Neg-Trace mg/dL [facility] Urine Ketones Trace Negative mg/dL [facility] Nitrite Urine Negative Negative [facility] Leukocyte Esterase Urine Trace(A) Negative [facility] RBC Urine 0-2 0 - 2 /HPF [facility] Urine WBC 6-10(A) 0 - 5 /HPF [facility] Urine Squamous Epithelial Cell 6-10 0 - 2 /HPF [facility] Urine Bacteria Trace None Seen [facility] Hyaline Casts, Urine 0-2 0 - 2 /LPF [facility] 05/13/2024 5:28 PM EST 05/13/2024 5:31 PM EST Narrative [facility] - 05/13/2024 6:14 PM EST [id number], Clean Catch us Generic External Data Provider LAB URINE ORDERAB LES Final Result [facility] [address] [place] [address] [phone] * (ABNORMAL) CBC auto differential (05/13/2024 5:28 PM EST) White Blood Count 10.2 4.8 - 10.8 X10*3/uL [facility] Red Blood Count 4.64 4.20 - 5.50 X10*6/uL [facility] Hemoglobin 11.3(L) 12.0 - 16.0 g/dl [facility] Hematocrit 36.1(L) 37.0 - 47.0 % [facility] Mean Corpuscular Volume 77.8(L) 80.0 - 98.0 fL [facility] Mean Corpuscular Hemoglobin 24.4(L) 27.0 - 33.0 pg [facility] Mean Corpuscular HGB Conc 31.3 31.0 - 35.0 g/dl [facility] Red Cell Distribution Width 18.3(H) 11.0 - 16.0 % [facility] Platelet Count 294 160 - 400 X10*3/uL [facility] Mean Platelet Volume 9.8 9.4 - 12.3 fL [facility] Neutrophils Percent Auto 67.0 45 - 73 % [facility] Imm Gran Pct Auto 0.6(H) 0.0 - 0.4 % [facility] Lymphocytes Percent Auto 23.3 20 - 40 % [facility] Monocytes Percent Auto 7.2 2 - 11 % [facility] Eosinophils Percent Auto 1.7 0 - 4 % [facility] Basophils Percent Auto 0.2 0 - 2 % [facility] NRBC Pct Auto 0.0 0.0 - 0.2 /100WBC [facility] Neutrophils Absolute Auto 6.8 2.0 - 8.3 x10*3/uL [facility] Imm Gran Abs Auto 0.06(H) 0.00 - 0.03 X10*3/uL [facility] Lymphocytes Absolute Auto 2.4 1.2 - 4.9 X10*3/uL [facility] Monocytes Absolute Auto 0.7 0.1 - 1.2 X10*3/uL [facility] Eosinophils Absolute Auto 0.2 0.0 - 0.4 X10*3/uL [facility] Basophils Absolute Auto 0.0 0.0 - 0.2 X10*3/uL [facility] NRBC Abs Auto 0.000 0.0 - 0.012 X10*3/uL [facility] 05/13/2024 5:28 PM EST 05/13/2024 5:31 PM EST us Generic External Data Provider LAB BLOOD ORDERAB LES Final Result Performing Organization Address City/[facility]/ZIP Co de Phone Number [facility] [address] [place] [phone] * Lipase (05/13/2024 5:28 PM EST) Lipase 34 8 - 78 U/L [facility] 05/13/2024 5:28 PM EST 05/13/2024 5:31 PM EST us Generic External Data Provider LAB BLOOD ORDERAB LES Final Result Performing Organization Address City/[facility]/ZIP Co de Phone Number [facility] [address] [place] [phone] * Hepatic Function Panel (05/13/2024 5:28 PM EST) Pathologist [facility] Bilirubin, Total 0.1 0.0 - 1.0 mg/dL [facility] Bilirubin, Direct <0.2 0.0 - 0.5 mg/dL [facility] Aspartate Amino Transferase 22 5 - 31 U/L [facility] Comment:Slight Hemolysis.Int erpret result with caution. Alanine Aminotransferase 13 0 - 31 U/L [facility] Total Protein 7.5 6.5 - 8.0 g/dL [facility] Albumin Level 3.9 3.5 - 5.0 g/dL [facility] Alkaline Phosphatase 84 39 - 117 U/L [facility] 05/13/2024 5:28 PM EST 05/13/2024 5:31 PM EST Generic External Data Provider LAB BLOOD ORDERAB LES Final Result Performing Organization Address City/State/[facility] Co de Phone Number [facility] [address] [place] [phone] * (ABNORMAL) Basic Metabolic Panel (05/13/2024 5:28 PM EST) [facility] Sodium 138 135 - 145 mmol/L [facility] Potassium 4.4 3.3 - 5.1 mmol/L [facility] Comment:Slight Hemolysis.Int erpret result with caution. Chloride 104 96 - 108 mmol/L [facility] Carbon Dioxide 26 22 - 29 mmol/L [facility] Anion Gap 12 12 - 20 [facility] Urea Nitrogen (BUN) 21(H) 9 - 16 mg/dL [facility] Creatinine, Serum 1.01 0.5 - 1.4 mg/dL [facility] Creatinine Clr Calc Pharmacy 65.9 [facility] Comment:Provided height and weight: 165.1 cm,95.254 kg.eGFR (calculated from the MDRD study equation) and eCrCl(calculated from the Cockcroft-Gault equation) are based ondifferent parameters and may not yield comparable results.If eCrCl result is absurd, please check patient'sheight/weight. Estimated Glomerular Filt Rate 56 [facility] Comment:Chronic Kidney Disea se: Estimated GFR < 60 mL/min/1.07b4Fdblqb Kidney Disease: Estimated GFR < 15 mL/min/1.73m2 Glucose 84 60 - 115 mg/dL [facility] Calcium 8.7 8.4 - 10.2 mg/dL [facility] 05/13/2024 5:28 PM EST 05/13/2024 5:31 PM EST us Generic External Data Provider LAB BLOOD ORDERAB LES Final Result Performing Organization Address City/State/[facility] Co de Phone Number [facility] [address] [place] [address] [phone] * FL Guidance in OR (04/23/2024 7:35 AM EST) Anatomical Region Laterality Modality X-Ray Angiograph y 04/23/2024 7:35 AM EST Narrative 06/10/2024 7:43 AM EST ? [facility] ?[address] ?[place] [address] ? Fluoroscopy Report ? Signed ? Patient: Bailon Jack,Lelo R ?MR# ?? : [id number] ? : 1960 ?Acct:[id number] ? Age/Sex: 64 / F ?ADM Date: 04/23/24 ? Loc: HO.SSS ? Attending Dr: Joao Valentine MD ? Ordering Physician: Joao Valentine MD ?? Date of Service: 04/23/24 ?? Procedure(s): FL guidance in OR ?? Accession Number(s): [id number] ? cc: Elizabeth Dunn MD; Joao Valentine [...] ??Neftali Moncada MD ??06/10/2024 07:41 AM EST ? Dictated By: ?Neftali Moncada MD ? Signed By: ?<Electronically signed by Neftali Moncada MD in OV> ? 06/10/24 0741 ? DD/ 0735 ? TD/TT: 04/23/24 0758 ? Newspaper Copy Editor: SS ? Procedure Note Kiera, Image - 06/10/[address] [address] Fluoroscopy Report Signed Patient: Lelo Plata RMR# : [id number] : 1960cct:[id number] Age/Sex: 64 / FADM Date: 04/23/24 Loc: .[facility] Attending Dr: Joao Valentine MD Ordering Physician: Joao Valentine MD Date of Service: 04/23/24 Procedure(s): FL guidance in OR Accession Number(s): [id number] cc: Elizabeth Dunn MD; Joao Valentine MD [...] 06/10/24 0741 DD/ 0735 TD/TT: 04/23/24 0758 Newspaper Copy Editor: SS [facility] External Provider IMG IR PROCEDURES Edited Result - Final * Glucose, Whole Blood (04/23/2024 6:40 AM EST) Glucose, Whole Blood 107 60 - 115 mg/dL [facility] Comment:METER #: [id number] 04/23/2024 6:40 AM EST 04/23/2024 6:43 AM EST Generic External Data Provider LAB BLOOD ORDERAB LES Final Result [facility] [address] [place] [address] [phone] * US Pelvis Transvaginal (04/16/2024 1:23 PM EST) Anatomical Region Laterality Modality Pelvis Ultrasound 04/16/2024 1:23 PM EST Narrative 05/17/2024 7:34 AM EST ? [facility] ?[address] ?[place] [address] ? Ultrasound Report ? Signed ? Patient: Plata,Lelo Petty ?MR# ?? : [id number] ? : 1960 ?Acct:[id number] ? Age/Sex: 64 / F ?ADM Date: 12/06/24 ? Loc: HO.US ? Attending Dr: Reynaldo Jeffers MD ? Ordering Physician: Reynaldo Jeffers MD ?? Date of Service: 04/16/24 ?? Procedure(s): US pelvic and transvaginal ?? Accession Number(s): [id number] ? cc: Elizabeth Dunn MD; Reynaldo Jeffers [...] ??Hali Heredia MD ??05/17/2024 07:31 AM EST ?? RP ? Dictated By: ?Hali Heredia MD ? Signed By: ?<Electronically signed by Hali Heredia MD in OV> ? 05/17/24 0731 ? DD/ 1323 ? TD/TT: 04/16/24 1343 ? Newspaper Copy Editor: ? Procedure Note Noah Qureshi - 05/17/[address] [address] Ultrasound Report Signed Patient: Lelo Plata RMR# : [id number] : 2Acct:[id number] Age/Sex: 64 / FADM Date: 04/16/24 Loc: HO.US Attending Dr: Reynaldo Jeffers MD Ordering Physician: Reynaldo Jeffers MD Date of Service: 04/16/24 Procedure(s): US pelvic and transvaginal Accession Number(s): [id number] cc: Elizabeth Dunn MD; Reynaldo Jeffers MD [...] 05/17/24 0731 DD/ 1323 TD/TT: 04/16/24 1343 Newspaper Copy Editor: [facility] External Provider IMG US PROCEDURES [...] EDT Narrative 02/10/2024 5:26 PM EDT ? [facility] [place] ? [address] ?[place] [address] ? Mammography Report ? Signed ? Patient: Rob Santiago,Lelo R ?MR#: ?? [id number] ? : 1960 ?Acct:[id number] ? Age/Sex: 63 / F ?ADM Date: 10//24 ? Loc: HO.MAMMO ? Attending Dr: Elizabeth Goncalves MD ? Ordering Physician: Elizabeth Dunn MD ?Results: ?? 1Negative ? Date of Service: 02/10/24 ?Follow Up: 1 Year From Orig ?? inal Mammogram ? Procedure(s): MM tomosynthesis diagnostic BI ?? Accession Number(s): [id number] ? cc: Elizabeth Dunn MD ? EXAMINATION: [...] ? Signed By: ?<Electronically signed by Kory Johnson, MD in OV> ?02/10/24 1724 ? DD/ 1400 ? TD/TT: 02/10/24 1410 ? Newspaper Copy Editor: ? Procedure Note Kiera, Noah - 02/10/2024 [facility] [address] [place] [address] [place] [address] Mammography Report Signed Patient: Lelo Watters RMR#: [id number] : 2Acct:[id number] Age/Sex: 63 / FADM Date: 02/10/24 Loc: HO.MAMMO Attending Dr: Elizabeth Goncalves MD Ordering Physician: Elizabeth Dunnesults: 1Negative Date of Service: 02/10/24Follow Up: 1 Year From Orig inal Mammogram Procedure(s): MM tomosynthesis diagnostic BI Accession Number(s): [id number] cc: Elizabeth Dunn MD EXAMINATION: MM DIAGNOSTIC [...] 02/10/24 1724 DD/ 1400 TD/TT: 02/10/24 1410 Newspaper Copy Editor: us Elizabeth Goncalves MD IMG BI PROCEDURES Patrick wendie Result - Final * Albumin, Random Urine W/Creatinine (01/05/2024 8:25 AM EDT) Creatinine, Urine 223.33 mg/dL [facility] Microalbumin Urine 9.0 mg/L [facility] Microalbum Creatinine Ratio Ur 4.0 <30 ug/mg cr [facility] Comment:Albumin/Creatinine R atio Reference Ranges: Normal: < 30 ug/mg creatinine Microalbuminuria: 30 - 300 ug/mg creatinineClinical Albuminuria: > 300 ug/mg creatinine Urine (Urine, Random) 01/05/2024 8:25 AM EDT 01/05/2024 11:48 AM EDT us Elizabeth Goncalves MD LAB URINE ORDERABLES Final Result [facility] [address] [place] [address] [phone] * (ABNORMAL) Lipid Panel with Reflex to Direct LDL (01/05/2024 8:22 AM EDT) Triglycerides 180(H) <150 mg/dL [facility] Comment:Desirable Triglyceri de: less than 150 mg/dLBorderline High Triglyceride 150-199 mg/dLHigh Triglyceride: 200-499 mg/dLVery High Triglyceride: greater than or equal to 5OO mg/dL Cholesterol 240(H) <200 mg/dL [facility] Comment:Desirable Cholestero l: less than 200 mg/dLBorderline High Cholesterol: 200-239 mg/dLHigh Cholesterol: greater than 239 mg/dL LDL Cholesterol Calculated 138(H) <100 mg/dL [facility] Comment:Desirable LDL: less than 100 mg/dLNear Optimal/Above Optimal LDL: 110- 129 mg/dLBorderline High LDL: 130-159 mg/dLHigh LDL: 160-189 mg/dLVery High LDL: greater than or equal to 190 mg/dL HDL Cholesterol 66 >40 mg/dL [facility] Comment:Desirable HDL: great er than 40 mg/dL Note: This HDL assay may give artificially low results in patients with liver disease. Blood 01/05/2024 8:22 AM EDT 01/05/2024 11:52 AM EDT Elizabeth Goncalves MD LAB BLOOD ORDERABLES Final Result Performing Organization Address City/[facility]/ZIP Co de Phone Number [facility] [address] [place] [address] [phone] * Hm Colonoscopy (12/10/2022) Historical Provider HEALTH MAINTENANCE Final Result * HEPATITIS C AB W/REFL TO HCV RNA, QN, PCR (10/23/2020 10:08 AM EDT) Pathologist [facility] HEPATITIS C ANTIBODY NON-REACT JOSE NON-REACT JOSE [facility] INDEX 0.01 <1.00 [facility] Comment: ?? HCV antibody was non-reactive. There is no laboratory ?? evidence of HCV infection. ?? In most cases, no further action is required. However, if recent HCV exposure is suspected, a test for HCV RNA (test code 79201) is suggested. ?? For additional information please refer to http://education.[employer]/faq/EXG31f4 (This link is being provided for informational/ educational purposes only.) ?? 10/23/2020 10:0 8 AM EDT us Elizabeth Goncalves MD HISTORICAL/NON ORDERA BLE LABS Final Result Performing Organization Address City/[facility]/ZIP Co de Phone Number [facility] [address] * HIV 1/2 ANTIGEN/ANTIBODY,FOURTH GENERATION W/RFL (10/23/2020 10:08 AM EDT) HIV-1/2 ANTIGEN AND ANTIBODIES, 4TH GENERATION W/ REFLEX NON-REACT JOSE NON-REACT JOSE [facility] Comment: HIV-1 antigen and HIV-1/HIV-2 [...] ? For additional information please refer to http://education.[employer]/faq/YWF526 (This link is being provided for informational/ educational purposes only.) ? The performance of this assay has not been clinically validated in patients less than 2 years old. ?? 10/23/2020 10:0 8 AM EDT Elizabeth Goncalves MD LAB BLOOD ORDERABLES Final Result [facility] [address] from Last 3 Months or Most Recently Relevant to Health Maintenance Insurance C3 Care Teams Turbogenerator Operator Relationship Specialty Start Date End Date Elizabeth Dunn MD [address] [place] [phone] PCP - General Family Medicine 03/17/18 Thao Barnhart Process Cheese CookerPatient Observer 02/07/23
--- OUTSIDE RECORDS SUMMARY | 2024-07-08 07:50 | XMS_ITS | Clinical Summary ---
Author Organization [address] [facility] Address [address] [place] [phone] Phone Care Team Providers Care Motor Racer Name Role Phone Elizabeth Dunn MD Primary [...] to complete this topic Insurance [place] Care Teams Motor Racer Relationship Specialty Start Date End Date Elizabeth Dunn MD [address] [place] [phone] PCP - General Internal Medicine 02/12/24
--- OUTSIDE RECORDS SUMMARY | 2024-07-08 07:50 | XMS_ITS | Encounter Summary ---
Author Organization [facility] Address [address] [place] [address] 7[address] [place] [address] Care Team Providers Care Electric System Operator Name Role Phone Elizabeth Dunn MD Primary Care Provide r Encounter Details Date Type Department Care Team (Late st Contact Info) Description 05/17/2022 Abstract [facility] [address] [place] [phone] Linda Romero, PharmD [address] [place] [address] Social History Tobacco Use Types Packs/Day Years [...] Description 07/15/2024 2:30 PM EST Office Visit [facility] [address] [place] [phone] Elizabeth Dunn MD [address] [place] [address] documented as of this encounter Visit Diagnoses Not on filedocumented in this encounter Care Teams Electric System Operator Relationship Specialty Start Date End Date Elizabeth Dunn MD [address] [place] [phone] PCP - General Family Medicine 03/17/18 Thao Barnhart Unit Reactor OperatorDirector Learning Services 02/07/23 documented as of this encounter
--- OUTSIDE RECORDS SUMMARY | 2024-07-08 07:51 | XMS_ITS | Encounter Summary ---
Author Organization [employer] Address [address] [facility] 7t [place] [address] Care Team Providers Care Box Spring Upholsterer Name Role Phone Elizabeth Dunn MD Primary Care Provide r Encounter Details Date Type Department Care Team ([facility] st Contact Info) Description 08/29/2023 Telephone [facility] [address] [place] [address] Elizabeth Dunn MD [address] [place] [address] Social History Tobacco Use Types Packs/Day Years [...] Referral faxed to [facility] requesting increase in ASSEMBLER FOR PULLER OVER MACHINE hours due to change in condition. * Telephone Encounter - Iva Pisano RN - 08/29/2023 4:18 PM EDT Paperwork sent to Provider for signature to increase ASSEMBLER FOR PULLER OVER MACHINE hours due to patient's condition change after Lumbar fusion procedure. Needs more assistance with ADL's. Once provider signs form I will fax to [employer]. documented in this encounter Plan of Treatment Upcoming Encounters Date Type Department Care Team (Late st Contact Info) Description 07/15/2024 2:30 PM EST Office Visit [facility] [address] [place], [place] [phone] Elizabeth Dunn MD [address] [place] [address] documented as of this encounter Visit Diagnoses Not on filedocumented in this encounter Additional Health Concerns Assessment Noted Time PHQ-9 Depression Total Score: 0 08/20/19 24 2:32 PM EDT documented as of this encounter Care Teams Box Spring Upholsterer Relationship Specialty Start Date End Date Elizabeth Dunn MD [address] [place] [address] PCP - General Family Medicine 03/17/18 Thao Barnhart Pumper Gauger ApprenticeHouse Fellow 02/07/23 documented as of this encounter
--- OUTSIDE RECORDS SUMMARY | 2024-07-08 07:51 | XMS_ITS | Encounter Summary ---
Author Organization [employer] Address [address] [place] [address] 7 [place] [address] Care Team Providers Care V Belt Mold Assembler And Curer Name Role Phone Elizabeth Dunn MD Primary Care Provide r Reason for Visit * Reason Onset Date Comments Med Refill 12/17/2022 Encounter Details Date Type Department Care Team ([facility] st Contact Info) Description 12/17/2022 Telephone [facility] [address] [place] [address] Elizabeth Dunn MD [address] [place] [address] Med Refill Social History Tobacco Use Types [...] Description 07/15/2024 2:30 PM EST Office Visit [facility] [address] [place], [place] [phone] Elizabeth Dunn MD [address] [place], [place] [phone] documented as of this encounter Visit Diagnoses Not on filedocumented in this encounter Additional Health Concerns Assessment Noted Time PHQ-9 Depression Total Score: 0 08/03/19 23 3:13 PM EDT documented as of this encounter Care Teams V Belt Mold Assembler And Curer Relationship Specialty Start Date End Date Elizabeth Dunn MD [address] [place] [address] [phone] PCP - General Family Medicine 03/17/18 Thao Barnhart Capacity Planning AnalystPlanograph Operator 02/07/23 documented as of this encounter
--- OUTSIDE RECORDS SUMMARY | 2024-07-08 07:51 | XMS_ITS | Encounter Summary ---
Author Organization [employer] Address [address] [facility] 7t [place] [address] Care Team Providers Care China Painter Name Role Phone Elizabeth Dunn MD Primary Care Provide r Reason for Visit * Reason Onset Date Comments Med Refill 05/07/2024 Encounter Details Date Type Department Care Team ([facility] st Contact Info) Description 05/07/[address] [facility] [address] [place] [address] Eilzabeth Dunn MD [address] [place] [address] Med Refill Social History Tobacco Use Types [...] Marinelli LPN - 05/07/2024 2:02 PM EST STUDENT AFFAIRS DEAN checked 05/07/24 patient should have 1 refill left. * Telephone Encounter - Carmella Jonas - 05/07/2024 1:54 PM EST TC from pt requesting medication refill. Medications needing refill : gabapentin (Neurontin) 600 MG tablet To be sent to: [facility]/pharmacy #[id number] documented in this encounter Plan of Treatment Upcoming Encounters Date Type Department Care Team (Late st Contact Info) Description 07/15/2024 2:30 PM EST Office Visit [facility] [address] [place] [address] Elizabeth Dunn MD [address] [place] [address] documented as of this encounter Visit Diagnoses Not on filedocumented in this encounter Additional Health Concerns Assessment Noted Time PHQ-9 Depression Total Score: 0 08/20/19 24 2:32 PM EDT documented as of this encounter Care Teams China Painter Relationship Specialty Start Date End Date Elizabeth Dunn MD [address] [place] [address] PCP - General Family Medicine 03/17/18 Thao Barnhart Custom Garment DesignerDisk Sander 02/07/23 documented as of this encounter
--- OUTSIDE RECORDS SUMMARY | 2024-07-08 07:51 | XMS_ITS | Encounter Summary ---
Author Organization [facility] Address [address] [place] [address] 7t [place] [address] Care Team Providers Care Technology Infusion Specialist Name Role Phone Elizabeth Dunn MD Primary Care Provide r Encounter Details Date Type Department Care Team ([facility] Contact Info) Description 01/29/2023 Orders Only [facility] [address] [place] [address] [phone] Provider, MD Hector Social History Tobacco Use [...] Description 07/15/2024 2:30 PM EST Office Visit [facility] [address] [place] [address] [phone] Elizabeth Dunn MD [address] [place] [address] [phone] documented as of this encounter Procedures Procedure Name Priority Date/Time Associated Diagnosis Comments COLONOSCOPY Routine 12/10/2022 documented in this encounter Results * Hm Colonoscopy (12/10/2022) us Historical Provider HEALTH MAINTENANCE Final Result documented in this encounter Visit Diagnoses Not on filedocumented in this encounter Additional Health Concerns Assessment Noted Time PHQ-9 Depression Total Score: 0 08/03/19 23 3:13 PM EDT documented as of this encounter Care Teams Technology Infusion Specialist Relationship Specialty Start Date End Date Elizabeth Dunn MD [address] [place] [address] PCP - General Family Medicine 03/17/18 Thao Barnhart Sheet TesterDue Diligence Coordinator 02/07/23 documented as of this encounter
--- OUTSIDE RECORDS SUMMARY | 2024-07-08 07:51 | XMS_ITS | Encounter Summary ---
Author Organization [employer] Address [address] [facility] 7t [place] [address] Care Team Providers Care Deck Officer Name Role Phone Elizabeth Dunn MD Primary Care Provide r Reason for Visit * Reason Onset Date Comments Med Refill 06/21/2024 Encounter Details Date Type Department Care Team ([facility] st Contact Info) Description 06/21/[address] [facility] [address] [place] [address] Elizabeth Dunn MD [address] [place] [address] Med Refill Social History Tobacco Use Types [...] 500 MG tablet To be sent to: [facility]/pharmacy #[id number] [place] [address] documented in this encounter Plan of Treatment Upcoming Encounters Date Type Department Care Team (Late st Contact Info) Description 07/15/2024 2:30 PM EST Office Visit [facility] [address] [place] [address] Elizabeth Dunn MD [address] [place] [address] documented as of this encounter Visit Diagnoses Not on filedocumented in this encounter Additional Health Concerns Assessment Noted Time PHQ-9 Depression Total Score: 0 08/20/19 24 2:32 PM EDT documented as of this encounter Care Teams Deck Officer Relationship Specialty Start Date End Date Elizabeth Dunn MD [address] [place] [address] PCP - General Family Medicine 03/17/18 Thao Barnhart Home School TeacherLegal Internship 02/07/23 documented as of this encounter
--- OUTSIDE RECORDS SUMMARY | 2024-07-08 07:51 | XMS_ITS | Encounter Summary ---
Author Organization [employer] Address [address] [place] [address] 7t [place] [address] Care Team Providers Care Security Screener Name Role Phone Elizabeth Dunn MD Primary Care Provide r Reason for Visit * Reason Onset Date Comments Med Refill 12/04/2022 Encounter Details Date Type Department Care Team ([facility] st Contact Info) Description 12/04/2022 Telephone [facility] [address] [place] [address] Elizabeth Dunn MD [address] [place] [address] Med Refill Social History Tobacco Use Types [...] Description 07/15/2024 2:30 PM EST Office Visit [facility] [address] [place], [place] [phone] Elizabeth Dunn MD [address] [place], [place] [phone] documented as of this encounter Visit Diagnoses Not on filedocumented in this encounter Additional Health Concerns Assessment Noted Time PHQ-9 Depression Total Score: 0 08/03/19 23 3:13 PM EDT documented as of this encounter Care Teams Security Screener Relationship Specialty Start Date End Date Elizabeth Dunn MD [address] [place] [address] [phone] PCP - General Family Medicine 03/17/18 Thao Barnhart Active Directory SpecialistSausage Canner 02/07/23 documented as of this encounter
--- OUTSIDE RECORDS SUMMARY | 2024-07-08 07:51 | XMS_ITS | Encounter Summary ---
Author Organization [employer] Address [address] [facility] 7t [place] [address] Care Team Providers Care Cutter Operator Brick Name Role Phone Elizabeth Dunn MD Primary Care Provide r Reason for Visit * Reason Comments Med Refill Encounter Details Date Type Department Care Team ([facility] st Contact Info) Description 06/21/2024 Refill [facility] [address] [place] [address] Elizabeth Dunn MD [address] [place] [address] S/P lumbar fusion; Chronic bilateral low back [...] Marinelli LPN - 06/21/2024 11:13 AM EST WHARF LABORER checked on 06/21/24. Next appointment 07/15/24. 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
--- OUTSIDE RECORDS SUMMARY | 2024-07-08 07:51 | XMS_ITS | Encounter Summary ---
Author Organization [employer] Address [address] [facility] 7t [place] [address] Care Team Providers Care Watch Case Polisher Name Role Phone Eliazbeth Dunn MD Primary Care Provide r Reason for Visit * Reason Onset Date Comments Nurse Triage 11/26/2023 Encounter Details Date Type Department Care Team ([facility] st Contact Info) Description 11/26/2023 Telephone [facility] [address] [place] [address] Elizabeth Dunn MD [address] [place] [address] Nurse Triage Social History Tobacco Use Types [...] to PT. Per pt has not called software quality specialist to notify of increased pain with [...] Description 07/15/2024 2:30 PM EST Office Visit [facility] [address] [place] [address] Elizabeth Dunn MD [address] [place], [place] [phone] documented as of this encounter Visit Diagnoses Not on filedocumented in this encounter Additional Health Concerns Assessment Noted Time PHQ-9 Depression Total Score: 0 08/20/19 24 2:32 PM EDT documented as of this encounter Care Teams Watch Case Polisher Relationship Specialty Start Date End Date Elizabeth Dunn MD [address] [place], [place] [phone] PCP - General Family Medicine 03/17/18 Thao Barnhart Table And Desk FinisherSanta'S Helper 02/07/23 documented as of this encounter
--- NOTE | 2024-07-08 07:53 | MHC.OFFVIS ---
Vital Signs 07/08/24 07:55 Height 5 ft 5 in Weight 210 lb BMI 34.9 Intake Visit Reasons: ultrasound results Rock Crushing Machine Operator Required: Yes Rock Crushing Machine Operator Language: Receiving Teller Services: Rock Crushing Machine Operator Present (in person) Rock Crushing Machine Operator Name: Graciela LINARES Information Interpreted: non-clinical & clinical Accompanied by: Self / Same As Patient Allergies morphine [MORPHINE] Allergy (Intermediate, Verified 07/08/24 07:56) PALPITATIONS, tachicardia quetiapine [Seroquel] Allergy (Intermediate, Verified 07/08/24 07:56) Aggitation orphenadrine [ORPHENADRINE] Adverse Reaction (Intermediate, Verified 07/08/24 07:56) RAPID HEART RATE Post menopausal: Yes HPI Comments Details: The patient is scheduled tele health visit to discuss the results the ultrasound which showed the following: IMPRESSION: 1. Uterus surgically absent. Long vaginal stripe is visualized. 2. A 0.5 x 0.4 cm echogenic focus with shadowing in the vaginal cuff area. Ultrasound of 11/15/2014 demonstrated a 0.5 x 0.2 x 0.4 cm echogenic focus in the vaginal cuff region. 3. Bilateral ovaries were not visualized. Last pelvic exam in 05/04 was suboptimal because of long-term history of abstinence Review of the patient's chart showed multiple CT scan order last 4 years, the pelvic portion of them were unremarkable with no pelvic masses. PFSH Medical History Weakness Arthritis History of brain inflammation Protrusion of lumbar intervertebral disc Tinnitus Venous insufficiency Osteoarthritis Loss of hair History of headache Fibromyositis Fatigue Hyperlipidemia HTN (hypertension) Continuous opioid dependence Sinusitis Anemia Anxiety Diverticulosis Chronic idiopathic constipation Migraine Asthma Depression Diabetes 1.5, managed as type 2 Fibromyalgia Surgical History History of back surgery History of esophagogastroduodenoscopy (EGD) S/P panniculectomy Hx of hysterectomy Hx of oophorectomy Hx of bilateral breast reduction surgery H/O colonoscopy History of pubovaginal sling Gastric bypass status for obesity Family History Mother Colon cancer Social History Household Members: Spouse and Children Household Members Other:: lives alone Housing: House Are you a primary floor care technician to a significant other at home: No Do you presently have visiting nurse or other home services: Yes (SUPERVISOR URANIUM PROCESSING) Alcohol intake: never Comment: IV infiltrated Patient Tobacco Use Status: Never used Tobacco Second Hand Smoke Exposure: No Advance Directives Date on File: 07/24/23 service: No Current occupational status: disabled Sexual orientation: Straight/Heterosexual Gender identity: Female Review of Systems Const All systems reviewed & are unremarkable except as noted in HPI and below Reports as per HPI and Reports no additional complaints GI Reports no additional complaints Reports no additional complaints Physical Exam Vital Signs: BMI result Body Mass Index 34.9 Assessment & Plan Assessment & Plan (1) Abnormal ultrasound: Comment: vainal cuff Code(s): R93.89 - Abnormal findings on diagnostic imaging of other specified body structures Category: Medical Plan: Discussed with the patient the results of ultrasound showing a 0.5 cm vaginal cuff she had a week present in 2014 was the same size. Also discussed with the patient multiple CT scan of abdomen and pelvis in last 4 years, all of the pelvic portion was unremarkable with no evidence of pelvic masses. Will order pelvic MRI. Instructions given the patient to schedule an MRI of the pelvis and a follow-up appointment within 3 weeks. All questions answered, the patient verbalized understanding Orders: Orders MR pelvis wo/w con Today R93.89 - Abnormal findings on diagnostic imaging of other specified body structures Coding Level of Care Code Est Pt Level 3 (85514) Diagnoses Abnormal ultrasound R93.89
[2024-07-08 07:55] VITALS: BMI 34.9
== END 2024-07-08 08:26 | disposition home or self-care (01) ==
LOC: HO.HWS 07:48
PROVIDERS: Visit Provider Obstetrics & Gynecology
DX: R93.89 Abnormal findings on diagnostic imaging of other specified body structures (principal)
CPT/HCPCS: 99213

== ENCOUNTER → 2024-07-08 07:48 | Outpatient (BNVA) | payer MEDICAID, SELFPAY | PROVIDERS: Visit Provider Obstetrics & Gynecology | DX: R93.89 Abnormal findings on diagnostic imaging of other specified body structures (principal) | CPT/HCPCS: 99212 ==

== ENCOUNTER → 2024-07-11 12:48 | Outpatient (BNV) | payer MEDICAID, SELFPAY | PROVIDERS: Visit Provider Radiology Diagnostic Radiology | DX: R10.2 Pelvic and perineal pain (principal); Z90.710 Acquired absence of both cervix and uterus; K59.00 Constipation, unspecified | CPT/HCPCS: 72197 ==

== ENCOUNTER 2024-07-11 12:49 | Outpatient (REF) | payer MEDICAID, SELFPAY ==
--- NOTE | ~2024-07-11 | MR_ITS ---
CLINICAL HISTORY: R93.89 - Abnormal findings on diagnostic imaging of other specified body... MR pelvis with and without gadolinium Clinical history: Further evaluation of an echogenic shadowing focus of the vaginal cuff. Medical history shows reported history of hysterectomy, and history of right ovarian cystectomy with half of right ovary removed. Comparison: US/SR - US PELVIC AND TRANSVAGINAL - 04/16/24 13:[address]/REG/IL/SR - CT ABDOMEN PELVIS W IV CON - 10/29/22 18:48 EDT Findings: Artifact of the lower lumbar spine likely reflecting postsurgical changes from fusion hardware. No suspicious bone marrow signal abnormality. Bowel is suboptimally assessed on MRI. Where visualized, the stool burden is large. Appendix is not visualized. No lymphadenopathy. No free fluid or free air. Urinary bladder is incompletely distended, without focal abnormality. Uterus is surgically absent, history of hysterectomy. Ovaries are not visualized. There is no suspicious enhancement. The echogenic shadowing focus as seen on the previous ultrasounds likely reflects benign coarse calcifications at the lateral aspect of the vaginal cuff as seen on previous CTs, stable dating back to 2021. On the previous ultrasound, this is reported stable dating back to 2014. It is likely of no clinical consequence. No specific etiology by MRI to explain patient's pelvic and perianal pain. IMPRESSION: 1. Post hysterectomy. Ovaries are not visualized. No specific etiology by MRI to explain patient's pelvic and perianal pain. Specifically, the echogenic shadowing focus in the vaginal cuff as seen on the prior ultrasounds likely reflects benign coarse calcifications at the lateral aspects of the vaginal cuff as seen on previous CTs, stable dating back to 2021. On the previous ultrasound, this is reported stable dating back to 2014. It is likely of no clinical consequence. 2. Large stool burden. This document has been electronically signed by: Sol Montoya MD on 07/12/2024 13:02:19
[2024-07-11] MEDS: gadobutroL 10 ML VIAL IVPUSH (13:42)
== END 2024-07-11 12:50 | disposition home or self-care (01) ==
LOC: HO.MRI 12:49
PROVIDERS: Visit Provider Obstetrics & Gynecology
DX: R93.89 Abnormal findings on diagnostic imaging of other specified body structures (principal)
CPT/HCPCS: 72197; A9585

== ENCOUNTER 2024-07-28 13:39 | Outpatient (REF) | payer MEDICAID, SELFPAY ==
--- NOTE | 2024-07-28 13:44 | EMG_ITS ---
Chief complaint: Chronic back pain. L5-S1 lumbar fusion 07/30/2023. After surgery, starting having sensation of tightness/cold/hot on left ankle and toes. History of diabetes. Noted some left footdrop/dorsiflexion weakness. Reason for referral: Evaluate for peroneal neuropathy versus radiculopathy Referred by: Kimberly Castrejon NP Procedure done: Left lower extremity NCS/EMG, with some comparison to right Precautions and/or limitations: None The limb temperature was monitored continuously and remained between 32-36 degrees C during the performance of the NCS. Nerve Conduction Studies Anti Sensory Summary Table ?Stim Site NR Onset (ms) Norm Onset (ms) Peak (ms) Norm Peak (ms) O-P Amp (?V) Norm O-P Amp Site1 Site2 Delta-0 (ms) Dist (cm) Reji (m/s) Norm Reji (m/s) Left Sural Anti Sensory (Lat Mall) Calf NR <4.0 >5.0 Calf Lat Mall 14.0 Right Sural Anti Sensory (Lat Mall) Calf NR <4.0 >5.0 Calf Lat Mall 14.0 Motor Summary Table ?Stim Site NR Onset (ms) Norm Onset (ms) O-P Amp (mV) Norm O-P Amp iAmp (mV) Amp (1st) (%) Site1 Site2 Delta-0 (ms) Dist (cm) Reji (m/s) Norm Reji (m/s) Left Peroneal Motor (Ext Dig Brev) Ankle NR <4.0 >2.5 Ankle Ext Dig Brev 0.0 B Fib NR B Fib Ankle 0.0 >40 Poplt NR Poplt B Fib 0.0 >40 Left Peroneal TA Motor (Tib Ant) Fib Head ? 3.0 <4.2 2.0 2.4 100.0 Fib Head Tib Ant 3.0 0.0 Poplit ? 3.6 <5.7 1.7 2.0 85.0 Poplit Fib Head 0.6 4.0 67 >40.5 Left Tibial Motor (Abd Waldrop Brev) Ankle NR <5 >2.5 Ankle Abd Waldrop Brev 0.0 Knee ? 13.5 8.9 12.6 Knee Ankle 0.0 >40 Right Tibial Motor (Abd Waldrop Brev) Ankle NR <5 >2.5 Ankle Abd Waldrop Brev 0.0 Knee ? 11.8 6.4 8.0 Knee Ankle 0.0 >40 EMG ?Side Muscle Nerve Root Ins Act Fibs Psw Amp Dur Poly Recrt Int Pat Comment Right AbdHallucis MedPlantar S1-2 Nml Nml Nml Nml Nml 0 Nml Complete Right AntTibialis Dp Br Peron L4-5 Nml Nml Nml Nml Nml 0 Nml Complete Left AbdHallucis MedPlantar S1-2 Incr 1+ 1+ Nml Nml 0 Nml Complete Left AntTibialis Dp Br Peron L4-5 Incr 1+ 1+ Nml Nml 0 Nml Complete Left PostTibialis Tibial L5, S1 Nml Nml Nml Nml Nml 0 Nml Complete Left MedGastroc Tibial S1-2 Nml Nml Nml Nml Nml 0 Nml Complete Left VastusMed Femoral L2-4 Nml Nml Nml Nml Nml 0 Nml Complete Left BicepsFemS Sciatic L5-S1 Nml Nml Nml Nml Nml 0 Nml Complete FINDINGS: Left peroneal nerve showed absent response, when recording at EDB muscle. Small amplitudes seen when recording at TA muscle, but without conduction block across fibular neck. Bilateral tibial nerve showed absent distal response. Bilateral sural nerves showed absent response. Concentric needle EMG was performed in selected muscles of the bilateral lower extremities. Study revealed signs of electric abnormalities as shown in the table above. Left tibialis anterior and AH muscles showed increased insertional activity, PSWs and fibrillations. No denervation seen on right. IMPRESSION: 1. This is an abnormal study. 2. There is electrodiagnostic evidence for left L5-S1 radiculopathy, with underlying bilateral symmetric sensorimotor peripheral neuropathy. Thank you for your kind referral. Megan Varner MD, ELLI Board Certified, [place] Board of Physical Medicine and Rehabilitation (ABPMR) Board Certified, [place] Board of Electrodiagnostic Medicine (ABEM) CODIN [id number] x1 [phone] x 1 MTDD
--- OUTSIDE RECORDS SUMMARY | 2024-07-28 16:06 | XMS_ITS | Encounter Summary ---
Author Organization [employer] Address 75 [facility] 7t [place] [address] Care Team Providers Care Rcp Name Role Phone Elizabeth Dunn MD Primary Care Provide r Reason for Visit * Reason Comments Med Refill Encounter Details Date Type Department Care Team ([facility] st Contact Info) Description 07/16/2024 Refill [facility] [address] [place] [address] Elizabeth Dunn MD [address] [place] [address] Chronic midline low back pain with left-sided [...] Care Team (Late st Contact Info) Description 09/13/2024 2:30 PM EDT Office Visit [facility] [address] [place] [address] Elizabeth Dunn MD [address] [place] [address] documented as of this encounter Visit Diagnoses Diagnosis Chronic midline low back pain with left-sided sciatica documented in this encounter Additional Health Concerns Assessment Noted Time PHQ-9 Depression Total Score: 0 08/20/19 24 2:32 PM EDT documented as of this encounter Care Teams Rcp Relationship Specialty Start Date End Date Elizabeth Dunn MD [address] [place] [phone] PCP - General Family Medicine 03/17/18 Thao Barhnart Train EngineerEvent Specialist Product Demonstrator 02/07/23 documented as of this encounter
--- OUTSIDE RECORDS SUMMARY | 2024-07-28 16:06 | XMS_ITS | Encounter Summary ---
Author Organization [employer] Address [address] [facility] 7t [place] [address] Care Team Providers Care Vp Respiratory Name Role Phone Elizabeth Dunn MD Primary Care Provide r Encounter Details Date Type Department Care Team (Latest Contact Info) Description 07/15/2024 Travel Social History Tobacco Use Types Packs/Day Years [...] Description 09/13/2024 2:30 PM EDT Office Visit [facility] MEDICINE [address] [place] [address] Elizabeth Dunn MD [address] [place] [address] documented as of this encounter Visit Diagnoses Not on filedocumented in this encounter Additional Health Concerns Assessment Noted Time PHQ-9 Depression Total Score: 0 08/20/19 24 2:32 PM EDT documented as of this encounter Care Teams Vp Respiratory Relationship Specialty Start Date End Date Elizabeth Dunn MD [address] [place] [phone] PCP - General Family Medicine 03/17/18 Thao Barnhart Button BroacherGlove Printer 02/07/23 documented as of this encounter
--- OUTSIDE RECORDS SUMMARY | 2024-07-28 16:06 | XMS_ITS | Encounter Summary ---
Author Organization [employer] Address [address] [place] [address] 7t [place] [address] Care Team Providers Care Nurseryman Assistant Name Role Phone Elizabeth Dunn MD Primary Care Provide r Reason for Visit * Reason Onset Date Comments Med Refill 12/17/2022 Encounter Details Date Type Department Care Team ([facility] st Contact Info) Description 12/17/2022 Telephone [facility] [address] [place] [address] Elizabeth Dunn MD [address] [place] [address] Med Refill Social History Tobacco Use Types [...] Description 09/13/2024 2:30 PM EDT Office Visit [facility] [address] [place], [place] [phone] Elizabeth Dunn MD [address] [place], [place] [phone] documented as of this encounter Visit Diagnoses Not on filedocumented in this encounter Additional Health Concerns Assessment Noted Time PHQ-9 Depression Total Score: 0 08/03/19 3:13 PM EDT documented as of this encounter Care Teams Nurseryman Assistant Relationship Specialty Start Date End Date Elizabeth Dunn MD [address] [place], [place] [phone] PCP - General Family Medicine 03/17/18 Thao Barnhart Activities LeaderRecep 02/07/23 documented as of this encounter
--- OUTSIDE RECORDS SUMMARY | 2024-07-28 16:06 | XMS_ITS | Encounter Summary ---
Author Organization [employer] Address [address] [facility] 7t [place] [address] Care Team Providers Care Window Shade Ring Coverer Name Role Phone Elizabeth Dunn MD Primary Care Provide r Reason for Visit * Reason Comments Med Refill Encounter Details Date Type Department Care Team ([facility] st Contact Info) Description 07/19/2024 Refill [facility] [address] [place] [address] Elizabeth Dunn MD [address] [place] [address] Microcytic anemia Social History Tobacco Use Types Packs/Day Years [...] Description 09/13/2024 2:30 PM EDT Office Visit [facility] [address] [place] [phone] Elizabeth Dunn MD [address] [place] [address] documented as of this encounter Visit Diagnoses Diagnosis Microcytic anemia Unspecified iron deficiency anemia documented in this encounter Additional Health Concerns Assessment Noted Time PHQ-9 Depression Total Score: 0 08/20/19 24 2:32 PM EDT documented as of this encounter Care Teams Window Shade Ring Coverer Relationship Specialty Start Date End Date Elizabeth Dunn MD [address] [place] [phone] PCP - General Family Medicine 03/17/18 Thao Barnhart Electrode CleanerSenior Training And Development Rep 02/07/23 documented as of this encounter
--- OUTSIDE RECORDS SUMMARY | 2024-07-28 16:06 | XMS_ITS | Encounter Summary ---
Author Organization [employer] Address [address] [facility] 7t [place] [address] Care Team Providers Care Welder Assembler Name Role Phone Elizabeth Dunn MD Primary Care Provide r Reason for Visit * Reason Onset Date Comments Prior Authorization 07/21/2024 PUJA DENISE Reques t: Zepbound 5MG Encounter Details Date Type Department Care Team (Late st Contact Info) Description 07/21/2024 Telephone [facility] 230 [place] [address] Elizabeth Dunn MD 230 [place] [address] Prior Authorization (PUJA DENISE Request: Zepbound 5MG) Social History Tobacco Use Types Packs/Day Years [...] encounter Miscellaneous Notes * Telephone Encounter - Karol Gonzalez [place] - 07/23/2024 11:01 AM EDT Received forms below signed by PCP I fax them back to [facility] and also sent to scan. * Telephone Encounter - Donna Crespo - 07/21/2024 2:46 PM EDT CAMELIA Chambers from [facility] placed on PCP desk for signature. documented in this encounter Plan of Treatment Upcoming Encounters Date Type Department Care Team (Late st Contact Info) Description 09/13/2024 2:30 PM EDT Office Visit [facility] [address] [place] [address] Elizabeth Dunn MD [address] [place] [address] documented as of this encounter Visit Diagnoses Not on filedocumented in this encounter Additional Health Concerns Assessment Noted Time PHQ-9 Depression Total Score: 0 08/20/19 24 2:32 PM EDT documented as of this encounter Care Teams Welder Assembler Relationship Specialty Start Date End Date Elizabeth Dunn MD 230 [place] [address] PCP - General Family Medicine 03/17/18 Thao Barnhart A/C TechRoom Service Associate 02/07/23 documented as of this encounter
--- OUTSIDE RECORDS SUMMARY | 2024-07-28 16:06 | XMS_ITS | Encounter Summary ---
Author Organization [employer] Address [address] [facility] 7t [place] [address] Care Team Providers Care Nutrition Teacher Name Role Phone Elizabeth Dunn MD Primary Care Provide r Encounter Details Date Type Department Care Team (Latest Contact Info) Description 07/15/2024 2:30 PM EST Office [address] [facility] 230 [place], [place] [phone] Elizabeth Dunn MD [address] [place], [place] [phone] Class 2 severe obesity with serious comorbidity and body mass index (BMI) of 35.0 to 35.9 in adult, unspecified obesity type (CMS/HCC) (Primary Dx); Type 2 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 (CMS/HCC) Social History Tobacco Use Types Packs/Day [...] AM EDT documented as of this encounter Last Filed Vital Signs Vital Sign Reading Time Taken Comments Blood Pressure 137/84 07/15/2024 1:55 PM EST Pulse 80 07/15/2024 1:55 PM EST Temperature 35.9 ??C (96.7 ??F) 07/15/2024 1:55 PM ES T Respiratory Rate 16 07/15/2024 1:55 PM EST Oxygen Saturation 95% 07/15/2024 1:55 PM EST Inhaled Oxygen Concentration - - Weight 99 kg (218 lb 3.2 oz) 07/15/2024 1:55 PM EST Height 165.1 cm (5' 5 ) 07/15/2024 1:55 PM EST Body Mass Index 36.31 07/15/2024 1:55 PM EST documented in this encounter Progress Notes * Elizabeth Goncalves MD - 07/15/2024 2:30 PM EST SUBJECTIVE: Lelo Rivas is a 64 y.o. year old female who presents for Follow up . Acute Concerns: Patient denies any side effects from Zepbound medication, but states she has not lost any weight asof yet Social History Social History Narrative Not on file Patient Active Problem List Diagnosis Acute maxillary sinusitis Microcytic anemia Benzodiazepine dependence (CMS/HCC) Blurring of visual image Chronic idiopathic constipation Chronic left-sided low back pain with left-sided sciatica Continuous opioid dependence (CMS/HCC) Disorder of joint of spine Dizziness Fatigue Fibromyositis Headache History of hysterectomy for benign disease Hyperlipidemia Hypertension Inflammatory dermatosis Loss of hair Depression Multiple somatic complaints Peripheral edema Osteoarthritis of right glenohumeral joint Sebaceous cyst Suspected COVID-19 virus infection Venous insufficiency Urinary tract infectious disease Tinnitus Injury of kidney Excess skin of upper extremity Fibromyalgia Type 2 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 (CMS/HCC) Chronic pain 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order (CMS/HCC) Asthma COVID-19 Diabetes 1.5, managed as type 2 (CMS/HCC) Diverticulosis Feeling of incomplete bladder emptying Hesitancy of micturition Status post panniculectomy Leg pain Migraine Shoulder pain, right Symptom of leg swelling Varicose veins of right lower extremity with inflammation Protrusion of lumbar intervertebral disc Preop examination Status post lumbar spinal fusion Chronic bilateral low back pain with left-sided sciatica Pelvic pain Lower extremity pain, left Encounter for screening mammogram for malignant neoplasm of breast Breast pain S/P lumbar fusion Chronic midline low back pain with left-sided sciatica Primary insomnia Class 2 severe obesity with serious comorbidity and body mass index (BMI) of 35.0 to 35.9 in adult (CMS/[facility]) No family history on file. Review of Systems Constitutional: Negative. HENT: Negative. Respiratory: Negative. Cardiovascular: Negative. OBJECTIVE: Vitals: 07/15/24 1355 BP: 137/84 BP Location: Left arm Patient Position: Sitting BP Cuff Size: Large adult Pulse: 80 Resp: 16 Temp: 96.7 ??F (35.9 ??C) TempSrc: Oral SpO2: 95% Weight: 218 lb 3.2 oz (99 kg) Height: 5' 5 (1.651 m) Physical Exam Constitutional: Appearance: Normal appearance. Cardiovascular: Rate and Rhythm: Normal rate and regular rhythm. Pulmonary: Effort: Pulmonary effort is normal. Breath sounds: Normal breath sounds. Abdominal: General: Abdomen is flat. Musculoskeletal: Right lower leg: No edema. Left lower leg: No edema. Neurological: Mental Status: She is alert. Follow Up: Follow up in about 4 weeks (around 08/12/2024) for televisit weigh . Current Outpatient Medications on File Prior to Visit Medication Sig Dispense Refill acetaminophen (Tylenol) 500 MG tablet Take 2 tablets (1,000 mg) by mouth every 8 (eight) hours if needed for mild pain. 60 tablet 0 albuterol 108 (90 Base) MCG/ACT inhaler Inhale 1 puff every 6 (six) hours if needed. amitriptyline (Elavil) 150 MG tablet TOME NEVAEH TABLETA TOELO LOS D AL ACOSTARSE FOR 30 DAYS clonazePAM (KlonoPIN) 1 MG tablet Take 1 tablet by mouth twice daily & take 1/2 tablet by mouthdaily as needed Diclofenac Sodium 1 % gel Apply on affected area twice a day 350 g 3 ferrous sulfate 325 (65 Fe) MG EC tablet TAKE 1 TABLET BY MOUTH EVERY DAY. DO NOT CRUSH, CHEW OR SPLIT. 90 tablet 0 fluticasone (Flovent) 110 MCG/ACT inhaler Inhale 2 puffs every 12 (twelve) hours. gabapentin (Neurontin) 600 MG tablet TAKE 1 TABLET BY MOUTH 3 TIMES DAILY. 90 tablet 2 glucose blood (FREESTYLE LITE) test strip Test blood sugar twice a day 50 each 11 hydroCHLOROthiazide (HYDRODiuril) 50 MG tablet TAKE 1 TABLET BY MOUTH EVERY MORNING 90 tablet 3 lidocaine (Lidoderm) 5 % patch Apply 1 patch topically in the morning. Remove & discard patch within 12 hours or as directed by MD. 30 patch 1 lidocaine (Lidoderm) 5 % patch Apply 1 patch topically Once per day. Remove & discard patch within 12 hours or as directed by MD. 30 patch 1 Linzess 145 MCG capsule Take 1 capsule by mouth 1 (one) time each day. melatonin 5 MG tablet Take 1 tablet by mouth if needed at bedtime. metFORMIN XR (Glucophage-XR) 500 MG 24 hr tablet TOME NEVAEH TABLETA DOS VECES AL ARACELI 180 tablet 1 methocarbamol (Robaxin) 500 MG tablet TAKE 2 TABLETS (1,000 MG) BY MOUTH EVERY 8 (EIGHT) HOURS IF NEEDED FOR MUSCLE SPASMS 168 tablet 0 oxyCODONE (Roxicodone) 5 MG immediate release tablet Take 5 mg by mouth every 6 (six) hours if needed for severe pain. polyethylene glycol, PEG, 3350 (Miralax) 17 g packet Take 17 g by mouth in the morning. Semaglutide-Weight Management (Wegovy) 0.25 MG/0.5ML solution auto-injector Inject 0.5 mL (0.25 mg)under the skin 1 (one) time per week. 0.5 mL 0 senna-docusate (Chayo-Colace) 8.6-50 MG tablet Take 2 tablets by mouth 2 times daily. Tirzepatide-Weight Management (Zepbound) 2.5 MG/0.5ML solution auto-injector Inject 0.5 mL (2.5 mg)under the skin 1 (one) time per week. 2 mL 0 traZODone (Desyrel) 150 MG tablet Take 150 mg by mouth at bedtime. venlafaxine XR (Effexor XR) 150 MG 24 hr capsule TOME 2 C PSULAS POR V A ORAL TODOS LOS D EN LA MA JESSICA [DISCONTINUED] hydroCHLOROthiazide (HYDRODiuril) 50 MG tablet Take 1 tablet (50 mg) by mouth in themorning. 30 tablet 11 No current facility-administered medications on file prior to visit. Problem List Items Addressed This Visit Type 2 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 ([facility]) (Chronic) Diabetes is: controlled - Lab Results Component Value Date HGBA1C 6.7 (A) 07/15/2024 HGBA1C 6.6 (A) 04/07/2024 HGBA1C 6.8 (A) 12/09/2023 - Lab Results Component Value Date MICROALBUR 9.0 01/05/2024 CREATININE 1.01 05/13/2024 -Changes: Patient discontinued her metformin in light she is on Zepbound right now - Diabetic eye exam: Up-to-date - Diabetic foot exam: Up-to-date - Continue lifestyle modifications - Follow up: 3 months Relevant Orders POCT Glucose (Completed) POCT HGB A1C (Completed) Class 2 severe obesity with serious comorbidity and body mass index (BMI) of 35.0 to 35.9 in adult ([facility]) - Primary Extensive counseling about healthy diet and exercise on today I will go up on Zepbound to 5 mg weekly Follow-up in 4 weeks I asked patient to weight herself before her appointment Relevant Medications Tirzepatide-Weight Management (Zepbound) 5 MG/0.5ML solution auto-injector documented in this encounter Miscellaneous Notes * Assessment & Plan Note - Elizabeth Goncalves MD - 07/15/2024 4:16 PM EST Associated Problem(s): Type 2 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 (CMS/[facility]) Diabetes is: controlled - Lab Results Component Value Date HGBA1C 6.7 (A) 07/15/2024 HGBA1C 6.6 (A) 04/07/2024 HGBA1C 6.8 (A) 12/09/2023 - Lab Results Component Value Date MICROALBUR 9.0 01/05/2024 CREATININE 1.01 05/13/2024 -Changes: Patient discontinued her metformin in light she is on Zepbound right now - Diabetic eye exam: Up-to-date - Diabetic foot exam: Up-to-date - Continue lifestyle modifications - Follow up: 3 months * Assessment & Plan Note - Elizabeth Goncalves MD - 07/15/2024 4:15 PM EST Associated Problem(s): Class 2 severe obesity with serious comorbidity and body mass index (BMI) of35.0 to 35.9 in adult ([facility]) Extensive counseling about healthy diet and exercise on today I will go up on Zepbound to 5 mg weekly Follow-up in 4 weeks I asked patient to weight herself before her appointment documented in this encounter Plan of Treatment Upcoming Encounters Date Type Department Care Team (Late st Contact Info) Description 09/13/2024 2:30 PM EDT Office Visit [facility] [address] [place] [address] Elizabeth Dunn MD [address] [place] [address] documented as of this encounter Procedures Procedure Name Priority Date/Time Associated Diagnosis Comments POCT GLYCATED HEMOGLOBIN, TOTAL Routine 07/15/2024 1:56 PM EST Type 2 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 ([facility]) POCT GLUCOSE Routine 07/15/2024 1:56 PM EST Type 2 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 ([facility]) documented in this encounter Results * (ABNORMAL) POCT HGB A1C (07/15/2024 1:56 PM EST) Hemoglobin A1C 6.7(A) 4.0 - 6.0 % QC Media Lot # [id number] Lot# Expiration Date Blood 07/15/2024 1:56 PM EST Elizabeth Goncalves MD POINT OF CARE TEST EN TER/EDIT ORDERABLES Final Result * POCT Glucose (07/15/2024 1:56 PM EST) Glucose Blood, POC 164 60 - 200 mg/dL QC Media Lot # [id number] Lot# Expiration Date 025 Blood Capillary blood specimen / Unknown 07/15/2024 1:56 PM EST Elizabeth Goncalves MD POINT OF CARE TEST EN TER/EDIT ORDERABLES Final Result documented in this encounter Visit Diagnoses Diagnosis Class 2 severe obesity with serious comorbidity and body mass index (BMI) of 35.0 to 35.9 in adult, unspecified obesity type (CMS/HCC)- Primary Type 2 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 (CMS/HCC) documented in this encounter Additional Health Concerns Assessment Noted Time PHQ-9 Depression Total Score: 0 08/20/19 24 2:32 PM EDT documented as of this encounter Care Teams Nutrition Teacher Relationship Specialty Start Date End Date Elizabeth Dunn MD [address] [place] [address] PCP - General Family Medicine 03/17/18 Thao Barnhart Liquor RunnerCircular Sawyer Stone 02/07/23 documented as of this encounter
--- OUTSIDE RECORDS SUMMARY | 2024-07-28 16:06 | XMS_ITS | Clinical Summary ---
Author Organization [facility], Address [address] [place] [address] Phone Care Team Providers Care Sprinkler Tender Name Role Phone Elizabeth Dunn MD Primary [...] ID:Not on file Type:Not on file Address: [place] [id number] MEDICAID [place] Care Teams Sprinkler Tender Relationship Specialty Start Date End Date Elizabeth Dunn MD [address] [place] [phone] PCP - General Internal Medicine 11/17/20
--- OUTSIDE RECORDS SUMMARY | 2024-07-28 16:06 | XMS_ITS | Encounter Summary ---
Author Organization [employer] Address [address] [facility] 7t [place] [address] Care Team Providers Care Die Tripper Name Role Phone Elizabeth Dunn MD Primary Care Provide r Reason for Visit * Reason Onset Date Comments Med Refill 07/05/2024 Encounter Details Date Type Department Care Team ([facility] st Contact Info) Description 07/05/2024 Refill [facility] [address] [place] [address] Elizabeth Dunn MD [address] [place] [address] Class 2 severe obesity with serious comorbidity [...] Description 09/13/2024 2:30 PM EDT Office Visit [facility] [address] [place] [address] Elizabeth Dunn MD [address] [place] [address] documented as of this encounter Visit Diagnoses Diagnosis Class 2 severe obesity with serious comorbidity and body mass index (BMI) of 35.0 to 35.9 in adult, unspecified obesity type (CMS/HCC) documented in this encounter Additional Health Concerns Assessment Noted Time PHQ-9 Depression Total Score: 0 08/20/19 24 2:32 PM EDT documented as of this encounter Care Teams Die Tripper Relationship Specialty Start Date End Date Elizabeth Dunn MD [address] [place] [address] PCP - General Family Medicine 03/17/18 Thao Barnhart Route Delivery DriverManager Rn Case 02/07/23 documented as of this encounter
--- OUTSIDE RECORDS SUMMARY | 2024-07-28 16:06 | XMS_ITS | Encounter Summary ---
Author Organization [employer] Address [address] [facility] 7t [place] [address] Care Team Providers Care Skidway Man Name Role Phone Elizabeth Dunn MD Primary Care Provide r Reason for Visit * Reason Onset Date Comments Chart Prep 07/14/2024 Encounter Details Date Type Department Care Team ([facility] st Contact Info) Description 07/14/2024 Telephone [facility] [address] [place] [address] Elizabeth Dunn MD [address] [place] [address] Chart Prep Social History Tobacco Use Types Packs/Day Years [...] encounter Miscellaneous Notes * Telephone Encounter - Adrian Choudhary [place] - 07/14/2024 2:32 PM EST Chart Prep Labs: done Images: done Vaccines due: yes Referrals: BOOKED APPTS . Screenings: pap smear , eye exam , Foot Exam Overdue care gaps: A1C, Glucose, SDOH, PHQ-9 documented in this encounter Plan of Treatment Upcoming Encounters Date Type Department Care Team (Late st Contact Info) Description 09/13/2024 2:30 PM EDT Office Visit [facility] [address] [place] [address] Elizabeth Dunn MD [address] [place] [address] documented as of this encounter Visit Diagnoses Not on filedocumented in this encounter Additional Health Concerns Assessment Noted Time PHQ-9 Depression Total Score: 0 08/20/19 24 2:32 PM EDT documented as of this encounter Care Teams Skidway Man Relationship Specialty Start Date End Date Elizabeth Dunn MD [address] [place] [address] PCP - General Family Medicine 03/17/18 Thao Barnhart Sausage LinkerHay Stacker Operator 02/07/23 documented as of this encounter
--- OUTSIDE RECORDS SUMMARY | 2024-07-28 16:06 | XMS_ITS | Clinical Summary ---
Author Organization [address] [facility] Address [address] [place] [address] Phone Care Team Providers Care Program Management Manager Name Role Phone Elizabeth Dunn MD Primary [...] to complete this topic Insurance [place] Care Teams Program Management Manager Relationship Specialty Start Date End Date Elizabeth Dunn MD [address] [place] [phone] PCP - General Internal Medicine 02/12/24
--- OUTSIDE RECORDS SUMMARY | 2024-07-28 16:06 | XMS_ITS | Encounter Summary ---
Author Organization [employer] Address [address] [facility] 7t [place] [address] Care Team Providers Care Paper Baling Machine Operator Name Role Phone Elizabeth Dunn MD Primary Care Provide r Reason for Visit * Reason Comments Med Change Request Encounter Details Date Type Department Care Team ([facility] st Contact Info) Description 07/23/2024 Refill [facility] [address] [place] [address] Elizabeth Dunn MD [address] [place] [address] Class 2 severe obesity with serious comorbidity [...] enough money to get more: Never True 04/ 02/2024 Transportation Answer Date Recorded In the [...] Description 09/13/2024 2:30 PM EDT Office Visit [facility] [address] [place] [address] Elizabeth Dunn MD [address] [place] [phone] documented as of this encounter Visit Diagnoses Diagnosis Class 2 severe obesity with serious comorbidity and body mass index (BMI) of 35.0 to 35.9 in adult, unspecified obesity type (CMS/HCC) documented in this encounter Additional Health Concerns Assessment Noted Time PHQ-9 Depression Total Score: 0 08/20/19 24 2:32 PM EDT documented as of this encounter Care Teams Paper Baling Machine Operator Relationship Specialty Start Date End Date Elizabeth Dunn MD [address] [place] [phone] PCP - General Family Medicine 03/17/18 Thao Barnhart Slitter And Cutter OperatorVenetian Blind Washer 02/07/23 documented as of this encounter
--- OUTSIDE RECORDS SUMMARY | 2024-07-28 16:06 | XMS_ITS | Encounter Summary ---
Author Organization [employer] Address [address] [facility] 7t [place] [address] Care Team Providers Care Campus Coordinator Name Role Phone Elizabeth Dunn MD Primary Care Provide r Reason for Visit * Reason Onset Date Comments Medication Question 07/26/2024 Encounter Details Date Type Department Care Team ([facility] st Contact Info) Description 07/26/2024 Telephone [facility] [address] [place] [address] Elizabeth Dunn MD [address] [place] [address] Medication Question Social History Tobacco Use Types Packs/Day Years [...] encounter Miscellaneous Notes * Telephone Encounter - Nora Martinez RN - 07/26/2024 9:20 AM EDT TC placed to pt., pt. Reports waiting two weeks for increased dose of zepbound (5mg/week). Advised pt. Dose was sent Sunday 07/23, pt. Reports she has not been to the pharmacy since then but will go today and let us know if there are any difficulties picking up increased dose. * Telephone Encounter - Wander Ruiz - 07/26/2024 8:31 AM EDT TC from pt requesting a call back to discuss medication Tirzepatide-Weight Management (Zepbound) 5 MG/0.5ML solution auto-injector. Contact pt at [phone] documented in this encounter Plan of Treatment Upcoming Encounters Date Type Department Care Team (Late st Contact Info) Description 09/13/2024 2:30 PM EDT Office Visit [facility] [address] [place] [address] Elizabeth Dunn MD [address] [place], [place] [phone] documented as of this encounter Visit Diagnoses Not on filedocumented in this encounter Additional Health Concerns Assessment Noted Time PHQ-9 Depression Total Score: 0 08/20/19 24 2:32 PM EDT documented as of this encounter Care Teams Campus Coordinator Relationship Specialty Start Date End Date Elizabeth Dunn MD [address] [place] [address] PCP - General Family Medicine 03/17/18 Thao Barnhart Waiter/Waitress InformalAssistant Infant Teacher 02/07/23 documented as of this encounter
--- OUTSIDE RECORDS SUMMARY | 2024-07-28 16:06 | XMS_ITS | Encounter Summary ---
Author Organization [employer] Address [address] [facility] 7t [place] [address] Care Team Providers Care Circle Saw Operator Name Role Phone Elizabeth Dunn MD Primary Care Provide r Reason for Visit * Reason Comments Med Refill Encounter Details Date Type Department Care Team ([facility] st Contact Info) Description 07/14/2024 Refill [facility] [address] [place] [address] Elizabeth Dunn MD [address] [place] [address] Primary hypertension Social History Tobacco Use Types Packs/Day Years [...] 2:30 PM EDT Office Visit [facility] [address] [place] [phone] Elizabeth Dunn MD [address] [place] [phone] documented as of this encounter Visit Diagnoses Diagnosis Primary hypertension Unspecified essential hypertension documented in this encounter Additional Health Concerns Assessment Noted Time PHQ-9 Depression Total Score: 0 08/20/19 24 2:32 PM EDT documented as of this encounter Care Teams Circle Saw Operator Relationship Specialty Start Date End Date Elizabeth Dunn MD [address] [place] [phone] PCP - General Family Medicine 03/17/18 Thao Barnhart Bond BrokerField Supervisor 02/07/23 documented as of this encounter
--- OUTSIDE RECORDS SUMMARY | 2024-07-28 16:06 | XMS_ITS | Encounter Summary ---
Author Organization [employer] Address [address] [facility] 7t [place] [address] Care Team Providers Care Combine Mechanic Name Role Phone Elizabeth Dunn MD Primary Care Provide r Encounter Details Date Type Department Care Team ([facility] st Contact Info) Description 08/29/2023 Telephone [facility] [address] [place] [address] Elizabeth Dunn MD [address] [place] [address] Social History Tobacco Use Types Packs/Day Years [...] Referral faxed to [facility] requesting increase in AIR QUALITY SPECIALIST hours due to change in condition. * Telephone Encounter - Iva Pisano RN - 08/29/2023 4:18 PM EDT Paperwork sent to Provider for signature to increase AIR QUALITY SPECIALIST hours due to patient's condition change after Lumbar fusion procedure. Needs more assistance with ADL's. Once provider signs form I will fax to [employer]. documented in this encounter Plan of Treatment Upcoming Encounters Date Type Department Care Team (Late st Contact Info) Description 09/13/2024 2:30 PM EDT Office Visit [facility] [address] [place] [address] Elizabeth Dunn MD [address] [place] [address] documented as of this encounter Visit Diagnoses Not on filedocumented in this encounter Additional Health Concerns Assessment Noted Time PHQ-9 Depression Total Score: 0 08/20/19 24 2:32 PM EDT documented as of this encounter Care Teams Combine Mechanic Relationship Specialty Start Date End Date Elizabeth Dunn MD [address] [place] [address] PCP - General Family Medicine 03/17/18 Thao Barnhart Optimization AnalystFood Counselor 02/07/23 documented as of this encounter
--- OUTSIDE RECORDS SUMMARY | 2024-07-28 16:06 | XMS_ITS | Encounter Summary ---
Author Organization [employer] Address [address] [facility] 7t [place] [address] Care Team Providers Care Senior Planning Analyst Name Role Phone Elizabeth Dunn MD Primary Care Provide r Reason for Visit * Reason Onset Date Comments Med Refill 06/21/2024 Encounter Details Date Type Department Care Team ([facility] st Contact Info) Description 06/21/2024 Telephone [facility] [address] [place] [address] Elizabeth Dunn MD [address] [place] [address] Med Refill Social History Tobacco Use Types [...] 500 MG tablet To be sent to: [facility]/pharmacy #[id number] [place] [address] documented in this encounter Plan of Treatment Upcoming Encounters Date Type Department Care Team (Late st Contact Info) Description 09/13/2024 2:30 PM EDT Office Visit [facility] [address] [place] [address] Elizabeth Dunn MD [address] [place] [address] documented as of this encounter Visit Diagnoses Not on filedocumented in this encounter Additional Health Concerns Assessment Noted Time PHQ-9 Depression Total Score: 0 08/20/19 24 2:32 PM EDT documented as of this encounter Care Teams Senior Planning Analyst Relationship Specialty Start Date End Date Elizabeth Dunn MD [address] [place] [address] PCP - General Family Medicine 03/17/18 Thao Barnhart Steamtable WorkerCoordinate Measuring Machine Technician 02/07/23 documented as of this encounter
--- OUTSIDE RECORDS SUMMARY | 2024-07-28 16:06 | XMS_ITS | Encounter Summary ---
Author Organization [email or web address] Address [address] [place] [address] 7t [place] [address] Care Team Providers Care Utility Teller Name Role Phone Elizabeth Dunn MD Primary Care Provide r Reason for Visit * Reason Onset Date Comments Med Refill 12/04/2022 Encounter Details Date Type Department Care Team ([facility] st Contact Info) Description 12/04/2022 Telephone [facility] [address] [place] [address] Elizabeth Dunn MD [address] [place] [address] Med Refill Social History Tobacco Use Types [...] Description 09/13/2024 2:30 PM EDT Office Visit [facility] [address] [place], [place] [phone] Elizabeth Dunn MD [address] [place], [place] [phone] documented as of this encounter Visit Diagnoses Not on filedocumented in this encounter Additional Health Concerns Assessment Noted Time PHQ-9 Depression Total Score: 0 08/03/19 3:13 PM EDT documented as of this encounter Care Teams Utility Teller Relationship Specialty Start Date End Date Elizabeth Dunn MD [address] [place], [place] [phone] PCP - General Family Medicine 03/17/18 Thao Barnhart Hair ColoristFeed Weigher 02/07/23 documented as of this encounter
--- OUTSIDE RECORDS SUMMARY | 2024-07-28 16:06 | XMS_ITS | Encounter Summary ---
Author Organization [employer] Address [address] [facility] 7t [place] [address] Care Team Providers Care Maintenance Mechanic Supervisor Name Role Phone Elizabeth Dunn MD Primary Care Provide r Encounter Details Date Type Department Care Team (Late st Contact Info) Description 03/26/2024 Orders Only [facility] [address] [place] [address] Elizabeth Dunn MD [address] [place] [address] Social History Tobacco Use Types Packs/Day Years [...] Description 09/13/2024 2:30 PM EDT Office Visit [facility] [address] [place] [phone] Elizabeth Dunn MD [address] [place] [phone] documented as of this encounter Visit Diagnoses Not on filedocumented in this encounter Additional Health Concerns Assessment Noted Time PHQ-9 Depression Total Score: 0 08/20/19 24 2:32 PM EDT documented as of this encounter Care Teams Maintenance Mechanic Supervisor Relationship Specialty Start Date End Date Elizabeth Dunn MD [address] [place] [phone] PCP - General Family Medicine 03/17/18 Thao Barnhart Full Stack Net DeveloperTechnical Expert 02/07/23 documented as of this encounter
--- OUTSIDE RECORDS SUMMARY | 2024-07-28 16:06 | XMS_ITS | Clinical Summary ---
Author Organization [facility] Address [address] [facility] [address] [place] [address] Care Team Providers Care Filtration Plant Operator Name Role Phone Elizabeth Dunn MD [...] V A ORAL TODOS LOS D EN DORA LOPEZ 04/08/20 23 Active lidocaine (Lidoderm) 5 % patchIndications: Protrusion of lumbar intervertebral disc Apply 1 patch topically in the morning. Remove & discard patch within 12 hours or as directed by MD. 30 patch 1 05/13/19 24 Active oxyCODONE (Roxicodone) 5 MG immediate release [...] per week. 0.5 mL 04/07/20 24 Active gabapentin (Neurontin) 600 MG tabletIndications :S/P lumbar fusion,Chronic bilateral low back pain with left-sided sciatica TAKE 1 TABLET BY MOUTH 3 TIMES DAILY. 90 tablet 2 06/21/19 25 Active Tirzepatide-Weigh t Management (Zepbound) 2.5 MG/0.5ML solution auto-injectorIndi cations:Class 2 severe obesity with serious comorbidity and body mass index (BMI) of 35.0 to 35.9 in adult, unspecified obesity type (CMS/HCC) Inject 0.5 mL (2.5 mg) under the skin 1 (one) time per week. 2 mL 07/05/19 25 Active hydroCHLOROthiazi de (HYDRODiuril) 50 MG tabletIndications :Primary hypertension TAKE 1 TABLET BY MOUTH EVERY MORNING 90 tablet 3 07/15/19 25 Active methocarbamol (Robaxin) 500 MG tabletIndications :Chronic midline low back pain with left-sided sciatica TAKE 2 TABLETS (1,000 MG) BY MOUTH EVERY 8 (EIGHT) HOURS IF NEEDED FOR MUSCLE SPASMS 168 tablet 07/20/19 25 Active ferrous sulfate 325 (65 Fe) MG EC tabletIndications :Microcytic anemia TAKE 1 TABLET BY MOUTH EVERY DAY. DO NOT CRUSH, CHEW OR SPLIT. 90 tablet 07/21/19 25 Active Tirzepatide-Weigh t Management (Zepbound) 5 MG/0.5ML solution auto-injectorIndi cations:Class 2 severe obesity with serious comorbidity and body mass index (BMI) of 35.0 to 35.9 in adult, unspecified obesity type (CMS/HCC) INJECT 0.5 ML (5 MG) UNDER THE SKIN 1 (ONE) TIME PER WEEK. 2 mL 07/24/19 25 Active hydroCHLOROthiazi de (HYDRODiuril) 50 MG tabletIndications :Primary hypertension Take 1 tablet (50 mg) by mouth in the morning. 30 tablet 11 07/15/19 24 2024 Discontinued ferrous sulfate 325 (65 Fe) MG EC tabletIndications :Microcytic anemia TAKE 1 TABLET BY MOUTH EVERY DAY. DO NOT CRUSH, CHEW OR SPLIT. 90 tablet 04/20/20 24 2024 Discontinued Tirzepatide-Weigh t Management (Zepbound) 2.5 MG/0.5ML solution auto-injectorIndi cations:Class 2 severe obesity with serious comorbidity and body mass index (BMI) of 35.0 to 35.9 in adult, unspecified obesity type (CMS/HCC) Inject 0.5 mL (2.5 mg) under the skin 1 (one) time per week. 2 mL 05/27/19 25 2024 Discontinued(R eorder (will not trigger notification to Pharmacy)) methocarbamol (Robaxin) 500 MG tabletIndications :Chronic midline low back pain with left-sided sciatica TAKE 2 TABLETS (1,000 MG) BY MOUTH EVERY 8 (EIGHT) HOURS IF NEEDED FOR MUSCLE SPASMS 168 tablet 06/21/19 25 2024 Discontinued Tirzepatide-Weigh t Management (Zepbound) 5 MG/0.5ML solution auto-injectorIndi cations:Class 2 severe obesity with serious comorbidity and body mass index (BMI) of 35.0 to 35.9 in adult, unspecified obesity type (CMS/HCC) Inject 0.5 mL (5 mg) under the skin 1 (one) time per week. 2 mL 07/16/19 25 2024 Discontinued Active Problems Problem Noted Date Diagnosed Date Class 2 severe obesity with serious comorbidity and body mass index (BMI) of 35.0 to 35.9 in adult 04/07/2024 Assessment & Plan (07/15/2024 4:15 PM EST): Extensive counseling about healthy diet and exercise on today I will go up on Zepbound to 5 mg weekly Follow-up in 4 weeks I asked patient to weight herself before her appointment Assessment & Plan (04/07/2024 1:23 PM EST): [...] left foot, she is being manage by pain/american indian policy specialist (medications prescribed by specialist only) Chronic bilateral low back pain with left-sided sciatica 08/20/2023 Assessment & Plan (01/07/2024 2:12 PM EDT): I will increase gabapentin to 600mg TID and refer her back to pain management Pelvic pain 08/20/2023 Assessment & Plan (08/21/2023 12:20 PM EDT): [facility] referral as per patient's request Preop examination [...] ophthalmic andrew festations 10/11/2011 Assessment & Plan (07/15/2024 4:16 PM EST): Diabetes is: controlled - Lab [...] lifestyle modifications - Follow up: 3 months Assessment & Plan (04/07/2024 1:19 PM EST): - Lab Results Component Value Date HGBA1C 6.6 (A) 04/07/2024 HGBA1C 6.8 (A) 12/09/2023 HGBA1C 6.3 (A) 04/21/2023 - Lab Results Component Value Date MICROALBUR 9.0 01/05/2024 CREATININE 0.86 01/25/2024 -Changes: I will prescribed for patient for patient rita, it would help also to achieve A1c [...] Encounters Date Type Department Care Team Description 07/26/2024 Telephone [facility] [address] [place], [place] [phone] Elizabeth Dunn MD Medication Question 07/23/2024 Population Health Risk Score [facility] () Department [address] [phone] Provider, Population Health Generic 07/23/2024 Refill [facility] [address] [place], [place] [phone] Elizabeth Dunn MD Class 2 severe obesity with serious comorbidity and body mass index (BMI) of 35.0 to 35.9 in adult, unspecified obesity type ([facility]) 07/21/2024 Telephone [facility] [address] [place], [place] [phone] Elizabeth Dunn MD Prior Authorization ( [place] Request: Zepbound 5MG) 07/19/2024 Refill [facility] [address] [place], [place] [phone] Elizabeth Dunn MD Microcytic anemia 07/16/2024 Refill [facility] [address] [place] [phone] Elizabeth Dunn MD Chronic midline low back pain with left-sided sciatica 07/15/2024 2:30 PM EST Office Visit [facility] [address] [place] [phone] Elizabeth Dnun MD Class 2 severe obesity with serious comorbidity and body mass index (BMI) of 35.0 to 35.9 in adult, unspecified obesity type ([facility]) (Primary Dx); Type 2 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 ([facility]) 07/15/2024 Travel 07/14/2024 Telephone [facility] [address] [place] [phone] Elizabeth Dunn MD Chart Prep 07/14/2024 Refill [facility] [address] [place] [phone] Elizabeth Dunn MD Primary hypertension 07/05/2024 Refill [facility] [address] [place] [phone] Elizabeth Dunn MD Class 2 severe obesity with serious comorbidity and body mass index (BMI) of 35.0 to 35.9 in adult, unspecified obesity type ([facility]/H[facility]) 06/21/2024 Telephone [facility] [address] [place] [phone] Elizabeth Dunn MD Med Refill 06/21/2024 Refill [facility] [address] [place] [phone] Elizabeth Dunn MD S/P lumbar fusion; Chronic bilateral low back pain with left-sided sciatica; Chronic midline low back pain with left-sided sciatica 05/27/2024 2:30 PM EST Telemedicine [facility] [address] [place] [phone] Elizabeth Dunn MD Class 2 severe obesity with serious comorbidity and body mass index (BMI) of 35.0 to 35.9 in adult, unspecified obesity type ([facility]) (Primary Dx); Status post lumbar spinal fusion 05/27/2024 Travel 05/13/2024 Orders Only GENERIC EXTERNAL DATA DEPARTMENT Provider, Generic External Data 05/07/2024 Telephone [facility] [address] [place] [phone] Elizabeth Dunn MD Med Refill from Last 3 Months Immunizations Name Administration [...] Mass Index 36.31 07/15/2024 1:55 PM EST Plan of Treatment Upcoming Encounters Date Type Department Care Team (Late st Contact Info) Description 09/13/2024 2:30 PM EDT Office Visit [facility] [address] [place] [phone] Elizabeth Dunn MD [address] [place] [address] Health Maintenance Due Date Last Done Comments [...] - Risk 60-74 years 1-dose series) 2022 Alcohol/Substance Use Screening 08/19/2024 08/20/2023 Depression Screening 08/19/2024 08/20/2023, 08/20/19 SDOH Screening 08/19/2024 08/20/2023 Diabetes: Urine Protein Screening 01/04/2025 01/05/2024, 05/31/2020 Lipid Panel 01/04/2025 01/05/2024, 05/31/2020 Diabetes: Hemoglobin A1C 01/15/2025 025, 04/07/2024, 12/09/2023, Additional history exists Mammogram 02/09/2025 02/10/2024, 05/2023, 05/10/2022, Additional history exists Tobacco Screening 07/15/2025 07/15/2024 Colonoscopy 12/10/2025 12/10/2022 Colorectal Cancer Screening 12/10/2025 [...] without ophthalmic manifestations (CMS/HCC) POCT GLUCOSE Routine 07/15/2024 1:56 PM EST Type 2 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 (CMS/HCC) XR FOOT 3+ VIEWS LEFT Routine 05/28/2024 11:00 AM EST CULTURE, URINE, ROUTINE Routine 05/13/2024 6:18 PM EST LIPASE Routine 05/13/2024 5:28 PM EST BASIC METABOLIC PANEL Routine 05/13/2024 5:28 PM EST HEPATIC FUNCTION PANEL Routine 05/13/2024 5:28 PM EST URINALYSIS, COMPLETE, WITH REFLEX TO CULTURE Routine 05/13/2024 5:28 PM EST CBC WITH AUTO DIFFERENTIAL Routine 05/13/2024 5:28 PM EST BI MAMMOGRAM DIAGNOSTIC TOMOSYNTHESIS BILATERAL Routine 02/10/2024 [...] Relevant to Health Maintenance Results * (ABNORMAL) POCT HGB A1C (07/15/2024 [...] Media Lot # [id number] Lot# Expiration Date Blood Capillary blood specimen / Unknown 07/15/2024 1:56 PM EST Elizabeth Goncalves MD POINT OF CARE TEST EN TER/EDIT ORDERABLES Final Result * XR Foot 3+ Views Left (05/28/2024 11:00 AM EST) Anatomical Region Laterality Modality Lower Extremities, Foot Left Radiogra phic Imaging 05/28/2024 11:0 0 AM EST Narrative 05/31/2024 3:35 PM EST ? [facility] [facility] ?[address] ?[place] [address] ?XRay Report ? Signed ? Patient: Bailon Jack,Lelo R ?MR# ?? : [id number] ? : 1960 ?Acct:[id number] ? Age/Sex: 64 / F ?ADM Date: 05/28/24 ? Loc: HO.XRAY ? Attending Dr: Kimberly DELCID ? Ordering Physician: Kimberly Castrejon ?? Date of Service: 05/28/24 ?? Procedure(s): XR foot LT min 3V ?? Accession Number(s): [id number] ? cc: Elizabeth Dunn MD; Kimberly Castrejon [...] PM EST ?? RP ? Dictated By: ?Faberman,Fracisco MD ? Signed By: ?<Electronically signed by Fracisco Dockery MD in OV> ?05/31/24 1532 ? DD/ 1100 ? TD/TT: 05/28/24 1112 ? Weapons Designer: ? Procedure Note Noah Qureshi - 05/31/[address] [address] XRay Report Signed Patient: Lelo Plata RMR# : [id number] : 2Acct:[id number] Age/Sex: 64 / FADM Date: 05/28/24 Loc: [facility] Attending Dr: Kimberly DELCID Ordering Physician: Kimberly Castrejon Date of Service: 05/28/24 Procedure(s): XR foot LT min 3V Accession Number(s): [id number] cc: Elizabeth Dunn MD; Kimberly Castrejon EXAMINATION: [...] 05/31/24 1532 DD/ 1100 TD/TT: 05/28/24 1112 Weapons Designer: [facility] External Provider IMG XR PROCEDURES Final Result * Culture, Urine, Routine (05/13/2024 6:18 PM EST) Urine Urine specimen obtained by clean catch procedure / Unknown 05/13/2024 6:18 PM EST 05/13/2024 6:20 PM EST Comment:[facility] Narrative [facility] - 05/15/2024 9:56 AM EST Urine Culture Report Result Urine Culture 10,000 to 50,000 cfu/ml Urine Culture Mixed bacterial tri characteristic of Urine Culture urogenital contamination. Specimen Source: Urine clean catch Generic External Data Provider LAB MICROBIOLOGY - GENERAL ORDERABLES Final Result [facility] [address] [place] [phone] * (ABNORMAL) Urinalysis, Complete, with Reflex to Culture (05/13/2024 5:28 PM EST) Color Urine Yellow [facility] Appearance Urine Clear [facility] PH 5.0 5.0 - 9.0 [facility] Glucose Urine UA Negative Negative mg/dL [facility] Urine Blood Negative Negative [facility] Specific Simpson - Urine >=1.030(H) 1.005 - 1.025 [facility] Urine Protein Negative Neg-Trace mg/dL [facility] Urine Ketones Trace Negative mg/dL [facility] Nitrite Urine Negative Negative [facility] Leukocyte Esterase Urine Trace(A) Negative [facility] RBC Urine 0-2 0 - 2 /HPF [facility] Urine WBC 6-10(A) 0 - 5 /HPF [facility] Urine Squamous Epithelial Cell 6-10 0 - 2 /HPF [facility] Urine Bacteria Trace None Seen [facility] Hyaline Casts, Urine 0-2 0 - 2 /LPF [facility] 05/13/2024 5:28 PM EST 05/13/2024 5:31 PM EST Narrative [facility] - 05/13/2024 6:14 PM EST [id number], Clean Catch us Generic External Data Provider LAB URINE ORDERAB LES Final Result [facility] [address] [place] [phone] * (ABNORMAL) CBC auto differential (05/13/2024 5:28 PM EST) White Blood Count 10.2 4.8 - 10.8 X10*3/uL [facility] Red Blood Count 4.64 4.20 - 5.50 X10*6/uL [facility] Hemoglobin 11.3(L) 12.0 - 16.0 g/dl [facility] Hematocrit 36.1(L) 37.0 - 47.0 % [facility] Mean Corpuscular Volume 77.8(L) 80.0 - 98.0 fL [facility] Mean Corpuscular Hemoglobin 24.4(L) 27.0 - 33.0 pg [facility] Mean Corpuscular HGB Conc 31.3 31.0 - 35.0 g/dl [facility] Red Cell Distribution Width 18.3(H) 11.0 - 16.0 % [facility] Platelet Count 294 160 - 400 X10*3/uL [facility] Mean Platelet Volume 9.8 9.4 - 12.3 fL [facility] Neutrophils Percent Auto 67.0 45 - 73 % [facility] Imm Gran Pct Auto 0.6(H) 0.0 - 0.4 % [facility] Lymphocytes Percent Auto 23.3 20 - 40 % [facility] Monocytes Percent Auto 7.2 2 - 11 % [facility] Eosinophils Percent Auto 1.7 0 - 4 % [facility] Basophils Percent Auto 0.2 0 - 2 % [facility] NRBC Pct Auto 0.0 0.0 - 0.2 /100WBC [facility] Neutrophils Absolute Auto 6.8 2.0 - 8.3 x10*3/uL [facility] Imm Gran Abs Auto 0.06(H) 0.00 - 0.03 X10*3/uL [facility] Lymphocytes Absolute Auto 2.4 1.2 - 4.9 X10*3/uL [facility] Monocytes Absolute Auto 0.7 0.1 - 1.2 X10*3/uL [facility] Eosinophils Absolute Auto 0.2 0.0 - 0.4 X10*3/uL [facility] Basophils Absolute Auto 0.0 0.0 - 0.2 X10*3/uL [facility] NRBC Abs Auto 0.000 0.0 - 0.012 X10*3/uL [facility] 05/13/2024 5:28 PM EST 05/13/2024 5:31 PM EST Generic External Data Provider LAB BLOOD ORDERAB LES Final Result Performing Organization Address [facility] Co de Phone Number [facility] [address] [place] [phone] * Lipase (05/13/2024 5:28 PM EST) Pathologist [facility] Lipase 34 8 - 78 U/L [facility] 05/13/2024 5:28 PM EST 05/13/2024 5:31 PM EST Generic External Data Provider LAB BLOOD ORDERAB LES Final Result Performing Organization Address [facility] Phone Number [facility] [address] [place] [address] [phone] * Hepatic Function Panel (05/13/2024 5:28 PM EST) [facility] Bilirubin, Total 0.1 0.0 - 1.0 mg/dL [facility] Bilirubin, Direct <0.2 0.0 - 0.5 mg/dL [facility] Aspartate Amino Transferase 22 5 - 31 U/L [facility] Comment:Slight Hemolysis.Int erpret result with caution. Alanine Aminotransferase 13 0 - 31 U/L [facility] Total Protein 7.5 6.5 - 8.0 g/dL [facility] Albumin Level 3.9 3.5 - 5.0 g/dL [facility] Alkaline Phosphatase 84 39 - 117 U/L [facility] 05/13/2024 5:28 PM EST 05/13/2024 5:31 PM EST Generic External Data Provider LAB BLOOD ORDERAB LES Final Result Performing Organization Address [facility] Phone Number [facility] [address] [place] [phone] * (ABNORMAL) Basic Metabolic Panel (05/13/2024 5:28 PM EST) Sodium 138 135 - 145 mmol/L [facility] Potassium 4.4 3.3 - 5.1 mmol/L [facility] Comment:Slight Hemolysis.Int erpret result with caution. Chloride 104 96 - 108 mmol/L [facility] Carbon Dioxide 26 22 - 29 mmol/L [facility] Anion Gap 12 12 - 20 [facility] Urea Nitrogen (BUN) 21(H) 9 - 16 mg/dL [facility] Creatinine, Serum 1.01 0.5 - 1.4 mg/dL [facility] Creatinine Clr Calc Pharmacy 65.9 [facility] Comment:Provided height and weight: 165.1 cm,95.254 kg.eGFR (calculated from the MDRD study equation) and eCrCl(calculated from the Cockcroft-Gault equation) are based ondifferent parameters and may not yield comparable results.If eCrCl result is absurd, please check patient'sheight/weight. Estimated Glomerular Filt Rate 56 [facility] Comment:Chronic Kidney Disea se: Estimated GFR < 60 mL/min/1.66p4Njjzyp Kidney Disease: Estimated GFR < 15 mL/min/1.73m2 Glucose 84 60 - 115 mg/dL [facility] Calcium 8.7 8.4 - 10.2 mg/dL [facility] 05/13/2024 5:28 PM EST 05/13/2024 5:31 PM EST us Generic External Data Provider LAB BLOOD ORDERAB LES Final Result [facility] [address] [place] [phone] * BI Mammogram Diagnostic Tomosynthesis Bilateral (02/10/2024 2:00 PM EDT) Anatomical Region Laterality Modality Breast Bilateral Mammography 02/10/2024 2:00 PM EDT Narrative 02/10/2024 5:26 PM EDT ? [facility] ? [address] ?[place] [address] ? Mammography Report ? Signed ? Patient: Rob Jack,Lelo R ?MR#: ?? [id number] ? : 1960 ?Acct:[id number] ? Age/Sex: 63 / F ?ADM Date: 02/10/24 ? Loc: HO.MAMMO ? Attending Dr: Elizabeth Goncalves MD ? Ordering Physician: Elizabeth Dunn MD ?Results: ?? 1Negative ? Date of Service: 02/10/24 ?Follow Up: 1 Year From Orig ?? inal Mammogram ? Procedure(s): MM tomosynthesis diagnostic BI ?? Accession Number(s): [id number] ? cc: Elizabeth Dunn MD ? EXAMINATION: [...] signed by Kory Johnson MD in OV> ?02/10/24 1724 ? DD/ 1400 ? TD/TT: 02/10/24 1410 ? Weapons Designer: ? Procedure Note Kiera, Image - 02/10/2024 [facility] [address] [place], [place] [address] Mammography Report Signed Patient: Lelo Watters RMR#: [id number] : 2Acct:[id number] Age/Sex: 63 / FADM Date: 02/10/24 Loc: HO.MAMMO Attending Dr: Elizabeth Goncalves MD Ordering Physician: Elizabeth Dunn MDResults: 1Negative Date of Service: 02/10/24Follow Up: 1 Year From [facility] ina Mammogram Procedure(s): MM tomosynthesis diagnostic BI Accession Number(s): [id number] cc: Elizabeth Dunn MD EXAMINATION: MM DIAGNOSTIC [...] Kory Johnson MD 02/10/2024 05:24 PM EDT RP Dictated By: Kory Johnson MD Signed By: <Electronically signed by Kory Johnson MD in OV> 02/10/24 1724 DD/ 1400 TD/TT: 02/10/24 1410 Weapons Designer: us Elizabeth Goncalves MD IMG BI PROCEDURES Patrick wendie Result - Final * Albumin, Random Urine W/Creatinine (01/05/2024 8:25 AM EDT) Creatinine, Urine 223.33 mg/dL [facility] Microalbumin Urine 9.0 mg/L [facility] Microalbum Creatinine Ratio Ur 4.0 <30 ug/mg cr [facility] Comment:Albumin/Creatinine R atio Reference Ranges: Normal: < 30 ug/mg creatinine Microalbuminuria: 30 - 300 ug/mg creatinineClinical Albuminuria: > 300 ug/mg creatinine Urine (Urine, Random) 01/05/2024 8:25 AM EDT 01/05/2024 11:48 AM EDT us Elizabeth Goncalves MD LAB URINE ORDERABLES Final Result [facility] [address] [place] [phone] * (ABNORMAL) Lipid Panel with Reflex to Direct LDL (01/05/2024 8:22 AM EDT) Triglycerides 180(H) <150 mg/dL [facility] Comment:Desirable Triglyceri de: less than 150 mg/dLBorderline High Triglyceride 150-199 mg/dLHigh Triglyceride: 200-499 mg/dLVery High Triglyceride: greater than or equal to 5OO mg/dL Cholesterol 240(H) <200 mg/dL [facility] Comment:Desirable Cholestero l: less than 200 mg/dLBorderline High Cholesterol: 200-239 mg/dLHigh Cholesterol: greater than 239 mg/dL LDL Cholesterol Calculated 138(H) <100 mg/dL [facility] Comment:Desirable LDL: less than 100 mg/dLNear Optimal/Above Optimal LDL: 110- 129 mg/dLBorderline High LDL: 130-159 mg/dLHigh LDL: 160-189 mg/dLVery High LDL: greater than or equal to 190 mg/dL HDL Cholesterol 66 >40 mg/dL [facility] Comment:Desirable HDL: great er than 40 mg/dL Note: This HDL assay may give artificially low results in patients with liver disease. Blood 01/05/2024 8:22 AM EDT 01/05/2024 11:52 AM EDT Elizabeth Goncalves MD LAB BLOOD ORDERABLES Final Result [facility] [address] [place] [phone] * Hm Colonoscopy (12/10/2022) Historical Provider HEALTH MAINTENANCE Final Result * HEPATITIS C AB W/REFL TO HCV RNA, QN, PCR (10/23/2020 10:08 AM EDT) HEPATITIS C ANTIBODY NON-REACT [facility] NON-REACT [facility] INDEX 0.01 <1.00 [facility] Comment: ?? HCV antibody was non-reactive. There is no laboratory ?? evidence of HCV infection. ?? In most cases, no further action is required. However, if recent HCV exposure is suspected, a test for HCV RNA (test code 76666) is suggested. ?? For additional information please refer to http://education.[employer]faq/OEK46a7 (This link is being provided for informational/ educational purposes only.) ?? 10/23/2020 10:0 8 AM EDT us Elizabeth Goncalves MD HISTORICAL/NON ORDERA BLE LABS Final Result Performing Organization Address [facility] de Phone Number [facility] [address] * HIV 1/2 ANTIGEN/ANTIBODY,FOURTH GENERATION W/RFL (10/23/2020 10:08 AM EDT) HIV-1/2 ANTIGEN AND ANTIBODIES, 4TH GENERATION W/ REFLEX NON-REACT JOSE NON-REACT JOSE [facility] Comment: HIV-1 antigen and HIV-1/HIV-2 [...] ? For additional information please refer to http://[employer]faq/IRJ067 (This link is being provided for informational/ educational purposes only.) ? The performance of this assay has not been clinically validated in patients less than 2 years old. ?? 10/23/2020 10:0 8 AM EDT us Elizabeth Goncalves MD LAB BLOOD ORDERABLES Final Result Performing Organization Address [facility] de Phone Number [facility] [address] from Last 3 Months or Most Recently Relevant to Health Maintenance Insurance [facility] C3 Care Teams Filtration Plant Operator Relationship Specialty Start Date End Date Elizabeth Dunn MD [address] [place] [address] PCP - General Family Medicine 03/17/18 Thao Barnhart [employer]ling Ball Grader And MarkerJewelry Facer 02/07/23
--- OUTSIDE RECORDS SUMMARY | 2024-07-28 16:06 | XMS_ITS | Encounter Summary ---
Author Organization [employer] Address [address] [facility] 7t [place] [address] Care Team Providers Care Cardiovascular Surgical Tech Name Role Phone Elizabeth Dnun MD Primary Care Provide r Reason for Visit * Reason Onset Date Comments Med Refill 05/07/2024 Encounter Details Date Type Department Care Team ([facility] st Contact Info) Description 05/07/2024 Telephone [facility] [address] [place] [address] Elizabeth Dunn MD [address] [place] [address] Med Refill Social History Tobacco Use Types [...] Marinelli LPN - 05/07/2024 2:02 PM EST [employer] checked 05/07/24 patient should have 1 refill left. * Telephone Encounter - Carmella Jonas - 05/07/2024 1:54 PM EST TC from pt requesting medication refill. Medications needing refill : gabapentin (Neurontin) 600 MG tablet To be sent to: [facility]/pharmacy #[id number] documented in this encounter Plan of Treatment Upcoming Encounters Date Type Department Care Team (Late st Contact Info) Description 09/13/2024 2:30 PM EDT Office Visit [facility] [address] [place] [address] Elizabeth Dunn MD [address] [place] [address] documented as of this encounter Visit Diagnoses Not on filedocumented in this encounter Additional Health Concerns Assessment Noted Time PHQ-9 Depression Total Score: 0 08/20/19 24 2:32 PM EDT documented as of this encounter Care Teams Cardiovascular Surgical Tech Relationship Specialty Start Date End Date Elizabeth Dunn MD [address] [place] [id number] PCP - General Family Medicine 03/17/18 Thao Barnhart Hot Wire Glass Tube CutterNatural Science Manager 02/07/23 documented as of this encounter
--- OUTSIDE RECORDS SUMMARY | 2024-07-28 16:06 | XMS_ITS | Encounter Summary ---
Author Organization [facility] Address [address] [place] [address] 7t [place] [address] Care Team Providers Care Tube Buffer Name Role Phone Elizabeth Dunn MD Primary Care Provide r Encounter Details Date Type Department Care Team ([facility] Contact Info) Description 01/29/[address] [facility] [address] [place] [address] [phone] Provider, MD Hector Social History Tobacco Use [...] Department Care Team (Late Contact Info) Description 09/13/2024 2:30 PM EDT Office Visit [facility] [address] [place] [address] [phone] Elizabeth Dunn MD [address] [place] [address] [phone] documented as of this encounter Procedures Procedure Name Priority Date/Time Associated Diagnosis Comments HM COLONOSCOPY Routine 12/10/2022 documented in this encounter Results * Hm Colonoscopy (12/10/2022) us Historical Provider HEALTH MAINTENANCE Final Result documented in this encounter Visit Diagnoses Not on filedocumented in this encounter Additional Health Concerns Assessment Noted Time PHQ-9 Depression Total Score: 0 08/03/19 23 3:13 PM EDT documented as of this encounter Care Teams Tube Buffer Relationship Specialty Start Date End Date Elizabeth Dunn MD [address] [place] [address] PCP - General Family Medicine 03/17/18 Thao Barnhart Event Marketing ManagerTrash Truck Driver 02/07/23 documented as of this encounter
--- OUTSIDE RECORDS SUMMARY | 2024-07-28 16:06 | XMS_ITS | Encounter Summary ---
Author Organization [employer] Address [address] [facility] 7t [place] [address] Care Team Providers Care Order Processing Specialist Name Role Phone Elizabeth Dunn MD Primary Care Provide r Encounter Details Date Type Department Care Team ([facility] st Contact Info) Description 07/23/2024 Population Health Risk Score [facility] ([facility]) Department [address] [facility] [address] [place] [address] Provider, Population Health Generic Social History Tobacco Use Types Packs/Day Years [...] Description 09/13/2024 2:30 PM EDT Office Visit [facility] [address] [place] [address] Elizabeth Dunn MD [address] [place] [address] documented as of this encounter Visit Diagnoses Not on filedocumented in this encounter Additional Health Concerns Assessment Noted Time PHQ-9 Depression Total Score: 0 08/20/19 24 2:32 PM EDT documented as of this encounter Care Teams Order Processing Specialist Relationship Specialty Start Date End Date Elizabeth Dunn MD [address] [place], [place] [phone] PCP - General Family Medicine 03/17/18 Thao Barnhart ColoristLiquor Bridge Operator Helper 02/07/23 documented as of this encounter
--- OUTSIDE RECORDS SUMMARY | 2024-07-28 16:06 | XMS_ITS | Encounter Summary ---
Author Organization [employer] Address [address] [facility] 7t [place] [address] Care Team Providers Care Senior Administrative Support Name Role Phone Elizabeth Dunn MD Primary Care Provide r Reason for Visit * Reason Onset Date Comments Nurse Triage 11/26/2023 Encounter Details Date Type Department Care Team ([facility] st Contact Info) Description 11/26/2023 Telephone [facility] [address] [place] [address] Elizabeth Dunn MD [address] [place] [address] Nurse Triage Social History Tobacco Use Types [...] to PT. Per pt has not called outreach specialist to notify of increased pain with [...] Description 09/13/2024 2:30 PM EDT Office Visit [facility] [address] [place] [address] Elizabeth Dunn MD [address] [place], [place] [phone] documented as of this encounter Visit Diagnoses Not on filedocumented in this encounter Additional Health Concerns Assessment Noted Time PHQ-9 Depression Total Score: 0 08/20/19 24 2:32 PM EDT documented as of this encounter Care Teams Senior Administrative Support Relationship Specialty Start Date End Date Elizabeth Dunn MD [address] [place], [place] [phone] PCP - General Family Medicine 03/17/18 Thao Barnhart Technical AdjusterEmd Teacher 02/07/23 documented as of this encounter
--- OUTSIDE RECORDS SUMMARY | 2024-07-28 16:06 | XMS_ITS | Encounter Summary ---
Author Organization [employer] [facility] Address [address] [place] [address] 7t [place] [address] Care Team Providers Care Disk Sharpener Name Role Phone Elizabeth Dunn MD Primary Care Provide r Encounter Details Date Type Department Care Team (Late st Contact Info) Description 05/17/2022 Abstract [facility] MED[facility]INE [address] [place] [phone] Linda Romero, PharmD [address] [place] [phone] Social History Tobacco Use Types Packs/Day Years [...] Description 09/13/2024 2:30 PM EDT Office Visit [facility] [address] [place] [phone] Elizabeth Dunn MD [address] [place] [address] documented as of this encounter Visit Diagnoses Not on filedocumented in this encounter Care Teams Disk Sharpener Relationship Specialty Start Date End Date Elizabeth Dunn MD [address] [place] [phone] PCP - General Family Medicine 03/17/18 Thao Barnhart Administrative Assistant ReceptionistWelt Butter Hand 02/07/23 documented as of this encounter
== END 2024-07-28 13:40 | disposition home or self-care (01) ==
LOC: HO.NEURO 13:39
PROVIDERS: Visit Provider Nurse Practitioner Family
DX: M96.1 Postlaminectomy syndrome, not elsewhere classified (principal); M54.16 Radiculopathy, lumbar region; R20.0 Anesthesia of skin; R20.2 Paresthesia of skin; M79.672 Pain in left foot
CPT/HCPCS: 95885; 95886; 95909

== ENCOUNTER → 2024-07-28 13:44 | Outpatient (BNV) | payer MEDICAID, SELFPAY | PROVIDERS: Visit Provider Physical Medicine & Rehabilitation | DX: M54.16 Radiculopathy, lumbar region (principal); E13.40 Other specified diabetes mellitus with diabetic neuropathy, unspecified | CPT/HCPCS: 95885; 95886; 95909 ==

== ENCOUNTER 2024-08-12 13:30 | Outpatient (AMB) | payer MEDICAID, SELFPAY ==
[2024-08-12 13:48] VITALS: BP 142/84; PULSE 76; O2SAT 96; BMI 35.6
--- NOTE | 2024-08-12 13:48 | A.OFFVIS_ITS ---
Vital Signs 08/12/24 13:48 Height 5 ft 5 in Weight 214 lb BMI 35.6 BP 142/84 H Blood Pressure Location Lt brachial Position Sitting Pulse 76 Pulse Source Pulse Oximeter Pulse Oximetry (%) 96 Oxygen Delivery Method Room Air Intake Visit Reasons: Feet Pain/Numbness Sealing Machine Operator Required: Yes Sealing Machine Operator Language: [facility] Aide Services: Sealing Machine Operator Offered & Declined Sealing Machine Operator Name: Margaret Allergies morphine [MORPHINE] Allergy (Intermediate, Verified 08/12/24 13:52) PALPITATIONS, tachicardia quetiapine [Seroquel] Allergy (Intermediate, Verified 08/12/24 13:52) Aggitation orphenadrine [ORPHENADRINE] Adverse Reaction (Intermediate, Verified 08/12/24 13:52) RAPID HEART RATE HPI Comments Details: The patient is a 64-year-old female presenting for follow up for bilateral foot pain and discuss recent EMG results. Neurodiagnostic studies were consistent with peripheral neuropathy and left L5-S1 radiculopathy. She has had symptoms including numbness and tingling in both feet, worsening over the past years. Post L4-L5 fusion surgery and an epidural steroid injection last year, the patient reports significant improvement in back pain but persistent neuropathic pain in her feet. She also reports swelling in the ankles began with worsening of her neuropathic symptoms, approximately a year ago, but denies any swelling with increased gabapentin use. Medication adjustments were made by the PCP to maximize relief, though without full efficacy. The patient uses Vaseline for dry feet as she is diabetic and notes the peripheral symptoms are more pronounced at night. - Onset: Chronic foot pain, worsening over the past year - Quality: Burning pain, numbness, and tingling - Location: Both feet with left-sided predominance, radiating down from L5-S1 - Timing: Constant, worse at night - Exacerbating factors: Morning and nighttime walking, standing, sitting, sleeping - Relieving factors: Minimal relief with gabapentin 600 mg TID - Interference: Affects daily activities, burning pain in the feet particularly problematic - Affect: Constant burning pain affects the patient's mood, though no psychiatric symptoms directly attributed - Analgesia: Currently using gabapentin without satisfactory pain relief, last prescribed oxycodone for significant pain - Adverse Effects: Bilateral ankle swelling, denies swelling with gabapentin but will monitor closely - Activities of Daily Living: Affected, especially due to foot pain - Aberrant Drug Related Behaviors: No early refills or signs of misuse PRIOR: Patient presents today for follow-up to assess response to Caudal KEVIN with catheter on 04/23/[address] Valentine. Patient reports % pain relief since procedure lower back and partial lower extremity with improvement daily activities, mobility and sleep. She continues to report radicular symptoms in the left side extending from her left buttock into her collateral cuff significant foot pain with numbness and tingling and swelling in the ankle and pedal areas. Denies any recent trauma, injury or falls. EMR review noted ER visit on 05/13/24 for UTI, low back pain and headache however patient left without treatment. Pain in the left foot is rated 9/10 and back pain is 0/10. Denies any recent cough, cold, infection, fever, headache, bladder or bowel dysfunction, saddle anesthesia or other significant changes in medical history since last office visit. PRIOR: Patient presents today for follow-up for chronic low back pain. She was last seen in our office in 2022 and underwent L4-5 transkambin lumbar interbody fusion on 07/22/[address] Leon. Patient was seen by Neurosurgeon in September and was referred for physical therapy. Patient reports she had to stopped PT on 12/22/23 due to increased pain. She reports low back pain radiating to her left buttock and into left lower extremity. Patient reports left toes numbness since surgery with associated swelling. She has not followed up with Dr. Leon since September. Reports increased low back pain and left knee pain with walking, climbing stairs, bending or changing positions. She has been managing symptoms with Tylenol, lidocaine patches, methocarbamol and gabapentin with continued symptoms. Denies any fever or chills, weight loss, weakness, bladder or bowel dysfunction or saddle anesthesia. PRIOR 02/27/23: Patient presents today to assess response to Bilateral L5-S1 TFESI on 01/28/[address] Valentine. Patient reports 0% pain relief since injections without any improvement in her functioning, mobility or better sleep. She reports worsening low back pain with radiation to both of her legs (worse on the right) with weakness, numbness and tingling. Pain spreads across her lumbar and sacral regions. Bending, lifting and walking aggravates her pain. She continues to take gabapentin, lidocaine patches, Tylenol, and ice/heat therapy with minimal benefit. Resting and repositioning also temporarily alleviate her symptoms. Patient reports it has been painful to look after herself. Pain prevents her from doing lifting, vacuuming, standing to cook meals or wash dishes or other usual homeking chores. She is interested to proceed with Neurosurgical evaluation. We will update her lumbar spine MRIs. Patient is not interested to proceed with lumbar medial branch blocks at this time due to significant pain. Denies any fever, weight loss, abdominal or groin pain, bladder or bowel dysfunction or saddle anesthesia. Past Procedures: 01/28/23: Bilateral L5-S1 TFESI-0% pain relief PRIOR: Patient is a pleasant 62 years old female with prior history of fibromyalgia, lumbar degenerative disc disease, history of ACDF at C6-C7, chronic pain syndrome, osteoarthritis, depression, anxiety, migraine, presents today with widespread body pain, lower back, bilateral legs and hands pain. Her main concern is low back pain with radiation to both legs and feet posteriorly with numbness and tingling but no weakness. Denies any recent trauma, injury or falls. She has been followed by [facility] in the past for injections. Pain affects h er daily activities, functioning, mobility, sleep, mood and quality of life. Pain is worse in the morning with intensity rated at 8-10/10 and average pain in the past 2 weeks rated at 8/10. Her diabetes is well managed with most recent A1C 5.7. She lives alone. Denies any fever, weight loss, abdominal or groin pain, foot drop, bladder or bowel incontinence or saddle anesthesia. Location Lower back that radiates down bilateral legs Duration Chronic pain syndrome, multiple pain generators, many years Characteristics of symptom or complaint Aching, sharp, pressure, stabbing, nu mbness and tingling, shooting Aggravating or associated factors Prolonged walking, sitting, standing, bending, stairs, changing positions Relieving factors Oxycodone, activity modifications, goes to ER frequently for pain Treatment PT- made pain worse, shoulder cortisone injections [facility], [facility] Medical History Weakness Arthritis History of brain inflammation Protrusion of lumbar intervertebral disc Tinnitus Venous insufficiency Osteoarthritis Loss of hair History of headache Fibromyositis Fatigue Hyperlipidemia HTN (hypertension) Continuous opioid dependence Sinusitis Anemia Anxiety Diverticulosis Chronic idiopathic constipation Migraine Asthma Depression Diabetes 1.5, managed as type 2 Fibromyalgia Surgical History History of back surgery History of esophagogastroduodenoscopy (EGD) S/P panniculectomy Hx of hysterectomy Hx of oophorectomy Hx of bilateral breast reduction surgery H/O colonoscopy History of pubovaginal sling Gastric bypass status for obesity Family History Mother Colon cancer Social History Household Members: Spouse and Children Household Members Other:: lives alone Housing: House Are you a primary cattle care worker to a significant other at home: No Do you presently have visiting nurse or other home services: Yes (APPRENTICE EMBALMER) Alcohol intake: never Comment: IV infiltrated Patient Tobacco Use Status: Never used Tobacco Second Hand Smoke Exposure: No Advance Directives Date on File: 07/24/23 service: No Current occupational status: disabled Sexual orientation: Straight/Heterosexual Gender identity: Female Review of Systems Const Details: - Neurological: Reports numbness, tingling, and burning pain in feet - Musculoskeletal: Reports pain coming up her legs, worse on the left side - Psychiatric: Denies suicidal thoughts or hallucinations - General: Denies using alcohol or illicit drugs All systems reviewed & are unremarkable except as noted in HPI and below Physical Exam Vital Signs: Last Vital Signs Pulse 76 08/12/24 13:48 BP 142/84 H 08/12/24 13:48 Pulse Ox 96 08/12/24 13:48 Oxygen Delivery Method Room Air 08/12/24 13:48 BMI result Body Mass Index 35.6 General: Appears afebrile. Alert and oriented. Mood and affect appropriate. Follows and participates in conversation appropriately. Respiratory effort is unlabored. No cough. Able to transition from sit to stand unassisted. Mildly antalgic gait. Uses cane with ambulation. General: Yes no CVA tenderness Back/Spine/Pelvis Other: Lumbar flexion and extension reproduce mild pain. Well healed lumbar spine scars. Straight leg rise with dorsiflexion positive on the left. TTP over paraspinals from L4-S1. +1 patellar and diminished achilles reflexes bilaterally. +Mild TTP in projection of SIJ areas. +Tarun?s, Stinchfield tests positive on the left. Multiple tender points 16/16 upper and lower extremities. Back: no CVA tenderness Cervical Spine: cervical muscular tenderness, pain with cervical ROM, Cervical spine scars present and No Cervical spine tenderness Thoracic/Lumbar Spine: thoracic and lumbar spine normal to inspection, Thoracic/lumbar spine scar(s), Lasegue's sign positive on the left and diffuse, paraspinal muscle tenderness, thoraco-lumbar ROM limited, No thoracic spinal tenderness, lumbar spinal tenderness (L4-S1) and straight leg raise positive bilateral at 60 degrees Pelvis: buttock tenderness on the left Sacroiliac joints: bilaterally (left>right) tender to palpation Extrem Other: There is a decreased sensation over the soles of the feet and toes. Reports numbness, burning, hot, tingling in both feet, worse at night time. No breaks in the skin. No soft tissue swelling or warmth. +2 pedal pulses bilaterally. General: Yes capillary refill normal, Yes no calf tenderness, No clubbing and No cyanosis Results Reviewed Results Reviewed: MR LUMBAR SPINE WITHOUT AND WITH CONTRAST 02/28/24 CLINICAL INFORMATION: Arthrodesis status COMPARISON: MRI lumbar spine on 04/04/2023 TECHNIQUE: MRI of the lumbar spine was obtained using routine sequences with and without contrast. Intravenous contrast: Gadavist 10 mL FINDINGS: Mild retrolisthesis at L5-S1. Sequelae of posterior spinal fusion at L5/S1. Otherwise, no acute bone marrow abnormality or suspicious enhancement. The vertebral body heights are otherwise preserved. Multilevel disc desiccation without significant disc height loss. Multilevel endplate osteophytosis. The visualized spinal cord is normal in caliber. No abnormal cord signal or enhancement. The conus medullaris terminates at L1-2. T12-L1: Diffuse disc bulge and bilateral facet arthrosis. No significant spinal canal or neural foraminal narrowing. L1-2: Diffuse disc bulge and bilateral facet arthrosis. No significant spinal canal or neural foraminal narrowing. L2-3: Bilateral facet arthrosis. No significant spinal canal or neural foraminal narrowing. L3-4: Shallow disc bulge. No significant spinal canal or neural foraminal narrowing. L4-5: Diffuse disc bulge with superimposed central disc protrusion. Annular fissure, ligamentum flavum hypertrophy, and bilateral facet arthrosis. No significant spinal canal or neural foraminal narrowing however the disc abuts the exiting L4 nerve roots bilaterally, unchanged. L5-S1: Postsurgical changes. There is a residual central/left paracentral disc protrusion. No significant residual spinal canal stenosis. The left neural foramen is patent. Evaluation of the right neural foramen is significantly obscured by artifact however there is suggestion of persistent mild neural foraminal narrowing. The paravertebral soft tissues are unremarkable. IMPRESSION: -Postsurgical changes from posterior spinal fusion at L5-S1. There is a residual central/left paracentral disc protrusion at this level without significant residual spinal canal stenosis. Suggestion of persistent mild right neural foraminal narrowing that evaluation is limited by artifact. -At L4-L5, there is a disc bulge with superimposed central disc protrusion which abuts the exiting L4 nerve roots bilaterally, unchanged compared to MRI from 04/04/2023. EMG/Nerve conduction studies 07/28/24 FINDINGS: Left peroneal nerve showed absent response, when recording at EDB muscle. Small amplitudes seen when recording at TA muscle, but without conduction block across fibular neck. Bilateral tibial nerve showed absent distal response. Bilateral sural nerves showed absent response. Concentric needle EMG was performed in selected muscles of the bilateral lower extremities. Study revealed signs of electric abnormalities as shown in the table above. Left tibialis anterior and AH muscles showed increased insertional activity, P SWs and fibrillations. No denervation seen on right. IMPRESSION: 1. This is an abnormal study. 2. There is electrodiagnostic evidence for left L5-S1 radiculopathy, with underlying bilateral symmetric sensorimotor peripheral neuropathy. Assessment & Plan Assessment & Plan (1) Chronic painful diabetic neuropathy: Code(s): E11.40 - Type 2 diabetes mellitus with diabetic neuropathy, unspecified Category: Medical (2) Post laminectomy syndrome: Code(s): M96.1 - Postlaminectomy syndrome, not elsewhere classified Category: Medical (3) Low back pain with left-sided sciatica: Code(s): M54.42 - Lumbago with sciatica, left side Category: Medical (4) Lumbar degenerative disc disease: Code(s): M51.36 - Other intervertebral disc degeneration, lumbar region Category: Medical Plan EMG study results were discussed with patient today and are noted above. The patient will continue gabapentin at an increased frequency to optimize neuropathic pain control, while starting a Qutenza patch therapy for improved symptom management, once insurance approval is obtained. She should carefully monitor her ankle swelling, particularly after gabapentin doses, given the potential link between the medication and fluid retention. Oxycodone, short script, was prescribed for use only when experiencing severe pain, with Narcan provided as a safety measure and discussed with patient its use and administration. A discussion on future options like spinal cord stimulation was opened for revisiting as needed. Coordination with the primary care team for comprehensive diabetic and neuropathy care will remain vital. All questions and concerns have been answered and patient agreed with the treatment plan. Follow-up as needed. Patient was informed and verbally consented to the use of an ambient scribe for clinic note documentation during this visit. Medications: New naloxone 4 mg/actuation (Narcan) spray 1 dose into ONE nostril; alternate nostrils w each dose until help arrives 4 mg intranasal Q2M PRN 2 ea 0RF opioid overdose Changed From oxycodone Partial Fill upon patient request. 5 mg PO Q8H 3 days PRN 20 tabs 0RF pain G62.9 - Polyneuropathy, unspecified, M54.16 - Radiculopathy, lumbar region, M96.1 - Postlaminectomy syndrome, not elsewhere classified To oxycodone Partial Fill upon patient request. 5 mg PO Q8H 10 days PRN 30 tabs 0RF pain G62.9 - Polyneuropathy, unspecified, M54.16 - Radiculopathy, lumbar region, M96.1 - Postlaminectomy syndrome, not elsewhere classified Patient Instructions: I discussed the patient's chronic pain management strategy, highlighting the potential benefits and gradual improvement with Qutenza patches, contingent on insurance clearance. The risks of narcotic use were made clear, particularly the danger of respiratory depression, and I prescribed Narcan as a precautionary measure with detailed instructions for its use. We discussed the importance of monitoring ankle swelling as a potential gabapentin side effect. I informed the patient of the continuing options for surgical intervention or alternative treatments should her condition not improve satisfactorily. Coordination with her primary care team will ensure more comprehensive management of diabetes- related neuropathy. - Continue gabapentin 600mg three times daily as per PCP's instructions - Begin using Qutenza patch every 3 months once approved by insurance - Monitor for swelling in ankles, especially post gabapentin administration - Use prescribed oxycodone only during significant pain episodes - Keep Narcan available and follow instructions should it be necessary - Attend future consults for consideration of spinal cord stimulation if needed - Maintain diabetic foot care practices, follow up with Podiatry as scheduled Coding Level of Care Code Est Pt Level 4 (97365) Complex EM visit Add On G2211 Diagnoses Chronic painful diabetic neuropathy E11.40 Post laminectomy syndrome M96.1 Low back pain with left-sided sciatica M54.42 Lumbar degenerative disc disease M51.36
--- OUTSIDE RECORDS SUMMARY | 2024-08-12 14:48 | XMS_ITS | Encounter Summary ---
Author Organization [employer] Address [address] [facility] [address] [place] [address] Care Team Providers Care Pr Manager Name Role Phone Elizabeth Dunn MD Primary Care Provide r Encounter Details Date Type Department Care Team ([facility] st Contact Info) Description 08/29/[address] [facility] [address] [place] [address] Elizabeth Dunn MD [address] [place] [address] Social History Tobacco Use Types Packs/Day Years [...] to Deon requesting increase in AIR QUALITY ENGINEER hours due to change in condition. * Telephone Encounter - Iva Pisano RN - 08/29/2023 4:18 PM EDT Paperwork sent to Provider for signature to increase AIR QUALITY ENGINEER hours due to patient's condition change after Lumbar fusion procedure. Needs more assistance with ADL's. Once provider signs form I will fax to [facility]. documented in this encounter Plan of Treatment Upcoming Encounters Date Type Department Care Team (Late st Contact Info) Description 09/13/2024 2:30 PM EDT Office Visit [facility] [address] [place] [address] Elizabeth Dunn MD [address] [place] [address] documented as of this encounter Visit Diagnoses Not on filedocumented in this encounter Additional Health Concerns Assessment Noted Time PHQ-9 Depression Total Score: 0 08/20/19 24 2:32 PM EDT documented as of this encounter Care Teams Pr Manager Relationship Specialty Start Date End Date Elizabeth Dunn MD [address] [place] [address] PCP - General Family Medicine 03/17/18 Thao Barnhart Security Systems Sales RepresentativeSystem Technologist 02/07/23 documented as of this encounter
--- OUTSIDE RECORDS SUMMARY | 2024-08-12 14:48 | XMS_ITS | Clinical Summary ---
Author Organization [facility] Address [address] [place] [address] Phone Care Team Providers Care Inspection Engineer Name Role Phone Elizabeth Dunn MD Primary [...] - PCV) 04/14/2015 04/14/2014, 03/12/2000 RSV Immunization Adult Patients (1 - Risk 60-74 years 1-dose series) [...] to complete this topic Insurance MEDICAID - [place] Care Teams Inspection Engineer Relationship Specialty Start Date End Date Elizabeth Dunn MD [address] [phone] PCP - General Internal Medicine 02/12/24
--- OUTSIDE RECORDS SUMMARY | 2024-08-12 14:48 | XMS_ITS | Encounter Summary ---
Author Organization [employer] Address [address] [facility] [address] [place] [address] Care Team Providers Care River Tester Name Role Phone Elizabeth Dunn MD Primary Care Provide r Encounter Details Date Type Department Care Team (Late st Contact Info) Description 03/26/2024 Orders Only [facility] [address] [place] [address] Elizabeth Dunn MD [address] [place] [address] Social History Tobacco Use Types Packs/Day Years [...] Description 09/13/2024 2:30 PM EDT Office Visit [facility] [address] [place] [phone] Elizabeth Dunn MD [address] [place] [phone] documented as of this encounter Visit Diagnoses Not on filedocumented in this encounter Additional Health Concerns Assessment Noted Time PHQ-9 Depression Total Score: 0 08/20/19 24 2:32 PM EDT documented as of this encounter Care Teams River Tester Relationship Specialty Start Date End Date Elizabeth Dunn MD [address] [place] [phone] PCP - General Family Medicine 03/17/18 Thao Barnhart Car CarderManufacturing Plant Controller 02/07/23 documented as of this encounter
--- OUTSIDE RECORDS SUMMARY | 2024-08-12 14:48 | XMS_ITS | Encounter Summary ---
Author Organization [employer] Address [address] [place] [address] [address] [place] [address] Care Team Providers Care Sticker Machine Operator Name Role Phone Elizabeth Dunn MD Primary Care Provide r Reason for Visit * Reason Onset Date Comments Med Refill 12/04/2022 Encounter Details Date Type Department Care Team ([facility] st Contact Info) Description 12/04/2022 Telephone [facility] [address] [place] [address] Elizabeth Dunn MD [address] [place] [phone] Med Refill Social History Tobacco Use Types [...] Description 09/13/2024 2:30 PM EDT Office Visit [facility] [address] [place], [place] [phone] Elizabeth Dunn MD [address] [place], [place] [phone] documented as of this encounter Visit Diagnoses Not on filedocumented in this encounter Additional Health Concerns Assessment Noted Time PHQ-9 Depression Total Score: 0 08/03/19 3:13 PM EDT documented as of this encounter Care Teams Sticker Machine Operator Relationship Specialty Start Date End Date Elizabeth Dunn MD [address] [place], [place] [phone] PCP - General Family Medicine 03/17/18 Thao Barnhart Social Sciences ChairPhotographs Curator 02/07/23 documented as of this encounter
--- OUTSIDE RECORDS SUMMARY | 2024-08-12 14:48 | XMS_ITS | Encounter Summary ---
Author Organization [facility] Address [address] [place] [address] 7[address] [place] [address] Care Team Providers Care Sales Data Analyst Name Role Phone Elizabeth Dunn MD Primary Care Provide r Encounter Details Date Type Department Care Team ([facility] Contact Info) Description 01/29/2023 Orders Only [facility] [address] [place] [address] [phone] Provider, MD Hector Social History Tobacco Use [...] Description 09/13/2024 2:30 PM EDT Office Visit [facility] [address] [place] [address] [phone] Elizabeth Dunn MD [address] [place] [address] [phone] documented as of this encounter Procedures Procedure [...] documented as of this encounter Care Teams Sales Data Analyst Relationship Specialty Start Date End Date Elizabeth Dunn MD [address] [place] [address] PCP - General Family Medicine 03/17/18 Thao Barnhart Professor Of TheaterTrash Collector Truck Driver 02/07/23 documented as of this encounter
--- OUTSIDE RECORDS SUMMARY | 2024-08-12 14:48 | XMS_ITS | Encounter Summary ---
Author Organization [employer] Address [address] [facility] 7t [place] [address] Care Team Providers Care Field Coil Winder Name Role Phone Elizabeth Dunn MD Primary Care Provide r Reason for Visit * Reason Onset Date Comments Med Refill 06/21/2024 Encounter Details Date Type Department Care Team ([facility] st Contact Info) Description 06/21/2024 Telephone [facility] [address] [place] [address] Elizabeth Dunn MD [address] [place] [address] Med Refill Social History Tobacco Use Types [...] 500 MG tablet To be sent to: [facility]/pharmacy #[id number] [place] [address] documented in this encounter Plan of Treatment Upcoming Encounters Date Type Department Care Team (Late st Contact Info) Description 09/13/2024 2:30 PM EDT Office Visit [facility] [address] [place] [address] Elizabeth Dunn MD [address] [place] [address] documented as of this encounter Visit Diagnoses Not on filedocumented in this encounter Additional Health Concerns Assessment Noted Time PHQ-9 Depression Total Score: 0 08/20/19 24 2:32 PM EDT documented as of this encounter Care Teams Field Coil Winder Relationship Specialty Start Date End Date Elizabeth Dunn MD [address] [place] [address] PCP - General Family Medicine 03/17/18 Thao Barnhart Events AssistantCafeteria Aide 02/07/23 documented as of this encounter
--- OUTSIDE RECORDS SUMMARY | 2024-08-12 14:48 | XMS_ITS | Encounter Summary ---
Author Organization [employer] Address [address] [facility] 7t [place] [address] Care Team Providers Care Wood Science Professor Name Role Phone Elizabeth Dunn MD Primary Care Provide r Reason for Visit * Reason Onset Date Comments Nurse Triage 11/26/2023 Encounter Details Date Type Department Care Team ([facility] st Contact Info) Description 11/26/2023 Telephone [facility] [address] [place] [address] Elizabeth Dunn MD [address] [place] [address] Nurse Triage Social History Tobacco Use Types [...] to PT. Per pt has not called equipment validation specialist to notify of increased pain with [...] Description 09/13/2024 2:30 PM EDT Office Visit [facility] [address] [place] [address] Elizabeth Dunn MD [address] [place], [place] [phone] documented as of this encounter Visit Diagnoses Not on filedocumented in this encounter Additional Health Concerns Assessment Noted Time PHQ-9 Depression Total Score: 0 08/20/19 24 2:32 PM EDT documented as of this encounter Care Teams Wood Science Professor Relationship Specialty Start Date End Date Elizabeth Dunn MD [address] [place], [place] [phone] PCP - General Family Medicine 03/17/18 Thao Barnhart Application Development InternTrade Clerk 02/07/23 documented as of this encounter
--- OUTSIDE RECORDS SUMMARY | 2024-08-12 14:48 | XMS_ITS | Encounter Summary ---
Author Organization [employer] Address [address] [facility] 7t [place] [address] Care Team Providers Care Terminal Supervisor Name Role Phone Elizabeth Dunn MD Primary Care Provide r Reason for Visit * Reason Onset Date Comments Med Refill 05/07/2024 Encounter Details Date Type Department Care Team ([facility] st Contact Info) Description 05/07/2024 Telephone [facility] [address] [place] [address] Elizabeth Dunn MD [address] [place] [address] Med Refill Social History Tobacco Use Types [...] Marinelli LPN - 05/07/2024 2:02 PM EST STACKER checked 05/07/24 patient should have 1 refill left. * Telephone Encounter - Carmella Jonas - 05/07/2024 1:54 PM EST TC from pt requesting medication refill. Medications needing refill : gabapentin (Neurontin) 600 MG tablet To be sent to: [facility]/pharmacy #[id number] documented in this encounter Plan of Treatment Upcoming Encounters Date Type Department Care Team (Late st Contact Info) Description 09/13/2024 2:30 PM EDT Office Visit [facility] [address] [place] [address] Elizabeth Dunn MD [address] [place] [address] documented as of this encounter Visit Diagnoses Not on filedocumented in this encounter Additional Health Concerns Assessment Noted Time PHQ-9 Depression Total Score: 0 08/20/19 24 2:32 PM EDT documented as of this encounter Care Teams Terminal Supervisor Relationship Specialty Start Date End Date Elizabeth Dunn MD [address] [place] [phone] PCP - General Family Medicine 03/17/18 Thao Barnhart Field AdvisorDownstairs Maid 02/07/23 documented as of this encounter
--- OUTSIDE RECORDS SUMMARY | 2024-08-12 14:48 | XMS_ITS | Encounter Summary ---
Author Organization [employer] Address [address] [place] [address] 7 [place] [address] Care Team Providers Care Customer Support Advisor Name Role Phone Elizabeth Dunn MD Primary Care Provide r Reason for Visit * Reason Onset Date Comments Med Refill 12/17/2022 Encounter Details Date Type Department Care Team ([facility] st Contact Info) Description 12/17/2022 Telephone [facility] MED[facility]INE [address] [place] [address] Elizabeth Dunn MD [address] [place] [address] Med Refill Social History Tobacco Use Types [...] Description 09/13/2024 2:30 PM EDT Office Visit [facility] MED[facility]INE [address] [place], [place] [phone] Elizabeth Dunn MD [address] [place], [place] [phone] documented as of this encounter Visit Diagnoses Not on filedocumented in this encounter Additional Health Concerns Assessment Noted Time PHQ-9 Depression Total Score: 0 08/03/19 3:13 PM EDT documented as of this encounter Care Teams Customer Support Advisor Relationship Specialty Start Date End Date Elizabeth Dunn MD [address] [place], [place] [phone] PCP - General Family Medicine 03/17/18 Thao Barnhart Pier Master AssistantRack Pusher 02/07/23 documented as of this encounter
--- OUTSIDE RECORDS SUMMARY | 2024-08-12 14:48 | XMS_ITS | Clinical Summary ---
Author Organization [employer] Address [address] [facility] 7t [place] [address] Care Team Providers Care Speech Scientist Name Role Phone Elizabeth Dunn MD Primary [...] morning. 30 tablet 11 07/15/19 24 025 Discontinued ferrous sulfate 325 (65 Fe) MG EC tabletIndications :Microcytic anemia TAKE 1 TABLET BY MOUTH EVERY DAY. DO NOT CRUSH, CHEW OR SPLIT. 90 tablet 04/20/20 24 025 Discontinued methocarbamol (Robaxin) 500 MG tabletIndications :Chronic midline low back pain with left-sided sciatica TAKE 2 TABLETS (1,000 MG) BY MOUTH EVERY 8 (EIGHT) HOURS IF NEEDED FOR MUSCLE SPASMS 168 tablet 06/21/19 25 025 Discontinued Tirzepatide-Weigh t Management (Zepbound) 5 MG/0.5ML solution auto-injectorIndi cations:Class 2 severe obesity with serious comorbidity and body mass index (BMI) of 35.0 to 35.9 in adult, unspecified obesity type (CMS/HCC) Inject 0.5 mL (5 mg) under the skin 1 (one) time per week. 2 mL 07/16/19 25 025 Discontinued Active Problems Problem Noted Date Diagnosed [...] left foot, she is being manage by pain/computer systems support specialist (medications prescribed by specialist only) Chronic bilateral low back pain with left-sided sciatica 08/20/2023 Assessment & Plan (01/07/2024 2:12 PM EDT): I will increase gabapentin to 600mg TID and refer her back to pain management Pelvic pain 08/20/2023 Assessment & Plan (08/21/2023 12:20 PM EDT): NURSE GENERAL DUTY referral as per patient's request Preop examination [...] 04/21/2023 Symptom of leg swelling 04/21/2023 04/21/20 Varicose veins of right lower extremity with [...] I will prescribed for patient for patient wegovy, it would help also to achieve A1c [...] Type Department Care Team Description 07/26/2024 Telephone [facility] [address] [place], [place] [phone] Elizabeth Dunn MD Medication Question 07/23/2024 [facility] [place] [facility] () Department [address] [place] [phone] Provider, Population Health Generic 07/23/2024 Refill [facility] [address] [place] [address] Elizabeth Dunn MD Class 2 severe obesity with serious comorbidity and body mass index (BMI) of 35.0 to 35.9 in adult, unspecified obesity type (CMS/HCC) 07/21/2024 Telephone [facility] [address] [place] [address] Elizabeth Dunn MD Prior Authorization ( [place] Request: Zepbound 5MG) 07/19/2024 Refill [facility] [address] [place], [place] [phone] Elizabeth Dunn MD Microcytic anemia 07/16/2024 Refill [facility] [address] [place] [phone] Elizabeth Dunn MD Chronic midline low back pain with left-sided sciatica 07/15/2024 2:30 PM EST Office Visit [facility] [address] [place] [address] Elizabeth Dunn MD Class 2 severe obesity with serious comorbidity and body mass index (BMI) of 35.0 to 35.9 in adult, unspecified obesity type (CMS/HCC) (Primary Dx); Type 2 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 ([facility]) 07/15/2024 Travel 07/14/2024 Telephone [facility] [address] [place] [address] Elizabeth Dunn MD Chart Prep 07/14/2024 Refill [facility] [address] [place] [address] Elizabeth Dunn MD Primary hypertension 07/05/2024 Refill [facility] [address] [place] [address] Elizabeth Dunn MD Class 2 severe obesity with serious comorbidity and body mass index (BMI) of 35.0 to 35.9 in adult, unspecified obesity type ([facility]) 06/21/2024 Telephone [facility] [address] [place] [address] Elizabeth Dunn MD Med Refill 06/21/2024 Refill [facility] [address] [place] [address] Elizabeth Dunn MD S/P lumbar fusion; Chronic bilateral low back pain with left-sided sciatica; Chronic midline low back pain with left-sided sciatica 05/27/2024 2:30 PM EST Telemedicine [facility] [address] [place] [address] Elizabeth Dunn MD Class 2 severe obesity with serious comorbidity and body mass index (BMI) of 35.0 to 35.9 in adult, unspecified obesity type ([facility]/HCC) (Primary Dx); Status post lumbar spinal fusion 05/27/2024 Travel from Last 3 Months Immunizations Name [...] Description 09/13/2024 2:30 PM EDT Office Visit [facility] [address] [place] [address] Elizabeth Dunn MD [address] [place] [address] Health Maintenance Due Date Last Done Comments [...] VIEWS LEFT Routine 05/28/2024 11:00 AM EST BI MAMMOGRAM DIAGNOSTIC TOMOSYNTHESIS BILATERAL Routine [...] Media Lot # [id number] Lot# Expiration Date [id number] Blood Capillary blood specimen / Unknown 07/15/2024 1:56 PM EST us Elizabeth Goncalves MD POINT OF CARE TEST EN TER/EDIT ORDERABLES Final Result * XR Foot 3+ Views Left (05/28/2024 11:00 AM EST) Anatomical Region Laterality Modality Lower Extremities, Foot Left Radiogra phic Imaging 05/28/2024 11:0 0 AM EST Narrative 05/31/2024 3:35 PM EST ? [facility] ?[address] ?[place] [address] ?XRay Report ? Signed ? Patient: Lelo Plata ?MR# ?? : [id number] ? : 1960 ?Acct:[id number] ? Age/Sex: 64 / F ?ADM Date: 05/28/24 ? Loc: HO.XRAY ? Attending Dr: Kimberly DELCID ? Ordering Physician: Kimberly Castrejon ?? Date of Service: 05/28/24 ?? Procedure(s): XR foot LT min 3V ?? Accession Number(s): [id number] ? cc: Elizabeth Dunn MD; Kimberly Castrejon [...] plantar calcaneal spur. ? Electronically signed by: ??Fracisoc Dockery MD ??05/31/2024 03:32 PM EST ?? RP ? Dictated By: ?Fracisco Dockery MD ? Signed By: ?<Electronically signed by Fracisco Dockery MD in OV> ?05/31/24 1532 ? DD/ 1100 ? TD/TT: 05/28/24 1112 ? Teacher Vocational Training: ? Procedure Note Doncaliter, Image - 05/31/[address] [address] XRay Report Signed Patient: Lelo Plata RMR# : [id number] : 1960cct:[id number] Age/Sex: 64 / FADM Date: 05/28/24 Loc: [facility] Attending Dr: Kimberly DELCID Ordering Physician: Kimberly Castrejon Date of Service: 05/28/24 Procedure(s): XR foot LT min 3V Accession Number(s): [id number] cc: Elizabeth Dunn MD; Kimberly Castrejon EXAMINATION: [...] 05/31/24 1532 DD/ 1100 TD/TT: 05/28/24 1112 Teacher Vocational Training: us [facility] External Provider IMG XR PROCEDURES Final Result * BI Mammogram Diagnostic Tomosynthesis Bilateral (02/10/2024 2:00 PM EDT) Anatomical Region Laterality Modality Breast Bilateral Mammography 02/10/2024 2:00 PM EDT Narrative 02/10/2024 5:26 PM EDT ? [facility] ? [address] ?[place], [place] [address] ? Mammography Report ? Signed ? Patient: Lelo Watters R ?MR#: ?? [id number] ? : 1960 ?Acct:[id number] ? Age/Sex: 63 / F ?ADM Date: 02/10/24 ? Loc: HO.MAMMO ? Attending Dr: Elizabeth Goncalves MD ? Ordering Physician: Elizabeth Dunn MD ?Results: ?? 1Negative ? Date of Service: 02/10/24 ?Follow Up: 1 Year From Orig ?? inal Mammogram ? Procedure(s): MM tomosynthesis diagnostic BI ?? Accession Number(s): [id number] ? cc: Elizabeth Dunn MD ? EXAMINATION: [...] DD/ 1400 ? TD/TT: 02/10/24 1410 ? Teacher Vocational Training: ? Procedure Note Donotuseinterpreter, Image - 02/10/2024 [facility] [address] [place] [address] Mammography Report Signed Patient: Lelo Watters RMR#: [id number] : 2Acct:[id number] Age/Sex: 63 / FADM Date: 02/10/24 Loc: HO.MAMMO Attending Dr: Elizabeth Goncalves MD Ordering Physician: Elizabeth Dunnesults: 1Negative Date of Service: 02/10/24Follow Up: 1 Year From Orig inal Mammogram Procedure(s): MM tomosynthesis diagnostic BI Accession Number(s): [id number] cc: Elizabeth Dunn MD EXAMINATION: MM DIAGNOSTIC [...] Johnson MD 02/10/2024 05:24 PM EDT RP Workstation: [employer] Dictated By: Kory Johnson MD Signed By: <Electronically signed by Kory Johnson MD in OV> 02/10/24 1724 DD/ 1400 TD/TT: 02/10/24 1410 Teacher Vocational Training: us Elizabeth Goncalves MD IMG BI PROCEDURES Patrick wendie Result - Final * Albumin, Random Urine W/Creatinine (01/05/2024 8:25 AM EDT) Creatinine, Urine 223.33 mg/dL [facility] Microalbumin Urine 9.0 mg/L [facility] Microalbum Creatinine Ratio Ur 4.0 <30 ug/mg cr [facility] Comment:Albumin/Creatinine R atio Reference Ranges: Normal: < 30 ug/mg creatinine Microalbuminuria: 30 - 300 ug/mg creatinineClinical Albuminuria: > 300 ug/mg creatinine Urine (Urine, Random) 01/05/2024 8:25 AM EDT 01/05/2024 11:48 AM EDT us Elizabeth Goncalves MD LAB URINE ORDERABLES Final Result [facility] [address] [place] [address] [phone] * (ABNORMAL) Lipid Panel with Reflex to Direct LDL (01/05/2024 8:22 AM EDT) Triglycerides 180(H) <150 mg/dL [facility] Comment:Desirable Triglyceri de: less than 150 mg/dLBorderline High Triglyceride 150-199 mg/dLHigh Triglyceride: 200-499 mg/dLVery High Triglyceride: greater than or equal to 5OO mg/dL Cholesterol 240(H) <200 mg/dL [facility] Comment:Desirable Cholestero l: less than 200 mg/dLBorderline High Cholesterol: 200-239 mg/dLHigh Cholesterol: greater than 239 mg/dL LDL Cholesterol Calculated 138(H) <100 mg/dL [facility] Comment:Desirable LDL: less than 100 mg/dLNear Optimal/Above Optimal LDL: 110- 129 mg/dLBorderline High LDL: 130-159 mg/dLHigh LDL: 160-189 mg/dLVery High LDL: greater than or equal to 190 mg/dL HDL Cholesterol 66 >40 mg/dL [facility] Comment:Desirable HDL: grea ter than 40 mg/dL Note: This HDL assay may give artificially low results in patients with liver disease. Blood 01/05/2024 8:22 AM EDT 01/05/2024 11:52 AM EDT us Elizabeth Goncalves MD LAB BLOOD ORDERABLES Final Result [facility] [address] [place] [address] [phone] * Hm Colonoscopy (12/10/2022) us Historical Provider HEALTH MAINTENANCE Final Result * HEPATITIS C AB W/REFL TO HCV RNA, QN, PCR (10/23/2020 10:08 AM EDT) HEPATITIS C ANTIBODY NON-REACT JOSE NON-REACT JOSE [facility] INDEX 0.01 <1.00 [facility] Comment: ?? HCV antibody was non-reactive. There is no laboratory ?? evidence of HCV infection. ?? In most cases, no further action is required. However, if recent HCV exposure is suspected, a test for HCV RNA (test code 14756) is suggested. ?? For additional information please refer to http://[employer] [place].[employer]/faq/WKX39w5 (This link is being provided for informational/ educational purposes only.) ?? 10/23/2020 10:0 8 AM EDT Elizabeth Goncalves MD HISTORICAL/NON ORDERA BLE LABS Final Result Performing Organization Address [facility] de Phone Number [facility] [address] * HIV 1/2 ANTIGEN/ANTIBODY,FOURTH GENERATION W/RFL (10/23/2020 10:08 AM EDT) HIV-1/2 ANTIGEN AND ANTIBODIES, 4TH GENERATION W/ REFLEX NON-REACT JOSE NON-REACT JOSE [facility] Comment: HIV-1 antigen and HIV-1/HIV-2 [...] ? For additional information please refer to http://education.[employer]/faq/WQP848 (This link is being provided for informational/ educational purposes only.) ? The performance of this assay has not been clinically validated in patients less than 2 years old. ?? 10/23/2020 10:0 8 AM EDT us Elizabeth Goncalves MD LAB BLOOD ORDERABLES Final Result Performing Organization Address [facility]/State/ZIP Co de Phone Number [facility] [address] from Last 3 Months or Most Recently Relevant to Health Maintenance Insurance [facility] C3 Care Teams Speech Scientist Relationship Specialty Start Date End Date Elizabeth Dunn MD [address] [place] [phone] PCP - General Family Medicine 03/17/18 Thao Barnhart Plater ApprenticePot Lining Supervisor 02/07/23
--- OUTSIDE RECORDS SUMMARY | 2024-08-12 14:48 | XMS_ITS | Clinical Summary ---
Author Organization [facility], Address [address] [place] [address] Phone Care Team Providers Care Military Technology Manager Name Role Phone Elizabeth Dunn MD [...] ID:Not on file Type:Not on file Address: [place] [phone] MEDICAID [place] Care Teams Military Technology Manager Relationship Specialty Start Date End Date Elizabeth Dunn MD [address] [place] [phone] PCP - General Internal Medicine 11/17/20
--- OUTSIDE RECORDS SUMMARY | 2024-08-12 14:48 | XMS_ITS | Encounter Summary ---
Author Organization [employer] [facility] Address [address] [place] [address] 7t [place] [address] Care Team Providers Care Partition Assembly Machine Operator Name Role Phone Elizabeth Dunn MD Primary Care Provide r Encounter Details Date Type Department Care Team (Late st Contact Info) Description 05/17/[address] [facility] MED[facility]INE [address] [place] [phone] Linda Romero, PharmD [address] [place] [phone] Social History Tobacco Use Types Packs/Day Years [...] 09/13/2024 2:30 PM EDT Office Visit [facility] [address] [place] [address] Elizabeth Dunn MD [address] [place] [address] documented as of this encounter Visit Diagnoses Not on filedocumented in this encounter Care Teams Partition Assembly Machine Operator Relationship Specialty Start Date End Date Elizabeth Dunn MD [address] [place] [phone] PCP - General Family Medicine 03/17/18 Thao Barnhart Compliance Representative DealerFabrication Machine Operator 02/07/23 documented as of this encounter
== END 2024-08-12 14:10 | disposition home or self-care (01) ==
PROVIDERS: PCP Internal Medicine; Visit Provider Nurse Practitioner Family
DX: E11.40 Type 2 diabetes mellitus with diabetic neuropathy, unspecified (principal); M96.1 Postlaminectomy syndrome, not elsewhere classified; M54.42 Lumbago with sciatica, left side; M51.369 Other intervertebral disc degeneration, lumbar region without mention of lumbar back pain or lower extremity pain
CPT/HCPCS: 99214

== ENCOUNTER → 2024-08-12 13:30 | Outpatient (BNVA) | payer MEDICAID, SELFPAY | PROVIDERS: PCP Internal Medicine; Visit Provider Nurse Practitioner Family | DX: M96.1 Postlaminectomy syndrome, not elsewhere classified (principal); M54.42 Lumbago with sciatica, left side; M51.369 Other intervertebral disc degeneration, lumbar region without mention of lumbar back pain or lower extremity pain; M54.16 Radiculopathy, lumbar region; E11.42 Type 2 diabetes mellitus with diabetic polyneuropathy | CPT/HCPCS: 99212 ==

== ENCOUNTER 2024-10-14 12:56 | Outpatient (AMB) | payer MEDICAID, SELFPAY ==
--- NOTE | 2024-10-14 13:03 | A.OFFVIS_ITS ---
Vital Signs 10/14/24 13:07 Height 5 ft 5 in Weight 214 lb BMI 35.6 Intake Visit Reasons: MRI follow up Multifocal Button Grinder Required: Yes Multifocal Button Grinder Language: Editor School Photograph Services: Multifocal Button Grinder Present (in person) Multifocal Button Grinder Name: Graciela LINARES Information Interpreted: non-clinical & clinical Account Receivable Clerk: Account Receivable Clerk Present (Graciela MILAGROS Devine) Accompanied by: Self / Same As Patient Allergies morphine [MORPHINE] Allergy (Intermediate, Verified 10/14/24 13:07) PALPITATIONS, tachicardia quetiapine [Seroquel] Allergy (Intermediate, Verified 10/14/24 13:07) Aggitation orphenadrine [ORPHENADRINE] Adverse Reaction (Intermediate, Verified 10/14/24 13:07) RAPID HEART RATE Post menopausal: Yes HPI Comments Details: Presenting for pelvic MRI follow-up which showed the following: IMPRESSION: 1. Post hysterectomy. Ovaries are not visualized. No specific etiology by MRI to explain patient's pelvic and perianal pain. Specifically, the echogenic shadowing focus in the vaginal cuff as seen on the prior ultrasounds likely reflects benign coarse calcifications at the lateral aspects of the vaginal cuff as seen on previous CTs, stable dating back to 2021. On the previous ultrasound, this is reported stable dating back to 2014. It is likely of no clinical consequence. 2. Large stool burden. [facility] Medical History Weakness Arthritis History of brain inflammation Protrusion of lumbar intervertebral disc Tinnitus Venous insufficiency Osteoarthritis Loss of hair History of headache Fibromyositis Fatigue Hyperlipidemia HTN (hypertension) Continuous opioid dependence Sinusitis Anemia Anxiety Diverticulosis Chronic idiopathic constipation Migraine Asthma Depression Diabetes 1.5, managed as type 2 Fibromyalgia Surgical History History of back surgery History of esophagogastroduodenoscopy (EGD) S/P panniculectomy Hx of hysterectomy Hx of oophorectomy Hx of bilateral breast reduction surgery H/O colonoscopy History of pubovaginal sling Gastric bypass status for obesity Family History Mother Colon cancer Social History Household Members: Spouse and Children Household Members Other:: lives alone Housing: House Are you a primary career services coordinator to a significant other at home: No Do you presently have visiting nurse or other home services: Yes (MACHINE ASSEMBLER FOR PULLER OVER) Alcohol intake: never Comment: IV infiltrated Patient Tobacco Use Status: Never used Tobacco Second Hand Smoke Exposure: No Advance Directives Date on File: 07/24/23 service: No Current occupational status: disabled Sexual orientation: Straight/Heterosexual Gender identity: Female Review of Systems Const All systems reviewed & are unremarkable except as noted in HPI and below Reports as per HPI and Reports no additional complaints GI Reports no additional complaints Reports no additional complaints Physical Exam Vital Signs: BMI result Body Mass Index 35.6 Assessment & Plan Assessment & Plan (1) Abnormal ultrasound: Comment: vaginal cuff Code(s): R93.89 - Abnormal findings on diagnostic imaging of other specified body structures Category: Medical Plan: Discussed with the patient the finding on a pelvic MRI, the patient was reassured. Instructions given the patient to call in case of persistence or recurrence of her pelvic pain. All questions answered, the patient verbalized understanding Coding Level of Care Code Est Pt Level 3 (37597) Diagnoses Abnormal ultrasound R93.89
[2024-10-14 13:07] VITALS: BMI 35.6
--- OUTSIDE RECORDS SUMMARY | 2024-10-14 15:01 | XMS_ITS | Clinical Summary ---
Author Organization [facility], Address [address] [place] [address] Phone Care Team Providers Care Private Equity Associate Name Role Phone Elizabeth Dunn MD Primary [...] 01/17/2021 Posttraumatic stress disorder 01/17/2021 01/17/2021 Immunizations Immunization Administration Dates Next Due DT 07/20/2008 Family [...] Colorectal Cancer Screening: Sigmoidoscopy 2011 Pneumococcal Vaccine: 50+ Years (3 of 3 - PCV) 04/14/2015 04/14/2014, 03/12/2000 Diabetes: Ophthalmology Exam 07/15/2023 Diabetes: Pedal Pulse Checked 07/15/2023 Diabetes: Sensory Foot Exam 07/15/2023 Diabetes: Visual Foot Exam 07/15/2023 Diabetes: Hemoglobin A1C 07/21/2023 04/21/2023, 05/13 Influenza Vaccine (Season Ended) 2025 04/21/2023, 03/14/2021, 03/02/2020, Additional history exists Pneumococcal Vaccine: Peds (0 to 5 Years) and At-Risk Patients (6 to 49 Years) Discontinued 04/14/2014, 03/12/2000 Hepatitis B Vaccine Aged Out No longe [...] Calculated 126 0 - 160 mg/dL 05/31/2020 [facility] Provider LAB BLOOD ORDERABLES Sandy l Result from Last 3 Months or Most Recently Relevant to Health Maintenance Insurance Medicaid [place] Care Teams Private Equity Associate Relationship Specialty Start Date End Date Elizabeth Dunn MD [address] [place] [phone] PCP - General Internal Medicine 11/17/20
== END 2024-10-14 13:47 | disposition home or self-care (01) ==
LOC: HO.HWS 12:57
PROVIDERS: Visit Provider Obstetrics & Gynecology
DX: R93.89 Abnormal findings on diagnostic imaging of other specified body structures (principal)
CPT/HCPCS: 99213

== ENCOUNTER → 2024-10-14 12:56 | Outpatient (BNVA) | payer MEDICAID, SELFPAY | PROVIDERS: Visit Provider Obstetrics & Gynecology | DX: R93.89 Abnormal findings on diagnostic imaging of other specified body structures (principal) | CPT/HCPCS: 99212 ==

== ENCOUNTER 2025-02-07 19:16 | Emergency (ER) | payer MEDICAID, SELFPAY ==
--- OUTSIDE RECORDS SUMMARY | 2025-02-02 15:00 | XMS_ITS | Encounter Summary ---
Author Organization [employer] Address [address] [facility] 7t [place] [address] Care Team Providers Care Retail Equipment Associate Name Role Phone Elizabeth Dunn MD Primary Care Provide r Encounter Details Date Type Department Care Team (Latest Contact Info) Description 02/02/2025 3:00 PM EDT Telemedicine [facility] [address] [place] [address] Elizabeth Dunn MD [address] [place] [address] Diabetic mononeuropathy simplex (CMS/HCC) (Primary Dx); 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order, without psychotic features (CMS/HCC); Mild intermittent asthma, unspecified whether complicated; Continuous opioid dependence (CMS/HCC); Fibromyalgia; Dietary counseling; Exercise counseling; Type 2 diabetes mellitus without complication, without long-term current use of insulin (CMS/HCC) Social History Tobacco Use Types Packs/Day Years Used Date Smoking Tobacco: Never Passive Smoke Exposure: Never Smokeless Tobacco: Never Alcohol Use Standard Drinks/Week Comments Never 0 (1 standard drink = 0.6 oz pur e alcohol) Depression Answer Date Recorded Patient Health Questionnaire-9 Score 0 02/02/2025 Patient Health Questionnaire-9 Score 0 02/02/2025 Last PHQ-9: Questionnaire Data Not on file 0 02/02/2025 Housing Stability Answer Date Recorded What is your housing situation today? I have katia manriquez 02/02/[address] you li ve. Do you have problems with any of the following? None of the above 02/02/2025 Food Insecurity Answer Date Recorded Within the past 12 months, y ou worried that your food would run out before you got money to buy more: Sometimes True 2024 Within the past 12 months,th e food you bought just didn't last and you didn't have enough money to get more: Sometimes True 02/02/2025 Transportation Answer Date Recorded In the past 12 months, has l ack of transportation kept you from medical appts, meetings, work or from getting things needed for daily living? Yes, it has kept me from medical appointments or getting medications.;No 02/02/2025 Utilities Answer Date Recorded In the past 12 months, has t he [employer], gas, oil or water [employer] threatened to shut off services in your home? No 02/02/2025 Depression Answer Date Recorded Patient Health Questionnaire-2 Score 0 02/02/2025 Internet Access Answer Date Recorded Internet Access Q1 No 02/02/2025 Internet Access Q2 I cannot afford it 02/02/2025 Comments Unknown Sex and Gender Information Value Date Recorded Sex Assigned at Female 03/11/2022 10:14 AM EDT Legal Sex Female 10:14 AM EDT Gender Identity Female 03/11/2022 10:14 AM EDT Sexual Orientation Straight 03/11/2022 10 :14 AM EDT documented as of this encounter Functional Status * Over the past 2 weeks, how often have you been bothered by any of the following problems? Question Answer Date of Assessment Author Patient Health Questionnaire-2 Score 0 01/11 2:44 PM EDT Jodi Nix [place] * Little interest or pleasure in doing things Answer Date of Assessment Author Not at all 02/02/2025 2:44 PM EDT Alexandru Nix ra, [place] * Feeling down, depressed, or hopeless Answer Date of Assessment Author Not at all 02/02/2025 2:44 PM EDT Alexandru Nix ra, [place] * Trouble falling or staying asleep, or sleeping too much Answer Date of Assessment Author Not at all 02/02/2025 2:44 PM EDT Alexandru Nix ra, [place] * Feeling tired or having little energy Answer Date of Assessment Author Not at all 02/02/2025 2:44 PM EDT Alexandru Nix ra, [place] * Poor appetite or overeating Answer Date of Assessment Author Not at all 02/02/2025 2:44 PM EDT Alexandru Nix ra, [place] * Feeling bad about yourself - or that you are a failure or have let yourself or your family down Answer Date of Assessment Author Not at all 02/02/2025 2:44 PM EDT Alexandru Nix ra, [place] * Trouble concentrating on things, such as reading the newspaper or watching television Answer Date of Assessment Author Not at all 02/02/2025 2:44 PM EDT Alexandru Nix ra, [place] * Moving or speaking so slowly that other people could have noticed? Or the opposite - being so fidgety or restless that you have been moving around a lot more than usual. Answer Date of Assessment Author Not at all 02/02/2025 2:44 PM EDT Alexandru Nix ra, [place] * Thoughts that you would be better off or hurting yourself in some way Answer Date of Assessment Author Not at all 02/02/2025 2:44 PM EDT Alexandru Nix ra, [place] * Patient Health Questionnaire-9 Score Answer Date of Assessment Author 0 02/02/2025 2:44 PM EDT Alexandru Nix ra, [place] * Over the last 2 weeks, how often have you been bothered by any of the following problems? Question Answer Date of Assessment Author Feeling nervous, anxious, or on edge 0 01/11 2:44 PM EDT Jodi Nix MA Not being able to stop or co ntrol worrying 0 02/02/2025 2:44 PM EDT Jodi Nix MA Worrying too much about diff erent things 0 02/02/2025 2:44 PM EDT Jodi Nix [place] Trouble relaxing 0 02/02/2025 2:44 PM EDT Jodi Ewing MA Being so restless that it is hard to sit still 0 02/02/2025 2:44 PM EDT Jodi Nix MA Becoming easily annoyed or irritable 0 01/11 2:44 PM EDT Jodi Nix MA Feeling afraid as if somethi ng awful might happen 0 02/02/2025 2:44 PM EDT Jodi Nix MA RICARDO-7 Total Score 0 02/02/2025 2:44 PM EDT Jodi Nix MA documented as of this encounter Progress Notes * Elizabeth Goncalves MD - 02/02/2025 3:00 PM EDT SUBJECTIVE: Lelo Rivas is a 64 y.o. year old female who presents for Follow up . Acute Concerns: Patient continues to complain of having disseminated body pain reports none of the medications helpher when I ask about worse type pain specifically she cannot point out where she states it is all over her body Patient is using her Mounjaro 10 mg weekly denies any side effects reports she is doing well with it Social History Social History Narrative Not on file Problem List[1] Family History[2] Review of Systems Constitutional: Negative. HENT: Negative. Respiratory: Negative. Cardiovascular: Negative. Musculoskeletal: Positive for arthralgias and myalgias. Follow Up: No follow-ups on file. Medications Ordered Prior to Encounter[3] Problem List Items Addressed This Visit Diabetic mononeuropathy simplex (CMS/HCC) - Primary Depression Continue to follow-up with psychiatrist and therapist Asthma well-controlled continue with same interventions RESOLVED: Continuous opioid dependence (CMS/HCC) Fibromyalgia Patient was educated about multidisciplinary approach for her condition, it was advise cardiovascular exercise, maintain hydration, treat anxiety/depression and take medications as directed I prescribed today Flexeril 10 mg every 8 hours she is aware of side effects somnolence T2DM (type 2 diabetes mellitus) (CMS/HCC) Continue with metformin 500 mg daily and Mounjaro 10 mg weekly Counseling about diabetic diet done today Other Visit Diagnoses Dietary counseling Exercise counseling [1] Patient Active Problem List Diagnosis Acute maxillary sinusitis Microcytic anemia Benzodiazepine dependence (CMS/HCC) Blurring of visual image Chronic idiopathic constipation Chronic left-sided low back pain with left-sided sciatica Disorder of joint of spine Dizziness Fatigue [...] (BMI) of 35.0 to 35.9 in adult ([facility]) Family history of colon cancer History of adenomatous polyp of colon Long-term use of high-risk medication T2DM (type 2 diabetes mellitus) ([facility]) Encounter for screening for malignant neoplasm of colon Encounter for screening for malignant neoplasm of rectum Acute nontraumatic kidney injury ([facility]) Acute pain of right shoulder Class 1 obesity due to excess calories with serious comorbidity and body mass index (BMI) of 34.0 to 34.9 in adult Diabetic mononeuropathy simplex ([facility]) [2] No family history on file. [3] Current Outpatient Medications on File Prior to Visit Medication Sig Dispense Refill Alcohol Swabs 70 % pads Use to test blood sugar 1 times daily 100 each 1 ARIPiprazole (Abilify) 2 MG tablet Take 1 tablet by mouth Once per day. Blood Glucose Monitoring Suppl (FreeStyle Lite) w/Device kit USE TO TEST BLOOD SUGAR 1 TIMES DAILY 1 kit 0 clonazePAM (KlonoPIN) 1 MG tablet Take 1 tablet by mouth twice daily & take 1/2 tablet by mouthdaily as needed Diclofenac Sodium 1 % gel Apply on affected area twice a day 350 g 3 ferrous sulfate 325 (65 Fe) MG EC tablet TAKE 1 TABLET BY MOUTH EVERY DAY. DO NOT CRUSH, CHEW OR SPLIT. 90 tablet 0 FREESTYLE LITE test strip Use to test blood sugar 1 times daily 100 each 12 hydroCHLOROthiazide (HYDRODiuril) 50 MG tablet TAKE 1 TABLET BY MOUTH EVERY MORNING 90 tablet 3 Lancets misc Use to test blood sugar 1 times daily 100 each 1 lidocaine (Lidoderm) 5 % patch APPLY 1 PATCH TOPICALLY ONCE PER DAY. REMOVE & DISCARD PATCH WITHIN 12 HOURS OR DIRECTED BY MD. 30 patch 1 melatonin 5 MG tablet Take 1 tablet by mouth if needed at bedtime. metFORMIN XR (Glucophage-XR) 500 MG 24 hr tablet TAKE 1 TABLET BY MOUTH TWICE A DAY 180 tablet 1 naloxone (Narcan) 4 mg/0.1 mL nasal spray PLEASE SEE ATTACHED FOR DETAILED DIRECTIONS pregabalin (Lyrica) 225 MG capsule TAKE 1 CAPSULE BY MOUTH TWICE A DAY 60 capsule 2 Tirzepatide (Mounjaro) 10 MG/0.5ML solution auto-injector Inject 10 mg under the skin 1 (one) time per week. 2 mL 0 traZODone (Desyrel) 100 MG tablet take 3 tablets by mouth every day at bedtime venlafaxine XR (Effexor XR) 150 MG 24 hr capsule TOME 2 C PSULAS POR V A ORAL TODOS LOS D EN LA CHIDI LOPEZ [DISCONTINUED] Blood Glucose Monitoring Suppl ([employer] [place] Lite) w/Device kit Use to test blood sugar 1 times daily 1 kit 0 [DISCONTINUED] cyclobenzaprine (Flexeril) 5 MG tablet 1 tablet. [DISCONTINUED] methocarbamol (Robaxin) 500 MG tablet TAKE 2 TABLETS (1,000 MG) BY MOUTH EVERY 8 (EIGHT) HOURS IF NEEDED FOR MUSCLE SPASMS 168 tablet 0 [DISCONTINUED] oxyCODONE (Roxicodone) 5 MG immediate release tablet Take 5 mg by mouth every 6 (six) hours if needed for severe pain. [DISCONTINUED] oxyCODONE-acetaminophen (Percocet) 10-325 MG tablet 1 tablet in the morning and 1 tablet at noon and 1 tablet in the evening and 1 tablet before bedtime. [DISCONTINUED] Tirzepatide-Weight Management (Zepbound) 10 MG/0.5ML solution auto-injector Inject 0.5 mL (10 mg) under the skin 1 (one) time per week. 2 mL 0 No current facility-administered medications on file prior to visit. documented in this encounter Miscellaneous Notes * Assessment & Plan Note - Elizabeth Goncalves MD - 02/02/2025 3:31 PM EDT Associated Problem(s): T2DM (type 2 diabetes mellitus) ([facility]) Continue with metformin 500 mg daily and Mounjaro 10 mg weekly Counseling about diabetic diet done today * Assessment & Plan Note - Elizabeth Goncalves MD - 02/02/2025 3:30 PM EDT Associated Problem(s): Asthma well-controlled continue with same interventions * Assessment & Plan Note - Elizabeth Goncalves MD - 02/02/2025 3:29 PM EDT Associated Problem(s): Fibromyalgia Patient was educated about multidisciplinary approach for her condition, it was advise cardiovascular exercise, maintain hydration, treat anxiety/depression and take medications as directed I prescribed today Flexeril 10 mg every 8 hours she is aware of side effects somnolence * Assessment & Plan Note - Elizabeth Goncalves MD - 02/02/2025 3:28 PM EDT Associated Problem(s): Depression Continue to follow-up with psychiatrist and therapist documented in this encounter Plan of Treatment Upcoming Encounters Date Type Department Care Team (Late st Contact Info) Description 06/07/2025 2:30 PM EST Office Visit [facility] [address] [place] [address] DawsonMulu, OD [address] [facility] [place] [address] documented as of this encounter Visit Diagnoses Diagnosis Diabetic mononeuropathy simplex (HCC)- Primary Type II or unspecified type diabetes mellitus with neurological manifestations, not stated as uncontrolled 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order, without psychotic features (CMS/HCC) (HCC) Mild intermittent asthma, unspecified whether complicated Continuous opioid dependence (CMS/HCC) (HCC) Opioid type dependence, continuous abuse Fibromyalgia Unspecified myalgia and myositis Dietary counseling Dietary surveillance and counseling Exercise counseling Type 2 diabetes mellitus without complication, without long-term current use of insulin (HCC) documented in this encounter Additional Health Concerns Assessment Noted Time PHQ-9 Depression Total Score: 0 02/03/20 25 2:44 PM EDT documented as of this encounter Care Teams Retail Equipment Associate Relationship Specialty Start Date End Date Elizabeth Dunn MD [address] [place] [address] PCP - General Family Medicine 03/17/18 Thao Barnhart Car MoverWash Crew Person 02/07/23 documented as of this encounter
--- NOTE | ~2025-02-07 | US_ITS ---
CLINICAL HISTORY: pain swelling LEs Venous duplex ultrasound bilateral lower extremity Comparison: US/SR - US VENOUS DUPLEX LE LT - 11/12/23 18:09 EDT Findings: The visualized deep veins are fully compressible with normal Doppler color flow and spectral tracings. No popliteal cyst. IMPRESSION: 1. Negative for bilateral lower extremity deep vein thrombosis. This document has been electronically signed by: Tobin Ivy MD on 02/07/2025 21:39:34
[2025-02-07 19:29] VITALS: BP 146/90; PULSE 70; O2SAT 96
[2025-02-07 19:38] VITALS: BP 109/53; PULSE 70; RESP 20; TEMP 36.7; O2SAT 95; BMI 34.3
--- OUTSIDE RECORDS SUMMARY | 2025-02-07 20:42 | XMS_ITS | Encounter Summary ---
Author Organization [employer] Address [address] [place] [address] [address]t [place] [address] Care Team Providers Care Associate Professor Of Psychology Name Role Phone Elizabeth Dunn MD Primary Care Provide r Encounter Details Date Type Department Care Team (Late Contact Info) Description 05/17/2022 Abstract [facility] [address] [place] [address] Linda Romero, PharmD [address] [place] [address] Social History Tobacco Use Types Packs/Day Years [...] Department Care Team (Late Contact Info) Description 06/07/2025 2:30 PM EST Office Visit [facility] [address] [place] [address] Dawson, Mulu, OD [address] [place] [address] documented as of this encounter Visit Diagnoses Not on filedocumented in this encounter Care Teams Associate Professor Of Psychology Relationship Specialty Start Date End Date Elizabeth Dunn MD [address] [place] [address] PCP - General Family Medicine 03/17/18 Thao Barnhart Funding SpecialistShirt Presser 02/07/23 documented as of this encounter
--- OUTSIDE RECORDS SUMMARY | 2025-02-07 20:42 | XMS_ITS | Encounter Summary ---
Author Organization [employer] Address [address] [facility] [address]t [place] [address] Care Team Providers Care Warehouser Name Role Phone Elizabeth Dunn MD Primary Care Provide r Reason for Visit * Reason Comments Med Refill Encounter Details Date Type Department Care Team ([facility] st Contact Info) Description 12/15/2024 Refill [facility] [address] [place], [place] [phone] Elizabeth Dunn MD [address] [place], [place] [phone] Social History Tobacco Use Types Packs/Day Years [...] Description 06/07/2025 2:30 PM EST Office Visit [facility] [address] [place] [address] Dawson, Mulu, OD [address] [place] [address] documented as of this encounter Visit Diagnoses Not on filedocumented in this encounter Additional Health Concerns Assessment Noted Time PHQ-9 Depression Total Score: 0 08/20/19 24 2:32 PM EDT documented as of this encounter Care Teams Warehouser Relationship Specialty Start Date End Date Elizabeth Dunn MD [address] [place], [place] [phone] PCP - General Family Medicine 03/17/18 Thao Barnhart Handbag DesignerDiesel Retrofit Designer 02/07/23 documented as of this encounter
--- OUTSIDE RECORDS SUMMARY | 2025-02-07 20:42 | XMS_ITS | Encounter Summary ---
Author Organization [employer] Address [address] [facility] [address] [place] [address] Care Team Providers Care Fiscal Assistant Name Role Phone Elizabeth Dunn MD Primary Care Provide r Reason for Visit * Reason Onset Date Comments Nurse Triage 11/26/2023 Encounter Details Date Type Department Care Team (Late st Contact Info) Description 11/26/2023 Telephone [facility] [address] [place] [address] Elizabeth Dunn MD [address] [place] [address] Nurse Triage Social History Tobacco Use Types [...] to PT. Per pt has not called finish specialist to notify of increased pain with [...] become worse * Telephone Encounter - Abraham Zak - 11/26/2023 2:59 PM EDT Symptom: Back Pain - Not From Injury Outcome: Talk to a nurse or provider within 15 minutes Reason: Can't walk (unless normally can't walk) documented in this encounter Plan of Treatment Upcoming Encounters Date Type Department Care Team (Late st Contact Info) Description 06/07/2025 2:30 PM EST Office Visit [facility] [address] [place], [place] [phone] Mulu Osman, OD [address] [place] [address] documented as of this encounter Visit Diagnoses Not on filedocumented in this encounter Additional Health Concerns Assessment Noted Time PHQ-9 Depression Total Score: 0 08/20/19 24 2:32 PM EDT documented as of this encounter Care Teams Fiscal Assistant Relationship Specialty Start Date End Date Elizabeth Dunn MD [address] [place] [address] PCP - General Family Medicine 03/17/18 Thao Barnhart Logging WorkerApplication Packaging Specialist 02/07/23 documented as of this encounter
--- OUTSIDE RECORDS SUMMARY | 2025-02-07 20:42 | XMS_ITS | Encounter Summary ---
Author Organization [employer] Address [address] [facility] [address] [place] [address] Care Team Providers Care Road Production General Manager Name Role Phone Elizabeth Dunn MD Primary Care Provide r Reason for Visit * Reason Onset Date Comments Prior Authorization 01/14/2025 PA: Augusto und Encounter Details Date Type Department Care Team ([facility] st Contact Info) Description 01/14/2025 Telephone [facility] [address] [place] [address] Elizabeth Dunn MD [address] [place] [address] Prior Authorization ([facility]JA PA: Trish) Social History Tobacco Use Types Packs/Day Years [...] your housing situation today? I have katia sing 08/20/[address] you li [...] encounter Miscellaneous Notes * Telephone Encounter - Donna Crespo - 01/20/2025 2:51 PM EDT Patient was last seen 07/15/2024, patient needs to be seen in person to be weighted. PA cannot be done until patient is seen. * Telephone Encounter - Lo Clemens - 01/20/2025 9:06 AM EDT Tc from pt requesting a call back to discuss update Contact pt at [phone] (djiboutian) * Telephone Encounter - Lo Clemens - 01/14/2025 11:55 AM EDT Tc from pt stating a PA is needed for Tirzepatide-Weight Management (Zepbound) 10 MG/0.5ML solutionauto-injector Contact pt at [phone] (djiboutian) documented in this encounter Plan of Treatment Upcoming Encounters Date Type Department Care Team (Late st Contact Info) Description 06/07/2025 2:30 PM EST Office Visit [facility] [address] [place], [place] [phone] Dawson, Mulu, OD [address] [place], [place] [phone] documented as of this encounter Visit Diagnoses Not on filedocumented in this encounter Additional Health Concerns Assessment Noted Time PHQ-9 Depression Total Score: 0 08/20/19 24 2:32 PM EDT documented as of this encounter Care Teams Road Production General Manager Relationship Specialty Start Date End Date Elizabeth Dunn MD [address] [place] [address] PCP - General Family Medicine 03/17/18 Thao Barnhart Spares SchedulerManaging Consultant Clinical Professor 02/07/23 documented as of this encounter
--- OUTSIDE RECORDS SUMMARY | 2025-02-07 20:42 | XMS_ITS | Encounter Summary ---
Author Organization [employer] Address [address] [facility] [address]t [place] [address] Care Team Providers Care Veneer Drier Tailer Name Role Phone Elizabeth Dunn MD Primary Care Provide r Encounter Details Date Type Department Care Team (Latest Contact Info) Description 02/02/2025 Travel Social History Tobacco Use Types Packs/Day [...] Not at all 02/02/2025 2:44 PM EDT Alexanrdu Nix ra, [place] * Trouble falling or [...] Nix [place] documented as of this encounter Plan of Treatment Upcoming Encounters Date Type Department Care Team (Late st Contact Info) Description 06/07/2025 2:30 PM EST Office Visit [facility] [address] [place] [address] Mulu Osman, OD [address] [place] [address] documented as of this encounter Visit Diagnoses Not on filedocumented in this encounter Additional Health Concerns Assessment Noted Time PHQ-9 Depression Total Score: 0 02/03/20 25 2:44 PM EDT documented as of this encounter Care Teams Veneer Drier Tailer Relationship Specialty Start Date End Date Elizabeth Dunn MD [address] [place] [address] PCP - General Family Medicine 03/17/18 Thao Barnhart Dumpcart DriverPatient Access 02/07/23 documented as of this encounter
--- OUTSIDE RECORDS SUMMARY | 2025-02-07 20:42 | XMS_ITS | Encounter Summary ---
Author Organization [employer] Address [address] [facility] [address] [place] [address] Care Team Providers Care Laboratory Engineer Name Role Phone Elizabeth Dunn MD Primary Care Provide r Reason for Visit * Reason Onset Date Comments Med Refill 06/21/2024 Encounter Details Date Type Department Care Team ([facility] st Contact Info) Description 06/21/2024 Telephone [facility] [address] [place], [place] [phone] Elizabeth Dunn MD [address] [place] [address] Med Refill Social History Tobacco Use Types [...] 500 MG tablet To be sent to: [facility]/pharmacy #[id number] [place] [address] documented in this encounter Plan of Treatment Upcoming Encounters Date Type Department Care Team (Late st Contact Info) Description 06/07/2025 2:30 PM EST Office Visit [facility] [address] [place] [address] Mulu Osman, OD [address] [place] [address] documented as of this encounter Visit Diagnoses Not on filedocumented in this encounter Additional Health Concerns Assessment Noted Time PHQ-9 Depression Total Score: 0 08/20/19 24 2:32 PM EDT documented as of this encounter Care Teams Laboratory Engineer Relationship Specialty Start Date End Date Elizabeth Dunn MD [address] [place] [address] PCP - General Family Medicine 03/17/18 Thao Barnhart Hot PatcherNerve Specialist 02/07/23 documented as of this encounter
--- OUTSIDE RECORDS SUMMARY | 2025-02-07 20:42 | XMS_ITS | Clinical Summary ---
Author Organization [address] [facility] Address [address] [place] [address] Phone Care Team Providers Care Junior Financial Analyst Name Role Phone Elizabeth Dunn MD [...] sinusitis 03/18/2024 Microcytic anemia 03/18/2024 Benzodiazepine dependence ([facility] V24, [facility] V28) 03/18/2024 Blurring of visual image 03/18/2024 Chronic idiopathic constipation 03/18/2024 T2DM (type 2 diabetes mellitus) ([facility] V24, CM S[facility] V28) 03/18/2024 Injury of kidney 03/18/2024 Tinnitus 03/18/2024 [...] 02/15/1972 Diabetes: Annual Retina Eye Exam 02/15/1972 Hepatitis A Vaccines (1 of 2 - Risk 2-dose series) 1981 Cervical Cancer Screening: Pap Smear 1983 Pneumococcal Vaccine: 50+ Years (2 of 2 - PCV) 04/14/2015 04/14/2014, 03/12/2000 RSV Immunization Adult Patients (1 - Risk 60-74 years 1-dose series) 2022 Cholesterol Screening (Lipid Panel) 02/13/2024 Colorectal Cancer Screening: Colonoscopy 02/13/2024 Hepatitis C Screening 02/13/2024 Social Influencers of Health Screening 02/13/2024 Diabetes: Annual Urine Albumin-Creatinine Ratio (uACR) 03/18/2024 Depression Screening 05/12/2024 Diabetes: Blood Sugar Control Test (HGBA1C) 06/10/2024 12/09/2023 COVID-19 Vaccine ( season) 2025 08/02/2022, 12/07/2021, 05/25/2021, Additional history exists Influenza Vaccine (#1) 2025 , 04/21/2023, 03/14/2021, Additional history exists Diabetes: Annual GFR (Glomerular Filtration Rate) 01/24/2025 [...] age to complete this topic Meningococcal B Vaccine Aged Out No l onger eligible based on patient's age to complete this topic RSV Immunization Patients Under 20 months Aged Out No longer eligible based on patient's age to complete this topic Varicella Vaccines Aged Out No longer eligible based on patient's age to complete this topic Insurance MEDICAID - [place] Care Teams Junior Financial Analyst Relationship Specialty Start Date End Date Elizabeth Dunn MD [address] [phone] PCP - General Internal Medicine 02/12/24
--- OUTSIDE RECORDS SUMMARY | 2025-02-07 20:42 | XMS_ITS | Encounter Summary ---
Author Organization [employer] Address [address] [facility] [address] [place] [phone] Care Team Providers Care Elementary Tutor Name Role Phone Elizabeth Dunn MD Primary Care Provide r Encounter Details Date Type Department Care Team ([facility] st Contact Info) Description 03/26/2024 Orders Only [facility] MEDICINE [address] [place] [address] Elizabeth Dunn MD [address] [place] [address] Social History Tobacco Use Types Packs/Day Years [...] Description 06/07/2025 2:30 PM EST Office Visit [facility] OPTOMETRY [address], [place] [phone] DawsonMulu ham, OD [address] [place] [address] documented as of this encounter Visit Diagnoses Not on filedocumented in this encounter Additional Health Concerns Assessment Noted Time PHQ-9 Depression Total Score: 0 08/20/19 24 2:32 PM EDT documented as of this encounter Care Teams Elementary Tutor Relationship Specialty Start Date End Date Elizabeth Dunn MD [address] [place], [place] [phone] PCP - General Family Medicine 03/17/18 Thao Barnhart Woods WardenFarm Machine Tender 02/07/23 documented as of this encounter
--- OUTSIDE RECORDS SUMMARY | 2025-02-07 20:42 | XMS_ITS | Encounter Summary ---
Author Organization [employer] Address [address] [place] [address] [address] [place] [address] Care Team Providers Care Forging Press Setter Up Name Role Phone Elizabeth Dunn MD Primary Care Provide r Encounter Details Date Type Department Care Team (Late Contact Info) Description 01/29/2023 Orders Only [facility] MEDICINE [address] [place], [place] [phone] Provider, MD Hector Social History Tobacco Use [...] Description 06/07/2025 2:30 PM EST Office Visit [facility] OPTOMETRY [address] [place], [place] [phone] Mulu Osman, OD [address] [place], [place] [phone] documented as of this encounter Procedures Procedure [...] documented as of this encounter Care Teams Forging Press Setter Up Relationship Specialty Start Date End Date Elizabeth Dunn MD [address] [place] [address] PCP - General Family Medicine 03/17/18 Thao Barnhart Wafer FabricatorBell Maker 02/07/23 documented as of this encounter
--- OUTSIDE RECORDS SUMMARY | 2025-02-07 20:42 | XMS_ITS | Clinical Summary ---
Author Organization [facility], Address [address] [place] [address] Phone Care Team Providers Care Screen Printing Machine Operator Helper Name Role Phone Elizabeth Dunn MD Primary [...] 01/17/2021 Obesity 01/17/2021 01/17/2021 Osteoarthritis 01/17/2021 01/17/2021 Post-traumatic stress disorder 01/17/2021 01/17/2021 Immunizations Immunization Administration [...] 77 07/15/2023 2:36 PM EST Temperature 36.1 C (97 F) 07/15/2023 2:36 PM EST Respiratory Rate - [...] A1C 07/21/2023 04/21/2023, 05/13 Influenza Vaccine (#1) 2025 , 03/14/2021, 03/02/2020, Additional history exists Pneumococcal Vaccine: [...] Calculated 126 0 - 160 mg/dL 05/31/2020 [facility] Provider LAB BLOOD ORDERABLES Sandy l Result from Last 3 Months or Most Recently Relevant to Health Maintenance Insurance Medicaid [place] Member Subscriber Plan / Payer (Ef fective 2020-Present) Name:Jose Antonio Rivasda Relation to Subscriber:Self Name:Lelo Riavs Payer ID:Not on file Group ID:Not on file Type:Not on file Address: [address] [place] Care Teams Screen Printing Machine Operator Helper Relationship Specialty Start Date End Date Elizabeth Dunn MD [address] [place] [phone] PCP - General Internal Medicine 11/17/20
--- OUTSIDE RECORDS SUMMARY | 2025-02-07 20:42 | XMS_ITS | Encounter Summary ---
Author Organization [employer] Address [address] [facility] [address]t h [address] [place] [phone] Care Team Providers Care Transformer Stock Clerk Name Role Phone Elizabeth Dunn MD Primary Care Provide r Encounter Details Date Type Department Care Team ([facility] st Contact Info) Description 01/12/2025 Orders Only [facility] MEDICINE [address] [place] [address] Elizabeth Dunn MD [address] [place] [address] Social History Tobacco Use Types Packs/Day Years [...] Description 06/07/2025 2:30 PM EST Office Visit [facility] OPTOMETRY [address] [place], [place] [phone] DawsonMulu ham, OD [address] [place] [address] documented as of this encounter Visit Diagnoses Not on filedocumented in this encounter Additional Health Concerns Assessment Noted Time PHQ-9 Depression Total Score: 0 08/20/19 24 2:32 PM EDT documented as of this encounter Care Teams Transformer Stock Clerk Relationship Specialty Start Date End Date Elizabeth Dunn MD [address] [place], [place] [phone] PCP - General Family Medicine 03/17/18 Thao Barnhart Cover CutterAstro Technician 02/07/23 documented as of this encounter
--- OUTSIDE RECORDS SUMMARY | 2025-02-07 20:43 | XMS_ITS | Clinical Summary ---
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 clonazePAM (KlonoPIN) 1 MG tablet Take 1 tablet by mouth twice daily & take 1/2 tablet by mouth daily as needed Active melatonin 5 MG tablet Take 1 tablet by mouth if needed at bedtime. 023 Active venlafaxine XR (Effexor XR) 150 MG 24 hr capsule TOME 2 C PSULAS POR V A ORAL TODOS LOS D EN LA CHIDI JESSICA 023 Active hydroCHLOROthiaz uzair (HYDRODiuril) 50 MG tabletIndication s:Primary hypertension TAKE 1 TABLET BY MOUTH EVERY MORNING 90 tablet 3 025 Active metFORMIN XR (Glucophage-XR) 500 MG 24 hr tabletIndication s:Type 2 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 (HCC) TAKE 1 TABLET BY MOUTH TWICE A DAY 180 tablet 1 025 Active lidocaine (Lidoderm) 5 % patchIndications :Chronic bilateral low back pain with left-sided sciatica APPLY 1 PATCH TOPICALLY ONCE PER DAY. REMOVE & DISCARD PATCH WITHIN 12 HOURS OR DIRECTED BY MD. 30 patch 1 025 Active pregabalin (Lyrica) 225 MG capsuleIndicatio ns:Chronic bilateral low back pain with left-sided sciatica TAKE 1 CAPSULE BY MOUTH TWICE A DAY 60 capsule 2 025 Active ferrous sulfate 325 (65 Fe) MG EC tabletIndication s:Microcytic anemia TAKE 1 TABLET BY MOUTH EVERY DAY. DO NOT CRUSH, CHEW OR SPLIT. 90 tablet Active ARIPiprazole (Abilify) 2 MG tablet Take 1 tablet by mouth Once per day. 025 Active naloxone (Narcan) 4 mg/0.1 mL nasal spray PLEASE SEE ATTACHED FOR DETAILED DIRECTIONS 025 Active traZODone (Desyrel) 100 MG tablet take 3 tablets by mouth every day at bedtime 025 Active Diclofenac Sodium 1 % gelIndications:F ibromyalgia Apply on affected area twice a day 350 g 3 025 Active Tirzepatide (Mounjaro) 10 MG/0.5ML solution auto-injectorInd ications:Type 2 diabetes mellitus without complication, without long-term current use of insulin ([facility]) Inject 10 mg under the skin 1 (one) time per week. 2 mL 025 Active FREESTYLE LITE test stripIndications :Type 2 diabetes mellitus without complication, without long-term current use of insulin ([facility]) Use to test blood sugar 1 times daily 100 each 12 025 2025 Active Lancets miscIndications: Type 2 diabetes mellitus without complication, without long-term current use of insulin ([facility]) Use to test blood sugar 1 times daily 100 each 1 025 Active Alcohol Swabs 70 % padsIndications: Type 2 diabetes mellitus without complication, without long-term current use of insulin ([facility]) Use to test blood sugar 1 times daily 100 each 1 025 Active Blood Glucose Monitoring Suppl (FreeStyle Lite) w/Device kitIndications:T ype 2 diabetes mellitus without complication, without long-term current use of insulin ([facility]) USE TO TEST BLOOD SUGAR 1 TIMES DAILY 1 kit 025 Active fluticasone (Flovent) 110 MCG/ACT inhaler Inhale 2 puffs every 12 (twelve) hours. 020 2024 Discontinued(T herapy completed) albuterol 108 (90 Base) MCG/ACT inhaler Inhale 1 puff every 6 (six) hours if needed. 021 2024 Discontinued(T herapy completed) Diclofenac Sodium 1 % gelIndications:F ibromyalgia Apply on affected area twice a day 350 g 3 023 2024 Discontinued(R eorder (will not trigger notification to Pharmacy)) glucose blood (FREESTYLE LITE) test strip Test blood sugar twice a day 50 each 11 023 2024 Discontinued(T herapy completed) Linzess 145 MCG capsule Take 1 capsule by mouth 1 (one) time each day. 023 2024 Discontinued(T herapy completed) amitriptyline (Elavil) 150 MG tablet TOME NEVAEH TABLETA TODOS LOS D AL ACOSTARSE FOR 30 DAYS 023 2024 Discontinued(T herapy completed) lidocaine (Lidoderm) 5 % patchIndications :Protrusion of lumbar intervertebral disc Apply 1 patch topically in the morning. Remove & discard patch within 12 hours or as directed by MD. 30 patch 1 024 2024 Discontinued(T herapy completed) oxyCODONE (Roxicodone) 5 MG immediate release tablet Take 5 mg by mouth every 6 (six) hours if needed for severe pain. 2024 Discontinued senna-docusate (Chayo-Colace) 8.6-50 MG tablet Take 2 tablets by mouth 2 times daily. 2024 Discontinued(T herapy completed) polyethylene glycol, PEG, 3350 (Miralax) 17 g packet Take 17 g by mouth in the morning. 2024 Discontinued(T herapy completed) traZODone (Desyrel) 150 MG tablet Take 150 mg by mouth at bedtime. 2024 Discontinued(T herapy completed) acetaminophen (Tylenol) 500 MG tabletIndication s:Chronic midline low back pain with left-sided sciatica Take 2 tablets (1,000 mg) by mouth every 8 (eight) hours if needed for mild pain. 60 tablet 024 2024 Discontinued(T herapy completed) gabapentin (Neurontin) 600 MG tabletIndication s:S/P lumbar fusion,Chronic bilateral low back pain with left-sided sciatica TAKE 1 TABLET BY MOUTH 3 TIMES DAILY. 90 tablet 2 025 2024 Discontinued(T herapy completed) ferrous sulfate 325 (65 Fe) MG EC tabletIndication s:Microcytic anemia TAKE 1 TABLET BY MOUTH EVERY DAY. DO NOT CRUSH, CHEW OR SPLIT. 90 tablet 025 2024 Discontinued Tirzepatide-Weig ht Management (Zepbound) 5 MG/0.5ML solution auto-injectorInd ications:Class 2 severe obesity with serious comorbidity and body mass index (BMI) of 35.0 to 35.9 in adult, unspecified obesity type Inject 0.5 mL (5 mg) as directed 1 (one) time per week. INJECT ONE PEN (=5 MG) SUBCUTANEOUSLY ONCE A WEEK 2 mL 025 2024 Discontinued(T herapy completed) Tirzepatide-Weig ht Management (Zepbound) 7.5 MG/0.5ML solution auto-injector Inject 0.5 mL (7.5 mg) under the skin 1 (one) time per week. INJECT ONE PEN (=7.5 MG) SUBCUTANEOUSLY ONCE A WEEK 2 mL 025 2024 Discontinued(T herapy completed) methocarbamol (Robaxin) 500 MG tabletIndication s:Chronic midline low back pain with left-sided sciatica TAKE 2 TABLETS (1,000 MG) BY MOUTH EVERY 8 (EIGHT) HOURS IF NEEDED FOR MUSCLE SPASMS 168 tablet 025 2024 Discontinued Tirzepatide-Weig ht Management (Zepbound) 10 MG/0.5ML solution auto-injectorInd ications:Class 2 severe obesity with serious comorbidity and body mass index (BMI) of 35.0 to 35.9 in adult, unspecified obesity type Inject 0.5 mL (10 mg) under the skin 1 (one) time per week. 2 mL 025 2024 Discontinued(R eorder (will not trigger notification to Pharmacy)) methocarbamol (Robaxin) 500 MG tabletIndication s:Chronic midline low back pain with left-sided sciatica TAKE 2 TABLETS (1,000 MG) BY MOUTH EVERY 8 (EIGHT) HOURS IF NEEDED FOR MUSCLE SPASMS 168 tablet 025 2024 Discontinued Tirzepatide-Weig ht Management (Zepbound) 10 MG/0.5ML solution auto-injectorInd ications:Class 2 severe obesity with serious comorbidity and body mass index (BMI) of 35.0 to 35.9 in adult, unspecified obesity type Inject 0.5 mL (10 mg) under the skin 1 (one) time per week. 2 mL 025 2024 Discontinued cyclobenzaprine (Flexeril) 5 MG tablet 1 tablet. 2024 Discontinued oxyCODONE-acetam inophen (Percocet) 10-325 MG tablet 1 tablet in the morning and 1 tablet at noon and 1 tablet in the evening and 1 tablet before bedtime. 2024 Discontinued Blood Glucose Monitoring Suppl ([employer] [place] Lite) w/Device kitIndications:T ype 2 diabetes mellitus without complication, without long-term current use of insulin (HCC) Use to test blood sugar 1 times daily 1 kit 025 2024 Discontinued Hospital, Clinic, or Other Facility Administered Medication Ordered Dose Route Frequency Start Date End Date Status ketorolac (Toradol) injection 30 mgIndications:Acute pain of right shoulder 30 mg IM Once 01/26/2025 01/26/2025 Ended Active Problems Problem Noted Date Diagnosed Date Diabetic mononeuropathy simplex 02/02/2025 Acute pain of right shoulder 01/26/2025 Class 1 obesity due to exces s calories with serious comorbidity and body mass index (BMI) of 34.0 to 34.9 in adult 01/26/2025 Assessment & Plan (01/26/2025 4:08 PM EDT): Today extensive discussion was done about life style modifications I advise healthy diet (low calorie) and exercise Family history of colon cancer 01/25/2025 History of adenomatous polyp of colon 01/25/2025 Long-term use of high-risk medication 01/25/2025 Encounter for screening for malignant neoplasm o f colon 01/25/2025 Encounter for screening for malignant neoplasm o f rectum 01/25/2025 Class 2 severe obesity with serious comorbidity [...] f/u to monitor weight and side effects T2DM (type 2 diabetes mellitus) 03/18/2024 Assessment & Plan (02/02/2025 3:31 PM EDT): Continue with metformin 500 mg daily and Mounjaro 10 mg weekly Counseling about diabetic diet done today Assessment & Plan (01/26/2025 4:01 PM EDT): Lab Results Component Value Date HGBA1C 5.6 01/26/2025 HGBA1C 6.7 (A) 07/15/2024 HGBA1C 6.6 (A) 04/07/2024 - Lab Results Component Value Date MICROALBUR 9.0 01/05/2024 CREATININE 1.01 05/13/2024 -Changes: Patient has being taking zepbound her A1c imporved, I mela switch to mounjaru 10mg to maintain her glucose levels stable - Diabetic eye exam:pending - Diabetic foot exam:up tp date - Continue lifestyle modifications - Continue current medications - Follow up: 3 months Breast pain 01/07/2024 S/P lumbar fusion 01/07/2024 [...] left foot, she is being manage by pain/junk removal specialist (medications prescribed by specialist only) Chronic bilateral low back pain with left-sided sciatica 08/20/2023 Assessment & Plan (01/07/2024 2:12 PM EDT): I will increase gabapentin to 600mg TID and refer her back to pain management Pelvic pain 08/20/2023 Assessment & Plan (08/21/2023 12:20 PM EDT): 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 as per patient's request Preop examination [...] for mental health support Asthma 04/21/2023 04/21/2023 Assessment & Plan (02/02/2025 3:30 PM EDT): well-controlled continue with same interventions COVID-19 04/21/2023 04/21/2023 Diabetes 1.5, managed as type 2 04/21/2023 04/21/2023 Diverticulosis 04/21/2023 04/21/2023 Feeling of incomplete bladder emptying 3 04/21/2023 Hesitancy of micturition 04/21/2023 023 Leg pain 04/21/2023 04/21/2023 Migraine 04/21/2023 04/21/2023 Shoulder pain, right 04/21/2023 04/21/2023 Symptom of leg swelling 04/21/2023 04/21/20 23 Varicose veins of right lower extremity with inf lammation 04/21/2023 04/21/2023 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order (CMS/HCC) 12/23/2022 Assessment & Plan (12/23/2022 2:02 PM [...] plastic surgery Fibromyalgia 08/02/2022 Assessment & Plan (02/02/2025 3:29 PM EDT): Patient was educated about multidisciplinary approach for her condition, it was advise cardiovascular exercise, maintain hydration, treat anxiety/depression and take medications as directed I prescribed today Flexeril 10 mg every 8 hours she is aware of side effects somnolence Assessment & Plan (01/11/2023 10:44 AM EDT): [...] prescriptions without first consulting health care provider Acute nontraumatic kidney injury 01/17/2021 Benzodiazepine dependence ([facility]/HCC) 10/14/2017 Chronic idiopathic constipation 04/08/2017 Chronic left-sided [...] referred to pain management for further management History of hysterectomy for benign disease 04/08 Hyperlipidemia 04/08/2017 Depression 04/08/2017 Assessment & Plan (02/02/2025 3:28 PM EDT): Continue to follow-up with psychiatrist and therapist Multiple somatic complaints 04/08/2017 Peripheral edema 04/08/2017 [...] interventions Fibromyositis 06/20/2011 Status post panniculectomy 08/13/200704/21 Resolved Problems Problem Noted Date Diagnosed Date Resolved Date Continuous opioid dependence (CMS/[facility]) 04/08/2017 02/02/2025 Encounters Date Type Department Care Team Description 02/02/2025 3:00 PM EDT Telemedicine [address] [phone] Elizabeth Dunn MD Diabetic mononeuropathy simplex ([facility]) (Primary Dx); 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order, without psychotic features ([facility]); Mild intermittent asthma, unspecified whether complicated; Continuous opioid dependence ([facility]); Fibromyalgia; Dietary counseling; Exercise counseling; Type 2 diabetes mellitus without complication, without long-term current use of insulin ([facility]) 02/02/2025 Travel 02/01/[address] [phone] Elizabeth Dunn MD 01/26/2025 3:30 PM EDT Office Visit [address] [phone] Elizabeth Dunn MD Type 2 diabetes mellitus without complication, without long-term current use of insulin ([facility]) (Primary Dx); Fibromyalgia; Acute pain of right shoulder; Class 1 obesity due to excess calories with serious comorbidity and body mass index (BMI) of 34.0 to 34.9 in adult 01/26/[address] [address] Elizabeth Dunn MD Type 2 diabetes mellitus without complication, without long-term current use of insulin ([facility]) 01/26/2025 Travel 01/25/2025 Telephone [facility] [address] [place] [phone] Elizabeth Dunn MD chart prep 01/21/2025 Travel 01/20/[address] [phone] Elizabeth Dunn MD appt 01/15/2025 Refill [facility] [address] [place] [address] [phone] Vanna Chen MD Microcytic anemia 01/14/[address] [phone] Elizabeth Dunn MD Prior Authorization ( CAMELIA: Trish) 01/12/2025 Orders Only [facility] [address] [place] [address] Elizabeth Dunn MD 01/12/2025 Refill [facility] [address] [place] [address] Elizabeth Dunn MD Class 2 severe obesity with serious comorbidity and body mass index (BMI) of 35.0 to 35.9 in adult, unspecified obesity type (CMS/HCC) 01/11/2025 Refill [facility] [address] [place] [address] Elizabeth Dunn MD Chronic midline low back pain with left-sided sciatica 01/04/2025 10:20 AM EDT Office Visit [facility] [address] [place] [address] Dawson, Mulu, OD Type 2 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 ([facility]/HCC) (Primary Dx) 01/04/2025 Travel 12/19/2024 Refill [facility] [address] [place] [address] Elizabeth Dunn MD Chronic bilateral low back pain with left-sided sciatica 12/15/2024 Orders Only [facility] [address] [place] [address] Elizabeth Dunn MD Class 2 severe obesity with serious comorbidity and body mass index (BMI) of 35.0 to 35.9 in adult, unspecified obesity type (CMS/HCC) (Primary Dx) 12/15/2024 Telephone [facility] [address] [place] [address] Elizabeth Dunn MD Med Refill 12/15/2024 Refill [facility] [address] [place] [address] Elizabeth Dunn MD 12/08/2024 Refill [facility] [address] [place] [address] Elizabeth Dunn MD Chronic bilateral low back pain with left-sided sciatica 12/07/2024 Telephone [facility] [address] [place] [address] Elizabeth Dunn MD No Show 12/07/2024 Telephone [facility] [address] [place] [phone] Elizabeth Dunn MD Chart Prep 12/06/2024 Refill [facility] [address] [place] [address] Elizabeth Dunn MD Chronic midline low back pain with left-sided sciatica 11/17/2024 Telephone [facility] [address] [place] [address] Elizabeth Dunn MD Medication Question 11/17/2024 Refill [facility] [address] [place], [place] [phone] Elizabeth Dunn MD from Last 3 Months Immunizations Immunization Administration Dates Next Due DT (pediatric) 07/20/2008 [...] Sign Reading Time Taken Comments Blood Pressure 138/100 01/26/2025 3:20 PM EDT Pulse 69 01/26/2025 3:20 PM EDT Temperature 36.7 C (98.1 F) 01/26/2025 3:20 PM EDT Respiratory Rate 22 01/26/2025 3:20 PM EDT Oxygen Saturation 95% 01/26/2025 3:20 PM EDT Inhaled Oxygen Concentration - - Weight 95.3 kg (210 lb 3.2 oz) 01/26/2025 3:20 P M EDT Height 165.1 cm (5' 5 ) 01/26/2025 3:20 PM EDT Body Mass Index 34.98 01/26/2025 3:20 PM EDT Plan of Treatment Upcoming Encounters Date Type Department Care Team (Late st Contact Info) Description 06/07/2025 2:30 PM EST Office Visit [facility] [address] [place], [place] [phone] Dawson, Mulu, OD [address] [place] [address] Health Maintenance Due Date Last Done Comments CT Colonography 1960 FIT DNA/Cologuard 1960 FIT 1962 FOBT 1960 Sigmoidoscopy 1960 Disability Screening 1962 Diabetes: Foot Exam 02/15/1972 Eye Exam 02/15/1972 Pap Smear 1983 Cervical Cancer Screening 02/15/1992 HPV/Cotest 02/15/1992 Pneumococcal Vaccine: 50+ Years (2 of 2 - PCV) 04/14/2015 04/14/2014, 03/12/2000 RSV Patients and Patients Aged 60 years or older (1 - Risk 60-74 years 1-dose series) 2022 Diabetes: Urine Protein Screening 01/04/2025 01/05/2024, 05/31/2020 Lipid Panel 01/04/2025 01/05/2024, 05/31/2020 Influenza Vaccine (#1) 2025 , 08/06/2023, 04/21/2023, Additional history exists Mammogram 02/09/2025 02/10/2024, 1005/2023, 05/10/2022, Additional history exists Diabetes: Hemoglobin A1C 07/26/2025 025, 07/15/2024, 04/07/2024, Additional history exists Colonoscopy 12/10/2025 12/10/2022 Colorectal Cancer Screening 12/10/2025 Tobacco Screening 01/26/2026 01/26/2025 Alcohol/Substance Use Screening 02/02/2026 02/02/2025 Depression Screening 02/02/2026 02/02/2025, 02/03/20 25 SDOH Screening 02/02/2026 02/02/2025 DTaP/Tdap/Td Vaccines (3 - Td or Tdap) 12/23/2032 12/23/2022, 06/20/2011, 07/20/2008, Additional history exists HIV Screening Completed 10/23/2020 Hepatitis C Screening Completed 10/23/2020 Zoster Vaccines Completed 02/24/2023, 12/23/2022 COVID-19 Vaccine Completed 04/07/2024, , 12/07/2021, Additional history exists HIB Vaccines Aged Out [...] Name Priority Date/Time Associated Diagnosis Comments POCT GLUCOSE Routine 01/26/2025 3:42 PM EDT Type 2 diabetes mellitus without complication, without long-term current use of insulin ([facility]/HCC) POCT GLYCATED HEMOGLOBIN, TOTAL Routine 01/26/2025 3:42 PM EDT Type 2 diabetes mellitus without complication, without long-term current use of insulin (CMS/HCC) BI MAMMOGRAM DIAGNOSTIC TOMOSYNTHESIS BILATERAL Routine [...] Recently Relevant to Health Maintenance Results * POCT Hgb A1c (01/26/2025 3:42 PM EDT) Hemoglobin A1C 5.6 4.0 - 5.7 % QC Media Lot # [id number] Lot# Expiration Date [id number] Blood 01/26/2025 3:42 PM EDT Elizabeth Goncalves MD POINT OF CARE TEST EN TER/EDIT ORDERABLES Final Result * POCT Glucose (01/26/2025 3:42 PM EDT) Glucose Blood, POC 92 60 - 200 mg/dL QC Media Lot # [id number] Lot# Expiration Date 113,025 Blood Capillary blood specimen / Unknown 01/26/2025 3:42 PM EDT us Elizabeth Goncalves MD POINT OF CARE TEST EN TER/EDIT ORDERABLES Final Result * BI Mammogram Diagnostic Tomosynthesis Bilateral (02/10/2024 2:00 PM EDT) Anatomical Region Laterality Modality Breast Bilateral Mammography 02/10/2024 2:00 PM EDT Narrative 02/10/2024 5:26 PM EDT [facility] [address] [place] [address] Mammography Report Signed Patient: Lelo Watters MR#: [id number] : 1960 Acct:[id number] Age/Sex: 63 / F ADM Date: 02/10/24 Loc: HO.MAMMO Attending Dr: Elizabeth Goncalves MD Ordering Physician: Elizabeth Dunn MD Results: 1Negative Date of Service: 02/10/24 Follow Up: 1 Year From Orig ina Mammogram Procedure(s): MM tomosynthesis diagnostic BI Accession Number(s): [id number] cc: Elizabeth Dunn MD EXAMINATION: MM DIAGNOSTIC [...] 02/10/24 1724 DD/ 1400 TD/TT: 02/10/24 1410 Entry Clerk: Procedure Note Donotuseinterpreter, Image - 02/10/2024 [facility] [address] [place] [address] Mammography Report Signed Patient: Lelo Watters RMR#: [id number] : 1960cct:[id number] Age/Sex: 63 / FADM Date: 02/10/24 Loc: HO.MAMMO Attending Dr: Elizabeth Goncalves MD Ordering Physician: Elizabeth Dunn MDResults: 1Negative Date of Service: 02/10/24Follow Up: 1 Year From Orig [facility] Mammogram Procedure(s): MM tomosynthesis diagnostic BI Accession Number(s): [id number] cc: Elizabeth Dunn MD EXAMINATION: MM DIAGNOSTIC [...] 02/10/24 1724 DD/ 1400 TD/TT: 02/10/24 1410 Entry Clerk: us Elizabeth Goncalves MD IMG BI PROCEDURES Patrick wendie Result - Final * Albumin, Random Urine W/Creatinine (01/05/2024 8:25 AM EDT) Creatinine, Urine 223.33 mg/dL [facility] Microalbumin Urine 9.0 mg/L [facility] Microalbum Creatinine Ratio Ur 4.0 <30 ug/mg cr [facility] Comment:Albumin/Creatinine R atio Reference Ranges: Normal: < 30 ug/mg creatinine Microalbuminuria: 30 - 300 ug/mg creatinineClinical Albuminuria: > 300 ug/mg creatinine Urine (Urine, Random) 01/05/2024 8:25 AM EDT 01/05/2024 11:48 AM EDT us Elizabeth Goncalves MD LAB URINE ORDERABLES Final Result [facility] [address] [place] [address] [phone] * (ABNORMAL) Lipid Panel with Reflex to Direct LDL (01/05/2024 8:22 AM EDT) Triglycerides 180(H) <150 mg/dL [facility] Comment:Desirable Triglyceri de: less than 150 mg/dLBorderline High Triglyceride 150-199 mg/dLHigh Triglyceride: 200-499 mg/dLVery High Triglyceride: greater than or equal to 5OO mg/dL Cholesterol 240(H) <200 mg/dL [facility] Comment:Desirable Cholestero l: less than 200 mg/dLBorderline High Cholesterol: 200-239 mg/dLHigh Cholesterol: greater than 239 mg/dL LDL Cholesterol Calculated 138(H) <100 mg/dL [facility] Comment:Desirable LDL: less than 100 mg/dLNear Optimal/Above Optimal LDL: 110- 129 mg/dLBorderline High LDL: 130-159 mg/dLHigh LDL: 160-189 mg/dLVery High LDL: greater than or equal to 190 mg/dL HDL Cholesterol 66 >40 mg/dL [facility] Comment:Desirable HDL: great er than 40 mg/dL Note: This HDL assay may give artificially low results in patients with liver disease. Blood 01/05/2024 8:22 AM EDT 01/05/2024 11:52 AM EDT us Elizabeth Goncalves MD LAB BLOOD ORDERABLES Final Result [facility] [address] [place] [address] [phone] * Hm Colonoscopy (12/10/2022) Historical Provider HEALTH MAINTENANCE Final Result * HEPATITIS C AB W/REFL TO HCV RNA, QN, PCR (10/23/2020 10:08 AM EDT) HEPATITIS C ANTIBODY NON-REACT JOSE NON-REACT JOSE [facility] INDEX 0.01 <1.00 [facility] Comment: HCV antibody was non-reactive. There is no laboratory evidence of HCV infection. In most cases, no further action is required. However, if recent HCV exposure is suspected, a test for HCV RNA (test code 98270) is suggested. For additional information please refer to http://education.tokia.lt/faq/IXJ53l2 (This link is being provided for informational/ educational purposes only.) 10/23/2020 10:0 8 AM EDT Elizabeth Goncalves MD HISTORICAL/NON ORDERA BLE LABS Final Result [facility] [address] * HIV 1/2 ANTIGEN/ANTIBODY,FOURTH GENERATION W/RFL (10/23/2020 10:08 AM EDT) HIV-1/2 ANTIGEN AND ANTIBODIES, 4TH GENERATION W/ REFLEX NON-REACT JOSE NON-REACT [facility] Comment: HIV-1 antigen and HIV-1/HIV-2 antibodies were not detected. There is no laboratory evidence of HIV infection. PLEASE NOTE: This information has been disclosed to you from records whose confidentiality may be protected by state law. If your state requires such protection, then the state law prohibits you from making any further disclosure of the information without the specific written consent of the person to whom it pertains, or as otherwise permitted by law. A general authorization for the release of medical or other information is NOT sufficient for this purpose. For additional information please refer to http://education.[employer]/faq/DWT866 (This link is being provided for informational/ educational purposes only.) The performance of this assay has not been clinically validated in patients less than 2 years old. 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
--- OUTSIDE RECORDS SUMMARY | 2025-02-07 20:43 | XMS_ITS | Encounter Summary ---
Author Organization [employer] Address [address] [place] [address] [address] [place] [address] Care Team Providers Care Clinical Microbiologist Name Role Phone Elizabeth Dunn MD Primary Care Provide r Reason for Visit * Reason Onset Date Comments Med Refill 12/04/2022 Encounter Details Date Type Department Care Team (Late st Contact Info) Description 12/04/2022 Telephone [facility] MEDICINE [address] [place] [address] Elizabeth Dunn MD [address] [place] [address] Med Refill Social History Tobacco Use Types [...] Description 06/07/2025 2:30 PM EST Office Visit [facility] OPTOMETRY [address] [place], [place] [phone] Mulu Osman, OD [address] [place] [address] documented as of this encounter Visit Diagnoses Not on filedocumented in this encounter Additional Health Concerns Assessment Noted Time PHQ-9 Depression Total Score: 0 08/03/19 3:13 PM EDT documented as of this encounter Care Teams Clinical Microbiologist Relationship Specialty Start Date End Date Elizabeth Dunn MD [address] [place], [place] [phone] PCP - General Family Medicine 03/17/18 Thao Barnhart Technical Service EngineerHeel Gummer 02/07/23 documented as of this encounter
--- OUTSIDE RECORDS SUMMARY | 2025-02-07 20:43 | XMS_ITS | Patient Health Record ---
Author Organization [facility] Address [address] [place] [address] Care Team Providers Care Fishing Reel Assembler Name Role Phone SHAHRZAD ENRIQUE Primary Care Provider Fracisco Cruz [phone] Allergies Allergen (clinical drug ingredient) Drug/Non Drug Allergy documented on EMR Reaction Allergy Type Onset Date Status quetiapine Seroquel Unknown Drug Allergy Active morphine Morphine Sulfate Unknown Drug Allergy Active Reason For Referral No Information Medications Medication SIG (Take, Route, Frequency, Duration) Notes Start Date End Date Status oxyCODONE-Acetaminophen 10-3 25 MG 1 tablet as needed Orally every 6 hrs Active traZODone HCl 100 MG 2 tablets Orally at hs Active hydroCHLOROthiazide 12.5 MG 1 tablet Ora lly two times a day Active clonazePAM 1 MG Orally 3 times Active Cyclobenzaprine HCl 5 MG 1 tablet Orally one or two times a day Active Venlafaxine HCl 75 MG 1 tablet with food Orally Twice a day Active Problems Problem Type SNOMED Code ICD Code Onset Dates Problem Status W/U Status Risk Notes Problem 967554768 Encounter for screening for malignant neoplasm of colon (Z12.11) Active confirmed Problem 874639118 History of adenomatous polyp of colon (Z86.010) Active confirmed Problem Screening for malignant neoplasm of rectum (737743387) Encounter for screening for malignant neoplasm of rectum (Z12.12) Active confirmed Problem 481821644 Family history of colon cancer (Z80.0) Active confirmed Problem 903486609 Long-term use of high-risk medication (Z79.899) Active confirmed Plan Of Treatment Pending Test Test Name Order Date GI BIOPSY 02/05/2016 Future Test Test Name Order Date COLONOSCOPY 10/31/2015 Insurance Providers Payer Name Payer Address Payer Phone Subscriber Number Group Number Insured Name Patient Relationship to Insured Coverage Start Date Coverage End Date [facility] [address] [facility] [place] [id number] MICHAEL SUGGS Self - patient is the insured MED[place] OF [employer] [address] [place] [id number] MICHAEL SUGGS Self - patient is the insured Medical (General) History Medical History History ICD Code Colonoscopy 2004 and 2009 with small tub ular adenomas removed Depression/Anxiety Fibromyalgia Fluid retention Denies MS,DM,CVA,Lung disease,renal dise ase Surgical History Surgery Date(Month/Year) Laparoscopic gastric bypass in 2005 Breast reduction Panniculectomy Hysterectomy with left oophorectomy Neck surgery--for a disc
--- OUTSIDE RECORDS SUMMARY | 2025-02-07 20:43 | XMS_ITS | Encounter Summary ---
Author Organization [employer] Address [address] [place] [address] [address] [address] Care Team Providers Care Mounter Brass Wind Instruments Name Role Phone Elizabeth Dunn MD Primary Care Provide r Reason for Visit * Reason Onset Date Comments Med Refill 12/17/2022 Encounter Details Date Type Department Care Team (Late st Contact Info) Description 12/17/2022 Telephone [facility] MEDICINE [address] [place] [address] Elizabeth Dunn MD [address] [place] [address] Med Refill Social History Tobacco Use Types [...] 2:30 PM EST Office Visit [facility] OPTOMETRY [address] [place], [place] [phone] Mulu Osman, OD [address] [place] [address] documented as of this encounter Visit Diagnoses Not on filedocumented in this encounter Additional Health Concerns Assessment Noted Time PHQ-9 Depression Total Score: 0 08/03/19 3:13 PM EDT documented as of this encounter Care Teams Mounter Brass [employer] Instruments Relationship Specialty Start Date End Date Elizabeth Dunn MD [address] [place], [place] [phone] PCP - General Family Medicine 03/17/18 Thao Barnhart Gas Line RepairerHoeing Row Boss 02/07/23 documented as of this encounter
[2025-02-07 20:58] LABS: MANUAL DIFF FLAG NO
--- NOTE | 2025-02-07 21:05 | PC.NURSE ---
provider into assess pt, pt having bedside ultrasound, medicated per mar.
[2025-02-07 21:14] LABS: Alanine Aminotransferase 8 U/L (0-31); Albumin Level 4.2 g/dL (3.5-5.0); Alkaline Phosphatase 72 U/L (39-117); Anion Gap 17 (12-20); Aspartate Amino Transferase 19 U/L (5-31); Blood Urea Nitrogen 16 mg/dL (9-16); Calcium 9.2 mg/dL (8.4-10.2); Carbon Dioxide 28 mmol/L (22-29); Chloride 103 mmol/L (96-108); Creatinine Clr Calc Pharmacy 62.1; Estimated Glomerular Filt Rate 53; Magnesium 2.1 mg/dL (1.6-2.6); Potassium 4.5 mmol/L (3.3-5.1); Sodium 143 mmol/L (135-145); Total Protein 7.1 g/dL (6.5-8.0)
[2025-02-07 21:16] LABS: Hematocrit 32.5 % (37.0-47.0); Hemoglobin 10.4 g/dl (12.0-16.0); Imm Gran Abs Auto 0.05 X10*3/uL (0.00-0.03); Imm Gran Pct Auto 0.5 % (0.0-0.4); Lymphocytes Absolute Auto 2.7 X10*3/uL (1.2-4.9); Mean Corpuscular HGB Conc 32.0 g/dl (31.0-35.0); Mean Corpuscular Hemoglobin 23.9 pg (27.0-33.0); Mean Corpuscular Volume 74.7 fL (80.0-98.0); NRBC Abs Auto 0.000 X10*3/uL (0.0-0.012); NRBC Pct Auto 0.0 /100WBC (0.0-0.2); Platelet Count 224 X10*3/uL (160-400); Red Blood Count 4.35 X10*6/uL (4.20-5.50); White Blood Count 9.9 X10*3/uL (4.8-10.8)
[2025-02-07 21:19] LABS: NT Pro B Type Natriuretic Pept 36.0 pg/mL (<300)
[2025-02-07 22:19] VITALS: BP 122/77; PULSE 62; RESP 16; TEMP 36.8; O2SAT 96
--- NOTE | 2025-02-07 22:26 | ED_ITS ---
HPI - General Adult General Chief complaint: Extremity Injury, Lower Stated complaint: Leg swelling/pain x3 days Time Seen by Provider: 02/07/25 20:08 Source: patient Limitations: language barrier History of Present Illness ED Provider: Kaitlynn Wang PA-C HPI narrative: 64-year-old female with a history of retention, diabetes, severe peripheral neuropathy, fibromyalgia, chronic back pain, arthritis, migraine, asthma, depression who presents with bilateral leg pain x4 days. Pain from the knees to the feet, with the associated subjective swelling. Patient states she feels as if the toes of the right foot are discolored. Denies paresthesia or cool pale limb. Patient denies new activity that could have exacerbated her chronic pain. Denies fever. Related Data Home Medications ?Medication ?Instructions ?Recorded ?Confirmed aripiprazole 10 mg tablet 10 mg PO DAILY 01/23/2404/11 ferrous sulfate 325 mg (65 mg 325 mg PO DAILY 01/23/24 04/23/24 iron) tablet,delayed release trazodone 100 mg tablet 300 mg PO BEDTIME 01/23/24 1 06/24/23 venlafaxine 150 mg 300 mg PO QAM 01/23/2404/23 capsule,extended release 24 hr semaglutide (weight loss) 0.25 0.25 mg subcut QWEEK mg/0.5 mL subcutaneous pen injector (Charles) gabapentin 300 mg capsule 300 mg PO BID 08/12/24 Previous Rx's ?Medication ?Instructions ?Recorded clonazepam 1 mg tablet 1 mg PO BID 30 days #60 tabs 12/16/22 albuterol sulfate 90 mcg/actuation 1 inh inhalation QI D PRN shortness 08/12/23 aerosol inhaler of breath or wheezing #6.7 g kulwinder gabapentin 600 mg tablet 600 mg PO BEDTIME #30 tabs 0 08/12/23 hydrochlorothiazide 50 mg tablet 50 mg PO DAILY #30 ta bs 08/12/23 metformin 500 mg tablet,extended 500 mg PO BIDWM #60 t abs 08/12/23 release 24 hr polyethylene glycol 3350 17 gram 17 g PO DAILY #30 ea 08/12/23 oral powder packet sennosides 8.6 mg-docusate sodium 2 tab PO BID #120 ta bs 08/12/23 50 mg tablet (Senna Plus) acetaminophen 500 mg capsule 1,000 mg (2 x 500 mg) PO TID PRN 09/25/23 pain #90 caps methocarbamol 750 mg tablet 750 mg PO TID moderate yfn n & 09/25/23 muscle spasms #30 tabs lidocaine 5 % topical patch 1 patch topical DAILY #30 ea 11/13/23 ketorolac 10 mg tablet 10 mg PO Q8H 3 days #9 tabs 03/01/24 lidocaine 5 % topical patch 1 patch topical DAILY #30 ea 03/01/24 (Lidoderm) naloxone 4 mg/actuation nasal 4 mg intranasal Q2M PRN opioid 08/12/24 spray (Narcan) overdose #2 ea oxycodone 5 mg tablet 5 mg PO Q8H PRN pain 10 days #30 08/12/24 tabs doxycycline hyclate 100 mg capsule 100 mg PO BID #13 c aps 02/07/25 ketorolac 10 mg tablet 10 mg PO Q6H PRN pain #20 ta bs 02/07/25 Allergies Allergy/AdvReac Type Severity Reaction Status Date / Time morphine (MORPHINE) Allergy Intermediate PALPITATIONS, Verified 02/07/25 19:44 tachicardia quetiapine (Seroquel) Allergy Intermediate Aggitation Verified 02/07/25 19:44 orphenadrine (ORPHENADRINE) AdvReac Intermediate RAPID Verified 02/07/25 19:44 HEART RATE Review of Systems 2 Review of Systems: Yes all other systems are reviewed and are negative Constitutional: Constitutional: Denies fatigue and Denies fever(s) Cardiovascular: Cardiovascular: Denies chest pain, Reports leg edema and Denies dyspnea Respiratory: Respiratory: Denies dyspnea Musculoskeletal: Musculoskeletal: Denies arthralgias, Denies joint swelling, Denies numbness and Denies tingling Neurologic: Denies numbness, Denies tingling and Denies paresthesias Endocrine: Endocrine: Denies fatigue PMFSH Past Medical History Attestation statement: The following information was validated with the patient. Medical History Weakness Arthritis History of brain inflammation Protrusion of lumbar intervertebral disc Tinnitus Venous insufficiency Osteoarthritis Loss of hair History of headache Fibromyositis Fatigue Hyperlipidemia HTN (hypertension) Continuous opioid dependence Sinusitis Anemia Anxiety Diverticulosis Chronic idiopathic constipation Migraine Asthma Depression Diabetes 1.5, managed as type 2 Fibromyalgia Surgical History History of back surgery History of esophagogastroduodenoscopy (EGD) S/P panniculectomy Hx of hysterectomy Hx of oophorectomy Hx of bilateral breast reduction surgery H/O colonoscopy History of pubovaginal sling Gastric bypass status for obesity Family History Family History Mother Colon cancer Social History Social History Household Members: Spouse and Children Household Members Other:: lives alone Housing: House Are you a primary veterinarian laboratory animal care to a significant other at home: No Do you presently have visiting nurse or other home services: Yes ([employer]) Alcohol intake: never Comment: IV infiltrated Patient Tobacco Use Status: Never used Tobacco Smoked in Last 30 Days: No Second Hand Smoke Exposure: No Use of substances other than those prescribed or required for medical reasons: No Advance Directives: Yes Advance Directives on File: Yes Advance Directives Date on File: 07/24/23 Do you have a plan to hurt others: No Plan service: No Current occupational status: disabled Sexual orientation: Straight/Heterosexual Gender identity: Female Physical Exam ED Vital Signs: Vital Signs - 24 hr 02/07/25 19:38 02/07/25 22:19 Temperature 98.0 F 98.2 F Pulse Rate 70 62 Respiratory Rate 20 16 Blood Pressure 109/53 L 122/77 Pulse Oximetry 95 96 Oxygen Delivery Method Room Air Room Air BMI result Body Mass Index 34.3 Const Other: Alert Orientation/consciousness: patient oriented x3 Resp Effort & Inspection: normal respiratory effort Cardio Other: Normal peripheral perfusion, the limbs are warm and well-perfused, +1 pedal edema noted bilaterally, right greater than left, P, T DP pulses +2 with Doppler Skin Other: Warm dry no rash Neuro Other: Antalgic gait General: patient oriented x3, no focal motor deficits and CN's II-XI intact bilaterally Psych Other: Cooperative Medications Administered Discontinued Medications Generic Name Dose Route Start Last Admin Trade Name Freq PRN Reason Stop Dose Admin Doxycycline Monohydrate 100 mg 02/07/25 22:26 02/07/25 22:41 Doxycycline Monohydrate 100 Mg Capsule PO 02/07/25 22:27 100 mg ONCE ONE Administration Gabapentin 600 mg 02/07/25 20:40 02/07/25 21:13 Gabapentin 600 Mg Tablet PO 02/07/25 20:41 600 mg ONCE ONE Administration Ketorolac Tromethamine 15 mg 02/07/25 20:40 02/07/25 21:13 Ketorolac Tromethamine 15 Mg/Ml Vial IM 02/07/25 20:41 15 mg ONCE ONE Administration Medical Decision Making Medical Decision Making MDM Narrative: 64-year-old female with a history of retention, diabetes, severe peripheral neuropathy, fibromyalgia, chronic back pain, arthritis, migraine, asthma, depression who presents with bilateral leg pain x4 days. Pain from the knees to the feet, with the associated subjective swelling. Patient states she feels as if the toes of the right foot are discolored. Denies paresthesia or cool pale limb. Patient denies new activity that could have exacerbated her chronic pain. Denies fever. Problem: Diabetes, known neuropathy, known chronic pain, known fibromyalgia History: Per patient which is poor I have considered the following differential diagnoses: DVT, arterial occlusion/claudication, cellulitis, chronic pain, septic joint Plan: Objectively, the patient has subtle swelling of bilateral lower extremities, likely dependent edema, we will obtain Doppler study to rule out DVT. We will screen basic labs in the event she will require anticoagulation therapy. Objectively, there is pronounced swelling over the dorsum of the right foot with some erythema, likely cellulitis. We will treat with doxy. Doubtful to be septic joint, she has preserved flexion and extension of the ankle, the patient is experiencing exacerbation of her chronic pain, she is prescribed gabapentin, we will give 600 mg and 15 mg of intramuscular Toradol I have independently reviewed the following tests: Labs: No leukocytosis, not anemic, no electrolyte abnormality, inflammatory markers are not significantly elevated Ultrasound bilateral DVT studies:Findings: The visualized deep veins are fully compressible with normal Doppler color flow and spectral tracings. No popliteal cyst. IMPRESSION: 1. Negative for bilateral lower extremity deep vein thrombosis. Differential Diagnosis Differential Diagnoses: The differential diagnosis associated with the presentation includes See medical decision Admission/Observation Consideration of admission/observation: Escalation of care including admission/observation considered Not applicable Lab Data [facility] Lab Attestation statement: I reviewed the patient's lab results. 02/07/25 20:52 02/07/25 20:52 Labs: Lab Results 02/07/25 Range/Units 20:52 WBC 9.9 (4.8-10.8) X10*3/uL RBC 4.35 (4.20-5.50) X10*6/uL Hgb 10.4 L (12.0-16.0) g/dl Hct 32.5 L (37.0-47.0) % MCV 74.7 L (80.0-98.0) fL MCH 23.9 L (27.0-33.0) pg MCHC 32.0 (31.0-35.0) g/dl RDW 18.5 H (11.0-16.0) % Plt Count 224 (160-400) X10*3/uL MPV 11.2 (9.4-12.3) fL Immature Gran % (Auto) 0.5 H (0.0-0.4) % Neut % (Auto) 63.2 (45-73) % Lymph % (Auto) 27.0 (20-40) % Rutherford % (Auto) 7.7 (2-11) % Eos % (Auto) 1.4 (0-4) % Baso % (Auto) 0.2 (0-2) % Lymph # (Auto) 2.7 (1.2-4.9) X10*3/uL [place]ford # (Auto) 0.8 (0.1-1.2) X10*3/uL Eos # (Auto) 0.1 (0.0-0.4) X10*3/uL Baso # (Auto) 0.0 (0.0-0.2) X10*3/uL Abs Immat Gran (auto) 0.05 H (0.00-0.03) X10*3/uL Absolute Neuts (auto) 6.2 (2.0-8.3) x10*3/uL Absolute Nucleated RBC 0.000 (0.0-0.012) X10*3/uL Nucleated RBC % (auto) 0.0 (0.0-0.2) /100WBC ESR 25 H (0-20) MM/HR Sodium 143 (135-145) mmol/L Potassium 4.5 (3.3-5.1) mmol/L Chloride 103 (96-108) mmol/L Carbon Dioxide 28 (22-29) mmol/L Anion Gap 17 (12-20) BUN 16 (9-16) mg/dL Creatinine 1.06 (0.5-1.4) mg/dL Estim Creat Clear Calc 62.1 Estimated GFR 53 Random Glucose 77 (60-115) mg/dL Calcium 9.2 (8.4-10.2) mg/dL Magnesium 2.1 (1.6-2.6) mg/dL Total Bilirubin 0.2 (0.0-1.0) mg/dL AST 19 (5-31) U/L ALT 8 (0-31) U/L Alkaline Phosphatase 72 (39-117) U/L C-Reactive Protein 1.09 H (< or = 0.50) mg/dL NT-Pro-B Natriuret Pep 36.0 (<300) pg/mL Total Protein 7.1 (6.5-8.0) g/dL Albumin 4.2 (3.5-5.0) g/dL Radiology Impression Discussion of test interpretation with radiology: I have reviewed the radiologist's reading. Discharge Plan Discharge Clinical Impression: Bilateral leg and foot pain, Peripheral neuropathy, Cellulitis of foot, right Patient Disposition: Home, Self-Care Instructions: Cellulitis (ED), Peripheral Neuropathy (ED), Leg Pain (ED) Additional Instructions: The ultrasound was normal, you do not have clots in the legs. Your pain is secondary to your known underlying peripheral neuropathy. See home care instructions. You have been prescribed gabapentin for your neuropathy. Given you feel this medication is not helpful to you, I would make an appointment with your primary care provider to discuss other options to manage your chronic pain. They may refer you to a pain management service. You can also take the ketorolac, with food, this is an anti-inflammatory. It is questionable that you may be developing a skin infection of the skin over the right foot, this is called cellulitis, take the doxycycline as directed. Follow up with your primary care provider within a week to 10 days, to discuss additional medication for your chronic peripheral neuropathy. Prescriptions: New doxycycline hyclate 100 mg capsule 100 mg PO BID Qty: 13 0RF ketorolac 10 mg tablet 10 mg PO Q6H PRN (Reason: pain) Qty: 20 0RF Rx Instructions: maximum total duration of 5 days from all oral, intranasal, or parenteral formulations. Patient received an intramuscular dose of Toradol here in the emergency room. No Action clonazepam 1 mg tablet 1 mg PO BID 30 Days Qty: 60 0RF albuterol sulfate 90 mcg/actuation HFA aerosol inhaler 1 inh inhalation QID PRN (Reason: shortness of breath or wheezing) Qty: 6.7 0RF gabapentin 600 mg tablet 600 mg PO BEDTIME Qty: 30 0RF hydrochlorothiazide 50 mg tablet 50 mg PO DAILY Qty: 30 0RF polyethylene glycol 3350 17 gram powder in packet 17 g PO DAILY Qty: 30 0RF sennosides-docusate sodium [Senna Plus] 8.6-50 mg Tablet 2 tab PO BID Qty: 120 0RF metformin 500 mg Tablet Extended Release 24 Hr 500 mg PO BIDWM Qty: 60 0RF lidocaine 5 % adhesive patch,medicated 1 patch topical DAILY Qty: 30 0RF Rx Instructions: leave on most painful area for up to 12 hrs ketorolac 10 mg tablet 10 mg PO Q8H 3 Days Qty: 9 0RF lidocaine [Lidoderm] 5 % adhesive patch,medicated 1 patch topical DAILY Qty: 30 0RF Rx Instructions: leave on most painful area for up to 12 hrs Wegovy 0.25 mg/0.5 mL pen injector 0.25 mg subcut QWEEK gabapentin 300 mg capsule 300 mg PO BID oxycodone 5 mg tablet 5 mg PO Q8H PRN (Reason: pain) 10 Days Qty: 30 0RF Rx Instructions: Partial Fill upon patient request. naloxone [Narcan] 4 mg/actuation spray,non-aerosol 4 mg intranasal Q2M PRN (Reason: opioid overdose) Qty: 2 0RF Rx Instructions: spray 1 dose into ONE nostril; alternate nostrils w each dose until help arrives methocarbamol 750 mg tablet 750 mg PO TID Qty: 30 0RF acetaminophen 500 mg capsule 1,000 mg PO TID PRN (Reason: pain) Qty: 90 0RF aripiprazole 10 mg tablet 10 mg PO DAILY venlafaxine 150 mg capsule,extended release 24hr 300 mg PO QAM trazodone 100 mg tablet 300 mg PO BEDTIME ferrous sulfate 325 mg (65 mg iron) tablet,delayed release (DR/EC) 325 mg PO DAILY Print Language: Kittitian
--- NOTE | 2025-02-07 22:48 | PC.NURSE ---
medicated per mar, cms and positive pedal pulses by doppler
[2025-02-07 23:20] VITALS: BP 122/77; PULSE 62; RESP 16; TEMP 36.8; O2SAT 96
== END 2025-02-07 23:21 | disposition home or self-care (01) ==
PROVIDERS: Physician Assistant Medical; Emergency Provider Emergency Medicine; PCP Internal Medicine
DX: M79.662 Pain in left lower leg (principal); M79.661 Pain in right lower leg; M79.672 Pain in left foot; M79.671 Pain in right foot; E13.42 Other specified diabetes mellitus with diabetic polyneuropathy; L03.115 Cellulitis of right lower limb; I10 Essential (primary) hypertension; G89.29 Other chronic pain; Z79.899 Other long term (current) drug therapy
CPT/HCPCS: 36415; 80053; 83735; 83880; 85025; 85652; 86140; 93970; 96372; 99284; J1885

== ENCOUNTER → 2025-02-07 20:35 | Outpatient (BNV) | payer MEDICAID, SELFPAY | PROVIDERS: Emergency Provider Emergency Medicine; PCP Internal Medicine; Visit Provider Radiology Diagnostic Radiology | DX: R22.43 Localized swelling, mass and lump, lower limb, bilateral (principal); M79.661 Pain in right lower leg; M79.662 Pain in left lower leg | CPT/HCPCS: 93970 ==

== ENCOUNTER 2025-02-11 18:25 | Emergency (ER) | payer MEDICAID, SELFPAY ==
--- NOTE | ~2025-02-11 | CT_ITS ---
CLINICAL HISTORY: severe constipation SCAN AT 2200 *no iv 2204* CT abdomen and pelvis with contrast Comparison: 10/29/2022 Findings: Lung bases are clear. No acute bony abnormalities. L5-S1 posterior fusion hardware intact. Small hiatal hernia. Gastric bypass. Liver and spleen within normal limits. Pancreas and adrenal glands unremarkable. Gallbladder is within normal limits. No significant focal renal abnormalities. No renal stones or hydronephrosis. Abdominal aorta is normal in caliber. No free fluid or adenopathy in the pelvis. No diverticulitis. Appendix unremarkable. Large amount of stool throughout colon. No significant bowel distention. Hysterectomy. No adnexal abnormality. Impression: Large amount of stool throughout colon Otherwise unremarkable This document has been electronically signed by: Estuardo Rodriguez MD on 02/11/2025 23:22:49
--- NOTE | ~2025-02-11 | XR_ITS ---
CLINICAL HISTORY: overlying erythema swelling 3 view right foot Comparison: None provided Findings: Bones are osteopenic. No ankle effusion. No radiopaque foreign body. Calcaneal plantar and Achilles enthesopathy noted. IMPRESSION: 1. No acute findings. This document has been electronically signed by: Rafael Carvalho MD, PHD on 02/12/2025 01:30:50
--- NOTE | ~2025-02-11 | XR_ITS ---
CLINICAL HISTORY: constipation Abdominal radiographs Comparison: CT/REG/WI/SR - CT ABDOMEN PELVIS W IV CON - 10/29/22 18:48 EDT Findings: There is a nonobstructive bowel gas pattern. Stool quantity is moderate to severely increased. Postsurgical change in the left upper quadrant. No pneumoperitoneum or pneumatosis. Clips in the pelvis. Posterior fusion at L5/S1 with an interbody disc spacer. No acute osseous or soft tissue abnormality. Impression: Moderate to severe increase in stool quantity is consistent with the given history of constipation. This document has been electronically signed by: Leanne Becerra MD on 02/11/2025 19:34:19
[2025-02-11 18:42] VITALS: BP 119/71; PULSE 68; RESP 18; TEMP 36.8; O2SAT 97; BMI 25.7
[2025-02-11 18:49] VITALS: BP 138/72; PULSE 74; O2SAT 96
--- NOTE | 2025-02-11 18:53 | ED_ITS ---
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 She was evaluated for this on 02/07/25 at our facility. Discharged with doxycycline and toradol for treatment of cellulitis of the right foot. States that she has been taking both medications as prescribed with continued pain. It appears she was prescribed gabapentin however tells me she has not taken this in quite some time. She reports constipation at baseline. She typically has a bowel movement 2x/ week. She takes a yellow powder for this, cannot recall the name. No known stool softener. She reports decreased urination x3-4 months. Reports having to strain to void. Denies dysuria, hematuria. Denies abdominal pain, flank pain. No fever/chills. She has not mentioned this to her outpatient provider. Related Data Home Medications ?Medication ?Instructions ?Recorded ?Confirmed aripiprazole 10 mg tablet 10 mg PO DAILY 01/23/2404/11 ferrous sulfate 325 mg (65 mg 325 mg PO DAILY 01/23/24 04/23/24 iron) tablet,delayed release trazodone 100 mg tablet 300 mg PO BEDTIME 01/23/24 1 06/24/23 venlafaxine 150 mg 300 mg PO QAM 01/23/2404/23 capsule,extended release 24 hr semaglutide (weight loss) 0.25 0.25 mg subcut QWEEK mg/0.5 mL subcutaneous pen injector (Wegovy) gabapentin 300 mg capsule 300 mg PO BID 08/12/24 Previous Rx's ?Medication ?Instructions ?Recorded clonazepam 1 mg tablet 1 mg PO BID 30 days #60 tabs 12/16/22 albuterol sulfate 90 mcg/actuation 1 inh inhalation QI D PRN shortness 08/12/23 aerosol inhaler of breath or wheezing #6.7 g kulwinder gabapentin 600 mg tablet 600 mg PO BEDTIME #30 tabs 0 08/12/23 hydrochlorothiazide 50 mg tablet 50 mg PO DAILY #30 ta bs 08/12/23 metformin 500 mg tablet,extended 500 mg PO BIDWM #60 t abs 08/12/23 release 24 hr polyethylene glycol 3350 17 gram 17 g PO DAILY #30 ea 08/12/23 oral powder packet sennosides 8.6 mg-docusate sodium 2 tab PO BID #120 ta bs 08/12/23 50 mg tablet (Senna Plus) acetaminophen 500 mg capsule 1,000 mg (2 x 500 mg) PO TID PRN 09/25/23 pain #90 caps methocarbamol 750 mg tablet 750 mg PO TID moderate yfn n & 09/25/23 muscle spasms #30 tabs lidocaine 5 % topical patch 1 patch topical DAILY #30 ea 11/13/23 ketorolac 10 mg tablet 10 mg PO Q8H 3 days #9 tabs 03/01/24 lidocaine 5 % topical patch 1 patch topical DAILY #30 ea 03/01/24 (Lidoderm) naloxone 4 mg/actuation nasal 4 mg intranasal Q2M PRN opioid 08/12/24 spray (Narcan) overdose #2 ea oxycodone 5 mg tablet 5 mg PO Q8H PRN pain 10 days #30 08/12/24 tabs doxycycline hyclate 100 mg capsule 100 mg PO BID #13 c aps 02/07/25 ketorolac 10 mg tablet 10 mg PO Q6H PRN pain #20 ta bs 02/07/25 docusate sodium 100 mg capsule 100 mg PO DAILY #30 cap s 02/12/25 (Colace) polyethylene glycol 3350 17 gram 17 g PO DAILY #30 ea 02/12/25 oral powder packet (Miralax) Allergies Allergy/AdvReac Type Severity Reaction Status Date / Time morphine (MORPHINE) Allergy Intermediate PALPITATIONS, Verified 03/04/25 13:53 tachicardia quetiapine (Seroquel) Allergy Intermediate Aggitation Verified 03/04/25 13:53 orphenadrine (ORPHENADRINE) AdvReac Intermediate RAPID Verified 03/04/25 13:53 HEART RATE Review of Systems 2 Review of Systems: Yes all other systems are reviewed and are negative PMFSH Past Medical History Attestation statement: The following information was validated with the patient. Source: old records reviewed and nursing notes reviewed Medical History Weakness Arthritis History of brain inflammation Protrusion of lumbar intervertebral disc Tinnitus Venous insufficiency Osteoarthritis Loss of hair History of headache Fibromyositis Fatigue Hyperlipidemia HTN (hypertension) Continuous opioid dependence Sinusitis Anemia Anxiety Diverticulosis Chronic idiopathic constipation Migraine Asthma Depression Diabetes 1.5, managed as type 2 Fibromyalgia Surgical History History of back surgery History of esophagogastroduodenoscopy (EGD) S/P panniculectomy Hx of hysterectomy Hx of oophorectomy Hx of bilateral breast reduction surgery H/O colonoscopy History of pubovaginal sling Gastric bypass status for obesity Family History Family History Mother Colon cancer Social History Social History Household Members: Spouse and Children Household Members Other:: lives alone Housing: House Are you a primary inpatient care manager rn to a significant other at home: No Do you presently have visiting nurse or other home services: 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) Alcohol intake: never Comment: IV infiltrated Patient Tobacco Use Status: Never used Tobacco Second Hand Smoke Exposure: No Advance Directives Date on File: 07/24/23 service: No Current occupational status: disabled Sexual orientation: Straight/Heterosexual Gender identity: Female Physical Exam ED Vital Signs: Vital Signs - 24 hr 02/11/25 18:42 02/11/25 22:48 02/12/25 00:40 Temperature 98.3 F 98 F 98.2 F Pulse Rate 68 64 80 Respiratory Rate 18 16 18 Blood Pressure 119/71 132/76 139/85 Pulse Oximetry 97 97 97 Oxygen Delivery Method Room Air Room Air Room Air BMI result Body Mass Index 25.7 vital signs stable General: Well appearing, in no acute distress. Skin: Warm, dry, intact. No rashes or lesions. Head: Normocephalic, atraumatic. EENT: Hearing is intact b/l. Conjunctiva clear. PERRLA. EOM intact. Moist mucous membranes. Cardiac: Chest wall symmetric. RRR Lungs: Normal respiratory effort without accessory muscle use Abdomen: Soft, mildly distended, nontender to palpation, no rebound or guarding, active bs. Back: No midline spinous or paraspinal tenderness. No step off deformity. Ext: +mild swelling noted to dorsum of right foot with assoc erythema, warm, ttp, no palpable fluctuance, no pointing, no overlying open wounds. able to move all toes and right ankle. no calf tenderness. Neuro: AOx3. Normal speech. Ambulating with steady gait. Course Course Course Narrative: cbc without leukocytosis or left shift. microcytic anemia, chronic when compared to priors and above transfusion threshold. chemistry without acute electrolyte abnormality requiring intervention. renal and liver function around baseline. UA without infection. KUB showing moderate to severe increase in stool quantity. ct a/p redemonstrates constipation. will start patient on bowel regimen. Medications Administered Discontinued Medications Generic Name Dose Route Start Last Admin Trade Name Freq PRN Reason Stop Dose Admin Diatrizoate Meglum/Diatrizoate Sod 30 ml 02/11/25 22:02 02/11/25 22:02 Diatrizoate Meglumine, Sodium 30 Ml Solution PO 02/11/25 22:03 30 ml ONCE ONE Administration Iohexol 100 ml 02/11/25 22:20 02/11/25 22:20 Iohexol 350 Mg/Ml 100 Ml Infus..Btl IV 02/11/25 22:21 100 ml ONCE ONE Administration Ketorolac Tromethamine 30 mg 02/11/25 19:26 02/11/25 19:33 Ketorolac Tromethamine 30 Mg/Ml Vial IM 02/11/25 19:27 30 mg ONCE ONE Administration Sodium Biphosphate/Sodium Phosphate 133 ml 02/11/25 23:56 02/12/25 00:28 Sodium Phosphate,[place]-Dibasic 133 Ml Enema WA 02/11/25 23:57 133 ml ONCE ONE Administration Medical Decision Making Medical Decision Making [facility] Narrative: 64 year old female with pmhx significant for asthma, DM, chronic constipation, MDD, chronic pain syndrome presents to the ED today via EMS for evaluation of bilateral foot pain x1 week. vital signs stable. afebrile. she is well appearing and in NAD. Plan for labs, imaging and re-evaluation. Differential Diagnosis Differential Diagnoses: The differential diagnosis associated with the presentation includes as above. Admission/Observation not indicated Lab Data [facility] Lab Attestation statement: I reviewed the patient's lab results. As above 02/11/25 18:59 02/11/25 18:59 Labs: Lab Results 02/11/25 02/11/25 Range/Units 18:59 22:50 WBC 8.1 (4.8-10.8) X10*3/uL RBC 4.24 (4.20-5.50) X10*6/uL Hgb 10.2 L (12.0-16.0) g/dl Hct 31.9 L (37.0-47.0) % MCV 75.2 L (80.0-98.0) fL MCH 24.1 L (27.0-33.0) pg MCHC 32.0 (31.0-35.0) g/dl RDW 19.0 H (11.0-16.0) % Plt Count 224 (160-400) X10*3/uL MPV 10.8 (9.4-12.3) fL Immature Gran % (Auto) 0.5 H (0.0-0.4) % Neut % (Auto) 65.7 (45-73) % Lymph % (Auto) 24.8 (20-40) % [place] % (Auto) 7.3 (2-11) % Eos % (Auto) 1.5 (0-4) % Baso % (Auto) 0.2 (0-2) % Lymph # (Auto) 2.0 (1.2-4.9) X10*3/uL [place] # (Auto) 0.6 (0.1-1.2) X10*3/uL Eos # (Auto) 0.1 (0.0-0.4) X10*3/uL Baso # (Auto) 0.0 (0.0-0.2) X10*3/uL Abs Immat Gran (auto) 0.04 H (0.00-0.03) X10*3/uL Absolute Neuts (auto) 5.3 (2.0-8.3) x10*3/uL Absolute Nucleated RBC 0.000 (0.0-0.012) X10*3/uL Nucleated RBC % (auto) 0.0 (0.0-0.2) /100WBC Sodium 141 (135-145) mmol/L Potassium 3.9 (3.3-5.1) mmol/L Chloride 109 H (96-108) mmol/L Carbon Dioxide 24 (22-29) mmol/L Anion Gap 12 (12-20) BUN 20 H (9-16) mg/dL Creatinine 1.02 (0.5-1.4) mg/dL Estim Creat Clear Calc 54.1 Estimated GFR 55 Random Glucose 87 (60-115) mg/dL Calcium 8.5 D (8.4-10.2) mg/dL Total Bilirubin 0.1 (0.0-1.0) mg/dL AST 21 (5-31) U/L ALT 10 (0-31) U/L Alkaline Phosphatase 75 (39-117) U/L Total Protein 6.6 (6.5-8.0) g/dL Albumin 3.9 (3.5-5.0) g/dL Urine Color Yellow Urine Appearance Clear Urine pH 5.0 (5.0-9.0) Ur Specific [place] 1.020 (1.005-1.025) Urine Protein Negative (Neg-Trace) mg/dL Urine Glucose (UA) Negative (Negative) mg/dL Urine Ketones Negative (Negative) mg/dL Urine Blood Negative (Negative) Urine Nitrite Negative (Negative) Ur Leukocyte Esterase Negative (Negative) Urine RBC 0-2 (0-2) /HPF Urine WBC 0-5 (0-5) /HPF Ur Squamous Epith Cells 0-2 (0-2) /HPF Urine Bacteria None Seen (None Seen) Hyaline Casts 0-2 (0-2) /LPF Independent Interpretation I performed an independent interpretation of an: Plain X-Ray Interpretation: kub showing constipation ct a/p without bowel obstruction Radiology Impression Discussion of test interpretation with radiology: I have reviewed the radiologist's reading. Radiologist Impression: Procedure(s): XR KUB Accession Number(s): [id number] cc: Elizabeth Dunn MD; Perla Turner~ Reason for Exam: constipation CLINICAL HISTORY: constipation Abdominal radiographs Comparison: CT/REG/WA/SR - CT ABDOMEN PELVIS W IV CON - 10/29/22 18:48 EDT Findings: There is a nonobstructive bowel gas pattern. Stool quantity is moderate to severely increased. Postsurgical change in the left upper quadrant. No pneumoperitoneum or pneumatosis. Clips in the pelvis. Posterior fusion at L5/S1 with an interbody disc spacer. No acute osseous or soft tissue abnormality. Impression: Moderate to severe increase in stool quantity is consistent with the given history of constipation. This document has been electronically signed by: Leanne Becerra MD on 02/11/2025 19:34:19 Procedure(s): CT abdomen pelvis w IV con Accession Number(s): [id number] cc: Elizabeth Dunn MD; Perla Turner~ Report Number: [id number]: Total DLP = 0.00 mGy-cm Reason for Exam: severe constipation SCAN AT 2200 *no iv 2204* CLINICAL HISTORY: severe constipation SCAN AT 2200 *no iv 2204* CT abdomen and pelvis with contrast Comparison: 10/29/2022 Findings: Lung bases are clear. No acute bony abnormalities. L5-S1 posterior fusion hardware intact. Small hiatal hernia. Gastric bypass. Liver and spleen within normal limits. Pancreas and adrenal glands unremarkable. Gallbladder is within normal limits. No significant focal renal abnormalities. No renal stones or hydronephrosis. Abdominal aorta is normal in caliber. No free fluid or adenopathy in the pelvis. No diverticulitis. Appendix unremarkable. Large amount of stool throughout colon. No significant bowel distention. Hysterectomy. No adnexal abnormality. Impression: Large amount of stool throughout colon Otherwise unremarkable This document has been electronically signed by: Estuardo Rodriguez MD on 02/11/2025 23:22:49 External Record Review External record reviewed: Inpatient record Social Determinants Patient?s care significantly limited by Social Determinants of Health including: Other Social Determinant of Health Critical Care Time Critical Care Time Critical Care Time: No Discharge Plan Discharge Clinical Impression: Constipation Patient Disposition: Home, Self-Care Instructions: Constipation (ED), High Fiber Diet (ED) Additional Instructions: Your blood work today is reassuring. Your urine does not demonstrate infection. We bladder scanned you and you are not retaining any urine. The x-ray and CT scan of your abdomen shows that you are severely constipated. There is no evidence of obstruction. You were treated with an enema in the ED today with a small bowel movement. I am starting you on a bowel regimen of MiraLax and Colace. Please take these as prescribed regularly to move your bowels. Keep your follow up appointment with your primary care provider on Friday. Continue your gabapentin and Toradol as prescribed. Return with any new or worsening symptoms. In the case of an emergency call 911. Prescriptions: New polyethylene glycol 3350 [Miralax] 17 gram powder in packet 17 g PO DAILY Qty: 30 0RF docusate sodium [Colace] 100 mg capsule 100 mg PO DAILY Qty: 30 0RF No Action clonazepam 1 mg tablet 1 mg PO BID 30 Days Qty: 60 0RF albuterol sulfate 90 mcg/actuation HFA aerosol inhaler 1 inh inhalation QID PRN (Reason: shortness of breath or wheezing) Qty: 6.7 0RF gabapentin 600 mg tablet 600 mg PO BEDTIME Qty: 30 0RF hydrochlorothiazide 50 mg tablet 50 mg PO DAILY Qty: 30 0RF polyethylene glycol 3350 17 gram powder in packet 17 g PO DAILY Qty: 30 0RF sennosides-docusate sodium [Senna Plus] 8.6-50 mg Tablet 2 tab PO BID Qty: 120 0RF metformin 500 mg Tablet Extended Release 24 Hr 500 mg PO BIDWM Qty: 60 0RF lidocaine 5 % adhesive patch,medicated 1 patch topical DAILY Qty: 30 0RF Rx Instructions: leave on most painful area for up to 12 hrs ketorolac 10 mg tablet 10 mg PO Q8H 3 Days Qty: 9 0RF lidocaine [Lidoderm] 5 % adhesive patch,medicated 1 patch topical DAILY Qty: 30 0RF Rx Instructions: leave on most painful area for up to 12 hrs doxycycline hyclate 100 mg capsule 100 mg PO BID Qty: 13 0RF ketorolac 10 mg tablet 10 mg PO Q6H PRN (Reason: pain) Qty: 20 0RF Rx Instructions: maximum total duration of 5 days from all oral, intranasal, or parenteral formulations. Patient received an intramuscular dose of Toradol here in the emergency room. Wegovy 0.25 mg/0.5 mL pen injector 0.25 mg subcut QWEEK gabapentin 300 mg capsule 300 mg PO BID oxycodone 5 mg tablet 5 mg PO Q8H PRN (Reason: pain) 10 Days Qty: 30 0RF Rx Instructions: Partial Fill upon patient request. naloxone [Narcan] 4 mg/actuation spray,non-aerosol 4 mg intranasal Q2M PRN (Reason: opioid overdose) Qty: 2 0RF Rx Instructions: spray 1 dose into ONE nostril; alternate nostrils w each dose until help arrives methocarbamol 750 mg tablet 750 mg PO TID Qty: 30 0RF acetaminophen 500 mg capsule 1,000 mg PO TID PRN (Reason: pain) Qty: 90 0RF aripiprazole 10 mg tablet 10 mg PO DAILY venlafaxine 150 mg capsule,extended release 24hr 300 mg PO QAM trazodone 100 mg tablet 300 mg PO BEDTIME ferrous sulfate 325 mg (65 mg iron) tablet,delayed release (DR/EC) 325 mg PO DAILY Referrals: Elizabeth Dunn MD [Primary Care Provider, Internal Medicine] Interventions: ED Discharge Assessment Last Done: 02/12/25 02:31 Discharge Date/Time: 02/12/25 02:33 Print Language: Tajik
[2025-02-11 19:05] LABS: MANUAL DIFF FLAG NO
[2025-02-11 19:09] LABS: Hematocrit 31.9 % (37.0-47.0); Hemoglobin 10.2 g/dl (12.0-16.0); Imm Gran Abs Auto 0.04 X10*3/uL (0.00-0.03); Imm Gran Pct Auto 0.5 % (0.0-0.4); Lymphocytes Absolute Auto 2.0 X10*3/uL (1.2-4.9); Mean Corpuscular HGB Conc 32.0 g/dl (31.0-35.0); Mean Corpuscular Hemoglobin 24.1 pg (27.0-33.0); Mean Corpuscular Volume 75.2 fL (80.0-98.0); NRBC Abs Auto 0.000 X10*3/uL (0.0-0.012); NRBC Pct Auto 0.0 /100WBC (0.0-0.2); Platelet Count 224 X10*3/uL (160-400); Red Blood Count 4.24 X10*6/uL (4.20-5.50); White Blood Count 8.1 X10*3/uL (4.8-10.8)
--- OUTSIDE RECORDS SUMMARY | 2025-02-11 19:25 | XMS_ITS | Encounter Summary ---
Author Organization [employer] Address [address] [facility] [address] [place] [address] Care Team Providers Care Milieu Technician Name Role Phone Elizabeth Dunn MD Primary Care Provide r Kia Bowden RN Unavailable [phone] Manuela Melendez Unavailable Reason for Visit * Reason Onset Date Comments Nurse Triage 11/26/2023 Encounter Details Date Type Department Care Team ([facility] st Contact Info) Description 11/26/2023 Telephone [facility] [address] [place] [address] Elizabeth Dunn MD [address] [place], [place] [phone] Nurse Triage Social History Tobacco Use Types [...] to PT. Per pt has not called air conditioning specialist to notify of increased pain with [...] Care Team (Late st Contact Info) Description 2025 3:15 PM EDT Office Visit [facility] [address] [place] [address] Elizabeth Dunn MD [address] [place] [address] 06/07/2025 2:30 PM EST Office Visit [facility] OPTOMETRY [address] [place] [address] Dawson, Mulu, OD [address] [place] [address] documented as of this encounter Visit Diagnoses Not on filedocumented in this encounter Additional Health Concerns Assessment Noted Time PHQ-9 Depression Total Score: 0 08/20/19 24 2:32 PM EDT documented as of this encounter Care Teams Milieu Technician Relationship Specialty Start Date End Date Elizabeth Dunn MD [address] [place] [address] PCP - General Family Medicine 03/17/18 Kai Bowden, RN [address] [place] [id number] Registered Nurse Family Medicine 02/08/25 Manuela Melendez 02/08/25 Thao Barnhart Night CoordinatorPaper Roll Machine Operator 02/07/23 documented as of this encounter
--- OUTSIDE RECORDS SUMMARY | 2025-02-11 19:25 | XMS_ITS | Encounter Summary ---
Author Organization [employer] Address [address] [facility] [address] [place] [address] Care Team Providers Care Human Resources District Manager Name Role Phone Elizabeth Dunn MD Primary Care Provide r Kai Bowden RN Unavailable [phone] Manuela Melendez Unavailable Reason for Visit * Reason Comments Care Coordination C3CM- chart review Encounter Details Date Type Department Care Team (Latest Contact Info) Description 02/08/2025 Patient Outreach [facility] [address] [place] [address] Elizabeth Dunn MD [address] [place] [address] Care Coordination (C3CM- chart review) Social History Tobacco Use Types Packs/Day Years [...] AM EDT documented as of this encounter Progress Notes * Kai Bowden RN - 02/08/2025 7:58 AM EDT CM Kai Bowden RN, performed chart review, in anticipation of initial assessment with patient, aspatient has stratified for C3 Adult Complex Care through the ADT feed. History significant for microcytic anemia, chronic idiopathic constipation, chronic left-sided low back pain with left-sided scia albert, disorder of joint of spine, hypertension, depression, osteoarthritis of right glenohumeral joint, venous insufficiency, fibromyalgia, T2DM, chronic pain, asthma, migraine, insomnia, obesity. Specialists include [facility] [place] [facility], [facility] podiatry, [facility] neurology, [facility], vascular surgery, [facility] pharmacy [facility], [facility] optometry. ED visits within the last 12 months include [facility] [place]/07[place], [facility] [place], [facility] [place]/13/[place], [facility] [place]/01/[place]. Last appointment in PCP office on 02/02/25. No future appointment scheduled with PCP at this time. documented in this encounter Plan of Treatment Upcoming Encounters Date Type Department Care Team (Late st Contact Info) Description 2025 3:15 PM EDT Office Visit [facility] MED[facility] [address] [place] [address] Elizabeth Dunn MD [address] [place] [address] 06/07/2025 2:30 PM EST Office Visit [facility] OPTOMETRY [address] [place], [place] [phone] Mulu Osman, OD [address] [place] [address] documented as of this encounter Visit Diagnoses Not on filedocumented in this encounter Additional Health Concerns Assessment Noted Time PHQ-9 Depression Total Score: 0 02/03/20 2:44 PM EDT documented as of this encounter Care Teams Human Resources District Manager Relationship Specialty Start Date End Date Elizabeth Dunn MD [address] [place] [address] PCP - General Family Medicine 03/17/18 Kai Bowden, RN [address] [place] [id number] Registered Nurse Family Medicine 02/08/25 Manuela Melendez 02/08/25 Thao Barnhart Commercial Census TakerStorage Brine Worker 02/07/23 documented as of this encounter
--- OUTSIDE RECORDS SUMMARY | 2025-02-11 19:25 | XMS_ITS | Clinical Summary ---
Author Organization [employer] Address [address] [facility] [address] [place] [address] Care Team Providers Care Trimmer Meat Name Role Phone Elizabeth Dunn MD Primary Care Provide r Kai Bowden RN Unavailable [phone] Manuela Melendez Unavailable Allergies Active Allergy Reactions Criticality Noted Date [...] TODOS LOS D EN LA MA JESSICA 023 Active hydroCHLOROthiaz uzair (HYDRODiuril) 50 [...] PATCH WITHIN 12 HOURS OR DIRECTED BY . 30 patch 1 Active pregabalin (Lyrica) 225 MG capsuleIndicatio ns:Chronic bilateral low back pain with left-sided sciatica TAKE 1 CAPSULE BY MOUTH TWICE A DAY 60 capsule 2 025 Active ferrous sulfate 325 (65 Fe) MG EC tabletIndication s:Microcytic anemia TAKE 1 TABLET BY MOUTH EVERY DAY. DO NOT CRUSH, CHEW OR SPLIT. 90 tablet 025 Active ARIPiprazole (Abilify) 2 MG tablet Take 1 tablet by mouth Once per day. 025 Active naloxone (Narcan) 4 mg/0.1 mL nasal spray PLEASE SEE ATTACHED FOR DETAILED DIRECTIONS Active traZODone (Desyrel) 100 MG tablet take 3 tablets by mouth every day at bedtime Active Diclofenac Sodium 1 % gelIndications:F ibromyalgia Apply on affected area twice a day 350 g 3 025 Active Tirzepatide (Mounjaro) 10 MG/0.5ML solution auto-injectorInd ications:Type 2 diabetes mellitus without complication, without long-term current use of insulin ([facility]) Inject 10 mg under the skin 1 (one) time per week. 2 mL 025 Active FREESTYLE LITE test stripIndications :Type 2 diabetes mellitus without complication, without long-term current use of insulin ([facility]) Use to test blood sugar 1 times daily 100 each 12 025 2025 Active Lancets miscIndications: Type 2 diabetes mellitus without complication, without long-term current use of insulin ([facility]) Use to test blood sugar 1 times daily 100 each 1 025 Active Alcohol Swabs 70 % padsIndications: Type 2 diabetes mellitus without complication, without long-term current use of insulin ([facility]) Use to test blood sugar 1 times daily 100 each 1 025 Active Blood Glucose Monitoring Suppl (FreeStyle Lite) w/Device kitIndications:T ype 2 diabetes mellitus without complication, without long-term current use of insulin ([facility]) USE TO TEST BLOOD SUGAR 1 TIMES [...] as directed by . 30 patch 1 024 2024 Discontinued(T herapy [...] bedtime. 2024 Discontinued Blood Glucose Monitoring Suppl (EvverStyle Cuttyhunk Lite) w/Device kitIndications:T ype 2 diabetes mellitus [...] left foot, she is being manage by pain/meeting specialist (medications prescribed by specialist only) Chronic bilateral low back pain with left-sided sciatica 08/20/2023 Assessment & Plan (01/07/2024 2:12 PM EDT): I will increase gabapentin to 600mg TID and refer her back to pain management Pelvic pain 08/20/2023 Assessment & Plan (08/21/2023 12:20 PM EDT): BUILDING CUSTODIAN referral as per patient's request Preop examination [...] Acute nontraumatic kidney injury 01/17/2021 Benzodiazepine dependence ([facility]/HCC) 10/14/2017 Chronic idiopathic constipation 04/08/2017 Chronic left-sided [...] Diagnosed Date Resolved Date Continuous opioid dependence ([facility]) 04/08/2017 02/02/2025 Encounters Date Type Department Care Team Description 02/08/2025 Telephone [facility] [address] [place] [phone] Elizabeth Dunn MD ER Follow-up 02/08/2025 Patient Outreach [address] [address] Elizabeth Dunn MD Care Coordination ([facility]/W Manuela Melendez, initial assessment scheduled ) 02/08/2025 Patient Outreach [address] [address] Elizabeth Dunn MD Care Coordination ([facility]/CHW Manuela Melendez, Chart review ) 02/08/[address] [facility] [address] [place] [address] Elizabeth Dunn MD Care Coordination ([facility]3- chart review) 02/08/2025 Patient Outreach [address] [address] Elizabeth Dunn MD 02/07/2025 Orders Only GENERIC EXTERNAL DATA DEPARTMENT Provider, Generic External Data 02/02/2025 3:00 PM EDT Telemedicine [address] [address] Elizabeth Dunn MD Diabetic mononeuropathy simplex (CMS/HCC) (Primary Dx); 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order, without psychotic features (CMS/HCC); Mild intermittent asthma, unspecified whether complicated; Continuous opioid dependence (CMS/HCC); Fibromyalgia; Dietary counseling; Exercise counseling; Type 2 diabetes mellitus without complication, without long-term current use of insulin (CMS/HCC) 02/02/2025 Travel 02/01/[address] [address] Elizabeth Dunn MD 01/26/2025 3:30 PM EDT Office Visit [address] [address] Elizabeth Dunn MD Type 2 diabetes mellitus without complication, without long-term current use of insulin (CMS/HCC) (Primary Dx); Fibromyalgia; Acute pain of right shoulder; Class 1 obesity due to excess calories with serious comorbidity and body mass index (BMI) of 34.0 to 34.9 in adult 01/26/[address] [address] Elizabeth Dunn MD Type 2 diabetes mellitus without complication, without long-term current use of insulin (CMS/HCC) 01/26/2025 Travel 01/25/[address] [address] Elizabeth Dunn MD chart prep 01/21/2025 Travel 01/20/2025 Telephone [facility] [address] [place] [address] Elizabeth Dunn MD appt 01/15/2025 Refill [facility] [address] [place] [address] Vanna Chen MD Microcytic anemia 01/14/2025 Telephone [facility] [address] [place] [address] Elizabeth Dunn MD Prior Authorization ( PA: Trish) 01/12/2025 Orders Only [facility] [address] [place] [address] Elizabeth Dunn MD 01/12/2025 Refill [facility] [address] [place] [address] Elizabeth Dunn MD Class 2 severe obesity with serious comorbidity and body mass index (BMI) of 35.0 to 35.9 in adult, unspecified obesity type (CMS/HCC) 01/11/2025 Refill [facility] [address] [place] [address] Elizabeth Dunn MD Chronic midline low back pain with left-sided sciatica 01/04/2025 10:20 AM EDT Office Visit [facility] [address] [place] [address] [phone] Dawson, Mulu, OD Type 2 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 (CMS/HCC) (Primary Dx) 01/04/2025 Travel 12/19/2024 Refill [facility] [address] [place] [address] Elizabeth Dunn MD Chronic bilateral low back pain with left-sided sciatica 12/15/2024 Orders Only [facility] [address] [place] [address] Elizabeth Dunn MD Class 2 severe obesity with serious comorbidity and body mass index (BMI) of 35.0 to 35.9 in adult, unspecified obesity type (CMS/HCC) (Primary Dx) 12/15/2024 Telephone [facility] [address] [facility] [address] Elizabeth Dunn MD Med Refill 12/15/2024 Refill [facility] MEDIC[facility] [address] [place] [address] Elizabeth Dunn MD 12/08/2024 Refill [facility] [address] [place] [address] Elizabeth Dunn MD Chronic bilateral low back pain with left-sided sciatica 12/07/2024 Telephone [facility] [address] [place] [address] Elizabeth Dunn MD No Show 12/07/2024 Telephone [facility] [address] [place] [address] Elizabeth Dunn MD Chart Prep 12/06/2024 Refill [facility] [address] [place] [address] Elizabeth Dunn MD Chronic midline low back pain with left-sided sciatica 11/17/2024 Telephone [facility] [address] [place] [address] Elizabeth Dunn MD Medication Question 11/17/2024 Refill [facility] [address] [place] [address] Elizabeth Dunn MD from Last 3 Months [...] your housing situation today? I have katia declan 02/02/[address] you li [...] Description 2025 3:15 PM EDT Office Visit [facility] [address] [place] [address] Elizabeth Dunn MD [address] [place] [address] 06/07/2025 2:30 PM EST Office Visit [facility] [address] [place] [address] Mulu Osman, OD [address] [place] [address] Health Maintenance Due Date Last Done Comments [...] 04/21/2023, Additional history exists Mammogram 02/09/2025 02/10/2024, 05/2023, 05/10/2022, Additional history exists Diabetes: Hemoglobin A1C [...] Procedure Name Priority Date/Time Associated Diagnosis Comments VASC US LOWER EXTREMITY VENOUS DUPLEX BILATERAL Routine 02/07/2025 9:39 PM EDT SED RATE BY MODIFIED WESTERGREN Routine 02/07/2025 8:52 PM EDT NT-PROBNP Routine 02/07/2025 8:52 PM EDT CBC WITH AUTO DIFFERENTIAL Routine 02/07/2025 8:52 PM EDT C-REACTIVE PROTEIN Routine 02/07/2025 8: 52 PM EDT MAGNESIUM Routine 02/07/2025 8:52 PM EDT COMPREHENSIVE METABOLIC PANEL Routine 02/07/2025 8:52 PM EDT POCT GLUCOSE Routine 01/26/2025 3:42 PM EDT Type 2 diabetes mellitus without complication, without long-term current use of insulin (CMS/HCC) POCT GLYCATED HEMOGLOBIN, TOTAL Routine 01/26/2025 3:42 [...] Recently Relevant to Health Maintenance Results * [facility] US Lower Extremity Venous Duplex Bilateral (02/07/2025 9:39 PM EDT) 02/07/2025 9:39 PM EDT Narrative [facility] - 02/07/2025 9:41 PM EDT [address] [address] Ultrasound Report Signed Patient: Lelo Plata MR# : [id number] : 1960 Acct:[id number] Age/Sex: 64 / F ADM Date: 02/07/25 Loc: HO.ED Attending Dr: Ordering Physician: Kaitlynn Wang Date of Service: 02/07/25 Procedure(s): US venous duplex LE Accession Number(s): [id number] cc: Elizabeth Dunn MD; Kaitlynn Wang Reason for Exam: pain swelling LEs CLINICAL HISTORY: pain swelling LEs Venous duplex ultrasound bilateral lower extremity Comparison: US/SR - US VENOUS DUPLEX LE LT - 11/12/23 18:09 EDT Findings: The visualized deep veins are fully compressible with normal Doppler color flow and spectral tracings. No popliteal cyst. IMPRESSION: 1. Negative for bilateral lower extremity deep vein thrombosis. This document has been electronically signed by: Tobin Ivy MD on 02/07/2025 21:39:34 Dictated By: Tobin Ivy MD Signed By: <Electronically signed by Tobin Ivy MD in OV> 02/07/252139 DD/ 38 TD/TT: 02/07/252138 Public Works Commissioner: Procedure Note Donotuseinterpreter, Image - 02/07/[address] [address] Ultrasound Report Signed Patient: Lelo Plata RMR# : [id number] : 1960cct:[id number] Age/Sex: 64 / FADM Date: 02/07/25 Loc: HO.ED Attending Dr: Ordering Physician: Kaitlynn Wang Date of Service: 02/07/25 Procedure(s): US venous duplex LE BI Accession Number(s): [id number] cc: Elizabeth Dunn MD; Kaitlynn Wang Reason for Exam: pain swelling LEs CLINICAL HISTORY: pain swelling LEs Venous duplex ultrasound bilateral lower extremity Comparison: US/SR - US VENOUS DUPLEX LE LT - 11/12/23 18:09 EDT Findings: The visualized deep veins are fully compressible with normal Doppler color flow and spectral tracings. No popliteal cyst. IMPRESSION: 1. Negative for bilateral lower extremity deep vein thrombosis. This document has been electronically signed by: Tobin Ivy MD on 02/07/2025 21:39:34 Dictated By: Tobin Ivy MD Signed By: <Electronically signed by Tobin Ivy MD in OV> 02/07/252139 DD/ 38 TD/TT: 02/07/252138 Public Works Commissioner: us [facility] External Provider CV VASC ULAR PROCEDURES Final Result [facility] [address] [place] [phone] * NT-proBNP (02/07/2025 8:52 PM EDT) NT-proBNP 36.0 <300 pg/mL [facility] Comment:Reference Range:Age Group (years) NT-proBNP (pg/ml) InterpretationAll <300 Negative: HF unlikelyFor patients presenting to the ED with clinical suspicion ofnew onset or worsening HF, see below:18 to <50 >299.9 to <450.0 Grayzone: [id number] to 75 >299.9 to <900.0 other causes of>75 >299.9 to <1800.0 NT-proBNP [id number] to <50 >449.9 Positive: HF [id number] >899.9>75 >1799.9Note: Elevated NT-proBNP levels should be interpreted inthe context of other clinical information. 02/07/2025 8:52 PM EDT 02/07/2025 8:57 PM EDT us Generic External Data Provider LAB BLOOD ORDERAB LES Final Result [facility] [address] [place] [phone] * (ABNORMAL) CBC auto differential (02/07/2025 8:52 PM EDT) White Blood Count 9.9 4.8 - 10.8 X10*3/uL [facility] Red Blood Count 4.35 4.20 - 5.50 X10*6/uL [facility] Hemoglobin 10.4(L) 12.0 - 16.0 g/dl [facility] Hematocrit 32.5(L) 37.0 - 47.0 % [facility] Mean Corpuscular Volume 74.7(L) 80.0 - 98.0 fL [facility] Mean Corpuscular Hemoglobin 23.9(L) 27.0 - 33.0 pg [facility] Mean Corpuscular HGB Conc 32.0 31.0 - 35.0 g/dl [facility] Red Cell Distribution Width 18.5(H) 11.0 - 16.0 % [facility] Platelet Count 224 160 - 400 X10*3/uL [facility] Mean Platelet Volume 11.2 9.4 - 12.3 fL [facility] Neutrophils Percent Auto 63.2 45 - 73 % [facility] Imm Gran Pct Auto 0.5(H) 0.0 - 0.4 % [facility] Lymphocytes Percent Auto 27.0 20 - 40 % [facility] Monocytes Percent Auto 7.7 2 - 11 % [facility] Eosinophils Percent Auto 1.4 0 - 4 % [facility] Basophils Percent Auto 0.2 0 - 2 % [facility] NRBC Pct Auto 0.0 0.0 - 0.2 /100WBC [facility] Neutrophils Absolute Auto 6.2 2.0 - 8.3 x10*3/uL [facility] Imm Gran Abs Auto 0.05(H) 0.00 - 0.03 X10*3/uL [facility] Lymphocytes Absolute Auto 2.7 1.2 - 4.9 X10*3/uL [facility] Monocytes Absolute Auto 0.8 0.1 - 1.2 X10*3/uL [facility] Eosinophils Absolute Auto 0.1 0.0 - 0.4 X10*3/uL [facility] Basophils Absolute Auto 0.0 0.0 - 0.2 X10*3/uL [facility] NRBC Abs Auto 0.000 0.0 - 0.012 X10*3/uL [facility] 02/07/2025 8:52 PM EDT 02/07/2025 8:57 PM EDT us Generic External Data Provider LAB BLOOD ORDERAB LES Final Result Performing Organization Address [facility]/ZIP Co de Phone Number [facility] [address] [place] [phone] * (ABNORMAL) Sed Rate by Modified Caleren (02/07/2025 8:52 PM EDT) Erythrocyte Sedimentation Rate 25(H) 0 - 20 MM/HR [facility] Comment:Patients with polycy themia and many hemoglobin abnormalitiesmay have depressed sed rates whereas patients with anemiamay have elevated sed rates. 02/07/2025 8:52 PM EDT 02/07/2025 8:57 PM EDT us Generic External Data Provider LAB BLOOD ORDERAB LES Final Result [facility] [address] [place] [phone] * (ABNORMAL) C-reactive Protein (02/07/2025 8:52 PM EDT) Pathologist [facility] C Reactive Protein 1.09(H) < or = 0.50 mg/dL [facility] 02/07/2025 8:52 PM EDT 02/07/2025 8:57 PM EDT Generic External Data Provider LAB BLOOD ORDERAB LES Final Result Performing Organization Address [facility] Co de Phone Number [facility] [address] [place] [phone] * Magnesium (02/07/2025 8:52 PM EDT) [facility] Magnesium 2.1 1.6 - 2.6 mg/dL [facility] 02/07/2025 8:52 PM EDT 02/07/2025 8:57 PM EDT Generic External Data Provider LAB BLOOD ORDERAB LES Final Result Performing Organization Address [facility] de Phone Number [facility] [address] [place] [phone] * Comprehensive Metabolic Panel (02/07/2025 8:52 PM EDT) [facility] Sodium 143 135 - 145 mmol/L [facility] Potassium 4.5 3.3 - 5.1 mmol/L [facility] Chloride 103 96 - 108 mmol/L [facility] Carbon Dioxide 28 22 - 29 mmol/L [facility] Anion Gap 17 12 - 20 [facility] Urea Nitrogen (BUN) 16 9 - 16 mg/dL [facility] Creatinine, Serum 1.06 0.5 - 1.4 mg/dL [facility] Creatinine Clr Calc Pharmacy 62.1 [facility] Comment:Provided height and weight: 165.1 cm,93.44 kg.eGFR (calculated from the MDRD study equation) and eCrCl(calculated from the Cockcroft-Gault equation) are based ondifferent parameters and may not yield comparable results.If eCrCl result is absurd, please check patient'sheight/weight. Estimated Glomerular Filt Rate 53 [facility] Comment:Chronic Kidney Disea se: Estimated GFR < 60 mL/min/1.15a3Qcsbhd Kidney Disease: Estimated GFR < 15 mL/min/1.73m2 Glucose 77 60 - 115 mg/dL [facility] Calcium 9.2 8.4 - 10.2 mg/dL [facility] Bilirubin, Total 0.2 0.0 - 1.0 mg/dL [facility] Aspartate Amino Transferase 19 5 - 31 U/L [facility] Alanine Aminotransferase 8 0 - 31 U/L [facility] Total Protein 7.1 6.5 - 8.0 g/dL [facility] Albumin Level 4.2 3.5 - 5.0 g/dL [facility] Alkaline Phosphatase 72 39 - 117 U/L [facility] 02/07/2025 8:52 PM EDT 02/07/2025 8:57 PM EDT us Generic External Data Provider LAB BLOOD ORDERAB LES Final Result [facility] [address] [place] [phone] * POCT Hgb A1c (01/26/2025 3:42 PM EDT) Hemoglobin A1C 5.6 4.0 - 5.7 % QC Media Lot # [id number] Lot# Expiration Date [id number] Blood 01/26/2025 3:42 PM EDT us Elizabeth Goncalves MD POINT OF CARE TEST EN TER/EDIT ORDERABLES Final Result * POCT Glucose (01/26/2025 3:42 PM EDT) Glucose Blood, POC 92 60 - 200 mg/dL QC Media Lot # [id number] Lot# Expiration Date Blood Capillary blood specimen / Unknown 01/26/2025 3:42 PM EDT Elizabeth Goncalves MD POINT OF CARE TEST EN TER/EDIT ORDERABLES Final Result * BI Mammogram Diagnostic Tomosynthesis Bilateral (02/10/2024 2:00 PM EDT) Anatomical Region Laterality Modality Breast Bilateral Mammography 02/10/2024 2:00 PM EDT Narrative 02/10/2024 5:26 PM EDT [facility] [address] [place] [address] Mammography Report Signed Patient: Lelo Watters MR#: [id number] : 1960 Acct:[id number] Age/Sex: 63 / F ADM Date: 02/10/24 Loc: HO.MAMMO Attending Dr: Elizabeth Goncalves MD Ordering Physician: Elizabeth Dunn MD Results: 1Negative Date of Service: 02/10/24 Follow Up: 1 Year From [facility] Mammogram Procedure(s): MM tomosynthesis diagnostic BI Accession Number(s): [id number] cc: Elizabeth Dunn MD EXAMINATION: MM DIAGNOSTIC [...] 02/10/24 1724 DD/ 1400 TD/TT: 02/10/24 1410 Public Works Commissioner: Procedure Note Donotuseinterpreter, Image - 02/10/2024 [facility] [address] [place] [address] [place] [address] Mammography Report Signed Patient: Lelo Watters RMR#: [id number] : 1960cct:[id number] Age/Sex: 63 / FADM Date: 02/10/24 Loc: SIVANO Attending Dr: Elizabeth Goncalves MD Ordering Physician: Elizabeth Dunn MDResults: 1Negative Date of Service: 10/01/24Follow Up: 1 Year From Orig inal Mammogram Procedure(s): MM tomosynthesis diagnostic BI Accession Number(s): [id number] cc: Elizabeth Dunn MD EXAMINATION: MM DIAGNOSTIC [...] 02/10/24 1724 DD/ 1400 TD/TT: 02/10/24 1410 Public Works Commissioner: us Elizabeth Goncalves MD IMG BI PROCEDURES Patrick wendie Result - Final * Albumin, Random Urine W/Creatinine (01/05/2024 8:25 AM EDT) Creatinine, Urine 223.33 mg/dL [facility] Microalbumin Urine 9.0 mg/L [facility] Microalbum Creatinine Ratio Ur 4.0 <30 ug/mg cr [facility] Comment:Albumin/Creatinine R atio Reference Ranges: Normal: < 30 ug/mg creatinine Microalbuminuria: 30 - 300 ug/mg creatinineClinical Albuminuria: > 300 ug/mg creatinine Urine (Urine, Random) 01/05/2024 8:25 AM EDT 01/05/2024 11:48 AM EDT us Elizabeth Goncalves MD LAB URINE ORDERABLES Final Result [facility] [address] [place] [address] [phone] * (ABNORMAL) Lipid Panel with Reflex to Direct LDL (01/05/2024 8:22 AM EDT) Triglycerides 180(H) <150 mg/dL [facility] Comment:Desirable Triglyceri de: less than 150 mg/dLBorderline High Triglyceride 150-199 mg/dLHigh Triglyceride: 200-499 mg/dLVery High Triglyceride: greater than or equal to 5OO mg/dL Cholesterol 240(H) <200 mg/dL [facility] Comment:Desirable Cholestero l: less than 200 mg/dLBorderline High Cholesterol: 200-239 mg/dLHigh Cholesterol: greater than 239 mg/dL LDL Cholesterol Calculated 138(H) <100 mg/dL [facility] Comment:Desirable LDL: less than 100 mg/dLNear Optimal/Above Optimal LDL: 110- 129 mg/dLBorderline High LDL: 130-159 mg/dLHigh LDL: 160-189 mg/dLVery High LDL: greater than or equal to 190 mg/dL HDL Cholesterol 66 >40 mg/dL [facility] Comment:Desirable HDL: great er than 40 mg/dL Note: This HDL assay may give artificially low results in patients with liver disease. Blood 01/05/2024 8:22 AM EDT 01/05/2024 11:52 AM EDT Elizabeth Goncalves MD LAB BLOOD ORDERABLES Final Result [facility] [address] [place] [phone] [phone] * Hm Colonoscopy (12/10/2022) Historical Provider HEALTH MAINTENANCE Final Result * HEPATITIS C AB W/REFL TO HCV RNA, QN, PCR (10/23/2020 10:08 AM EDT) HEPATITIS C ANTIBODY NON-REACT JOSE NON-REACT JOSE [facility] INDEX 0.01 <1.00 [facility] Comment: HCV antibody was non-reactive. There is no laboratory evidence of HCV infection. In most cases, no further action is required. However, if recent HCV exposure is suspected, a test for HCV RNA (test code 12394) is suggested. For additional information please refer to http://education.Cloudike.Derceto/faq/UKS33e3 (This link is being provided for informational/ educational purposes only.) 10/23/2020 10:0 8 AM EDT Elizabeth Goncalves MD HISTORICAL/NON ORDERA BLE LABS Final Result [facility] [address] * HIV 1/2 ANTIGEN/ANTIBODY,FOURTH GENERATION W/RFL (10/23/2020 10:08 AM EDT) HIV-1/2 ANTIGEN AND ANTIBODIES, 4TH GENERATION W/ REFLEX NON-REACT JOSE NON-REACT JOSE [facility] Comment: HIV-1 antigen and HIV-1/HIV-2 [...] purpose. For additional information please refer to http://education.[employer]/faq/TZJ998 (This link is being provided for informational/ educational purposes only.) The performance of this assay has not been clinically validated in patients less than 2 years old. 10/23/2020 10:0 8 AM EDT Elizabeth Goncalves MD LAB BLOOD ORDERABLES Final Result [facility] [address] from Last 3 Months or Most Recently Relevant to Health Maintenance [place] [address] [address] C3 Care Teams Trimmer Meat Relationship Specialty Start Date End Date Elizabeth Dunn MD [address] [place] [address] PCP - General Family Medicine 03/17/18 Kai Bowden, RN [address] [place] [address] Registered Nurse Family Medicine 02/08/25 Manuela Melendez 02/08/25 Thao Barnhart Continuous Drier OperatorProject Management 02/07/23
--- OUTSIDE RECORDS SUMMARY | 2025-02-11 19:25 | XMS_ITS | Clinical Summary ---
Author Organization [facility], Address [address] [place] [address] Phone Care Team Providers Care Design Assembler Name Role Phone Elizabeth Dunn MD [...] Calculated 126 0 - 160 mg/dL 05/31/2020 [facility] Provider LAB BLOOD ORDERABLES Sandy l Result from Last 3 Months or Most Recently Relevant to Health Maintenance Insurance Medicaid [place] Member Subscriber Plan / Payer (Ef fective 2020-Present) Name:Jose Antonio Rivasda Relation to Subscriber:Self Name:Lelo Rivas Payer ID:Not on file Group ID:Not on file Type:Not on file Address: [address] [place] Care Teams Design Assembler Relationship Specialty Start Date End Date Elizabeth Dunn MD [address] [place] [id number] PCP - General Internal Medicine 11/17/20
--- OUTSIDE RECORDS SUMMARY | 2025-02-11 19:25 | XMS_ITS ---
Author Organization [employer] Address 75 [facility] 7t [place] [address] Care Team Providers Care Metal Cut Off Saw Operator Name Role Phone Elizabeth Dunn MD Primary Care Provide r Kai Bowden RN Unavailable [phone] Manuela Melendez Unavailable CM Complex Status:Outreach In Progress (Enrolling) Start date:02/08/2025 Enrollment reason:ADT Feed Overview ED- Pt went to [facility] ED on 02/07/25. Case Team Name Relationship Phone Kai Bowden RN(Responsible Staff) Registered Asc[employer]ion nguyen [phone] Continued Care and Services Coordination
--- OUTSIDE RECORDS SUMMARY | 2025-02-11 19:25 | XMS_ITS | Encounter Summary ---
Author Organization [employer] Address 75 [facility] 7t h Floor [place] [id number] Care Team Providers Care Vascular Technologist Name Role Phone Elizabeth Dunn MD Primary Care Provide r Kai Bowden RN Unavailable [phone] Manuela Melendez Unavailable Encounter Details Date Type Department Care Team (Late st Contact Info) Description 01/12/[address] [facility] MEDICINE [address] [place] [address] Elizabeth Dunn MD [address] [place] [address] Social History Tobacco Use Types Packs/Day Years [...] Description 2025 3:15 PM EDT Office Visit [facility] [address] [place] [address] Elizabeth Dunn MD [address] [place] [address] 06/07/2025 2:30 PM EST Office Visit [facility] OPTOMETRY [address] [place] [address] Dawson, Mulu, OD [address] [place] [address] documented as of this encounter Visit Diagnoses Not on filedocumented in this encounter Additional Health Concerns Assessment Noted Time PHQ-9 Depression Total Score: 0 08/20/19 24 2:32 PM EDT documented as of this encounter Care Teams Vascular Technologist Relationship Specialty Start Date End Date Elizabeth Dunn MD [address] [place] [address] PCP - General Family Medicine 03/17/18 Kai Bowden, MATT [address] [place] [address] Registered Nurse Family Medicine 02/08/25 Manuela Melendez 02/08/25 Thao Barnhart House Steward/StewardessClinical Laboratory Technologist 02/07/23 documented as of this encounter
--- OUTSIDE RECORDS SUMMARY | 2025-02-11 19:25 | XMS_ITS | Encounter Summary ---
Author Organization [employer] Address 75 [facility] 7t [place] [address] Care Team Providers Care Stylist Apprentice Name Role Phone Elizabeth Dunn MD Primary Care Provide r Kai Bowden RN Unavailable [phone] Manuela Melendez Unavailable Reason for Visit * Reason Onset Date Comments ER Follow-up 02/08/2025 Encounter Details Date Type Department Care Team ([facility] st Contact Info) Description 02/08/2025 Telephone [facility] MEDICINE [address] [place] [address] Elizabeth Dunn MD [address] [place] [address] ER Follow-up Social History Tobacco Use Types Packs/Day Years [...] housing situation today? I have katia sing 02/02/[address] you li [...] Telephone Encounter - Carmen Henley RN - 02/08/2025 12:01 PM EDT Emergency Room Name and Visit Date: [facility] 02/07/25 Discharge Dx: Bilateral leg and foot pain, Peripheral neuropathy, Cellulitis of foot, right Discharge Medications: doxycycline hyclate 100 mg capsule 100 mg PO BID Qty: 13 ketorolac 10 mg tablet 10 mg PO Q6H PRN (Reason: pain) Qty: 20 Follow up Instructions: in 1 week No insole tape stitcher uco needed as this continuity writer speaks Khmer. Call returned to Lelo Rivas to triage below at [phone]. Reports continues to have bilateral foot pain. Pt has not yet started home prescription for antibiotics or pain medication. Pt states was instructed to follow up with PCP re: neuropathy. Pt given appointment next week. Reviewed to complete full course of antibiotics. To return call sooner if symptoms do not improve or new symptoms develop. Pt agrees. Protocol Used: Recent Medical Visit for Illness Follow-up Call (Adult) Protocol-Based Disposition: Home Care Positive Triage Question: * Recent medical visit within 24 hours and symptoms SAME (unchanged) and caller has additional questions triager can answer * All higher-acuity triage questions were negative Care Advice Discussed: * Continue Treatment * Reasons To Call Back - You become worse * Telephone Encounter - Charmaine Machuca - 02/08/2025 11:19 AM EDT Patient calling to report ED visit on : Date: 02/07 Hospital: [facility] Seen for: foot pain Symptomatic Yes Contact pt at [phone] documented in this encounter Plan of Treatment Upcoming Encounters Date Type Department Care Team (Late st Contact Info) Description 2025 3:15 PM EDT Office Visit [facility] MEDICINE [address] [place] [address] Elizabeth Dunn MD [address] [place] [address] 06/07/2025 2:30 PM EST Office Visit [facility] OPTOMETRY [address] [place] [address] Dawson, Mulu, OD [address] [place] [address] documented as of this encounter Visit Diagnoses Not on filedocumented in this encounter Additional Health Concerns Assessment Noted Time PHQ-9 Depression Total Score: 0 02/03/20 25 2:44 PM EDT documented as of this encounter Care Teams Stylist Apprentice Relationship Specialty Start Date End Date Elizabeth Dunn MD [address] [place] [address] PCP - General Family Medicine 03/17/18 Kai Bowden RN [address] [place] [address] Registered Nurse Family Medicine 02/08/25 Manuela Melendez 02/08/25 Thao Barnhart Irrigation EngineerInsurance Adjuster 02/07/23 documented as of this encounter
--- OUTSIDE RECORDS SUMMARY | 2025-02-11 19:25 | XMS_ITS | Encounter Summary ---
Author Organization [employer] Address 75 [facility] 7t [place] [address] Care Team Providers Care Lithographic Platemaker Name Role Phone Elizabeth Dunn MD Primary Care Provide r Kai Bowden RN Unavailable [phone] Manuela Melendez Unavailable Reason for Visit * Reason Comments Care Coordination C3/SARITAW Manuela Hood april, Chart review Encounter Details Date Type Department Care Team (Latest Contact Info) Description 02/08/2025 Patient Outreach [facility] MEDICINE [address] [place] [address] Elizabeth Dunn MD [address] [place] [address] Care Coordination (C3CM/SARITAW Manuela Melendez, Chart review ) Social History Tobacco Use Types Packs/Day Years [...] as of this encounter Progress Notes * Manuela Melendez - 02/08/2025 8:51 AM EDT CHW Manuela Melendez reviewed chart review completed by DARCI Bowden RN: DARCI Bowden RN, performed chart review, in anticipation of initial assessment with patient, as patient has stratified for C3 Adult Complex Care through the ADT feed. History significant for microcytic anemia, chronic idiopathic constipation, chronic left-sided low back pain with left-sided sciatica, disorder of joint of spine, hypertension, depression, osteoarthritis of right glenohumeral joint, venous insufficiency, fibromyalgia, T2DM, chronic pain, asthma, migraine, insomnia, obesity. Specialists include [facility] pain medicine, [facility] podiatry, [facility] neurology, [facility] OBGYN, vascular surgery, [facility] pharmacy MTM, [facility] optometry[facility] ED visits within the last 12 months include [facility] 02/07/25, [facility] 07/01/24, [facility] 05/13/24, [facility] 03/01/24. Last appointment in PCP office on 02/02/25. No future appointment scheduled with PCP at this time. documented in this encounter Plan of Treatment Upcoming Encounters Date Type Department Care Team (Late st Contact Info) Description 2025 3:15 PM EDT Office Visit [facility] MED[facility]INE [address] [place] [address] Elizabeth Dunn MD [address] [place] [address] 06/07/2025 2:30 PM EST Office Visit [facility] OPTOMETRY [address] [place] [address] Dawson, Mulu, OD [address] [place] [address] documented as of this encounter Visit Diagnoses Not on filedocumented in this encounter Additional Health Concerns Assessment Noted Time PHQ-9 Depression Total Score: 0 02/03/20 2:44 PM EDT documented as of this encounter Care Teams Lithographic Platemaker Relationship Specialty Start Date End Date Elizabeth Dunn MD [address] [place] [address] PCP - General Family Medicine 03/17/18 Kai Bowden, RN [address] [place] [address] Registered Nurse Family Medicine 02/08/25 Manuela Melendez 02/08/25 Thao Barnhart Technology Applications EngineerAircraft Engine Mechanic 02/07/23 documented as of this encounter
--- OUTSIDE RECORDS SUMMARY | 2025-02-11 19:25 | XMS_ITS | Encounter Summary ---
Author Organization [employer] Address [address] [place] [address] 7t [place] [address] Care Team Providers Care Protection Analyst Name Role Phone Elizabeth Dunn MD Primary Care Provide r Kai Bowden RN Unavailable [phone] Manuela Melendez Unavailable Reason for Visit * Reason Onset Date Comments Med Refill 12/04/2022 Encounter Details Date Type Department Care Team (Late st Contact Info) Description 12/04/2022 Telephone [facility] MEDICINE [address] [place] [address] Elizabeth Dunn MD [address] [place], [place] [phone] Med Refill Social History Tobacco Use Types [...] Miscellaneous Notes * Telephone Encounter - Sayda Al - 12/04/2022 9:55 AM EDT Tc from pt requesting medication refill on oxyCODONE-acetaminophen (Percocet) 10-325 MG tablet documented in this encounter Plan of Treatment Upcoming Encounters Date Type Department Care Team (Late st Contact Info) Description 2025 3:15 PM EDT Office Visit [facility] MED[facility]INE [address] [place] [address] Elizabeth Dunn MD [address] [place] [address] 06/07/2025 2:30 PM EST Office Visit [facility] OPTOMETRY [address] [place], [place] [phone] Mulu Osman, OD [address] [place] [address] documented as of this encounter Visit Diagnoses Not on filedocumented in this encounter Additional Health Concerns Assessment Noted Time PHQ-9 Depression Total Score: 0 08/03/19 23 3:13 PM EDT documented as of this encounter Care Teams Protection Analyst Relationship Specialty Start Date End Date Elizabeth Dunn MD [address] [place], [place] [phone] PCP - General Family Medicine 03/17/18 Kai Bowden, RN [address] [place] [address] Registered Nurse Family Medicine 02/08/25 Manuela Melendez 02/08/25 Thao Barnhart PsychometristMultiple Drill Operator 02/07/23 documented as of this encounter
--- OUTSIDE RECORDS SUMMARY | 2025-02-11 19:25 | XMS_ITS ---
Author Organization [employer] Address 75 [facility] 7t [place] [address] Care Team Providers Care Chronometer Tester Name Role Phone Elizabeth Dunn MD Primary Care Provide r Kai Bowden RN Unavailable [phone] Manuela Melendez Unavailable CHW Complex Status:Outreach In Progress (Enrolling) Start date:02/08/2025 Enrollment reason:ADT Feed Overview ED- Pt went to [facility] ED on 02/07/25. Case Team Name Relationship Phone Manuela Melendez(Responsible Staff) [phone] Continued Care and Services Coordination
--- OUTSIDE RECORDS SUMMARY | 2025-02-11 19:25 | XMS_ITS | Encounter Summary ---
Author Organization [employer] Address [address] [place] [address] 7t [place] [address] Care Team Providers Care Certified Surgical Tech/First Assistant Name Role Phone Elizabeth Dunn MD Primary Care Provide r Kai Bowden RN Unavailable [phone] Manuela Melendez Unavailable Reason for Visit * Reason Onset Date Comments Med Refill 12/17/2022 Encounter Details Date Type Department Care Team (Late st Contact Info) Description 12/17/2022 Telephone [facility] MEDICINE [address] [place] [address] Elizabeth Dunn MD [address] [place], [place] [phone] Med Refill Social History Tobacco Use Types [...] * Telephone Encounter - Sayda Al - 12/17/2022 1:18 PM EDT Tc from pt requesting medication refill on oxyCODONE-acetaminophen (Percocet) 10-325 MG tablet documented in this encounter Plan of Treatment Upcoming Encounters Date Type Department Care Team (Late st Contact Info) Description 2025 3:15 PM EDT Office Visit [facility] MEDICINE [address] [place] [address] Elizabeth Dunn MD [address] [place] [address] 06/07/2025 2:30 PM EST Office Visit [facility] OPTOMETRY [address] [place], [place] [phone] Mulu Osman, OD [address] [place] [address] documented as of this encounter Visit Diagnoses Not on filedocumented in this encounter Additional Health Concerns Assessment Noted Time PHQ-9 Depression Total Score: 0 08/03/19 23 3:13 PM EDT documented as of this encounter Care Teams Certified Surgical Tech/First Assistant Relationship Specialty Start Date End Date Elizabeth Dunn MD [address] [place] [address] PCP - General Family Medicine 03/17/18 Kai Bowden, RN [address] [place] [address] Registered Nurse Family Medicine 02/08/25 Manuela Melendez 02/08/25 Thao Barnhart Telegraph Service RaterEnvelope Cutter 02/07/23 documented as of this encounter
--- OUTSIDE RECORDS SUMMARY | 2025-02-11 19:25 | XMS_ITS | Clinical Summary ---
Author Organization [address] [facility] Address [address] [place] [address] Phone Care Team Providers Care Non Food Receiving Clerk Name Role Phone Elizabeth Dunn MD [...] sinusitis 03/18/2024 Microcytic anemia 03/18/2024 Benzodiazepine dependence ([facility] V24, [facility] V28) 03/18/2024 Blurring of visual image 03/18/2024 Chronic idiopathic constipation 03/18/2024 T2DM (type 2 diabetes mellitus) (CMS/[facility] V24, CM S/[facility] V28) 03/18/2024 Injury of kidney 03/18/2024 Tinnitus [...] Breast Cancer Screening 1962 Colorectal Cancer Screening: Colonoscopy 1962 Diabetes: Annual Foot Exam 02/15/1972 Diabetes: Annual Retina Eye Exam 02/15/1972 Hepatitis A Vaccines (1 of 2 - Risk 2-dose series) 1981 Cervical Cancer Screening: Pap Smear 1983 Pneumococcal Vaccine: 50+ Years (2 of 2 - PCV) 04/14/2015 04/14/2014, 03/12/2000 RSV Immunization Adult Patients (1 - Risk 60-74 years 1-dose series) 2022 Cholesterol Screening (Lipid Panel) 02/13/2024 Hepatitis C Screening 02/13/2024 Social Influencers [...] topic Insurance MEDICAID - [place] Care Teams Non Food Receiving Clerk Relationship Specialty Start Date End Date Elizabeth Dunn MD [address] [phone] PCP - General Internal Medicine 02/12/24
--- OUTSIDE RECORDS SUMMARY | 2025-02-11 19:25 | XMS_ITS | Encounter Summary ---
Author Organization [employer] Address 75 [facility] 7t [place] [address] Care Team Providers Care Elementary Assistant Teacher Name Role Phone Elizabeth Dunn MD Primary Care Provide r Kai Bowden RN Unavailable [phone] Manuela Melendez Unavailable Encounter Details Date Type Department Care Team (Late st Contact Info) Description 02/08/2025 Patient Outreach [facility] MEDICINE [address] [place] [address] Elizabeth Dunn MD [address] [place] [address] Social History Tobacco Use Types Packs/Day Years [...] is your housing situation today? I have katialino manriquez 02/02/[address] you [...] 2025 3:15 PM EDT Office Visit [facility] MEDICINE [address] [place] [address] Elizabeth Dunn MD [address] [place] [address] 06/07/2025 2:30 PM EST Office Visit [facility] OPTOMETRY [address] [place] [address] Dawson, Mulu, OD [address] [place] [address] documented as of this encounter Visit Diagnoses Not on filedocumented in this encounter Additional Health Concerns Assessment Noted Time PHQ-9 Depression Total Score: 0 02/03/20 25 2:44 PM EDT documented as of this encounter Care Teams Elementary Assistant Teacher Relationship Specialty Start Date End Date Elizabeth Dunn MD [address] [place] [address] PCP - General Family Medicine 03/17/18 Kai Bowden, RN [address] [place] [address] Registered Nurse Family Medicine 02/08/25 Manuela Melendez 02/08/25 Thao Barnhart Email DeveloperMachinist Job Setter 02/07/23 documented as of this encounter
--- OUTSIDE RECORDS SUMMARY | 2025-02-11 19:25 | XMS_ITS | Encounter Summary ---
Author Organization [employer] Address [address] [facility] 7t [place] [address] Care Team Providers Care Paving Block Cutter Name Role Phone Elizabeth Dunn MD Primary Care Provide r Encounter Details Date Type Department Care Team (Late st Contact Info) Description 02/07/2025 Orders Only GENERIC EXTERNAL DATA DEPARTMENT Provider, Generic External Data Social History Tobacco Use Types Packs/Day Years [...] Description 2025 3:15 PM EDT Office Visit [facility] MEDICINE [address] [place] [address] Elizabeth Dunn MD [address] [place] [address] 06/07/2025 2:30 PM EST Office Visit [facility] OPTOMETRY [address] [place] [address] Dawson, Mulu, OD [address] [place] [address] documented as of this encounter Procedures Procedure Name Priority Date/Time Associated Diagnosis Comments [facility] US LOWER EXTREMITY VENOUS DUPLEX BILATERAL Routine 02/07/2025 9:39 PM EDT NT-PROBNP Routine 02/07/2025 8:52 PM EDT CBC WITH AUTO DIFFERENTIAL Routine 02/07/2025 8:52 PM EDT SED RATE BY MODIFIED WESTERGREN Routine 02/07/2025 8:52 PM EDT C-REACTIVE PROTEIN Routine 02/07/2025 8: 52 PM EDT MAGNESIUM Routine 02/07/2025 8:52 PM EDT COMPREHENSIVE METABOLIC PANEL Routine 02/07/2025 8:52 PM EDT documented in this encounter Results * VASC US Lower Extremity Venous Duplex Bilateral (02/07/2025 9:39 PM EDT) 02/07/2025 9:39 PM EDT Narrative [facility] - 02/07/2025 9:41 PM EDT [address] [address] Ultrasound Report Signed Patient: Lelo Plata R MR# : [id number] : 1960 Acct:[id number] Age/Sex: 64 / F ADM Date: 02/07/25 Loc: HO.ED Attending Dr: Ordering Physician: Kaitlynn Wang Date of Service: 02/07/25 Procedure(s): US venous duplex LE Accession Number(s): [id number] cc: Elizabeth Dunn MD; Kaitlynn Wang Reason [...] in OV> 02/07/252139 DD/ 38 TD/TT: 02/07/252138 Information Resources Director: Procedure Note Donotuseinterpreter, Image - 02/07/[address] [address] Ultrasound Report Signed Patient: Lelo Plata RMR# : [id number] : [id number]:[id number] Age/Sex: 64 / FADM Date: 02/07/25 Loc: HO.ED Attending Dr: Ordering Physician: Kaitlynn Wang Date of Service: 02/07/25 Procedure(s): US venous duplex LE BI Accession Number(s): [id number] cc: Elizabeth Dunn MD; Kaitlynn Wang Reason [...] in OV> 02/07/252139 DD/ 38 TD/TT: 02/07/252138 Information Resources Director: [facility] External Provider CV VASC ULAR PROCEDURES Final Result Performing Organization Address [facility]/ZIP Co de Phone Number [facility] [address] [place] [address] [phone] * (ABNORMAL) Sed Rate by Modified Nahunergren (02/07/2025 8:52 PM EDT) [facility] Erythrocyte Sedimentation Rate 25(H) 0 - 20 MM/HR [facility] Comment:Patients with polycy themia and many hemoglobin abnormalitiesmay have depressed sed rates whereas patients with anemiamay have elevated sed rates. 02/07/2025 8:52 PM EDT 02/07/2025 8:57 PM EDT Generic External Data Provider LAB BLOOD ORDERAB LES Final Result Performing Organization Address [facility]/ZIP Co de Phone Number [facility] [address] [place] [phone] * NT-proBNP (02/07/2025 8:52 PM EDT) [facility] NT-proBNP 36.0 <300 pg/mL [facility] Comment:Reference Range:Age Group (years) NT-proBNP (pg/ml) InterpretationAll <300 Negative: HF unlikelyFor patients presenting to the ED with clinical suspicion ofnew onset or worsening HF, see below:18 to <50 >299.9 to <450.0 Grayzone: [id number] to 75 >299.9 to <900.0 other causes of>75 >299.9 to <1800.0 NT-proBNP [id number] to <50 >449.9 Positive: HF -98 >899.9>75 >1799.9Note: Elevated NT-proBNP levels should be interpreted inthe context of other clinical information. 02/07/2025 8:52 PM EDT 02/07/2025 8:57 PM EDT us Generic External Data Provider LAB BLOOD ORDERAB LES Final Result [facility] [address] [place] [phone] * (ABNORMAL) CBC auto differential (02/07/2025 8:52 PM EDT) [facility] White Blood Count 9.9 4.8 - 10.8 X10*3/uL [facility] Red Blood Count 4.35 4.20 - 5.50 X10*6/uL [facility] Hemoglobin 10.4(L) 12.0 - 16.0 g/dl [facility] Hematocrit 32.5(L) 37.0 - 47.0 % [facility] Mean Corpuscular Volume 74.7(L) 80.0 - 98.0 fL [facility] Mean Corpuscular Hemoglobin 23.9(L) 27.0 - 33.0 pg [facility] Mean Corpuscular HGB Conc 32.0 31.0 - 35.0 g/dl [facility] Red Cell Distribution Width 18.5(H) 11.0 - 16.0 % [facility] Platelet Count 224 160 - 400 X10*3/uL [facility] Mean Platelet Volume 11.2 9.4 - 12.3 fL [facility] Neutrophils Percent Auto 63.2 45 - 73 % [facility] Imm Gran Pct Auto 0.5(H) 0.0 - 0.4 % [facility] Lymphocytes Percent Auto 27.0 20 - 40 % [facility] Monocytes Percent Auto 7.7 2 - 11 % [facility] Eosinophils Percent Auto 1.4 0 - 4 % [facility] Basophils Percent Auto 0.2 0 - 2 % [facility] NRBC Pct Auto 0.0 0.0 - 0.2 /100WBC [facility] Neutrophils Absolute Auto 6.2 2.0 - 8.3 x10*3/uL [facility] Imm Gran Abs Auto 0.05(H) 0.00 - 0.03 X10*3/uL [facility] Lymphocytes Absolute Auto 2.7 1.2 - 4.9 X10*3/uL [facility] Monocytes Absolute Auto 0.8 0.1 - 1.2 X10*3/uL [facility] Eosinophils Absolute Auto 0.1 0.0 - 0.4 X10*3/uL [facility] Basophils Absolute Auto 0.0 0.0 - 0.2 X10*3/uL [facility] NRBC Abs Auto 0.000 0.0 - 0.012 X10*3/uL [facility] 02/07/2025 8:52 PM EDT 02/07/2025 8:57 PM EDT us Generic External Data Provider LAB BLOOD ORDERAB LES Final Result [facility] [address] [place] [address] [phone] * (ABNORMAL) C-reactive Protein (02/07/2025 8:52 PM EDT) C Reactive Protein 1.09(H) < or = 0.50 mg/dL [facility] 02/07/2025 8:52 PM EDT 02/07/2025 8:57 PM EDT us Generic External Data Provider LAB BLOOD ORDERAB LES Final Result Performing Organization Address City/[facility]/ZIP Co de Phone Number [facility] [address] [place] [phone] * Magnesium (02/07/2025 8:52 PM EDT) Magnesium 2.1 1.6 - 2.6 mg/dL [facility] 02/07/2025 8:52 PM EDT 02/07/2025 8:57 PM EDT us Generic External Data Provider LAB BLOOD ORDERAB LES Final Result Performing Organization Address [facility] Co de Phone Number [facility] [address] [place] [phone] [phone] * Comprehensive Metabolic Panel (02/07/2025 8:52 PM EDT) Sodium 143 135 - 145 mmol/L [facility] Potassium 4.5 3.3 - 5.1 mmol/L [facility] Chloride 103 96 - 108 mmol/L [facility] Carbon Dioxide 28 22 - 29 mmol/L [facility] Anion Gap 17 12 - 20 [facility] Urea Nitrogen (BUN) 16 9 - 16 mg/dL [facility] Creatinine, Serum 1.06 0.5 - 1.4 mg/dL [facility] Creatinine Clr Calc Pharmacy 62.1 [facility] Comment:Provided height and weight: 165.1 cm,93.44 kg.eGFR (calculated from the MDRD study equation) and eCrCl(calculated from the Cockcroft-Gault equation) are based ondifferent parameters and may not yield comparable results.If eCrCl result is absurd, please check patient'sheight/weight. Estimated Glomerular Filt Rate 53 [facility] Comment:Chronic Kidney Disea se: Estimated GFR < 60 mL/min/1.85f2Famfhv Kidney Disease: Estimated GFR < 15 mL/min/1.73m2 Glucose 77 60 - 115 mg/dL [facility] Calcium 9.2 8.4 - 10.2 mg/dL [facility] Bilirubin, Total 0.2 0.0 - 1.0 mg/dL [facility] Aspartate Amino Transferase 19 5 - 31 U/L [facility] Alanine Aminotransferase 8 0 - 31 U/L [facility] Total Protein 7.1 6.5 - 8.0 g/dL [facility] Albumin Level 4.2 3.5 - 5.0 g/dL [facility] Alkaline Phosphatase 72 39 - 117 U/L [facility] 02/07/2025 8:52 PM EDT 02/07/2025 8:57 PM EDT us Generic External Data Provider LAB BLOOD ORDERAB LES Final Result Performing Organization Address City/State/[facility] Co de Phone Number [facility] [address] [place] [phone] documented in this encounter Visit Diagnoses Not on filedocumented in this encounter Additional Health Concerns Assessment Noted Time PHQ-9 Depression Total Score: 0 02/03/20 25 2:44 PM EDT documented as of this encounter Care Teams Paving Block Cutter Relationship Specialty Start Date End Date Elizabeth Dunn MD [address] [place] [address] PCP - General Family Medicine 03/17/18 Thao Barnhart Carry Out ClerkRn Visiting 02/07/23 documented as of this encounter
--- OUTSIDE RECORDS SUMMARY | 2025-02-11 19:25 | XMS_ITS | Encounter Summary ---
Author Organization [employer] Address [address] [place] [address] 7t [place] [address] Care Team Providers Care Ventilation Worker Name Role Phone Elizabeth Dunn MD Primary Care Provide r Kai Bowden RN Unavailable [phone] Manuela Melendez Unavailable Encounter Details Date Type Department Care Team (Late Contact Info) Description 01/29/2023 Orders Only [facility] MEDICINE [address] [place] [address] [phone] ProviderHector MD Social History Tobacco Use Types Packs/Day Years [...] Department Care Team (Late Contact Info) Description 2025 3:15 PM EDT Office Visit [facility] MEDICINE [address] [place] [address] [phone] Elizabeth Dunn MD [address] [place] [address] [phone] 06/07/2025 2:30 PM EST Office Visit [facility] OPTOMETRY [address] [place] [address] Mulu Osman, OD [address] [place] [address] documented as of this encounter Procedures Procedure [...] documented as of this encounter Care Teams Ventilation Worker Relationship Specialty Start Date End Date Elizabeth Dunn MD [address] [place] [address] PCP - General Family Medicine 03/17/18 Kai Bowden, RN [address] [place] [address] Registered Nurse Family Medicine 02/08/25 Manuela Melendez 02/08/25 Thao Barnhart Machine DyerLine Out Man 02/07/23 documented as of this encounter
--- OUTSIDE RECORDS SUMMARY | 2025-02-11 19:25 | XMS_ITS | Encounter Summary ---
Author Organization [employer] Address [address] [place] [address] 7t h Floor [place] [phone] Care Team Providers Care Electrical Maintenance Mechanic Name Role Phone Elizabeth Dunn MD Primary Care Provide r Kai Bowden RN Unavailable [phone] Manuela Melendez Unavailable Reason for Visit * Reason Onset Date Comments Prior Authorization 01/14/2025 PA: Augusto und Encounter Details Date Type Department Care Team ([facility] st Contact Info) Description 01/14/2025 Telephone [facility] MEDICINE [address] [place] [address] Elizabeth Dunn MD [address] [place], [place] [phone] Prior Authorization ( PA: Trish) Social History Tobacco Use Types [...] back to discuss update Contact pt at [phone] (citizen [place]) * Telephone Encounter - Lo Clemens - 01/14/2025 11:55 AM EDT Tc from pt stating a PA is needed for Tirzepatide-Weight Management (Zepbound) 10 MG/0.5ML solutionauto-injector Contact pt at [phone] (citizen of [place]) documented in this encounter Plan of Treatment Upcoming Encounters Date Type Department Care Team (Late st Contact Info) Description 2025 3:15 PM EDT Office Visit [facility] MEDICINE [address] [place] [address] Elizabeth Dunn MD [address] [place] [address] 06/07/2025 2:30 PM EST Office Visit [facility] OPTOMETRY [address] [place], [place] [phone] DawsonMulu ham, OD [address] [place] [address] documented as of this encounter Visit Diagnoses Not on filedocumented in this encounter Additional Health Concerns Assessment Noted Time PHQ-9 Depression Total Score: 0 08/20/19 24 2:32 PM EDT documented as of this encounter Care Teams Electrical Maintenance Mechanic Relationship Specialty Start Date End Date Elizabeth Dunn MD [address] [place] [address] PCP - General Family Medicine 03/17/18 Kai Bowden, RN [address] [place] [phone] Registered Nurse Family Medicine 02/08/25 Manuela Melendez 02/08/25 Thao Barnhart Cleaning And Maintenance WorkerContact Acid Plant Operator 02/07/23 documented as of this encounter
--- OUTSIDE RECORDS SUMMARY | 2025-02-11 19:25 | XMS_ITS | Encounter Summary ---
Author Organization [employer] Address [address] [facility] 7t h Floor [place] [phone] Care Team Providers Care Porcelain Enamel Installer Name Role Phone Elizabeth Dunn MD Primary Care Provide r Kai Bowden RN Unavailable [phone] Manuela Melendez Unavailable Reason for Visit * Reason Onset Date Comments Med Refill 06/21/2024 Encounter Details Date Type Department Care Team ([facility] st Contact Info) Description 06/21/2024 Telephone [facility] MEDICINE [address] [place] [address] Elizabeth Dunn MD [address] [place], [place] [phone] Med Refill Social History Tobacco Use Types [...] housing situation today? I have katialino manriquez 08/20/[address] you [...] 500 MG tablet To be sent to: [facility]/pharmacy #[id number] documented in this encounter Plan of Treatment Upcoming Encounters Date Type Department Care Team (Late st Contact Info) Description 2025 3:15 PM EDT Office Visit [facility] MEDICINE [address] [place], [place] [phone] Elizabeth Dunn MD [address] [place] [address] 06/07/2025 2:30 PM EST Office Visit [facility] OPTOMETRY [address] [place], [place] [phone] Mulu Osman OD [address] [place], [place] [phone] documented as of this encounter Visit Diagnoses Not on filedocumented in this encounter Additional Health Concerns Assessment Noted Time PHQ-9 Depression Total Score: 0 08/20/19 24 2:32 PM EDT documented as of this encounter Care Teams Porcelain Enamel Installer Relationship Specialty Start Date End Date Elizabeth Dunn MD [address] [place], [place] [phone] PCP - General Family Medicine 03/17/18 Kai Bowden, MATT [address] [place] [address] Registered Nurse Family Medicine 02/08/25 Manuela Melendez 02/08/25 Thao Barnhart Wood Car BuilderButton And Buckle Maker 02/07/23 documented as of this encounter
--- OUTSIDE RECORDS SUMMARY | 2025-02-11 19:25 | XMS_ITS | Encounter Summary ---
Author Organization [employer] Address [address] [place] [address] 7t [place] [address] Care Team Providers Care Rehab Liaison Name Role Phone Elizabeth Dunn MD Primary Care Provide r Kai Bowden RN Unavailable [phone] Manuela Melendez Unavailable Encounter Details Date Type Department Care Team (Late st Contact Info) Description 05/17/2022 Abstract [facility] MEDICINE [address] [place] [address] Linda Romero, PharmD [address] [place] [address] Social History Tobacco Use Types Packs/Day Years [...] Description 2025 3:15 PM EDT Office Visit [facility] MEDICINE [address] [place] [address] Elizabeth Dunn MD [address] [place] [address] 06/07/2025 2:30 PM EST Office Visit [facility] OPTOMETRY [address] [place] [address] Mulu Osman, OD [address] [place] [address] documented as of this encounter Visit Diagnoses Not on filedocumented in this encounter Care Teams Rehab Liaison Relationship Specialty Start Date End Date Elizabeth Dunn MD [address] [place], [place] [phone] PCP - General Family Medicine 03/17/18 Kai Bowden, MATT [address] [place] [address] Registered Nurse Family Medicine 02/08/25 Manuela Melendez 02/08/25 Thao Barnhart Drafter GeophysicalWood Filler 02/07/23 documented as of this encounter
--- OUTSIDE RECORDS SUMMARY | 2025-02-11 19:25 | XMS_ITS | Encounter Summary ---
Author Organization [employer] Address 75 [facility] [address]t h Floor [place] [phone] Care Team Providers Care Straight Edger Name Role Phone Elizabeth Dunn MD Primary Care Provide r Kai Bowden RN Unavailable [phone] Manuela Melendez Unavailable Encounter Details Date Type Department Care Team (Late st Contact Info) Description 03/26/2024 Orders Only [facility] MEDICINE [address] [place] [address] Elizabeth Dunn MD [address] [place] [address] Social History Tobacco Use Types Packs/Day Years [...] Description 2025 3:15 PM EDT Office Visit [facility] MEDICINE [address] [place] [address] Elizabeth Dunn MD [address] [place] [address] 06/07/2025 2:30 PM EST Office Visit [facility] OPTOMETRY [address] [place] [address] Dawson, Mulu, OD [address] [place] [address] documented as of this encounter Visit Diagnoses Not on filedocumented in this encounter Additional Health Concerns Assessment Noted Time PHQ-9 Depression Total Score: 0 08/20/19 24 2:32 PM EDT documented as of this encounter Care Teams Straight Edger Relationship Specialty Start Date End Date Elizabeth Dunn MD [address] [place] [address] PCP - General Family Medicine 03/17/18 Kai Bowden, MATT [address] [place] [address] Registered Nurse Family Medicine 02/08/25 Manuela Melendez 02/08/25 Thao Barnhart Unarmed Security OfficerPhotography Intern 02/07/23 documented as of this encounter
--- OUTSIDE RECORDS SUMMARY | 2025-02-11 19:25 | XMS_ITS | Encounter Summary ---
Author Organization [employer] Address 75 [facility] 7t [place] [address] Care Team Providers Care Contracts Advisor Name Role Phone Elizabeth Dunn MD Primary Care Provide r Kai Bowden RN Unavailable [phone] Manuela Melendez Unavailable Reason for Visit * Reason Comments Care Coordination C3CM/CHW Manuela Hood april, initial assessment scheduled Encounter Details Date Type Department Care Team (Latest Contact Info) Description 02/08/2025 Patient Outreach [facility] MEDICINE [address] [place] [address] Elizabeth Dunn MD [address] [place] [address] Care Coordination (C3CM/CHW Manuela Melendez, initial assessment scheduled ) Social History Tobacco Use Types Packs/Day [...] Progress Notes * Manuela Melendez - 02/08/2025 11:16 AM EDT CHW Manuela Melendez, placed outbound call to patient introducing herself from [facility] CM Department, in regards to offering for [facility] Adult Complex Care Program. Patient's name and was confirmed. Patient agrees to participate in program. Appt. for initial assessment scheduled for 03/01/25 @ 10:00 AM with CM/RN Kai Bowden. Patient stated that she called [facility] for ED follow up appointment. Patient is waiting for a call back. CHW reinforced direct contact information or CM for any additional questions or concerns and extended clinic hours on Mondays and Wednesdays, and Walk-In Urgent Care Located in [facility] of [facility]. Patient provided with after-hours line for [facility], , which offer night triage service and option to transfer to water filtration technician provider if needed. Patient verbalizes understanding, and able to repeat back to marine underwriter. documented in this encounter Plan of Treatment Upcoming Encounters Date Type Department Care Team (Late st Contact Info) Description 2025 3:15 PM EDT Office Visit [facility] MEDICINE [address] [place] [address] Elizabeth Dunn MD [address] [place] [address] 06/07/2025 2:30 PM EST Office Visit [facility] OPTOMETRY [address] [place] [address] Dawson, Mulu, OD [address] [place] [address] documented as of this encounter Visit Diagnoses Not on filedocumented in this encounter Additional Health Concerns Assessment Noted Time PHQ-9 Depression Total Score: 0 02/03/20 2:44 PM EDT documented as of this encounter Care Teams Contracts Advisor Relationship Specialty Start Date End Date Elizabeth Dunn MD [address] [place] [address] PCP - General Family Medicine 03/17/18 Kai Bowden, MATT [address] [place] [address] Registered Nurse Family Medicine 02/08/25 Manuela Melendez 02/08/25 Thao Barnhart Education Department ChairBoard Attendant 02/07/23 documented as of this encounter
--- OUTSIDE RECORDS SUMMARY | 2025-02-11 19:25 | XMS_ITS | Encounter Summary ---
Author Organization [employer] Address [address] [facility] 7t [place] [address] Care Team Providers Care Cullet Trucker Name Role Phone Elizabeth Dunn MD Primary Care Provide r Kai Bowden RN Unavailable [phone] Manuela Melnedez Unavailable Reason for Visit * Reason Comments Med Refill Encounter Details Date Type Department Care Team ([facility] st Contact Info) Description 12/15/2024 Refill [facility] MEDICINE [address] [place] [address] Elizabeth Dunn MD [address] [place] [address] Social History Tobacco Use Types Packs/Day Years [...] 3:15 PM EDT Office Visit [facility] MEDICINE [address] [place] [address] Elizabeth Dunn MD [address] [place] [address] 06/07/2025 2:30 PM EST Office Visit [facility] OPTOMETRY [address] [place] [address] Dawson, Mulu, OD [address] [place] [address] documented as of this encounter Visit Diagnoses Not on filedocumented in this encounter Additional Health Concerns Assessment Noted Time PHQ-9 Depression Total Score: 0 08/20/19 24 2:32 PM EDT documented as of this encounter Care Teams Cullet Trucker Relationship Specialty Start Date End Date Elizabeth Dunn MD [address] [place] [address] PCP - General Family Medicine 03/17/18 Kai Bowden RN [address] [place] [address] Registered Nurse Family Medicine 02/08/25 Manuela Melendez 02/08/25 Thao Barnhart Title I Math TutorEngraver Tender 02/07/23 documented as of this encounter
[2025-02-11 19:35] LABS: Alanine Aminotransferase 10 U/L (0-31); Albumin Level 3.9 g/dL (3.5-5.0); Alkaline Phosphatase 75 U/L (39-117); Anion Gap 12 (12-20); Aspartate Amino Transferase 21 U/L (5-31); Blood Urea Nitrogen 20 mg/dL (9-16); Calcium 8.5 mg/dL (8.4-10.2); Carbon Dioxide 24 mmol/L (22-29); Chloride 109 mmol/L (96-108); Creatinine Clr Calc Pharmacy 54.1; Estimated Glomerular Filt Rate 55; Potassium 3.9 mmol/L (3.3-5.1); Sodium 141 mmol/L (135-145); Total Protein 6.6 g/dL (6.5-8.0)
[2025-02-11] MEDS: iohexoL 350 MG/ML 100 ML INFUS..BTL IV (22:20)
[2025-02-11 22:48] VITALS: BP 132/76; PULSE 64; RESP 16; TEMP 36.6; O2SAT 97
--- NOTE | 2025-02-11 22:51 | MHC.EDTECH ---
Pt voided 300ml. urine sample collected and sent to lab.
[2025-02-11 22:58] LABS: Appearance Urine Clear; Glucose Urine UA Negative (Negative); PH 5.0 (5.0-9.0); Specific Gravity - Urine 1.020 (1.005-1.025)
[2025-02-12 00:40] VITALS: BP 139/85; PULSE 80; RESP 18; TEMP 36.8; O2SAT 97
--- NOTE | 2025-02-12 01:25 | PC.NURSE ---
Pt reports small BM after enema. Provider made aware.
[2025-02-12 02:31] VITALS: BP 139/82; PULSE 79; RESP 18; TEMP 37; O2SAT 98
== END 2025-02-12 02:33 | disposition home or self-care (01) ==
PROVIDERS: Emergency Provider Emergency Medicine; PCP Internal Medicine
DX: K59.09 Other constipation (principal); M79.672 Pain in left foot; M79.671 Pain in right foot; J45.909 Unspecified asthma, uncomplicated; E11.9 Type 2 diabetes mellitus without complications; F32.9 Major depressive disorder, single episode, unspecified; G89.4 Chronic pain syndrome; Z79.84 Long term (current) use of oral hypoglycemic drugs; R53.83 Other fatigue; E78.5 Hyperlipidemia, unspecified; I10 Essential (primary) hypertension; D64.9 Anemia, unspecified; F41.9 Anxiety disorder, unspecified; M79.7 Fibromyalgia
CPT/HCPCS: 36415; 73630; 74018; 74177; 80053; 81001; 85025; 96372; 99284; 99285; J1885; Q9967

== ENCOUNTER → 2025-02-11 19:07 | Outpatient (BNV) | payer MEDICAID, SELFPAY | PROVIDERS: Emergency Provider Emergency Medicine; PCP Internal Medicine; Visit Provider Radiology Diagnostic Radiology | DX: K59.00 Constipation, unspecified (principal) | CPT/HCPCS: 74018; 74177 ==

== ENCOUNTER → 2025-02-12 00:09 | Outpatient (BNV) | payer MEDICAID, SELFPAY | PROVIDERS: Emergency Provider Emergency Medicine; PCP Internal Medicine; Visit Provider General Practice | DX: R22.41 Localized swelling, mass and lump, right lower limb (principal) | CPT/HCPCS: 73630 ==

== ENCOUNTER 2025-02-15 08:58 | Outpatient (REF) | payer MEDICAID, SELFPAY ==
--- OUTSIDE RECORDS SUMMARY | 2025-02-14 15:15 | XMS_ITS | Encounter Summary ---
Author Organization [employer] Address [address] [facility] [address] [place] [address] Care Team Providers Care Pcb Design Engineer Name Role Phone Elizabeth Dunn MD Primary Care Provide r Kai Bowden RN Unavailable [phone] Manuela Melendez Unavailable Reason for Referral * Consultation (Urgent) - Authorized Specialty Diagnoses / Procedures Referred By Contspencer t Referred To Contact Podiatry Diagnoses Right foot pain Left foot pain Elizabeth Dunn MD [address] [place] [address] Phone: tel: fax: Ryan Jurado DPM [address] [address] Phone: tel: fax: Referral ID Status Reason Start Date Expiration Date Visits Requested Visits Authorized [id number] Authorized Specialty Services Required 2025 2026 6 6 * Consultation (Routine) - Authorized Specialty Diagnoses / Procedures Referred By Contac t Referred To Contact Rheumatology Diagnoses Polyarthralgia Fibromyalgia Elizabeth Dunn MD [address] [place] [address] Phone: tel: fax: [facility] Rheumatology [address] Phone: tel: fax: Referral ID Status Reason Start Date Expiration Date Visits Requested Visits Authorized [id number] Authorized Specialty Services Required 2025 2026 6 6 Encounter Details Date Type Department Care Team (Latest Contact Info) Description 2025 3:15 PM EDT Office Visit [facility] [address] [place] [address] Elizabeth Dunn MD [address] [place] [address] Polyarthralgia (Primary Dx); Right foot pain; Left foot pain; Type 2 diabetes mellitus without complication, without long-term current use of insulin (HCC); Fibromyalgia Social History Tobacco Use Types Packs/Day Years [...] Sign Reading Time Taken Comments Blood Pressure 120/78 2025 2:58 PM EDT Pulse 77 2025 2:58 PM EDT Temperature 36.4 C (97.5 F) 2025 2:58 PM EDT Respiratory Rate 15 2025 2:58 PM EDT Oxygen Saturation 97% 2025 2:58 PM EDT Inhaled Oxygen Concentration - - Weight 93.4 kg (205 lb 12.8 oz) 2025 2:58 PM EDT Height 165.1 cm (5' 5 ) 2025 2:58 PM EDT Body Mass Index 34.25 2025 2:58 PM EDT documented in this encounter Progress Notes * Elizabeth Goncalves MD - 2025 3:15 PM EDT SUBJECTIVE: Lelo Rivas is a 65 y.o. year old female who presents for Follow up . Acute Concerns: Patient reports she has been having pain on both of her feet more on the right one and she also hasbeen noticing swelling, she went to the emergency room because of these medication was prescribed which is helping but she needs to take double the dose of the Toradol to help with inflammation and pain of her feet, patient tells me she is aware she has fibromyalgia but this pain and swelling on her feet is different from the fibromyalgia Social History Social History Narrative Not on file Problem List[1] Acute maxillary sinusitis Microcytic anemia Benzodiazepine dependence (CMS/HCC) (HCC) Blurring of visual image Chronic idiopathic constipation [...] Type 2 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 (HCC) Chronic pain 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order (CMS/HCC) (HCC) Asthma COVID-19 Diabetes 1.5, managed as type 2 (HCC) Diverticulosis Feeling of incomplete bladder emptying Hesitancy [...] back pain with left-sided sciatica Primary insomnia Family History[2] Review of Systems Constitutional: Positive for fatigue. Negative for activity change, appetite change, chills, diaphoresis, fever and unexpected weight change. HENT: Negative. Respiratory: Negative. Cardiovascular: Negative. Musculoskeletal: Positive for arthralgias and myalgias. OBJECTIVE: Vitals: 02/14/25 1458 BP: 120/78 BP Location: Right arm Patient Position: Sitting BP Cuff Size: Large adult Pulse: 77 Resp: 15 Temp: 97.5 ??F (36.4 ??C) TempSrc: Temporal SpO2: 97% Weight: 205 lb 12.8 oz (93.4 kg) Height: 5' 5 (1.651 m) Physical Exam Constitutional: Appearance: Normal appearance. Cardiovascular: Rate and Rhythm: Normal rate and regular rhythm. Pulmonary: Effort: Pulmonary effort is normal. Breath sounds: Normal breath sounds. Abdominal: General: Abdomen is flat. Palpations: Abdomen is soft. Feet: Right foot: Skin integrity: Warmth present. Left foot: Skin integrity: Warmth present. Comments: Swelling of feet more the right than the left there is warmth sensation to touch and tenderness to touch Neurological: Mental Status: She is alert. Follow Up: No follow-ups on file. Medications Ordered Prior to Encounter[3] Problem List Items Addressed This Visit Right foot pain Gout? I will order uric acid and contact patient with results I refer patient to podiatry and rheumatology I decided to treat her with prednisone taper dose Relevant Medications predniSONE (Deltasone) 10 MG tablet Other Relevant Orders Uric acid Referral to Podiatry Left foot pain I referred patient to podiatry Relevant Medications predniSONE (Deltasone) 10 MG tablet Other Relevant Orders Uric acid Referral to Podiatry T2DM (type 2 diabetes mellitus) (HCC) Patient is tolerating well Mounjaro will increase her dose to 12.5 mg weekly Relevant Medications Tirzepatide (Mounjaro) 12.5 MG/0.5ML solution auto-injector Polyarthralgia - Primary Rheumatology referral Relevant Medications predniSONE (Deltasone) 10 MG tablet Other Relevant Orders Referral to Rheumatology Fibromyalgia Extensive counseling about her condition done today I decided to refer her to rheumatology Relevant Medications predniSONE (Deltasone) 10 MG tablet Other Relevant Orders Referral to Rheumatology [1] Patient Active Problem List Diagnosis Acute maxillary sinusitis Microcytic anemia Benzodiazepine dependence (CMS/HCC) (HCC) Blurring of visual image Chronic idiopathic constipation [...] Type 2 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 (HCC) Chronic pain 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order (CMS/HCC) (HCC) Asthma COVID-19 Diabetes 1.5, managed as type 2 (HCC) Diverticulosis Feeling of incomplete bladder emptying Hesitancy [...] (BMI) of 35.0 to 35.9 in adult Family history of colon cancer History of adenomatous polyp of colon Long-term use of high-risk medication T2DM (type 2 diabetes mellitus) (HCC) Encounter for screening for malignant neoplasm of colon Encounter for screening for malignant neoplasm of rectum Acute nontraumatic kidney injury Acute pain of right shoulder Class 1 obesity due to excess calories with serious comorbidity and body mass index (BMI) of 34.0 to 34.9 in adult Diabetic mononeuropathy simplex (HCC) Right foot pain Left foot pain Polyarthralgia [2] No family history on file. [3] [...] TODOS LOS D EN LA MA JESSICA No current facility-administered medications on file prior to visit. documented in this encounter Miscellaneous Notes * Assessment & Plan Note - Elizabeth Goncalves MD - 2025 4:34 PM EDT Associated Problem(s): Right foot pain Gout? I will order uric acid and contact patient with results I refer patient to podiatry and rheumatology I decided to treat her with prednisone taper dose * Assessment & Plan Note - Elizabeth Goncalves MD - 2025 4:34 PM EDT Associated Problem(s): Polyarthralgia Rheumatology referral * Assessment & Plan Note - Elizabeth Goncalves MD - 2025 4:34 PM EDT Associated Problem(s): Left foot pain I referred patient to podiatry * Assessment & Plan Note - Elizabeth Goncalves MD - 2025 4:33 PM EDT Associated Problem(s): Fibromyalgia Extensive counseling about her condition done today I decided to refer her to rheumatology * Assessment & Plan Note - Elizabeth Goncalves MD - 2025 4:33 PM EDT Associated Problem(s): T2DM (type 2 diabetes mellitus) (HCC) Patient is tolerating well Mounjaro will increase her dose to 12.5 mg weekly documented in this encounter Plan of Treatment Upcoming Encounters Date Type Department Care Team (Late st Contact Info) Description 06/07/2025 2:30 PM EST Office Visit [facility] [address] [place] [address] Peng Osmann, OD [address] [place] [address] Scheduled Orders Name Type Priority Associated Diagnoses Orde r Schedule Uric acid Lab Routine Right foot pain Left foot pain Expected: 2025 (Approximate), Expires: 2026 Scheduled Referrals Name Type Priority Associated Diagnoses Order Schedule Referral to Rheumatology Outpatient Referral Routine Polyarthralgia Fibromyalgia Expected: 2025 (Approximate), Expires: 2026 Referral to Podiatry Outpatient Referral Urgent Right foot pain Left foot pain Expected: 2025 (Approximate), Expires: 2026 documented as of this encounter Visit Diagnoses Diagnosis Polyarthralgia- Primary Pain in joint, multiple sites Right foot pain Pain in soft tissues of limb Left foot pain Pain in soft tissues of limb Type 2 diabetes mellitus without complication, without long-term current use of insulin (HCC) Fibromyalgia Unspecified myalgia and myositis documented in this encounter Additional Health Concerns Assessment Noted Time PHQ-9 Depression Total Score: 0 02/03/20 25 2:44 PM EDT documented as of this encounter Care Teams Pcb Design Engineer Relationship Specialty Start Date End Date Elizabeth Dunn MD [address] [place] [address] PCP - General Family Medicine 03/17/18 Kai Bowden, RN [address] [place] [id number] Registered Nurse Family Medicine 02/08/25 Manuela Melendez 02/08/25 Thao Barnhart Computer Lab AssistantStucco Laborer 02/07/23 documented as of this encounter
--- OUTSIDE RECORDS SUMMARY | 2025-02-15 09:50 | XMS_ITS | Encounter Summary ---
Author Organization [employer] Address [address] [facility] [address] 7[address] [place] [address] Care Team Providers Care Audit Officer Name Role Phone Elizabeth Dunn MD Primary Care Provide r Kai Bowden RN Unavailable [phone] Manuela Melendez Unavailable Encounter Details Date Type Department Care Team (Late st Contact Info) Description 02/11/2025 Orders Only [facility] External Provider, [facility] Social History Tobacco Use Types Packs/Day Years [...] 2:30 PM EST Office Visit [facility] [address] [place], [place] [id number] Dawson, Mulu, OD [address] [place] [address] documented as of this encounter Procedures Procedure Name Priority Date/Time Associated Diagnosis Comments XR FOOT 3+ VIEWS RIGHT Routine 02/12/2025 1:[address] ABDOMEN PELVIS W CONTRAST Routine 02/11/2025 11:22 PM EDT URINALYSIS, COMPLETE, WITH REFLEX TO CULTURE Routine 02/11/2025 10:50 PM EDT XR KUB AND UPRIGHT 2 VIEWS Routine 02/11/2025 7:34 PM EDT documented in this encounter Results * XR Foot 3+ Views Right (02/12/2025 1:30 AM EDT) Anatomical Region Laterality Modality Lower Extremities, Foot Right Radiogra phic Imaging 02/12/2025 1:30 AM EDT Narrative 02/12/2025 1:32 AM EDT [facility] [address] [place] [address] XRay Report Signed Patient: Lelo Plata R MR# : [id number] : 1960 Acct:[id number] Age/Sex: 64 / F ADM Date: 02/11/25 Loc: HO.ED Attending Dr: Ordering Physician: Perla Turner Date of Service: 02/12/25 Procedure(s): XR foot RT min 3V Accession Number(s): [id number] cc: Elizabeth Dunn MD; Perla Turner Reason for Exam: overlying erythema/swelling CLINICAL HISTORY: overlying erythema swelling 3 view right foot Comparison: None provided Findings: Bones are osteopenic. No ankle effusion. No radiopaque foreign body. Calcaneal plantar and Achilles enthesopathy noted. IMPRESSION: 1. No acute findings. This document has been electronically signed by: Rafael Carvalho MD, PHD on 02/12/2025 01:30:50 Dictated By: Rafael Carvalho MD Signed By: <Electronically signed by Rafael Carvalho MD in OV> 02/12/25131 DD/ 9 TD/TT: 02/12/25129 Animal Cruelty Investigator: Procedure Note Donotuseinterpreter, Image - 02/12/2025 [place] [address] XRay Report Signed Patient: Lelo Plata RMR# : [id number] : 1960cct:[id number] Age/Sex: 64 / FADM Date: 02/11/25 Loc: HO.ED Attending Dr: Ordering Physician: Perla Turner Date of Service: 02/12/25 Procedure(s): XR foot RT min 3V Accession Number(s): [id number] cc: Elizabeth Dunn MD; Perla Turner Reason for Exam: overlying erythema/swelling CLINICAL HISTORY: overlying erythema swelling 3 view right foot Comparison: None provided Findings: Bones are osteopenic. No ankle effusion. No radiopaque foreign body. Calcaneal plantar and Achilles enthesopathy noted. IMPRESSION: 1. No acute findings. This document has been electronically signed by: Rafael Carvalho MD, PHD on 02/12/2025 01:30:50 Dictated By: Rafael Carvalho MD Signed By: <Electronically signed by Rafael Carvalho MD in OV> 02/12/25131 DD/ 9 TD/TT: 02/12/25129 Animal Cruelty Investigator: [facility] External Provider IMG XR PROCEDURES Edited Result - Final * CT Abdomen Pelvis w/ Contrast (02/11/2025 11:22 PM EDT) Anatomical Region Laterality Modality Body, Pelvis, Abdomen Computed T omography 02/11/2025 11:2 2 PM EDT Narrative 02/11/2025 11:24 PM EDT [place] [address] CT Scan Report Signed Patient: Lelo Plata MR# : [id number] : 1960 Acct:[id number] Age/Sex: 64 / F ADM Date: 02/11/25 Loc: HO.ED Attending Dr: Ordering Physician: Perla Turner Date of Service: 02/11/25 Procedure(s): CT abdomen pelvis w IV con Accession Number(s): [id number] cc: Elizabeth Dunn MD; Perla Turner Report Number: [id number]: Total DLP = 0.00 mGy-cm Reason for Exam: severe constipation SCAN AT 2200 *no iv 2204* CLINICAL HISTORY: severe constipation SCAN AT 2200 *no iv 220* CT abdomen and pelvis with contrast Comparison: 10/29/2022 Findings: Lung bases are clear. No acute bony abnormalities. L5-S1 posterior fusion hardware intact. Small hiatal hernia. Gastric bypass. Liver and spleen within normal limits. Pancreas and adrenal glands unremarkable. Gallbladder is within normal limits. No significant focal renal abnormalities. No renal stones or hydronephrosis. Abdominal aorta is normal in caliber. No free fluid or adenopathy in the pelvis. No diverticulitis. Appendix unremarkable. Large amount of stool throughout colon. No significant bowel distention. Hysterectomy. No adnexal abnormality. Impression: Large amount of stool throughout colon Otherwise unremarkable This document has been electronically signed by: Estuardo Rodriguez MD on 02/11/2025 23:22:49 Dictated By: Estuardo Rodriguez MD Signed By: <Electronically signed by Estuardo Rodriguez MD in OV> 02/11/252322 DD/ 21 TD/TT: 02/11/252321 Animal Cruelty Investigator: Procedure Note Donotuseinterpreter, Image - 02/11/[address] [address] [address] Scan Report Signed Patient: Lelo Plata RMR# : [id number] : 1960cct:[id number] Age/Sex: 64 / FADM Date: 02/11/25 Loc: HO.ED Attending Dr: Ordering Physician: Perla Turner Date of Service: 02/11/25 Procedure(s): CT abdomen pelvis w IV con Accession Number(s): [id number] cc: Elizabeth Dunn MD; Perla Turner Report Number: [id number]: Total DLP = 0.00 mGy-cm Reason for Exam: severe constipation SCAN AT 2200 *no iv 2204* CLINICAL HISTORY: severe constipation SCAN AT 2200 *no iv 2204* CT abdomen and pelvis with contrast Comparison: 10/29/2022 Findings: Lung bases are clear. No acute bony abnormalities. L5-S1 posterior fusion hardware intact. Small hiatal hernia. Gastric bypass. Liver and spleen within normal limits. Pancreas and adrenal glands unremarkable. Gallbladder is within normal limits. No significant focal renal abnormalities. No renal stones or hydronephrosis. Abdominal aorta is normal in caliber. No free fluid or adenopathy in the pelvis. No diverticulitis. Appendix unremarkable. Large amount of stool throughout colon. No significant bowel distention. Hysterectomy. No adnexal abnormality. Impression: Large amount of stool throughout colon Otherwise unremarkable This document has been electronically signed by: Estuardo Rodriguez MD on 02/11/2025 23:22:49 Dictated By: Estuardo Rodriguez MD Signed By: <Electronically signed by Estuardo Rodriguez MD in OV> 02/11/252322 DD/ 21 TD/TT: 02/11/252321 Animal Cruelty Investigator: [facility] External Provider IMG CT PROCEDURES Edited Result - Final * Urinalysis, Complete, with Reflex to Culture (02/11/2025 10:50 PM EDT) Color Urine Yellow [facility] Appearance Urine Clear [facility] PH 5.0 5.0 - 9.0 [facility] Glucose Urine UA Negative Negative mg/dL [facility] Urine Blood Negative Negative [facility] Specific [place] - Urine 1.020 1.005 - 1.025 [facility] Urine Protein Negative Neg-Trace mg/dL [facility] Urine Ketones Negative Negative mg/dL [facility] Nitrite Urine Negative Negative [facility] Leukocyte Esterase Urine Negative Negative [facility] RBC Urine 0-2 0 - 2 /HPF [facility] Urine WBC 0-5 0 - 5 /HPF [facility] Urine Squamous Epithelial Cell 0-2 0 - 2 /HPF [facility] Urine Bacteria None Seen None Seen [facility] Hyaline Casts, Urine 0-2 0 - 2 /LPF [facility] 02/11/2025 10:5 0 PM EDT 02/11/2025 10:54 PM EDT Narrative [facility] - 02/11/2025 11:05 PM EDT 2248Urine, Clean Catch Generic External Data Provider LAB URINE ORDERAB LES Final Result [facility] [address] [place] [phone] * XR KUB and Upright 2 Views (02/11/2025 7:34 PM EDT) Anatomical Region Laterality Modality Radiographic Delilah ging 02/11/2025 7:34 PM EDT Narrative 02/11/2025 7:35 PM EDT [address] [address] XRay Report Signed Patient: Lelo Plata MR# : [id number] : 1960 Acct:[id number] Age/Sex: 64 / F ADM Date: 02/11/25 Loc: HO.ED Attending Dr: Ordering Physician: Perla Turner Date of Service: 02/11/25 Procedure(s): XR KUB Accession Number(s): [id number] cc: Elizabeth Dunn MD; Perla Turner Reason for Exam: constipation CLINICAL HISTORY: constipation Abdominal radiographs Comparison: CT/REG/CT/SR - CT ABDOMEN PELVIS W IV CON - 10/29/22 18:48 EDT Findings: There is a nonobstructive bowel gas pattern. Stool quantity is moderate to severely increased. Postsurgical change in the left upper quadrant. No pneumoperitoneum or pneumatosis. Clips in the pelvis. Posterior fusion at L5/S1 with an interbody disc spacer. No acute osseous or soft tissue abnormality. Impression: Moderate to severe increase in stool quantity is consistent with the given history of constipation. This document has been electronically signed by: Leanne Becerra MD on 02/11/2025 19:34:19 Dictated By: Leanne Collier MD Signed By: <Electronically signed by Leanne Collier MD in OV> 02/11/251933 DD/ 33 TD/TT: 02/11/251933 Animal Cruelty Investigator: Procedure Note Donotuseinterpreter, Image - 02/11/[address] [address] XRay Report Signed Patient: Lelo Plata RMR# : [id number] : 1960cct:[id number] Age/Sex: 64 / FADM Date: 02/11/25 Loc: HO.ED Attending Dr: Ordering Physician: Perla Turner Date of Service: 02/11/25 Procedure(s): XR KUB Accession Number(s): [id number] cc: Elizabeth Dunn MD; Perla Turner Reason for Exam: constipation CLINICAL HISTORY: constipation Abdominal radiographs Comparison: CT/REG/CT/SR - CT ABDOMEN PELVIS W IV CON - 10/29/22 18:48 EDT Findings: There is a nonobstructive bowel gas pattern. Stool quantity is moderate to severely increased. Postsurgical change in the left upper quadrant. No pneumoperitoneum or pneumatosis. Clips in the pelvis. Posterior fusion at L5/S1 with an interbody disc spacer. No acute osseous or soft tissue abnormality. Impression: Moderate to severe increase in stool quantity is consistent with the given history of constipation. This document has been electronically signed by: Leanne Becerra MD on 02/11/2025 19:34:19 Dictated By: Leanne Collier MD Signed By: <Electronically signed by Leanne Collier MD in OV> 02/11/251933 DD/ 33 TD/TT: 02/11/251933 Animal Cruelty Investigator: [facility] External Provider IMG XR PROCEDURES Final Result documented in this encounter Visit Diagnoses Not on filedocumented in this encounter Additional Health Concerns Assessment Noted Time PHQ-9 Depression Total Score: 0 02/03/20 2:44 PM EDT documented as of this encounter Care Teams Audit Officer Relationship Specialty Start Date End Date Elizabeth Dunn MD [address] [place] [address] PCP - General Family Medicine 03/17/18 Kai Bowden, RN [address] [place] [address] Registered Nurse Family Medicine 02/08/25 Manuela Melendez 02/08/25 Thao Barnhart Brick Chimney SupervisorInstrumentation Engineering Technician 02/07/23 documented as of this encounter
--- OUTSIDE RECORDS SUMMARY | 2025-02-15 09:50 | XMS_ITS | Encounter Summary ---
Author Organization [employer] Address [address] [facility] [address] [place] [id number] Care Team Providers Care Case Technician Name Role Phone Elizabeth Dunn MD Primary Care Provide r Kai Bowden RN Unavailable [phone] Manuela Melendez Unavailable Reason for Visit * Reason Onset Date Comments Med Refill 06/21/2024 Encounter Details Date Type Department Care Team ([facility] st Contact Info) Description 06/21/2024 Telephone [facility] [address] [place] [address] Elizabeth Dunn MD [address] [place], [place] [phone] Med Refill Social History Tobacco Use Types [...] 500 MG tablet To be sent to: [facility]/pharmacy #[id number] documented in this encounter Plan of Treatment Upcoming Encounters Date Type Department Care Team (Late st Contact Info) Description 06/07/2025 2:30 PM EST Office Visit [facility] [address] [place] [address] Mulu Osman, OD [address] [place] [address] documented as of this encounter Visit Diagnoses Not on filedocumented in this encounter Additional Health Concerns Assessment Noted Time PHQ-9 Depression Total Score: 0 08/20/19 24 2:32 PM EDT documented as of this encounter Care Teams Case Technician Relationship Specialty Start Date End Date Elizabeth Dunn MD [address] [place] [address] PCP - General Family Medicine 03/17/18 Kai Bowden, MATT [address] [place] [address] Registered Nurse Family Medicine 02/08/25 Manuela Melendez 02/08/25 Thao Barnhart Knowledge AnalystOutpatient Physical Therapist 02/07/23 documented as of this encounter
--- OUTSIDE RECORDS SUMMARY | 2025-02-15 09:50 | XMS_ITS | Encounter Summary ---
Author Organization [employer] Address 75 [facility] 7t h Floor [place] [id number] Care Team Providers Care Court Worker Name Role Phone Elizabeth Dunn MD Primary Care Provide r Kai Bowden RN Unavailable [phone] Manuela Melendez Unavailable Encounter Details Date Type Department Care Team (Late st Contact Info) Description 01/12/2025 Orders Only [facility] MEDICINE [address] [place] [address] Elizabeth Dunn MD 230 [place] [address] Social History Tobacco Use Types Packs/Day Years [...] Description 06/07/2025 2:30 PM EST Office Visit [facility] OPTOMETRY [address] [place], [place] [phone] Mulu Osman, OD 230 [place] [address] documented as of this encounter Visit Diagnoses Not on filedocumented in this encounter Additional Health Concerns Assessment Noted Time PHQ-9 Depression Total Score: 0 08/20/19 24 2:32 PM EDT documented as of this encounter Care Teams Court Worker Relationship Specialty Start Date End Date Elizabeth Dunn MD 230 [place] [address] PCP - General Family Medicine 03/17/18 Kai Bowden, MATT [address] [place] [address] Registered Nurse Family Medicine 02/08/25 Manuela Melendez 02/08/25 Thao Barnhart Glaze WiperCarbonation Equipment Operator 02/07/23 documented as of this encounter
--- OUTSIDE RECORDS SUMMARY | 2025-02-15 09:50 | XMS_ITS ---
Author Organization [employer] Address 75 [facility] 7t [place] [address] Care Team Providers Care Java Swing Developer Name Role Phone Elizabeth Dunn MD Primary Care Provide r Kai Bowden RN Unavailable [phone] Manuela Melendez Unavailable CM Complex Status:Outreach In Progress (Enrolling) Start date:02/08/2025 Enrollment reason:ADT Feed Overview ED- Pt went to [facility] on 02/07/25. Case Team Name Relationship Phone Kai Bowden RN(Responsible Staff) Registered Ascencion nguyen [phone] Continued Care and Services Coordination
--- OUTSIDE RECORDS SUMMARY | 2025-02-15 09:50 | XMS_ITS | Encounter Summary ---
Author Organization [employer] Address 75 [facility] 7t [place] [address] Care Team Providers Care Road Roller Operator Hot Mix Name Role Phone Elizabeth Dunn MD Primary Care Provide r Kai Bowden RN Unavailable [phone] Manuela Melendez Unavailable Reason for Visit * Reason Onset Date Comments Nurse Triage 11/26/2023 Encounter Details Date Type Department Care Team ([facility] st Contact Info) Description 11/26/2023 Telephone [facility] MEDICINE [address] [place] [address] Elizabeth Dunn MD [address] [place], [place] [phone] Nurse Triage Social History Tobacco Use Types [...] to PT. Per pt has not called regulatory specialist to notify of increased pain with [...] 2:30 PM EST Office Visit [facility] OPTOMETRY [address] [place], [place] [phone] Dawson, Mulu, OD [address] [place] [address] documented as of this encounter Visit Diagnoses Not on filedocumented in this encounter Additional Health Concerns Assessment Noted Time PHQ-9 Depression Total Score: 0 08/20/19 24 2:32 PM EDT documented as of this encounter Care Teams Road Roller Operator Hot Mix Relationship Specialty Start Date End Date Elizabeth Dunn MD [address] [place] [address] PCP - General Family Medicine 03/17/18 Kai Bowden, MATT [address] [place] [address] Registered Nurse Family Medicine 02/08/25 Manuela Melendez 02/08/25 Thao Barnhart Customer Support AssistantReal Estate Office Supervisor 02/07/23 documented as of this encounter
--- OUTSIDE RECORDS SUMMARY | 2025-02-15 09:50 | XMS_ITS | Encounter Summary ---
Author Organization [employer] Address [address] [place] [address] 7t [place] [address] Care Team Providers Care Director Sterile Processing Name Role Phone Elizabeth Dunn MD Primary Care Provide r Kai Bowden RN Unavailable [phone] Manuela Melendez Unavailable Encounter Details Date Type Department Care Team (Late Contact Info) Description 01/29/2023 Orders Only [facility] MEDICINE 230 [place] [address] Provider, MD Hector Social History Tobacco Use [...] Description 06/07/2025 2:30 PM EST Office Visit [facility] OPTOMETRY [address] [place], [place] [phone] Mulu Osman, OD 230 [place] [address] documented as of this encounter Procedures Procedure [...] documented as of this encounter Care Teams Director Sterile Processing Relationship Specialty Start Date End Date Elizabeth Dunn MD [address] [place] [address] PCP - General Family Medicine 03/17/18 Kai Bowden, MATT [address] [place] [address] Registered Nurse Family Medicine 02/08/25 Manuela Melendez 02/08/25 Thao Barnhart Welding Machine SetterScrap Bunch Maker 02/07/23 documented as of this encounter
--- OUTSIDE RECORDS SUMMARY | 2025-02-15 09:50 | XMS_ITS | Clinical Summary ---
Author Organization [facility] Address [address] [place] [address] Phone Care Team Providers Care Land Surveying Party Chief Name Role Phone Elizabeth Dunn MD Primary [...] sinusitis 03/18/2024 Microcytic anemia 03/18/2024 Benzodiazepine dependence ([facility] V24, [facility] V28) 03/18/2024 Blurring of visual image 03/18/2024 Chronic idiopathic constipation 03/18/2024 T2DM (type 2 diabetes mellitus) ([facility] V24, CM S/[facility] V28) 03/18/2024 Injury of kidney [...] topic Insurance MEDICAID - [place] Care Teams Land Surveying Party Chief Relationship Specialty Start Date End Date Elizabeth Dunn MD [address] [phone] PCP - General Internal Medicine 02/12/24
--- OUTSIDE RECORDS SUMMARY | 2025-02-15 09:50 | XMS_ITS | Encounter Summary ---
Author Organization [employer] Address [address] [facility] [address] 7t [place] [address] Care Team Providers Care Sterile Supervisor Name Role Phone Elizabeth Dunn MD Primary Care Provide r Kai Bowden RN Unavailable [phone] Manuela Melendez Unavailable Encounter Details Date Type Department Care Team (Latest Contact Info) Description 2025 Travel Social History Tobacco Use Types Packs/Day [...] Description 06/07/2025 2:30 PM EST Office Visit [facility] OPTOMETRY [address] [place], [place] [phone] Dawson, Mulu, OD 230 [place] [address] documented as of this encounter Visit Diagnoses Not on filedocumented in this encounter Additional Health Concerns Assessment Noted Time PHQ-9 Depression Total Score: 0 02/03/20 25 2:44 PM EDT documented as of this encounter Care Teams Sterile Supervisor Relationship Specialty Start Date End Date Elizabeth Dunn MD [address] [place] [address] PCP - General Family Medicine 03/17/18 Kai Bowden, MATT [address] [place] [address] Registered Nurse Family Medicine 02/08/25 Manuela Melendez 02/08/25 Thao Barnhart Byproducts OperatorCrop Specialist 02/07/23 documented as of this encounter
--- OUTSIDE RECORDS SUMMARY | 2025-02-15 09:50 | XMS_ITS | Encounter Summary ---
Author Organization [employer] Address 75 [facility] 7t h Floor [place] [phone] Care Team Providers Care Channeling Machine Operator Name Role Phone Elizabeth Dunn MD Primary Care Provide r Kai Bowden RN Unavailable [phone] Manuela Melendez Unavailable Encounter Details Date Type Department Care Team (Late st Contact Info) Description 03/26/2024 Orders Only [facility] MEDICINE 230 [place] [address] Elizabeth Dunn MD 230 [place] [address] Social History Tobacco Use Types Packs/Day Years [...] Description 06/07/2025 2:30 PM EST Office Visit [facility] OPTOMETRY [address] [place], [place] [address] Mulu Osman, OD 230 [place] [address] documented as of this encounter Visit Diagnoses Not on filedocumented in this encounter Additional Health Concerns Assessment Noted Time PHQ-9 Depression Total Score: 0 08/20/19 24 2:32 PM EDT documented as of this encounter Care Teams Channeling Machine Operator Relationship Specialty Start Date End Date Elizabeth Dunn MD [address] [place] [address] PCP - General Family Medicine 03/17/18 Kai Bowden, MATT [address] [place] [address] Registered Nurse Family Medicine 02/08/25 Manuela Melendez 02/08/25 Thao Barnhart Linux DeveloperDemonstrator Sales 02/07/23 documented as of this encounter
--- OUTSIDE RECORDS SUMMARY | 2025-02-15 09:50 | XMS_ITS | Encounter Summary ---
Author Organization [employer] Address 75 [facility] 7t [place] [address] Care Team Providers Care Jewelry Salesperson Name Role Phone Elizabeth Dunn MD Primary Care Provide r Kai Bowden RN Unavailable [phone] Manuela Melendez Unavailable Reason for Visit * Reason Comments Med Refill Encounter Details Date Type Department Care Team ([facility] st Contact Info) Description 12/15/2024 Refill [facility] MEDICINE [address] [place] [address] Elizabeth Dunn MD [address] [place] [address] Social History Tobacco Use Types Packs/Day Years [...] 2:30 PM EST Office Visit [facility] OPTOMETRY [address] [place], [place] [phone] Mulu Osman, OD [address] [place] [address] documented as of this encounter Visit Diagnoses Not on filedocumented in this encounter Additional Health Concerns Assessment Noted Time PHQ-9 Depression Total Score: 0 08/20/19 24 2:32 PM EDT documented as of this encounter Care Teams Jewelry Salesperson Relationship Specialty Start Date End Date Elizabeth Dunn MD [address] [place] [address] PCP - General Family Medicine 03/17/18 Kai Bowden, MATT [address] [place] [address] Registered Nurse Family Medicine 02/08/25 Manuela Melendez 02/08/25 Thao Barnhart General Production WorkerLead Cargoman 02/07/23 documented as of this encounter
--- OUTSIDE RECORDS SUMMARY | 2025-02-15 09:50 | XMS_ITS | Clinical Summary ---
Author Organization [facility], Address [address] [place] [address] Phone Care Team Providers Care Marbleizing Machine Tender Name Role Phone Elizabeth Dunn MD [...] Calculated 126 0 - 160 mg/dL 05/31/2020 [facility] Provider LAB BLOOD ORDERABLES Sandy l Result from Last 3 Months or Most Recently Relevant to Health Maintenance Insurance Medicaid [place] Member Subscriber Plan / Payer (Ef fective 2020-Present) Name:Jose Antonio Rivasda Relation to Subscriber:Self Name:Lelo Rivas Payer ID:Not on file Group ID:Not on file Type:Not on file Address: [id number] Medicaid [place] Care Teams Marbleizing Machine Tender Relationship Specialty Start Date End Date Elizabeth Dunn MD [address] [place] [phone] PCP - General Internal Medicine 11/17/20
--- OUTSIDE RECORDS SUMMARY | 2025-02-15 09:50 | XMS_ITS | Encounter Summary ---
Author Organization [employer] Address [address] [place] [address] 7t h Floor [place] [phone] Care Team Providers Care Boner Meat Name Role Phone Elizabeth Dunn MD Primary Care Provide r Kai Bowden RN Unavailable [phone] Manuela Melendez Unavailable Reason for Visit * Reason Onset Date Comments Prior Authorization 01/14/2025 PA: Augusto und Encounter Details Date Type Department Care Team ([facility] st Contact Info) Description 01/14/2025 Telephone [facility] MEDICINE [address] [place] [address] Elizabeth Dunn MD 230 [place], [place] [phone] Prior Authorization ( PA: Trish) Social History [...] back to discuss update Contact pt at [phone] (danish) * Telephone Encounter - Lo Clemens - 01/14/2025 11:55 AM EDT Tc from pt stating a PA is needed for Tirzepatide-Weight Management (Zepbound) 10 MG/0.5ML solutionauto-injector Contact pt at [phone] (danish) documented in this encounter Plan of Treatment Upcoming Encounters Date Type Department Care Team (Late st Contact Info) Description 06/07/2025 2:30 PM EST Office Visit [facility] OPTOMETRY [address] [place], [place] [phone] Mulu Osman, OD [address] [place] [address] documented as of this encounter Visit Diagnoses Not on filedocumented in this encounter Additional Health Concerns Assessment Noted Time PHQ-9 Depression Total Score: 0 08/20/19 24 2:32 PM EDT documented as of this encounter Care Teams Boner Meat Relationship Specialty Start Date End Date Elizabeth Dunn MD 230 [place], [place] [phone] PCP - General Family Medicine 03/17/18 Kai Bowden, MATT [address] [place] [address] Registered Nurse Family Medicine 02/08/25 Manuela Melendez 02/08/25 Thao Barnhart Hand StraightenerCommercial Green Retrofit Architect 02/07/23 documented as of this encounter
--- OUTSIDE RECORDS SUMMARY | 2025-02-15 09:50 | XMS_ITS | Encounter Summary ---
Author Organization [employer] Address [address] [place] [address] 7t [place] [address] Care Team Providers Care Senior Software Engineer Analytics Name Role Phone Elizabeth Dunn MD Primary Care Provide r Kai Bowden RN Unavailable [phone] Manuela Melendez Unavailable Encounter Details Date Type Department Care Team (Late st Contact Info) Description 05/17/2022 Abstract [facility] MEDICINE [address] [place] [address] Linda Romero, PharmD 230 [place] [address] Social History Tobacco Use Types Packs/Day Years [...] Description 06/07/2025 2:30 PM EST Office Visit [facility] OPTOMETRY [address] [place], [place] [phone] Mulu Osman, OD 230 [place] [address] documented as of this encounter Visit Diagnoses Not on filedocumented in this encounter Care Teams Senior Software Engineer Analytics Relationship Specialty Start Date End Date Elizabeth Dunn MD [address] [place] [address] PCP - General Family Medicine 03/17/18 Kai Bowden, RN [address] [place] [address] Registered Nurse Family Medicine 02/08/25 Manuela Melendez 02/08/25 Thao Barnhart Sap SpecialistAdult Education Manager 02/07/23 documented as of this encounter
--- OUTSIDE RECORDS SUMMARY | 2025-02-15 09:50 | XMS_ITS ---
Author Organization [employer] Address 75 [facility] 7t [place] [address] Care Team Providers Care Cream Hauler Name Role Phone Elizabeth Dunn MD Primary Care Provide r Kai Bowden RN Unavailable [phone] Manuela Melendez Unavailable CHW Complex Status:Outreach In Progress (Enrolling) Start date:02/08/2025 Enrollment reason:ADT Feed Overview ED- Pt went to [facility] ED on 02/07/25. Case Team Name Relationship Phone Manuela Melendez(Responsible Staff) [phone] Continued Care and Services Coordination
--- OUTSIDE RECORDS SUMMARY | 2025-02-15 09:51 | XMS_ITS | Encounter Summary ---
Author Organization [employer] Address [address] [place] [address] 7t [place] [address] Care Team Providers Care Sexual Health Physician Name Role Phone Elizabeth Dunn MD Primary Care Provide r Kai Bowden RN Unavailable [phone] Manuela Melendez Unavailable Reason for Visit * Reason Onset Date Comments Med Refill 12/04/2022 Encounter Details Date Type Department Care Team (Late st Contact Info) Description 12/04/2022 Telephone [facility] MEDICINE 230 [place] [address] Elizabeth Dunn MD [address] [place], [place] [phone] Med Refill Social History Tobacco Use Types [...] Office Visit [facility] OPTOMETRY [address], [place] [phone] Mulu Osman, OD [address] [place] [address] documented as of this encounter Visit Diagnoses Not on filedocumented in this encounter Additional Health Concerns Assessment Noted Time PHQ-9 Depression Total Score: 0 08/03/19 23 3:13 PM EDT documented as of this encounter Care Teams Sexual Health Physician Relationship Specialty Start Date End Date Elizabeth Dunn MD [address] [place], [place] [phone] PCP - General Family Medicine 03/17/18 Kai Bowden, MATT [address] [place] [address] Registered Nurse Family Medicine 02/08/25 Manuela Melendez 02/08/25 Thao Barnhart Erp PmBottle Tester 02/07/23 documented as of this encounter
--- OUTSIDE RECORDS SUMMARY | 2025-02-15 09:51 | XMS_ITS | Clinical Summary ---
Author Organization [employer] Address [address] [facility] [address] [place] [address] Care Team Providers Care Digital Forensic Analyst Name Role Phone Elizabeth Dunn MD Primary Care Provide r Kai Bowden RN Unavailable [phone] Manuela Melendez Unavailable Allergies Active Allergy [...] complication, without long-term current use of insulin ([facility]) Inject 10 mg under the skin 1 (one) time per week. 2 mL 025 Active FREESTYLE LITE test stripIndications :Type 2 diabetes mellitus without complication, without long-term current use of insulin ([facility]) Use to test blood sugar 1 times daily 100 each 12 025 2025 Active Lancets miscIndications: Type 2 diabetes mellitus without complication, without long-term current use of insulin ([facility]) Use to test blood sugar 1 times daily 100 each 1 025 Active Alcohol Swabs 70 % padsIndications: Type 2 diabetes mellitus without complication, without long-term current use of insulin ([facility]) Use to test blood sugar 1 times daily 100 each 1 025 Active Blood Glucose Monitoring Suppl (FreeStyle Lite) w/Device kitIndications:T ype 2 diabetes mellitus without complication, without long-term current use of insulin ([facility]) USE TO TEST BLOOD SUGAR 1 TIMES DAILY 1 kit 025 Active Tirzepatide (Mounjaro) 12.5 MG/0.5ML solution auto-injectorInd ications:Type 2 diabetes mellitus without complication, without long-term current use of insulin (HCC) Inject 12.5 mg under the skin 1 (one) time per week. 2 mL 2 Active predniSONE (Deltasone) 10 MG tabletIndication s:Right foot pain,Left foot pain Take 1 tablet (10 mg) by mouth 5 (five) times a day for 2 days, THEN 1 tablet (10 mg) 4 times daily for 2 days, THEN 1 tablet (10 mg) 3 times daily for 2 days, THEN 1 tablet (10 mg) 2 times daily for 2 days, THEN 1 tablet (10 mg) Once per day for 2 days. 30 tablet 025 2024 Active fluticasone (Flovent) 110 MCG/ACT inhaler Inhale [...] amitriptyline (Elavil) 150 MG tablet TOME NEVAEH Moreno AL ACOSTARSE FOR 30 DAYS 023 2024 [...] bedtime. 2024 Discontinued Blood Glucose Monitoring Suppl (Stuffle Lite) w/Device kitIndications:T ype 2 diabetes mellitus [...] Active Problems Problem Noted Date Diagnosed Date Right foot pain 2025 Assessment & Plan (2025 4:34 PM EDT): Gout? I will order uric acid and contact patient with results I refer patient to podiatry and rheumatology I decided to treat her with prednisone taper dose Left foot pain 2025 Assessment & Plan (2025 4:34 PM EDT): I referred patient to podiatry Polyarthralgia 2025 Assessment & Plan (2025 4:34 PM EDT): Rheumatology referral Diabetic mononeuropathy simplex 02/02/2025 Acute pain of [...] 2 diabetes mellitus) 03/18/2024 Assessment & Plan (2025 4:33 PM EDT): Patient is tolerating well Mounjaro will increase her dose to 12.5 mg weekly Assessment & Plan (02/02/2025 3:31 PM EDT): [...] left foot, she is being manage by pain/family engagement specialist (medications prescribed by specialist only) Chronic bilateral low back pain with left-sided sciatica 08/20/2023 Assessment & Plan (01/07/2024 2:12 PM EDT): I will increase gabapentin to 600mg TID and refer her back to pain management Pelvic pain 08/20/2023 Assessment & Plan (08/21/2023 12:20 PM EDT): SUPERINTENDENT PRESSURE referral as per patient's request Preop examination [...] plastic surgery Fibromyalgia 08/02/2022 Assessment & Plan (2025 4:33 PM EDT): Extensive counseling about her condition done today I decided to refer her to rheumatology Assessment & Plan (02/02/2025 3:29 PM EDT): [...] Acute nontraumatic kidney injury 01/17/2021 Benzodiazepine dependence (CMS/HCC) 10/14/2017 Chronic idiopathic constipation 04/08/2017 Chronic left-sided [...] Diagnosed Date Resolved Date Continuous opioid dependence (CMS/HCC) 04/08/2017 02/02/2025 Encounters Date Type Department Care Team Description 2025 3:15 PM EDT Office Visit [facility] [address] [place] [phone] Elizabeth Dunn MD Polyarthralgia (Primary Dx); Right foot pain; Left foot pain; Type 2 diabetes mellitus without complication, without long-term current use of insulin (HCC); Fibromyalgia 2025 Travel 02/11/2025 Orders Only [facility] External Provider, [facility] 02/08/2025 Telephone [facility] [address] [place] [address] [phone] Elizabeth Dunn MD ER Follow-up 02/08/2025 Patient Outreach [address] [address] Elizabeth Dunn MD Care Coordination ([facility] Manuela Melendez, initial assessment scheduled ) 02/08/2025 Patient Outreach [address] [address] Elizabeth Dunn MD Care Coordination ([facility] Manuela Melendez, Chart review ) 02/08/2025 Patient Outreach [facility] [address] [place], [place] [phone] Elizabeth Dunn MD Care Coordination ([facility]- chart review) 02/08/2025 Patient Outreach [address] [address] Elizabeth Dunn MD 02/07/2025 Orders Only GENERIC EXTERNAL DATA DEPARTMENT Provider, Generic External Data 02/02/2025 3:00 PM EDT Telemedicine [address] [address] Elizabeth Dunn MD Diabetic mononeuropathy simplex (CMS/HCC) (Primary Dx); 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order, without psychotic features (CMS/HCC); Mild intermittent asthma, unspecified whether complicated; Continuous opioid dependence (CMS/HCC); Fibromyalgia; Dietary counseling; Exercise counseling; Type 2 diabetes mellitus without complication, without long-term current use of insulin (CMS/HCC) 02/02/2025 Travel 02/01/[address] [address] Elizabeth Dunn MD 01/26/2025 3:30 PM EDT Office Visit [address] [address] Elizabeth Dunn MD Type 2 diabetes mellitus without complication, without long-term current use of insulin (CMS/HCC) (Primary Dx); Fibromyalgia; Acute pain of right shoulder; Class 1 obesity due to excess calories with serious comorbidity and body mass index (BMI) of 34.0 to 34.9 in adult 01/26/[address] [phone] Elizabeth Dunn MD Type 2 diabetes mellitus without complication, without long-term current use of insulin ([facility]) 01/26/2025 Travel 01/25/2025 Telephone [facility] [address] [place] [address] Elizabeth Dunn MD chart prep 01/21/2025 Travel 01/20/2025 Telephone [facility] [address] [place] [address] Elizabeth Dunn MD appt 01/15/2025 Refill [facility] [address] [place] [address] Vanna Chen MD Microcytic anemia 01/14/2025 Telephone [facility] [address] [place] [address] Elizabeth Dunn MD Prior Authorization ( PA: Trish) 01/12/2025 Orders Only [facility] [address] [place] [address] Elizabeth Dunn MD 01/12/2025 Refill [facility] [address] [place] [address] Elizabeth Dunn MD Class 2 severe obesity with serious comorbidity and body mass index (BMI) of 35.0 to 35.9 in adult, unspecified obesity type ([facility]) 01/11/2025 Refill [facility] [address] [place] [address] Elizabeth Dunn MD Chronic midline low back pain with left-sided sciatica 01/04/2025 10:20 AM EDT Office Visit [facility] [address] [place] [address] Dawson, Mulu, OD Type 2 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 ([facility]) (Primary Dx) 01/04/2025 Travel 12/19/2024 Refill [facility] [address] [place] [address] Elizabeth Dunn MD Chronic bilateral low back pain with left-sided sciatica 12/15/2024 Orders Only [facility] [address] [place] [address] Elizabeth Dunn MD Class 2 severe obesity with serious comorbidity and body mass index (BMI) of 35.0 to 35.9 in adult, unspecified obesity type (CMS/HCC) (Primary Dx) 12/15/2024 Telephone [facility] [address] [place] [address] Elizabeth Dunn MD Med Refill 12/15/2024 Refill [facility] [address] [place] [address] Elizabeth Dunn MD 12/08/2024 Refill [facility] [address] [place] [address] Elizabeth Dunn MD Chronic bilateral low back pain with left-sided sciatica 12/07/2024 Telephone [facility] [address] [place] [address] Elizabeth Dunn MD No Show 12/07/2024 Telephone [facility] [address] [place] [address] Elizabeth Dunn MD Chart Prep 12/06/2024 Refill [facility] [address] [place] [address] Elizabeth Dunn MD Chronic midline low back pain with left-sided sciatica 11/17/2024 Telephone [facility] [address] [place] [address] Elizabeth Dunn MD Medication Question 11/17/2024 Refill [facility] [address] [place] [address] Elizabeth Dunn MD from Last 3 Months [...] Mass Index 34.25 2025 2:58 PM EDT Plan of Treatment Upcoming Encounters Date Type Department Care Team (Late st Contact Info) Description 06/07/2025 2:30 PM EST Office Visit [facility] [address] [place] [address] Dawson, Mulu, OD [address] [place] [address] Health Maintenance Due Date Last Done Comments CT Colonography 1962 FIT DNA/Cologuard 1962 FIT 1962 FOBT 1962 Sigmoidoscopy 1962 Disability Screening 1962 Eye Exam 02/15/1972 Pap Smear 1983 Cervical [...] Colonoscopy 12/10/2025 12/10/2022 Colorectal Cancer Screening 12/10/2025 Alcohol/Substance Use Screening 02/02/2026 02/02/2025 Depression Screening 02/02/2026 02/02/2025, 02/03/20 25 SDOH Screening 02/02/2026 02/02/2025 Diabetes: Foot Exam 2026 2025, Tobacco Screening 2026 2025 DTaP/Tdap/Td Vaccines (3 - Td or Tdap) [...] 2 VIEWS Routine 02/11/2025 7:34 PM EDT VASC US LOWER EXTREMITY VENOUS DUPLEX BILATERAL [...] complication, without long-term current use of insulin ([facility]) POCT GLYCATED HEMOGLOBIN, TOTAL Routine 01/26/2025 3:42 [...] Maintenance Results * XR Foot 3+ Views Right (02/12/2025 1:30 AM EDT) Anatomical Region Laterality Modality Lower Extremities, Foot Right [facility] 02/12/2025 1:30 AM EDT Narrative 02/12/2025 1:32 AM EDT [address] [address] XRay Report Signed Patient: Lelo Plata MR# : [id number] : 1960 Acct:[id number] Age/Sex: 64 / F ADM Date: 02/11/25 Loc: HO.ED Attending Dr: Ordering Physician: Perla Turner Date of Service: 02/12/25 Procedure(s): XR foot RT min 3V Accession Number(s): [id number] cc: Elizabeth Dunn MD; Perla Turner Reason [...] in OV> 02/12/25131 DD/ 9 TD/TT: 02/12/25129 Employment Manager: Procedure Note Donotuseinterpreter, Image - 02/12/[address] [address] XRay Report Signed Patient: Lelo Plata RMR# : [id number] : 1960cct:[id number] Age/Sex: 64 / FADM Date: 02/11/25 Loc: HO.ED Attending Dr: Ordering Physician: Perla Turner Date of Service: 02/12/25 Procedure(s): XR foot RT min 3V Accession Number(s): [id number] cc: Elizabeth Dunn MD; Perla Turner Reason [...] in OV> 02/12/25131 DD/ 9 TD/TT: 02/12/25129 Employment Manager: [facility] External Provider IMG XR PROCEDURES Edited Result - Final * CT Abdomen Pelvis w/ Contrast (02/11/2025 11:22 PM EDT) Anatomical Region Laterality Modality Body, Pelvis, Abdomen Computed T omography 02/11/2025 11:2 2 PM EDT Narrative 02/11/2025 11:24 PM EDT [address] [address] [address] Scan Report Signed Patient: Lelo Plata MR# : [id number] : 1960 Acct:[id number] Age/Sex: 64 / F ADM Date: 02/11/25 Loc: HO.ED Attending Dr: Ordering Physician: Perla Turner Date of Service: 02/11/25 Procedure(s): CT abdomen pelvis w IV con Accession Number(s): [id number] cc: Elizabeth Dunn MD; Perla Turner Report Number: [id number]: Total DLP = 0.00 mGy-cm Reason for [...] in OV> 02/11/252322 DD/ 21 TD/TT: 02/11/252321 Employment Manager: Procedure Note Donotuseinterpreter, Image - 02/11/[address] [address] [address] Scan Report Signed Patient: Lelo Plata RMR# : [id number] : 1960cct:[id number] Age/Sex: 64 / FADM Date: 02/11/25 Loc: HO.ED Attending Dr: Ordering Physician: Perla Turner Date of Service: 02/11/25 Procedure(s): CT abdomen pelvis w IV con Accession Number(s): [id number] cc: Elizabeth Dunn MD; Perla Turner Report Number: [id number]: Total DLP = 0.00 mGy-cm Reason for Exam: severe constipation SCAN AT 2200 *no iv 4* CLINICAL HISTORY: severe constipation SCAN AT 2200 *no iv 2203* CT abdomen and pelvis with contrast Comparison: [...] in OV> 02/11/252322 DD/ 21 TD/TT: 02/11/252321 Employment Manager: us [facility] External Provider IMG CT PROCEDURES Edited Result - Final * Urinalysis, Complete, with Reflex to Culture (02/11/2025 10:50 PM EDT) Color Urine Yellow [facility] Appearance Urine Clear [facility] PH 5.0 5.0 - 9.0 [facility] Glucose Urine UA Negative Negative mg/dL [facility] Urine Blood Negative Negative [facility] Specific Damon - Urine 1.020 1.005 - 1.025 [facility] Urine Protein Negative Neg-Trace mg/dL [facility] Urine Ketones Negative Negative mg/dL [facility] Nitrite Urine Negative Negative [facility] Leukocyte Esterase Urine Negative Negative [facility] RBC Urine 0-2 0 - 2 /HPF [facility] Urine WBC 0-5 0 - 5 /HPF [facility] Urine Squamous Epithelial Cell 0-2 0 - 2 /HPF [facility] Urine Bacteria None Seen None Seen [facility] Hyaline Casts, Urine 0-2 0 - 2 /LPF [facility] 02/11/2025 10:5 0 PM EDT 02/11/2025 10:54 PM EDT Narrative [facility] - 02/11/2025 11:05 PM EDT 2248Urine, Clean Catch us Generic External Data Provider LAB URINE ORDERAB LES Final Result Performing Organization Address City/State/[facility] Co de Phone Number [facility] [address] [place] [phone] * XR KUB and Upright 2 Views (02/11/2025 7:34 PM EDT) Anatomical Region Laterality Modality Radiographic Delilah ging 02/11/2025 7:34 PM EDT Narrative 02/11/2025 7:35 PM EDT [address] [address] XRay Report Signed Patient: Lelo Plata MR# : [id number] : 1960 Acct:[id number] Age/Sex: 64 / F ADM Date: 02/11/25 Loc: HO.ED Attending Dr: Ordering Physician: Perla Turner Date of Service: 02/11/25 Procedure(s): XR KUB Accession Number(s): [id number] cc: Elizabeth Dunn MD; Perla Turner Reason for Exam: constipation CLINICAL HISTORY: constipation Abdominal radiographs Comparison: CT/REG/IL/SR - CT ABDOMEN PELVIS W IV CON [...] in OV> 02/11/251933 DD/ 33 TD/TT: 02/11/251933 Employment Manager: Procedure Note Donotuseinterpreter, Image - 02/11/[address] [address] XRay Report Signed Patient: Lelo Plata RMR# : [id number] : 2Acct:[id number] Age/Sex: 64 / FADM Date: 02/11/25 Loc: HO.ED Attending Dr: Ordering Physician: Perla Turner Date of Service: 02/11/25 Procedure(s): XR KUB Accession Number(s): [id number] cc: Elizabeth Dunn MD; Perla Turner Reason for Exam: constipation CLINICAL HISTORY: constipation Abdominal radiographs Comparison: CT/REG/IL/SR - CT ABDOMEN PELVIS W IV CON [...] in OV> 02/11/251933 DD/ 33 TD/TT: 02/11/251933 Employment Manager: us [facility] External Provider IMG XR PROCEDURES Final Result * VASC US Lower Extremity Venous Duplex Bilateral (02/07/2025 9:39 PM EDT) 02/07/2025 9:39 PM EDT Narrative [facility] - 02/07/2025 9:41 PM EDT [facility] [address] [place] [address] Ultrasound Report Signed Patient: Lelo Plata MR# : [id number] : 1960 Acct:[id number] Age/Sex: 64 / F ADM Date: 02/07/25 Loc: .ED Attending Dr: Ordering Physician: Kaitlynn Wang Date of Service: 02/07/25 Procedure(s): US venous duplex LE Accession Number(s): [id number] cc: Elizabeth Dunn MD; Kaitlynn Wang Reason for Exam: pain swelling LEs CLINICAL HISTORY: pain swelling LEs Venous duplex ultrasound bilateral lower extremity Comparison: US/SR - US VENOUS DUPLEX [facility] - 11/12/23 18:09 EDT Findings: The visualized [...] in OV> 02/07/252139 DD/ 38 TD/TT: 02/07/252138 Employment Manager: Procedure Note Donotuseinterpreter, Image - 02/07/[address] [address] Ultrasound Report Signed Patient: Lelo Plata RMR# : [id number] : 2Acct:[id number] Age/Sex: 64 / FADM Date: 02/07/25 Loc: HO.ED Attending Dr: Ordering Physician: Kaitlynn Wang Date of Service: 02/07/25 Procedure(s): US venous duplex LE Accession Number(s): [id number] cc: Elizabeth Dunn MD; Kaitlynn Wang Reason for Exam: pain swelling LEs CLINICAL HISTORY: pain swelling LEs Venous duplex ultrasound bilateral lower extremity Comparison: US/SR - US VENOUS DUPLEX LE - 11/12/23 18:09 EDT Findings: The visualized [...] in OV> 02/07/252139 DD/ 38 TD/TT: 02/07/252138 Employment Manager: us [facility] External Provider CV VASC ULAR PROCEDURES Final Result [facility] [address] [place] [phone] * NT-proBNP (02/07/2025 8:52 PM EDT) NT-proBNP 36.0 <300 pg/mL [facility] Comment:Reference Range:Age Group (years) NT-proBNP (pg/ml) InterpretationAll <300 Negative: HF unlikelyFor patients presenting to the ED with clinical suspicion ofnew onset or worsening HF, see below:18 to <50 >299.9 to <450.0 Grayzone: [id number] to 75 >299.9 to <900.0 other causes of>75 >299.9 to <1800.0 NT-proBNP to <50 >449.9 Positive: HF [id number] >899.9>75 >1799.9Note: Elevated NT-proBNP levels should be interpreted inthe context of other clinical information. 02/07/2025 8:52 PM EDT 02/07/2025 8:57 PM EDT us Generic External Data Provider LAB BLOOD ORDERAB LES Final Result [facility] [address] [place], [place] [phone] * (ABNORMAL) CBC auto differential (02/07/2025 8:52 PM EDT) White Blood Count 9.9 4.8 - 10.8 X10*3/uL [facility] Red Blood Count 4.35 4.20 - 5.50 X10*6/uL [facility] Hemoglobin 10.4(L) 12.0 - 16.0 g/dl [facility] Hematocrit 32.5(L) 37.0 - 47.0 % [facility] Mean Corpuscular Volume 74.7(L) 80.0 - 98.0 fL [facility] Mean Corpuscular Hemoglobin 23.9(L) 27.0 - 33.0 pg [facility] Mean Corpuscular HGB Conc 32.0 31.0 - 35.0 g/dl [facility] Red Cell Distribution Width 18.5(H) 11.0 - 16.0 % [facility] Platelet Count 224 160 - 400 X10*3/uL [facility] Mean Platelet Volume 11.2 9.4 - 12.3 fL [facility] Neutrophils Percent Auto 63.2 45 - 73 % [facility] Imm Gran Pct Auto 0.5(H) 0.0 - 0.4 % [facility] Lymphocytes Percent Auto 27.0 20 - 40 % [facility] Monocytes Percent Auto 7.7 2 - 11 % [facility] Eosinophils Percent Auto 1.4 0 - 4 % [facility] Basophils Percent Auto 0.2 0 - 2 % [facility] NRBC Pct Auto 0.0 0.0 - 0.2 /100WBC [facility] Neutrophils Absolute Auto 6.2 2.0 - 8.3 x10*3/uL [facility] Imm Gran Abs Auto 0.05(H) 0.00 - 0.03 X10*3/uL [facility] Lymphocytes Absolute Auto 2.7 1.2 - 4.9 X10*3/uL [facility] Monocytes Absolute Auto 0.8 0.1 - 1.2 X10*3/uL [facility] Eosinophils Absolute Auto 0.1 0.0 - 0.4 X10*3/uL [facility] Basophils Absolute Auto 0.0 0.0 - 0.2 X10*3/uL [facility] NRBC Abs Auto 0.000 0.0 - 0.012 X10*3/uL [facility] 02/07/2025 8:52 PM EDT 02/07/2025 8:57 PM EDT us Generic External Data Provider LAB BLOOD ORDERAB LES Final Result Performing Organization Address [facility] de Phone Number [facility] [address] [place] [phone] * (ABNORMAL) Sed Rate by Modified Caleren (02/07/2025 8:52 PM EDT) Erythrocyte Sedimentation Rate 25(H) 0 - 20 MM/HR [facility] Comment:Patients with polycy themia and many hemoglobin abnormalitiesmay have depressed sed rates whereas patients with anemiamay have elevated sed rates. 02/07/2025 8:52 PM EDT 02/07/2025 8:57 PM EDT us Generic External Data Provider LAB BLOOD ORDERAB LES Final Result Performing Organization Address [facility] Co de Phone Number [facility] [address] [place] [phone] * (ABNORMAL) C-reactive Protein (02/07/2025 8:52 PM EDT) [facility] C Reactive Protein 1.09(H) < or = 0.50 mg/dL [facility] 02/07/2025 8:52 PM EDT 02/07/2025 8:57 PM EDT Generic External Data Provider LAB BLOOD ORDERAB LES Final Result Performing Organization Address [facility]/ZIP Co de Phone Number [facility] [address] [place] [phone] * Magnesium (02/07/2025 8:52 PM EDT) [facility] Magnesium 2.1 1.6 - 2.6 mg/dL [facility] 02/07/2025 8:52 PM EDT 02/07/2025 8:57 PM EDT Generic External Data Provider LAB BLOOD ORDERAB LES Final Result Performing Organization Address [facility]/ZIP Co de Phone Number [facility] [address] [place] [phone] * Comprehensive Metabolic Panel (02/07/2025 8:52 PM EDT) [facility] Sodium 143 135 - 145 mmol/L [facility] Potassium 4.5 3.3 - 5.1 mmol/L [facility] Chloride 103 96 - 108 mmol/L [facility] Carbon Dioxide 28 22 - 29 mmol/L [facility] Anion Gap 17 12 - 20 [facility] Urea Nitrogen (BUN) 16 9 - 16 mg/dL [facility] Creatinine, Serum 1.06 0.5 - 1.4 mg/dL [facility] Creatinine Clr Calc Pharmacy 62.1 [facility] Comment:Provided height and weight: 165.1 cm,93.44 kg.eGFR (calculated from the MDRD study equation) and eCrCl(calculated from the Cockcroft-Gault equation) are based ondifferent parameters and may not yield comparable results.If eCrCl result is absurd, please check patient'sheight/weight. Estimated Glomerular Filt Rate 53 [facility] Comment:Chronic Kidney Disea se: Estimated GFR < 60 mL/min/1.45y3Qcdvvm Kidney Disease: Estimated GFR < 15 mL/min/1.73m2 Glucose 77 60 - 115 mg/dL [facility] Calcium 9.2 8.4 - 10.2 mg/dL [facility] Bilirubin, Total 0.2 0.0 - 1.0 mg/dL [facility] Aspartate Amino Transferase 19 5 - 31 U/L [facility] Alanine Aminotransferase 8 0 - 31 U/L [facility] Total Protein 7.1 6.5 - 8.0 g/dL [facility] Albumin Level 4.2 3.5 - 5.0 g/dL [facility] Alkaline Phosphatase 72 39 - 117 U/L [facility] 02/07/2025 8:52 PM EDT 02/07/2025 8:57 PM EDT us Generic External Data Provider LAB BLOOD ORDERAB LES Final Result [facility] [address] [place] [phone] * POCT Hgb A1c (01/26/2025 3:42 PM EDT) Pathologist [facility] Hemoglobin A1C 5.6 4.0 - 5.7 % QC Media Lot # [id number] Lot# Expiration Date Blood 01/26/2025 3:42 PM EDT us Elizabeth [...] PM EDT Narrative 02/10/2024 5:26 PM EDT [facility] [address] [place] [address] Mammography Report Signed Patient: Lelo Watters MR#: [id number] : 1960 Acct:[id number] Age/Sex: 63 / F ADM Date: 02/10/24 Loc: HO.MAMMO Attending Dr: Elizabeth Goncalves MD Ordering Physician: Elizabeth Dunn MD Results: 1Negative Date of Service: 02/10/24 Follow Up: 1 Year From [facility] Mammogram Procedure(s): MM tomosynthesis diagnostic BI Accession Number(s): [id number] cc: Elizabeth Dunn MD EXAMINATION: MM DIAGNOSTIC [...] 02/10/24 1724 DD/ 1400 TD/TT: 02/10/24 1410 Employment Manager: Procedure Note Donotuseinterpreter, Image - 02/10/2024 [facility] [address] [place] [address] [place] [address] Mammography Report Signed Patient: Lelo Watters RMR#: [id number] : [id number]:[id number] Age/Sex: 63 / FADM Date: 02/10/24 Loc: HO.MAMMO Attending Dr: Elizabeth Goncalves MD Ordering Physician: Elizabeth Dunn MDResults: 1Negative Date of Service: 02/10/24Follow Up: 1 Year From Orig inal Mammogram Procedure(s): MM tomosynthesis diagnostic BI Accession Number(s): [id number] cc: Elizabeth Dunn MD EXAMINATION: MM DIAGNOSTIC [...] 02/10/24 1724 DD/ 1400 TD/TT: 02/10/24 1410 Employment Manager: us Elizabeth Goncalves MD IMG BI PROCEDURES Patrick wendie Result - Final * Albumin, Random Urine W/Creatinine (01/05/2024 8:25 AM EDT) Creatinine, Urine 223.33 mg/dL [facility] Microalbumin Urine 9.0 mg/L [facility] Microalbum Creatinine Ratio Ur 4.0 <30 ug/mg cr [facility] Comment:Albumin/Creatinine R atio Reference Ranges: Normal: < 30 ug/mg creatinine Microalbuminuria: 30 - 300 ug/mg creatinineClinical Albuminuria: > 300 ug/mg creatinine Urine (Urine, Random) 01/05/2024 8:25 AM EDT 01/05/2024 11:48 AM EDT us Elizabeth Goncalves MD LAB URINE ORDERABLES Final Result [facility] [address] [place] [phone] * (ABNORMAL) Lipid Panel with Reflex to Direct LDL (01/05/2024 8:22 AM EDT) Triglycerides 180(H) <150 mg/dL [facility] Comment:Desirable Triglyceri de: less than 150 mg/dLBorderline High Triglyceride 150-199 mg/dLHigh Triglyceride: 200-499 mg/dLVery High Triglyceride: greater than or equal to 5OO mg/dL Cholesterol 240(H) <200 mg/dL [facility] Comment:Desirable Cholestero l: less than 200 mg/dLBorderline High Cholesterol: 200-239 mg/dLHigh Cholesterol: greater than 239 mg/dL LDL Cholesterol Calculated 138(H) <100 mg/dL [facility] Comment:Desirable LDL: less than 100 mg/dLNear Optimal/Above Optimal LDL: 110- 129 mg/dLBorderline High LDL: 130-159 mg/dLHigh LDL: 160-189 mg/dLVery High LDL: greater than or equal to 190 mg/dL HDL Cholesterol 66 >40 mg/dL [facility] Comment:Desirable HDL: great er than 40 mg/dL Note: This HDL assay may give artificially low results in patients with liver disease. Blood 01/05/2024 8:22 AM EDT 01/05/2024 11:52 AM EDT Elizabeth Goncalves MD LAB BLOOD ORDERABLES Final Result Performing Organization Address City/[facility]/ZIP Co de Phone Number [facility] [address] [place] [address] [phone] * Hm Colonoscopy (12/10/2022) Historical Provider HEALTH MAINTENANCE Final Result * HEPATITIS C AB W/REFL TO HCV RNA, QN, PCR (10/23/2020 10:08 AM EDT) HEPATITIS C ANTIBODY NON-REACT [facility] NON-REACT [facility] INDEX 0.01 <1.00 [facility] Comment: HCV antibody was non-reactive. There is no laboratory evidence of HCV infection. In most cases, no further action is required. However, if recent HCV exposure is suspected, a test for HCV RNA (test code 29602) is suggested. For additional information please refer to http://education.7billionideas.Eatwave/faq/ZAZ07m0 (This link is being provided for informational/ educational purposes only.) 10/23/2020 10:0 8 AM EDT us Elizabeth Goncalves MD HISTORICAL/NON ORDERA BLE LABS Final Result Performing Organization Address City/[facility]/ZIP Co de Phone Number [facility] [address] * HIV 1/2 ANTIGEN/ANTIBODY,FOURTH GENERATION W/RFL (10/23/2020 10:08 AM EDT) HIV-1/2 ANTIGEN AND ANTIBODIES, 4TH GENERATION W/ REFLEX NON-REACT JOSE NON-REACT JOSE [facility] Comment: HIV-1 antigen [...] purpose. For additional information please refer to http://education.bigtincan/faq/JXQ256 (This link is being provided for informational/ educational purposes only.) The performance of this assay has not been clinically validated in patients less than 2 years old. 10/23/2020 10:0 8 AM EDT Elizabeth Goncalves MD LAB BLOOD ORDERABLES Final Result [facility] [address] from Last 3 Months or Most Recently Relevant to Health Maintenance [place] [place] [address] C3 Care Teams Digital Forensic Analyst Relationship Specialty Start Date End Date Eilzabeth Dunn MD [address] [place] [phone] PCP - General Family Medicine 03/17/18 Kai Bowden, MATT [address] [place] [phone] Registered Nurse Family Medicine 02/08/25 Manuela Melendez 02/08/25 Thao Barnhart Butadiene Compressor OperatorCushion Filler 02/07/23
--- OUTSIDE RECORDS SUMMARY | 2025-02-15 09:51 | XMS_ITS | Encounter Summary ---
Author Organization [employer] Address [address] [place] [address] [address] [place] [address] Care Team Providers Care Film Replacement Orderer Name Role Phone Elizabeth Dunn MD Primary Care Provide r Kai Bowden RN Unavailable [phone] Manuela Melendez Unavailable Reason for Visit * Reason Onset Date Comments Med Refill 12/17/2022 Encounter Details Date Type Department Care Team (Late st Contact Info) Description 12/17/2022 Telephone [facility] MED[facility] [address] [place] [address] Elizabeth Dunn MD [address] [place], [place] [phone] Med Refill Social History Tobacco Use Types [...] 2:30 PM EST Office Visit [facility] OPTOMETRY [address] [place], [place] [phone] Mulu Osman, OD [address] [place] [address] documented as of this encounter Visit Diagnoses Not on filedocumented in this encounter Additional Health Concerns Assessment Noted Time PHQ-9 Depression Total Score: 0 08/03/19 23 3:13 PM EDT documented as of this encounter Care Teams Film Replacement Orderer Relationship Specialty Start Date End Date Elizabeth Dunn MD [address] [place], [place] [phone] PCP - General Family Medicine 03/17/18 Kai Bowden, MATT [address] [place] [phone] Registered Nurse Family Medicine 02/08/25 Manuela Melendez 02/08/25 Thao Barnhart Scrap Kettle TenderZinc Furnace Charger 02/07/23 documented as of this encounter
--- OUTSIDE RECORDS SUMMARY | 2025-02-15 09:51 | XMS_ITS | Patient Health Record ---
Author Organization [facility] Address [address] [place] [address] Care Team Providers Care Dental Office Manager Name Role Phone SHAHRZAD ENRIQUE Primary Care Provider Fracisco Cruz [phone] Allergies Allergen (clinical drug ingredient) Drug/Non Drug Allergy documented on EMR Reaction Allergy Type Onset Date Status quetiapine Seroquel Unknown Drug Allergy Active Morphine Sulfate Unknown Drug Allergy Active Reason [...] Problem Status W/U Status Risk Notes Problem 331202990 Encounter for screening for malignant neoplasm of colon (Z12.11) Active confirmed Problem 671121033 History of adenomatous polyp of colon (Z86.010) Active confirmed Problem Screening for malignant neoplasm of rectum (082022250) Encounter for screening for malignant neoplasm of rectum (Z12.12) Active confirmed Problem 566308457 Family history of colon cancer (Z80.0) Active confirmed Problem 627481710 Long-term use of high-risk medication (Z79.899) Active confirmed Plan Of Treatment Pending Test Test Name Order Date GI BIOPSY 02/05/2016 Future Test Test Name Order Date COLONOSCOPY 10/31/2015 Insurance Providers Payer Name Payer Address Payer Phone Subscriber Number Group Number Insured Name Patient Relationship to Insured Coverage Start Date Coverage End Date [facility] [address] [facility] [place] [id number] MICHAEL SUGGS Self - patient is the insured MED[place]ID OF [place] [address] [place] [id number] MICHAEL SUGGS Self - patient is the insured Medical (General) History Medical History History ICD Code Colonoscopy 2004 and 2009 with small tub ular adenomas removed Depression/Anxiety Fibromyalgia Fluid retention Denies ND,DM,CVA,Lung disease,renal dise ase Surgical History Surgery Date(Month/Year) Laparoscopic gastric bypass in 2005 Breast reduction Panniculectomy Hysterectomy with left oophorectomy Neck surgery--for a disc
== END 2025-02-15 08:59 | disposition home or self-care (01) ==
LOC: HO.MAMMO 08:58
PROVIDERS: PCP Internal Medicine; Visit Provider Internal Medicine
DX: Z12.31 Encounter for screening mammogram for malignant neoplasm of breast (principal)
CPT/HCPCS: 77063; 77067

== ENCOUNTER → 2025-02-15 09:30 | Outpatient (BNV) | payer MEDICAID, SELFPAY | PROVIDERS: PCP Internal Medicine; Visit Provider Internal Medicine | DX: Z12.31 Encounter for screening mammogram for malignant neoplasm of breast (principal) | CPT/HCPCS: 77063; 77067 ==

== ENCOUNTER 2025-02-18 13:10 | Outpatient (REF) | payer MEDICAID, SELFPAY ==
[2025-02-18 17:14] LABS: Uric Acid 6.3 mg/dL (2.4-5.7)
== END 2025-02-18 13:11 | disposition home or self-care (01) ==
LOC: HO.HHCL 13:10
PROVIDERS: PCP Internal Medicine; Visit Provider Internal Medicine
DX: M79.671 Pain in right foot (principal); M79.672 Pain in left foot
CPT/HCPCS: 36415; 84550

== ENCOUNTER 2025-02-22 12:47 | Emergency (ER) | payer MEDICAID, SELFPAY ==
--- NOTE | ~2025-02-22 | XR_ITS ---
EXAMINATION: XR CHEST CLINICAL INFORMATION: chest pain/discomfort, dizziness COMPARISON: 07/01/2024. TECHNIQUE: Frontal view of the chest was obtained. FINDINGS: The cardiac, hilar, and mediastinal contours are normal. The lungs are clear bilaterally. Stable linear scarring in the right midlung. No pneumothorax or effusion. No focal osseous or soft tissue abnormality. Inferior cervical fusion device noted. Degenerative changes in both shoulder joints and throughout the spine. XR/XR chest 1V IMPRESSION: No active pulmonary disease. Electronically signed by: Kory Johnson MD 02/22/2025 02:53 PM EDT
[2025-02-22 12:50] VITALS: BP 158/92; PULSE 78; O2SAT 99
--- NOTE | 2025-02-22 12:52 | ECG_ITS ---
Test Reason : CHEST PAIN Blood Pressure : */* mmHG Vent. Rate : 79 BPM Atrial Rate : 79 BPM P-R Int : 178 ms QRS Dur : 94 ms QT Int : 414 ms P-R-T Axes : 49 -28 31 degrees QTcB Int : 474 ms Normal sinus rhythm Minimal voltage criteria for LVH, may be normal variant ( R in aVL ) Cannot rule out Anterior infarct (cited on or before 25-Jan-2024) Abnormal ECG When compared with ECG of 25-Jan-2024 21:07, No significant change was found Referred By: Generic ED Physician Electronically Signed By: Kristofer Pitts
[2025-02-22 13:02] VITALS: BP 123/68; PULSE 81; RESP 14; TEMP 36.8; O2SAT 96; BMI 33.8
[2025-02-22 13:27] LABS: MANUAL DIFF FLAG NO
[2025-02-22 13:29] LABS: Hematocrit 35.2 % (37.0-47.0); Hemoglobin 11.5 g/dl (12.0-16.0); Imm Gran Abs Auto 0.13 X10*3/uL (0.00-0.03); Imm Gran Pct Auto 1.1 % (0.0-0.4); Lymphocytes Absolute Auto 2.6 X10*3/uL (1.2-4.9); Mean Corpuscular HGB Conc 32.7 g/dl (31.0-35.0); Mean Corpuscular Hemoglobin 24.4 pg (27.0-33.0); Mean Corpuscular Volume 74.6 fL (80.0-98.0); NRBC Abs Auto 0.000 X10*3/uL (0.0-0.012); NRBC Pct Auto 0.0 /100WBC (0.0-0.2); Platelet Count 222 X10*3/uL (160-400); Red Blood Count 4.72 X10*6/uL (4.20-5.50); White Blood Count 11.8 X10*3/uL (4.8-10.8)
[2025-02-22 13:39] LABS: INTERNATIONAL NORM RATIO 1.0 (0.9-1.1); Prothrombin Time 11.0 SEC (10.9-12.4)
--- NOTE | 2025-02-22 14:21 | ED_ITS ---
HPI - Chest Pain General Chief Complaint: Chest Pain Stated Complaint: dizziness,headache,chest tightness Time Seen by Provider: 02/22/25 14:21 History of Present Illness ED Provider: Jaquelin RODGERS narrative: The patient is a 65-year-old woman who says that she has not felt well since about 09:00 this morning. She says her symptoms began when she felt a pounding sensation on the left side of her chest. She felt a sense of strong palpitations. This was followed by a sense of left-sided chest discomfort which radiated into her neck and into her head. Ultimately she felt very tired and ultimately called an ambulance and was brought to the hospital. At the time that I 1st examined her at around 15:00 her chest discomfort had subsided. She still feels very tired. No definite fever, sweats, chills. No cough or sputum. No pain or swelling in her legs. Related Data Home Medications ?Medication ?Instructions ?Recorded ?Confirmed aripiprazole 10 mg tablet 10 mg PO DAILY 01/23/2404/11 ferrous sulfate 325 mg (65 mg 325 mg PO DAILY 01/23/24 04/23/24 iron) tablet,delayed release trazodone 100 mg tablet 300 mg PO BEDTIME 01/23/24 1 06/24/23 venlafaxine 150 mg 300 mg PO QAM 01/23/2404/23 capsule,extended release 24 hr semaglutide (weight loss) 0.25 0.25 mg subcut QWEEK mg/0.5 mL subcutaneous pen injector (Wegovy) gabapentin 300 mg capsule 300 mg PO BID 08/12/24 Previous Rx's ?Medication ?Instructions ?Recorded clonazepam 1 mg tablet 1 mg PO BID 30 days #60 tabs 12/16/22 albuterol sulfate 90 mcg/actuation 1 inh inhalation QI D PRN shortness 08/12/23 aerosol inhaler of breath or wheezing #6.7 g kulwinder gabapentin 600 mg tablet 600 mg PO BEDTIME #30 tabs 0 08/12/23 hydrochlorothiazide 50 mg tablet 50 mg PO DAILY #30 ta bs 08/12/23 metformin 500 mg tablet,extended 500 mg PO BIDWM #60 t abs 08/12/23 release 24 hr polyethylene glycol 3350 17 gram 17 g PO DAILY #30 ea 08/12/23 oral powder packet sennosides 8.6 mg-docusate sodium 2 tab PO BID #120 ta bs 08/12/23 50 mg tablet (Senna Plus) acetaminophen 500 mg capsule 1,000 mg (2 x 500 mg) PO TID PRN 09/25/23 pain #90 caps methocarbamol 750 mg tablet 750 mg PO TID moderate yfn n & 09/25/23 muscle spasms #30 tabs lidocaine 5 % topical patch 1 patch topical DAILY #30 ea 11/13/23 ketorolac 10 mg tablet 10 mg PO Q8H 3 days #9 tabs 03/01/24 lidocaine 5 % topical patch 1 patch topical DAILY #30 ea 03/01/24 (Lidoderm) naloxone 4 mg/actuation nasal 4 mg intranasal Q2M PRN opioid 08/12/24 spray (Narcan) overdose #2 ea oxycodone 5 mg tablet 5 mg PO Q8H PRN pain 10 days #30 08/12/24 tabs doxycycline hyclate 100 mg capsule 100 mg PO BID #13 c aps 02/07/25 ketorolac 10 mg tablet 10 mg PO Q6H PRN pain #20 ta bs 02/07/25 docusate sodium 100 mg capsule 100 mg PO DAILY #30 cap s 02/12/25 (Colace) polyethylene glycol 3350 17 gram 17 g PO DAILY #30 ea 02/12/25 oral powder packet (Miralax) Allergies Allergy/AdvReac Type Severity Reaction Status Date / Time morphine (MORPHINE) Allergy Intermediate PALPITATIONS, Verified 02/22/25 13:04 tachicardia quetiapine (Seroquel) Allergy Intermediate Aggitation Verified 02/22/25 13:04 orphenadrine (ORPHENADRINE) AdvReac Intermediate RAPID Verified 02/22/25 13:04 HEART RATE Review of Systems 2 Review of Systems: Yes all other systems are reviewed and are negative PMFSH Past Medical History Medical History Weakness Arthritis History of brain inflammation Protrusion of lumbar intervertebral disc Tinnitus Venous insufficiency Osteoarthritis Loss of hair History of headache Fibromyositis Fatigue Hyperlipidemia HTN (hypertension) Continuous opioid dependence Sinusitis Anemia Anxiety Diverticulosis Chronic idiopathic constipation Migraine Asthma Depression Diabetes 1.5, managed as type 2 Fibromyalgia Surgical History History of back surgery History of esophagogastroduodenoscopy (EGD) S/P panniculectomy Hx of hysterectomy Hx of oophorectomy Hx of bilateral breast reduction surgery H/O colonoscopy History of pubovaginal sling Gastric bypass status for obesity Family History Family History Mother Colon cancer Social History Social History Household Members: Spouse and Children Household Members Other:: lives alone Housing: House Are you a primary patient care assistant to a significant other at home: No Do you presently have visiting nurse or other home services: 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) Alcohol intake: never Comment: IV infiltrated Patient Tobacco Use Status: Never used Tobacco Second Hand Smoke Exposure: No Advance Directives: Yes Advance Directives on File: Yes Advance Directives Date on File: 07/24/23 service: No Current occupational status: disabled Sexual orientation: Straight/Heterosexual Gender identity: Female Physical Exam 2 Vital Signs: Vital Signs: Last Vital Signs Temp 98.3 F 02/22/25 13:02 Pulse 81 02/22/25 13:02 Resp 14 02/22/25 13:02 BP 123/68 02/22/25 13:02 Pulse Ox 96 02/22/25 13:02 O2 Del Method Room Air 02/22/25 13:02 BMI result Body Mass Index 33.8 Const: Other: The patient is a chronically ill-appearing 65-year-old who was awake and alert. She does not appear obviously acutely ill in any way. She did not seem in obvious pain or respiratory distress. Mental status was normal. Orientation/consciousness: patient oriented x3 HEENT: Other: The face is symmetrical. ?Mucous membranes moist. Eyes: Other: Pupils are round equal, conjunctivae are clear, extraocular movements intact Neck: Neck: Yes normal visual inspection, Yes full ROM, Yes no lymphadenopathy and Yes no JVD Chest: Other: There is some left-sided chest wall tenderness. Resp: Effort & Inspection: normal respiratory effort Auscultation: clear to auscultation bilaterally Cardio: Rate: regular rate Rhythm: regular rhythm Heart sounds: S1 normal heart sound present and S2 normal heart sound present GI: Other: Abdomen is soft and nontender Skin: Other: The skin is dry and unremarkable Neuro: General: patient oriented x3, tone normal, moves all extremities, no focal motor deficits and CN's II-XI intact bilaterally Extrem: Other: There is no calf swelling or tenderness. No asymmetry. No peripheral edema. Medications Administered Discontinued Medications Generic Name Dose Route Start Last Admin Trade Name Bola PRN Reason Stop Dose Admin Diphenhydramine HCl 25 mg 02/22/25 15:13 02/22/25 15:51 Diphenhydramine Hcl 50 Mg/Ml Vial IVPUSH 02/22/25 15:14 25 mg ONCE ONE Administration Sodium Chloride 1,000 mls @ 999 mls/hr 02/22/25 15:15 02/22/25 16:52 Ns IV 02/22/25 16:15 Infused .Q1H1M HARLEY Infusion Ketorolac Tromethamine 15 mg 02/22/25 15:12 02/22/25 15:51 Ketorolac Tromethamine 15 Mg/Ml Vial IVPUSH 02/22/25 15:13 15 mg ONCE ONE Administration Metoclopramide HCl 10 mg 02/22/25 15:13 02/22/25 15:51 Metoclopramide Hcl 10 Mg/2 Ml Vial IVPUSH 02/22/25 15:14 10 mg ONCE ONE Administration Medical Decision Making Medical Decision Making MDM Narrative: The patient presents with very nonspecific symptoms of palpitations, chest pain, and headache. She has a history of frequent emergency room visits. Her description of her symptoms does not sound highly suggestive of either an acute coronary syndrome or pulmonary embolism or other acute vascular process. She has a an EKG that is unchanged. She is in sinus rhythm. She has a negative chest x-ray. Her troponin drawn at 14:00 was undetectable. Since her symptoms began at 09:00 this morning I do not think an additional troponin is necessary given her normal EKG and my low suspicion for an acute coronary syndrome. Overall I think this might be more of a migraine syndrome. She was treated symptomatically with ketorolac, diphenhydramine, and metoclopramide. Also IV fluids. She felt much better. She was comfortable being discharged at that point. Lab Data 02/22/25 13:22 02/22/25 14:22 Labs: Lab Results 10/14/25 10/14/25 Range/Units 13:22 14:22 WBC 11.8 H (4.8-10.8) X10*3/uL RBC 4.72 (4.20-5.50) X10*6/uL Hgb 11.5 L (12.0-16.0) g/dl Hct 35.2 L (37.0-47.0) % MCV 74.6 L (80.0-98.0) fL MCH 24.4 L (27.0-33.0) pg MCHC 32.7 (31.0-35.0) g/dl RDW 19.5 H (11.0-16.0) % Plt Count 222 (160-400) X10*3/uL MPV 11.7 (9.4-12.3) fL Immature Gran % (Auto) 1.1 H (0.0-0.4) % Neut % (Auto) 67.7 (45-73) % Lymph % (Auto) 21.6 (20-40) % [place] % (Auto) 8.5 (2-11) % Eos % (Auto) 0.8 (0-4) % Baso % (Auto) 0.3 (0-2) % Lymph # (Auto) 2.6 (1.2-4.9) X10*3/uL [place] # (Auto) 1.0 (0.1-1.2) X10*3/uL Eos # (Auto) 0.1 (0.0-0.4) X10*3/uL Baso # (Auto) 0.0 (0.0-0.2) X10*3/uL Abs Immat Gran (auto) 0.13 H (0.00-0.03) X10*3/uL Absolute Neuts (auto) 8.0 (2.0-8.3) x10*3/uL Absolute Nucleated RBC 0.000 (0.0-0.012) X10*3/uL Nucleated RBC % (auto) 0.0 (0.0-0.2) /100WBC PT 11.0 (10.9-12.4) SEC INR 1.0 (0.9-1.1) Sodium 139 (135-145) mmol/L Potassium 4.0 (3.3-5.1) mmol/L Chloride 106 (96-108) mmol/L Carbon Dioxide 22 (22-29) mmol/L Anion Gap 15 (12-20) BUN 20 H (9-16) mg/dL Creatinine 0.85 (0.5-1.4) mg/dL Estim Creat Clear Calc 76.0 Estimated GFR > 60 Random Glucose 60 (60-115) mg/dL Calcium 8.6 (8.4-10.2) mg/dL Troponin I High Sens < 2.7 (<3.5-17.0) ng/L Independent Interpretation I performed an independent interpretation of an: EKG Interpretation: EKG at 1307 shows normal sinus rhythm at 79 beats per minute. There are no acute ischemic changes. It is a EKG that is similar to her previous EKG. Discharge Plan Discharge Clinical Impression: Palpitations, Chest discomfort, Headache Patient Disposition: Home, Self-Care Additional Instructions: Your testing today was very reassuring. Please plan on following up with your regular doctor to discuss this episode further. Call your doctor's office in the morning. Continue your regular medications. Return to the emergency room if you feel significantly worse. Prescriptions: No Action clonazepam 1 mg tablet 1 mg PO BID 30 Days Qty: 60 0RF albuterol sulfate 90 mcg/actuation HFA aerosol inhaler 1 inh inhalation QID PRN (Reason: shortness of breath or wheezing) Qty: 6.7 0RF gabapentin 600 mg tablet 600 mg PO BEDTIME Qty: 30 0RF hydrochlorothiazide 50 mg tablet 50 mg PO DAILY Qty: 30 0RF polyethylene glycol 3350 17 gram powder in packet 17 g PO DAILY Qty: 30 0RF sennosides-docusate sodium [Senna Plus] 8.6-50 mg Tablet 2 tab PO BID Qty: 120 0RF metformin 500 mg Tablet Extended Release 24 Hr 500 mg PO BIDWM Qty: 60 0RF lidocaine 5 % adhesive patch,medicated 1 patch topical DAILY Qty: 30 0RF Rx Instructions: leave on most painful area for up to 12 hrs ketorolac 10 mg tablet 10 mg PO Q8H 3 Days Qty: 9 0RF lidocaine [Lidoderm] 5 % adhesive patch,medicated 1 patch topical DAILY Qty: 30 0RF Rx Instructions: leave on most painful area for up to 12 hrs doxycycline hyclate 100 mg capsule 100 mg PO BID Qty: 13 0RF ketorolac 10 mg tablet 10 mg PO Q6H PRN (Reason: pain) Qty: 20 0RF Rx Instructions: maximum total duration of 5 days from all oral, intranasal, or parenteral formulations. Patient received an intramuscular dose of Toradol here in the emergency room. polyethylene glycol 3350 [Miralax] 17 gram powder in packet 17 g PO DAILY Qty: 30 0RF docusate sodium [Colace] 100 mg capsule 100 mg PO DAILY Qty: 30 0RF Wegovy 0.25 mg/0.5 mL pen injector 0.25 mg subcut QWEEK gabapentin 300 mg capsule 300 mg PO BID oxycodone 5 mg tablet 5 mg PO Q8H PRN (Reason: pain) 10 Days Qty: 30 0RF Rx Instructions: Partial Fill upon patient request. naloxone [Narcan] 4 mg/actuation spray,non-aerosol 4 mg intranasal Q2M PRN (Reason: opioid overdose) Qty: 2 0RF Rx Instructions: spray 1 dose into ONE nostril; alternate nostrils w each dose until help arrives methocarbamol 750 mg tablet 750 mg PO TID Qty: 30 0RF acetaminophen 500 mg capsule 1,000 mg PO TID PRN (Reason: pain) Qty: 90 0RF aripiprazole 10 mg tablet 10 mg PO DAILY venlafaxine 150 mg capsule,extended release 24hr 300 mg PO QAM trazodone 100 mg tablet 300 mg PO BEDTIME ferrous sulfate 325 mg (65 mg iron) tablet,delayed release (DR/EC) 325 mg PO DAILY Referrals: Elizabeth Dunn MD [Primary Care Provider, Internal Medicine] Print Language: S[place]ome[place]
[2025-02-22 14:48] LABS: Anion Gap 15 (12-20); Blood Urea Nitrogen 20 mg/dL (9-16); Calcium 8.6 mg/dL (8.4-10.2); Carbon Dioxide 22 mmol/L (22-29); Chloride 106 mmol/L (96-108); Creatinine Clr Calc Pharmacy 76.0; Estimated Glomerular Filt Rate > 60; Potassium 4.0 mmol/L (3.3-5.1); Sodium 139 mmol/L (135-145)
[2025-02-22 14:54] LABS: Troponin-I High Sensitivity < 2.7 ng/L (<3.5-17.0)
--- OUTSIDE RECORDS SUMMARY | 2025-02-22 16:36 | XMS_ITS | Clinical Summary ---
Author Organization [employer] Address [address] [facility] [facility] [address] [place] [address] Care Team Providers Care Vice President Of Development Name Role Phone Elizabeth Dunn MD Primary Care Provide r Kai Bowden RN Unavailable Manuela Melendez Unavailable Allergies Active Allergy Reactions [...] D EN LA MA JESSICA 023 Active hydroCHLOROthiazi de (HYDRODiuril) 50 MG tabletIndications :Primary hypertension TAKE 1 TABLET BY MOUTH EVERY MORNING 90 tablet 3 025 Active metFORMIN XR (Glucophage-XR) 500 MG 24 hr tabletIndications :Type 2 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 (HCC) TAKE 1 TABLET BY MOUTH TWICE A DAY 180 tablet 1 025 Active lidocaine (Lidoderm) 5 % patchIndications: Chronic bilateral low back pain with left-sided sciatica APPLY 1 PATCH TOPICALLY ONCE PER DAY. REMOVE & DISCARD PATCH WITHIN 12 HOURS OR DIRECTED BY . 30 patch 1 Active pregabalin (Lyrica) 225 MG capsuleIndication s:Chronic bilateral low back pain with left-sided sciatica TAKE 1 CAPSULE BY MOUTH TWICE A DAY 60 capsule 2 Active ferrous sulfate 325 (65 Fe) MG [...] at bedtime Active Diclofenac Sodium 1 % gelIndications:Fi bromyalgia Apply on affected area twice a day 350 g 3 025 Active Tirzepatide (Mounjaro) 10 MG/0.5ML solution auto-injectorIndi cations:Type 2 diabetes mellitus without complication, without long-term current use of insulin (HCC) Inject 10 mg under the skin 1 (one) time per week. 2 mL 025 Active FREESTYLE LITE test stripIndications: Type 2 diabetes mellitus without complication, without long-term current use of insulin (HCC) Use to test blood sugar 1 times daily 100 each 12 025 2025 Active Lancets miscIndications:T ype 2 diabetes mellitus without complication, without long-term current use of insulin (HCC) Use to test blood sugar 1 times daily 100 each 1 025 Active Alcohol Swabs 70 % padsIndications:T ype 2 diabetes mellitus without complication, without long-term current use of insulin (HCC) Use to test blood sugar 1 times daily 100 each 025 Active Blood Glucose Monitoring Suppl (FreeStyle Lite) w/Device kitIndications:Ty pe 2 diabetes mellitus without complication, without long-term current use of insulin (HCC) USE TO TEST BLOOD SUGAR 1 TIMES DAILY 1 kit 025 Active Tirzepatide (Mounjaro) 12.5 MG/0.5ML solution auto-injectorIndi cations:Type 2 diabetes mellitus without complication, without long-term current use of insulin (HCC) Inject 12.5 mg under the skin 1 (one) time per week. 2 mL 2 Active predniSONE (Deltasone) 10 MG tabletIndications :Right foot pain,Left foot pain Take 1 tablet [...] per day for 2 days. 30 tablet 2024 Active Diclofenac Sodium 1 % gelIndications:Fi bromyalgia Apply on affected area twice a day 350 g 3 023 2024 Discontinued(R eorder (will not trigger notification to Pharmacy)) oxyCODONE (Roxicodone) 5 MG immediate release tablet Take 5 mg by mouth every 6 (six) hours if needed for severe pain. 2024 Discontinued methocarbamol (Robaxin) 500 MG tabletIndications :Chronic midline low back pain with left-sided sciatica TAKE 2 TABLETS (1,000 MG) BY MOUTH EVERY 8 (EIGHT) HOURS IF NEEDED FOR MUSCLE SPASMS 168 tablet 025 2024 Discontinued Tirzepatide-Weigh t Management (Zepbound) 10 MG/0.5ML solution auto-injectorIndi cations:Class 2 severe obesity with serious comorbidity and body mass index (BMI) of 35.0 to 35.9 in adult, unspecified obesity type Inject 0.5 mL (10 mg) under the skin 1 (one) time per week. 2 mL 025 2024 Discontinued cyclobenzaprine (Flexeril) 5 MG tablet 1 tablet. 2024 Discontinued oxyCODONE-acetami nophen (Percocet) 10-325 MG tablet 1 tablet in the morning and 1 tablet at noon and 1 tablet in the evening and 1 tablet before bedtime. 2024 Discontinued Blood Glucose Monitoring Suppl (Learn[employer] [place] Lite) w/Device kitIndications:Ty pe 2 diabetes mellitus without complication, without long-term [...] left foot, she is being manage by pain/technical support specialist (medications prescribed by specialist only) Chronic bilateral low back pain with left-sided sciatica 08/20/2023 Assessment & Plan (01/07/2024 2:12 PM EDT): I will increase gabapentin to 600mg TID and refer her back to pain management Pelvic pain 08/20/2023 Assessment & Plan (08/21/2023 12:20 PM EDT): EN[employer]IL ENGINEER referral as per patient's request Preop examination [...] Acute nontraumatic kidney injury 01/17/2021 Benzodiazepine dependence ([facility]/HCC) 10/14/2017 Chronic idiopathic constipation 04/08/2017 Chronic left-sided [...] done at the hospital no opioids only denny), patient understands and agrees with plan Assessment [...] Diagnosed Date Resolved Date Continuous opioid dependence ([facility]/HCC) 04/08/2017 02/02/2025 Encounters Date Type Department Care Team Description 02/22/2025 Orders Only GENERIC EXTERNAL DATA DEPARTMENT Provider, Generic External Data 02/21/2025 Results Follow-Up [address] [address] Elizabeth Dunn MD Uric acid 02/15/2025 Orders Only [address] [address] Elizabeth Dunn MD 2025 3:15 PM EDT Office Visit [address] [address] Elizabeth Dunn MD Polyarthralgia (Primary Dx); Right foot pain; Left foot pain; Type 2 diabetes mellitus without complication, without long-term current use of insulin ([facility]); Fibromyalgia 2025 Travel 02/11/2025 Orders Only [facility] External Provider, [facility] 02/08/[address] [address] Elizabeth Dunn MD ER Follow-up 02/08/2025 Patient Outreach [address] [address] Elizabeth Dunn MD Care Coordination ([facility]/JB Melendez, initial assessment scheduled ) 02/08/2025 Patient Outreach [address] [address] Elizabeth Dunn MD Care Coordination ([facility]JB Melendez, Chart review ) 02/08/2025 Patient Outreach [facility] [address] [place] [address] [phone] Elizabeth Dunn MD Care Coordination ([facility]- chart review) 02/08/2025 Patient Outreach [address] [address] Elizabeth Dunn MD 02/07/2025 Orders Only GENERIC EXTERNAL DATA DEPARTMENT Provider, Generic External Data 02/02/2025 3:00 PM EDT Telemedicine [address] [address] Elizabeth Dunn MD Diabetic mononeuropathy simplex ([facility]/HCC) (Primary Dx); 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order, without psychotic features (CMS/HCC); Mild intermittent asthma, unspecified whether complicated; Continuous opioid dependence (CMS/HCC); Fibromyalgia; Dietary counseling; Exercise counseling; Type 2 diabetes mellitus without complication, without long-term current use of insulin (CMS/HCC) 02/02/2025 Travel 02/01/2025 Telephone [facility] [address] [place] [phone] Elizabeth Dunn MD 01/26/2025 3:30 PM EDT Office Visit [address] [address] Elizabeth Dunn MD Type 2 diabetes mellitus without complication, without long-term current use of insulin ([facility]/HCC) (Primary Dx); Fibromyalgia; Acute pain of right shoulder; Class 1 obesity due to excess calories with serious comorbidity and body mass index (BMI) of 34.0 to 34.9 in adult 01/26/2025 Refill [facility] [address] [place] [phone] Elizabeth Dunn MD Type 2 diabetes mellitus without complication, without long-term current use of insulin ([facility]/HCC) 01/26/2025 Travel 01/25/2025 Telephone [facility] [address] [place] [phone] Elizabeth Dunn MD chart prep 01/21/2025 Travel 01/20/2025 Telephone [facility] [address] [place] [address] [phone] Elizabeth Dunn MD appt 01/15/2025 Refill [facility] [address] [place] [address] [phone] Vanna Chen MD Microcytic anemia 01/14/[address] [phone] Elizabeth Dunn MD Prior Authorization ( PA: Trish) 01/12/2025 Orders Only [facility] [address] [place] [address] Elizabeth Dunn MD 01/12/2025 Refill [facility] [address] [place] [address] Elizabeth Dunn MD Class 2 severe obesity with serious comorbidity and body mass index (BMI) of 35.0 to 35.9 in adult, unspecified obesity type (CMS/HCC) 01/11/2025 Refill [facility] [address] [place] [address] Elizabeth Dunn MD Chronic midline low back pain with left-sided sciatica 01/04/2025 10:20 AM EDT Office Visit [facility] [address] [place] [address] Dawson, Mulu, OD Type 2 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 (CMS/HCC) (Primary Dx) 01/04/2025 Travel 12/19/2024 Refill [facility] [address] [place] [address] Elizabeth Dunn MD Chronic bilateral low back pain with left-sided sciatica 12/15/2024 Orders Only [facility] [address] [place] [address] Elizabeth Dunn MD Class 2 severe obesity with serious comorbidity and body mass index (BMI) of 35.0 to 35.9 in adult, unspecified obesity type (CMS/HCC) (Primary Dx) 12/15/2024 Telephone [facility] [address] [place] [address] Elizabeth Dunn MD Med Refill 12/15/2024 Refill [facility] [address] [place] [address] Elizabeth Dunn MD 12/08/2024 Refill [facility] [address] [place] [address] Elizabeth Dunn MD Chronic bilateral low back pain with left-sided sciatica 12/07/2024 Telephone [facility] [address] [place] [address] Elizabeth Dunn MD No Show 12/07/2024 Telephone [facility] [address] [place], [place] [phone] Elizabeth Dunn MD Chart Prep 12/06/2024 Refill [facility] [address] [place], [place] [phone] Elizabeth Dunn MD Chronic midline low back pain with left-sided sciatica from Last 3 Months Immunizations Immunization Administration [...] Care Team (Late st Contact Info) Description 03/22/2025 2:30 PM EST Telemedicine [facility] [address] [place] [address] Elizabeth Dunn MD [address] [place], [place] [phone] 06/07/2025 2:30 PM EST Office Visit [facility] [address] [place] [address] Dawson, Mulu, OD [address] [place] [address] Health Maintenance Due Date Last Done Comments [...] 01/04/2025 01/05/2024, 05/31/2020 Influenza Vaccine (#1) 2025 4, 08/06/2023, 04/21/2023, Additional history exists Diabetes: Hemoglobin A1C 07/26/2025 025, 07/15/2024, 04/07/2024, Additional history exists Colonoscopy 12/10/2025 12/10/2022 Colorectal Cancer Screening 12/10/2025 Alcohol/Substance Use Screening 02/02/2026 02/02/2025 Depression Screening 02/02/2026 02/02/2025, 02/03/20 25 SDOH Screening 02/02/2026 02/02/2025 Diabetes: Foot Exam 2026 2025, Tobacco Screening 2026 2025 Mammogram 02/15/2026 02/15/2025, 1005/2023, 02/10/2024, Additional history exists DTaP/Tdap/Td Vaccines (3 - Td or Tdap) [...] Name Priority Date/Time Associated Diagnosis Comments XR CHEST 1 VIEW Routine 02/22/2025 2:39 PM EDT HIGH SENSITIVITY TROPONIN I Routine 02/22/2025 2:22 PM EDT BASIC METABOLIC PANEL Routine 02/22/2025 2:22 PM EDT PROTHROMBIN TIME-INR Routine 02/22/2025 1:22 PM EDT CBC WITH AUTO DIFFERENTIAL Routine 02/22/2025 1:22 PM EDT URIC ACID Routine 02/18/2025 1:14 PM EDT Right foot pain Left foot pain BI MAMMOGRAM SCREENING TOMOSYNTHESIS BILATERAL Routine 02/15/2025 9:05 AM EDT XR FOOT 3+ VIEWS RIGHT Routine 02/12/2025 [...] complication, without long-term current use of insulin ([facility]) POCT GLYCATED HEMOGLOBIN, TOTAL Routine 01/26/2025 3:42 PM EDT Type 2 diabetes mellitus without complication, without long-term current use of insulin (CMS/HCC) ALBUMIN, RANDOM URINE W/CREATININE Routine 01/05/2024 8:25 [...] Relevant to Health Maintenance Results * XR Chest 1 View (02/22/2025 2:39 PM EDT) Anatomical Region Laterality Modality Chest Radiographic Delilah ging 02/22/2025 2:39 PM EDT Narrative 02/22/2025 2:56 PM EDT [place] [phone] XRay Report Signed Patient: Lelo Plata MR# : [id number] : 1960 Acct:[id number] Age/Sex: 65 / F ADM Date: 02/22/25 Loc: HO.ED Attending Dr: Ordering Physician: Cortes Hammer MD Date of Service: 02/22/25 Procedure(s): XR chest 1V Accession Number(s): [id number] cc: Elizabeth Dunn MD; Cortes Hammer MD Reason for Exam: chest pain/discomfort, dizziness EXAMINATION: XR CHEST CLINICAL INFORMATION: chest pain/discomfort, dizziness COMPARISON: 07/01/2024. TECHNIQUE: Frontal view of the chest was obtained. FINDINGS: The cardiac, hilar, and mediastinal contours are normal. The lungs are clear bilaterally. Stable linear scarring in the right midlung. No pneumothorax or effusion. No focal osseous or soft tissue abnormality. Inferior cervical fusion device noted. Degenerative changes in both shoulder joints and throughout the spine. XR/XR chest 1V IMPRESSION: No active pulmonary disease. Electronically signed by: Kory Johnson MD 02/22/2025 02:53 PM EDT RP Dictated By: Kory Johnson MD Signed By: <Electronically signed by Kory Johnson MD in OV> 02/22/251452 DD/ 38 TD/TT: 02/22/251444 [employer] Worker: Procedure Note Donotuseinterpreter, Image - 02/22/[address] [address] XRay Report Signed Patient: Lelo Plata RMR# : [id number] : 1960cct:[id number] Age/Sex: 65 / FADM Date: 02/22/25 Loc: .ED Attending Dr: Ordering Physician: Cortes Hammer MD Date of Service: 02/22/25 Procedure(s): XR chest 1V Accession Number(s): [id number] cc: Elizabeth Dunn MD; Cortes Hammer MD Reason for Exam: chest pain/discomfort, dizziness EXAMINATION: XR CHEST CLINICAL INFORMATION: chest pain/discomfort, dizziness COMPARISON: 07/01/2024. TECHNIQUE: Frontal view of the chest was obtained. FINDINGS: The cardiac, hilar, and mediastinal contours are normal. The lungs are clear bilaterally. Stable linear scarring in the right midlung. No pneumothorax or effusion. No focal osseous or soft tissue abnormality. Inferior cervical fusion device noted. Degenerative changes in both shoulder joints and throughout the spine. XR/XR chest 1V IMPRESSION: No active pulmonary disease. Electronically signed by: Kory Johnson MD 02/22/2025 02:53 PM EDT RP Dictated By: Kory Johnson MD Signed By: <Electronically signed by Kory Johnson MD in OV> 02/22/251452 DD/ TD/TT: 02/22/25 1445 [employer] Worker: [facility] External Provider IMG XR PROCEDURES Final Result * High Sensitivity Troponin I (02/22/2025 2:22 PM EDT) Pathologist [facility] TROPONIN I HIGH SENSITIVITY <2.7 <3.5 - 17.0 ng/L [facility] Comment:The [place] high sens itivity Troponin-I results should beused in conjunction with other diagnostic information suchas ECG, clinical observations and information, and patientsymptoms to aid in the diagnosis of MS. 02/22/2025 2:22 PM EDT 02/22/2025 2:25 PM EDT Generic External Data Provider LAB BLOOD ORDERAB LES Final Result [facility] [address] [place] [phone] * (ABNORMAL) Basic Metabolic Panel (02/22/2025 2:22 PM EDT) Pathologist [facility] Sodium 139 135 - 145 mmol/L [facility] Potassium 4.0 3.3 - 5.1 mmol/L [facility] Comment:Slight Hemolysis.Int erpret result with caution. Chloride 106 96 - 108 mmol/L [facility] Carbon Dioxide 22 22 - 29 mmol/L [facility] Anion Gap 15 12 - 20 [facility] Urea Nitrogen (BUN) 20(H) 9 - 16 mg/dL [facility] Creatinine, Serum 0.85 0.5 - 1.4 mg/dL [facility] Creatinine Clr Calc Pharmacy 76.0 [facility] Comment:Provided height and weight: 165.1 cm,92.2 kg.eGFR (calculated from the MDRD study equation) and eCrCl(calculated from the Cockcroft-Gault equation) are based ondifferent parameters and may not yield comparable results.If eCrCl result is absurd, please check patient'sheight/weight. Estimated Glomerular Filt Rate >60 [facility] Comment:Chronic Kidney Disea se: Estimated GFR < 60 mL/min/1.67w1Qibxng Kidney Disease: Estimated GFR < 15 mL/min/1.73m2 Glucose 60 60 - 115 mg/dL [facility] Calcium 8.6 8.4 - 10.2 mg/dL [facility] 02/22/2025 2:22 PM EDT 02/22/2025 2:25 PM EDT us Generic External Data Provider LAB BLOOD ORDERAB LES Final Result [facility] [address] [place] [address] [phone] * (ABNORMAL) CBC auto differential (02/22/2025 1:22 PM EDT) Only the most recent of2 resultswithin the time period is included. White Blood Count 11.8(H) 4.8 - 10.8 X10*3/uL [facility] Red Blood Count 4.72 4.20 - 5.50 X10*6/uL [facility] Hemoglobin 11.5(L) 12.0 - 16.0 g/dl [facility] Hematocrit 35.2(L) 37.0 - 47.0 % [facility] Mean Corpuscular Volume 74.6(L) 80.0 - 98.0 fL [facility] Mean Corpuscular Hemoglobin 24.4(L) 27.0 - 33.0 pg [facility] Mean Corpuscular HGB Conc 32.7 31.0 - 35.0 g/dl [facility] Red Cell Distribution Width 19.5(H) 11.0 - 16.0 % [facility] Platelet Count 222 160 - 400 X10*3/uL [facility] Mean Platelet Volume 11.7 9.4 - 12.3 fL [facility] Neutrophils Percent Auto 67.7 45 - 73 % [facility] Imm Gran Pct Auto 1.1(H) 0.0 - 0.4 % [facility] Lymphocytes Percent Auto 21.6 20 - 40 % [facility] Monocytes Percent Auto 8.5 2 - 11 % [facility] Eosinophils Percent Auto 0.8 0 - 4 % [facility] Basophils Percent Auto 0.3 0 - 2 % [facility] NRBC Pct Auto 0.0 0.0 - 0.2 /100WBC [facility] Neutrophils Absolute Auto 8.0 2.0 - 8.3 x10*3/uL [facility] Imm Gran Abs Auto 0.13(H) 0.00 - 0.03 X10*3/uL [facility] Lymphocytes Absolute Auto 2.6 1.2 - 4.9 X10*3/uL [facility] Monocytes Absolute Auto 1.0 0.1 - 1.2 X10*3/uL [facility] Eosinophils Absolute Auto 0.1 0.0 - 0.4 X10*3/uL [facility] Basophils Absolute Auto 0.0 0.0 - 0.2 X10*3/uL [facility] NRBC Abs Auto 0.000 0.0 - 0.012 X10*3/uL [facility] 02/22/2025 1:22 PM EDT 02/22/2025 1:25 PM EDT us Generic External Data Provider LAB BLOOD ORDERAB LES Final Result [facility] [address] [place] [phone] * Prothrombin Time-INR (02/22/2025 1:22 PM EDT) Prothrombin Time 11.0 10.9 - 12.4 SEC [facility] INTERNATIONAL NORM RATIO 1.0 0.9 - 1.1 [facility] Comment:INTERNATIONAL NORMAL IZED RATIO (INR) REFERENCE RANGES Reference RangeFor patients not on anticoagulant therapy: 0.9 - 1.1INR ranges for oral anticoagulanttherapy:For prevention and treatment of venous thrombosis and pulmonary embolism: 2.0 - 3.0For acute myocardial infarction with aspirin therapy: 2.0 - 3.0For acute myocardial infarction without aspirin therapy: 3.0 - 4.0For patients with mechanical prosthetic heart valves: 2.5 - 3.5 02/22/2025 1:22 PM EDT 02/22/2025 1:25 PM EDT us Generic External Data Provider LAB BLOOD ORDERAB LES Final Result Performing Organization Address [facility] Co de Phone Number [facility] [address] [place] [phone] * (ABNORMAL) Uric acid (02/18/2025 1:14 PM EDT) Uric Acid 6.3(H) 2.4 - 5.7 mg/dL [facility] Blood Venous blood specimen / Unknown 02/18/2025 1:14 PM EDT 02/18/2025 4:31 PM EDT us Elizabeth Goncalves MD LAB BLOOD ORDERABLES Final Result Performing Organization Address [facility] de Phone Number [facility] [address] [place] [phone] * BI Mammogram Screening Tomosynthesis Bilateral (02/15/2025 9:05 AM EDT) Anatomical Region Laterality Modality Breast Bilateral Mammography 02/15/2025 9:05 AM EDT Narrative 02/22/2025 9:47 AM EDT [facility] [address] [place] [address] Mammography Report Signed Patient: Lelo Plata MR# : [id number] : 1960 Acct:[id number] Age/Sex: 65 / F ADM Date: 02/15/25 Loc: SIVANO Attending Dr: Elizabeth Goncalves MD Ordering Physician: Elizabeth Dunn MD Results: 1Negative Date of Service: 02/15/25 Follow Up: 1 Year From Orig inal Mammogram Procedure(s): MM tomosynthesis screening BI Accession Number(s): [id number] cc: Elizabeth Dunn MD Reason For Exam: SCREENING EXAMINATION: MM SCREENING DIGITAL BREAST TOMOSYNTHESIS, BILATERAL CLINICAL INFORMATION: Screening. Asymptomatic. COMPARISON: Mammography: Comparison is made with available priors TECHNIQUE: Digital breast mammography with tomosynthesis is performed in both the craniocaudal and mediolateral oblique views along with computer-aided detection (CAD). FINDINGS: The breasts are almost entirely fatty. Bilateral reduction mammoplasty. There are no significant masses, abnormal calcifications, or other abnormalities. MM/MM tomosynthesis screening BI IMPRESSION: No mammographic evidence of malignancy. ASSESSMENT: BI-RADS Category 1: Negative RECOMMENDATION: Routine annual mammography screening. 1 year F/U This examination should not preclude the clinical evaluation of a suspicious palpable abnormality. This patient's information was entered into a reminder system with a target due date for their next mammogram. Electronically signed by: Trinity Dawn DO 02/22/2025 09:44 AM EDT Dictated By: Trinity Dawn DO Signed By: <Electronically signed by Trinity Dawn DO in OV> 02/22/25943 DD/ 4 TD/TT: 02/15/25927 [employer] Worker: Procedure Note Donotuseinterpreter, Image - 02/22/2025 [facility] [address] [place] [address] Mammography Report Signed Patient: Lelo Plata RMR# : [id number] : 1960cct:[id number] Age/Sex: 65 / FADM Date: 02/15/25 Loc: SIVANO Attending Dr: Elizabeth Goncalves MD Ordering Physician: Elizabeth Dunn MDResults: 1Negative Date of Service: 02/15/25Follow Up: 1 Year From Orig inal Mammogram Procedure(s): MM tomosynthesis screening BI Accession Number(s): [id number] cc: Elizabeth Dunn MD Reason For Exam: SCREENING EXAMINATION: MM SCREENING DIGITAL BREAST TOMOSYNTHESIS, BILATERAL CLINICAL INFORMATION: Screening. Asymptomatic. COMPARISON: Mammography: Comparison is made with available priors TECHNIQUE: Digital breast mammography with tomosynthesis is performed in both the craniocaudal and mediolateral oblique views along with computer-aided detection (CAD). FINDINGS: The breasts are almost entirely fatty. Bilateral reduction mammoplasty. There are no significant masses, abnormal calcifications, or other abnormalities. MM/MM tomosynthesis screening BI IMPRESSION: No mammographic evidence of malignancy. ASSESSMENT: BI-RADS Category 1: Negative RECOMMENDATION: Routine annual mammography screening. 1 year F/U This examination should not preclude the clinical evaluation of a suspicious palpable abnormality. This patient's information was entered into a reminder system with a target due date for their next mammogram. Electronically signed by: Trinity Dawn DO 02/22/2025 09:44 AM EDT Dictated By: Trinity Dawn DO Signed By: <Electronically signed by Trinity Dawn DO in OV> 02/22/2544 DD/ 4 TD/TT: 02/15/25927 [employer] Worker: us Elizabeth Goncalves MD IMG BI PROCEDURES Fin al Result * XR Foot 3+ Views Right (02/12/2025 1:30 AM EDT) Anatomical Region Laterality Modality Lower Extremities, Foot Right Radiogra phic Imaging 02/12/2025 1:30 AM EDT Narrative 02/12/2025 1:32 AM EDT [address] [address] XRay Report Signed Patient: Lelo Plata MR# : [id number] : 1960 Acct:[id number] Age/Sex: 64 / F ADM Date: 02/11/25 Loc: HO.ED Attending Dr: Ordering Physician: Perla Turner Date of Service: 02/12/25 Procedure(s): XR foot RT min 3V Accession Number(s): [id number] cc: Elizabeth Dunn MD; Perla Turner Reason [...] in OV> 02/12/25131 DD/ 9 TD/TT: 02/12/25129 [employer] Worker: Procedure Note Donotuseinterpreter, Image - 02/12/2025 [place] [address] XRay Report Signed Patient: Lelo Plata RMR# : [id number] : [id number]:[id number] Age/Sex: 64 / FADM Date: 02/11/25 Loc: HO.ED Attending Dr: Ordering Physician: Perla Turner Date of Service: 02/12/25 Procedure(s): XR foot RT min 3V Accession Number(s): [id number] cc: Elizabeth Dunn MD; Perla Turner Reason [...] in OV> 02/12/25131 DD/ 9 TD/TT: 02/12/25129 [employer] Worker: us [facility] External Provider IMG XR PROCEDURES Edited Result - Final * CT Abdomen Pelvis w/ Contrast (02/11/2025 11:22 PM EDT) Anatomical Region Laterality Modality Body, Pelvis, Abdomen Computed T omography 02/11/2025 11:2 2 PM EDT Narrative 02/11/2025 11:24 PM EDT [address] [address] [address] Scan Report Signed Patient: Lelo Plata MR# : [id number] : 1960 Acct:[id number] Age/Sex: 64 / F ADM Date: 02/11/25 Loc: HO.ED Attending Dr: Ordering Physician: Perla Turner Date of Service: 02/11/25 Procedure(s): CT abdomen pelvis w IV con Accession Number(s): [id number] cc: Elizabeth Dunn MD; Perla Turner Report Number: [id number]: Total DLP = 0.00 mGy-cm Reason for [...] in OV> 02/11/252322 DD/ 21 TD/TT: 02/11/252321 [employer] Worker: Procedure Note Donotuseinterpreter, Image - 02/11/[address] [address] [address] Scan Report Signed Patient: Lelo Plata RMR# : [id number] : [id number]:[id number] Age/Sex: 64 / FADM Date: 02/11/25 Loc: HO.ED Attending Dr: Ordering Physician: Perla Turner Date of Service: 02/11/25 Procedure(s): CT abdomen pelvis w IV con Accession Number(s): [id number] cc: Elizabeth Dunn MD; Perla Turner Report Number: [id number]: Total DLP = 0.00 mGy-cm Reason for [...] in OV> 02/11/252322 DD/ 21 TD/TT: 02/11/252321 [employer] Plastics Worker: [facility] External Provider IMG CT PROCEDURES Edited Result - Final * Urinalysis, Complete, with Reflex to Culture (02/11/2025 10:50 PM EDT) Color Urine Yellow [facility] Appearance Urine Clear [facility] PH 5.0 5.0 - 9.0 [facility] Glucose Urine UA Negative Negative mg/dL [facility] Urine Blood Negative Negative [facility] Specific [place] - Urine 1.020 1.005 - 1.025 [facility] Urine Protein Negative Neg-Trace mg/dL [facility] Urine Ketones Negative Negative mg/dL [facility] Nitrite Urine Negative Negative [facility] Leukocyte Esterase Urine Negative Negative [facility] RBC Urine 0-2 0 - 2 /HPF [facility] Urine WBC 0-5 0 - 5 /HPF [facility] Urine Squamous Epithelial Cell 0-2 0 - 2 /HPF [facility] Urine Bacteria None Seen None Seen [facility] Hyaline Casts, Urine 0-2 0 - 2 /LPF [facility] 02/11/2025 10:5 0 PM EDT 02/11/2025 10:54 PM EDT Narrative [facility] - 02/11/2025 11:05 PM EDT 2248Urine, Clean Catch us Generic External Data Provider LAB URINE ORDERAB LES Final Result [facility] [address] [place] [phone] * XR KUB and Upright 2 Views (02/11/2025 7:34 PM EDT) Anatomical Region Laterality Modality Radiographic Delilah ging 02/11/2025 7:34 PM EDT Narrative 02/11/2025 7:35 PM EDT [address] [address] XRay Report Signed Patient: Lelo Plata MR# : [id number] : 1960 Acct:[id number] Age/Sex: 64 / F ADM Date: 02/11/25 Loc: HO.ED Attending Dr: Ordering Physician: Perla Turner Date of Service: 02/11/25 Procedure(s): XR KUB Accession Number(s): [id number] cc: Elizabeth Dunn MD; Perla Turner Reason for Exam: constipation CLINICAL HISTORY: constipation Abdominal radiographs Comparison: CT/REG/CO/SR - CT ABDOMEN PELVIS W IV CON [...] in OV> 02/11/251933 DD/ 33 TD/TT: 02/11/251933 [employer] Worker: Procedure Note Donotuseinterpreter, Image - 02/11/[address] [address] XRay Report Signed Patient: Lelo Plata RMR# : [id number] : 1960cct:[id number] Age/Sex: 64 / FADM Date: 02/11/25 Loc: HO.ED Attending Dr: Ordering Physician: Perla Turner Date of Service: 02/11/25 Procedure(s): XR KUB Accession Number(s): [id number] cc: Elizabeth Dunn MD; Perla Turner Reason for Exam: constipation CLINICAL HISTORY: constipation Abdominal radiographs Comparison: CT/REG/CO/SR - CT ABDOMEN PELVIS W IV CON [...] in OV> 02/11/251933 DD/ 33 TD/TT: 02/11/251933 [employer] Worker: [facility] External Provider IMG XR PROCEDURES Final Result * VASC US Lower Extremity Venous Duplex Bilateral (02/07/2025 9:39 PM EDT) 02/07/2025 9:39 PM EDT Narrative [facility] - 02/07/2025 9:41 PM EDT [address] [address] Ultrasound Report Signed Patient: Lelo Plata MR# : [id number] : 1960 Acct:[id number] Age/Sex: 64 / F ADM Date: 02/07/25 Loc: .ED Attending Dr: Ordering Physician: Kaitlynn Wang Date of Service: 02/07/25 Procedure(s): US venous duplex [facility] Accession Number(s): [id number] cc: Elizabeth Dunn MD; Kaitlynn Wang Reason [...] in OV> 02/07/252139 DD/ 38 TD/TT: 02/07/252138 [employer] Worker: Procedure Note Bebater, Image - 02/07/[address] [address] Ultrasound Report Signed Patient: Lelo Plata RMR# : [id number] : 1960cct:[id number] Age/Sex: 64 / FADM Date: 02/07/25 Loc: HO.ED Attending Dr: Ordering Physician: Kaitlynn Wang Date of Service: 02/07/25 Procedure(s): US venous duplex LE Accession Number(s): [id number] cc: Elizabeth Dunn MD; Kaitlynn Wang Reason [...] in OV> 02/07/252139 DD/ 38 TD/TT: 02/07/252138 [employer] Worker: us [facility] External Provider CV VASC ULAR PROCEDURES Final Result [facility] [address] [place] [address] * NT-proBNP (02/07/2025 8:52 PM EDT) NT-proBNP 36.0 <300 pg/mL [facility] Comment:Reference Range:Age Group (years) NT-proBNP (pg/ml) InterpretationAll <300 Negative: HF unlikelyFor patients presenting to the ED with clinical suspicion ofnew onset or worsening HF, see below:18 to <50 >299.9 to <450.0 Grayzone: [id number] to 75 >299.9 to <900.0 other causes of>75 >299.9 to <1800.0 NT-proBNP to <50 >449.9 Positive: HF -14 >899.9>75 >1799.9Note: Elevated NT-proBNP levels should be interpreted inthe context of other clinical information. 02/07/2025 8:5 2 PM EDT 02/07/2025 8:57 PM EDT Generic External Data Provider LAB BLOOD ORDERAB LES Final Result Performing Organization Address [facility] Co de Phone Number [facility] [address] [place] [phone] * (ABNORMAL) Sed Rate by Modified Westergren (02/07/2025 8:52 PM EDT) Erythrocyte Sedimentation Rate 25(H) 0 - 20 MM/HR [facility] Comment:Patients with polycy themia and many hemoglobin abnormalitiesmay have depressed sed rates whereas patients with anemiamay have elevated sed rates. 02/07/2025 8:52 PM EDT 02/07/2025 8:57 PM EDT us Generic External Data Provider LAB BLOOD ORDERAB LES Final Result Performing Organization Address [facility]/ZIP Co de Phone Number [facility] [address] [place] [phone] * (ABNORMAL) C-reactive Protein (02/07/2025 8:52 PM EDT) C Reactive Protein 1.09(H) < or = 0.50 mg/dL [facility] 02/07/2025 8:52 PM EDT 02/07/2025 8:57 PM EDT us Generic External Data Provider LAB BLOOD ORDERAB LES Final Result Performing Organization Address City/[facility]/ZIP Co de Phone Number [facility] [address] [place] [phone] * Magnesium (02/07/2025 8:52 PM EDT) Magnesium 2.1 1.6 - 2.6 mg/dL [facility] 02/07/2025 8:52 PM EDT 02/07/2025 8:57 PM EDT Generic External Data Provider LAB BLOOD ORDERAB LES Final Result Performing Organization Address [facility] Co de Phone Number [facility] [address] [place] [phone] * Comprehensive Metabolic Panel (02/07/2025 8:52 PM EDT) Sodium 143 135 - 145 mmol/L [facility] Potassium 4.5 3.3 - 5.1 mmol/L [facility] Chloride 103 96 - 108 mmol/L [facility] Carbon Dioxide 28 22 - 29 mmol/L [facility] Anion Gap 17 12 - 20 [facility] Urea Nitrogen (BUN) 16 9 - 16 mg/dL [facility] Creatinine, Serum 1.06 0.5 - 1.4 mg/dL [facility] Creatinine Clr Calc Pharmacy 62.1 [facility] Comment:Provided height and weight: 165.1 cm,93.44 kg.eGFR (calculated from the MDRD study equation) and eCrCl(calculated from the Cockcroft-Gault equation) are based ondifferent parameters and may not yield comparable results.If eCrCl result is absurd, please check patient'sheight/weight. Estimated Glomerular Filt Rate 53 [facility] Comment:Chronic Kidney Disea se: Estimated GFR < 60 mL/min/1.19n2Byjlwx Kidney Disease: Estimated GFR < 15 mL/min/1.73m2 Glucose 77 60 - 115 mg/dL [facility] Calcium 9.2 8.4 - 10.2 mg/dL [facility] Bilirubin, Total 0.2 0.0 - 1.0 mg/dL [facility] Aspartate Amino Transferase 19 5 - 31 U/L [facility] Alanine Aminotransferase 8 0 - 31 U/L [facility] Total Protein 7.1 6.5 - 8.0 g/dL [facility] Albumin Level 4.2 3.5 - 5.0 g/dL [facility] Alkaline Phosphatase 72 39 - 117 U/L [facility] 02/07/2025 8:52 PM EDT 02/07/2025 8:57 PM EDT us Generic External Data Provider LAB BLOOD ORDERAB LES Final Result Performing Organization Address City/State/[facility] Co de Phone Number [facility] [address] [place] [phone] * POCT Hgb A1c (01/26/2025 3:42 [...] TEST EN TER/EDIT ORDERABLES Final Result * Albumin, Random Urine W/Creatinine (01/05/2024 8:25 AM EDT) Creatinine, Urine 223.33 mg/dL [facility] Microalbumin Urine 9.0 mg/L [facility] Microalbum Creatinine Ratio Ur 4.0 <30 ug/mg cr [facility] Comment:Albumin/Creatinine R atio Reference Ranges: Normal: < 30 ug/mg creatinine Microalbuminuria: 30 - 300 ug/mg creatinineClinical Albuminuria: > 300 ug/mg creatinine Urine (Urine, Random) 01/05/2024 8:25 AM EDT 01/05/2024 11:48 AM EDT us Elizabeth Goncalves MD LAB URINE ORDERABLES Final Result [facility] [address] [place] [phone] * (ABNORMAL) Lipid Panel with Reflex to Direct LDL (01/05/2024 8:22 AM EDT) Triglycerides 180(H) <150 mg/dL [facility] Comment:Desirable Triglyceri de: less than 150 mg/dLBorderline High Triglyceride 150-199 mg/dLHigh Triglyceride: 200-499 mg/dLVery High Triglyceride: greater than or equal to 5OO mg/dL Cholesterol 240(H) <200 mg/dL [facility] Comment:Desirable Cholestero l: less than 200 mg/dLBorderline High Cholesterol: 200-239 mg/dLHigh Cholesterol: greater than 239 mg/dL LDL Cholesterol Calculated 138(H) <100 mg/dL [facility] Comment:Desirable LDL: less than 100 mg/dLNear Optimal/Above Optimal LDL: 110- 129 mg/dLBorderline High LDL: 130-159 mg/dLHigh LDL: 160-189 mg/dLVery High LDL: greater than or equal to 190 mg/dL HDL Cholesterol 66 >40 mg/dL [facility] Comment:Desirable HDL: great er than 40 mg/dL Note: This HDL assay may give artificially low results in patients with liver disease. Blood 01/05/2024 8:22 AM EDT 01/05/2024 11:52 AM EDT Elizabeth Goncalves MD LAB BLOOD ORDERABLES Final Result Performing Organization Address [facility] Co de Phone Number [facility] [address] [place] [phone] * Hm Colonoscopy (12/10/2022) Historical Provider HEALTH MAINTENANCE Final Result * HEPATITIS C AB W/REFL TO HCV RNA, QN, PCR (10/23/2020 10:08 AM EDT) HEPATITIS C ANTIBODY NON-REACT JOSE NON-REACT JOSE [facility] INDEX 0.01 <1.00 [facility] Comment: HCV antibody was non-reactive. There is no laboratory evidence of HCV infection. In most cases, no further action is required. However, if recent HCV exposure is suspected, a test for HCV RNA (test code 25618) is suggested. For additional information please refer to http://education.FastConnect.[employer]/faq/WXL24e6 (This link is being provided for informational/ educational purposes only.) 10/23/2020 10:0 8 AM EDT Elizabeth Goncalves MD HISTORICAL/NON ORDERA BLE LABS Final Result Performing Organization Address [facility] Co de Phone Number [facility] [address] * HIV 1/2 ANTIGEN/ANTIBODY,FOURTH GENERATION W/RFL (10/23/2020 10:08 AM EDT) HIV-1/2 ANTIGEN AND ANTIBODIES, 4TH GENERATION W/ REFLEX NON-REACT JOSE NON-REACT JOSE [facility] Comment: HIV-1 antigen and HIV-1/HIV-2 [...] purpose. For additional information please refer to http://education.Vivak[employer]/faq/DFW133 (This link is being provided for informational/ educational purposes only.) The performance of this assay has not been clinically validated in patients less than 2 years old. 10/23/2020 10:0 8 AM EDT Elizabeth Goncalves MD LAB BLOOD ORDERABLES Final Result Performing Organization Address City/State/[facility] Co wa Phone Number [facility] [place] [address], from Last 3 Months or Most Recently Relevant to Health Maintenance Insurance [address] [place], [place] [address]HealthQx C3 Care Teams Vice President Of Development Relationship Specialty Start Date End Date Elizabeth Dunn MD [address] [place] [address] [phone] PCP - General Family Medicine 03/17/18 Kai Bowden, MATT [address] [place] [address] [phone] Registered Nurse Family Medicine 02/08/25 Manuela Mleendez 02/08/25 Thao Barnhart Button SewerGrain Farmworker 02/07/23
--- OUTSIDE RECORDS SUMMARY | 2025-02-22 16:36 | XMS_ITS | Encounter Summary ---
Author Organization [employer] Address [address] [place] [address] [address] [place] [address] Care Team Providers Care Data Consultant Name Role Phone Elizabeth Dunn MD Primary Care Provide r Kai Bowden RN Unavailable [phone] Manuela Melendez Unavailable Reason for Visit * Reason Onset Date Comments Med Refill 12/17/2022 Encounter Details Date Type Department Care Team (Late st Contact Info) Description 12/17/2022 Telephone [facility] [address] [place] [address] Elizabeth Dunn MD [address] [place], [place] [phone] Med Refill Social History Tobacco Use Types [...] Info) Description 03/22/2025 2:30 PM EST Telemedicine [facility] [address] [place] [address] Elizabeth Dunn MD [address] [place] [address] 06/07/2025 2:30 PM EST Office Visit [facility] [address] [place], [place] [phone] Mulu Osman, OD [address] [place] [address] documented as of this encounter Visit Diagnoses Not on filedocumented in this encounter Additional Health Concerns Assessment Noted Time PHQ-9 Depression Total Score: 0 08/03/19 23 3:13 PM EDT documented as of this encounter Care Teams Data Consultant Relationship Specialty Start Date End Date Elizabeth Dunn MD [address] [place] [address] PCP - General Family Medicine 03/17/18 Kai Bowden, RN [address] [place] [address] Registered Nurse Family Medicine 02/08/25 Manuela Melendez 02/08/25 Thao Barnhart Medical Information SpecialistBone Char Kiln Tender 02/07/23 documented as of this encounter
--- OUTSIDE RECORDS SUMMARY | 2025-02-22 16:36 | XMS_ITS | Encounter Summary ---
Author Organization [employer] Address [address] [facility] [address]t h Floor [place] [phone] Care Team Providers Care Black Top Spreader Machine Operator Name Role Phone Elizabeth Dunn MD Primary Care Provide r Kai Bowden RN Unavailable [phone] Manuela Melendez Unavailable Encounter Details Date Type Department Care Team (Late st Contact Info) Description 03/26/2024 Orders Only [facility] [address] [place] [address] Elizabeth Dunn MD [address] [place] [address] Social History Tobacco Use Types Packs/Day Years [...] Info) Description 03/22/2025 2:30 PM EST Telemedicine [facility] [address] [place] [address] Elizabeth Dunn MD [address] [place] [address] 06/07/2025 2:30 PM EST Office Visit [facility] [address] [place] [address] Dawson, Mulu, OD [address] [place] [address] documented as of this encounter Visit Diagnoses Not on filedocumented in this encounter Additional Health Concerns Assessment Noted Time PHQ-9 Depression Total Score: 0 08/20/19 24 2:32 PM EDT documented as of this encounter Care Teams Black Top Spreader Machine Operator Relationship Specialty Start Date End Date Elizabeth Dunn MD [address] [place] [address] PCP - General Family Medicine 03/17/18 Kai Bowden, MATT [address] [place] [address] Registered Nurse Family Medicine 02/08/25 Manuela Melendez 02/08/25 Thao Barnhart Boiler BlowerPie Topper 02/07/23 documented as of this encounter
--- OUTSIDE RECORDS SUMMARY | 2025-02-22 16:36 | XMS_ITS | Encounter Summary ---
Author Organization [employer] Address [address] [facility] [address]t [address] Floor [place] [phone] Care Team Providers Care Cable Maintainer Name Role Phone Elizabeth Dunn MD Primary Care Provide r Kai Bowden RN Unavailable [phone] Manuela Melendez Unavailable Encounter Details Date Type Department Care Team (Late st Contact Info) Description 01/12/2025 Orders Only [facility] [address] [place] [address] Elizabeth Dunn MD [address] [place] [address] Social History Tobacco Use Types Packs/Day Years [...] Info) Description 03/22/2025 2:30 PM EST Telemedicine [facility] [address] [place] [address] Elizabeth Dunn MD [address] [place] [address] 06/07/2025 2:30 PM EST Office Visit [facility] [address] [place] [address] Dawson, Mulu, OD [address] [place] [address] documented as of this encounter Visit Diagnoses Not on filedocumented in this encounter Additional Health Concerns Assessment Noted Time PHQ-9 Depression Total Score: 0 08/20/19 24 2:32 PM EDT documented as of this encounter Care Teams Cable Maintainer Relationship Specialty Start Date End Date Elizabeth Dunn MD [address] [place] [address] PCP - General Family Medicine 03/17/18 Kai Bowden, MATT [address] [place] [phone] Registered Nurse Family Medicine 02/08/25 Manuela Melendez 02/08/25 Thao Barnhart Cone OperatorRange Aid 02/07/23 documented as of this encounter
--- OUTSIDE RECORDS SUMMARY | 2025-02-22 16:36 | XMS_ITS | Clinical Summary ---
Author Organization [facility], Address [address] [place] [address] Phone Care Team Providers Care Medical Assistant Dermatology Name Role Phone Elizabeth Dunn MD Primary [...] Calculated 126 0 - 160 mg/dL 05/31/2020 [facility] Provider LAB BLOOD ORDERABLES Sandy l Result from Last 3 Months or Most Recently Relevant to Health Maintenance Insurance Medicaid [place] Member Subscriber Plan / Payer (Ef fective 2020-Present) Name:Jose Antonio Rivasda Relation to Subscriber:Self Name:Lelo Rivas Payer ID:Not on file Group ID:Not on file Type:Not on file Address: [address] Medicaid [place] Care Teams Medical Assistant Dermatology Relationship Specialty Start Date End Date Elizabeth Dunn MD [address] [place] [phone] PCP - General Internal Medicine 11/17/20
--- OUTSIDE RECORDS SUMMARY | 2025-02-22 16:36 | XMS_ITS ---
Author Organization [employer] Address [address] [facility] 7t [place] [address] Care Team Providers Care Clinic Manager Name Role Phone Elizabeth Dunn MD Primary Care Provide r Kai Bowden RN Unavailable [phone] Manuela Melendez Unavailable CM Complex Status:Outreach In Progress (Enrolling) Start date:02/08/2025 Enrollment reason:ADT Feed Overview ED- Pt went to [facility] ED on 02/07/25. Case Team Name Relationship Phone Kai Bowden RN(Responsible Staff) Registered [employer] nguyen [phone] Continued Care and Services Coordination
--- OUTSIDE RECORDS SUMMARY | 2025-02-22 16:36 | XMS_ITS | Encounter Summary ---
Author Organization [employer] Address [address] [facility] 7t [place] [address] Care Team Providers Care Emblem Fuser Tender Name Role Phone Elizabeth Dunn MD Primary Care Provide r Kai Bowden RN Unavailable [phone] Manuela Melendez Unavailable Reason for Visit * Reason Comments Med Refill Encounter Details Date Type Department Care Team ([facility] st Contact Info) Description 12/15/2024 Refill [facility] [address] [place] [address] Elizabeth Dunn MD [address] [place] [address] Social History Tobacco Use Types Packs/Day Years [...] Info) Description 03/22/2025 2:30 PM EST Telemedicine [facility] [address] [place] [address] Elizabeth Dunn MD [address] [place] [address] 06/07/2025 2:30 PM EST Office Visit [facility] OPT[facility] [address] [place] [address] Dawson, Mulu, OD [address] [place] [address] documented as of this encounter Visit Diagnoses Not on filedocumented in this encounter Additional Health Concerns Assessment Noted Time PHQ-9 Depression Total Score: 0 08/20/19 24 2:32 PM EDT documented as of this encounter Care Teams Emblem Fuser Tender Relationship Specialty Start Date End Date Elizabeth Dunn MD [address] [place] [address] PCP - General Family Medicine 03/17/18 Kai Bowden RN [address] [place] [address] Registered Nurse Family Medicine 02/08/25 Manuela Melendez 02/08/25 Thao Barnhart Typing SecretaryWinder Hand 02/07/23 documented as of this encounter
--- OUTSIDE RECORDS SUMMARY | 2025-02-22 16:36 | XMS_ITS | Encounter Summary ---
Author Organization [employer] Address 75 [facility] 7t h Floor [place] [phone] Care Team Providers Care Canoe Inspector Name Role Phone Elizabeth Dunn MD Primary Care Provide r Kai Bowden RN Unavailable [phone] Manuela Melendez Unavailable Reason for Visit * Reason Onset Date Comments Med Refill 06/21/2024 Encounter Details Date Type Department Care Team ([facility] st Contact Info) Description 06/21/2024 Telephone [facility] MED[facility] [address] [place] [address] Elizabeth Dunn MD 230 [place], [place] [phone] Med Refill Social History Tobacco Use Types [...] 500 MG tablet To be sent to: [facility]/pharmacy #[id number] documented in this encounter Plan of Treatment Upcoming Encounters Date Type Department Care Team (Late st Contact Info) Description 03/22/2025 2:30 PM EST Telemedicine [facility] MEDICINE [address] [place], [place] [phone] Elizabeth Dunn MD 230 [place] [address] 06/07/2025 2:30 PM EST Office Visit [facility] OPTOMETRY [address] [place], [place] [phone] Mulu Osman, OD 230 [place] [address] documented as of this encounter Visit Diagnoses Not on filedocumented in this encounter Additional Health Concerns Assessment Noted Time PHQ-9 Depression Total Score: 0 08/20/19 24 2:32 PM EDT documented as of this encounter Care Teams Canoe Inspector Relationship Specialty Start Date End Date Elizabeth Dunn MD [address] [place], [place] [phone] PCP - General Family Medicine 03/17/18 Kai Bowden, MATT [address] [place] [address] Registered Nurse Family Medicine 02/08/25 Manuela Melendez 02/08/25 Thao Barnhart Design Quality EngineerGeriatric Care Manager 02/07/23 documented as of this encounter
--- OUTSIDE RECORDS SUMMARY | 2025-02-22 16:36 | XMS_ITS | Clinical Summary ---
Author Organization [facility] Address 175 [place] [address] Phone Care Team Providers Care String Cutter Name Role Phone Elizabeth Dunn MD [...] sinusitis 03/18/2024 Microcytic anemia 03/18/2024 Benzodiazepine dependence ([facility] V24, [facility] V28) 03/18/2024 Blurring of visual image 03/18/2024 Chronic idiopathic constipation 03/18/2024 T2DM (type 2 diabetes mellitus) ([facility] V24, CM S/[facility] V28) 03/18/2024 Injury of kidney [...] 1981 Cervical Cancer Screening: Pap Smear 1983 RSV Immunization Adult Patients (1 - Risk 50-74 years 1-dose series) 02/15/2012 Pneumococcal Vaccine: 50+ Years (2 of 2 - PCV) 04/14/2015 04/14/2014, 03/12/2000 Cholesterol Screening (Lipid Panel) 02/13/2024 Hepatitis C Screening 02/13/2024 Social Influencers of Health Screening 02/13/2024 Diabetes: Annual Urine Albumin-Creatinine Ratio (uACR) 03/18/2024 Depression Screening 05/12/2024 Diabetes: Blood Sugar Control Test (HGBA1C) 06/10/2024 12/09/2023 COVID-19 Vaccine ( season) 2025 08/02/2022, 12/07/2021, 05/25/2021, Additional history exists Influenza Vaccine (#1) 2025 4, 04/21/2023, 03/14/2021, Additional history exists Diabetes: Annual [...] topic Insurance MEDICAID - [place] Care Teams String Cutter Relationship Specialty Start Date End Date Elizabeth Dunn MD [address] [phone] PCP - General Internal Medicine 02/12/24
--- OUTSIDE RECORDS SUMMARY | 2025-02-22 16:36 | XMS_ITS | Encounter Summary ---
Author Organization [employer] Address 75 [facility] 7t [place] [address] Care Team Providers Care Power Equipment Technology Instructor Name Role Phone Elizabeth Dunn MD Primary Care Provide r Kai Bowden RN Unavailable [phone] Manuela Melendez Unavailable Reason for Visit * Reason Onset Date Comments Nurse Triage 11/26/2023 Encounter Details Date Type Department Care Team ([facility] st Contact Info) Description 11/26/2023 Telephone [facility] MEDICINE 230 [place] [address] Elizabeth Dunn MD 230 [place], [place] [phone] Nurse Triage Social History Tobacco Use Types [...] to PT. Per pt has not called aircraft electrical systems specialist to notify of increased pain with [...] Info) Description 03/22/2025 2:30 PM EST Telemedicine [facility] MEDICINE 230 [place] [address] Elizabeth Dunn MD 230 [place] [address] 06/07/2025 2:30 PM EST Office Visit [facility] OPTOMETRY [address] [place] [address] Dawson, Mulu, OD 230 [place] [address] documented as of this encounter Visit Diagnoses Not on filedocumented in this encounter Additional Health Concerns Assessment Noted Time PHQ-9 Depression Total Score: 0 08/20/19 24 2:32 PM EDT documented as of this encounter Care Teams Power Equipment Technology Instructor Relationship Specialty Start Date End Date Elizabeth Dunn MD [address] [place] [address] PCP - General Family Medicine 03/17/18 Kai Bowden, RN [address] [place] [address] Registered Nurse Family Medicine 02/08/25 Manuela Melendez 02/08/25 Thao Barnhart Supervisor Nuclear MedicineWindows Server Architect 02/07/23 documented as of this encounter
--- OUTSIDE RECORDS SUMMARY | 2025-02-22 16:36 | XMS_ITS | Encounter Summary ---
Author Organization [employer] Address 75 [facility] 7t [place] [address] Care Team Providers Care Leather Finisher Name Role Phone Elizabeth Dunn MD Primary Care Provide r Kai Bowden RN Unavailable [phone] Manuela Melendez Unavailable Encounter Details Date Type Department Care Team ([facility] st Contact Info) Description 02/21/2025 Results Follow-Up [facility] MEDICINE 230 [place] [address] Elizabeth Dunn MD 230 [place] [address] Uric acid Social History Tobacco Use Types Packs/Day Years [...] encounter Miscellaneous Notes * Telephone Encounter - Miguelina Villarreal RN - 02/21/2025 2:41 PM EDT T/C to pt to give her below message, pt expresses understanding and agrees to plan of care. documented in this encounter Plan of Treatment Upcoming Encounters Date Type Department Care Team (Late st Contact Info) Description 03/22/2025 2:30 PM EST Telemedicine [facility] MEDICINE 230 [place] [address] Elizabeth Dunn MD 230 [place] [address] 06/07/2025 2:30 PM EST Office Visit [facility] OPTOMETRY [address] [place] [address] Mulu Osman OD 230 [place] [address] documented as of this encounter Visit Diagnoses Not on filedocumented in this encounter Additional Health Concerns Assessment Noted Time PHQ-9 Depression Total Score: 0 02/03/20 2:44 PM EDT documented as of this encounter Care Teams Leather Finisher Relationship Specialty Start Date End Date Elizabeth Dunn MD 230 [place] [address] PCP - General Family Medicine 03/17/18 Kai Bowden, MATT [address] [place] [address] Registered Nurse Family Medicine 02/08/25 Manuela Melendez 02/08/25 Thao Barnhart Discharge RnTrackwalker 02/07/23 documented as of this encounter
--- OUTSIDE RECORDS SUMMARY | 2025-02-22 16:36 | XMS_ITS | Encounter Summary ---
Author Organization [employer] Address 75 [facility] 7t h Floor [place] [phone] Care Team Providers Care Inhalation Therapy Teacher Name Role Phone Elizabeth Dunn MD Primary Care Provide r Kai Bowden RN Unavailable [phone] Manuela Melendez Unavailable Encounter Details Date Type Department Care Team (Late st Contact Info) Description 02/15/2025 Orders Only [facility] MEDICINE 230 [place] [address] Elizabeth Dunn MD 230 [place] [address] Social History Tobacco Use Types Packs/Day Years [...] Info) Description 03/22/2025 2:30 PM EST Telemedicine [facility] [address] [place] [address] Elizabeth Dunn MD 230 [place] [address] 06/07/2025 2:30 PM EST Office Visit [facility] OPTOMETRY [address] [place] [address] Mulu Osman, OD 230 [place] [address] documented as of this encounter Procedures Procedure Name Priority Date/Time Associated Diagnosis Comments BI MAMMOGRAM SCREENING TOMOSYNTHESIS BILATERAL Routine 02/15/2025 9:05 AM EDT documented in this encounter Results * BI Mammogram Screening Tomosynthesis Bilateral (02/15/2025 9:05 AM EDT) Anatomical Region Laterality Modality Breast Bilateral Mammography 02/15/2025 9:05 AM EDT Narrative 02/22/2025 9:47 AM EDT [address] [place], [place] [address] Mammography Report Signed Patient: Lelo Plata MR# : [id number] : 1960 Acct:[id number] Age/Sex: 65 / F ADM Date: 02/15/25 Loc: HO.MAMMO Attending Dr: Elizabeth Goncalves MD Ordering Physician: Elizabeth Dunn MD Results: 1Negative Date of Service: 02/15/25 Follow Up: 1 Year From Orig inal Mammogram Procedure(s): MM tomosynthesis screening BI Accession Number(s): [id number] cc: Elizabeth Dunn MD Reason For Exam: [...] in OV> 02/22/2544 DD/ 4 TD/TT: 02/15/25927 Chief Passenger Ship Steward/Stewardess: Procedure Note Donotuseinterpreter, Image - 02/22/[address] [place], [place] [address] Mammography Report Signed Patient: Lelo Plata RMR# : [id number] : 2Acct:[id number] Age/Sex: 65 / FADM Date: 02/15/25 Loc: HO.MAMMO Attending Dr: Elizabeth Goncalves MD Ordering Physician: Elizabeth Dunn MDResults: 1Negative Date of Service: 02/15/25Follow Up: 1 Year From Orig inal Mammogram Procedure(s): MM tomosynthesis screening BI Accession Number(s): [id number] cc: Elizabeth Dunn MD Reason For Exam: [...] in OV> 02/22/2544 DD/ 4 TD/TT: 02/15/25927 Chief Passenger Ship Steward/Stewardess: Elizabeth Goncalves MD IMG BI PROCEDURES Fin al Result documented in this encounter Visit Diagnoses Not on filedocumented in this encounter Additional Health Concerns Assessment Noted Time PHQ-9 Depression Total Score: 0 02/03/20 2:44 PM EDT documented as of this encounter Care Teams Inhalation Therapy Teacher Relationship Specialty Start Date End Date Elizabeth Dunn MD 230 [place] [address] PCP - General Family Medicine 03/17/18 Kai Bowden, MATT [address] [place] [address] Registered Nurse Family Medicine 02/08/25 Manuela Melendez 02/08/25 Thao Barnhart Bark PeelerBullet Swaging Machine Operator 02/07/23 documented as of this encounter
--- OUTSIDE RECORDS SUMMARY | 2025-02-22 16:36 | XMS_ITS | Encounter Summary ---
Author Organization [employer] Address [address] [place] [address] 7t [place] [address] Care Team Providers Care Roofing Apprentice Name Role Phone Elizabeth Dunn MD Primary Care Provide r Kai Bowden RN Unavailable [phone] Manuela Melendez Unavailable Encounter Details Date Type Department Care Team (Late st Contact Info) Description 05/17/[address] [facility] MEDICINE 230 [place] [address] Linda Romero, PharmD [address] [place] [address] Social History Tobacco Use Types Packs/Day Years [...] Info) Description 03/22/2025 2:[address] [facility] MEDICINE [address] [place] [address] Elizabeth Dunn MD [address] [place] [address] 06/07/2025 2:30 PM EST Office Visit [facility] OPTOMETRY [address] [place] [address] Mulu Osman, OD 230 [place] [address] documented as of this encounter Visit Diagnoses Not on filedocumented in this encounter Care Teams Roofing Apprentice Relationship Specialty Start Date End Date Elizabeth Dunn MD [address] [place], [place] [phone] PCP - General Family Medicine 03/17/18 Kai Bowden, MATT [address] [place] [address] Registered Nurse Family Medicine 02/08/25 Manuela Melendez 02/08/25 Thao Barnhart Operations Section ManagerNonprofit Director 02/07/23 documented as of this encounter
--- OUTSIDE RECORDS SUMMARY | 2025-02-22 16:36 | XMS_ITS | Encounter Summary ---
Author Organization [employer] Address [address] [place] [address] 7t [place] [address] Care Team Providers Care Yard Attendant Name Role Phone Elizabeth Dunn MD Primary Care Provide r Kai Bowden RN Unavailable [phone] Manuela Melendez Unavailable Encounter Details Date Type Department Care Team (Late st Contact Info) Description 01/29/2023 Orders Only [facility] MEDICINE [address] [place] [address] [phone] ProviderHector MD Social History Tobacco Use Types [...] Description 03/22/2025 2:30 PM EST Telemedicine [facility] MEDICINE [address] [place] [phone] Elizabeth Dunn MD 230 [place], [place] [phone] 06/07/2025 2:30 PM EST Office Visit [facility] OPTOMETRY [address] [place] [address] Mulu Osman, OD 230 [place] [address] documented as of this encounter Procedures Procedure [...] documented as of this encounter Care Teams Yard Attendant Relationship Specialty Start Date End Date Elizabeth Dunn MD 230 [place], [place] [phone] PCP - General Family Medicine 03/17/18 Kai Bowden, RN 505 [place] [address] Registered Nurse Family Medicine 02/08/25 Manuela Melendez 02/08/25 Thao Barnhart Coke Drawer HandCounter Dish Carrier 02/07/23 documented as of this encounter
--- OUTSIDE RECORDS SUMMARY | 2025-02-22 16:36 | XMS_ITS ---
Author Organization [employer] Address 75 [facility] 7t [place] [address] Care Team Providers Care Medical Record Specialist Name Role Phone Elizabeth Dunn MD Primary Care Provide r Kai Bowden RN Unavailable [phone] Manuela Melendez Unavailable CHW Complex Status:Outreach In Progress (Enrolling) Start date:02/08/2025 Enrollment reason:ADT Feed Overview ED- Pt [facility]. Case Team Name Relationship Phone Manuela Melendez(Responsible Staff) [phone] Continued Care and Services Coordination
--- OUTSIDE RECORDS SUMMARY | 2025-02-22 16:36 | XMS_ITS | Encounter Summary ---
Author Organization [employer] Address 75 [facility] 7t [place] [address] Care Team Providers Care Pari Mutuel Ticket Cashier Name Role Phone Elizabeth Dunn MD Primary Care Provide r Kai Bowden RN Unavailable [phone] Manuela Melendez Unavailable Encounter Details Date Type Department Care Team (Late st Contact Info) Description 02/22/2025 Orders Only GENERIC EXTERNAL DATA [...] Telemedicine [facility] MEDICINE 230 [place], [place] [phone] Elizabeth Dunn MD 230 [place] [address] 06/07/2025 2:30 PM EST Office Visit [facility] OPTOMETRY [address] [place], [place] [phone] Mulu Osman, JANINA 230 [place] [address] documented as of this encounter Procedures Procedure Name Priority Date/Time Associated Diagnosis Comments XR CHEST 1 VIEW Routine 02/22/2025 2:39 PM EDT HIGH SENSITIVITY TROPONIN I Routine 02/22/2025 2:22 PM EDT BASIC METABOLIC PANEL Routine 02/22/2025 2:22 PM EDT CBC WITH AUTO DIFFERENTIAL Routine 02/22/2025 1:22 PM EDT PROTHROMBIN TIME-INR Routine 02/22/2025 1:22 PM EDT documented in this encounter Results * XR Chest 1 View (02/22/2025 2:39 PM EDT) Anatomical Region Laterality Modality Chest Radiographic Delilah ging 02/22/2025 2:39 PM EDT Narrative 02/22/2025 2:56 PM EDT [address] [address] XRay Report Signed Patient: Lelo Plata R MR# : [id number] : 1960 Acct:[id number] Age/Sex: 65 / F ADM Date: 02/22/25 Loc: HO.ED Attending Dr: Ordering Physician: Cortes Hammer MD Date of Service: 02/22/25 Procedure(s): XR chest 1V Accession Number(s): [id number] cc: Elizabeth Dunn MD; Cortes Hammer MD [...] Kory Johnson MD 02/22/2025 02:53 PM EDT Dictated By: Kory Johnson MD Signed By: <Electronically signed by Kory Johnson MD in OV> 02/22/25 1453 DD/ 1439 TD/TT: 02/22/25 1445 Assessment Director: Procedure Note Donotuseinterpreter, Image - 02/22/[address] [address] XRay Report Signed Patient: Lelo Plata RMR# : [id number] : [id number]:[id number] Age/Sex: 65 / FADM Date: 02/22/25 Loc: HO.ED Attending Dr: Ordering Physician: Cortes Hammer MD Date of Service: 02/22/25 Procedure(s): XR chest 1V Accession Number(s): [id number] cc: Elizabeth Dunn MD; Cortes Hammer MD [...] signed by Kory Johnson MD in OV> 02/22/25 1453 DD/ 1439 TD/TT: 02/22/25 1445 Assessment Director: [facility] External Provider IMG XR PROCEDURES Final Result * High Sensitivity Troponin I (02/22/2025 2:22 PM EDT) TROPONIN I HIGH SENSITIVITY <2.7 <3.5 - 17.0 ng/L [facility] Comment:The [place] high sens itivity Troponin-I results should beused in conjunction with other diagnostic information suchas ECG, clinical observations and information, and patientsymptoms to aid in the diagnosis of CT. 02/22/2025 2:22 PM EDT 02/22/2025 2:25 PM EDT Generic External Data Provider LAB BLOOD ORDERAB LES Final Result [facility] [address] [place] [phone] * (ABNORMAL) Basic Metabolic Panel (02/22/2025 2:22 PM EDT) Sodium 139 135 - 145 mmol/L [facility] Potassium 4.0 3.3 - 5.1 mmol/L [facility] Comment:Slight Hemolysis.Int erpret result with caution. Chloride 106 96 - 108 mmol/L [facility] Carbon Dioxide 22 22 - 29 mmol/L [facility] Anion Gap 15 12 - 20 [facility] Urea Nitrogen (BUN) 20(H) 9 - 16 mg/dL [facility] Creatinine, Serum 0.85 0.5 - 1.4 mg/dL [facility] Creatinine Clr Calc Pharmacy 76.0 [facility] Comment:Provided height and weight: 165.1 cm,92.2 kg.eGFR (calculated from the MDRD study equation) and eCrCl(calculated from the Cockcroft-Gault equation) are based ondifferent parameters and may not yield comparable results.If eCrCl result is absurd, please check patient'sheight/weight. Estimated Glomerular Filt Rate >60 [facility] Comment:Chronic Kidney Disea se: Estimated GFR < 60 mL/min/1.13h3Washdx Kidney Disease: Estimated GFR < 15 mL/min/1.73m2 Glucose 60 60 - 115 mg/dL [facility] Calcium 8.6 8.4 - 10.2 mg/dL [facility] 02/22/2025 2:22 PM EDT 02/22/2025 2:25 PM EDT us Generic External Data Provider LAB BLOOD ORDERAB LES Final Result [facility] [address] [place], [place] [phone] * Prothrombin Time-INR (02/22/2025 1:22 PM EDT) Prothrombin Time 11.0 10.9 - 12.4 SEC [facility] INTERNATIONAL NORM RATIO 1.0 0.9 - 1.1 [facility] Comment:INTERNATIONAL NORMAL IZED RATIO (INR) [...] Provider LAB BLOOD ORDERAB LES Final Result [facility] [address] [place] [address] [phone] * (ABNORMAL) CBC auto differential (02/22/2025 1:22 PM EDT) White Blood Count 11.8(H) 4.8 - 10.8 X10*3/uL [facility] Red Blood Count 4.72 4.20 - 5.50 X10*6/uL [facility] Hemoglobin 11.5(L) 12.0 - 16.0 g/dl [facility] Hematocrit 35.2(L) 37.0 - 47.0 % [facility] Mean Corpuscular Volume 74.6(L) 80.0 - 98.0 fL [facility] Mean Corpuscular Hemoglobin 24.4(L) 27.0 - 33.0 pg [facility] Mean Corpuscular HGB Conc 32.7 31.0 - 35.0 g/dl [facility] Red Cell Distribution Width 19.5(H) 11.0 - 16.0 % [facility] Platelet Count 222 160 - 400 X10*3/uL [facility] Mean Platelet Volume 11.7 9.4 - 12.3 fL [facility] Neutrophils Percent Auto 67.7 45 - 73 % [facility] Imm Gran Pct Auto 1.1(H) 0.0 - 0.4 % [facility] Lymphocytes Percent Auto 21.6 20 - 40 % [facility] Monocytes Percent Auto 8.5 2 - 11 % [facility] Eosinophils Percent Auto 0.8 0 - 4 % [facility] Basophils Percent Auto 0.3 0 - 2 % [facility] NRBC Pct Auto 0.0 0.0 - 0.2 /100WBC [facility] Neutrophils Absolute Auto 8.0 2.0 - 8.3 x10*3/uL [facility] Imm Gran Abs Auto 0.13(H) 0.00 - 0.03 X10*3/uL [facility] Lymphocytes Absolute Auto 2.6 1.2 - 4.9 X10*3/uL [facility] Monocytes Absolute Auto 1.0 0.1 - 1.2 X10*3/uL [facility] Eosinophils Absolute Auto 0.1 0.0 - 0.4 X10*3/uL [facility] Basophils Absolute Auto 0.0 0.0 - 0.2 X10*3/uL [facility] NRBC Abs Auto 0.000 0.0 - 0.012 X10*3/uL [facility] 02/22/2025 1:22 PM EDT 02/22/2025 1:25 PM EDT us Generic External Data Provider LAB BLOOD ORDERAB LES Final Result Performing Organization Address City/State/[facility] Co de Phone Number [facility] [address] [place] [phone] documented in this encounter Visit Diagnoses Not on filedocumented in this encounter Additional Health Concerns Assessment Noted Time PHQ-9 Depression Total Score: 0 02/03/20 25 2:44 PM EDT documented as of this encounter Care Teams Pari Mutuel Ticket Cashier Relationship Specialty Start Date End Date Elizabeth Dunn MD [address] [place] [address] PCP - General Family Medicine 03/17/18 Kai Bowden, RN [address] [place] [address] Registered Nurse Family Medicine 02/08/25 Manuela Melendez 02/08/25 Thao Barnhart Engineering Laboratory TechnicianDirect Service Professional 02/07/23 documented as of this encounter
--- OUTSIDE RECORDS SUMMARY | 2025-02-22 16:36 | XMS_ITS | Encounter Summary ---
Author Organization [employer] Address [address] [place] [address] 7t h Floor [place] [phone] Care Team Providers Care Motel Food Service Supervisor Name Role Phone Elizabeth Dunn MD Primary Care Provide r Kai Bowden RN Unavailable [phone] Manuela Melendez Unavailable Reason for Visit * Reason Onset Date Comments Prior Authorization 01/14/2025 PA: Augusto und Encounter Details Date Type Department Care Team ([facility] st Contact Info) Description 01/14/2025 Telephone [facility] MEDICINE [address] [place] [address] Elizabeth Dunn MD 230 [place], [place] [phone] Prior Authorization ( PA: Trish) Social History [...] back to discuss update Contact pt at [phone] ([employer]) * Telephone Encounter - Lo Clemens - 01/14/2025 11:55 AM EDT Tc from pt stating a PA is needed for Tirzepatide-Weight Management (Zepbound) 10 MG/0.5ML solutionauto-injector Contact pt at [phone] ([employer]) documented in this encounter Plan of Treatment Upcoming Encounters Date Type Department Care Team (Late st Contact Info) Description 03/22/2025 2:30 PM EST Telemedicine [facility] MEDICINE [address] [place] [address] Elizabeth Dunn MD [address] [place] [address] 06/07/2025 2:30 PM EST Office Visit [facility] OPTOMETRY [address] [place], [place] [phone] Mulu Osman, OD [address] [place] [address] documented as of this encounter Visit Diagnoses Not on filedocumented in this encounter Additional Health Concerns Assessment Noted Time PHQ-9 Depression Total Score: 0 08/20/19 24 2:32 PM EDT documented as of this encounter Care Teams Motel Food Service Supervisor Relationship Specialty Start Date End Date Elizabeth Dunn MD [address] [place] [address] PCP - General Family Medicine 03/17/18 Kai Bowden, RN [address] [place] [address] Registered Nurse Family Medicine 02/08/25 Manuela Melendez 02/08/25 Thao Barnhart Fine Jewelry Sales AssociateLoss Prevention Supervisor 02/07/23 documented as of this encounter
--- OUTSIDE RECORDS SUMMARY | 2025-02-22 16:36 | XMS_ITS | Encounter Summary ---
Author Organization [employer] Address [address] [place] [address] 7[address] [place] [address] Care Team Providers Care Senior Principal Architect Name Role Phone Elizabeth Dunn MD Primary Care Provide r Kai Bowden RN Unavailable [phone] Manuela Melendez Unavailable Reason for Visit * Reason Onset Date Comments Med Refill 12/04/2022 Encounter Details Date Type Department Care Team (Late st Contact Info) Description 12/04/2022 Telephone [facility] [address] [place] [address] Elizabeth Dunn MD [address] [place], [place] [phone] Med Refill Social History Tobacco Use Types [...] Info) Description 03/22/2025 2:30 PM EST Telemedicine [facility]INE [address] [place] [address] Elizabeth Dunn MD [address] [place] [address] 06/07/2025 2:30 PM EST Office Visit [facility] OPTOMETRY [address] [place], [place] [phone] Mulu Osamn, OD [address] [place] [address] documented as of this encounter Visit Diagnoses Not on filedocumented in this encounter Additional Health Concerns Assessment Noted Time PHQ-9 Depression Total Score: 0 08/03/19 23 3:13 PM EDT documented as of this encounter Care Teams Senior Principal Architect Relationship Specialty Start Date End Date Elizabeth Dunn MD [address] [place] [address] PCP - General Family Medicine 03/17/18 Kai Bowden, RN [address] [place] [address] Registered Nurse Family Medicine 02/08/25 Manuela Melendez 02/08/25 Thao Barnhart Rack PuncherCash Accountant 02/07/23 documented as of this encounter
--- OUTSIDE RECORDS SUMMARY | 2025-02-22 16:36 | XMS_ITS | Patient Health Record ---
Author Organization [facility] Address [address] [place] [address] Care Team Providers Care Order Processing Manager Name Role Phone SHAHRZAD ENRIQUE Primary Care Provider Fracisco Cruz [phone] Allergies Allergen (clinical drug ingredient) Drug/Non Drug [...] Problem Status W/U Status Risk Notes Problem Screening for malignant neoplasm of colon (022101707) Encounter for screening for malignant neoplasm of colon (Z12.11) Active confirmed Problem History of adenomatous polyp of colon (710684893) History of adenomatous polyp of colon (Z86.010) Active confirmed Problem Screening for malignant neoplasm of rectum (990841507) Encounter for screening for malignant neoplasm of rectum (Z12.12) Active confirmed Problem Family History of Cancer of Colon (Situation) (295634042) Family history of colon cancer (Z80.0) Active confirmed Problem Long-term current use of drug therapy (236395435) Long-term use of high-risk medication (Z79.899) Active confirmed Plan Of Treatment Pending Test Test Name Order Date GI BIOPSY 02/05/2016 Future Test Test Name Order Date COLONOSCOPY 10/31/2015 Insurance Providers Payer Name Payer Address Payer Phone Subscriber Number Group Number Insured Name Patient Relationship to Insured Coverage Start Date Coverage End Date [facility] [address] [facility] [place] [id number] MICHAEL SUGGS Self - patient is the insured MEDICAID OF [employer] [address] [place] [id number] MICHAEL SUGGS Self - patient is the insured Medical (General) History Medical History History ICD Code Colonoscopy 2004 and 2009 with small tub ular adenomas removed Depression/Anxiety Fibromyalgia Fluid retention Denies [place],DM,CVA,Lung disease,renal dise ase Surgical History Surgery Date(Month/Year) Laparoscopic gastric bypass in 2005 Breast reduction Panniculectomy Hysterectomy with left oophorectomy Neck surgery--for a disc
[2025-02-22 17:05] VITALS: BP 123/68; PULSE 81; RESP 14; TEMP 36.8; O2SAT 96
== END 2025-02-22 17:05 | disposition home or self-care (01) ==
PROVIDERS: Emergency Provider Emergency Medicine; PCP Internal Medicine
DX: R07.9 Chest pain, unspecified (principal); R51.9 Headache, unspecified; R00.2 Palpitations; I10 Essential (primary) hypertension; E11.9 Type 2 diabetes mellitus without complications; Z79.899 Other long term (current) drug therapy
CPT/HCPCS: 36415; 71045; 80048; 84484; 85025; 85610; 93005; 99284; J1200; J1885; J2765

== ENCOUNTER → 2025-02-22 12:52 | Outpatient (BNV) | payer MEDICAID, SELFPAY | PROVIDERS: Emergency Provider Emergency Medicine; PCP Internal Medicine; Visit Provider Internal Medicine Cardiovascular Disease | DX: R94.31 Abnormal electrocardiogram [ECG] [EKG] (principal); R07.89 Other chest pain | CPT/HCPCS: 93010 ==

== ENCOUNTER → 2025-02-22 14:39 | Outpatient (BNV) | payer MEDICAID, SELFPAY | PROVIDERS: Emergency Provider Emergency Medicine; PCP Internal Medicine; Visit Provider Radiology Diagnostic Radiology | DX: R07.89 Other chest pain (principal); R42 Dizziness and giddiness | CPT/HCPCS: 71045 ==

== ENCOUNTER 2025-03-02 17:47 | Emergency (ER) | payer MEDICAID, SELFPAY ==
--- OUTSIDE RECORDS SUMMARY | 2025-02-28 14:00 | XMS_ITS | Encounter Summary ---
Author Organization [employer] Address [address] [facility] 7t [place] [address] Care Team Providers Care Ripsawyer Name Role Phone Veronika Dunn MD Primary Care Provide r Kai Bowden RN Unavailable [phone] Manuela Melendez Unavailable Reason for Referral * Imaging (Routine) - Canceled Specialty Diagnoses / Procedures Referred By Contac t Referred To Contact Radiology Diagnoses Acute right ankle pain Procedures MR Ankle w/ and w/o Contrast Right Veronika Dunn MD [address] [place] [address] Phone: tel: fax: [address] Phone: tel: fax: Referral ID Status Reason Start Date Expiration Date V isits Requested Visits Authorized [id number] Canceled 02/28/2025 02/28/2026 1 1 * Imaging (Routine) - Canceled Specialty Diagnoses / Procedures Referred By Contac t Referred To Contact Radiology Diagnoses Right foot pain Procedures MR Foot w/ and w/o Contrast Right Veronika Dunn MD [address] [place] [address] Phone: tel: fax: [address] Phone: tel: fax: Referral ID Status Reason Start Date Expiration Date V isits Requested Visits Authorized [id number] Canceled 02/28/2025 02/28/2026 1 1 Reason for Visit * Reason Comments Foot Pain Encounter Details Date Type Department Care Team (Late st Contact Info) Description 02/28/2025 2:00 PM EDT Office Visit [facility] [address] [place] [address] Veronika Dunn MD [address] [place], [place] [phone] Acute right ankle pain; Right foot pain Social History Tobacco Use Types Packs/Day Years [...] Sign Reading Time Taken Comments Blood Pressure 128/83 02/28/2025 1:40 PM EDT Pulse 69 02/28/2025 1:40 PM EDT Temperature 36.2 C (97.1 F) 02/28/2025 1:40 PM EDT Respiratory Rate 17 02/28/2025 1:40 PM EDT Oxygen Saturation 96% 02/28/2025 1:40 PM EDT Inhaled Oxygen Concentration - - Weight 91.4 kg (201 lb 9.6 oz) 02/28/2025 1:40 PM EDT Height 165.1 cm (5' 5 ) 02/28/2025 1:40 PM EDT Body Mass Index 33.55 02/28/2025 1:40 PM EDT documented in this encounter Progress Notes * Veronika Goncalves MD - 02/28/2025 2:00 PM EDT SUBJECTIVE: Lelo Rivas is a 65 y.o. year old female who presents for acute visit . Acute Concerns: Patient reports acute on chronic pain on her right foot and ankle, I saw her for this same complaint on 2025 I prescribed for her prednisone taper dose, she tells me she had some relief from it but then pain came back she has been also seen in the emergency room because of this pain all test came back negative I reviewed with her lab results uric acid which was elevated, she tells me pain is so severe that she cannot sleep she has not been able to sleep well for the past 4 days because of the pain on her right foot and now also she is having pain on her left foot Social History Social History Narrative Not on file Problem List[1] Family History[2] Review of Systems Constitutional: Negative. HENT: Negative. Respiratory: Negative. Cardiovascular: Negative. Musculoskeletal: Positive for arthralgias, joint swelling and myalgias. OBJECTIVE: Vitals: 02/28/25 1340 BP: 128/83 BP Location: Right arm Patient Position: Sitting BP Cuff Size: Adult Pulse: 69 Resp: 17 Temp: 97.1 ??F (36.2 ??C) TempSrc: Temporal SpO2: 96% Weight: 201 lb 9.6 oz (91.4 kg) Height: 5' 5 (1.651 m) Physical Exam Constitutional: Appearance: Normal appearance. Cardiovascular: Rate and Rhythm: Normal rate and regular rhythm. Pulmonary: Effort: Pulmonary effort is normal. Breath sounds: Normal breath sounds. Abdominal: General: Abdomen is flat. Palpations: Abdomen is soft. Musculoskeletal: Right ankle: Swelling present. Tenderness present. Decreased range of motion. Left ankle: Swelling present. Tenderness present. Decreased range of motion. Comments: AP plan tenderness more on the right foot than the left foot, tenderness is localized on anterior area of the ankle (right side) Neurological: Mental Status: She is alert. Follow Up: No follow-ups on file. Medications Ordered Prior to Encounter[3] Problem List Items Addressed This Visit Acute right ankle pain I will order an MRI of of her ankle and contact her with results I will prescribe for her colchicine initial dose 2 capsules then after 1 hour another 1 for the first day and then 1 capsule twice a day for maintenance Relevant Medications Colchicine 0.6 MG capsule Other Relevant Orders MR Ankle w/ and w/o Contrast Right Right foot pain I will order an MRI of of her footand contact her with results I will prescribe for her colchicine initial dose 2 capsules then after 1 hour another 1 for the first day and then 1 capsule twice a day for maintenance Relevant Medications Colchicine 0.6 MG capsule Other Relevant Orders MR Foot w/ and w/o Contrast Right [1] Patient Active Problem List Diagnosis Acute [...] episode of recurrent major depressive disorder (CMS/HCC) ([facility]) Asthma COVID-19 Diabetes 1.5, managed as type [...] high-risk medication T2DM (type 2 diabetes mellitus) ([facility]) Encounter for screening for malignant neoplasm of colon Encounter for screening for malignant neoplasm of rectum Acute nontraumatic kidney injury Acute pain of right shoulder Class 1 obesity due to excess calories with serious comorbidity and body mass index (BMI) of 34.0 to 34.9 in adult Diabetic mononeuropathy simplex ([facility]) Right foot pain Left foot pain Polyarthralgia Acute right ankle pain [2] No family history on file. [3] [...] MOUTH EVERY MORNING 90 tablet 3 Lancets [facility] [place] Use to test blood sugar 1 times daily 100 each 1 lidocaine (Lidoderm) 5 % patch APPLY 1 PATCH TOPICALLY ONCE PER DAY. REMOVE & DISCARD PATCH WITHIN 12 HOURS OR DIRECTED BY . 30 patch 1 melatonin 5 MG tablet Take 1 tablet by mouth if needed at bedtime. metFORMIN XR (Glucophage-XR) 500 MG 24 hr tablet TAKE 1 TABLET BY MOUTH TWICE A DAY 180 tablet 1 naloxone (Narcan) 4 mg/0.1 mL nasal spray PLEASE SEE ATTACHED FOR DETAILED DIRECTIONS [] predniSONE (Deltasone) 10 MG tablet Take 1 tablet (10 mg) by mouth 5 (five) times a day for 2 days, THEN 1 tablet (10 mg) 4 times daily for 2 days, THEN 1 tablet (10 mg) 3 times daily for 2days, THEN 1 tablet (10 mg) 2 times daily for 2 days, THEN 1 tablet (10 mg) Once per day for 2 days. 30 tablet 0 pregabalin (Lyrica) 225 MG capsule TAKE 1 CAPSULE BY MOUTH TWICE A DAY 60 capsule 2 Tirzepatide (Mounjaro) 10 MG/0.5ML solution auto-injector Inject 10 mg under the skin 1 (one) time per week. 2 mL 0 Tirzepatide (Mounjaro) 12.5 MG/0.5ML solution auto-injector Inject 12.5 mg under the skin 1 (one) time per week. 2 mL 2 traZODone (Desyrel) 100 MG tablet take 3 tablets by mouth every day at bedtime venlafaxine XR (Effexor XR) 150 MG 24 hr capsule TOME 2 C PSULAS POR V A ORAL TODOS LOS D EN LA MA JESSICA No current facility-administered medications on file prior to visit. documented in this encounter Miscellaneous Notes * Assessment & Plan Note - Veronika Goncalves MD - 02/28/2025 4:09 PM EDT Associated Problem(s): Right foot pain I will order an MRI of of her footand contact her with results I will prescribe for her colchicine initial dose 2 capsules then after 1 hour another 1 for the first day and then 1 capsule twice a day for maintenance * Assessment & Plan Note - Veronika Goncalves MD - 02/28/2025 4:08 PM EDT Associated Problem(s): Acute right ankle pain I will order an MRI of of her ankle and contact her with results I will prescribe for her colchicine initial dose 2 capsules then after 1 hour another 1 for the first day and then 1 capsule twice a day for maintenance * Addendum Note - Veronika Goncalves MD - 02/28/2025 2:00 PM EDTAddended by: VERONIKA DUVALL on: 03/01/2025 02:56 PM Modules accepted: Orders documented in this encounter Plan of Treatment Upcoming Encounters Date Type Department Care Team (Late st Contact Info) Description 03/22/2025 2:30 PM EST Telemedicine [facility] [address] [place] [address] Veronika Dunn MD [address] [place] [address] 06/07/2025 2:30 PM EST Office Visit [facility] OPTOMETRY [address] [place] [address] Mulu Osman, OD [address] [place] [address] Scheduled Orders Name Type Priority Associated Diagnoses Orde r Schedule MR Foot w/ and w/o Contrast Right Imaging Routine Right foot pain Expected: 02/28/2025, Expires: 02/28/2026 MR Ankle w/ and w/o Contrast Right Imaging Routine Acute right ankle pain Expected: 02/28/2025, Expires: 02/28/2026 documented as of this encounter Visit Diagnoses Diagnosis Acute right ankle pain Right foot pain Pain in soft tissues of limb documented in this encounter Additional Health Concerns Assessment Noted Time PHQ-9 Depression Total Score: 0 02/03/20 25 2:44 PM EDT documented as of this encounter Care Teams Ripsawyer Relationship Specialty Start Date End Date Veronika Dunn MD [address] [place] [address] PCP - General Family Medicine 03/17/18 Kai Bowden, MATT [address] [place] [address] Registered Nurse Family Medicine 02/08/25 Manuela Melendez 02/08/25 Thao Barnhart Drapery And Upholstery MeasurerConcrete Polisher 02/07/23 documented as of this encounter
[2025-03-02 17:55] VITALS: BP 150/88; PULSE 81
[2025-03-02 18:27] VITALS: BP 113/58; PULSE 77; RESP 18; TEMP 36.2; O2SAT 94; BMI 33.3
--- NOTE | 2025-03-02 18:30 | ED_ITS ---
HPI - General Adult General Chief complaint: Extremity Problem Stated complaint: foot pain, swelling Related Data Home Medications ?Medication ?Instructions ?Recorded ?Confirmed aripiprazole 10 mg tablet 10 mg PO DAILY 01/23/2404/11 ferrous sulfate 325 mg (65 mg 325 mg PO DAILY 01/23/24 04/23/24 iron) tablet,delayed release trazodone 100 mg tablet 300 mg PO BEDTIME 01/23/24 1 06/24/23 venlafaxine 150 mg 300 mg PO QAM 01/23/2404/23 capsule,extended release 24 hr semaglutide (weight loss) 0.25 0.25 mg subcut QWEEK mg/0.5 mL subcutaneous pen injector (Wegovy) gabapentin 300 mg capsule 300 mg PO BID 08/12/24 Previous Rx's ?Medication ?Instructions ?Recorded clonazepam 1 mg tablet 1 mg PO BID 30 days #60 tabs 12/16/22 albuterol sulfate 90 mcg/actuation 1 inh inhalation QI D PRN shortness 08/12/23 aerosol inhaler of breath or wheezing #6.7 g kulwinder gabapentin 600 mg tablet 600 mg PO BEDTIME #30 tabs 0 08/12/23 hydrochlorothiazide 50 mg tablet 50 mg PO DAILY #30 ta bs 08/12/23 metformin 500 mg tablet,extended 500 mg PO BIDWM #60 t abs 08/12/23 release 24 hr polyethylene glycol 3350 17 gram 17 g PO DAILY #30 ea 08/12/23 oral powder packet sennosides 8.6 mg-docusate sodium 2 tab PO BID #120 ta bs 08/12/23 50 mg tablet (Senna Plus) acetaminophen 500 mg capsule 1,000 mg (2 x 500 mg) PO TID PRN 09/25/23 pain #90 caps methocarbamol 750 mg tablet 750 mg PO TID moderate yfn n & 09/25/23 muscle spasms #30 tabs lidocaine 5 % topical patch 1 patch topical DAILY #30 ea 11/13/23 ketorolac 10 mg tablet 10 mg PO Q8H 3 days #9 tabs 03/01/24 lidocaine 5 % topical patch 1 patch topical DAILY #30 ea 03/01/24 (Lidoderm) naloxone 4 mg/actuation nasal 4 mg intranasal Q2M PRN opioid 08/12/24 spray (Narcan) overdose #2 ea oxycodone 5 mg tablet 5 mg PO Q8H PRN pain 10 days #30 08/12/24 tabs doxycycline hyclate 100 mg capsule 100 mg PO BID #13 c aps 02/07/25 ketorolac 10 mg tablet 10 mg PO Q6H PRN pain #20 ta bs 02/07/25 docusate sodium 100 mg capsule 100 mg PO DAILY #30 cap s 02/12/25 (Colace) polyethylene glycol 3350 17 gram 17 g PO DAILY #30 ea 02/12/25 oral powder packet (Miralax) Allergies Allergy/AdvReac Type Severity Reaction Status Date / Time morphine (MORPHINE) Allergy Intermediate PALPITATIONS, Verified 03/02/25 18:30 tachicardia quetiapine (Seroquel) Allergy Intermediate Aggitation Verified 03/02/25 18:30 orphenadrine (ORPHENADRINE) AdvReac Intermediate RAPID Verified 03/02/25 18:30 HEART RATE PMFSH Past Medical History Medical History Weakness Arthritis History of brain inflammation Protrusion of lumbar intervertebral disc Tinnitus Venous insufficiency Osteoarthritis Loss of hair History of headache Fibromyositis Fatigue Hyperlipidemia HTN (hypertension) Continuous opioid dependence Sinusitis Anemia Anxiety Diverticulosis Chronic idiopathic constipation Migraine Asthma Depression Diabetes 1.5, managed as type 2 Fibromyalgia Surgical History History of back surgery History of esophagogastroduodenoscopy (EGD) S/P panniculectomy Hx of hysterectomy Hx of oophorectomy Hx of bilateral breast reduction surgery H/O colonoscopy History of pubovaginal sling Gastric bypass status for obesity Family History Family History Mother Colon cancer Social History Social History Household Members: Spouse and Children Household Members Other:: lives alone Housing: House Are you a primary care administrative tech to a significant other at home: No Do you presently have visiting nurse or other home services: Yes ([employer]) Alcohol intake: never Comment: IV infiltrated Patient Tobacco Use Status: Never used Tobacco Second Hand Smoke Exposure: No Advance Directives: Yes Advance Directives on File: Yes Advance Directives Date on File: 07/24/23 service: No Current occupational status: disabled Sexual orientation: Straight/Heterosexual Gender identity: Female Physical Exam ED Vital Signs: Vital Signs - 24 hr 03/02/25 18:27 Temperature 97.2 F Pulse Rate 77 Respiratory Rate 18 Blood Pressure 113/58 L Pulse Oximetry 94 Oxygen Delivery Method Room Air BMI result Body Mass Index 33.3 Course Course Course Narrative: This is a Rapid Medical Examination (RME) performed by Shabana Turner PA-C in triage. Full HPI, ROS, assessment and treatment plan per primary provider in the Main ED. Hx: 65 yo F here for eval of b/l foot pain/swelling. Recently diagnosed with gout by PCP. Meds sent to pharmacy, not in covered by insurance so she has been unable to pick them up. Plan: labs Reevaluation(s) Reevaluation #1: Patient left the emergency department before myself or any of the other clinicians could review or explain physical exam findings, test results, need or lack there of for additional testing, treatment options, or a treatment plan. Medical Decision Making Lab Data 03/02/25 18:37 03/02/25 18:37 Labs: Lab Results 03/02/25 Range/Units 18:37 WBC 10.3 (4.8-10.8) X10*3/uL RBC 5.02 (4.20-5.50) X10*6/uL Hgb 12.0 (12.0-16.0) g/dl Hct 38.8 (37.0-47.0) % MCV 77.3 L (80.0-98.0) fL MCH 23.9 L (27.0-33.0) pg MCHC 30.9 L (31.0-35.0) g/dl RDW 20.0 H (11.0-16.0) % Plt Count 247 (160-400) X10*3/uL MPV 10.6 (9.4-12.3) fL Immature Gran % (Auto) 0.7 H (0.0-0.4) % Neut % (Auto) 64.8 (45-73) % Lymph % (Auto) 26.6 (20-40) % Karnes % (Auto) 6.1 (2-11) % Eos % (Auto) 1.5 (0-4) % Baso % (Auto) 0.3 (0-2) % Lymph # (Auto) 2.7 (1.2-4.9) X10*3/uL Karnes # (Auto) 0.6 (0.1-1.2) X10*3/uL Eos # (Auto) 0.2 (0.0-0.4) X10*3/uL Baso # (Auto) 0.0 (0.0-0.2) X10*3/uL Abs Immat Gran (auto) 0.07 H (0.00-0.03) X10*3/uL Absolute Neuts (auto) 6.7 (2.0-8.3) x10*3/uL Absolute Nucleated RBC 0.000 (0.0-0.012) X10*3/uL Nucleated RBC % (auto) 0.0 (0.0-0.2) /100WBC Sodium 144 (135-145) mmol/L Potassium 4.6 (3.3-5.1) mmol/L Chloride 106 (96-108) mmol/L Carbon Dioxide 29 (22-29) mmol/L Anion Gap 14 (12-20) BUN 21 H (9-16) mg/dL Creatinine 1.09 (0.5-1.4) mg/dL Estim Creat Clear Calc 58.7 Estimated GFR 51 Random Glucose 84 (60-115) mg/dL Uric Acid 7.0 H (2.4-5.7) mg/dL Calcium 9.3 D (8.4-10.2) mg/dL Magnesium 2.1 (1.6-2.6) mg/dL Total Bilirubin 0.2 (0.0-1.0) mg/dL AST 19 (5-31) U/L ALT 15 (0-31) U/L Alkaline Phosphatase 83 (39-117) U/L NT-Pro-B Natriuret Pep 27.4 (<300) pg/mL Total Protein 7.6 (6.5-8.0) g/dL Albumin 4.4 (3.5-5.0) g/dL Discharge Plan Discharge Clinical Impression: Foot pain Patient Disposition: Left W/O Completing Treatment Prescriptions: No Action clonazepam 1 mg tablet 1 mg PO BID 30 Days Qty: 60 0RF albuterol sulfate 90 mcg/actuation HFA aerosol inhaler 1 inh inhalation QID PRN (Reason: shortness of breath or wheezing) Qty: 6.7 0RF gabapentin 600 mg tablet 600 mg PO BEDTIME Qty: 30 0RF hydrochlorothiazide 50 mg tablet 50 mg PO DAILY Qty: 30 0RF polyethylene glycol 3350 17 gram powder in packet 17 g PO DAILY Qty: 30 0RF sennosides-docusate sodium [Senna Plus] 8.6-50 mg Tablet 2 tab PO BID Qty: 120 0RF metformin 500 mg Tablet Extended Release 24 Hr 500 mg PO BIDWM Qty: 60 0RF lidocaine 5 % adhesive patch,medicated 1 patch topical DAILY Qty: 30 0RF Rx Instructions: leave on most painful area for up to 12 hrs ketorolac 10 mg tablet 10 mg PO Q8H 3 Days Qty: 9 0RF lidocaine [Lidoderm] 5 % adhesive patch,medicated 1 patch topical DAILY Qty: 30 0RF Rx Instructions: leave on most painful area for up to 12 hrs doxycycline hyclate 100 mg capsule 100 mg PO BID Qty: 13 0RF ketorolac 10 mg tablet 10 mg PO Q6H PRN (Reason: pain) Qty: 20 0RF Rx Instructions: maximum total duration of 5 days from all oral, intranasal, or parenteral formulations. Patient received an intramuscular dose of Toradol here in the emergency room. polyethylene glycol 3350 [Miralax] 17 gram powder in packet 17 g PO DAILY Qty: 30 0RF docusate sodium [Colace] 100 mg capsule 100 mg PO DAILY Qty: 30 0RF Wegovy 0.25 mg/0.5 mL pen injector 0.25 mg subcut QWEEK gabapentin 300 mg capsule 300 mg PO BID oxycodone 5 mg tablet 5 mg PO Q8H PRN (Reason: pain) 10 Days Qty: 30 0RF Rx Instructions: Partial Fill upon patient request. naloxone [Narcan] 4 mg/actuation spray,non-aerosol 4 mg intranasal Q2M PRN (Reason: opioid overdose) Qty: 2 0RF Rx Instructions: spray 1 dose into ONE nostril; alternate nostrils w each dose until help arrives methocarbamol 750 mg tablet 750 mg PO TID Qty: 30 0RF acetaminophen 500 mg capsule 1,000 mg PO TID PRN (Reason: pain) Qty: 90 0RF aripiprazole 10 mg tablet 10 mg PO DAILY venlafaxine 150 mg capsule,extended release 24hr 300 mg PO QAM trazodone 100 mg tablet 300 mg PO BEDTIME ferrous sulfate 325 mg (65 mg iron) tablet,delayed release (DR/EC) 325 mg PO DAILY Discharge Date/Time: 03/02/25 22:20
[2025-03-02 18:42] LABS: MANUAL DIFF FLAG NO
[2025-03-02 18:45] LABS: Hematocrit 38.8 % (37.0-47.0); Hemoglobin 12.0 g/dl (12.0-16.0); Imm Gran Abs Auto 0.07 X10*3/uL (0.00-0.03); Imm Gran Pct Auto 0.7 % (0.0-0.4); Lymphocytes Absolute Auto 2.7 X10*3/uL (1.2-4.9); Mean Corpuscular HGB Conc 30.9 g/dl (31.0-35.0); Mean Corpuscular Hemoglobin 23.9 pg (27.0-33.0); Mean Corpuscular Volume 77.3 fL (80.0-98.0); NRBC Abs Auto 0.000 X10*3/uL (0.0-0.012); NRBC Pct Auto 0.0 /100WBC (0.0-0.2); Platelet Count 247 X10*3/uL (160-400); Red Blood Count 5.02 X10*6/uL (4.20-5.50); White Blood Count 10.3 X10*3/uL (4.8-10.8)
[2025-03-02 19:01] LABS: Alanine Aminotransferase 15 U/L (0-31); Albumin Level 4.4 g/dL (3.5-5.0); Alkaline Phosphatase 83 U/L (39-117); Anion Gap 14 (12-20); Aspartate Amino Transferase 19 U/L (5-31); Blood Urea Nitrogen 21 mg/dL (9-16); Calcium 9.3 mg/dL (8.4-10.2); Carbon Dioxide 29 mmol/L (22-29); Chloride 106 mmol/L (96-108); Creatinine Clr Calc Pharmacy 58.7; Estimated Glomerular Filt Rate 51; Magnesium 2.1 mg/dL (1.6-2.6); Potassium 4.6 mmol/L (3.3-5.1); Sodium 144 mmol/L (135-145); Total Protein 7.6 g/dL (6.5-8.0)
[2025-03-02 19:03] LABS: NT Pro B Type Natriuretic Pept 27.4 pg/mL (<300)
[2025-03-02 19:15] LABS: Uric Acid 7.0 mg/dL (2.4-5.7)
--- OUTSIDE RECORDS SUMMARY | 2025-03-02 22:50 | XMS_ITS | Encounter Summary ---
Author Organization [employer] Address 75 [facility] 7t h Floor [place] [id number] Care Team Providers Care Dry Wall Sprayer Name Role Phone Elizabeth Dunn MD Primary Care Provide r Kai Bowden RN Unavailable [phone] Manuela Melendez Unavailable Reason for Visit * Reason Onset Date Comments Med Refill 06/21/2024 Encounter Details Date Type Department Care Team ([facility] st Contact Info) Description 06/21/2024 Telephone [facility] MEDICINE [address] [place] [address] Elizabeth Dunn MD 230 [place], [place] [phone] Med Refill Social History Tobacco Use Types [...] 500 MG tablet To be sent to: [facility]/pharmacy #[id number] documented in this encounter Plan of Treatment Upcoming Encounters Date Type Department Care Team (Late st Contact Info) Description 03/22/2025 2:30 PM EST Telemedicine [facility] MEDICINE [address] [place], [place] [phone] Elizabeth Dunn MD 230 [place] [address] 06/07/2025 2:30 PM EST Office Visit [facility] OPTOMETRY [address] [place], [place] [phone] Mulu Osman, OD 230 [place] [address] documented as of this encounter Visit Diagnoses Not on filedocumented in this encounter Additional Health Concerns Assessment Noted Time PHQ-9 Depression Total Score: 0 08/20/19 24 2:32 PM EDT documented as of this encounter Care Teams Dry Wall Sprayer Relationship Specialty Start Date End Date Elizabeth Dunn MD [address] [place], [place] [phone] PCP - General Family Medicine 03/17/18 Kai Bowden, MATT [address] [place] [address] Registered Nurse Family Medicine 02/08/25 Manuela Melendez 02/08/25 Thao Barnhart Pearl FishermanEntry Level Drafter 02/07/23 documented as of this encounter
--- OUTSIDE RECORDS SUMMARY | 2025-03-02 22:50 | XMS_ITS | Clinical Summary ---
Author Organization [facility] Address [address] [place] [address] Phone Care Team Providers Care Longwall Machine Operator Helper Name Role Phone Elizabeth [...] 03/18/2024 Microcytic anemia 03/18/2024 Benzodiazepine dependence ([facility] V24, [facility] V28) 03/18/2024 Blurring of visual image 03/18/2024 Chronic idiopathic constipation 03/18/2024 T2DM (type 2 diabetes mellitus) ([facility] V24, [facility] S/[facility] V28) 03/18/2024 Injury of kidney 03/18/2024 Tinnitus [...] patient's age to complete this topic Insurance * Guarantor: Lelo Rivas Account Type Relation to Patient Date of Phone Billing Address Personal/Family Self [address] [id number] MEDICAID - [place] Care Teams Longwall Machine Operator Helper Relationship Specialty Start Date End Date Elizabeth Dunn MD [address] [phone] PCP - General Internal Medicine 02/12/24
--- OUTSIDE RECORDS SUMMARY | 2025-03-02 22:50 | XMS_ITS | Encounter Summary ---
Author Organization [employer] Address [address] [facility] 7t [place] [address] Care Team Providers Care Seed Corn Production Manager Name Role Phone Elizabeth Dunn MD Primary Care Provide r Kai Bowden RN Unavailable [phone] Manuela Melendez Unavailable Reason for Visit * Reason Onset Date Comments Nurse Triage 11/26/2023 Encounter Details Date Type Department Care Team ([facility] st Contact Info) Description 11/26/2023 Telephone [facility] MEDICINE [address] [place] [address] Elizabeth Dunn MD 230 [place], [place] [phone] Nurse Triage Social History Tobacco Use Types [...] to PT. Per pt has not called therapeutic specialist to notify of increased pain with [...] 03/22/2025 2:30 PM EST Telemedicine [facility] MEDICINE [address] [place] [address] Elizabeth Dunn MD [address] [place] [address] 06/07/2025 2:30 PM EST Office Visit [facility] OPTOMETRY [address] [place] [address] Dawson, Mulu, OD [address] [place] [address] documented as of this encounter Visit Diagnoses Not on filedocumented in this encounter Additional Health Concerns Assessment Noted Time PHQ-9 Depression Total Score: 0 08/20/19 24 2:32 PM EDT documented as of this encounter Care Teams Seed Corn Production Manager Relationship Specialty Start Date End Date Elizabeth Dunn MD [address] [place] [address] PCP - General Family Medicine 03/17/18 Kai Bowden, RN [address] [place] [address] Registered Nurse Family Medicine 02/08/25 Manuela Melendez 02/08/25 Thao Barnhart Crop Quantitative GeneticistDirt Bike Mechanic 02/07/23 documented as of this encounter
--- OUTSIDE RECORDS SUMMARY | 2025-03-02 22:50 | XMS_ITS | Encounter Summary ---
Author Organization [employer] Address 75 [facility] 7t h Floor [place] [phone] Care Team Providers Care Tax Lawyer Name Role Phone Elizabeth Dunn MD Primary Care Provide r Kai Bowden RN Unavailable [phone] Manuela Melendez Unavailable Reason for Visit * Reason Comments Med Refill Encounter Details Date Type Department Care Team ([facility] st Contact Info) Description 12/15/2024 Refill [facility] MEDICINE [address] [place] [address] Elizabeth Dunn MD 230 [place] [address] Social History Tobacco Use Types Packs/Day Years [...] Info) Description 03/22/2025 2:30 PM EST Telemedicine [facility] MEDICINE [address] [place] [address] Elizabeth Dunn MD [address] [place] [address] 06/07/2025 2:30 PM EST Office Visit [facility] OPTOMETRY [address] [place] [address] Dawson, Mulu, OD 230 [place] [address] documented as of this encounter Visit Diagnoses Not on filedocumented in this encounter Additional Health Concerns Assessment Noted Time PHQ-9 Depression Total Score: 0 08/20/19 24 2:32 PM EDT documented as of this encounter Care Teams Tax Lawyer Relationship Specialty Start Date End Date Elizabeth Dunn MD [address] [place] [address] PCP - General Family Medicine 03/17/18 Kia Bowden RN [address] [place] [address] Registered Nurse Family Medicine 02/08/25 Manuela Melendez 02/08/25 Thao Barnhart Full TimeDewatering Filtering Supervisor 02/07/23 documented as of this encounter
--- OUTSIDE RECORDS SUMMARY | 2025-03-02 22:50 | XMS_ITS | Encounter Summary ---
Author Organization [employer] Address [address] [place] [address] 7t [place] [address] Care Team Providers Care Allied Health Teacher Name Role Phone Elizabeth Dunn MD Primary Care Provide r Kai Bowden RN Unavailable [phone] Manuela Melendez Unavailable Encounter Details Date Type Department Care Team (Late st Contact Info) Description 01/29/2023 Orders Only [facility] MEDICINE [address] [place] [address] [phone] ProviderHector MD Social History Tobacco Use Types [...] Info) Description 03/22/2025 2:30 PM EST Telemedicine [facility] MEDICINE [address] [place] [address] [phone] Elizabeth Dunn MD 230 [place], [place] [phone] 06/07/2025 2:30 PM EST Office Visit [facility] OPTOMETRY [address] [place] [address] Mulu Osman, OD [address] [place] [address] documented as of this encounter Procedures Procedure [...] documented as of this encounter Care Teams Allied Health Teacher Relationship Specialty Start Date End Date Elizabeth Dunn MD [address] [place], [place] [phone] PCP - General Family Medicine 03/17/18 Kai Bowden, RN [address] [place] [address] Registered Nurse Family Medicine 02/08/25 Manuela Melendez 02/08/25 Thao Barnhart Motorcycle Riding InstructorHousehold Chores 02/07/23 documented as of this encounter
--- OUTSIDE RECORDS SUMMARY | 2025-03-02 22:50 | XMS_ITS | Encounter Summary ---
Author Organization [employer] Address [address] [facility] 7t [place] [address] Care Team Providers Care Schedule Hanger Name Role Phone Elizabeth Dunn MD Primary Care Provide r Kai Bowden RN Unavailable [phone] Manuela Melendez Unavailable Encounter Details Date Type Department Care Team (Late st Contact Info) Description 03/01/2025 Orders Only [facility] MEDICINE [address] [place] [address] Elizabeth Dunn MD 230 [place] [address] Acute right ankle pain; Right foot pain [...] 03/22/2025 2:30 PM EST Telemedicine [facility] MEDICINE [address] [place] [address] Elizabeth Dunn MD [address] [place] [address] 06/07/2025 2:30 PM EST Office Visit [facility] OPTOMETRY [address] [place] [address] Dawson, Mulu, OD 230 [place] [address] documented as of this encounter Visit Diagnoses Diagnosis Acute right ankle pain Right foot pain Pain in soft tissues of limb documented in this encounter Additional Health Concerns Assessment Noted Time PHQ-9 Depression Total Score: 0 02/03/20 25 2:44 PM EDT documented as of this encounter Care Teams Schedule Hanger Relationship Specialty Start Date End Date Elizabeth Dunn MD [address] [place] [address] PCP - General Family Medicine 03/17/18 Kai Bowden, RN [address] [place] [address] Registered Nurse Family Medicine 02/08/25 Manuela Melendez 02/08/25 Thao Barnhart Dynamite ReclaimerPoultry Packer 02/07/23 documented as of this encounter
--- OUTSIDE RECORDS SUMMARY | 2025-03-02 22:50 | XMS_ITS | Encounter Summary ---
Author Organization [employer] Address 75 [facility] 7t h Floor [place] [phone] Care Team Providers Care Conveyor Feeder Name Role Phone Elizabeth Dunn MD Primary Care Provide r Kai Bowden RN Unavailable [phone] Manuela Melendez Unavailable Reason for Visit * Reason Onset Date Comments Med Refill 03/01/2025 Encounter Details Date Type Department Care Team (Late st Contact Info) Description 03/01/2025 Refill [facility] MEDICINE [address] [place] [address] Elizabeth Dunn MD 230 [place] [address] Acute right ankle pain; Right foot pain [...] encounter Miscellaneous Notes * Telephone Encounter - Kimberly Alcaraz LPN - 03/01/2025 2:53 PM EDT Was not sent yesterday * Telephone Encounter - Lo Clemens - 03/01/2025 2:49 PM EDT TC from pt requesting medication refill. Medications needing refill : Colchicine 0.6 MG capsule To be sent to: [facility]/pharmacy #[id number] [place], [place] - [address] [place] [address] documented in this encounter Plan of Treatment Upcoming Encounters Date Type Department Care Team (Late st Contact Info) Description 03/22/2025 2:30 PM EST Telemedicine [facility] MEDICINE [address] [place] [address] Elizabeth Dunn MD [address] [place], [place] [phone] 06/07/2025 2:30 PM EST Office Visit [facility] OPTOMETRY [address] [place], [place] [phone] Dawson, Mulu, OD 230 [place] [address] documented as of this encounter Visit Diagnoses Diagnosis Acute right ankle pain Right foot pain Pain in soft tissues of limb documented in this encounter Additional Health Concerns Assessment Noted Time PHQ-9 Depression Total Score: 0 02/03/20 2:44 PM EDT documented as of this encounter Care Teams Conveyor Feeder Relationship Specialty Start Date End Date Elizabeth Dunn MD 230 [place], [place] [phone] PCP - General Family Medicine 03/17/18 Kai Bowden, MATT [address] [place] [address] Registered Nurse Family Medicine 02/08/25 Manuela Melendez 02/08/25 Thao Barnhart Etl TesterEmbroiderer 02/07/23 documented as of this encounter
--- OUTSIDE RECORDS SUMMARY | 2025-03-02 22:50 | XMS_ITS | Encounter Summary ---
Author Organization [employer] Address [address] [place] [address] 7t [place] [address] Care Team Providers Care Chicken Vaccinator Name Role Phone Elizabeth Dunn MD Primary Care Provide r Kai Bowden RN Unavailable [phone] Manuela Melendez Unavailable Encounter Details Date Type Department Care Team (Late st Contact Info) Description 05/17/2022 Abstract [facility] MEDICINE [address] [place] [address] Linda Romero, PharmD [address] [place] [address] Social History Tobacco Use Types Packs/Day Years [...] Description 03/22/2025 2:30 PM EST Telemedicine [facility] MEDICINE [address] [place] [address] Elizabeth Dunn MD [address] [place] [address] 06/07/2025 2:30 PM EST Office Visit [facility] OPTOMETRY [address] [place] [address] Mulu Osman, OD 230 [place] [address] documented as of this encounter Visit Diagnoses Not on filedocumented in this encounter Care Teams Chicken Vaccinator Relationship Specialty Start Date End Date Elizabeth Dunn MD [address] [place], [place] [phone] PCP - General Family Medicine 03/17/18 Kai Bowden, MATT [address] [place] [address] Registered Nurse Family Medicine 02/08/25 Manuela Melendez 02/08/25 Thao Barnhart Technician TraineeLibrary Paraprofessional 02/07/23 documented as of this encounter
--- OUTSIDE RECORDS SUMMARY | 2025-03-02 22:51 | XMS_ITS | Encounter Summary ---
Author Organization [employer] Address 75 [facility] 7t h Floor [place] [phone] Care Team Providers Care Neck Skewer Name Role Phone Elizabeth Dunn MD Primary Care Provide r Kai Bowden RN Unavailable [phone] Manuela Melendez Unavailable Encounter Details Date Type Department Care Team (Late st Contact Info) Description 01/12/2025 Orders Only [facility] MEDICINE [address] [place] [address] Elizabeth Dunn MD 230 [place] [address] Social History Tobacco Use Types Packs/Day Years [...] Info) Description 03/22/2025 2:30 PM EST Telemedicine [facility] MEDICINE [address] [place] [address] Elizabeth Dunn MD [address] [place] [address] 06/07/2025 2:30 PM EST Office Visit [facility] OPTOMETRY [address] [place] [address] Dawson, Mulu, OD 230 [place] [address] documented as of this encounter Visit Diagnoses Not on filedocumented in this encounter Additional Health Concerns Assessment Noted Time PHQ-9 Depression Total Score: 0 08/20/19 24 2:32 PM EDT documented as of this encounter Care Teams Neck Skewer Relationship Specialty Start Date End Date Elizabeth Dunn MD 230 [place] [address] PCP - General Family Medicine 03/17/18 Kai Bowden, MATT [address] [place] [address] Registered Nurse Family Medicine 02/08/25 Manuela Melendez 02/08/25 Thao Barnhart Offal BalerMechatronics Technologist 02/07/23 documented as of this encounter
--- OUTSIDE RECORDS SUMMARY | 2025-03-02 22:51 | XMS_ITS | Clinical Summary ---
Author Organization [employer] Address [address] [facility] 7[address] [place] [address] Care Team Providers Care Animation Director Name Role Phone Elizabeth Dunn MD Primary Care Provide r Kai Bowden RN Unavailable [phone] Manuela Melendez Unavailable Allergies Active Allergy [...] time per week. 2 mL 2 Active Colchicine 0.6 MG capsuleIndication s:Acute right ankle pain,Right foot pain First day 1.2 mg at the first sign of flare followed by 0.6 mg after 1 hour second day and thereafter: 0.6 mg twice daily until flare resolves 60 capsule 1 Active oxyCODONE (Roxicodone) 5 MG immediate release [...] and 1 tablet before bedtime. 2024 Discontinued predniSONE (Deltasone) 10 MG tabletIndications :Right foot [...] for 2 days. 30 tablet 025 2024 Colchicine 0.6 MG capsuleIndication s:Acute right ankle pain,Right foot pain Day 1: Oral: 1.2 mg at the first sign of flare, followed by 0.6 mg after 1 hour; maximum total dose: 1.8 mg/day on day 1 Day 2 and thereafter: Oral: 0.6 mg once or twice daily until flare resolves 60 capsule 1 025 2024 Discontinued(R eorder (will not trigger notification to Pharmacy)) Colchicine 0.6 MG capsuleIndication s:Acute right ankle pain,Right foot pain Day 1: Oral: 1.2 mg at the first sign of flare, followed by 0.6 mg after 1 hour; maximum total dose: 1.8 mg/day on day 1 Day 2 and thereafter: Oral: 0.6 mg once or twice daily until flare resolves 60 capsule 1 025 2024 Discontinued(R eorder (will not trigger notification to Pharmacy)) Colchicine 0.6 MG capsuleIndication s:Acute right ankle pain,Right foot pain Day 1: 1.2 mg at the first sign of flare, followed by 0.6 mg after 1 hour Day 2 and thereafter: 0.6 mg once or twice daily until flare resolves 60 capsule 1 025 2024 Discontinued(R eorder (will not trigger notification to Pharmacy)) Active Problems Problem Noted Date Diagnosed Date Acute right ankle pain 02/28/2025 Assessment & Plan (02/28/2025 4:08 PM EDT): I will order an MRI of of her ankle and contact her with results I will prescribe for her colchicine initial dose 2 capsules then after 1 hour another 1 for the first day and then 1 capsule twice a day for maintenance Right foot pain 2025 Assessment & Plan (02/28/2025 4:09 PM EDT): I will order an MRI of of her footand contact her with results I will prescribe for her colchicine initial dose 2 capsules then after 1 hour another 1 for the first day and then 1 capsule twice a day for maintenance Assessment & Plan (2025 4:34 PM EDT): [...] left foot, she is being manage by pain/internal corrosion specialist (medications prescribed by specialist only) Chronic bilateral low back pain with left-sided sciatica 08/20/2023 Assessment & Plan (01/07/2024 2:12 PM EDT): I will increase gabapentin to 600mg TID and refer her back to pain management Pelvic pain 08/20/2023 Assessment & Plan (08/21/2023 12:20 PM EDT): INSTALLATION ENGINEER referral as per patient's request Preop [...] Diagnosed Date Resolved Date Continuous opioid dependence ([facility]) 04/08/2017 02/02/2025 Encounters Date Type Department Care Team Description 03/01/2025 Orders Only [facility] [address] [place] [address] Elizabeth Dunn MD Acute right ankle pain; Right foot pain 03/01/2025 Refill [facility] [address] [place] [address] Elizabeth Dunn MD Acute right ankle pain; Right foot pain 03/01/2025 Orders Only [facility] [address] [place] [address] Elizabeth Dunn MD Right foot pain (Primary Dx); Acute right ankle pain 03/01/2025 Patient Outreach [facility] [address] [place], [place] [phone] Elizabeth Dunn MD Care Management (C3CM- Initial assessment/enrollment /LVM) 03/01/2025 Telephone [facility] [address] [place] [address] Elizabeth Dunn MD 02/28/2025 2:00 PM EDT Office Visit [facility] [address] [place] [address] Elizabeth Dunn MD Acute right ankle pain; Right foot pain 02/28/2025 Travel 02/28/[address] [address] Elizabeth Dunn MD Nurse Triage 02/23/[address] [address] Elizabeth Dunn MD ER Follow-up 02/22/2025 Orders Only GENERIC EXTERNAL DATA DEPARTMENT Provider, Generic External Data 02/21/2025 Results Follow-Up [address] [address] Elizabeth Dunn MD Uric acid 02/15/2025 Orders Only [facility] [address] [place] [address] Elizabeth Dunn MD 2025 3:15 PM EDT Office Visit [address] [address] Elizabeth Dunn MD Polyarthralgia (Primary Dx); Right foot pain; Left foot pain; Type 2 diabetes mellitus without complication, without long-term current use of insulin (HCC); Fibromyalgia 2025 Travel 02/11/2025 Orders Only [facility] External Provider, [facility] 02/08/[address] [address] Elizabeth Dunn MD ER Follow-up 02/08/2025 Patient Outreach [address] [address] Elizabeth Dunn MD Care Coordination ([facility] Manuela Melendez, initial assessment scheduled ) 02/08/2025 Patient Outreach [address] [address] Elizabeth Dunn MD Care Coordination ([facility] Manuela Melendez, Chart review ) 02/08/2025 Patient Outreach [facility] [address] [place] [address] Elizabeth Dunn MD Care Coordination ([facility]- chart review) 02/08/2025 Patient Outreach [address] [address] Elizabeth Dunn MD 02/07/2025 Orders Only GENERIC EXTERNAL DATA DEPARTMENT Provider, Generic External Data 02/02/2025 3:00 PM EDT Telemedicine [address] [address] Elizabeth Dunn MD Diabetic mononeuropathy simplex (CMS/HCC) (Primary Dx); 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order, without psychotic features (CMS/HCC); Mild intermittent asthma, unspecified whether complicated; Continuous opioid dependence (CMS/HCC); Fibromyalgia; Dietary counseling; Exercise counseling; Type 2 diabetes mellitus without complication, without long-term current use of insulin (CMS/HCC) 02/02/2025 Travel 02/01/[address] [address] Elizabeth Dunn MD 01/26/2025 3:30 PM EDT Office Visit [address] [address] Elizabeth Dunn MD Type 2 diabetes mellitus without complication, without long-term current use of insulin (CMS/HCC) (Primary Dx); Fibromyalgia; Acute pain of right shoulder; Class 1 obesity due to excess calories with serious comorbidity and body mass index (BMI) of 34.0 to 34.9 in adult 01/26/2025 Refill [facility] [address] [place] [address] Elizabeth Dunn MD Type 2 diabetes mellitus without complication, without long-term current use of insulin ([facility]) 01/26/2025 Travel 01/25/2025 Telephone [facility] [address] [place] [address] Elizabeth Dunn MD chart prep 01/21/2025 Travel 01/20/2025 Telephone [facility] [address] [place] [address] Elizabeth Dunn MD appt 01/15/2025 Refill [facility] [address] [place] [address] Vanna Chen MD Microcytic anemia 01/14/2025 Telephone [facility] [address] [place] [address] Elizabeth Dunn MD Prior Authorization ( PA: Trish) 01/12/2025 Orders Only [facility] [address] [place] [address] Elizabeth Dunn MD 01/12/2025 Refill [facility] [address] [place] [address] Elizabeth Dunn MD Class 2 severe obesity with serious comorbidity and body mass index (BMI) of 35.0 to 35.9 in adult, unspecified obesity type ([facility]) 01/11/2025 Refill [facility] [address] [place] [address] Elizabeth Dunn MD Chronic midline low back pain with left-sided sciatica 01/04/2025 10:20 AM EDT Office Visit [facility] [address] [place] [address] Dawson, Mulu, OD Type 2 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 ([facility]) (Primary Dx) 01/04/2025 Travel 12/19/2024 Refill [facility] [address] [facility] [place] [address] Elizabeth Dunn MD Chronic bilateral low back pain with left-sided sciatica 12/15/2024 Orders Only [facility] [address] [facility] [place] [address] Elizabeth Dunn MD Class 2 severe obesity with serious comorbidity and body mass index (BMI) of 35.0 to 35.9 in adult, unspecified obesity type (CMS/HCC) (Primary Dx) 12/15/2024 Telephone [facility] [address] [place] [address] Elizabeth Dunn MD Med Refill 12/15/2024 Refill [facility] [address] [place] [address] Elizabeth Dunn MD 12/08/2024 Refill [facility] [address] [place] [address] Elizabeth Dunn MD Chronic bilateral low back pain with left-sided sciatica 12/07/2024 Telephone [facility] [address] [place] [address] Elizabeth Dunn MD No Show 12/07/2024 Telephone [facility] [address] [place] [address] Elizabeth Dunn MD Chart Prep 12/06/2024 Refill [facility] [address] [place] [address] Elizabeth Dunn MD Chronic midline low back [...] kg (201 lb 9.6 oz) 02/28/2025 1:40 P M EDT Height 165.1 cm (5' 5 ) 02/28/2025 1:40 PM EDT Body Mass Index 33.55 02/28/2025 1:40 PM EDT Plan of Treatment Upcoming Encounters Date Type Department Care Team (Late st Contact Info) Description 03/22/2025 2:30 PM EST Telemedicine [facility] [address] [place] [address] Elizabeth Dunn MD [address] [place] [address] 06/07/2025 2:30 PM EST Office Visit [facility] [address] [place] [address] Dawson, Mulu, OD [address] [place] [address] Health Maintenance Due Date Last Done Comments [...] 02/02/2026 02/02/2025 Diabetes: Foot Exam 2026 2025, 5 Mammogram 02/15/2026 02/15/2025, 1005/2023, 02/10/2024, Additional history exists Tobacco Screening 02/28/2026 02/28/2025 DTaP/Tdap/Td Vaccines (3 - Td or Tdap) [...] PM EDT Narrative 02/22/2025 2:56 PM EDT [address] [address] XRay Report Signed Patient: Lelo Plata R MR# : [id number] : 1960 Acct:[id number] Age/Sex: 65 / F ADM Date: 02/22/25 Loc: HO.ED Attending Dr: Ordering Physician: Cortes Hammer MD Date of Service: 02/22/25 Procedure(s): XR chest 1V Accession Number(s): [id number] cc: Elizabeth Dunn MD; Cortes Hammer MD [...] 02/22/25 1453 DD/ 1439 TD/TT: 02/22/25 1445 Casing Grader: Procedure Note Donotuseinterpreter, Image - 02/22/2025 [facility] [address] [place] [address] XRay Report Signed Patient: Lelo Plata RMR# : [id number] : 1960cct:[id number] Age/Sex: 65 / FADM Date: 02/22/25 Loc: HO.ED Attending Dr: Ordering Physician: Cortes Hammer MD Date of Service: 02/22/25 Procedure(s): XR chest 1V Accession Number(s): [id number] cc: Elizabeth Dunn MD; Cortes Hammer MD [...] Johnson MD Signed By: <Electronically signed by oKry Johnson MD in OV> 02/22/25 1453 DD/ 1439 TD/TT: 02/22/25 1445 Casing Grader: [facility] External Provider IMG XR PROCEDURES Final Result * High Sensitivity Troponin I (02/22/2025 2:22 PM EDT) TROPONIN I HIGH SENSITIVITY <2.7 <3.5 - 17.0 ng/L [facility] Comment:The [place] high sens itivity Troponin-I results should beused in conjunction with other diagnostic information suchas ECG, clinical observations and information, and patientsymptoms to aid in the diagnosis of PA. 02/22/2025 2:22 PM EDT 02/22/2025 2:25 PM EDT Generic External Data Provider LAB BLOOD ORDERAB LES Final Result [facility] [address] [place] [phone] * (ABNORMAL) Basic Metabolic Panel (02/22/2025 2:22 PM EDT) Sodium 139 135 - 145 mmol/L [facility] Potassium 4.0 3.3 - 5.1 mmol/L [facility] Comment:Slight Hemolysis.Int erpret result with caution. Chloride 106 96 - 108 mmol/L [facility] Carbon Dioxide 22 22 - 29 mmol/L [facility] Anion Gap 15 12 - 20 [facility] Urea Nitrogen (BUN) 20(H) 9 - 16 mg/dL [facility] Creatinine, Serum 0.85 0.5 - 1.4 mg/dL [facility] Creatinine Clr Calc Pharmacy 76.0 [facility] Comment:Provided height and weight: 165.1 cm,92.2 kg.eGFR (calculated from the MDRD study equation) and eCrCl(calculated from the Cockcroft-Gault equation) are based ondifferent parameters and may not yield comparable results.If eCrCl result is absurd, please check patient'sheight/weight. Estimated Glomerular Filt Rate >60 [facility] Comment:Chronic Kidney Disea se: Estimated GFR < 60 mL/min/1.88z2Zcztwi Kidney Disease: Estimated GFR < 15 mL/min/1.73m2 Glucose 60 60 - 115 mg/dL [facility] Calcium 8.6 8.4 - 10.2 mg/dL [facility] 02/22/2025 2:22 PM EDT 02/22/2025 2:25 PM EDT us Generic External Data Provider LAB BLOOD ORDERAB LES Final Result [facility] [address] [place], [place] [phone] * (ABNORMAL) CBC auto differential (02/22/2025 1:22 PM EDT) Only the most recent of2 resultswithin the time period is included. White Blood Count 11.8(H) 4.8 - 10.8 X10*3/uL [facility] Red Blood Count 4.72 4.20 - 5.50 X10*6/uL [facility] Hemoglobin 11.5(L) 12.0 - 16.0 g/dl [facility] Hematocrit 35.2(L) 37.0 - 47.0 % [facility] Mean Corpuscular Volume 74.6(L) 80.0 - 98.0 fL [facility] Mean Corpuscular Hemoglobin 24.4(L) 27.0 - 33.0 pg [facility] Mean Corpuscular HGB Conc 32.7 31.0 - 35.0 g/dl [facility] Red Cell Distribution Width 19.5(H) 11.0 - 16.0 % [facility] Platelet Count 222 160 - 400 X10*3/uL [facility] Mean Platelet Volume 11.7 9.4 - 12.3 fL [facility] Neutrophils Percent Auto 67.7 45 - 73 % [facility] Imm Gran Pct Auto 1.1(H) 0.0 - 0.4 % [facility] Lymphocytes Percent Auto 21.6 20 - 40 % [facility] Monocytes Percent Auto 8.5 2 - 11 % [facility] Eosinophils Percent Auto 0.8 0 - 4 % [facility] Basophils Percent Auto 0.3 0 - 2 % [facility] NRBC Pct Auto 0.0 0.0 - 0.2 /100WBC [facility] Neutrophils Absolute Auto 8.0 2.0 - 8.3 x10*3/uL [facility] Imm Gran Abs Auto 0.13(H) 0.00 - 0.03 X10*3/uL [facility] Lymphocytes Absolute Auto 2.6 1.2 - 4.9 X10*3/uL [facility] Monocytes Absolute Auto 1.0 0.1 - 1.2 X10*3/uL [facility] Eosinophils Absolute Auto 0.1 0.0 - 0.4 X10*3/uL [facility] Basophils Absolute Auto 0.0 0.0 - 0.2 X10*3/uL [facility] NRBC Abs Auto 0.000 0.0 - 0.012 X10*3/uL [facility] 02/22/2025 1:22 PM EDT 02/22/2025 1:25 PM EDT us Generic External Data Provider LAB BLOOD ORDERAB LES Final Result Performing Organization Address [facility] Co de Phone Number [facility] [address] [place] [phone] * Prothrombin Time-INR (02/22/2025 1:22 PM EDT) Prothrombin Time 11.0 10.9 - 12.4 SEC [facility] INTERNATIONAL NORM RATIO 1.0 0.9 - 1.1 [facility] Comment:INTERNATIONAL NORMAL IZED RATIO (INR) [...] ORDERAB LES Final Result Performing Organization Address City/[facility] Co de Phone Number [facility] [address] [place] [phone] * (ABNORMAL) Uric acid (02/18/2025 1:14 PM EDT) Uric Acid 6.3(H) 2.4 - 5.7 mg/dL [facility] Blood Venous blood specimen / Unknown 02/18/2025 1:14 PM EDT 02/18/2025 4:31 PM EDT us Elizabeht Goncalves MD LAB BLOOD ORDERABLES Final Result [facility] [address] [place] [address] [phone] * BI Mammogram Screening Tomosynthesis Bilateral (02/15/2025 9:05 AM EDT) Anatomical Region Laterality Modality Breast Bilateral Mammography 02/15/2025 9:05 AM EDT Narrative 02/22/2025 9:47 AM EDT [facility] [address] [place], [place] [address] Mammography Report Signed Patient: Lelo Plata MR# : [id number] : 1960 Acct:[id number] Age/Sex: 65 / F ADM Date: 02/15/25 Loc: HO.MAMMO Attending Dr: Elizabeth Goncalves MD Ordering Physician: Elizabeth Dunn MD Results: 1Negative Date of Service: 02/15/25 Follow Up: 1 Year From Orig ina Mammogram Procedure(s): MM tomosynthesis screening BI Accession Number(s): [id number] cc: Elizabeth Dunn MD Reason For Exam: [...] in OV> 02/22/25943 DD/ 4 TD/TT: 02/15/25927 Casing Grader: Procedure Note Donotrobbininterpreter, Image - 02/22/[facility] [address] [place] [address] Mammography Report Signed Patient: Lelo Plata RMR# : [id number] : 1960cct:[id number] Age/Sex: 65 / FADM Date: 02/15/25 Loc: HO.MAMMO Attending Dr: Elizabeth Goncalves MD Ordering Physician: Elizabeth Dunnesults: 1Negative Date of Service: 02/15/25Follow Up: 1 Year From Orig inal Mammogram Procedure(s): MM tomosynthesis screening BI Accession Number(s): [id number] cc: Elizabeth Dunn MD Reason For Exam: [...] in OV> 02/22/2544 DD/ 4 TD/TT: 02/15/25927 Casing Grader: Elizabeth Goncalves MD IMG BI PROCEDURES Fin al Result * XR Foot 3+ Views Right (02/12/2025 1:30 AM EDT) Anatomical Region Laterality Modality Lower Extremities, Foot Right Radiogra phic Imaging 02/12/2025 1:30 AM EDT Narrative 02/12/2025 1:32 AM EDT [address] [address] XRay Report Signed Patient: Lelo Plata R MR# : [id number] : 1960 Acct:[id number] Age/Sex: 64 / F ADM Date: 02/11/25 Loc: HO.ED Attending Dr: Ordering Physician: Perla Turner Date of Service: 02/12/25 Procedure(s): XR foot RT min 3V Accession Number(s): [id number] cc: Elizabeth Dunn MD; Perla Turner Reason [...] in OV> 02/12/25131 DD/ 9 TD/TT: 02/12/25129 Casing Grader: Procedure Note Donotuseinterpreter, Image - 02/12/[address] [address] XRay Report Signed Patient: Lelo Plata RMR# : [id number] : 1960cct:[id number] Age/Sex: 64 / FADM Date: 02/11/25 Loc: HO.ED Attending Dr: Ordering Physician: Perla Turner Date of Service: 02/12/25 Procedure(s): XR foot RT min 3V Accession Number(s): [id number] cc: Elizabeth Dunn MD; Perla Turner Reason [...] in OV> 02/12/25131 DD/ 9 TD/TT: 02/12/25129 Casing Grader: [facility] External Provider IMG XR PROCEDURES Edited Result - Final * CT Abdomen Pelvis w/ Contrast (02/11/2025 11:22 PM EDT) Anatomical Region Laterality Modality Body, Pelvis, Abdomen Computed T omography 02/11/2025 11:2 2 PM EDT Narrative 02/11/2025 11:24 PM EDT [place] [address] [address] Scan Report Signed Patient: Lelo Plata MR# : [id number] : 1960 Acct:[id number] Age/Sex: 64 / F ADM Date: 02/11/25 Loc: HO.ED Attending Dr: Ordering Physician: Perla Turner Date of Service: 02/11/25 Procedure(s): CT abdomen pelvis w IV con Accession Number(s): [id number] cc: Elizabeth Dunn MD; Perla Turner Report Number: [id number]: Total DLP = 0.00 mGy-cm Reason for [...] in OV> 02/11/252322 DD/ 21 TD/TT: 02/11/252321 Casing Grader: Procedure Note Donotuseinterpreter, Image - 02/11/[address] [place] [address] [address] Scan Report Signed Patient: Lelo Plata RMR# : [id number] : [id number]:[id number] Age/Sex: 64 / FADM Date: 02/11/25 Loc: HO.ED Attending Dr: Ordering Physician: Perla Turner Date of Service: 02/11/25 Procedure(s): CT abdomen pelvis w IV con Accession Number(s): [id number] cc: Elizabeth Dunn MD; Perla Turner Report Number: [id number]: Total DLP = 0.00 mGy-cm Reason for [...] in OV> 02/11/252322 DD/ 21 TD/TT: 02/11/252321 Casing Grader: [facility] External Provider IMG CT PROCEDURES Edited Result - Final * Urinalysis, Complete, with Reflex to Culture (02/11/2025 10:50 PM EDT) Color Urine Yellow [facility] Appearance Urine Clear [facility] PH 5.0 5.0 - 9.0 [facility] Glucose Urine UA Negative Negative mg/dL [facility] Urine Blood Negative Negative [facility] Specific [place] - Urine 1.020 1.005 - 1.025 [facility] Urine Protein Negative Neg-Trace mg/dL [facility] Urine Ketones Negative Negative mg/dL [facility] Nitrite Urine Negative Negative [facility] Leukocyte Esterase Urine Negative Negative [facility] RBC Urine 0-2 0 - 2 /HPF [facility] Urine WBC 0-5 0 - 5 /HPF [facility] Urine Squamous Epithelial Cell 0-2 0 - 2 /HPF [facility] Urine Bacteria None Seen None Seen [facility] Hyaline Casts, Urine 0-2 0 - 2 /LPF [facility] 02/11/2025 10:5 0 PM EDT 02/11/2025 10:54 PM EDT Narrative [facility] - 02/11/2025 11:05 PM EDT 2248Urine, Clean Catch us Generic External Data Provider LAB URINE ORDERAB LES Final Result [facility] [address] [place] [phone] * XR KUB and Upright 2 Views (02/11/2025 7:34 PM EDT) Anatomical Region Laterality Modality Radiographic Delilah ging 02/11/2025 7:34 PM EDT Narrative 02/11/2025 7:35 PM EDT [address] [address] XRay Report Signed Patient: Lelo Plata MR# : [id number] : 1960 Acct:[id number] Age/Sex: 64 / F ADM Date: 02/11/25 Loc: HO.ED Attending Dr: Ordering Physician: Perla Turner Date of Service: 02/11/25 Procedure(s): XR KUB Accession Number(s): [id number] cc: Elizabeth Dunn MD; Perla Turner Reason for Exam: constipation CLINICAL HISTORY: constipation Abdominal radiographs Comparison: CT/REG/MS/SR - CT ABDOMEN PELVIS W IV CON [...] signed by Leanne Collier MD in OV> 02/11/25 1934 DD/ 33 TD/TT: 02/11/251933 Casing Grader: Procedure Note Donotuseinterpreter, Image - 02/11/[address] [address] XRay Report Signed Patient: Lelo Plata RMR# : [id number] : 2Acct:[id number] Age/Sex: 64 / FADM Date: 02/11/25 Loc: HO.ED Attending Dr: Ordering Physician: Perla Turner Date of Service: 02/11/25 Procedure(s): XR KUB Accession Number(s): [id number] cc: Elizabeth Dunn MD; Perla Turnre Reason for Exam: constipation CLINICAL HISTORY: constipation Abdominal radiographs Comparison: CT/REG/MS/SR - CT ABDOMEN PELVIS W IV CON [...] in OV> 02/11/251933 DD/ 33 TD/TT: 02/11/251933 Casing Grader: [facility] External Provider IMG XR PROCEDURES Final Result * VASC US Lower Extremity Venous Duplex Bilateral (02/07/2025 9:39 PM EDT) 02/07/2025 9:39 PM EDT Narrative [facility] - 02/07/2025 9:41 PM EDT [address] [address] Ultrasound Report Signed Patient: Lelo Plata R MR# : [id number] : 1960 Acct:[id number] Age/Sex: 64 / F ADM Date: 02/07/25 Loc: HO.ED Attending Dr: Ordering Physician: Kaitlynn Wang Date of Service: 02/07/25 Procedure(s): US venous duplex LE BI Accession Number(s): [id number] cc: Elizabeth Dunn MD; Kaitlynn Wang Reason [...] in OV> 02/07/252139 DD/ 38 TD/TT: 02/07/252138 Casing Grader: Procedure Note Donotuseinterpreter, Image - 02/07/[address] [address] Ultrasound Report Signed Patient: Lelo Plata RMR# : [id number] : 1960cct:[id number] Age/Sex: 64 / FADM Date: 02/07/25 Loc: HO.ED Attending Dr: Ordering Physician: Kaitlynn Wang Date of Service: 02/07/25 Procedure(s): US venous duplex LE BI Accession Number(s): [id number] cc: Elizabeth Dunn MD; Kaitlynn Wang Reason [...] This document has been electronically signed by: Toibn Ivy MD on 02/07/2025 21:39:34 Dictated By: Tobin Ivy MD Signed By: <Electronically signed by Tobin Ivy MD in OV> 02/07/252139 DD/ 38 TD/TT: 02/07/252138 Casing Grader: [facility] External Provider CV VASC ULAR PROCEDURES Final Result Performing Organization Address [facility] Co de Phone Number [facility] [address] [place] [phone] * NT-proBNP (02/07/2025 8:52 PM EDT) NT-proBNP 36.0 <300 pg/mL [facility] Comment:Reference Range:Age Group (years) NT-proBNP (pg/ml) InterpretationAll <300 Negative: HF unlikelyFor patients presenting to the ED with clinical suspicion ofnew onset or worsening HF, see below:18 to <50 >299.9 to <450.0 Grayzone: Cewxzyby71 to 75 >299.9 to <900.0 other causes of>75 >299.9 to <1800.0 NT-proBNP [id number] to <50 >449.9 Positive: HF -51 >899.9>75 >1799.9Note: Elevated NT-proBNP levels should be interpreted inthe context of other clinical information. 02/07/2025 8:52 PM EDT 02/07/2025 8:57 PM EDT Generic External Data Provider LAB BLOOD ORDERAB LES Final Result Performing Organization Address [facility]/ZIP Co de Phone Number [facility] [address] [place] [phone] * (ABNORMAL) Sed Rate by Modified Caleren (02/07/2025 8:52 PM EDT) Pathologist [facility] [place] Erythrocyte Sedimentation Rate 25(H) 0 - 20 MM/HR [facility] Comment:Patients with polycy themia and many hemoglobin abnormalitiesmay have depressed sed rates whereas patients with anemiamay have elevated sed rates. 02/07/2025 8:52 PM EDT 02/07/2025 8:57 PM EDT Generic External Data Provider LAB BLOOD ORDERAB LES Final Result Performing Organization Address [facility] de Phone Number [facility] [address] [place] [phone] * (ABNORMAL) C-reactive Protein (02/07/2025 8:52 PM EDT) [facility] C Reactive Protein 1.09(H) < or = 0.50 mg/dL [facility] 02/07/2025 8:52 PM EDT 02/07/2025 8:57 PM EDT Generic External Data Provider LAB BLOOD ORDERAB LES Final Result Performing Organization Address [facility] de Phone Number [facility] [address] [place] [phone] * Magnesium (02/07/2025 8:52 PM EDT) Pathologist [facility] [place] Magnesium 2.1 1.6 - 2.6 mg/dL [facility] 02/07/2025 8:52 PM EDT 02/07/2025 8:57 PM EDT Generic External Data Provider LAB BLOOD ORDERAB LES Final Result Performing Organization Address [facility] Phone Number [facility] [address] [place] [address] [phone] * Comprehensive Metabolic Panel (02/07/2025 8:52 PM EDT) Pathologist [facility] Sodium 143 135 - 145 mmol/L [facility] Potassium 4.5 3.3 - 5.1 mmol/L [facility] Chloride 103 96 - 108 mmol/L [facility] Carbon Dioxide 28 22 - 29 mmol/L [facility] Anion Gap 17 12 - 20 [facility] Urea Nitrogen (BUN) 16 9 - 16 mg/dL [facility] Creatinine, Serum 1.06 0.5 - 1.4 mg/dL [facility] Creatinine Clr Calc Pharmacy 62.1 [facility] Comment:Provided height and weight: 165.1 cm,93.44 kg.eGFR (calculated from the MDRD study equation) and eCrCl(calculated from the Cockcroft-Gault equation) are based ondifferent parameters and may not yield comparable results.If eCrCl result is absurd, please check patient'sheight/weight. Estimated Glomerular Filt Rate 53 [facility] Comment:Chronic Kidney Disea se: Estimated GFR < 60 mL/min/1.67n7Muvtuf Kidney Disease: Estimated GFR < 15 mL/min/1.73m2 Glucose 77 60 - 115 mg/dL [facility] Calcium 9.2 8.4 - 10.2 mg/dL [facility] Bilirubin, Total 0.2 0.0 - 1.0 mg/dL [facility] Aspartate Amino Transferase 19 5 - 31 U/L [facility] Alanine Aminotransferase 8 0 - 31 U/L [facility] Total Protein 7.1 6.5 - 8.0 g/dL [facility] Albumin Level 4.2 3.5 - 5.0 g/dL [facility] Alkaline Phosphatase 72 39 - 117 U/L [facility] 02/07/2025 8:52 PM EDT 02/07/2025 8:57 PM EDT us Generic External Data Provider LAB BLOOD ORDERAB LES Final Result [facility] [address] [place] [phone] [phone] * POCT Hgb A1c (01/26/2025 3:42 [...] 8:25 AM EDT) Creatinine, Urine 223.33 mg/dL [facility] Microalbumin Urine 9.0 mg/L [facility] Microalbum Creatinine Ratio Ur 4.0 <30 ug/mg cr [facility] Comment:Albumin/Creatinine R atio Reference Ranges: Normal: < 30 ug/mg creatinine Microalbuminuria: 30 - 300 ug/mg creatinineClinical Albuminuria: > 300 ug/mg creatinine Urine (Urine, Random) 01/05/2024 8:25 AM EDT 01/05/2024 11:48 AM EDT us Elizabeth Goncalves MD LAB URINE ORDERABLES Final Result [facility] [address] [place] [phone] * (ABNORMAL) Lipid Panel with Reflex to Direct LDL (01/05/2024 8:22 AM EDT) Triglycerides 180(H) <150 mg/dL [facility] Comment:Desirable Triglyceri de: less than 150 mg/dLBorderline High Triglyceride 150-199 mg/dLHigh Triglyceride: 200-499 mg/dLVery High Triglyceride: greater than or equal to 5OO mg/dL Cholesterol 240(H) <200 mg/dL [facility] Comment:Desirable Cholestero l: less than 200 mg/dLBorderline High Cholesterol: 200-239 mg/dLHigh Cholesterol: greater than 239 mg/dL LDL Cholesterol Calculated 138(H) <100 mg/dL [facility] Comment:Desirable LDL: less than 100 mg/dLNear Optimal/Above Optimal LDL: 110- 129 mg/dLBorderline High LDL: 130-159 mg/dLHigh LDL: 160-189 mg/dLVery High LDL: greater than or equal to 190 mg/dL HDL Cholesterol 66 >40 mg/dL [facility] Comment:Desirable HDL: great er than 40 mg/dL Note: This HDL assay may give artificially low results in patients with liver disease. Blood 01/05/2024 8:22 AM EDT 01/05/2024 11:52 AM EDT Elizabeth Goncalves MD LAB BLOOD ORDERABLES Final Result [facility] [address] [place] [address] [phone] * Colonoscopy (12/10/2022) Historical Provider HEALTH MAINTENANCE Final Result * HEPATITIS C AB W/REFL TO HCV RNA, QN, PCR (10/23/2020 10:08 AM EDT) HEPATITIS C ANTIBODY NON-REACT [facility] NON-REACT [facility] INDEX 0.01 <1.00 [facility] Comment: HCV antibody was non-reactive. There is no laboratory evidence of HCV infection. In most cases, no further action is required. However, if recent HCV exposure is suspected, a test for HCV RNA (test code 87537) is suggested. For additional information please refer to http://Hark.LocPlanet/faq/ZXP25y9 (This link is being provided for informational/ educational purposes only.) 10/23/2020 10:0 8 AM EDT Elizabeth Goncalves MD HISTORICAL/NON ORDERA BLE LABS Final Result Performing Organization Address [facility] Co de Phone Number [facility] [address] * HIV 1/2 ANTIGEN/ANTIBODY,FOURTH GENERATION W/RFL [...] purpose. For additional information please refer to http://Hark.LocPlanet/faq/YZA810 (This link is being provided for informational/ educational purposes only.) The performance of this assay has not been clinically validated in patients less than 2 years old. 10/23/2020 10:0 8 AM EDT us Elizabeth Goncalves MD LAB BLOOD ORDERABLES Final Result Performing Organization Address [facility] de Phone Number [facility] [address] from Last 3 Months or Most Recently Relevant to Health Maintenance Insurance [facility] C3 Care Teams Animation Director Relationship Specialty Start Date End Date Elizabeth Dunn MD [address] [place] [address] PCP - General Family Medicine 03/17/18 Kai Bowden, MATT [address] [place] [address] Registered Nurse Family Medicine 02/08/25 Manuela Melendez 02/08/25 Thao Barnhart Billing AssistantGarage Manager 02/07/23
--- OUTSIDE RECORDS SUMMARY | 2025-03-02 22:51 | XMS_ITS ---
Author Organization [employer] Address [address] [facility] 7t [place] [address] Care Team Providers Care Trench Digger Helper Name Role Phone Elizabeth Dunn MD Primary Care Provide r Kai Bowden RN Unavailable [phone] Manuela Melendez Unavailable CM Complex Status:Outreach In Progress (Enrolling) Start date:02/08/2025 Enrollment reason:ADT Feed Overview ED- Pt went to [facility] ED on 02/07/25. Case Team Name Relationship Phone Kai Bowden RN(Responsible Staff) Registered Ascencion nguyen [phone] Continued Care and Services Coordination
--- OUTSIDE RECORDS SUMMARY | 2025-03-02 22:51 | XMS_ITS | Encounter Summary ---
Author Organization [employer] Address [address] [place] [address] 7t h Floor [place] [phone] Care Team Providers Care Heavy Equipment Engine Mechanic Name Role Phone Elizabeth Dunn MD Primary Care Provide r Kai Bowden RN Unavailable [phone] Manuela Melendez Unavailable Reason for Visit * Reason Onset Date Comments Prior Authorization 01/14/2025 PA: Augusto und Encounter Details Date Type Department Care Team ([facility] st Contact Info) Description 01/14/2025 Telephone [facility] MEDICINE [address] [place] [address] Elizabeth Dunn MD [address] [place], [place] [phone] Prior Authorization ( PA: Trish) Social History [...] back to discuss update Contact pt at [phone] ([place] islander) * Telephone Encounter - Lo Clemens - 01/14/2025 11:55 AM EDT Tc from pt stating a PA is needed for Tirzepatide-Weight Management (Zepbound) 10 MG/0.5ML solutionauto-injector Contact pt at [phone] ([place] islander) documented in this encounter Plan of Treatment Upcoming Encounters Date Type Department Care Team (Late st Contact Info) Description 03/22/2025 2:30 PM EST Telemedicine [facility] MEDICINE [address] [place] [address] Elizabeth Dnun MD [address] [place] [address] 06/07/2025 2:30 PM EST Office Visit [facility] OPTOMETRY [address] [place], [place] [phone] Mulu Osman, OD [address] [place] [address] documented as of this encounter Visit Diagnoses Not on filedocumented in this encounter Additional Health Concerns Assessment Noted Time PHQ-9 Depression Total Score: 0 08/20/19 24 2:32 PM EDT documented as of this encounter Care Teams Heavy Equipment Engine Mechanic Relationship Specialty Start Date End Date Elizabeth Dunn MD [address] [place] [address] PCP - General Family Medicine 03/17/18 Kai Bowden, RN [address] [place] [address] Registered Nurse Family Medicine 02/08/25 Manuela Melendez 02/08/25 Thao Barnhart Internal Sales EngineerNormalizer 02/07/23 documented as of this encounter
--- OUTSIDE RECORDS SUMMARY | 2025-03-02 22:51 | XMS_ITS | Encounter Summary ---
Author Organization [employer] Address [address] [facility] 7t h Floor [place] [phone] Care Team Providers Care Buggy Man Name Role Phone Elizabeth Dunn MD Primary Care Provide r Kai Bowden RN Unavailable [phone] Manuela Melendez Unavailable Encounter Details Date Type Department Care Team (Late st Contact Info) Description 03/26/2024 Orders Only [facility] [address] [place] [address] Elizabeth Dunn MD [address] [place] [address] Social History Tobacco Use Types Packs/Day Years [...] PM EST Telemedicine [facility] [address] [place] [address] Elizabeth Dunn MD [address] [place] [address] 06/07/2025 2:30 PM EST Office Visit [facility] OPTOMETRY [address] [place] [address] Dawson, Mulu, OD [address] [place] [address] documented as of this encounter Visit Diagnoses Not on filedocumented in this encounter Additional Health Concerns Assessment Noted Time PHQ-9 Depression Total Score: 0 08/20/19 24 2:32 PM EDT documented as of this encounter Care Teams Buggy Man Relationship Specialty Start Date End Date Elizabeth Dunn MD [address] [place] [address] PCP - General Family Medicine 03/17/18 Kai Bowden, MATT [address] [place] [address] Registered Nurse Family Medicine 02/08/25 Manuela Melendez 02/08/25 Thao Barnhart Deli Department ManagerRocket Motor Mechanic 02/07/23 documented as of this encounter
--- OUTSIDE RECORDS SUMMARY | 2025-03-02 22:51 | XMS_ITS ---
Author Organization [employer] Address [address] [facility] 7t [place] [address] Care Team Providers Care Friction Welding Machine Operator Name Role Phone Elizabeth Dunn MD Primary Care Provide r Kai Bowden RN Unavailable [phone] Manuela Melendez Unavailable CHW Complex Status:Outreach In Progress (Enrolling) Start date:02/08/2025 Enrollment reason:ADT Feed Overview ED- Pt went to [facility] ED on 02/07/25. Case Team Name Relationship Phone Manuela Melendez(Responsible Staff) [phone] Continued Care and Services Coordination
--- OUTSIDE RECORDS SUMMARY | 2025-03-02 22:52 | XMS_ITS | Encounter Summary ---
Author Organization [employer] Address [address] [facility] 7t [place] [address] Care Team Providers Care Survey Superintendent Name Role Phone Elizabeth Dunn MD Primary Care Provide r Kai Bowden RN Unavailable [phone] Manuela Melendez Unavailable Encounter Details Date Type Department Care Team ([facility] st Contact Info) Description 03/01/2025 Telephone [facility] [address] [place] [address] Elizabeth Dunn MD [address] [place] [address] Social History Tobacco Use Types Packs/Day Years [...] encounter Miscellaneous Notes * Telephone Encounter - Hudson Gonzalez - 03/01/2025 8:34 AM EDT Incoming call from Varsha at [facility] requesting MRI Ankle & MRI Foot. Both orders to be update. Pleaseupdate order to MRI Ankle Right WO Contrast & MRI Foot Right WO Contrast. Please advise! documented in this encounter Plan of Treatment Upcoming Encounters Date Type Department Care Team (Late st Contact Info) Description 03/22/2025 2:30 PM EST Telemedicine [facility] MEDICINE [address] [place] [address] Elizabeth Dunn MD [address] [place] [address] 06/07/2025 2:30 PM EST Office Visit [facility] OPTOMETRY [address] [place] [address] Mulu Osman, OD [address] [place] [address] documented as of this encounter Visit Diagnoses Not on filedocumented in this encounter Additional Health Concerns Assessment Noted Time PHQ-9 Depression Total Score: 0 02/03/20 2:44 PM EDT documented as of this encounter Care Teams Survey Superintendent Relationship Specialty Start Date End Date Elizabeth Dunn MD [address] [place] [address] PCP - General Family Medicine 03/17/18 Kai Bowden, MATT [address] [place] [address] Registered Nurse Family Medicine 02/08/25 Manuela Melendez 02/08/25 Thao Barnhart Career And Transition TeacherDirector Of Enterprise Strategy 02/07/23 documented as of this encounter
--- OUTSIDE RECORDS SUMMARY | 2025-03-02 22:52 | XMS_ITS | Encounter Summary ---
Author Organization [employer] Address [address] [address] 7t [place] [address] Care Team Providers Care Taxation Inspector Name Role Phone Elizabeth Dunn MD Primary Care Provide r Kai Bowden RN Unavailable [phone] Manuela Melendez Unavailable Reason for Visit * Reason Onset Date Comments Med Refill 12/17/2022 Encounter Details Date Type Department Care Team (Late st Contact Info) Description 12/17/2022 Telephone [facility] MEDICINE [address] [place] [address] Elizabeth Dunn MD [address] [place], [place] [phone] Med Refill Social History Tobacco Use Types [...] Info) Description 03/22/2025 2:30 PM EST Telemedicine [facility] MEDICINE [address] [place] [address] Elizabeth Dunn MD [address] [place] [address] 06/07/2025 2:30 PM EST Office Visit [facility] OPTOMETRY [address] [place], [place] [phone] Mulu Osman, OD [address] [place] [address] documented as of this encounter Visit Diagnoses Not on filedocumented in this encounter Additional Health Concerns Assessment Noted Time PHQ-9 Depression Total Score: 0 08/03/19 23 3:13 PM EDT documented as of this encounter Care Teams Taxation Inspector Relationship Specialty Start Date End Date Elizabeth Dunn MD [address] [place] [address] PCP - General Family Medicine 03/17/18 Kai Bowden, RN [address] [place] [address] Registered Nurse Family Medicine 02/08/25 Manuela Melendez 02/08/25 Thao Barnhart Apartment House ManagerStained Glass Glazier Helper 02/07/23 documented as of this encounter
--- OUTSIDE RECORDS SUMMARY | 2025-03-02 22:52 | XMS_ITS | Encounter Summary ---
Author Organization [employer] Address [address] [facility] [address] 7[address] [place] [address] Care Team Providers Care Singing Telegram Performer Name Role Phone Elizabeth Dunn MD Primary Care Provide r Kai Bowden RN Unavailable [phone] Manuela Melendez Unavailable Encounter Details Date Type Department Care Team (Latest Contact Info) Description 02/28/2025 Travel Social History Tobacco Use Types Packs/Day [...] Info) Description 03/22/2025 2:30 PM EST Telemedicine [facility] MEDICINE [address] [place] [address] Elizabeth Dunn MD [address] [place] [address] 06/07/2025 2:30 PM EST Office Visit [facility] OPTOMETRY [address] [place] [address] Dawson, Mulu, OD [address] [place] [address] documented as of this encounter Visit Diagnoses Not on filedocumented in this encounter Additional Health Concerns Assessment Noted Time PHQ-9 Depression Total Score: 0 02/03/20 25 2:44 PM EDT documented as of this encounter Care Teams Singing Telegram Performer Relationship Specialty Start Date End Date Elizabeth Dunn MD [address] [place] [address] PCP - General Family Medicine 03/17/18 Kai Bowden, RN [address] [place] [address] Registered Nurse Family Medicine 02/08/25 Manuela Melendez 02/08/25 Thao Barnhart Inset CutterIt Business Systems Analyst 02/07/23 documented as of this encounter
--- OUTSIDE RECORDS SUMMARY | 2025-03-02 22:52 | XMS_ITS | Encounter Summary ---
Author Organization [employer] Address [address] [facility] 7t h Floor [place] [phone] Care Team Providers Care Electrician Name Role Phone Elizabeth Dunn MD Primary Care Provide r Kai Bowden RN Unavailable [phone] Manuela Melendez Unavailable Reason for Visit * Reason Onset Date Comments Nurse Triage 02/28/2025 Encounter Details Date Type Department Care Team ([facility] st Contact Info) Description 02/28/[address] [facility] MEDICINE [address] [place] [address] Elizabeth Dunn MD [address] [place] [address] Nurse Triage Social History Tobacco Use Types [...] encounter Miscellaneous Notes * Telephone Encounter - Tabby Recio RN - 02/28/2025 10:14 AM EDT TC placed to pt via S marine mammal trainer for triage. Pt reports 9/10 pain in right and left feet. Pt reports they were seen by PCP on 02/14 for this issue. Pt reports they are experiencing swelling of the right foot. Pt reports they are having difficulty bearing weight on feet. Pt reports their feet are colorless which is how they were at visit with PCP on 02/14/25. Pt reports they are unable to sleep because of the pain. Pt denies taking any medication for pain management. Pt denies fever, chills, redness to the feet. Pt reports they feel their feet are tight. Pt reports they feet are cold, but this is their baseline. Pt denies coolness to feet being abnormal for them. Pt reports a combination of feeling pain in the feet, numbness, and weakness. Pt denies new symptoms from when seen on 02/14 butreports no improvement in symptoms. Pt reports they were referred to podiatry, but they have not heard anything. Advised pt to contact podiatry office at [phone]. Advised pt to come to [facility] for evaluation. Pt verbalized understanding and states they will try to come to [facility]. Protocol Used: Foot Pain (Adult) Protocol-Based Disposition: See in Office or Video Visit Today Positive Triage Questions: * Severe pain (e.g., excruciating, unable to do any normal activities) * Weakness (i.e., loss of strength) of new-onset in foot or toes (Exceptions: Not truly weak, foot feels weak because of pain; weakness present > 2 weeks.) * Numbness (i.e., loss of sensation) in foot or toes (Exception: Just tingling; numbness present > 2 weeks.) * All higher-acuity triage questions were negative Care Advice Discussed: * Reasons To Call Back - Moderate pain (interferes with normal activities) lasts over 3 days - Mild pain lasts over 7 days - Signs of infection occur (such as spreading redness, warmth, fever) - You become worse * Telephone Encounter - Lo Clemens - 02/28/2025 10:10 AM EDT Symptom: Foot or Ankle Pain - Not From Injury Outcome: Talk to a nurse or provider within 15 minutes Reason: Can't walk (unless normally can't walk) The caller accepted this outcome. Contact pt at [phone] (puerto rican) documented in this encounter Plan of Treatment Upcoming Encounters Date Type Department Care Team (Late st Contact Info) Description 03/22/2025 2:[address] [facility] MEDIC[facility] [address] [place], [place] [phone] Elizabeth Dunn MD [address] [place] [address] 06/07/2025 2:30 PM EST Office Visit [facility] OPTOMETRY [address] [place] [phone] Mulu Osman, OD [address] [place] [address] documented as of this encounter Visit Diagnoses Not on filedocumented in this encounter Additional Health Concerns Assessment Noted Time PHQ-9 Depression Total Score: 0 02/03/20 2:44 PM EDT documented as of this encounter Care Teams Electrician Relationship Specialty Start Date End Date Elizabeth Dunn MD [address] [place] [address] PCP - General Family Medicine 03/17/18 Kai Bowden, MATT [address] [place] [address] Registered Nurse Family Medicine 02/08/25 Manuela Melendez 02/08/25 Thao Barnhart Care WorkerIncome Auditor 02/07/23 documented as of this encounter
--- OUTSIDE RECORDS SUMMARY | 2025-03-02 22:52 | XMS_ITS | Encounter Summary ---
Author Organization [employer] Address [address] [facility] 7t [place] [address] Care Team Providers Care Gravity Prospecting Operator Name Role Phone Elizabeth Dunn MD Primary Care Provide r Kai Bowden RN Unavailable [phone] Manuela Melendez Unavailable Reason for Referral * Imaging (Routine) - Authorized Specialty Diagnoses / Procedures Referred By Contac t Referred To Contact Radiology Diagnoses Acute right ankle pain Procedures Mr Ankle w/o Contrast Right Elizabeth Dunn MD [address] [place] [address] Phone: tel: fax: [address] Phone: tel: fax: Referral ID Status Reason Start Date Expiration Date V isits Requested Visits Authorized [id number] Authorized 03/01/2025 03/01/2026 1 1 * Imaging (Routine) - Authorized Specialty Diagnoses / Procedures Referred By Contac t Referred To Contact Radiology Diagnoses Right foot pain Procedures MR Foot w/o Contrast Right Elizabeth Dunn MD [address] [place] [address] Phone: tel: fax: [address] Phone: tel: fax: Referral ID Status Reason Start Date Expiration Date V isits Requested Visits Authorized [id number] Authorized 03/01/2025 03/01/2026 1 1 Encounter Details Date Type Department Care Team (Late st Contact Info) Description 03/01/2025 Orders Only [facility] MEDICINE [address] [place] [address] Elizabeth Dunn MD [address] [place] [address] Right foot pain (Primary Dx); Acute right ankle pain Social History Tobacco Use Types Packs/Day [...] Info) Description 03/22/2025 2:30 PM EST Telemedicine [facility] MEDICINE [address] [place] [address] Elizabeth Dunn MD [address] [place] [address] 06/07/2025 2:30 PM EST Office Visit [facility] OPTOMETRY [address] [place] [address] Mulu Osman, OD [address] [place] [address] Scheduled Orders Name Type Priority Associated Diagnoses Orde r Schedule MR Foot w/o Contrast Right Imaging Routine Right foot pain Expected: 03/01/2025, Expires: 03/01/2026 Mr Ankle w/o Contrast Right Imaging Routine Acute right ankle pain Expected: 03/01/2025, Expires: 03/01/2026 documented as of this encounter Visit Diagnoses Diagnosis Right foot pain- Primary Pain in soft tissues of limb Acute right ankle pain documented in this encounter Additional Health Concerns Assessment Noted Time PHQ-9 Depression Total Score: 0 02/03/20 25 2:44 PM EDT documented as of this encounter Care Teams Gravity Prospecting Operator Relationship Specialty Start Date End Date Elizabeth Dunn MD [address] [place] [address] PCP - General Family Medicine 03/17/18 Kai Bowden RN [address] [place] [address] Registered Nurse Family Medicine 02/08/25 Manuela Melendez 02/08/25 Thao Barnhart Pipe RollerFiltration Operator 02/07/23 documented as of this encounter
--- OUTSIDE RECORDS SUMMARY | 2025-03-02 22:52 | XMS_ITS | Encounter Summary ---
Author Organization [employer] Address [address] [facility] 7t [place] [address] Care Team Providers Care Matchbook Assembler Name Role Phone Elizabeth Dunn MD Primary Care Provide r Kai Bowden RN Unavailable [phone] Manuela Melendez Unavailable Reason for Visit * Reason Comments Care Management C3CM- Initial assess ment/enrollment/LVM Encounter Details Date Type Department Care Team ([facility] st Contact Info) Description 03/01/2025 Patient Outreach [facility] [address] [place] [address] Elizabeth Dunn MD [address] [place] [address] Care Management (C3CM- Initial assessment/enrollmen t/LVM) Social History Tobacco Use Types Packs/Day Years [...] Progress Notes * Kai Bowden RN - 03/01/2025 9:58 AM EDT CM Kai Bowden RN, placed outbound call to patient for agreed upon assessment time. No answer at this time, left message requesting call back at [phone] or CHW [phone]. CHW will attempt contact with patient to reschedule missed initial assessment. documented in this encounter Plan of Treatment Upcoming Encounters Date Type Department Care Team (Late st Contact Info) Description 03/22/2025 2:30 PM EST Telemedicine [facility] MEDICINE [address] [place], [place] [phone] Elizabeth Dunn MD [address] [place], [place] [phone] 06/07/2025 2:30 PM EST Office Visit [facility] OPTOMETRY [address] [place], [place] [phone] Dawson Mulu, OD [address] [place] [address] documented as of this encounter Visit Diagnoses Not on filedocumented in this encounter Additional Health Concerns Assessment Noted Time PHQ-9 Depression Total Score: 0 02/03/20 2:44 PM EDT documented as of this encounter Care Teams Matchbook Assembler Relationship Specialty Start Date End Date Elizabeth Dunn MD [address] [place] [address] PCP - General Family Medicine 03/17/18 Kai Bowden, MATT [address] [place] [address] Registered Nurse Family Medicine 02/08/25 Manuela Melendez 02/08/25 Thao Barnhart Receptionist Telephone OperatorLead Painter 02/07/23 documented as of this encounter
--- OUTSIDE RECORDS SUMMARY | 2025-03-02 22:52 | XMS_ITS | Patient Health Record ---
Author Organization [facility] Address [address] [place] [address] Care Team Providers Care Cabinet Abrasive Sandblaster Name Role Phone SHAHRZAD ENRIQUE Primary Care Provider Fracisco Cruz [phone] Allergies Allergen (clinical drug ingredient) Drug/Non Drug [...] Problem Screening for malignant neoplasm of colon (885819581) Encounter for screening for malignant neoplasm of colon (Z12.11) Active confirmed Problem History of adenomatous polyp of colon (695505612) History of adenomatous polyp of colon (Z86.010) Active confirmed Problem Screening for malignant neoplasm of rectum (700356115) Encounter for screening for malignant neoplasm of rectum (Z12.12) Active confirmed Problem Family History of Cancer of Colon (Situation) (976104326) Family history of colon cancer (Z80.0) Active confirmed Problem Long-term current use of drug therapy (988112800) Long-term use of high-risk medication (Z79.899) Active confirmed Plan Of Treatment Pending Test Test Name Order Date GI BIOPSY 02/05/2016 Future Test Test Name Order Date COLONOSCOPY 10/31/2015 Insurance Providers Payer Name Payer Address Payer Phone Subscriber Number Group Number Insured Name Patient Relationship to Insured Coverage Start Date Coverage End Date [employer] [address] [facility] [place] [id number] MICHAEL SUGGS Self - patient is the insured MEDICAID OF [employer] [address] [place] [id number] MICHAEL SUGGS Self - patient is the insured Medical (General) History Medical History History ICD Code Colonoscopy 2004 and 2009 with small tub ular adenomas removed Depression/Anxiety Fibromyalgia Fluid retention Denies CT,DM,CVA,Lung disease,renal dise ase Surgical History Surgery Date(Month/Year) Laparoscopic gastric bypass in 2005 Breast reduction Panniculectomy Hysterectomy with left oophorectomy Neck surgery--for a disc
--- OUTSIDE RECORDS SUMMARY | 2025-03-02 22:52 | XMS_ITS | Encounter Summary ---
Author Organization [employer] Address [address] [place] [address] [address] [place] [address] Care Team Providers Care Cribbing Setter Name Role Phone Elizabeth Dunn MD Primary Care Provide r Kai Bowden RN Unavailable [phone] Manuela Melendez Unavailable Reason for Visit * Reason Onset Date Comments Med Refill 12/04/2022 Encounter Details Date Type Department Care Team (Late st Contact Info) Description 12/04/2022 Telephone [facility] MEDICINE [address] [place] [address] Elizabeth Dunn MD [address] [place], [place] [phone] Med Refill Social History Tobacco Use Types [...] Info) Description 03/22/2025 2:30 PM EST Telemedicine [facility] MEDICINE [address] [place] [address] Elizabeth Dunn MD [address] [place] [address] 06/07/2025 2:30 PM EST Office Visit [facility] OPTOMETRY [address] [place], [place] [phone] Mulu Osman, OD [address] [place] [address] documented as of this encounter Visit Diagnoses Not on filedocumented in this encounter Additional Health Concerns Assessment Noted Time PHQ-9 Depression Total Score: 0 08/03/19 23 3:13 PM EDT documented as of this encounter Care Teams Cribbing Setter Relationship Specialty Start Date End Date Elizabeth Dunn MD [address] [place] [address] PCP - General Family Medicine 03/17/18 Kai Bowden, RN [address] [place] [address] Registered Nurse Family Medicine 02/08/25 Manuela Melendez 02/08/25 Thao Barnhart Sales AdministratorBusiness Project Analyst 02/07/23 documented as of this encounter
== END 2025-03-02 22:20 | disposition left against medical advice (07) ==
PROVIDERS: Physician Assistant Medical; Emergency Provider Emergency Medicine
DX: M79.672 Pain in left foot (principal); M79.671 Pain in right foot; R60.0 Localized edema; I10 Essential (primary) hypertension; M10.9 Gout, unspecified
CPT/HCPCS: 36415; 80053; 83735; 83880; 84550; 85025; 99281; 99283

== ENCOUNTER 2025-03-04 13:31 | Emergency (ER) | payer MEDICAID, SELFPAY ==
--- OUTSIDE RECORDS SUMMARY | 2025-02-28 14:00 | XMS_ITS | Encounter Summary ---
Author Organization [employer] Address [address]t [place] [address] Care Team Providers Care Development Expert Name Role Phone Veronika Dunn MD Primary Care Provide r Kai Bowden RN Unavailable [phone] Manuela Melendez Unavailable Reason for Referral * Imaging (Routine) - Canceled Specialty Diagnoses / Procedures Referred By Contac t Referred To Contact Radiology Diagnoses Acute right ankle pain Procedures MR Ankle w/ and w/o Contrast Right Veronika Dunn MD [address] [place] [address] Phone: tel: fax: [address] Phone: tel: fax: Referral ID Status Reason Start Date Expiration Date V isits Requested Visits Authorized [id number] Canceled 02/28/2025 02/28/2026 1 1 * Imaging (Routine) - Canceled Specialty Diagnoses / Procedures Referred By Contac t Referred To Contact Radiology Diagnoses Right foot pain Procedures MR Foot w/ and w/o Contrast Right Veronika Dunn MD [address] [place] [address] Phone: tel: fax: [address] Phone: tel: fax: Referral ID Status Reason Start Date Expiration Date V isits Requested Visits Authorized [id number] Canceled 02/28/2025 02/28/2026 1 1 Reason for Visit * Reason Comments Foot Pain Encounter Details Date Type Department Care Team (Late st Contact Info) Description 02/28/2025 2:00 PM EDT Office Visit [facility] [address] [place] [address] Veronika Dunn MD [address] [place], [place] [phone] Acute right ankle pain; Right foot pain [...] of recurrent major depressive disorder (CMS/HCC) ([facility]) Asthma COVID-19 Diabetes 1.5, managed as type [...] medication T2DM (type 2 diabetes mellitus) ([facility]) Encounter for screening for malignant neoplasm of colon Encounter for screening for malignant neoplasm of rectum Acute nontraumatic kidney injury Acute pain of right shoulder Class 1 obesity due to excess calories with serious comorbidity and body mass index (BMI) of 34.0 to 34.9 in adult Diabetic mononeuropathy simplex ([facility]) Right foot pain Left foot pain Polyarthralgia [...] MOUTH EVERY MORNING 90 tablet 3 Lancets [facility] [place] Use [...] Info) Description 03/22/2025 2:30 PM EST Telemedicine [facility] MEDIC[facility] [address] [place] [address] Veronika Dunn MD [address] [place] [address] 06/07/2025 2:30 PM EST Office Visit [facility] OPTOMETRY [address] [place] [address] Mulu Osman, OD [address] [place] [address] Scheduled Orders Name Type Priority Associated Diagnoses [...] documented as of this encounter Care Teams Development Expert Relationship Specialty Start Date End Date Veronika Dunn MD [address] [place] [address] PCP - General Family Medicine 03/17/18 Kai Bowden, MATT [address] [place] [address] Registered Nurse Family Medicine 02/08/25 Manuela Melendez 02/08/25 Thao Barnhart Supply And Distribution ManagerShredding Floor Equipment Operator 02/07/23 documented as of this encounter
[2025-03-04 13:39] VITALS: BP 108/66; BP 118/82; PULSE 74; RESP 18; TEMP 36.7; O2SAT 95; O2SAT 97; BMI 32.7
--- NOTE | 2025-03-04 14:02 | ECG_ITS ---
Test Reason : CP Blood Pressure : */* mmHG Vent. Rate : 72 BPM Atrial Rate : * BPM P-R Int : * ms QRS Dur : 96 ms QT Int : 394 ms P-R-T Axes : * -26 129 degrees QTcB Int : 431 ms Ectopic atrial rhythm Minimal voltage criteria for LVH, may be normal variant ( R in aVL ) Nonspecific T wave abnormality Abnormal ECG When compared with ECG of 22-Feb-2025 13:07, Unusual P axis, possible ectopic atrial rhythm has replaced Sinus rhythm Minimal criteria for Anterior infarct are no longer Present Nonspecific T wave abnormality now evident in Inferior leads Nonspecific T wave abnormality now evident in Lateral leads Referred By: Generic ED Physician Electronically Signed By: JULIO C FULTON MD
[2025-03-04 14:40] LABS: MANUAL DIFF FLAG NO
[2025-03-04 14:45] LABS: Hematocrit 35.3 % (37.0-47.0); Hemoglobin 11.1 g/dl (12.0-16.0); Imm Gran Abs Auto 0.05 X10*3/uL (0.00-0.03); Imm Gran Pct Auto 0.5 % (0.0-0.4); Lymphocytes Absolute Auto 2.3 X10*3/uL (1.2-4.9); Mean Corpuscular HGB Conc 31.4 g/dl (31.0-35.0); Mean Corpuscular Hemoglobin 24.0 pg (27.0-33.0); Mean Corpuscular Volume 76.2 fL (80.0-98.0); NRBC Abs Auto 0.000 X10*3/uL (0.0-0.012); NRBC Pct Auto 0.0 /100WBC (0.0-0.2); Platelet Count 233 X10*3/uL (160-400); Red Blood Count 4.63 X10*6/uL (4.20-5.50); White Blood Count 9.5 X10*3/uL (4.8-10.8)
--- NOTE | 2025-03-04 14:45 | ED_ITS ---
HPI - Chest Pain General Chief Complaint: Chest Pain Stated Complaint: A/O CP S/P ACCIDENTAL OD PER EMS Time Seen by Provider: 03/04/25 14:33 Source: patient, EMS, RN notes reviewed, old records reviewed and health center assistant Mode of arrival: EMS Limitations: language barrier ([place]er-speaking) History of Present Illness ED Provider: KERRI Sandoval HPI narrative: 65-year-old [place]er-speaking female with medical history of osteoarthritis, HLD, HTN, T2DM, presents to the ED by EMS as she was concerned for a medication overdose. Patient states she woke up this morning ate breakfast and took her morning medications including metformin, hydrochlorothiazide, Lyrica, and Effexor. Patient states she ate again and laid down for a nap. When she woke up, she forgot she took those medications and took them again. Soon after she started experiencing chest tightness, bubbling in the stomach, and dizziness. Related Data Home Medications ?Medication ?Instructions ?Recorded ?Confirmed aripiprazole 10 mg tablet 10 mg PO DAILY 01/23/2404/11 ferrous sulfate 325 mg (65 mg 325 mg PO DAILY 01/23/24 04/23/24 iron) tablet,delayed release trazodone 100 mg tablet 300 mg PO BEDTIME 01/23/24 1 06/24/23 venlafaxine 150 mg 300 mg PO QAM 01/23/2404/23 capsule,extended release 24 hr semaglutide (weight loss) 0.25 0.25 mg subcut QWEEK mg/0.5 mL subcutaneous pen injector (Wegovy) gabapentin 300 mg capsule 300 mg PO BID 08/12/24 Previous Rx's ?Medication ?Instructions ?Recorded clonazepam 1 mg tablet 1 mg PO BID 30 days #60 tabs 12/16/22 albuterol sulfate 90 mcg/actuation 1 inh inhalation QI D PRN shortness 08/12/23 aerosol inhaler of breath or wheezing #6.7 g kulwinder gabapentin 600 mg tablet 600 mg PO BEDTIME #30 tabs 0 08/12/23 hydrochlorothiazide 50 mg tablet 50 mg PO DAILY #30 ta bs 08/12/23 metformin 500 mg tablet,extended 500 mg PO BIDWM #60 t abs 08/12/23 release 24 hr polyethylene glycol 3350 17 gram 17 g PO DAILY #30 ea 08/12/23 oral powder packet sennosides 8.6 mg-docusate sodium 2 tab PO BID #120 ta bs 08/12/23 50 mg tablet (Senna Plus) acetaminophen 500 mg capsule 1,000 mg (2 x 500 mg) PO TID PRN 09/25/23 pain #90 caps methocarbamol 750 mg tablet 750 mg PO TID moderate yfn n & 09/25/23 muscle spasms #30 tabs lidocaine 5 % topical patch 1 patch topical DAILY #30 ea 11/13/23 ketorolac 10 mg tablet 10 mg PO Q8H 3 days #9 tabs 03/01/24 lidocaine 5 % topical patch 1 patch topical DAILY #30 ea 03/01/24 (Lidoderm) naloxone 4 mg/actuation nasal 4 mg intranasal Q2M PRN opioid 08/12/24 spray (Narcan) overdose #2 ea oxycodone 5 mg tablet 5 mg PO Q8H PRN pain 10 days #30 08/12/24 tabs doxycycline hyclate 100 mg capsule 100 mg PO BID #13 c aps 02/07/25 ketorolac 10 mg tablet 10 mg PO Q6H PRN pain #20 ta bs 02/07/25 docusate sodium 100 mg capsule 100 mg PO DAILY #30 cap s 02/12/25 (Colace) polyethylene glycol 3350 17 gram 17 g PO DAILY #30 ea 02/12/25 oral powder packet (Miralax) Allergies Allergy/AdvReac Type Severity Reaction Status Date / Time morphine (MORPHINE) Allergy Intermediate PALPITATIONS, Verified 03/04/25 13:53 tachicardia quetiapine (Seroquel) Allergy Intermediate Aggitation Verified 03/04/25 13:53 orphenadrine (ORPHENADRINE) AdvReac Intermediate RAPID Verified 03/04/25 13:53 HEART RATE Review of Systems 2 Review of Systems: CONST: Negative for fever, body aches and chills. HENT: Negative for neck pain/stiffness, headache, congestion, sore throat, swelling. EYES: Negative for discharge/pain or vision changes. RESP: Negative for cough/hemoptysis and shortness of breath. CV: Negative chest pain, difficulty breathing, palpitations. POS chest tightness ABD: Negative pain, nausea, vomiting. : Negative increase frequency, dysuria, blood in urine or stool. POS sensation of bubbling in the stomach MUSC: Negative for muscle aches, edema. SKIN: Negative rash, lesions/sores. NEURO: Negative headache, dizziness, weakness. Yes all other systems are reviewed and are negative [facility] Past Medical History Attestation statement: The following information was validated with the patient. Source: old records reviewed and nursing notes reviewed Medical History Weakness Arthritis History of brain inflammation Protrusion of lumbar intervertebral disc Tinnitus Venous insufficiency Osteoarthritis Loss of hair History of headache Fibromyositis Fatigue Hyperlipidemia HTN (hypertension) Continuous opioid dependence Sinusitis Anemia Anxiety Diverticulosis Chronic idiopathic constipation Migraine Asthma Depression Diabetes 1.5, managed as type 2 Fibromyalgia Surgical History History of back surgery History of esophagogastroduodenoscopy (EGD) S/P panniculectomy Hx of hysterectomy Hx of oophorectomy Hx of bilateral breast reduction surgery H/O colonoscopy History of pubovaginal sling Gastric bypass status for obesity Family History Family History Mother Colon cancer Social History Social History Household Members: Spouse and Children Household Members Other:: lives alone Housing: House Are you a primary hospice care sales consultant to a significant other at home: No Do you presently have visiting nurse or other home services: Yes (RENEWALS SPECIALIST) Alcohol intake: never Comment: IV infiltrated Patient Tobacco Use Status: Never used Tobacco Second Hand Smoke Exposure: No Advance Directives: Yes Advance Directives on File: Yes Advance Directives Date on File: 07/24/23 service: No Current occupational status: disabled Sexual orientation: Straight/Heterosexual Gender identity: Female Physical Exam 2 Vital Signs: Vital Signs: Last Vital Signs Temp 97.8 F 03/04/25 17:30 Pulse 76 03/04/25 17:30 Resp 16 03/04/25 17:30 BP 117/66 03/04/25 17:30 Pulse Ox 98 03/04/25 17:30 O2 Del Method Room Air 03/04/25 17:30 BMI result Body Mass Index 32.7 GENERAL APPEARANCE: ?AxOx4, generally well-appearing, no acute distress. HEENT: ?NC, AT. MMM. EOMI, clear conjunctiva, oropharynx clear. NECK: ?Supple without lymphadenopathy.? No stiffness or restricted ROM. HEART:? Normal rate and regular rhythm, normal S1/S2, no m/r/g LUNGS:? CTAB, moving air well. No crackles or wheezes are heard. ABDOMEN: ?Soft, nontender, nondistended with good bowel sounds heard. BACK: No CVAT, no obvious deformity. EXTREMITIES: ?Without cyanosis, clubbing or edema. NEUROLOGICAL: ?Grossly nonfocal. Alert and oriented, moving all 4 extremities. Skin: ?Warm and dry without any rash. Course Reevaluation(s) Reevaluation #1: Received patient in sign out from CAMELIA [place] pending re-evaluation. Patient awake, alert, eating a sandwich. Recheck of POC glucose is 62, patient is asymptomatic. Feel she is stable for discharge at this time, patient in agreement with this. Advised her to eat a meal with protein and carbs on arrival home. Return precautions discussed. Patient verbalized understanding of and agreement with plan. Time: 18:35 Medications Administered Discontinued Medications Generic Name Dose Route Start Last Admin Trade Name Freq PRN Reason Stop Dose Admin Glucose 15 gm 03/04/25 15:12 03/04/25 15:18 Glucose Gel 15 Gm Gel..Gram. PO 03/04/25 15:13 15 gm ONCE ONE Administration Lactated Ringer's 1,000 mls @ 999 mls/hr 03/04/25 16:26 03/04/25 17:00 Lr IV 03/04/25 17:26 999 mls/hr .Q1H1M ONE Administration Medical Decision Making Medical Decision Making MDM Narrative: 65-year-old [place]er-speaking female with medical history of osteoarthritis, HLD, HTN, T2DM, presents to the ED by EMS as she was concerned for a medication overdose. Patient states she woke up this morning ate breakfast and took her morning medications including metformin, hydrochlorothiazide, Lyrica, and Effexor. Patient states she ate again and laid down for a nap. When she woke up, she forgot she took those medications and took them again. Soon after she started experiencing chest tightness, bubbling in the stomach, and dizziness. Denies opioid use, has not taken any opioids for pain management today. VS on initial observation-BP 118/82, pulse rate of 74, respiratory rate of 18, afebrile with oral temp of 98.1?, O2 saturation 95% on room air. Physical exam was benign, lungs clear to auscultation bilaterally without wheezes, rales, rhonchi, cardiac exam with normal rate and rhythm, EOMI, no miosis, no nystagmus, no murmurs/rubs/gallops, abdomen is soft, non distended, no rigidity, no guarding, non tender. No lower extremity edema present. EKG reveals accelerated junctional rhythm, without significant ST- elevation/depression, prolonged QT, troponins x2 Labs without leukocytosis/leukopenia, stable microcytic anemia with a hemoglobin of 11.1, hematocrit of 35.3, no electrolyte abnormalities, hypoglycemia with a random serum glucose of 48. Patient is symptomatic as she is dizzy, and states she is feeling tired. Patient given apple juice, turkey sandwich and 15g glucose gel for correction. Patient is afebrile, without confusion, mydriasis, tachycardia, hypertension, diaphoresis- serotonin syndrome from effexor less likely. Low suspicion for opioid intoxication as patient denies taking opioid medications, no history of opiate use disorder, no miosis, patient is alert and oriented- less likely opioid intoxication/withdrawal. Symptoms most likely due to hypoglycemia. Patient feels mildly improved after 15g glucose, apple juice and turkey sandwich. Patient was able to ambulate but states her legs feel a little shaky. Will give additional juice and 1L IV fluids. Differential Diagnosis Differential Diagnoses: The differential diagnosis associated with the presentation includes Serotonin syndrome Hypoglycemia Dysrhythmia Electrolyte abnormality Opioid intoxication Admission/Observation Consideration of admission/observation: Escalation of care including admission/observation considered Lab Data MDM Lab Attestation statement: I reviewed the patient's lab results. 03/04/25 14:32 03/04/25 14:32 Labs: Lab Results 03/04/25 03/04/25 Range/Units 14:32 15:57 WBC 9.5 (4.8-10.8) X10*3/uL RBC 4.63 (4.20-5.50) X10*6/uL Hgb 11.1 L (12.0-16.0) g/dl Hct 35.3 L (37.0-47.0) % MCV 76.2 L (80.0-98.0) fL MCH 24.0 L (27.0-33.0) pg MCHC 31.4 (31.0-35.0) g/dl RDW 19.8 H (11.0-16.0) % Plt Count 233 (160-400) X10*3/uL MPV 10.9 (9.4-12.3) fL Immature Gran % (Auto) 0.5 H (0.0-0.4) % Neut % (Auto) 64.9 (45-73) % Lymph % (Auto) 24.1 (20-40) % Doddridge % (Auto) 9.1 (2-11) % Eos % (Auto) 1.2 (0-4) % Baso % (Auto) 0.2 (0-2) % Lymph # (Auto) 2.3 (1.2-4.9) X10*3/uL Doddridge # (Auto) 0.9 (0.1-1.2) X10*3/uL Eos # (Auto) 0.1 (0.0-0.4) X10*3/uL Baso # (Auto) 0.0 (0.0-0.2) X10*3/uL Abs Immat Gran (auto) 0.05 H (0.00-0.03) X10*3/uL Absolute Neuts (auto) 6.2 (2.0-8.3) x10*3/uL Absolute Nucleated RBC 0.000 (0.0-0.012) X10*3/uL Nucleated RBC % (auto) 0.0 (0.0-0.2) /100WBC Sodium 143 (135-145) mmol/L Potassium 4.2 (3.3-5.1) mmol/L Chloride 105 (96-108) mmol/L Carbon Dioxide 28 (22-29) mmol/L Anion Gap 14 (12-20) BUN 16 (9-16) mg/dL Creatinine 1.01 (0.5-1.4) mg/dL Estim Creat Clear Calc 62.8 Estimated GFR 55 POC Glucose 146 H (60-115) mg/dL Random Glucose 48 L* (60-115) mg/dL Calcium 8.7 D (8.4-10.2) mg/dL Magnesium 2.2 (1.6-2.6) mg/dL Total Bilirubin 0.2 (0.0-1.0) mg/dL AST 21 (5-31) U/L ALT 12 (0-31) U/L Alkaline Phosphatase 76 (39-117) U/L Troponin I High Sens < 2.7 (<3.5-17.0) ng/L Total Protein 7.1 (6.5-8.0) g/dL Albumin 4.2 (3.5-5.0) g/dL Independent Interpretation I performed an independent interpretation of an: EKG Interpretation: I personally interpreted the EKG which reveals accelerated junctional rhythm with a nonspecific T-wave abnormality, without significant ST- elevation/depression, prolonged QT Vent. Rate : 72 BPM Atrial Rate : * BPM P-R Int : * ms QRS Dur : 96 ms QT Int : 394 ms P-R-T Axes : * -26 129 degrees QTcB Int : 431 ms Accelerated Junctional rhythm Minimal voltage criteria for LVH, may be normal variant ( R in aVL ) Nonspecific T wave abnormality Abnormal ECG When compared with ECG of 22-Feb-2025 13:07, Junctional rhythm has replaced Sinus rhythm Minimal criteria for Anterior infarct are no longer Present Nonspecific T wave abnormality now evident in Inferior leads Nonspecific T wave abnormality now evident in Lateral leads External Record Review External record reviewed: Inpatient record, Office record and Outpatient record Chronic Conditions Patient?s care impacted by: Diabetes, Hypertension and Other (HLD) Discharge Plan Discharge Clinical Impression: Hypoglycemia Drug ingestion, accidental Qualifiers: Encounter type: initial encounter Qualified Code(s): T50.901A - Poisoning by unspecified drugs, medicaments and biological substances, accidental (unintentional), initial encounter Patient Disposition: Home, Self-Care Additional Instructions: You were evaluated in the ED after taking double of your morning medications including metformin, hydrochlorothiazide, Lyrica, Effexor. Your lab work was significant for a low blood glucose level of 48. You were medicated with 15g of glucose gel which increased your glucose back to normal level of 146. Your EKG did not have emergent findings, your troponin which is a protein your heart gives off if under stress or damage were both negative. We recommend that you have a meal containing carbs and protein when you get home. Please follow up with your primary care doctor to ensure improvement. Please return to the ED if you experience worsening headache, worsening weakness, dizziness, fevers over 100.4?, chest pain, shortness of breath or any new/worsening/concerning symptoms. Prescriptions: No Action clonazepam 1 mg tablet 1 mg PO BID 30 Days Qty: 60 0RF albuterol sulfate 90 mcg/actuation HFA aerosol inhaler 1 inh inhalation QID PRN (Reason: shortness of breath or wheezing) Qty: 6.7 0RF gabapentin 600 mg tablet 600 mg PO BEDTIME Qty: 30 0RF hydrochlorothiazide 50 mg tablet 50 mg PO DAILY Qty: 30 0RF polyethylene glycol 3350 17 gram powder in packet 17 g PO DAILY Qty: 30 0RF sennosides-docusate sodium [Senna Plus] 8.6-50 mg Tablet 2 tab PO BID Qty: 120 0RF metformin 500 mg Tablet Extended Release 24 Hr 500 mg PO BIDWM Qty: 60 0RF lidocaine 5 % adhesive patch,medicated 1 patch topical DAILY Qty: 30 0RF Rx Instructions: leave on most painful area for up to 12 hrs ketorolac 10 mg tablet 10 mg PO Q8H 3 Days Qty: 9 0RF lidocaine [Lidoderm] 5 % adhesive patch,medicated 1 patch topical DAILY Qty: 30 0RF Rx Instructions: leave on most painful area for up to 12 hrs doxycycline hyclate 100 mg capsule 100 mg PO BID Qty: 13 0RF ketorolac 10 mg tablet 10 mg PO Q6H PRN (Reason: pain) Qty: 20 0RF Rx Instructions: maximum total duration of 5 days from all oral, intranasal, or parenteral formulations. Patient received an intramuscular dose of Toradol here in the emergency room. polyethylene glycol 3350 [Miralax] 17 gram powder in packet 17 g PO DAILY Qty: 30 0RF docusate sodium [Colace] 100 mg capsule 100 mg PO DAILY Qty: 30 0RF Wegovy 0.25 mg/0.5 mL pen injector 0.25 mg subcut QWEEK gabapentin 300 mg capsule 300 mg PO BID oxycodone 5 mg tablet 5 mg PO Q8H PRN (Reason: pain) 10 Days Qty: 30 0RF Rx Instructions: Partial Fill upon patient request. naloxone [Narcan] 4 mg/actuation spray,non-aerosol 4 mg intranasal Q2M PRN (Reason: opioid overdose) Qty: 2 0RF Rx Instructions: spray 1 dose into ONE nostril; alternate nostrils w each dose until help arrives methocarbamol 750 mg tablet 750 mg PO TID Qty: 30 0RF acetaminophen 500 mg capsule 1,000 mg PO TID PRN (Reason: pain) Qty: 90 0RF aripiprazole 10 mg tablet 10 mg PO DAILY venlafaxine 150 mg capsule,extended release 24hr 300 mg PO QAM trazodone 100 mg tablet 300 mg PO BEDTIME ferrous sulfate 325 mg (65 mg iron) tablet,delayed release (DR/EC) 325 mg PO DAILY Print Language: [place]
[2025-03-04 15:08] LABS: Troponin-I High Sensitivity < 2.7 ng/L (<3.5-17.0)
[2025-03-04 15:13] LABS: Alanine Aminotransferase 12 U/L (0-31); Albumin Level 4.2 g/dL (3.5-5.0); Alkaline Phosphatase 76 U/L (39-117); Anion Gap 14 (12-20); Aspartate Amino Transferase 21 U/L (5-31); Blood Urea Nitrogen 16 mg/dL (9-16); Calcium 8.7 mg/dL (8.4-10.2); Carbon Dioxide 28 mmol/L (22-29); Chloride 105 mmol/L (96-108); Creatinine Clr Calc Pharmacy 62.8; Estimated Glomerular Filt Rate 55; Magnesium 2.2 mg/dL (1.6-2.6); Potassium 4.2 mmol/L (3.3-5.1); Sodium 143 mmol/L (135-145); Total Protein 7.1 g/dL (6.5-8.0)
[2025-03-04] MEDS: Glucose Gel 15 GM GEL..GRAM. PO (15:18)
[2025-03-04 16:02] LABS: Glucose, Whole Blood 146 mg/dL (60-115)
[2025-03-04 16:20] VITALS: BP 112/71; PULSE 73; RESP 16; O2SAT 98
--- OUTSIDE RECORDS SUMMARY | 2025-03-04 16:20 | XMS_ITS | Encounter Summary ---
Author Organization [employer] Address [address] [facility] [address] [place] [address] Care Team Providers Care Co Teacher Name Role Phone Elizabeth Dunn MD Primary Care Provide r Kai Bowdne RN Unavailable [phone] Manuela Melendez Unavailable Reason for Visit * Reason Onset Date Comments Nurse Triage 11/26/2023 Encounter Details Date Type Department Care Team ([facility] st Contact Info) Description 11/26/[address] [facility] MEDICINE [address] [place] [address] Elizabeth Dunn MD [address] [place], [place] [phone] Nurse Triage Social History Tobacco Use Types [...] to PT. Per pt has not called welding process specialist to notify of increased pain with [...] Info) Description 03/22/2025 2:30 PM EST Telemedicine [facility] MEDICINE [address] [place] [address] Elizabeth Dunn MD [address] [place] [address] 06/07/2025 2:30 PM EST Office Visit [facility] OPTOMETRY [address] [place] [address] Dawson, Mulu, OD [address] [place] [address] documented as of this encounter Visit Diagnoses Not on filedocumented in this encounter Additional Health Concerns Assessment Noted Time PHQ-9 Depression Total Score: 0 08/20/19 24 2:32 PM EDT documented as of this encounter Care Teams Co Teacher Relationship Specialty Start Date End Date Elizabeth Dunn MD [address] [place] [address] PCP - General Family Medicine 03/17/18 Kai Bowden, RN [address] [place] [id number] Registered Nurse Family Medicine 02/08/25 Manuela Melendez 02/08/25 Thao Barnhart Roll ReclaimerElectronics Processor 02/07/23 documented as of this encounter
--- OUTSIDE RECORDS SUMMARY | 2025-03-04 16:20 | XMS_ITS | Encounter Summary ---
Author Organization [employer] Address [address] [facility] [address] [place] [address] Care Team Providers Care Welder 2Nd Shift Name Role Phone Elizabeth Dunn MD Primary Care Provide r Kai Bowden RN Unavailable [phone] Manuela Melendez Unavailable Reason for Visit * Reason Comments Med Refill Encounter Details Date Type Department Care Team ([facility] st Contact Info) Description 12/15/2024 Refill [facility] MEDICINE [address] [place] [address] Elizabeth Dunn MD [address] [place] [address] Social History Tobacco Use Types Packs/Day Years [...] 03/22/2025 2:30 PM EST Telemedicine [facility] MEDICINE [address] [place] [address] Elizabeth Dunn MD [address] [place] [address] 06/07/2025 2:30 PM EST Office Visit [facility] OPTOMETRY [address] [place] [address] Dawson, Mulu, OD [address] [place] [address] documented as of this encounter Visit Diagnoses Not on filedocumented in this encounter Additional Health Concerns Assessment Noted Time PHQ-9 Depression Total Score: 0 08/20/19 24 2:32 PM EDT documented as of this encounter Care Teams Welder 2Nd Shift Relationship Specialty Start Date End Date Elizabeth Dunn MD [address] [place] [address] PCP - General Family Medicine 03/17/18 Kai Bowden RN [address] [place] [phone] Registered Nurse Family Medicine 02/08/25 Manuela Melendez 02/08/25 Thao Barnhart Clean Room OperatorLead Generation Specialist 02/07/23 documented as of this encounter
--- OUTSIDE RECORDS SUMMARY | 2025-03-04 16:20 | XMS_ITS | Encounter Summary ---
Author Organization [employer] Address [address] [place] [address] [address] [place] [address] Care Team Providers Care Acoustical Installer Name Role Phone Elizabeth Dunn MD Primary Care Provide r Kai Bowden RN Unavailable [phone] Manuela Melendez Unavailable Encounter Details Date Type Department Care Team (Late st Contact Info) Description 01/29/2023 Orders Only [facility] MEDICINE [address] [place] [address] [phone] ProviderHector MD Social History Tobacco Use Types [...] EST Telemedicine [facility] MEDICINE [address] [place] [address] [phone] Elizabeth Dunn MD [address] [place], [place] [phone] 06/07/2025 2:30 PM EST Office Visit [facility] OPTOMETRY [address] [place] [address] Mluu Osman, OD [address] [place] [address] documented as of this encounter Procedures Procedure [...] documented as of this encounter Care Teams Acoustical Installer Relationship Specialty Start Date End Date Elizabeth Dunn MD [address] [place], [place] [phone] PCP - General Family Medicine 03/17/18 Kai Bowden, RN [address] [place] [address] Registered Nurse Family Medicine 02/08/25 Manuela Melendez 02/08/25 Thao Barnhart Environmental Field Office ManagerRegistered Midwife 02/07/23 documented as of this encounter
--- OUTSIDE RECORDS SUMMARY | 2025-03-04 16:20 | XMS_ITS | Encounter Summary ---
Author Organization [employer] Address [address] [facility] [address]t [place] [address] Care Team Providers Care Manufacturing Automation Engineer Name Role Phone Elizabeth Dunn MD Primary Care Provide r Kai Bowden RN Unavailable [phone] Manuela Melendez Unavailable Encounter Details Date Type Department Care Team (Late st Contact Info) Description 03/01/2025 Orders Only [facility] MEDICINE [address] [place] [address] Elizabeth Dunn MD [address] [place] [address] Acute right ankle pain; Right foot pain [...] Info) Description 03/22/2025 2:30 PM EST Telemedicine [facility] MEDICINE [address] [place] [address] Elizabeth Dunn MD [address] [place] [address] 06/07/2025 2:30 PM EST Office Visit [facility] OPTOMETRY [address] [place] [address] Dawson, Mulu, OD [address] [place] [address] documented as of this encounter Visit Diagnoses Diagnosis Acute right ankle pain Right foot pain Pain in soft tissues of limb documented in this encounter Additional Health Concerns Assessment Noted Time PHQ-9 Depression Total Score: 0 02/03/20 25 2:44 PM EDT documented as of this encounter Care Teams Manufacturing Automation Engineer Relationship Specialty Start Date End Date Elizabeth Dunn MD [address] [place] [address] PCP - General Family Medicine 03/17/18 Kai Bowden, RN [address] [place] [phone] Registered Nurse Family Medicine 02/08/25 Manuela Melendez 02/08/25 Thao Barnhart City Council MemberPayroll Bookkeeper 02/07/23 documented as of this encounter
--- OUTSIDE RECORDS SUMMARY | 2025-03-04 16:20 | XMS_ITS | Encounter Summary ---
Author Organization [employer] Address [address] [facility] [address] [place] [phone] Care Team Providers Care Hospital Personnel Director Name Role Phone Elizabeth Dunn MD Primary Care Provide r Kai Bowden RN Unavailable [phone] Manuela Melendez Unavailable Reason for Visit * Reason Onset Date Comments Med Refill 06/21/2024 Encounter Details Date Type Department Care Team ([facility] st Contact Info) Description 06/21/2024 Telephone [facility] MEDICINE [address] [place] [address] Elizabeth Dunn MD [address] [place], [place] [phone] Med Refill Social History Tobacco Use Types [...] 500 MG tablet To be sent to: [facility]/pharmacy #[id number] documented in this encounter Plan of Treatment Upcoming Encounters Date Type Department Care Team (Late st Contact Info) Description 03/22/2025 2:30 PM EST Telemedicine [facility] MEDICINE [address] [place], [place] [phone] Elizabeth Dunn MD [address] [place] [address] 06/07/2025 2:30 PM EST Office Visit [facility] OPTOMETRY [address] [place], [place] [phone] Mulu Osman, OD [address] [place] [address] documented as of this encounter Visit Diagnoses Not on filedocumented in this encounter Additional Health Concerns Assessment Noted Time PHQ-9 Depression Total Score: 0 08/20/19 24 2:32 PM EDT documented as of this encounter Care Teams Hospital Personnel Director Relationship Specialty Start Date End Date Elizabeth Dunn MD [address] [place], [place] [phone] PCP - General Family Medicine 03/17/18 Kai Bowden, MATT [address] [place] [id number] Registered Nurse Family Medicine 02/08/25 Manuela Melendez 02/08/25 Thao Barnhart Surgical Instrument TechnicianSewing Teacher 02/07/23 documented as of this encounter
--- OUTSIDE RECORDS SUMMARY | 2025-03-04 16:20 | XMS_ITS | Clinical Summary ---
Author Organization [facility], Address [address] [place] [address] Phone Care Team Providers Care Senior Engineering Associate Name Role Phone Elizabeth Dunn MD [...] Calculated 126 0 - 160 mg/dL 05/31/2020 [facility] Provider LAB BLOOD ORDERABLES Sandy l Result from Last 3 Months or Most Recently Relevant to Health Maintenance Insurance [place] Member Subscriber Plan / Payer (Ef fective 2020-Present) Name:Jose Antonio Rivasda Relation to Subscriber:Self Name:Lelo Rivas Payer ID:Not on file Group ID:Not on file Type:Not on file Address: [address] Medicaid [place] Care Teams Senior Engineering Associate Relationship Specialty Start Date End Date Elizabeth Dunn MD [address] [place] [phone] PCP - General Internal Medicine 11/17/20
--- OUTSIDE RECORDS SUMMARY | 2025-03-04 16:20 | XMS_ITS | Encounter Summary ---
Author Organization [facility] Address [address] [facility] 7t h Floor [place] [id number] Care Team Providers Care Mfg Assoc Name Role Phone Elizabeth Dunn MD Primary Care Provide r Kai Bowden RN Unavailable [phone] Manuela Melendez Unavailable Reason for Visit * Reason Onset Date Comments Med Refill 03/01/2025 Encounter Details Date Type Department Care Team (Late st Contact Info) Description 03/01/2025 Refill [facility] MEDICINE [address] [place] [address] Elizabeth Dunn MD [address] [place] [address] Acute right ankle pain; Right foot pain [...] 0.6 MG capsule To be sent to: [facility]/pharmacy #[id number] [place], [place] - [address] [place] [address] documented in this encounter Plan of Treatment Upcoming Encounters Date Type Department Care Team (Late st Contact Info) Description 03/22/2025 2:30 PM EST Telemedicine [facility] MEDICINE [address] [place] [address] Elizabeth Dunn MD [address] [place], [place] [phone] 06/07/2025 2:30 PM EST Office Visit [facility] OPTOMETRY [address] [place], [place] [phone] Dawson, Mulu, OD [address] [place] [address] documented as of this encounter Visit Diagnoses Diagnosis Acute right ankle pain Right foot pain Pain in soft tissues of limb documented in this encounter Additional Health Concerns Assessment Noted Time PHQ-9 Depression Total Score: 0 02/03/20 2:44 PM EDT documented as of this encounter Care Teams Mfg Assoc Relationship Specialty Start Date End Date Elizabeth Dunn MD [address] [place], [place] [phone] PCP - General Family Medicine 03/17/18 Kai Bowden, MATT [address] [place] [address] Registered Nurse Family Medicine 02/08/25 Manuela Melendez 02/08/25 Thao Barnhart Hris DeveloperPet Crematory Worker 02/07/23 documented as of this encounter
--- OUTSIDE RECORDS SUMMARY | 2025-03-04 16:21 | XMS_ITS | Clinical Summary ---
Author Organization [address] [facility] Address [address] [place] [address] Phone Care Team Providers Care Grey Roll Man Name Role Phone Elizabeth Dunn MD [...] sinusitis 03/18/2024 Microcytic anemia 03/18/2024 Benzodiazepine dependence ([facility] V24, [facility] V28) 03/18/2024 Blurring of visual image 03/18/2024 Chronic idiopathic constipation 03/18/2024 T2DM (type 2 diabetes mellitus) (CMS/[facility] V24, CM S/[facility] V28) 03/18/2024 Injury of kidney [...] topic Insurance MEDICAID - [place] Care Teams Grey Roll Man Relationship Specialty Start Date End Date Elizabeth Dunn MD [address] [phone] PCP - General Internal Medicine 02/12/24
--- OUTSIDE RECORDS SUMMARY | 2025-03-04 16:21 | XMS_ITS | Encounter Summary ---
Author Organization [facility] [employer] [facility] Address [address] [place] [address] 7t [place] [address] Care Team Providers Care Bottoming Room Supervisor Name Role Phone Elizabeth Dunn MD Primary Care Provide r Kai Bowden RN Unavailable [phone] Manuela Melendez Unavailable Reason for Visit * Reason Onset Date Comments Med Refill 12/04/2022 Encounter Details Date Type Department Care Team (Late st Contact Info) Description 12/04/2022 Telephone [facility] MEDICINE [address] [place] [address] Elizabeth Dunn MD 230 [place], [place] [phone] Med Refill Social History Tobacco Use Types [...] Description 03/22/2025 2:30 PM EST Telemedicine [facility] MEDICINE [address] [place] [address] Elizabeth Dunn MD 230 [place] [address] 06/07/2025 2:30 PM EST Office Visit [facility] OPTOMETRY [address] [place], [place] [phone] Mulu Osman, OD [address] [place] [address] documented as of this encounter Visit Diagnoses Not on filedocumented in this encounter Additional Health Concerns Assessment Noted Time PHQ-9 Depression Total Score: 0 08/03/19 23 3:13 PM EDT documented as of this encounter Care Teams Bottoming Room Supervisor Relationship Specialty Start Date End Date Elizabeth Dunn MD 230 [place] [address] PCP - General Family Medicine 03/17/18 Kai Bowden, RN [address] [place] [address] Registered Nurse Family Medicine 02/08/25 Manuela Melendez 02/08/25 Thao Barnhart Dehydration Plant OperatorSpindle Setter 02/07/23 documented as of this encounter
--- OUTSIDE RECORDS SUMMARY | 2025-03-04 16:21 | XMS_ITS | Encounter Summary ---
Author Organization [employer] Address [address] [facility] 7t [place] [address] Care Team Providers Care Dynamite Cartridge Crimper Name Role Phone Elizabeth Dunn MD Primary Care Provide r Kai Bowden RN Unavailable [phone] Manuela Melendez Unavailable Encounter Details Date Type Department Care Team (Late st Contact Info) Description 03/04/2025 Orders Only GENERIC EXTERNAL DATA DEPARTMENT Provider, [...] [facility] MED[facility] [address] [place], [place] [phone] Elizabeth Dunn MD 230 [place] [address] 06/07/2025 2:30 PM EST Office Visit [facility] OPTOMETRY [address] [place], [place] [phone] Mulu Osman OD 230 [place] [address] documented as of this encounter Procedures Procedure Name Priority Date/Time Associated Diagnosis Comments GLUCOSE, WHOLE BLOOD Routine 03/04/2025 3:57 PM EDT documented in this encounter Results * (ABNORMAL) Glucose, Whole Blood (03/04/2025 3:57 PM EDT) Glucose, Whole Blood 146(H) 60 - 115 mg/dL [facility] Comment:METER #: [id number] 03/04/2025 3:57 PM EDT 03/04/2025 4:01 PM EDT us Generic External Data Provider LAB BLOOD ORDERAB LES Final Result [facility] [address] [place] [phone] documented in this encounter Visit Diagnoses Not on filedocumented in this encounter Additional Health Concerns Assessment Noted Time PHQ-9 Depression Total Score: 0 02/03/20 2:44 PM EDT documented as of this encounter Care Teams Dynamite Cartridge Crimper Relationship Specialty Start Date End Date Elizabeth Dunn MD [address] [place] [address] PCP - General Family Medicine 03/17/18 Kai Bowden, MATT [address] [place] [phone] Registered Nurse Family Medicine 02/08/25 Manuela Melendez 02/08/25 Thao Barnhart Tractor Sweeper DriverSheltered Workshop Executive Director 02/07/23 documented as of this encounter
--- OUTSIDE RECORDS SUMMARY | 2025-03-04 16:21 | XMS_ITS | Encounter Summary ---
Author Organization [employer] Address [address] [facility] 7t h Floor [place] [phone] Care Team Providers Care Electro Mechanical Solar Technician Name Role Phone Elizabeth Dunn MD Primary Care Provide r Kai Bowden RN Unavailable [phone] Manuela Melendez Unavailable Encounter Details Date Type Department Care Team (Late st Contact Info) Description 03/26/2024 Orders Only [facility] MEDICINE [address] [place] [address] Elizabeth Dunn MD 230 [place] [address] Social History Tobacco Use Types Packs/Day Years [...] Description 03/22/2025 2:30 PM EST Telemedicine [facility] MEDICINE [address] [place] [address] Elizabeth Dunn MD [address] [place] [address] 06/07/2025 2:30 PM EST Office Visit [facility] OPTOMETRY [address] [place] [address] Dawson, Mulu, OD [address] [place] [address] documented as of this encounter Visit Diagnoses Not on filedocumented in this encounter Additional Health Concerns Assessment Noted Time PHQ-9 Depression Total Score: 0 08/20/19 24 2:32 PM EDT documented as of this encounter Care Teams Electro Mechanical Solar Technician Relationship Specialty Start Date End Date Elizabeth Dunn MD [address] [place] [address] PCP - General Family Medicine 03/17/18 Kai Bowden, MATT [address] [place] [address] Registered Nurse Family Medicine 02/08/25 Manuela Melendez 02/08/25 Thao Barnhart Computer Systems ArchitectClipper And Turner 02/07/23 documented as of this encounter
--- OUTSIDE RECORDS SUMMARY | 2025-03-04 16:21 | XMS_ITS | Encounter Summary ---
Author Organization [employer] Address [address] [facility] 7t h Floor [place] [phone] Care Team Providers Care Theatre Program Director Name Role Phone Elizabeth Dunn MD Primary Care Provide r Kai Bowden RN Unavailable [phone] Manuela Melendez Unavailable Reason for Visit * Reason Onset Date Comments Nurse Triage 02/28/2025 Encounter Details Date Type Department Care Team ([facility] st Contact Info) Description 02/28/2025 Telephone [facility] MEDICINE [address] [place] [address] Elizabeth Dunn MD [address] [place] [address] Nurse Triage Social History Tobacco Use Types [...] EDT TC placed to pt via S vacuum frame operator for triage. Pt reports 9/10 pain in [...] Advised pt to contact podiatry office at [phone]. Advised pt to come to [facility] for evaluation. Pt verbalized understanding and states they will try to come to [facility]. Protocol Used: Foot Pain (Adult) Protocol-Based [...] caller accepted this outcome. Contact pt at [phone] (tanzanian) documented in this encounter Plan of Treatment Upcoming Encounters Date Type Department Care Team (Late st Contact Info) Description 03/22/2025 2:30 PM EST Telemedicine [facility] MEDICINE [address] [place], [place] [phone] Elizabeth Dunn MD [address] [place] [address] 06/07/2025 2:30 PM EST Office Visit [facility] OPTOMETRY [address] [place] [phone] Mulu Osman, OD [address] [place] [address] documented as of this encounter Visit Diagnoses Not on filedocumented in this encounter Additional Health Concerns Assessment Noted Time PHQ-9 Depression Total Score: 0 02/03/20 2:44 PM EDT documented as of this encounter Care Teams Theatre Program Director Relationship Specialty Start Date End Date Elizabeth Dunn MD [address] [place] [address] PCP - General Family Medicine 03/17/18 Kai Bowden, MATT [address] [place] [address] Registered Nurse Family Medicine 02/08/25 Manuela Melendez 02/08/25 Thao Barnhart Splunk DeveloperSkein Yard Drier 02/07/23 documented as of this encounter
--- OUTSIDE RECORDS SUMMARY | 2025-03-04 16:21 | XMS_ITS | Encounter Summary ---
Author Organization [employer] Address [address] [place] [address] 7t h Floor [place] [phone] Care Team Providers Care County Administrator Name Role Phone Elizabeth Dunn MD Primary Care Provide r Kai Bowden RN Unavailable [phone] Manuela Melendez Unavailable Reason for Visit * Reason Onset Date Comments Prior Authorization 01/14/2025 PA: Augusto und Encounter Details Date Type Department Care Team ([facility] st Contact Info) Description 01/14/2025 Telephone [facility] MEDICINE [address] [place] [address] Elizabeth Dunn MD [address] [place], [place] [phone] Prior Authorization ( PA: Trish) Social History [...] back to discuss update Contact pt at [phone] (marshallese) * Telephone Encounter - Lo Clemens - 01/14/2025 11:55 AM EDT Tc from pt stating a PA is needed for Tirzepatide-Weight Management (Zepbound) 10 MG/0.5ML solutionauto-injector Contact pt at [phone] (marshallese) documented in this encounter Plan of Treatment Upcoming Encounters Date Type Department Care Team (Late st Contact Info) Description 03/22/2025 2:30 PM EST Telemedicine [facility] MEDICINE [address] [place] [address] Elizabeth Dunn MD [address] [place] [address] 06/07/2025 2:30 PM EST Office Visit [facility] OPTOMETRY [address] [place], [place] [phone] Mulu Osman, OD [address] [place] [address] documented as of this encounter Visit Diagnoses Not on filedocumented in this encounter Additional Health Concerns Assessment Noted Time PHQ-9 Depression Total Score: 0 08/20/19 24 2:32 PM EDT documented as of this encounter Care Teams County Administrator Relationship Specialty Start Date End Date Elizabeth Dunn MD [address] [place] [address] PCP - General Family Medicine 03/17/18 Kai Bowden, RN [address] [place] [address] Registered Nurse Family Medicine 02/08/25 Manuela Melendez 02/08/25 Thao Barnhart Building Inspection EngineerTufting Machine Operator Single Needle 02/07/23 documented as of this encounter
--- OUTSIDE RECORDS SUMMARY | 2025-03-04 16:21 | XMS_ITS ---
Author Organization [employer] Address [address] [facility] 7t [place] [address] Care Team Providers Care Senior Java J2Ee Developer Name Role Phone Elizabeth Dunn MD Primary Care Provide r Kai Bowden RN Unavailable [phone] Manuela Melendez Unavailable [facility] Complex Status:Outreach In Progress (Enrolling) Start date:02/08/2025 Enrollment reason:ADT Feed Overview ED- [place] [facility] [place] [facility] [place] [facility]. Case Team Name Relationship Phone Manuela Melendez(Responsible Staff) [phone] Continued Care and Services Coordination
--- OUTSIDE RECORDS SUMMARY | 2025-03-04 16:21 | XMS_ITS ---
Author Organization [employer] Address [address] [facility] 7t [place] [address] Care Team Providers Care Skating Rink Ice Maker Name Role Phone Elizabeth Dunn MD Primary Care Provide r Kai Bowden RN Unavailable [phone] Manuela Melendez Unavailable CM Complex Status:Outreach In Progress (Enrolling) Start date:02/08/2025 Enrollment reason:ADT Feed Overview ED- Pt went to [facility] on 02/07/25. Case Team Name Relationship Phone Kai Bowden RN(Responsible Staff) Registered [employer] nguyen [phone] Continued Care and Services Coordination
--- OUTSIDE RECORDS SUMMARY | 2025-03-04 16:21 | XMS_ITS | Encounter Summary ---
Author Organization [employer] Address [address] [facility] [address] 7t [place] [address] Care Team Providers Care Court Worker Name Role Phone Elizabeth Dunn MD Primary Care Provide r Kai Bowden RN Unavailable [phone] Manuela Melendez Unavailable Encounter Details Date [...] 03/22/2025 2:30 PM EST Telemedicine [facility] MEDICINE [address] [place] [address] Elizabeth Dunn MD 230 [place] [address] 06/07/2025 2:30 PM EST Office Visit [facility] OPTOMETRY [address] [place] [address] Dawson, Mulu, OD 230 [place] [address] documented as of this encounter Visit Diagnoses Not on filedocumented in this encounter Additional Health Concerns Assessment Noted Time PHQ-9 Depression Total Score: 0 02/03/20 25 2:44 PM EDT documented as of this encounter Care Teams Court Worker Relationship Specialty Start Date End Date Elizabeth Dunn MD [address] [place] [address] PCP - General Family Medicine 03/17/18 Kai Bowden, RN [address] [place] [address] Registered Nurse Family Medicine 02/08/25 Manuela Melendez 02/08/25 Thao Barnhart Electrical RepairerOccupational Therapy Assistant 02/07/23 documented as of this encounter
--- OUTSIDE RECORDS SUMMARY | 2025-03-04 16:21 | XMS_ITS | Clinical Summary ---
Author Organization [employer] Address [address] [facility] [address] [place] [address] Care Team Providers Care Law Firm Administrator Name Role Phone Elizabeth Dunn MD Primary Care Provide r Kai Bowden RN Unavailable [phone] Manuela Melendez Unavailable Allergies Active Allergy [...] until flare resolves 60 capsule 1 Active predniSONE (Deltasone) 10 MG tabletIndications :Right [...] day for 2 days. 30 tablet 2024 Colchicine 0.6 MG capsuleIndication s:Acute right [...] left foot, she is being manage by pain/video conference specialist (medications prescribed by specialist only) Chronic bilateral low back pain with left-sided sciatica 08/20/2023 Assessment & Plan (01/07/2024 2:12 PM EDT): I will increase gabapentin to 600mg TID and refer her back to pain management Pelvic pain 08/20/2023 Assessment & Plan (08/21/2023 12:20 PM EDT): STAFF ASSISTANT referral as per patient's request Preop examination [...] Acute nontraumatic kidney injury 01/17/2021 Benzodiazepine dependence ([facility]/HCC) 10/14/2017 Chronic idiopathic constipation 04/08/2017 Chronic left-sided [...] Diagnosed Date Resolved Date Continuous opioid dependence ([facility]/HCC) 04/08/2017 02/02/2025 Encounters Date Type Department Care Team Description 03/04/2025 Orders Only GENERIC EXTERNAL DATA DEPARTMENT Provider, Generic External Data 03/01/2025 Orders Only [facility] [address] [place] [phone] Elizabeth Dunn MD Acute right ankle pain; Right foot pain 03/01/[address] [address] Elizabeth Dunn MD Acute right ankle pain; Right foot pain 03/01/2025 Orders Only [facility] [address] [place] [phone] Elizabeth Dunn MD Right foot pain (Primary Dx); Acute right ankle pain 03/01/2025 Patient Outreach [facility] [address] [place], [place] [phone] Elizabeth Dunn MD Care Management (C3[facility]- Initial assessment/enrollment /LVM) 03/01/2025 Telephone [facility] [address] [place] [address] [phone] Elizabeth Dunn MD 02/28/2025 2:00 PM EDT Office Visit [facility] [address] [place] [address] [phone] Elizabeth Dunn MD Acute right ankle pain; Right foot pain 02/28/2025 Travel 02/28/2025 Telephone [facility] [address] [place] [address] [phone] Elizabeth Dunn MD Nurse Triage 02/23/[address] [address] Elizabeth Dunn MD ER Follow-up 02/22/2025 Orders Only GENERIC EXTERNAL DATA DEPARTMENT Provider, Generic External Data 02/21/2025 Results Follow-Up [address] [address] Elizabeth Dunn MD Uric acid 02/15/2025 Orders Only [address] [address] Elizabeth Dunn MD 2025 3:15 PM EDT Office Visit [address] [address] Elizabeth Dunn MD Polyarthralgia (Primary Dx); Right foot pain; Left foot pain; Type 2 diabetes mellitus without complication, without long-term current use of insulin (HCC); Fibromyalgia 2025 Travel 02/11/2025 Orders Only [facility] External Provider, [facility] 02/08/[address] [address] Elizabeth Dunn MD ER Follow-up 02/08/2025 Patient Outreach [address] [address] Elizabeth Dunn MD Care Coordination ([facility]/JB Melendez, initial assessment scheduled ) 02/08/2025 Patient Outreach [address] [address] Elizabeth Dunn MD Care Coordination ([facility]/JB Melendez, Chart review ) 02/08/2025 Patient Outreach [facility] [address] [place] [address] [phone] Elizabeth Dunn MD Care Coordination ([facility]- chart review) 02/08/2025 Patient Outreach [address] [address] Elizabeth Dunn MD 02/07/2025 Orders Only GENERIC EXTERNAL DATA DEPARTMENT Provider, Generic External Data 02/02/2025 3:00 PM EDT Telemedicine [facility] [address] [place] [phone] Elizabeth Dunn MD Diabetic mononeuropathy simplex ([facility]/HCC) (Primary Dx); 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order, without psychotic features (CMS/HCC); Mild intermittent asthma, unspecified whether complicated; Continuous opioid dependence (CMS/[facility]); Fibromyalgia; Dietary counseling; Exercise counseling; Type 2 diabetes mellitus without complication, without long-term current use of insulin (CMS/HCC) 02/02/2025 Travel 02/01/[address] [address] Elizabeth Dunn MD 01/26/2025 3:30 PM EDT Office Visit [address] [address] Elizabeth Dunn MD Type 2 diabetes mellitus without complication, without long-term current use of insulin ([facility]) (Primary Dx); Fibromyalgia; Acute pain of right shoulder; Class 1 obesity due to excess calories with serious comorbidity and body mass index (BMI) of 34.0 to 34.9 in adult 01/26/2025 Refill [facility] [address] [place] [phone] Elizabeth Dunn MD Type 2 diabetes mellitus without complication, without long-term current use of insulin ([facility]/HCC) 01/26/2025 Travel 01/25/2025 Telephone [facility] [address] [place] [address] Elizabeth Dunn MD chart prep 01/21/2025 Travel 01/20/2025 Telephone [facility] [address] [place] [address] [phone] Elizabeth Dunn MD appt 01/15/2025 Refill [facility] [address] [place] [address] [phone] Vanna Chen MD Microcytic anemia 01/14/[address] [phone] Elizabeth Dunn MD Prior Authorization ( PA: Trish) 01/12/2025 Orders Only [facility] [address] [place] [address] Elizabeth Dunn MD 01/12/2025 Refill [facility] [address] [place] [address] Elizabeth Dunn MD Class 2 severe obesity with serious comorbidity and body mass index (BMI) of 35.0 to 35.9 in adult, unspecified obesity type (CMS/HCC) 01/11/2025 Refill [facility] [address] [place] [address] Elizabeth Dunn MD Chronic midline low back pain with left-sided sciatica 01/04/2025 10:20 AM EDT Office Visit [facility] [address] [place] [address] Dawson, Mulu, OD Type 2 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 ([facility]/HCC) (Primary Dx) 01/04/2025 Travel 12/19/2024 Refill [facility] [address] [place] [address] Elizabeth Dunn MD Chronic bilateral low back pain with left-sided sciatica 12/15/2024 Orders Only [facility] [address] [place] [address] Elizabeth Dunn MD Class 2 severe obesity with serious comorbidity and body mass index (BMI) of 35.0 to 35.9 in adult, unspecified obesity type (CMS/HCC) (Primary Dx) 12/15/2024 Telephone [facility] [address] [place] [address] Elizabeth Dunn MD Med Refill 12/15/2024 Refill [facility] [address] [place] [address] Elizabeth Dunn MD 12/08/2024 Refill [facility] [address] [place] [address] Elizabeth Dunn MD Chronic bilateral low back pain with left-sided sciatica 12/07/2024 Telephone [facility] [address] [place] [address] Elizabeth Dunn MD No Show 12/07/2024 Telephone [facility] [address] [place], [place] [phone] Elizabeth Dunn MD Chart Prep 12/06/2024 Refill [facility] [address] [place], [place] [phone] Elizabeth Dunn MD Chronic midline low back [...] Info) Description 03/22/2025 2:30 PM EST Telemedicine [facility] [address] [place] [address] Elizabeth Dunn MD [address] [place] [address] 06/07/2025 2:30 PM EST Office Visit [facility] [address] [place] [address] Dawson, Mulu, OD [address] [place] [address] Health Maintenance Due Date Last Done Comments [...] 02/02/2026 02/02/2025 Diabetes: Foot Exam 2026 2025, Mammogram 02/15/2026 02/15/2025, 05/2023, 02/10/2024, Additional history exists Tobacco Screening 02/28/2026 [...] WHOLE BLOOD Routine 03/04/2025 3:57 PM EDT XR CHEST 1 VIEW Routine 02/22/2025 2:39 [...] complication, without long-term current use of insulin ([facility]/HCC) POCT GLYCATED HEMOGLOBIN, TOTAL Routine 01/26/2025 3:42 [...] Relevant to Health Maintenance Results * (ABNORMAL) Glucose, Whole Blood (03/04/2025 3:57 PM EDT) Glucose, Whole Blood 146(H) 60 - 115 mg/dL [facility] Comment:METER #: [id number] 03/04/2025 3:57 PM EDT 03/04/2025 4:01 PM EDT us Generic External Data Provider LAB BLOOD ORDERAB LES Final Result [facility] [address] [place] [phone] * XR Chest 1 View (02/22/2025 2:39 PM EDT) Anatomical Region Laterality Modality Chest Radiographic Delilah ging 02/22/2025 2:39 PM EDT Narrative 02/22/2025 2:56 PM EDT [address] [address] XRay Report Signed Patient: Bailon Jack,Lelo R MR# : [id number] : 1960 Acct:[id number] Age/Sex: 65 / F ADM Date: 02/22/25 Loc: HO.ED Attending Dr: Ordering Physician: Cortes Hammer MD Date of Service: 02/22/25 Procedure(s): XR chest 1V Accession Number(s): [id number] cc: Elizabeth Dunn MD; Cortes Hammer MD [...] Johnson MD Signed By: <Electronically signed by Koyr Johnson MD in OV> 02/22/25 1453 DD/ 1439 TD/TT: 02/22/25 1445 Industrial Spray Painter: Procedure Note Donotuseinterpreter, Image - 02/22/[address] [address] XRay Report Signed Patient: Lelo Plata RMR# : [id number] : 1960cct:[id number] Age/Sex: 65 / FADM Date: 02/22/25 Loc: HO.ED Attending Dr: Ordering Physician: Cortes Hammer MD Date of Service: 02/22/25 Procedure(s): XR chest 1V Accession Number(s): [id number] cc: Elizabeth Dunn MD; Cortes Hammer MD [...] 02/22/25 1453 DD/ 1439 TD/TT: 02/22/25 1445 Industrial Spray Painter: [facility] External Provider IMG XR PROCEDURES Final Result * High Sensitivity Troponin I (02/22/2025 2:22 PM EDT) Pathologist [facility] TROPONIN I HIGH SENSITIVITY <2.7 <3.5 - 17.0 ng/L [facility] Comment:The [place] high sens itivity Troponin-I results should beused in conjunction with other diagnostic information suchas ECG, clinical observations and information, and patientsymptoms to aid in the diagnosis of MD. 02/22/2025 2:22 PM EDT 02/22/2025 2:25 PM EDT Generic External Data Provider LAB BLOOD ORDERAB LES Final Result [facility] [address] [place] [address] [phone] * (ABNORMAL) Basic Metabolic Panel (02/22/2025 2:22 PM EDT) [facility] Sodium 139 135 - 145 mmol/L [facility] Potassium 4.0 3.3 - 5.1 mmol/L [facility] Comment:Slight Hemolysis.Int erpret result with caution. Chloride 106 96 - 108 mmol/L [facility] Carbon Dioxide 22 22 - 29 mmol/L [facility] Anion Gap 15 12 - 20 [facility] Urea Nitrogen (BUN) 20(H) 9 - 16 mg/dL [facility] Creatinine, Serum 0.85 0.5 - 1.4 mg/dL [facility] Creatinine Clr Calc Pharmacy 76.0 [facility] Comment:Provided height and weight: 165.1 cm,92.2 kg.eGFR (calculated from the MDRD study equation) and eCrCl(calculated from the Cockcroft-Gault equation) are based ondifferent parameters and may not yield comparable results.If eCrCl result is absurd, please check patient'sheight/weight. Estimated Glomerular Filt Rate >60 [facility] Comment:Chronic Kidney Disea se: Estimated GFR < 60 mL/min/1.90w8Kpaoni Kidney Disease: Estimated GFR < 15 mL/min/1.73m2 Glucose 60 60 - 115 mg/dL [facility] Calcium 8.6 8.4 - 10.2 mg/dL [facility] 02/22/2025 2:22 PM EDT 02/22/2025 2:25 PM EDT us Generic External Data Provider LAB BLOOD ORDERAB LES Final Result [facility] [address] [place] [phone] * (ABNORMAL) CBC auto differential (02/22/2025 1:22 PM EDT) Only the most recent of2 resultswithin the time period is included. White Blood Count 11.8(H) 4.8 - 10.8 X10*3/uL [facility] Red Blood Count 4.72 4.20 - 5.50 X10*6/uL [facility] Hemoglobin 11.5(L) 12.0 - 16.0 g/dl [facility] Hematocrit 35.2(L) 37.0 - 47.0 % [facility] Mean Corpuscular Volume 74.6(L) 80.0 - 98.0 fL [facility] Mean Corpuscular Hemoglobin 24.4(L) 27.0 - 33.0 pg [facility] Mean Corpuscular HGB Conc 32.7 31.0 - 35.0 g/dl [facility] Red Cell Distribution Width 19.5(H) 11.0 - 16.0 % [facility] Platelet Count 222 160 - 400 X10*3/uL [facility] Mean Platelet Volume 11.7 9.4 - 12.3 fL [facility] Neutrophils Percent Auto 67.7 45 - 73 % [facility] Imm Gran Pct Auto 1.1(H) 0.0 - 0.4 % [facility] Lymphocytes Percent Auto 21.6 20 - 40 % [facility] Monocytes Percent Auto 8.5 2 - 11 % [facility] Eosinophils Percent Auto 0.8 0 - 4 % [facility] Basophils Percent Auto 0.3 0 - 2 % [facility] NRBC Pct Auto 0.0 0.0 - 0.2 /100WBC [facility] Neutrophils Absolute Auto 8.0 2.0 - 8.3 x10*3/uL [facility] Imm Gran Abs Auto 0.13(H) 0.00 - 0.03 X10*3/uL [facility] Lymphocytes Absolute Auto 2.6 1.2 - 4.9 X10*3/uL [facility] Monocytes Absolute Auto 1.0 0.1 - 1.2 X10*3/uL [facility] Eosinophils Absolute Auto 0.1 0.0 - 0.4 X10*3/uL [facility] Basophils Absolute Auto 0.0 0.0 - 0.2 X10*3/uL [facility] NRBC Abs Auto 0.000 0.0 - 0.012 X10*3/uL [facility] 02/22/2025 1:22 PM EDT 02/22/2025 1:25 PM EDT us Generic External Data Provider LAB BLOOD ORDERAB LES Final Result Performing Organization Address [facility]/ZIP Co de Phone Number [facility] [address] [place] [phone] * Prothrombin Time-INR (02/22/2025 1:22 PM EDT) Prothrombin Time 11.0 10.9 - 12.4 SEC [facility] INTERNATIONAL NORM RATIO 1.0 0.9 - 1.1 [facility] Comment:INTERNATIONAL NORMAL IZED RATIO (INR) REFERENCE [...] LES Final Result Performing Organization Address [facility] Co de Phone Number [facility] [address] [place] [phone] * (ABNORMAL) Uric acid (02/18/2025 1:14 PM EDT) Uric Acid 6.3(H) 2.4 - 5.7 mg/dL [facility] Blood Venous blood specimen / Unknown 02/18/2025 1:14 PM EDT 02/18/2025 4:31 PM EDT us Elizabeth Goncalves MD LAB BLOOD ORDERABLES Final Result Performing Organization Address [facility]/ZIP Co de Phone Number [facility] [address] [place] [phone] * BI Mammogram Screening Tomosynthesis Bilateral (02/15/2025 9:05 AM EDT) Anatomical Region Laterality Modality Breast Bilateral Mammography 02/15/2025 9:05 AM EDT Narrative 02/22/2025 9:47 AM EDT [facility] [address] [place], [place] [address] Mammography Report Signed Patient: Lelo Plata MR# : [id number] : 1960 Acct:[id number] Age/Sex: 65 / F ADM Date: 02/15/25 Loc: HO.MAMMO Attending Dr: Elizabeth Goncalves MD Ordering Physician: Elizabeth Dunn MD Results: 1Negative Date of Service: 02/15/25 Follow Up: 1 Year From [facility] ina Mammogram Procedure(s): MM tomosynthesis screening BI Accession Number(s): [id number] cc: Elizabeth Dunn MD Reason For Exam: [...] signed by Trinity Dawn DO in OV> 02/22/25 0944 DD/ 4 TD/TT: 02/15/25927 Industrial Spray Painter: Procedure Note Donotuseinterpreter, Image - 02/22/20[facility] [address] [place] [address] Mammography Report Signed Patient: Lelo Plata RMR# : [id number] : 2Acct:[id number] Age/Sex: 65 / FADM Date: 02/15/25 Loc: HO.MAMMO Attending Dr: Elizabeth Goncalves MD Ordering Physician: Elizabeth Dunn MDResults: 1Negative Date of Service: 02/15/25Follow Up: 1 Year From Orig inal Mammogram Procedure(s): MM tomosynthesis screening BI Accession Number(s): [id number] cc: Elizabeth Dunn MD Reason For Exam: [...] in OV> 02/22/2544 DD/ 4 TD/TT: 02/15/25927 Industrial Spray Painter: us Elizabeth Goncalves MD IMG BI PROCEDURES Fin al Result * XR Foot 3+ Views Right (02/12/2025 1:30 AM EDT) Anatomical Region Laterality Modality Lower Extremities, Foot Right Radiogra phic Imaging 02/12/2025 1:30 AM EDT Narrative 02/12/2025 1:32 AM EDT [address] [address] XRay Report Signed Patient: Lelo Plata MR# : [id number] : 1960 Acct:[id number] Age/Sex: 64 / F ADM Date: 02/11/25 Loc: HO.ED Attending Dr: Ordering Physician: Perla Turner Date of Service: 02/12/25 Procedure(s): XR foot RT min 3V Accession Number(s): [id number] cc: Elizabeth Dunn MD; Perla Turner Reason [...] in OV> 02/12/25131 DD/ 9 TD/TT: 02/12/25129 Industrial Spray Painter: Procedure Note Donotuseinterpreter, Image - 02/12/[address] [address] XRay Report Signed Patient: Lelo Plata RMR# : [id number] : 1960cct:[id number] Age/Sex: 64 / FADM Date: 02/11/25 Loc: HO.ED Attending Dr: Ordering Physician: Perla Turner Date of Service: 02/12/25 Procedure(s): XR foot RT min 3V Accession Number(s): [id number] cc: Elizabeth Dunn MD; Perla Turner Reason [...] in OV> 02/12/25131 DD/ 9 TD/TT: 02/12/25129 Industrial Spray Painter: [facility] External Provider IMG XR PROCEDURES Edited Result - Final * CT Abdomen Pelvis w/ Contrast (02/11/2025 11:22 PM EDT) Anatomical Region Laterality Modality Body, Pelvis, Abdomen Computed T omography 02/11/2025 11:2 2 PM EDT Narrative 02/11/2025 11:24 PM EDT [place] [address] [address] Scan Report Signed Patient: Lelo Plata MR# : [id number] : 1960 Acct:[id number] Age/Sex: 64 / F ADM Date: 02/11/25 Loc: HO.ED Attending Dr: Ordering Physician: Perla Turner Date of Service: 02/11/25 Procedure(s): CT abdomen pelvis w IV con Accession Number(s): [id number] cc: Elizabeth Dunn MD; Perla Turner Report Number: [id number]: Total DLP = 0.00 mGy-cm Reason for [...] in OV> 02/11/252322 DD/ 21 TD/TT: 02/11/252321 Industrial Spray Painter: Procedure Note Donotuseinterpreter, Image - 02/11/[address] [place] [address] [address] Scan Report Signed Patient: Lelo Plata RMR# : [id number] : 1960cct:[id number] Age/Sex: 64 / FADM Date: 02/11/25 Loc: HO.ED Attending Dr: Ordering Physician: Perla Turner Date of Service: 02/11/25 Procedure(s): CT abdomen pelvis w IV con Accession Number(s): [id number] cc: Elizabeth Dunn MD; Perla Turner Report Number: [id number]: Total DLP = 0.00 mGy-cm Reason for [...] in OV> 02/11/252322 DD/ 21 TD/TT: 02/11/252321 Industrial Spray Painter: [facility] External Provider IMG CT PROCEDURES Edited Result - Final * Urinalysis, Complete, with Reflex to Culture (02/11/2025 10:50 PM EDT) Color Urine Yellow [facility] Appearance Urine Clear [facility] PH 5.0 5.0 - 9.0 [facility] Glucose Urine UA Negative Negative mg/dL [facility] Urine Blood Negative Negative [facility] Specific [place] - Urine 1.020 1.005 - 1.025 [facility] Urine Protein Negative Neg-Trace mg/dL [facility] Urine Ketones Negative Negative mg/dL [facility] Nitrite Urine Negative Negative [facility] Leukocyte Esterase Urine Negative Negative [facility] RBC Urine 0-2 0 - 2 /HPF [facility] Urine WBC 0-5 0 - 5 /HPF [facility] Urine Squamous Epithelial Cell 0-2 0 - 2 /HPF [facility] Urine Bacteria None Seen None Seen [facility] Hyaline Casts, Urine 0-2 0 - 2 /LPF [facility] 02/11/2025 10:5 0 PM EDT 02/11/2025 10:54 PM EDT Narrative [facility] - 02/11/2025 11:05 PM EDT 2248Urine, Clean Catch Generic External Data Provider LAB URINE ORDERAB LES Final Result [facility] [address] [place] [phone] * XR KUB and Upright 2 Views (02/11/2025 7:34 PM EDT) Anatomical Region Laterality Modality Radiographic Delilah ging 02/11/2025 7:34 PM EDT Narrative 02/11/2025 7:35 PM EDT [address] [address] XRay Report Signed Patient: Lelo Plata MR# : [id number] : 1960 Acct:[id number] Age/Sex: 64 / F ADM Date: 02/11/25 Loc: HO.ED Attending Dr: Ordering Physician: Perla Turner Date of Service: 02/11/25 Procedure(s): XR KUB Accession Number(s): [id number] cc: Elizabeth Dunn MD; Perla Turner Reason for Exam: constipation CLINICAL HISTORY: constipation Abdominal radiographs Comparison: CT/REG/DC/SR - CT ABDOMEN PELVIS W IV CON [...] in OV> 02/11/251933 DD/ 33 TD/TT: 02/11/251933 Industrial Spray Painter: Procedure Note Donotuseinterpreter, Image - 02/11/[address] [facility] [address] XRay Report Signed Patient: Lelo Plata RMR# : [id number] : 1960cct:[id number] Age/Sex: 64 / FADM Date: 02/11/25 Loc: HO.ED Attending Dr: Ordering Physician: Perla Turner Date of Service: 02/11/25 Procedure(s): XR KUB Accession Number(s): [id number] cc: Elizabeth Dunn MD; Perla Turner Reason for Exam: constipation CLINICAL HISTORY: constipation Abdominal radiographs Comparison: CT/REG/DC/SR - CT ABDOMEN PELVIS W IV CON [...] in OV> 02/11/251933 DD/ 33 TD/TT: 02/11/251933 Industrial Spray Painter: us [facility] External Provider IMG XR PROCEDURES Final Result * VASC US Lower Extremity Venous Duplex Bilateral (02/07/2025 9:39 PM EDT) 02/07/2025 9:39 PM EDT Narrative [facility] - 02/07/2025 9:41 PM EDT [address] [address] Ultrasound Report Signed Patient: Lelo Plata R MR# : [id number] : 1960 Acct:[id number] Age/Sex: 64 / F ADM Date: 02/07/25 Loc: HO.ED Attending Dr: Ordering Physician: Kaitlynn Wang Date of Service: 02/07/25 Procedure(s): US venous duplex LE BI Accession Number(s): [id number] cc: Elizabeth Dunn MD; Kaitlynn Wang Reason [...] in OV> 02/07/252139 DD/ 38 TD/TT: 02/07/252138 Industrial Spray Painter: Procedure Note Donotuseinterpreter, Image - 02/07/2025 [place] [address] Ultrasound Report Signed Patient: Lelo Plata RMR# : [id number] : 1960cct:[id number] Age/Sex: 64 / FADM Date: 02/07/25 Loc: .ED Attending Dr: Ordering Physician: Kaitlynn Wang Date of Service: 02/07/25 Procedure(s): US venous duplex LE BI Accession Number(s): [id number] cc: Elizabeth Dunn MD; Kaitlynn Wang Reason [...] in OV> 02/07/252139 DD/ 38 TD/TT: 02/07/252138 Industrial Spray Painter: [facility] External Provider CV VASC ULAR PROCEDURES Final Result Performing Organization Address City/[facility]/ZIP Co de Phone Number [facility] [address] [place] [address] * NT-proBNP (02/07/2025 8:52 PM EDT) NT-proBNP 36.0 <300 pg/mL [facility] Comment:Reference Range:Age Group (years) NT-proBNP (pg/ml) InterpretationAll <300 Negative: HF unlikelyFor patients presenting to the ED with clinical suspicion ofnew onset or worsening HF, see below:18 to <50 >299.9 to <450.0 Grayzone: [id number] to 75 >299.9 to <900.0 other causes of>75 >299.9 to <1800.0 NT-proBNP [id number] to <50 >449.9 Positive: HF [id number] >899.9>75 >1799.9Note: Elevated NT-proBNP levels should be interpreted inthe context of other clinical information. 02/07/2025 8:52 PM EDT 02/07/2025 8:57 PM EDT Generic External Data Provider LAB BLOOD ORDERAB LES Final Result Performing Organization Address City/[facility]/ZIP Co de Phone Number [facility] [address] [place] [phone] * (ABNORMAL) Sed Rate by Modified Caleren (02/07/2025 8:52 PM EDT) Erythrocyte Sedimentation Rate 25(H) 0 - 20 MM/HR [facility] Comment:Patients with polycy themia and many hemoglobin abnormalitiesmay have depressed sed rates whereas patients with anemiamay have elevated sed rates. 02/07/2025 8:52 PM EDT 02/07/2025 8:57 PM EDT Generic External Data Provider LAB BLOOD ORDERAB LES Final Result Performing Organization Address [facility] de Phone Number [facility] [address] [place] [phone] * (ABNORMAL) C-reactive Protein (02/07/2025 8:52 PM EDT) Pathologist [facility] C Reactive Protein 1.09(H) < or = 0.50 mg/dL [facility] 02/07/2025 8:52 PM EDT 02/07/2025 8:57 PM EDT Generic External Data Provider LAB BLOOD ORDERAB LES Final Result Performing Organization Address [facility] de Phone Number [facility] [address] [place] [phone] * Magnesium (02/07/2025 8:52 PM EDT) Pathologist [facility] Magnesium 2.1 1.6 - 2.6 mg/dL [facility] 02/07/2025 8:52 PM EDT 02/07/2025 8:57 PM EDT Generic External Data Provider LAB BLOOD ORDERAB LES Final Result Performing Organization Address [facility] de Phone Number [facility] [address] [place] [address] [phone] * Comprehensive Metabolic Panel (02/07/2025 8:52 PM EDT) Pathologist [facility] Sodium 143 135 - 145 mmol/L [facility] Potassium 4.5 3.3 - 5.1 mmol/L [facility] Chloride 103 96 - 108 mmol/L [facility] Carbon Dioxide 28 22 - 29 mmol/L [facility] Anion Gap 17 12 - 20 [facility] Urea Nitrogen (BUN) 16 9 - 16 mg/dL [facility] Creatinine, Serum 1.06 0.5 - 1.4 mg/dL [facility] Creatinine Clr Calc Pharmacy 62.1 [facility] Comment:Provided height and weight: 165.1 cm,93.44 kg.eGFR (calculated from the MDRD study equation) and eCrCl(calculated from the Cockcroft-Gault equation) are based ondifferent parameters and may not yield comparable results.If eCrCl result is absurd, please check patient'sheight/weight. Estimated Glomerular Filt Rate 53 [facility] Comment:Chronic Kidney Disea se: Estimated GFR < 60 mL/min/1.77k2Dymlsp Kidney Disease: Estimated GFR < 15 mL/min/1.73m2 Glucose 77 60 - 115 mg/dL [facility] Calcium 9.2 8.4 - 10.2 mg/dL [facility] Bilirubin, Total 0.2 0.0 - 1.0 mg/dL [facility] Aspartate Amino Transferase 19 5 - 31 U/L [facility] Alanine Aminotransferase 8 0 - 31 U/L [facility] Total Protein 7.1 6.5 - 8.0 g/dL [facility] Albumin Level 4.2 3.5 - 5.0 g/dL [facility] Alkaline Phosphatase 72 39 - 117 U/L [facility] 02/07/2025 8:52 PM EDT 02/07/2025 8:57 PM EDT us Generic External Data Provider LAB BLOOD ORDERAB LES Final Result [facility] [address] [place], [place] [phone] * POCT Hgb A1c (01/26/2025 3:42 [...] 8:25 AM EDT) Creatinine, Urine 223.33 mg/dL [facility] Microalbumin Urine 9.0 mg/L [facility] Microalbum Creatinine Ratio Ur 4.0 <30 ug/mg cr [facility] Comment:Albumin/Creatinine R atio Reference Ranges: Normal: < 30 ug/mg creatinine Microalbuminuria: 30 - 300 ug/mg creatinineClinical Albuminuria: > 300 ug/mg creatinine Urine (Urine, Random) 01/05/2024 8:25 AM EDT 01/05/2024 11:48 AM EDT Elizabeth Goncalves MD LAB URINE ORDERABLES Final Result [facility] [address] [place] [phone] * (ABNORMAL) Lipid Panel with Reflex to Direct LDL (01/05/2024 8:22 AM EDT) Triglycerides 180(H) <150 mg/dL [facility] Comment:Desirable Triglyceri de: less than 150 mg/dLBorderline High Triglyceride 150-199 mg/dLHigh Triglyceride: 200-499 mg/dLVery High Triglyceride: greater than or equal to 5OO mg/dL Cholesterol 240(H) <200 mg/dL [facility] Comment:Desirable Cholestero l: less than 200 mg/dLBorderline High Cholesterol: 200-239 mg/dLHigh Cholesterol: greater than 239 mg/dL LDL Cholesterol Calculated 138(H) <100 mg/dL [facility] Comment:Desirable LDL: less than 100 mg/dLNear Optimal/Above Optimal LDL: 110- 129 mg/dLBorderline High LDL: 130-159 mg/dLHigh LDL: 160-189 mg/dLVery High LDL: greater than or equal to 190 mg/dL HDL Cholesterol 66 >40 mg/dL [facility] Comment:Desirable HDL: great er than 40 mg/dL Note: This HDL assay may give artificially low results in patients with liver disease. Blood 01/05/2024 8:22 AM EDT 01/05/2024 11:52 AM EDT Elizabeth Goncalves MD LAB BLOOD ORDERABLES Final Result [facility] [address] [place] [address] [phone] * Hm Colonoscopy (12/10/2022) Historical Provider HEALTH MAINTENANCE Final Result * HEPATITIS C AB W/REFL TO HCV RNA, QN, PCR (10/23/2020 10:08 AM EDT) HEPATITIS C ANTIBODY NON-REACT JOSE NON-REACT JOSE [facility] INDEX 0.01 <1.00 [facility] Comment: HCV antibody was non-reactive. There is no laboratory evidence of HCV infection. In most cases, no further action is required. However, if recent HCV exposure is suspected, a test for HCV RNA (test code 72717) is suggested. For additional information please refer to http://education.Zapper/faq/BOI47b2 (This link is being provided for informational/ educational purposes only.) 10/23/2020 10:0 8 AM EDT Elizabeth Goncalves MD HISTORICAL/NON ORDERA BLE LABS Final Result Performing Organization Address [facility] de Phone Number [facility] [address] * HIV 1/2 ANTIGEN/ANTIBODY,FOURTH GENERATION W/RFL (10/23/2020 10:08 AM EDT) HIV-1/2 ANTIGEN AND ANTIBODIES, 4TH GENERATION W/ REFLEX NON-REACT JOSE NON-REACT JOSE [facility] Comment: HIV-1 antigen [...] purpose. For additional information please refer to http://education.norin.tv.BeMyEye/faq/GEL800 (This link is being provided for informational/ educational purposes only.) The performance of this assay has not been clinically validated in patients less than 2 years old. 10/23/2020 10:0 8 AM EDT Elizabeth Goncalves MD LAB BLOOD ORDERABLES Final Result Performing Organization Address [facility] de Phone Number [facility] [address] from Last 3 Months or Most Recently Relevant to Health Maintenance Insurance C3 Care Teams Law Firm Administrator Relationship Specialty Start Date End Date Elizabeth Dunn MD [address] [place] [address] PCP - General Family Medicine 03/17/18 Kai Bowden, MATT [address] [place] [phone] Registered Nurse Family Medicine 02/08/25 Manuela Melendez 02/08/25 Thao Barnhart Port CaptainMattress Renovator 02/07/23
--- OUTSIDE RECORDS SUMMARY | 2025-03-04 16:21 | XMS_ITS | Encounter Summary ---
Author Organization [employer] Address [address] [facility] 7t [place] [address] Care Team Providers Care Radiation Officer Name Role Phone Elizabeth Dunn MD Primary Care Provide r Kai Bowden RN Unavailable [phone] Manuela Melendez Unavailable Reason for Visit * Reason Comments Care Management C3CM- Initial assess ment/enrollment/LVM Encounter Details Date Type Department Care Team ([facility] st Contact Info) Description 03/01/2025 Patient Outreach [facility]EDS [address] [place] [address] Elizabeth Dunn MD [address] [place] [address] Care Management (C3CM- Initial assessment/enrollmen t/LVM) Social [...] time, left message requesting call back at [phone] or CHW [phone]. CHW will attempt contact with patient to reschedule missed initial assessment. documented in this encounter Plan of Treatment Upcoming Encounters Date Type Department Care Team (Late st Contact Info) Description 03/22/2025 2:30 PM EST Telemedicine [facility] MEDICINE [address] [place], [place] [phone] Elizabeth Dunn MD [address] [place], [place] [phone] 06/07/2025 2:30 PM EST Office Visit [facility] OPTOMETRY [address] [place], [place] [phone] Dawson Mulu, OD [address] [place] [address] documented as of this encounter Visit Diagnoses Not on filedocumented in this encounter Additional Health Concerns Assessment Noted Time PHQ-9 Depression Total Score: 0 02/03/20 2:44 PM EDT documented as of this encounter Care Teams Radiation Officer Relationship Specialty Start Date End Date Elizabeth Dunn MD [address] [place] [address] PCP - General Family Medicine 03/17/18 Kai Bowden, MATT [address] [place] [address] Registered Nurse Family Medicine 02/08/25 Manuela Melendez 02/08/25 Thao Barnhart Principal Systems EngineerSeaming Machine Operator 02/07/23 documented as of this encounter
--- OUTSIDE RECORDS SUMMARY | 2025-03-04 16:21 | XMS_ITS | Encounter Summary ---
Author Organization [employer] Address 75 [facility] 7t [place] [address] Care Team Providers Care Mash Filter Cloth Changer Name Role Phone Elizabeth Dunn MD Primary Care Provide r Kai Bowden RN Unavailable [phone] Manuela Melendez Unavailable Reason for Referral * Imaging (Routine) - Authorized Specialty Diagnoses / Procedures Referred By Contac t Referred To Contact Radiology Diagnoses Acute right ankle pain Procedures Mr Ankle w/o Contrast Right Elizabeth Dunn MD [address] [place] [address] Phone: tel: fax: [address] Phone: tel: fax: Referral ID Status Reason Start Date Expiration Date V isits Requested Visits Authorized [id number] Authorized 03/01/2025 03/01/2026 1 1 * Imaging (Routine) - Authorized Specialty Diagnoses / Procedures Referred By Contac t Referred To Contact Radiology Diagnoses Right foot pain Procedures MR Foot w/o Contrast Right Elizabeth Dunn MD [address] [place] [address] Phone: tel: fax: [address] Phone: tel: fax: Referral ID Status Reason Start Date Expiration Date V isits Requested Visits Authorized [id number] Authorized 03/01/2025 03/01/2026 1 1 Encounter Details Date Type Department Care Team (Late st Contact Info) Description 03/01/2025 Orders Only [facility] MEDICINE [address] [place] [address] Elizabeth Dunn MD [address] [place] [address] Right foot pain (Primary Dx); Acute right [...] EST Telemedicine [facility] MEDICINE [address] [place] [address] Elizabeth Dunn MD [address] [place] [address] 06/07/2025 2:30 PM EST Office Visit [facility] OPTOMETRY [address] [place] [address] Mulu Osman, OD [address] [place] [address] Scheduled Orders Name Type Priority Associated Diagnoses [...] documented as of this encounter Care Teams Mash Filter Cloth Changer Relationship Specialty Start Date End Date Elizabeth Dunn MD [address] [place] [address] PCP - General Family Medicine 03/17/18 Kai Bowden RN [address] [place] [address] Registered Nurse Family Medicine 02/08/25 Manuela Melendez 02/08/25 Thao Barnhart Hot Box OperatorOffice Machines Sales Representative 02/07/23 documented as of this encounter
--- OUTSIDE RECORDS SUMMARY | 2025-03-04 16:21 | XMS_ITS | Encounter Summary ---
Author Organization [employer] Address [address] [facility] 7t h Floor [place] [phone] Care Team Providers Care Cable Mechanic Name Role Phone Elizabeth Dunn MD Primary Care Provide r Kai Bowden RN Unavailable [phone] Manuela Melendez Unavailable Encounter Details Date Type Department Care Team (Late st Contact Info) Description 01/12/2025 Orders Only [facility] MEDICINE [address] [place] [address] Elizabeth Dunn MD [address] [place] [address] Social History Tobacco Use Types Packs/Day Years [...] Info) Description 03/22/2025 2:30 PM EST Telemedicine [facility] MEDICINE [address] [place] [address] Elizabeth Dunn MD [address] [place] [address] 06/07/2025 2:30 PM EST Office Visit [facility] OPTOMETRY [address] [place] [address] Dawson, Mulu, OD [address] [place] [address] documented as of this encounter Visit Diagnoses Not on filedocumented in this encounter Additional Health Concerns Assessment Noted Time PHQ-9 Depression Total Score: 0 08/20/19 24 2:32 PM EDT documented as of this encounter Care Teams Cable Mechanic Relationship Specialty Start Date End Date Elizabeth Dunn MD [address] [place] [address] PCP - General Family Medicine 03/17/18 Kai Bowden, MATT [address] [place] [address] Registered Nurse Family Medicine 02/08/25 Manuela Melendez 02/08/25 Thao Barnhart English As A Second Language TeacherOutsole Rounder 02/07/23 documented as of this encounter
--- OUTSIDE RECORDS SUMMARY | 2025-03-04 16:21 | XMS_ITS | Encounter Summary ---
Author Organization [employer] Address [address] [place] [address] 7t [place] [address] Care Team Providers Care Sensor Operator Name Role Phone Elizabeth Dunn MD Primary Care Provide r Kai Bowden RN Unavailable [phone] Manuela Melendez Unavailable Encounter Details Date Type Department Care Team (Late st Contact Info) Description 05/17/2022 Abstract [facility] MEDICINE [address] [place] [address] Linda Romero, PharmD [address] [place] [address] Social History Tobacco Use Types Packs/Day Years [...] Info) Description 03/22/2025 2:30 PM EST Telemedicine [facility] MEDICINE [address] [place] [address] Elizabeth Dunn MD [address] [place] [address] 06/07/2025 2:30 PM EST Office Visit [facility] OPTOMETRY [address] [place] [address] Mulu Osman, OD [address] [place] [address] documented as of this encounter Visit Diagnoses Not on filedocumented in this encounter Care Teams Sensor Operator Relationship Specialty Start Date End Date Elizabeth Dunn MD [address] [place], [place] [phone] PCP - General Family Medicine 03/17/18 Kai Bowden, MATT [address] [place] [address] Registered Nurse Family Medicine 02/08/25 Manuela Melendez 02/08/25 Thao Barnhart Diabetes TrainerFlumer 02/07/23 documented as of this encounter
--- OUTSIDE RECORDS SUMMARY | 2025-03-04 16:21 | XMS_ITS | Encounter Summary ---
Author Organization [employer] Address [address] [place] [address] 7t [place] [address] Care Team Providers Care Value Analysis Coordinator Name Role Phone Elizabeth Dunn MD Primary Care Provide r Kai Bowden RN Unavailable [phone] Manuela Melendez Unavailable Reason for Visit * Reason Onset Date Comments Med Refill 12/17/2022 Encounter Details Date Type Department Care Team (Late st Contact Info) Description 12/17/2022 Telephone [facility] MEDICINE [address] [place] [address] Elizabeth Dunn MD [address] [place], [place] [phone] Med Refill Social History Tobacco Use Types [...] Info) Description 03/22/2025 2:30 PM EST Telemedicine [facility] MEDICINE [address] [place] [address] Elizabeth Dunn MD [address] [place] [address] 06/07/2025 2:30 PM EST Office Visit [facility] OPTOMETRY [address] [place], [place] [phone] Mulu Osman, OD [address] [place] [address] documented as of this encounter Visit Diagnoses Not on filedocumented in this encounter Additional Health Concerns Assessment Noted Time PHQ-9 Depression Total Score: 0 08/03/19 23 3:13 PM EDT documented as of this encounter Care Teams Value Analysis Coordinator Relationship Specialty Start Date End Date Elizabeth Dunn MD [address] [place] [address] PCP - General Family Medicine 03/17/18 Kai Bowden, RN [address] [place] [address] Registered Nurse Family Medicine 02/08/25 Manuela Melendez 02/08/25 Thao Barnhart Capper Machine OperatorCruise Director 02/07/23 documented as of this encounter
--- OUTSIDE RECORDS SUMMARY | 2025-03-04 16:21 | XMS_ITS | Encounter Summary ---
Author Organization [employer] Address [address] [facility] 7t [place] [address] Care Team Providers Care Commutator Inspector Name Role Phone Elizabeth Dunn MD Primary Care Provide r Kai Bowden RN Unavailable [phone] Manuela Melendez Unavailable Encounter Details Date Type Department Care Team ([facility] st Contact Info) Description 03/01/2025 Telephone [facility] [address] [place] [address] Elizabeth Dunn MD [address] [place] [address] Social History Tobacco Use Types Packs/Day Years [...] AM EDT Incoming call from Varsha at [facility] requesting MRI Ankle & MRI Foot. Both orders to be update. Pleaseupdate order to MRI Ankle Right WO Contrast & MRI Foot Right WO Contrast. Please advise! documented in this encounter Plan of Treatment Upcoming Encounters Date Type Department Care Team (Late st Contact Info) Description 03/22/2025 2:30 PM EST Telemedicine [facility] MEDICINE [address] [place] [address] Elizabeth Dunn MD [address] [place] [address] 06/07/2025 2:30 PM EST Office Visit [facility] OPTOMETRY [address] [place] [address] Mulu Osman, OD [address] [place] [address] documented as of this encounter Visit Diagnoses Not on filedocumented in this encounter Additional Health Concerns Assessment Noted Time PHQ-9 Depression Total Score: 0 02/03/20 2:44 PM EDT documented as of this encounter Care Teams Commutator Inspector Relationship Specialty Start Date End Date Elizabeth Dunn MD [address] [place] [address] PCP - General Family Medicine 03/17/18 Kai Bowden, MATT [address] [place] [address] Registered Nurse Family Medicine 02/08/25 Manuela Melendez 02/08/25 Thao Barnhart Water Pollution ScientistReprint Sorter 02/07/23 documented as of this encounter
--- OUTSIDE RECORDS SUMMARY | 2025-03-04 16:21 | XMS_ITS | Patient Health Record ---
Author Organization [facility] Address [address] [place] [address] Care Team Providers Care Freight Car Cleaner Name Role Phone SHAHRZAD ENRIQUE Primary Care Provider Fracisco Cruz [phone] Allergies Allergen (clinical drug ingredient) Drug/Non Drug [...] Problem Screening for malignant neoplasm of colon (475707227) Encounter for screening for malignant neoplasm of colon (Z12.11) Active confirmed Problem History of adenomatous polyp of colon (246633289) History of adenomatous polyp of colon (Z86.010) Active confirmed Problem Screening for malignant neoplasm of rectum (569565363) Encounter for screening for malignant neoplasm of rectum (Z12.12) Active confirmed Problem Family History of Cancer of Colon (Situation) (658772063) Family history of colon cancer (Z80.0) Active confirmed Problem Long-term current use of drug therapy (234388593) Long-term use of high-risk medication (Z79.899) Active confirmed Plan Of Treatment Pending Test Test Name Order Date GI BIOPSY 02/05/2016 Future Test Test Name Order Date COLONOSCOPY 10/31/2015 Insurance Providers Payer Name Payer Address Payer Phone Subscriber Number Group Number Insured Name Patient Relationship to Insured Coverage Start Date Coverage End Date [facility] [address] [facility] [place] [phone] [id number] MICHAEL SUGGS Self - patient is the insured MED[place] OF [email or web address] [address] [place] [id number] MICHAEL SUGGS Self - patient is the insured Medical (General) History Medical History History ICD Code Colonoscopy 2004 and 2009 with small tub ular adenomas removed Depression/Anxiety Fibromyalgia Fluid retention Denies [place],DM,CVA,Lung disease,renal dise ase Surgical History Surgery Date(Month/Year) Laparoscopic gastric bypass in 2005 Breast reduction Panniculectomy Hysterectomy with left oophorectomy Neck surgery--for a disc
[2025-03-04] MEDS: Lactated Ringers 1,000 ML 999 ML IV (17:00)
[2025-03-04 17:30] VITALS: BP 117/66; PULSE 76; RESP 16; TEMP 36.6; O2SAT 98
--- NOTE | 2025-03-04 18:36 | PC.NURSE ---
repeat poc 62, pt asymptomatic, ambulate without diff, pt given 1/2 peanut butter sandwich and g'karen per Araceli, BETTE. Pt states she will eat dinner when she goes home.
[2025-03-04 18:37] LABS: Glucose, Whole Blood 62 mg/dL (60-115)
[2025-03-04 18:39] VITALS: BP 117/66; PULSE 76; RESP 16; TEMP 36.6; O2SAT 98
== END 2025-03-04 18:43 | disposition home or self-care (01) ==
PROVIDERS: Emergency Provider Emergency Medicine; PCP Internal Medicine
DX: T50.901A Poisoning by unspecified drugs, medicaments and biological substances, accidental (unintentional), initial encounter (principal); R07.89 Other chest pain; R42 Dizziness and giddiness; E11.9 Type 2 diabetes mellitus without complications; Z79.84 Long term (current) use of oral hypoglycemic drugs
CPT/HCPCS: 36415; 80053; 82947; 83735; 84484; 85025; 93005; 96360; 96361; 99284; J7120

== ENCOUNTER → 2025-03-04 14:02 | Outpatient (BNV) | payer MEDICAID, SELFPAY | PROVIDERS: Emergency Provider Emergency Medicine; PCP Internal Medicine; Visit Provider Internal Medicine Cardiovascular Disease | DX: I49.8 Other specified cardiac arrhythmias (principal) | CPT/HCPCS: 93010 ==

== ENCOUNTER 2025-03-13 14:42 | Inpatient (IN) | payer OTHER, SELFPAY ==
--- NOTE | 2025-03-13 14:53 | ED_ITS ---
HPI - General Adult General Chief complaint: Psychiatric Symptoms Stated complaint: V/A HALLUCINATIONS,FLIGHT RISK PER EMS Time Seen by Provider: 03/13/25 14:53 Source: patient, EMS and spanish medical interpreter (all interactions with this patient were facilitated with an [facility] spanish medical interpreter) Mode of arrival: EMS Limitations: language barrier (all interactions with this patient were facilitated with an [facility] spanish medical interpreter) History of Present Illness ED Provider: Jaylene Bailon PA-C HPI narrative: Patient is a 65 year old assigned female at with a history of diabetic neuropathy, DM, chronic pain syndrome, MDD, asthma, fibromyalgia, migraines, and hallucinations presenting to the emergency department today with worsening hallucinations. Patient states that she is feeling very anxious but has no thoughts of hurting herself or others. Patient states that she is hearing and seeing things that are not there. Related Data Home Medications ?Medication ?Instructions ?Recorded ?Confirmed trazodone 100 mg tablet 300 mg PO BEDTIME 01/23/24 1 05/13/24 venlafaxine 150 mg 300 mg PO QAM 01/23/2403/13 capsule,extended release 24 hr aripiprazole 2 mg tablet 2 mg PO DAILY 03/13/2503/13 clonazepam 0.5 mg tablet 0.5 mg PO DAILY PRN Anxiety 03/13/25 03/13/25 melatonin 5 mg tablet 10 mg PO BEDTIME PRN Insomni a 03/13/25 03/13/25 pregabalin 225 mg capsule 225 mg PO BID 03/13/2503/13 Previous Rx's ?Medication ?Instructions ?Recorded clonazepam 1 mg tablet 1 mg PO BID 30 days #60 tabs 12/16/22 hydrochlorothiazide 50 mg tablet 50 mg PO DAILY #30 ta bs 08/12/23 metformin 500 mg tablet,extended 500 mg PO BIDWM #60 t abs 08/12/23 release 24 hr Allergies Allergy/AdvReac Type Severity Reaction Status Date / Time morphine (MORPHINE) Allergy Intermediate PALPITATIONS, Verified 03/13/25 15:12 tachicardia quetiapine (Seroquel) Allergy Intermediate Aggitation Verified 03/13/25 15:12 orphenadrine (ORPHENADRINE) AdvReac Intermediate RAPID Verified 03/13/25 15:12 HEART RATE Review of Systems 2 Constitutional: Constitutional: Reports as per HPI Eyes: Eyes: Reports as per HPI ENT: Reports as per HPI Cardiovascular: Cardiovascular: Reports as per HPI Respiratory: Respiratory: Reports as per HPI Gastrointestinal: Gastrointestinal: Reports as per HPI Genitourinary: Genitourinary: Reports as per HPI Musculoskeletal: Musculoskeletal: Reports as per HPI Integumentary/Breasts: Skin/Breast: Reports as per HPI Neurologic: Reports as per HPI Psychiatric: Psychiatric: Reports as per HPI Endocrine: Endocrine: Reports as per HPI Hematologic/Lymphatic: Hematologic/Lymphatic: Reports as per HPI Allergic/Immunologic: Allergic/Immunologic: Reports as per HPI [facility] Past Medical History Attestation statement: The following information was validated with the patient. Source: old records reviewed and nursing notes reviewed Medical History Weakness Arthritis History of brain inflammation Protrusion of lumbar intervertebral disc Tinnitus Venous insufficiency Osteoarthritis Loss of hair History of headache Fibromyositis Fatigue Hyperlipidemia HTN (hypertension) Continuous opioid dependence Sinusitis Anemia Anxiety Diverticulosis Chronic idiopathic constipation Migraine Asthma Depression Diabetes 1.5, managed as type 2 Fibromyalgia Surgical History History of back surgery History of esophagogastroduodenoscopy (EGD) S/P panniculectomy Hx of hysterectomy Hx of oophorectomy Hx of bilateral breast reduction surgery H/O colonoscopy History of pubovaginal sling Gastric bypass status for obesity Family History Family History Mother Colon cancer Social History Social History Household Members: Spouse and Children Household Members Other:: lives alone Housing: House Are you a primary care professional to a significant other at home: No Do you presently have visiting nurse or other home services: Yes (DIET THERAPIST) Alcohol intake: never Comment: IV infiltrated Patient Tobacco Use Status: Never used Tobacco Second Hand Smoke Exposure: No Advance Directives: Yes Advance Directives on File: Yes Advance Directives Date on File: 07/24/23 Patient : No service: No Current occupational status: disabled Sexual orientation: Straight/Heterosexual Gender identity: Female Physical Exam ED Vital Signs: Vital Signs - 24 hr 03/14/25 08:54 03/14/25 15:03 Temperature 97.2 F 97.8 F Pulse Rate 70 74 Respiratory Rate 14 14 Blood Pressure 101/59 L 109/64 Pulse Oximetry 92 96 Oxygen Delivery Method Room Air Room Air BMI result Body Mass Index 27.5 Const General: cooperative, no acute distress, alert and awake Nutritional Appearance: well nourished Orientation/consciousness: patient oriented x3 HENMT Head: Yes normal to inspection and Yes atraumatic Ears: hearing grossly normal bilaterally and external ears normal General nose exam: Normal external nose present, no nasal discharge noted and no epistaxis Face and sinus: Yes normal facial exam, No abrasion and No laceration Mouth: Normal oral and palatal mucosa present, no drooling and no muffled voice Eyes General: appearance normal, both eyes and all related structures Periorbital: periorbital findings normal Eyelids: Yes eyelids normal Conjunctivae: conjunctivae normal Pupils: Equal, round and reactive pupils present EOM: EOMs intact bilaterally Neck Neck: Yes normal visual inspection and Yes full ROM Resp Effort & Inspection: normal respiratory effort and able to speak in complete sentences Neuro General: patient oriented x3, moves all extremities and CN's II-XI intact bilaterally Cranial nerves: Yes Equal, round and reactive pupils present Cognition (Neuro): normal cognition Extrem General: Yes normal to inspection, Yes full ROM and Yes capillary refill normal Psych Appearance: grossly normal Mental Status: mental status grossly normal Attitude: Guarded attititude/behavior present Thought content: delusions Course Course Course Narrative: Time: 06:14 Date: 03/14/25 Provider: Lindy Holder, DO Patient in physician observation for psychiatric evaluation.? No acute events reported overnight. No current complaints. VS stable.? Patient is in bed search status. Will continue to monitor. Reevaluation(s) Reevaluation #1: 03/14/2025 1700 Physician observation and patient admitted inpatient JESSICA Medications Administered Generic Name Dose Route Start Last Admin Trade Name Freq PRN Reason Stop Dose Admin Aripiprazole 2 mg 03/14/25 09:00 03/14/25 08:52 Aripiprazole 2 Mg Tablet PO 2 mg DAILY HARLEY Administration Clonazepam 0.5 mg 03/13/25 18:11 03/14/25 14:19 Clonazepam 0.5 Mg Tablet PO 0.5 mg DAILY PRN Administration Anxiety Clonazepam 1 mg 03/13/25 21:00 03/14/25 21:38 Clonazepam 1 Mg Tablet PO 1 mg BID HARLEY Administration Hydrochlorothiazide 50 mg 03/14/25 09:00 03/14/25 08:52 Hydrochlorothiazide 50 Mg Tablet PO 50 mg DAILY HARLEY Administration Protocol Insulin Human Lispro 0 unit 03/14/25 21:00 03/14/25 21:37 Insulin Lispro 100 Unit/Ml 3 Ml Vial SUBCUT Not Given [facility] Protocol Melatonin 9 mg 03/13/25 18:18 03/14/25 21:40 Melatonin 3 Mg Tablet PO 9 mg BEDTIME PRN Administration Insomnia Metformin HCl 500 mg 03/14/25 08:00 03/14/25 17:50 Metformin Hcl Er 500 Mg Tab.Er.24h PO 500 mg BIDWM HARLEY Administration Pregabalin 225 mg 03/13/25 21:00 03/14/25 21:38 Pregabalin 75 Mg Capsule PO 225 mg BID HARLEY Administration Trazodone HCl 300 mg 03/13/25 21:00 03/14/25 21:38 Trazodone Hcl 100 Mg Tablet PO 300 mg BEDTIME HARLEY Administration Venlafaxine HCl 300 mg 03/13/25 18:15 03/14/25 08:51 Venlafaxine Hcl Er 150 Mg Cap.Er.24h PO 300 mg DAILY HARLEY Administration Discontinued Medications Generic Name Dose Route Start Last Admin Trade Name Nathanielq PRN Reason Stop Dose Admin Lorazepam 1 mg 03/13/25 16:16 03/13/25 16:39 Lorazepam 1 Mg Tablet PO 03/13/25 16:17 1 mg ONCE ONE Administration Lorazepam 2 mg 03/14/25 16:13 03/14/25 16:21 Lorazepam 1 Mg Tablet PO 03/14/25 16:14 2 mg ONCE ONE Administration Medical Decision Making Medical Decision Making [facility] Narrative: Patient is a 65 year old assigned female at with a history of diabetic neuropathy, DM, chronic pain syndrome, MDD, asthma, fibromyalgia, migraines, and hallucinations presenting to the emergency department today with worsening hallucinations. Patient's physical exam was as noted in the physical exam portion of this note. Patient's blood work was unremarkable. Patient met with the CARE team who recommended inpatient level of psychiatric care. I explained my physical exam findings as well as all test results to the patient. I answered all questions asked by the patient. Patient placed in observation at 1456 on 03/13/2025 pending either admission here at the [facility] on the psychiatric floor or transfer to an appropriate psychiatric facility. Differential Diagnosis Differential Diagnoses: The differential diagnosis associated with the presentation includes Auditory hallucinations Visual hallucinations Admission/Observation Consideration of admission/observation: Escalation of care including admission/observation considered Patient in observation pending either admission here at the [facility] on the psychiatric floor or transfer to an appropriate psychiatric facility. Consult Healthcare Provider Management of the patient was discussed with: Behavioral Health Provider (spoke with the CARE team as noted in the MDM Rationale portion of this note) Lab Data MDM Lab Attestation statement: I reviewed the patient's lab results. My interpretation of these results are in the MDM Rationale portion of this note. 03/13/25 15:35 03/13/25 15:35 Labs: Lab Results 03/13/25 03/13/25 Range/Units 15:35 23:28 WBC 7.1 (4.8-10.8) X10*3/uL RBC 4.89 (4.20-5.50) X10*6/uL Hgb 11.8 L (12.0-16.0) g/dl Hct 37.4 (37.0-47.0) % MCV 76.5 L (80.0-98.0) fL MCH 24.1 L (27.0-33.0) pg MCHC 31.6 (31.0-35.0) g/dl RDW 19.2 H (11.0-16.0) % Plt Count 261 (160-400) X10*3/uL MPV 10.5 (9.4-12.3) fL Immature Gran % (Auto) 0.4 (0.0-0.4) % Neut % (Auto) 52.9 (45-73) % Lymph % (Auto) 34.9 (20-40) % [place] % (Auto) 9.4 (2-11) % Eos % (Auto) 2.1 (0-4) % Baso % (Auto) 0.3 (0-2) % Lymph # (Auto) 2.5 (1.2-4.9) X10*3/uL [place] # (Auto) 0.7 (0.1-1.2) X10*3/uL Eos # (Auto) 0.2 (0.0-0.4) X10*3/uL Baso # (Auto) 0.0 (0.0-0.2) X10*3/uL Abs Immat Gran (auto) 0.03 (0.00-0.03) X10*3/uL Absolute Neuts (auto) 3.8 (2.0-8.3) x10*3/uL Absolute Nucleated RBC 0.000 (0.0-0.012) X10*3/uL Nucleated RBC % (auto) 0.0 (0.0-0.2) /100WBC Sodium 143 (135-145) mmol/L Potassium 3.7 (3.3-5.1) mmol/L Chloride 105 (96-108) mmol/L Carbon Dioxide 25 (22-29) mmol/L Anion Gap 17 (12-20) BUN 20 H (9-16) mg/dL Creatinine 1.05 (0.5-1.4) mg/dL Estim Creat Clear Calc 53.5 Estimated GFR 53 Random Glucose 68 (60-115) mg/dL Calcium 8.9 (8.4-10.2) mg/dL Total Bilirubin 0.2 (0.0-1.0) mg/dL AST 24 (5-31) U/L ALT 13 (0-31) U/L Alkaline Phosphatase 81 (39-117) U/L Total Protein 7.4 (6.5-8.0) g/dL Albumin 4.4 (3.5-5.0) g/dL Urine Color Yellow Urine Appearance Clear Urine pH 5.0 (5.0-9.0) Ur Specific [place] 1.020 (1.005-1.025) Urine Protein Negative (Neg-Trace) mg/dL Urine Glucose (UA) Negative (Negative) mg/dL Urine Ketones Negative (Negative) mg/dL Urine Blood Negative (Negative) Urine Nitrite Negative (Negative) Ur Leukocyte Esterase Trace H (Negative) Urine RBC 0-2 (0-2) /HPF Urine WBC 0-5 (0-5) /HPF Ur Squamous Epith Cells 3-5 (0-2) /HPF Urine Bacteria Trace (None Seen) Hyaline Casts 0-2 (0-2) /LPF Urine Opiates Screen Not Detected (Not Detect) Ur Buprenorphine Scrn Not Detected (Not Detect) ng/mL Ur Oxycodone Screen Not Detected (Not Detect) ng/mL Urine Methadone Screen Not Detected (Not Detect) ng/mL Urine Fentanyl Screen Not Detected (Not Detect) Ur Barbiturates Screen Not Detected (Not Detect) Ur Phencyclidine Scrn Not Detected (Not Detect) Ur Amphetamines Screen Not Detected (Not Detect) U Benzodiazepines Scrn Not Detected (Not Detect) Urine Cocaine Screen Not Detected (Not Detect) U Marijuana (THC) Screen Not Detected (Not Detect) Ethyl Alcohol < 10 mg/dL Chronic Conditions Patient?s care impacted by: Diabetes Critical Care Time Critical Care Time Critical Care Time: Yes Total Critical Care Time: 37 Attestation: I spent 37 minutes of Critical Care Time with this patient. This does not include time spent on separately reported billable procedures. Discharge Plan Discharge Clinical Impression: Auditory hallucination, Hallucination, visual Patient Disposition: Admitted As Inpatient Interventions: Admission Worksheet (ED) Last Done: 03/14/25 17:07 Discharge Date/Time: 03/14/25 17:43
[2025-03-13 15:11] VITALS: BP 118/80; BP 149/83; PULSE 101; PULSE 80; RESP 16; TEMP 36.1; O2SAT 97; BMI 27.5
[2025-03-13 15:13] VITALS: RESP 16
--- OUTSIDE RECORDS SUMMARY | 2025-03-13 15:40 | XMS_ITS | Encounter Summary ---
Author Organization [employer] Address [address] [facility] [address]t h Floor [place] [id number] Care Team Providers Care Faculty Head Name Role Phone Elizabeth Dunn MD Primary Care Provide r Kai oBwden RN Unavailable [phone] Manuela Melendez Unavailable Reason for Visit * Reason Onset Date Comments Nurse Triage 03/09/2025 Encounter Details Date Type Department Care Team ([facility] st Contact Info) Description 03/09/2025 Telephone [facility] [address] [place] [address] Elizabeth Dunn MD [address] [place] [address] Nurse Triage Social History Tobacco Use Types [...] encounter Miscellaneous Notes * Telephone Encounter - Rita Frankel RN - 03/10/2025 11:45 AM EDT Images from the original note were not included. Elizabeth Goncalves MD to Me (Selected Message) MB 03/09/25 4:33 PM I called the pharmacy and they told me they cover the tablets but not the capsule for colchicine, so I put the prescription in for tablets this time please let patient know thank you! T/C to pt. Advised of message from PCP re: colchicine prescription. Pt reports agreement with plan. * Telephone Encounter - Rita Frankel RN - 03/09/2025 2:31 PM EDT Per review of chart, pt has been evaluated by pcp 02/14/25 and 02/28/25 for similar complaints. At last office visit pcp ordered MRIs and prescribed colchicine. Call returned to pt via [employer] Analy[employer]i #[id number]. Pt c/o 9/10 pain to bilateral legs and feet. Pt c/o slight swelling to feet. States that she has chronic bruising on her feet due to chronic conditions. Pt denies injury. Pt reports that she feels pain is worse than when she was evaluated on 02/28/25. Reports she has been to the ED x 3 for the same complaint. Pt states pcp did not give her anything for the pain. Advised pt that PCP ordered MRIs and prescribed colchicine. Pt states that her insurance would not pay for colchicine. Pt reports that she is lying in bed due to pain. States she is able to walk but it is painful and difficult to do so. Advised that RN will contact the pharmacy re: colchicine prescription. Recommended that pt come to walk in center for evaluation or go to ED ifpain is severe. Pt declines both options. T/C to [facility]. Pharmacy confirms that colchicine requires a PA. Advised will update provider. Protocol Used: Leg Pain (Adult) Protocol-Based Disposition: Go to Office or Video Visit Now Positive Triage Question: * Severe pain (e.g., excruciating, unable to do any normal activities) * All higher-acuity triage questions were negative Care Advice Discussed: * Reasons To Call Back - Signs of infection occur (such as spreading redness, warmth, fever) - You become worse * Telephone Encounter - Getachew Palafox - 03/09/2025 12:14 PM EDT Symptoms: Leg Pain - Not From Injury, Foot or Ankle Pain - Not From Injury Outcome: Schedule an urgent appointment (within 1 hour) or talk to a nurse or provider soon Reason: Severe pain now The caller accepted this outcome. Contact pt at [phone] documented in this encounter Plan of Treatment Upcoming Encounters Date Type Department Care Team (Late st Contact Info) Description 03/22/2025 2:30 PM EST Telemedicine [facility] [address] [place], [place] [phone] Elizabeth Dunn MD [address] [place] [address] 06/07/2025 2:30 PM EST Office Visit [facility] [address] [place], [place] [phone] DawsonMulu, OD [address] [place], [place] [phone] documented as of this encounter Visit Diagnoses Not on filedocumented in this encounter Additional Health Concerns Assessment Noted Time PHQ-9 Depression Total Score: 0 02/03/20 2:44 PM EDT documented as of this encounter Care Teams Faculty Head Relationship Specialty Start Date End Date Elizabeth Dunn MD [address] [place], [place] [phone] PCP - General Family Medicine 03/17/18 Kai Bowden, MATT [address] [place] [address] Registered Nurse Family Medicine 02/08/25 Manuela Melendez 02/08/25 Thao Barnhart Network Design ArchitectClinic Office Coordinator 02/07/23 documented as of this encounter
--- OUTSIDE RECORDS SUMMARY | 2025-03-13 15:40 | XMS_ITS | Encounter Summary ---
Author Organization [employer] Address [address] [facility] 7t [place] [address] Care Team Providers Care Electrical And Instrument Engineer Name Role Phone Elizabeth Dunn MD Primary Care Provide r Kai Bowden RN Unavailable [phone] Manuela Melendez Unavailable Encounter Details Date Type Department Care Team (Late st Contact Info) Description 03/09/2025 Orders Only [facility] [address] [place] [address] Elizabeth Dunn MD [address] [place] [address] Acute right ankle pain; Right foot pain [...] Info) Description 03/22/2025 2:30 PM EST Telemedicine [facility] [address] [place] [address] Elizabeth Dunn MD [address] [place] [address] 06/07/2025 2:30 PM EST Office Visit [facility] [address] [place] [address] Dawson, Mulu, OD [address] [place] [address] documented as of this encounter Visit Diagnoses Diagnosis Acute right ankle pain Right foot pain Pain in soft tissues of limb documented in this encounter Additional Health Concerns Assessment Noted Time PHQ-9 Depression Total Score: 0 02/03/20 25 2:44 PM EDT documented as of this encounter Care Teams Electrical And Instrument Engineer Relationship Specialty Start Date End Date Elizabeth Dunn MD [address] [place] [address] PCP - General Family Medicine 03/17/18 Kai Bowden, RN [address] [place] [phone] Registered Nurse Family Medicine 02/08/25 Manuela Melendez 02/08/25 Thao Barnhart Banana CarrierCostume Seamstress 02/07/23 documented as of this encounter
--- OUTSIDE RECORDS SUMMARY | 2025-03-13 15:40 | XMS_ITS ---
Author Organization [employer] Address [address] [facility] 7t [place] [address] Care Team Providers Care Orthopedic Specialist Name Role Phone Elizabeth Dunn MD Primary Care Provide r Kai Bowden RN Unavailable [phone] Manuela Melendez Unavailable [facility] Status:Outreach In Progress (Enrolling) Start date:02/08/2025 Enrollment reason:ADT Feed Overview ED- Pt went to [facility] ED on 02/07/25. Case Team Name Relationship Phone Manuela Melendez(Responsible Staff) [phone] Continued Care and Services Coordination
--- OUTSIDE RECORDS SUMMARY | 2025-03-13 15:40 | XMS_ITS | Encounter Summary ---
Author Organization [employer] Address [address] [facility] 7t [place] [address] Care Team Providers Care Drafter (Cad) Electrical Name Role Phone Elizabeth Dunn MD Primary Care Provide r Kai Bowden RN Unavailable [phone] Manuela Melendez Unavailable Reason for Visit * Reason Comments chest pain Encounter Details Date Type Department Care Team ([facility] st Contact Info) Description 03/07/2025 Patient Outreach [facility] [address] [place], [place] [phone] Elizabeth Dunn MD [address] [place] [address] chest pain Social History Tobacco Use Types Packs/Day [...] as of this encounter Progress Notes * Rita Adair RN - 03/07/2025 1:43 PM EDT Transition of Care Note Lelo Rivas is going through a recent transition of care. Emergency Room Visit Date: 03/04/25 Facility: [facility] Diagnosis: Chest Pain Disposition: Discharged home Discharge summary in the chart: Yes Please contact for a telehealth RN visit * Nora Martinez RN - 03/07/2025 1:43 PM EDT ED note reviewed, pt. In ED 03/04/25 s/p accidentally taking double doses of am meds including metformin, hydrochlorothiazide, Effexor, lyrica. Pt. Initially has low blood sugar at 48, given 15g glucose gel and blood sugar went up to 146. Pt. Also c/o chest tightness and dizziness. TC placed to pt. For status check, pt. Reports she is feeling fine, no recurrence of low blood sugar or any other symptoms. Pt. Has no questions or concerns at this time. documented in this encounter Plan of Treatment Upcoming Encounters Date Type Department Care Team (Late st Contact Info) Description 03/22/2025 2:30 PM EST Telemedicine [facility] [address] [place] [address] Elizabeth Dunn MD [address] [place] [address] 06/07/2025 2:30 PM EST Office Visit [facility] [address] [place] [address] Dawson, Mulu, OD [address] [place] [address] documented as of this encounter Visit Diagnoses Not on filedocumented in this encounter Additional Health Concerns Assessment Noted Time PHQ-9 Depression Total Score: 0 02/03/20 2:44 PM EDT documented as of this encounter Care Teams Drafter (Cad) Electrical Relationship Specialty Start Date End Date Elizabeth Dunn MD [address] [place] [phone] PCP - General Family Medicine 03/17/18 Kai Bowden, RN [address] [place] [address] Registered Nurse Family Medicine 02/08/25 Manuela Melendez 02/08/25 Thao Barnhart Wardrobe AttendantAsphalt Smoother 02/07/23 documented as of this encounter
--- OUTSIDE RECORDS SUMMARY | 2025-03-13 15:40 | XMS_ITS | Encounter Summary ---
Author Organization [employer] Address [address] [facility] 7t [place] [address] Care Team Providers Care Pot Operator Name Role Phone Elizabeth Dunn MD Primary Care Provide r Kai Bowden RN Unavailable [phone] Manuela Melendez Unavailable Reason for Visit * Reason Onset Date Comments Nurse Triage 11/26/2023 Encounter Details Date Type Department Care Team ([facility] st Contact Info) Description 11/26/2023 Telephone [facility] [address] [place] [address] Elizabeth Dunn MD [address] [place], [place] [phone] Nurse Triage Social History Tobacco Use Types [...] to PT. Per pt has not called emergency room specialist to notify of increased pain with [...] Info) Description 03/22/2025 2:30 PM EST Telemedicine [facility] [address] [place] [address] Elizabeth Dunn MD [address] [place] [address] 06/07/2025 2:30 PM EST Office Visit [facility] [address] [place] [address] Dawson, Mulu, OD [address] [place] [address] documented as of this encounter Visit Diagnoses Not on filedocumented in this encounter Additional Health Concerns Assessment Noted Time PHQ-9 Depression Total Score: 0 08/20/19 24 2:32 PM EDT documented as of this encounter Care Teams Pot Operator Relationship Specialty Start Date End Date Elizabeth Dunn MD [address] [place] [address] PCP - General Family Medicine 03/17/18 Kai Bowden, RN [address] [place] [address] Registered Nurse Family Medicine 02/08/25 Manuela Melendez 02/08/25 Thao Barnhart Personnel AnalystRadial Drill Operator 02/07/23 documented as of this encounter
--- OUTSIDE RECORDS SUMMARY | 2025-03-13 15:40 | XMS_ITS | Encounter Summary ---
Author Organization [employer] Address [address] [place] [address] 7[address] [place] [address] Care Team Providers Care Replenishment Analyst Name Role Phone Elizabeth Dunn MD Primary Care Provide r Kia Bowden RN Unavailable [phone] Manuela Melendez Unavailable Encounter Details Date Type Department Care Team (Late st Contact Info) Description 01/29/2023 Orders Only [facility] [address] [place] [address] [phone] ProviderHector MD Social History Tobacco Use Types [...] Info) Description 03/22/2025 2:30 PM EST Telemedicine [facility] [address] [place] [address] [phone] Elizabeth Dunn MD [address] [place], [place] [phone] 06/07/2025 2:30 PM EST Office Visit [facility] [address] [place] [address] Mulu Osman, OD [address] [place] [address] documented as of this encounter Procedures Procedure [...] documented as of this encounter Care Teams Replenishment Analyst Relationship Specialty Start Date End Date Elizabeth Dunn MD [address] [place], [place] [phone] PCP - General Family Medicine 03/17/18 Kai Bowden, RN [address] [place] [address] Registered Nurse Family Medicine 02/08/25 Manuela Melendez 02/08/25 Thao Barnhart Factory Maintenance ManagerSales Support Specialist 02/07/23 documented as of this encounter
--- OUTSIDE RECORDS SUMMARY | 2025-03-13 15:40 | XMS_ITS | Encounter Summary ---
Author Organization [employer] Address [address] [facility] [address]t h Floor [place] [phone] Care Team Providers Care Quality Control Systems Manager Name Role Phone Elizabeth Dunn MD Primary Care Provide r Kai Bowden RN Unavailable [phone] Manuela Melendez Unavailable Reason for Visit * Reason Onset Date Comments Med Refill 06/21/2024 Encounter Details Date Type Department Care Team ([facility] st Contact Info) Description 06/21/2024 Telephone [facility] [address] [place] [address] Elizabeth Dunn MD [address] [place], [place] [phone] Med Refill Social History Tobacco Use Types [...] is your housing situation today? I have kaitalnio mnariquez 08/20/[address] you li [...] 500 MG tablet To be sent to: [facility]/pharmacy #[id number] documented in this encounter Plan of Treatment Upcoming Encounters Date Type Department Care Team (Late st Contact Info) Description 03/22/2025 2:30 PM EST Telemedicine [facility] [address] [place], [place] [phone] Elizabeth Dunn MD [address] [place] [address] 06/07/2025 2:30 PM EST Office Visit [facility] [address] [place], [place] [phone] Mulu Osman, OD [address] [place] [address] documented as of this encounter Visit Diagnoses Not on filedocumented in this encounter Additional Health Concerns Assessment Noted Time PHQ-9 Depression Total Score: 0 08/20/19 24 2:32 PM EDT documented as of this encounter Care Teams Quality Control Systems Manager Relationship Specialty Start Date End Date Elizabeth Dunn MD [address] [place], [place] [phone] PCP - General Family Medicine 03/17/18 Kai Bowden, MATT [address] [place] [phone] Registered Nurse Family Medicine 02/08/25 Manuela Melendez 02/08/25 Thao Barnhart Private InvestigatorChief Pharmacist 02/07/23 documented as of this encounter
--- OUTSIDE RECORDS SUMMARY | 2025-03-13 15:40 | XMS_ITS | Encounter Summary ---
Author Organization [employer] Address [address] [place] [address] 7t [place] [address] Care Team Providers Care Supreme Court Judge Name Role Phone Elizabeth Dunn MD Primary Care Provide r Kai Bowden RN Unavailable [phone] Manuela Melendez Unavailable Encounter Details Date Type Department Care Team (Late st Contact Info) Description 05/17/2022 Abstract [facility] [address] [place] [address] Linda Romero, PharmD [address] [place] [address] Social History Tobacco Use Types Packs/Day Years [...] Info) Description 03/22/2025 2:30 PM EST Telemedicine [facility] [address] [place] [address] Elizabeth Dunn MD [address] [place] [address] 06/07/2025 2:30 PM EST Office Visit [facility] [address] [place] [address] Mulu Osman, OD [address] [place] [address] documented as of this encounter Visit Diagnoses Not on filedocumented in this encounter Care Teams Supreme Court Judge Relationship Specialty Start Date End Date Elizabeth Dunn MD [address] [place], [place] [phone] PCP - General Family Medicine 03/17/18 Kai Bowden, MATT [address] [place] [address] Registered Nurse Family Medicine 02/08/25 Manuela Meelndez 02/08/25 Thao Barnhart Retail Merchandiser TechnicianSr. Payroll Manager 02/07/23 documented as of this encounter
--- OUTSIDE RECORDS SUMMARY | 2025-03-13 15:40 | XMS_ITS | Encounter Summary ---
Author Organization [employer] Address [address] [facility] 7t [place] [address] Care Team Providers Care School Attendance Secretary Name Role Phone Elizabeth Dunn MD Primary Care Provide r Kai Bowden RN Unavailable [phone] Manuela Melendez Unavailable Reason for Visit * Reason Comments Care Management C3CM- Initial assess ment/enrollment/LVM Encounter Details Date Type Department Care Team ([facility] st Contact Info) Description 03/01/2025 Patient Outreach [facility] [address] [place] [address] Elizabeth Dunn MD [address] [place] [address] Care Management (C3CM- Initial assessment/enrollmen t/LVM) Social [...] time, left message requesting call back at [phone] or CHW [phone]. CHW will attempt contact with patient to reschedule missed initial assessment. documented in this encounter Plan of Treatment Upcoming Encounters Date Type Department Care Team (Late st Contact Info) Description 03/22/2025 2:30 PM EST Telemedicine [facility] [address] [place], [place] [phone] Elizabeth Dunn MD [address] [place], [place] [phone] 06/07/2025 2:30 PM EST Office Visit [facility] [address] [place], [place] [phone] Dawson Mulu, OD [address] [place] [address] documented as of this encounter Visit Diagnoses Not on filedocumented in this encounter Additional Health Concerns Assessment Noted Time PHQ-9 Depression Total Score: 0 02/03/20 2:44 PM EDT documented as of this encounter Care Teams School Attendance Secretary Relationship Specialty Start Date End Date Elizabeth Dunn MD [address] [place] [address] PCP - General Family Medicine 03/17/18 Kai Bowden, MATT [address] [place] [phone] Registered Nurse Family Medicine 02/08/25 Manuela Melendez 02/08/25 Thao Barnhart Pattern And Chain MakerPractical Nurse 02/07/23 documented as of this encounter
--- OUTSIDE RECORDS SUMMARY | 2025-03-13 15:40 | XMS_ITS | Clinical Summary ---
Author Organization [facility], Address [address] [place] [address] Phone Care Team Providers Care Traffic Control Supervisor Name Role Phone Elizabeth Dunn MD [...] Calculated 126 0 - 160 mg/dL 05/31/2020 [facility] Provider LAB BLOOD ORDERABLES Sandy l Result from Last 3 Months or Most Recently Relevant to Health Maintenance Insurance [place] Member Subscriber Plan / Payer (Ef fective 2020-Present) Name:Jose Antonio Rivasda Relation to Subscriber:Self Name:Lelo Rivas Payer ID:Not on file Group ID:Not on file Type:Not on file Address[address] Medicaid [place] Care Teams Traffic Control Supervisor Relationship Specialty Start Date End Date Elizabeth Dunn MD [address] [place] [phone] PCP - General Internal Medicine 11/17/20
--- OUTSIDE RECORDS SUMMARY | 2025-03-13 15:40 | XMS_ITS ---
Author Organization [employer] Address [address] [facility] [address] [place] [address] Care Team Providers Care Investigator Narcotics Name Role Phone Elizabeth Dunn MD Primary Care Provide r Kai Bowden RN Unavailable [phone] Manuela Melendez Unavailable CM Complex Status:Outreach In Progress (Enrolling) Start date:02/08/2025 Enrollment reason:ADT Feed Overview ED- Pt went to [facility] ED on 02/07/25. Case Team Name Relationship Phone Kai Bowden RN(Responsible Staff) Registered [employer] nguyen [phone] Continued Care and Services Coordination
--- OUTSIDE RECORDS SUMMARY | 2025-03-13 15:40 | XMS_ITS | Encounter Summary ---
Author Organization [employer] Address [address] [facility] [address]t h Floor [place] [phone] Care Team Providers Care Field Placement Director Name Role Phone Elizabeth Dunn MD Primary Care Provide r Kai Bowden RN Unavailable [phone] Manuela Melendez Unavailable Encounter Details Date Type Department Care Team (Late st Contact Info) Description 03/26/2024 Orders Only [facility] [address] [place] [address] Elizabeth Dunn MD [address] [place] [address] Social History Tobacco Use Types Packs/Day Years [...] Info) Description 03/22/2025 2:30 PM EST Telemedicine [facility] [address] [place] [address] Elizabeth Dunn MD [address] [place] [address] 06/07/2025 2:30 PM EST Office Visit [facility] [address] [place] [address] Dawson, Mulu, OD [address] [place] [address] documented as of this encounter Visit Diagnoses Not on filedocumented in this encounter Additional Health Concerns Assessment Noted Time PHQ-9 Depression Total Score: 0 08/20/19 24 2:32 PM EDT documented as of this encounter Care Teams Field Placement Director Relationship Specialty Start Date End Date Elizabeth Dunn MD [address] [place] [address] PCP - General Family Medicine 03/17/18 Kai Bowden, MATT [address] [place] [address] Registered Nurse Family Medicine 02/08/25 Manuela Melendez 02/08/25 Thao Barnhart Ductfixing PlumberAdjunct Trainer 02/07/23 documented as of this encounter
--- OUTSIDE RECORDS SUMMARY | 2025-03-13 15:40 | XMS_ITS | Encounter Summary ---
Author Organization [employer] Address [address] [facility] [address]t [place] [address] Care Team Providers Care Crystal Machining Coordinator Name Role Phone Elizabeth Dunn MD Primary Care Provide r Kai Bowden RN Unavailable [phone] Manuela Melendez Unavailable Reason for Visit * Reason Comments Care Coordination C3CM/CHW Manuela Hood april, rescheduled initial assessment Encounter Details Date Type Department Care Team (Latest Contact Info) Description 03/08/2025 Patient Outreach [facility] [address] [place] [address] Elizabeth Dunn MD [address] [place] [address] Care Coordination (C3CM/CHW Manuela Melendez, rescheduled initial assessment ) Social History Tobacco Use Types Packs/Day [...] encounter Progress Notes * Manuela Melendez - 03/08/2025 11:34 AM EDT CHW Manuela Melendez placed an outbound call to the patient regarding rescheduling the missed InitialAssessment appointment from 03/01/25 for Adult Complex Care Program services. Patient???s name and were confirmed. The Initial Assessment appointment has been rescheduled for 03/15/25 at 1:30 PM. CHW will set up an appointment reminder and notify CM. CHW provided contact information ([phone]) for any questions or concerns. documented in this encounter Plan of Treatment Upcoming Encounters Date Type Department Care Team ([facility] Contact Info) Description 03/22/2025 2:30 PM EST Telemedicine [facility] [address] [place] [address] Elizabeth Dunn MD [address] [place] [address] 06/07/2025 2:30 PM EST Office Visit [facility] [address] [place], [place] [phone] Mulu Osman, OD [address] [place] [address] documented as of this encounter Visit Diagnoses Not on filedocumented in this encounter Additional Health Concerns Assessment Noted Time PHQ-9 Depression Total Score: 0 02/03/20 2:44 PM EDT documented as of this encounter Care Teams Crystal Machining Coordinator Relationship Specialty Start Date End Date Elizabeth Dunn MD [address] [place], [place] [phone] PCP - General Family Medicine 03/17/18 Kai Bowden, MATT [address] [place] [address] Registered Nurse Family Medicine 02/08/25 Manuela Melendez 02/08/25 Thao Barnhart Stretcher Drier OperatorCooling Pan Tender 02/07/23 documented as of this encounter
--- OUTSIDE RECORDS SUMMARY | 2025-03-13 15:40 | XMS_ITS | Clinical Summary ---
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 2 mL 2 Active colchicine 0.6 MG tabletIndications :Acute right ankle pain,Right foot pain First day 1.2 mg at the first sign of flare followed by 0.6 mg after 1 hour second day and thereafter: 0.6 mg twice daily until flare resolves 60 tablet 1 Active predniSONE (Deltasone) 10 MG tabletIndications [...] flare resolves 60 capsule 1 025 2024 Discontinued Active Problems Problem Noted Date [...] left foot, she is being manage by pain/instructional support specialist (medications prescribed by specialist only) Chronic bilateral low back pain with left-sided sciatica 08/20/2023 Assessment & Plan (01/07/2024 2:12 PM EDT): I will increase gabapentin to 600mg TID and refer her back to pain management Pelvic pain 08/20/2023 Assessment & Plan (08/21/2023 12:20 PM EDT): 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) 04/08/2017 02/02/2025 Encounters Date Type Department Care Team Description 03/09/2025 Orders Only [address] [address] Elizabeth Dunn MD Acute right ankle pain; Right foot pain 03/09/[address] [address] Elizabeth Dunn MD Nurse Triage 03/08/2025 Patient Outreach [address] [address] Elizabeth Dunn MD Care Coordination (C3/CHW Manuela Melendez, rescheduled initial assessment ) 03/07/2025 Patient Outreach [facility] [address] [place], [place] [phone] Elizabeth Dunn MD chest pain 03/07/2025 Patient Outreach [facility] [address] [place], [place] [phone] Elizabeth Dunn MD 03/04/2025 Orders Only GENERIC EXTERNAL DATA DEPARTMENT Provider, Generic External Data 03/01/2025 Orders Only [facility] [address] [place] [address] Elizabeth Dunn MD Acute right ankle pain; Right foot pain 03/01/2025 Refill [facility] [address] [place] [address] Elizabeth Dunn MD Acute right ankle pain; Right foot pain 03/01/2025 Orders Only [facility] [address] [place] [address] Elizabeth Dunn MD Right foot pain (Primary Dx); Acute right ankle pain 03/01/2025 Patient Outreach [facility] [address] [place], [place] [phone] Elizabeth Dunn MD Care Management (C3CM- Initial assessment/enrollment /LVM) 03/01/2025 Telephone [facility] [address] [place] [phone] Elizabeth Dunn MD 02/28/2025 2:00 PM EDT Office Visit [facility] [address] [place] [phone] Elizabeth Dunn MD Acute right ankle pain; Right foot pain 02/28/2025 Travel 02/28/[address] [address] Elizabeth Dunn MD Nurse Triage 02/23/[address] [address] Elizabeth Dunn MD ER Follow-up 02/22/2025 Orders Only GENERIC EXTERNAL DATA DEPARTMENT Provider, Generic External Data 02/21/2025 Results Follow-Up [address] [address] Elizabeth Dunn MD Uric acid 02/15/2025 Orders Only [address] [address] Elizabeth Dunn MD 2025 3:15 PM EDT Office Visit [address] [address] Elizabeth Dunn MD Polyarthralgia (Primary Dx); Right foot pain; Left foot pain; Type 2 diabetes mellitus without complication, without long-term current use of insulin (HCC); Fibromyalgia 2025 Travel 02/11/2025 Orders Only [facility] External Provider, [facility] 02/08/[address] [address] Elizabeth Dunn MD ER Follow-up 02/08/2025 Patient Outreach [address] [address] Elizabeth Dunn MD Care Coordination ([facility] Manuela Melendez, initial assessment scheduled ) 02/08/2025 Patient Outreach [address] [address] Elizabeth Dunn MD Care Coordination ([facility] Manuela Melendez, Chart review ) 02/08/2025 Patient Outreach [facility] [address] [place] [phone] Elizabeth Dunn MD Care Coordination ([facility]- chart review) 02/08/2025 Patient Outreach [address] [address] Elizabeth Dunn MD 02/07/2025 Orders Only GENERIC EXTERNAL DATA DEPARTMENT Provider, Generic External Data 02/02/2025 3:00 PM EDT Telemedicine [address] [address] Elizabeth Dunn MD Diabetic mononeuropathy simplex (CMS/HCC) (Primary Dx); 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order, without psychotic features (CMS/HCC); Mild intermittent asthma, unspecified whether complicated; Continuous opioid dependence (CMS/HCC); Fibromyalgia; Dietary counseling; Exercise counseling; Type 2 diabetes mellitus without complication, without long-term current use of insulin (CMS/HCC) 02/02/2025 Travel 02/01/[address] [address] Elizabeth Dunn MD 01/26/2025 3:30 PM EDT Office Visit [address] [phone] Elizabeth Dunn MD Type 2 diabetes mellitus without complication, without long-term current use of insulin ([facility]) (Primary Dx); Fibromyalgia; Acute pain of right shoulder; Class 1 obesity due to excess calories with serious comorbidity and body mass index (BMI) of 34.0 to 34.9 in adult 01/26/2025 Refill [facility] [address] [place] [address] Elizabeth Dunn MD Type 2 diabetes mellitus without complication, without long-term current use of insulin (CMS/[facility]) 01/26/2025 Travel 01/25/2025 Telephone [facility] [address] [place] [address] Elizabeth Dunn MD chart prep 01/21/2025 Travel 01/20/2025 Telephone [facility] [address] [place] [address] Elizabeth Dunn MD appt 01/15/2025 Refill [facility] [address] [place] [address] Vanna Chen MD Microcytic anemia 01/14/2025 Telephone [facility] [address] [place] [address] Elizabeth Dunn MD Prior Authorization ( PA: Trish) 01/12/2025 Orders Only [facility] [address] [place] [address] Elizabeth Dunn MD 01/12/2025 Refill [facility] [address] [place] [address] Elizabeth Dunn MD Class 2 severe obesity with serious comorbidity and body mass index (BMI) of 35.0 to 35.9 in adult, unspecified obesity type ([facility]) 01/11/2025 Refill [facility] [address] [place] [address] Elizabeth Dunn MD Chronic midline low back pain with left-sided sciatica 01/04/2025 10:20 AM EDT Office Visit [facility] [address] [place] [address] Dawson, Mulu, OD Type 2 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 (CMS/HCC) (Primary Dx) 01/04/2025 Travel 12/19/2024 Refill [facility] [address] [place] [address] Elizabeth Dunn MD Chronic bilateral low back pain with left-sided sciatica 12/15/2024 Orders Only [facility] [address] [place] [address] Elizabeth Dunn MD Class 2 severe obesity with serious comorbidity and body mass index (BMI) of 35.0 to 35.9 in adult, unspecified obesity type (CMS/HCC) (Primary Dx) 12/15/2024 Telephone [facility] [address] [place], [place] [phone] Elizabeth Dunn MD Med Refill 12/15/2024 Refill [facility] [address] [place], [place] [phone] Elizabeth Dunn MD from Last 3 Months [...] [facility] [address] [place] [address] Elizabeth Dunn MD [address] [place] [address] 06/07/2025 2:30 PM EST Office Visit [facility] [address] [place] [address] Dawson, Mulu, OD [address] [place] [address] Health Maintenance Due Date Last Done Comments [...] Diagnosis Comments GLUCOSE, WHOLE BLOOD Routine 03/04/2025 6:32 PM EDT GLUCOSE, WHOLE BLOOD Routine 03/04/2025 3:57 PM [...] Recently Relevant to Health Maintenance Results * Glucose, Whole Blood (03/04/2025 6:32 PM EDT) Only the most recent of2 resultswithin the time period is included. Glucose, Whole Blood 62 60 - 115 mg/dL [facility] Comment:METER #: [id number] 03/04/2025 6:32 PM EDT 03/04/2025 6:36 PM EDT us Generic External Data Provider LAB BLOOD ORDERAB LES Final Result [facility] [address] [place] [phone] * XR Chest 1 View (02/22/2025 2:39 PM EDT) Anatomical Region Laterality Modality Chest Radiographic Delilah ging 02/22/2025 2:39 PM EDT Narrative 02/22/2025 2:56 PM EDT [address] [address] XRay Report Signed Patient: Lelo Plata MR# : [id number] : 1960 Acct:[id number] Age/Sex: 65 / F ADM Date: 02/22/25 Loc: HO.ED Attending Dr: Ordering Physician: Cortes Hammer MD Date of Service: 02/22/25 Procedure(s): XR chest 1V Accession Number(s): [id number] cc: Elizabeth Dunn MD; Cortes Hammer MD [...] 02/22/25 1453 DD/ 1439 TD/TT: 02/22/25 1445 Brake Holder: Procedure Note Donotuseinterpreter, Image - 02/22/2025 [id number] [place] [address] XRay Report Signed Patient: Lelo Plata RMR# : [id number] : 2Acct:[id number] Age/Sex: 65 / FADM Date: 02/22/25 Loc: HO.ED Attending Dr: Ordering Physician: Cortes Hammer MD Date of Service: 02/22/25 Procedure(s): XR chest 1V Accession Number(s): [id number] cc: Elizabeth Dunn MD; Cortes Hammer MD [...] 02/22/25 1453 DD/ 1439 TD/TT: 02/22/25 1445 Brake Holder: [facility] External Provider IMG XR PROCEDURES Final Result * High Sensitivity Troponin I (02/22/2025 2:22 PM EDT) TROPONIN I HIGH SENSITIVITY <2.7 <3.5 - 17.0 ng/L [facility] Comment:The [place] high sens itivity Troponin-I results should beused in conjunction with other diagnostic information suchas ECG, clinical observations and information, and patientsymptoms to aid in the diagnosis of AL. 02/22/2025 2:22 PM EDT 02/22/2025 2:25 PM EDT us Generic External Data Provider LAB BLOOD ORDERAB LES Final Result Performing Organization Address City/[facility]/ZIP Co de Phone Number [facility] [address] [place] [phone] * (ABNORMAL) Basic Metabolic Panel (02/22/2025 2:22 PM EDT) Sodium 139 135 - 145 mmol/L [facility] Potassium 4.0 3.3 - 5.1 mmol/L [facility] Comment:Slight Hemolysis.Int erpret result with caution. Chloride 106 96 - 108 mmol/L [facility] Carbon Dioxide 22 22 - 29 mmol/L [facility] Anion Gap 15 12 - 20 [facility] Urea Nitrogen (BUN) 20(H) 9 - 16 mg/dL [facility] Creatinine, Serum 0.85 0.5 - 1.4 mg/dL [facility] Creatinine Clr Calc Pharmacy 76.0 [facility] Comment:Provided height and weight: 165.1 cm,92.2 kg.eGFR (calculated from the MDRD study equation) and eCrCl(calculated from the Cockcroft-Gault equation) are based ondifferent parameters and may not yield comparable results.If eCrCl result is absurd, please check patient'sheight/weight. Estimated Glomerular Filt Rate >60 [facility] Comment:Chronic Kidney Disea se: Estimated GFR < 60 mL/min/1.91x7Mscutc Kidney Disease: Estimated GFR < 15 mL/min/1.73m2 Glucose 60 60 - 115 mg/dL [facility] Calcium 8.6 8.4 - 10.2 mg/dL [facility] 02/22/2025 2:22 PM EDT 02/22/2025 2:25 PM EDT us Generic External Data Provider LAB BLOOD ORDERAB LES Final Result Performing Organization Address City/[facility]/ZIP Co de Phone Number [facility] [address] [place] [address] [phone] * (ABNORMAL) CBC auto differential (02/22/2025 1:22 PM EDT) Only the most recent of2 resultswithin the time period is included. White Blood Count 11.8(H) 4.8 - 10.8 X10*3/uL [facility] Red Blood Count 4.72 4.20 - 5.50 X10*6/uL [facility] Hemoglobin 11.5(L) 12.0 - 16.0 g/dl [facility] Hematocrit 35.2(L) 37.0 - 47.0 % [facility] Mean Corpuscular Volume 74.6(L) 80.0 - 98.0 fL [facility] Mean Corpuscular Hemoglobin 24.4(L) 27.0 - 33.0 pg [facility] Mean Corpuscular HGB Conc 32.7 31.0 - 35.0 g/dl [facility] Red Cell Distribution Width 19.5(H) 11.0 - 16.0 % [facility] Platelet Count 222 160 - 400 X10*3/uL [facility] Mean Platelet Volume 11.7 9.4 - 12.3 fL [facility] Neutrophils Percent Auto 67.7 45 - 73 % [facility] Imm Gran Pct Auto 1.1(H) 0.0 - 0.4 % [facility] Lymphocytes Percent Auto 21.6 20 - 40 % [facility] Monocytes Percent Auto 8.5 2 - 11 % [facility] Eosinophils Percent Auto 0.8 0 - 4 % [facility] Basophils Percent Auto 0.3 0 - 2 % [facility] NRBC Pct Auto 0.0 0.0 - 0.2 /100WBC [facility] Neutrophils Absolute Auto 8.0 2.0 - 8.3 x10*3/uL [facility] Imm Gran Abs Auto 0.13(H) 0.00 - 0.03 X10*3/uL [facility] Lymphocytes Absolute Auto 2.6 1.2 - 4.9 X10*3/uL [facility] Monocytes Absolute Auto 1.0 0.1 - 1.2 X10*3/uL [facility] Eosinophils Absolute Auto 0.1 0.0 - 0.4 X10*3/uL [facility] Basophils Absolute Auto 0.0 0.0 - 0.2 X10*3/uL [facility] NRBC Abs Auto 0.000 0.0 - 0.012 X10*3/uL [facility] 02/22/2025 1:22 PM EDT 02/22/2025 1:25 PM EDT Generic External Data Provider LAB BLOOD ORDERAB LES Final Result Performing Organization Address [facility] Co de Phone Number [facility] [address] [place] [phone] * Prothrombin Time-INR (02/22/2025 1:22 PM EDT) Prothrombin Time 11.0 10.9 - 12.4 SEC [facility] INTERNATIONAL NORM RATIO 1.0 0.9 - 1.1 [facility] Comment:INTERNATIONAL NORMAL IZED RATIO (INR) [...] 1:22 PM EDT 02/22/2025 1:25 PM EDT [employer] External Data Provider LAB BLOOD ORDERAB LES Final Result Performing Organization Address [facility] Co de Phone Number [facility] [address] [place] [phone] * (ABNORMAL) Uric acid (02/18/2025 1:14 PM EDT) Uric Acid 6.3(H) 2.4 - 5.7 mg/dL [facility] Blood Venous blood specimen / Unknown 02/18/2025 1:14 PM EDT 02/18/2025 4:31 PM EDT us Elizabeth Goncalves MD LAB BLOOD ORDERABLES Final Result [facility] [address] [place] [address] [phone] * BI Mammogram Screening Tomosynthesis Bilateral (02/15/2025 9:05 AM EDT) Anatomical Region Laterality Modality Breast Bilateral Mammography 02/15/2025 9:05 AM EDT Narrative 02/22/2025 9:47 AM EDT [facility] [address] [place] [address] Mammography Report Signed Patient: Lelo Plata MR# : [id number] : 1960 Acct:[id number] Age/Sex: 65 / F ADM Date: 02/15/25 Loc: HO.MAMMO Attending Dr: Elizabeth Goncalves MD Ordering Physician: Elizabeth Dunn MD Results: 1Negative Date of Service: 02/15/25 Follow Up: 1 Year From [facility] ina Mammogram Procedure(s): MM tomosynthesis screening BI Accession Number(s): [id number] cc: Elizabeth Dunn MD Reason For Exam: [...] Trinity Dawn DO 02/22/2025 09:44 AM EDT RP Dictated By: Trinity Dawn DO Signed By: <Electronically signed by Trinity Dawn DO in OV> 02/22/2544 DD/ 4 TD/TT: 02/15/25927 Brake Holder: Procedure Note Donotuseinterpreter, Image - 02/22/20[facility] [address] [place], [place] [address] Mammography Report Signed Patient: Lelo Plata RMR# : [id number] : 1960cct:[id number] Age/Sex: 65 / FADM Date: 02/15/25 Loc: HO.MAMMO Attending Dr: Elizabeth Goncalves MD Ordering Physician: Elizabeth Dunn MDResults: 1Negative Date of Service: 02/15/25Follow Up: 1 Year From Orig inal Mammogram Procedure(s): MM tomosynthesis screening BI Accession Number(s): [id number] cc: Elizabeth Dunn MD Reason For Exam: [...] in OV> 02/22/2544 DD/ 4 TD/TT: 02/15/25927 Brake Holder: Elizabeth Goncalves MD IMG BI PROCEDURES Fin al Result * XR Foot 3+ Views Right (02/12/2025 1:30 AM EDT) Anatomical Region Laterality Modality Lower Extremities, Foot Right Radiogra phic Imaging 02/12/2025 1:30 AM EDT Narrative 02/12/2025 1:32 AM EDT [place] [address] XRay Report Signed Patient: Lelo Plata MR# : [id number] : 1960 Acct:[id number] Age/Sex: 64 / F ADM Date: 02/11/25 Loc: HO.ED Attending Dr: Ordering Physician: Perla Turner Date of Service: 02/12/25 Procedure(s): XR foot RT min 3V Accession Number(s): [id number] cc: Elizaebth Dunn MD; Perla Turner Reason for Exam: overlying erythema/swelling CLINICAL HISTORY: overlying erythema swelling 3 view right foot Comparison: None provided Findings: Bones are osteopenic. No ankle effusion. No radiopaque foreign body. Calcaneal plantar and Achilles enthesopathy noted. IMPRESSION: 1. No acute findings. This document has been electronically signed by: Rafael Cavralho MD, PHD on 02/12/2025 01:30:50 Dictated By: Rafael Carvalho MD Signed By: <Electronically signed by Rafael Carvalho MD in OV> 02/12/25131 DD/ 9 TD/TT: 02/12/25129 Brake Holder: Procedure Note Donotuseinterpreter, Image - 02/12/[address] [address] XRay Report Signed Patient: Lelo Plata RMR# : [id number] : 1960cct:[id number] Age/Sex: 64 / FADM Date: 02/11/25 Loc: HO.ED Attending Dr: Ordering Physician: Perla Turner Date of Service: 02/12/25 Procedure(s): XR foot RT min 3V Accession Number(s): [id number] cc: Elizabeth Dunn MD; Perla Turner Reason [...] in OV> 02/12/25131 DD/ 9 TD/TT: 02/12/25129 Brake Holder: [facility] External Provider IMG XR PROCEDURES Edited Result - Final * CT Abdomen Pelvis w/ Contrast (02/11/2025 11:22 PM EDT) Anatomical Region Laterality Modality Body, Pelvis, Abdomen Computed T omography 02/11/2025 11:2 2 PM EDT Narrative 02/11/2025 11:24 PM EDT [address] [address] [address] Scan Report Signed Patient: Lelo Plata R MR# : [id number] : 1960 Acct:[id number] Age/Sex: 64 / F ADM Date: 02/11/25 Loc: HO.ED Attending Dr: Ordering Physician: Perla Turner Date of Service: 02/11/25 Procedure(s): CT abdomen pelvis w IV con Accession Number(s): [id number] cc: Elizabeth Dunn MD; Perla Turner Report Number: [id number]: Total DLP = 0.00 mGy-cm Reason for [...] in OV> 02/11/252322 DD/ 21 TD/TT: 02/11/252321 Brake Holder: Procedure Note Donotuseinterpreter, Image - 02/11/[address] [address] [address] Scan Report Signed Patient: Lelo Plata RMR# : [id number] : 1960cct:[id number] Age/Sex: 64 / FADM Date: 02/11/25 Loc: HO.ED Attending Dr: Ordering Physician: Pelra Turner Date of Service: 02/11/25 Procedure(s): CT abdomen pelvis w IV con Accession Number(s): [id number] cc: Elizabeth Dunn MD; Perla Turner Report Number: [id number]: Total DLP = 0.00 mGy-cm Reason for Exam: severe constipation SCAN AT 2200 *no iv 2203* CLINICAL HISTORY: severe constipation SCAN AT 2200 [...] in OV> 02/11/252322 DD/ 21 TD/TT: 02/11/252321 Brake Holder: [facility] External Provider IMG CT PROCEDURES Edited Result - Final * Urinalysis, Complete, with Reflex to Culture (02/11/2025 10:50 PM EDT) Color Urine Yellow [facility] Appearance Urine Clear [facility] PH 5.0 5.0 - 9.0 [facility] Glucose Urine UA Negative Negative mg/dL [facility] Urine Blood Negative Negative [facility] Specific [place] - Urine 1.020 1.005 - 1.025 [facility] Urine Protein Negative Neg-Trace mg/dL [facility] Urine Ketones Negative Negative mg/dL [facility] Nitrite Urine Negative Negative [facility] Leukocyte Esterase Urine Negative Negative [facility] RBC Urine 0-2 0 - 2 /HPF [facility] Urine WBC 0-5 0 - 5 /HPF [facility] Urine Squamous Epithelial Cell 0-2 0 - 2 /HPF [facility] Urine Bacteria None Seen None Seen [facility] Hyaline Casts, Urine 0-2 0 - 2 /LPF [facility] 02/11/2025 10:5 0 PM EDT 02/11/2025 10:54 PM EDT Narrative [facility] - 02/11/2025 11:05 PM EDT 2248Urine, Clean Catch us Generic External Data Provider LAB URINE ORDERAB LES Final Result Performing Organization Address City/State/[facility] Co de Phone Number [facility] [address] [place] [phone] * XR KUB and Upright 2 Views (02/11/2025 7:34 PM EDT) Anatomical Region Laterality Modality Radiographic Delilah ging 02/11/2025 7:34 PM EDT Narrative 02/11/2025 7:35 PM EDT [address] [address] XRay Report Signed Patient: Lelo Plata MR# : [id number] : 1960 Acct:[id number] Age/Sex: 64 / F ADM Date: 02/11/25 Loc: HO.ED Attending Dr: Ordering Physician: Perla Turner Date of Service: 02/11/25 Procedure(s): XR KUB Accession Number(s): [id number] cc: Elizabeth Dunn MD; Perla Turner Reason for Exam: constipation CLINICAL HISTORY: constipation Abdominal radiographs Comparison: CT/REG/DE/SR - CT ABDOMEN PELVIS W IV CON [...] in OV> 02/11/251933 DD/ 33 TD/TT: 02/11/251933 Brake Holder: Procedure Note Donotuseinterpreter, Image - 02/11/[address] [address] XRay Report Signed Patient: Lelo Plata RMR# : [id number] : 1960cct:[id number] Age/Sex: 64 / FADM Date: 02/11/25 Loc: HO.ED Attending Dr: Ordering Physician: Perla Turner Date of Service: 02/11/25 Procedure(s): XR KUB Accession Number(s): [id number] cc: Elizabeth Dunn MD; Perla Turner Reason for Exam: constipation CLINICAL HISTORY: constipation Abdominal radiographs Comparison: CT/REG/DE/SR - CT ABDOMEN PELVIS W IV CON [...] in OV> 02/11/251933 DD/ 33 TD/TT: 02/11/251933 Brake Holder: us [facility] External Provider IMG XR PROCEDURES Final Result * VASC US Lower Extremity Venous Duplex Bilateral (02/07/2025 9:39 PM EDT) 02/07/2025 9:39 PM EDT Narrative [facility] - 02/07/2025 9:41 PM EDT [address] [address] Ultrasound Report Signed Patient: Lelo Plata R MR# : [id number] : 1960 Acct:[id number] Age/Sex: 64 / F ADM Date: 02/07/25 Loc: HO.ED Attending Dr: Ordering Physician: Kaitlynn Wang Date of Service: 02/07/25 Procedure(s): US venous duplex LE Accession Number(s): [id number] cc: Elizabeth Dunn MD; Kaitlynn Wang Reason [...] in OV> 02/07/252139 DD/ 38 TD/TT: 02/07/252138 Brake Holder: Procedure Note Donotuseinterpreter, Image - 02/07/[address] [address] Ultrasound Report Signed Patient: Lelo Plata RMR# : [id number] : 1960cct:[id number] Age/Sex: 64 / FADM Date: 02/07/25 Loc: HO.ED Attending Dr: Ordering Physician: Kaitlynn Wang Date of Service: 02/07/25 Procedure(s): US venous duplex LE BI Accession Number(s): [id number] cc: Elizabeth Dunn MD; Kaitlynn Wang Reason [...] in OV> 02/07/252139 DD/ 38 TD/TT: 02/07/252138 Brake Holder: [facility] External Provider CV VASC ULAR PROCEDURES Final Result [facility] [address] [place] [address] [phone] * NT-proBNP (02/07/2025 8:52 PM EDT) NT-proBNP 36.0 <300 pg/mL [facility] [facility] Comment:Reference Range:Age Group (years) NT-proBNP (pg/ml) InterpretationAll <300 Negative: HF unlikelyFor patients presenting to the ED with clinical suspicion ofnew onset or worsening HF, see below:18 to <50 >299.9 to <450.0 Grayzone: [id number] to 75 >299.9 to <900.0 other causes of>75 >299.9 to <1800.0 NT-proBNP hbsacircq96 to <50 >449.9 Positive: HF [id number] >899.9>75 >1799.9Note: Elevated NT-proBNP levels should be interpreted inthe context of other clinical information. 02/07/2025 8:52 PM EDT 02/07/2025 8:57 PM EDT Generic External Data Provider LAB BLOOD ORDERAB LES Final Result Performing Organization Address [facility] Co de Phone Number [facility] [address] [place] [phone] * (ABNORMAL) Sed Rate by Modified Westergren (02/07/2025 8:52 PM EDT) Erythrocyte Sedimentation Rate 25(H) 0 - 20 MM/HR [facility] Comment:Patients with polycy themia and many hemoglobin abnormalitiesmay have depressed sed rates whereas patients with anemiamay have elevated sed rates. 02/07/2025 8:52 PM EDT 02/07/2025 8:57 PM EDT Generic External Data Provider LAB BLOOD ORDERAB LES Final Result Performing Organization Address [facility] Co de Phone Number [facility] [address] [place] [phone] * (ABNORMAL) C-reactive Protein (02/07/2025 8:52 PM EDT) Pathologist [facility] C Reactive Protein 1.09(H) < or = 0.50 mg/dL [facility] 02/07/2025 8:52 PM EDT 02/07/2025 8:57 PM EDT Generic External Data Provider LAB BLOOD ORDERAB LES Final Result Performing Organization Address [facility] Co de Phone Number [facility] [address] [place] [phone] * Magnesium (02/07/2025 8:52 PM EDT) Magnesium 2.1 1.6 - 2.6 mg/dL [facility] 02/07/2025 8:52 PM EDT 02/07/2025 8:57 PM EDT us Generic External Data Provider LAB BLOOD ORDERAB LES Final Result [facility] [address] [place] [address] [phone] * Comprehensive Metabolic Panel (02/07/2025 8:52 PM EDT) Sodium 143 135 - 145 mmol/L [facility] Potassium 4.5 3.3 - 5.1 mmol/L [facility] Chloride 103 96 - 108 mmol/L [facility] Carbon Dioxide 28 22 - 29 mmol/L [facility] Anion Gap 17 12 - 20 [facility] Urea Nitrogen (BUN) 16 9 - 16 mg/dL [facility] Creatinine, Serum 1.06 0.5 - 1.4 mg/dL [facility] Creatinine Clr Calc Pharmacy 62.1 [facility] Comment:Provided height and weight: 165.1 cm,93.44 kg.eGFR (calculated from the MDRD study equation) and eCrCl(calculated from the Cockcroft-Gault equation) are based ondifferent parameters and may not yield comparable results.If eCrCl result is absurd, please check patient'sheight/weight. Estimated Glomerular Filt Rate 53 [facility] Comment:Chronic Kidney Disea se: Estimated GFR < 60 mL/min/1.62r7[place] Kidney Disease: Estimated GFR < 15 mL/min/1.73m2 Glucose 77 60 - 115 mg/dL [facility] Calcium 9.2 8.4 - 10.2 mg/dL [facility] Bilirubin, Total 0.2 0.0 - 1.0 mg/dL [facility] Aspartate Amino Transferase 19 5 - 31 U/L [facility] Alanine Aminotransferase 8 0 - 31 U/L [facility] Total Protein 7.1 6.5 - 8.0 g/dL [facility] Albumin Level 4.2 3.5 - 5.0 g/dL [facility] Alkaline Phosphatase 72 39 - 117 U/L [facility] 02/07/2025 8:52 PM EDT 02/07/2025 8:57 PM EDT us Generic External Data Provider LAB BLOOD ORDERAB LES Final Result [facility] [address] [place] [address] [phone] * POCT Hgb A1c (01/26/2025 3:42 [...] 8:25 AM EDT) Creatinine, Urine 223.33 mg/dL [facility] Microalbumin Urine 9.0 mg/L [facility] Microalbum Creatinine Ratio Ur 4.0 <30 ug/mg cr [facility] Comment:Albumin/Creatinine R atio Reference Ranges: Normal: < 30 ug/mg creatinine Microalbuminuria: 30 - 300 ug/mg creatinineClinical Albuminuria: > 300 ug/mg creatinine Urine (Urine, Random) 01/05/2024 8:25 AM EDT 01/05/2024 11:48 AM EDT us Elizabeth Goncalves MD LAB URINE ORDERABLES Final Result [facility] [address] [place] [phone] * (ABNORMAL) Lipid Panel with Reflex to Direct LDL (01/05/2024 8:22 AM EDT) Triglycerides 180(H) <150 mg/dL [facility] Comment:Desirable Triglyceri de: less than 150 mg/dLBorderline High Triglyceride 150-199 mg/dLHigh Triglyceride: 200-499 mg/dLVery High Triglyceride: greater than or equal to 5OO mg/dL Cholesterol 240(H) <200 mg/dL [facility] Comment:Desirable Cholestero l: less than 200 mg/dLBorderline High Cholesterol: 200-239 mg/dLHigh Cholesterol: greater than 239 mg/dL LDL Cholesterol Calculated 138(H) <100 mg/dL [facility] Comment:Desirable LDL: less than 100 mg/dLNear Optimal/Above Optimal LDL: 110- 129 mg/dLBorderline High LDL: 130-159 mg/dLHigh LDL: 160-189 mg/dLVery High LDL: greater than or equal to 190 mg/dL HDL Cholesterol 66 >40 mg/dL [facility] Comment:Desirable HDL: great er than 40 mg/dL Note: This HDL assay may give artificially low results in patients with liver disease. Blood 01/05/2024 8:22 AM EDT 01/05/2024 11:52 AM EDT us Elizabeth Goncalves MD LAB BLOOD ORDERABLES Final Result [facility] [address] [place] [address] [phone] * Hm Colonoscopy (12/10/2022) Historical Provider HEALTH MAINTENANCE Final Result * HEPATITIS C AB W/REFL TO HCV RNA, QN, PCR (10/23/2020 10:08 AM EDT) HEPATITIS C ANTIBODY NON-REACT JOSE NON-REACT JOSE [facility] INDEX 0.01 <1.00 [facility] Comment: HCV antibody was non-reactive. There is no laboratory evidence of HCV infection. In most cases, no further action is required. However, if recent HCV exposure is suspected, a test for HCV RNA (test code 35519) is suggested. For additional information please refer to http://[employer].Taggify/faq/KEP34g3 (This link is being provided for informational/ educational purposes only.) 10/23/2020 10:0 8 AM EDT Elizabeth Goncalves MD HISTORICAL/NON ORDERA BLE LABS Final Result [facility] [address] * HIV 1/2 ANTIGEN/ANTIBODY,FOURTH GENERATION W/RFL (10/23/2020 10:08 AM EDT) HIV-1/2 ANTIGEN AND ANTIBODIES, 4TH GENERATION W/ REFLEX NON-REACT JOSE NON-REACT JOSE [facility] Comment: HIV-1 antigen and HIV-1/HIV-2 [...] purpose. For additional information please refer to http://[employer]/faq/TFZ901 (This link is being provided for informational/ educational purposes only.) The performance of this assay has not been clinically validated in patients less than 2 years old. 10/23/2020 10:0 8 AM EDT Elizabeth Goncalves MD LAB BLOOD ORDERABLES Final Result [facility] [address] from Last 3 Months or Most Recently Relevant to Health Maintenance Insurance [facility] C3 Care Teams Marine Insurance Claim Examiner Relationship Specialty Start Date End Date Elizabeth Dunn MD [address] [place] [phone] PCP - General Family Medicine 03/17/18 Kai Bowden, RN [address] [place] [address] Registered Nurse Family Medicine 02/08/25 Manuela Melendez 02/08/25 Thao Barnhart Kaitara TarakaColor Mixer 02/07/23
--- OUTSIDE RECORDS SUMMARY | 2025-03-13 15:40 | XMS_ITS | Patient Health Record ---
Author Organization [facility] Address [address] [place] [address] Care Team Providers Care Freelance Graphic Designer Name Role Phone SHAHRZAD ENRIQUE Primary Care Provider Fracisco Curz [phone] Allergies Allergen (clinical drug ingredient) Drug/Non Drug [...] Problem Screening for malignant neoplasm of colon (639948389) Encounter for screening for malignant neoplasm of colon (Z12.11) Active confirmed Problem History of adenomatous polyp of colon (057729036) History of adenomatous polyp of colon (Z86.010) Active confirmed Problem Screening for malignant neoplasm of rectum (643848066) Encounter for screening for malignant neoplasm of rectum (Z12.12) Active confirmed Problem Family History of Cancer of Colon (Situation) (001633243) Family history of colon cancer (Z80.0) Active confirmed Problem Long-term current use of drug therapy (180663473) Long-term use of high-risk medication (Z79.899) Active confirmed Plan Of Treatment Pending Test Test Name Order Date GI BIOPSY 02/05/2016 Future Test Test Name Order Date COLONOSCOPY 10/31/2015 Insurance Providers Payer Name Payer Address Payer Phone Subscriber Number Group Number Insured Name Patient Relationship to Insured Coverage Start Date Coverage End Date [facility] [address] [facility] [place] [id number] MICHAEL SUGGS Self - patient is the insured MEDICAID OF [employer] [address] [place] RAMIREZ [id number] MICHAEL SUGGS Self - patient is the insured Medical (General) History Medical History History ICD Code Colonoscopy 2004 and 2009 with small tub ular adenomas removed Depression/Anxiety Fibromyalgia Fluid retention Denies ME,DM,CVA,Lung disease,renal dise ase Surgical History Surgery Date(Month/Year) Laparoscopic gastric bypass in 2005 Breast reduction Panniculectomy Hysterectomy with left oophorectomy Neck surgery--for a disc
--- OUTSIDE RECORDS SUMMARY | 2025-03-13 15:40 | XMS_ITS | Encounter Summary ---
Author Organization [employer] Address [address] [place] [address] 7t [place] [address] Care Team Providers Care Bass Viol Repairer Name Role Phone Elizabeth Dunn MD Primary Care Provide r Kai Bowden RN Unavailable [phone] Manuela Melendez Unavailable Reason for Visit * Reason Onset Date Comments Med Refill 12/17/2022 Encounter Details Date Type Department Care Team (Late st Contact Info) Description 12/17/2022 Telephone [facility] MEDICINE [address] [place] [address] Elizabeth Dunn MD [address] [place], [place] [phone] Med Refill Social History Tobacco Use Types [...] Info) Description 03/22/2025 2:30 PM EST Telemedicine [facility] MEDICINE [address] [place] [address] Elizabeth Dunn MD [address] [place] [address] 06/07/2025 2:30 PM EST Office Visit [facility] OPTOMETRY [address] [place], [place] [phone] Mulu Osman, OD [address] [place] [address] documented as of this encounter Visit Diagnoses Not on filedocumented in this encounter Additional Health Concerns Assessment Noted Time PHQ-9 Depression Total Score: 0 08/03/19 23 3:13 PM EDT documented as of this encounter Care Teams Bass Viol Repairer Relationship Specialty Start Date End Date Elizabeth Dunn MD [address] [place] [address] PCP - General Family Medicine 03/17/18 Kai Bowden, RN [address] [place] [address] Registered Nurse Family Medicine 02/08/25 Manuela Melendez 02/08/25 Thao Barnhart Olive Brine TesterBranch Service Specialist 02/07/23 documented as of this encounter
--- OUTSIDE RECORDS SUMMARY | 2025-03-13 15:40 | XMS_ITS | Encounter Summary ---
Author Organization [employer] Address [address] [facility] 7t [place] [address] Care Team Providers Care Buffer Nickel Name Role Phone Elizabeth Dunn MD Primary Care Provide r Kai Bowden RN Unavailable [phone] Manuela Melendez Unavailable Reason for Visit * Reason Comments Med Refill Encounter Details Date Type Department Care Team ([facility] st Contact Info) Description 12/15/2024 Refill [facility] [address] [place] [address] Elizabeth Dunn MD [address] [place] [address] Social History Tobacco Use Types Packs/Day Years [...] your housing situation today? I have katia manriquze 08/20/[address] you li [...] EST Telemedicine [facility] [address] [place] [address] Elizabeth Dunn MD [address] [place] [address] 06/07/2025 2:30 PM EST Office Visit [facility] OPTOMETRY [address] [place] [address] Dawson, Mulu, OD [address] [place] [address] documented as of this encounter Visit Diagnoses Not on filedocumented in this encounter Additional Health Concerns Assessment Noted Time PHQ-9 Depression Total Score: 0 08/20/19 24 2:32 PM EDT documented as of this encounter Care Teams Buffer Nickel Relationship Specialty Start Date End Date Elizabeth Dunn MD [address] [place] [address] PCP - General Family Medicine 03/17/18 Kai Bwoden RN [address] [place] [address] Registered Nurse Family Medicine 02/08/25 Manuela Melendez 02/08/25 Thao Barnhart Casserole PreparerRisk Management Consultant 02/07/23 documented as of this encounter
--- OUTSIDE RECORDS SUMMARY | 2025-03-13 15:40 | XMS_ITS | Encounter Summary ---
Author Organization [employer] Address [address] [place] [address] [address] [place] [address] Care Team Providers Care Reforestation Worker Name Role Phone Elizabeth Dunn MD Primary Care Provide r Kai Bowden RN Unavailable [phone] Manuela Melendez Unavailable Reason for Visit * Reason Onset Date Comments Med Refill 12/04/2022 Encounter Details Date Type Department Care Team (Late st Contact Info) Description 12/04/2022 Telephone [facility] MEDICINE [address] [place] [address] Elizabeth Dunn MD [address] [place], [place] [phone] Med Refill Social History Tobacco Use Types [...] Telemedicine [facility] MEDICINE [address] [place] [address] Elizabeth Dunn MD [address] [place] [address] 06/07/2025 2:30 PM EST Office Visit [facility] OPTOMETRY [address] [place], [place] [phone] Mulu Osman, OD [address] [place] [address] documented as of this encounter Visit Diagnoses Not on filedocumented in this encounter Additional Health Concerns Assessment Noted Time PHQ-9 Depression Total Score: 0 08/03/19 23 3:13 PM EDT documented as of this encounter Care Teams Reforestation Worker Relationship Specialty Start Date End Date Elizabeth Dunn MD [address] [place] [address] PCP - General Family Medicine 03/17/18 Kai Bowden, RN [address] [place] [address] Registered Nurse Family Medicine 02/08/25 Manuela Melendze 02/08/25 Thao Barnhart Pipe RollerGelatin Maker Utility 02/07/23 documented as of this encounter
--- OUTSIDE RECORDS SUMMARY | 2025-03-13 15:40 | XMS_ITS | Encounter Summary ---
Author Organization [employer] Address [address] [facility] 7t h Floor [place] [phone] Care Team Providers Care Wound Care Center Consultant Name Role Phone Elizabeth Dunn MD Primary Care Provide r Kai Bowden RN Unavailable [phone] Manuela Melendez Unavailable Encounter Details Date Type Department Care Team (Late st Contact Info) Description 01/12/2025 Orders Only [facility] MEDICINE [address] [place] [address] Elizabeth Dunn MD [address] [place] [address] Social History Tobacco Use Types Packs/Day Years [...] Info) Description 03/22/2025 2:30 PM EST Telemedicine [facility] MEDICINE [address] [place] [address] Elizabeth Dunn MD [address] [place] [address] 06/07/2025 2:30 PM EST Office Visit [facility] OPTOMETRY [address] [place] [address] Dawson, Mulu, OD [address] [place] [address] documented as of this encounter Visit Diagnoses Not on filedocumented in this encounter Additional Health Concerns Assessment Noted Time PHQ-9 Depression Total Score: 0 08/20/19 24 2:32 PM EDT documented as of this encounter Care Teams Wound Care Center Consultant Relationship Specialty Start Date End Date Elizabeth Dunn MD [address] [place] [address] PCP - General Family Medicine 03/17/18 Kai Bowden, MATT [address] [place] [address] Registered Nurse Family Medicine 02/08/25 Manuela Melendez 02/08/25 Thao Barnhart Warp HangerTermite Control Service Representative 02/07/23 documented as of this encounter
--- OUTSIDE RECORDS SUMMARY | 2025-03-13 15:40 | XMS_ITS | Encounter Summary ---
Author Organization [employer] Address [address] [place] [address] 7t h Floor [place] [phone] Care Team Providers Care Pig Casting Machine Operator Name Role Phone Elizabeth Dunn MD Primary Care Provide r Kai Bowden RN Unavailable [phone] Manuela Melendez Unavailable Reason for Visit * Reason Onset Date Comments Prior Authorization 01/14/2025 PA: Augusto und Encounter Details Date Type Department Care Team ([facility] st Contact Info) Description 01/14/2025 Telephone [facility] MEDICINE [address] [place] [address] Elizabeth Dunn MD [address] [place], [place] [phone] Prior Authorization ( PA: Trish) Social History [...] back to discuss update Contact pt at [phone] (malaysian) * Telephone Encounter - Lo Clemens - 01/14/2025 11:55 AM EDT Tc from pt stating a PA is needed for Tirzepatide-Weight Management (Zepbound) 10 MG/0.5ML solutionauto-injector Contact pt at [phone] (malaysian) documented in this encounter Plan of Treatment Upcoming Encounters Date Type Department Care Team (Late st Contact Info) Description 03/22/2025 2:30 PM EST Telemedicine [facility] MEDICINE [address] [place] [address] Elizabeth Dunn MD [address] [place] [address] 06/07/2025 2:30 PM EST Office Visit [facility] OPTOMETRY [address] [place], [place] [phone] Mulu Osman, OD [address] [place] [address] documented as of this encounter Visit Diagnoses Not on filedocumented in this encounter Additional Health Concerns Assessment Noted Time PHQ-9 Depression Total Score: 0 08/20/19 24 2:32 PM EDT documented as of this encounter Care Teams Pig Casting Machine Operator Relationship Specialty Start Date End Date Elizabeth Dunn MD [address] [place] [address] PCP - General Family Medicine 03/17/18 Kai Bowden, RN [address] [place] [address] Registered Nurse Family Medicine 02/08/25 Manuela Melendez 02/08/25 Thao Barnhart Rn Clinical AppealsSales And Service Consultant 02/07/23 documented as of this encounter
--- OUTSIDE RECORDS SUMMARY | 2025-03-13 15:40 | XMS_ITS | Clinical Summary ---
Author Organization [address] [facility] Address [address] [place] [address] Phone Care Team Providers Care Salvage Engineering Technician Name Role Phone Elizabeth Dunn MD [...] sinusitis 03/18/2024 Microcytic anemia 03/18/2024 Benzodiazepine dependence ([facility] V24, [facility] V28) 03/18/2024 Blurring of visual image 03/18/2024 Chronic idiopathic constipation 03/18/2024 T2DM (type 2 diabetes mellitus) ([facility] V24, CM S/[facility] V28) 03/18/2024 Injury of kidney 03/18/2024 Tinnitus [...] topic Insurance MEDICAID - [place] Care Teams Salvage Engineering Technician Relationship Specialty Start Date End Date Elizabeth Dunn MD [address] [phone] PCP - General Internal Medicine 02/12/24
[2025-03-13 15:41] LABS: MANUAL DIFF FLAG NO
[2025-03-13 15:42] LABS: Hematocrit 37.4 % (37.0-47.0); Hemoglobin 11.8 g/dl (12.0-16.0); Imm Gran Abs Auto 0.03 X10*3/uL (0.00-0.03); Imm Gran Pct Auto 0.4 % (0.0-0.4); Lymphocytes Absolute Auto 2.5 X10*3/uL (1.2-4.9); Mean Corpuscular HGB Conc 31.6 g/dl (31.0-35.0); Mean Corpuscular Hemoglobin 24.1 pg (27.0-33.0); Mean Corpuscular Volume 76.5 fL (80.0-98.0); NRBC Abs Auto 0.000 X10*3/uL (0.0-0.012); NRBC Pct Auto 0.0 /100WBC (0.0-0.2); Platelet Count 261 X10*3/uL (160-400); Red Blood Count 4.89 X10*6/uL (4.20-5.50); White Blood Count 7.1 X10*3/uL (4.8-10.8)
[2025-03-13 15:56] LABS: Alanine Aminotransferase 13 U/L (0-31); Albumin Level 4.4 g/dL (3.5-5.0); Alkaline Phosphatase 81 U/L (39-117); Anion Gap 17 (12-20); Aspartate Amino Transferase 24 U/L (5-31); Blood Urea Nitrogen 20 mg/dL (9-16); Calcium 8.9 mg/dL (8.4-10.2); Carbon Dioxide 25 mmol/L (22-29); Chloride 105 mmol/L (96-108); Creatinine Clr Calc Pharmacy 53.5; Estimated Glomerular Filt Rate 53; Potassium 3.7 mmol/L (3.3-5.1); Sodium 143 mmol/L (135-145); Total Protein 7.4 g/dL (6.5-8.0)
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
[2025-03-13 23:45] LABS: Appearance Urine Clear; Glucose Urine UA Negative (Negative); PH 5.0 (5.0-9.0); Specific Gravity - Urine 1.020 (1.005-1.025); UMIC TRIGGER UACC YES
[2025-03-13 23:55] LABS: Cannabinoid Screen Urine Not Detected (Not Detect)
--- NOTE | 2025-03-14 01:00 | PC.NURSE ---
Took over care from MATT Stratton, pt sleeping no sign of distress.
--- NOTE | 2025-03-14 02:09 | PC.NURSE ---
pt sleeping at this time.
--- NOTE | 2025-03-14 06:27 | PC.NURSE ---
pt sleeping at this time, no sign of distress.
--- NOTE | 2025-03-14 08:32 | ECG_ITS ---
Test Reason : CHECK QTC Blood Pressure : */* mmHG Vent. Rate : 76 BPM Atrial Rate : 76 BPM P-R Int : 188 ms QRS Dur : 98 ms QT Int : 436 ms P-R-T Axes : 66 -33 37 degrees QTcB Int : 490 ms Normal sinus rhythm Left axis deviation Minimal voltage criteria for LVH, may be normal variant ( R in aVL ) Possible Anterior infarct , age undetermined Abnormal ECG When compared with ECG of 04-Mar-2025 14:10, Significant changes have occurred Referred By: Lindy Holder Electronically Signed By: Kristofer Pitts
[2025-03-14] MEDS: Venlafaxine HCl ER 150 MG CAP.ER.24H 300 MG PO (08:51)
[2025-03-14 08:54] VITALS: BP 101/59; PULSE 70; RESP 14; TEMP 36.2; O2SAT 92
--- NOTE | 2025-03-14 09:29 | PC.NURSE ---
Assumed care, report received. Pt is calm and cooperative, she is provided with breakfast and meds. She is resting quietly in her bed.
--- NOTE | 2025-03-14 13:22 | MHC.EDTECH ---
patient has showered and brushed her teeth at 1:20pm today .
[2025-03-14 15:03] VITALS: BP 109/64; PULSE 74; RESP 14; TEMP 36.6; O2SAT 96
--- NOTE | 2025-03-14 16:26 | PC.NURSE ---
Pt is reporting alot of anxiety and feeling angry and frustrated for being here, she states the meds given have not helped. MD notified, pt is provided ativan.
[2025-03-14 17:40] VITALS: BP 125/72; PULSE 82; RESP 16; TEMP 36.3; O2SAT 96; BMI 33.5
--- NOTE | 2025-03-14 17:41 | PC.NURSE ---
Pt arrived at 1722 from [facility]. Pt changed over with two RNs, reporting how tired she was and asking to go immediately to bed. Pt reports having no sleep despite having taken several prns (including 2mg ativan at 1621). Pt oriented to the unit, LP notified of admission, deferred until next shift.
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
[2025-03-14 20:55] VITALS: BP 116/71; PULSE 90; TEMP 36.1; O2SAT 96
[2025-03-14 21:23] LABS: Glucose, Whole Blood 90 mg/dL (60-115)
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
[2025-03-15 08:17] LABS: Glucose, Whole Blood 99 mg/dL (60-115)
--- NOTE | 2025-03-15 08:31 | HO.PM.IMCN ---
History of Present Illness Data of Consult Service Date: 03/15/25 Primary Care Provider: Elizabeth Goncalves MD [facility] Reason for consult: Medical consult 65-year-old female with a past medical history of diabetes with peripheral neuropathy, PTSD, chronic pain syndrome, major depressive disorder, asthma, fibromyalgia, migraines, and hallucinations, presenting to the ED with worsening hallucinations seeing and hearing things that are not there. CBC revealed mild anemia, no leukocytosis. No electrolyte imbalances, no evidence of renal or liver injury, no evidence of UTI. Tox screen negative. Patient was medically cleared and seen by the care team in now admitted to inpatient psych for further care and treatment. On exam she has no medical concerns. Review of Systems Review of Systems: Denies any shortness of breath, chest pain, headaches, dysuria, abdominal pain or discomfort, nausea, vomiting or diarrhea. Denies fever or chills. [facility] Medical History Weakness Arthritis History of brain inflammation Protrusion of lumbar intervertebral disc Tinnitus Venous insufficiency Osteoarthritis Loss of hair History of headache Fibromyositis Fatigue Hyperlipidemia HTN (hypertension) Continuous opioid dependence Sinusitis Anemia Anxiety Diverticulosis Chronic idiopathic constipation Migraine Asthma Depression Diabetes 1.5, managed as type 2 Fibromyalgia Family History Mother Colon cancer Surgical History History of back surgery History of esophagogastroduodenoscopy (EGD) S/P panniculectomy Hx of hysterectomy Hx of oophorectomy Hx of bilateral breast reduction surgery H/O colonoscopy History of pubovaginal sling Gastric bypass status for obesity Social History Household Members: Spouse Household Members Other:: lives alone Housing: House Are you a primary behavioral health care coordinator to a significant other at home: No Alcohol intake: never Comment: IV infiltrated Patient Tobacco Use Status: Never used Tobacco Currently Displaying Signs/Symptoms of Drug Intoxication Withdrawal: No Spiritual Healthcare Practices: Unknown, Pt unable to participate due to mental status Sikh Healthcare Practices: Unknown, Pt unable to participate due to mental status Cultural Healthcare Practices: Unknown, Pt unable to participate due to mental status Advance Directives: Yes Advance Directives Information Provided: No Advance Directives on File: Yes Advance Directives Date on File: 07/24/23 Do you have thoughts of harming others: None Do you have a plan to hurt others: No Plan Recently lost weight without trying: Unsure How much weight loss: Unsure Nutrition Risks: No Nutritional Risk Patient : No : No Poor oral hygiene: No service: No Current occupational status: disabled Sexual orientation: Straight/Heterosexual Gender identity: Female Meds Allergies Allergy/AdvReac Type Severity Reaction Status Date / Time morphine (MORPHINE) Allergy Intermediate PALPITATIONS, Verified 03/13/25 15:12 tachicardia quetiapine (Seroquel) Allergy Intermediate Aggitation Verified 03/13/25 15:12 orphenadrine (ORPHENADRINE) AdvReac Intermediate RAPID Verified 03/13/25 15:12 HEART RATE Active Medications: Current Medications Acetaminophen (Acetaminophen 325 Mg Tablet) 650 mg PO Q6H PRN PRN Reason: Headache/Pain, Scale 1-10 Al Hydroxide/Mg Hydroxide (Magnesium Hydrox/Alum Hydrox 30 Ml Oral.Susp) 30 ml PO Q6H PRN PRN Reason: Heartburn/Nausea Aripiprazole (Aripiprazole 2 Mg Tablet) 2 mg PO DAILY [facility] Last Admin: 03/14/25 08:52 Dose: 2 mg Clonazepam (Clonazepam 0.5 Mg Tablet) 0.5 mg PO DAILY PRN PRN Reason: Anxiety Last Admin: 03/14/25 14:19 Dose: 0.5 mg Clonazepam (Clonazepam 1 Mg Tablet) 1 mg PO BID [facility] Last Admin: 03/14/25 21:38 Dose: 1 mg Dextrose (Dextrose 50 % 25 Gm/50 Ml Syringe) 25 gm IVPUSH Q15M PRN; Protocol PRN Reason: per Hypoglycemia Standing Ord. Glucose (Glucose Gel 15 Gm Gel..Gram.) 15 gm PO Q15M PRN; Protocol PRN Reason: per Hypoglycemia Standing Ord. Hydrochlorothiazide (Hydrochlorothiazide 50 Mg Tablet) 50 mg PO DAILY [facility]; Protocol Last Admin: 03/14/25 08:52 Dose: 50 mg Insulin Human Lispro (Insulin Lispro 100 Unit/Ml 3 Ml Vial) 0 unit SUBCUT QIDACHS [facility]; Protocol Last Admin: 03/14/25 21:37 Dose: Not Given Magnesium Hydroxide (Milk Of Magnesia 30 Ml Oral.Susp) 30 ml PO DAILY PRN PRN Reason: Constipation Melatonin (Melatonin 3 Mg Tablet) 9 mg PO BEDTIME PRN PRN Reason: Insomnia Last Admin: 03/14/25 21:40 Dose: 9 mg Metformin HCl (Metformin Hcl Er 500 Mg Tab.Er.24h) 500 mg PO BIDWM [facility] Last Admin: 03/14/25 17:50 Dose: 500 mg Nicotine Polacrilex (Nicotine Polacrilex 2 Mg Gum) 4 mg BUCCAL Q2H PRN PRN Reason: Nicotine Cravings Pregabalin (Pregabalin 75 Mg Capsule) 225 mg PO BID [facility] Last Admin: 03/14/25 21:38 Dose: 225 mg Trazodone HCl (Trazodone Hcl 100 Mg Tablet) 300 mg PO BEDTIME [facility] Last Admin: 03/14/25 21:38 Dose: 300 mg Venlafaxine HCl (Venlafaxine Hcl Er 150 Mg Cap.Er.24h) 300 mg PO DAILY [facility] Last Admin: 03/14/25 08:51 Dose: 300 mg Home Medications ?Medication ?Instructions ?Recorded ?Confirmed ?Last Taken ?Type trazodone 100 mg tablet 300 mg PO BEDTIME 01/23/24 03/13/25 03/12/25 History venlafaxine 150 mg 300 mg PO QAM 01/23/24 03/13/25 03/12/25 History capsule,extended release 24 hr aripiprazole 2 mg tablet 2 mg PO DAILY 03/13/25 03/13/25 03/12/25 History clonazepam 0.5 mg tablet 0.5 mg PO DAILY PRN Anxiety 03/13/25 03/13/25 03/12/25 History melatonin 5 mg tablet 10 mg PO BEDTIME PRN Insomnia 03/13/25 03/13/25 03/12/25 History pregabalin 225 mg capsule 225 mg PO BID 03/13/25 03/13/25 03/12/25 History Physical Exam Vital Signs and Narrative: Vital Signs: Last Vital Signs Temp 96.9 F 03/14/25 20:55 Pulse 90 03/14/25 20:55 Resp 16 03/14/25 17:40 BP 116/71 03/14/25 20:55 Pulse Ox 96 03/14/25 20:55 O2 Del Method Room Air 03/14/25 20:55 BMI result Body Mass Index 33.5 Alert and oriented X3, calm and cooperative. Answers questions. Neuro: CN II-X11 intact, no deficits, visual acuity intact EYES: PERRLA, EOM intact ENT: Hearing intact, MMM Cardiac: S1 S2 RRR, No ectopy Pulmonary: lungs clear to auscultation, No increased WOB. Abdominal: BS active in all 4 quadrants, no guarding or tenderness MSK: Strength 5/5 upper and lower extremities : Deferred Extremities: No edema in lower extremities Psych: Mood stable, Quiet and cooperative. Skin: Warm and dry, Intact Results Labs 03/13/25 15:35 03/13/25 15:35 Labs: Laboratory Results - last 24 hr 03/14/25 03/15/25 21:19 08:12 POC Glucose 90 99 Assessment and Plan (1) Diabetes: Status: Acute Plan 65-year-old female with past medical history listed below presented to the ED with hallucinations. She is admitted to inpatient psych for further care and treatment. PTSD/major depressive disorder/hallucinations Treatment per psychiatric team Hypertension Continue hydrochlorothiazide Diabetes with peripheral neuropathy Continue metformin and Lyrica Lispro sliding scale Recent A1c 5.7 Chronic pain syndrome/fibromyalgia Continue on Lyrica Tylenol as needed History of migraines Not on maintenance medications Stable no concerns Thank you for allowing me to participate in the care of this patient. Will follow with you, please notify medical provider with any changes in condition or concerns.
[2025-03-15] MEDS: Venlafaxine HCl ER 150 MG CAP.ER.24H 300 MG PO (08:44)
[2025-03-15 08:45] VITALS: BP 133/83; PULSE 73; RESP 18; TEMP 36.3; O2SAT 96
[2025-03-15] MEDS: Flu Vacc TS2025-26(6mo up)/PF 0.5 ML SYRINGE IM (08:48)
[2025-03-15 10:06] LABS: Cholesterol 223 mg/dL (<200); HDL Cholesterol 63 mg/dL (>40); Magnesium 2.0 mg/dL (1.6-2.6); Triglycerides 147 mg/dL (<150)
[2025-03-15 10:20] LABS: Free T4 (Free Thyroxine) 0.87 ng/dL (0.71-1.85); Thyroid Stimulating Hormone 2.52 uIU/mL (0.32-4.0)
[2025-03-15 10:38] LABS: Folate 10.4 ng/mL (> or = 4.0); Vitamin B12 260 pg/mL (200-900)
[2025-03-15 12:18] LABS: Glucose, Whole Blood 89 mg/dL (60-115)
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
--- NOTE | 2025-03-15 13:14 | P.PNPSI_ITS ---
Subjective Subjective Date of Service: 03/15/25 Reason For Visit: recurrent major depression w/ psychosis Interim History: met with patient; discussed with team; reviewed chart; seen with software program manager Yuly Patient reports up until this past week sleeping fine...no anxiety...and then one day last week...saw this man in her mind... She says: no sleep for 2 nights since anxious... had a lot of people in my mind...the first man was speaking to to meet through my mind and she talked back to him in her mind. She said he was like an alien..He wanted to meet in [place] her girl (daughter). She sees this man is real but he was in her mind if she tried to reach out and touch him he would disappear. Later she had another episode and saw a lot of people again in my mind... I did not know them so I was anxious Patient told her who had her come to the hospital. Since she has been here she has not been seeing or hearing anything in his starting to feel better Patient shared she has had episodes like this in the past. She has shares she had an imaginary friends she was little but she has not seeing this friend for close to 20 years. This imaginary friend would talk to her, was usually nice but could also be aggressive, tell her to grab people through the neck, tell her she had lara, that she could fly, that she could kill... Patient reports takes meds daily. Says a few weeks ago she was re-started on abilify With reality testing and discussion, patient reports that she agrees this is probably been her mind playing tricks on her. lives with and going well Mental Status Exam Mental Status Exam Narrative: Pt is alert and oriented; behavior is cooperative, friendly and calm; patient is not in distress; dressed in hospital attire with unkempt hair but adequate hygiene; mood is described as good though affect anxious; eye contact appropriate; Speech is normal rate, volume and prosody and not pressured; no psychomotor agitation/retardation present; thought process is mostly organized and goal directed; Thought content is on recent AVH; some lingering delusional ideations that seem to be waning; denies any SI/HI. Currently Denies AVH and there is no evidence of perceptual disturbance. Patients insight and judgment impaired but improving Diagnostics Vital Signs (24Hr): Vital Signs - 24 hr 03/14/25 15:03 03/14/25 17:40 03/14/25 20:55 Temperature 97.8 F 97.3 F 96.9 F Pulse Rate 74 82 90 Respiratory Rate 14 16 Blood Pressure 109/64 125/72 116/71 Pulse Oximetry 96 96 96 Oxygen Delivery Method Room Air Room Air Room Air 03/15/25 08:45 Temperature 97.3 F Pulse Rate 73 Respiratory Rate 18 Blood Pressure 133/83 Pulse Oximetry 96 Oxygen Delivery Method Room Air BMI result Body Mass Index 33.5 Labs 03/13/25 15:35 03/13/25 15:35 Labs: Laboratory Results - last 48 hr 03/13/25 03/13/25 03/14/25 15:35 23:28 21:19 WBC 7.1 RBC 4.89 Hgb 11.8 L Hct 37.4 MCV 76.5 L MCH 24.1 L MCHC 31.6 RDW 19.2 H Plt Count 261 MPV 10.5 Immature Gran % (Auto) 0.4 Neut % (Auto) 52.9 Lymph % (Auto) 34.9 [place] % (Auto) 9.4 Eos % (Auto) 2.1 Baso % (Auto) 0.3 Lymph # (Auto) 2.5 [place] # (Auto) 0.7 Eos # (Auto) 0.2 Baso # (Auto) 0.0 Abs Immat Gran (auto) 0.03 Absolute Neuts (auto) 3.8 Absolute Nucleated RBC 0.000 Nucleated RBC % (auto) 0.0 Sodium 143 Potassium 3.7 Chloride 105 Carbon Dioxide 25 Anion Gap 17 BUN 20 H Creatinine 1.05 Estim Creat Clear Calc 53.5 Estimated GFR 53 POC Glucose 90 Random Glucose 68 Estimat Average Glucose Hemoglobin A1c % Calcium 8.9 Magnesium Total Bilirubin 0.2 AST 24 ALT 13 Alkaline Phosphatase 81 Total Protein 7.4 Albumin 4.4 Triglycerides Cholesterol LDL Cholesterol, Calc HDL Cholesterol Vitamin B12 Folate TSH Free T4 Urine Color Yellow Urine Appearance Clear Urine pH 5.0 Ur Specific [place] 1.020 Urine Protein Negative Urine Glucose (UA) Negative Urine Ketones Negative Urine Blood Negative Urine Nitrite Negative Ur Leukocyte Esterase Trace H Urine RBC 0-2 Urine WBC 0-5 Ur Squamous Epith Cells 3-5 Urine Bacteria Trace Hyaline Casts 0-2 Urine Opiates Screen Not Detected Ur Buprenorphine Scrn Not Detected Ur Oxycodone Screen Not Detected Urine Methadone Screen Not Detected Urine Fentanyl Screen Not Detected Ur Barbiturates Screen Not Detected Ur Phencyclidine Scrn Not Detected Ur Amphetamines Screen Not Detected U Benzodiazepines Scrn Not Detected Urine Cocaine Screen Not Detected U Marijuana (THC) Screen Not Detected Ethyl Alcohol < 10 03/15/25 03/15/25 03/15/25 08:12 09:00 09:34 WBC RBC Hgb Hct MCV MCH MCHC RDW Plt Count MPV Immature Gran % (Auto) Neut % (Auto) Lymph % (Auto) [place] % (Auto) Eos % (Auto) Baso % (Auto) Lymph # (Auto) [place] # (Auto) Eos # (Auto) Baso # (Auto) Abs Immat Gran (auto) Absolute Neuts (auto) Absolute Nucleated RBC Nucleated RBC % (auto) Sodium Potassium Chloride Carbon Dioxide Anion Gap BUN Creatinine Estim Creat Clear Calc Estimated GFR POC Glucose 99 Random Glucose Estimat Average Glucose 117 Hemoglobin A1c % 5.7 Calcium Magnesium 2.0 Total Bilirubin AST ALT Alkaline Phosphatase Total Protein Albumin Triglycerides 147 Cholesterol 223 H LDL Cholesterol, Calc 131 H HDL Cholesterol 63 Vitamin B12 260 Folate 10.4 TSH 2.52 Free T4 0.87 Urine Color Urine Appearance Urine pH Ur Specific [place] Urine Protein Urine Glucose (UA) Urine Ketones Urine Blood Urine Nitrite Ur Leukocyte Esterase Urine RBC Urine WBC Ur Squamous Epith Cells Urine Bacteria Hyaline Casts Urine Opiates Screen Ur Buprenorphine Scrn Ur Oxycodone Screen Urine Methadone Screen Urine Fentanyl Screen Ur Barbiturates Screen Ur Phencyclidine Scrn Ur Amphetamines Screen U Benzodiazepines Scrn Urine Cocaine Screen U Marijuana (THC) Screen Ethyl Alcohol 03/15/25 12:14 WBC RBC Hgb Hct MCV MCH MCHC RDW Plt Count MPV Immature Gran % (Auto) Neut % (Auto) Lymph % (Auto) [place] % (Auto) Eos % (Auto) Baso % (Auto) Lymph # (Auto) [place] # (Auto) Eos # (Auto) Baso # (Auto) Abs Immat Gran (auto) Absolute Neuts (auto) Absolute Nucleated RBC Nucleated RBC % (auto) Sodium Potassium Chloride Carbon Dioxide Anion Gap BUN Creatinine Estim Creat Clear Calc Estimated GFR POC Glucose 89 Random Glucose Estimat Average Glucose Hemoglobin A1c % Calcium Magnesium Total Bilirubin AST ALT Alkaline Phosphatase Total Protein Albumin Triglycerides Cholesterol LDL Cholesterol, Calc HDL Cholesterol Vitamin B12 Folate TSH Free T4 Urine Color Urine Appearance Urine pH Ur Specific [place] Urine Protein Urine Glucose (UA) Urine Ketones Urine Blood Urine Nitrite Ur Leukocyte Esterase Urine RBC Urine WBC Ur Squamous Epith Cells Urine Bacteria Hyaline Casts Urine Opiates Screen Ur Buprenorphine Scrn Ur Oxycodone Screen Urine Methadone Screen Urine Fentanyl Screen Ur Barbiturates Screen Ur Phencyclidine Scrn Ur Amphetamines Screen U Benzodiazepines Scrn Urine Cocaine Screen U Marijuana (THC) Screen Ethyl Alcohol Medications Medications Current Medications Acetaminophen (Acetaminophen 325 Mg Tablet) 650 mg PO Q6H PRN PRN Reason: Headache/Pain, Scale 1-10 Al Hydroxide/Mg Hydroxide (Magnesium Hydrox/Alum Hydrox 30 Ml Oral.Susp) 30 ml PO Q6H PRN PRN Reason: Heartburn/Nausea Aripiprazole (Aripiprazole 2 Mg Tablet) 2 mg PO DAILY [facility] Last Admin: 03/15/25 08:44 Dose: 2 mg Clonazepam (Clonazepam 0.5 Mg Tablet) 0.5 mg PO DAILY PRN PRN Reason: Anxiety Last Admin: 03/14/25 14:19 Dose: 0.5 mg Clonazepam (Clonazepam 1 Mg Tablet) 1 mg PO BID [facility] Last Admin: 03/15/25 08:44 Dose: 1 mg Dextrose (Dextrose 50 % 25 Gm/50 Ml Syringe) 25 gm IVPUSH Q15M PRN; Protocol PRN Reason: per Hypoglycemia Standing Ord. Glucose (Glucose Gel 15 Gm Gel..Gram.) 15 gm PO Q15M PRN; Protocol PRN Reason: per Hypoglycemia Standing Ord. Hydrochlorothiazide (Hydrochlorothiazide 50 Mg Tablet) 50 mg PO DAILY [facility]; Protocol Last Admin: 03/15/25 08:44 Dose: 50 mg Insulin Human Lispro (Insulin Lispro 100 Unit/Ml 3 Ml Vial) 0 unit SUBCUT QIDACHS [facility]; Protocol Last Admin: 03/15/25 13:10 Dose: Not Given Magnesium Hydroxide (Milk Of Magnesia 30 Ml Oral.Susp) 30 ml PO DAILY PRN PRN Reason: Constipation Melatonin (Melatonin 3 Mg Tablet) 9 mg PO BEDTIME PRN PRN Reason: Insomnia Last Admin: 03/14/25 21:40 Dose: 9 mg Metformin HCl (Metformin Hcl Er 500 Mg Tab.Er.24h) 500 mg PO BIDWM [facility] Last Admin: 03/15/25 08:44 Dose: 500 mg Nicotine Polacrilex (Nicotine Polacrilex 2 Mg Gum) 4 mg BUCCAL Q2H PRN PRN Reason: Nicotine Cravings Pregabalin (Pregabalin 75 Mg Capsule) 225 mg PO BID [facility] Last Admin: 03/15/25 08:44 Dose: 225 mg Trazodone HCl (Trazodone Hcl 100 Mg Tablet) 300 mg PO BEDTIME [facility] Last Admin: 03/14/25 21:38 Dose: 300 mg Venlafaxine HCl (Venlafaxine Hcl Er 150 Mg Cap.Er.24h) 300 mg PO DAILY [facility] Last Admin: 03/15/25 08:44 Dose: 300 mg Allergies Allergies Allergy/AdvReac Type Severity Reaction Status Date / Time morphine (MORPHINE) Allergy Intermediate PALPITATIONS, Verified 03/13/25 15:12 tachicardia quetiapine (Seroquel) Allergy Intermediate Aggitation Verified 03/13/25 15:12 orphenadrine (ORPHENADRINE) AdvReac Intermediate RAPID Verified 03/13/25 15:12 HEART RATE Assessment & Plan Assessment & Plan (1) Major depressive disorder with psychotic features: Status: Acute Code(s): F32.3 - Major depressive disorder, single episode, severe with psychotic features (2) Anxiety disorder, unspecified: Status: Acute Code(s): F41.9 - Anxiety disorder, unspecified (3) Diabetes: Status: Acute Code(s): E11.9 - Type 2 diabetes mellitus without complications (4) PTSD (post-traumatic stress disorder): Status: Acute Code(s): F43.10 - Post-traumatic stress disorder, unspecified Plan HPI: Pt. is a 65 year old, Citizen Of [place] Citizen speaking female with hx of MDD who was BIBA secondary to endorsing auditory and visual hallucinations. Pt. reports that when she closes her eyes , she sees a man with a bomb , and it is making her anxious. Upon assessment, pt. denies suicidal ideation, plan, or intent. Pt. endorses passive homicidal ideation when asked stating, when I get mad . Pt. reports that she has been feeling depressed and very anxious as of recently. Pt. reports that she cannot sleep due to voices telling her things when she closes her eyes. Pt. states, the voices don't let me sleep. Pt. denies the voices being command in nature, however is wondering what their intentions are. Pt. believes that the man she is seeing, looks like her son. Formulation/clinical reasoning: increased in depression and anxiety, experience AVH that affects sleep and anxiety with passive HI. Hx of PTSD, MDD and unspecified anxiety d/o. Given above information, patient would benefit in restrictive environment for own safety, medication management and refer patient to OP psychiatric services for aftercare. Hospital course: 03/14/25: Continue with all home meds Place on Diabetic protocol. Monitor for hypo/hyperglycemia. 03/15 Patient reports up until this past week sleeping fine...no anxiety...and then one day last week...saw this man in her mind... She says: no sleep for 2 nights since anxious... had a lot of people in my mind...the first man was speaking to to meet through my mind and she talked back to him in her mind. She said he was like an alien..He wanted to meet in [place] her girl (daughter). She sees this man is real but he was in her mind if she tried to reach out and touch him he would disappear. Later she had another episode and saw a lot of people again in my mind... I did not know them so I was anxious Patient told her who had her come to the hospital. Since she has been here she has not been seeing or hearing anything in his starting to feel better Patient shared she has had episodes like this in the past. She has shares she had an imaginary friends she was little but she has not seeing this friend for close to 20 years. This imaginary friend would talk to her, was usually nice but could also be aggressive, tell her to grab people through the neck, tell her she had lara, that she could fly, that she could kill... Patient reports takes meds daily. Says a few weeks ago she was re-started on abilify ; denies substance abuse With reality testing and discussion, patient reports that she agrees this is probably been her mind playing tricks on her. Regarding diabetic protocol/insulin sliding scale, patient hemoglobin A1c 5.7; does not have diabetes so will discontinue Impression: Seems that patient has likely schizoaffective disorder; she is somewhat a limited historian so it is not totally clear but this diagnosis fits her presentation and report. Not sure what triggered this recent event but so far she seems like she is returning to baseline. Will continue to monitor. If remains stable will proceed with discharge planning Plan Patient on 15 minute checks for safety. Admitted to M5. CV. Continue Abilify 2 mg; if symptoms return will likely increase Continue venlafaxine XL 300 mg DC insulin sliding scale; hemoglobin A1c 5.7; Work with treatment team to do collateral diagnostic if necessary Patient educated on: diagnosis and medication risk/benefits Informed Consent: understands, does not understand and further education needed Reason for continued inpatient stay Substantial Risk for: rapid decompensation Time Spent With Patient Time: Total time managing care of this patient today ____ minutes.
[2025-03-15 16:07] VITALS: BP 113/69
[2025-03-15 20:00] VITALS: BP 95/57; PULSE 74; RESP 19; TEMP 36.9; O2SAT 97
[2025-03-16 08:35] VITALS: BP 114/60; PULSE 60; RESP 20; TEMP 37.2; O2SAT 96
--- NOTE | 2025-03-16 08:40 | P.PNPSI_ITS ---
Subjective Subjective Date of Service: 03/16/25 Reason For Visit: recurrent major depression w/ psychosis Interim History: Met with patient; discussed with team Patient reports she is feeling better and that she slept like a baby. She denies any AVH and is not talking about paranoid ideations. Patient has been provided collateral and says that such episodes have been happening for decades , 40 years. Discussed this with patient who agrees and agrees to increase home medication Abilify. Mental Status Exam Mental Status Exam Narrative: Pt is alert and oriented; behavior is cooperative, friendly and calm; patient is not in distress; dressed in hospital attire with unkempt hair but adequate hygiene; mood is described as good though affect anxious; eye contact appropriate; Speech is normal rate, volume and prosody and not pressured; no psychomotor agitation/retardation present; thought process is mostly organized and goal directed; Thought content is on recent AVH; some lingering delusional ideations that seem to be waning; denies any SI/HI. Currently Denies AVH and there is no evidence of perceptual disturbance. Patients insight and judgment impaired but improving Diagnostics Vital Signs (24Hr): Vital Signs - 24 hr 03/15/25 08:45 03/15/25 16:07 03/15/25 20:00 Temperature 97.3 F 98.5 F Pulse Rate 73 74 Respiratory Rate 18 19 Blood Pressure 133/83 113/69 95/57 L Pulse Oximetry 96 97 Oxygen Delivery Method Room Air Room Air 03/16/25 08:35 Temperature 98.9 F Pulse Rate 60 Respiratory Rate 20 Blood Pressure 114/60 Pulse Oximetry 96 Oxygen Delivery Method Room Air BMI result Body Mass Index 33.5 Labs 03/13/25 15:35 03/13/25 15:35 Labs: Laboratory Results - last 48 hr 03/14/25 03/15/25 03/15/25 21:19 08:12 09:00 POC Glucose 90 99 Estimat Average Glucose 117 Hemoglobin A1c % 5.7 Magnesium 2.0 Triglycerides 147 Cholesterol 223 H LDL Cholesterol, Calc 131 H HDL Cholesterol 63 Vitamin B12 Folate TSH 2.52 Free T4 0.87 03/15/25 03/15/25 09:34 12:14 POC Glucose 89 Estimat Average Glucose Hemoglobin A1c % Magnesium Triglycerides Cholesterol LDL Cholesterol, Calc HDL Cholesterol Vitamin B12 260 Folate 10.4 TSH Free T4 Medications Medications Current Medications Acetaminophen (Acetaminophen 325 Mg Tablet) 650 mg PO Q6H PRN PRN Reason: Headache/Pain, Scale 1-10 Al Hydroxide/Mg Hydroxide (Magnesium Hydrox/Alum Hydrox 30 Ml Oral.Susp) 30 ml PO Q6H PRN PRN Reason: Heartburn/Nausea Aripiprazole (Aripiprazole 2 Mg Tablet) 2 mg PO DAILY [facility] Last Admin: 03/16/25 08:34 Dose: 2 mg Clonazepam (Clonazepam 0.5 Mg Tablet) 0.5 mg PO DAILY PRN PRN Reason: Anxiety Last Admin: 03/15/25 14:12 Dose: 0.5 mg Clonazepam (Clonazepam 1 Mg Tablet) 1 mg PO BID [facility] Last Admin: 03/16/25 08:35 Dose: 1 mg Clonidine HCl (Clonidine Hcl 0.1 Mg Tablet) 0.1 mg PO Q4H PRN; Protocol PRN Reason: moderate anxiety Last Admin: 03/15/25 16:07 Dose: 0.1 mg Glucose (Glucose Gel 15 Gm Gel..Gram.) 15 gm PO Q15M PRN; Protocol PRN Reason: per Hypoglycemia Standing Ord. Hydrochlorothiazide (Hydrochlorothiazide 50 Mg Tablet) 50 mg PO DAILY [facility]; Protocol Last Admin: 03/15/25 08:44 Dose: 50 mg Magnesium Hydroxide (Milk Of Magnesia 30 Ml Oral.Susp) 30 ml PO DAILY PRN PRN Reason: Constipation Melatonin (Melatonin 3 Mg Tablet) 9 mg PO BEDTIME PRN PRN Reason: Insomnia Last Admin: 03/15/25 20:39 Dose: 9 mg Metformin HCl (Metformin Hcl Er 500 Mg Tab.Er.24h) 500 mg PO BIDWM [facility] Last Admin: 03/16/25 08:34 Dose: 500 mg Nicotine Polacrilex (Nicotine Polacrilex 2 Mg Gum) 4 mg BUCCAL Q2H PRN PRN Reason: Nicotine Cravings Olanzapine (Olanzapine 5 Mg Tablet) 5 mg PO TID PRN PRN Reason: agitation Last Admin: 03/15/25 17:58 Dose: 5 mg Pregabalin (Pregabalin 75 Mg Capsule) 225 mg PO BID [facility] Last Admin: 03/16/25 08:33 Dose: 225 mg Trazodone HCl (Trazodone Hcl 100 Mg Tablet) 300 mg PO BEDTIME [facility] Last Admin: 03/15/25 20:40 Dose: 300 mg Venlafaxine HCl (Venlafaxine Hcl Er 150 Mg Cap.Er.24h) 300 mg PO DAILY [facility] Last Admin: 03/15/25 08:44 Dose: 300 mg Allergies Allergies Allergy/AdvReac Type Severity Reaction Status Date / Time morphine (MORPHINE) Allergy Intermediate PALPITATIONS, Verified 03/13/25 15:12 tachicardia quetiapine (Seroquel) Allergy Intermediate Aggitation Verified 03/13/25 15:12 orphenadrine (ORPHENADRINE) AdvReac Intermediate RAPID Verified 03/13/25 15:12 HEART RATE Assessment & Plan Assessment & Plan (1) Major depressive disorder with psychotic features: Status: Acute Code(s): F32.3 - Major depressive disorder, single episode, severe with psychotic features (2) Anxiety disorder, unspecified: Status: Acute Code(s): F41.9 - Anxiety disorder, unspecified (3) Diabetes: Status: Acute Code(s): E11.9 - Type 2 diabetes mellitus without complications (4) PTSD (post-traumatic stress disorder): Status: Acute Code(s): F43.10 - Post-traumatic stress disorder, unspecified Plan HPI: Pt. is a 65 year old, [place], Indonesian speaking female with hx of MDD who was BIBA secondary to endorsing auditory and visual hallucinations. Pt. reports that when she closes her eyes , she sees a man with a bomb , and it is making her anxious. Upon assessment, pt. denies suicidal ideation, plan, or intent. Pt. endorses passive homicidal ideation when asked stating, when I get mad . Pt. reports that she has been feeling depressed and very anxious as of recently. Pt. reports that she cannot sleep due to voices telling her things when she closes her eyes. Pt. states, the voices don't let me sleep. Pt. denies the voices being command in nature, however is wondering what their intentions are. Pt. believes that the man she is seeing, looks like her son. Formulation/clinical reasoning: increased in depression and anxiety, experience AVH that affects sleep and anxiety with passive HI. Hx of PTSD, MDD and unspecified anxiety d/o. Given above information, patient would benefit in restrictive environment for own safety, medication management and refer patient to OP psychiatric services for aftercare. Hospital course: 03/14/25: Continue with all home meds Place on Diabetic protocol. Monitor for hypo/hyperglycemia. 03/15 Patient reports up until this past week sleeping fine...no anxiety...and then one day last week...saw this man in her mind... She says: no sleep for 2 nights since anxious... had a lot of people in my mind...the first man was speaking to to meet through my mind and she talked back to him in her mind. She said he was like an alien..He wanted to meet in [place] her girl (daughter). She sees this man is real but he was in her mind if she tried to reach out and touch him he would disappear. Later she had another episode and saw a lot of people again in my mind... I did not know them so I was anxious Patient told her who had her come to the hospital. Since she has been here she has not been seeing or hearing anything in his starting to feel better Patient shared she has had episodes like this in the past. She has shares she had an imaginary friends she was little but she has not seeing this friend for close to 20 years. This imaginary friend would talk to her, was usually nice but could also be aggressive, tell her to grab people through the neck, tell her she had lara, that she could fly, that she could kill... Patient reports takes meds daily. Says a few weeks ago she was re-started on abilify ; denies substance abuse With reality testing and discussion, patient reports that she agrees this is probably been her mind playing tricks on her. Regarding diabetic protocol/insulin sliding scale, patient hemoglobin A1c 5.7; does not have diabetes so will discontinue Impression: Seems that patient has likely schizoaffective disorder; she is somewhat a limited historian so it is not totally clear but this diagnosis fits her presentation and report. Not sure what triggered this recent event but so far she seems like she is returning to baseline. Will continue to monitor. If remains stable will proceed with discharge planning 03/16 Patient reports she is feeling better and that she slept like a baby. She denies any AVH and is not talking about paranoid ideations. Patient has been provided collateral and says that such episodes have been happening for decades , 40 years. Discussed this with patient who agrees and agrees to increase home medication Abilify. -patient's episode of been happening for decades; recently started on Abilify 2 mg which has not prevented such episodes; will increase dose Plan Patient on 15 minute checks for safety. Admitted to [facility]5. CV. increase to Abilify 4 mg; if symptoms return will likely increase Continue venlafaxine XL 300 mg DC insulin sliding scale; hemoglobin A1c 5.7; Work with treatment team to do collateral diagnostic if necessary Patient educated on: diagnosis and medication risk/benefits Informed Consent: understands and further education needed Reason for continued inpatient stay Substantial Risk for: rapid decompensation Time Spent With Patient Time: Total time managing care of this patient today ____ minutes.
[2025-03-16] MEDS: Venlafaxine HCl ER 150 MG CAP.ER.24H 300 MG PO (08:41)
[2025-03-16] MEDS: Milk of Magnesia 30 ML ORAL.SUSP PO (12:52)
[2025-03-16 20:00] VITALS: BP 105/59; PULSE 74; RESP 16; TEMP 36.9; O2SAT 93
[2025-03-17 09:09] VITALS: BP 115/60; PULSE 70; RESP 20; TEMP 36.3; O2SAT 96
[2025-03-17] MEDS: Venlafaxine HCl ER 150 MG CAP.ER.24H 300 MG PO (09:10)
--- NOTE | 2025-03-17 09:17 | HO.PSYCHPN ---
Documented by User: Kulwant Hammer CNP 03/18/25 07:49 Subjective Subjective Date of Service: 03/17/25 Reason For Visit: recurrent major depression w/ psychosis Subjective Notes: Conditional Voluntary Interim History: Patient found sitting alone in the break room watching TV. She states that she feels Great, and ready to return home to her . She states that her has not been able to visit her because he has a bad flu. However, they have been communicating over the phone. She denies anxiety or depression. She denies SI/HI/AVH. Medication Compliance: Yes Side effects from medications: No Attending Groups: Intermittent Review of Systems Acute medical concerns: No Mental Status Exam Mental Status Exam Narrative: Appearance: Casually dressed in casual attire, adequate hygiene and grooming Behavior: Calm and cooperative throughout the interview. Eye contact is appropriate, and there are no signs of psychomotor agitation or retardation Speech: Normal volume and prosody Thought process: Logical and goal-directed Thought content: On treatment and returning home Mood: Great Affect: Mood-congruent SI: Denies HI: Denies VH/AH: None Delusions: Not apparent Insight/judgment: Fair insight and judgment Memory/cog: Alert, oriented x 4. grossly intact to conversational testing Diagnostics Vital Signs (24Hr): Vital Signs - 24 hr 03/16/25 20:00 03/17/25 09:09 Temperature 98.5 F 97.3 F Pulse Rate 74 70 Respiratory Rate 16 20 Blood Pressure 105/59 L 115/60 Pulse Oximetry 93 96 Oxygen Delivery Method Room Air BMI result Body Mass Index 33.5 Labs 03/13/25 15:35 03/13/25 15:35 Labs: Laboratory Results - last 48 hr 03/15/25 03/15/25 03/15/25 09:00 09:34 12:14 POC Glucose 89 Estimat Average Glucose 117 Hemoglobin A1c % 5.7 Magnesium 2.0 Triglycerides 147 Cholesterol 223 H LDL Cholesterol, Calc 131 H HDL Cholesterol 63 Vitamin B12 260 Folate 10.4 TSH 2.52 Free T4 0.87 Medications Medications Current Medications Acetaminophen (Acetaminophen 325 Mg Tablet) 650 mg PO Q6H PRN PRN Reason: Headache/Pain, Scale 1-10 Last Admin: 03/17/25 04:22 Dose: 650 mg Al Hydroxide/Mg Hydroxide (Magnesium Hydrox/Alum Hydrox 30 Ml Oral.Susp) 30 ml PO Q6H PRN PRN Reason: Heartburn/Nausea Aripiprazole (Aripiprazole 2 Mg Tablet) 2 mg PO DAILY [facility] Last Admin: 03/17/25 09:12 Dose: 2 mg Clonazepam (Clonazepam 0.5 Mg Tablet) 0.5 mg PO DAILY PRN PRN Reason: Anxiety Last Admin: 03/15/25 14:12 Dose: 0.5 mg Clonazepam (Clonazepam 1 Mg Tablet) 1 mg PO BID [facility] Last Admin: 03/17/25 09:12 Dose: 1 mg Clonidine HCl (Clonidine Hcl 0.1 Mg Tablet) 0.1 mg PO Q4H PRN; Protocol PRN Reason: moderate anxiety Last Admin: 03/15/25 16:07 Dose: 0.1 mg Glucose (Glucose Gel 15 Gm Gel..Gram.) 15 gm PO Q15M PRN; Protocol PRN Reason: per Hypoglycemia Standing Ord. Hydrochlorothiazide (Hydrochlorothiazide 50 Mg Tablet) 50 mg PO DAILY [facility]; Protocol Last Admin: 03/17/25 09:12 Dose: 50 mg Magnesium Hydroxide (Milk Of Magnesia 30 Ml Oral.Susp) 30 ml PO DAILY PRN PRN Reason: Constipation Last Admin: 03/16/25 12:52 Dose: 30 ml Melatonin (Melatonin 3 Mg Tablet) 9 mg PO BEDTIME PRN PRN Reason: Insomnia Last Admin: 03/17/25 04:22 Dose: 9 mg Metformin HCl (Metformin Hcl Er 500 Mg Tab.Er.24h) 500 mg PO BIDWM [facility] Last Admin: 03/17/25 09:11 Dose: 500 mg Nicotine Polacrilex (Nicotine Polacrilex 2 Mg Gum) 4 mg BUCCAL Q2H PRN PRN Reason: Nicotine Cravings Olanzapine (Olanzapine 5 Mg Tablet) 5 mg PO TID PRN PRN Reason: agitation Last Admin: 03/15/25 17:58 Dose: 5 mg Polyethylene Glycol (Polyethylene Glycol 3350 17 Gm Powd.Pack) 17 gm PO DAILY PRN PRN Reason: Constipation Pregabalin (Pregabalin 75 Mg Capsule) 225 mg PO BID [facility] Last Admin: 03/17/25 09:11 Dose: 225 mg Trazodone HCl (Trazodone Hcl 100 Mg Tablet) 300 mg PO BEDTIME [facility] Last Admin: 03/16/25 23:11 Dose: 300 mg Venlafaxine HCl (Venlafaxine Hcl Er 150 Mg Cap.Er.24h) 300 mg PO DAILY [facility] Last Admin: 03/17/25 09:10 Dose: 300 mg Allergies Allergies Allergy/AdvReac Type Severity Reaction Status Date / Time morphine (MORPHINE) Allergy Intermediate PALPITATIONS, Verified 03/13/25 15:12 tachicardia quetiapine (Seroquel) Allergy Intermediate Aggitation Verified 03/13/25 15:12 orphenadrine (ORPHENADRINE) AdvReac Intermediate RAPID Verified 03/13/25 15:12 HEART RATE Assessment & Plan Assessment & Plan (1) Major depressive disorder with psychotic features: Status: Acute Code(s): F32.3 - Major depressive disorder, single episode, severe with psychotic features (2) Anxiety disorder, unspecified: Status: Acute Code(s): F41.9 - Anxiety disorder, unspecified (3) Diabetes: Status: Acute Code(s): E11.9 - Type 2 diabetes mellitus without complications (4) PTSD (post-traumatic stress disorder): Status: Acute Code(s): F43.10 - Post-traumatic stress disorder, unspecified Plan HPI: Pt. is a 65 year old, [place]onese, Armenian speaking female with hx of MDD who was BIBA secondary to endorsing auditory and visual hallucinations. Pt. reports that when she closes her eyes , she sees a man with a bomb , and it is making her anxious. Upon assessment, pt. denies suicidal ideation, plan, or intent. Pt. endorses passive homicidal ideation when asked stating, when I get mad . Pt. reports that she has been feeling depressed and very anxious as of recently. Pt. reports that she cannot sleep due to voices telling her things when she closes her eyes. Pt. states, the voices don't let me sleep. Pt. denies the voices being command in nature, however is wondering what their intentions are. Pt. believes that the man she is seeing, looks like her son. Formulation/clinical reasoning: increased in depression and anxiety, experience AVH that affects sleep and anxiety with passive HI. Hx of PTSD, MDD and unspecified anxiety d/o. Given above information, patient would benefit in restrictive environment for own safety, medication management and refer patient to OP psychiatric services for aftercare. Hospital course: 03/14/25: Continue with all home meds Place on Diabetic protocol. Monitor for hypo/hyperglycemia. 03/15 Patient reports up until this past week sleeping fine...no anxiety...and then one day last week...saw this man in her mind... She says: no sleep for 2 nights since anxious... had a lot of people in my mind...the first man was speaking to to meet through my mind and she talked back to him in her mind. She said he was like an alien..He wanted to meet in [place] her girl (daughter). She sees this man is real but he was in her mind if she tried to reach out and touch him he would disappear. Later she had another episode and saw a lot of people again in my mind... I did not know them so I was anxious Patient told her who had her come to the hospital. Since she has been here she has not been seeing or hearing anything in his starting to feel better Patient shared she has had episodes like this in the past. She has shares she had an imaginary friends she was little but she has not seeing this friend for close to 20 years. This imaginary friend would talk to her, was usually nice but could also be aggressive, tell her to grab people through the neck, tell her she had lara, that she could fly, that she could kill... Patient reports takes meds daily. Says a few weeks ago she was re-started on abilify ; denies substance abuse With reality testing and discussion, patient reports that she agrees this is probably been her mind playing tricks on her. Regarding diabetic protocol/insulin sliding scale, patient hemoglobin A1c 5.7; does not have diabetes so will discontinue Impression: Seems that patient has likely schizoaffective disorder; she is somewhat a limited historian so it is not totally clear but this diagnosis fits her presentation and report. Not sure what triggered this recent event but so far she seems like she is returning to baseline. Will continue to monitor. If remains stable will proceed with discharge planning 03/16 Patient reports she is feeling better and that she slept like a baby. She denies any AVH and is not talking about paranoid ideations. Patient has been provided collateral and says that such episodes have been happening for decades , 40 years. Discussed this with patient who agrees and agrees to increase home medication Abilify. -patient's episode of been happening for decades; recently started on Abilify 2 mg which has not prevented such episodes; will increase dose 03/17: Patient found sitting alone in the break room watching TV. She states that she feels Great, and ready to return home to her . She states that her has not been able to visit her because he has a bad flu. However, they have been communicating over the phone. No anxiety or depression. No SI/HI/AVH. Continue current treatment regimen. She will start increased Abilify dose tomorrow. Plan Patient on 15 minute checks for safety. Admitted to . CV. INCREASED to Abilify 4 mg; if symptoms return will likely increase Continue venlafaxine XL 300 mg DC insulin sliding scale; hemoglobin A1c 5.7; Work with treatment team to do collateral diagnostic if necessary Patient educated on: therapeutic strategies Reason for continued inpatient stay Substantial Risk for: rapid decompensation Time Spent With Patient Time: Total time managing care of this patient today ____ minutes. Documented by User: Danish Argueta MD 03/17/25 10:14 Subjective Subjective Reason For Visit: recurrent major depression w/ psychosis Diagnostics Labs 03/13/25 15:35 03/13/25 15:35 Assessment & Plan Assessment & Plan (1) Major depressive disorder with psychotic features: Status: Acute Code(s): F32.3 - Major depressive disorder, single episode, severe with psychotic features (2) Anxiety disorder, unspecified: Status: Acute Code(s): F41.9 - Anxiety disorder, unspecified (3) Diabetes: Status: Acute Code(s): E11.9 - Type 2 diabetes mellitus without complications (4) PTSD (post-traumatic stress disorder): Status: Acute Code(s): F43.10 - Post-traumatic stress disorder, unspecified Plan HPI: Pt. is a 65 year old, Gabonese, Armenian speaking female with hx of MDD who was BIBA secondary to endorsing auditory and visual hallucinations. Pt. reports that when she closes her eyes , she sees a man with a bomb , and it is making her anxious. Upon assessment, pt. denies suicidal ideation, plan, or intent. Pt. endorses passive homicidal ideation when asked stating, when I get mad . Pt. reports that she has been feeling depressed and very anxious as of recently. Pt. reports that she cannot sleep due to voices telling her things when she closes her eyes. Pt. states, the voices don't let me sleep. Pt. denies the voices being command in nature, however is wondering what their intentions are. Pt. believes that the man she is seeing, looks like her son. Formulation/clinical reasoning: increased in depression and anxiety, experience AVH that affects sleep and anxiety with passive HI. Hx of PTSD, MDD and unspecified anxiety d/o. Given above information, patient would benefit in restrictive environment for own safety, medication management and refer patient to OP psychiatric services for aftercare. Hospital course: 03/14/25: Continue with all home meds Place on Diabetic protocol. Monitor for hypo/hyperglycemia. 03/15 Patient reports up until this past week sleeping fine...no anxiety...and then one day last week...saw this man in her mind... She says: no sleep for 2 nights since anxious... had a lot of people in my mind...the first man was speaking to to meet through my mind and she talked back to him in her mind. She said he was like an alien..He wanted to meet in [place] her girl (daughter). She sees this man is real but he was in her mind if she tried to reach out and touch him he would disappear. Later she had another episode and saw a lot of people again in my mind... I did not know them so I was anxious Patient told her who had her come to the hospital. Since she has been here she has not been seeing or hearing anything in his starting to feel better Patient shared she has had episodes like this in the past. She has shares she had an imaginary friends she was little but she has not seeing this friend for close to 20 years. This imaginary friend would talk to her, was usually nice but could also be aggressive, tell her to grab people through the neck, tell her she had lara, that she could fly, that she could kill... Patient reports takes meds daily. Says a few weeks ago she was re-started on abilify ; denies substance abuse With reality testing and discussion, patient reports that she agrees this is probably been her mind playing tricks on her. Regarding diabetic protocol/insulin sliding scale, patient hemoglobin A1c 5.7; does not have diabetes so will discontinue Impression: Seems that patient has likely schizoaffective disorder; she is somewhat a limited historian so it is not totally clear but this diagnosis fits her presentation and report. Not sure what triggered this recent event but so far she seems like she is returning to baseline. Will continue to monitor. If remains stable will proceed with discharge planning 03/16 Patient reports she is feeling better and that she slept like a baby. She denies any AVH and is not talking about paranoid ideations. Patient has been provided collateral and says that such episodes have been happening for decades , 40 years. Discussed this with patient who agrees and agrees to increase home medication Abilify. -patient's episode of been happening for decades; recently started on Abilify 2 mg which has not prevented such episodes; will increase dose Plan Patient on 15 minute checks for safety. Admitted to [facility]5. CV. INCREASED to Abilify 4 mg; if symptoms return will likely increase Continue venlafaxine XL 300 mg DC insulin sliding scale; hemoglobin A1c 5.7; Work with treatment team to do collateral diagnostic if necessary
[2025-03-17 10:45] VITALS: BMI 34.1
[2025-03-17 13:24] VITALS: TEMP 36.9
[2025-03-17 20:00] VITALS: BP 113/63; PULSE 66; RESP 18; TEMP 36.8; O2SAT 97
[2025-03-18 08:53] VITALS: BP 107/65; PULSE 69; RESP 20; TEMP 36.8; O2SAT 96
[2025-03-18] MEDS: Venlafaxine HCl ER 150 MG CAP.ER.24H 300 MG PO (08:57)
[2025-03-18] MEDS: Milk of Magnesia 30 ML ORAL.SUSP PO (09:39)
--- NOTE | 2025-03-18 10:04 | HO.PSYCHPN ---
Subjective Subjective Date of Service: 03/18/25 Reason For Visit: recurrent major depression w/ psychosis Interim History: met with patient; discussed with team Patient says she is doing good and looking forward to going home; no AVH and feels back to her regular self. -later in the day patient reported to nursing staff she is having a gout flare and asked for medication treatment Diagnostics Vital Signs (24Hr): Vital Signs - 24 hr 03/17/25 13:24 03/17/25 20:00 03/18/25 08:53 Temperature 98.5 F 98.2 F 98.2 F Pulse Rate 66 69 Respiratory Rate 18 20 Blood Pressure 113/63 107/65 Pulse Oximetry 97 96 Oxygen Delivery Method Room Air Room Air BMI result Body Mass Index 34.1 Labs 03/13/25 15:35 03/13/25 15:35 Medications Medications Current Medications Acetaminophen (Acetaminophen 325 Mg Tablet) 650 mg PO Q6H PRN PRN Reason: Headache/Pain, Scale 1-10 Last Admin: 03/17/25 04:22 Dose: 650 mg Al Hydroxide/Mg Hydroxide (Magnesium Hydrox/Alum Hydrox 30 Ml Oral.Susp) 30 ml PO Q6H PRN PRN Reason: Heartburn/Nausea Aripiprazole (Aripiprazole 2 Mg Tablet) 4 mg PO DAILY [facility] Last Admin: 03/18/25 08:54 Dose: 4 mg Clonazepam (Clonazepam 0.5 Mg Tablet) 0.5 mg PO DAILY PRN PRN Reason: Anxiety Last Admin: 03/17/25 16:15 Dose: 0.5 mg Clonazepam (Clonazepam 1 Mg Tablet) 1 mg PO BID [facility] Last Admin: 03/18/25 08:56 Dose: 1 mg Clonidine HCl (Clonidine Hcl 0.1 Mg Tablet) 0.1 mg PO Q4H PRN; Protocol PRN Reason: moderate anxiety Last Admin: 03/15/25 16:07 Dose: 0.1 mg Glucose (Glucose Gel 15 Gm Gel..Gram.) 15 gm PO Q15M PRN; Protocol PRN Reason: per Hypoglycemia Standing Ord. Hydrochlorothiazide (Hydrochlorothiazide 50 Mg Tablet) 50 mg PO DAILY [facility]; Protocol Last Admin: 03/18/25 08:55 Dose: 50 mg Magnesium Hydroxide (Milk Of Magnesia 30 Ml Oral.Susp) 30 ml PO DAILY PRN PRN Reason: Constipation Last Admin: 03/18/25 09:39 Dose: 30 ml Melatonin (Melatonin 3 Mg Tablet) 9 mg PO BEDTIME PRN PRN Reason: Insomnia Last Admin: 03/17/25 04:22 Dose: 9 mg Metformin HCl (Metformin Hcl Er 500 Mg Tab.Er.24h) 500 mg PO BIDWM [facility] Last Admin: 03/18/25 08:54 Dose: 500 mg Nicotine Polacrilex (Nicotine Polacrilex 2 Mg Gum) 4 mg BUCCAL Q2H PRN PRN Reason: Nicotine Cravings Polyethylene Glycol (Polyethylene Glycol 3350 17 Gm Powd.Pack) 17 gm PO DAILY PRN PRN Reason: Constipation Pregabalin (Pregabalin 75 Mg Capsule) 225 mg PO BID [facility] Last Admin: 03/18/25 08:55 Dose: 225 mg Trazodone HCl (Trazodone Hcl 100 Mg Tablet) 300 mg PO BEDTIME [facility] Last Admin: 03/17/25 20:58 Dose: 300 mg Venlafaxine HCl (Venlafaxine Hcl Er 150 Mg Cap.Er.24h) 300 mg PO DAILY [facility] Last Admin: 03/18/25 08:57 Dose: 300 mg Allergies Allergies Allergy/AdvReac Type Severity Reaction Status Date / Time morphine (MORPHINE) Allergy Intermediate PALPITATIONS, Verified 03/13/25 15:12 tachicardia quetiapine (Seroquel) Allergy Intermediate Aggitation Verified 03/13/25 15:12 orphenadrine (ORPHENADRINE) AdvReac Intermediate RAPID Verified 03/13/25 15:12 HEART RATE Assessment & Plan Assessment & Plan (1) Major depressive disorder with psychotic features: Status: Acute Code(s): F32.3 - Major depressive disorder, single episode, severe with psychotic features (2) Anxiety disorder, unspecified: Status: Acute Code(s): F41.9 - Anxiety disorder, unspecified (3) Diabetes: Status: Acute Code(s): E11.9 - Type 2 diabetes mellitus without complications (4) PTSD (post-traumatic stress disorder): Status: Acute Code(s): F43.10 - Post-traumatic stress disorder, unspecified Plan HPI: Pt. is a 65 year old, Slovak, Croatian speaking female with hx of MDD who was BIBA secondary to endorsing auditory and visual hallucinations. Pt. reports that when she closes her eyes , she sees a man with a bomb , and it is making her anxious. Upon assessment, pt. denies suicidal ideation, plan, or intent. Pt. endorses passive homicidal ideation when asked stating, when I get mad . Pt. reports that she has been feeling depressed and very anxious as of recently. Pt. reports that she cannot sleep due to voices telling her things when she closes her eyes. Pt. states, the voices don't let me sleep. Pt. denies the voices being command in nature, however is wondering what their intentions are. Pt. believes that the man she is seeing, looks like her son. Formulation/clinical reasoning: increased in depression and anxiety, experience AVH that affects sleep and anxiety with passive HI. Hx of PTSD, MDD and unspecified anxiety d/o. Given above information, patient would benefit in restrictive environment for own safety, medication management and refer patient to OP psychiatric services for aftercare. Hospital course: 03/14/25: Continue with all home meds Place on Diabetic protocol. Monitor for hypo/hyperglycemia. 03/15 Patient reports up until this past week sleeping fine...no anxiety...and then one day last week...saw this man in her mind... She says: no sleep for 2 nights since anxious... had a lot of people in my mind...the first man was speaking to to meet through my mind and she talked back to him in her mind. She said he was like an alien..He wanted to meet in [place] her girl (daughter). She sees this man is real but he was in her mind if she tried to reach out and touch him he would disappear. Later she had another episode and saw a lot of people again in my mind... I did not know them so I was anxious Patient told her who had her come to the hospital. Since she has been here she has not been seeing or hearing anything in his starting to feel better Patient shared she has had episodes like this in the past. She has shares she had an imaginary friends she was little but she has not seeing this friend for close to 20 years. This imaginary friend would talk to her, was usually nice but could also be aggressive, tell her to grab people through the neck, tell her she had lara, that she could fly, that she could kill... Patient reports takes meds daily. Says a few weeks ago she was re-started on abilify ; denies substance abuse With reality testing and discussion, patient reports that she agrees this is probably been her mind playing tricks on her. Regarding diabetic protocol/insulin sliding scale, patient hemoglobin A1c 5.7; does not have diabetes so will discontinue Impression: Seems that patient has likely schizoaffective disorder; she is somewhat a limited historian so it is not totally clear but this diagnosis fits her presentation and report. Not sure what triggered this recent event but so far she seems like she is returning to baseline. Will continue to monitor. If remains stable will proceed with discharge planning 03/16 Patient reports she is feeling better and that she slept like a baby. She denies any AVH and is not talking about paranoid ideations. Patient has been provided collateral and says that such episodes have been happening for decades , 40 years. Discussed this with patient who agrees and agrees to increase home medication Abilify. -patient's episode of been happening for decades; recently started on Abilify 2 mg which has not prevented such episodes; will increase dose 03/17: Patient found sitting alone in the break room watching TV. She states that she feels Great, and ready to return home to her . She states that her has not been able to visit her because he has a bad flu. However, they have been communicating over the phone. No anxiety or depression. No SI/HI/AVH. Continue current treatment regimen. She will start increased Abilify dose tomorrow. 03/18 Patient says she is doing good and looking forward to going home; no AVH and feels back to her regular self. -later in the day patient reported to nursing staff she is having a gout flare and asked for medication treatment; started on naproxen Impression: Patient has returned to baseline. She is in good mood, no depression, no anxiety, no AVH sleeping and eating well. Patient feels back to her regular self. She returns to her supportive and has outpatient providers already established. Tolerating increasing medication. Patient is not in imminent risk for harm to self or others and appropriate to return to the community for treatment Plan Patient on 15 minute checks for safety. Admitted to [facility]. CV. Started naproxen for gout INCREASED to Abilify 4 mg; if symptoms return will likely increase Continue venlafaxine XL 300 mg DC insulin sliding scale; hemoglobin A1c 5.7; Work with treatment team to do collateral diagnostic if necessary Patient educated on: diagnosis, medication risk/benefits and medical condition Informed Consent: understands Reason for continued inpatient stay Substantial Risk for: stable for discharge Time Spent With Patient Time: Total time managing care of this patient today ____ minutes.
[2025-03-18 20:00] VITALS: BP 128/66; PULSE 80; TEMP 36.9; O2SAT 96
--- NOTE | 2025-03-18 21:01 | P.DS_ITS ---
DS: Providers Provider Date of Service: 03/19/25 Date of admission: 03/14/25 17:00 Date of discharge: 03/19/25 Primary care physician: Elizabeth Goncalves MD Attending physician on admission: Danish Argueta Attending physician on discharge: Danish Argueta DS: Diagnosis Discharge Diagnosis (1) Major depressive disorder with psychotic features: Status: Acute (2) Anxiety disorder, unspecified: Status: Acute (3) Diabetes: Status: Acute (4) PTSD (post-traumatic stress disorder): Status: Acute DS: Medications Discharge Medications Home Medications: Home Medications ?Medication ?Instructions ?Recorded ?Confirmed trazodone 100 mg tablet 300 mg PO BEDTIME 01/23/24 1 05/13/24 venlafaxine 150 mg 300 mg PO QAM 01/23/2403/13 capsule,extended release 24 hr clonazepam 0.5 mg tablet 0.5 mg PO DAILY PRN Anxiety 03/13/25 03/13/25 melatonin 5 mg tablet 10 mg PO BEDTIME PRN Insomni a 03/13/25 03/13/25 pregabalin 225 mg capsule 225 mg PO BID 03/13/2503/13 Previous Rx's ?Medication ?Instructions ?Recorded clonazepam 1 mg tablet 1 mg PO BID 30 days #60 tabs 12/16/22 hydrochlorothiazide 50 mg tablet 50 mg PO DAILY #30 ta bs 08/12/23 metformin 500 mg tablet,extended 500 mg PO BIDWM #60 t abs 08/12/23 release 24 hr aripiprazole 2 mg tablet 4 mg (2 x 2 mg) PO DAILY 30 days 03/18/25 #60 tabs naproxen 250 mg tablet 250 mg PO TID 5 days #15 tab s 03/18/25 Mental Status Exam Mental Status Exam Narrative: Appearance: Casually dressed in casual attire, adequate hygiene and grooming Behavior: Calm and cooperative, friendly. Eye contact is appropriate; no signs of psychomotor agitation/retardation Speech: Normal volume and prosody Thought process: Logical and goal-directed Thought content: On treatment and returning home Mood: Good Affect: Mood-congruent SI: Denies HI: Denies VH/AH: None Delusions: Not apparent Insight/judgment: Fair insight and judgment Data Data Completed and Pending Completed studies during hospitalization [Text1]: 03/13/25 03/13/25 03/14/25 15:35 23:28 21:19 WBC 7.1 RBC 4.89 Hgb 11.8 L Hct 37.4 MCV 76.5 L MCH 24.1 L MCHC 31.6 RDW 19.2 H Plt Count 261 MPV 10.5 Immature Gran % (Auto) 0.4 Neut % (Auto) 52.9 Lymph % (Auto) 34.9 Richardson % (Auto) 9.4 Eos % (Auto) 2.1 Baso % (Auto) 0.3 Lymph # (Auto) 2.5 Richardson # (Auto) 0.7 Eos # (Auto) 0.2 Baso # (Auto) 0.0 Abs Immat Gran (auto) 0.03 Absolute Neuts (auto) 3.8 Absolute Nucleated RBC 0.000 Nucleated RBC % (auto) 0.0 Sodium 143 Potassium 3.7 Chloride 105 Carbon Dioxide 25 Anion Gap 17 BUN 20 H Creatinine 1.05 Estim Creat Clear Calc 53.5 Estimated GFR 53 POC Glucose 90 Random Glucose 68 Estimat Average Glucose Hemoglobin A1c % Calcium 8.9 Magnesium Total Bilirubin 0.2 AST 24 ALT 13 Alkaline Phosphatase 81 Total Protein 7.4 Albumin 4.4 Triglycerides Cholesterol LDL Cholesterol, Calc HDL Cholesterol Vitamin B12 Folate TSH Free T4 Urine Color Yellow Urine Appearance Clear Urine pH 5.0 Ur Specific [place] 1.020 Urine Protein Negative Urine Glucose (UA) Negative Urine Ketones Negative Urine Blood Negative Urine Nitrite Negative Ur Leukocyte Esterase Trace H Urine RBC 0-2 Urine WBC 0-5 Ur Squamous Epith Cells 3-5 Urine Bacteria Trace Hyaline Casts 0-2 Urine Opiates Screen Not Detected Ur Buprenorphine Scrn Not Detected Ur Oxycodone Screen Not Detected Urine Methadone Screen Not Detected Urine Fentanyl Screen Not Detected Ur Barbiturates Screen Not Detected Ur Phencyclidine Scrn Not Detected Ur Amphetamines Screen Not Detected U Benzodiazepines Scrn Not Detected Urine Cocaine Screen Not Detected U Marijuana (THC) Screen Not Detected Ethyl Alcohol < 10 03/15/25 03/15/25 03/15/25 08:12 09:00 09:34 WBC RBC Hgb Hct MCV MCH MCHC RDW Plt Count MPV Immature Gran % (Auto) Neut % (Auto) Lymph % (Auto) Richardson % (Auto) Eos % (Auto) Baso % (Auto) Lymph # (Auto) Richardson # (Auto) Eos # (Auto) Baso # (Auto) Abs Immat Gran (auto) Absolute Neuts (auto) Absolute Nucleated RBC Nucleated RBC % (auto) Sodium Potassium Chloride Carbon Dioxide Anion Gap BUN Creatinine Estim Creat Clear Calc Estimated GFR POC Glucose 99 Random Glucose Estimat Average Glucose 117 Hemoglobin A1c % 5.7 Calcium Magnesium 2.0 Total Bilirubin AST ALT Alkaline Phosphatase Total Protein Albumin Triglycerides 147 Cholesterol 223 H LDL Cholesterol, Calc 131 H HDL Cholesterol 63 Vitamin B12 260 Folate 10.4 TSH 2.52 Free T4 0.87 Urine Color Urine Appearance Urine pH Ur Specific [place] Urine Protein Urine Glucose (UA) Urine Ketones Urine Blood Urine Nitrite Ur Leukocyte Esterase Urine RBC Urine WBC Ur Squamous Epith Cells Urine Bacteria Hyaline Casts Urine Opiates Screen Ur Buprenorphine Scrn Ur Oxycodone Screen Urine Methadone Screen Urine Fentanyl Screen Ur Barbiturates Screen Ur Phencyclidine Scrn Ur Amphetamines Screen U Benzodiazepines Scrn Urine Cocaine Screen U Marijuana (THC) Screen Ethyl Alcohol 03/15/25 12:14 WBC RBC Hgb Hct MCV MCH MCHC RDW Plt Count MPV Immature Gran % (Auto) Neut % (Auto) Lymph % (Auto) Richardson % (Auto) Eos % (Auto) Baso % (Auto) Lymph # (Auto) Richardson # (Auto) Eos # (Auto) Baso # (Auto) Abs Immat Gran (auto) Absolute Neuts (auto) Absolute Nucleated RBC Nucleated RBC % (auto) Sodium Potassium Chloride Carbon Dioxide Anion Gap BUN Creatinine Estim Creat Clear Calc Estimated GFR POC Glucose 89 Random Glucose Estimat Average Glucose Hemoglobin A1c % Calcium Magnesium Total Bilirubin AST ALT Alkaline Phosphatase Total Protein Albumin Triglycerides Cholesterol LDL Cholesterol, Calc HDL Cholesterol Vitamin B12 Folate TSH Free T4 Urine Color Urine Appearance Urine pH Ur Specific [place] Urine Protein Urine Glucose (UA) Urine Ketones Urine Blood Urine Nitrite Ur Leukocyte Esterase Urine RBC Urine WBC Ur Squamous Epith Cells Urine Bacteria Hyaline Casts Urine Opiates Screen Ur Buprenorphine Scrn Ur Oxycodone Screen Urine Methadone Screen Urine Fentanyl Screen Ur Barbiturates Screen Ur Phencyclidine Scrn Ur Amphetamines Screen U Benzodiazepines Scrn Urine Cocaine Screen U Marijuana (THC) Screen Ethyl Alcohol DS: Summary Hospital Course Hospital Course: HPI: Pt. is a 65 year old, Citizen Of [place], Scottish speaking female with hx of MDD who was BIBA secondary to endorsing auditory and visual hallucinations. Pt. reports that when she closes her eyes , she sees a man with a bomb , and it is making her anxious. Upon assessment, pt. denies suicidal ideation, plan, or intent. Pt. endorses passive homicidal ideation when asked stating, when I get mad . Pt. reports that she has been feeling depressed and very anxious as of recently. Pt. reports that she cannot sleep due to voices telling her things when she closes her eyes. Pt. states, the voices don't let me sleep. Pt. denies the voices being command in nature, however is wondering what their intentions are. Pt. believes that the man she is seeing, looks like her son. Formulation/clinical reasoning: increased in depression and anxiety, experience AVH that affects sleep and anxiety with passive HI. Hx of PTSD, MDD and unspecified anxiety d/o. Given above information, patient would benefit in restrictive environment for own safety, medication management and refer patient to OP psychiatric services for aftercare. Hospital course: 03/14/25: Continue with all home meds Place on Diabetic protocol. Monitor for hypo/hyperglycemia. 03/15 Patient reports up until this past week sleeping fine...no anxiety...and then one day last week...saw this man in her mind... She says: no sleep for 2 nights since anxious... had a lot of people in my mind...the first man was speaking to to meet through my mind and she talked back to him in her mind. She said he was like an alien..He wanted to meet in [place] her girl (daughter). She sees this man is real but he was in her mind if she tried to reach out and touch him he would disappear. Later she had another episode and saw a lot of people again in my mind... I did not know them so I was anxious Patient told her who had her come to the hospital. Since she has been here she has not been seeing or hearing anything in his starting to feel better Patient shared she has had episodes like this in the past. She has shares she had an imaginary friends she was little but she has not seeing this friend for close to 20 years. This imaginary friend would talk to her, was usually nice but could also be aggressive, tell her to grab people through the neck, tell her she had lara, that she could fly, that she could kill... Patient reports takes meds daily. Says a few weeks ago she was re-started on abilify ; denies substance abuse With reality testing and discussion, patient reports that she agrees this is probably been her mind playing tricks on her. Regarding diabetic protocol/insulin sliding scale, patient hemoglobin A1c 5.7; does not have diabetes so will discontinue Impression: Seems that patient has likely schizoaffective disorder; she is somewhat a limited historian so it is not totally clear but this diagnosis fits her presentation and report. Not sure what triggered this recent event but so far she seems like she is returning to baseline. Will continue to monitor. If remains stable will proceed with discharge planning 03/16 Patient reports she is feeling better and that she slept like a baby. She denies any AVH and is not talking about paranoid ideations. Patient has been provided collateral and says that such episodes have been happening for decades , 40 years. Discussed this with patient who agrees and agrees to increase home medication Abilify. -patient's episode of been happening for decades; recently started on Abilify 2 mg which has not prevented such episodes; will increase dose 03/17: Patient found sitting alone in the break room watching TV. She states that she feels Great, and ready to return home to her . She states that her has not been able to visit her because he has a bad flu. However, they have been communicating over the phone. No anxiety or depression. No SI/HI/AVH. Continue current treatment regimen. She will start increased Abilify dose tomorrow. 03/18 Patient says she is doing good and looking forward to going home; no AVH and feels back to her regular self. -later in the day patient reported to nursing staff she is having a gout flare and asked for medication treatment; started on naproxen Impression: Patient has returned to baseline. She is in good mood, no depression, no anxi ety, no AVH sleeping and eating well. Patient feels back to her regular self. She returns to her supportive and has outpatient providers already established. Tolerating increasing medication. Patient is not in imminent risk for harm to self or others and appropriate to return to the community for treatment Status at Discharge Functional status at discharge: independent ambulation Overall status at discharge: patient is back to baseline Time Spent with Patient Time attestation: Total time managing care of this patient today ____ minutes. Time spent: Less than 30 minutes Discharge Plan Discharge Anticipated Discharge Date/Time: 03/19/25 11:57 Patient Disposition: Home, Self-Care Discharge Diagnosis: PTSD Referrals: [facility]: Allyn Farris (Therapist) [Other] - 03/22/25 1:00 pm Referral Note: Scheduled therapy appointment with therapist [facility]: DR. Resendiz (psychiatry) [Other] - 04/21/25 9:00 am Referral Note: Scheduled psychiatry appointment Elizabeth Dunn MD [Primary Care Provider, Internal Medicine] - 1 Week Discharge Medications: New naproxen 250 mg Tablet 250 mg PO TID 5 Days Qty: 15 0RF Continued clonazepam 1 mg tablet 1 mg PO BID 30 Days Qty: 60 0RF hydrochlorothiazide 50 mg tablet 50 mg PO DAILY Qty: 30 0RF metformin 500 mg Tablet Extended Release 24 Hr 500 mg PO BIDWM Qty: 60 0RF clonazepam 0.5 mg Tablet 0.5 mg PO DAILY PRN (Reason: Anxiety) pregabalin 225 mg capsule 225 mg PO BID melatonin 5 mg tablet 10 mg PO BEDTIME PRN (Reason: Insomnia) venlafaxine 150 mg capsule,extended release 24hr 300 mg PO QAM trazodone 100 mg tablet 300 mg PO BEDTIME Changed aripiprazole 2 mg tablet 4 mg PO DAILY 30 Days Qty: 60 0RF Discharge Orders: Discharge Order (Routine); Ordered 03/19/25 Ordered By: Danish Argueta Diet: Regular diet Activity on Discharge: As tolerated Stand Alone Forms: Patient Portal Discharge page Print Language: Scottish Care Plan Goals: Maintain mood and safe behaviors Take medications as prescribed Practice coping skills Continue with outpatient providers and reach out to them as needed Health Concerns: Mood stability and behaviors Hypertension Neuropathic pain GOUT Plan of Treatment: Follow up with your PCP, psychiatric provider and other outpatient providers regarding above concerns Take medications as prescribed Assessment: Risk assessment at time of discharge:? Patient was interviewed prior to discharge and found to be fully oriented and without any SI or HI. Patient has improved insight and judgment and wants to continue treatment. Patient is not in imminent risk of harm to self or others and has a safety plan that includes presenting to the closest ER or calling 911 if feeling unsafe.? Patient has been observed closely by nursing and unit staff throughout admission; patient has not engaged in any behaviors that suggest dangerousness to self or others and has demonstrated appropriate behaviors and impulse control
[2025-03-19 08:00] VITALS: BP 114/80; PULSE 71; TEMP 36.4; O2SAT 98
[2025-03-19 08:47] VITALS: BP 114/80
[2025-03-19] MEDS: Venlafaxine HCl ER 150 MG CAP.ER.24H 300 MG PO (08:48)
== END 2025-03-19 11:40 | disposition home or self-care (01) | DRG 751 ==
LOC: HO.ED 17:17 → HO.PM5 03-14 17:00
PROVIDERS: Admitting Provider Clinical Nurse Specialist Psychiatric/Mental Health, Adult; Emergency Provider Emergency Medicine; PCP Internal Medicine; Visit Provider Psychiatry & Neurology Psychiatry
DX: F32.3 Major depressive disorder, single episode, severe with psychotic features (principal); R45.850 Homicidal ideations; E11.42 Type 2 diabetes mellitus with diabetic polyneuropathy; F41.9 Anxiety disorder, unspecified; I10 Essential (primary) hypertension; M79.7 Fibromyalgia; F43.10 Post-traumatic stress disorder, unspecified; Z79.84 Long term (current) use of oral hypoglycemic drugs; Z98.84 Bariatric surgery status; Z79.899 Other long term (current) drug therapy
CPT/HCPCS: 36415; 80053; 80061; 80307; 81001; 82607; 82746; 82947; 83036; 83735; 84439; 84443; 85025; 90656; 93005; 99285; S9485

== ENCOUNTER → 2025-03-14 08:32 | Outpatient (BNV) | payer MEDICAID, SELFPAY | PROVIDERS: Admitting Provider Clinical Nurse Specialist Psychiatric/Mental Health, Adult; Emergency Provider Emergency Medicine; PCP Internal Medicine; Visit Provider Internal Medicine Cardiovascular Disease | DX: R94.31 Abnormal electrocardiogram [ECG] [EKG] (principal); Z13.6 Encounter for screening for cardiovascular disorders | CPT/HCPCS: 93010 ==

== ENCOUNTER → 2025-03-14 17:00 | Outpatient (BNV) | payer MEDICAID, SELFPAY | PROVIDERS: Admitting Provider Clinical Nurse Specialist Psychiatric/Mental Health, Adult; Emergency Provider Emergency Medicine; PCP Internal Medicine; Visit Provider Nurse Practitioner Family | DX: E11.9 Type 2 diabetes mellitus without complications (principal) | CPT/HCPCS: 99221 ==

== ENCOUNTER → 2025-03-14 17:00 | Outpatient (BNV) | payer OTHER, SELFPAY | PROVIDERS: Admitting Provider Clinical Nurse Specialist Psychiatric/Mental Health, Adult; Emergency Provider Emergency Medicine; PCP Internal Medicine; Visit Provider Nurse Practitioner Psychiatric/Mental Health | DX: F32.3 Major depressive disorder, single episode, severe with psychotic features (principal); F41.9 Anxiety disorder, unspecified; E11.9 Type 2 diabetes mellitus without complications; F43.10 Post-traumatic stress disorder, unspecified | CPT/HCPCS: 99231; 99232 ==

== ENCOUNTER 2025-03-26 20:24 | Emergency (ER) | payer MEDICAID, SELFPAY ==
--- NOTE | ~2025-03-26 | XR_ITS ---
CLINICAL HISTORY: sob 1 view chest x-ray Comparison: CR/SR - XR CHEST 1 VIEW - 02/22/25 14:[address]/REG/SR - CT ABDOMEN PELVIS W IV CON - 02/11/25 22:16 EDT Findings: Lung inflation is normal. Cardiac and mediastinal silhouettes are normal. Platelike atelectasis in the right mid lung. No pleural effusion or pneumothorax. Coarse bibasilar peribronchial opacities. Severe left glenohumeral joint space narrowing and osteoarthritis. Postsurgical changes status post anterior cervical discectomy and fusion. IMPRESSION: 1. No acute cardiopulmonary findings. 2. Pleural-parenchymal scarring and right platelike atelectasis, unchanged. 3. Coarse bibasilar peribronchial opacities This document has been electronically signed by: Fernando Garcia III, MD PHD on 03/26/2025 22:55:36
[2025-03-26 21:18] VITALS: BP 110/60; BP 120/78; PULSE 79; PULSE 92; RESP 16; TEMP 36.6; O2SAT 95; O2SAT 99; BMI 41.6
[2025-03-26 23:07] LABS: MANUAL DIFF FLAG NO
[2025-03-26 23:08] LABS: Hematocrit 31.3 % (37.0-47.0); Hemoglobin 10.1 g/dl (12.0-16.0); Imm Gran Abs Auto 0.06 X10*3/uL (0.00-0.03); Imm Gran Pct Auto 0.7 % (0.0-0.4); Lymphocytes Absolute Auto 2.5 X10*3/uL (1.2-4.9); Mean Corpuscular HGB Conc 32.3 g/dl (31.0-35.0); Mean Corpuscular Hemoglobin 24.5 pg (27.0-33.0); Mean Corpuscular Volume 75.8 fL (80.0-98.0); NRBC Abs Auto 0.000 X10*3/uL (0.0-0.012); NRBC Pct Auto 0.0 /100WBC (0.0-0.2); Platelet Count 220 X10*3/uL (160-400); Red Blood Count 4.13 X10*6/uL (4.20-5.50); White Blood Count 8.8 X10*3/uL (4.8-10.8)
[2025-03-26 23:22] LABS: Alanine Aminotransferase 14 U/L (0-31); Albumin Level 3.9 g/dL (3.5-5.0); Alkaline Phosphatase 71 U/L (39-117); Anion Gap 13 (12-20); Aspartate Amino Transferase 22 U/L (5-31); Blood Urea Nitrogen 22 mg/dL (9-16); Calcium 8.8 mg/dL (8.4-10.2); Carbon Dioxide 26 mmol/L (22-29); Chloride 107 mmol/L (96-108); Creatinine Clr Calc Pharmacy 72.3; Estimated Glomerular Filt Rate 56; Potassium 4.1 mmol/L (3.3-5.1); Sodium 142 mmol/L (135-145); Total Protein 6.7 g/dL (6.5-8.0)
--- NOTE | 2025-03-26 23:33 | ED_ITS ---
HPI - General Adult General Chief complaint: General Medical Stated complaint: [place] Time Seen by Provider: 03/26/25 22:51 Source: patient Mode of arrival: ambulatory Limitations: no limitations History of Present Illness ED Provider: Dr. Jaffe HPI narrative: 65-year-old female history of asthma diabetes presented hospital today for 2 month of shortness of breath. Patient is also complaining of some right-sided chest pressure. She states she has to shift her breath into the right side of her chest in order to breathe. She has been using inhaler at home without any alleviation. Patient is also complaining of fatigue along with this. She is complaining of right-sided chest pressure. Related Data Home Medications ?Medication ?Instructions ?Recorded ?Confirmed trazodone 100 mg tablet 300 mg PO BEDTIME 01/23/24 1 05/13/24 venlafaxine 150 mg 300 mg PO QAM 01/23/2403/13 capsule,extended release 24 hr clonazepam 0.5 mg tablet 0.5 mg PO DAILY PRN Anxiety 03/13/25 03/13/25 melatonin 5 mg tablet 10 mg PO BEDTIME PRN Insomni a 03/13/25 03/13/25 pregabalin 225 mg capsule 225 mg PO BID 03/13/2503/13 Previous Rx's ?Medication ?Instructions ?Recorded clonazepam 1 mg tablet 1 mg PO BID 30 days #60 tabs 12/16/22 hydrochlorothiazide 50 mg tablet 50 mg PO DAILY #30 ta bs 08/12/23 metformin 500 mg tablet,extended 500 mg PO BIDWM #60 t abs 08/12/23 release 24 hr aripiprazole 2 mg tablet 4 mg (2 x 2 mg) PO DAILY 30 days 03/18/25 #60 tabs naproxen 250 mg tablet 250 mg PO TID 5 days #15 tab s 03/18/25 acetaminophen 500 mg tablet 1,000 mg (2 x 500 mg) PO Q 8H 10 03/27/25 (Tylenol Extra Strength) days #60 tabs azithromycin 250 mg tablet See Rx Instructions PO .COM PLEX #6 03/27/25 (Zithromax) tabs ibuprofen 400 mg tablet 400 mg PO Q8H PRN pain #20 t abs 03/27/25 prednisone 20 mg tablet 40 mg (2 x 20 mg) PO DAILY 7 days 03/27/25 #14 tabs Allergies Allergy/AdvReac Type Severity Reaction Status Date / Time morphine (MORPHINE) Allergy Intermediate PALPITATIONS, Verified 03/26/25 21:20 tachicardia quetiapine (Seroquel) Allergy Intermediate Aggitation Verified 03/26/25 21:20 orphenadrine (ORPHENADRINE) AdvReac Intermediate RAPID Verified 03/26/25 21:20 HEART RATE Review of Systems 2 Review of Systems: Pertinent review of systems as mentioned in HPI. All other system otherwise negative. [facility] Past Medical History [facility] Narrative: Medical history as mentioned in HPI Medical History Weakness Arthritis History of brain inflammation Protrusion of lumbar intervertebral disc Tinnitus Venous insufficiency Osteoarthritis Loss of hair History of headache Fibromyositis Fatigue Hyperlipidemia HTN (hypertension) Continuous opioid dependence Sinusitis Anemia Anxiety Diverticulosis Chronic idiopathic constipation Migraine Asthma Depression Diabetes 1.5, managed as type 2 Fibromyalgia Surgical History History of back surgery History of esophagogastroduodenoscopy (EGD) S/P panniculectomy Hx of hysterectomy Hx of oophorectomy Hx of bilateral breast reduction surgery H/O colonoscopy History of pubovaginal sling Gastric bypass status for obesity Family History Family History Mother Colon cancer Social History Social History Household Members: Spouse Household Members Other:: lives alone Housing: House Are you a primary career development specialist to a significant other at home: No Alcohol intake: never Comment: IV infiltrated Patient Tobacco Use Status: Never used Tobacco Advance Directives: Yes Advance Directives on File: Yes Advance Directives Date on File: 07/24/23 Do you have a plan to hurt others: No Plan service: No Current occupational status: disabled Sexual orientation: Straight/Heterosexual Gender identity: Female Physical Exam ED Exam Exam: General: Pleasant, no distress, interacting appropriately Head: Normacephalic, atraumatic ENT: oral mucosa moist, neck supple, no tracheal deviation Cardiovascular: regular rate, regular rhythm, no murmurs, rubbing, gallops Respiratory: No wheezing appreciated on exam slight diminished lung sounds bilaterally. Neurological: Awake and alert, no facial droop noted Skin: Warm and dry Psychiatric: Appropriate mood and thoughts Vital Signs: Vital Signs - 24 hr 03/26/25 21:18 03/27/25 00:20 Temperature 97.9 F Pulse Rate 79 66 Respiratory Rate 16 16 Blood Pressure 110/60 Pulse Oximetry 95 Oxygen Delivery Method Room Air BMI result Body Mass Index 41.6 Medications Administered Discontinued Medications Generic Name Dose Route Start Last Admin Trade Name Freq PRN Reason Stop Dose Admin Albuterol/Ipratropium 3 ml 03/26/25 23:57 03/27/25 00:19 Albuterol/Iprat 2.5/0.5mg 3 Ml Ampul.Neb INHALE 03/26/25 23:58 3 ml ONCE ONE Administration Medical Decision Making Medical Decision Making [facility] Narrative: This is a 65-year-old female history of asthma diabetes presented hospital today for shortness of breath and right-sided chest pressure. We will plan to obtain a EKG on patient obtain a troponin. At D-dimer onto the patient. We will plan to give patient a DuoNeb treatment here. The patient does have Beto B lines on chest x-ray. This appear to be present on her prior chest x-ray. We will add a BNP to assess for any signs of new onset CHF. Patient's EKG did not show any signs of STEMI. Patient's BNP is not significantly elevated. Patient's troponin is negative here. D-dimer is negative. Patient is complaining of left-sided chest wall tenderness that is reproducible on exam at this time. We will plan to give patient a lidocaine patch ibuprofen and Tylenol. Patient did receive DuoNeb treatment as well. We will plan to start patient on short course of burst dose prednisone for her shortness of breath secondary to asthma. We will cover for any atypical infection with the azithromycin. Encouraged the patient to follow up with primary care doctor she agrees and understands this plan all questions were addressed. Differential Diagnosis Differential Diagnoses: The differential diagnosis associated with the presentation includes Asthma exacerbation, pneumonia, CHF, ACS Admission/Observation Consideration of admission/observation: Escalation of care including admission/observation considered Lab Data [facility] Lab Attestation statement: I reviewed the patient's lab results. 03/26/25 23:03 03/26/25 23:03 Labs: Lab Results 11/15/25 11/16/25 Range/Units 23:03 00:37 WBC 8.8 (4.8-10.8) X10*3/uL RBC 4.13 L (4.20-5.50) X10*6/uL Hgb 10.1 L (12.0-16.0) g/dl Hct 31.3 L (37.0-47.0) % MCV 75.8 L (80.0-98.0) fL MCH 24.5 L (27.0-33.0) pg MCHC 32.3 (31.0-35.0) g/dl RDW 18.6 H (11.0-16.0) % Plt Count 220 (160-400) X10*3/uL MPV 10.8 (9.4-12.3) fL Immature Gran % (Auto) 0.7 H (0.0-0.4) % Neut % (Auto) 60.6 (45-73) % Lymph % (Auto) 28.8 (20-40) % [place] % (Auto) 8.1 (2-11) % Eos % (Auto) 1.5 (0-4) % Baso % (Auto) 0.3 (0-2) % Lymph # (Auto) 2.5 (1.2-4.9) X10*3/uL [place] # (Auto) 0.7 (0.1-1.2) X10*3/uL Eos # (Auto) 0.1 (0.0-0.4) X10*3/uL Baso # (Auto) 0.0 (0.0-0.2) X10*3/uL Abs Immat Gran (auto) 0.06 H (0.00-0.03) X10*3/uL Absolute Neuts (auto) 5.3 (2.0-8.3) x10*3/uL Absolute Nucleated RBC 0.000 (0.0-0.012) X10*3/uL Nucleated RBC % (auto) 0.0 (0.0-0.2) /100WBC D-Dimer High Sensitivty 205 NG/ML Sodium 142 (135-145) mmol/L Potassium 4.1 (3.3-5.1) mmol/L Chloride 107 (96-108) mmol/L Carbon Dioxide 26 (22-29) mmol/L Anion Gap 13 (12-20) BUN 22 H (9-16) mg/dL Creatinine 1.00 (0.5-1.4) mg/dL Estim Creat Clear Calc 72.3 Estimated GFR 56 Random Glucose 76 (60-115) mg/dL Calcium 8.8 (8.4-10.2) mg/dL Total Bilirubin 0.1 (0.0-1.0) mg/dL AST 22 (5-31) U/L ALT 14 (0-31) U/L Alkaline Phosphatase 71 (39-117) U/L Troponin I High Sens < 2.7 (<3.5-17.0) ng/L NT-Pro-B Natriuret Pep 123.9 (<300) pg/mL Total Protein 6.7 (6.5-8.0) g/dL Albumin 3.9 (3.5-5.0) g/dL Influenza Type A (PCR) NEGATIVE (Negative) Influenza Type B (PCR) NEGATIVE (Negative) RSV RNA Qual (PCR) NEGATIVE (Negative) SARS-CoV-2 RNA (RT-PCR) NEGATIVE (Negative) Independent Interpretation I performed an independent interpretation of an: EKG and Plain X-Ray Radiology Impression Discussion of test interpretation with radiology: I have reviewed the radiologist's reading. Chronic Conditions Asthma Discharge Plan Discharge Clinical Impression: Chest wall pain Patient Disposition: Home, Self-Care Instructions: Chest Wall Pain (ED) Prescriptions: New prednisone 20 mg tablet 40 mg PO DAILY 7 Days Qty: 14 0RF azithromycin [Zithromax] 250 mg tablet See Rx Instructions .ROUTE .COMPLEX Qty: 6 0RF Rx Instructions: For 250 mg dose pack: take 500 mg today (day 1), then 250 mg for 4 days (days 2-5) acetaminophen [Tylenol Extra Strength] 500 mg tablet 1,000 mg PO Q8H 10 Days Qty: 60 0RF ibuprofen 400 mg tablet 400 mg PO Q8H PRN (Reason: pain) Qty: 20 0RF No Action clonazepam 1 mg tablet 1 mg PO BID 30 Days Qty: 60 0RF hydrochlorothiazide 50 mg tablet 50 mg PO DAILY Qty: 30 0RF metformin 500 mg Tablet Extended Release 24 Hr 500 mg PO BIDWM Qty: 60 0RF clonazepam 0.5 mg Tablet 0.5 mg PO DAILY PRN (Reason: Anxiety) pregabalin 225 mg capsule 225 mg PO BID melatonin 5 mg tablet 10 mg PO BEDTIME PRN (Reason: Insomnia) aripiprazole 2 mg tablet 4 mg PO DAILY 30 Days Qty: 60 0RF naproxen 250 mg Tablet 250 mg PO TID 5 Days Qty: 15 0RF venlafaxine 150 mg capsule,extended release 24hr 300 mg PO QAM trazodone 100 mg tablet 300 mg PO BEDTIME Print Language: Armenian
[2025-03-26 23:45] LABS: Resp Syncy Virus RNA Qual PCR NEGATIVE (Negative); SARS COV2 PCR INHOUSE NEGATIVE (Negative)
--- OUTSIDE RECORDS SUMMARY | 2025-03-26 23:46 | XMS_ITS | Clinical Summary ---
Author Organization [address] [facility] Address [address] [place] [address] Phone Care Team Providers Care Gluing Machine Operator Automatic Name Role Phone Elizabeth Dunn MD Primary [...] sinusitis 03/18/2024 Microcytic anemia 03/18/2024 Benzodiazepine dependence ([facility] V24, [facility] V28) 03/18/2024 Blurring of visual image 03/18/2024 Chronic idiopathic constipation 03/18/2024 T2DM (type 2 diabetes mellitus) ([facility] V24, CM S/[facility] V28) 03/18/2024 Injury of kidney [...] topic Insurance MEDICAID - [place] Care Teams Gluing Machine Operator Automatic Relationship Specialty Start Date End Date Elizabeth Dunn MD [address] [phone] PCP - General Internal Medicine 02/12/24
--- OUTSIDE RECORDS SUMMARY | 2025-03-26 23:46 | XMS_ITS | Clinical Summary ---
Author Organization [facility], Address [address] [place] [address] Phone Care Team Providers Care Room Worker Name Role Phone Elizabeth Dunn MD [...] Calculated 126 0 - 160 mg/dL 05/31/2020 [facility] Provider LAB BLOOD ORDERABLES Sandy l Result from Last 3 Months or Most Recently Relevant to Health Maintenance Insurance [place] Member Subscriber Plan / Payer (Ef fective 2020-Present) Name:Jose Antonio Rivasda Relation to Subscriber:Self Name:Lelo Rivas Payer ID:Not on file Group ID:Not on file Type:Not on file Address: [address] Medicaid [place] Care Teams Room Worker Relationship Specialty Start Date End Date Elizabeth Dunn MD [address] [place] [id number] PCP - General Internal Medicine 11/17/20
--- NOTE | 2025-03-26 23:57 | ECG_ITS ---
Test Reason : CP Blood Pressure : */* mmHG Vent. Rate : 71 BPM Atrial Rate : 71 BPM P-R Int : 200 ms QRS Dur : 90 ms QT Int : 424 ms P-R-T Axes : 55 -8 31 degrees QTcB Int : 460 ms Normal sinus rhythm Septal infarct (cited on or before 14-Mar-2025) Abnormal ECG When compared with ECG of 14-Mar-2025 08:38, Questionable change in initial forces of Anteroseptal leads Referred By: Mercedes Jaffe Electronically Signed By: JULIO C FULTON MD
[2025-03-27] MEDS: Albuterol/Iprat 2.5/0.5MG 3 ML AMPUL.NEB INHALE (00:19)
[2025-03-27 00:20] VITALS: PULSE 66; RESP 16; O2SAT 97
[2025-03-27 00:50] LABS: D Dimer High Sensitivity 205 NG/ML
[2025-03-27 00:52] LABS: NT Pro B Type Natriuretic Pept 123.9 pg/mL (<300)
[2025-03-27 01:02] LABS: Troponin-I High Sensitivity < 2.7 ng/L (<3.5-17.0)
[2025-03-27 02:36] VITALS: BP 110/72; PULSE 73; RESP 16; TEMP 36.6; O2SAT 95
[2025-03-27] MEDS: Lidocaine 4 % Patch ADH..PATCH 1 PATCH TRANSDERMA (02:41)
== END 2025-03-27 02:59 | disposition home or self-care (01) ==
PROVIDERS: Emergency Provider Student in an Organized Health Care Education/Training Program; PCP Internal Medicine
DX: R07.89 Other chest pain (principal); J45.909 Unspecified asthma, uncomplicated; I10 Essential (primary) hypertension; E13.9 Other specified diabetes mellitus without complications; Z88.5 Allergy status to narcotic agent; Z88.8 Allergy status to other drugs, medicaments and biological substances
CPT/HCPCS: 36415; 71045; 80053; 83880; 84484; 85025; 85379; 87637; 93005; 94640; 99284; 99285

== ENCOUNTER → 2025-03-26 21:50 | Outpatient (BNV) | payer MEDICAID, SELFPAY | PROVIDERS: Emergency Provider Student in an Organized Health Care Education/Training Program; Visit Provider Radiology Diagnostic Radiology | DX: R91.8 Other nonspecific abnormal finding of lung field (principal); J98.4 Other disorders of lung | CPT/HCPCS: 71045 ==

== ENCOUNTER → 2025-03-26 23:57 | Outpatient (BNV) | payer MEDICAID, SELFPAY | PROVIDERS: Emergency Provider Student in an Organized Health Care Education/Training Program; PCP Internal Medicine; Visit Provider Internal Medicine Cardiovascular Disease | DX: I25.2 Old myocardial infarction (principal) | CPT/HCPCS: 93010 ==

== ENCOUNTER 2025-04-04 04:44 | Emergency (ER) | payer MEDICAID, SELFPAY ==
[2025-04-04 04:52] VITALS: BP 135/80; PULSE 86; RESP 16; TEMP 36.6; O2SAT 94; BMI 29.0
--- NOTE | 2025-04-04 04:54 | ECG_ITS ---
Test Reason : pain Blood Pressure : */* mmHG Vent. Rate : 82 BPM Atrial Rate : 82 BPM P-R Int : 172 ms QRS Dur : 96 ms QT Int : 400 ms P-R-T Axes : 57 -28 50 degrees QTcB Int : 467 ms Normal sinus rhythm Minimal voltage criteria for LVH, may be normal variant ( R in aVL ) Borderline ECG When compared with ECG of 27-Mar-2025 00:23, Criteria for Septal infarct are no longer Present Referred By: Tylor Covarrubias Electronically Signed By: Kristofer Pitts
[2025-04-04 05:21] LABS: MANUAL DIFF FLAG NO
[2025-04-04 05:22] LABS: Hematocrit 38.8 % (37.0-47.0); Hemoglobin 12.5 g/dl (12.0-16.0); Imm Gran Abs Auto 0.14 X10*3/uL (0.00-0.03); Imm Gran Pct Auto 1.3 % (0.0-0.4); Lymphocytes Absolute Auto 3.0 X10*3/uL (1.2-4.9); Mean Corpuscular HGB Conc 32.2 g/dl (31.0-35.0); Mean Corpuscular Hemoglobin 24.1 pg (27.0-33.0); Mean Corpuscular Volume 74.9 fL (80.0-98.0); NRBC Abs Auto 0.000 X10*3/uL (0.0-0.012); NRBC Pct Auto 0.0 /100WBC (0.0-0.2); Platelet Count 255 X10*3/uL (160-400); Red Blood Count 5.18 X10*6/uL (4.20-5.50); White Blood Count 10.6 X10*3/uL (4.8-10.8)
--- OUTSIDE RECORDS SUMMARY | 2025-04-04 05:25 | XMS_ITS ---
Author Organization [employer] Address [address] [facility] [address] [place] [address] Care Team Providers Care Toll Relief Operator Name Role Phone Elizabeth Dunn MD Primary Care Provide r Kai Bowden RN Unavailable [phone] Manuela Melendez Unavailable CM Complex Status:Outreach In Progress (Enrolling) Start date:02/08/2025 Enrollment reason:ADT Feed Overview ED- [place] [facility] [place]. Case Team Name Relationship Phone Kai Bowden RN(Responsible Staff) Registered [employer] nguyen [phone] Continued Care and Services Coordination
--- OUTSIDE RECORDS SUMMARY | 2025-04-04 05:25 | XMS_ITS | Patient Health Record ---
Author Organization [facility] Address [address] [place] [address] Care Team Providers Care Carton Stenciler Name Role Phone SHAHRZAD ENRIQUE Primary Care Provider Fraicsco Cruz [phone] Allergies Allergen (clinical drug ingredient) Drug/Non Drug Allergy documented on EMR Reaction Allergy Type Onset Date Status morphine Morphine Sulfate Unknown Drug Allergy Active quetiapine Seroquel Unknown Drug Allergy Active Reason For Referral No Information Medications Medication SIG (Take, Route, Frequency, Duration) Notes Start Date End Date Status oxyCODONE-Acetaminophen 10-3 25 MG Tablet 1 tablet as needed Orally every 6 hrs Active traZODone HCl 100 MG Tablet 2 tablets Or ally at hs Active hydroCHLOROthiazide 12.5 MG Capsule 1 tablet Orally two times a day Active clonazePAM 1 MG Tablet Orally 3 times Active Cyclobenzaprine HCl 5 MG Tablet 1 tablet Orally one or two times a day Active Venlafaxine HCl 75 MG Tablet 1 tablet wi th food Orally Twice a day Active Social History Social History Additional Details Category Social Info Options Details Miscellaneous: Marital status: Occupation: disabled Section Notes: Nonssmoker; no alcohol Problems Problem Type SNOMED Code ICD Code Onset Dates Problem Status W/U Status Risk Notes Problem Screening for malignant neoplasm of colon (339345786) Encounter for screening for malignant neoplasm of colon (Z12.11) Active confirmed Problem History of adenomatous polyp of colon (351218877) History of adenomatous polyp of colon (Z86.010) Active confirmed Problem Screening for malignant neoplasm of rectum (192545578) Encounter for screening for malignant neoplasm of rectum (Z12.12) Active confirmed Problem Family History of Cancer of Colon (Situation) (657650190) Family history of colon cancer (Z80.0) Active confirmed Problem Long-term current use of drug therapy (887812334) Long-term use of high-risk medication (Z79.899) Active confirmed Plan Of Treatment Pending Test Test Name Order Date GI BIOPSY 02/05/2016 Future Test Test Name Order Date COLONOSCOPY 10/31/2015 Insurance Providers Payer Name Payer Address Payer Phone Subscriber Number Group Number Insured Name Patient Relationship to Insured Coverage Start Date Coverage End Date [facility] [address] [facility] [place] [phone] [id number] MICHAEL SUGGS Self - patient is the insured [place] OF [place] [facility] [address] [place] [address] [id number] MICHAEL SUGGS Self - patient is the insured Medical (General) History Medical History History ICD Code Colonoscopy 2004 and 2009 with small tub ular adenomas removed Depression/Anxiety Fibromyalgia Fluid retention Denies AK,DM,CVA,Lung disease,renal dise ase Surgical History Surgery Date(Month/Year) Laparoscopic gastric bypass in 2005 Breast reduction Panniculectomy Hysterectomy with left oophorectomy Neck surgery--for a disc
--- OUTSIDE RECORDS SUMMARY | 2025-04-04 05:25 | XMS_ITS | Encounter Summary ---
Author Organization [employer] Address [address] [facility] [address] Floor [place] [id number] Care Team Providers Care Pediatric Sports Medicine Specialist Name Role Phone Elizabeth Dunn MD Primary Care Provide r Kai Bowden RN Unavailable [phone] Manuela Melendez Unavailable Encounter Details Date Type Department Care Team (Late st Contact Info) Description 01/12/2025 Orders Only [facility] MEDICINE [address] [place] [address] Elizabeth Dunn MD [address] [place] [address] Social History Tobacco Use Types Packs/Day Years [...] Care Team (Late st Contact Info) Description 04/04/2025 1:00 PM EST Office Visit [facility] [address] [place] [address] Elizabeth Dunn MD [address] [place] [address] 06/07/2025 2:30 PM EST Office Visit [facility] OPTOMETRY [address] [place] [address] Dawson, Mulu, OD [address] [place] [address] documented as of this encounter Visit Diagnoses Not on filedocumented in this encounter Additional Health Concerns Assessment Noted Time PHQ-9 Depression Total Score: 0 08/20/19 24 2:32 PM EDT documented as of this encounter Care Teams Pediatric Sports Medicine Specialist Relationship Specialty Start Date End Date Elizabeth Dunn MD [address] [place] [address] PCP - General Family Medicine 03/17/18 Kai Bowden, MATT [address] [place] [address] Registered Nurse Family Medicine 02/08/25 Manuela Melendez 02/08/25 [employer] Education DirectorExplosive Operator Supervisor 02/07/23 documented as of this encounter
--- OUTSIDE RECORDS SUMMARY | 2025-04-04 05:25 | XMS_ITS ---
Author Organization [employer] Address [address] [facility] 7[address] [place] [address] Care Team Providers Care Family Consumer Science Teacher Name Role Phone Elizabeth Dunn MD Primary Care Provide r Kai Bowden RN Unavailable [phone] Manuela Melendez Unavailable CHW Complex Status:Outreach In Progress (Enrolling) Start date:02/08/2025 Enrollment reason:ADT Feed Overview ED- [place] [facility] [place]. Case Team Name Relationship Phone Manuela Melendez(Responsible Staff) [phone] Continued Care and Services Coordination
--- OUTSIDE RECORDS SUMMARY | 2025-04-04 05:25 | XMS_ITS | Clinical Summary ---
Author Organization [employer] Address [address] [facility] [address] [place] [address] Care Team Providers Care Molder Fitting Name Role Phone Elizabeth Dunn MD Primary Care Provide r Kai Bowden RN Unavailable [phone] Manuela Melendez Unavailable Allergies Active Allergy [...] DIRECTED BY . 30 patch 1 Active ferrous sulfate 325 (65 Fe) MG EC tabletIndications :Microcytic anemia TAKE 1 TABLET BY MOUTH EVERY DAY. DO NOT CRUSH, CHEW OR SPLIT. 90 tablet Active ARIPiprazole (Abilify) 2 MG tablet Take 2 tablets by mouth Once per day. Active naloxone (Narcan) 4 mg/0.1 mL nasal spray PLEASE SEE ATTACHED FOR DETAILED DIRECTIONS Active traZODone (Desyrel) 100 MG tablet take 3 tablets by mouth every day at bedtime Active Diclofenac Sodium 1 % gelIndications:Fi bromyalgia Apply on affected area twice a day 350 g 3 Active Tirzepatide (Mounjaro) 10 MG/0.5ML solution auto-injectorIndi cations:Type 2 diabetes mellitus without complication, without long-term current use of insulin ([facility]) Inject 10 mg under the skin 1 (one) time per week. 2 mL 025 Active FREESTYLE LITE test stripIndications: Type 2 diabetes mellitus without complication, without long-term current use of insulin ([facility]) Use to test blood sugar 1 times daily 100 each 12 025 2025 Active Lancets miscIndications:T ype 2 diabetes mellitus without complication, without long-term current use of insulin ([facility]) Use to test blood sugar 1 times daily 100 each 1 025 Active Alcohol Swabs 70 % padsIndications:T ype 2 diabetes mellitus without complication, without long-term current use of insulin ([facility]) Use to test blood sugar 1 times daily 100 each 1 025 Active Blood Glucose Monitoring Suppl (FreeStyle Lite) w/Device kitIndications:Ty pe 2 diabetes mellitus without complication, without long-term current use of insulin ([facility]) USE TO TEST BLOOD SUGAR 1 TIMES DAILY 1 kit 025 Active Tirzepatide (Mounjaro) 12.5 MG/0.5ML solution auto-injectorIndi cations:Type 2 diabetes mellitus without complication, without long-term current use of insulin ([facility]) Inject 12.5 mg under the skin 1 (one) time per week. 2 mL 2 025 Active colchicine 0.6 MG tabletIndications :Acute right ankle pain,Right foot pain First day 1.2 mg at the first sign of flare followed by 0.6 mg after 1 hour second day and thereafter: 0.6 mg twice daily until flare resolves 60 tablet 1 025 Active Tirzepatide (Mounjaro) 15 MG/0.5ML solution auto-injectorIndi cations:Type 2 diabetes mellitus without complication, without long-term current use of insulin ([facility]) Inject 15 mg under the skin 1 (one) time per week. 2 mL 3 025 Active pregabalin (Lyrica) 225 MG capsuleIndication s:Chronic bilateral low back pain with left-sided sciatica TAKE 1 CAPSULE BY MOUTH TWICE A DAY 60 capsule 2 025 Active pregabalin (Lyrica) 225 MG capsuleIndication s:Chronic bilateral low back pain with left-sided sciatica TAKE 1 CAPSULE BY MOUTH TWICE A DAY 60 capsule 2 025 2024 Discontinued(R eorder (will not trigger notification to Pharmacy)) Colchicine 0.6 MG capsuleIndication s:Acute right ankle pain,Right foot pain First day 1.2 mg at the first sign of flare followed by 0.6 mg after 1 hour second day and thereafter: 0.6 mg twice daily until flare resolves 60 capsule 1 025 2024 Discontinued Active Problems Problem Noted Date Diagnosed Date Schizoaffective disorder ([facility]) 03/22/2025 Assessment & Plan (03/22/2025 2:46 PM EST): Continue with Abilify 4 mg now instead of 2 mg daily Follow-up with psychiatrist and therapist Acute right ankle pain 02/28/2025 Assessment & [...] 2 diabetes mellitus) 03/18/2024 Assessment & Plan (03/22/2025 2:47 PM EST): Continue with Mounjaro 15 mg weekly Assessment & Plan (2025 4:33 PM EDT): [...] breast 12/09/2023 Lower extremity pain, left 10/20/2023 Assessment & Plan (03/22/2025 2:46 PM EST): Presumably gout Continue with colchicine 0.6 mg daily Status post lumbar spinal fusion 08/20/2023 Assessment & Plan (08/21/2023 12:22 PM EDT): Patient overall looks better she tells me she has pain coming from her lower back to her left foot, she is being manage by pain/vision specialist (medications prescribed by specialist only) Chronic bilateral low back pain with left-sided sciatica 08/20/2023 Assessment & Plan (01/07/2024 2:12 PM EDT): I will increase gabapentin to 600mg TID and refer her back to pain management Pelvic pain 08/20/2023 Assessment & Plan (08/21/2023 12:20 PM EDT): 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 as per patient's request Preop examination [...] Benzodiazepine dependence ([facility]) 10/14/2017 Chronic idiopathic constipation 04/08/2017 Chronic left-sided [...] Encounters Date Type Department Care Team Description 04/01/[address] [address] Elizabeth Dunn MD chart prep 03/31/[address] [address] Elizabeth Dunn MD Chronic bilateral low back pain with left-sided sciatica 03/30/2025 Patient Outreach [address] [address] Elizabeth Dunn MD Care Coordination (C3/W Manuela Melendez, RS initial assessment ) 03/30/2025 Patient Outreach [address] [address] Elizabeth Dunn MD 03/28/2025 3:30 PM EST Telemedicine [address] [address] Nora Martinez RN Chest wall pain 03/28/2025 Travel 03/27/2025 Orders Only GENERIC EXTERNAL DATA DEPARTMENT Provider, Generic External Data 03/26/2025 Orders Only GENERIC EXTERNAL DATA DEPARTMENT Provider, Generic External Data 03/22/2025 2:30 PM EST Telemedicine [address] [phone] Elizabeth Dunn MD Lower extremity pain, left (Primary Dx); Type 2 diabetes mellitus without complication, without long-term current use of insulin (HCC); Schizoaffective disorder, unspecified type (HCC) 03/22/2025 Travel 03/22/2025 Patient Outreach [address] [phone] Elizabeth Dunn MD Transition Of Care (Tcm) (HDF - scheduled) 03/22/[address] [phone] Elizabeth Dunn MD Hospital Follow-up 03/21/[address] [address] Elizabeth Dunn MD Chart Prep 03/15/2025 Patient Outreach [facility] [address] [place] [address] Elizabeth Dunn MD Care Management (C3CM- Initial assessment/enrollment /LVM) 03/13/2025 Orders Only GENERIC EXTERNAL DATA DEPARTMENT Provider, Generic External Data 03/09/2025 Orders Only [address] [address] Elizabeth Dunn MD Acute right ankle pain; Right foot pain 03/09/[address] [address] Elizabeth Dunn MD Nurse Triage 03/08/2025 Patient Outreach [address] [address] Elizabeth Dunn MD Care Coordination (C3/CHW Manuela Melendez, rescheduled initial assessment ) 03/07/2025 Patient Outreach [facility] [address] [place] [address] Elizabeth Dunn MD chest pain 03/07/2025 Patient Outreach [facility] [address] [place] [address] Elizabeth Dunn MD 03/04/2025 Orders Only GENERIC EXTERNAL DATA DEPARTMENT Provider, Generic External Data 03/01/2025 Orders Only [address] [address] Elizabeth Dunn MD Acute right ankle pain; Right foot pain 03/01/[address] [address] Elizabeth Dunn MD Acute right ankle pain; Right foot pain 03/01/2025 Orders Only [address] [address] Elizabeth Dunn MD Right foot pain (Primary Dx); Acute right ankle pain 03/01/2025 Patient Outreach [facility] [address] [place], [place] [phone] Elizabeth Dunn MD Care Management (C3CM- Initial assessment/enrollment /LVM) 03/01/2025 Telephone [facility] [address] [place] [address] Elizabeth Dunn MD 02/28/2025 2:00 PM EDT Office Visit [facility] [address] [place] [phone] Elizabeth Dunn MD Acute right ankle pain; Right foot pain 02/28/2025 Travel 02/28/2025 Telephone [facility] MEDICINE [address] [place] [address] Elizabeth Dunn MD Nurse Triage 02/23/[address] [address] Elizabeth Dunn MD ER Follow-up 02/22/2025 Orders Only GENERIC EXTERNAL DATA DEPARTMENT Provider, Generic External Data 02/21/2025 Results Follow-Up [address] [address] Elizabeth Dunn MD Uric acid 02/15/2025 Orders Only [address] [address] Elizabeth Dunn MD 2025 3:15 PM EDT Office Visit [address] [address] Elizabeth Dunn MD Polyarthralgia (Primary Dx); Right foot pain; Left foot pain; Type 2 diabetes mellitus without complication, without long-term current use of insulin (HCC); Fibromyalgia 2025 Travel 02/11/2025 Orders Only [facility] External Provider, [facility] 02/08/2025 Telephone [facility] MEDICINE [address] [place] [phone] Elizabeth Dunn MD ER Follow-up 02/08/2025 Patient Outreach [address] [address] Elizabeth Dunn MD Care Coordination ([facility]/Juan Jose Melendez, initial assessment scheduled ) 02/08/2025 Patient Outreach [address] [address] Elizabeth Dunn MD Care Coordination ([facility] Manuela Melendez, Chart review ) 02/08/2025 Patient Outreach [facility] [address] [place] [address] Elizabeth Dunn MD Care Coordination ([facility]- chart review) 02/08/2025 Patient Outreach [address] [address] Elizabeth Dunn MD 02/07/2025 Orders Only GENERIC EXTERNAL DATA DEPARTMENT Provider, Generic External Data 02/02/2025 3:00 PM EDT Telemedicine [address] [address] Elizabeth Dunn MD Diabetic mononeuropathy simplex (CMS/HCC) (Primary Dx); 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order, without psychotic features (CMS/HCC); Mild intermittent asthma, unspecified whether complicated; Continuous opioid dependence (CMS/HCC); Fibromyalgia; Dietary counseling; Exercise counseling; Type 2 diabetes mellitus without complication, without long-term current use of insulin (CMS/HCC) 02/02/2025 Travel 02/01/[address] [address] Elizabeth Dunn MD 01/26/2025 3:30 PM EDT Office Visit [address] [phone] Elizabeth Dunn MD Type 2 diabetes mellitus without complication, without long-term current use of insulin (CMS/HCC) (Primary Dx); Fibromyalgia; Acute pain of right shoulder; Class 1 obesity due to excess calories with serious comorbidity and body mass index (BMI) of 34.0 to 34.9 in adult 01/26/2025 Refill [facility] [address] [place] [address] Elizabeth Dunn MD Type 2 diabetes mellitus without complication, without long-term current use of insulin ([facility]) 01/26/2025 Travel 01/25/2025 Telephone [facility] MED[facility] [address] [place] [address] Elizabeth Dunn MD chart prep 01/21/2025 Travel 01/20/2025 Telephone [facility] MED[facility] [address] [place] [address] Elizabeth Dunn MD appt 01/15/2025 Refill [facility] [address] [place] [address] Vanna Chen MD Microcytic anemia 01/14/2025 Telephone [facility] [address] [place] [address] Elizabeth Dunn MD Prior Authorization ( PA: Trish) 01/12/2025 Orders Only [facility] [address] [place] [address] Elizabeth Dunn MD 01/12/2025 Refill [facility] [address] [place] [address] Elizabeth Dunn MD Class 2 severe obesity with serious comorbidity and body mass index (BMI) of 35.0 to 35.9 in adult, unspecified obesity type ([facility]) 01/11/2025 Refill [facility] [address] [place] [address] Elizabeth Dunn MD Chronic midline low back pain with left-sided sciatica 01/04/2025 10:20 AM EDT Office Visit [facility] OPTOMETRY [address] [place] [address] Dawson, Mulu, OD Type 2 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 ([facility]) (Primary Dx) 01/04/2025 Travel from Last 3 Months Immunizations Immunization Administration Dates Next Due DT (pediatric) 07/20/2008 INFLUENZA VACCINE QUADRIVALE NT RECOMBINANT PRESERVATIVE FREE RIV4 03/02/2020 Influenza injectable quadriv alent IIV4 with preservative 03/31/2018,04/08/2017,02/27/2016 Influenza injectable quadriv alent preservative free 08/06/2023,04/21/2023,03/14/2021,06/14 Influenza, Split (incl. ray fied surface antigen) 03/11/2012 Influenza, seasonal, injecta ble, preservative free 03/15/2025,04/07/2024,04/14/2014,02/26 Moderna Covid-19 Vaccine 12+ 12/07/2021, 05/25/2021,09/15/2020,08/18 Moderna [...] Description 04/04/2025 1:00 PM EST Office Visit [facility] MEDIC[facility] [address] [place], [place] [phone] Elizabeth Dunn MD [address] [place], [place] [phone] 06/07/2025 2:30 PM EST Office Visit [facility] OPTOMETRY [address] [place], [place] [phone] Mulu Osman OD [address] [place] [address] Health Maintenance Due Date Last Done Comments CT Colonography 1962 FIT DNA/Cologuard 1962 FIT 1962 FOBT 1962 Sigmoidoscopy 1962 Eye Exam 02/15/1972 Pap Smear 1983 Cervical Cancer Screening 02/15/1992 HPV/Cotest 02/15/1992 RSV Patients and Patients Aged 60 years or older (1 - Risk 50-74 years 1-dose series) 02/15/2012 Pneumococcal Vaccine: 50+ Years (2 of 2 - PCV) 04/14/2015 04/14/2014, 03/12/2000 Diabetes: Urine Protein Screening 01/04/2025 01/05/2024, 01/05/2024, 05/31/2020 Lipid Panel 01/04/2025 01/05/2024, 05/31/2020 COVID-19 Vaccine ( season) 2025 04/07/2024, 08/02/2022, 12/07/2021, Additional history exists Diabetes: Hemoglobin A1C 07/26/2025 025, 07/15/2024, 04/07/2024, Additional history exists Colonoscopy 12/10/2025 12/10/2022, 01/05/2021 Colorectal Cancer Screening 12/10/2025 Alcohol/Substance Use Screening 02/02/2026 02/02/2025 Depression Screening 02/02/2026 02/02/2025, 02/03/20 25 SDOH Screening 02/02/2026 02/02/2025 Diabetes: Foot Exam 2026 2025, Mammogram 02/15/2026 02/15/2025, 05/2023, 02/10/2024, Additional history exists Tobacco Screening 02/28/2026 02/28/2025 Disability Screening 03/22/2026 03/22/2025 DTaP/Tdap/Td Vaccines (3 - Td or Tdap) 12/23/2032 12/23/2022, 06/20/2011, 07/20/2008, Additional history exists HIV Screening Completed 10/23/2020 Hepatitis C Screening Completed 10/23/2020 Zoster Vaccines Completed 02/24/2023, 12/23/2022 Influenza Vaccine Completed 03/15/2025, , 08/06/2023, Additional history exists HIB Vaccines Aged Out [...] Procedure Name Priority Date/Time Associated Diagnosis Comments HOLD GREEN GEL Routine 03/27/2025 12:37 AM EST D DIMER HIGH SENSITIVITY Routine 03/27/2025 12:37 AM EST HIGH SENSITIVITY TROPONIN I Routine 03/26/2025 11:03 PM EST NT-PROBNP Routine 03/26/2025 11:03 PM EST DRUG MONITOR, PANEL 1, SCREEN, URINE Routine 03/13/2025 11:28 PM EST URINALYSIS, COMPLETE, WITH REFLEX TO CULTURE Routine 03/13/2025 11:28 PM EST URINALYSIS WITH REFLEX MICROSCOPIC Routine 03/13/2025 11:28 PM EST GLUCOSE, WHOLE BLOOD Routine 03/04/2025 6:32 PM [...] Recently Relevant to Health Maintenance Results * Hold Green Gel (03/27/2025 12:37 AM EST) Hold Green Gel See Note [facility] Comment:Specimen held untest ed for 24 hours; Call to requestChemistry testing. 03/27/2025 12:3 7 AM EST 03/27/2025 12:42 AM EST us Generic External Data Provider HISTORICAL/NON OR DERABLE LABS Final Result [facility] [address] [place] [phone] * D Dimer High Sensitivity (03/27/2025 12:37 AM EST) [facility] D Dimer High Sensitivity 205 NG/ML [facility] Comment:D-DIMER HS REFERENCE RANGENote: Our assay reports D-Dimer Units (D- DU).The cut-off value for venous thromboembolic (VTE) disease is230 ng/mL. This value has a very high negative predictivevalue when the patient has a low to moderate clinicalprobability of VTE.The upper limit of normal is 243 ng/mL. 03/27/2025 12:3 7 AM EST 03/27/2025 12:40 AM EST Generic External Data Provider LAB BLOOD ORDERAB LES Final Result Performing Organization Address [facility] Co de Phone Number [facility] [address] [place] [phone] * High Sensitivity Troponin I (03/26/2025 11:03 PM EST) Only the most recent of2 resultswithin the time period is included. [facility] TROPONIN I HIGH SENSITIVITY <2.7 <3.5 - 17.0 ng/L [facility] Comment:The [place] high sens itivity Troponin-I results should beused in conjunction with other diagnostic information suchas ECG, clinical observations and information, and patientsymptoms to aid in the diagnosis of CO. 03/26/2025 11:0 3 PM EST 03/27/2025 12:34 AM EST us Generic External Data Provider LAB BLOOD ORDERAB LES Final Result Performing Organization Address [facility] Co de Phone Number [facility] [address] [place] [phone] * NT-proBNP (03/26/2025 11:03 PM EST) Only the most recent of2 resultswithin the time period is included. [facility] NT-proBNP 123.9 <300 pg/mL [facility] Comment:Reference Range:Age Group (years) NT-proBNP (pg/ml) InterpretationAll <300 Negative: HF unlikelyFor patients presenting to the ED with clinical suspicion ofnew onset or worsening HF, see below:18 to <50 >299.9 to <450.0 Grayzone: [id number] to 75 >299.9 to <900.0 other causes of>75 >299.9 to <1800.0 NT-proBNP [id number] to <50 >449.9 Positive: HF [id number] >899.9>75 >1799.9Note: Elevated NT-proBNP levels should be interpreted inthe context of other clinical information. 03/26/2025 11:0 3 PM EST 03/27/2025 12:34 AM EST us Generic External Data Provider LAB BLOOD ORDERAB LES Final Result [facility] [address] [place] [phone] * (ABNORMAL) Urinalysis, Complete, with Reflex to Culture (03/13/2025 11:28 PM EST) Only the most recent of2 resultswithin the time period is included. Color Urine Yellow [facility] Appearance Urine Clear [facility] PH 5.0 5.0 - 9.0 [facility] Glucose Urine UA Negative Negative mg/dL [facility] Urine Blood Negative Negative [facility] Specific Wilder - Urine 1.020 1.005 - 1.025 [facility] Urine Protein Negative Neg-Trace mg/dL [facility] Urine Ketones Negative Negative mg/dL [facility] Nitrite Urine Negative Negative [facility] Leukocyte Esterase Urine Trace(A) Negative [facility] RBC Urine 0-2 0 - 2 /HPF [facility] Urine WBC 0-5 0 - 5 /HPF [facility] Urine Squamous Epithelial Cell 3-5 0 - 2 /HPF [facility] Urine Bacteria Trace None Seen [facility] Hyaline Casts, Urine 0-2 0 - 2 /LPF [facility] 03/13/2025 11:2 8 PM EST 03/13/2025 11:38 PM EST Narrative [facility] - 03/13/2025 11:53 PM EST [id number], [employer] us Generic External Data Provider LAB URINE ORDERAB LES Final Result [facility] [address] [place] [phone] * Drug Monitoring, Panel 1, Screen, Urine (03/13/2025 11:28 PM EST) Opiate Screen Urine Not Detected Not Detect [facility] Comment:Opiate cut-off is 30 0 ng/mL.Positive results are unconfirmed and should not be used fornon-medical purposes. Barbiturates, Urine Not Detected Not Detect [facility] Comment:Barbiturate cut-off is 200 ng/mL.Positive results are unconfirmed and should not be used fornon-medical purposes. Phencyclidine Screen Urine Not Detected Not Detect [facility] Comment:Phencyclidine cut-of f is 25 ng/mL.Positive results are unconfirmed and should not be used fornon-medical purposes. Amphetamine Screen Urine Not Detected Not Detect [facility] Comment:Amphetamine cut-off is 1000 ng/mL.Positive results are unconfirmed and should not be used fornon-medical purposes. Benzodiazepines Screen Urine Not Detected Not Detect [facility] Comment:Benzodiazepine cut-o ff is 200 ng/mL.Positive results are unconfirmed and should not be used fornon-medical purposes. Cocaine Screen Urine Not Detected Not Detect [facility] Comment:Cocaine cut-off is 3 00 ng/mL.Positive results are unconfirmed and should not be used fornon-medical purposes. Cannabinoid Screen Urine Not Detected Not Detect [facility] Comment:Cannabinoid cut-off is 50 ng/mL.Positive results are unconfirmed and should not be used fornon-medical purposes. Methadone Screen, Urine Not Detected Not Detect ng/mL [facility] Comment:Methadone cut-off is 300 ng/mL.Positive results are unconfirmed and should not be used fornon-medical purposes. FENTANYL URINE Not Detected Not Detect [facility] Comment:Fentanyl cut-off is 1 ng/mL.Positive results are unconfirmed and should not be used fornon-medical purposes. Oxycodone Urine Screen Not Detected Not Detect ng/mL [facility] Comment:Oxycodone cut-off is 100 ng/mL.Positive results are unconfirmed and should not be used fornon-medical purposes. Buprenorphine Screen Not Detected Not Detect ng/mL [facility] Comment:Buprenorphine cut-of f is 5 ng/mL.Positive results are unconfirmed and should not be used fornon-medical purposes. 03/13/2025 11:2 8 PM EST 03/13/2025 11:38 PM EST us Generic External Data Provider LAB URINE ORDERAB LES Final Result Performing Organization Address City/State/[facility] Co de Phone Number [facility] [address] [place] [phone] * (ABNORMAL) Urinalysis w/reflex microscopic (03/13/2025 11:28 PM EST) Color Urine Yellow [facility] Appearance Urine Clear [facility] PH 5.0 5.0 - 9.0 [facility] Glucose Urine UA Negative Negative mg/dL [facility] Urine Blood Negative Negative [facility] Specific Wilder - Urine 1.020 1.005 - 1.025 [facility] Urine Protein Negative Neg-Trace mg/dL [facility] Urine Ketones Negative Negative mg/dL [facility] Nitrite Urine Negative Negative [facility] Leukocyte Esterase Urine Trace(A) Negative [facility] [facility] 03/13/2025 11:2 8 PM EST 03/13/2025 11:38 PM EST Narrative [facility] - 03/13/2025 11:46 PM EST [id number], Clean Catch us Generic External Data Provider LAB URINE ORDERAB LES Final Result Performing Organization Address City/[facility] Co de Phone Number [facility] [address] [place] [phone] * Glucose, Whole Blood (03/04/2025 6:32 PM EDT) Only the most recent of2 resultswithin the time period is included. Glucose, Whole Blood 62 60 - 115 mg/dL [facility] Comment:METER #: [id number] 03/04/2025 6:32 PM EDT 03/04/2025 6:36 PM EDT Generic External Data Provider LAB BLOOD ORDERAB LES Final Result Performing Organization Address [facility] Co de Phone Number [facility] [address] [place] [phone] * XR Chest 1 View (02/22/2025 2:39 PM EDT) Anatomical Region Laterality Modality Chest Radiographic Delilah ging 02/22/2025 2:39 PM EDT Narrative 02/22/2025 2:56 PM EDT [address] [address] XRay Report Signed Patient: Lelo Plata MR# : [id number] : 1960 Acct:[id number] Age/Sex: 65 / F ADM Date: 02/22/25 Loc: HO.ED Attending Dr: Ordering Physician: Cortes Hammer MD Date of Service: 02/22/25 Procedure(s): XR chest 1V Accession Number(s): [id number] cc: Elizabeth Dunn MD; Cortes Hammer MD [...] 02/22/25 1453 DD/ 1439 TD/TT: 02/22/25 1445 Drop Hammer Mechanic: Procedure Note Donotuseinterpreter, Image - 02/22/[address] [address] XRay Report Signed Patient: Lelo Plata RMR# : [id number] : 1960cct:[id number] Age/Sex: 65 / FADM Date: 02/22/25 Loc: .ED Attending Dr: Ordering Physician: Cortes Hammer MD Date of Service: 02/22/25 Procedure(s): XR chest 1V Accession Number(s): [id number] cc: Elizabeth Dunn MD; Cortes Hammer MD [...] 02/22/25 1453 DD/ 1439 TD/TT: 02/22/25 1445 Drop Hammer Mechanic: [facility] External Provider IMG XR PROCEDURES Final Result * (ABNORMAL) Basic Metabolic Panel (02/22/2025 2:22 PM EDT) Sodium 139 135 - 145 mmol/L [facility] Potassium 4.0 3.3 - 5.1 mmol/L [facility] Comment:Slight Hemolysis.Int erpret result with caution. Chloride 106 96 - 108 mmol/L [facility] Carbon Dioxide 22 22 - 29 mmol/L [facility] Anion Gap 15 12 - 20 [facility] Urea Nitrogen (BUN) 20(H) 9 - 16 mg/dL [facility] Creatinine, Serum 0.85 0.5 - 1.4 mg/dL [facility] Creatinine Clr Calc Pharmacy 76.0 [facility] Comment:Provided height and weight: 165.1 cm,92.2 kg.eGFR (calculated from the MDRD study equation) and eCrCl(calculated from the Cockcroft-Gault equation) are based ondifferent parameters and may not yield comparable results.If eCrCl result is absurd, please check patient'sheight/weight. Estimated Glomerular Filt Rate >60 [facility] Comment:Chronic Kidney Disea se: Estimated GFR < 60 mL/min/1.05t8Ohqyfk Kidney Disease: Estimated GFR < 15 mL/min/1.73m2 Glucose 60 60 - 115 mg/dL [facility] Calcium 8.6 8.4 - 10.2 mg/dL [facility] 02/22/2025 2:22 PM EDT 02/22/2025 2:25 PM EDT Generic External Data Provider LAB BLOOD ORDERAB LES Final Result [facility] [address] [place] [address] [phone] * (ABNORMAL) CBC auto differential (02/22/2025 1:22 PM EDT) Only the most recent of2 resultswithin the time period is included. White Blood Count 11.8(H) 4.8 - 10.8 X10*3/uL [facility] Red Blood Count 4.72 4.20 - 5.50 X10*6/uL [facility] Hemoglobin 11.5(L) 12.0 - 16.0 g/dl [facility] Hematocrit 35.2(L) 37.0 - 47.0 % [facility] Mean Corpuscular Volume 74.6(L) 80.0 - 98.0 fL [facility] Mean Corpuscular Hemoglobin 24.4(L) 27.0 - 33.0 pg [facility] Mean Corpuscular HGB Conc 32.7 31.0 - 35.0 g/dl [facility] Red Cell Distribution Width 19.5(H) 11.0 - 16.0 % [facility] Platelet Count 222 160 - 400 X10*3/uL [facility] Mean Platelet Volume 11.7 9.4 - 12.3 fL [facility] Neutrophils Percent Auto 67.7 45 - 73 % [facility] Imm Gran Pct Auto 1.1(H) 0.0 - 0.4 % [facility] Lymphocytes Percent Auto 21.6 20 - 40 % [facility] Monocytes Percent Auto 8.5 2 - 11 % [facility] Eosinophils Percent Auto 0.8 0 - 4 % [facility] Basophils Percent Auto 0.3 0 - 2 % [facility] NRBC Pct Auto 0.0 0.0 - 0.2 /100WBC [facility] Neutrophils Absolute Auto 8.0 2.0 - 8.3 x10*3/uL [facility] Imm Gran Abs Auto 0.13(H) 0.00 - 0.03 X10*3/uL [facility] Lymphocytes Absolute Auto 2.6 1.2 - 4.9 X10*3/uL [facility] Monocytes Absolute Auto 1.0 0.1 - 1.2 X10*3/uL [facility] Eosinophils Absolute Auto 0.1 0.0 - 0.4 X10*3/uL [facility] Basophils Absolute Auto 0.0 0.0 - 0.2 X10*3/uL [facility] NRBC Abs Auto 0.000 0.0 - 0.012 X10*3/uL [facility] 02/22/2025 1:22 PM EDT 02/22/2025 1:25 PM EDT Generic External Data Provider LAB BLOOD ORDERAB LES Final Result Performing Organization Address [facility] Co de Phone Number [facility] [address] [place] [address] [phone] * Prothrombin Time-INR (02/22/2025 1:22 PM EDT) Prothrombin Time 11.0 10.9 - 12.4 SEC [facility] INTERNATIONAL NORM RATIO 1.0 0.9 - 1.1 [facility] Comment:INTERNATIONAL NORMAL IZED RATIO (INR) REFERENCE [...] 1:22 PM EDT 02/22/2025 1:25 PM EDT [employer] External Data Provider LAB BLOOD ORDERAB LES Final Result Performing Organization Address [facility] de Phone Number [facility] [address] [place] [address] [phone] * (ABNORMAL) Uric acid (02/18/2025 1:14 PM EDT) Uric Acid 6.3(H) 2.4 - 5.7 mg/dL [facility] Blood Venous blood specimen / Unknown 02/18/2025 1:14 PM EDT 02/18/2025 4:31 PM EDT us Elizabeth Goncalves MD LAB BLOOD ORDERABLES Final Result [facility] [address] [place] [phone] [phone] * BI Mammogram Screening Tomosynthesis Bilateral (02/15/2025 9:05 AM EDT) Anatomical Region Laterality Modality Breast Bilateral Mammography 02/15/2025 9:05 AM EDT Narrative 02/22/2025 9:47 AM EDT [facility] [address] [place] [address] Mammography Report Signed Patient: Lelo Plata MR# : [id number] : 1960 Acct:[id number] Age/Sex: 65 / F ADM Date: 02/15/25 Loc: HO.MAMMO Attending Dr: Elizabeth Goncalves MD Ordering Physician: Elizabeth Dunn MD Results: 1Negative Date of Service: 02/15/25 Follow Up: 1 Year From [facility] Mammogram Procedure(s): MM tomosynthesis screening BI Accession Number(s): [id number] cc: Elizabeth Dunn MD Reason For Exam: [...] in OV> 02/22/2544 DD/ 4 TD/TT: 02/15/25927 Drop Hammer Mechanic: Procedure Note Donotuseinterpreter, Image - 02/22/2025 [facility] [address] [place] [address] Mammography Report Signed Patient: Lelo Plata RMR# : [id number] : 1960cct:[id number] Age/Sex: 65 / FADM Date: 02/15/25 Loc: MAMMO Attending Dr: Elizabeth Goncalves MD Ordering Physician: Elizabeth Dunn MDResults: 1Negative Date of Service: 02/15/25Follow Up: 1 Year From Orig inal Mammogram Procedure(s): MM tomosynthesis screening BI Accession Number(s): [id number] cc: Elizabeth Dunn MD Reason For Exam: [...] in OV> 02/22/2544 DD/ 4 TD/TT: 02/15/25927 Drop Hammer Mechanic: us Elizabeth Goncalves MD IMG BI PROCEDURES Fin al Result * XR Foot 3+ Views Right (02/12/2025 1:30 AM EDT) Anatomical Region Laterality Modality Lower Extremities, Foot Right Radiogra phic Imaging 02/12/2025 1:30 AM EDT Narrative 02/12/2025 1:32 AM EDT [address] [address] XRay Report Signed Patient: Lelo Plata MR# : [id number] : 1960 Acct:[id number] Age/Sex: 64 / F ADM Date: 02/11/25 Loc: HO.ED Attending Dr: Ordering Physician: Perla Turner Date of Service: 02/12/25 Procedure(s): XR foot RT min 3V Accession Number(s): [id number] cc: Elizabeth Dunn MD; Perla Turner Reason [...] in OV> 02/12/25131 DD/ 9 TD/TT: 02/12/25129 Drop Hammer Mechanic: Procedure Note Donclarissainterpreter, Image - 02/12/[address] [address] XRay Report Signed Patient: Lelo Plata RMR# : [id number] : 1960cct:[id number] Age/Sex: 64 / FADM Date: 02/11/25 Loc: HO.ED Attending Dr: Ordering Physician: Perla Turner Date of Service: 02/12/25 Procedure(s): XR foot RT min 3V Accession Number(s): [id number] cc: Elizabeth Dunn MD; Perla Turner Reason [...] in OV> 02/12/25131 DD/ 9 TD/TT: 02/12/25129 Drop Hammer Mechanic: [facility] External Provider IMG XR PROCEDURES Edited Result - Final * CT Abdomen Pelvis w/ Contrast (02/11/2025 11:22 PM EDT) Anatomical Region Laterality Modality Body, Pelvis, Abdomen Computed T omography 02/11/2025 11:2 2 PM EDT Narrative 02/11/2025 11:24 PM EDT [address] [address] [address] Scan Report Signed Patient: Lelo Plata R MR# : [id number] : 1960 Acct:[id number] Age/Sex: 64 / F ADM Date: 02/11/25 Loc: HO.ED Attending Dr: Ordering Physician: Perla Turner Date of Service: 02/11/25 Procedure(s): CT abdomen pelvis w IV con Accession Number(s): [id number] cc: Elizabeth Dunn MD; Perla Turner Report Number: [id number]: Total DLP = 0.00 mGy-cm Reason for [...] in OV> 02/11/252322 DD/ 21 TD/TT: 02/11/252321 Drop Hammer Mechanic: Procedure Note Donotuseinterpreter, Image - 02/11/[address] [place] [address] [address] Scan Report Signed Patient: Lelo Plata RMR# : [id number] : 1960cct:[id number] Age/Sex: 64 / FADM Date: 02/11/25 Loc: HO.ED Attending Dr: Ordering Physician: Perla Turner Date of Service: 02/11/25 Procedure(s): CT abdomen pelvis w IV con Accession Number(s): [id number] cc: Elizabeth Dunn MD; Perla Turner Report Number: [id number]: Total DLP = 0.00 mGy-cm Reason for [...] in OV> 02/11/252322 DD/ 21 TD/TT: 02/11/252321 Drop Hammer Mechanic: us [facility] External Provider IMG CT PROCEDURES Edited Result - Final * XR KUB and Upright 2 Views (02/11/2025 7:34 PM EDT) Anatomical Region Laterality Modality Radiographic Delilah ging 02/11/2025 7:34 PM EDT Narrative 02/11/2025 7:35 PM EDT [address] [address] XRay Report Signed Patient: Lelo Plata MR# : [id number] : 1960 Acct:[id number] Age/Sex: 64 / F ADM Date: 02/11/25 Loc: HO.ED Attending Dr: Ordering Physician: Perla Turner Date of Service: 02/11/25 Procedure(s): XR KUB Accession Number(s): [id number] cc: Elizabeth Dunn MD; Perla Turner Reason for Exam: constipation CLINICAL HISTORY: constipation Abdominal radiographs Comparison: CT/REG/KS/SR - CT ABDOMEN PELVIS W IV CON [...] in OV> 02/11/251933 DD/ 33 TD/TT: 02/11/251933 Drop Hammer Mechanic: Procedure Note Donotuseinterpreter, Image - 02/11/[address] [address] XRay Report Signed Patient: Lelo Plata RMR# : [id number] : 1960cct:[id number] Age/Sex: 64 / FADM Date: 02/11/25 Loc: HO.ED Attending Dr: Ordering Physician: Perla Turner Date of Service: 02/11/25 Procedure(s): XR KUB Accession Number(s): [id number] cc: Elizabeth Dunn MD; Perla Turner Reason for Exam: constipation CLINICAL HISTORY: constipation Abdominal radiographs Comparison: CT/REG/KS/SR - CT ABDOMEN PELVIS W IV CON [...] in OV> 02/11/251933 DD/ 33 TD/TT: 02/11/251933 Drop Hammer Mechanic: us [facility] External Provider IMG XR PROCEDURES Final Result * VASC US Lower Extremity Venous Duplex Bilateral (02/07/2025 9:39 PM EDT) 02/07/2025 9:39 PM EDT Narrative [facility] - 02/07/2025 9:41 PM EDT [facility] [address] [place] [address] Ultrasound Report Signed Patient: Lelo Plata MR# : [id number] : 1960 Acct:[id number] Age/Sex: 64 / F ADM Date: 02/07/25 Loc: HO.ED Attending Dr: Ordering Physician: Kaitlynn Wang Date of Service: 02/07/25 Procedure(s): US venous duplex LE Accession Number(s): [id number] cc: Elizabeth Dunn MD; Kaitlynn Wang Reason [...] in OV> 02/07/252139 DD/ 38 TD/TT: 02/07/252138 Drop Hammer Mechanic: Procedure Note Donotuseinterpreter, Image - 02/07/[address] [address] Ultrasound Report Signed Patient: Lelo Plata RMR# : [id number] : 1960cct:[id number] Age/Sex: 64 / FADM Date: 02/07/25 Loc: HO.ED Attending Dr: Ordering Physician: Kaitlynn Wang Date of Service: 02/07/25 Procedure(s): US venous duplex LE BI Accession Number(s): [id number] cc: Elizabeth Dunn MD; Kaitlynn Wang Reason [...] in OV> 02/07/252139 DD/ 38 TD/TT: 02/07/252138 Drop Hammer Mechanic: [facility] External Provider CV VASC ULAR PROCEDURES Final Result [facility] [address] [place] [phone] * (ABNORMAL) Sed Rate by Modified Nyla (02/07/2025 8:52 PM EDT) Erythrocyte Sedimentation Rate 25(H) 0 - 20 MM/HR [facility] Comment:Patients with polycy themia and many hemoglobin abnormalitiesmay have depressed sed rates whereas patients with anemiamay have elevated sed rates. 02/07/2025 8:52 PM EDT 02/07/2025 8:57 PM EDT us Generic External Data Provider LAB BLOOD ORDERAB LES Final Result Performing Organization Address [facility] Co de Phone Number [facility] [address] [place] [phone] * (ABNORMAL) C-reactive Protein (02/07/2025 8:52 PM EDT) C Reactive Protein 1.09(H) < or = 0.50 mg/dL [facility] 02/07/2025 8:52 PM EDT 02/07/2025 8:57 PM EDT us Generic External Data Provider LAB BLOOD ORDERAB LES Final Result Performing Organization Address [facility] Co de Phone Number [facility] [address] [place] [phone] * Magnesium (02/07/2025 8:52 PM EDT) Pathologist [facility] Magnesium 2.1 1.6 - 2.6 mg/dL [facility] 02/07/2025 8:52 PM EDT 02/07/2025 8:57 PM EDT Generic External Data Provider LAB BLOOD ORDERAB LES Final Result Performing Organization Address [facility] de Phone Number [facility] [address] [place] [phone] * Comprehensive Metabolic Panel (02/07/2025 8:52 PM EDT) Sodium 143 135 - 145 mmol/L [facility] Potassium 4.5 3.3 - 5.1 mmol/L [facility] Chloride 103 96 - 108 mmol/L [facility] Carbon Dioxide 28 22 - 29 mmol/L [facility] Anion Gap 17 12 - 20 [facility] Urea Nitrogen (BUN) 16 9 - 16 mg/dL [facility] Creatinine, Serum 1.06 0.5 - 1.4 mg/dL [facility] Creatinine Clr Calc Pharmacy 62.1 [facility] Comment:Provided height and weight: 165.1 cm,93.44 kg.eGFR (calculated from the MDRD study equation) and eCrCl(calculated from the Cockcroft-Gault equation) are based ondifferent parameters and may not yield comparable results.If eCrCl result is absurd, please check patient'sheight/weight. Estimated Glomerular Filt Rate 53 [facility] Comment:Chronic Kidney Disea se: Estimated GFR < 60 mL/min/1.54g3Lcubls Kidney Disease: Estimated GFR < 15 mL/min/1.73m2 Glucose 77 60 - 115 mg/dL [facility] Calcium 9.2 8.4 - 10.2 mg/dL [facility] Bilirubin, Total 0.2 0.0 - 1.0 mg/dL [facility] Aspartate Amino Transferase 19 5 - 31 U/L [facility] Alanine Aminotransferase 8 0 - 31 U/L [facility] Total Protein 7.1 6.5 - 8.0 g/dL [facility] Albumin Level 4.2 3.5 - 5.0 g/dL [facility] Alkaline Phosphatase 72 39 - 117 U/L [facility] 02/07/2025 8:52 PM EDT 02/07/2025 8:57 PM EDT us Generic External Data Provider LAB BLOOD ORDERAB LES Final Result [facility] [address] [place] [phone] * POCT Hgb A1c (01/26/2025 3:42 PM EDT) Hemoglobin A1C 5.6 4.0 - 5.7 % QC Media Lot # [id number] Lot# Expiration Date [id number] Blood 01/26/2025 3:42 PM EDT us Elizabeth [...] 8:25 AM EDT) Creatinine, Urine 223.33 mg/dL [facility] Microalbumin Urine 9.0 mg/L [facility] Microalbum Creatinine Ratio Ur 4.0 <30 ug/mg cr [facility] Comment:Albumin/Creatinine R atio Reference Ranges: Normal: < 30 ug/mg creatinine Microalbuminuria: 30 - 300 ug/mg creatinineClinical Albuminuria: > 300 ug/mg creatinine Urine (Urine, Random) 01/05/2024 8:25 AM EDT 01/05/2024 11:48 AM EDT Elizabeth Goncalves MD LAB URINE ORDERABLES Final Result [facility] [address] [place] [phone] * (ABNORMAL) Lipid Panel with Reflex to Direct LDL (01/05/2024 8:22 AM EDT) Triglycerides 180(H) <150 mg/dL [facility] Comment:Desirable Triglyceri de: less than 150 mg/dLBorderline High Triglyceride 150-199 mg/dLHigh Triglyceride: 200-499 mg/dLVery High Triglyceride: greater than or equal to 5OO mg/dL Cholesterol 240(H) <200 mg/dL [facility] Comment:Desirable Cholestero l: less than 200 mg/dLBorderline High Cholesterol: 200-239 mg/dLHigh Cholesterol: greater than 239 mg/dL LDL Cholesterol Calculated 138(H) <100 mg/dL [facility] Comment:Desirable LDL: less than 100 mg/dLNear Optimal/Above Optimal LDL: 110- 129 mg/dLBorderline High LDL: 130-159 mg/dLHigh LDL: 160-189 mg/dLVery High LDL: greater than or equal to 190 mg/dL HDL Cholesterol 66 >40 mg/dL [facility] Comment:Desirable HDL: great er than 40 mg/dL Note: This HDL assay may give artificially low results in patients with liver disease. Blood 01/05/2024 8:22 AM EDT 01/05/2024 11:52 AM EDT Elizabeth Goncalves MD LAB BLOOD ORDERABLES Final Result [facility] [address] [place] [phone] * Hm Colonoscopy (12/10/2022) Historical Provider [...] a test for HCV RNA (test code 69078) is suggested. For additional information please refer to http://education.[employer]/faq/BVC58q0 (This link is being provided for informational/ educational purposes only.) 10/23/2020 10:0 8 AM EDT Elizabeth Goncalves MD HISTORICAL/NON ORDERA BLE LABS Final Result Performing Organization Address [facility] de Phone Number [facility] [address] * HIV 1/2 ANTIGEN/ANTIBODY,FOURTH GENERATION W/RFL [...] purpose. For additional information please refer to http://education.[employer]/faq/LBZ581 (This link is being provided for informational/ educational purposes only.) The performance of this assay has not been clinically validated in patients less than 2 years old. 10/23/2020 10:0 8 AM EDT Elizabeth Goncalves MD LAB BLOOD ORDERABLES Final Result Performing Organization Address [facility] de Phone Number [facility] [address] from Last 3 Months or Most Recently Relevant to Health Maintenance Insurance C3 Care Teams Molder Fitting Relationship Specialty Start Date End Date Elizabeth Dunn MD [address] [place] [phone] PCP - General Family Medicine 03/17/18 Kai Bowden, MATT [address] [place] [phone] Registered Nurse Family Medicine 02/08/25 Manuela Melendez 02/08/25 Thao Barnhart Marine InsulatorRevenue Integrity Analyst 02/07/23
--- OUTSIDE RECORDS SUMMARY | 2025-04-04 05:25 | XMS_ITS | Encounter Summary ---
Author Organization [employer] Address [address] [place] [address] Care Team Providers Care Motor Vehicle Light Assembler Name Role Phone Elizabeth Dunn MD Primary Care Provide r Kai Bowden RN Unavailable [phone] Manuela Melendez Unavailable Reason for Visit * Reason Onset Date Comments Nurse Triage 11/26/2023 Encounter Details Date Type Department Care Team ([facility] st Contact Info) Description 11/26/[address] [facility] [address] [place] [phone] Elizabeth Dunn MD [address] [place], [place] [phone] Nurse Triage Social History Tobacco Use Types [...] to PT. Per pt has not called resource conservation specialist to notify of increased pain with [...] Description 04/04/2025 1:00 PM EST Office Visit [facility] [address] [place] [phone] Elizabeth Dunn MD [address] [place] [address] 06/07/2025 2:30 PM EST Office Visit [facility] [address] [place] [address] Dawson, Umlu, OD [address] [place] [address] documented as of this encounter Visit Diagnoses Not on filedocumented in this encounter Additional Health Concerns Assessment Noted Time PHQ-9 Depression Total Score: 0 08/20/19 24 2:32 PM EDT documented as of this encounter Care Teams Motor Vehicle Light Assembler Relationship Specialty Start Date End Date Elizabeth Dunn MD [address] [place] [address] PCP - General Family Medicine 03/17/18 Kai Bowden, RN [address] [place] [phone] Registered Nurse Family Medicine 02/08/25 Manuela Melendez 02/08/25 Thao Barnhart Clinical Program DirectorBulb Planter 02/07/23 documented as of this encounter
--- OUTSIDE RECORDS SUMMARY | 2025-04-04 05:25 | XMS_ITS | Encounter Summary ---
Author Organization [employer] Address 75 [facility] 7t h Floor [place] [id number] Care Team Providers Care Bill Poster Installer Name Role Phone Elizabeth Dunn MD Primary Care Provide r Kai Bowden RN Unavailable [phone] Manuela Melendez Unavailable Reason for Visit * Reason Onset Date Comments Hospital Follow-up 03/22/2025 Encounter Details Date Type Department Care Team ([facility] Contact Info) Description 03/22/2025 Telephone [facility] MEDICINE [address] [place] [address] Elizabeth Dunn MD [address] [place] [address] Hospital Follow-up Social History Tobacco Use Types Packs/Day [...] encounter Miscellaneous Notes * Telephone Encounter - Charmaine Machuca - 03/22/2025 9:21 AM EST Tc from pt requesting a HDF appt. Hospital: [facility] Date of admission: 03/14 Discharge date: 03/19 Diagnosed: depression *Send message to Evangeline Clinical Care Coordinators documented in this encounter Plan of Treatment Upcoming Encounters Date Type Department Care Team (Late st Contact Info) Description 04/04/2025 1:00 PM EST Office Visit [facility] MEDICINE [address] [place] [address] Elizabeth Dunn MD [address] [place] [address] 06/07/2025 2:30 PM EST Office Visit [facility] OPTOMETRY [address] [place] [address] Mulu Osman, OD 230 [place] [address] documented as of this encounter Visit Diagnoses Not on filedocumented in this encounter Additional Health Concerns Assessment Noted Time PHQ-9 Depression Total Score: 0 02/03/20 2:44 PM EDT documented as of this encounter Care Teams Bill Poster Installer Relationship Specialty Start Date End Date Elizabeth Dunn MD [address] [place] [address] PCP - General Family Medicine 03/17/18 Kai Bowden, MATT [address] [place] [address] Registered Nurse Family Medicine 02/08/25 Manuela Melendez 02/08/25 Thao Barnhart Public Relations SupervisorContact Center Agent 02/07/23 documented as of this encounter
--- OUTSIDE RECORDS SUMMARY | 2025-04-04 05:25 | XMS_ITS | Encounter Summary ---
Author Organization [employer] Address [address] [place] [address] 7t [place] [address] Care Team Providers Care Warehouse Operator Name Role Phone Elizabeth Dunn MD Primary Care Provide r Kai Bowden RN Unavailable [phone] Manuela Melendez Unavailable Encounter Details Date Type Department Care Team (Late Contact Info) Description 01/29/2023 Orders Only [facility] MEDICINE [address] [place] [address] [phone] ProviderHector MD Social History Tobacco Use Types [...] Department Care Team (Late Contact Info) Description 04/04/2025 1:00 PM EST Office Visit [facility] MEDICINE [address] [place] [address] [phone] Elizabeth Dunn MD [address] [place] [address] [phone] 06/07/2025 2:30 PM EST Office Visit [facility] OPTOMETRY [address] [place] [address] Mulu Osman, OD 230 [place] [address] documented as of this encounter Procedures Procedure [...] documented as of this encounter Care Teams Warehouse Operator Relationship Specialty Start Date End Date Elizabeth Dunn MD 230 [place], [place] [phone] PCP - General Family Medicine 03/17/18 Kai Bowden, RN 505 [place] [address] Registered Nurse Family Medicine 02/08/25 Manuela Melendez 02/08/25 Thao Barnhart Wire Coating Machine OperatorHuman Resources Executive 02/07/23 documented as of this encounter
--- OUTSIDE RECORDS SUMMARY | 2025-04-04 05:25 | XMS_ITS | Encounter Summary ---
Author Organization [employer] Address [address] [place] [address] 7t h Floor [place] [phone] Care Team Providers Care Ep Tech Name Role Phone Elizabeth Dunn MD Primary Care Provide r Kai Bowden RN Unavailable [phone] Manuela Melendez Unavailable Reason for Visit * Reason Onset Date Comments Prior Authorization 01/14/2025 PA: Augusto und Encounter Details Date Type Department Care Team ([facility] st Contact Info) Description 01/14/2025 Telephone [facility] MEDICINE 230 [place] [address] Elizabeth Dunn MD 230 [place], [place] [phone] Prior Authorization ( PA: Trish) Social History [...] back to discuss update Contact pt at [phone] (maltese) * Telephone Encounter - Lo Clemens - 01/14/2025 11:55 AM EDT Tc from pt stating a PA is needed for Tirzepatide-Weight Management (Zepbound) 10 MG/0.5ML solutionauto-injector Contact pt at [phone] (maltese) documented in this encounter Plan of Treatment Upcoming Encounters Date Type Department Care Team (Late st Contact Info) Description 04/04/2025 1:00 PM EST Office Visit [facility] MEDICINE [address] [place] [address] Elizabeth Dunn MD [address] [place] [address] 06/07/2025 2:30 PM EST Office Visit [facility] OPTOMETRY [address] [place], [place] [phone] Mulu Osman, OD 230 [place] [address] documented as of this encounter Visit Diagnoses Not on filedocumented in this encounter Additional Health Concerns Assessment Noted Time PHQ-9 Depression Total Score: 0 08/20/19 24 2:32 PM EDT documented as of this encounter Care Teams Ep Tech Relationship Specialty Start Date End Date Elizabeth Dunn MD 230 [place] [address] PCP - General Family Medicine 03/17/18 Kai Bowden, RN [address] [place] [address] Registered Nurse Family Medicine 02/08/25 Manuela Melendez 02/08/25 Thao Barnhart Horse IdentifierOperations Support Coordinator 02/07/23 documented as of this encounter
--- OUTSIDE RECORDS SUMMARY | 2025-04-04 05:25 | XMS_ITS | Encounter Summary ---
Author Organization [employer] Address 75 [facility] 7t h Floor [place] [phone] Care Team Providers Care Air Brake Rigger Name Role Phone Eilzabeth Dunn MD Primary Care Provide r Kai Bowden RN Unavailable [phone] Manuela Melendez Unavailable Reason for Visit * Reason Onset Date Comments Med Refill 06/21/2024 Encounter Details Date Type Department Care Team ([facility] st Contact Info) Description 06/21/2024 Telephone [facility] MEDICINE 230 [place] [address] Elizabeth Dunn MD 230 [place], [place] [phone] Med Refill Social History Tobacco Use Types [...] 500 MG tablet To be sent to: [facility]/pharmacy #[id number] documented in this encounter Plan of Treatment Upcoming Encounters Date Type Department Care Team (Late st Contact Info) Description 04/04/2025 1:00 PM EST Office Visit [facility] MEDICINE 230 [place], [place] [phone] Elizabeth Dunn MD 230 [place] [address] 06/07/2025 2:30 PM EST Office Visit [facility] OPTOMETRY [address] [place], [place] [phone] Mulu Osman, OD 230 [place] [address] documented as of this encounter Visit Diagnoses Not on filedocumented in this encounter Additional Health Concerns Assessment Noted Time PHQ-9 Depression Total Score: 0 08/20/19 24 2:32 PM EDT documented as of this encounter Care Teams Air Brake Rigger Relationship Specialty Start Date End Date Elizabeth Dunn MD 230 [place], [place] [phone] PCP - General Family Medicine 03/17/18 Kai Bowden, MATT [address] [place] [address] Registered Nurse Family Medicine 02/08/25 Manuela Melendez 02/08/25 hTao Barnhart Getter OperatorDeli Cutter Slicer 02/07/23 documented as of this encounter
--- OUTSIDE RECORDS SUMMARY | 2025-04-04 05:25 | XMS_ITS | Encounter Summary ---
Author Organization [employer] Address 75 [facility] 7t [place] [address] Care Team Providers Care Defect Repairer Glassware Name Role Phone Elizabeth Dunn MD Primary Care Provide r Kai Bowden RN Unavailable [phone] Manuela Melendez Unavailable Encounter Details Date Type Department Care Team (Late st Contact Info) Description 03/09/2025 Orders Only [facility] MEDICINE [address] [place] [address] Elizabeth Dunn MD 230 [place] [address] Acute right ankle pain; Right foot pain [...] is your housing situation today? I have katiailno manriquez 02/02/[address] you [...] Description 04/04/2025 1:00 PM EST Office Visit [facility] MEDICINE [address] [place] [address] Elizabeth Dunn MD [address] [place] [address] 06/07/2025 2:30 PM EST Office Visit [facility] OPTOMETRY [address] [place] [address] Dawson, Mulu, OD 230 [place] [address] documented as of this encounter Visit Diagnoses Diagnosis Acute right ankle pain Right foot pain Pain in soft tissues of limb documented in this encounter Additional Health Concerns Assessment Noted Time PHQ-9 Depression Total Score: 0 02/03/20 25 2:44 PM EDT documented as of this encounter Care Teams Defect Repairer Glassware Relationship Specialty Start Date End Date Elizabeth Dunn MD [address] [place] [address] PCP - General Family Medicine 03/17/18 Kai Bowden, RN [address] [place] [address] [place] [address] Registered Nurse Family Medicine 02/08/25 Manuela Melendez 02/08/25 Thao Barnhart Welding TechnicianRed Hat Linux Administrator 02/07/23 documented as of this encounter
--- OUTSIDE RECORDS SUMMARY | 2025-04-04 05:25 | XMS_ITS | Encounter Summary ---
Author Organization [employer] Address 75 [facility] 7t [place] [address] Care Team Providers Care Assessment Rn Name Role Phone Elizaebth Dunn MD Primary Care Provide r Kai Bowden RN Unavailable [phone] Manuela Melendez Unavailable Reason for Visit * Reason Onset Date Comments chart prep 04/01/2025 Encounter Details Date Type Department Care Team ([facility] Contact Info) Description 04/01/2025 Telephone [facility] MEDICINE [address] [place] [address] Elizabeth Dunn MD [address] [place] [address] chart prep Social History Tobacco Use Types Packs/Day Years [...] encounter Miscellaneous Notes * Telephone Encounter - Alban Lopez MA - 04/01/2025 10:20 AM EST Chart Prep Labs: not done lvm for pt to complete Images: not done lvm for pt to complete Referrals: not done Vaccines due: Covid, PCV20, and RSV Screenings: pap smear Overdue care gaps: Glucose documented in this encounter Plan of Treatment Upcoming Encounters Date Type Department Care Team (Late st Contact Info) Description 04/04/2025 1:00 PM EST Office Visit [facility] MEDICINE [address] [place] [address] Elizabeth Dunn MD [address] [place] [address] 06/07/2025 2:30 PM EST Office Visit [facility] OPTOMETRY [address] [place] [address] Mulu Osman, OD 230 [place] [address] documented as of this encounter Visit Diagnoses Not on filedocumented in this encounter Additional Health Concerns Assessment Noted Time PHQ-9 Depression Total Score: 0 02/03/20 2:44 PM EDT documented as of this encounter Care Teams Assessment Rn Relationship Specialty Start Date End Date Elizabeth Dunn MD [address] [place] [address] PCP - General Family Medicine 03/17/18 Kai Bowden, MATT [address] [place] [address] Registered Nurse Family Medicine 02/08/25 Manuela Melendez 02/08/25 Thao Barnhart Manufacturing TechnologistDirector Product Management 02/07/23 documented as of this encounter
--- OUTSIDE RECORDS SUMMARY | 2025-04-04 05:25 | XMS_ITS | Encounter Summary ---
Author Organization [employer] Address 75 [facility] 7t h Floor [place] [phone] Care Team Providers Care Memorial Mason Name Role Phone Elizabeth Dunn MD Primary Care Provide r Kai Bowden RN Unavailable [phone] Manuela Melendez Unavailable Reason for Visit * Reason Onset Date Comments Med Refill 03/31/2025 Encounter Details Date Type Department Care Team (Late st Contact Info) Description 03/31/2025 Refill [facility] MEDICINE 230 [place] [address] Elizabeth Dunn MD 230 [place] [address] Chronic bilateral low back pain with left-sided sciatica Social [...] Telephone Encounter - Sol Marinelli LPN - 03/31/2025 2:26 PM EST DIRECTOR FURNITURE checked on 03/31/25. Last seen 03/22/25. * Telephone Encounter - Charmaine Machuca - 03/31/2025 2:24 PM EST TC from pt requesting medication refill. Medications needing refill : - pregabalin (Lyrica) 225 MG capsule To be sent to: - [facility]/pharmacy #[id number] [place], [place] - [address] [place] [address] documented in this encounter Plan of Treatment Upcoming Encounters Date Type Department Care Team (Late st Contact Info) Description 04/04/2025 1:00 PM EST Office Visit [facility] MEDICINE [address] [place] [address] Elizabeth Dunn MD 230 [place], [place] [phone] 06/07/2025 2:30 PM EST Office Visit [facility] OPTOMETRY [address] [place], [place] [phone] Mulu Osman, OD 230 [place] [address] documented as of this encounter Visit Diagnoses Diagnosis Chronic bilateral low back pain with left-sided sciatica documented in this encounter Additional Health Concerns Assessment Noted Time PHQ-9 Depression Total Score: 0 02/03/20 2:44 PM EDT documented as of this encounter Care Teams Memorial Mason Relationship Specialty Start Date End Date Elizabeth Dunn MD 230 [place], [place] [phone] PCP - General Family Medicine 03/17/18 Kai Bowden, MATT [address] [place] [address] Registered Nurse Family Medicine 02/08/25 Manuela Melendez 02/08/25 Thao Barnhart Licensed Final Expense AgentsKidney Trimmer 02/07/23 documented as of this encounter
--- OUTSIDE RECORDS SUMMARY | 2025-04-04 05:25 | XMS_ITS | Encounter Summary ---
Author Organization [employer] Address 75 [facility] 7t [place] [address] Care Team Providers Care Dinkey Motor Operator Name Role Phone Elizabeth Dunn MD Primary Care Provide r Kai Bowden RN Unavailable [phone] Manuela Melendez Unavailable Reason for Visit * Reason Comments Care Coordination C3/W IBIS Alonzo initial assessment Encounter Details Date Type Department Care Team (Latest Contact Info) Description 03/30/2025 Patient Outreach [facility] MEDICINE [address] [place] [address] Elizabeth Dunn MD 230 [place] [address] Care Coordination (C3CM/CHW IBIS Landrum initial assessment ) Social History Tobacco Use [...] encounter Progress Notes * Manuela Melendez - 03/30/2025 11:01 AM EST CHW Manuela Melendez placed outbound call to patient in regards to rescheduling missed initial assessment appointment on 03/15/25 for Adult Complex Care program services. Patient's name and were confirmed. Initial Assessment appointment scheduled for 04/05/25 at 10:00 AM. CHW will set up an appointment reminder and will notify CM. CHW provided contact information of [phone] for any questions or concerns. Patient has HDF appointment on 04/04/25 @ 1:00 pm. documented in this encounter Plan of Treatment Upcoming Encounters Date Type Department Care Team ([facility] st Contact Info) Description 04/04/2025 1:00 PM EST Office Visit [facility] MEDICINE [address] [place] [address] Elizabeth Dunn MD 230 [place], [place] [phone] 06/07/2025 2:30 PM EST Office Visit [facility] OPTOMETRY [address] [place], [place] [phone] Mulu Osman, OD 230 [place] [address] documented as of this encounter Visit Diagnoses Not on filedocumented in this encounter Additional Health Concerns Assessment Noted Time PHQ-9 Depression Total Score: 0 02/03/20 2:44 PM EDT documented as of this encounter Care Teams Dinkey Motor Operator Relationship Specialty Start Date End Date Elizabeth Dunn MD 230 [place], [place] [phone] PCP - General Family Medicine 03/17/18 Kai Bowden, MATT [address] [place] [address] Registered Nurse Family Medicine 02/08/25 Manuela Melendez 02/08/25 Thao Barnhart Mold BuilderEmail Manager 02/07/23 documented as of this encounter
--- OUTSIDE RECORDS SUMMARY | 2025-04-04 05:25 | XMS_ITS | Clinical Summary ---
Author Organization [facility], Address [address] [place] [address] Phone Care Team Providers Care Manager Of Finance Name Role Phone Elizabeth Dunn MD Primary [...] Calculated 126 0 - 160 mg/dL 05/31/2020 [facility] Provider LAB BLOOD ORDERABLES Sandy l Result from Last 3 Months or Most Recently Relevant to Health Maintenance Insurance [place] Member Subscriber Plan / Payer (Ef fective 2020-Present) Name:Jose Antonio Rivasda Relation to Subscriber:Self Name:Lelo Rivas Payer ID:Not on file Group ID:Not on file Type:Not on file Address: [address] Medicaid [place] Care Teams Manager Of Finance Relationship Specialty Start Date End Date Elizabeth Dunn MD [address] [place] [phone] PCP - General Internal Medicine 11/17/20
--- OUTSIDE RECORDS SUMMARY | 2025-04-04 05:25 | XMS_ITS | Clinical Summary ---
Author Organization 175 [facility] Address [address] [place] [address] Phone Care Team Providers Care Healthcare Recruiter Name Role Phone Elizabeth Dunn MD Primary [...] sinusitis 03/18/2024 Microcytic anemia 03/18/2024 Benzodiazepine dependence ([facility] V24, [facility] V28) 03/18/2024 Blurring of visual image 03/18/2024 Chronic idiopathic constipation 03/18/2024 T2DM (type 2 diabetes mellitus) (CMS/[facility] V24, CM S/[facility] V28) 03/18/2024 Injury of kidney 03/18/2024 Tinnitus [...] topic Insurance MEDICAID - [place] Care Teams Healthcare Recruiter Relationship Specialty Start Date End Date Elizabeth Dunn MD [address] [phone] PCP - General Internal Medicine 02/12/24
--- OUTSIDE RECORDS SUMMARY | 2025-04-04 05:25 | XMS_ITS | Encounter Summary ---
Author Organization [employer] Address 75 [facility] 7t [place] [address] Care Team Providers Care Neurology Specialist Name Role Phone Elizabeth Dunn MD Primary Care Provide r Kai Bowden RN Unavailable [phone] Manuela Melendez Unavailable Reason for Visit * Reason Comments Med Refill Encounter Details Date Type Department Care Team ([facility] st Contact Info) Description 12/15/2024 Refill [facility] MEDICINE 230 [place] [address] Elizabeth Dunn MD 230 [place] [address] Social History Tobacco Use Types Packs/Day Years [...] Description 04/04/2025 1:00 PM EST Office Visit [facility] MEDICINE [address] [place] [address] Elizabeth uDnn MD 230 [place] [address] 06/07/2025 2:30 PM EST Office Visit [facility] OPTOMETRY [address] [place] [address] Dawson, Mulu, OD 230 [place] [address] documented as of this encounter Visit Diagnoses Not on filedocumented in this encounter Additional Health Concerns Assessment Noted Time PHQ-9 Depression Total Score: 0 08/20/19 24 2:32 PM EDT documented as of this encounter Care Teams Neurology Specialist Relationship Specialty Start Date End Date Elizabeth Dunn MD [address] [place] [address] PCP - General Family Medicine 03/17/18 Kai Bowden, MATT [address] [place] [address] Registered Nurse Family Medicine 02/08/25 Manuela Melendez 02/08/25 Thao Barnhart Distribution Field EngineerRoute Rider Supervisor 02/07/23 documented as of this encounter
--- OUTSIDE RECORDS SUMMARY | 2025-04-04 05:25 | XMS_ITS | Encounter Summary ---
Author Organization [employer] Address [address] [place] [address] 7t [place] [address] Care Team Providers Care Fusion Juncture Grinder Name Role Phone Elizabeth Dunn MD Primary Care Provide r Kai Bowden RN Unavailable [phone] Manuela Melendez Unavailable Reason for Visit * Reason Onset Date Comments Med Refill 12/17/2022 Encounter Details Date Type Department Care Team (Late st Contact Info) Description 12/17/2022 Telephone [facility] MEDICINE [address] [place] [address] Elizabeth Dunn MD [address] [place], [place] [phone] Med Refill Social History Tobacco Use Types [...] Description 04/04/2025 1:00 PM EST Office Visit [facility] MEDICINE [address] [place] [address] Elizabeth Dunn MD [address] [place] [address] 06/07/2025 2:30 PM EST Office Visit [facility] OPTOMETRY [address] [place], [place] [phone] Mulu Osman, OD [address] [place] [address] documented as of this encounter Visit Diagnoses Not on filedocumented in this encounter Additional Health Concerns Assessment Noted Time PHQ-9 Depression Total Score: 0 08/03/19 3:13 PM EDT documented as of this encounter Care Teams Fusion Juncture Grinder Relationship Specialty Start Date End Date Elizabeth Dunn MD [address] [place] [address] PCP - General Family Medicine 03/17/18 Kai Bowden, RN [address] [place] [address] Registered Nurse Family Medicine 02/08/25 Manuela Melendez 02/08/25 Thao Barnhart Land Management ForesterArt Coordinator 02/07/23 documented as of this encounter
--- OUTSIDE RECORDS SUMMARY | 2025-04-04 05:25 | XMS_ITS | Encounter Summary ---
Author Organization [employer] Address [address] [place] [address] 7t [place] [address] Care Team Providers Care Shoe Salesperson Name Role Phone Elizabeth Dunn MD Primary Care Provide r Kai Bowden RN Unavailable [phone] Manuela Melendez Unavailable Encounter Details Date Type Department Care Team (Late st Contact Info) Description 05/17/2022 Abstract [facility] MEDICINE 230 [place] [address] Linda Romero, PharmD [address] [place] [address] Social History Tobacco Use Types Packs/Day Years [...] Description 04/04/2025 1:00 PM EST Office Visit [facility] MEDICINE 230 [place] [address] Elizabeth Dunn MD [address] [place] [address] 06/07/2025 2:30 PM EST Office Visit [facility] OPTOMETRY [address] [place] [address] Mulu Osman, OD 230 [place] [address] documented as of this encounter Visit Diagnoses Not on filedocumented in this encounter Care Teams Shoe Salesperson Relationship Specialty Start Date End Date Elizabeth Dunn MD 230 [place], [place] [phone] PCP - General Family Medicine 03/17/18 Kai Bowden, RN [address] [place] [address] Registered Nurse Family Medicine 02/08/25 Manuela Melendez 02/08/25 Thao Barnhart Wood Milling Machine OperatorLifeguard 02/07/23 documented as of this encounter
--- OUTSIDE RECORDS SUMMARY | 2025-04-04 05:25 | XMS_ITS | Encounter Summary ---
Author Organization [employer] Address 75 [facility] 7t h Floor [place] [id number] Care Team Providers Care Dietetic Technician Name Role Phone Elizabeth Dunn MD Primary Care Provide r Kai Bowden RN Unavailable [phone] Manuela Melendez Unavailable Encounter Details Date Type Department Care Team (Late st Contact Info) Description 03/26/2024 Orders Only [facility] MEDICINE [address] [place] [address] Elizabeth Dunn MD [address] [place] [address] Social History Tobacco Use Types Packs/Day Years [...] 04/04/2025 1:00 PM EST Office Visit [facility] MEDICINE [address] [place] [address] Elizabeth Dunn MD [address] [place] [address] 06/07/2025 2:30 PM EST Office Visit [facility] OPTOMETRY [address] [place] [address] Dawson, Mulu, OD 230 [place] [address] documented as of this encounter Visit Diagnoses Not on filedocumented in this encounter Additional Health Concerns Assessment Noted Time PHQ-9 Depression Total Score: 0 08/20/19 24 2:32 PM EDT documented as of this encounter Care Teams Dietetic Technician Relationship Specialty Start Date End Date Elizabeth Dunn MD 230 [place] [address] PCP - General Family Medicine 03/17/18 Kai Bowden, MATT [address] [place] [address] Registered Nurse Family Medicine 02/08/25 Manuela Melendez 02/08/25 Thao Barnhart Patient Relations LiaisonHay Stacker Operator 02/07/23 documented as of this encounter
--- OUTSIDE RECORDS SUMMARY | 2025-04-04 05:25 | XMS_ITS | Encounter Summary ---
Author Organization [employer] Address [address] [place] [address] [address] [place] [address] Care Team Providers Care Flatbed Owner Operator Name Role Phone Elizabeth Dunn MD Primary Care Provide r Kai Bowden RN Unavailable [phone] Manuela Melendez Unavailable Reason for Visit * Reason Onset Date Comments Med Refill 12/04/2022 Encounter Details Date Type Department Care Team (Late st Contact Info) Description 12/04/2022 Telephone [facility] [address] [place] [address] Elizabeth Dunn MD [address] [place], [place] [phone] Med Refill Social History Tobacco Use Types [...] Description 04/04/2025 1:00 PM EST Office Visit [facility] [address] [place] [address] Elizabeth Dunn MD [address] [place] [address] 06/07/2025 2:30 PM EST Office Visit [facility] OPTOMETRY [address] [place], [place] [phone] Mulu Osman, OD [address] [place] [address] documented as of this encounter Visit Diagnoses Not on filedocumented in this encounter Additional Health Concerns Assessment Noted Time PHQ-9 Depression Total Score: 0 08/03/19 23 3:13 PM EDT documented as of this encounter Care Teams Flatbed Owner Operator Relationship Specialty Start Date End Date Elizabeth Dunn MD [address] [place] [address] PCP - General Family Medicine 03/17/18 Kai Bowden, RN [address] [place] [id number] Registered Nurse Family Medicine 02/08/25 Manuela Melendez 02/08/25 Thao Barnhart Certified Medical Coding SpecialistPhysician Anesthesiologist 02/07/23 documented as of this encounter
--- OUTSIDE RECORDS SUMMARY | 2025-04-04 05:25 | XMS_ITS | Encounter Summary ---
Author Organization [employer] Address [address] [facility] [address] [place] [address] Care Team Providers Care Roll Handler Name Role Phone Elizabeth Dunn MD Primary Care Provide r Kai Bowden RN Unavailable [phone] Manuela Melendez Unavailable Encounter Details Date Type Department Care Team (Late st Contact Info) Description 03/30/2025 Patient Outreach [facility] MEDICINE [address] [place] [address] Elizabeth Dunn MD [address] [place] [address] Social History Tobacco Use Types Packs/Day Years [...] Description 04/04/2025 1:00 PM EST Office Visit [facility] MEDICINE [address] [place] [address] Elizabeth Dunn MD [address] [place] [address] 06/07/2025 2:30 PM EST Office Visit [facility] OPTOMETRY [address] [place] [address] Dawson, Mulu, OD [address] [place] [address] documented as of this encounter Visit Diagnoses Not on filedocumented in this encounter Additional Health Concerns Assessment Noted Time PHQ-9 Depression Total Score: 0 02/03/20 25 2:44 PM EDT documented as of this encounter Care Teams Roll Handler Relationship Specialty Start Date End Date Elizabeth Dunn MD [address] [place] [address] PCP - General Family Medicine 03/17/18 Kai Bowden, MATT [address] [place] [address] [place] [address] Registered Nurse Family Medicine 02/08/25 Manuela Melendez 02/08/25 Thao Barnhart Hatchery WorkerSalt Plant Operator 02/07/23 documented as of this encounter
--- NOTE | 2025-04-04 05:36 | ED_ITS ---
HPI - General Adult General Chief complaint: Back Pain/Injury Stated complaint: General Medical Time Seen by Provider: 04/04/25 04:50 Source: patient, RN notes reviewed and old records reviewed Mode of arrival: ambulatory Limitations: no limitations History of Present Illness ED Provider: Satish HPI narrative: 65-year-old female with a past medical history significant for PTSD, diabetes, anxiety, depression, neuropathy presents for evaluation of ?pain all over. ? The patient reports that she has been having fibromyalgia pain all over her body for the last 2 weeks pain She also endorses body aches and left-sided back pain. Her pain is in the mid upper back. She reports burning with urination Denies any fevers, chills pain She typically takes ibuprofen for pain Denies any falls or injuries Related Data Home Medications ?Medication ?Instructions ?Recorded ?Confirmed trazodone 100 mg tablet 300 mg PO BEDTIME 01/23/24 1 05/13/24 venlafaxine 150 mg 300 mg PO QAM 01/23/2403/13 capsule,extended release 24 hr clonazepam 0.5 mg tablet 0.5 mg PO DAILY PRN Anxiety 03/13/25 03/13/25 melatonin 5 mg tablet 10 mg PO BEDTIME PRN Insomni a 03/13/25 03/13/25 pregabalin 225 mg capsule 225 mg PO BID 03/13/2503/13 Previous Rx's ?Medication ?Instructions ?Recorded clonazepam 1 mg tablet 1 mg PO BID 30 days #60 tabs 12/16/22 hydrochlorothiazide 50 mg tablet 50 mg PO DAILY #30 ta bs 08/12/23 metformin 500 mg tablet,extended 500 mg PO BIDWM #60 t abs 08/12/23 release 24 hr aripiprazole 2 mg tablet 4 mg (2 x 2 mg) PO DAILY 30 days 03/18/25 #60 tabs naproxen 250 mg tablet 250 mg PO TID 5 days #15 tab s 03/18/25 acetaminophen 500 mg tablet 1,000 mg (2 x 500 mg) PO Q 8H 10 03/27/25 (Tylenol Extra Strength) days #60 tabs azithromycin 250 mg tablet See Rx Instructions PO .COM PLEX #6 03/27/25 (Zithromax) tabs ibuprofen 400 mg tablet 400 mg PO Q8H PRN pain #20 t abs 03/27/25 prednisone 20 mg tablet 40 mg (2 x 20 mg) PO DAILY 7 days 03/27/25 #14 tabs methocarbamol 500 mg tablet 1,000 mg (2 x 500 mg) PO Q ID #20 04/04/25 tabs Allergies Allergy/AdvReac Type Severity Reaction Status Date / Time morphine (MORPHINE) Allergy Intermediate PALPITATIONS, Verified 04/04/25 04:53 tachicardia quetiapine (Seroquel) Allergy Intermediate Aggitation Verified 04/04/25 04:53 orphenadrine (ORPHENADRINE) AdvReac Intermediate RAPID Verified 04/04/25 04:53 HEART RATE Review of Systems 2 Constitutional: Constitutional: Reports body ache(s), Denies chills, Denies fever(s) and Denies headache(s) Eyes: Eyes: Denies blurry vision ENT: Denies dizziness and Denies headache(s) Cardiovascular: Cardiovascular: Denies chest pain and Denies dyspnea on exertion Respiratory: Respiratory: Denies cough and Denies dyspnea on exertion Gastrointestinal: Gastrointestinal: Denies abdominal pain, Denies nausea and Denies vomiting Genitourinary: Genitourinary: Reports dysuria and Denies flank pain Musculoskeletal: Musculoskeletal: Reports back pain Integumentary/Breasts: Skin/Breast: Denies rash Neurologic: Denies dizziness and Denies headache(s) [facility] Past Medical History Medical History Weakness Arthritis History of brain inflammation Protrusion of lumbar intervertebral disc Tinnitus Venous insufficiency Osteoarthritis Loss of hair History of headache Fibromyositis Fatigue Hyperlipidemia HTN (hypertension) Continuous opioid dependence Sinusitis Anemia Anxiety Diverticulosis Chronic idiopathic constipation Migraine Asthma Depression Diabetes 1.5, managed as type 2 Fibromyalgia Surgical History History of back surgery History of esophagogastroduodenoscopy (EGD) S/P panniculectomy Hx of hysterectomy Hx of oophorectomy Hx of bilateral breast reduction surgery H/O colonoscopy History of pubovaginal sling Gastric bypass status for obesity Family History Family History Mother Colon cancer Social History Social History Household Members: Spouse Household Members Other:: lives alone Housing: House Are you a primary clinical manager home care to a significant other at home: No Unable to assess alcohol history related to: Unknown Alcohol intake: never Comment: IV infiltrated Patient Tobacco Use Status: Never used Tobacco Smoked in Last 30 Days: No Use of substances other than those prescribed or required for medical reasons: No Advance Directives: Yes Advance Directives on File: Yes Advance Directives Date on File: 07/24/23 Do you have a plan to hurt others: No Plan service: No Current occupational status: disabled Sexual orientation: Straight/Heterosexual Gender identity: Female Physical Exam ED Vital Signs: Vital Signs - 24 hr 04/04/25 04:52 Temperature 97.9 F Pulse Rate 86 Respiratory Rate 16 Blood Pressure 135/80 Pulse Oximetry 94 Oxygen Delivery Method Room Air BMI result Body Mass Index 29.0 Const General: healthy appearing, comfortable, no acute distress, alert and awake Nutritional Appearance: well nourished Orientation/consciousness: patient oriented x3 HENMT Head: Yes normocephalic and Yes atraumatic Eyes Eyelids: Yes eyelids normal Conjunctivae: conjunctivae normal Sclerae: sclerae normal Corneas: corneas normal Pupils: Equal, round and reactive pupils present EOM: EOMs intact bilaterally Neck Neck: Yes full ROM Resp Effort & Inspection: normal respiratory effort, able to speak in complete sentences, no audible wheezes and not labored Auscultation: clear to auscultation bilaterally Cardio Rate: regular rate Rhythm: regular rhythm GI Inspection: No distended Palpation (GI): Soft to palpation, not firm, nontender, no guarding and not rigid Skin General skin exam: elasticity normal Neuro General: patient oriented x3 Cranial nerves: Yes CN's II-XII intact bilaterally, Yes Equal, round and reactive pupils present and Yes Bilaterally intact EOM present Cognition (Neuro): normal cognition Extrem Other: Moving all extremities well without any obvious deformities Course Reevaluation(s) Reevaluation #1: Patient reports feeling somewhat improved after Toradol but still has some discomfort. Her workup was largely unremarkable with the exception of a hypokalemia of 3.0. She is not on any diuretics and denies any vomiting or diarrhea. She does report decreased appetite. She is treated with p.o. potassium. She will be discharged to follow up with her primary doctor. She was offered the chance to give a urinalysis and she was unable to do so. She reports that she would prefer to follow up with the primary doctor. She states that she always has problems urinating and her symptoms today are not acute Time: 06:20 Medications Administered Discontinued Medications Generic Name Dose Route Start Last Admin Trade Name Bola PRN Reason Stop Dose Admin Ketorolac Tromethamine 30 mg 04/04/25 04:56 04/04/25 05:15 Ketorolac Tromethamine 30 Mg/Ml Vial IM 04/04/25 04:57 30 mg ONCE ONE Administration Potassium Chloride 60 meq 04/04/25 06:02 04/04/25 06:14 Potassium Chloride Er 20 Meq Tab.Er.Prt PO 04/04/25 06:03 60 meq ONCE ONE Administration Medical Decision Making Medical Decision Making [facility] Narrative: 65-year-old female presents for evaluation of diffuse body pain. She has a history of fibromyalgia feels as though she is having a flare. She has complain of worsening left mid back pain. Denies chest pain, she does have risk factors for ACS and therefore we will get an EKG. If abnormal we can pursue a troponin additional workup but I have a low suspicion for ACS. We will check basic labs in his CPK. Patient does complain of burning with urination we will attempt to get a urinalysis. We will treat her pain with Toradol. There was no trauma to warrant emergent x-ray imaging at this time. Differential Diagnosis Differential Diagnoses: The differential diagnosis associated with the presentation includes Fibromyalgia Radiculopathy Viral syndrome UTI Rhabdomyolysis Lab Data [facility] Lab Attestation statement: I reviewed the patient's lab results. No leukocytosis or anemia. Normal platelet count. 04/04/25 05:13 04/04/25 05:13 Labs: Lab Results 04/04/25 Range/Units 05:13 WBC 10.6 (4.8-10.8) X10*3/uL RBC 5.18 D (4.20-5.50) X10*6/uL Hgb 12.5 D (12.0-16.0) g/dl Hct 38.8 D (37.0-47.0) % MCV 74.9 L (80.0-98.0) fL MCH 24.1 L (27.0-33.0) pg MCHC 32.2 (31.0-35.0) g/dl RDW 18.2 H (11.0-16.0) % Plt Count 255 (160-400) X10*3/uL MPV 10.5 (9.4-12.3) fL Immature Gran % (Auto) 1.3 H (0.0-0.4) % Neut % (Auto) 61.9 (45-73) % Lymph % (Auto) 28.1 (20-40) % [place] % (Auto) 6.6 (2-11) % Eos % (Auto) 1.7 (0-4) % Baso % (Auto) 0.4 (0-2) % Lymph # (Auto) 3.0 (1.2-4.9) X10*3/uL [place] # (Auto) 0.7 (0.1-1.2) X10*3/uL Eos # (Auto) 0.2 (0.0-0.4) X10*3/uL Baso # (Auto) 0.0 (0.0-0.2) X10*3/uL Abs Immat Gran (auto) 0.14 H (0.00-0.03) X10*3/uL Absolute Neuts (auto) 6.6 (2.0-8.3) x10*3/uL Absolute Nucleated RBC 0.000 (0.0-0.012) X10*3/uL Nucleated RBC % (auto) 0.0 (0.0-0.2) /100WBC Sodium 139 (135-145) mmol/L Potassium 3.0 L D (3.3-5.1) mmol/L Chloride 104 (96-108) mmol/L Carbon Dioxide 21 L (22-29) mmol/L Anion Gap 17 (12-20) BUN 24 H (9-16) mg/dL Creatinine 1.13 (0.5-1.4) mg/dL Estim Creat Clear Calc 54.8 Estimated GFR 49 Random Glucose 136 H (60-115) mg/dL Calcium 9.1 (8.4-10.2) mg/dL Total Bilirubin 0.3 (0.0-1.0) mg/dL AST 17 (5-31) U/L ALT 11 (0-31) U/L Alkaline Phosphatase 86 (39-117) U/L Total Creatine Kinase 50 (26-140) U/L Total Protein 7.6 (6.5-8.0) g/dL Albumin 4.4 (3.5-5.0) g/dL Influenza Type A (PCR) NEGATIVE (Negative) Influenza Type B (PCR) NEGATIVE (Negative) RSV RNA Qual (PCR) NEGATIVE (Negative) SARS-CoV-2 RNA (RT-PCR) NEGATIVE (Negative) Independent Interpretation I performed an independent interpretation of an: EKG Interpretation: Normal sinus rhythm with a rate of [address] segment elevation or depressions. No significant change when compared to previous EKG from March 16, 2025 Discharge Plan Discharge Clinical Impression: Acute generalized body pain, Acute hypokalemia Patient Disposition: Home, Self-Care Instructions: Fibromyalgia (ED), Hypokalemia (ED) Additional Instructions: Your workup in the ER today was largely reassuring. Your potassium was slightly low at 3.0. This may be due to decreased oral intake. I recommend following up with your primary doctor within the next week to recheck your potassium. You are unable to provide a urine sample and therefore you may want to have a urinalysis when you see your primary doctor next week Return for new or worsening symptoms Prescriptions: New methocarbamol 500 mg tablet 1,000 mg PO QID Qty: 20 0RF No Action clonazepam 1 mg tablet 1 mg PO BID 30 Days Qty: 60 0RF hydrochlorothiazide 50 mg tablet 50 mg PO DAILY Qty: 30 0RF metformin 500 mg Tablet Extended Release 24 Hr 500 mg PO BIDWM Qty: 60 0RF clonazepam 0.5 mg Tablet 0.5 mg PO DAILY PRN (Reason: Anxiety) pregabalin 225 mg capsule 225 mg PO BID melatonin 5 mg tablet 10 mg PO BEDTIME PRN (Reason: Insomnia) aripiprazole 2 mg tablet 4 mg PO DAILY 30 Days Qty: 60 0RF naproxen 250 mg Tablet 250 mg PO TID 5 Days Qty: 15 0RF prednisone 20 mg tablet 40 mg PO DAILY 7 Days Qty: 14 0RF azithromycin [Zithromax] 250 mg tablet See Rx Instructions .ROUTE .COMPLEX Qty: 6 0RF Rx Instructions: For 250 mg dose pack: take 500 mg today (day 1), then 250 mg for 4 days (days 2-5) acetaminophen [Tylenol Extra Strength] 500 mg tablet 1,000 mg PO Q8H 10 Days Qty: 60 0RF ibuprofen 400 mg tablet 400 mg PO Q8H PRN (Reason: pain) Qty: 20 0RF venlafaxine 150 mg capsule,extended release 24hr 300 mg PO QAM trazodone 100 mg tablet 300 mg PO BEDTIME Referrals: Elizabeth Dunn MD [Primary Care Provider, Internal Medicine] Print Language: Hungarian
[2025-04-04 05:58] LABS: Alanine Aminotransferase 11 U/L (0-31); Albumin Level 4.4 g/dL (3.5-5.0); Alkaline Phosphatase 86 U/L (39-117); Anion Gap 17 (12-20); Aspartate Amino Transferase 17 U/L (5-31); Blood Urea Nitrogen 24 mg/dL (9-16); Calcium 9.1 mg/dL (8.4-10.2); Carbon Dioxide 21 mmol/L (22-29); Chloride 104 mmol/L (96-108); Creatinine Clr Calc Pharmacy 54.8; Estimated Glomerular Filt Rate 49; Potassium 3.0 mmol/L (3.3-5.1); Sodium 139 mmol/L (135-145); Total Protein 7.6 g/dL (6.5-8.0)
[2025-04-04 06:00] LABS: Resp Syncy Virus RNA Qual PCR NEGATIVE (Negative); SARS COV2 PCR INHOUSE NEGATIVE (Negative)
[2025-04-04] MEDS: Potassium Chloride ER 20 MEQ TAB.ER.PRT 60 MEQ PO (06:14)
[2025-04-04 07:05] VITALS: BP 135/80; PULSE 86; RESP 16; TEMP 36.6; O2SAT 94
== END 2025-04-04 07:07 | disposition home or self-care (01) ==
PROVIDERS: Physician Assistant; Emergency Provider Emergency Medicine; PCP Internal Medicine
DX: M79.10 Myalgia, unspecified site (principal); E87.6 Hypokalemia; Z03.818 Encounter for observation for suspected exposure to other biological agents ruled out; M54.6 Pain in thoracic spine; I10 Essential (primary) hypertension; E11.9 Type 2 diabetes mellitus without complications; J45.909 Unspecified asthma, uncomplicated
CPT/HCPCS: 80053; 82550; 85025; 87637; 93005; 96372; 99284; 99285; J1885

== ENCOUNTER → 2025-04-04 04:54 | Outpatient (BNV) | payer MEDICAID, SELFPAY | PROVIDERS: Emergency Provider Emergency Medicine; PCP Internal Medicine; Visit Provider Internal Medicine Cardiovascular Disease | DX: R07.9 Chest pain, unspecified (principal) | CPT/HCPCS: 93010 ==

== ENCOUNTER 2025-04-11 16:02 | Outpatient (REF) | payer MEDICAID, SELFPAY ==
--- OUTSIDE RECORDS SUMMARY | 2025-04-11 15:15 | XMS_ITS | Encounter Summary ---
Author Organization [employer] Address [address] [facility] 7t [place] [address] Care Team Providers Care Photo Retoucher Name Role Phone Elizabeth Dunn MD Primary Care Provide r Kai Bowden RN Unavailable [phone] Manuela Melendez Unavailable Encounter Details Date Type Department Care Team (Late st Contact Info) Description 04/11/2025 3:15 PM EST Office Visit [facility] MEDICINE [address] [place] [address] Elizabeth Dunn MD [address] [place], [place] [phone] UTI symptoms (Primary Dx); Type 2 diabetes mellitus without complication, without long-term current use of insulin (HCC); Hypokalemia; Fibromyalgia; Primary hypertension; Encounter for immunization Social History Tobacco Use Types Packs/Day Years [...] Sign Reading Time Taken Comments Blood Pressure 140/100 04/11/2025 3:21 PM EST Pulse 84 04/11/2025 3:21 PM EST Temperature 36.3 C (97.4 F) 04/11/2025 3:21 PM EST Respiratory Rate 18 04/11/2025 3:21 PM EST Oxygen Saturation 96% 04/11/2025 3:21 PM EST Inhaled Oxygen Concentration - - Weight 90.1 kg (198 lb 9.6 oz) 04/11/2025 3:21 P M EST Height 165.1 cm (5' 5 ) 04/11/2025 3:21 PM EST Body Mass Index 33.05 04/11/2025 3:21 PM EST documented in this encounter Progress Notes * Elizabeth Goncalves MD - 04/11/2025 3:15 PM EST SUBJECTIVE: Lelo Rivas is a 65 y.o. year old female who presents for ED f/u . Social History Social History Narrative Not on file Problem List[1] Family History[2] Review of Systems OBJECTIVE: Vitals: 04/11/25 1521 BP: (!) 140/100 BP Location: Left arm Patient Position: Sitting BP Cuff Size: Adult Pulse: 84 Resp: 18 Temp: 97.4 ??F (36.3 ??C) TempSrc: Temporal SpO2: 96% Weight: 198 lb 9.6 oz (90.1 kg) Height: 5' 5 (1.651 m) Physical Exam Follow Up: Follow up in about 3 months (around 07/10/2025) for chronic conditiosn . Medications Ordered Prior to Encounter[3] Problem List Items Addressed This Visit T2DM (type 2 diabetes mellitus) ([facility]) Relevant Medications losartan (Cozaar) 100 MG tablet Other Relevant Orders POCT Glucose (Completed) Lipid Panel, Standard Albumin, Random Urine W/Creatinine Hypokalemia Relevant Orders Basic Metabolic Panel Fibromyalgia Relevant Medications nabumetone (Relafen) 750 MG tablet Hypertension Relevant Medications losartan (Cozaar) 100 MG tablet UTI symptoms - Primary Type 2 diabetes mellitus without complication, without long-term current use of insulin ([facility]): - Order blood tests for monitoring. Hypokalemia: - Hypokalemia identified as a contributing factor to current symptoms. - Change antihypertensive medication from hydrochlorothiazide to losartan to help preserve potassium levels. Monitor potassium levels with follow-up laboratory testing. Fibromyalgia: - Fibromyalgia with recurrent episodes of severe pain affecting the entire body, including chest, head, and extremities. - Prescribed methocarbamol for muscle pain, to be taken as needed. Prescribed acetaminophen 750 mg twice daily for pain management. Recommended initiation of regular physical exercise, including aerobic activity, weight training, or aquatic exercise, to improve long-term outcomes. Provided printed educational material on fibromyalgia. Encouraged increased water intake and weight control. Scheduled follow-up for ongoing management. Primary hypertension: - Poorly controlled hypertension with elevated blood pressure despite current therapy. - Discontinued hydrochlorothiazide and initiated losartan. Advised blood pressure monitoring. Scheduled follow-up for blood pressure evaluation. UTI symptoms: - Symptoms suggestive of urinary tract infection, including dysuria and urinary hesitancy. - Ordered urinalysis for evaluation of possible urinary tract infection. This note was drafted using Ambient (AI) technology. The patient/patient's guardian has been informed and has consented to the use of this technology: Yes [1] Patient Active Problem List Diagnosis Acute maxillary sinusitis Microcytic anemia Benzodiazepine dependence (CMS/HCC) ([facility]) Blurring of visual image Chronic idiopathic constipation [...] Type 2 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 ([facility]) Chronic pain 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order (CMS/HCC) ([facility]) Asthma COVID-19 Diabetes 1.5, managed as type 2 ([facility]) Diverticulosis Feeling of incomplete bladder emptying Hesitancy [...] high-risk medication T2DM (type 2 diabetes mellitus) ([facility]) Encounter for screening for malignant neoplasm of colon Encounter for screening for malignant neoplasm of rectum Acute nontraumatic kidney injury Acute pain of right shoulder Class 1 obesity due to excess calories with serious comorbidity and body mass index (BMI) of 34.0 to 34.9 in adult Diabetic mononeuropathy simplex ([facility]) Right foot pain Left foot pain Polyarthralgia Acute right ankle pain Schizoaffective disorder (CMS/[facility]) ([facility]) Other chcf (current) drug therapy Hypokalemia UTI symptoms [2] No family history on file. [3] Current Outpatient Medications on File Prior to Visit Medication Sig Dispense Refill Alcohol Swabs 70 % pads Use to test blood sugar 1 times daily 100 each 1 ARIPiprazole (Abilify) 2 MG tablet Take 2 tablets by mouth Once per day. Blood Glucose Monitoring Suppl (GigaSpaces Lite) w/Device kit USE TO TEST BLOOD SUGAR 1 TIMES DAILY 1 kit 0 clonazePAM (KlonoPIN) 1 MG tablet Take 1 tablet by mouth twice daily & take 1/2 tablet by mouthdaily as needed colchicine 0.6 MG tablet First day 1.2 mg at the first sign of flare followed by 0.6 mg after 1 hour second day and thereafter: 0.6 mg twice daily until flare resolves 60 tablet 1 Diclofenac Sodium 1 % gel Apply on affected area twice a day 350 g 3 ferrous sulfate 325 (65 Fe) MG EC tablet TAKE 1 TABLET BY MOUTH EVERY DAY. DO NOT CRUSH, CHEW OR SPLIT. (Patient not taking: Reported on 04/05/2025) 90 tablet 0 FREESTYLE LITE test strip Use to test blood sugar 1 times daily 100 each 12 Lancets misc Use to test blood sugar [...] MOUTH TWICE A DAY 180 tablet 1 methocarbamol (Robaxin) 500 MG tablet Take 1,000 mg by mouth 3 times daily. naloxone (Narcan) 4 mg/0.1 mL nasal spray [...] (one) time per week. 2 mL 2 Tirzepatide (Mounjaro) 15 MG/0.5ML solution auto-injector Inject 15 mg under the skin 1 (one) time per week. 2 mL 3 traZODone (Desyrel) 100 MG tablet take 3 tablets by mouth every day at bedtime venlafaxine XR (Effexor XR) 150 MG 24 hr capsule TOME 2 C PSULAS POR V A ORAL TODOS LOS D EN DORA LOPEZ [DISCONTINUED] hydroCHLOROthiazide (HYDRODiuril) 50 MG tablet TAKE 1 TABLET BY MOUTH EVERY MORNING 90 tablet 3 No current facility-administered medications on file prior to visit. documented in this encounter Plan of Treatment Upcoming Encounters Date Type Department Care Team (Late st Contact Info) Description 06/07/2025 2:30 PM EST Office Visit [facility] OPTOMETRY [address] [place], [place] [phone] Dawson, Mulu, OD [address] [place] [address] Scheduled Orders Name Type Priority Associated Diagnoses Orde r Schedule Basic Metabolic Panel Lab Routine Hypokalemia Expected: 04/11/2025 (Approximate), Expires: 04/11/2026 Lipid Panel, Standard Lab Routine Type 2 diabetes mellitus without complication, without long-term current use of insulin (HCC) Expected: 04/11/2025 (Approximate), Expires: 04/11/2026 Albumin, Random Urine W/Creatinine Lab Routine Type 2 diabetes mellitus without complication, without long-term current use of insulin (HCC) Expected: 04/11/2025 (Approximate), Expires: 04/11/2026 Urinalysis with reflex microscopic Lab Routine UTI symptoms Expected: 04/11/2025, Expires: 04/11/2026 Culture, Urine, Routine Microbiology Routine UTI symptoms Expected: 04/11/2025 (Approximate), Expires: 04/11/2026 documented as of this encounter Procedures Procedure Name Priority Date/Time Associated Diagnosis Comments POCT GLUCOSE Routine 04/11/2025 3:23 PM EST Type 2 diabetes mellitus without complication, without long-term current use of insulin (HCC) documented in this encounter Results * POCT Glucose (04/11/2025 3:23 PM EST) Glucose Blood, POC 97 60 - 200 mg/dL QC Media Lot # [id number] Lot# Expiration Date 72 Blood Capillary blood specimen / Unknown 04/11/2025 3:23 PM EST us Elizabeth Goncalves MD POINT OF CARE TEST EN TER/EDIT ORDERABLES Final Result documented in this encounter Visit Diagnoses Diagnosis UTI symptoms- Primary Type 2 diabetes mellitus without complication, without long-term current use of insulin (HCC) Hypokalemia Hypopotassemia Fibromyalgia Unspecified myalgia and myositis Primary hypertension Unspecified essential hypertension Encounter for immunization documented in this encounter Additional Health Concerns Assessment Noted Time PHQ-9 Depression Total Score: 0 02/03/20 2:44 PM EDT documented as of this encounter Care Teams Photo Retoucher Relationship Specialty Start Date End Date Elizabeth Dunn MD [address] [place] [address] PCP - General Family Medicine 03/17/18 Kai Bowden, MATT [address] [place] [id number] Registered Nurse Family Medicine 02/08/25 Manuela Melendez 02/08/25 Thao Barnhart Corporate ConsultantClinic Office Coordinator 02/07/23 documented as of this encounter
--- OUTSIDE RECORDS SUMMARY | 2025-04-11 18:38 | XMS_ITS | Encounter Summary ---
Author Organization [employer] Address [address] [place] [address] 7t [place] [address] Care Team Providers Care Electric Switch Repairer Name Role Phone Elizabeth Dunn MD Primary Care Provide r Kai Bowden RN Unavailable [phone] Manuela Melendez Unavailable Encounter Details Date Type Department Care Team (Late st Contact Info) Description 05/17/2022 Abstract [facility] MEDICINE [address] [place] [address] Linda Romero, PharmD 230 [place] [address] Social History Tobacco Use Types Packs/Day Years [...] [facility] OPTOM[facility]RY [address] [place], [place] [phone] Mulu Osman, OD 230 [place] [address] documented as of this encounter Visit Diagnoses Not on filedocumented in this encounter Care Teams Electric Switch Repairer Relationship Specialty Start Date End Date Elizabeth Dunn MD [address] [place] [address] PCP - General Family Medicine 03/17/18 Kai Bowden, RN [address] [place] [address] Registered Nurse Family Medicine 02/08/25 Manuela Melendez 02/08/25 Thao Barnhart Puppy WalkerSurgical Orderly 02/07/23 documented as of this encounter
--- OUTSIDE RECORDS SUMMARY | 2025-04-11 18:38 | XMS_ITS | Encounter Summary ---
Author Organization [employer] Address 75 [facility] 7t h Floor [place] [id number] Care Team Providers Care Americanization Teacher Name Role Phone Elizabeth Dunn MD Primary Care Provide r Kai Bowden RN Unavailable [phone] Manuela Melendez Unavailable Encounter Details Date Type Department Care Team (Late st Contact Info) Description 01/12/2025 Orders Only [facility] MEDICINE 230 [place] [address] Elizabeth Dunn MD 230 [place] [address] Social History Tobacco Use Types Packs/Day Years [...] Description 06/07/2025 2:30 PM EST Office Visit [facility] OPTOMETRY [address] [place], [place] [phone] Mulu Osman, OD 230 [place] [address] documented as of this encounter Visit Diagnoses Not on filedocumented in this encounter Additional Health Concerns Assessment Noted Time PHQ-9 Depression Total Score: 0 08/20/19 24 2:32 PM EDT documented as of this encounter Care Teams Americanization Teacher Relationship Specialty Start Date End Date Elizabeth Dunn MD 230 [place] [address] PCP - General Family Medicine 03/17/18 Kai Bowden, MATT [address] [place] [address] Registered Nurse Family Medicine 02/08/25 Manuela Melendez 02/08/25 Thao Barnhart Specifications CheckerChief Operator Synthesis 02/07/23 documented as of this encounter
--- OUTSIDE RECORDS SUMMARY | 2025-04-11 18:38 | XMS_ITS | Encounter Summary ---
Author Organization [employer] Address 75 [facility] 7t [place] [address] Care Team Providers Care Rn Cvicu Name Role Phone Elizabeth Dunn MD Primary Care Provide r Kai Bowden RN Unavailable [phone] Manuela Melendez Unavailable Encounter Details Date Type Department Care Team (Late st Contact Info) Description 03/09/2025 Orders Only [facility] MEDICINE 230 [place] [address] Elizabeth Dunn MD 230 [place] [address] Acute right ankle pain; Right foot pain [...] Description 06/07/2025 2:30 PM EST Office Visit [facility] OPTOMETRY [address] [place] [address] Dawson, Mulu, OD 230 [place] [address] documented as of this encounter Visit Diagnoses Diagnosis Acute right ankle pain Right foot pain Pain in soft tissues of limb documented in this encounter Additional Health Concerns Assessment Noted Time PHQ-9 Depression Total Score: 0 02/03/20 25 2:44 PM EDT documented as of this encounter Care Teams Rn Cvicu Relationship Specialty Start Date End Date Elizabeth Dunn MD [address] [place] [address] PCP - General Family Medicine 03/17/18 Kai Bowden, RN [address] [place] [address] Registered Nurse Family Medicine 02/08/25 Manuela Melendez 02/08/25 Thao Barnhart Information Support Project ManagerFinancial Services Professional 02/07/23 documented as of this encounter
--- OUTSIDE RECORDS SUMMARY | 2025-04-11 18:38 | XMS_ITS | Encounter Summary ---
Author Organization [employer] Address [address] [place] [address] 7t [place] [address] Care Team Providers Care Truck Terminal Manager Name Role Phone Elizabeth Dunn MD Primary Care Provide r Kai Bowden RN Unavailable [phone] Manuela Melendez Unavailable Reason for Visit * Reason Onset Date Comments Med Refill 12/04/2022 Encounter Details Date Type Department Care Team (Late st Contact Info) Description 12/04/2022 Telephone [facility] MEDICINE 230 [place] [address] Elizabeth Dunn MD 230 [place], [place] [phone] Med Refill Social History Tobacco Use Types [...] Description 06/07/2025 2:30 PM EST Office Visit [facility] OPTOMETRY [address], [place] [phone] Mulu Osman, OD 230 [place] [address] documented as of this encounter Visit Diagnoses Not on filedocumented in this encounter Additional Health Concerns Assessment Noted Time PHQ-9 Depression Total Score: 0 08/03/19 23 3:13 PM EDT documented as of this encounter Care Teams Truck Terminal Manager Relationship Specialty Start Date End Date Elizabeth Dunn MD [address] [place], [place] [phone] PCP - General Family Medicine 03/17/18 Kai Bowden, MATT [address] [place] [address] Registered Nurse Family Medicine 02/08/25 Manuela Melendez 02/08/25 Thao Barnhart Level Vial SetterFull Stack Developer 02/07/23 documented as of this encounter
--- OUTSIDE RECORDS SUMMARY | 2025-04-11 18:38 | XMS_ITS | Encounter Summary ---
Author Organization [employer] Address 75 [facility] 7t h Floor [place] [phone] Care Team Providers Care Car Mechanic Name Role Phone Elizabeth Dunn MD Primary Care Provide r Kai Bowden RN Unavailable [phone] Manuela Melendez Unavailable Reason for Visit * Reason Onset Date Comments Med Refill 06/21/2024 Encounter Details Date Type Department Care Team ([facility] st Contact Info) Description 06/21/2024 Telephone [facility] MEDICINE 230 [place] [address] Elizabeth Dunn MD 230 [place], [place] [phone] Med Refill Social History Tobacco Use Types [...] MG tablet To be sent to: [facility]/pharmacy #[id number] documented in this encounter Plan of Treatment Upcoming Encounters Date Type Department Care Team (Late st Contact Info) Description 06/07/2025 2:30 PM EST Office Visit [facility] OPTOMETRY [address] [place] [address] Mulu Osman, OD [address] [place] [address] documented as of this encounter Visit Diagnoses Not on filedocumented in this encounter Additional Health Concerns Assessment Noted Time PHQ-9 Depression Total Score: 0 08/20/19 24 2:32 PM EDT documented as of this encounter Care Teams Car Mechanic Relationship Specialty Start Date End Date Elizabeth Dunn MD [address] [place] [address] PCP - General Family Medicine 03/17/18 Kai Bowden, MATT [address] [place] [address] Registered Nurse Family Medicine 02/08/25 Manuela Melendez 02/08/25 Thao Barnhart Program CounselorRoller Mechanic 02/07/23 documented as of this encounter
--- OUTSIDE RECORDS SUMMARY | 2025-04-11 18:38 | XMS_ITS | Encounter Summary ---
Author Organization [employer] Address [address] [place] [address] 7t [place] [address] Care Team Providers Care Industrial Photographer Name Role Phone Elizabeth Dunn MD Primary Care Provide r Kai Bowden RN Unavailable [phone] Manuela Melendez Unavailable Encounter Details Date Type Department Care Team (Late Contact Info) Description 01/29/2023 Orders Only [facility] MEDICINE 230 [place] [address] Provider, MD Hector Social History Tobacco Use [...] 2:30 PM EST Office Visit [facility] OPTOMETRY [address] [place], [place] [phone] Mulu Osman, OD [address] [place] [address] documented as of this encounter Procedures Procedure [...] documented as of this encounter Care Teams Industrial Photographer Relationship Specialty Start Date End Date Elizabeth Dunn MD [address] [place] [address] PCP - General Family Medicine 03/17/18 Kai Bowden, MATT [address] [place] [address] Registered Nurse Family Medicine 02/08/25 Manuela Melendez 02/08/25 Thao Barnhart Bath AttendantProduct Manager 02/07/23 documented as of this encounter
--- OUTSIDE RECORDS SUMMARY | 2025-04-11 18:38 | XMS_ITS | Clinical Summary ---
Author Organization [facility], Address [address] [place] [address] Phone Care Team Providers Care Physiologist Name Role Phone Elizabeth Dunn MD Primary [...] Calculated 126 0 - 160 mg/dL 05/31/2020 [facility] Provider LAB BLOOD ORDERABLES Sandy l Result from Last 3 Months or Most Recently Relevant to Health Maintenance [place] Sub[place] Plan / Payer (Ef fective 2020-Present) Name:Jose Antonio Rivasda Relation to Subscriber:Self Name:Lelo Rivas Payer ID:Not on file Group ID:Not on file Type:Not on file Address: [address] [place] Care Teams Physiologist Relationship Specialty Start Date End Date Elizabeth Dunn MD [address] [place] [phone] PCP - General Internal Medicine 11/17/20
--- OUTSIDE RECORDS SUMMARY | 2025-04-11 18:38 | XMS_ITS | Encounter Summary ---
Author Organization [employer] Address 75 [facility] 7t [place] [address] Care Team Providers Care School Examiner Name Role Phone Elizabeth Dunn MD Primary Care Provide r Kai Bowden RN Unavailable [phone] Manuela Melendez Unavailable Reason for Visit * Reason Onset Date Comments Nurse Triage 11/26/2023 Encounter Details Date Type Department Care Team ([facility] st Contact Info) Description 11/26/2023 Telephone [facility] MEDICINE 230 [place] [address] Elizabeth Dunn MD [address] [place], [place] [phone] Nurse Triage Social History Tobacco Use Types [...] to PT. Per pt has not called computer network specialist to notify of increased pain with [...] 06/07/2025 2:30 PM EST Office Visit [facility] OPTOMETRY [address] [place], [place] [phone] Dawson, Mulu, OD [address] [place] [address] documented as of this encounter Visit Diagnoses Not on filedocumented in this encounter Additional Health Concerns Assessment Noted Time PHQ-9 Depression Total Score: 0 08/20/19 24 2:32 PM EDT documented as of this encounter Care Teams School Examiner Relationship Specialty Start Date End Date Elizabeth Dunn MD [address] [place] [address] PCP - General Family Medicine 03/17/18 Kai Bowden, MATT [address] [place] [address] Registered Nurse Family Medicine 02/08/25 Manuela Melendez 02/08/25 Thao Barnhart Traveling EngineerDisability Hearing Officer 02/07/23 documented as of this encounter
--- OUTSIDE RECORDS SUMMARY | 2025-04-11 18:38 | XMS_ITS | Clinical Summary ---
Author Organization [facility] Address [address] [place] [address] Phone Care Team Providers Care Finger Grip Machine Operator Name Role Phone Elizabeth Dunn [...] sinusitis 03/18/2024 Microcytic anemia 03/18/2024 Benzodiazepine dependence ([facility] V24, [facility] V28) 03/18/2024 Blurring of visual image 03/18/2024 Chronic idiopathic constipation 03/18/2024 T2DM (type 2 diabetes mellitus) (CMS/[facility] V24, CM S/[facility] V28) 03/18/2024 Injury of kidney 03/18/2024 [...] topic Insurance MEDICAID - [place] Care Teams Finger Grip Machine Operator Relationship Specialty Start Date End Date Elizabeth Dunn MD [address] [phone] PCP - General Internal Medicine 02/12/24
--- OUTSIDE RECORDS SUMMARY | 2025-04-11 18:38 | XMS_ITS ---
Author Organization [employer] Address 75 [facility] 7t [place] [address] Care Team Providers Care Robotic Machine Operator Name Role Phone Elizabeth Dunn MD Primary Care Provide r Kai Bowden RN Unavailable [phone] Manuela Melendez Unavailable CM Complex Status:Outreach In Progress (Enrolling) Start date:02/08/2025 Enrollment reason:ADT Feed Overview ED- Pt went to [facility] ED on 02/07/25. Case Team Name Relationship Phone Kai Bowden RN(Responsible Staff) Registered [employer] nguyen [phone] Continued Care and Services Coordination
--- OUTSIDE RECORDS SUMMARY | 2025-04-11 18:38 | XMS_ITS ---
Author Organization [employer] Address 75 [facility] 7t [place] [address] Care Team Providers Care Heel Stainer Name Role Phone Elizabeth Dunn MD Primary Care Provide r Kai Bowden RN Unavailable [phone] Manuela Melendez Unavailable [facility] Complex Status:Outreach In Progress (Enrolling) Start date:02/08/2025 Enrollment reason:ADT Feed Overview ED- Pt went to [facility] ED on 02/07/25. Case Team Name Relationship Phone Manuela Melendez(Responsible Staff) [phone] Continued Care and Services Coordination
--- OUTSIDE RECORDS SUMMARY | 2025-04-11 18:38 | XMS_ITS | Encounter Summary ---
Author Organization [employer] Address 75 [facility] 7t [place] [address] Care Team Providers Care Special Police Name Role Phone Elizabeth Dunn MD Primary Care Provide r Kai Bowden RN Unavailable [phone] Manuela Melendez Unavailable Reason for Visit * Reason Comments Med Refill Encounter Details Date Type Department Care Team ([facility] st Contact Info) Description 12/15/2024 Refill [facility] MEDICINE [address] [place] [address] Elizabeth Dunn MD 230 [place] [address] Social History Tobacco Use Types Packs/Day Years [...] [facility] [address] [place], [place] [phone] Mulu Osman, OD 230 [place] [address] documented as of this encounter Visit Diagnoses Not on filedocumented in this encounter Additional Health Concerns Assessment Noted Time PHQ-9 Depression Total Score: 0 08/20/19 24 2:32 PM EDT documented as of this encounter Care Teams Special Police Relationship Specialty Start Date End Date Elizabeth Dunn MD 230 [place] [address] PCP - General Family Medicine 03/17/18 Kai Bowden, MATT [address] [place] [address] Registered Nurse Family Medicine 02/08/25 Manuela Melendez 02/08/25 Thao Barnhart [employer] Ax ConsultantLaser Specialist 02/07/23 documented as of this encounter
--- OUTSIDE RECORDS SUMMARY | 2025-04-11 18:38 | XMS_ITS | Clinical Summary ---
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 30 patch 1 025 Active ferrous sulfate 325 (65 Fe) MG EC tabletIndications :Microcytic anemia TAKE 1 TABLET BY MOUTH EVERY DAY. DO NOT CRUSH, CHEW OR SPLIT. 90 tablet Active Additional Information Patient not taking.Reason: Other, Reported on 04/05/2025 ARIPiprazole (Abilify) 2 MG tablet Take 2 [...] complication, without long-term current use of insulin ([facility]) Inject 10 mg under the skin 1 (one) time per week. 2 mL 025 Active FREESTYLE LITE test stripIndications: Type 2 diabetes mellitus without complication, without long-term current use of insulin ([facility]) Use to test blood sugar 1 times daily 100 each 12 025 2025 Active Lancets miscIndications:T ype 2 diabetes mellitus without complication, without long-term current use of insulin ([facility]) Use to test blood sugar 1 times daily 100 each 1 025 Active Alcohol Swabs 70 % padsIndications:T ype 2 diabetes mellitus without complication, without long-term current use of insulin ([facility]) Use to test blood sugar 1 times daily 100 each 1 025 Active Blood Glucose Monitoring Suppl (FreeStyle Lite) w/Device kitIndications:Ty pe 2 diabetes mellitus without complication, without long-term current use of insulin ([facility]) USE TO TEST BLOOD SUGAR 1 TIMES DAILY 1 kit 025 Active Tirzepatide (Mounjaro) 12.5 MG/0.5ML solution auto-injectorIndi cations:Type 2 diabetes mellitus without complication, without long-term current use of insulin ([facility]) Inject 12.5 mg under the skin 1 [...] complication, without long-term current use of insulin ([facility]) Inject 15 mg under the skin 1 (one) time per week. 2 mL 3 Active pregabalin (Lyrica) 225 MG capsuleIndication s:Chronic bilateral low back pain with left-sided sciatica TAKE 1 CAPSULE BY MOUTH TWICE A DAY 60 capsule 2 Active methocarbamol (Robaxin) 500 MG tablet Take 1,000 mg by mouth 3 times daily. Active nabumetone (Relafen) 750 MG tabletIndications :Fibromyalgia Take 1 tablet (750 mg) by mouth 2 times daily. 60 tablet 11 025 2025 Active losartan (Cozaar) 100 MG tabletIndications :Primary hypertension Take 1 tablet (100 mg) by mouth Once per day. 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 Hypokalemia 04/11/2025 UTI symptoms 04/11/2025 Schizoaffective disorder ([facility]) 03/22/2025 Assessment & Plan (03/22/2025 2:46 PM [...] left foot, she is being manage by pain/pst specialist (medications prescribed by specialist only) Chronic bilateral low back pain with left-sided sciatica 08/20/2023 Assessment & Plan (01/07/2024 2:12 PM EDT): I will increase gabapentin to 600mg TID and refer her back to pain management Pelvic pain 08/20/2023 Assessment & Plan (08/21/2023 12:20 PM EDT): [employer] referral as per patient's request Preop examination [...] Diagnosed Date Resolved Date Continuous opioid dependence ([facility]/HCC) 04/08/2017 02/02/2025 Encounters Date Type Department Care Team Description 04/11/2025 3:15 PM EST Office Visit [address] [phone] Elizabeth Dunn MD UTI symptoms (Primary Dx); Type 2 diabetes mellitus without complication, without long-term current use of insulin ([facility]); Hypokalemia; Fibromyalgia; Primary hypertension; Encounter for immunization 04/11/2025 Travel 04/11/2025 Patient Outreach [address] [address] Elizabeth Dunn MD Care Coordination ([facility] Manuela Melendez, appointment reminder ) 04/05/2025 10:00 AM EST Telemedicine [address] [address] Jennifer Emerson RN Fibromyositis 04/05/2025 Patient Outreach [address] [address] Elizabeth Dunn MD Care Coordination ([facility]/JB Melendez, rescheduled initial assessment ) 04/05/2025 Travel 04/05/2025 Patient Outreach [facility] [address] [place] [address] [phone] Elizabeth Dunn MD Care Management (C3- Initial assessment/enrollment ) 04/05/[address] [address] Elizabeth Dunn MD ER Follow-up; Error (VOID this visit) 04/05/2025 Patient Outreach [address] [address] Elizabeth Dunn MD Care Coordination ([facility]/JB Melendez, appointment reminder ) 04/04/2025 Orders Only GENERIC EXTERNAL DATA DEPARTMENT Provider, Generic External Data 04/01/[address] [address] Elizabeth Dunn MD chart prep 03/31/[address] [address] Elizabeth Dunn MD Chronic bilateral low back pain with left-sided sciatica 03/30/2025 Patient Outreach [address] [address] Elizabeth Dunn MD Care Coordination ([facility]/Juan Jose Melendez, RS initial assessment ) 03/30/2025 Patient Outreach [address] [address] Elizabeth Dunn MD 03/28/2025 3:30 PM EST Telemedicine [address] [address] Nora Martinez RN Chest wall pain 03/28/2025 Travel 03/27/2025 Orders Only GENERIC EXTERNAL DATA DEPARTMENT Provider, Generic External Data 03/26/2025 Orders Only GENERIC EXTERNAL DATA DEPARTMENT Provider, Generic External Data 03/22/2025 2:30 PM EST Telemedicine [address] [address] Elizabeth Dunn MD Lower extremity pain, left (Primary Dx); Type 2 diabetes mellitus without complication, without long-term current use of insulin (HCC); Schizoaffective disorder, unspecified type (HCC) 03/22/2025 Travel 03/22/2025 Patient Outreach [address] [address] Elizabeth Dunn MD Transition Of Care (Tcm) (HDF - scheduled) 03/22/2025 Telephone [facility] [address] [place] [phone] Elizabeth Dunn MD Hospital Follow-up 03/21/[address] [address] Elizabeth Dunn MD Chart Prep 03/15/2025 Patient Outreach [facility] [address] [place] [phone] Elizabeth Dunn MD Care Management (C3CM- Initial assessment/enrollment /LVM) 03/13/2025 Orders Only GENERIC EXTERNAL DATA DEPARTMENT Provider, Generic External Data 03/09/2025 Orders Only [address] [address] Elizabeth Dunn MD Acute right ankle pain; Right foot pain 03/09/[address] [address] Elizabeth Dunn MD Nurse Triage 03/08/2025 Patient Outreach [address] [address] Elizabeth Dunn MD Care Coordination (C3/CHW Manuela Melendez, rescheduled initial assessment ) 03/07/2025 Patient Outreach [facility] [address] [place] [phone] Elizabeth Dunn MD chest pain 03/07/2025 Patient Outreach [facility] [address] [place] [phone] Elizabeth Dunn MD 03/04/2025 Orders Only GENERIC EXTERNAL DATA DEPARTMENT Provider, Generic External Data 03/01/2025 Orders Only [address] [address] Elizabeth Dunn MD Acute right ankle pain; Right foot pain 03/01/2025 Refill [facility] [address] [place] [address] Elizabeth Dunn MD Acute right ankle pain; Right foot pain 03/01/2025 Orders Only [facility] [address] [place] [phone] Elizabeth Dunn MD Right foot pain (Primary Dx); Acute right ankle pain 03/01/2025 Patient Outreach [facility] [address] [place], [place] [phone] Elizabeth Dunn MD Care Management (C3CM- Initial assessment/enrollment /LVM) 03/01/2025 Telephone [facility] [address] [place] [address] Elizabeth Dunn MD 02/28/2025 2:00 PM EDT Office Visit [facility] [address] [place] [address] Elizabeth Dunn MD Acute right ankle pain; Right foot pain 02/28/2025 Travel 02/28/2025 Telephone [facility] [address] [place] [address] Elizabeth Dunn MD Nurse Triage 02/23/[address] [address] Elizabeth Dunn MD ER Follow-up 02/22/2025 Orders Only GENERIC EXTERNAL DATA DEPARTMENT Provider, Generic External Data 02/21/2025 Results Follow-Up [address] [address] Elizabeth Dunn MD Uric acid 02/15/2025 Orders Only [facility] [address] [place] [phone] Elizabeth Dunn MD 2025 3:15 PM EDT Office Visit [address] [address] Elizabeth Dunn MD Polyarthralgia (Primary Dx); Right foot pain; Left foot pain; Type 2 diabetes mellitus without complication, without long-term current use of insulin (HCC); Fibromyalgia 2025 Travel 02/11/2025 Orders Only [facility] External Provider, [facility] 02/08/[address] [address] Elizabeth Dunn MD ER Follow-up 02/08/2025 Patient Outreach [address] [address] Eilzabeth Dunn MD Care Coordination ([facility] Manuela Melendez, initial assessment scheduled ) 02/08/2025 Patient Outreach [address] [address] Elizabeth Dunn MD Care Coordination ([facility] Manuela Melendez, Chart review ) 02/08/2025 Patient Outreach [facility] [address] [place] [phone] Elizabeth Dunn MD Care Coordination ([facility]- chart review) 02/08/2025 Patient Outreach [address] [address] Elizabeth Dunn MD 02/07/2025 Orders Only GENERIC EXTERNAL DATA DEPARTMENT Provider, Generic External Data 02/02/2025 3:00 PM EDT Telemedicine [address] [address] Elizabeth Dunn MD Diabetic mononeuropathy simplex (CMS/HCC) (Primary Dx); 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order, without psychotic features (CMS/HCC); Mild intermittent asthma, unspecified whether complicated; Continuous opioid dependence (CMS/HCC); Fibromyalgia; Dietary counseling; Exercise counseling; Type 2 diabetes mellitus without complication, without long-term current use of insulin (CMS/HCC) 02/02/2025 Travel 02/01/[address] [address] Elizabeth Dunn MD 01/26/2025 3:30 PM EDT Office Visit [address] [address] Elizabeth Dunn MD Type 2 diabetes mellitus without complication, without long-term current use of insulin (CMS/HCC) (Primary Dx); Fibromyalgia; Acute pain of right shoulder; Class 1 obesity due to excess calories with serious comorbidity and body mass index (BMI) of 34.0 to 34.9 in adult 01/26/2025 Refill [facility] [address] [facility] [place] [address] Elizabeth Dunn MD Type 2 diabetes mellitus without complication, without long-term current use of insulin ([facility]) 01/26/2025 Travel 01/25/2025 Telephone [facility] [address] [place] [address] Elizabeth Dunn MD chart prep 01/21/2025 Travel 01/20/2025 Telephone [facility] [address] [place] [address] Elizabeth Dunn MD appt 01/15/2025 Refill [facility] [address] [place] [address] Vanna Chen MD Microcytic anemia 01/14/2025 Telephone [facility] [address] [place] [address] Elizabeth Dunn MD Prior Authorization ( PA: Trish) 01/12/2025 Orders Only [facility] [address] [place] [address] Elizabeth Dunn MD 01/12/2025 Refill [facility] [address] [place] [address] Elizabeth Dunn MD Class 2 severe obesity with serious comorbidity and body mass index (BMI) of 35.0 to 35.9 in adult, unspecified obesity type ([facility]) 01/11/2025 Refill [facility] [address] [place], [place] [phone] Elizabeth Dunn MD Chronic midline low back [...] 08/02/2022 Pfizer Covid-19 Vaccine 12+ 04/07/2024 Pneumococcal Conjugate PCV 20 04/11/2025 Pneumococcal Polysaccharide PPSV23 04/14/2014, TD (adult), 2 [...] Mass Index 33.05 04/11/2025 3:21 PM EST Plan of Treatment Upcoming Encounters Date Type Department Care Team (Late st Contact Info) Description 06/07/2025 2:30 PM EST Office Visit [facility] [address] [place] [address] Dawson, Mulu, OD [address] [place] [address] Health Maintenance Due Date Last Done Comments CT Colonography 1962 FIT DNA/Cologuard 1962 FIT 1962 FOBT 1962 Sigmoidoscopy 1962 Eye Exam 02/15/1972 Pap Smear 1983 HPV/Cotest 02/15/1992 RSV Patients and Patients Aged 60 years or older (1 - Risk 50-74 years 1-dose series) 02/15/2012 Diabetes: Urine Protein Screening 01/04/2025 01/05/2024, 01/05/2024, [...] Foot Exam 2026 2025, Mammogram 02/15/2026 02/15/2025, 1005/2023, 02/10/2024, Additional history exists Disability Screening 03/22/2026 03/22/2025 Tobacco Screening 04/11/2026 04/11/2025 DTaP/Tdap/Td Vaccines (3 - Td or Tdap) 12/23/2032 12/23/2022, 06/20/2011, 07/20/2008, Additional history exists HIV Screening Completed 10/23/2020 Hepatitis C Screening Completed 10/23/2020 Zoster Vaccines Completed 02/24/2023, 12/23/2022 Influenza Vaccine Completed 03/15/2025, , 08/06/2023, Additional history exists Pneumococcal Vaccine: 50+ Years Completed 04/11/2025, 04/14/2014, 03/12/2000 Cervical Cancer Screening Discontinued HIB Vaccines Aged Out No longer eligi [...] without long-term current use of insulin (HCC) CREATINE KINASE, TOTAL Routine 04/04/2025 5:13 AM EST COMPREHENSIVE METABOLIC PANEL Routine 04/04/2025 5:13 AM EST CBC WITH AUTO DIFFERENTIAL Routine 04/04/2025 5:13 AM EST SARS COV2/INFLUENZA A/B AND RSV RNA QL NAAT Routine 04/04/2025 5:13 AM EST HOLD GREEN GEL Routine 03/27/2025 12:37 AM [...] Relevant to Health Maintenance Results * POCT Glucose (04/11/2025 3:23 PM EST) Only the most recent of2 resultswithin the time period is included. Glucose Blood, POC 97 60 - 200 mg/dL QC Media Lot # [id number] Lot# Expiration Date 7,726 Blood Capillary blood specimen / Unknown 04/11/2025 3:23 PM EST us Elizabeth Goncalves MD POINT OF CARE TEST EN TER/EDIT ORDERABLES Final Result * SARS-CoV-2 RNA, Influenza A/B, and RSV RNA, Ql NAAT (04/04/2025 5:13 AM EST) Influenza A PCR NEGATIVE Negative [facility] Influenza B PCR NEGATIVE Negative [facility] Resp Syncy Virus RNA Qual PCR NEGATIVE Negative [facility] SARS COV2 PCR NEGATIVE Negative [facility] Comment:All test results mus t be correlated with clinical findings.Negative results do not preclude SARS-CoV2, influenza Avirus, influenza B virus and/or RSV infectionand should not be used as the sole basis for treatment orother patient management decisions. Negative results must becombined with clinical observations, patient history, andepidemiological information.This test has not been evaluated for monitoring treatment ofinfection.This test has been authorized by the FDA under an EmergencyUse Authorization (EUA) for use by authorized laboratories.Testing performed on the [employer] GeneXpert utilizingreal-time RT-PCR.All SARS CoV2 and positive influenza A/B results arereported to [facility]. 04/04/2025 5:13 AM EST 04/04/2025 5:19 AM EST Generic External Data Provider LAB MICROBIOLOGY - GENERAL ORDERABLES Final Result [facility] [address] [place] [phone] * (ABNORMAL) CBC auto differential (04/04/2025 5:13 AM EST) Only the most recent of3 resultswithin the time period is included. White Blood Count 10.6 4.8 - 10.8 X10*3/uL [facility] Red Blood Count 5.18 4.20 - 5.50 X10*6/uL [facility] Hemoglobin 12.5 12.0 - 16.0 g/dl [facility] Hematocrit 38.8 37.0 - 47.0 % [facility] Mean Corpuscular Volume 74.9(L) 80.0 - 98.0 fL [facility] Mean Corpuscular Hemoglobin 24.1(L) 27.0 - 33.0 pg [facility] Mean Corpuscular HGB Conc 32.2 31.0 - 35.0 g/dl [facility] Red Cell Distribution Width 18.2(H) 11.0 - 16.0 % [facility] Platelet Count 255 160 - 400 X10*3/uL [facility] Mean Platelet Volume 10.5 9.4 - 12.3 fL [facility] Neutrophils Percent Auto 61.9 45 - 73 % [facility] Imm Gran Pct Auto 1.3(H) 0.0 - 0.4 % [facility] Lymphocytes Percent Auto 28.1 20 - 40 % [facility] Monocytes Percent Auto 6.6 2 - 11 % [facility] Eosinophils Percent Auto 1.7 0 - 4 % [facility] Basophils Percent Auto 0.4 0 - 2 % [facility] NRBC Pct Auto 0.0 0.0 - 0.2 /100WBC [facility] Neutrophils Absolute Auto 6.6 2.0 - 8.3 x10*3/uL [facility] Imm Gran Abs Auto 0.14(H) 0.00 - 0.03 X10*3/uL [facility] Lymphocytes Absolute Auto 3.0 1.2 - 4.9 X10*3/uL [facility] Monocytes Absolute Auto 0.7 0.1 - 1.2 X10*3/uL [facility] Eosinophils Absolute Auto 0.2 0.0 - 0.4 X10*3/uL [facility] Basophils Absolute Auto 0.0 0.0 - 0.2 X10*3/uL [facility] NRBC Abs Auto 0.000 0.0 - 0.012 X10*3/uL [facility] 04/04/2025 5:13 AM EST 04/04/2025 5:19 AM EST us Generic External Data Provider LAB BLOOD ORDERAB LES Final Result Performing Organization Address City/[facility]/ZIP Co de Phone Number [facility] [address] [place] [phone] * Creatine Kinase, Total (04/04/2025 5:13 AM EST) Creatine Kinase Total 50 26 - 140 U/L [facility] 04/04/2025 5:13 AM EST 04/04/2025 5:19 AM EST Generic External Data Provider LAB BLOOD ORDERAB LES Final Result Performing Organization Address [facility] de Phone Number [facility] [address] [place] [phone] * (ABNORMAL) Comprehensive Metabolic Panel (04/04/2025 5:13 AM EST) Only the most recent of2 resultswithin the time period is included. Pathologist [facility] Sodium 139 135 - 145 mmol/L [facility] Potassium 3.0(L) 3.3 - 5.1 mmol/L [facility] Chloride 104 96 - 108 mmol/L [facility] Carbon Dioxide 21(L) 22 - 29 mmol/L [facility] Anion Gap 17 12 - 20 [facility] Urea Nitrogen (BUN) 24(H) 9 - 16 mg/dL [facility] Creatinine, Serum 1.13 0.5 - 1.4 mg/dL [facility] Creatinine Clr Calc Pharmacy 54.8 [facility] Comment:Provided height and weight: 167.64 cm,81.647 kg.eGFR (calculated from the MDRD study equation) and eCrCl(calculated from the Cockcroft-Gault equation) are based ondifferent parameters and may not yield comparable results.If eCrCl result is absurd, please check patient'sheight/weight. Estimated Glomerular Filt Rate 49 [facility] Comment:Chronic Kidney Disea se: Estimated GFR < 60 mL/min/[id number] Kidney Disease: Estimated GFR < 15 mL/min/1.73m2 Glucose 136(H) 60 - 115 mg/dL [facility] Calcium 9.1 8.4 - 10.2 mg/dL [facility] Bilirubin, Total 0.3 0.0 - 1.0 mg/dL [facility] Aspartate Amino Transferase 17 5 - 31 U/L [facility] Alanine Aminotransferase 11 0 - 31 U/L [facility] Total Protein 7.6 6.5 - 8.0 g/dL [facility] Albumin Level 4.4 3.5 - 5.0 g/dL [facility] Alkaline Phosphatase 86 39 - 117 U/L [facility] 04/04/2025 5:13 AM EST 04/04/2025 5:19 AM EST Generic External Data Provider LAB BLOOD ORDERAB LES Final Result Performing Organization Address [facility]/ZIP Co de Phone Number [facility] [address] [place] [phone] * Hold Green Gel (03/27/2025 12:37 AM EST) Pathologist [facility] Hold Green Gel See Note [facility] Comment:Specimen held untest ed for 24 hours; Call to requestChemistry testing. 03/27/2025 12:3 7 AM EST 03/27/2025 12:42 AM EST Generic External Data Provider HISTORICAL/NON OR DERABLE LABS Final Result Performing Organization Address [facility]/ZIP Co de Phone Number [facility] [address] [place] [phone] * D Dimer High Sensitivity (03/27/2025 12:37 AM EST) D Dimer High Sensitivity 205 NG/ML [facility] Comment:D-DIMER HS REFERENCE RANGENote: Our assay [...] LES Final Result Performing Organization Address [facility] Phone Number [facility] [address] [place] [phone] * High Sensitivity Troponin I (03/26/2025 11:03 PM EST) Only the most recent of2 resultswithin the time period is included. TROPONIN I HIGH SENSITIVITY <2.7 <3.5 - 17.0 ng/L [facility] Comment:The [place] high sens itivity Troponin-I results should beused in conjunction with other diagnostic information suchas ECG, clinical observations and information, and patientsymptoms to aid in the diagnosis of NE. 03/26/2025 11:0 3 PM EST 03/27/2025 12:34 AM EST [employer] External Data Provider LAB BLOOD ORDERAB LES Final Result Performing Organization Address [facility] [address] [place] [phone] * NT-proBNP (03/26/2025 11:03 PM EST) Only the most recent of2 resultswithin the time period is included. NT-proBNP 123.9 <300 pg/mL [facility] Comment:Reference Range:Age Group (years) NT-proBNP (pg/ml) InterpretationAll <300 Negative: HF unlikelyFor patients presenting to the ED with clinical suspicion ofnew onset or worsening HF, see below:18 to <50 >299.9 to <450.0 Grayzone: [id number] to 75 >299.9 to <900.0 other causes of>75 >299.9 to <1800.0 NT-proBNP [id number] to <50 >449.9 Positive: HF [id number] >899.9>75 >1799.9Note: Elevated NT-proBNP levels should be interpreted inthe context of other clinical information. 03/26/2025 11:0 3 PM EST 03/27/2025 12:34 AM EST us Generic External Data Provider LAB BLOOD ORDERAB LES Final Result Performing Organization Address [facility] Co de Phone Number [facility] [address] [place] [phone] * (ABNORMAL) Urinalysis, Complete, with Reflex to Culture (03/13/2025 11:28 PM EST) Only the most recent of2 resultswithin the time period is included. Color Urine Yellow [facility] Appearance Urine Clear [facility] PH 5.0 5.0 - 9.0 [facility] Glucose Urine UA Negative Negative mg/dL [facility] Urine Blood Negative Negative [facility] Specific Curtis - Urine 1.020 1.005 - 1.025 [facility] Urine Protein Negative Neg-Trace mg/dL [facility] Urine Ketones Negative Negative mg/dL [facility] Nitrite Urine Negative Negative [facility] Leukocyte Esterase Urine Trace(A) Negative [facility] RBC Urine 0-2 0 - 2 /HPF [facility] Urine WBC 0-5 0 - 5 /HPF [facility] Urine Squamous Epithelial Cell 3-5 0 - 2 /HPF [facility] Urine Bacteria Trace None Seen [facility] Hyaline Casts, Urine 0-2 0 - 2 /LPF [facility] 03/13/2025 11:2 8 PM EST 03/13/2025 11:38 PM EST Narrative [facility] - 03/13/2025 11:53 PM EST [id number], Clean Catch us Generic External Data Provider LAB URINE ORDERAB LES Final Result Performing Organization Address [facility]/ZIP Co de Phone Number [facility] [address] [place] [address] [phone] * Drug Monitoring, Panel 1, Screen, Urine (03/13/2025 11:28 PM EST) Opiate Screen Urine Not Detected Not Detect [facility] Comment:Opiate cut-off is 30 0 ng/mL.Positive results are unconfirmed and should not be used fornon-medical purposes. Barbiturates, Urine Not Detected Not Detect [facility] Comment:Barbiturate cut-off is 200 ng/mL.Positive results are unconfirmed and should not be used fornon-medical purposes. Phencyclidine Screen Urine Not Detected Not Detect [facility] Comment:Phencyclidine cut-of f is 25 ng/mL.Positive results are unconfirmed and should not be used fornon-medical purposes. Amphetamine Screen Urine Not Detected Not Detect [facility] Comment:Amphetamine cut-off is 1000 ng/mL.Positive results are unconfirmed and should not be used fornon-medical purposes. Benzodiazepines Screen Urine Not Detected Not Detect [facility] Comment:Benzodiazepine cut-o ff is 200 ng/mL.Positive results are unconfirmed and should not be used fornon-medical purposes. Cocaine Screen Urine Not Detected Not Detect [facility] Comment:Cocaine cut-off is 3 00 ng/mL.Positive results are unconfirmed and should not be used fornon-medical purposes. Cannabinoid Screen Urine Not Detected Not Detect [facility] Comment:Cannabinoid cut-off is 50 ng/mL.Positive results are unconfirmed and should not be used fornon-medical purposes. Methadone Screen, Urine Not Detected Not Detect ng/mL [facility] Comment:Methadone cut-off is 300 ng/mL.Positive results are unconfirmed and should not be used fornon-medical purposes. FENTANYL URINE Not Detected Not Detect [facility] Comment:Fentanyl cut-off is 1 ng/mL.Positive results are unconfirmed and should not be used fornon-medical purposes. Oxycodone Urine Screen Not Detected Not Detect ng/mL [facility] Comment:Oxycodone cut-off is 100 ng/mL.Positive results are unconfirmed and should not be used fornon-medical purposes. Buprenorphine Screen Not Detected Not Detect ng/mL [facility] Comment:Buprenorphine cut-of f is 5 ng/mL.Positive results are unconfirmed and should not be used fornon-medical purposes. 03/13/2025 11:2 8 PM EST 03/13/2025 11:38 PM EST Generic External Data Provider LAB URINE ORDERAB LES Final Result Performing Organization Address City/[facility]/ZIP Co de Phone Number [facility] [address] [place] [phone] * (ABNORMAL) Urinalysis w/reflex microscopic (03/13/2025 11:28 PM EST) Color Urine Yellow [facility] Appearance Urine Clear [facility] PH 5.0 5.0 - 9.0 [facility] Glucose Urine UA Negative Negative mg/dL [facility] Urine Blood Negative Negative [facility] Specific Curtis - Urine 1.020 1.005 - 1.025 [facility] Urine Protein Negative Neg-Trace mg/dL [facility] Urine Ketones Negative Negative mg/dL [facility] Nitrite Urine Negative Negative [facility] Leukocyte Esterase Urine Trace(A) Negative [facility] 03/13/2025 11:2 8 PM EST 03/13/2025 11:38 PM EST Narrative [facility] - 03/13/2025 11:46 PM EST [id number], Clean Catch Generic External Data Provider LAB URINE ORDERAB LES Final Result Performing Organization Address [facility] Co de Phone Number [facility] [address] [place] [phone] * Glucose, Whole Blood (03/04/2025 6:32 PM EDT) Only the most recent of2 resultswithin the time period is included. Glucose, Whole Blood 62 60 - 115 mg/dL [facility] Comment:METER #: [id number] 03/04/2025 6:32 PM EDT 03/04/2025 6:36 PM EDT us Generic External Data Provider LAB BLOOD ORDERAB LES Final Result Performing Organization Address City/State/[facility] Co de Phone Number [facility] [address] [place] [address] [phone] * XR Chest 1 View (02/22/2025 2:39 PM EDT) Anatomical Region Laterality Modality Chest Radiographic Delilah ging 02/22/2025 2:39 PM EDT Narrative 02/22/2025 2:56 PM EDT [address] [address] XRay Report Signed Patient: Lelo Plata MR# : [id number] : 1960 Acct:[id number] Age/Sex: 65 / F ADM Date: 02/22/25 Loc: HO.ED Attending Dr: Ordering Physician: Cortes Hammer MD Date of Service: 02/22/25 Procedure(s): XR chest 1V Accession Number(s): [id number] cc: Elizabeth Dunn MD; Cortes Hammer MD [...] in OV> 02/22/25 1453 DD/ 1439 TD/TT: 02/22/251444 Tape Cutter: Procedure Note Donotrobbininterpreter, Image - 02/22/[address] [address] XRay Report Signed Patient: Lelo Plata RMR# : [id number] : 1960cct:[id number] Age/Sex: 65 / FADM Date: 02/22/25 Loc: HO.ED Attending Dr: Ordering Physician: Cortes Hammer MD Date of Service: 02/22/25 Procedure(s): XR chest 1V Accession Number(s): [id number] cc: Elizabeth Dunn MD; Cortes Hammer MD [...] in OV> 02/22/25 1453 DD/ 1439 TD/TT: 02/22/251444 Tape Cutter: [facility] External Provider IMG XR PROCEDURES Final Result * (ABNORMAL) Basic Metabolic Panel (02/22/2025 2:22 PM EDT) Sodium 139 135 - 145 mmol/L [facility] Potassium 4.0 3.3 - 5.1 mmol/L [facility] Comment:Slight Hemolysis.Int erpret result with caution. Chloride 106 96 - 108 mmol/L [facility] Carbon Dioxide 22 22 - 29 mmol/L [facility] Anion Gap 15 12 - 20 [facility] Urea Nitrogen (BUN) 20(H) 9 - 16 mg/dL [facility] Creatinine, Serum 0.85 0.5 - 1.4 mg/dL [facility] Creatinine Clr Calc Pharmacy 76.0 [facility] Comment:Provided height and weight: 165.1 cm,92.2 kg.eGFR (calculated from the MDRD study equation) and eCrCl(calculated from the Cockcroft-Gault equation) are based ondifferent parameters and may not yield comparable results.If eCrCl result is absurd, please check patient'sheight/weight. Estimated Glomerular Filt Rate >60 [facility] Comment:Chronic Kidney Disea se: Estimated GFR < 60 mL/min/1.82m5Azawxk Kidney Disease: Estimated GFR < 15 mL/min/1.73m2 Glucose 60 60 - 115 mg/dL [facility] Calcium 8.6 8.4 - 10.2 mg/dL [facility] 02/22/2025 2:22 PM EDT 02/22/2025 2:25 PM EDT us Generic External Data Provider LAB BLOOD ORDERAB LES Final Result Performing Organization Address City/State/[facility] Co de Phone Number [facility] [address] [place] [phone] * Prothrombin Time-INR (02/22/2025 1:22 PM EDT) Prothrombin Time 11.0 10.9 - 12.4 SEC [facility] INTERNATIONAL NORM RATIO 1.0 0.9 - 1.1 [facility] Comment:INTERNATIONAL NORMAL IZED RATIO (INR) [...] ORDERAB LES Final Result Performing Organization Address [facility] Co de Phone Number [facility] [address] [place] [phone] * (ABNORMAL) Uric acid (02/18/2025 1:14 PM EDT) Uric Acid 6.3(H) 2.4 - 5.7 mg/dL [facility] Blood Venous blood specimen / Unknown 02/18/2025 1:14 PM EDT 02/18/2025 4:31 PM EDT us Elizabeth Goncalves MD LAB BLOOD ORDERABLES Final Result Performing Organization Address [facility] de Phone Number [facility] [address] [place] [phone] * BI Mammogram Screening Tomosynthesis Bilateral (02/15/2025 9:05 AM EDT) Anatomical Region Laterality Modality Breast Bilateral Mammography 02/15/2025 9:05 AM EDT Narrative 02/22/2025 9:47 AM EDT [facility] [address] [place] [address] Mammography Report Signed Patient: Lelo Plata MR# : [id number] : 1960 Acct:[id number] Age/Sex: 65 / F ADM Date: 02/15/25 Loc: HO.MAMMO Attending Dr: Elizabeth Goncalves MD Ordering Physician: Elizabeth Dunn MD Results: 1Negative Date of Service: 02/15/25 Follow Up: 1 Year From Orig inal Mammogram Procedure(s): MM tomosynthesis screening BI Accession Number(s): [id number] cc: Elizabeth Dunn MD Reason For Exam: [...] in OV> 02/22/2544 DD/ 4 TD/TT: 02/15/25927 Tape Cutter: Procedure Note Donotuseinterpreter, Image - 02/22/2025 [facility] [address] [place] [address] Mammography Report Signed Patient: Lelo Plata RMR# : [id number] : 1960cct:[id number] Age/Sex: 65 / FADM Date: 02/15/25 Loc: LIONEL Attending Dr: Elizabeth Goncalves MD Ordering Physician: Elizabeth Dunn MDResults: 1Negative Date of Service: 02/15/25Follow Up: 1 Year From Orig inal Mammogram Procedure(s): MM tomosynthesis screening BI Accession Number(s): [id number] cc: Elizabeth Dunn MD Reason For Exam: [...] in OV> 02/22/2544 DD/ 4 TD/TT: 02/15/25927 Tape Cutter: Elizabeth Goncalves MD IMG BI PROCEDURES Fin al Result * XR Foot 3+ Views Right (02/12/2025 1:30 AM EDT) Anatomical Region Laterality Modality Lower Extremities, Foot Right Radiogra phic Imaging 02/12/2025 1:30 AM EDT Narrative 02/12/2025 1:32 AM EDT [address] [address] XRay Report Signed Patient: Lelo Plata MR# : [id number] : 1960 Acct:[id number] Age/Sex: 64 / F ADM Date: 02/11/25 Loc: HO.ED Attending Dr: Ordering Physician: Perla Turner Date of Service: 02/12/25 Procedure(s): XR foot RT min 3V Accession Number(s): [id number] cc: Elizabeth Dunn MD; Perla Turner Reason [...] in OV> 02/12/25131 DD/ 9 TD/TT: 02/12/25129 Tape Cutter: Procedure Note Donotuseinterpreter, Image - 02/12/2025 [place] [address] XRay Report Signed Patient: Lelo Plata RMR# : [id number] : 1960cct:[id number] Age/Sex: 64 / FADM Date: 02/11/25 Loc: HO.ED Attending Dr: Ordering Physician: Perla Turner Date of Service: 02/12/25 Procedure(s): XR foot RT min 3V Accession Number(s): [id number] cc: Elizabeth Dunn MD; Perla Turner Reason [...] MD in OV> 02/12/25131 DD/ 9 TD/TT: 10/04/25 0130 Tape Cutter: us [facility] External Provider IMG XR PROCEDURES Edited Result - Final * CT Abdomen Pelvis w/ Contrast (02/11/2025 11:22 PM EDT) Anatomical Region Laterality Modality Body, Pelvis, Abdomen Computed T omography 02/11/2025 11:2 2 PM EDT Narrative 02/11/2025 11:24 PM EDT [address] [address] [address] Scan Report Signed Patient: Lelo Plata MR# : [id number] : 1960 Acct:[id number] Age/Sex: 64 / F ADM Date: 02/11/25 Loc: HO.ED Attending Dr: Ordering Physician: Perla Turner Date of Service: 02/11/25 Procedure(s): CT abdomen pelvis w IV con Accession Number(s): [id number] cc: Elizabeth Dunn MD; Perla Turner Report Number: [id number]: Total DLP = 0.00 mGy-cm Reason for [...] signed by Estuardo Rodriguez MD in OV> 02/11/253 DD/ 21 TD/TT: 02/11/252321 Tape Cutter: Procedure Note Donotuseinterpreter, Image - 02/11/[address] [address] [address] Scan Report Signed Patient: Lelo Plata RMR# : [id number] : 1960cct:[id number] Age/Sex: 64 / FADM Date: 02/11/25 Loc: HO.ED Attending Dr: Ordering Physician: Perla Turner Date of Service: 02/11/25 Procedure(s): CT abdomen pelvis w IV con Accession Number(s): [id number] cc: Elizabeth Dunn MD; Perla Turner Report Number: [id number]: Total DLP = 0.00 mGy-cm Reason for [...] in OV> 02/11/252322 DD/ 21 TD/TT: 02/11/252321 Tape Cutter: [facility] External Provider IMG CT PROCEDURES Edited Result - Final * XR KUB and Upright 2 Views (02/11/2025 7:34 PM EDT) Anatomical Region Laterality Modality Radiographic Delilah ging 02/11/2025 7:34 PM EDT Narrative 02/11/2025 7:35 PM EDT [address] [address] XRay Report Signed Patient: Lelo Plata R MR# : [id number] : 1960 Acct:[id number] Age/Sex: 64 / F ADM Date: 02/11/25 Loc: HO.ED Attending Dr: Ordering Physician: Perla Turner Date of Service: 02/11/25 Procedure(s): XR KUB Accession Number(s): [id number] cc: Elizabeth Dunn MD; Perla Turner Reason for Exam: constipation CLINICAL HISTORY: constipation Abdominal radiographs Comparison: CT/REG/WV/SR - CT ABDOMEN PELVIS W IV CON [...] in OV> 02/11/251933 DD/ 33 TD/TT: 02/11/251933 Tape Cutter: Procedure Note Donotuseinterpreter, Image - 02/11/[address] [address] XRay Report Signed Patient: Lelo Plata RMR# : [id number] : 1960cct:[id number] Age/Sex: 64 / FADM Date: 02/11/25 Loc: HO.ED Attending Dr: Ordering Physician: Perla Turner Date of Service: 02/11/25 Procedure(s): XR KUB Accession Number(s): [id number] cc: Elizabeth Dunn MD; Perla Turner Reason for Exam: constipation CLINICAL HISTORY: constipation Abdominal radiographs Comparison: CT/REG/WV/SR - CT ABDOMEN PELVIS W IV CON [...] in OV> 02/11/251933 DD/ 33 TD/TT: 02/11/251933 Tape Cutter: [facility] External Provider IMG XR PROCEDURES Final Result * VASC US Lower Extremity Venous Duplex Bilateral (02/07/2025 9:39 PM EDT) 02/07/2025 9:39 PM EDT Narrative [facility] - 02/07/2025 9:41 PM EDT [address] [address] Ultrasound Report Signed Patient: Lelo Plata MR# : [id number] : 1960 Acct:[id number] Age/Sex: 64 / F ADM Date: 02/07/25 Loc: HO.ED Attending Dr: Ordering Physician: Kaitlynn Wang Date of Service: 02/07/25 Procedure(s): US venous duplex LE BI Accession Number(s): [id number] cc: Elizabeth Dunn MD; Kaitlynn Wang Reason for Exam: pain swelling LEs CLINICAL HISTORY: pain swelling LEs Venous duplex ultrasound bilateral lower extremity Comparison: US/SR - US VENOUS DUPLEX LE 11/12/23 18:09 EDT Findings: The visualized deep [...] in OV> 02/07/252139 DD/ 38 TD/TT: 02/07/252138 Tape Cutter: Procedure Note Donotuseinterpreter, Image - 02/07/2025 [place] [address] Ultrasound Report Signed Patient: Lelo Plata RMR# : [id number] : 1960cct:[id number] Age/Sex: 64 / FADM Date: 02/07/25 Loc: .ED Attending Dr: Ordering Physician: Kaitlynn Wang Date of Service: 02/07/25 Procedure(s): US venous duplex LE BI Accession Number(s): [id number] cc: Elizabeth Dunn MD; Kaitlynn Wang Reason for Exam: pain swelling LEs CLINICAL HISTORY: pain swelling LEs Venous duplex ultrasound bilateral lower extremity Comparison: US/SR - US VENOUS DUPLEX LE 11/12/23 18:09 EDT Findings: The visualized deep [...] in OV> 02/07/252139 DD/ 38 TD/TT: 02/07/252138 Tape Cutter: [facility] External Provider CV VASC ULAR PROCEDURES Final Result Performing Organization Address [facility]/ZIP Co de Phone Number [facility] [address] [place] [address] * (ABNORMAL) Sed Rate by Modified Westergren (02/07/2025 8:52 PM EDT) Erythrocyte Sedimentation Rate 25(H) 0 - 20 MM/HR [facility] Comment:Patients with polycy themia and many hemoglobin abnormalitiesmay have depressed sed rates whereas patients with anemiamay have elevated sed rates. 02/07/2025 8:52 PM EDT 02/07/2025 8:57 PM EDT Generic External Data Provider LAB BLOOD ORDERAB LES Final Result Performing Organization Address [facility] Co de Phone Number [facility] [address] [place] [phone] * (ABNORMAL) C-reactive Protein (02/07/2025 8:52 PM EDT) C Reactive Protein 1.09(H) < or = 0.50 mg/dL [facility] 02/07/2025 8:52 PM EDT 02/07/2025 8:57 PM EDT Generic External Data Provider LAB BLOOD ORDERAB LES Final Result Performing Organization Address [facility] Co de Phone Number [facility] [address] [place] [phone] * Magnesium (02/07/2025 8:52 PM EDT) Magnesium 2.1 1.6 - 2.6 mg/dL [facility] 02/07/2025 8:52 PM EDT 02/07/2025 8:57 PM EDT us Generic External Data Provider LAB BLOOD ORDERAB LES Final Result [facility] [address] [place] [phone] * POCT Hgb A1c (01/26/2025 3:42 PM EDT) Hemoglobin A1C 5.6 4.0 - 5.7 % QC Media Lot # [id number] Lot# Expiration Date 31289 Blood 01/26/2025 3:42 PM EDT us Elizabeth Goncalves MD POINT OF CARE TEST EN TER/EDIT ORDERABLES Final Result * Albumin, Random Urine W/Creatinine (01/05/2024 8:25 AM EDT) Creatinine, Urine 223.33 mg/dL [facility] Microalbumin Urine 9.0 mg/L [facility] Microalbum Creatinine Ratio Ur 4.0 <30 ug/mg cr [facility] Comment:Albumin/Creatinine R atio Reference Ranges: Normal: < 30 ug/mg creatinine Microalbuminuria: 30 - 300 ug/mg creatinineClinical Albuminuria: > 300 ug/mg creatinine Urine (Urine, Random) 01/05/2024 8:25 AM EDT 01/05/2024 11:48 AM EDT us Elizabeth Goncalves MD LAB URINE ORDERABLES Final Result [facility] [address] [place] [phone] * (ABNORMAL) Lipid Panel with Reflex to Direct LDL (01/05/2024 8:22 AM EDT) Triglycerides 180(H) <150 mg/dL [facility] Comment:Desirable Triglyceri de: less than 150 mg/dLBorderline High Triglyceride 150-199 mg/dLHigh Triglyceride: 200-499 mg/dLVery High Triglyceride: greater than or equal to 5OO mg/dL Cholesterol 240(H) <200 mg/dL [facility] Comment:Desirable Cholestero l: less than 200 mg/dLBorderline High Cholesterol: 200-239 mg/dLHigh Cholesterol: greater than 239 mg/dL LDL Cholesterol Calculated 138(H) <100 mg/dL [facility] Comment:Desirable LDL: less than 100 mg/dLNear Optimal/Above Optimal LDL: 110- 129 mg/dLBorderline High LDL: 130-159 mg/dLHigh LDL: 160-189 mg/dLVery High LDL: greater than or equal to 190 mg/dL HDL Cholesterol 66 >40 mg/dL [facility] Comment:Desirable HDL: great er than 40 mg/dL Note: This HDL assay may give artificially low results in patients with liver disease. Blood 01/05/2024 8:22 AM EDT 01/05/2024 11:52 AM EDT Elizabeth Goncalves MD LAB BLOOD ORDERABLES Final Result [facility] [address] [place] [address] [phone] * Hm Colonoscopy (12/10/2022) us Historical [...] a test for HCV RNA (test code 45439) is suggested. For additional information please refer to http://education.LVL6/faq/AXT45r2 (This link is being provided for informational/ educational purposes only.) 10/23/2020 10:0 8 AM EDT Elizabeth Goncalves MD HISTORICAL/NON ORDERA BLE LABS Final Result Performing Organization Address [facility] de Phone Number [facility] [address] * HIV 1/2 ANTIGEN/ANTIBODY,FOURTH GENERATION W/RFL [...] purpose. For additional information please refer to http://education.Downloadperu.com.etrigg/faq/QWB470 (This link is being provided for informational/ educational purposes only.) The performance of this assay has not been clinically validated in patients less than 2 years old. 10/23/2020 10:0 8 AM EDT Elizabeth Goncalves MD LAB BLOOD ORDERABLES Final Result Performing Organization Address [facility] Co de Phone Number [facility] [address] from Last 3 Months or Most Recently Relevant to Health Maintenance Insurance C3 Care Teams Helmet Hat Brim Cutter Relationship Specialty Start Date End Date Elizabeth Dunn MD [address] [place] [phone] PCP - General Family Medicine 03/17/18 Kai Bowden, RN [address] [place] [phone] Registered Nurse Family Medicine 02/08/25 Manuela Melendez 02/08/[address] Thao Barnhart [address] Of AudiologyCircuit Court Magistrate 02/07/23
--- OUTSIDE RECORDS SUMMARY | 2025-04-11 18:38 | XMS_ITS | Encounter Summary ---
Author Organization [employer] Address [address] [place] [address] [address] [place] [phone] Care Team Providers Care Box Sealing Inspector Name Role Phone Elizabeth Dunn MD Primary Care Provide r Kai Bowden RN Unavailable [phone] Manuela Melendez Unavailable Reason for Visit * Reason Onset Date Comments Prior Authorization 01/14/2025 PA: Augusto und Encounter Details Date Type Department Care Team ([facility] st Contact Info) Description 01/14/2025 Telephone [facility] [address] [place] [phone] Elizabeth Dunn MD [address] [place], [place] [phone] Prior Authorization ( PA: Trish) Social History [...] back to discuss update Contact pt at [phone] (faroese) * Telephone Encounter - Lo Clemens - 01/14/2025 11:55 AM EDT Tc from pt stating a PA is needed for Tirzepatide-Weight Management (Zepbound) 10 MG/0.5ML solutionauto-injector Contact pt at [phone] (faroese) documented in this encounter Plan of Treatment Upcoming Encounters Date Type Department Care Team (Late st Contact Info) Description 06/07/2025 2:30 PM EST Office Visit [facility] [address] [place], [place] [phone] Mulu Osman, OD [address] [place] [address] documented as of this encounter Visit Diagnoses Not on filedocumented in this encounter Additional Health Concerns Assessment Noted Time PHQ-9 Depression Total Score: 0 08/20/19 24 2:32 PM EDT documented as of this encounter Care Teams Box Sealing Inspector Relationship Specialty Start Date End Date Elizabeth Dunn MD [address] [place], [place] [phone] PCP - General Family Medicine 03/17/18 Kai Bowden, MATT [address] [place] [address] Registered Nurse Family Medicine 02/08/25 Manuela Melendez 02/08/25 Thao Barnhart Manager Respiratory CareSea Kayaking Guide 02/07/23 documented as of this encounter
--- OUTSIDE RECORDS SUMMARY | 2025-04-11 18:38 | XMS_ITS | Encounter Summary ---
Author Organization [employer] Address [address] [facility] [address]t h [address] [place] [phone] Care Team Providers Care Curtain Hemmer Automatic Name Role Phone Elizabeth Dunn MD Primary Care Provide r Kai Bowden RN Unavailable [phone] Manuela Melendez Unavailable Encounter Details Date Type Department Care Team (Late st Contact Info) Description 03/26/2024 Orders Only [facility] [address] [place] [address] Elizabeth Dunn MD [address] [place] [address] Social History Tobacco Use Types Packs/Day Years [...] Description 06/07/2025 2:30 PM EST Office Visit [facility] [address] [place], [place] [phone] Mulu Osman, OD [address] [place] [address] documented as of this encounter Visit Diagnoses Not on filedocumented in this encounter Additional Health Concerns Assessment Noted Time PHQ-9 Depression Total Score: 0 08/20/19 24 2:32 PM EDT documented as of this encounter Care Teams Curtain Hemmer Automatic Relationship Specialty Start Date End Date Elizabeth Dunn MD [address] [place] [address] PCP - General Family Medicine 03/17/18 Kai Bowden, MATT [address] [place] [address] Registered Nurse Family Medicine 02/08/25 Manuela Melendez 02/08/25 Thao Barnhart Public Relations DirectorSoftball Core Molder 02/07/23 documented as of this encounter
--- OUTSIDE RECORDS SUMMARY | 2025-04-11 18:39 | XMS_ITS | Encounter Summary ---
Author Organization [employer] Address 75 [facility] 7t h Floor [place] [id number] Care Team Providers Care Warehouse Pricing And Inventory Clerk Name Role Phone Elizabeth Dunn MD Primary Care Provide r Kai Bowden RN Unavailable [phone] Manuela Melendez Unavailable Reason for Visit * Reason Onset Date Comments Hospital Follow-up 03/22/2025 Encounter Details Date Type Department Care Team ([facility] Contact Info) Description 03/22/2025 Telephone [facility] [address] [place] [address] Elizabeth Dunn MD [address] [place] [address] Hospital Follow-up Social History Tobacco Use Types [...] from pt requesting a HDF appt. Hospital: [facility] Date of admission: 03/14 Discharge date: 03/19 Diagnosed: depression *Send message to [employer] Clinical Care Coordinators documented in this encounter Plan of Treatment Upcoming Encounters Date Type Department Care Team (Late st Contact Info) Description 06/07/2025 2:30 PM EST Office [facility] [address] [place] [address] Dawson, Mulu, OD 230 [facility] [place] [address] documented as of this encounter Visit Diagnoses Not on filedocumented in this encounter Additional Health Concerns Assessment Noted Time PHQ-9 Depression Total Score: 0 02/03/20 25 2:44 PM EDT documented as of this encounter Care Teams Warehouse Pricing And Inventory Clerk Relationship Specialty Start Date End Date Elizabeth Dunn MD [address] [place] [address] PCP - General Family Medicine 03/17/18 Kai Bowden, MATT [address] [place] [address] Registered Nurse Family Medicine 02/08/25 Manuela Melendez 02/08/25 Thao Barnhart Composite MechanicTrain Control Technician 02/07/23 documented as of this encounter
--- OUTSIDE RECORDS SUMMARY | 2025-04-11 18:39 | XMS_ITS | Encounter Summary ---
Author Organization [employer] Address 75 [facility] 7t [place] [address] Care Team Providers Care Quantitative Associate Name Role Phone Elizabeth Dunn MD Primary Care Provide r Kai Bowden RN Unavailable [phone] Manuela Melendez Unavailable Reason for Visit * Reason Comments Care Coordination C3CM/CHW Manuela chen, appointment reminder Encounter Details Date Type Department Care Team (Latest Contact Info) Description 04/11/2025 Patient Outreach [facility] MEDICINE [address] [place] [address] Elizabeth Dunn MD [address] [place] [address] Care Coordination (C3CM/SARITAW Manuela Melendez, appointment reminder ) Social History Tobacco Use Types Packs/Day [...] encounter Progress Notes * Manuela Melendez - 04/11/2025 9:47 AM EST CHW Manuela Melendez placed outbound call to patient introducing herself from [facility] CM Department, in regards to remind patient of Adult Complex Care program initial assessment appt fortomorrow 04/12/25 @ 10:00 AM via telephone. Patient's name and was confirmed. Patient is aware and confirmed will be available for call and has no barriers on attending call. Patient verbalized understanding and agrees with plan. documented in this encounter Plan of Treatment Upcoming Encounters Date Type Department Care Team (Late st Contact Info) Description 06/07/2025 2:30 PM EST Office Visit [facility] OPTOMETRY [address] [place] [address] Mulu Osman, OD [address] [place] [address] documented as of this encounter Visit Diagnoses Not on filedocumented in this encounter Additional Health Concerns Assessment Noted Time PHQ-9 Depression Total Score: 0 02/03/20 25 2:44 PM EDT documented as of this encounter Care Teams Quantitative Associate Relationship Specialty Start Date End Date Elizabeth Dunn MD [address] [place] [address] PCP - General Family Medicine 03/17/18 Kai Bowden, MATT [address] [place] [address] Registered Nurse Family Medicine 02/08/25 Manuela Melendez 02/08/25 Thao Barnhart Welfare AideOfficer Captain 02/07/23 documented as of this encounter
--- OUTSIDE RECORDS SUMMARY | 2025-04-11 18:39 | XMS_ITS | Encounter Summary ---
Author Organization [employer] Address [address] [place] [address] 7t [place] [address] Care Team Providers Care Policy Value Calculator Name Role Phone Elizabeth Dunn MD Primary Care Provide r Kai Bowden RN Unavailable [phone] Manuela Melendez Unavailable Reason for Visit * Reason Onset Date Comments Med Refill 12/17/2022 Encounter Details Date Type Department Care Team (Late st Contact Info) Description 12/17/2022 Telephone [facility] MEDICINE [address] [place] [address] Elizabeth Dunn MD 230 [place], [place] [phone] Med Refill Social History Tobacco Use Types [...] Description 06/07/2025 2:30 PM EST Office Visit [facility] OPTOMETRY [address] [place], [place] [phone] Mulu Osman, OD [address] [place] [address] documented as of this encounter Visit Diagnoses Not on filedocumented in this encounter Additional Health Concerns Assessment Noted Time PHQ-9 Depression Total Score: 0 08/03/19 23 3:13 PM EDT documented as of this encounter Care Teams Policy Value Calculator Relationship Specialty Start Date End Date Elizabeth Dunn MD [address] [place], [place] [phone] PCP - General Family Medicine 03/17/18 Kai Bowden, MATT [address] [place] [address] Registered Nurse Family Medicine 02/08/25 Manuela Melendez 02/08/25 Thao Barnhart Electrocardiograph TechnicianGluer 02/07/23 documented as of this encounter
--- OUTSIDE RECORDS SUMMARY | 2025-04-11 18:39 | XMS_ITS | Encounter Summary ---
Author Organization [employer] Address [address] [facility] 7t [place] [address] Care Team Providers Care Clarification Operator Name Role Phone Elizabeth Dunn MD Primary Care Provide r Kai Bowden RN Unavailable [phone] Manuela Melendez Unavailable Encounter Details Date Type Department Care Team (Latest Contact Info) Description 04/11/2025 Travel Social History Tobacco Use Types Packs/Day [...] PM EST Office Visit [facility] OPTOMETRY [address] [place], [place] [phone] Dawson, Mulu, OD 230 [place] [address] documented as of this encounter Visit Diagnoses Not on filedocumented in this encounter Additional Health Concerns Assessment Noted Time PHQ-9 Depression Total Score: 0 02/03/20 25 2:44 PM EDT documented as of this encounter Care Teams Clarification Operator Relationship Specialty Start Date End Date Elizabeth Dunn MD [address] [place] [address] PCP - General Family Medicine 03/17/18 Kai Bowden, MATT [address] [place] [address] Registered Nurse Family Medicine 02/08/25 Manuela Melendez 02/08/25 Thao Barnhart Corporate Communications SpecialistSecurity Incident Response Specialist 02/07/23 documented as of this encounter
[2025-04-11 19:48] LABS: Alanine Aminotransferase 18 U/L (0-31); Albumin Level 4.5 g/dL (3.5-5.0); Alkaline Phosphatase 80 U/L (39-117); Anion Gap 13 (12-20); Aspartate Amino Transferase 33 U/L (5-31); Blood Urea Nitrogen 18 mg/dL (9-16); Calcium 9.0 mg/dL (8.4-10.2); Carbon Dioxide 28 mmol/L (22-29); Chloride 106 mmol/L (96-108); Cholesterol 254 mg/dL (<200); Estimated Glomerular Filt Rate 45; HDL Cholesterol 70 mg/dL (>40); Potassium 4.2 mmol/L (3.3-5.1); Sodium 143 mmol/L (135-145); Total Protein 7.5 g/dL (6.5-8.0); Triglycerides 242 mg/dL (<150)
[2025-04-13 14:41] LABS: Microalbum/Creatinine Ratio Ur 7.6 ug/mg cr (<30)
== END 2025-04-11 16:03 | disposition home or self-care (01) ==
LOC: HO.HHCL 16:02
PROVIDERS: PCP Internal Medicine; Visit Provider Internal Medicine
DX: E11.9 Type 2 diabetes mellitus without complications (principal)
CPT/HCPCS: 36415; 80053; 80061; 82043; 82570

== ENCOUNTER 2025-05-07 21:02 | Emergency (ER) | payer MEDICAID, SELFPAY ==
[2025-05-07 21:07] VITALS: BP 180/90; PULSE 71; O2SAT 95
[2025-05-07 21:11] VITALS: BP 152/80; PULSE 72; RESP 18; TEMP 36.8; O2SAT 97; BMI 37.8
[2025-05-07 21:37] LABS: MANUAL DIFF FLAG NO
[2025-05-07 21:38] LABS: Hematocrit 33.9 % (37.0-47.0); Hemoglobin 10.8 g/dl (12.0-16.0); Imm Gran Abs Auto 0.03 X10*3/uL (0.00-0.03); Imm Gran Pct Auto 0.4 % (0.0-0.4); Lymphocytes Absolute Auto 2.7 X10*3/uL (1.2-4.9); Mean Corpuscular HGB Conc 31.9 g/dl (31.0-35.0); Mean Corpuscular Hemoglobin 24.5 pg (27.0-33.0); Mean Corpuscular Volume 76.9 fL (80.0-98.0); NRBC Abs Auto 0.000 X10*3/uL (0.0-0.012); NRBC Pct Auto 0.0 /100WBC (0.0-0.2); Platelet Count 256 X10*3/uL (160-400); Red Blood Count 4.41 X10*6/uL (4.20-5.50); White Blood Count 8.1 X10*3/uL (4.8-10.8)
[2025-05-07 21:50] LABS: Anion Gap 13 (12-20); Blood Urea Nitrogen 17 mg/dL (9-16); Calcium 8.7 mg/dL (8.4-10.2); Carbon Dioxide 24 mmol/L (22-29); Chloride 107 mmol/L (96-108); Creatinine Clr Calc Pharmacy 65.5; Estimated Glomerular Filt Rate > 60; Potassium 4.4 mmol/L (3.3-5.1); Sodium 140 mmol/L (135-145)
[2025-05-07 22:03] LABS: COVID-19 Test Negative (Negative); IDNOW Serial# 55D5AD1C; IDNOW Serial# 58CA691E; Influenza B2 Negative (Negative)
[2025-05-07 23:34] VITALS: BP 147/77; PULSE 63; RESP 16; TEMP 36.9; O2SAT 97
--- NOTE | 2025-05-07 23:54 | ED.GENADULT ---
HPI - General Adult General Chief complaint: General Medical Stated complaint: flu like symptoms can't eat Time Seen by Provider: 05/07/25 23:51 Source: patient Mode of arrival: ambulatory Limitations: no limitations History of Present Illness ED Provider: Dr. Jaffe HPI narrative: 65-year-old female history of fibromyalgia, PTSD, diabetes presented hospital today for diffuse body aches. Nonspecific symptoms. Patient stated her joints are aching in her whole body is aching for the past week. She thinks she may have the flu. She has been taking ibuprofen without any alleviation therefore she presents to the ER for further evaluation. Related Data Home Medications ?Medication ?Instructions ?Recorded ?Confirmed trazodone 100 mg tablet 300 mg PO BEDTIME 01/23/24 03/13/25 venlafaxine 150 mg 300 mg PO QAM 01/23/24 03/13/25 capsule,extended release 24 hr clonazepam 0.5 mg tablet 0.5 mg PO DAILY PRN Anxiety 03/13/25 03/13/25 melatonin 5 mg tablet 10 mg PO BEDTIME PRN Insomnia 03/13/25 03/13/25 pregabalin 225 mg capsule 225 mg PO BID 03/13/25 03/13/25 Previous Rx's ?Medication ?Instructions ?Recorded clonazepam 1 mg tablet 1 mg PO BID 30 days #60 tabs 12/16/22 hydrochlorothiazide 50 mg tablet 50 mg PO DAILY #30 tabs 08/12/23 metformin 500 mg tablet,extended 500 mg PO BIDWM #60 tabs 08/12/23 release 24 hr aripiprazole 2 mg tablet 4 mg (2 x 2 mg) PO DAILY 30 days 03/18/25 #60 tabs naproxen 250 mg tablet 250 mg PO TID 5 days #15 tabs 03/18/25 acetaminophen 500 mg tablet 1,000 mg (2 x 500 mg) PO Q8H 10 03/27/25 (Tylenol Extra Strength) days #60 tabs azithromycin 250 mg tablet See Rx Instructions PO .COMPLEX #6 03/27/25 (Zithromax) tabs ibuprofen 400 mg tablet 400 mg PO Q8H PRN pain #20 tabs 03/27/25 prednisone 20 mg tablet 40 mg (2 x 20 mg) PO DAILY 7 days 03/27/25 #14 tabs methocarbamol 500 mg tablet 1,000 mg (2 x 500 mg) PO QID #20 04/04/25 tabs acetaminophen 500 mg tablet 1,000 mg (2 x 500 mg) PO Q8H #60 05/08/25 tabs ondansetron 4 mg disintegrating 4 mg PO Q8H PRN nausea and 05/08/25 tablet vomiting #14 tabs Allergies Allergy/AdvReac Type Severity Reaction Status Date / Time morphine (MORPHINE) Allergy Intermediate PALPITATIONS, Verified 05/07/25 21:14 tachicardia quetiapine (Seroquel) Allergy Intermediate Aggitation Verified 05/07/25 21:14 orphenadrine (ORPHENADRINE) AdvReac Intermediate RAPID Verified 05/07/25 21:14 HEART RATE Review of Systems Review of Systems: Pertinent review of systems as mentioned in HPI. All other system otherwise negative. [facility] Past Medical History [facility] Narrative: Medical history as mentioned in HPI Medical History Weakness Arthritis History of brain inflammation Protrusion of lumbar intervertebral disc Tinnitus Venous insufficiency Osteoarthritis Loss of hair History of headache Fibromyositis Fatigue Hyperlipidemia HTN (hypertension) Continuous opioid dependence Sinusitis Anemia Anxiety Diverticulosis Chronic idiopathic constipation Migraine Asthma Depression Diabetes 1.5, managed as type 2 Fibromyalgia Surgical History History of back surgery History of esophagogastroduodenoscopy (EGD) S/P panniculectomy Hx of hysterectomy Hx of oophorectomy Hx of bilateral breast reduction surgery H/O colonoscopy History of pubovaginal sling Gastric bypass status for obesity Family History Family History Mother Colon cancer Social History Social History Household Members: Spouse Household Members Other:: lives alone Housing: House Are you a primary health care analyst to a significant other at home: No Alcohol intake: never Comment: IV infiltrated Patient Tobacco Use Status: Never used Tobacco Advance Directives Date on File: 07/24/23 service: No Current occupational status: disabled Sexual orientation: Straight/Heterosexual Gender identity: Female Physical Exam ED Exam Exam: General: Pleasant, no distress, interacting appropriately Head: Normacephalic, atraumatic ENT: oral mucosa moist, neck supple, no tracheal deviation Cardiovascular: regular rate, regular rhythm, no murmurs, rubbing, gallops Respiratory: CTAB, no wheeze, rales, rhonchi Gastrointestinal: Soft, non distended, non tender, non guarding Extremities: No limb pain or swelling, no calf tenderness Neurological: Awake and alert, no facial droop noted Skin: Warm and dry Psychiatric: Appropriate mood and thoughts Vital Signs: Vital Signs - 24 hr 05/07/25 21:11 05/07/25 23:34 Temperature 98.3 F 98.5 F Pulse Rate 72 63 Respiratory Rate 18 16 Blood Pressure 152/80 H 147/77 H Pulse Oximetry 97 97 Oxygen Delivery Method Room Air Room Air BMI result Body Mass Index 37.8 Medical Decision Making Medical Decision Making [facility] Narrative: 65-year-old female presented hospital today for body wide aches. No sign of leukocytosis. She does have some anemia at 10.8. This is around her baseline. Patient's chemistries unremarkable. Flu COVID RSV swab is negative. We will plan to discharge patient at this time encouraged conservative treatment. Follow up with the primary care doctor for her body aches. Patient is hemodynamically stable. Differential Diagnosis Differential Diagnoses: The differential diagnosis associated with the presentation includes Body aches, flu, viral syndrome Lab Data [facility] Lab Attestation statement: I reviewed the patient's lab results. 05/07/25 21:32 05/07/25 21:32 Labs: Lab Results 05/07/25 Range/Units 21:32 WBC 8.1 (4.8-10.8) X10*3/uL RBC 4.41 (4.20-5.50) X10*6/uL Hgb 10.8 L (12.0-16.0) g/dl Hct 33.9 L (37.0-47.0) % MCV 76.9 L (80.0-98.0) fL MCH 24.5 L (27.0-33.0) pg MCHC 31.9 (31.0-35.0) g/dl RDW 18.6 H (11.0-16.0) % Plt Count 256 (160-400) X10*3/uL MPV 10.4 (9.4-12.3) fL Immature Gran % (Auto) 0.4 (0.0-0.4) % Neut % (Auto) 56.0 (45-73) % Lymph % (Auto) 34.0 (20-40) % Crawford % (Auto) 6.7 (2-11) % Eos % (Auto) 2.5 (0-4) % Baso % (Auto) 0.4 (0-2) % Lymph # (Auto) 2.7 (1.2-4.9) X10*3/uL Crawford # (Auto) 0.5 (0.1-1.2) X10*3/uL Eos # (Auto) 0.2 (0.0-0.4) X10*3/uL Baso # (Auto) 0.0 (0.0-0.2) X10*3/uL Abs Immat Gran (auto) 0.03 (0.00-0.03) X10*3/uL Absolute Neuts (auto) 4.5 (2.0-8.3) x10*3/uL Absolute Nucleated RBC 0.000 (0.0-0.012) X10*3/uL Nucleated RBC % (auto) 0.0 (0.0-0.2) /100WBC Sodium 140 (135-145) mmol/L Potassium 4.4 (3.3-5.1) mmol/L Chloride 107 (96-108) mmol/L Carbon Dioxide 24 (22-29) mmol/L Anion Gap 13 (12-20) BUN 17 H (9-16) mg/dL Creatinine 0.90 (0.5-1.4) mg/dL Estim Creat Clear Calc 65.5 Estimated GFR > 60 Random Glucose 73 (60-115) mg/dL Calcium 8.7 (8.4-10.2) mg/dL COVID-19 (IGOR) Negative (Negative) COVID-19 Clin Com See Note Influenza Type A (OSITO) Negative (Negative) Influenza Type B (OSITO) Negative (Negative) Influenza A & B Note See Note Discharge Plan Discharge Clinical Impression: Body aches Patient Disposition: Home, Self-Care Additional Instructions: Follow with primary care doctor in a week for your bodyaches. Prescriptions: New acetaminophen 500 mg tablet 1,000 mg PO Q8H Qty: 60 0RF ondansetron 4 mg tablet,disintegrating 4 mg PO Q8H PRN (Reason: nausea and vomiting) Qty: 14 0RF No Action clonazepam 1 mg tablet 1 mg PO BID 30 Days Qty: 60 0RF hydrochlorothiazide 50 mg tablet 50 mg PO DAILY Qty: 30 0RF metformin 500 mg Tablet Extended Release 24 Hr 500 mg PO BIDWM Qty: 60 0RF clonazepam 0.5 mg Tablet 0.5 mg PO DAILY PRN (Reason: Anxiety) pregabalin 225 mg capsule 225 mg PO BID melatonin 5 mg tablet 10 mg PO BEDTIME PRN (Reason: Insomnia) aripiprazole 2 mg tablet 4 mg PO DAILY 30 Days Qty: 60 0RF naproxen 250 mg Tablet 250 mg PO TID 5 Days Qty: 15 0RF prednisone 20 mg tablet 40 mg PO DAILY 7 Days Qty: 14 0RF azithromycin [Zithromax] 250 mg tablet See Rx Instructions .ROUTE .COMPLEX Qty: 6 0RF Rx Instructions: For 250 mg dose pack: take 500 mg today (day 1), then 250 mg for 4 days (days 2-5) acetaminophen [Tylenol Extra Strength] 500 mg tablet 1,000 mg PO Q8H 10 Days Qty: 60 0RF ibuprofen 400 mg tablet 400 mg PO Q8H PRN (Reason: pain) Qty: 20 0RF methocarbamol 500 mg tablet 1,000 mg PO QID Qty: 20 0RF venlafaxine 150 mg capsule,extended release 24hr 300 mg PO QAM trazodone 100 mg tablet 300 mg PO BEDTIME Print Language: Italian
--- OUTSIDE RECORDS SUMMARY | 2025-05-08 00:07 | XMS_ITS | Encounter Summary ---
Author Organization [employer] Address 75 [facility] 7t [place] [address] Care Team Providers Care Jigman Name Role Phone Elizabeth Dunn MD Primary Care Provide r Kai Bowden RN Unavailable [phone] Manuela Melendez Unavailable Reason for Visit * Reason Comments Med Refill Encounter Details Date Type Department Care Team ([facility] st Contact Info) Description 05/04/2025 Refill [facility] MEDICINE [address] [place] [address] Elizabeth Dunn MD [address] [place] [address] Microcytic anemia Social History Tobacco Use Types Packs/Day Years Used Date Smoking Tobacco: Never Passive Smoke Exposure: Never Smokeless Tobacco: Never Alcohol Use Standard Drinks/Week Comments Never 0 (1 standard drink = 0.6 oz pur e alcohol) Depression Answer Date Recorded Patient Health Questionnaire-9 Score 7 04/12/2025 Patient Health Questionnaire-9 Score 7 04/12/2025 Last PHQ-9: Questionnaire Data Not on file 1 06/13/2024 Housing Stability Answer Date Recorded What is your housing situation today? I have katia declan 02/02/[address] you li ve. Do you have problems with any of the following? None of the above 02/02/2025 Food Insecurity Answer Date Recorded Within the past 12 months, y ou worried that your food would run out before you got money to buy more: Often true 04/28/2025 Within the past 12 months,th e food you bought just didn't last and you didn't have enough money to get more: Often true Transportation Answer Date Recorded In the past 12 months, has l ack of transportation kept you from medical appts, meetings, work or from getting things needed for daily living? Yes, it has kept me from medical appointments or getting medications. 04/28/2025 Intimate Partner Violence Answer Date R ecorded Within the last year, have y ou been afraid of your partner or ex-partner? 2 04/12/2025 Within the last year, have y ou been humiliated or emotionally abused in other ways by your partner or ex-partner? 2 Within the last year, have y ou been kicked, hit, slapped, or otherwise physically hurt by your partner or ex-partner? 2 04/12/2025 Within the last year, have y ou been raped or forced to have any kind of sexual activity by your partner or ex-partner? 2 04/12/2025 Utilities Answer Date Recorded In the past 12 months, has t he [employer], gas, oil or water company threatened to shut off services in your home? No 02/02/2025 Depression Answer Date Recorded Patient Health Questionnaire-2 Score 2 04/12/2025 Internet Access Answer Date Recorded Internet Access Q1 Yes 04/28/2025 Internet Access Q2 I cannot afford it 04/28/2025 Comments Unknown Sex and Gender Information Value [...] 2:30 PM EST Office Visit [facility] OPTOMETRY [address] [place] [address] Mulu Osman, OD 230 [facility] [place] [address] documented as of this encounter Visit Diagnoses Diagnosis Microcytic anemia Unspecified iron deficiency anemia documented in this encounter Additional Health Concerns Assessment Noted Time PHQ-9 Depression Total Score: 7 04/12/20 25 10:40 AM EST documented as of this encounter Care Teams Jigman Relationship Specialty Start Date End Date Elizabeth Dunn MD [address] [place] [address] PCP - General Family Medicine 03/17/18 Kai Bowden, MATT [address] [place] [address] Registered Nurse Family Medicine 02/08/25 Manuela Melendez 02/08/25 Thao Barnhart Putter InConsulting Project Director 02/07/23 documented as of this encounter
--- OUTSIDE RECORDS SUMMARY | 2025-05-08 00:07 | XMS_ITS ---
Author Organization [employer] Address 75 [facility] 7t [place] [address] Care Team Providers Care Change Management Director Name Role Phone Elizabeth Dunn MD Primary Care Provide r Kai Bowden RN Unavailable [phone] Manuela Melendez Unavailable CHW Complex Status:Enrolled (Active) Start date:02/08/2025 Enrollment date:04/28/2025 Enrollment reason:ADT Feed Overview ED- Pt went to [facility] ED on 02/07/25. Case Team Name Relationship Phone Manuela Melendez(Responsible Staff) [phone] Continued Care and Services Coordination
--- OUTSIDE RECORDS SUMMARY | 2025-05-08 00:07 | XMS_ITS | Clinical Summary ---
Author Organization [facility] Address [address] [place] [address] Phone Care Team Providers Care Account Review Specialist Name Role Phone Elizabeth Dunn MD [...] topic Insurance MEDICAID - [place] Care Teams Account Review Specialist Relationship Specialty Start Date End Date Elizabeth Dunn MD [address] [phone] PCP - General Internal Medicine 02/12/24
--- OUTSIDE RECORDS SUMMARY | 2025-05-08 00:07 | XMS_ITS | Encounter Summary ---
Author Organization [employer] Address [address] [place] [address] 7t [place] [address] Care Team Providers Care Low Pressure Boiler Operator Name Role Phone Elizabeth Dunn MD Primary Care Provide r Kai Bowden RN Unavailable [phone] Manuela Melendez Unavailable Encounter Details Date Type Department Care Team (Late st Contact Info) Description 05/17/2022 Abstract [facility] MEDICINE [address] [place] [address] Linda Romero, PharmD [address] [place] [address] Social History Tobacco Use Types Packs/Day Years [...] [facility] OPTOMETRY [address] [place], [place] [phone] Mulu Osman, OD [address] [place] [address] documented as of this encounter Visit Diagnoses Not on filedocumented in this encounter Care Teams Low Pressure Boiler Operator Relationship Specialty Start Date End Date Elizabeth Dunn MD [address] [place] [address] PCP - General Family Medicine 03/17/18 Kai Bowden, RN [address] [place] [address] Registered Nurse Family Medicine 02/08/25 Manuela Melendez 02/08/25 Thao Barnhart Implementation AdvisorHandhole Machine Operator 02/07/23 documented as of this encounter
--- OUTSIDE RECORDS SUMMARY | 2025-05-08 00:07 | XMS_ITS | Clinical Summary ---
Author Organization [facility], Address [address] [place] [address] Phone Care Team Providers Care Real Estate Broker Associate Name Role Phone Elizabeth Dunn MD [...] Calculated 126 0 - 160 mg/dL 05/31/2020 [facility] Provider LAB BLOOD ORDERABLES Sandy l Result from Last 3 Months or Most Recently Relevant to Health Maintenance [place] Sub[place] Plan / Payer (Ef fective 2020-Present) Name:Jose Antonio Rivasda Relation to Subscriber:Self Name:Lelo Rivas Payer ID:Not on file Group ID:Not on file Type:Not on file Address: [address] [place] Care Teams Real Estate Broker Associate Relationship Specialty Start Date End Date Elizabeth Dunn MD [address] [place] [phone] PCP - General Internal Medicine 11/17/20
--- OUTSIDE RECORDS SUMMARY | 2025-05-08 00:07 | XMS_ITS | Encounter Summary ---
Author Organization [employer] Address 75 [facility] 7t h Floor [place] [id number] Care Team Providers Care Ignition Mechanic Name Role Phone Elizabeth Dunn MD Primary Care Provide r Kai Bowden RN Unavailable [phone] Manuela Melendez Unavailable Encounter Details Date Type Department Care Team (Late st Contact Info) Description 03/26/2024 Orders Only [facility] MEDICINE [address] [place] [address] Elizabeth Dunn MD [address] [place] [address] Social History Tobacco Use Types Packs/Day Years [...] Visit [facility] OPTOMETRY [address] [place], [place] [phone] Mulu Osman, OD [address] [place] [address] documented as of this encounter Visit Diagnoses Not on filedocumented in this encounter Additional Health Concerns Assessment Noted Time PHQ-9 Depression Total Score: 0 08/20/19 24 2:32 PM EDT documented as of this encounter Care Teams Ignition Mechanic Relationship Specialty Start Date End Date Elizabeth Dunn MD [address] [place] [address] PCP - General Family Medicine 03/17/18 Kai Bowden, MATT [address] [place] [address] Registered Nurse Family Medicine 02/08/25 Manuela Melendez 02/08/25 Thao Barnhart Scale ShooterSales Floor Associate 02/07/23 documented as of this encounter
--- OUTSIDE RECORDS SUMMARY | 2025-05-08 00:07 | XMS_ITS | Encounter Summary ---
Author Organization [employer] Address [address] [facility] 7t [place] [address] Care Team Providers Care Hydraulic Rock Drill Operator Name Role Phone Elizabeth Dunn MD Primary Care Provide r Kai Bowden RN Unavailable [phone] Manuela Melendez Unavailable Reason for Visit * Reason Onset Date Comments Nurse Triage 11/26/2023 Encounter Details Date Type Department Care Team ([facility] st Contact Info) Description 11/26/2023 Telephone [facility] MEDICINE [address] [place] [address] Elizabeth Dunn MD [address] [place], [place] [phone] Nurse Triage Social History Tobacco Use Types [...] to PT. Per pt has not called physician office specialist to notify of increased pain with [...] Description 06/07/2025 2:30 PM EST Office Visit [facility] OPTOMETRY [address], [place] [phone] Dawson, Mulu, OD [address] [place] [address] documented as of this encounter Visit Diagnoses Not on filedocumented in this encounter Additional Health Concerns Assessment Noted Time PHQ-9 Depression Total Score: 0 08/20/19 24 2:32 PM EDT documented as of this encounter Care Teams Hydraulic Rock Drill Operator Relationship Specialty Start Date End Date Elizabeth Dunn MD [address] [place] [address] PCP - General Family Medicine 03/17/18 Kai Bowden, MATT [address] [place] [address] Registered Nurse Family Medicine 02/08/25 Manuela Melendez 02/08/25 Thao Barnhart Knitting Machine Operator AutomaticDirect Service Professional 02/07/23 documented as of this encounter
--- OUTSIDE RECORDS SUMMARY | 2025-05-08 00:07 | XMS_ITS | Encounter Summary ---
Author Organization [employer] Address [address] [facility] 7t h Floor [place] [id number] Care Team Providers Care Rn Diabetes Name Role Phone Elizabeth Dunn MD Primary Care Provide r Kai Bowden RN Unavailable [phone] Manuela Melendez Unavailable Encounter Details Date Type Department Care Team (Late st Contact Info) Description 01/12/2025 Orders Only [facility] MEDICINE [address] [place] [address] Elizabeth Dunn MD [address] [place] [address] Social History Tobacco Use Types Packs/Day Years [...] Description 06/07/2025 2:30 PM EST Office Visit [facility] OPTOMETRY [address] [place], [place] [phone] Mulu Osman, OD [address] [place] [address] documented as of this encounter Visit Diagnoses Not on filedocumented in this encounter Additional Health Concerns Assessment Noted Time PHQ-9 Depression Total Score: 0 08/20/19 24 2:32 PM EDT documented as of this encounter Care Teams Rn Diabetes Relationship Specialty Start Date End Date Elizabeth Dunn MD [address] [place] [address] PCP - General Family Medicine 03/17/18 Kai Bowden, MATT [address] [place] [address] Registered Nurse Family Medicine 02/08/25 Manuela Melendez 02/08/25 Thao Barnhart Cellular Equipment InstallerReliability Manager 02/07/23 documented as of this encounter
--- OUTSIDE RECORDS SUMMARY | 2025-05-08 00:07 | XMS_ITS | Encounter Summary ---
Author Organization [employer] Address [address] [facility] 7t [place] [address] Care Team Providers Care Spray Drier Operator Helper Name Role Phone Elizabeth Dunn MD Primary Care Provide r Kai Bowden RN Unavailable [phone] Manuela Melendez Unavailable Reason for Visit * Reason Comments Med Refill Encounter Details Date Type Department Care Team ([facility] st Contact Info) Description 12/15/2024 Refill [facility] MEDICINE [address] [place] [address] Elizabeth Dunn MD [address] [place] [address] Social History Tobacco Use Types Packs/Day Years [...] Description 06/07/2025 2:30 PM EST Office Visit [facility] OPTOMETRY [address] [place], [place] [phone] Mulu Osman, OD [address] [place] [address] documented as of this encounter Visit Diagnoses Not on filedocumented in this encounter Additional Health Concerns Assessment Noted Time PHQ-9 Depression Total Score: 0 08/20/19 24 2:32 PM EDT documented as of this encounter Care Teams Spray Drier Operator Helper Relationship Specialty Start Date End Date Elizabeth Dunn MD [address] [place] [address] PCP - General Family Medicine 03/17/18 Kai Bowden, MATT [address] [place] [address] Registered Nurse Family Medicine 02/08/25 Manuela Melendez 02/08/25 Thao Barnhart Title Vehicle Service AttendantUltrasound Spec 02/07/23 documented as of this encounter
--- OUTSIDE RECORDS SUMMARY | 2025-05-08 00:07 | XMS_ITS | Encounter Summary ---
Author Organization [employer] Address [address] [place] [address] 7t [place] [address] Care Team Providers Care Marina Porter Name Role Phone Elizabeth Dunn MD Primary Care Provide r Kai Bowden RN Unavailable [phone] Manuela Melendez Unavailable Encounter Details Date Type Department Care Team (Late Contact Info) Description 01/29/2023 Orders Only [facility] MEDICINE [address] [place] [address] Provider, MD Hector Social History Tobacco Use [...] Office Visit [facility] OPTOMETRY [address] [place], [place] [phone] Mulu Osman, OD [address] [place] [address] documented as of this encounter Procedures Procedure [...] documented as of this encounter Care Teams Marina Porter Relationship Specialty Start Date End Date Elizabeth Dunn MD [address] [place] [address] PCP - General Family Medicine 03/17/18 Kai Bowden, MATT [address] [place] [address] Registered Nurse Family Medicine 02/08/25 Manuela Melendez 02/08/25 Thao Barnhart Career Technical SupervisorColor Maker 02/07/23 documented as of this encounter
--- OUTSIDE RECORDS SUMMARY | 2025-05-08 00:07 | XMS_ITS | Encounter Summary ---
Author Organization [employer] Address [address] [facility] 7t h Floor [place] [phone] Care Team Providers Care Drop Hammer Operator Helper Name Role Phone Elizabeth Dunn MD Primary Care Provide r Kai Bowden RN Unavailable [phone] Manuela Melendez Unavailable Reason for Visit * Reason Onset Date Comments Med Refill 06/21/2024 Encounter Details Date Type Department Care Team ([facility] st Contact Info) Description 06/21/2024 Telephone [facility] MEDICINE [address] [place] [address] Elizabeth Dunn MD [address] [place], [place] [phone] Med Refill Social History Tobacco Use Types [...] sent to: [facility]/pharmacy #[id number] documented in this encounter Plan of Treatment Upcoming Encounters Date Type Department Care Team (Late st Contact Info) Description 06/07/2025 2:30 PM EST Office Visit [facility] OPTOMETRY [address] [place] [address] Mulu Osman, OD [address] [place] [address] documented as of this encounter Visit Diagnoses Not on filedocumented in this encounter Additional Health Concerns Assessment Noted Time PHQ-9 Depression Total Score: 0 08/20/19 24 2:32 PM EDT documented as of this encounter Care Teams Drop Hammer Operator Helper Relationship Specialty Start Date End Date Elizabeth Dunn MD [address] [place] [address] PCP - General Family Medicine 03/17/18 Kai Bowden, MATT [address] [place] [address] Registered Nurse Family Medicine 02/08/25 Manuela Melendez 02/08/25 Thao Barnhart Software Quality AnalystSourcing Intern 02/07/23 documented as of this encounter
--- OUTSIDE RECORDS SUMMARY | 2025-05-08 00:07 | XMS_ITS | Encounter Summary ---
Author Organization [employer] Address [address] [facility] 7t [place] [address] Care Team Providers Care Microfilm Mounter Name Role Phone Elizabeth Dunn MD Primary Care Provide r Kai Bowden RN Unavailable [phone] Manuela Melendez Unavailable Encounter Details Date Type Department Care Team (Late st Contact Info) Description 03/09/2025 Orders Only [facility] MEDICINE [address] [place] [address] Elizabeth Dunn MD [address] [place] [address] Acute right ankle pain; Right foot pain [...] Description 06/07/2025 2:30 PM EST Office Visit [facility] OPTOMETRY [address] [place] [address] Dawson, Mulu, OD [address] [place] [address] documented as of this encounter Visit Diagnoses Diagnosis Acute right ankle pain Right foot pain Pain in soft tissues of limb documented in this encounter Additional Health Concerns Assessment Noted Time PHQ-9 Depression Total Score: 0 02/03/20 25 2:44 PM EDT documented as of this encounter Care Teams Microfilm Mounter Relationship Specialty Start Date End Date Elizabeth Dunn MD [address] [place] [address] PCP - General Family Medicine 03/17/18 Kai Bowden, RN [address] [place] [address] Registered Nurse Family Medicine 02/08/25 Manuela Melendez 02/08/25 Thao Barnhart Relations ManagerFront Worker 02/07/23 documented as of this encounter
--- OUTSIDE RECORDS SUMMARY | 2025-05-08 00:07 | XMS_ITS ---
Author Organization [employer] Address [address] [facility] 7t [place] [address] Care Team Providers Care Political Researcher Name Role Phone Elizabeth Dunn MD Primary Care Provide r Kai Bowden RN Unavailable [phone] Manuela Melendez Unavailable CM Complex Status:Enrolled (Active) Start date:02/08/2025 Enrollment date:04/12/2025 Enrollment reason:ADT Feed Overview ED- Pt went to [facility] ED on 02/07/25. Case Team Name Relationship Phone Kai Bowden RN(Responsible Staff) Registered [facility] [phone] Continued Care and Services Coordination
--- OUTSIDE RECORDS SUMMARY | 2025-05-08 00:08 | XMS_ITS | Encounter Summary ---
Author Organization [employer] Address [address] [facility] 7t h Floor [place] [phone] Care Team Providers Care Industrial Commercial Groundskeeper Name Role Phone Elizabeth Dunn MD Primary Care Provide r Kai Bowden RN Unavailable [phone] Manuela Melendez Unavailable Reason for Visit * Reason Onset Date Comments Hospital Follow-up 03/22/2025 Encounter Details Date Type Department Care Team ([facility] Contact Info) Description 03/22/2025 Telephone [facility] MEDICINE [address] [place] [address] Elizabeth Dunn MD [address] [place], [place] [phone] Hospital Follow-up Social History Tobacco Use Types [...] from pt requesting a HDF appt. Hospital: [facility] Date of admission: 03/14 Discharge date: 03/19 Diagnosed: depression *Send message to [facility] Clinical Care Coordinators documented in this encounter Plan of Treatment Upcoming Encounters Date Type Department Care Team (Late st Contact Info) Description 06/07/2025 2:30 PM EST Office Visit [facility] OPTOMETRY [address] [place] [address] Dawson, Mulu, OD 230 [facility] [place] [address] documented as of this encounter Visit Diagnoses Not on filedocumented in this encounter Additional Health Concerns Assessment Noted Time PHQ-9 Depression Total Score: 0 02/03/20 25 2:44 PM EDT documented as of this encounter Care Teams Industrial Commercial Groundskeeper Relationship Specialty Start Date End Date Elizabeth Dunn MD [address] [place] [address] PCP - General Family Medicine 03/17/18 Kai Bowden, MATT [address] [place] [address] Registered Nurse Family Medicine 02/08/25 Manuela Melendez 02/08/25 Thao Barnhart Laborer Pie BakeryServicing Manager 02/07/23 documented as of this encounter
--- OUTSIDE RECORDS SUMMARY | 2025-05-08 00:08 | XMS_ITS | Clinical Summary ---
Author Organization [employer] Address [address] [place] [address] Care Team Providers Care Deliverer Merchandise Name Role Phone Elizabeth Dunn MD Primary Care Provide r Kai Bowden RN Unavailable [phone] Manuela Melendez Unavailable Allergies Active Allergy [...] BY MD. 30 patch 1 025 Active ARIPiprazole (Abilify) 2 MG tablet Take 2 tablets by mouth Once per day. 025 Active naloxone (Narcan) 4 mg/0.1 mL nasal spray PLEASE SEE ATTACHED FOR DETAILED DIRECTIONS 025 Active traZODone (Desyrel) 100 MG tablet take 3 tablets by mouth every day at bedtime 025 Active Diclofenac Sodium 1 % gelIndications:Fi bromyalgia Apply on affected area twice a day 350 g 3 025 Active Tirzepatide (Mounjaro) 10 MG/0.5ML solution auto-injectorIndi cations:Type 2 diabetes mellitus without complication, without long-term current use of insulin ([facility]) Inject 10 mg under the skin 1 (one) time per week. 2 mL 025 Active Additional Information Patient not taking.Reported on 04/12/2025 FREESTYLE LITE test stripIndications: Type 2 diabetes mellitus without complication, without long-term current use of insulin ([facility]) Use to test blood sugar 1 times daily 100 each 12 025 2025 Active Lancets miscIndications:T ype 2 diabetes mellitus without complication, without long-term current use of insulin ([facility]) Use to test blood sugar 1 times daily 100 each 1 025 Active Alcohol Swabs 70 % padsIndications:T ype 2 diabetes mellitus without complication, without long-term current use of insulin ([facility]) Use to test blood sugar 1 times daily 100 each 1 025 Active Blood Glucose Monitoring Suppl (FreeStyle Lite) w/Device kitIndications:Ty pe 2 diabetes mellitus without complication, without long-term current use of insulin ([facility]) USE TO TEST BLOOD SUGAR 1 TIMES DAILY 1 kit 025 Active Tirzepatide (Mounjaro) 12.5 MG/0.5ML solution auto-injectorIndi cations:Type 2 diabetes mellitus without complication, without long-term current use of insulin ([facility]) Inject 12.5 mg under the skin 1 (one) time per week. 2 mL 2 025 Active Additional Information Patient not taking.Reported on 04/12/2025 colchicine 0.6 MG tabletIndications :Acute right ankle pain,Right foot pain First day 1.2 mg at the first sign of flare followed by 0.6 mg after 1 hour second day and thereafter: 0.6 mg twice daily until flare resolves 60 tablet 1 025 Active Tirzepatide (Mounjaro) 15 MG/0.5ML solution auto-injectorIndi cations:Type 2 diabetes mellitus without complication, without long-term current use of insulin ([facility]) Inject 15 mg under the skin 1 [...] day. 30 tablet 11 025 2025 Active ferrous sulfate 325 (65 Fe) MG EC tabletIndications :Microcytic anemia TAKE 1 TABLET BY MOUTH EVERY DAY. DO NOT CRUSH, CHEW OR SPLIT. 90 tablet Active hydroCHLOROthiazi de (HYDRODiuril) 50 MG tabletIndications :Primary hypertension TAKE 1 TABLET BY MOUTH EVERY MORNING 90 tablet 3 025 2024 Discontinued ferrous sulfate 325 (65 Fe) MG EC tabletIndications :Microcytic anemia TAKE 1 TABLET BY MOUTH EVERY DAY. DO NOT CRUSH, CHEW OR SPLIT. 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] Diagnosed Date Resolved Date Continuous opioid dependence ([facility]/HCC) 04/08/2017 02/02/2025 Encounters Date Type Department Care Team Description 05/04/[address] [address] Elizabeth Dunn MD Microcytic anemia 04/28/2025 Patient Outreach [address] [address] Elizabeth Dunn MD Care Coordination ([facility]/W Tonie Landrum assessment / Enrolled CM program ) 04/13/2025 Plan of Care Documentation [address] [address] 04/13/2025 Plan of Care Documentation [address] [address] 04/12/2025 Patient Outreach [facility] [address] [place] [address] Elizabeth Dunn MD Care Management ([facility]- Initial assessment/enrollment ) 04/11/2025 3:15 PM EST Office Visit [address] [address] Elizabeth Dunn MD UTI symptoms (Primary Dx); Type 2 diabetes mellitus without complication, without long-term current use of insulin (HCC); Hypokalemia; Fibromyalgia; Primary hypertension; Encounter for immunization 04/11/2025 Travel 04/11/2025 Patient Outreach [address] [address] Elizabeth Dunn MD Care Coordination ([facility]/CHW Jarely Al, appointment reminder ) 04/05/2025 10:00 AM EST Telemedicine [address] [address] Jennifer Emerson RN Fibromyositis 04/05/2025 Patient Outreach [address] [address] Elizabeth Dunn MD Care Coordination ([facility] Manuela Melendez, rescheduled initial assessment ) 04/05/2025 Travel 04/05/2025 Patient Outreach [facility] [address] [place] [address] Elizabeth Dunn MD Care Management ([facility]- Initial assessment/enrollment ) 04/05/[address] [address] Elizabeth Dunn MD ER Follow-up; Error (VOID this visit) 04/05/2025 Patient Outreach [address] [address] Elizabeth Dunn MD Care Coordination ([facility]/Juan Jose Melendez, appointment reminder ) 04/04/2025 Orders Only GENERIC EXTERNAL DATA DEPARTMENT Provider, Generic External Data 04/01/[address] [address] Elizabeth Dunn MD chart prep 03/31/[address] [address] Elizabeth Dunn MD Chronic bilateral low back pain with left-sided sciatica 03/30/2025 Patient Outreach [address] [address] Elizabeth Dunn MD Care Coordination ([facility]/JB Melendez, RS initial assessment ) 03/30/2025 Patient Outreach [address] [address] Elizabeth Dunn MD 03/28/2025 3:30 PM EST Telemedicine [address] [address] Nora Martinez RN Chest wall pain 03/28/2025 Travel 03/27/2025 Orders Only GENERIC EXTERNAL DATA DEPARTMENT Provider, Generic External Data 03/26/2025 Orders Only GENERIC EXTERNAL DATA DEPARTMENT Provider, Generic External Data 03/22/2025 2:30 PM EST Telemedicine [address] [address] Elizabeth Dunn MD Lower extremity pain, left (Primary Dx); Type 2 diabetes mellitus without complication, without long-term current use of insulin (HCC); Schizoaffective disorder, unspecified type (HCC) 03/22/2025 Travel 03/22/2025 Patient Outreach [address] [address] Elizabeth Dunn MD Transition Of Care (Tcm) (HDF - scheduled) 03/22/[address] [address] Elizabeth Dunn MD Hospital Follow-up 03/21/[address] [address] Elizabeth Dunn MD Chart Prep 03/15/2025 Patient Outreach [facility] [address] [place], [place] [phone] Elizabeth Dunn MD Care Management ([facility]- Initial assessment/enrollment /LVM) 03/13/2025 Orders Only GENERIC EXTERNAL DATA DEPARTMENT Provider, Generic External Data 03/09/2025 Orders Only [address] [address] Elizabeth Dunn MD Acute right ankle pain; Right foot pain 03/09/[address] [address] Elizabeth Dunn MD Nurse Triage 03/08/2025 Patient Outreach [address] [address] Elizabeth Dunn MD Care Coordination ([facility]/CHW Manuela Melendez, rescheduled initial assessment ) 03/07/2025 Patient Outreach [facility] [address] [place] [address] Elizabeth Dunn MD chest pain 03/07/2025 Patient Outreach [facility] [address] [place] [address] Elizabeth Dunn MD 03/04/2025 Orders Only GENERIC EXTERNAL DATA DEPARTMENT Provider, Generic External Data 03/01/2025 Orders Only [facility] [address] [place] [address] Elizabeth Dunn MD Acute right ankle pain; Right foot pain 03/01/[address] [address] Elizabeth Dunn MD Acute right ankle pain; Right foot pain 03/01/2025 Orders Only [facility] [address] [place] [address] Elizabeth Dunn MD Right foot pain (Primary Dx); Acute right ankle pain 03/01/2025 Patient Outreach [facility] [address] [place] [address] Elizabeth Dunn MD Care Management ([facility]- Initial assessment/enrollment /LVM) 03/01/2025 Telephone [facility] [address] [place] [address] Elizabeth Dunn MD 02/28/2025 2:00 PM EDT Office Visit [facility] [address] [place] [address] Elizabeth Dunn MD Acute right ankle pain; Right foot pain 02/28/2025 Travel 02/28/2025 Telephone [facility] [address] [place] [address] Elizabeth Dunn MD Nurse Triage 02/23/[address] [address] Elizabeth Dunn MD ER Follow-up 02/22/2025 Orders Only GENERIC EXTERNAL DATA DEPARTMENT Provider, Generic External Data 02/21/2025 Results Follow-Up [address] [address] Elizabeth Dunn MD Uric acid 02/15/2025 Orders Only [address] [address] Elizabeth Dunn MD 2025 3:15 PM EDT Office Visit [address] [address] Elizabeth Dunn MD Polyarthralgia (Primary Dx); Right foot pain; Left foot pain; Type 2 diabetes mellitus without complication, without long-term current use of insulin (HCC); Fibromyalgia 2025 Travel 02/11/2025 Orders Only [facility] External Provider, [facility] 02/08/[address] [address] Elizabeth Dunn MD ER Follow-up 02/08/2025 Patient Outreach [address] [address] Elizabeth Dunn MD Care Coordination ([facility]/Juan Jose Melendez, initial assessment scheduled ) 02/08/2025 Patient Outreach [address] [address] Elizabeth Dunn MD Care Coordination ([facility]/JB Melendez, Chart review ) 02/08/2025 Patient Outreach [facility] [address] [place], [place] [phone] Elizabeth Dunn MD Care Coordination (C3- chart review) 02/08/2025 Patient Outreach [address] [address] Elizabeth Dunn MD 02/07/2025 Orders Only GENERIC EXTERNAL DATA DEPARTMENT Provider, Generic External Data from Last 3 Months Immunizations Immunization Administration [...] Description 06/07/2025 2:30 PM EST Office Visit [facility] [address] [place] [address] Mulu Osman, OD [address] [place] [address] Health Maintenance Due Date Last Done Comments CT Colonography 1962 FIT DNA/Cologuard 1962 FIT 1962 FOBT 1962 Sigmoidoscopy 1962 Eye Exam 02/15/1972 Pap Smear 1983 HPV/Cotest 02/15/1992 RSV Patients and Patients Aged 60 years or older (1 - Risk 50-74 years 1-dose series) 02/15/2012 COVID-19 Vaccine ( season) 2025 04/07/2024, 08/02/2022, 12/07/2021, Additional history exists Diabetes: Hemoglobin A1C 07/26/2025 025, 07/15/2024, 04/07/2024, Additional history exists Colonoscopy 12/10/2025 12/10/2022, 01/05/2021 Colorectal Cancer Screening 12/10/2025 Alcohol/Substance Use Screening 02/02/2026 02/02/2025 Diabetes: Foot Exam 2026 2025, Mammogram 02/15/2026 02/15/2025, 1005/2023, 02/10/2024, Additional history exists Disability Screening 03/22/2026 03/22/2025 Diabetes: Urine Protein Screening 04/11/2026 04/11/2025, 01/05/2024, 01/05/2024, Additional history exists Lipid Panel 04/11/2026 04/11/2025, 0810/2023, 05/31/2020 Tobacco Screening 04/11/2026 04/11/2025 Depression Screening 04/12/2026 04/12/2025, 04/12/20 25 SDOH Screening 04/28/2026 04/28/2025 DTaP/Tdap/Td Vaccines (3 - Td or Tdap) [...] Procedure Name Priority Date/Time Associated Diagnosis Comments COMPREHENSIVE METABOLIC PANEL Routine 04/11/2025 4:11 PM EST Type 2 diabetes mellitus without complication, without long-term current use of insulin (HCC) LIPID PANEL, STANDARD Routine 04/11/2025 4:11 PM EST Type 2 diabetes mellitus without complication, without long-term current use of insulin (HCC) POCT GLUCOSE (CPT-92435) Routine 04/11/2025 3:23 PM EST Type 2 diabetes mellitus without complication, without long-term current use of insulin (HCC) ALBUMIN, RANDOM URINE W/CREATININE Routine 04/11/2025 12:03 PM EST Type 2 diabetes mellitus without complication, without long-term current use of insulin (HCC) CREATINE KINASE, TOTAL Routine 5:13 AM EST COMPREHENSIVE METABOLIC PANEL Routine [...] EDT XR FOOT 3+ VIEWS RIGHT Routine 1:[address] ABDOMEN PELVIS W [...] PANEL Routine 02/07/2025 8:52 PM EDT POCT GLYCATED HEMOGLOBIN, TOTAL Routine 01/26/2025 3:42 PM EDT Type 2 diabetes mellitus without complication, without long-term current use of insulin ([facility]) HM COLONOSCOPY Routine 12/10/2022 ZZZ HISTORICAL HEPATITIS C AB W/REFL TO HCV RNA, QN, PCR Routine 10/23/2020 10:08 AM EDT HIV 1/2 ANTIGEN/ANTIBODY, FOURTH GENERATION W/RFL Routine 10/23/2020 10:08 AM EDT from Last 3 Months or Most Recently Relevant to Health Maintenance Results * (ABNORMAL) Lipid Panel, Standard (04/11/2025 4:11 PM EST) Triglycerides 242(H) <150 mg/dL [facility] Comment:Desirable Triglyceri de: less than 150 mg/dLBorderline High Triglyceride 150-199 mg/dLHigh Triglyceride: 200-499 mg/dLVery High Triglyceride: greater than or equal to 5OO mg/dL Cholesterol 254(H) <200 mg/dL [facility] Comment:Desirable Cholestero l: less than 200 mg/dLBorderline High Cholesterol: 200-239 mg/dLHigh Cholesterol: greater than 239 mg/dL LDL Cholesterol Calculated 136(H) <100 mg/dL [facility] Comment:Desirable LDL: less than 100 mg/dLNear Optimal/Above Optimal LDL: 110- 129 mg/dLBorderline High LDL: 130-159 mg/dLHigh LDL: 160-189 mg/dLVery High LDL: greater than or equal to 190 mg/dL HDL Cholesterol 70 >40 mg/dL [facility] Comment:Desirable HDL: great er than 40 mg/dL Note: This HDL assay may give artificially low results in patients with liver disease. Blood Venous blood specimen / Unknown 04/11/2025 4:11 PM EST 04/11/2025 6:27 PM EST us Elizabeth Goncalves MD LAB BLOOD ORDERABLES Final Result [facility] [address] [place] [phone] * (ABNORMAL) Comprehensive Metabolic Panel (04/11/2025 4:11 PM EST) Only the most recent of3 resultswithin the time period is included. Sodium 143 135 - 145 mmol/L [facility] Potassium 4.2 3.3 - 5.1 mmol/L [facility] Chloride 106 96 - 108 mmol/L [facility] Carbon Dioxide 28 22 - 29 mmol/L [facility] Anion Gap 13 12 - 20 [facility] Urea Nitrogen (BUN) 18(H) 9 - 16 mg/dL [facility] Creatinine, Serum 1.22 0.5 - 1.4 mg/dL [facility] Estimated Glomerular Filt Rate 45 [facility] Comment:Chronic Kidney Disea se: Estimated GFR < 60 mL/min/[id number] Kidney Disease: Estimated GFR < 15 mL/min/1.73m2 Glucose 82 60 - 115 mg/dL [facility] Calcium 9.0 8.4 - 10.2 mg/dL [facility] Bilirubin, Total 0.2 0.0 - 1.0 mg/dL [facility] Aspartate Amino Transferase 33(H) 5 - 31 U/L [facility] Alanine Aminotransferase 18 0 - 31 U/L [facility] Total Protein 7.5 6.5 - 8.0 g/dL [facility] Albumin Level 4.5 3.5 - 5.0 g/dL [facility] Alkaline Phosphatase 80 39 - 117 U/L [facility] Blood Venous blood specimen / Unknown 04/11/2025 4:11 PM EST 04/11/2025 6:27 PM EST us Elizabeth Goncalves MD LAB BLOOD ORDERABLES Final Result [facility] [address] [place] [phone] * POCT Glucose (04/11/2025 3:23 PM EST) Glucose Blood, POC 97 60 - 200 mg/dL QC Media Lot # [id number] Lot# Expiration Date Blood Capillary blood specimen / Unknown 04/11/2025 3:23 PM EST Elizabeth Goncalves MD POINT OF CARE TEST EN TER/EDIT ORDERABLES Final Result * Albumin, Random Urine W/Creatinine (04/11/2025 12:03 PM EST) Creatinine, Urine 130.70 mg/dL [facility] Microalbumin Urine 10.0 mg/L [facility] Microalbum Creatinine Ratio Ur 7.6 <30 ug/mg cr [facility] Comment:Albumin/Creatinine R atio Reference Ranges: Normal: < 30 ug/mg creatinine Microalbuminuria: 30 - 300 ug/mg creatinineClinical Albuminuria: > 300 ug/mg creatinine Urine (Urine, Random) 04/11/2025 12:03 PM EST 04/13/2025 1:13 PM EST Elizabeth Goncalves MD LAB URINE ORDERABLES Final Result [facility] [address] [place] [phone] * SARS-CoV-2 RNA, Influenza A/B, and RSV RNA, Ql NAAT (04/04/2025 5:13 AM EST) Influenza A PCR NEGATIVE Negative [facility] Influenza B PCR NEGATIVE Negative [facility] Resp Syncy Virus RNA Qual PCR NEGATIVE Negative [facility] SARS COV2 PCR NEGATIVE Negative [facility] Comment:All test results mus t be [...] use by authorized laboratories.Testing performed on the Cepheid GeneXpert utilizingreal-time RT-PCR.All SARS CoV2 and positive influenza A/B results arereported to [facility]. 04/04/2025 5:13 AM EST 04/04/2025 5:19 AM EST us Generic External Data Provider LAB MICROBIOLOGY - GENERAL ORDERABLES Final Result [facility] [address] [place] [phone] * (ABNORMAL) CBC auto differential (04/04/2025 5:13 AM EST) Only the most recent of3 resultswithin the time period is included. White Blood Count 10.6 4.8 - 10.8 X10*3/uL [facility] Red Blood Count 5.18 4.20 - 5.50 X10*6/uL [facility] Hemoglobin 12.5 12.0 - 16.0 g/dl [facility] Hematocrit 38.8 37.0 - 47.0 % [facility] Mean Corpuscular Volume 74.9(L) 80.0 - 98.0 fL [facility] Mean Corpuscular Hemoglobin 24.1(L) 27.0 - 33.0 pg [facility] Mean Corpuscular HGB Conc 32.2 31.0 - 35.0 g/dl [facility] Red Cell Distribution Width 18.2(H) 11.0 - 16.0 % [facility] Platelet Count 255 160 - 400 X10*3/uL [facility] Mean Platelet Volume 10.5 9.4 - 12.3 fL [facility] Neutrophils Percent Auto 61.9 45 - 73 % [facility] Imm Gran Pct Auto 1.3(H) 0.0 - 0.4 % [facility] Lymphocytes Percent Auto 28.1 20 - 40 % [facility] Monocytes Percent Auto 6.6 2 - 11 % [facility] Eosinophils Percent Auto 1.7 0 - 4 % [facility] Basophils Percent Auto 0.4 0 - 2 % [facility] NRBC Pct Auto 0.0 0.0 - 0.2 /100WBC [facility] Neutrophils Absolute Auto 6.6 2.0 - 8.3 x10*3/uL [facility] Imm Gran Abs Auto 0.14(H) 0.00 - 0.03 X10*3/uL [facility] Lymphocytes Absolute Auto 3.0 1.2 - 4.9 X10*3/uL [facility] Monocytes Absolute Auto 0.7 0.1 - 1.2 X10*3/uL [facility] Eosinophils Absolute Auto 0.2 0.0 - 0.4 X10*3/uL [facility] Basophils Absolute Auto 0.0 0.0 - 0.2 X10*3/uL [facility] NRBC Abs Auto 0.000 0.0 - 0.012 X10*3/uL [facility] 04/04/2025 5:13 AM EST 04/04/2025 5:19 AM EST us Generic External Data Provider LAB BLOOD ORDERAB LES Final Result Performing Organization Address City/[facility]/ZIP Co de Phone Number [facility] [address] [place] [phone] * Creatine Kinase, Total (04/04/2025 5:13 AM EST) Creatine Kinase Total 50 26 - 140 U/L [facility] 04/04/2025 5:13 AM EST 04/04/2025 5:19 AM EST us Generic External Data Provider LAB BLOOD ORDERAB LES Final Result Performing Organization Address City/[facility] Co de Phone Number [facility] [address] [place] [phone] * Hold Green Gel (03/27/2025 12:37 AM EST) Hold Green Gel See Note [facility] Comment:Specimen held untest ed for 24 hours; Call to requestChemistry testing. 03/27/2025 12:3 7 AM EST 03/27/2025 12:42 AM EST Generic External Data Provider HISTORICAL/NON OR DERABLE LABS Final Result Performing Organization Address [facility] Phone Number [facility] [address] [place] [phone] * D Dimer High Sensitivity (03/27/2025 12:37 AM EST) D Dimer High Sensitivity 205 NG/ML [facility] Comment:D-DIMER HS REFERENCE RANGENote: Our [...] ORDERAB LES Final Result Performing Organization Address [facility] Phone Number [facility] [address] [place] [phone] * High Sensitivity Troponin I (03/26/2025 11:03 PM EST) Only the most recent of2 resultswithin the time period is included. TROPONIN I HIGH SENSITIVITY <2.7 <3.5 - 17.0 ng/L [facility] Comment:The [place] high sens itivity Troponin-I results should beused in conjunction with other diagnostic information suchas ECG, clinical observations and information, and patientsymptoms to aid in the diagnosis of [place]. 03/26/2025 11:0 3 PM EST 03/27/2025 12:34 AM EST Generic External Data Provider LAB BLOOD ORDERAB LES Final Result Performing Organization Address [facility] Co de Phone Number [facility] [address] [place] [phone] * NT-proBNP (03/26/2025 11:03 PM EST) Only the most recent of2 resultswithin the time period is included. NT-proBNP 123.9 <300 pg/mL [facility] Comment:Reference Range:Age Group (years) NT-proBNP (pg/ml) InterpretationAll <300 Negative: HF unlikelyFor patients presenting to the ED with clinical suspicion ofnew onset or worsening HF, see below:18 to <50 >299.9 to <450.0 Grayzone: [id number] to 75 >299.9 to <900.0 other causes of>75 >299.9 to <1800.0 NT-proBNP to <50 >449.9 Positive: HF [id number] >899.9>75 >1799.9Note: Elevated NT-proBNP levels should be interpreted inthe context of other clinical information. 03/26/2025 11:0 3 PM EST 03/27/2025 12:34 AM EST Generic External Data Provider LAB BLOOD ORDERAB LES Final Result Performing Organization Address [facility] Co de Phone Number [facility] [address] [place] [phone] * (ABNORMAL) Urinalysis, Complete, with Reflex to Culture (03/13/2025 11:28 PM EST) Only the most recent of2 resultswithin the time period is included. Color Urine Yellow [facility] Appearance Urine Clear [facility] PH 5.0 5.0 - 9.0 [facility] Glucose Urine UA Negative Negative mg/dL [facility] Urine Blood Negative Negative [facility] Specific [place] - Urine 1.020 1.005 - 1.025 [facility] Urine Protein Negative Neg-Trace mg/dL [facility] Urine Ketones Negative Negative mg/dL [facility] Nitrite Urine Negative Negative [facility] Leukocyte Esterase Urine Trace(A) Negative [facility] RBC Urine 0-2 0 - 2 /HPF [facility] Urine WBC 0-5 0 - 5 /HPF [facility] Urine Squamous Epithelial Cell 3-5 0 - 2 /HPF [facility] Urine Bacteria Trace None Seen [facility] Hyaline Casts, Urine 0-2 0 - 2 /LPF [facility] 03/13/2025 11:2 8 PM EST 03/13/2025 11:38 PM EST Narrative [facility] - 03/13/2025 11:53 PM EST [id number], Clean Catch us Generic External Data Provider LAB URINE ORDERAB LES Final Result [facility] [address] [place] [phone] * Drug Monitoring, Panel 1, Screen, Urine (03/13/2025 11:28 PM EST) Opiate Screen Urine Not Detected Not Detect [facility] Comment:Opiate cut-off is 30 0 ng/mL.Positive results are unconfirmed and should not be used fornon-medical purposes. Barbiturates, Urine Not Detected Not Detect [facility] Comment:Barbiturate cut-off is 200 ng/mL.Positive results are unconfirmed and should not be used fornon-medical purposes. Phencyclidine Screen Urine Not Detected Not Detect [facility] Comment:Phencyclidine cut-of f is 25 ng/mL.Positive results are unconfirmed and should not be used fornon-medical purposes. Amphetamine Screen Urine Not Detected Not Detect [facility] Comment:Amphetamine cut-off is 1000 ng/mL.Positive results are unconfirmed and should not be used fornon-medical purposes. Benzodiazepines Screen Urine Not Detected Not Detect [facility] Comment:Benzodiazepine cut-o ff is 200 ng/mL.Positive results are unconfirmed and should not be used fornon-medical purposes. Cocaine Screen Urine Not Detected Not Detect [facility] Comment:Cocaine cut-off is 3 00 ng/mL.Positive results are unconfirmed and should not be used fornon-medical purposes. Cannabinoid Screen Urine Not Detected Not Detect [facility] Comment:Cannabinoid cut-off is 50 ng/mL.Positive results are unconfirmed and should not be used fornon-medical purposes. Methadone Screen, Urine Not Detected Not Detect ng/mL [facility] Comment:Methadone cut-off is 300 ng/mL.Positive results are unconfirmed and should not be used fornon-medical purposes. FENTANYL URINE Not Detected Not Detect [facility] Comment:Fentanyl cut-off is 1 ng/mL.Positive results are unconfirmed and should not be used fornon-medical purposes. Oxycodone Urine Screen Not Detected Not Detect ng/mL [facility] Comment:Oxycodone cut-off is 100 ng/mL.Positive results are unconfirmed and should not be used fornon-medical purposes. Buprenorphine Screen Not Detected Not Detect ng/mL [facility] Comment:Buprenorphine cut-of f is 5 ng/mL.Positive results are unconfirmed and should not be used fornon-medical purposes. 03/13/2025 11:2 8 PM EST 03/13/2025 11:38 PM EST us Generic External Data Provider LAB URINE ORDERAB LES Final Result [facility] [address] [place] [phone] * (ABNORMAL) Urinalysis w/reflex microscopic (03/13/2025 11:28 PM EST) Color Urine Yellow [facility] Appearance Urine Clear [facility] PH 5.0 5.0 - 9.0 [facility] Glucose Urine UA Negative Negative mg/dL [facility] Urine Blood Negative Negative [facility] Specific [place] - Urine 1.020 1.005 - 1.025 [facility] Urine Protein Negative Neg-Trace mg/dL [facility] Urine Ketones Negative Negative mg/dL [facility] Nitrite Urine Negative Negative [facility] Leukocyte Esterase Urine Trace(A) Negative [facility] 03/13/2025 11:2 8 PM EST 03/13/2025 11:38 PM EST Narrative [facility] - 03/13/2025 11:46 PM EST [id number], Clean Catch us Generic External Data Provider LAB URINE ORDERAB LES Final Result Performing Organization Address City/[facility] Co de Phone Number [facility] [address] [place] [address] [phone] * Glucose, Whole Blood (03/04/2025 6:32 PM EDT) Only the most recent of2 resultswithin the time period is included. Glucose, Whole Blood 62 60 - 115 mg/dL [facility] Comment:METER #: [id number] 03/04/2025 6:32 PM EDT 03/04/2025 6:36 PM EDT us Generic External Data Provider LAB BLOOD ORDERAB LES Final Result Performing Organization Address [facility] de Phone Number [facility] [address] [place] [address] [phone] * XR Chest 1 View (02/22/2025 2:39 PM EDT) Anatomical Region Laterality Modality Chest Radiographic Delilah ging 02/22/2025 2:39 PM EDT Narrative 02/22/2025 2:56 PM EDT [address] [address] XRay Report Signed Patient: Lelo Plata MR# : [id number] : 1960 Acct:[id number] Age/Sex: 65 / F ADM Date: 02/22/25 Loc: HO.ED Attending Dr: Ordering Physician: Cortes Hammer MD Date of Service: 02/22/25 Procedure(s): XR chest 1V Accession Number(s): [id number] cc: Elizabeth Dunn MD; Cortes Hammer MD [...] 02/22/25 1453 DD/ 1439 TD/TT: 02/22/25 1445 Bass Fisher: Procedure Note Donotuseinterpreter, Image - 02/22/2025 [place] [address] XRay Report Signed Patient: Lelo Plata RMR# : [id number] : 1960cct:[id number] Age/Sex: 65 / FADM Date: 02/22/25 Loc: HO.ED Attending Dr: Ordering Physician: Cortes Hammer MD Date of Service: 02/22/25 Procedure(s): XR chest 1V Accession Number(s): [id number] cc: Elizabeth Dunn MD; Cortes Hammer MD [...] 02/22/25 1453 DD/ 1439 TD/TT: 02/22/25 1445 Bass Fisher: [facility] External Provider IMG XR PROCEDURES Final Result * (ABNORMAL) Basic Metabolic Panel (02/22/2025 2:22 PM EDT) Sodium 139 135 - 145 mmol/L [facility] Potassium 4.0 3.3 - 5.1 mmol/L [facility] Comment:Slight Hemolysis.Int erpret result with caution. Chloride 106 96 - 108 mmol/L [facility] Carbon Dioxide 22 22 - 29 mmol/L [facility] Anion Gap 15 12 - 20 [facility] Urea Nitrogen (BUN) 20(H) 9 - 16 mg/dL [facility] Creatinine, Serum 0.85 0.5 - 1.4 mg/dL [facility] Creatinine Clr Calc Pharmacy 76.0 [facility] Comment:Provided height and weight: 165.1 cm,92.2 kg.eGFR (calculated from the MDRD study equation) and eCrCl(calculated from the Cockcroft-Gault equation) are based ondifferent parameters and may not yield comparable results.If eCrCl result is absurd, please check patient'sheight/weight. Estimated Glomerular Filt Rate >60 [facility] Comment:Chronic Kidney Disea se: Estimated GFR < 60 mL/min/1.64t8Hfqziy Kidney Disease: Estimated GFR < 15 mL/min/1.73m2 Glucose 60 60 - 115 mg/dL [facility] Calcium 8.6 8.4 - 10.2 mg/dL [facility] 02/22/2025 2:22 PM EDT 02/22/2025 2:25 PM EDT us Generic External Data Provider LAB BLOOD ORDERAB LES Final Result Performing Organization Address [facility] Co de Phone Number [facility] [address] [place] [phone] * Prothrombin Time-INR (02/22/2025 1:22 PM EDT) Prothrombin Time 11.0 10.9 - 12.4 SEC [facility] INTERNATIONAL NORM RATIO 1.0 0.9 - 1.1 [facility] Comment:INTERNATIONAL NORMAL IZED RATIO (INR) [...] Final Result Performing Organization Address [facility] de Phone Number [facility] [address] [place] [phone] * (ABNORMAL) Uric acid (02/18/2025 1:14 PM EDT) Uric Acid 6.3(H) 2.4 - 5.7 mg/dL [facility] Blood Venous blood specimen / Unknown 02/18/2025 1:14 PM EDT 02/18/2025 4:31 PM EDT us Elizabeth Goncalves MD LAB BLOOD ORDERABLES Final Result Performing Organization Address City/[facility]/ZIP Co de Phone Number [facility] [address] [place] [phone] * BI Mammogram Screening Tomosynthesis Bilateral (02/15/2025 9:05 AM EDT) Anatomical Region Laterality Modality Breast Bilateral Mammography 02/15/2025 9:05 AM EDT Narrative 02/22/2025 9:47 AM EDT [facility] [address] [place] [address] Mammography Report Signed Patient: Lelo Plata MR# : [id number] : 1960 Acct:[id number] Age/Sex: 65 / F ADM Date: 02/15/25 Loc: HO.MAMMO Attending Dr: Elizabeth Goncalves MD Ordering Physician: Elizabeth Dunn MD Results: 1Negative Date of Service: 02/15/25 Follow Up: 1 Year From Orig inal Mammogram Procedure(s): MM tomosynthesis screening BI Accession Number(s): [id number] cc: Elizabeth Dunn MD Reason For Exam: [...] in OV> 02/22/25943 DD/ 4 TD/TT: 02/15/25927 Bass Fisher: Procedure Note Donotuseinterpreter, Image - 02/22/2025 [facility] [address] [place] [address] [place] [address] Mammography Report Signed Patient: Lelo Plata RMR# : [id number] : 1960cct:[id number] Age/Sex: 65 / FADM Date: 02/15/25 Loc: HO.MAMMO Attending Dr: Elizabeth Goncalves MD Ordering Physician: Elizabeth Dunn MDResults: 1Negative Date of Service: 02/15/25Follow Up: 1 Year From Orig inal Mammogram Procedure(s): MM tomosynthesis screening BI Accession Number(s): [id number] cc: Elizabeth Dunn MD Reason For Exam: [...] OV> 02/22/25 0944 DD/ 4 TD/TT: 02/15/25927 Bass Fisher: us Elizabeth Goncalves MD IMG BI PROCEDURES Fin al Result * XR Foot 3+ Views Right (02/12/2025 1:30 AM EDT) Anatomical Region Laterality Modality Lower Extremities, Foot Right Radiogra phic Imaging 02/12/2025 1:30 AM EDT Narrative 02/12/2025 1:32 AM EDT [address] [address] XRay Report Signed Patient: Lelo Plata R MR# : [id number] : 1960 Acct:[id number] Age/Sex: 64 / F ADM Date: 02/11/25 Loc: HO.ED Attending Dr: Ordering Physician: Perla Turner Date of Service: 02/12/25 Procedure(s): XR foot RT min 3V Accession Number(s): [id number] cc: Elizabeth Dunn MD; Perla Turner Reason [...] in OV> 02/12/25131 DD/ 9 TD/TT: 02/12/25129 Bass Fisher: Procedure Note Donotuseinterpreter, Image - 02/12/[address] [address] XRay Report Signed Patient: Lelo Plata RMR# : [id number] : 1960cct:[id number] Age/Sex: 64 / FADM Date: 02/11/25 Loc: HO.ED Attending Dr: Ordering Physician: Perla Turner Date of Service: 02/12/25 Procedure(s): XR foot RT min 3V Accession Number(s): [id number] cc: Elizabeth Dunn MD; Perla Turner Reason [...] in OV> 02/12/25131 DD/ 9 TD/TT: 02/12/25129 Bass Fisher: [facility] External Provider IMG XR PROCEDURES Edited Result - Final * CT Abdomen Pelvis w/ Contrast (02/11/2025 11:22 PM EDT) Anatomical Region Laterality Modality Body, Pelvis, Abdomen Computed T omography 02/11/2025 11:2 2 PM EDT Narrative 02/11/2025 11:24 PM EDT [place] [address] CT Scan Report Signed Patient: Lelo Plata MR# : [id number] : 1960 Acct:[id number] Age/Sex: 64 / F ADM Date: 02/11/25 Loc: HO.ED Attending Dr: Ordering Physician: Perla Turner Date of Service: 02/11/25 Procedure(s): CT abdomen pelvis w IV con Accession Number(s): [id number] cc: Elizabeth Dunn MD; Perla Turner Report Number: [id number]: Total DLP = 0.00 mGy-cm Reason for [...] in OV> 02/11/252322 DD/ 21 TD/TT: 02/11/252321 Bass Fisher: Procedure Note Donotuseinterpreter, Image - 02/11/[address] [place] [address] [address] Scan Report Signed Patient: Lelo Plata RMR# : [id number] : 1960cct:[id number] Age/Sex: 64 / FADM Date: 02/11/25 Loc: HO.ED Attending Dr: Ordering Physician: Perla Turner Date of Service: 02/11/25 Procedure(s): CT abdomen pelvis w IV con Accession Number(s): [id number] cc: Elizabeth Dunn MD; Perla Turner Report Number: [id number]: Total DLP = 0.00 mGy-cm Reason for [...] in OV> 02/11/252322 DD/ 21 TD/TT: 02/11/252321 Bass Fisher: [facility] External Provider IMG CT PROCEDURES Edited Result - Final * XR KUB and Upright 2 Views (02/11/2025 7:34 PM EDT) Anatomical Region Laterality Modality Radiographic Delilah ging 02/11/2025 7:34 PM EDT Narrative 02/11/2025 7:35 PM EDT [place] [address] XRay Report Signed Patient: Lelo Plata MR# : [id number] : 1960 Acct:[id number] Age/Sex: 64 / F ADM Date: 02/11/25 Loc: HO.ED Attending Dr: Ordering Physician: Perla Turner Date of Service: 02/11/25 Procedure(s): XR KUB Accession Number(s): [id number] cc: Elizabeth Dunn MD; Perla Turner Reason for Exam: constipation CLINICAL HISTORY: constipation Abdominal radiographs Comparison: CT/REG/MD/SR - CT ABDOMEN PELVIS W IV CON [...] in OV> 02/11/251933 DD/ 33 TD/TT: 02/11/251933 Bass Fisher: Procedure Note Donotuseinterpreter, Image - 02/11/[address] [address] XRay Report Signed Patient: Lelo Plata RMR# : [id number] : 2Acct:[id number] Age/Sex: 64 / FADM Date: 02/11/25 Loc: HO.ED Attending Dr: Ordering Physician: Perla Turner Date of Service: 02/11/25 Procedure(s): XR KUB Accession Number(s): [id number] cc: Elizabeth Dunn MD; Perla Turner Reason for Exam: constipation CLINICAL HISTORY: constipation Abdominal radiographs Comparison: CT/REG/MD/SR - CT ABDOMEN PELVIS W IV CON [...] in OV> 02/11/251933 DD/ 33 TD/TT: 02/11/251933 Bass Fisher: us [facility] External Provider IMG XR PROCEDURES Final Result * VASC US Lower Extremity Venous Duplex Bilateral (02/07/2025 9:39 PM EDT) 02/07/2025 9:39 PM EDT Narrative [facility] - 02/07/2025 9:41 PM EDT [address] [address] Ultrasound Report Signed Patient: Lelo Plata R MR# : [id number] : 1960 Acct:[id number] Age/Sex: 64 / F ADM Date: 02/07/25 Loc: HO.ED Attending Dr: Ordering Physician: Kaitlynn Wang Date of Service: 02/07/25 Procedure(s): US venous duplex LE Accession Number(s): [id number] cc: Elizabeth Dunn MD; Kaitlynn Wang Reason [...] in OV> 02/07/252139 DD/ 38 TD/TT: 02/07/252138 Bass Fisher: Procedure Note Donotuseinterpreter, Image - 02/07/[address] [address] Ultrasound Report Signed Patient: Lelo Plata RMR# : [id number] : 1960cct:[id number] Age/Sex: 64 / FADM Date: 02/07/25 Loc: HO.ED Attending Dr: Ordering Physician: Kaitlynn Wang Date of Service: 02/07/25 Procedure(s): US venous duplex LE BI Accession Number(s): [id number] cc: Elizabeth Dunn MD; Kaitlynn Wang Reason [...] in OV> 02/07/252139 DD/ 38 TD/TT: 02/07/252138 Bass Fisher: [facility] External Provider CV VASC ULAR PROCEDURES Final Result Performing Organization Address [facility] Co de Phone Number [facility] [address] [place] [address] [phone] * (ABNORMAL) Sed Rate by Modified Caleren (02/07/2025 8:52 PM EDT) Erythrocyte Sedimentation Rate 25(H) 0 - 20 MM/HR [facility] Comment:Patients with polycy themia and many hemoglobin abnormalitiesmay have depressed sed rates whereas patients with anemiamay have elevated sed rates. 02/07/2025 8:52 PM EDT 02/07/2025 8:57 PM EDT Generic External Data Provider LAB BLOOD ORDERAB LES Final Result Performing Organization Address City/[facility]/ZIP Co de Phone Number [facility] [address] [place] [phone] * (ABNORMAL) C-reactive Protein (02/07/2025 8:52 PM EDT) Pathologist [facility] C Reactive Protein 1.09(H) < or = 0.50 mg/dL [facility] 02/07/2025 8:52 PM EDT 02/07/2025 8:57 PM EDT Generic External Data Provider LAB BLOOD ORDERAB LES Final Result Performing Organization Address [facility] Co de Phone Number [facility] [address] [place] [phone] * Magnesium (02/07/2025 8:52 PM EDT) Pathologist [facility] Magnesium 2.1 1.6 - 2.6 mg/dL [facility] 02/07/2025 8:52 PM EDT 02/07/2025 8:57 PM EDT Generic External Data Provider LAB BLOOD ORDERAB LES Final Result Performing Organization Address [facility] de Phone Number [facility] [address] [place] [phone] * POCT Hgb A1c (01/26/2025 3:42 PM EDT) [facility] Hemoglobin A1C 5.6 4.0 - 5.7 % QC Media Lot # [id number] Lot# Expiration Date 311 Blood 01/26/2025 3:42 PM EDT Elizabeth Goncalves MD POINT OF CARE TEST EN TER/EDIT ORDERABLES Final Result * Colonoscopy (12/10/2022) Historical Provider HEALTH MAINTENANCE Final Result * HEPATITIS C AB W/REFL TO HCV RNA, QN, PCR (10/23/2020 10:08 AM EDT) [facility] HEPATITIS C ANTIBODY NON-REACT JOSE NON-REACT JOSE [facility] INDEX 0.01 <1.00 [facility] Comment: HCV antibody was non-reactive. There is no laboratory evidence of HCV infection. In most cases, no further action is required. However, if recent HCV exposure is suspected, a test for HCV RNA (test code 73348) is suggested. For additional information please refer to http://[employer].Keyade/faq/ONJ14a6 (This link is being provided for informational/ educational purposes only.) 10/23/2020 10:0 8 AM EDT us Elizabeth Goncalves MD HISTORICAL/NON ORDERA BLE LABS Final Result Performing Organization Address [facility] de Phone Number [facility] [address] * HIV 1/2 ANTIGEN/ANTIBODY,FOURTH GENERATION W/RFL (10/23/2020 10:08 AM EDT) HIV-1/2 ANTIGEN AND ANTIBODIES, 4TH GENERATION W/ REFLEX NON-REACT JOSE NON-REACT JOSE [facility] Comment: HIV-1 antigen and [...] purpose. For additional information please refer to http://education.[employer]/faq/EEA096 (This link is being provided for informational/ educational purposes only.) The performance of this assay has not been clinically validated in patients less than 2 years old. 10/23/2020 10:0 8 AM EDT us Elizabeth Goncalves MD LAB BLOOD ORDERABLES Final Result Performing Organization Address [facility] de Phone Number [facility] [address] [place] [address], from Last 3 Months or Most Recently Relevant to Health Maintenance Insurance [facility] C3 Care Teams Deliverer Merchandise Relationship Specialty Start Date End Date Elizabeth Dunn MD [address] [place] [address] PCP - General Family Medicine 03/17/18 Kai Bowden, MATT [address] [place] [address] Registered Nurse Family Medicine 02/08/25 Manuela Melendez 02/08/25 Thao Barnhart Vending Machine ServicerManager Commodities 02/07/23
--- OUTSIDE RECORDS SUMMARY | 2025-05-08 00:08 | XMS_ITS | Patient Health Record ---
Author Organization [facility] Address [address] [place] [address] Care Team Providers Care Claim Processing Specialist Name Role Phone SHAHRZAD ENRIQUE Primary Care Provider Fracisco Cruz [phone] Allergies Allergen (clinical drug ingredient) Drug/Non Drug [...] Problem Screening for malignant neoplasm of colon (932457142) Encounter for screening for malignant neoplasm of colon (Z12.11) Active confirmed Problem History of adenomatous polyp of colon (742151974) History of adenomatous polyp of colon (Z86.010) Active confirmed Problem Screening for malignant neoplasm of rectum (531240352) Encounter for screening for malignant neoplasm of rectum (Z12.12) Active confirmed Problem Family History of Cancer of Colon (Situation) (604066788) Family history of colon cancer (Z80.0) Active confirmed Problem Long-term current use of drug therapy (617627091) Long-term use of high-risk medication (Z79.899) Active confirmed Plan Of Treatment Pending Test Test Name Order Date GI BIOPSY 02/05/2016 Future Test Test Name Order Date COLONOSCOPY 10/31/2015 Insurance Providers Payer Name Payer Address Payer Phone Subscriber Number Group Number Insured Name Patient Relationship to Insured Coverage Start Date Coverage End Date [facility] [address] [place] [phone] [id number] MICHAEL SUGGS Self - patient is the insured [facility] [address] [place] [phone] [id number] MICHAEL SUGGS Self - patient is the insured Medical (General) History Medical History History ICD Code Colonoscopy 2004 and 2009 with small tub ular adenomas removed Depression/Anxiety Fibromyalgia Fluid retention Denies DC,DM,CVA,Lung disease,renal dise ase Surgical History Surgery Date(Month/Year) Laparoscopic gastric bypass in 2005 Breast reduction Panniculectomy Hysterectomy with left oophorectomy Neck surgery--for a disc
--- OUTSIDE RECORDS SUMMARY | 2025-05-08 00:08 | XMS_ITS | Encounter Summary ---
Author Organization [employer] Address [address] [place] [address] [address] [place] [address] Care Team Providers Care House Visitor Name Role Phone Elizabeth Dunn MD Primary Care Provide r Kai Bowden RN Unavailable [phone] Manuela Melendez Unavailable Reason for Visit * Reason Onset Date Comments Med Refill 12/17/2022 Encounter Details Date Type Department Care Team (Late st Contact Info) Description 12/17/2022 Telephone [facility] [address] [place] [address] Elizabeth Dunn MD [address] [place], [place] [phone] Med Refill Social History Tobacco Use Types [...] Description 06/07/2025 2:30 PM EST Office Visit [facility] OPTOM[facility] [address] [place], [place] [phone] Mulu Osman, OD [address] [place] [address] documented as of this encounter Visit Diagnoses Not on filedocumented in this encounter Additional Health Concerns Assessment Noted Time PHQ-9 Depression Total Score: 0 08/03/19 23 3:13 PM EDT documented as of this encounter Care Teams House Visitor Relationship Specialty Start Date End Date Elizabeth Dunn MD [address] [place], [place] [phone] PCP - General Family Medicine 03/17/18 Kai Bowden, MATT [address] [place] [address] Registered Nurse Family Medicine 02/08/25 Manuela Melendez 02/08/25 Thao Barnhart Plastic Parts DesignerFilter Operator 02/07/23 documented as of this encounter
--- OUTSIDE RECORDS SUMMARY | 2025-05-08 00:08 | XMS_ITS | Encounter Summary ---
Author Organization [employer] Address [address] [place] [address] [address] [place] [address] Care Team Providers Care Last Repairer Helper Name Role Phone Elizabeth Dunn MD Primary Care Provide r Kai Bowden RN Unavailable [phone] Manuela Melendez Unavailable Reason for Visit * Reason Onset Date Comments Med Refill 12/04/2022 Encounter Details Date Type Department Care Team (Late st Contact Info) Description 12/04/2022 Telephone [facility] [address] [place] [address] Elizabeth Dunn MD [address] [place], [place] [phone] Med Refill Social History Tobacco Use Types [...] encounter Miscellaneous Notes * Telephone Encounter - aSyda Al - 12/04/2022 9:55 AM EDT Tc from pt requesting medication refill on oxyCODONE-acetaminophen (Percocet) 10-325 MG tablet documented in this encounter Plan of Treatment Upcoming Encounters Date Type Department Care Team (Late st Contact Info) Description 06/07/2025 2:30 PM EST Office Visit [facility] OPTOMETRY [address] [place], [place] [phone] Mulu Osman, OD [address] [place] [address] documented as of this encounter Visit Diagnoses Not on filedocumented in this encounter Additional Health Concerns Assessment Noted Time PHQ-9 Depression Total Score: 0 08/03/19 23 3:13 PM EDT documented as of this encounter Care Teams Last Repairer Helper Relationship Specialty Start Date End Date Elizabeth Dunn MD [address] [place], [place] [phone] PCP - General Family Medicine 03/17/18 Kai Bowden, MATT [address] [place] [address] Registered Nurse Family Medicine 02/08/25 Manuela Melendez 02/08/25 Thao Barnhart Cashier And SalespersonBusiness Support 02/07/23 documented as of this encounter
[2025-05-08 00:16] VITALS: BP 147/77; PULSE 63; RESP 16; TEMP 36.9; O2SAT 97
== END 2025-05-08 00:17 | disposition home or self-care (01) ==
PROVIDERS: Emergency Provider Student in an Organized Health Care Education/Training Program; PCP Internal Medicine
DX: M79.10 Myalgia, unspecified site (principal); E11.9 Type 2 diabetes mellitus without complications; Z03.818 Encounter for observation for suspected exposure to other biological agents ruled out; I10 Essential (primary) hypertension; E78.5 Hyperlipidemia, unspecified; J45.909 Unspecified asthma, uncomplicated; Z79.899 Other long term (current) drug therapy
CPT/HCPCS: 80048; 85025; 87502; 87635; 99283; 99284